=== PATIENT | male | born 1960 | race Caucasian/White ===

== ENCOUNTER → 2016-08-22 | Outpatient (CLI) | payer MEDICARE, MEDICAID ==
[~2016-08-22] MED LIST: ACTO45TA OR; AMAR1TAB PO; AMIT25TA PO; ASPI1TAB PO; ASPI81TA83; ATOR1TAB19 PO; BUPR1TAB17 PO; CENTTAB47 PO; COLC0.6T OR; COUM2.5T11 PO; ENAL20TA OR; ENAL20TA PO; FLEXERIL OR; HYDR25TAB PO; INSULANT SC; K-TA10TA OR; LEVOTAB10 PO; LORATADINE OR; MAGN500T2 OR; METF500T4 OR; MIRA3350 PO; MOBIC PO; NAPR500T2 PO; NEUR600T OR; NEXI40CA PO; NIAS1000 PO; OXYC10TA12 PO; OXYC10TA97 OR; PERC5TAB6 PO; PERC5TAB8 OR; PRIL20CA OR; PRIM50TA6 PO; TYLE325T5 PO; VITA1CAP7 PO; ZYLO300T4 PO
[2016-08-22 14:30] LABS: ALBUMIN 4.2 GM/DL (3.2-5.2); ALBUMIN/GLOBULIN RATIO 1.75 (1.00-1.93); ALKALINE PHOSPHATASE 103 U/L (45-117); ALT/SGPT 34 U/L (12-78); ANION GAP 8 MEQ/L (8-16); AST/SGOT 21 U/L (15-37); BILIRUBIN,TOTAL 0.4 MG/DL (0.2-1.0); BLOOD UREA NITROGEN 14 MG/DL (7-18); CALCIUM LEVEL 9.4 MG/DL (8.5-10.1); CARBON DIOXIDE LEVEL 27 MEQ/L (21-32); CHLORIDE LEVEL 101 MEQ/L (98-107); CHOLESTEROL LEVEL 128 MG/DL (<200); CREATININE FOR GFR 1.28 MG/DL (0.70-1.30); GLOMERULAR FILTRATION RATE > 60.0 (>56); GLUCOSE, FASTING 220 MG/DL (70-105); POTASSIUM SERUM 4.8 MEQ/L (3.5-5.1); SODIUM LEVEL 136 MEQ/L (136-145); TOTAL PROTEIN 6.6 GM/DL (6.4-8.2); TRIGLYCERIDES LEVEL 469 MG/DL (<150); URIC ACID 6.1 MG/DL (3.5-7.2)
== END ==
LOC: M LAB 13:14
PROVIDERS: ATTEND Emergency Medicine
DX: E11.40 Type 2 diabetes mellitus with diabetic neuropathy, unspecified (principal); I10 Essential (primary) hypertension; E78.5 Hyperlipidemia, unspecified; E55.9 Vitamin D deficiency, unspecified; M10.9 Gout, unspecified

== ENCOUNTER 2016-12-14 13:35 | Inpatient (IN) | payer MEDICARE, MEDICAID ==
[~2016-12-14] VITALS: Ht 195.6 cm; Wt 131.7 kg
[~2016-12-14 13:35] MED LIST changes: +ASPI81TA85 PO; -BUPR1TAB17 PO; +BUPR1TAB53 PO; +BYDU1INJ SC; +CELE1CAP9 PO; -COUM2.5T11 PO; +COUM2.5T17 PO; +HYDR12.55 PO; +INVO300T PO; +METF500T4 PO; -NAPR500T2 PO; +NAPR500T3 PO; +OXYC15TA76 PO; +OXYC60TA8 PO; +PERC5TAB12 PO; -PERC5TAB6 PO
[2016-12-14] MEDS ORDERED: OXYC15TA76 PO (13:51)
[2016-12-14] MEDS ORDERED: MORPHINE 4 MG/ML 1ML SYRINGE IV ONE (14:30)
[2016-12-14 15:12] LABS: BASO # 0.1 K/mm3 (0.0-0.2); BASO % 0.4 % (0.0-1.0); EOS # 0.2 K/mm3 (0.0-0.50); EOS % 1.2 % (0.0-3.0); LARGE UNSTAINED CELL # 0.5 K/mm3 (0.0-0.4); LARGE UNSTAINED CELL % 2.8 % (0.0-4.0); LYMPH # 1.3 K/mm3 (1.5-4.5); LYMPH % 7.4 % (24.0-44.0); MEAN CORPUSCULAR HEMOGLOBIN 28.2 pg (27.0-33.0); MEAN CORPUSCULAR HGB CONC 33.3 g/dl (32.0-36.5); MEAN CORPUSCULAR VOLUME 84.6 fl (80.0-96.0); MONO # 0.9 K/mm3 (0.0-0.8); MONO % 5.4 % (0.0-5.0); NEUTROPHILS # 13.9 K/mm3 (1.8-7.7); NEUTROPHILS % 82.8 % (36.0-66.0); PLATELET COUNT, AUTOMATED 531 k/mm3 (150-450); RED CELL DISTRIBUTION WIDTH 16.5 % (11.5-14.5); WHITE BLOOD COUNT 16.8 K/mm3 (4.0-10.0)
[2016-12-14 15:31] LABS: CREATININE FOR GFR 2.31 MG/DL (0.70-1.30); ERYTHROCYTE SEDIMENTATION RATE 56 mm/hr (0-20); GLOMERULAR FILTRATION RATE 31.3 (>56); POTASSIUM SERUM 3.4 MEQ/L (3.5-5.1)
[2016-12-14] MEDS ORDERED: CEFTAROLINE FOSAMIL 600 MG in D5W MINI-BAG PLUS 50 ML IV ONE (16:15)
[2016-12-14] MEDS ORDERED: PIPERACILLIN/TAZOBACTAM SOD 3.375 GM in D5W MINI-BAG PLUS 50 ML IV ONE (16:15)
[2016-12-14 16:45] LABS: FREE T4 1.59 NG/DL (0.76-1.46)
[2016-12-14] MEDS ORDERED: METF10004 PO (16:59)
[2016-12-14] MEDS ORDERED: OXYC10TA12 PO (16:59)
[2016-12-14] MEDS ORDERED: HYDR25TAB PO (16:59)
[2016-12-14] MEDS ORDERED: GLIM4TAB PO (16:59)
[2016-12-14] MEDS ORDERED: DEXTROSE 50% 50 ML SYRINGE IV PRN (18:30)
[2016-12-14] MEDS ORDERED: GLUCOSE 4 GM CHEW TABLET PO PRN (18:30)
[2016-12-14] MEDS ORDERED: ONDANSETRON 4MG/2ML VIAL (J2405) IV PRN (18:30)
[2016-12-14] MEDS ORDERED: GLUCAGON FOR INJ 1 MG VIAL (J1610) SC PRN (18:30)
--- NOTE | 2016-12-14 19:01 | HPEPDOC ---
General Date of Admission 12/14/16 Chief Complaint The patient is a 56-year-old male Presented to the ER with left foot pain after he stepped on a wire hayder. History of Present Illness Patient is a 56 year old male with a PMHx of NIDDM2, HTN, DLP, Depression / Anxiety, Gout and Neuropathy who presented to the ER after he didnt have improvement of his left foot cellulitis. Patient noted that on he was working in the garage and had stepped on a medal hayder. He didnt notice until he heard the sound of metal scrapping on concrete. After that point he removed the metal hayder and soaked his foot in Epson salt. Over the next few days from Thursday to Thursday he had worsening of the pain. He noticed that the foot was red, swollen, tender and draining. He noticed that the pain was progressing up his leg up to his groin area. He noticed pain in his groin as well. Patient has noted that he has been having fever and chills at home, but never measured the temperature. He notes nausea and dry heaves, but no vomiting. He has had poor oral intake and constipation. He has tried taking Ibuprofen for the pain without any relief. He denies chest pain, shortness of breath, palpitations, or abdominal pain. Home Medications Scheduled (Celecoxib) 200 Mg Cap, 200 MG PO DAILY, (Reported) Allopurinol (Zyloprim) 300 Mg Tab, 300 MG PO DAILY, (Reported) Amitriptyline HCl (Amitriptyline HCl) 25 Mg Tab, 25 MG PO QHS, (Reported) Aspirin (Aspir-81) 81 Mg Tab, 81 MG PO DAILY, (Reported) Atorvastatin Calcium (Atorvastatin Calcium) 10 Mg Tab, 10 MG PO QHS, (Reported) Bupropion HCl (Bupropion HCl ER) 150 Mg Tab, 150 MG PO DAILY, (Reported) Canagliflozin (Invokana) 300 Mg Tab, 300 MG PO DAILY, (Reported) Cholecalciferol (Vitamin D3 Maximum Streng) 5,000 Unit Cap, 5,000 UNIT PO DAILY, (Reported) Enalapril Maleate (Enalapril Maleate) 20 Mg Tab, 20 MG PO DAILY, (Reported) Esomeprazole Magnesium Trihydr (Nexium) 40 Mg Cap, 40 MG PO DAILY, (Reported) Glimepiride (Glimepiride) 4 Mg Tab, 4 MG PO DAILY, (Reported) Hydrochlorothiazide (Hydrochlorothiazide) 25 Mg Tab, 25 MG PO DAILY, (Reported) Levocetirizine Hydrochloride (Levocetirizine Dihydrochl) 5 Mg Tab, 5 MG PO DAILY , (Reported) Metformin Hydrochloride (Metformin HCl) 1,000 Mg Tab, 1,000 MG PO BID, (Reported ) Multivitamins (Centrum) 1 Tab Tab, 1 TAB PO DAILY, (Reported) Niacin (Niaspan) 1,000 Mg Tab, 1,000 MG PO QHS, (Reported) Oxycodone HCl (Oxycontin) 60 Mg Tab, 60 MG PO BID, (Reported) Primidone (Primidone) 50 Mg Tab, 200 MG PO BID, (Reported) Scheduled PRN Oxycodone HCl (Oxycodone HCl) 10 Mg Tab, 10 MG PO Q4H PRN for PAIN, (Reported) Allergies Coded Allergies: Povidone Iodine (Verified Allergy, Unknown, 10/06/16) Past Medical History Medical History NIDDM2, HTN, DLP, Depression . Anxiety, Gout and Neuropathy Surgical History Right toe amputation (03/2016) Right knee replacement (2017) Family History - Non-contributory Social History - Denies the use of alcohol or tobacco; Smokes marijuana occasionally - Denies recent travel or sick contacts - Lives alone - Disability Review of Symptoms Other systems Constitutional: Unsure of weight loss, Reports poor appetite, Recent trauma with metal hayder Eyes: No visual changes or eye pain Ears, Nose, Throat: Denies nose bleeds, or difficulty swallowing Cardiovascular: Denies chest pain, sweating, or orthopnea Respiratory: Denies cough, wheezing, or shortness of breath GI: Positive nausea, No vomiting, abdominal pain, diarrhea or constipation : Denies pain with urination or frequency Musculoskeletal: Denies joint pain or swelling Neuro / Psych: Denies muscle weakness or sensory loss Skin: No skin rashes noted All other review of systems negative; otherwise stated in history of present illness Screening: - Colonoscopy never done Vital Signs - Vitals: BP 123/63, HR 102, RR 18, Sat 96%RA, Temp 97.4F - General: Lying in bed, No acute distress, Speaking in full sentences, AAOx3 - HEENT: NC, AT, PERRLA, EOMI - CVS: RRR, +S1S2, - Lungs: Fair air entry bilaterally, No appreciable wheezing / rhonchi / crackles - Abdomen: Soft, Non-distended, Non-tender, + Bowel sounds x 4, Obese - Extremities: No lower extremity edema - Neuro: No focal motor or sensory deficit - Skin: Left foot in dressing, surrounding erythema, warmth, tenderness and drainage Laboratory Data Labs 24H Laboratory Tests 2 12/14/16 14:59: White Blood Count 16.8H, Red Blood Count 5.42, Hemoglobin 15.3, Hematocrit 45.8 , Mean Corpuscular Volume 84.6, Mean Corpuscular Hemoglobin 28.2, Mean Corpuscular Hemoglobin Concent 33.3, Red Cell Distribution Width 16.5H, Platelet Count 531H, Neutrophils (%) (Auto) 82.8H, Lymphocytes (%) (Auto) 7.4L, Monocytes (%) (Auto) 5.4H, Eosinophils (%) (Auto) 1.2, Basophils (%) (Auto) 0.4 , Neutrophils # (Auto) 13.9H, Lymphocytes # (Auto) 1.3L, Monocytes # (Auto) 0.9H , Eosinophils # (Auto) 0.2, Basophils # (Auto) 0.1, Large Unclassified Cells % 2.8, Large Unclassified Cells # 0.5H, Erythrocyte Sedimentation Rate 56H, Anion Gap 9, Glomerular Filtration Rate 31.3L, Osmolality 294, Blood Urea Nitrogen 42H , Creatinine 2.31H, Sodium Level 126L, Potassium Level 3.4L, Chloride Level 89L , Carbon Dioxide Level 28, Calcium Level 10.0, C-Reactive Protein, Quantitative 18.10H, Thyroid Stimulating Hormone (TSH) 0.788, Free Thyroxine 1.59H 12/14/16 16:23: Urine Random Osmolality 483L, Urine Random Creatinine 229.0, Urine Random Sodium 19 CBC/BMP Laboratory Tests 12/14/16 14:59 Red Blood Count 5.42, Mean Corpuscular Volume 84.6, Mean Corpuscular Hemoglobin 28.2, Mean Corpuscular Hemoglobin Concent 33.3, Red Cell Distribution Width 16.5 H, Neutrophils (%) (Auto) 82.8 H, Lymphocytes (%) (Auto) 7.4 L, Monocytes ( %) (Auto) 5.4 H, Eosinophils (%) (Auto) 1.2, Basophils (%) (Auto) 0.4, Neutrophils # (Auto) 13.9 H, Lymphocytes # (Auto) 1.3 L, Monocytes # (Auto) 0.9 H, Eosinophils # (Auto) 0.2, Basophils # (Auto) 0.1, Calcium Level 10.0 Microbiology Microbiology 12/14/16 Blood Culture, Received Pending 12/14/16 Blood Culture, Received Pending 12/14/16 Gram Stain, Received Pending 12/14/16 Wound Culture, Received Pending Plan / VTE VTE Prophylaxis Ordered?: Yes Plan Plan Left foot cellulitis, possible osteomyelitis after recent trauma with puncture with metal hayder - Presented to ER after he failed to improve at home - Punctured on and then began to have fever / chills and progressing cellulitis - Physical with left inguinal lymphadenopathy, cellulitis of left foot - Elevated WBC, Will check lactic acid level - Elevated ESR / CRP - Will get MRI of foot to evaluate for osteomyelitis - Will start Vancomycin and Zosyn - Dr. Izaguirre has evaluated patient in ER; has provided bedside debridement Hyponatremia; mild likely 2/2 hypotonic hypovolemia - UOsm low, U Na of 19; FENa of 0.2% - will hold hydrochlorothiazide - c/w IV fluid hydration - Will check BNP at 10PM Hypokalemia - will supplement Acute kidney injury likely 2/2 pre-renal etiology, less likely intra-renal etiology - FENa of 0.2% - Avoid nephrotoxic medications - Will give IV fluid hydration with NS NIDDM2 - c/w ISS HTN - will hold enalapril (re: JANIE) and hydrochlorthiazide (re: low Na) - will start amlodipine 5mg daily DLP - c/w atorvastatin Depression / Anxiety - c/w Bupropion Gout - c/w allopurinol Neuropathy GERD - c/w Esomeprazole DVT prophylaxis - Will start Heparin BENNETT RAYO MD Dec 14, 2016 19:01
[2016-12-14] MEDS: ACETAMINOPHEN TAB 650MG DOSE (2X325MG) PO PRN (19:07)
[2016-12-14] MEDS ORDERED: POTASSIUM CHLORIDE 10 MEQ SR TABLET PO ONE (20:00)
[2016-12-14] MEDS ORDERED: VANCOMYCIN HCL 1,000 MG, VIAL MATE ADAPTER 1 EACH in D5W 250 ML IV ONE (20:00)
--- NOTE | 2016-12-14 20:55 | REP ---
LEFT FOOT SERIES: Four views of the left foot were performed. There is a puncture wound in the left heel. A tiny amount of air is seen inferior to the calcaneus in the soft tissues. 2 mm density in a subcutaneous location in the soft tissue of the heel may represent a tiny soft tissue foreign body, otherwise chronic changes are seen in the bones. There are old fractures of the 4th and 5th proximal phalanges. Moderate degenerative changes are seen at the first metatarsal phalangeal joint with subchondral sclerosis and large spurs. Intertarsal joint and tarsal sized metatarsal joint degenerative change is seen. There is mild inferior calcaneal spurring. IMPRESSION: A tiny amount of air in the soft-tissues of the heel. Possible tiny 2 mm subcutaneous foreign body in the soft tissues of the heel. Chronic degenerative changes as above with old fractures of the 4th and 5th proximal phalanges. Signed by Sesar Gatica MD 12/15/2016 01:06 P
[2016-12-14] MEDS ORDERED: oxyCODONE 20 MG CR TAB PO SCH (21:00)
--- NOTE | 2016-12-14 22:10 | REPUSA ---
Clinical statement: rule out osteomyelitis. Technique: Multiecho multiplanar MRI images of the left foot were obtained without administration of contrast. Comparison: none. Findings: There are numerous heterogeneous low intensity lesions throughout the calcaneus on T1 weigh zoey imaging, which demonstrate surrounding edema on T2 weighted imaging. Surrounding soft tissue agustin a is noted, without a focal loculated fluid collection. The articular cartilage as well maintained. T here is no evidence of a joint effusion. The surrounding musculature is within normal limits. Impression: Signal abnormality within the calcaneus is highly suspicious for osteomyelitis. Surroundi ng soft tissue inflammation is suspicious for cellulitis. A report will be called by our napping machine operator regarding these findings.
[2016-12-14 22:45] VITALS: BP 108/58
[2016-12-14] MEDS: HumaLOG INSULIN (NovoLOG) PER UNIT SC SCH (22:55)
[2016-12-14] MEDS: HEPARIN SOD (PORCINE) 5000 UNITS/ML VIAL SC SCH (23:18)
[2016-12-14] MEDS: AMITRIPTYLINE 25 MG TAB PO SCH (23:18)
[2016-12-14] MEDS: ATORVASTATIN 10 MG TAB PO SCH (23:18)
[2016-12-14] MEDS: NS 1,000 ML IV SCH (23:19)
[2016-12-14] MEDS: PRIMIDONE 50 MG TAB PO SCH (23:24)
[2016-12-15] MEDS: PIPERACILLIN/TAZOBACTAM SOD 3.375 GM in D5W MINI-BAG PLUS 50 ML IV SCH ×4 (00:06→23:01)
[2016-12-15] MEDS: oxyCODONE 15 MG CR TAB PO SCH ×3 (00:06→20:46)
--- NOTE | 2016-12-15 00:20 | REPUSA ---
CLINICAL HISTORY: Edema. COMMENTS: Real time sonography with duplex doppler of the left lower extremity was performed with attention to the major deep venous structures. Evaluation reveals the left common femoral, superficial femoral and popliteal veins to be completely compressible without intraluminal thrombus. There is normal spontaneous phasic flow and augmentation. The greater saphenous/common femoral vein junction is patent. No reflux was noted. IMPRESSION: No evidence of DVT in left lower extremity.. Thank you for your kind referral of this patient.
--- NOTE | 2016-12-15 00:38 | PHACANCOPD ---
PHARMACY VANCOMYCIN DOSING Pt Demographics Demographics Patient Age:56 , Weight:134.090 , Gender: male Adjusted Body Weight Date: 12/15/16, Adjusted Body Weight: [107] Kg Vancomycin Vancomycin indication: L.FOOT CELLULITIS([facility]SA COVERAGE) Vancomycin Target Ranges: 15-20 mcg/ml Vancomycin Load Y/N: No Load Dose Date Time Vancomycin Load Dose: Date: Time: Vancomycin Dose Date: 12/15/16. Current Vancomycin Dose: [1 GM IV Q12@06] Intermittent Dosing?: No Labs Labs Laboratory Tests 12/14/16 14:59 Red Blood Count 5.42, Mean Corpuscular Volume 84.6, Mean Corpuscular Hemoglobin 28.2, Mean Corpuscular Hemoglobin Concent 33.3, Red Cell Distribution Width 16.5 H, Neutrophils (%) (Auto) 82.8 H, Lymphocytes (%) (Auto) 7.4 L, Monocytes ( %) (Auto) 5.4 H, Eosinophils (%) (Auto) 1.2, Basophils (%) (Auto) 0.4, Neutrophils # (Auto) 13.9 H, Lymphocytes # (Auto) 1.3 L, Monocytes # (Auto) 0.9 H, Eosinophils # (Auto) 0.2, Basophils # (Auto) 0.1, Calcium Level 10.0 Micro Microbiology 12/14/16 Blood Culture, Received Pending 12/14/16 Blood Culture, Received Pending 12/14/16 Gram Stain, Received Pending 12/14/16 Wound Culture, Received Pending Creatinine Clearance Date:12/15/16. Creatinine Clearance: [54].CALCULATED Pending Labs VANCOMYCIN TROUGH DUE 12/15@1700 Assessment and Plan Maintaining Current Dose?: Yes Reason for dose change: No Dose Change Pharmacist Note Pharmacist Note Date: 12/15/16. Pharmacist note:56 YOM :134 KG;77" SCR=2.31(CALCULATED crcl=54) Admitted w/l foot cellulitis/possible osteomyelitis following puncture wound/ cellulitis.treated w/pip/tazo 3.375 IV Q8H and Vancomycin per Pharmacy consult; gave Vanco 1 GM @2230 12/14,then will continue with Vancomycin 1 GM IV Q12H; first trough is ordered for 12/15@1700;will continue to follow levels and labs SIMIN [facility] Dec 15, 2016 00:38
[2016-12-15 05:25] VITALS: BP 91/53
[2016-12-15 05:45] LABS: BASO % 0.3 % (0.0-1.0); EOS # 0.4 K/mm3 (0.0-0.50); EOS % 2.2 % (0.0-3.0); LARGE UNSTAINED CELL # 0.5 K/mm3 (0.0-0.4); LARGE UNSTAINED CELL % 3.3 % (0.0-4.0); LYMPH # 2.4 K/mm3 (1.5-4.5); LYMPH % 11.9 % (24.0-44.0); MEAN CORPUSCULAR HEMOGLOBIN 28.5 pg (27.0-33.0); MEAN CORPUSCULAR HGB CONC 34.1 g/dl (32.0-36.5); MEAN CORPUSCULAR VOLUME 83.4 fl (80.0-96.0); MONO % 6.3 % (0.0-5.0); NEUTROPHILS % 75.9 % (36.0-66.0); PLATELET COUNT, AUTOMATED 475 k/mm3 (150-450); RED CELL DISTRIBUTION WIDTH 16.7 % (11.5-14.5); WHITE BLOOD COUNT 15.8 K/mm3 (4.0-10.0)
[2016-12-15 06:00] VITALS: BP 105/58
[2016-12-15 06:03] LABS: ALBUMIN 2.4 GM/DL (3.2-5.2); ALBUMIN/GLOBULIN RATIO 0.67 (1.00-1.93); BILIRUBIN,TOTAL 1.1 MG/DL (0.2-1.0); CALCIUM LEVEL 9.4 MG/DL (8.5-10.1); CREATININE FOR GFR 3.12 MG/DL (0.70-1.30); GLOMERULAR FILTRATION RATE 22.1 (>56); MAGNESIUM LEVEL 2.5 MG/DL (1.8-2.4); POTASSIUM SERUM 3.5 MEQ/L (3.5-5.1)
[2016-12-15] MEDS: VANCOMYCIN HCL 1,000 MG, VIAL MATE ADAPTER 1 EACH in D5W 250 ML IV SCH ×2 (06:27→18:00)
[2016-12-15] MEDS: HEPARIN SOD (PORCINE) 5000 UNITS/ML VIAL SC SCH ×3 (06:27→21:54)
[2016-12-15] MEDS: ACETAMINOPHEN TAB 650MG DOSE (2X325MG) PO PRN ×2 (06:28→18:13)
[2016-12-15] MEDS ORDERED: ALLOPURINOL 300 MG TAB PO SCH (09:00)
[2016-12-15] MEDS: amLODIPine 5 MG TAB PO SCH (09:00)
[2016-12-15] MEDS: HumaLOG INSULIN (NovoLOG) PER UNIT SC SCH ×4 (09:09→20:39)
[2016-12-15] MEDS: PRIMIDONE 50 MG TAB PO SCH ×2 (09:14→20:47)
[2016-12-15] MEDS: ASPIRIN 81 MG ENTERIC TAB PO SCH (09:15)
[2016-12-15] MEDS: PANTOPRAZOLE 40MG TAB (PROTONIX) PO SCH (09:15)
[2016-12-15] MEDS: VITAMIN D 1,000 INTERNATIONAL UNITS TABLET PO SCH (09:15)
--- NOTE | 2016-12-15 13:37 | CR ---
DATE OF CONSULTATION: 12/14/2016 Patient presents to the emergency room with complaints of infection in wounds to his left foot. He states on he was in the garage working on a vehicle and noticed that he had blood dripping. He states he had stepped on a metal wire, apparently multiple times, did not have much pain at the time due to his neuropathy, but states that over the last few days has noticed increasing pain, fevers, and chills. He presented to the emergency room today for evaluation. PAST MEDICAL HISTORY: Significant for diabetes with peripheral neuropathy. History of gout. Benign prostatic hypertrophy (BPH). Hypertension. Hyperlipidemia. Acid reflux. Osteoarthritis (OA). History of tobacco use. ALLERGIES: 1. BETADINE. PAST SURGICAL HISTORY: Tonsillectomy. Hernia repair. History of great toe amputation on his right side. REVIEW OF SYSTEMS: Patient admits to having fevers and chills outpatient. He has been afebrile since presenting to the emergency room. Current temperature was 97.4, pulse was 102, respiratory rate 18, blood pressure 123/64, pulse oximetry 96% on room air. LABS ON ADMISSION: White blood cells was 16.8, ESR 56, CRP is 18.10. X-rays were taken. There was no significant signs of any bony erosion. No obvious foreign bodies in the deep space. No soft tissue gas noted. Question foreign body at the surface of the skin. LOWER EXTREMITY EXAMINATION: Pulses are palpable. There is erythema extending from the left heel up to approximately the posterior ankle with tenderness with deep squeeze. He does have diminished sensation to his foot. On debridement of the punctate wounds, no purulence is noted. There are some small stones and likely sock debris in the superficial portion of the skin. No malodor, no necrosis, no crepitance is noted. ASSESSMENT: This is a 56-year-old diabetic male with cellulitis of the left heel following puncture wounds. TREATMENT: Patient is presently on Teflaro and Zosyn. Would continue present antibiotics. A culture was taken in the emergency room. Will await speciation part and antibiotic de-escalation. He is planned for admission to the hospitalist service. Will continue to follow. If the patient does not improve, may consider MRI to rule out deep space infection.
[2016-12-15 14:00] VITALS: BP 122/65
--- NOTE | 2016-12-15 14:11 | IPNPDOC ---
Subjective Date Seen The patient was seen on 12/15/16. Subjective Chief Complaint/HPI The patient is a 56-year-old male admitted with a reason for visit of Acute Kidney Injury,Cellulitis Of Left Foot. Events since last encounter no new complaints, does not have any pain in the foot, no fever or chills, no nausea or vomiting or diarrhea, no abdominal pain , no chest pain or SOb Objective Physical Examination General Exam: Positive: Alert, Cooperative, No Acute Distress Eye Exam: Positive: PERRLA, Conjunctiva & lids normal, EOMI, Negative: Sclera icteric ENT Exam: Positive: Atraumatic, Mucous membr. moist/pink, Pharynx Normal Neck Exam: Positive: Supple, Negative: JVD, thyromegaly Chest Exam: Positive: Clear to auscultation, Normal air movement Heart Exam: Positive: Rate Normal, Regular Rhythm, Normal S1, Normal S2, Negative: Murmurs, Rubs Abdomen Exam: Positive: Normal bowel sounds, Soft, Negative: Tenderness, Hepatospenomegaly Extremity Exam: Positive: Normal pulses, Negative: Clubbing, Cyanosis, Edema Skin Exam: Positive: Lesion (left heel puncture wound with erythema extending to the back of leg.) Assessment /Plan Problems (1) Puncture wound of left foot Status: Acute Problem Text: continue antibiotics , await culture from the wound. (2) Cellulitis of left foot Status: Acute Problem Text: continue zosyn and vancomycin (3) Osteomyelitis Status: Acute Problem Text: continue with antibiotics will discuss with Dr Izaguirre may need surgery (4) Acute kidney injury Status: Acute Problem Text: awaiting renal and bladder ultrasound. will continue with ivf. (5) Hyperlipidemia (6) Gout (7) Hyponatremia Status: Acute Problem Text: stable , possibly due to deficit will continue with ivf. (8) SRAAH (obstructive sleep apnea) Status: Chronic Problem Text: has been prescribed CPAP at home does not use it here having nocturnal desaturations will use oxygen supplementation during sleep and naps. (9) Diabetic neuropathy Status: Chronic (10) Diabetes Status: Chronic (11) Hypertension Status: Chronic Plan/VTE VTE Prophylaxis Ordered?: Yes VS, I&O, 24H, Fishbone Vital Signs/I&O Vital Signs Date Time Temp Pulse Resp B/P (MAP) Pulse Ox O2 Delivery O2 Flow Rate FiO2 12/15/16 09:14 18 Room Air 12/15/16 09:00 80 108/58 12/15/16 06:00 91 12/15/16 05:25 97.4 I&O- Last 24 Hours up to 6 AM 12/15/16 06:00 Intake Total 1060 ml Output Total 0 ml Balance 1060 ml Laboratory Data 24H LABS Laboratory Tests 2 12/14/16 14:59: White Blood Count 16.8H, Red Blood Count 5.42, Hemoglobin 15.3, Hematocrit 45.8 , Mean Corpuscular Volume 84.6, Mean Corpuscular Hemoglobin 28.2, Mean Corpuscular Hemoglobin Concent 33.3, Red Cell Distribution Width 16.5H, Platelet Count 531H, Neutrophils (%) (Auto) 82.8H, Lymphocytes (%) (Auto) 7.4L, Monocytes (%) (Auto) 5.4H, Eosinophils (%) (Auto) 1.2, Basophils (%) (Auto) 0.4 , Neutrophils # (Auto) 13.9H, Lymphocytes # (Auto) 1.3L, Monocytes # (Auto) 0.9H , Eosinophils # (Auto) 0.2, Basophils # (Auto) 0.1, Large Unclassified Cells % 2.8, Large Unclassified Cells # 0.5H, Erythrocyte Sedimentation Rate 56H, Anion Gap 9, Glomerular Filtration Rate 31.3L, Osmolality 294, Lactic Acid Level 2.1*H , Blood Urea Nitrogen 42H, Creatinine 2.31H, Sodium Level 126L, Potassium Level 3.4L, Chloride Level 89L, Carbon Dioxide Level 28, Calcium Level 10.0, C- Reactive Protein, Quantitative 18.10H, B-Type Natriuretic Peptide 19.1, Thyroid Stimulating Hormone (TSH) 0.788, Free Thyroxine 1.59H 12/14/16 16:23: Urine Random Osmolality 483L, Urine Random Creatinine 229.0, Urine Random Sodium 19 12/15/16 00:19: Lactic Acid Followup at 4 Hours 1.1 12/15/16 05:27: White Blood Count 15.8H, Red Blood Count 4.57, Hemoglobin 13.0#L, Hematocrit 38.2L, Mean Corpuscular Volume 83.4, Mean Corpuscular Hemoglobin 28.5, Mean Corpuscular Hemoglobin Concent 34.1, Red Cell Distribution Width 16.7H, Platelet Count 475H, Neutrophils (%) (Auto) 75.9H, Lymphocytes (%) (Auto) 11.9L , Monocytes (%) (Auto) 6.3H, Eosinophils (%) (Auto) 2.2, Basophils (%) (Auto) 0.3, Neutrophils # (Auto) 12.0H, Lymphocytes # (Auto) 2.4, Monocytes # (Auto) 1.0H, Eosinophils # (Auto) 0.4, Basophils # (Auto) 0.0, Large Unclassified Cells % 3.3, Large Unclassified Cells # 0.5H, Anion Gap 8, Glomerular Filtration Rate 22.1L, Blood Urea Nitrogen 49H, Creatinine 3.12H, Sodium Level 127L, Potassium Level 3.5, Chloride Level 94L, Carbon Dioxide Level 25, Calcium Level 9.4, C-Reactive Protein, Quantitative 18.30H, Aspartate Amino Transf (AST/ SGOT) 49H, Alanine Aminotransferase (ALT/SGPT) 51, Alkaline Phosphatase 237H, Total Bilirubin 1.1H, Total Protein 6.0L, Albumin 2.4L, Magnesium Level 2.5H, Albumin/Globulin Ratio 0.67L CBC/BMP Laboratory Tests 12/14/16 14:59 Red Blood Count 5.42, Mean Corpuscular Volume 84.6, Mean Corpuscular Hemoglobin 28.2, Mean Corpuscular Hemoglobin Concent 33.3, Red Cell Distribution Width 16.5 H, Neutrophils (%) (Auto) 82.8 H, Lymphocytes (%) (Auto) 7.4 L, Monocytes ( %) (Auto) 5.4 H, Eosinophils (%) (Auto) 1.2, Basophils (%) (Auto) 0.4, Neutrophils # (Auto) 13.9 H, Lymphocytes # (Auto) 1.3 L, Monocytes # (Auto) 0.9 H, Eosinophils # (Auto) 0.2, Basophils # (Auto) 0.1, Calcium Level 10.0 12/15/16 05:27 Red Blood Count 4.57, Mean Corpuscular Volume 83.4, Mean Corpuscular Hemoglobin 28.5, Mean Corpuscular Hemoglobin Concent 34.1, Red Cell Distribution Width 16.7 H, Neutrophils (%) (Auto) 75.9 H, Lymphocytes (%) (Auto) 11.9 L, Monocytes (%) (Auto) 6.3 H, Eosinophils (%) (Auto) 2.2, Basophils (%) (Auto) 0.3, Neutrophils # (Auto) 12.0 H, Lymphocytes # (Auto) 2.4, Monocytes # (Auto) 1.0 H , Eosinophils # (Auto) 0.4, Basophils # (Auto) 0.0, Calcium Level 9.4, Aspartate Amino Transf (AST/SGOT) 49 H, Alanine Aminotransferase (ALT/SGPT) 51, Alkaline Phosphatase 237 H, Total Bilirubin 1.1 H, Total Protein 6.0 L, Albumin 2.4 L Microbiology Microbiology 12/14/16 Blood Culture, Received Pending 12/14/16 Blood Culture, Received Pending 12/14/16 Gram Stain - Final, Resulted 12/14/16 Wound Culture, Resulted Pending GRICELDA OBANDO MD Dec 15, 2016 14:11
[2016-12-15] MEDS: buPROPion **XL** TABLET 150MG (WELLBUTRIN XL) PO SCH (14:49)
--- NOTE | 2016-12-15 15:35 | REP ---
Renal ultrasound. Hour decreased urinary output: Comparison is 08/22/2010. The kidneys are normal size. The right kidney measures 11.4 x 6.4 x 7.0 cm. Left kidney measures 4.2 x 6.6 x 6.3 cm. Renal cortical echogenicity is normal bilaterally. There is a 3.8 cm right renal upper pole cyst. There are no other renal cysts. There are no calculi, masses or hydronephrosis on the right on the left. Impression: No hydronephrosis. 3.8 cm right renal upper pole cyst. No renal calculi or masses. The bladder is nondistended and cannot be evaluated at this time. Signed by Sesar Ashton MD 12/15/2016 03:26 P
--- NOTE | 2016-12-15 17:33 | IPN ---
DATE: 12/15/2016 Patient seen and examined at bedside. He states his foot feels about the same, still having pain. Denies any other complaints. Maximum temperature (T max) was 101.4 at 1856 hours yesterday, presently 97.4. Labs were reviewed. White blood cell count is 15.8. CRP remains elevated at 18.3. Gram stain showed no organisms, await growth. Imaging reviewed. MRI reveals numerous lesions in the calcaneus with surrounding edema, suggestive of osteomyelitis. No signs of abscess or soft tissue gas. Lower extremity examination: Persisting erythema and edema to the left foot. Plantar wounds are inspected. No purulence is noted. No crepitations. ASSESSMENT: A 56-year-old male with cellulitis and probable osteomyelitis following puncture wound. PLAN: Continue present antibiotics. Await culture results. He is presently receiving Zosyn and vancomycin. Will start Hibiclens soaks and gauze dressing to foot daily. Will assess tomorrow. The patient will probably need incision and drainage of this heel at which time will take deep cultures and bone biopsy. This will most likely be performed on Thursday. Following that, likely he will require 6 weeks of outpatient intravenous antibiotics.
[2016-12-15] MEDS: NS 1,000 ML IV SCH ×2 (17:49→21:53)
[2016-12-15 20:43] VITALS: BP 117/80
[2016-12-15] MEDS: SENOKOT S TAB PO SCH (20:46)
[2016-12-15] MEDS: ATORVASTATIN 10 MG TAB PO SCH (20:46)
[2016-12-15] MEDS: AMITRIPTYLINE 25 MG TAB PO SCH (20:47)
[2016-12-16] MEDS: HEPARIN SOD (PORCINE) 5000 UNITS/ML VIAL SC SCH ×3 (05:50→21:07)
[2016-12-16] MEDS: oxyCODONE 5MG TAB PO PRN ×2 (05:51→17:11)
[2016-12-16] MEDS: VANCOMYCIN HCL 1,000 MG, VIAL MATE ADAPTER 1 EACH in D5W 250 ML IV SCH ×2 (05:52→17:40)
[2016-12-16 06:00] VITALS: BP 131/75
[2016-12-16] MEDS: NS 1,000 ML IV SCH ×2 (06:24→13:22)
[2016-12-16 06:45] LABS: BASO # 0.1 K/mm3 (0.0-0.2); BASO % 0.4 % (0.0-1.0); EOS # 0.5 K/mm3 (0.0-0.50); EOS % 3.3 % (0.0-3.0); LARGE UNSTAINED CELL # 0.4 K/mm3 (0.0-0.4); LARGE UNSTAINED CELL % 2.2 % (0.0-4.0); LYMPH # 1.8 K/mm3 (1.5-4.5); LYMPH % 9.1 % (24.0-44.0); MEAN CORPUSCULAR HEMOGLOBIN 28.6 pg (27.0-33.0); MEAN CORPUSCULAR HGB CONC 33.3 g/dl (32.0-36.5); MEAN CORPUSCULAR VOLUME 85.9 fl (80.0-96.0); NEUTROPHILS # 12.7 K/mm3 (1.8-7.7); PLATELET COUNT, AUTOMATED 535 k/mm3 (150-450); RED CELL DISTRIBUTION WIDTH 16.9 % (11.5-14.5); WHITE BLOOD COUNT 16.1 K/mm3 (4.0-10.0)
[2016-12-16 07:15] LABS: ALBUMIN 2.4 GM/DL (3.2-5.2); ALBUMIN/GLOBULIN RATIO 0.65 (1.00-1.93); BILIRUBIN,TOTAL 0.8 MG/DL (0.2-1.0); CALCIUM LEVEL 8.7 MG/DL (8.5-10.1); CREATININE FOR GFR 2.88 MG/DL (0.70-1.30); GLOMERULAR FILTRATION RATE 24.3 (>56); MAGNESIUM LEVEL 2.7 MG/DL (1.8-2.4); POTASSIUM SERUM 3.8 MEQ/L (3.5-5.1); TOTAL PROTEIN 6.1 GM/DL (6.4-8.2)
[2016-12-16] MEDS: HumaLOG INSULIN (NovoLOG) PER UNIT SC SCH ×4 (08:55→21:09)
[2016-12-16] MEDS: VITAMIN D 1,000 INTERNATIONAL UNITS TABLET PO SCH (08:55)
[2016-12-16] MEDS: oxyCODONE 15 MG CR TAB PO SCH ×2 (08:59→21:08)
[2016-12-16] MEDS: ASPIRIN 81 MG ENTERIC TAB PO SCH (08:59)
[2016-12-16] MEDS: PRIMIDONE 50 MG TAB PO SCH ×2 (09:00→21:07)
[2016-12-16] MEDS: PANTOPRAZOLE 40MG TAB (PROTONIX) PO SCH (09:00)
[2016-12-16] MEDS: buPROPion **XL** TABLET 150MG (WELLBUTRIN XL) PO SCH (09:00)
[2016-12-16] MEDS: amLODIPine 5 MG TAB PO SCH (09:00)
[2016-12-16] MEDS: SENOKOT S TAB PO SCH ×2 (09:00→21:09)
[2016-12-16] MEDS: ALLOPURINOL 100 MG TAB PO SCH (09:00)
[2016-12-16] MEDS: PIPERACILLIN/TAZOBACTAM SOD 3.375 GM in D5W MINI-BAG PLUS 50 ML IV SCH ×3 (09:01→23:09)
[2016-12-16] MEDS: GLIMEPIRIDE 2 MG TAB PO SCH (10:33)
--- NOTE | 2016-12-16 11:11 | IPNPDOC ---
Subjective Date Seen The patient was seen on 12/16/16. Subjective Chief Complaint/HPI The patient is a 56-year-old male admitted with a reason for visit of Acute Kidney Injury,Cellulitis Of Left Foot. Events since last encounter no complaints this am except for soreness of the foot, no fever or chills, no chest pain or sob ,no abdominal pain , nausea or vomiting. Objective Physical Examination General Exam: Positive: Alert, Cooperative, No Acute Distress Eye Exam: Positive: PERRLA, Conjunctiva & lids normal, EOMI ENT Exam: Positive: Atraumatic, Mucous membr. moist/pink, Pharynx Normal Neck Exam: Positive: Supple Chest Exam: Positive: Clear to auscultation, Normal air movement Heart Exam: Positive: Rate Normal, Regular Rhythm, Normal S1, Normal S2 Abdomen Exam: Positive: Normal bowel sounds, Soft Extremity Exam: Positive: Normal pulses Skin Exam: Positive: Lesion Assessment /Plan Problems (1) Puncture wound of left foot Status: Acute Problem Text: continue antibiotics , await culture from the wound. (2) Cellulitis of left foot Status: Acute Problem Text: continue zosyn and vancomycin (3) Osteomyelitis Status: Acute Problem Text: continue with antibiotics will have some debridement and bone biopsy tomorrow will probably need 6 weeks of antibiotics. (4) Acute kidney injury Status: Acute Response to Treatment: Improving Problem Text: renal and bladder ultrasound no obstruction or urinary retention. will continue with ivf. (5) Hyperlipidemia Status: Chronic (6) Gout Status: Chronic (7) Hyponatremia Status: Acute Problem Text: stable , possibly due to deficit will continue with ivf. (8) SARAH (obstructive sleep apnea) Status: Chronic Problem Text: has been prescribed CPAP at home does not use it here having nocturnal desaturations will use oxygen supplementation during sleep and naps. (9) Diabetic neuropathy Status: Chronic (10) Diabetes Status: Chronic (11) Hypertension Status: Chronic Plan/VTE VTE Prophylaxis Ordered?: Yes VS, I&O, 24H, Fishbone Vital Signs/I&O Vital Signs Date Time Temp Pulse Resp B/P (MAP) Pulse Ox O2 Delivery O2 Flow Rate FiO2 12/16/16 09:00 72 108/48 12/16/16 08:59 18 Room Air 12/16/16 06:21 2.0 12/16/16 06:00 97.6 95 I&O- Last 24 Hours up to 6 AM 12/16/16 06:00 Intake Total 1750 ml Output Total 1475 ml Balance 275 ml Laboratory Data 24H LABS Laboratory Tests 2 12/15/16 11:27: Bedside Glucose (Misc Panel) 194H 12/15/16 16:25: Bedside Glucose (Misc Panel) 221H 12/15/16 16:56: Vancomycin Level Trough 14.5 12/15/16 20:31: Bedside Glucose (Misc Panel) 232H 12/16/16 06:28: White Blood Count 16.1H, Red Blood Count 4.60, Hemoglobin 13.2L, Hematocrit 39.5L, Mean Corpuscular Volume 85.9, Mean Corpuscular Hemoglobin 28.6, Mean Corpuscular Hemoglobin Concent 33.3, Red Cell Distribution Width 16.9H, Platelet Count 535H, Neutrophils (%) (Auto) 79.0H, Lymphocytes (%) (Auto) 9.1L, Monocytes (%) (Auto) 6.0H, Eosinophils (%) (Auto) 3.3H, Basophils (%) (Auto) 0.4 , Neutrophils # (Auto) 12.7H, Lymphocytes # (Auto) 1.8, Monocytes # (Auto) 1.0H , Eosinophils # (Auto) 0.5, Basophils # (Auto) 0.1, Large Unclassified Cells % 2.2, Large Unclassified Cells # 0.4, Anion Gap 8, Glomerular Filtration Rate 24.3L, Blood Urea Nitrogen 51H, Creatinine 2.88H, Sodium Level 127L, Potassium Level 3.8, Chloride Level 94L, Carbon Dioxide Level 25, Calcium Level 8.7, Aspartate Amino Transf (AST/SGOT) 35, Alanine Aminotransferase (ALT/SGPT) 48, Alkaline Phosphatase 281H, Total Bilirubin 0.8, Total Protein 6.1L, Albumin 2.4L , Magnesium Level 2.7H, C-Reactive Protein, Quantitative 14.20H, Albumin/ Globulin Ratio 0.65L CBC/BMP Laboratory Tests 12/16/16 06:28 Red Blood Count 4.60, Mean Corpuscular Volume 85.9, Mean Corpuscular Hemoglobin 28.6, Mean Corpuscular Hemoglobin Concent 33.3, Red Cell Distribution Width 16.9 H, Neutrophils (%) (Auto) 79.0 H, Lymphocytes (%) (Auto) 9.1 L, Monocytes ( %) (Auto) 6.0 H, Eosinophils (%) (Auto) 3.3 H, Basophils (%) (Auto) 0.4, Neutrophils # (Auto) 12.7 H, Lymphocytes # (Auto) 1.8, Monocytes # (Auto) 1.0 H , Eosinophils # (Auto) 0.5, Basophils # (Auto) 0.1, Calcium Level 8.7, Aspartate Amino Transf (AST/SGOT) 35, Alanine Aminotransferase (ALT/SGPT) 48, Alkaline Phosphatase 281 H, Total Bilirubin 0.8, Total Protein 6.1 L, Albumin 2.4 L Microbiology Microbiology 12/14/16 Blood Culture - Preliminary, Resulted No growth after 24 hours . All specim... 12/14/16 Blood Culture - Preliminary, Resulted No growth after 24 hours . All specim... 12/14/16 Gram Stain - Final, Resulted 12/14/16 Wound Culture, Resulted Pending GRICELDA OBANDO MD Dec 16, 2016 11:11
[2016-12-16 14:00] VITALS: BP 122/59
--- NOTE | 2016-12-16 17:54 | IPN ---
DATE: 12/16/2016 Patient seen and examined at bedside, states his pain is about the same, not significantly improved. Denies other overnight complaints. The patient has been afebrile over the last 24 hours. Labs are reviewed. White blood cell count is 16.1. CRP is 14.2 down from 18.3. Culture results from the emergency room are pending. LOWER EXTREMITY EXAMINATION: There is persisting erythema and edema and local warmth and tenderness to the left heel, not significantly changed from yesterday's examination. ASSESSMENT: A 56-year-old diabetic male with suspected osteomyelitis, status post puncture wound and cellulitis. PLAN: The patient is presently on vancomycin and Zosyn. Continue these. Will schedule for operating room tomorrow for incision and drainage. Will plan bone biopsies and deep space cultures at that time.
[2016-12-16] MEDS: ACETAMINOPHEN TAB 650MG DOSE (2X325MG) PO PRN (18:19)
[2016-12-16 20:00] VITALS: BP 112/67
[2016-12-16] MEDS: ATORVASTATIN 10 MG TAB PO SCH (21:07)
[2016-12-16] MEDS: AMITRIPTYLINE 25 MG TAB PO SCH (21:07)
[2016-12-16 22:00] VITALS: BP 112/67
[2016-12-17] VITALS (8 sets, daily range): BP systolic 117–142; BP diastolic 59–72
[2016-12-17] MEDS: NS 1,000 ML IV SCH ×3 (02:45→20:06)
[2016-12-17] MEDS: VANCOMYCIN HCL 1,000 MG, VIAL MATE ADAPTER 1 EACH in D5W 250 ML IV SCH ×2 (05:48→21:54)
[2016-12-17 06:14] LABS: BASO # 0.1 K/mm3 (0.0-0.2); BASO % 0.6 % (0.0-1.0); EOS # 0.5 K/mm3 (0.0-0.50); EOS % 2.8 % (0.0-3.0); LARGE UNSTAINED CELL # 0.6 K/mm3 (0.0-0.4); LARGE UNSTAINED CELL % 3.5 % (0.0-4.0); LYMPH # 2.4 K/mm3 (1.5-4.5); LYMPH % 11.1 % (24.0-44.0); MEAN CORPUSCULAR HEMOGLOBIN 28.1 pg (27.0-33.0); MEAN CORPUSCULAR HGB CONC 32.4 g/dl (32.0-36.5); MEAN CORPUSCULAR VOLUME 86.7 fl (80.0-96.0); MONO # 1.4 K/mm3 (0.0-0.8); MONO % 8.3 % (0.0-5.0); NEUTROPHILS # 12.2 K/mm3 (1.8-7.7); NEUTROPHILS % 73.7 % (36.0-66.0); PLATELET COUNT, AUTOMATED 594 k/mm3 (150-450); WHITE BLOOD COUNT 16.5 K/mm3 (4.0-10.0)
[2016-12-17 06:39] LABS: ALBUMIN 2.3 GM/DL (3.2-5.2); ALBUMIN/GLOBULIN RATIO 0.62 (1.00-1.93); BILIRUBIN,TOTAL 0.6 MG/DL (0.2-1.0); CALCIUM LEVEL 9.6 MG/DL (8.5-10.1); CREATININE FOR GFR 2.21 MG/DL (0.70-1.30); MAGNESIUM LEVEL 2.6 MG/DL (1.8-2.4); POTASSIUM SERUM 4.1 MEQ/L (3.5-5.1)
[2016-12-17] MEDS: PANTOPRAZOLE 40MG TAB (PROTONIX) PO SCH (08:30)
[2016-12-17] MEDS: GLIMEPIRIDE 2 MG TAB PO SCH (08:31)
[2016-12-17] MEDS: PRIMIDONE 50 MG TAB PO SCH ×2 (08:32→20:08)
[2016-12-17] MEDS: VITAMIN D 1,000 INTERNATIONAL UNITS TABLET PO SCH (08:32)
[2016-12-17] MEDS: ALLOPURINOL 100 MG TAB PO SCH (08:32)
[2016-12-17] MEDS: SENOKOT S TAB PO SCH ×2 (08:32→20:08)
[2016-12-17] MEDS: amLODIPine 5 MG TAB PO SCH (08:33)
[2016-12-17] MEDS: oxyCODONE 15 MG CR TAB PO SCH ×2 (08:35→20:07)
[2016-12-17] MEDS: HumaLOG INSULIN (NovoLOG) PER UNIT SC SCH ×4 (08:36→20:09)
[2016-12-17] MEDS: PIPERACILLIN/TAZOBACTAM SOD 3.375 GM in D5W MINI-BAG PLUS 50 ML IV SCH ×2 (08:37→15:59)
[2016-12-17] MEDS: buPROPion **XL** TABLET 150MG (WELLBUTRIN XL) PO SCH (10:32)
--- NOTE | 2016-12-17 11:00 | IPNPDOC ---
Subjective Date Seen The patient was seen on 12/17/16. Subjective Chief Complaint/HPI The patient is a 56-year-old male admitted with a reason for visit of Acute Kidney Injury,Cellulitis Of Left Foot. Events since last encounter having spikes of fever overnight, left foot still inflamed and sore. no nausea or vomiting or diarrhea, no abdominal pain , going to OR today. Objective Physical Examination General Exam: Positive: Alert, Cooperative, No Acute Distress Eye Exam: Positive: PERRLA, Conjunctiva & lids normal, EOMI ENT Exam: Positive: Atraumatic, Mucous membr. moist/pink, Pharynx Normal Neck Exam: Positive: Supple Chest Exam: Positive: Clear to auscultation, Normal air movement Heart Exam: Positive: Rate Normal, Regular Rhythm, Normal S1, Normal S2 Abdomen Exam: Positive: Normal bowel sounds, Soft Extremity Exam: Positive: Normal pulses Skin Exam: Positive: Lesion Assessment /Plan Problems (1) Puncture wound of left foot Status: Acute Problem Text: continue antibiotics , culture from ER staph epidermidis (2) Cellulitis of left foot Status: Acute Problem Text: continue zosyn and vancomycin (3) Osteomyelitis Status: Acute Problem Text: continue with antibiotics will have some debridement and bone biopsy tomorrow will probably need 6 weeks of antibiotics. (4) Acute kidney injury Status: Acute Response to Treatment: Improving Problem Text: renal and bladder ultrasound no obstruction or urinary retention. will continue with ivf. (5) Hyperlipidemia Status: Chronic (6) Gout Status: Chronic (7) Hyponatremia Status: Acute Problem Text: stable , possibly due to deficit will continue with ivf. (8) SARAH (obstructive sleep apnea) Status: Chronic Problem Text: has been prescribed CPAP at home does not use it here having nocturnal desaturations will use oxygen supplementation during sleep and naps. (9) Diabetic neuropathy Status: Chronic (10) Diabetes Status: Chronic (11) Hypertension Status: Chronic Plan/VTE VTE Prophylaxis Ordered?: Yes VS, I&O, 24H, Fishbone Vital Signs/I&O Vital Signs Date Time Temp Pulse Resp B/P (MAP) Pulse Ox O2 Delivery O2 Flow Rate FiO2 12/17/16 08:35 18 Room Air 12/17/16 08:33 88 139/61 12/17/16 06:00 96.9 97 3.0 I&O- Last 24 Hours up to 6 AM 12/17/16 05:59 Intake Total 3820 ml Output Total 650 ml Balance 3170 ml Laboratory Data 24H LABS Laboratory Tests 2 12/16/16 11:20: Bedside Glucose (Misc Panel) 204H 12/16/16 16:43: Bedside Glucose (Misc Panel) 150H 12/16/16 21:07: Bedside Glucose (Misc Panel) 233H 12/17/16 05:57: White Blood Count 16.5H, Red Blood Count 4.31, Hemoglobin 12.1L, Hematocrit 37.3L, Mean Corpuscular Volume 86.7, Mean Corpuscular Hemoglobin 28.1, Mean Corpuscular Hemoglobin Concent 32.4, Red Cell Distribution Width 17.0H, Platelet Count 594H, Neutrophils (%) (Auto) 73.7H, Lymphocytes (%) (Auto) 11.1L , Monocytes (%) (Auto) 8.3H, Eosinophils (%) (Auto) 2.8, Basophils (%) (Auto) 0.6, Neutrophils # (Auto) 12.2H, Lymphocytes # (Auto) 2.4, Monocytes # (Auto) 1.4H, Eosinophils # (Auto) 0.5, Basophils # (Auto) 0.1, Large Unclassified Cells % 3.5, Large Unclassified Cells # 0.6H, Anion Gap 8, Glomerular Filtration Rate 33.0L, Blood Urea Nitrogen 45H, Creatinine 2.21H, Sodium Level 132L, Potassium Level 4.1, Chloride Level 97L, Carbon Dioxide Level 27, Calcium Level 9.6, Aspartate Amino Transf (AST/SGOT) 27, Alanine Aminotransferase (ALT/ SGPT) 38, Alkaline Phosphatase 281H, Total Bilirubin 0.6, Total Protein 6.0L, Albumin 2.3L, Magnesium Level 2.6H, C-Reactive Protein, Quantitative 14.50H, Albumin/Globulin Ratio 0.62L CBC/BMP Laboratory Tests 12/17/16 05:57 Red Blood Count 4.31, Mean Corpuscular Volume 86.7, Mean Corpuscular Hemoglobin 28.1, Mean Corpuscular Hemoglobin Concent 32.4, Red Cell Distribution Width 17.0 H, Neutrophils (%) (Auto) 73.7 H, Lymphocytes (%) (Auto) 11.1 L, Monocytes (%) (Auto) 8.3 H, Eosinophils (%) (Auto) 2.8, Basophils (%) (Auto) 0.6, Neutrophils # (Auto) 12.2 H, Lymphocytes # (Auto) 2.4, Monocytes # (Auto) 1.4 H , Eosinophils # (Auto) 0.5, Basophils # (Auto) 0.1, Calcium Level 9.6, Aspartate Amino Transf (AST/SGOT) 27, Alanine Aminotransferase (ALT/SGPT) 38, Alkaline Phosphatase 281 H, Total Bilirubin 0.6, Total Protein 6.0 L, Albumin 2.3 L Microbiology Microbiology 12/14/16 Blood Culture - Preliminary, Resulted No Growth after 48 hours. All Specime... 12/14/16 Blood Culture - Preliminary, Resulted No Growth after 48 hours. All Specime... 12/14/16 Gram Stain - Final, Complete 12/14/16 Wound Culture - Final, Complete Staphylococcus Epidermidis GRICELDA OBANDO MD Dec 17, 2016 11:00
[2016-12-17] MEDS ORDERED: BUPIVACAINE HCL 0.5% 30 ML VIAL As Ordered ONE (16:22)
[2016-12-17] MEDS ORDERED: LIDOCAINE 1% SDV INJ 30 ML VIAL As Ordered ONE (16:22)
[2016-12-17] MEDS ORDERED: fentaNYL 100 MCG/2 ML INJECTION (J3010) As Ordered ONE (16:53)
[2016-12-17] MEDS ORDERED: MIDAZOLAM INJ 2 MG/2 ML VIAL (J2250) As Ordered ONE (16:53)
[2016-12-17] MEDS ORDERED: PROPOFOL 200 MG/20 ML VIAL As Ordered ONE ×2 (16:54→17:36)
[2016-12-17] MEDS ORDERED: VANCOMYCIN 1000 MG/20 ML VIAL (J3370) As Ordered ONE (18:44)
[2016-12-17] MEDS ORDERED: LR 1,000 ML IV SCH (19:15)
[2016-12-17] MEDS ORDERED: fentaNYL 100 MCG/2 ML INJECTION (J3010) IV PRN (19:15)
[2016-12-17] MEDS ORDERED: ONDANSETRON 4MG/2ML VIAL (J2405) IV PRN (19:15)
[2016-12-17] MEDS: AMITRIPTYLINE 25 MG TAB PO SCH (20:08)
[2016-12-17] MEDS: ATORVASTATIN 10 MG TAB PO SCH (20:08)
--- NOTE | 2016-12-17 21:10 | PHACANCOPD ---
PHARMACY VANCOMYCIN DOSING Pt Demographics Demographics Patient Age:56 , Weight:133.100 , Gender: male Adjusted Body Weight Events Past 24 Hours Events Past 24 Hours: NO: Dialysis, Diuretic Therapy, Change in CrCl, Fever, Elevation in WBC, Pending Diagnostics, Pending Procedures, Other Vancomycin Vancomycin indication: L.FOOT CELLULITIS([employer] COVERAGE) Vancomycin Target Ranges: 15-20 mcg/ml Vancomycin Load Y/N: No Load Dose Date Time Vancomycin Load Dose: Date: Time: Vancomycin Dose Date: 12/15/16. Current Vancomycin Dose: [1 GM IV Q12@06] Intermittent Dosing?: No Labs Labs Laboratory Tests Test 12/15/16 16:56 12/17/16 19:36 Vancomycin Level Trough 14.5 UG/ML (10.0-20.0) 16.6 UG/ML (10.0-20.0) Laboratory Tests 12/17/16 05:57 Red Blood Count 4.31, Mean Corpuscular Volume 86.7, Mean Corpuscular Hemoglobin 28.1, Mean Corpuscular Hemoglobin Concent 32.4, Red Cell Distribution Width 17.0 , Neutrophils (%) (Auto) 73.7, Lymphocytes (%) (Auto) 11.1, Monocytes (%) (Auto ) 8.3, Eosinophils (%) (Auto) 2.8, Basophils (%) (Auto) 0.6, Neutrophils # (Auto ) 12.2, Lymphocytes # (Auto) 2.4, Monocytes # (Auto) 1.4, Eosinophils # (Auto) 0.5, Basophils # (Auto) 0.1, Calcium Level 9.6, Aspartate Amino Transf (AST/SGOT ) 27, Alanine Aminotransferase (ALT/SGPT) 38, Alkaline Phosphatase 281, Total Bilirubin 0.6, Total Protein 6.0, Albumin 2.3 Micro Microbiology 12/14/16 Wound Culture - Final, Complete Staphylococcus Epidermidis Creatinine Clearance Date:12/15/16. Creatinine Clearance: [54].CALCULATED Assessment and Plan Maintaining Current Dose?: Yes Reason for dose change: No Dose Change Pharmacist Note Pharmacist Note Date: 12/15/16. Pharm.D. note: 56YO MALE, 133 KG, 77" in HEIGHT, SCR=2.31( CALCULATED crcl=54) Admitted w/l foot cellulitis/possible osteomyelitis following puncture wound/cellulitis.treated w/ZOSYN 3.375GM IV Q8H (midnight) and Vancomycin per Pharmacy consult; Vancomycin 1 GM IV Q12H trough is REPORTED 16.6 mcg/ml (GOAL; 15-20 mcg/ml). HIS SCR IS SLOWLY IMPROVING. WE WILL CONTINUE WITH HIS CURRENT THERAPY AT THIS TIME. [facility] Dec 17, 2016 21:10
[2016-12-17] MEDS: HEPARIN SOD (PORCINE) 5000 UNITS/ML VIAL SC SCH (23:00)
[2016-12-18 00:17] VITALS: BP 117/68
[2016-12-18] MEDS: PIPERACILLIN/TAZOBACTAM SOD 3.375 GM in D5W MINI-BAG PLUS 50 ML IV SCH ×3 (00:34→17:07)
[2016-12-18] MEDS: HEPARIN SOD (PORCINE) 5000 UNITS/ML VIAL SC SCH ×3 (05:28→22:06)
[2016-12-18] MEDS: NS 1,000 ML IV SCH (05:28)
[2016-12-18] MEDS: oxyCODONE 5MG TAB PO PRN ×2 (05:29→12:13)
[2016-12-18] MEDS: ALLOPURINOL 100 MG TAB PO SCH (08:10)
[2016-12-18] MEDS: buPROPion **XL** TABLET 150MG (WELLBUTRIN XL) PO SCH (08:10)
[2016-12-18] MEDS: PRIMIDONE 50 MG TAB PO SCH ×2 (08:10→20:45)
[2016-12-18] MEDS: SENOKOT S TAB PO SCH ×2 (08:10→20:47)
[2016-12-18] MEDS: VITAMIN D 1,000 INTERNATIONAL UNITS TABLET PO SCH (08:10)
[2016-12-18] MEDS: GLIMEPIRIDE 2 MG TAB PO SCH (08:11)
[2016-12-18] MEDS: PANTOPRAZOLE 40MG TAB (PROTONIX) PO SCH (08:11)
[2016-12-18] MEDS: amLODIPine 5 MG TAB PO SCH (08:13)
[2016-12-18] MEDS: oxyCODONE 15 MG CR TAB PO SCH ×2 (08:14→20:46)
[2016-12-18] MEDS: HumaLOG INSULIN (NovoLOG) PER UNIT SC SCH ×4 (08:17→21:53)
[2016-12-18 09:05] LABS: BASO # 0.1 K/mm3 (0.0-0.2); BASO % 0.8 % (0.0-1.0); EOS # 0.4 K/mm3 (0.0-0.50); LARGE UNSTAINED CELL # 0.9 K/mm3 (0.0-0.4); LARGE UNSTAINED CELL % 5.2 % (0.0-4.0); LYMPH % 11.8 % (24.0-44.0); MEAN CORPUSCULAR HEMOGLOBIN 28.1 pg (27.0-33.0); MEAN CORPUSCULAR HGB CONC 32.8 g/dl (32.0-36.5); MEAN CORPUSCULAR VOLUME 85.6 fl (80.0-96.0); MONO # 1.4 K/mm3 (0.0-0.8); NEUTROPHILS # 12.3 K/mm3 (1.8-7.7); NEUTROPHILS % 72.2 % (36.0-66.0); PLATELET COUNT, AUTOMATED 747 k/mm3 (150-450); RED CELL DISTRIBUTION WIDTH 16.8 % (11.5-14.5)
[2016-12-18 09:28] LABS: ALBUMIN 2.4 GM/DL (3.2-5.2); ALBUMIN/GLOBULIN RATIO 0.75 (1.00-1.93); BILIRUBIN,TOTAL 0.9 MG/DL (0.2-1.0); CALCIUM LEVEL 9.2 MG/DL (8.5-10.1); CREATININE FOR GFR 1.61 MG/DL (0.70-1.30); GLOMERULAR FILTRATION RATE 47.5 (>56); POTASSIUM SERUM 4.9 MEQ/L (3.5-5.1); TOTAL PROTEIN 5.6 GM/DL (6.4-8.2)
[2016-12-18 10:00] VITALS: BP 146/89
[2016-12-18] MEDS: ASPIRIN 81 MG ENTERIC TAB PO SCH (10:49)
[2016-12-18] MEDS: VANCOMYCIN HCL 1,000 MG, VIAL MATE ADAPTER 1 EACH in D5W 250 ML IV SCH ×2 (10:49→22:07)
--- NOTE | 2016-12-18 11:09 | IPNPDOC ---
Subjective Date Seen The patient was seen on 12/18/16. Subjective Chief Complaint/HPI The patient is a 56-year-old male admitted with a reason for visit of Acute Kidney Injury,Cellulitis Of Left Foot. Events since last encounter Had operative procedure of the left foot done yesterday , no fever or chills, last night Objective Physical Examination General Exam: Positive: Alert, Cooperative, No Acute Distress Eye Exam: Positive: PERRLA, Conjunctiva & lids normal, EOMI ENT Exam: Positive: Atraumatic, Mucous membr. moist/pink, Pharynx Normal Neck Exam: Positive: Supple Chest Exam: Positive: Clear to auscultation, Normal air movement Heart Exam: Positive: Rate Normal, Regular Rhythm, Normal S1, Normal S2 Abdomen Exam: Positive: Normal bowel sounds, Soft Extremity Exam: Positive: Normal pulses Skin Exam: Positive: Lesion Assessment /Plan Problems (1) Puncture wound of left foot Status: Acute Problem Text: continue antibiotics , culture from ER staph epidermidis (2) Cellulitis of left foot Status: Acute Problem Text: continue zosyn and vancomycin (3) Osteomyelitis Status: Acute Problem Text: continue with antibiotics s/p debridement and bone biopsy on 12/17/16 will probably need 6 weeks of antibiotics. picc line (4) Acute kidney injury Status: Acute Response to Treatment: Improving Problem Text: renal and bladder ultrasound no obstruction or urinary retention. will dc ivf (5) Hyperlipidemia Status: Chronic (6) Gout Status: Chronic (7) Hyponatremia Status: Resolved Problem Text: stable , possibly due to deficit (8) SARAH (obstructive sleep apnea) Status: Chronic Problem Text: has been prescribed CPAP at home does not use it here having nocturnal desaturations will use oxygen supplementation during sleep and naps. (9) Diabetic neuropathy Status: Chronic (10) Diabetes Status: Chronic (11) Hypertension Status: Chronic Plan/VTE VTE Prophylaxis Ordered?: Yes VS, I&O, 24H, Fishbone Vital Signs/I&O Vital Signs Date Time Temp Pulse Resp B/P (MAP) Pulse Ox O2 Delivery O2 Flow Rate FiO2 12/18/16 08:20 Room Air 12/18/16 08:14 18 12/18/16 08:13 82 132/60 12/18/16 00:17 98.5 12/17/16 22:17 97 12/17/16 14:00 3.0 I&O- Last 24 Hours up to 6 AM 12/18/16 06:00 Intake Total 4990 ml Output Total 2375 ml Balance 2615 ml Laboratory Data 24H LABS Laboratory Tests 2 12/17/16 11:34: Bedside Glucose (Misc Panel) 157H 12/17/16 16:19: Bedside Glucose (Misc Panel) 89 12/17/16 18:32: Bedside Glucose (Misc Panel) 83 12/17/16 19:36: Vancomycin Level Trough 16.6 12/18/16 08:47: White Blood Count 17.0H, Red Blood Count 4.41, Hemoglobin 12.4L, Hematocrit 37.8L, Mean Corpuscular Volume 85.6, Mean Corpuscular Hemoglobin 28.1, Mean Corpuscular Hemoglobin Concent 32.8, Red Cell Distribution Width 16.8H, Platelet Count 747H, Neutrophils (%) (Auto) 72.2H, Lymphocytes (%) (Auto) 11.8L , Monocytes (%) (Auto) 8.0H, Eosinophils (%) (Auto) 2.0, Basophils (%) (Auto) 0.8, Neutrophils # (Auto) 12.3H, Lymphocytes # (Auto) 2.0, Monocytes # (Auto) 1.4H, Eosinophils # (Auto) 0.4, Basophils # (Auto) 0.1, Large Unclassified Cells % 5.2H, Large Unclassified Cells # 0.9H, Anion Gap 9, Glomerular Filtration Rate 47.5L, Blood Urea Nitrogen 33H, Creatinine 1.61H, Sodium Level 132L, Potassium Level 4.9, Chloride Level 101, Carbon Dioxide Level 22, Calcium Level 9.2, Aspartate Amino Transf (AST/SGOT) 27, Alanine Aminotransferase (ALT/ SGPT) 36, Alkaline Phosphatase 271H, Total Bilirubin 0.9, Total Protein 5.6L, Albumin 2.4L, Magnesium Level 2.0, C-Reactive Protein, Quantitative 13.40H, Albumin/Globulin Ratio 0.75L CBC/BMP Laboratory Tests 12/18/16 08:47 Red Blood Count 4.41, Mean Corpuscular Volume 85.6, Mean Corpuscular Hemoglobin 28.1, Mean Corpuscular Hemoglobin Concent 32.8, Red Cell Distribution Width 16.8 H, Neutrophils (%) (Auto) 72.2 H, Lymphocytes (%) (Auto) 11.8 L, Monocytes (%) (Auto) 8.0 H, Eosinophils (%) (Auto) 2.0, Basophils (%) (Auto) 0.8, Neutrophils # (Auto) 12.3 H, Lymphocytes # (Auto) 2.0, Monocytes # (Auto) 1.4 H , Eosinophils # (Auto) 0.4, Basophils # (Auto) 0.1, Calcium Level 9.2, Aspartate Amino Transf (AST/SGOT) 27, Alanine Aminotransferase (ALT/SGPT) 36, Alkaline Phosphatase 271 H, Total Bilirubin 0.9, Total Protein 5.6 L, Albumin 2.4 L Microbiology Microbiology 12/14/16 Blood Culture - Preliminary, Resulted No Growth after 72 hours. All specime... 12/14/16 Blood Culture - Preliminary, Resulted No Growth after 72 hours. All specime... 12/17/16 Wound Culture, Received Pending 12/17/16 Wound Culture, Received Pending 12/17/16 Anaerobic Culture, Received Pending 12/17/16 Anaerobic Culture, Received Pending 12/14/16 Gram Stain - Final, Complete 12/14/16 Wound Culture - Final, Complete Staphylococcus Epidermidis GRICELDA OBANDO MD Dec 18, 2016 11:09
[2016-12-18 14:00] VITALS: BP 140/78
[2016-12-18 18:00] VITALS: BP 140/90
[2016-12-18] MEDS: ATORVASTATIN 10 MG TAB PO SCH (20:45)
[2016-12-18] MEDS: AMITRIPTYLINE 25 MG TAB PO SCH (20:48)
[2016-12-18 22:00] VITALS: BP 139/65
[2016-12-19] MEDS: PIPERACILLIN/TAZOBACTAM SOD 3.375 GM in D5W MINI-BAG PLUS 50 ML IV SCH ×4 (00:02→23:54)
[2016-12-19] MEDS: oxyCODONE 5MG TAB PO PRN ×2 (01:07→05:08)
[2016-12-19] MEDS: HEPARIN SOD (PORCINE) 5000 UNITS/ML VIAL SC SCH (05:08)
--- NOTE | 2016-12-19 05:52 | RO ---
DATE OF PROCEDURE: 12/17/2016 PREPROCEDURE DIAGNOSIS: Left foot ulceration, cellulitis and osteomyelitis. POSTPROCEDURE DIAGNOSIS: Left foot ulceration, cellulitis and osteomyelitis. PROCEDURE: Left foot incision and drainage and wound debridement. SURGEON: Manish Izaguirre DPM BURIAL VAULT SETTER: None. ANESTHESIA: Monitored anesthesia care with preoperative injection of 20 mL of 1:1 mixture of 1% lidocaine plain and 1/2% Marcaine plain. ESTIMATED BLOOD LOSS: 20 mL. HEMOSTASIS: Pneumatic calf tourniquet. MATERIALS: None. SPECIMEN: Necrotic fat left heel, necrotic tendon left foot and bone calcaneus left foot. Cultures were taken from the plantar incision as well as the medial incision for aerobic and anaerobic. COMPLICATIONS: None. CONDITION: Stable. Jovanny Herrera is a 56-year-old male who was admitted to the hospital with cellulitis following stepping on a metal wire. He was started on IV antibiotics. An MRI was taken which revealed osteomyelitis to the left heel. He did not have significant improvement in erythema symptoms or white blood cell count with the IV antibiotics. Decision was made to bring him to the operating room for incision and drainage, deep cultures and bone biopsy. The patient side and site were identified and marked in the preoperative holding area. Consent was reviewed and obtained. All risks, complications and alternatives to the procedure were explained to the patient's in detail and all questions were answered. DESCRIPTION OF PROCEDURE: The patient was brought to the operating room and placed on the operating room table in supine position. Monitored anesthesia care was delivered by the anesthesia team. Preoperative injection of 20 mL of 1:1 mixture of 1% lidocaine plain and 1/2% Marcaine plain were injected around the left ankle. The foot was prepped and draped with Hibiclens solution. A tourniquet was applied to the left calf and was inflated to 250 mmHg. A plantar incision was made at the heel center in the line of the wound site from the puncture wounds. This was carried through with a #15 blade. Necrotic fat was identified protruding at this site. This was removed with rongeur and sent for pathology. Deep culture wounds were taken at this time. Hemostat was used to identify tracking. Tracking was noted to go dorsal and medial to the medial aspect of the ankle. A separate incision was made along this site. There was purulence noted from this site apparently tracking along the medial aspect of the plantar fascia. Separate culture was taken of the purulent material at this side. A necrotic tendon was identified and this was removed and also sent for pathology. The wounds were both debrided free of necrotic tissue. Expression was made until no further purulence was identified. Following this, 1500 mL of normal saline were irrigated using pulse lavage. Next the bone was inspected. There were some jagged sites from where apparently the wire penetrated the cortex of the bone. Otherwise the bone appeared fairly firm. An osteotome was used to remove a small piece of the plantar bone as well as a rongeur. This was sent for pathology. No further purulence was able to be expressed. An additional 1500 mL of normal saline was irrigated using pulse lavage to both incision sites. Following this, packing was placed to each wound using Kerlix. The incisions were dressed with dry gauze, ABDs and an chuy wrap. Tourniquet was deflated. Patient was brought to postanesthesia care unit with vital signs stable and neurovascular status intact. He will be readmitted to the floor for continued antibiotic. Recommend consultation with infectious disease. Patient will require 6 weeks of IV antibiotic therapy. Will await OR culture for further speciation.
[2016-12-19 06:00] VITALS: BP 154/83
[2016-12-19] MEDS ORDERED: ASPIRIN 325 MG TAB PO ONE (06:00)
[2016-12-19 06:03] LABS: BASO # 0.2 K/mm3 (0.0-0.2); BASO % 1.1 % (0.0-1.0); EOS # 0.7 K/mm3 (0.0-0.50); EOS % 4.6 % (0.0-3.0); LARGE UNSTAINED CELL # 0.5 K/mm3 (0.0-0.4); LARGE UNSTAINED CELL % 3.6 % (0.0-4.0); LYMPH # 2.8 K/mm3 (1.5-4.5); LYMPH % 15.5 % (24.0-44.0); MEAN CORPUSCULAR HEMOGLOBIN 28.5 pg (27.0-33.0); MEAN CORPUSCULAR HGB CONC 32.4 g/dl (32.0-36.5); MEAN CORPUSCULAR VOLUME 87.9 fl (80.0-96.0); MONO # 0.9 K/mm3 (0.0-0.8); MONO % 6.2 % (0.0-5.0); NEUTROPHILS # 10.2 K/mm3 (1.8-7.7); NEUTROPHILS % 68.9 % (36.0-66.0); PLATELET COUNT, AUTOMATED 716 k/mm3 (150-450); RED CELL DISTRIBUTION WIDTH 16.8 % (11.5-14.5); WHITE BLOOD COUNT 14.8 K/mm3 (4.0-10.0)
[2016-12-19 06:29] LABS: ALBUMIN 2.4 GM/DL (3.2-5.2); ALBUMIN/GLOBULIN RATIO 0.51 (1.00-1.93); ALKALINE PHOSPHATASE 289 U/L (45-117); ALT/SGPT 36 U/L (12-78); ANION GAP 6 MEQ/L (8-16); AST/SGOT 26 U/L (15-37); BILIRUBIN,TOTAL 0.5 MG/DL (0.2-1.0); BLOOD UREA NITROGEN 23 MG/DL (7-18); CARBON DIOXIDE LEVEL 28 MEQ/L (21-32); CHLORIDE LEVEL 103 MEQ/L (98-107); CREATININE FOR GFR 1.53 MG/DL (0.70-1.30); GLOMERULAR FILTRATION RATE 50.4 (>56); GLUCOSE, FASTING 208 MG/DL (70-105); MAGNESIUM LEVEL 1.8 MG/DL (1.8-2.4); POTASSIUM SERUM 4.3 MEQ/L (3.5-5.1); SODIUM LEVEL 137 MEQ/L (136-145); TOTAL PROTEIN 7.1 GM/DL (6.4-8.2)
[2016-12-19] MEDS ORDERED: MORPHINE 2 MG/ML 1ML SYRINGE IV ONE (06:30)
--- NOTE | 2016-12-19 07:58 | REP ---
Portable chest, single AP view, the patient sitting, 06:30 a.m.: Comparison is 2014. The lung alonso are clear. The cardiac size is normal. The reyna, mediastinum, and bony thorax are unremarkable. Impression: Negative portable chest. There is no interval change. Signed by Sesar Ashton MD 12/19/2016 07:50 A
[2016-12-19] MEDS: HumaLOG INSULIN (NovoLOG) PER UNIT SC SCH ×4 (08:29→21:00)
[2016-12-19] MEDS: VITAMIN D 1,000 INTERNATIONAL UNITS TABLET PO SCH (08:29)
[2016-12-19] MEDS: oxyCODONE 15 MG CR TAB PO SCH ×2 (08:30→21:24)
[2016-12-19] MEDS: PRIMIDONE 50 MG TAB PO SCH ×2 (08:30→21:24)
[2016-12-19] MEDS: ALLOPURINOL 100 MG TAB PO SCH (08:31)
[2016-12-19] MEDS: ASPIRIN 81 MG ENTERIC TAB PO SCH (08:31)
[2016-12-19] MEDS: PANTOPRAZOLE 40MG TAB (PROTONIX) PO SCH (08:31)
[2016-12-19] MEDS: SENOKOT S TAB PO SCH ×2 (08:31→21:25)
[2016-12-19] MEDS: amLODIPine 5 MG TAB PO SCH (08:31)
[2016-12-19] MEDS: GLIMEPIRIDE 2 MG TAB PO SCH (08:31)
[2016-12-19] MEDS: buPROPion **XL** TABLET 150MG (WELLBUTRIN XL) PO SCH (09:56)
[2016-12-19] MEDS: VANCOMYCIN HCL 1,000 MG, VIAL MATE ADAPTER 1 EACH in D5W 250 ML IV SCH ×2 (09:58→21:23)
--- NOTE | 2016-12-19 10:47 | IPN ---
DATE OF SERVICE: 12/18/2016 Patient seen and examined at bedside. Negative for complaints. Negative for nausea, vomiting, fever, chills. States has some soreness in his left foot but not increased from yesterday Vitals: Patient afebrile overnight. Labs are reviewed. White blood cell count remains elevated at 17 up from 16.5 yesterday. CRP is 13.4 down from 14.5 yesterday. OR cultures in pathology are all pending. Lower extremity examination: There is some improvement in the edema and erythema surrounding the wound. Wound is inspected. No malodor is noted. No purulence was noted on expression. ASSESSMENT: 56-year-old male with left foot infection, cellulitis and osteomyelitis status post incision and drainage. PLAN: Continue current antibiotics. Await operative cultures. The culture in the ER grew staphylococcus epidermidis which is unlikely an inaccurate culture. Consultation for infectious disease has been placed. Suspect patient will require 6 weeks IV antibiotic therapy. 2. Continue saline wet to dry dressings three times daily. Will continue to monitor. May require additional washout possible to be performed Thursday.
--- NOTE | 2016-12-19 11:10 | IPNPDOC ---
Subjective Date Seen The patient was seen on 12/19/16. Subjective Chief Complaint/HPI The patient is a 56-year-old male admitted with a reason for visit of Acute Kidney Injury,Cellulitis Of Left Foot. Events since last encounter patient had an episode of right sided chest pain early this morning which lasted for about 2 hours had ekg and cardiac enzymes no acute changes thought muscular spasm. no light headedness or dizziness, no nausea or vomiting or diaphoresis , no abdominal pain no cough or phlegm Objective Physical Examination General Exam: Positive: Alert, Cooperative, No Acute Distress Eye Exam: Positive: PERRLA, Conjunctiva & lids normal, EOMI ENT Exam: Positive: Atraumatic, Mucous membr. moist/pink, Pharynx Normal Neck Exam: Positive: Supple Chest Exam: Positive: Clear to auscultation, Normal air movement Heart Exam: Positive: Rate Normal, Regular Rhythm, Normal S1, Normal S2 Abdomen Exam: Positive: Normal bowel sounds, Soft Extremity Exam: Positive: Normal pulses Skin Exam: Positive: Lesion Assessment /Plan Problems (1) Puncture wound of left foot Status: Acute Problem Text: continue antibiotics , culture from ER staph epidermidis new cultures sent for OR. Incision and drainage in the OR on 12/17/16 showed Necrotic fat left heel, necrotic tendon left foot May again go back to or for wash out on 12/20/16 bone biopsy was sent to path (2) Cellulitis of left foot Status: Acute Problem Text: continue zosyn and vancomycin consulted ID PICC line will possibly need 6 weeks of antibiotics. (3) Osteomyelitis Status: Acute Problem Text: continue with antibiotics s/p debridement and bone biopsy on 12/17/16 will probably need 6 weeks of antibiotics. picc line (4) Acute kidney injury Status: Acute Response to Treatment: Improving Problem Text: renal and bladder ultrasound no obstruction or urinary retention. will dc ivf (5) Hyperlipidemia Status: Chronic (6) Gout Status: Chronic (7) Hyponatremia Status: Resolved Problem Text: stable , possibly due to deficit (8) SARAH (obstructive sleep apnea) Status: Chronic Problem Text: has been prescribed CPAP at home does not use it here having nocturnal desaturations will use oxygen supplementation during sleep and naps. (9) Diabetic neuropathy Status: Chronic (10) Diabetes Status: Chronic (11) Hypertension Status: Chronic Plan/VTE VTE Prophylaxis Ordered?: Yes VS, I&O, 24H, Fishbone Vital Signs/I&O Vital Signs Date Time Temp Pulse Resp B/P (MAP) Pulse Ox O2 Delivery O2 Flow Rate FiO2 12/19/16 08:31 70 154/83 12/19/16 08:30 20 12/19/16 06:47 Room Air 12/19/16 06:00 97.0 97 12/19/16 05:08 2.0 I&O- Last 24 Hours up to 6 AM 12/19/16 05:59 Intake Total 3700 ml Output Total 2175 ml Balance 1525 ml Laboratory Data 24H LABS Laboratory Tests 2 12/18/16 11:40: Bedside Glucose (Misc Panel) 202H 12/18/16 20:05: Bedside Glucose (Misc Panel) 163H 12/19/16 05:47: White Blood Count 14.8H, Red Blood Count 4.47, Hemoglobin 12.7L, Hematocrit 39.3L, Mean Corpuscular Volume 87.9, Mean Corpuscular Hemoglobin 28.5, Mean Corpuscular Hemoglobin Concent 32.4, Red Cell Distribution Width 16.8H, Platelet Count 716H, Neutrophils (%) (Auto) 68.9H, Lymphocytes (%) (Auto) 15.5L , Monocytes (%) (Auto) 6.2H, Eosinophils (%) (Auto) 4.6H, Basophils (%) (Auto) 1.1H, Neutrophils # (Auto) 10.2H, Lymphocytes # (Auto) 2.8, Monocytes # (Auto) 0.9H, Eosinophils # (Auto) 0.7H, Basophils # (Auto) 0.2, Large Unclassified Cells % 3.6, Large Unclassified Cells # 0.5H, Anion Gap 6L, Glomerular Filtration Rate 50.4L, Estimated Mean Plasma Glucose 194H, Hemoglobin A1c 8.4H, Blood Urea Nitrogen 23H, Creatinine 1.53H, Sodium Level 137, Potassium Level 4.3 , Chloride Level 103, Carbon Dioxide Level 28, Calcium Level 10.0, Aspartate Amino Transf (AST/SGOT) 26, Alanine Aminotransferase (ALT/SGPT) 36, Total Creatine Kinase 20L, Alkaline Phosphatase 289H, Total Bilirubin 0.5, Total Protein 7.1#, Albumin 2.4L, Magnesium Level 1.8, Creatine Kinase MB 1.0, Creatine Kinase MB Relative Index 5.00H, Troponin I < 0.02, C-Reactive Protein, Quantitative 13.80H, Albumin/Globulin Ratio 0.51L CBC/BMP Laboratory Tests 12/19/16 05:47 Red Blood Count 4.47, Mean Corpuscular Volume 87.9, Mean Corpuscular Hemoglobin 28.5, Mean Corpuscular Hemoglobin Concent 32.4, Red Cell Distribution Width 16.8 H, Neutrophils (%) (Auto) 68.9 H, Lymphocytes (%) (Auto) 15.5 L, Monocytes (%) (Auto) 6.2 H, Eosinophils (%) (Auto) 4.6 H, Basophils (%) (Auto) 1.1 H, Neutrophils # (Auto) 10.2 H, Lymphocytes # (Auto) 2.8, Monocytes # (Auto) 0.9 H , Eosinophils # (Auto) 0.7 H, Basophils # (Auto) 0.2, Calcium Level 10.0, Aspartate Amino Transf (AST/SGOT) 26, Alanine Aminotransferase (ALT/SGPT) 36, Total Creatine Kinase 20 L, Alkaline Phosphatase 289 H, Total Bilirubin 0.5, Total Protein 7.1 #, Albumin 2.4 L Microbiology Microbiology 12/14/16 Blood Culture - Preliminary, Resulted No Growth after 72 hours. All specime... 12/14/16 Blood Culture - Preliminary, Resulted No Growth after 72 hours. All specime... 12/17/16 Wound Culture, Received Pending 12/17/16 Wound Culture, Received Pending 12/17/16 Anaerobic Culture, Received Pending 12/17/16 Anaerobic Culture, Received Pending 12/14/16 Gram Stain - Final, Complete 12/14/16 Wound Culture - Final, Complete Staphylococcus Epidermidis GRICELDA OBANDO MD Dec 19, 2016 11:10
[2016-12-19 15:30] VITALS: BP 139/74
--- NOTE | 2016-12-19 16:46 | REP ---
RIGHT SINGLE LUMEN PICC LINE: The procedure was performed by NISH Marinelli under the direct supervision of Dr. Gatica. The procedure along with its risks, benefits, and complications were discussed with the patient prior to the procedure. Informed consent was obtained both verbally and written. The patient was identified and placed in a supine position on the interventional table. A procedural "time out" was performed to ensure that the correct site, patient, and procedure were being performed. Under ultrasound guidance the right basilic vein was punctured. A thin guidewire was introduced. The needle was removed and a peel away sheath was placed. Under fluoroscopic observation and via the peel-away sheath a 48 cm 4.5-Danish single lumen PICC line was placed with its tip at the junction of the distal superior vena cava. The catheter was flushed with heparinized saline and affixed to the patient's skin. The patient tolerated the procedure well and was then discharged back to his floor in good condition. Fluoroscopy time was 1.8 minutes. Reviewed by NISH Kay 12/19/2016 04:50 PEdited and Signed by Sesar Gatica MD 12/19/2016 04:52 P
--- NOTE | 2016-12-19 17:03 | ECGEPIP ---
Stationary ECG Study [facility] Test Date: 2016-12-19 Pat Name: LOGAN CHRISTIANSON Department: Room: [place] [address] Gender: M Cover Creaser: ROSE : 1960 Requested By: NINA [email or web address] Order Number: [id number] Reading MD: Gautam Caba Measurements Intervals Ulysses Rate: 73 P: 43 FL: 166 QRS: 73 QRSD: 105 T: 31 QT: 364 QTc: 401 Interpretive Statements SINUS RHYTHM Electronically Signed On 12-19-2016 17:03:08 EDT by Gautam Caba
[2016-12-19] MEDS: SODIUM CHLORIDE 0.9% INJ 10 ML SYR IV SCH (17:39)
[2016-12-19] MEDS: ATORVASTATIN 10 MG TAB PO SCH (21:25)
[2016-12-19] MEDS: AMITRIPTYLINE 25 MG TAB PO SCH (21:25)
[2016-12-19 22:00] VITALS: BP 159/81
--- NOTE | 2016-12-19 23:50 | CR ---
DATE OF CONSULTATION: 12/18/2016 I was asked to consult by Dr. Izaguirre for evaluation of acute osteomyelitis of the calcaneus involving the left foot. HISTORY OF PRESENT ILLNESS: Mr. Herrera is a 56-year-old gentleman with a history of non-insulin dependent diabetes, hypertension, dyslipidemia who had stepped on an iron hayder in his own garage. The patient stated the hayder went in about 2 inches. He removed the hayder himself, soaked his foot in Epsom salts. Over the next couple days, he developed severe pain, fever, chills, cellulitis with redness and pain. The foot was swollen and tender with drainage. He had pain all the way to his groin area. He had some fevers and chills, nausea and dry heaves. He did not have any vomiting. He had decreased appetite and constipation. He took some ibuprofen with no improvement and therefore came to the emergency room. He denied any chest pain, shortness of breath, abdominal pain. The patient was started on broad-spectrum antibiotics with intravenous (IV) vancomycin and Zosyn and was taken to the operating room (OR) for debridement by Dr. Izaguirre. ALLERGIES: POVIDONE, IODINE. PAST MEDICAL HISTORY: 1. Non-insulin dependent diabetes. 2. Hypertension. 3. Dyslipidemia. 4. Depression. 5. Anxiety. 6. Gout. 7. Diabetic neuropathy. 8. Obesity. PAST SURGICAL HISTORY: 1. Right toe amputation for a previous infection of the right toe and osteomyelitis with methicillin-susceptible Staphylococcus aureus (MSSA) and Enterococcus (E) faecalis in June 2015. 2. Amputation March 2016. 3. Right knee replacement in 2016. FAMILY HISTORY: Nonrevealing. SOCIAL HISTORY: He denies any use of alcohol or tobacco. He smokes marijuana occasionally. He is on disability and lives alone. REVIEW OF SYSTEMS: He denied any headache. He had some nausea, vomiting that have resolved. No abdominal pain. He had fever and chills which have improved. His last temperature was on 12/16 up to 100.3, but initially on admission was 101.4. No upper or lower extremity weakness. He has some numbness in his feet. PHYSICAL EXAMINATION: Vital signs: Temperature is 97.6, pulse 78, respirations 16, blood pressure 139/65, oxygen saturation 99% on room air, maximum temperature (T-max) was 101.4 on 12/16. Patient has been afebrile for 48 hours. Heart: Normal S1, S2. No murmurs. Lungs are clear. No wheezes, rales or rhonchi. Abdomen: Morbidly obese, soft, nontender. Back: No costovertebral angle (CVA) or lumbosacral tenderness. Extremities: Left foot swelling, edema, local tenderness of the left heel with cellulitis of the leg. Right toe amputation on the right well healed, +2 dorsalis pedis pulses on the right side, very long toenails that need debridement. LABORATORY DATA: White count is 17, hemoglobin 12.4, hematocrit 37.8, platelets 747, 72% neutrophils, 11% lymphocytes, 8% monocytes. ESR on admission was 56. Sodium 132, potassium 4.9, chloride 101, bicarbonate 22, BUN 33, creatinine 1.6 down from 3.12, glucose 174, calcium 9.2, magnesium 2, AST 27, ALT 36, alkaline phosphatase 271, CRP is 13.4 down from 18.3, albumin 2.4. Microbiology: Two sets of blood cultures are no growth after 72 hours. Wound culture superficial on 12/14 had Staphylococcus epidermidis, which is just a skin contaminant. Intraoperative culture from 12/17 anaerobic and aerobic cultures are still pending. MRI of the left foot shows findings for acute osteomyelitis of the calcaneus on the left side. No evidence of joint effusion. There is surrounding soft tissue edema. Vascular ultrasound done on 12/14 of the left foot showed no evidence of DVT. Foot x-ray showed a tiny amount of air in the soft tissues of the heel with possibly 2 mm foreign body in the soft tissues, chronic degenerative changes as above with old fractures of fourth and fifth proximal phalanges. IMPRESSION: This is a 56-year-old gentleman who was admitted with acute osteomyelitis of the left calcaneus after stepping on a metal hayder. The patient went to the operating room (OR) yesterday for debridement. Cultures are still pending. He is on appropriate coverage with vancomycin and Zosyn. He has defervesced in the past 48 hours. His white count is still elevated at 17, but C-reactive protein (CRP) has decreased. PLAN: Continue with intravenous (IV) antibiotics vancomycin for methicillin-resistant Staphylococcus aureus (MRSA) coverage, Zosyn for anaerobic and Pseudomonas coverage until results of intraoperative cultures from Dr. Izaguirre's surgery. The patient will need home IV antibiotics for calcaneal osteomyelitis and therefore would suggest a peripherally inserted central catheter (PICC) line, but that will be decided further based on results of cultures. Possibly if it is a Pseudomonas, he might be able to take oral Levaquin for 6 weeks. The patient does not feel safe at home to be on home IV antibiotics and further decision will depend on results of culture.
[2016-12-20] VITALS (9 sets, daily range): BP systolic 133–158; BP diastolic 70–88
[2016-12-20] MEDS: SODIUM CHLORIDE 0.9% INJ 10 ML SYR IV SCH ×2 (05:04→16:54)
[2016-12-20 05:35] LABS: BASO # 0.1 K/mm3 (0.0-0.2); BASO % 0.9 % (0.0-1.0); EOS # 0.8 K/mm3 (0.0-0.50); EOS % 5.1 % (0.0-3.0); LARGE UNSTAINED CELL # 0.5 K/mm3 (0.0-0.4); LYMPH # 2.8 K/mm3 (1.5-4.5); LYMPH % 14.8 % (24.0-44.0); MEAN CORPUSCULAR HEMOGLOBIN 28.2 pg (27.0-33.0); MEAN CORPUSCULAR HGB CONC 32.6 g/dl (32.0-36.5); MEAN CORPUSCULAR VOLUME 86.6 fl (80.0-96.0); MONO # 0.9 K/mm3 (0.0-0.8); NEUTROPHILS % 70.2 % (36.0-66.0); PLATELET COUNT, AUTOMATED 713 k/mm3 (150-450); RED CELL DISTRIBUTION WIDTH 16.8 % (11.5-14.5); WHITE BLOOD COUNT 15.7 K/mm3 (4.0-10.0)
[2016-12-20 05:44] LABS: ALBUMIN 2.3 GM/DL (3.2-5.2); ALKALINE PHOSPHATASE 271 U/L (45-117); ALT/SGPT 33 U/L (12-78); ANION GAP 8 MEQ/L (8-16); AST/SGOT 21 U/L (15-37); BILIRUBIN,TOTAL 0.4 MG/DL (0.2-1.0); BLOOD UREA NITROGEN 24 MG/DL (7-18); CALCIUM LEVEL 9.8 MG/DL (8.5-10.1); CARBON DIOXIDE LEVEL 26 MEQ/L (21-32); CHLORIDE LEVEL 103 MEQ/L (98-107); CREATININE FOR GFR 1.25 MG/DL (0.70-1.30); GLOMERULAR FILTRATION RATE > 60.0 (>56); GLUCOSE, FASTING 217 MG/DL (70-105); MAGNESIUM LEVEL 1.7 MG/DL (1.8-2.4); SODIUM LEVEL 137 MEQ/L (136-145); TOTAL PROTEIN 5.6 GM/DL (6.4-8.2)
[2016-12-20] MEDS: HumaLOG INSULIN (NovoLOG) PER UNIT SC SCH ×4 (07:30→21:00)
[2016-12-20] MEDS: GLIMEPIRIDE 2 MG TAB PO SCH ×2 (07:30→07:48)
[2016-12-20] MEDS: PIPERACILLIN/TAZOBACTAM SOD 3.375 GM in D5W MINI-BAG PLUS 50 ML IV SCH ×3 (07:40→23:53)
[2016-12-20] MEDS: PRIMIDONE 50 MG TAB PO SCH ×2 (07:48→20:47)
[2016-12-20] MEDS: PANTOPRAZOLE 40MG TAB (PROTONIX) PO SCH (07:49)
[2016-12-20] MEDS: ALLOPURINOL 100 MG TAB PO SCH (07:49)
[2016-12-20] MEDS ORDERED: BUPIVACAINE HCL 0.5% 30 ML VIAL As Ordered ONE (07:49)
[2016-12-20] MEDS: VITAMIN D 1,000 INTERNATIONAL UNITS TABLET PO SCH (07:49)
[2016-12-20] MEDS: amLODIPine 5 MG TAB PO SCH (07:49)
[2016-12-20] MEDS: SENOKOT S TAB PO SCH ×2 (07:49→20:48)
[2016-12-20] MEDS ORDERED: LIDOCAINE 1% SDV INJ 30 ML VIAL As Ordered ONE (07:49)
[2016-12-20] MEDS: buPROPion **XL** TABLET 150MG (WELLBUTRIN XL) PO SCH (07:58)
[2016-12-20] MEDS: oxyCODONE 15 MG CR TAB PO SCH ×2 (08:01→20:47)
--- NOTE | 2016-12-20 08:26 | IPNPDOC ---
Subjective Date Seen The patient was seen on 12/20/16. Subjective Chief Complaint/HPI The patient is a 56-year-old male admitted with a reason for visit of Acute Kidney Injury,Cellulitis Of Left Foot. Events since last encounter pateint going to OR today for another wash out , continues to have soreness of the left foot , no fever or chills, no chest pain or sob , no abdominal paain , nausea or vomiting or diarrhea. Objective Physical Examination General Exam: Positive: Alert, Cooperative, No Acute Distress Eye Exam: Positive: PERRLA, Conjunctiva & lids normal, EOMI ENT Exam: Positive: Atraumatic, Mucous membr. moist/pink, Pharynx Normal Neck Exam: Positive: Supple Chest Exam: Positive: Clear to auscultation, Normal air movement Heart Exam: Positive: Rate Normal, Regular Rhythm, Normal S1, Normal S2 Abdomen Exam: Positive: Normal bowel sounds, Soft Extremity Exam: Positive: Normal pulses Skin Exam: Positive: Lesion Assessment /Plan Problems (1) Puncture wound of left foot Status: Acute Problem Text: continue antibiotics , culture from ER staph epidermidis new cultures sent for OR. Incision and drainage in the OR on 12/17/16 showed Necrotic fat left heel, necrotic tendon left foot May again go back to or for wash out on 12/20/16 bone biopsy was sent to path (2) Cellulitis of left foot Status: Acute Problem Text: continue zosyn and vancomycin culture from OR coagulase negative staph . consulted ID PICC line will possibly need 6 weeks of antibiotics. (3) Osteomyelitis Status: Acute Problem Text: continue with antibiotics s/p debridement and bone biopsy on 12/17/16. Bone biopsy consistent with acute osteo. will prob total need 6 weeks of antibiotics. Has picc line (4) Acute kidney injury Status: Resolved Response to Treatment: Improving Problem Text: renal and bladder ultrasound no obstruction or urinary retention. (5) Hyperlipidemia Status: Chronic (6) Gout Status: Chronic (7) Hyponatremia Status: Resolved Problem Text: stable , possibly due to deficit (8) SARAH (obstructive sleep apnea) Status: Chronic Problem Text: has been prescribed CPAP at home does not use it here if having nocturnal desaturations will use oxygen supplementation during sleep and naps. (9) Diabetic neuropathy Status: Chronic (10) Diabetes Status: Chronic (11) Hypertension Status: Chronic Plan/VTE VTE Prophylaxis Ordered?: Yes VS, I&O, 24H, Tali Vital Signs/I&O Vital Signs Date Time Temp Pulse Resp B/P (MAP) Pulse Ox O2 Delivery O2 Flow Rate FiO2 12/20/16 08:01 20 12/20/16 07:49 71 150/71 12/20/16 06:00 98.1 90 Room Air 12/19/16 21:30 2.0 I&O- Last 24 Hours up to 6 AM 12/20/16 06:00 Intake Total 2250 ml Output Total 1000 ml Balance 1250 ml Laboratory Data 24H LABS Laboratory Tests 2 12/20/16 05:01: White Blood Count 15.7H, Red Blood Count 4.24L, Hemoglobin 12.0L, Hematocrit 36.8L, Mean Corpuscular Volume 86.6, Mean Corpuscular Hemoglobin 28.2, Mean Corpuscular Hemoglobin Concent 32.6, Red Cell Distribution Width 16.8H, Platelet Count 713H, Neutrophils (%) (Auto) 70.2H, Lymphocytes (%) (Auto) 14.8L , Monocytes (%) (Auto) 6.0H, Eosinophils (%) (Auto) 5.1H, Basophils (%) (Auto) 0.9, Neutrophils # (Auto) 11.0H, Lymphocytes # (Auto) 2.8, Monocytes # (Auto) 0.9H, Eosinophils # (Auto) 0.8H, Basophils # (Auto) 0.1, Large Unclassified Cells % 3.0, Large Unclassified Cells # 0.5H, Anion Gap 8, Glomerular Filtration Rate > 60.0, Blood Urea Nitrogen 24H, Creatinine 1.25, Sodium Level 137, Potassium Level 5.0, Chloride Level 103, Carbon Dioxide Level 26, Calcium Level 9.8, Aspartate Amino Transf (AST/SGOT) 21, Alanine Aminotransferase (ALT/ SGPT) 33, Alkaline Phosphatase 271H, Total Bilirubin 0.4, Total Protein 5.6#L, Albumin 2.3L, Magnesium Level 1.7L, C-Reactive Protein, Quantitative 7.39H, Albumin/Globulin Ratio 0.70L CBC/BMP Laboratory Tests 12/20/16 05:01 Red Blood Count 4.24 L, Mean Corpuscular Volume 86.6, Mean Corpuscular Hemoglobin 28.2, Mean Corpuscular Hemoglobin Concent 32.6, Red Cell Distribution Width 16.8 H, Neutrophils (%) (Auto) 70.2 H, Lymphocytes (%) (Auto ) 14.8 L, Monocytes (%) (Auto) 6.0 H, Eosinophils (%) (Auto) 5.1 H, Basophils (% ) (Auto) 0.9, Neutrophils # (Auto) 11.0 H, Lymphocytes # (Auto) 2.8, Monocytes # (Auto) 0.9 H, Eosinophils # (Auto) 0.8 H, Basophils # (Auto) 0.1, Calcium Level 9.8, Aspartate Amino Transf (AST/SGOT) 21, Alanine Aminotransferase (ALT/ SGPT) 33, Alkaline Phosphatase 271 H, Total Bilirubin 0.4, Total Protein 5.6 #L , Albumin 2.3 L Microbiology Microbiology 12/14/16 Blood Culture - Final, Complete NO GROWTH AFTER 5 DAYS 12/14/16 Blood Culture - Final, Complete NO GROWTH AFTER 5 DAYS 12/17/16 Wound Culture - Final, Complete Staphylococcus Sp Coag Neg 12/17/16 Wound Culture - Final, Complete Staphylococcus Sp Coag Neg 12/17/16 Anaerobic Culture, Received Pending 12/17/16 Anaerobic Culture, Received Pending 12/14/16 Gram Stain - Final, Complete 12/14/16 Wound Culture - Final, Complete Staphylococcus Epidermidis GRICELDA OBANDO MD Dec 20, 2016 08:26
[2016-12-20] MEDS ORDERED: MIDAZOLAM INJ 2 MG/2 ML VIAL (J2250) As Ordered ONE (08:38)
[2016-12-20] MEDS ORDERED: fentaNYL 100 MCG/2 ML INJECTION (J3010) As Ordered ONE (08:38)
[2016-12-20] MEDS ORDERED: LIDOCAINE 2% INJ 100 MG/5 ML SDV (FOR ANES.) As Ordered ONE (08:38)
[2016-12-20] MEDS ORDERED: PROPOFOL 200 MG/20 ML VIAL As Ordered ONE (08:38)
[2016-12-20] MEDS ORDERED: PERCOCET 5MG/325MG TAB PO PRN (09:45)
[2016-12-20] MEDS ORDERED: LR 1,000 ML IV SCH (09:45)
[2016-12-20] MEDS ORDERED: ONDANSETRON 4MG/2ML VIAL (J2405) IV PRN (09:45)
[2016-12-20] MEDS ORDERED: fentaNYL 100 MCG/2 ML INJECTION (J3010) IV PRN (09:45)
[2016-12-20] MEDS ORDERED: METOCLOPRAMIDE INJ 10MG/2ML VIAL (J2765) IV PRN (09:45)
[2016-12-20] MEDS: VANCOMYCIN HCL 1,000 MG, VIAL MATE ADAPTER 1 EACH in D5W 250 ML IV SCH ×2 (10:12→22:04)
--- NOTE | 2016-12-20 13:32 | IPN ---
DATE: 12/19/2016 The patient is seen and examined at bedside. He denies new overnight complaints. He did have some chest pain as he got out of bed going towards the bathroom. He believes he pulled his chest muscle. Chest x-ray was negative. He states his pain is about the same as yesterday. He denies fever, chills, nausea, or vomiting. Laboratories are reviewed. White blood cell count is 14.8, hemoglobin is 12.7, CRP is 13.8. OR wound cultures are all pending. The pathology confirmed that the sent bone had osteomyelitis as well as the tendon and necrotic fat. Lower extremity examination: There is persisting erythema and edema to the foot. There is some purulence noted in the more proximal incision, apparently coming more from the distal aspect of the wound. ASSESSMENT: A 56-year-old male with osteomyelitis and cellulitis following puncture wound, left foot. PLAN: We will repeat incision and drainage tomorrow morning. Make nothing by mouth at midnight. We will hold anticoagulants. Continue present antibiotics. Infectious disease has been consulted. Await operative cultures for further antibiotic management. The patient ultimately will require peripherally inserted central catheter (PICC) line for persisting treatment of the osteomyelitis. We will follow.
[2016-12-20] MEDS: oxyCODONE 5MG TAB PO PRN (16:53)
--- NOTE | 2016-12-20 17:56 | IPN ---
DATE: 12/19/2016 Mr. Herrera still does not feel very well. He complains of minimal pain to his foot, but he has severe neuropathy. He does not have any sensation to light touch or proprioception. He had an episode of right-sided chest pain this morning, which lasted about 2 hours. Cardiac enzymes were negative. It was felt to be muscular. He has had no fever or chills. The patient is scheduled to go for further debridement with Dr. Izaguirre. His last temperature was on December 16. No nausea, vomiting, or diarrhea. Temperature is 98.1, pulse 60, respirations 18, blood pressure 139/74, oxygen saturation 95% on room air. Heart: Normal S1, S2. No murmurs. Lungs: Clear. Abdomen: Morbidly obese, soft, nontender. Left leg erythema and cellulitis extending from the heel to the foot, all the way to the thigh with left inguinal adenopathy. There is faint rash extending to the thigh medially. The erythema of the foot with two incisions have been made, one through the calcaneus and another one through the medial aspect of the foot. There is just bloody discharge. No purulence noted. Wound cultures from the operating room (OR) on December 17 are pending, aerobic and anaerobic, two sets each. Cultures done on December 14 had only Staphylococcus epidermidis, which I suspect was a skin contaminant. Peripherally inserted central catheter (PICC) line was placed today. Chest x-ray, portable, done for chest pain was negative. IMPRESSION: Acute osteomyelitis of the calcaneus, status post incision and drainage. Patient on IV vancomycin and Zosyn. The patient has previous history of methicillin-resistant Staphylococcus aureus (MRSA) from the right foot. PLAN: Continue same antibiotics until the patient's wound cultures are available, then de-escalate therapy. The patient probably will need home IV antibiotics for a total of 6 weeks for acute osteomyelitis of the calcaneus. I will follow the patient as an outpatient. I will not be available for the next 2 weeks. The patient does not feel comfortable with a PICC line and home IV antibiotic, and that may need to be taken care of at an alternative level of care (ALC) level.
[2016-12-20] MEDS: ATORVASTATIN 10 MG TAB PO SCH (20:47)
[2016-12-20] MEDS: AMITRIPTYLINE 25 MG TAB PO SCH (20:47)
[2016-12-21] VITALS (8 sets, daily range): BP systolic 133–188; BP diastolic 80–90
[2016-12-21] MEDS: SODIUM CHLORIDE 0.9% INJ 10 ML SYR IV SCH ×2 (05:20→17:43)
[2016-12-21 05:34] LABS: BASO # 0.1 K/mm3 (0.0-0.2); BASO % 0.6 % (0.0-1.0); EOS # 0.7 K/mm3 (0.0-0.50); EOS % 4.1 % (0.0-3.0); LARGE UNSTAINED CELL # 0.4 K/mm3 (0.0-0.4); LARGE UNSTAINED CELL % 2.5 % (0.0-4.0); LYMPH # 2.6 K/mm3 (1.5-4.5); MEAN CORPUSCULAR HEMOGLOBIN 27.9 pg (27.0-33.0); MEAN CORPUSCULAR HGB CONC 32.1 g/dl (32.0-36.5); MEAN CORPUSCULAR VOLUME 86.9 fl (80.0-96.0); MONO # 0.7 K/mm3 (0.0-0.8); MONO % 4.2 % (0.0-5.0); NEUTROPHILS # 11.9 K/mm3 (1.8-7.7); NEUTROPHILS % 74.5 % (36.0-66.0); PLATELET COUNT, AUTOMATED 717 k/mm3 (150-450); RED CELL DISTRIBUTION WIDTH 16.8 % (11.5-14.5)
[2016-12-21 05:58] LABS: ALBUMIN 2.3 GM/DL (3.2-5.2); ALBUMIN/GLOBULIN RATIO 0.72 (1.00-1.93); ALKALINE PHOSPHATASE 237 U/L (45-117); ALT/SGPT 31 U/L (12-78); ANION GAP 8 MEQ/L (8-16); AST/SGOT 16 U/L (15-37); BILIRUBIN,TOTAL 0.5 MG/DL (0.2-1.0); BLOOD UREA NITROGEN 18 MG/DL (7-18); CALCIUM LEVEL 9.7 MG/DL (8.5-10.1); CARBON DIOXIDE LEVEL 27 MEQ/L (21-32); CHLORIDE LEVEL 105 MEQ/L (98-107); CREATININE FOR GFR 1.18 MG/DL (0.70-1.30); GLOMERULAR FILTRATION RATE > 60.0 (>56); GLUCOSE, FASTING 202 MG/DL (70-105); MAGNESIUM LEVEL 1.6 MG/DL (1.8-2.4); POTASSIUM SERUM 4.9 MEQ/L (3.5-5.1); SODIUM LEVEL 140 MEQ/L (136-145); TOTAL PROTEIN 5.5 GM/DL (6.4-8.2)
[2016-12-21] MEDS: MAG SULF 1GM/100ML (MAG RUN) 1 GM in APPROPRIATE DILUENT 1 EA IV SCH ×2 (07:26→09:50)
[2016-12-21] MEDS: HumaLOG INSULIN (NovoLOG) PER UNIT SC SCH ×4 (07:26→21:00)
[2016-12-21] MEDS: PIPERACILLIN/TAZOBACTAM SOD 3.375 GM in D5W MINI-BAG PLUS 50 ML IV SCH ×2 (07:26→15:00)
[2016-12-21] MEDS: buPROPion **XL** TABLET 150MG (WELLBUTRIN XL) PO SCH ×2 (09:00→09:57)
[2016-12-21] MEDS: oxyCODONE 15 MG CR TAB PO SCH ×2 (09:47→22:00)
[2016-12-21] MEDS: PRIMIDONE 50 MG TAB PO SCH ×2 (09:49→21:58)
[2016-12-21] MEDS: VITAMIN D 1,000 INTERNATIONAL UNITS TABLET PO SCH (09:49)
[2016-12-21] MEDS: SENOKOT S TAB PO SCH ×2 (09:49→21:58)
[2016-12-21] MEDS: ASPIRIN 81 MG ENTERIC TAB PO SCH (09:49)
[2016-12-21] MEDS: ALLOPURINOL 100 MG TAB PO SCH (09:49)
[2016-12-21] MEDS: amLODIPine 5 MG TAB PO SCH ×2 (09:49→21:58)
[2016-12-21] MEDS: PANTOPRAZOLE 40MG TAB (PROTONIX) PO SCH (09:50)
[2016-12-21] MEDS: VANCOMYCIN HCL 1,000 MG, VIAL MATE ADAPTER 1 EACH in D5W 250 ML IV SCH ×2 (09:50→17:42)
[2016-12-21] MEDS: GLIMEPIRIDE 2 MG TAB PO SCH (09:58)
--- NOTE | 2016-12-21 10:27 | IPNPDOC ---
Subjective Date Seen The patient was seen on 12/21/16. Subjective Chief Complaint/HPI The patient is a 56-year-old male admitted with a reason for visit of Acute Kidney Injury,Cellulitis Of Left Foot. Events since last encounter No complaints today , went to OR on 12/20/16, No fever or chills, no chest pain or sob , continues to have left foot soreness and redness, Objective Physical Examination General Exam: Positive: Alert, Cooperative, No Acute Distress Eye Exam: Positive: PERRLA, Conjunctiva & lids normal, EOMI ENT Exam: Positive: Atraumatic, Mucous membr. moist/pink, Pharynx Normal Neck Exam: Positive: Supple Chest Exam: Positive: Clear to auscultation, Normal air movement Heart Exam: Positive: Rate Normal, Regular Rhythm, Normal S1, Normal S2 Abdomen Exam: Positive: Normal bowel sounds, Soft Extremity Exam: Positive: Normal pulses Skin Exam: Positive: Lesion Assessment /Plan Problems (1) Puncture wound of left foot Status: Acute Problem Text: continue antibiotics , culture from ER staph epidermidis new cultures sent for OR. Incision and drainage in the OR on 12/17/16 showed Necrotic fat left heel, necrotic tendon left foot went back to OR for wash out on 12/20/16 bone biopsy shows acute osteomyelitis of the calcaneum (2) Cellulitis of left foot Status: Acute Problem Text: continue zosyn and vancomycin culture from OR coagulase negative staph . consulted ID PICC line will possibly need 6 weeks of antibiotics. (3) Osteomyelitis Status: Acute Problem Text: continue with antibiotics s/p debridement and bone biopsy on 12/17/16. Bone biopsy consistent with acute osteo of calcaneum will prob total need 6 weeks of antibiotics. Has picc line (4) Acute kidney injury Status: Resolved Problem Text: renal and bladder ultrasound no obstruction or urinary retention. (5) Hyperlipidemia Status: Chronic (6) Gout Status: Chronic (7) Hyponatremia Status: Resolved Problem Text: stable , possibly due to deficit (8) SARAH (obstructive sleep apnea) Status: Chronic Problem Text: has been prescribed CPAP at home does not use it here if having nocturnal desaturations will use oxygen supplementation during sleep and naps. (9) Diabetic neuropathy Status: Chronic (10) Diabetes Status: Chronic (11) Hypertension Status: Chronic Plan/VTE VTE Prophylaxis Ordered?: Yes VS, I&O, 24H, Fishbone Vital Signs/I&O Vital Signs Date Time Temp Pulse Resp B/P (MAP) Pulse Ox O2 Delivery O2 Flow Rate FiO2 12/21/16 09:49 66 159/80 12/21/16 09:47 20 12/21/16 06:00 98.1 97 Nasal Cannula 12/20/16 21:00 2.0 I&O- Last 24 Hours up to 6 AM 12/21/16 06:00 Intake Total 2180 ml Output Total 2210 ml Balance -30 ml Laboratory Data 24H LABS Laboratory Tests 2 12/20/16 20:15: Bedside Glucose (Misc Panel) 248H 12/21/16 05:18: White Blood Count 16.0H, Red Blood Count 4.37, Hemoglobin 12.2L, Hematocrit 38.0L, Mean Corpuscular Volume 86.9, Mean Corpuscular Hemoglobin 27.9, Mean Corpuscular Hemoglobin Concent 32.1, Red Cell Distribution Width 16.8H, Platelet Count 717H, Neutrophils (%) (Auto) 74.5H, Lymphocytes (%) (Auto) 14.0L , Monocytes (%) (Auto) 4.2, Eosinophils (%) (Auto) 4.1H, Basophils (%) (Auto) 0.6, Neutrophils # (Auto) 11.9H, Lymphocytes # (Auto) 2.6, Monocytes # (Auto) 0.7, Eosinophils # (Auto) 0.7H, Basophils # (Auto) 0.1, Large Unclassified Cells % 2.5, Large Unclassified Cells # 0.4, Anion Gap 8, Glomerular Filtration Rate > 60.0, Blood Urea Nitrogen 18, Creatinine 1.18, Sodium Level 140, Potassium Level 4.9, Chloride Level 105, Carbon Dioxide Level 27, Calcium Level 9.7, Aspartate Amino Transf (AST/SGOT) 16, Alanine Aminotransferase (ALT/SGPT) 31, Alkaline Phosphatase 237H, Total Bilirubin 0.5, Total Protein 5.5L, Albumin 2.3L, Magnesium Level 1.6L, Albumin/Globulin Ratio 0.72L CBC/BMP Laboratory Tests 12/21/16 05:18 Red Blood Count 4.37, Mean Corpuscular Volume 86.9, Mean Corpuscular Hemoglobin 27.9, Mean Corpuscular Hemoglobin Concent 32.1, Red Cell Distribution Width 16.8 H, Neutrophils (%) (Auto) 74.5 H, Lymphocytes (%) (Auto) 14.0 L, Monocytes (%) (Auto) 4.2, Eosinophils (%) (Auto) 4.1 H, Basophils (%) (Auto) 0.6, Neutrophils # (Auto) 11.9 H, Lymphocytes # (Auto) 2.6, Monocytes # (Auto) 0.7, Eosinophils # (Auto) 0.7 H, Basophils # (Auto) 0.1, Calcium Level 9.7, Aspartate Amino Transf (AST/SGOT) 16, Alanine Aminotransferase (ALT/SGPT) 31, Alkaline Phosphatase 237 H, Total Bilirubin 0.5, Total Protein 5.5 L, Albumin 2.3 L Microbiology Microbiology 12/14/16 Blood Culture - Final, Complete NO GROWTH AFTER 5 DAYS 12/14/16 Blood Culture - Final, Complete NO GROWTH AFTER 5 DAYS 12/20/16 Gram Stain - Final, Resulted 12/20/16 Wound Culture, Resulted Pending 12/20/16 Anaerobic Culture, Resulted Pending 12/17/16 Wound Culture - Final, Complete Staphylococcus Sp Coag Neg 12/17/16 Wound Culture - Final, Complete Staphylococcus Sp Coag Neg 12/17/16 Anaerobic Culture, Received Pending 12/17/16 Anaerobic Culture, Received Pending 12/14/16 Gram Stain - Final, Complete 12/14/16 Wound Culture - Final, Complete Staphylococcus Epidermidis GRICELDA OBANDO MD Dec 21, 2016 10:27
--- NOTE | 2016-12-21 10:30 | RO ---
DATE OF PROCEDURE: 12/20/2016 PREPROCEDURE DIAGNOSIS: Left foot cellulitis and osteomyelitis. POSTPROCEDURE DIAGNOSIS: Left foot cellulitis and osteomyelitis. PROCEDURE: Left foot incision and drainage and debridement. SURGEON: Manish Izaguirre DPM CYTOTECHNOLOGIST/CYTOLOGY SUPERVISOR: None. ANESTHESIA: Monitored anesthesia care (MAC) and preoperative injection of 20 mL of 1:1 mixture of 1% lidocaine plain and 0.50% Marcaine plain. ESTIMATED BLOOD LOSS: 10 mL. HEMOSTASIS: Pneumatic calf tourniquet. SPECIMENS: Necrotic tissue left foot. Aerobic and anaerobic cultures. COMPLICATIONS: None. CONDITION: Stable. Jovanny Herrera is a 56-year-old male who had been admitted with left foot infection following a puncture wound. He had incision and drainage performed earlier this admission. He has been IV antibiotics. He has had persisting elevated white cell count and CRP as well as persisting redness and some purulence in the wound. A decision was made to bring him for repeat incision and drainage today. Patient side and site were identified and marked in preoperative holding area. Consent was reviewed and obtained. All risks, complications and alternatives to the procedure were explained to the patient in detail. All questions were answered. DESCRIPTION OF PROCEDURE: The patient was brought to the operating room and placed on the operating room table in supine position. Monitored anesthesia care was delivered by the anesthesia team. Preoperative injection of 20 mL of 1:1 mixture of 1% lidocaine plain and 0.50% Marcaine plain were injected to the left ankle. The left foot was prepped and draped in a normal sterile fashion. A tourniquet was applied to the left calf and inflated to 250 mmHg. Wounds were inspected. There was noted purulence from the more proximal incision site. Following cleanse, deep cultures were taken, aerobic and anaerobic. Some necrotic tissue was identified in both the plantar and medial wounds. This was debrided free with rongeur and a #15 blade. Some tissue from the medial wound was sent for pathology. A hemostat was used to widen the tunnel connecting the two incision sites and each site was extended with a #15 blade. Site was irrigated with 1500 mL using pulse irrigation. Following this, no further purulence was identified. Cautery was used to obtain hemostasis to some small bleeding vessels. Some further debridement was performed on some nonviable tissue. Following this, an additional 1500 mL were irrigated through the wound. Following this, packing was applied using a single piece of Kerlix extending from the medial incision through the tunnel and exiting the plantar incision. Gauze dressings, Kerlix, ABDs were applied following this. The patient was sent to postanesthesia care unit (PACU) with vital signs stable and neurovascular status intact. He will be readmitted to the floor for continued antibiotics. Will continue to monitor the wound and assess need for further clean out procedures. DESCRIPTION OF PROCEDURE:
[2016-12-21 11:19] LABS: VANCOMYCIN RANDOM 13.7 UG/ML
--- NOTE | 2016-12-21 11:32 | PHACANCOPD ---
PHARMACY VANCOMYCIN DOSING Pt Demographics Demographics Patient Age:56 , Weight:133.000 , Gender: male Adjusted Body Weight Date: 12/21/16, Adjusted Body Weight: [106] Kg Events Past 24 Hours Events Past 24 Hours: NO: Dialysis, Diuretic Therapy, Change in CrCl, Fever, Elevation in WBC, Pending Diagnostics, Pending Procedures, Other Vancomycin Vancomycin indication: L.FOOT CELLULITIS(MRSA COVERAGE) Vancomycin Target Ranges: 15-20 mcg/ml Vancomycin Load Y/N: No Load Dose Date Time Vancomycin Load Dose: Date: Time: Vancomycin Dose Date: 12/21/16. Current Vancomycin Dose: [1g IV q8h @18] Date: 12/15/16. Current Vancomycin Dose: [1 GM IV Q12@06] Intermittent Dosing?: No Labs Labs Item Value Date Time White Blood Count 15.7 K/mm3 H 12/20/16 0501 White Blood Count 16.0 K/mm3 H 12/21/16 0518 White Blood Count 14.8 K/mm3 H 12/19/16 0547 Random Vancomycin Level 13.7 UG/ML 12/21/16 0518 Vancomycin Level Trough 16.6 UG/ML 12/17/16 1936 Creatinine 1.53 MG/DL H 12/19/16 0547 Creatinine 1.25 MG/DL 12/20/16 0501 Creatinine 1.18 MG/DL 12/21/16 0518 Micro Microbiology 12/14/16 Blood Culture - Final, Complete NO GROWTH AFTER 5 DAYS 12/14/16 Blood Culture - Final, Complete NO GROWTH AFTER 5 DAYS 12/20/16 Gram Stain - Final, Resulted 12/20/16 Wound Culture, Resulted Pending 12/20/16 Anaerobic Culture, Resulted Pending 12/17/16 Wound Culture - Final, Complete Staphylococcus Sp Coag Neg 12/17/16 Wound Culture - Final, Complete Staphylococcus Sp Coag Neg 12/17/16 Anaerobic Culture, Received Pending 12/17/16 Anaerobic Culture, Received Pending 12/14/16 Gram Stain - Final, Complete 12/14/16 Wound Culture - Final, Complete Staphylococcus Epidermidis Creatinine Clearance Date:12/21/16. Creatinine Clearance: [>100 ml/min using adjusted BW]. Date:12/15/16. Creatinine Clearance: [54].CALCULATED Assessment and Plan Maintaining Current Dose?: Yes Reason for dose change: Trough too low Pharmacist Note Pharmacist Note Date: 12/21/16. Pharmacist note: SCr has significantly improved since admission, random vancomycin level drawn ~5 hours before the dose was 13.7. I have changed his dosing to 1g IV q8h. Wound cultures positive for staph coag neg and staph epi (ANTOINE = 1), cultures from surgery yesterday are pending. Pt is currently on day #8 of vancomycin and Zosyn therapy. We will continue to monitor cultures and renal function. Ángel Schmidt Pharm.D. Dec 21, 2016 11:32
[2016-12-21] MEDS: ACETAMINOPHEN TAB 650MG DOSE (2X325MG) PO PRN (12:53)
[2016-12-21] MEDS: HEPARIN SOD (PORCINE) 5000 UNITS/ML VIAL SC SCH ×2 (15:00→21:58)
--- NOTE | 2016-12-21 15:18 | IPN ---
DATE: 12/21/2016 SUBJECTIVE: Patient seen and examined at bedside. Denies new overnight complaints. States foot feels maybe a little bit better than yesterday. Negative for nausea, vomiting, fever or chills. Temperature has been afebrile over 24 hours. Labs are reviewed. White blood cell count remains elevated at 16, hemoglobin is 12.2. MICROBIOLOGY: The repeat wound cultures from the operating room are pending. Presently the only growth available is Staphylococcus epidermidis which was oxacillin resistant and coagulase negative staphylococcus which is oxacillin sensitive. Both of these organisms do most frequently represent skin contaminants. LOWER EXTREMITY EXAMINATION: There has been moderate improvement in the erythema and edema to the foot. Erythema is now most localized just to the periphery of the wound. Upon packing removal, no purulence is noted. Wound base is improved in terms of necrotic tissue. ASSESSMENT: A 56-year-old male with cellulitis, osteomyelitis of calcaneus, status post incision and drainage. PLAN: 1. Continue saline wet-to-dry three times daily presently. Continue current antibiotics. I am hopeful the repeat wound culture yields better speciation. Suspect there may be poor ability to obtain good growth as he has been on antibiotics prior to the culture. He has had methicillin-resistant Staphylococcus aureus (MRSA) in his foot infections in the past, so at the very least would continue coverage for this. He will ultimately need six weeks antibiotic therapy. 2. Would consult clinical social work aide for evaluation for placement in a stepdown care facility. The patient does express concerns about being able to take care of himself, both in terms of wound dressings and antibiotics once he is ultimately ready for discharge. Would agree at least in the short term that additional care is warranted. 3. Did discuss possibility of amputation of his lower extremity due to the severity nature of the infection. The patient greatly wishes to avoid this and wishes to pursue all reasonable treatments in effort to safe his leg. At this time, limb salvage is a possibility but did discuss could not guarantee this due to the nature of bone infection in his heel bone. Should this fail to heal or worsen, discussed that below-knee amputation ultimately may be what is required. Presently we will continue to pursue limb salvage through antibiotics, debridements, and other care as deemed necessary.
[2016-12-21] MEDS: cloNIDine 0.1 MG TAB PO SCH ×2 (15:54→21:59)
[2016-12-21] MEDS ORDERED: HEPARIN SOD (PORCINE) 5000 UNITS/ML VIAL As Ordered ONE (21:44)
[2016-12-21] MEDS: AMITRIPTYLINE 25 MG TAB PO SCH (21:58)
[2016-12-21] MEDS: ATORVASTATIN 10 MG TAB PO SCH (21:58)
[2016-12-22] MEDS: PIPERACILLIN/TAZOBACTAM SOD 3.375 GM in D5W MINI-BAG PLUS 50 ML IV SCH ×2 (00:24→09:10)
[2016-12-22] MEDS: VANCOMYCIN HCL 1,000 MG, VIAL MATE ADAPTER 1 EACH in D5W 250 ML IV SCH ×3 (01:41→18:22)
[2016-12-22 02:00] VITALS: BP 142/71
[2016-12-22 06:00] VITALS: BP 157/91
[2016-12-22] MEDS: cloNIDine 0.1 MG TAB PO SCH ×3 (06:00→20:09)
[2016-12-22] MEDS: HEPARIN SOD (PORCINE) 5000 UNITS/ML VIAL SC SCH ×3 (06:10→21:04)
[2016-12-22] MEDS: SODIUM CHLORIDE 0.9% INJ 10 ML SYR IV SCH ×2 (06:10→18:23)
[2016-12-22] MEDS: GLIMEPIRIDE 2 MG TAB PO SCH ×2 (07:30→09:13)
[2016-12-22] MEDS: HumaLOG INSULIN (NovoLOG) PER UNIT SC SCH ×4 (09:13→21:52)
[2016-12-22] MEDS: oxyCODONE 15 MG CR TAB PO SCH ×2 (09:13→21:05)
[2016-12-22 09:15] VITALS: BP 145/70
--- NOTE | 2016-12-22 09:43 | IPNPDOC ---
Subjective Date Seen The patient was seen on 12/22/16. Subjective Chief Complaint/HPI The patient is a 56-year-old male admitted with a reason for visit of Acute Kidney Injury,Cellulitis Of Left Foot. Events since last encounter no complaints this am , redness and swelling of left foot is less today Objective Physical Examination General Exam: Positive: Alert, Cooperative, No Acute Distress Eye Exam: Positive: PERRLA, Conjunctiva & lids normal, EOMI ENT Exam: Positive: Atraumatic, Mucous membr. moist/pink, Pharynx Normal Neck Exam: Positive: Supple Chest Exam: Positive: Clear to auscultation, Normal air movement Heart Exam: Positive: Rate Normal, Regular Rhythm, Normal S1, Normal S2 Abdomen Exam: Positive: Normal bowel sounds, Soft Extremity Exam: Positive: Normal pulses Skin Exam: Positive: Lesion Assessment /Plan Problems (1) Puncture wound of left foot Status: Acute Problem Text: continue antibiotics , culture from ER staph epidermidis new cultures sent for OR. Incision and drainage in the OR on 12/17/16 showed Necrotic fat left heel, necrotic tendon left foot went back to OR for wash out on 12/20/16 bone biopsy shows acute osteomyelitis of the calcaneum (2) Cellulitis of left foot Status: Acute Problem Text: continue zosyn and vancomycin culture from OR coagulase negative staph . consulted ID PICC line will possibly need 6 weeks of antibiotics. (3) Osteomyelitis Status: Acute Problem Text: continue with antibiotics s/p debridement and bone biopsy on 12/17/16. Bone biopsy consistent with acute osteo of calcaneum will prob total need 6 weeks of antibiotics. Has picc line (4) Acute kidney injury Status: Resolved Problem Text: renal and bladder ultrasound no obstruction or urinary retention. (5) Hyperlipidemia Status: Chronic (6) Gout Status: Chronic (7) Hyponatremia Status: Resolved Problem Text: stable , possibly due to deficit (8) SARAH (obstructive sleep apnea) Status: Chronic Problem Text: has been prescribed CPAP at home does not use it here if having nocturnal desaturations will use oxygen supplementation during sleep and naps. (9) Diabetic neuropathy Status: Chronic (10) Diabetes Status: Chronic (11) Hypertension Status: Chronic Plan/VTE VTE Prophylaxis Ordered?: Yes VS, I&O, 24H, Fishbone Vital Signs/I&O Vital Signs Date Time Temp Pulse Resp B/P (MAP) Pulse Ox O2 Delivery O2 Flow Rate FiO2 12/22/16 09:15 59 18 145/70 (95) 95 Room Air 12/22/16 06:00 98.6 12/21/16 20:50 2.0 I&O- Last 24 Hours up to 6 AM 12/22/16 06:00 Intake Total 2640 ml Output Total 1950 ml Balance 690 ml Laboratory Data 24H LABS Laboratory Tests 2 12/21/16 20:58: Bedside Glucose (Misc Panel) 243H Microbiology Microbiology 12/14/16 Blood Culture - Final, Complete NO GROWTH AFTER 5 DAYS 12/14/16 Blood Culture - Final, Complete NO GROWTH AFTER 5 DAYS 12/20/16 Gram Stain - Final, Complete 12/20/16 Wound Culture - Final, Complete 12/20/16 Anaerobic Culture - Final, Complete 12/17/16 Wound Culture - Final, Complete Staphylococcus Sp Coag Neg 12/17/16 Wound Culture - Final, Complete Staphylococcus Sp Coag Neg 12/17/16 Anaerobic Culture, Received Pending 12/17/16 Anaerobic Culture, Received Pending 12/14/16 Gram Stain - Final, Complete 12/14/16 Wound Culture - Final, Complete Staphylococcus Epidermidis GRICELDA OBANDO MD Dec 22, 2016 09:43
[2016-12-22] MEDS: VITAMIN D 1,000 INTERNATIONAL UNITS TABLET PO SCH (10:50)
[2016-12-22] MEDS: PRIMIDONE 50 MG TAB PO SCH ×2 (10:51→21:04)
[2016-12-22] MEDS: PANTOPRAZOLE 40MG TAB (PROTONIX) PO SCH (10:51)
[2016-12-22] MEDS: SENOKOT S TAB PO SCH ×2 (10:51→21:05)
[2016-12-22] MEDS: ASPIRIN 81 MG ENTERIC TAB PO SCH (10:51)
[2016-12-22] MEDS: ALLOPURINOL 100 MG TAB PO SCH (10:52)
[2016-12-22] MEDS: amLODIPine 5 MG TAB PO SCH ×2 (10:52→21:06)
[2016-12-22] MEDS: buPROPion **XL** TABLET 150MG (WELLBUTRIN XL) PO SCH (11:24)
[2016-12-22 14:00] VITALS: BP 143/86
[2016-12-22] MEDS: ACETAMINOPHEN TAB 650MG DOSE (2X325MG) PO PRN (14:13)
[2016-12-22 14:20] VITALS: BP 138/79
[2016-12-22] MEDS: oxyCODONE 5MG TAB PO PRN (16:02)
--- NOTE | 2016-12-22 18:32 | IPN ---
DATE: 12/22/2016 The patient is seen and examined at bedside. Denies overnight complaints. Negative for nausea, vomiting, fever, or chills. States pain slightly improved. Does note some tingling to his foot. Labs are reviewed. White blood cell count remains elevated at 16. The repeat operating room (OR) cultures did not grow anything. The anaerobic cultures are still pending at this time. LOWER EXTREMITY EXAMINATION: Surrounding erythema from the foot has improved. There is still some purulence from the proximal wound, apparently extending from the level of the ankle. Plantar wound appears to be without further purulence. ASSESSMENT: This is a 56-year-old male with left foot cellulitis and calcaneal osteomyelitis with persisting elevated white cell count. PLAN: Will discontinue Zosyn. The cultures we have grown have been Staphylococcus aureus, albeit generally skin jean. Will continue the vancomycin for empiric methicillin-resistant Staphylococcus aureus (MRSA) coverage as he has had this organism in the past. Will discontinue Zosyn and assess infection and plan for a repeat incision and drainage with implantation of antibiotic beads for tomorrow afternoon. He will be nothing by mouth after morning. Hold morning anticoagulation. Patient will be discharged on peripherally inserted central catheter (PICC) line, likely vancomycin, ideally to a rehabilitation or specialty care facility.
[2016-12-22] MEDS ORDERED: HEPARIN SOD (PORCINE) 5000 UNITS/ML VIAL As Ordered ONE (20:58)
[2016-12-22] MEDS: ATORVASTATIN 10 MG TAB PO SCH (21:05)
[2016-12-22] MEDS: AMITRIPTYLINE 25 MG TAB PO SCH (21:05)
[2016-12-22 22:00] VITALS: BP 139/74
[2016-12-23] MEDS: VANCOMYCIN HCL 1,000 MG, VIAL MATE ADAPTER 1 EACH in D5W 250 ML IV SCH ×3 (01:21→18:27)
[2016-12-23] MEDS: SODIUM CHLORIDE 0.9% INJ 10 ML SYR IV SCH ×2 (05:45→18:27)
[2016-12-23 05:52] LABS: BASO # 0.1 K/mm3 (0.0-0.2); BASO % 0.7 % (0.0-1.0); EOS # 0.6 K/mm3 (0.0-0.50); LARGE UNSTAINED CELL # 0.3 K/mm3 (0.0-0.4); LARGE UNSTAINED CELL % 1.7 % (0.0-4.0); LYMPH # 2.4 K/mm3 (1.5-4.5); LYMPH % 14.2 % (24.0-44.0); MEAN CORPUSCULAR HEMOGLOBIN 27.9 pg (27.0-33.0); MEAN CORPUSCULAR HGB CONC 31.8 g/dl (32.0-36.5); MEAN CORPUSCULAR VOLUME 87.8 fl (80.0-96.0); MONO # 0.6 K/mm3 (0.0-0.8); NEUTROPHILS # 11.4 K/mm3 (1.8-7.7); NEUTROPHILS % 75.4 % (36.0-66.0); PLATELET COUNT, AUTOMATED 685 k/mm3 (150-450); RED CELL DISTRIBUTION WIDTH 16.7 % (11.5-14.5)
[2016-12-23] MEDS: cloNIDine 0.1 MG TAB PO SCH ×3 (05:59→21:12)
[2016-12-23 06:00] VITALS: BP 140/80
[2016-12-23 06:24] LABS: ANION GAP 7 MEQ/L (8-16); BLOOD UREA NITROGEN 16 MG/DL (7-18); CALCIUM LEVEL 10.2 MG/DL (8.5-10.1); CARBON DIOXIDE LEVEL 28 MEQ/L (21-32); CHLORIDE LEVEL 104 MEQ/L (98-107); CREATININE FOR GFR 1.03 MG/DL (0.70-1.30); GLOMERULAR FILTRATION RATE > 60.0 (>56); GLUCOSE, FASTING 151 MG/DL (70-105); POTASSIUM SERUM 4.9 MEQ/L (3.5-5.1); SODIUM LEVEL 139 MEQ/L (136-145)
[2016-12-23] MEDS: HumaLOG INSULIN (NovoLOG) PER UNIT SC SCH ×4 (07:30→21:38)
[2016-12-23] MEDS: GLIMEPIRIDE 2 MG TAB PO SCH (07:30)
[2016-12-23] MEDS: ASPIRIN 81 MG ENTERIC TAB PO SCH (09:00)
[2016-12-23] MEDS: oxyCODONE 15 MG CR TAB PO SCH ×2 (09:29→21:05)
[2016-12-23] MEDS: PRIMIDONE 50 MG TAB PO SCH ×2 (09:30→21:06)
[2016-12-23] MEDS: VITAMIN D 1,000 INTERNATIONAL UNITS TABLET PO SCH (09:30)
[2016-12-23] MEDS: PANTOPRAZOLE 40MG TAB (PROTONIX) PO SCH (09:31)
[2016-12-23] MEDS: buPROPion **XL** TABLET 150MG (WELLBUTRIN XL) PO SCH (09:31)
[2016-12-23] MEDS: amLODIPine 5 MG TAB PO SCH ×2 (09:31→21:11)
[2016-12-23] MEDS: ALLOPURINOL 100 MG TAB PO SCH (09:31)
[2016-12-23] MEDS: SENOKOT S TAB PO SCH ×2 (09:31→21:06)
[2016-12-23] MEDS: oxyCODONE 5MG TAB PO PRN ×2 (12:19→23:38)
[2016-12-23 14:00] VITALS: BP 139/79
[2016-12-23] MEDS: ACETAMINOPHEN TAB 650MG DOSE (2X325MG) PO PRN (14:27)
[2016-12-23] MEDS ORDERED: LIDOCAINE 1% MDV 20ML VIAL As Ordered ONE (16:03)
[2016-12-23] MEDS ORDERED: BUPIVACAINE HCL 0.5% 10 ML VIAL As Ordered ONE (16:03)
[2016-12-23] MEDS ORDERED: VANCOMYCIN HCL 500 MG/10 ML VIAL (J3370) As Ordered ONE (16:55)
[2016-12-23] MEDS ORDERED: PROPOFOL 200 MG/20 ML VIAL As Ordered ONE (16:59)
[2016-12-23] MEDS ORDERED: fentaNYL 100 MCG/2 ML INJECTION (J3010) As Ordered ONE (16:59)
[2016-12-23] MEDS ORDERED: MIDAZOLAM INJ 2 MG/2 ML VIAL (J2250) As Ordered ONE (16:59)
[2016-12-23] MEDS ORDERED: LIDOCAINE 2% INJ 100 MG/5 ML SDV (FOR ANES.) As Ordered ONE (16:59)
[2016-12-23] MEDS ORDERED: ONDANSETRON 4MG/2ML VIAL (J2405) IV PRN (18:15)
[2016-12-23] MEDS ORDERED: NS 1,000 ML IV SCH (18:15)
[2016-12-23] MEDS ORDERED: fentaNYL 100 MCG/2 ML INJECTION (J3010) IV PRN (18:15)
[2016-12-23 18:20] VITALS: BP 157/77
--- NOTE | 2016-12-23 19:17 | IPNPDOC ---
Date Seen The patient was seen on 12/23/16. Progress Note Hospitalist Progress Note Subjective: The patient does not have any complaints. He is currently nothing by mouth and awaiting his return trip to the operating room. Objective: Physical Exam: Vitals: Vital Sign - Last 24 Hours 12/22/16 12/22/16 12/22/16 12/22/16 20:09 21:00 21:05 21:06 Pulse 72 Resp 16 B/P (MAP) 139/74 139/74 O2 Delivery Nasal Cannula O2 Flow Rate 2.0 12/22/16 12/23/16 12/23/16 12/23/16 22:00 05:59 06:00 09:00 Temp 97.7 98.9 Pulse 73 61 Resp 20 18 B/P (MAP) 139/74 (95) 140/80 140/80 (100) Pulse Ox 95 95 O2 Delivery Room Air Room Air Room Air 12/23/16 12/23/16 12/23/16 12/23/16 09:29 09:31 12:19 12:49 Pulse 61 Resp 18 20 20 B/P (MAP) 140/80 O2 Delivery Room Air 12/23/16 12/23/16 12/23/16 12/23/16 14:00 17:53 17:55 18:00 Temp 97.8 97.0 Pulse 73 60 62 58 Resp 18 18 18 18 B/P (MAP) 139/79 (99) 146/83 (104) 146/93 (110) Pulse Ox 95 97 97 97 O2 Delivery Room Air Room Air Room Air Room Air 12/23/16 12/23/16 12/23/16 18:05 18:10 18:20 Temp 97.1 Pulse 57 57 60 Resp 18 18 16 B/P (MAP) 148/85 (106) 148/89 (108) 157/77 (103) Pulse Ox 97 96 98 O2 Delivery Room Air Room Air Room Air General: Awake, alert, no acute distress HEENT: Normocephalic, atraumatic, extraocular movements intact CV: Regular rate and rhythm Lungs: Clear to auscultation bilaterally Abd: Soft, nontender, nondistended Extremities: Pedal pulses intact bilaterally Neuro: Alert and oriented 3, normal speech Psych: Normal Mood and affect Labs and Imaging: Laboratory Tests 12/23/16 05:43 Red Blood Count 4.50, Mean Corpuscular Volume 87.8, Mean Corpuscular Hemoglobin 27.9, Mean Corpuscular Hemoglobin Concent 31.8 L, Red Cell Distribution Width 16.7 H, Neutrophils (%) (Auto) 75.4 H, Lymphocytes (%) (Auto) 14.2 L, Monocytes (%) (Auto) 4.0, Eosinophils (%) (Auto) 4.0 H, Basophils (%) (Auto) 0.7, Neutrophils # (Auto) 11.4 H, Lymphocytes # (Auto) 2.4, Monocytes # (Auto) 0.6, Eosinophils # (Auto) 0.6 H, Basophils # (Auto) 0.1, Calcium Level 10.2 H Assessment and Plan: 56-year-old male with diabetes mellitus type 2, hypertension, hyperlipidemia, depression, anxiety, gout, peripheral neuropathy who presented to the emergency department after he stepped on a metal hayder that got embedded in his foot. He was admitted with cellulitis and has now also been found to have osteomyelitis of the left calcaneus. 1. Osteomyelitis and cellulitis: The patient was febrile upon admission, but fevers have now resolved. CRP is drastically improved, however, his white count has only improved from 16.8-15.1. Blood cultures are negative, but cultures of the foot are growing staph epi, and we'll continue the patient on IV vancomycin. He will need 6 weeks worth of antibiotics. The patient has been seen by Dr. Ivory of infectious disease, but at this time, she is not available for the next 2 weeks. However, her most recent note stated that the patient should have 6 weeks of IV antibiotics tailored to his cultures. Dr. Izaguirre of podiatry is also following the patient, and we greatly appreciate his help. He is going back to the operating room today for implantation of antibiotic beads. Pain control with long-acting OxyContin 60 mg by mouth twice a day, and OXYIR 10 mg for breakthrough 2. Diabetes mellitus type 2: A1c is 8.4. We are currently holding the patient's home metformin and invokana. Continue Clement for a ride, as well as sliding scale insulin while in-house. 3. Acute kidney injury: This is present on admission, but has now resolved. We are currently holding the patient's home RUPAL inhibitor. Continue to monitor closely. 4. Thrombocytosis: Patient's platelets have been elevated in the 600-700 range. I suspect that this is reactive from his infection. We will continue to monitor 5. Hyponatremia: This was present upon admission but has now resolved. We are currently holding his home HCTZ. Continue to monitor. 6. Hypertension: Currently holding home RUPAL inhibitor and HCTZ. Continue the Norvasc and clonidine which was started here. 7. Hyperlipidemia: Continue home statin. 8. Depression and anxiety: Continue home Elavil, Wellbutrin. 9. Gout: Not currently active. Continue home allopurinol. DVT prophylaxis: Heparin Dispo: patient is not comfortable going home with PICC line and IV antibiotics, so we will have to search for some sort of detention facility where he can complete his antibiotics; he will also need outpatient follow-up with Dr. Dianelys SNOWDEN, I&O, 24H, Tali Vital Signs/I&O Vital Signs Date Time Temp Pulse Resp B/P (MAP) Pulse Ox O2 Delivery O2 Flow Rate FiO2 12/23/16 18:20 97.1 60 16 157/77 (103) 98 Room Air 12/22/16 21:00 2.0 I&O- Last 24 Hours up to 6 AM 12/23/16 06:00 Intake Total 2460 ml Output Total 1850 ml Balance 610 ml Laboratory Data 24H LABS Laboratory Tests 2 12/22/16 21:02: Bedside Glucose (Misc Panel) 285H 12/23/16 05:43: White Blood Count 15.0H, Red Blood Count 4.50, Hemoglobin 12.6L, Hematocrit 39.5L, Mean Corpuscular Volume 87.8, Mean Corpuscular Hemoglobin 27.9, Mean Corpuscular Hemoglobin Concent 31.8L, Red Cell Distribution Width 16.7H, Platelet Count 685H, Neutrophils (%) (Auto) 75.4H, Lymphocytes (%) (Auto) 14.2L , Monocytes (%) (Auto) 4.0, Eosinophils (%) (Auto) 4.0H, Basophils (%) (Auto) 0.7, Neutrophils # (Auto) 11.4H, Lymphocytes # (Auto) 2.4, Monocytes # (Auto) 0.6, Eosinophils # (Auto) 0.6H, Basophils # (Auto) 0.1, Large Unclassified Cells % 1.7, Large Unclassified Cells # 0.3, Anion Gap 7L, Glomerular Filtration Rate > 60.0, Blood Urea Nitrogen 16, Creatinine 1.03, Sodium Level 139, Potassium Level 4.9, Chloride Level 104, Carbon Dioxide Level 28, Calcium Level 10.2H, C-Reactive Protein, Quantitative 1.75H 12/23/16 11:45: Bedside Glucose (Misc Panel) 174H 12/23/16 18:08: Bedside Glucose (Misc Panel) 92 CBC/BMP Laboratory Tests 12/23/16 05:43 Red Blood Count 4.50, Mean Corpuscular Volume 87.8, Mean Corpuscular Hemoglobin 27.9, Mean Corpuscular Hemoglobin Concent 31.8 L, Red Cell Distribution Width 16.7 H, Neutrophils (%) (Auto) 75.4 H, Lymphocytes (%) (Auto) 14.2 L, Monocytes (%) (Auto) 4.0, Eosinophils (%) (Auto) 4.0 H, Basophils (%) (Auto) 0.7, Neutrophils # (Auto) 11.4 H, Lymphocytes # (Auto) 2.4, Monocytes # (Auto) 0.6, Eosinophils # (Auto) 0.6 H, Basophils # (Auto) 0.1, Calcium Level 10.2 H Microbiology Microbiology 12/14/16 Blood Culture - Final, Complete NO GROWTH AFTER 5 DAYS 12/14/16 Blood Culture - Final, Complete NO GROWTH AFTER 5 DAYS 12/20/16 Gram Stain - Final, Complete 12/20/16 Wound Culture - Final, Complete 12/20/16 Anaerobic Culture - Final, Complete 12/17/16 Wound Culture - Final, Complete Staphylococcus Sp Coag Neg 12/17/16 Wound Culture - Final, Complete Staphylococcus Sp Coag Neg 12/17/16 Anaerobic Culture - Final, Complete Prevotella Melaninogenica Anaerobic Cocci 12/17/16 Anaerobic Culture - Final, Complete Anaerobic Cocci 12/14/16 Gram Stain - Final, Complete 12/14/16 Wound Culture - Final, Complete Staphylococcus Epidermidis DARLIN BURCIAGA Dec 23, 2016 19:17
[2016-12-23] MEDS: ATORVASTATIN 10 MG TAB PO SCH (21:06)
[2016-12-23] MEDS: AMITRIPTYLINE 25 MG TAB PO SCH (21:07)
[2016-12-23 22:00] VITALS: BP 124/58
[2016-12-24] MEDS: VANCOMYCIN HCL 1,000 MG, VIAL MATE ADAPTER 1 EACH in D5W 250 ML IV SCH ×3 (02:25→18:12)
[2016-12-24] MEDS: cloNIDine 0.1 MG TAB PO SCH ×3 (05:06→21:28)
[2016-12-24] MEDS: HEPARIN SOD (PORCINE) 5000 UNITS/ML VIAL SC SCH ×3 (05:16→21:38)
[2016-12-24] MEDS: SODIUM CHLORIDE 0.9% INJ 10 ML SYR IV SCH ×2 (05:17→18:10)
[2016-12-24] MEDS: oxyCODONE 5MG TAB PO PRN ×2 (05:31→13:38)
[2016-12-24 06:00] VITALS: BP 150/98
[2016-12-24 06:20] LABS: BASO # 0.1 K/mm3 (0.0-0.2); BASO % 0.7 % (0.0-1.0); EOS # 0.5 K/mm3 (0.0-0.50); EOS % 3.3 % (0.0-3.0); LARGE UNSTAINED CELL # 0.3 K/mm3 (0.0-0.4); LARGE UNSTAINED CELL % 1.8 % (0.0-4.0); LYMPH # 2.3 K/mm3 (1.5-4.5); LYMPH % 13.9 % (24.0-44.0); MEAN CORPUSCULAR HEMOGLOBIN 27.9 pg (27.0-33.0); MEAN CORPUSCULAR HGB CONC 31.7 g/dl (32.0-36.5); MEAN CORPUSCULAR VOLUME 87.8 fl (80.0-96.0); MONO # 0.5 K/mm3 (0.0-0.8); MONO % 3.3 % (0.0-5.0); NEUTROPHILS # 11.5 K/mm3 (1.8-7.7); PLATELET COUNT, AUTOMATED 704 k/mm3 (150-450); RED CELL DISTRIBUTION WIDTH 16.8 % (11.5-14.5); WHITE BLOOD COUNT 14.9 K/mm3 (4.0-10.0)
[2016-12-24 06:34] LABS: ANION GAP 8 MEQ/L (8-16); BLOOD UREA NITROGEN 18 MG/DL (7-18); CALCIUM LEVEL 10.6 MG/DL (8.5-10.1); CARBON DIOXIDE LEVEL 28 MEQ/L (21-32); CHLORIDE LEVEL 102 MEQ/L (98-107); CREATININE FOR GFR 1.09 MG/DL (0.70-1.30); GLOMERULAR FILTRATION RATE > 60.0 (>56); GLUCOSE, FASTING 131 MG/DL (70-105); MAGNESIUM LEVEL 1.3 MG/DL (1.8-2.4); SODIUM LEVEL 138 MEQ/L (136-145)
[2016-12-24] MEDS: PRIMIDONE 50 MG TAB PO SCH ×2 (08:17→21:36)
[2016-12-24] MEDS: buPROPion **XL** TABLET 150MG (WELLBUTRIN XL) PO SCH (08:17)
[2016-12-24] MEDS: ALLOPURINOL 100 MG TAB PO SCH (08:19)
[2016-12-24] MEDS: GLIMEPIRIDE 2 MG TAB PO SCH (08:19)
[2016-12-24] MEDS: SENOKOT S TAB PO SCH ×2 (08:19→21:38)
[2016-12-24] MEDS: ASPIRIN 81 MG ENTERIC TAB PO SCH (08:19)
[2016-12-24] MEDS: amLODIPine 5 MG TAB PO SCH ×2 (08:20→21:38)
[2016-12-24] MEDS: PANTOPRAZOLE 40MG TAB (PROTONIX) PO SCH (08:20)
[2016-12-24] MEDS: VITAMIN D 1,000 INTERNATIONAL UNITS TABLET PO SCH (08:20)
[2016-12-24] MEDS: oxyCODONE 15 MG CR TAB PO SCH ×2 (08:22→21:37)
[2016-12-24] MEDS: HumaLOG INSULIN (NovoLOG) PER UNIT SC SCH ×4 (08:24→21:00)
[2016-12-24] MEDS: SODIUM CHLORIDE 0.9% INJ 10 ML SYR IV PRN ×2 (10:32→19:30)
--- NOTE | 2016-12-24 11:55 | IPNPDOC ---
Date Seen The patient was seen on 12/24/16. Progress Note Hospitalist Progress Note Subjective: The patient states his foot is very painful but otherwise no complaints Objective: Physical Exam: Vitals: Vital Sign - Last 24 Hours 12/23/16 12/23/16 12/23/16 12/23/16 12:19 14:00 17:53 17:55 Temp 97.8 97.0 Pulse 73 60 62 Resp 20 18 18 18 B/P (MAP) 139/79 (99) 146/83 (104) Pulse Ox 95 97 97 O2 Delivery Room Air Room Air Room Air 12/23/16 12/23/16 12/23/16 12/23/16 18:00 18:05 18:10 18:20 Temp 97.1 Pulse 58 57 57 60 Resp 18 18 18 16 B/P (MAP) 146/93 (110) 148/85 (106) 148/89 (108) 157/77 (103) Pulse Ox 97 97 96 98 O2 Delivery Room Air Room Air Room Air Room Air 12/23/16 12/23/16 12/23/16 12/23/16 21:05 21:11 21:14 22:00 Temp 97.2 Pulse 76 78 Resp 18 18 B/P (MAP) 124/58 124/58 (80) Pulse Ox 94 O2 Delivery Room Air Room Air 12/23/16 12/24/16 12/24/16 12/24/16 23:38 05:06 05:31 06:00 Temp 98.9 Pulse 74 Resp 20 18 18 B/P (MAP) 150/98 150/98 (115) Pulse Ox 96 O2 Delivery Nasal Cannula O2 Flow Rate 2.0 12/24/16 12/24/16 12/24/16 12/24/16 06:01 08:18 08:20 08:22 Pulse 68 Resp 18 18 B/P (MAP) 152/74 General: Awake, alert, no acute distress HEENT: Normocephalic, atraumatic, extraocular movements intact CV: Regular rate and rhythm Lungs: Clear to auscultation bilaterally Abd: Soft, nontender, nondistended Extremities: Pedal pulses intact on the right with no edema; left foot and ankle is in RUPAL bandage Neuro: Alert and oriented 3, normal speech Psych: Normal Mood and affect Labs and Imaging: Laboratory Tests 12/24/16 05:27 Red Blood Count 4.46, Mean Corpuscular Volume 87.8, Mean Corpuscular Hemoglobin 27.9, Mean Corpuscular Hemoglobin Concent 31.7 L, Red Cell Distribution Width 16.8 H, Neutrophils (%) (Auto) 77.0 H, Lymphocytes (%) (Auto) 13.9 L, Monocytes (%) (Auto) 3.3, Eosinophils (%) (Auto) 3.3 H, Basophils (%) (Auto) 0.7, Neutrophils # (Auto) 11.5 H, Lymphocytes # (Auto) 2.3, Monocytes # (Auto) 0.5, Eosinophils # (Auto) 0.5, Basophils # (Auto) 0.1, Calcium Level 10.6 H Assessment and Plan: 56-year-old male with diabetes mellitus type 2, hypertension, hyperlipidemia, depression, anxiety, gout, peripheral neuropathy who presented to the emergency department after he stepped on a metal hayder that got embedded in his foot. He was admitted with cellulitis and has now also been found to have osteomyelitis of the left calcaneus. 1. Osteomyelitis and cellulitis: The patient was febrile upon admission, but fevers have now resolved. CRP is drastically improved, however, his white count has only improved from 16.8-14.9. Blood cultures are negative, but cultures of the foot are growing staph epi, and we'll continue the patient on IV vancomycin. He will need 6 weeks worth of antibiotics (through Jan 25). The patient has been seen by Dr. Ivory of infectious disease, but at this time, she is not available for the next 2 weeks. However, her most recent note stated that the patient should have 6 weeks of IV antibiotics tailored to his cultures. Dr. Izaguirre of podiatry is also following the patient, and we greatly appreciate his help. He completed implantation of antibiotic beads in the foot on 12/23/16. Pain control with long-acting OxyContin 60 mg by mouth twice a day, and OXYIR 10 mg for breakthrough 2. Diabetes mellitus type 2: A1c is 8.4. We are currently holding the patient's home metformin and invokana. Continue glimeperide, as well as sliding scale insulin while in-house. 3. Acute kidney injury: This was present on admission, but has now resolved. We are currently holding the patient's home RUPAL inhibitor. Continue to monitor closely. 4. Thrombocytosis: Patient's platelets have been elevated in the 600-700 range. I suspect that this is reactive from his infection. We will continue to monitor 5. Hyponatremia: This was present upon admission but has now resolved. We are currently holding his home HCTZ. Continue to monitor. 6. Hypertension: Currently holding home RUPAL inhibitor and HCTZ. Continue the Norvasc and clonidine which was started here. 7. Hyperlipidemia: Continue home statin. 8. Depression and anxiety: Continue home Elavil, Wellbutrin. 9. Gout: Not currently active. Continue home allopurinol. DVT prophylaxis: Heparin Dispo: patient is not comfortable going home with PICC line and IV antibiotics, so we will have to search for some sort of residential facility where he can complete his antibiotics once he is cleared by podiatry; he will also need outpatient follow-up with Dr. Ivory VS, I&O, 24H, Tali Vital Signs/I&O Vital Signs Date Time Temp Pulse Resp B/P (MAP) Pulse Ox O2 Delivery O2 Flow Rate FiO2 12/24/16 08:22 18 12/24/16 08:20 68 12/24/16 08:18 152/74 12/24/16 06:00 98.9 96 Nasal Cannula 2.0 I&O- Last 24 Hours up to 6 AM 12/24/16 06:00 Intake Total 1540 ml Output Total 1735 ml Balance -195 ml Laboratory Data 24H LABS Laboratory Tests 2 12/23/16 18:08: Bedside Glucose (Misc Panel) 92 12/23/16 20:57: Bedside Glucose (Misc Panel) 219H 12/24/16 05:27: White Blood Count 14.9H, Red Blood Count 4.46, Hemoglobin 12.4L, Hematocrit 39.1L, Mean Corpuscular Volume 87.8, Mean Corpuscular Hemoglobin 27.9, Mean Corpuscular Hemoglobin Concent 31.7L, Red Cell Distribution Width 16.8H, Platelet Count 704H, Neutrophils (%) (Auto) 77.0H, Lymphocytes (%) (Auto) 13.9L , Monocytes (%) (Auto) 3.3, Eosinophils (%) (Auto) 3.3H, Basophils (%) (Auto) 0.7, Neutrophils # (Auto) 11.5H, Lymphocytes # (Auto) 2.3, Monocytes # (Auto) 0.5, Eosinophils # (Auto) 0.5, Basophils # (Auto) 0.1, Large Unclassified Cells % 1.8, Large Unclassified Cells # 0.3, Anion Gap 8, Glomerular Filtration Rate > 60.0, Blood Urea Nitrogen 18, Creatinine 1.09, Sodium Level 138, Potassium Level 5.0, Chloride Level 102, Carbon Dioxide Level 28, Calcium Level 10.6H, Magnesium Level 1.3L CBC/BMP Laboratory Tests 12/24/16 05:27 Red Blood Count 4.46, Mean Corpuscular Volume 87.8, Mean Corpuscular Hemoglobin 27.9, Mean Corpuscular Hemoglobin Concent 31.7 L, Red Cell Distribution Width 16.8 H, Neutrophils (%) (Auto) 77.0 H, Lymphocytes (%) (Auto) 13.9 L, Monocytes (%) (Auto) 3.3, Eosinophils (%) (Auto) 3.3 H, Basophils (%) (Auto) 0.7, Neutrophils # (Auto) 11.5 H, Lymphocytes # (Auto) 2.3, Monocytes # (Auto) 0.5, Eosinophils # (Auto) 0.5, Basophils # (Auto) 0.1, Calcium Level 10.6 H Microbiology Microbiology 12/14/16 Blood Culture - Final, Complete NO GROWTH AFTER 5 DAYS 12/14/16 Blood Culture - Final, Complete NO GROWTH AFTER 5 DAYS 12/20/16 Gram Stain - Final, Complete 12/20/16 Wound Culture - Final, Complete 12/20/16 Anaerobic Culture - Final, Complete 12/17/16 Wound Culture - Final, Complete Staphylococcus Sp Coag Neg 12/17/16 Wound Culture - Final, Complete Staphylococcus Sp Coag Neg 12/17/16 Anaerobic Culture - Final, Complete Prevotella Melaninogenica Anaerobic Cocci 12/17/16 Anaerobic Culture - Final, Complete Anaerobic Cocci 12/14/16 Gram Stain - Final, Complete 12/14/16 Wound Culture - Final, Complete Staphylococcus Epidermidis DARLIN BURCIAGA Dec 24, 2016 11:55
[2016-12-24] MEDS: MAG SULF 1GM/100ML (MAG RUN) 1 GM in APPROPRIATE DILUENT 1 EA IV SCH ×2 (13:32→14:54)
[2016-12-24 14:00] VITALS: BP 132/71
--- NOTE | 2016-12-24 15:07 | RO ---
DATE OF PROCEDURE: 12/23/2016 PREPROCEDURE DIAGNOSES: Left foot diabetic ulceration, cellulitis and osteomyelitis of the calcaneus. POSTPROCEDURE DIAGNOSES: Left foot diabetic ulceration, cellulitis and osteomyelitis of the calcaneus. PROCEDURE: Left foot incision and drainage with implantation of antibiotic beads. SURGEON: Manish Izaguirre DPM [employer] KILN: ANESTHESIA: Monitored anesthesia care, preoperative injection of 20 mL of 1:1 mixture of 1% lidocaine plain and 0.5% Marcaine plain. ESTIMATED BLOOD LOSS: Minimal. MATERIALS: Osteoset reabsorbable beads mixed with vancomycin 500 mg. COMPLICATIONS: None. CONDITION: Stable. INDICATION: Jovanny Herrera is a 56-year-old male who has been being treated for a left foot infection. He was noted to have persistent elevation in white blood cell count with persistent purulent drainage from his wound. The decision was made to bring him for an additional incision and drainage with implantation of antibiotic beads. The patient's site and side were identified and marked in the preoperative holding area. Consent was reviewed and obtained. Risks, complications, alternatives to the procedure were explained to the patient in detail and all questions were answered. PROCEDURE: The patient was brought to the operating room and placed supine on the operating table in supine position. Monitored anesthesia care was delivered by the anesthesia team. Preoperative injection of 20 mL of 1:1 mixture of 1% Lidocaine plain and 0.5% Marcaine plain were injected in the left foot. Left foot was prepped and draped in a normal sterile fashion. Tourniquet was applied to the left calf and inflated to 250 mmHg. The wound was inspected. There was noted to be some persisting seropurulent drainage noted from the proximal portion of the wound. This was extended using hemostat and #15 blade. Necrotic tissue was identified in both the medial and plantar wounds, which was debrided free using a #15 blade rongeur. The rongeur was also used to debride some of the bone from the plantar calcaneus. Following this, 1500 mL of normal saline were irrigated using pulse lavage to both wound sites. Further debridement was performed. Bovie was used to maintain hemostasis. Once no further obvious necrotic tissue was identified, the remaining 1500 mL was pulse irrigated through the wounds. Following this, the right Osteoset reabsorbable beads, which has been mixed with 500 mg of vancomycin powder, were inserted to both wounds. Gauze dressings were applied. Tourniquet was deflated. The patient was brought to the postanesthesia care unit stable with neurovascular status intact. He will be readmitted to the floor. Ultimately, he will be discharged on peripherally inserted central catheter (PICC) line. At present, we will plan vancomycin. We will continue to follow.
[2016-12-24] MEDS: ATORVASTATIN 10 MG TAB PO SCH (21:37)
[2016-12-24] MEDS: AMITRIPTYLINE 25 MG TAB PO SCH (21:37)
[2016-12-24 22:00] VITALS: BP 150/88
[2016-12-25] MEDS: VANCOMYCIN HCL 1,000 MG, VIAL MATE ADAPTER 1 EACH in D5W 250 ML IV SCH ×3 (02:08→18:17)
[2016-12-25] MEDS: HEPARIN SOD (PORCINE) 5000 UNITS/ML VIAL SC SCH ×3 (05:53→21:33)
[2016-12-25] MEDS: SODIUM CHLORIDE 0.9% INJ 10 ML SYR IV SCH ×2 (05:54→18:17)
[2016-12-25 06:00] VITALS: BP 139/71
[2016-12-25] MEDS: cloNIDine 0.1 MG TAB PO SCH ×3 (06:00→21:05)
[2016-12-25 06:11] LABS: BASO # 0.1 K/mm3 (0.0-0.2); BASO % 0.7 % (0.0-1.0); EOS # 0.3 K/mm3 (0.0-0.50); EOS % 2.9 % (0.0-3.0); LARGE UNSTAINED CELL # 0.2 K/mm3 (0.0-0.4); LYMPH # 2.2 K/mm3 (1.5-4.5); LYMPH % 18.9 % (24.0-44.0); MEAN CORPUSCULAR HEMOGLOBIN 28.5 pg (27.0-33.0); MEAN CORPUSCULAR HGB CONC 32.9 g/dl (32.0-36.5); MEAN CORPUSCULAR VOLUME 86.7 fl (80.0-96.0); MONO # 0.4 K/mm3 (0.0-0.8); MONO % 3.3 % (0.0-5.0); NEUTROPHILS # 7.8 K/mm3 (1.8-7.7); NEUTROPHILS % 72.2 % (36.0-66.0); PLATELET COUNT, AUTOMATED 592 k/mm3 (150-450); RED CELL DISTRIBUTION WIDTH 16.6 % (11.5-14.5); WHITE BLOOD COUNT 10.8 K/mm3 (4.0-10.0)
[2016-12-25 06:27] LABS: ANION GAP 6 MEQ/L (8-16); BLOOD UREA NITROGEN 18 MG/DL (7-18); CALCIUM LEVEL 10.6 MG/DL (8.5-10.1); CARBON DIOXIDE LEVEL 29 MEQ/L (21-32); CHLORIDE LEVEL 103 MEQ/L (98-107); CREATININE FOR GFR 1.16 MG/DL (0.70-1.30); GLOMERULAR FILTRATION RATE > 60.0 (>56); GLUCOSE, FASTING 188 MG/DL (70-105); MAGNESIUM LEVEL 1.7 MG/DL (1.8-2.4); POTASSIUM SERUM 4.6 MEQ/L (3.5-5.1); SODIUM LEVEL 138 MEQ/L (136-145)
[2016-12-25] MEDS: MAG SULF 1GM/100ML (MAG RUN) 1 GM in APPROPRIATE DILUENT 1 EA IV SCH ×2 (06:56→08:29)
--- NOTE | 2016-12-25 08:07 | IPN ---
DATE: The patient seen and examined at bedside. States had some soreness in his foot last night, but this has resolved. Denies other overnight complaints. Negative for fevers or chills, nausea or vomiting. Labs are reviewed. White blood cell count remains elevated at 14.9. CRP has been trending down, yesterday it was 1.75. Lower Extremity Examination: Dressings remain intact. There was some drainage which had been reinforced by nursing. 56-year-old male with ulceration and calcaneal osteomyelitis status post incision and drainage with implantation of antibiotic beads. Plan: At this point, the patient will be able to be discharged likely as early as tomorrow to step down care unit. He will continue his vancomycin via PICC line. He will continue dressing care. The patient is unable to perform these functions himself. He is concerned about infections in his own home. He will require to continue to followup with me in the outpatient setting. He will be seen within one week of discharge at my office. Further care will depend on the nature and progression of infection and wound. At this time, no further surgery is planned this admission.
[2016-12-25] MEDS: HumaLOG INSULIN (NovoLOG) PER UNIT SC SCH ×4 (08:28→21:32)
[2016-12-25] MEDS: VITAMIN D 1,000 INTERNATIONAL UNITS TABLET PO SCH (08:29)
[2016-12-25] MEDS: GLIMEPIRIDE 2 MG TAB PO SCH (08:29)
[2016-12-25] MEDS: PANTOPRAZOLE 40MG TAB (PROTONIX) PO SCH (08:30)
[2016-12-25] MEDS: ASPIRIN 81 MG ENTERIC TAB PO SCH (08:30)
[2016-12-25] MEDS: amLODIPine 5 MG TAB PO SCH ×2 (08:30→20:49)
[2016-12-25] MEDS: PRIMIDONE 50 MG TAB PO SCH ×2 (08:30→20:45)
[2016-12-25] MEDS: SENOKOT S TAB PO SCH ×2 (08:31→20:46)
[2016-12-25] MEDS: ALLOPURINOL 100 MG TAB PO SCH (08:31)
[2016-12-25] MEDS: oxyCODONE 15 MG CR TAB PO SCH ×2 (08:32→20:52)
[2016-12-25] MEDS: buPROPion **XL** TABLET 150MG (WELLBUTRIN XL) PO SCH (08:35)
[2016-12-25] MEDS: oxyCODONE 5MG TAB PO PRN (12:38)
[2016-12-25 14:00] VITALS: BP 120/57
--- NOTE | 2016-12-25 16:28 | IPNPDOC ---
Date Seen The patient was seen on 12/25/16. Progress Note Hospitalist Progress Note Subjective: The patient is concerned that he has a swollen area on his inner left calf and wonders if it is blood clot Objective: Physical Exam: Vitals: Vital Sign - Last 24 Hours 12/24/16 12/24/16 12/24/16 12/24/16 21:00 21:28 21:37 21:38 Pulse 71 Resp 18 B/P (MAP) 150/76 150/76 Pulse Ox 96 O2 Delivery Room Air Room Air 12/24/16 12/25/16 12/25/16 12/25/16 22:00 06:00 06:00 08:30 Temp 96.3 97.4 Pulse 70 65 65 Resp 20 18 B/P (MAP) 150/88 (108) 139/71 (93) 139/71 139/71 Pulse Ox 99 94 O2 Delivery Nasal Cannula O2 Flow Rate 2.0 12/25/16 12/25/16 12/25/16 12/25/16 08:32 08:45 12:38 13:08 Resp 16 18 18 O2 Delivery Room Air Nasal Cannula O2 Flow Rate 3.0 12/25/16 14:00 Temp 97.9 Pulse 88 Resp 18 B/P (MAP) 120/57 (78) Pulse Ox 95 O2 Delivery Nasal Cannula O2 Flow Rate 2.0 General: Awake, alert, no acute distress HEENT: Normocephalic, atraumatic, extraocular movements intact CV: Regular rate and rhythm Lungs: Clear to auscultation bilaterally Abd: Soft, nontender, nondistended Extremities: Pedal pulses intact on the right with no edema; left foot and ankle is in RUPAL bandage; left calf has what appears to be a varicose vein that is only evident when the patient is upright Neuro: Alert and oriented 3, normal speech Psych: Normal Mood and affect Labs and Imaging: Laboratory Tests 12/25/16 05:50 Red Blood Count 4.42, Mean Corpuscular Volume 86.7, Mean Corpuscular Hemoglobin 28.5, Mean Corpuscular Hemoglobin Concent 32.9, Red Cell Distribution Width 16.6 H, Neutrophils (%) (Auto) 72.2 H, Lymphocytes (%) (Auto) 18.9 L, Monocytes (%) (Auto) 3.3, Eosinophils (%) (Auto) 2.9, Basophils (%) (Auto) 0.7, Neutrophils # (Auto) 7.8 H, Lymphocytes # (Auto) 2.2, Monocytes # (Auto) 0.4, Eosinophils # (Auto) 0.3, Basophils # (Auto) 0.1, Calcium Level 10.6 H Assessment and Plan: 56-year-old male with diabetes mellitus type 2, hypertension, hyperlipidemia, depression, anxiety, gout, peripheral neuropathy who presented to the emergency department after he stepped on a metal hayder that got embedded in his foot. He was admitted with cellulitis and has now also been found to have osteomyelitis of the left calcaneus. 1. Osteomyelitis and cellulitis: The patient was febrile upon admission, but fevers have now resolved. CRP is drastically improved, and white count has improved from 16.8-10.8. Blood cultures are negative, but cultures of the foot are growing staph epi, and we'll continue the patient on IV vancomycin. He will need 6 weeks worth of antibiotics (through Jan 25). The patient has been seen by Dr. Ivory of infectious disease, but at this time, she is not available for the next 2 weeks. However, her most recent note stated that the patient should have 6 weeks of IV antibiotics tailored to his cultures. Dr. Izaguirre of podiatry is also following the patient, and we greatly appreciate his help. He completed implantation of antibiotic beads in the foot on 12/23/16. Pain control with long- acting OxyContin 60 mg by mouth twice a day, and OXYIR 10 mg for breakthrough 2. Diabetes mellitus type 2: A1c is 8.4. We are currently holding the patient's home metformin and invokana. Continue glimeperide, as well as sliding scale insulin while in-house. 3. Acute kidney injury: This was present on admission, but has now resolved. We are currently holding the patient's home RUPAL inhibitor. Continue to monitor closely. 4. Thrombocytosis: Patient's platelets have been elevated in the 600-700 range, but today are improved to the 500s. I suspect that this is reactive from his infection. We will continue to monitor 5. Hyponatremia: This was present upon admission but has now resolved. We are currently holding his home HCTZ. Continue to monitor. 6. Hypertension: Currently holding home RUPAL inhibitor and HCTZ. Continue the Norvasc and clonidine which was started here. 7. Hyperlipidemia: Continue home statin. 8. Depression and anxiety: Continue home Elavil, Wellbutrin. 9. Gout: Not currently active. Continue home allopurinol. 10. Bulge on left calf: Upon my exam, this appears to be a varicose vein. However, the patient is very worried that this may represent a blood clot, so will perform doppler ultrasound to further investigate. DVT prophylaxis: Heparin Dispo: patient is not comfortable going home with PICC line and IV antibiotics, so we will have to search for some sort of assisted facility where he can complete his antibiotics; he will also need outpatient follow-up with Dr. Ivory VS, I&O, 24H, [place] [facility] Vital Signs/I&O Vital Signs Date Time Temp Pulse Resp B/P (MAP) Pulse Ox O2 Delivery O2 Flow Rate FiO2 12/25/16 14:00 97.9 88 18 120/57 (78) 95 Nasal Cannula 2.0 I&O- Last 24 Hours up to 6 AM 12/25/16 06:00 Intake Total 3400 ml Output Total 2375 ml Balance 1025 ml Laboratory Data 24H LABS Laboratory Tests 2 12/24/16 20:24: Bedside Glucose (Misc Panel) 203H 12/25/16 05:50: White Blood Count 10.8H, Red Blood Count 4.42, Hemoglobin 12.6L, Hematocrit 38.3L, Mean Corpuscular Volume 86.7, Mean Corpuscular Hemoglobin 28.5, Mean Corpuscular Hemoglobin Concent 32.9, Red Cell Distribution Width 16.6H, Platelet Count 592H, Neutrophils (%) (Auto) 72.2H, Lymphocytes (%) (Auto) 18.9L , Monocytes (%) (Auto) 3.3, Eosinophils (%) (Auto) 2.9, Basophils (%) (Auto) 0.7 , Neutrophils # (Auto) 7.8H, Lymphocytes # (Auto) 2.2, Monocytes # (Auto) 0.4, Eosinophils # (Auto) 0.3, Basophils # (Auto) 0.1, Large Unclassified Cells % 2.0 , Large Unclassified Cells # 0.2, Anion Gap 6L, Glomerular Filtration Rate > 60.0, Blood Urea Nitrogen 18, Creatinine 1.16, Sodium Level 138, Potassium Level 4.6, Chloride Level 103, Carbon Dioxide Level 29, Calcium Level 10.6H, Magnesium Level 1.7L, C-Reactive Protein, Quantitative 2.91H 12/25/16 11:42: Bedside Glucose (Misc Panel) 144H CBC/BMP Laboratory Tests 12/25/16 05:50 Red Blood Count 4.42, Mean Corpuscular Volume 86.7, Mean Corpuscular Hemoglobin 28.5, Mean Corpuscular Hemoglobin Concent 32.9, Red Cell Distribution Width 16.6 H, Neutrophils (%) (Auto) 72.2 H, Lymphocytes (%) (Auto) 18.9 L, Monocytes (%) (Auto) 3.3, Eosinophils (%) (Auto) 2.9, Basophils (%) (Auto) 0.7, Neutrophils # (Auto) 7.8 H, Lymphocytes # (Auto) 2.2, Monocytes # (Auto) 0.4, Eosinophils # (Auto) 0.3, Basophils # (Auto) 0.1, Calcium Level 10.6 H Microbiology Microbiology 12/20/16 Gram Stain - Final, Complete 12/20/16 Wound Culture - Final, Complete 12/20/16 Anaerobic Culture - Final, Complete 12/17/16 Wound Culture - Final, Complete Staphylococcus Sp Coag Neg 12/17/16 Wound Culture - Final, Complete Staphylococcus Sp Coag Neg 12/17/16 Anaerobic Culture - Final, Complete Prevotella Melaninogenica Anaerobic Cocci 12/17/16 Anaerobic Culture - Final, Complete Anaerobic Cocci DARLIN BURCIAGA Dec 25, 2016 16:28
--- NOTE | 2016-12-25 17:40 | REP ---
HISTORY: Pain and swelling. TECHNIQUE: Multiple ultrasonographic images of the deep venous structures of the left thigh were obtained from the common femoral vein to the popliteal vein along with Doppler interrogation and color flow Doppler images. FINDINGS: There is no abnormal echogenic material seen within any of the visualized deep venous structures that would suggest acute thrombosis. Coaptation is unremarkable throughout. Doppler interrogation shows an expected response to respiratory variability and augmentation. The color flow images show what appears to be a normal vascular pattern throughout. IMPRESSION: There is no ultrasonographic evidence of deep venous thrombosis involving any of the visualized deep venous structures of the left thigh, as described above. Signed by Aramis Sahni DO 12/25/2016 05:46 P
[2016-12-25] MEDS: ATORVASTATIN 10 MG TAB PO SCH (20:45)
[2016-12-25] MEDS: AMITRIPTYLINE 25 MG TAB PO SCH (20:46)
[2016-12-25 22:00] VITALS: BP 138/71
[2016-12-26] MEDS: VANCOMYCIN HCL 1,000 MG, VIAL MATE ADAPTER 1 EACH in D5W 250 ML IV SCH ×3 (02:05→18:21)
[2016-12-26] MEDS: SODIUM CHLORIDE 0.9% INJ 10 ML SYR IV SCH ×2 (03:17→18:20)
[2016-12-26] MEDS: cloNIDine 0.1 MG TAB PO SCH ×3 (05:41→21:11)
[2016-12-26] MEDS: HEPARIN SOD (PORCINE) 5000 UNITS/ML VIAL SC SCH ×3 (05:43→21:06)
[2016-12-26] MEDS: SODIUM CHLORIDE 0.9% INJ 10 ML SYR IV PRN (05:45)
[2016-12-26 06:14] LABS: BASO # 0.1 K/mm3 (0.0-0.2); BASO % 0.9 % (0.0-1.0); EOS # 0.3 K/mm3 (0.0-0.50); EOS % 3.4 % (0.0-3.0); LARGE UNSTAINED CELL # 0.3 K/mm3 (0.0-0.4); LARGE UNSTAINED CELL % 2.6 % (0.0-4.0); LYMPH # 2.4 K/mm3 (1.5-4.5); LYMPH % 22.3 % (24.0-44.0); MEAN CORPUSCULAR HEMOGLOBIN 27.8 pg (27.0-33.0); MEAN CORPUSCULAR HGB CONC 32.1 g/dl (32.0-36.5); MEAN CORPUSCULAR VOLUME 86.6 fl (80.0-96.0); MONO # 0.4 K/mm3 (0.0-0.8); MONO % 3.6 % (0.0-5.0); NEUTROPHILS # 6.4 K/mm3 (1.8-7.7); NEUTROPHILS % 67.1 % (36.0-66.0); PLATELET COUNT, AUTOMATED 620 k/mm3 (150-450); RED CELL DISTRIBUTION WIDTH 16.6 % (11.5-14.5); WHITE BLOOD COUNT 9.5 K/mm3 (4.0-10.0)
[2016-12-26 06:31] LABS: ANION GAP 8 MEQ/L (8-16); BLOOD UREA NITROGEN 16 MG/DL (7-18); CALCIUM LEVEL 10.4 MG/DL (8.5-10.1); CARBON DIOXIDE LEVEL 27 MEQ/L (21-32); CHLORIDE LEVEL 103 MEQ/L (98-107); CREATININE FOR GFR 1.07 MG/DL (0.70-1.30); GLOMERULAR FILTRATION RATE > 60.0 (>56); GLUCOSE, FASTING 150 MG/DL (70-105); MAGNESIUM LEVEL 1.6 MG/DL (1.8-2.4); POTASSIUM SERUM 4.7 MEQ/L (3.5-5.1); SODIUM LEVEL 138 MEQ/L (136-145)
--- NOTE | 2016-12-26 08:12 | IPN ---
DATE: 12/25/2016 SUBJECTIVE: The patient is seen and examined at bedside. Denies overnight complaints. Denies nausea, vomiting, fever or chills. The patient has been afebrile over the last 24 hours. Labs are reviewed. White blood cell count is improved to 10.8, down from 14.9. C-reactive protein (CRP) is somewhat elevated compared to last reading. It is 2.91, up from 1.75 previously. LOWER EXTREMITY EXAMINATION: Erythema and edema are markedly improved to the left foot. There is no purulence identified in wound. Antibiotic beads are present. ASSESSMENT: A 56-year-old diabetic male with cellulitis, osteomyelitis of calcaneus, status post incision and drainage with implantation of antibiotic beads. PLAN: Continue vancomycin via percutaneous endoscopic gastrostomy (PEG). Will require six weeks' duration therapy. Start saline wet-to-dry dressings, change daily. Okay to be discharged to next level of care from podiatry standpoint. Will followup with me some time next week.
[2016-12-26] MEDS: buPROPion **XL** TABLET 150MG (WELLBUTRIN XL) PO SCH (08:40)
[2016-12-26] MEDS: HumaLOG INSULIN (NovoLOG) PER UNIT SC SCH ×4 (08:40→21:00)
[2016-12-26] MEDS: PRIMIDONE 50 MG TAB PO SCH ×2 (08:40→21:06)
[2016-12-26] MEDS: PANTOPRAZOLE 40MG TAB (PROTONIX) PO SCH (08:41)
[2016-12-26] MEDS: SENOKOT S TAB PO SCH ×2 (08:41→21:07)
[2016-12-26] MEDS: ASPIRIN 81 MG ENTERIC TAB PO SCH (08:41)
[2016-12-26] MEDS: ALLOPURINOL 100 MG TAB PO SCH (08:41)
[2016-12-26] MEDS: GLIMEPIRIDE 2 MG TAB PO SCH (08:42)
[2016-12-26] MEDS: oxyCODONE 15 MG CR TAB PO SCH ×2 (08:42→21:08)
[2016-12-26] MEDS: VITAMIN D 1,000 INTERNATIONAL UNITS TABLET PO SCH (08:42)
[2016-12-26] MEDS: MAG SULF 1GM/100ML (MAG RUN) 1 GM in APPROPRIATE DILUENT 1 EA IV SCH ×2 (08:43→09:40)
[2016-12-26] MEDS: amLODIPine 5 MG TAB PO SCH ×2 (08:43→21:07)
[2016-12-26] MEDS: oxyCODONE 5MG TAB PO PRN (12:55)
[2016-12-26 14:00] VITALS: BP 139/69
--- NOTE | 2016-12-26 15:38 | IPNPDOC ---
Date Seen The patient was seen on 12/26/16. Progress Note Hospitalist Progress Note Subjective: The patient expresses that he really hopes he is able to do rehab here Objective: Physical Exam: Vitals: Vital Sign - Last 24 Hours 12/25/16 12/25/16 12/25/16 12/25/16 20:49 20:52 21:05 22:00 Temp 97.5 Pulse 76 76 78 Resp 18 16 B/P (MAP) 134/68 136/68 136/68 138/71 (93) Pulse Ox 100 O2 Delivery Room Air Nasal Cannula O2 Flow Rate 2.0 12/25/16 12/26/16 12/26/16 12/26/16 22:00 05:41 08:42 08:43 Pulse 78 Resp 20 B/P (MAP) 144/77 144/77 O2 Delivery Room Air 12/26/16 12/26/16 12/26/16 12/26/16 11:04 12:50 12:55 13:57 Resp 18 18 B/P (MAP) 126/68 O2 Delivery Room Air 12/26/16 14:00 Temp 97.5 Pulse 83 Resp 16 B/P (MAP) 139/69 (92) Pulse Ox 95 O2 Delivery Nasal Cannula O2 Flow Rate 2.0 General: Awake, alert, no acute distress HEENT: Normocephalic, atraumatic, extraocular movements intact CV: Regular rate and rhythm Lungs: Clear to auscultation bilaterally Abd: Soft, nontender, nondistended Extremities: Pedal pulses intact on the right with no edema; left foot and ankle is in RUPAL bandage Neuro: Alert and oriented 3, normal speech Psych: Normal Mood and affect Labs and Imaging: Laboratory Tests 12/26/16 05:46 Red Blood Count 4.52, Mean Corpuscular Volume 86.6, Mean Corpuscular Hemoglobin 27.8, Mean Corpuscular Hemoglobin Concent 32.1, Red Cell Distribution Width 16.6 H, Neutrophils (%) (Auto) 67.1 H, Lymphocytes (%) (Auto) 22.3 L, Monocytes (%) (Auto) 3.6, Eosinophils (%) (Auto) 3.4 H, Basophils (%) (Auto) 0.9, Neutrophils # (Auto) 6.4, Lymphocytes # (Auto) 2.4, Monocytes # (Auto) 0.4, Eosinophils # (Auto) 0.3, Basophils # (Auto) 0.1, Calcium Level 10.4 H Assessment and Plan: 56-year-old male with diabetes mellitus type 2, hypertension, hyperlipidemia, depression, anxiety, gout, peripheral neuropathy who presented to the emergency department after he stepped on a metal hayder that got embedded in his foot. He was admitted with cellulitis and has now also been found to have osteomyelitis of the left calcaneus. 1. Osteomyelitis and cellulitis: The patient was febrile upon admission, but fevers have now resolved. CRP is drastically improved, and white count has improved from 16.8-WNL. Blood cultures are negative, but cultures of the foot are growing staph epi, and we'll continue the patient on IV vancomycin. He will need 6 weeks worth of antibiotics (through Jan 25). The patient has been seen by Dr. Ivory of infectious disease, but at this time, she is not available for the next 2 weeks. However, her most recent note stated that the patient should have 6 weeks of IV antibiotics tailored to his cultures. Dr. Izaguirre of podiatry is also following the patient, and we greatly appreciate his help. He completed implantation of antibiotic beads in the foot on 12/23/16. Pain control with long- acting OxyContin 60 mg by mouth twice a day, and OXYIR 10 mg for breakthrough 2. Diabetes mellitus type 2: A1c is 8.4. We are currently holding the patient's home metformin and invokana. Continue glimeperide, as well as sliding scale insulin while in-house. 3. Acute kidney injury: This was present on admission, but has now resolved. We are currently holding the patient's home RUPAL inhibitor. Continue to monitor closely. 4. Thrombocytosis: Patient's platelets have been elevated in the 600-700 range, but today are improving. I suspect that this is reactive from his infection. We will continue to monitor 5. Hyponatremia: This was present upon admission but has now resolved. We are currently holding his home HCTZ. Continue to monitor. 6. Hypertension: Currently holding home RUPAL inhibitor and HCTZ. Continue the Norvasc and clonidine which was started here. 7. Hyperlipidemia: Continue home statin. 8. Depression and anxiety: Continue home Elavil, Wellbutrin. 9. Gout: Not currently active. Continue home allopurinol. 10. Bulge on left calf: Upon my exam, this appears to be a varicose vein. However, the patient was very worried that this may represent a blood clot, so performed doppler ultrasound, which was negative for DVT. DVT prophylaxis: Heparin Dispo: patient is not comfortable going home with PICC line and IV antibiotics, so we will have to search for some sort of shelter facility where he can complete his antibiotics; he will also need outpatient follow-up with Dr. Ivory VS, I&O, 24H, [facility] Vital Signs/I&O Vital Signs Date Time Temp Pulse Resp B/P (MAP) Pulse Ox O2 Delivery O2 Flow Rate FiO2 12/26/16 14:00 97.5 83 16 139/69 (92) 95 Nasal Cannula 2.0 I&O- Last 24 Hours up to 6 AM 12/26/16 06:00 Intake Total 1680 ml Output Total 2050 ml Balance -370 ml Laboratory Data 24H LABS Laboratory Tests 2 12/25/16 16:27: Bedside Glucose (Misc Panel) 107H 12/25/16 20:50: Bedside Glucose (Misc Panel) 262H 12/26/16 05:46: White Blood Count 9.5, Red Blood Count 4.52, Hemoglobin 12.6L, Hematocrit 39.2L , Mean Corpuscular Volume 86.6, Mean Corpuscular Hemoglobin 27.8, Mean Corpuscular Hemoglobin Concent 32.1, Red Cell Distribution Width 16.6H, Platelet Count 620H, Neutrophils (%) (Auto) 67.1H, Lymphocytes (%) (Auto) 22.3L , Monocytes (%) (Auto) 3.6, Eosinophils (%) (Auto) 3.4H, Basophils (%) (Auto) 0.9, Neutrophils # (Auto) 6.4, Lymphocytes # (Auto) 2.4, Monocytes # (Auto) 0.4 , Eosinophils # (Auto) 0.3, Basophils # (Auto) 0.1, Large Unclassified Cells % 2.6, Large Unclassified Cells # 0.3, Anion Gap 8, Glomerular Filtration Rate > 60.0, Blood Urea Nitrogen 16, Creatinine 1.07, Sodium Level 138, Potassium Level 4.7, Chloride Level 103, Carbon Dioxide Level 27, Calcium Level 10.4H, Magnesium Level 1.6L, C-Reactive Protein, Quantitative 1.87H CBC/BMP Laboratory Tests 12/26/16 05:46 Red Blood Count 4.52, Mean Corpuscular Volume 86.6, Mean Corpuscular Hemoglobin 27.8, Mean Corpuscular Hemoglobin Concent 32.1, Red Cell Distribution Width 16.6 H, Neutrophils (%) (Auto) 67.1 H, Lymphocytes (%) (Auto) 22.3 L, Monocytes (%) (Auto) 3.6, Eosinophils (%) (Auto) 3.4 H, Basophils (%) (Auto) 0.9, Neutrophils # (Auto) 6.4, Lymphocytes # (Auto) 2.4, Monocytes # (Auto) 0.4, Eosinophils # (Auto) 0.3, Basophils # (Auto) 0.1, Calcium Level 10.4 H Microbiology Microbiology 12/20/16 Gram Stain - Final, Complete 12/20/16 Wound Culture - Final, Complete 12/20/16 Anaerobic Culture - Final, Complete 12/17/16 Wound Culture - Final, Complete Staphylococcus Sp Coag Neg 12/17/16 Wound Culture - Final, Complete Staphylococcus Sp Coag Neg 12/17/16 Anaerobic Culture - Final, Complete Prevotella Melaninogenica Anaerobic Cocci 12/17/16 Anaerobic Culture - Final, Complete Anaerobic Cocci DARLIN BURCIAGA Dec 26, 2016 15:38
[2016-12-26 19:50] VITALS: BP 133/72
[2016-12-26] MEDS: AMITRIPTYLINE 25 MG TAB PO SCH (21:06)
[2016-12-26] MEDS: ATORVASTATIN 10 MG TAB PO SCH (21:07)
[2016-12-27] MEDS: VANCOMYCIN HCL 1,000 MG, VIAL MATE ADAPTER 1 EACH in D5W 250 ML IV SCH ×3 (02:02→17:42)
[2016-12-27] MEDS: oxyCODONE 5MG TAB PO PRN ×2 (02:06→14:59)
[2016-12-27] MEDS: HEPARIN SOD (PORCINE) 5000 UNITS/ML VIAL SC SCH ×3 (05:49→21:38)
[2016-12-27] MEDS: SODIUM CHLORIDE 0.9% INJ 10 ML SYR IV SCH ×2 (05:49→17:43)
[2016-12-27 06:00] VITALS: BP 137/83
[2016-12-27] MEDS: cloNIDine 0.1 MG TAB PO SCH ×3 (06:00→21:40)
[2016-12-27 06:04] LABS: BASO # 0.1 K/mm3 (0.0-0.2); BASO % 1.1 % (0.0-1.0); EOS # 0.3 K/mm3 (0.0-0.50); EOS % 3.5 % (0.0-3.0); LARGE UNSTAINED CELL # 0.3 K/mm3 (0.0-0.4); LARGE UNSTAINED CELL % 2.9 % (0.0-4.0); LYMPH # 2.4 K/mm3 (1.5-4.5); LYMPH % 21.7 % (24.0-44.0); MEAN CORPUSCULAR HGB CONC 32.1 g/dl (32.0-36.5); MEAN CORPUSCULAR VOLUME 87.2 fl (80.0-96.0); MONO # 0.4 K/mm3 (0.0-0.8); MONO % 4.1 % (0.0-5.0); NEUTROPHILS # 6.5 K/mm3 (1.8-7.7); NEUTROPHILS % 66.7 % (36.0-66.0); PLATELET COUNT, AUTOMATED 599 k/mm3 (150-450); RED CELL DISTRIBUTION WIDTH 16.5 % (11.5-14.5); WHITE BLOOD COUNT 9.7 K/mm3 (4.0-10.0)
[2016-12-27 06:34] LABS: ANION GAP 9 MEQ/L (8-16); BLOOD UREA NITROGEN 16 MG/DL (7-18); CALCIUM LEVEL 10.4 MG/DL (8.5-10.1); CARBON DIOXIDE LEVEL 27 MEQ/L (21-32); CHLORIDE LEVEL 103 MEQ/L (98-107); CREATININE FOR GFR 1.07 MG/DL (0.70-1.30); GLOMERULAR FILTRATION RATE > 60.0 (>56); GLUCOSE, FASTING 180 MG/DL (70-105); MAGNESIUM LEVEL 1.6 MG/DL (1.8-2.4); POTASSIUM SERUM 4.5 MEQ/L (3.5-5.1); SODIUM LEVEL 139 MEQ/L (136-145)
[2016-12-27] MEDS: HumaLOG INSULIN (NovoLOG) PER UNIT SC SCH ×4 (09:29→20:14)
[2016-12-27] MEDS: SODIUM CHLORIDE 0.9% INJ 10 ML SYR IV PRN (09:30)
[2016-12-27] MEDS: ASPIRIN 81 MG ENTERIC TAB PO SCH (09:31)
[2016-12-27] MEDS: VITAMIN D 1,000 INTERNATIONAL UNITS TABLET PO SCH (09:31)
[2016-12-27] MEDS: PRIMIDONE 50 MG TAB PO SCH ×2 (09:31→21:38)
[2016-12-27] MEDS: buPROPion **XL** TABLET 150MG (WELLBUTRIN XL) PO SCH (09:31)
[2016-12-27] MEDS: oxyCODONE 15 MG CR TAB PO SCH ×2 (09:31→21:39)
[2016-12-27] MEDS: SENOKOT S TAB PO SCH ×2 (09:32→21:39)
[2016-12-27] MEDS: ALLOPURINOL 100 MG TAB PO SCH (09:32)
[2016-12-27] MEDS: amLODIPine 5 MG TAB PO SCH ×2 (09:32→21:40)
[2016-12-27] MEDS: MAGNESIUM OXIDE 400 MG TAB (MAG-OX) PO SCH ×3 (09:32→21:39)
[2016-12-27] MEDS: GLIMEPIRIDE 2 MG TAB PO SCH (09:32)
[2016-12-27] MEDS: PANTOPRAZOLE 40MG TAB (PROTONIX) PO SCH (09:32)
--- NOTE | 2016-12-27 10:54 | IPNPDOC ---
Date Seen The patient was seen on 12/27/16. Progress Note Hospitalist Progress Note Subjective: The patient is sleeping comfortably but easily awoken; tells me he is doing fine and promptly goes back to sleep Objective: Physical Exam: Vitals: Vital Sign - Last 24 Hours 12/26/16 12/26/16 12/26/16 12/26/16 11:04 12:50 12:55 14:00 Temp 97.5 Pulse 83 Resp 18 16 B/P (MAP) 126/68 139/69 (92) Pulse Ox 95 O2 Delivery Room Air Nasal Cannula O2 Flow Rate 2.0 12/26/16 12/26/16 12/26/16 12/26/16 19:50 21:00 21:07 21:08 Temp 97.4 Pulse 79 79 Resp 16 16 B/P (MAP) 133/72 (92) 133/72 Pulse Ox 98 O2 Delivery Nasal Cannula Room Air O2 Flow Rate 2.0 12/27/16 12/27/16 12/27/16 12/27/16 02:06 02:36 06:00 06:00 Temp 96.9 Pulse 64 Resp 16 14 16 B/P (MAP) 137/83 137/83 (101) Pulse Ox 97 O2 Delivery Nasal Cannula O2 Flow Rate 2.0 12/27/16 12/27/16 09:31 09:32 Pulse 64 Resp 20 B/P (MAP) 137/83 General: sleeping comfortably but easily awoken, no acute distress HEENT: Normocephalic, atraumatic, extraocular movements intact CV: Regular rate and rhythm Lungs: Clear to auscultation bilaterally Abd: Soft, nontender, nondistended Extremities: Pedal pulses intact on the right with no edema; left foot and ankle is in RUPAL bandage Neuro: Alert and oriented 3, normal speech Psych: Normal Mood and affect Labs and Imaging: Laboratory Tests 12/27/16 05:48 Red Blood Count 4.40, Mean Corpuscular Volume 87.2, Mean Corpuscular Hemoglobin 28.0, Mean Corpuscular Hemoglobin Concent 32.1, Red Cell Distribution Width 16.5 H, Neutrophils (%) (Auto) 66.7 H, Lymphocytes (%) (Auto) 21.7 L, Monocytes (%) (Auto) 4.1, Eosinophils (%) (Auto) 3.5 H, Basophils (%) (Auto) 1.1 H, Neutrophils # (Auto) 6.5, Lymphocytes # (Auto) 2.4, Monocytes # (Auto) 0.4, Eosinophils # (Auto) 0.3, Basophils # (Auto) 0.1, Calcium Level 10.4 H Assessment and Plan: 56-year-old male with diabetes mellitus type 2, hypertension, hyperlipidemia, depression, anxiety, gout, peripheral neuropathy who presented to the emergency department after he stepped on a metal hayder that got embedded in his foot. He was admitted with cellulitis and has now also been found to have osteomyelitis of the left calcaneus. 1. Osteomyelitis and cellulitis: The patient was febrile upon admission, but fevers have now resolved. CRP is drastically improved, and white count has improved from 16.8-WNL. Blood cultures are negative, but cultures of the foot are growing staph epi, and we'll continue the patient on IV vancomycin. He will need 6 weeks worth of antibiotics (through Jan 25). The patient has been seen by Dr. Ivory of infectious disease, but at this time, she is not available for another week. However, her most recent note stated that the patient should have 6 weeks of IV antibiotics tailored to his cultures. Dr. Izaguirre of podiatry is also following the patient, and we greatly appreciate his help. He completed implantation of antibiotic beads in the foot on 12/23/16. Pain control with long- acting OxyContin 60 mg by mouth twice a day, and OXYIR 10 mg for breakthrough 2. Diabetes mellitus type 2: A1c is 8.4. We are currently holding the patient's home metformin and invokana. Continue glimeperide, as well as sliding scale insulin while in-house. 3. Acute kidney injury: This was present on admission, but has now resolved. We are currently holding the patient's home RUPAL inhibitor. Continue to monitor closely. 4. Thrombocytosis: Patient's platelets have been elevated in the 600-700 range, but today are improving. I suspect that this is reactive from his infection. We will continue to monitor 5. Hyponatremia: This was present upon admission but has now resolved. We are currently holding his home HCTZ. Continue to monitor. 6. Hypertension: Currently holding home RUPAL inhibitor and HCTZ. Continue the Norvasc and clonidine which was started here. 7. Hyperlipidemia: Continue home statin. 8. Depression and anxiety: Continue home Elavil, Wellbutrin. 9. Gout: Not currently active. Continue home allopurinol. 10. Bulge on left calf: Upon my exam, this appears to be a varicose vein. However, the patient was very worried that this may represent a blood clot, so performed doppler ultrasound, which was negative for DVT. 11. Hypomagnesemia: Has required multiple IV replacement; will start on scheduled PO mag-ox. DVT prophylaxis: Heparin Dispo: patient is not comfortable going home with PICC line and IV antibiotics, so we will have to search for some sort of jail facility where he can complete his antibiotics; he will also need outpatient follow-up with Dr. Dianelys SNOWDEN, I&O, 24H, [facility] Vital Signs/I&O Vital Signs Date Time Temp Pulse Resp B/P (MAP) Pulse Ox O2 Delivery O2 Flow Rate FiO2 12/27/16 09:32 64 137/83 12/27/16 09:31 20 12/27/16 06:00 96.9 97 Nasal Cannula 2.0 I&O- Last 24 Hours up to 6 AM 12/27/16 06:00 Intake Total 3000 ml Output Total 1635 ml Balance 1365 ml Laboratory Data 24H LABS Laboratory Tests 2 12/27/16 05:48: White Blood Count 9.7, Red Blood Count 4.40, Hemoglobin 12.3L, Hematocrit 38.4L , Mean Corpuscular Volume 87.2, Mean Corpuscular Hemoglobin 28.0, Mean Corpuscular Hemoglobin Concent 32.1, Red Cell Distribution Width 16.5H, Platelet Count 599H, Neutrophils (%) (Auto) 66.7H, Lymphocytes (%) (Auto) 21.7L , Monocytes (%) (Auto) 4.1, Eosinophils (%) (Auto) 3.5H, Basophils (%) (Auto) 1.1H, Neutrophils # (Auto) 6.5, Lymphocytes # (Auto) 2.4, Monocytes # (Auto) 0.4 , Eosinophils # (Auto) 0.3, Basophils # (Auto) 0.1, Large Unclassified Cells % 2.9, Large Unclassified Cells # 0.3, Anion Gap 9, Glomerular Filtration Rate > 60.0, Blood Urea Nitrogen 16, Creatinine 1.07, Sodium Level 139, Potassium Level 4.5, Chloride Level 103, Carbon Dioxide Level 27, Calcium Level 10.4H, Magnesium Level 1.6L, C-Reactive Protein, Quantitative 1.15H CBC/BMP Laboratory Tests 12/27/16 05:48 Red Blood Count 4.40, Mean Corpuscular Volume 87.2, Mean Corpuscular Hemoglobin 28.0, Mean Corpuscular Hemoglobin Concent 32.1, Red Cell Distribution Width 16.5 H, Neutrophils (%) (Auto) 66.7 H, Lymphocytes (%) (Auto) 21.7 L, Monocytes (%) (Auto) 4.1, Eosinophils (%) (Auto) 3.5 H, Basophils (%) (Auto) 1.1 H, Neutrophils # (Auto) 6.5, Lymphocytes # (Auto) 2.4, Monocytes # (Auto) 0.4, Eosinophils # (Auto) 0.3, Basophils # (Auto) 0.1, Calcium Level 10.4 H Microbiology Microbiology 12/20/16 Gram Stain - Final, Complete 12/20/16 Wound Culture - Final, Complete 12/20/16 Anaerobic Culture - Final, Complete 12/17/16 Wound Culture - Final, Complete Staphylococcus Sp Coag Neg 12/17/16 Wound Culture - Final, Complete Staphylococcus Sp Coag Neg 12/17/16 Anaerobic Culture - Final, Complete Prevotella Melaninogenica Anaerobic Cocci 12/17/16 Anaerobic Culture - Final, Complete Anaerobic Cocci DARLIN BURCIAGA Dec 27, 2016 10:54
[2016-12-27 14:00] VITALS: BP 128/76
[2016-12-27] MEDS: ACETAMINOPHEN TAB 650MG DOSE (2X325MG) PO PRN (14:28)
[2016-12-27 20:10] VITALS: BP 176/96
[2016-12-27 20:14] VITALS: BP 176/96
[2016-12-27] MEDS ORDERED: HEPARIN SOD (PORCINE) 5000 UNITS/ML VIAL As Ordered ONE (21:33)
[2016-12-27] MEDS: ATORVASTATIN 10 MG TAB PO SCH (21:39)
[2016-12-27] MEDS: AMITRIPTYLINE 25 MG TAB PO SCH (21:39)
[2016-12-28] MEDS: VANCOMYCIN HCL 1,000 MG, VIAL MATE ADAPTER 1 EACH in D5W 250 ML IV SCH ×3 (02:14→18:25)
[2016-12-28] MEDS: SODIUM CHLORIDE 0.9% INJ 10 ML SYR IV SCH ×2 (04:57→18:26)
[2016-12-28] MEDS: HEPARIN SOD (PORCINE) 5000 UNITS/ML VIAL SC SCH ×3 (04:58→21:13)
[2016-12-28 05:18] LABS: BASO # 0.1 K/mm3 (0.0-0.2); BASO % 1.4 % (0.0-1.0); EOS # 0.3 K/mm3 (0.0-0.50); EOS % 3.3 % (0.0-3.0); LARGE UNSTAINED CELL # 0.3 K/mm3 (0.0-0.4); LARGE UNSTAINED CELL % 3.3 % (0.0-4.0); LYMPH # 1.9 K/mm3 (1.5-4.5); LYMPH % 22.3 % (24.0-44.0); MEAN CORPUSCULAR HEMOGLOBIN 27.8 pg (27.0-33.0); MEAN CORPUSCULAR HGB CONC 31.6 g/dl (32.0-36.5); MEAN CORPUSCULAR VOLUME 87.9 fl (80.0-96.0); MONO # 0.3 K/mm3 (0.0-0.8); MONO % 3.7 % (0.0-5.0); NEUTROPHILS # 5.7 K/mm3 (1.8-7.7); PLATELET COUNT, AUTOMATED 586 k/mm3 (150-450); RED CELL DISTRIBUTION WIDTH 16.3 % (11.5-14.5); WHITE BLOOD COUNT 8.7 K/mm3 (4.0-10.0)
[2016-12-28 05:39] LABS: ANION GAP 6 MEQ/L (8-16); BLOOD UREA NITROGEN 13 MG/DL (7-18); CALCIUM LEVEL 10.5 MG/DL (8.5-10.1); CARBON DIOXIDE LEVEL 30 MEQ/L (21-32); CHLORIDE LEVEL 104 MEQ/L (98-107); CREATININE FOR GFR 0.98 MG/DL (0.70-1.30); GLOMERULAR FILTRATION RATE > 60.0 (>56); GLUCOSE, FASTING 160 MG/DL (70-105); MAGNESIUM LEVEL 1.5 MG/DL (1.8-2.4); POTASSIUM SERUM 4.8 MEQ/L (3.5-5.1); SODIUM LEVEL 140 MEQ/L (136-145)
[2016-12-28] MEDS: cloNIDine 0.1 MG TAB PO SCH ×3 (05:43→21:17)
[2016-12-28 05:50] VITALS: BP 129/71
[2016-12-28] MEDS: HumaLOG INSULIN (NovoLOG) PER UNIT SC SCH ×4 (09:40→21:00)
[2016-12-28] MEDS: PRIMIDONE 50 MG TAB PO SCH ×2 (09:47→21:15)
[2016-12-28] MEDS: SENOKOT S TAB PO SCH ×2 (09:47→21:15)
[2016-12-28] MEDS: oxyCODONE 15 MG CR TAB PO SCH ×2 (09:47→21:15)
[2016-12-28] MEDS: VITAMIN D 1,000 INTERNATIONAL UNITS TABLET PO SCH (09:48)
[2016-12-28] MEDS: MAGNESIUM OXIDE 400 MG TAB (MAG-OX) PO SCH ×3 (09:48→21:15)
[2016-12-28] MEDS: ASPIRIN 81 MG ENTERIC TAB PO SCH (09:48)
[2016-12-28] MEDS: amLODIPine 5 MG TAB PO SCH ×2 (09:48→21:16)
[2016-12-28] MEDS: PANTOPRAZOLE 40MG TAB (PROTONIX) PO SCH (09:48)
[2016-12-28] MEDS: buPROPion **XL** TABLET 150MG (WELLBUTRIN XL) PO SCH (09:48)
[2016-12-28] MEDS: GLIMEPIRIDE 2 MG TAB PO SCH (09:49)
[2016-12-28] MEDS: ALLOPURINOL 100 MG TAB PO SCH (09:50)
[2016-12-28] MEDS: MAG SULF 1GM/100ML (MAG RUN) 1 GM in APPROPRIATE DILUENT 1 EA IV SCH ×2 (09:50→11:08)
[2016-12-28] MEDS: SODIUM CHLORIDE 0.9% INJ 10 ML SYR IV PRN (13:50)
[2016-12-28 14:00] VITALS: BP 141/79
[2016-12-28] MEDS: oxyCODONE 5MG TAB PO PRN (14:31)
--- NOTE | 2016-12-28 15:20 | PHACANCOPD ---
PHARMACY VANCOMYCIN DOSING Pt Demographics Demographics Patient Age:56 , Weight:131.500 , Gender: male Adjusted Body Weight Date: 12/21/16, Adjusted Body Weight: [106] Kg Events Past 24 Hours Events Past 24 Hours: NO: Dialysis, Diuretic Therapy, Change in CrCl, Fever, Elevation in WBC, Pending Diagnostics, Pending Procedures, Other Vancomycin Vancomycin indication: L.FOOT CELLULITIS([employer] COVERAGE) Vancomycin Target Ranges: 15-20 mcg/ml Vancomycin Load Y/N: No Load Dose Date Time Vancomycin Load Dose: Date: Time: Vancomycin Dose Date: 12/21/16. Current Vancomycin Dose: [1g IV q8h @18] Date: 12/15/16. Current Vancomycin Dose: [1 GM IV Q12@06] Intermittent Dosing?: No Labs Labs Vital Signs Label Value Date Time Patient Temperature 97.6 degrees F 12/28/16 1400 Temperature Source Temporal 12/28/16 1400 Item Value Date Time White Blood Count 8.7 K/mm3 12/28/16 0456 Creatinine 0.98 MG/DL 12/28/16 0456 Vancomycin Level Trough 22.2 UG/ML H 12/28/16 0946 Micro Microbiology 12/20/16 Gram Stain - Final, Complete 12/20/16 Wound Culture - Final, Complete 12/20/16 Anaerobic Culture - Final, Complete Creatinine Clearance Date:12/21/16. Creatinine Clearance: [>100 ml/min using adjusted BW]. Date:12/15/16. Creatinine Clearance: [54].CALCULATED Assessment and Plan Maintaining Current Dose?: Yes Reason for dose change: No Dose Change Pharmacist Note Pharmacist Note 12/28: Patient's trough came back at 22.2 today. given the duration he has been on this antibiotic, his height, weight, I&O's we will continue him on his current regime for now. We will repeat his trough in 1 in 2 days to make sure he is not continuing to accumulate and make adjustments as necessary. Date: 12/21/16. Pharmacist note: SCr has significantly improved since admission, random vancomycin level drawn ~5 hours before the dose was 13.7. I have changed his dosing to 1g IV q8h. Wound cultures positive for staph coag neg and staph epi (ANTOINE = 1), cultures from surgery yesterday are pending. Pt is currently on day #8 of vancomycin and Zosyn therapy. We will continue to monitor cultures and renal function. MELONIE FERNANDEZ PHARMACY Dec 28, 2016 15:20
--- NOTE | 2016-12-28 19:42 | IPNPDOC ---
Date Seen The patient was seen on 12/28/16. Progress Note Hospitalist Progress Note Subjective: The patient has no complaints; states he is looking forward to the [employer] race today Objective: Physical Exam: Vitals: Vital Sign - Last 24 Hours 12/27/16 12/27/16 12/27/16 12/27/16 20:10 20:14 21:30 21:39 Temp 97.1 Pulse 70 70 Resp 18 16 B/P (MAP) 176/96 (122) 176/96 (122) Pulse Ox 98 O2 Delivery Nasal Cannula Nasal Cannula O2 Flow Rate 2.0 12/27/16 12/28/16 12/28/16 12/28/16 21:40 05:43 05:50 09:00 Temp 98.2 Pulse 58 Resp 16 B/P (MAP) 176/96 129/71 129/71 (90) Pulse Ox 98 O2 Delivery Nasal Cannula Room Air O2 Flow Rate 2.0 12/28/16 12/28/16 12/28/16 12/28/16 09:47 09:48 14:00 14:31 Temp 97.6 Pulse 58 71 Resp 20 16 20 B/P (MAP) 129/71 141/79 (99) Pulse Ox 96 O2 Delivery Nasal Cannula O2 Flow Rate 2.0 12/28/16 15:01 Resp 20 General: awake, alert, no acute distress HEENT: Normocephalic, atraumatic, extraocular movements intact CV: Regular rate and rhythm Lungs: Clear to auscultation bilaterally Abd: Soft, nontender, nondistended Extremities: Pedal pulses intact on the right with no edema; left foot and ankle is in RUPAL bandage Neuro: Alert and oriented 3, normal speech Psych: Normal Mood and affect Labs and Imaging: Laboratory Tests 12/28/16 04:56 Red Blood Count 4.56, Mean Corpuscular Volume 87.9, Mean Corpuscular Hemoglobin 27.8, Mean Corpuscular Hemoglobin Concent 31.6 L, Red Cell Distribution Width 16.3 H, Neutrophils (%) (Auto) 66.0, Lymphocytes (%) (Auto) 22.3 L, Monocytes (% ) (Auto) 3.7, Eosinophils (%) (Auto) 3.3 H, Basophils (%) (Auto) 1.4 H, Neutrophils # (Auto) 5.7, Lymphocytes # (Auto) 1.9, Monocytes # (Auto) 0.3, Eosinophils # (Auto) 0.3, Basophils # (Auto) 0.1, Calcium Level 10.5 H Assessment and Plan: 56-year-old male with diabetes mellitus type 2, hypertension, hyperlipidemia, depression, anxiety, gout, peripheral neuropathy who presented to the emergency department after he stepped on a metal hayder that got embedded in his foot. He was admitted with cellulitis and has now also been found to have osteomyelitis of the left calcaneus. 1. Osteomyelitis and cellulitis: The patient was febrile upon admission, but fevers have now resolved. CRP is drastically improved, and white count has improved from 16.8-WNL. Blood cultures are negative, but cultures of the foot are growing staph epi, and we'll continue the patient on IV vancomycin. He will need 6 weeks worth of antibiotics (through Jan 25). The patient has been seen by Dr. Ivory of infectious disease, but at this time, she is not available for another week. However, her most recent note stated that the patient should have 6 weeks of IV antibiotics tailored to his cultures. Dr. Izaguirre of podiatry is also following the patient, and we greatly appreciate his help. He completed implantation of antibiotic beads in the foot on 12/23/16. Pain control with long- acting OxyContin 60 mg by mouth twice a day, and OXYIR 10 mg for breakthrough 2. Diabetes mellitus type 2: A1c is 8.4. We are currently holding the patient's home metformin and invokana. Continue glimeperide, as well as sliding scale insulin while in-house. 3. Acute kidney injury: This was present on admission, but has now resolved. We are currently holding the patient's home RUPAL inhibitor. Continue to monitor closely. 4. Thrombocytosis: Patient's platelets have been elevated in the 600-700 range, but today are improving. I suspect that this is reactive from his infection. We will continue to monitor 5. Hyponatremia: This was present upon admission but has now resolved. We are currently holding his home HCTZ. Continue to monitor. 6. Hypertension: Currently holding home RUPAL inhibitor and HCTZ. Continue the Norvasc and clonidine which was started here. 7. Hyperlipidemia: Continue home statin. 8. Depression and anxiety: Continue home Elavil, Wellbutrin. 9. Gout: Not currently active. Continue home allopurinol. 10. Bulge on left calf: Upon my exam, this appears to be a varicose vein. However, the patient was very worried that this may represent a blood clot, so performed doppler ultrasound, which was negative for DVT. 11. Hypomagnesemia: Has required multiple IV replacement; continue scheduled PO mag-ox. DVT prophylaxis: Heparin Dispo: patient is not comfortable going home with PICC line and IV antibiotics, so we will have to search for some sort of correction facility where he can complete his antibiotics; he will also need outpatient follow-up with Dr. Ivory VS, I&O, 24H, [facility] Vital Signs/I&O Vital Signs Date Time Temp Pulse Resp B/P (MAP) Pulse Ox O2 Delivery O2 Flow Rate FiO2 12/28/16 15:01 20 12/28/16 14:00 97.6 71 141/79 (99) 96 Nasal Cannula 2.0 I&O- Last 24 Hours up to 6 AM 12/28/16 06:00 Intake Total 2010 ml Output Total 2550 ml Balance -540 ml Laboratory Data 24H LABS Laboratory Tests 2 12/27/16 19:53: Bedside Glucose (Misc Panel) 222H 12/27/16 23:42: Bedside Glucose (Misc Panel) 202H 12/28/16 04:56: White Blood Count 8.7, Red Blood Count 4.56, Hemoglobin 12.7L, Hematocrit 40.1L , Mean Corpuscular Volume 87.9, Mean Corpuscular Hemoglobin 27.8, Mean Corpuscular Hemoglobin Concent 31.6L, Red Cell Distribution Width 16.3H, Platelet Count 586H, Neutrophils (%) (Auto) 66.0, Lymphocytes (%) (Auto) 22.3L, Monocytes (%) (Auto) 3.7, Eosinophils (%) (Auto) 3.3H, Basophils (%) (Auto) 1.4H , Neutrophils # (Auto) 5.7, Lymphocytes # (Auto) 1.9, Monocytes # (Auto) 0.3, Eosinophils # (Auto) 0.3, Basophils # (Auto) 0.1, Large Unclassified Cells % 3.3 , Large Unclassified Cells # 0.3, Anion Gap 6L, Glomerular Filtration Rate > 60.0, Blood Urea Nitrogen 13, Creatinine 0.98, Sodium Level 140, Potassium Level 4.8, Chloride Level 104, Carbon Dioxide Level 30, Calcium Level 10.5H, Magnesium Level 1.5L, C-Reactive Protein, Quantitative 0.79H 12/28/16 09:46: Vancomycin Level Trough 22.2H 12/28/16 13:48: Magnesium Level 1.8 CBC/BMP Laboratory Tests 12/28/16 04:56 Red Blood Count 4.56, Mean Corpuscular Volume 87.9, Mean Corpuscular Hemoglobin 27.8, Mean Corpuscular Hemoglobin Concent 31.6 L, Red Cell Distribution Width 16.3 H, Neutrophils (%) (Auto) 66.0, Lymphocytes (%) (Auto) 22.3 L, Monocytes (% ) (Auto) 3.7, Eosinophils (%) (Auto) 3.3 H, Basophils (%) (Auto) 1.4 H, Neutrophils # (Auto) 5.7, Lymphocytes # (Auto) 1.9, Monocytes # (Auto) 0.3, Eosinophils # (Auto) 0.3, Basophils # (Auto) 0.1, Calcium Level 10.5 H Microbiology Microbiology 12/20/16 Gram Stain - Final, Complete 12/20/16 Wound Culture - Final, Complete 12/20/16 Anaerobic Culture - Final, Complete DARLIN BURCIAGA Dec 28, 2016 19:42
[2016-12-28 20:55] VITALS: BP 143/82
[2016-12-28] MEDS ORDERED: HEPARIN SOD (PORCINE) 5000 UNITS/ML VIAL As Ordered ONE (21:06)
[2016-12-28] MEDS: AMITRIPTYLINE 25 MG TAB PO SCH (21:15)
[2016-12-28] MEDS: ATORVASTATIN 10 MG TAB PO SCH (21:16)
[2016-12-29] MEDS: VANCOMYCIN HCL 1,000 MG, VIAL MATE ADAPTER 1 EACH in D5W 250 ML IV SCH ×3 (01:29→17:22)
[2016-12-29] MEDS: SODIUM CHLORIDE 0.9% INJ 10 ML SYR IV SCH ×2 (02:41→17:23)
[2016-12-29] MEDS: cloNIDine 0.1 MG TAB PO SCH ×3 (05:56→21:20)
[2016-12-29] MEDS: SODIUM CHLORIDE 0.9% INJ 10 ML SYR IV PRN ×2 (06:03→12:39)
[2016-12-29] MEDS: HEPARIN SOD (PORCINE) 5000 UNITS/ML VIAL SC SCH ×3 (06:03→21:23)
[2016-12-29 06:05] VITALS: BP 142/69
[2016-12-29] MEDS: oxyCODONE 5MG TAB PO PRN ×2 (06:14→15:41)
[2016-12-29 06:38] LABS: BASO # 0.1 K/mm3 (0.0-0.2); BASO % 1.5 % (0.0-1.0); EOS # 0.3 K/mm3 (0.0-0.50); EOS % 3.7 % (0.0-3.0); LARGE UNSTAINED CELL # 0.3 K/mm3 (0.0-0.4); LARGE UNSTAINED CELL % 2.8 % (0.0-4.0); LYMPH # 2.4 K/mm3 (1.5-4.5); LYMPH % 24.2 % (24.0-44.0); MEAN CORPUSCULAR HGB CONC 32.2 g/dl (32.0-36.5); MONO # 0.4 K/mm3 (0.0-0.8); NEUTROPHILS # 5.6 K/mm3 (1.8-7.7); NEUTROPHILS % 63.7 % (36.0-66.0); PLATELET COUNT, AUTOMATED 551 k/mm3 (150-450); RED CELL DISTRIBUTION WIDTH 16.5 % (11.5-14.5); WHITE BLOOD COUNT 8.8 K/mm3 (4.0-10.0)
[2016-12-29 06:46] LABS: ANION GAP 4 MEQ/L (8-16); BLOOD UREA NITROGEN 13 MG/DL (7-18); CALCIUM LEVEL 10.4 MG/DL (8.5-10.1); CARBON DIOXIDE LEVEL 32 MEQ/L (21-32); CHLORIDE LEVEL 104 MEQ/L (98-107); CREATININE FOR GFR 1.06 MG/DL (0.70-1.30); GLOMERULAR FILTRATION RATE > 60.0 (>56); GLUCOSE, FASTING 114 MG/DL (70-105); MAGNESIUM LEVEL 1.6 MG/DL (1.8-2.4); POTASSIUM SERUM 4.4 MEQ/L (3.5-5.1); SODIUM LEVEL 140 MEQ/L (136-145)
[2016-12-29] MEDS: MAG SULF 1GM/100ML (MAG RUN) 1 GM in APPROPRIATE DILUENT 1 EA IV SCH ×2 (07:48→09:12)
[2016-12-29] MEDS: GLIMEPIRIDE 2 MG TAB PO SCH (07:48)
[2016-12-29] MEDS: HumaLOG INSULIN (NovoLOG) PER UNIT SC SCH ×4 (07:49→21:00)
[2016-12-29] MEDS: VITAMIN D 1,000 INTERNATIONAL UNITS TABLET PO SCH (09:12)
[2016-12-29] MEDS: PANTOPRAZOLE 40MG TAB (PROTONIX) PO SCH (09:12)
[2016-12-29] MEDS: PRIMIDONE 50 MG TAB PO SCH ×2 (09:13→21:20)
[2016-12-29] MEDS: ALLOPURINOL 100 MG TAB PO SCH (09:13)
[2016-12-29] MEDS: SENOKOT S TAB PO SCH ×2 (09:13→21:19)
[2016-12-29] MEDS: MAGNESIUM OXIDE 400 MG TAB (MAG-OX) PO SCH ×3 (09:13→21:19)
[2016-12-29] MEDS: oxyCODONE 15 MG CR TAB PO SCH ×2 (09:14→21:23)
[2016-12-29] MEDS: ASPIRIN 81 MG ENTERIC TAB PO SCH (09:14)
[2016-12-29] MEDS: amLODIPine 5 MG TAB PO SCH ×2 (09:22→21:19)
[2016-12-29] MEDS: buPROPion **XL** TABLET 150MG (WELLBUTRIN XL) PO SCH (09:29)
[2016-12-29 09:47] LABS: ERYTHROCYTE SEDIMENTATION RATE 28 mm/hr (0-20)
[2016-12-29] MEDS: ACETAMINOPHEN TAB 650MG DOSE (2X325MG) PO PRN (12:38)
--- NOTE | 2016-12-29 13:18 | IPNPDOC ---
Date Seen The patient was seen on 12/29/16. Progress Note Hospitalist Progress Note Subjective: The patient reports feeling like he needs to have a BM but is otherwise doing well Objective: Physical Exam: Vitals: Vital Sign - Last 24 Hours 12/28/16 12/28/16 12/28/16 12/28/16 14:00 14:31 20:55 21:15 Temp 97.6 98.9 Pulse 71 71 Resp 16 20 18 18 B/P (MAP) 141/79 (99) 143/82 (102) Pulse Ox 96 98 O2 Delivery Nasal Cannula Nasal Cannula O2 Flow Rate 2.0 2.0 12/28/16 12/28/16 12/28/16 12/29/16 21:16 21:17 21:45 05:56 Pulse 71 B/P (MAP) 143/82 143/82 142/69 O2 Delivery Room Air 12/29/16 12/29/16 12/29/16 12/29/16 06:05 06:14 06:50 09:00 Temp 98.6 Pulse 60 Resp 16 18 18 B/P (MAP) 142/69 (93) Pulse Ox 100 O2 Delivery Nasal Cannula Room Air O2 Flow Rate 2.0 12/29/16 12/29/16 09:14 09:22 Pulse 69 Resp 18 B/P (MAP) 130/60 General: awake, alert, no acute distress HEENT: Normocephalic, atraumatic, extraocular movements intact CV: Regular rate and rhythm Lungs: Clear to auscultation bilaterally Abd: Soft, nontender, nondistended Extremities: Pedal pulses intact on the right with no edema; left foot and ankle is in RUPAL bandage Neuro: Alert and oriented 3, normal speech Psych: Normal Mood and affect Labs and Imaging: Laboratory Tests 12/29/16 06:09 Red Blood Count 4.52, Mean Corpuscular Volume 87.0, Mean Corpuscular Hemoglobin 28.0, Mean Corpuscular Hemoglobin Concent 32.2, Red Cell Distribution Width 16.5 H, Neutrophils (%) (Auto) 63.7, Lymphocytes (%) (Auto) 24.2, Monocytes (%) (Auto) 4.0, Eosinophils (%) (Auto) 3.7 H, Basophils (%) (Auto) 1.5 H, Neutrophils # (Auto) 5.6, Lymphocytes # (Auto) 2.4, Monocytes # (Auto) 0.4, Eosinophils # (Auto) 0.3, Basophils # (Auto) 0.1, Calcium Level 10.4 H Assessment and Plan: 56-year-old male with diabetes mellitus type 2, hypertension, hyperlipidemia, depression, anxiety, gout, peripheral neuropathy who presented to the emergency department after he stepped on a metal hayder that got embedded in his foot. He was admitted with cellulitis and has now also been found to have osteomyelitis of the left calcaneus. 1. Osteomyelitis and cellulitis: The patient was febrile upon admission, but fevers have now resolved. CRP is drastically improved, and white count has improved from 16.8-WNL. Blood cultures are negative, but cultures of the foot are growing staph epi, and we'll continue the patient on IV vancomycin. He will need 6 weeks worth of antibiotics (through Jan 25). The patient has been seen by Dr. Ivory of infectious disease, but at this time, she is not available for another week. However, her most recent note stated that the patient should have 6 weeks of IV antibiotics tailored to his cultures. Dr. Izaguirre of podiatry is also following the patient, and we greatly appreciate his help. He completed implantation of antibiotic beads in the foot on 12/23/16. Pain control with long- acting OxyContin 60 mg by mouth twice a day, and OXYIR 10 mg for breakthrough 2. Diabetes mellitus type 2: A1c is 8.4. We are currently holding the patient's home metformin and invokana. Continue glimeperide, as well as sliding scale insulin while in-house. 3. Acute kidney injury: This was present on admission, but has now resolved. We are currently holding the patient's home RUPAL inhibitor. Continue to monitor closely. 4. Thrombocytosis: Patient's platelets have been elevated in the 600-700 range, but today are improving. I suspect that this is reactive from his infection. We will continue to monitor 5. Hyponatremia: This was present upon admission but has now resolved. We are currently holding his home HCTZ. Continue to monitor. 6. Hypertension: Currently holding home RUPAL inhibitor and HCTZ. Continue the Norvasc and clonidine which was started here. 7. Hyperlipidemia: Continue home statin. 8. Depression and anxiety: Continue home Elavil, Wellbutrin. 9. Gout: Not currently active. Continue home allopurinol. 10. Bulge on left calf: Upon my exam, this appears to be a varicose vein. However, the patient was very worried that this may represent a blood clot, so performed doppler ultrasound, which was negative for DVT. 11. Hypomagnesemia: Has required multiple IV replacement; continue scheduled PO mag-ox. DVT prophylaxis: Heparin Dispo: patient is not comfortable going home with PICC line and IV antibiotics, so we will have to search for some sort of long-term facility where he can complete his antibiotics; he will also need outpatient follow-up with Dr. Ivory and Dr. Izaguirre; per CM, has a bed at the [facility] tomorrow VS, I&O, [facility] Vital Signs/I&O Vital Signs Date Time Temp Pulse Resp B/P (MAP) Pulse Ox O2 Delivery O2 Flow Rate FiO2 12/29/16 09:22 69 130/60 12/29/16 09:14 18 12/29/16 09:00 Room Air 12/29/16 06:05 98.6 100 2.0 I&O- Last 24 Hours up to 6 AM 12/29/16 06:00 Intake Total 2570 ml Output Total 2725 ml Balance -155 ml Laboratory Data 24H LABS Laboratory Tests 2 12/28/16 13:48: Magnesium Level 1.8 12/29/16 06:09: Magnesium Level 1.6L, White Blood Count 8.8, Red Blood Count 4.52, Hemoglobin 12.7L, Hematocrit 39.3L, Mean Corpuscular Volume 87.0, Mean Corpuscular Hemoglobin 28.0, Mean Corpuscular Hemoglobin Concent 32.2, Red Cell Distribution Width 16.5H, Platelet Count 551H, Neutrophils (%) (Auto) 63.7, Lymphocytes (%) (Auto) 24.2, Monocytes (%) (Auto) 4.0, Eosinophils (%) (Auto) 3.7H, Basophils (%) (Auto) 1.5H, Neutrophils # (Auto) 5.6, Lymphocytes # (Auto) 2.4, Monocytes # (Auto) 0.4, Eosinophils # (Auto) 0.3, Basophils # (Auto) 0.1, Large Unclassified Cells % 2.8, Large Unclassified Cells # 0.3, Erythrocyte Sedimentation Rate 28H, Anion Gap 4L, Glomerular Filtration Rate > 60.0, Blood Urea Nitrogen 13, Creatinine 1.06, Sodium Level 140, Potassium Level 4.4, Chloride Level 104, Carbon Dioxide Level 32, Calcium Level 10.4H, C-Reactive Protein, Quantitative 0.58H CBC/BMP Laboratory Tests 12/29/16 06:09 Red Blood Count 4.52, Mean Corpuscular Volume 87.0, Mean Corpuscular Hemoglobin 28.0, Mean Corpuscular Hemoglobin Concent 32.2, Red Cell Distribution Width 16.5 H, Neutrophils (%) (Auto) 63.7, Lymphocytes (%) (Auto) 24.2, Monocytes (%) (Auto) 4.0, Eosinophils (%) (Auto) 3.7 H, Basophils (%) (Auto) 1.5 H, Neutrophils # (Auto) 5.6, Lymphocytes # (Auto) 2.4, Monocytes # (Auto) 0.4, Eosinophils # (Auto) 0.3, Basophils # (Auto) 0.1, Calcium Level 10.4 H Microbiology Microbiology 12/20/16 Gram Stain - Final, Complete 12/20/16 Wound Culture - Final, Complete 12/20/16 Anaerobic Culture - Final, Complete DARLIN BURCIAGA Dec 29, 2016 13:18
[2016-12-29] MEDS ORDERED: VANC1VLAD INJ (13:28)
[2016-12-29] MEDS ORDERED: AMLO5TAB2 PO (13:28)
[2016-12-29] MEDS ORDERED: CLONI1TA PO (13:28)
[2016-12-29] MEDS ORDERED: MAG400TA PO (13:28)
--- NOTE | 2016-12-29 13:35 | DS.PDOC ---
Discharge Summary General Date of Admission Dec 14, 2016 at 18:24 Date of Discharge 12/30/2016 Discharge Summary DISCHARGE SUMMARY DATE OF ADMISSION: 12/14/2016 DATE OF DISCHARGE: 12/30/2016 PRIMARY CARE PHYSICIAN: Dr. Dago Diop DISCHARGE DIAGNOS(E)S: Osteomyelitis and cellulitis of the left calcaneus Acute kidney injury Acute thrombocytosis Hyponatremia Hypomagnesemia HPI & HOSPITAL COURSE: 56-year-old male with diabetes mellitus type 2, hypertension, hyperlipidemia, depression, anxiety, gout, peripheral neuropathy who presented to the emergency department after he stepped on a metal hayder that got embedded in his foot. He was admitted with cellulitis and has now also been found to have osteomyelitis of the left calcaneus. 1. Osteomyelitis and cellulitis: The patient was febrile upon admission, but fevers have now resolved. CRP is drastically improved, and white count has improved from 16.8-WNL. Blood cultures are negative, but cultures of the foot are growing staph epi, and we'll continue the patient on IV vancomycin. He will need 6 weeks worth of antibiotics (through Jan 25). The patient has been seen by Dr. Ivory of infectious disease, but at this time, she is not available for another week. However, her most recent note stated that the patient should have 6 weeks of IV antibiotics tailored to his cultures. Dr. Izaguirre of podiatry is also following the patient, and we greatly appreciate his help. He completed implantation of antibiotic beads in the foot on 12/23/16. Pain control with long- acting OxyContin 60 mg by mouth twice a day, and OXYIR 10 mg for breakthrough 2. Diabetes mellitus type 2: A1c is 8.4. We are currently holding the patient's home metformin and invokana but will resume at discharge. Continue glimeperide, as well as sliding scale insulin while in-house. 3. Acute kidney injury: This was present on admission, but has now resolved. We have stopped the patient's home RUPAL inhibitor. Continue to monitor closely. 4. Thrombocytosis: Patient's platelets have been elevated in the 600-700 range, but today are improving. I suspect that this is reactive from his infection. We will continue to monitor 5. Hyponatremia: This was present upon admission but has now resolved. We have stopped his home HCTZ. Continue to monitor. 6. Hypertension: Have now stopped home RUPAL inhibitor and HCTZ. Continue the Norvasc and clonidine which was started here. 7. Hyperlipidemia: Continue home statin. 8. Depression and anxiety: Continue home Elavil, Wellbutrin. 9. Gout: Not currently active. Continue home allopurinol. 10. Bulge on left calf: Upon my exam, this appears to be a varicose vein. However, the patient was very worried that this may represent a blood clot, so performed doppler ultrasound, which was negative for DVT. 11. Hypomagnesemia: Has required multiple IV replacement; continue scheduled PO mag-ox. DVT prophylaxis: Heparin Dispo: patient is not comfortable going home with PICC line and IV antibiotics, so CM has arranged transfer to [facility], where he can complete his antibiotics; he will also need outpatient follow-up with Dr. Ivory DISPOSITION: [facility] DISCHARGE INSTRUCTIONS: Follow-up with Dr. Izaguirre within 1 week. Follow-up with Dr. Ivory within 10 days. Patient will need weekly CBC and BMP, as well as routine vanc troughs, while on IV vancomycin. These results should be sent to Dr. Ivory. Continue IV vancomycin through 01/25/2017. If symptoms return, or if you experience worsening of your symptoms, please call your doctor or return to the emergency department. ITEMS THAT NEED OUTPATIENT FOLLOWUP: Follow-up by Dr. Ivory of labs while on IV vancomycin I spent a total time of greater than 30 minutes on this discharge. Microbiology Microbiology 12/20/16 Gram Stain - Final, Complete 12/20/16 Wound Culture - Final, Complete 12/20/16 Anaerobic Culture - Final, Complete Discharge Medications Scheduled (Celecoxib) 200 Mg Cap, 200 MG PO DAILY, (Reported) Allopurinol (Zyloprim) 300 Mg Tab, 300 MG PO DAILY, (Reported) Amitriptyline HCl (Amitriptyline HCl) 25 Mg Tab, 25 MG PO QHS, (Reported) Amlodipine Besylate (Amlodipine Besylate) 5 Mg Tab, 5 MG PO BID Aspirin (Aspir-81) 81 Mg Tab, 81 MG PO DAILY, (Reported) Atorvastatin Calcium (Atorvastatin Calcium) 10 Mg Tab, 10 MG PO QHS, (Reported) Bupropion HCl (Bupropion HCl ER) 150 Mg Tab, 150 MG PO DAILY, (Reported) Canagliflozin (Invokana) 300 Mg Tab, 300 MG PO DAILY, (Reported) Cholecalciferol (Vitamin D3 Maximum Streng) 5,000 Unit Cap, 5,000 UNIT PO DAILY, (Reported) Clonidine Hcl (Catapres) 0.1 Mg Tab, 0.1 MG PO Q8H Enalapril Maleate (Enalapril Maleate) 20 Mg Tab, 20 MG PO DAILY, (Reported) Esomeprazole Magnesium Trihydr (Nexium) 40 Mg Cap, 40 MG PO DAILY, (Reported) Glimepiride (Glimepiride) 4 Mg Tab, 4 MG PO DAILY, (Reported) Hydrochlorothiazide (Hydrochlorothiazide) 25 Mg Tab, 25 MG PO DAILY, (Reported) Levocetirizine Hydrochloride (Levocetirizine Dihydrochl) 5 Mg Tab, 5 MG PO DAILY , (Reported) Magnesium Oxide (Magnesium Oxide) 400 Mg Tab, 400 MG PO TID Metformin Hydrochloride (Metformin HCl) 1,000 Mg Tab, 1,000 MG PO BID, (Reported ) Multivitamins (Centrum) 1 Tab Tab, 1 TAB PO DAILY, (Reported) Niacin (Niaspan) 1,000 Mg Tab, 1,000 MG PO QHS, (Reported) Oxycodone HCl (Oxycontin) 60 Mg Tab, 60 MG PO BID, (Reported) Primidone (Primidone) 50 Mg Tab, 200 MG PO BID, (Reported) Vancomycin HCl (Vancomycin HCl) 1,000 Mg Soln, 1,000 MG INJ Q8H Continue through Jan 25, 2017 Scheduled PRN Oxycodone HCl (Oxycodone HCl) 10 Mg Tab, 10 MG PO Q4H PRN for PAIN, (Reported) Allergies Coded Allergies: Povidone Iodine (Verified Allergy, Unknown, 10/06/16) DARLIN BURCIAGA Dec 29, 2016 13:35
[2016-12-29] MEDS: DOCUSATE SODIUM 100 MG CAP PO SCH ×2 (13:51→21:00)
[2016-12-29] MEDS: MIRALAX *UNIT DOSE* 17GM PACKET PO SCH (13:52)
[2016-12-29 14:00] VITALS: BP 160/84
[2016-12-29] MEDS: ATORVASTATIN 10 MG TAB PO SCH (21:19)
[2016-12-29] MEDS: AMITRIPTYLINE 25 MG TAB PO SCH (21:20)
[2016-12-29 22:00] VITALS: BP 156/85
[2016-12-30] MEDS: VANCOMYCIN HCL 1,000 MG, VIAL MATE ADAPTER 1 EACH in D5W 250 ML IV SCH ×2 (01:30→11:28)
[2016-12-30] MEDS: HEPARIN SOD (PORCINE) 5000 UNITS/ML VIAL SC SCH (05:23)
[2016-12-30] MEDS: SODIUM CHLORIDE 0.9% INJ 10 ML SYR IV SCH (05:24)
[2016-12-30 06:00] VITALS: BP 153/81
[2016-12-30] MEDS: cloNIDine 0.1 MG TAB PO SCH (06:00)
[2016-12-30 06:05] LABS: MAGNESIUM LEVEL 1.5 MG/DL (1.8-2.4)
[2016-12-30] MEDS: MAG SULF 1GM/100ML (MAG RUN) 1 GM in APPROPRIATE DILUENT 1 EA IV SCH ×2 (08:53→10:10)
[2016-12-30] MEDS: SENOKOT S TAB PO SCH (08:53)
[2016-12-30] MEDS: VITAMIN D 1,000 INTERNATIONAL UNITS TABLET PO SCH (08:54)
[2016-12-30] MEDS: oxyCODONE 15 MG CR TAB PO SCH (08:54)
[2016-12-30] MEDS: ALLOPURINOL 100 MG TAB PO SCH (08:55)
[2016-12-30] MEDS: DOCUSATE SODIUM 100 MG CAP PO SCH (08:55)
[2016-12-30] MEDS: PANTOPRAZOLE 40MG TAB (PROTONIX) PO SCH (08:55)
[2016-12-30] MEDS: PRIMIDONE 50 MG TAB PO SCH (08:55)
[2016-12-30] MEDS: ASPIRIN 81 MG ENTERIC TAB PO SCH (08:55)
[2016-12-30] MEDS: GLIMEPIRIDE 2 MG TAB PO SCH (08:56)
[2016-12-30] MEDS: MIRALAX *UNIT DOSE* 17GM PACKET PO SCH (08:56)
[2016-12-30] MEDS: MAGNESIUM OXIDE 400 MG TAB (MAG-OX) PO SCH (08:57)
[2016-12-30] MEDS: HumaLOG INSULIN (NovoLOG) PER UNIT SC SCH ×2 (08:57→12:36)
[2016-12-30 09:01] VITALS: BP 142/77
[2016-12-30] MEDS: amLODIPine 5 MG TAB PO SCH (09:01)
[2016-12-30] MEDS: buPROPion **XL** TABLET 150MG (WELLBUTRIN XL) PO SCH (10:09)
[2016-12-30] MEDS: oxyCODONE 5MG TAB PO PRN (11:27)
[2016-12-30] MEDS: SODIUM CHLORIDE 0.9% INJ 10 ML SYR IV PRN (12:36)
--- NOTE | 2016-12-30 13:53 | IPNPDOC ---
Text Note Date of Service The patient was seen on 12/30/16. NOTE Pt had no acute changes overnight. Remained hemodynamically stable. Will need Calcium and magnesium monitored at [facility] and with PCP. Pt to be sent to [facility] today. Please see Dr. Vargas's discharge note on 12/29/16. VS,Fishbone, I+O VS, Fishbone, I+O Vital Signs Date Time Temp Pulse Resp B/P (MAP) Pulse Ox O2 Delivery O2 Flow Rate FiO2 12/30/16 12:08 18 Room Air 12/30/16 09:01 85 142/77 12/30/16 06:00 97.6 94 12/29/16 14:00 2.0 I&O- Last 24 Hours up to 6 AM 12/30/16 05:59 Intake Total 1200 ml Output Total 1875 ml Balance -675 ml ROWENA DESAI MD Dec 30, 2016 13:53
== END 2016-12-30 13:43 | DRG 464 ==
LOC: M ED 13:35 → M ED INP 18:24 → M MSPAV 22:45
PROVIDERS: ADMIT Internal Medicine; ATTEND Hospitalist
PROC: 0QBM0ZX Excision of Left Tarsal, Open Approach, Diagnostic (ICD-10-PCS; 2016-12-17)
PROC: 0QBM0ZZ Excision of Left Tarsal, Open Approach (ICD-10-PCS; 2016-12-17)
PROC: 0JBR0ZZ Excision of Left Foot Subcutaneous Tissue and Fascia, Open Approach (ICD-10-PCS; principal; 2016-12-17 12:08)
PROC: 02HV33Z Insertion of Infusion Device into Superior Vena Cava, Percutaneous Approach (ICD-10-PCS; 2016-12-19)
PROC: 0MDT0ZZ Extraction of Left Foot Bursa and Ligament, Open Approach (ICD-10-PCS; 2016-12-20)
PROC: 0MDT0ZZ Extraction of Left Foot Bursa and Ligament, Open Approach (ICD-10-PCS; 2016-12-23)
PROC: 3E0V329 Introduction of Other Anti-infective into Bones, Percutaneous Approach (ICD-10-PCS; 2016-12-23)
DX: M86.10 Other acute osteomyelitis, unspecified site (principal); L03.116 Cellulitis of left lower limb; E87.1 Hypo-osmolality and hyponatremia; N17.9 Acute kidney failure, unspecified; S91.332A Puncture wound without foreign body, left foot, initial encounter; E11.42 Type 2 diabetes mellitus with diabetic polyneuropathy; I10 Essential (primary) hypertension; E78.5 Hyperlipidemia, unspecified; F32.9 Major depressive disorder, single episode, unspecified; F41.9 Anxiety disorder, unspecified; M10.9 Gout, unspecified; K59.00 Constipation, unspecified; Z79.82 Long term (current) use of aspirin; Z79.84 Long term (current) use of oral hypoglycemic drugs; Z79.899 Other long term (current) drug therapy; Z79.891 Long term (current) use of opiate analgesic; Z88.8 Allergy status to other drugs, medicaments and biological substances; Z96.651 Presence of right artificial knee joint; Z89.421 Acquired absence of other right toe(s); E87.6 Hypokalemia; K21.9 Gastro-esophageal reflux disease without esophagitis; N40.0 Benign prostatic hyperplasia without lower urinary tract symptoms; Z87.891 Personal history of nicotine dependence; G47.33 Obstructive sleep apnea (adult) (pediatric); D69.6 Thrombocytopenia, unspecified; E83.42 Hypomagnesemia; W45.8XXA Other foreign body or object entering through skin, initial encounter; Y99.8 Other external cause status; Y92.015 Private garage of single-family (private) house as the place of occurrence of the external cause; I83.92 Asymptomatic varicose veins of left lower extremity; B95.8 Unspecified staphylococcus as the cause of diseases classified elsewhere

== ENCOUNTER → 2016-12-31 | Outpatient (REF) ==
[~2016-12-31] MED LIST changes: +ACET1TAB17 PO; +AMLO5TAB2 PO; +AMOX875T2 PO; +ASPI81TAEC PO; +BENZ-52 PO; +BUPR150T3 PO; +CARV12.5 PO; +CLONI1TA PO; +COLA100C5 PO; +COUM1TAB17 PO; +ELIQ5TAB PO; +FAMO20TA PO; +FEBU40TA PO; +FURO20TA2 PO; +GLIM4TAB PO; +HEPA100PFS INJ; +HYDR25TA PO; +LOVE0.8I SC; +MAG400TA PO; +METF10004 PO; +MILKSUS PO; +MIRA33504 PO; +NORM0.9I9 IV; +NOVOINJ3 SC; +OXYC60TA PO; +SANT250O8 TOP; +SENN8.6C PO; +SENN8.6T7 PO; +TUBE5INJ ID; +VANC1VLAD INJ; +VITA100066 PO; +VITMTA PO
[2016-12-31 10:25] LABS: MEAN CORPUSCULAR HEMOGLOBIN 28.6 pg (27.0-33.0); MEAN CORPUSCULAR HGB CONC 32.4 g/dl (32.0-36.5); MEAN CORPUSCULAR VOLUME 88.1 fl (80.0-96.0); RED CELL DISTRIBUTION WIDTH 16.5 % (11.5-14.5)
[2016-12-31 12:29] LABS: ANION GAP 6 MEQ/L (8-16); BLOOD UREA NITROGEN 13 MG/DL (7-18); CALCIUM LEVEL 11.1 MG/DL (8.5-10.1); CARBON DIOXIDE LEVEL 33 MEQ/L (21-32); CHLORIDE LEVEL 101 MEQ/L (98-107); GLOMERULAR FILTRATION RATE > 60.0 (>56); GLUCOSE, FASTING 95 MG/DL (70-105); MAGNESIUM LEVEL 1.6 MG/DL (1.8-2.4); POTASSIUM SERUM 4.8 MEQ/L (3.5-5.1); SODIUM LEVEL 140 MEQ/L (136-145)
== END ==
DX: E83.42 Hypomagnesemia (principal); M86.9 Osteomyelitis, unspecified

== ENCOUNTER → 2017-01-02 | Outpatient (CLI) | payer MEDICARE, MEDICAID ==
--- NOTE | 2017-01-02 14:39 | REP ---
Left upper extremity duplex Doppler venous ultrasound. Real time compression and duplex Doppler evaluation of the left upper extremity deep venous system is performed. The left subclavian, jugular, axillary, brachial, basilic and cephalic veins are fully compressible where accessible with transducer pressure, and demonstrate no intraluminal thrombus and normal venous waveforms. There is no evidence of deep venous thrombosis. Impression: No evidence of deep venous thrombosis of the left upper extremity deep vein system. Signed by Sesar Gatica MD 01/02/2017 02:31 P
--- NOTE | 2017-01-02 14:56 | REP ---
RIGHT UPPER EXTREMITY DUPLEX DOPPLER VENOUS ULTRASOUND: Real-time compression and duplex Doppler interrogation of the right upper extremity deep vein system is performed. There is a right arm PICC line in place. There is partial thrombosis surrounding the PICC line in the right axillary vein. There is no extension into the adjacent right subclavian or jugular veins and no extension is seen into the brachial, basilic, or cephalic veins with those vessels fully compressible with transducer pressure demonstrating normal internal blood flow. IMPRESSION: Partial thrombosis right axillary vein. Signed by Sesar Gatica MD 01/02/2017 05:13 P
--- NOTE | 2017-01-02 17:12 | REP ---
Procedure: PICC line insertion with Pierce-Justyna The procedure was performed under the direct supervision of Dr. Gatica. The risks and benefits of the procedure were explained to the patient and informed consent was obtained. The left basilic vein was localized using ultrasound guidance. The skin was prepped and draped in a sterile fashion. 2% lidocaine was used as a local anesthetic. Using ultrasound guidance the basilic vein was cannulated and a 0.018 guidewire was inserted and advanced to the SVC using fluoroscopic guidance. The needle was removed and a 4.5 [place] dilator and peel-away sheath was inserted over the guide wire. A 4.5 [place] single lumen catheter was cut to length of 46 cm. The dilator was removed and the catheter was inserted over the guide wire with the tip ending in the SVC. The peel-away sheath was removed and the catheter was flushed with heparinized saline as per Hospital protocol. The catheter was affixed to the skin and a sterile dressing was applied. The the patient tolerated the procedure well and there were no immediate complications. 0.1 minutes of fluoro time was utilized for this procedure. Reviewed by NISH Sol 01/02/2017 04:36 PSigned by Sesar Gatica MD 01/02/2017 04:58 P
== END ==
LOC: M RAD 13:31
PROVIDERS: ATTEND Physician Assistant
DX: M79.621 Pain in right upper arm (principal)

== ENCOUNTER → 2017-01-06 | Outpatient (REF) ==
[2017-01-06 12:12] LABS: ANION GAP 5 MEQ/L (8-16); BLOOD UREA NITROGEN 12 MG/DL (7-18); CALCIUM LEVEL 10.7 MG/DL (8.5-10.1); CARBON DIOXIDE LEVEL 34 MEQ/L (21-32); CHLORIDE LEVEL 100 MEQ/L (98-107); CREATININE FOR GFR 1.16 MG/DL (0.70-1.30); GLOMERULAR FILTRATION RATE > 60.0 (>56); GLUCOSE, FASTING 153 MG/DL (70-105); MAGNESIUM LEVEL 1.4 MG/DL (1.8-2.4); POTASSIUM SERUM 4.4 MEQ/L (3.5-5.1); SODIUM LEVEL 139 MEQ/L (136-145)
[2017-01-06 12:40] LABS: MEAN CORPUSCULAR HEMOGLOBIN 28.3 pg (27.0-33.0); MEAN CORPUSCULAR HGB CONC 31.9 g/dl (32.0-36.5); MEAN CORPUSCULAR VOLUME 88.6 fl (80.0-96.0); RED CELL DISTRIBUTION WIDTH 16.8 % (11.5-14.5); WHITE BLOOD COUNT 7.7 K/mm3 (4.0-10.0)
== END ==
DX: M86.9 Osteomyelitis, unspecified (principal)

== ENCOUNTER 2017-01-08 21:30 | Emergency (ER) | payer MEDICARE, MEDICAID ==
[~2017-01-08] VITALS: Ht 195.6 cm; Wt 115.9 kg
[~2017-01-08 21:30] MED LIST changes: -ACET1TAB17 PO; -AMOX875T2 PO; -ASPI81TAEC PO; -BENZ-52 PO; -BUPR150T3 PO; -CARV12.5 PO; -COLA100C5 PO; -COUM1TAB17 PO; -ELIQ5TAB PO; -FAMO20TA PO; -FEBU40TA PO; -FURO20TA2 PO; -HEPA100PFS INJ; -HYDR25TA PO; -LOVE0.8I SC; -MILKSUS PO; -MIRA33504 PO; -NORM0.9I9 IV; -NOVOINJ3 SC; -OXYC60TA PO; -SANT250O8 TOP; -SENN8.6C PO; -SENN8.6T7 PO; -TUBE5INJ ID; -VITA100066 PO; -VITMTA PO
[2017-01-08 21:33] VITALS: BP 191/86
[2017-01-08] MEDS ORDERED: TUBE5INJ ID (22:29)
[2017-01-08] MEDS ORDERED: NOVOINJ3 SC (22:29)
[2017-01-08] MEDS ORDERED: HEPA100PFS INJ (22:29)
[2017-01-08] MEDS ORDERED: COLA100C5 PO (22:29)
[2017-01-08] MEDS ORDERED: ENAL20TA PO (22:29)
[2017-01-08] MEDS ORDERED: ELIQ5TAB PO (22:29)
[2017-01-08] MEDS ORDERED: MILKSUS PO (22:29)
[2017-01-08] MEDS ORDERED: ACET1TAB17 PO (22:29)
[2017-01-08] MEDS ORDERED: SENN8.6C PO (22:29)
[2017-01-08] MEDS ORDERED: NORM0.9I9 IV (22:29)
--- NOTE | 2017-01-08 22:50 | REPUSA ---
CLINICAL HISTORY: Left upper extremity edema COMMENTS: Real time sonography with duplex doppler of the left upper extremity was performed with attention to the major deep venous structures. PICC line is in the basilic vein. The left internal jugular, cephalic, basilic, radial and ulnar veins all reveal complete lumen compre ssibility without intraluminal thrombus. The left subclavian and axillary veins are also clear of thr ombus. There is normal spontaneous phasic flow and augmentation throughout the deep veins. IMPRESSION: No evidence of DVT in the left upper extremity. Thank you for your kind referral of this patient.
[2017-01-09] MEDS ORDERED: SODIUM CHLORIDE 0.9% INJ 10 ML SYR IV SCH (06:00)
== END 2017-01-09 00:51 | disposition home or self-care (01) ==
LOC: M ED 21:30 → EDBD 21:30 → M ED 01-09 00:51
DX: T82.838A Hemorrhage due to vascular prosthetic devices, implants and grafts, initial encounter (principal); Z79.01 Long term (current) use of anticoagulants; E11.9 Type 2 diabetes mellitus without complications; F43.12 Post-traumatic stress disorder, chronic; G47.33 Obstructive sleep apnea (adult) (pediatric); Z86.14 Personal history of Methicillin resistant Staphylococcus aureus infection; Z87.891 Personal history of nicotine dependence; Z91.19 Patient's noncompliance with other medical treatment and regimen

== ENCOUNTER → 2017-01-13 | Outpatient (REF) ==
[~2017-01-13] MED LIST changes: +ACET1TAB17 PO; +AMOX875T2 PO; +ASPI81TAEC PO; +BENZ-52 PO; +BUPR150T3 PO; +CARV12.5 PO; +COLA100C5 PO; +COUM1TAB17 PO; +ELIQ5TAB PO; +FAMO20TA PO; +FEBU40TA PO; +FURO20TA2 PO; +HEPA100PFS INJ; +HYDR25TA PO; +LOVE0.8I SC; +MILKSUS PO; +MIRA33504 PO; +NORM0.9I9 IV; +NOVOINJ3 SC; +OXYC60TA PO; +SANT250O8 TOP; +SENN8.6C PO; +SENN8.6T7 PO; +TUBE5INJ ID; +VITA100066 PO; +VITMTA PO
== END ==
DX: M86.9 Osteomyelitis, unspecified (principal)

== ENCOUNTER → 2017-01-14 | Outpatient (REF) ==
[2017-01-14 10:16] LABS: MEAN CORPUSCULAR HEMOGLOBIN 28.5 pg (27.0-33.0); MEAN CORPUSCULAR HGB CONC 32.4 g/dl (32.0-36.5)
[2017-01-14 10:43] LABS: ANION GAP 9 MEQ/L (8-16); BLOOD UREA NITROGEN 13 MG/DL (7-18); CALCIUM LEVEL 9.6 MG/DL (8.5-10.1); CARBON DIOXIDE LEVEL 29 MEQ/L (21-32); CHLORIDE LEVEL 106 MEQ/L (98-107); CREATININE FOR GFR 1.04 MG/DL (0.70-1.30); GLOMERULAR FILTRATION RATE > 60.0 (>56); GLUCOSE, FASTING 138 MG/DL (70-105); MAGNESIUM LEVEL 1.3 MG/DL (1.8-2.4); POTASSIUM SERUM 4.2 MEQ/L (3.5-5.1); SODIUM LEVEL 144 MEQ/L (136-145)
== END ==
DX: E83.42 Hypomagnesemia (principal); M65.872 Other synovitis and tenosynovitis, left ankle and foot

== ENCOUNTER 2017-01-18 20:32 | Emergency (ER) | payer MEDICARE, MEDICAID ==
[~2017-01-18] VITALS: Ht 195.6 cm; Wt 137.9 kg
[~2017-01-18 20:32] MED LIST changes: -AMOX875T2 PO; -ASPI81TAEC PO; -BENZ-52 PO; -BUPR150T3 PO; -CARV12.5 PO; -COUM1TAB17 PO; -FAMO20TA PO; -FEBU40TA PO; -FURO20TA2 PO; -HYDR25TA PO; -LOVE0.8I SC; -MIRA33504 PO; -OXYC60TA PO; -SANT250O8 TOP; -SENN8.6T7 PO; -VITA100066 PO; -VITMTA PO
[2017-01-18 21:53] LABS: BASO # 0.1 K/mm3 (0.0-0.2); BASO % 1.1 % (0.0-1.0); EOS # 0.7 K/mm3 (0.0-0.50); EOS % 7.5 % (0.0-3.0); LARGE UNSTAINED CELL # 0.2 K/mm3 (0.0-0.4); LARGE UNSTAINED CELL % 2.8 % (0.0-4.0); LYMPH # 1.8 K/mm3 (1.5-4.5); LYMPH % 18.1 % (24.0-44.0); MEAN CORPUSCULAR HEMOGLOBIN 28.7 pg (27.0-33.0); MEAN CORPUSCULAR HGB CONC 32.3 g/dl (32.0-36.5); MONO # 0.4 K/mm3 (0.0-0.8); MONO % 4.8 % (0.0-5.0); NEUTROPHILS # 5.8 K/mm3 (1.8-7.7); NEUTROPHILS % 65.7 % (36.0-66.0); PLATELET COUNT, AUTOMATED 456 k/mm3 (150-450); RED CELL DISTRIBUTION WIDTH 17.6 % (11.5-14.5); WHITE BLOOD COUNT 8.8 K/mm3 (4.0-10.0)
[2017-01-18 21:59] LABS: ALBUMIN 3.4 GM/DL (3.2-5.2); ALBUMIN/GLOBULIN RATIO 1.31 (1.00-1.93); ALKALINE PHOSPHATASE 89 U/L (45-117); ALT/SGPT 18 U/L (12-78); ANION GAP 7 MEQ/L (8-16); AST/SGOT 11 U/L (15-37); BILIRUBIN,TOTAL 0.2 MG/DL (0.2-1.0); BLOOD UREA NITROGEN 12 MG/DL (7-18); CALCIUM LEVEL 9.6 MG/DL (8.5-10.1); CARBON DIOXIDE LEVEL 26 MEQ/L (21-32); CHLORIDE LEVEL 107 MEQ/L (98-107); CREATININE FOR GFR 1.09 MG/DL (0.70-1.30); GLOMERULAR FILTRATION RATE > 60.0 (>56); GLUCOSE, FASTING 205 MG/DL (70-105); MAGNESIUM LEVEL 1.2 MG/DL (1.8-2.4); POTASSIUM SERUM 4.5 MEQ/L (3.5-5.1); SODIUM LEVEL 140 MEQ/L (136-145)
[2017-01-18 22:12] LABS: INR 1.05
--- NOTE | 2017-01-18 22:40 | REPUSA ---
Clinical history: Pain, swelling. Findings: The left common femoral, superficial femoral, popliteal, and other deep venous structures c ompress normally and demonstrate normal color Doppler flow. Normal venous waveforms with augmentation are seen. There is an and large left inguinal lymph node measuring 3.2 x 2.8 x 1.3 cm. Impression: No evidence of deep vein thrombosis in the left femoral popliteal venous system. Left inguinal lympha denopathy.
[2017-01-18] MEDS ORDERED: MAG SULF 1GM/100ML (MAG RUN) 1 GM in APPROPRIATE DILUENT 1 EA IV ONE (23:00)
--- NOTE | 2017-01-18 23:00 | REPUSA ---
Clinical statement: Pain, swelling. Findings: Venous Doppler imaging of the right upper extremity was performed. The internal jugular vei n compresses normally and demonstrates normal color Doppler flow. Normal venous wave forms are seen w ithin the subclavian vein. There is complete occlusion of the right axillary vein, with echogenic mat erial noted. Echogenic material occludes the majority of the right subclavian vein, but minimal venou s blood flow is appreciated. The right basilic, brachial, and cephalic veins are unremarkable. Impression: Occlusive deep vein thrombosis in the right axillary vein. Partially occluded right subcl thee vein as well.
[2017-01-18] MEDS ORDERED: oxyCODONE 5MG TAB PO ONE (23:30)
[2017-01-18] MEDS ORDERED: ENOXAPARIN 150 MG/ML SYR (J1650) SC ONE (23:45)
[2017-01-18] MEDS ORDERED: COUM1TAB17 PO (23:53)
[2017-01-18] MEDS ORDERED: LOVE0.8I SC (23:53)
[2017-01-19] MEDS ORDERED: MAG SULF 1GM/100ML (MAG RUN) 1 GM in APPROPRIATE DILUENT 1 EA IV ONE ×2
[2017-01-19 00:09] VITALS: BP 193/103
[2017-01-20] MEDS ORDERED: AMLO5TAB2 PO (22:50)
[2017-01-20] MEDS ORDERED: LOVE0.8I SC (22:50)
[2017-01-20] MEDS ORDERED: ASPI81TAEC PO (22:50)
[2017-01-20] MEDS ORDERED: OXYC60TA PO (22:50)
[2017-01-20] MEDS ORDERED: VITMTA PO (22:50)
[2017-01-20] MEDS ORDERED: VANC1VLAD INJ (22:50)
[2017-01-20] MEDS ORDERED: NOVOINJ3 SC (22:50)
[2017-01-20] MEDS ORDERED: BUPR150T3 PO (22:50)
[2017-01-20] MEDS ORDERED: SENN8.6T7 PO (22:50)
[2017-01-20] MEDS ORDERED: VITA100066 PO (22:50)
[2017-01-20] MEDS ORDERED: MIRA33504 PO (22:56)
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
== END 2017-01-19 01:00 | disposition home or self-care (01) ==
LOC: M ED 20:32 → EDBD 20:32 → M ED 01-19 01:00
DX: M79.89 Other specified soft tissue disorders (principal)

== ENCOUNTER 2017-01-20 20:30 | Inpatient (IN) | payer MEDICARE, MEDICAID ==
[~2017-01-20] VITALS: Ht 195.6 cm; Wt 140.5 kg
[~2017-01-20 20:30] MED LIST changes: -AMOX875T2 PO; -ASPI81TAEC PO; -BENZ-52 PO; -BUPR150T3 PO; -CARV12.5 PO; -FAMO20TA PO; -FEBU40TA PO; -FURO20TA2 PO; -HYDR25TA PO; -MIRA33504 PO; -OXYC60TA PO; -SANT250O8 TOP; -SENN8.6T7 PO; -VITA100066 PO; -VITMTA PO
[2017-01-20] MEDS: ATORVASTATIN 10 MG TAB PO SCH (21:00)
[2017-01-20] MEDS: PRIMIDONE 50 MG TAB PO SCH (21:00)
[2017-01-20] MEDS: AMITRIPTYLINE 25 MG TAB PO SCH (21:00)
[2017-01-20] MEDS: amLODIPine 5 MG TAB PO SCH (21:00)
[2017-01-20] MEDS: DOCUSATE SODIUM 100 MG CAP PO SCH (21:00)
[2017-01-20] MEDS: SENOKOT S TAB PO SCH (21:00)
[2017-01-20] MEDS: HumaLOG INSULIN (NovoLOG) PER UNIT SC SCH (21:00)
[2017-01-20] MEDS: CARVedilol 3.125 MG TAB PO SCH (21:00)
[2017-01-20] MEDS ORDERED: HEPARIN DRIP 25,000 UNITS in APPROPRIATE DILUENT 1 EA IV SCH (21:02)
[2017-01-20] MEDS ORDERED: HEPARIN SOD (PORCINE) 5000 UNITS/ML VIAL IV ONE (21:15)
[2017-01-20 22:01] LABS: BASO # 0.1 K/mm3 (0.0-0.2); BASO % 0.9 % (0.0-1.0); EOS # 0.6 K/mm3 (0.0-0.50); EOS % 7.7 % (0.0-3.0); LARGE UNSTAINED CELL # 0.3 K/mm3 (0.0-0.4); LARGE UNSTAINED CELL % 3.3 % (0.0-4.0); LYMPH # 1.8 K/mm3 (1.5-4.5); LYMPH % 20.2 % (24.0-44.0); MEAN CORPUSCULAR HEMOGLOBIN 28.9 pg (27.0-33.0); MEAN CORPUSCULAR HGB CONC 32.6 g/dl (32.0-36.5); MEAN CORPUSCULAR VOLUME 88.5 fl (80.0-96.0); MONO # 0.3 K/mm3 (0.0-0.8); MONO % 4.3 % (0.0-5.0); NEUTROPHILS # 4.9 K/mm3 (1.8-7.7); NEUTROPHILS % 63.6 % (36.0-66.0); PLATELET COUNT, AUTOMATED 480 k/mm3 (150-450); RED CELL DISTRIBUTION WIDTH 17.3 % (11.5-14.5); WHITE BLOOD COUNT 7.8 K/mm3 (4.0-10.0)
[2017-01-20 22:07] LABS: INR 1.1
[2017-01-20 22:26] LABS: ANION GAP 9 MEQ/L (8-16); BLOOD UREA NITROGEN 12 MG/DL (7-18); CALCIUM LEVEL 8.9 MG/DL (8.5-10.1); CARBON DIOXIDE LEVEL 27 MEQ/L (21-32); CHLORIDE LEVEL 106 MEQ/L (98-107); CREATININE FOR GFR 1.28 MG/DL (0.70-1.30); GLOMERULAR FILTRATION RATE > 60.0 (>56); GLUCOSE, FASTING 169 MG/DL (70-105); POTASSIUM SERUM 4.2 MEQ/L (3.5-5.1); SODIUM LEVEL 142 MEQ/L (136-145)
[2017-01-20] MEDS: MORPHINE 4 MG/ML 1ML SYRINGE IV PRN ×2 (22:26→23:10)
--- NOTE | 2017-01-20 22:37 | REP ---
Clinical: Chest pain . Comparison: 12/19/2016 . Technique: PA and lateral. Findings: The mediastinum and cardiac silhouette are normal. The lung alonso are without acute consolidation, effusion, or pneumothorax. Mild bronchitis cannot be excluded. The skeletal structures are intact and normal. Impression: 1. Cannot exclude mild bronchitis. No focal consolidation. Signed by Remy Stanton MD 01/20/2017 10:29 P
[2017-01-20] MEDS ORDERED: SENN8.6T7 PO (22:50)
[2017-01-20] MEDS ORDERED: VITMTA PO (22:50)
[2017-01-20] MEDS ORDERED: LOVE0.8I SC (22:50)
[2017-01-20] MEDS ORDERED: OXYC60TA PO (22:50)
[2017-01-20] MEDS ORDERED: NOVOINJ3 SC (22:50)
[2017-01-20] MEDS ORDERED: VANC1VLAD INJ (22:50)
[2017-01-20] MEDS ORDERED: VITA100066 PO (22:50)
[2017-01-20] MEDS ORDERED: ASPI81TAEC PO (22:50)
[2017-01-20] MEDS ORDERED: BUPR150T3 PO (22:50)
[2017-01-20] MEDS ORDERED: AMLO5TAB2 PO (22:50)
[2017-01-20] MEDS ORDERED: MIRA33504 PO (22:56)
[2017-01-21] MEDS ORDERED: MOM 30ML SUSPENSION UDC PO PRN
[2017-01-21] MEDS ORDERED: GLUCOSE 4 GM CHEW TABLET PO PRN
[2017-01-21] MEDS ORDERED: GLUCAGON FOR INJ 1 MG VIAL (J1610) SC PRN
[2017-01-21] MEDS ORDERED: DEXTROSE 50% 50 ML SYRINGE IV PRN
[2017-01-21] MEDS ORDERED: ONDANSETRON 4 MG TAB (S0181) PO PRN
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
[2017-01-21] MEDS ORDERED: ASPIRIN 325 MG TAB PO ONE (00:15)
--- NOTE | 2017-01-21 00:26 | PHACANCOPD ---
PHARMACY VANCOMYCIN DOSING Pt Demographics Demographics Patient Age:56 , Weight:143.100 , Gender: male Adjusted Body Weight Date: 01/21/17, Adjusted Body Weight: [105] Kg Events Past 24 Hours Events Past 24 Hours: NO: Dialysis, Diuretic Therapy, Change in CrCl, Fever, Elevation in WBC, Pending Diagnostics, Pending Procedures, Other Vancomycin Vancomycin Target Ranges: 15-20 mcg/ml Vancomycin Load Y/N: Yes Load Dose Date Time Vancomycin Load Dose: 2000MG Date: 01-21 Time: 0200 Vancomycin Dose Date: 01/21/17. Current Vancomycin Dose: [1000MG Q8H] Intermittent Dosing?: No Labs Labs Item Value Date Time White Blood Count 7.8 K/mm3 01/20/172143 Creatinine 1.28 MG/DL 01/20/172143 Blood Urea Nitrogen 12 MG/DL 01/20/172143 Vital Signs Label Value Date Time Patient Temperature 98.9 degrees F 01/20/172039 Temperature Source Temporal 01/20/172039 Creatinine Clearance Date:01/21/17. Creatinine Clearance: [70]. Pending Labs Trough 08- @1700 Assessment and Plan Maintaining Current Dose?: Yes Reason for dose change: No Dose Change Pharmacist Note Pharmacist Note Date: 01/21/17. Pharmacist note:Dosed at 1000mg q8h with a trough ordered for 08- 30 @1700. Will continue to monitor and make adjustments as needed. [facility] Jan 21, 2017 00:26
[2017-01-21] MEDS ORDERED: VANCOMYCIN HCL 1,000 MG, VIAL MATE ADAPTER 1 EACH in D5W 250 ML IV ONE (00:30)
[2017-01-21] MEDS: oxyCODONE 5MG TAB PO PRN ×3 (01:25→12:49)
[2017-01-21] MEDS: VANCOMYCIN HCL 1,000 MG, VIAL MATE ADAPTER 1 EACH in D5W 250 ML IV SCH ×3 (01:25→17:49)
[2017-01-21 04:01] LABS: BASO # 0.1 K/mm3 (0.0-0.2); BASO % 1.1 % (0.0-1.0); EOS # 0.5 K/mm3 (0.0-0.50); EOS % 7.2 % (0.0-3.0); LARGE UNSTAINED CELL # 0.2 K/mm3 (0.0-0.4); LYMPH # 2.1 K/mm3 (1.5-4.5); LYMPH % 26.1 % (24.0-44.0); MEAN CORPUSCULAR HEMOGLOBIN 28.2 pg (27.0-33.0); MEAN CORPUSCULAR HGB CONC 31.9 g/dl (32.0-36.5); MEAN CORPUSCULAR VOLUME 88.5 fl (80.0-96.0); MONO # 0.3 K/mm3 (0.0-0.8); MONO % 4.4 % (0.0-5.0); NEUTROPHILS # 4.2 K/mm3 (1.8-7.7); NEUTROPHILS % 58.2 % (36.0-66.0); PLATELET COUNT, AUTOMATED 416 k/mm3 (150-450); RED CELL DISTRIBUTION WIDTH 17.3 % (11.5-14.5); WHITE BLOOD COUNT 7.1 K/mm3 (4.0-10.0)
[2017-01-21 04:34] LABS: ALT/SGPT 15 U/L (12-78); ANION GAP 6 MEQ/L (8-16); AST/SGOT 9 U/L (15-37); BLOOD UREA NITROGEN 14 MG/DL (7-18); CALCIUM LEVEL 9.1 MG/DL (8.5-10.1); CARBON DIOXIDE LEVEL 30 MEQ/L (21-32); CHLORIDE LEVEL 109 MEQ/L (98-107); CREATININE FOR GFR 1.18 MG/DL (0.70-1.30); GLOMERULAR FILTRATION RATE > 60.0 (>56); GLUCOSE, FASTING 185 MG/DL (70-105); POTASSIUM SERUM 4.3 MEQ/L (3.5-5.1); SODIUM LEVEL 145 MEQ/L (136-145)
[2017-01-21 04:35] LABS: ALBUMIN 3.1 GM/DL (3.2-5.2); ALBUMIN/GLOBULIN RATIO 1.15 (1.00-1.93); ALKALINE PHOSPHATASE 79 U/L (45-117); BILIRUBIN,TOTAL 0.2 MG/DL (0.2-1.0); MAGNESIUM LEVEL 1.4 MG/DL (1.8-2.4); TOTAL PROTEIN 5.8 GM/DL (6.4-8.2)
[2017-01-21] MEDS ORDERED: HEPARIN SOD (PORCINE) 5000 UNITS/ML VIAL IV ONE (06:00)
[2017-01-21] MEDS: HEPARIN DRIP 25,000 UNITS in APPROPRIATE DILUENT 1 EA IV SCH ×4 (06:00→21:38)
[2017-01-21 08:00] VITALS: BP 184/93
[2017-01-21] MEDS: ALLOPURINOL 300 MG TAB PO SCH (08:28)
[2017-01-21] MEDS: MULTIVITAMINS/MINERALS THERAP 1 TAB PO SCH (08:28)
[2017-01-21] MEDS: CARVedilol 3.125 MG TAB PO SCH ×2 (08:28→21:09)
[2017-01-21] MEDS: PANTOPRAZOLE 40MG TAB (PROTONIX) PO SCH (08:28)
[2017-01-21] MEDS: amLODIPine 5 MG TAB PO SCH ×2 (08:29→21:10)
[2017-01-21] MEDS: MAG SULF 1GM/100ML (MAG RUN) 1 GM in APPROPRIATE DILUENT 1 EA IV SCH ×2 (08:29→09:07)
[2017-01-21] MEDS: SENOKOT S TAB PO SCH ×2 (08:29→21:09)
[2017-01-21] MEDS: DOCUSATE SODIUM 100 MG CAP PO SCH ×2 (08:47→21:09)
[2017-01-21] MEDS: MIRALAX *UNIT DOSE* 17GM PACKET PO SCH (08:47)
[2017-01-21] MEDS: VITAMIN D 1,000 INTERNATIONAL UNITS TABLET PO SCH (08:56)
[2017-01-21] MEDS: MAGNESIUM OXIDE 400 MG TAB (MAG-OX) PO SCH ×2 (08:56→21:10)
[2017-01-21] MEDS: oxyCODONE 20 MG CR TAB PO SCH ×2 (08:57→21:08)
[2017-01-21] MEDS ORDERED: ENALAPRIL MALEATE 10 MG TAB PO SCH (09:00)
[2017-01-21] MEDS ORDERED: ASPIRIN 81 MG ENTERIC TAB PO SCH (09:00)
[2017-01-21] MEDS: buPROPion **XL** TABLET 150MG (WELLBUTRIN XL) PO SCH (09:06)
[2017-01-21] MEDS: HumaLOG INSULIN (NovoLOG) PER UNIT SC SCH ×4 (09:07→21:00)
--- NOTE | 2017-01-21 11:26 | REP ---
Duplex extremity venous ultrasound: Left lower extremity. History: Question DVT in the left leg. Findings: The deep veins are anechoic and fully compressible from the groin to the popliteal fossa in the left lower extremity. Color flow imaging is homogeneous. Spectral Doppler interrogation demonstrates intact respiratory variation in flow and normal manual augmentation of flow. There is no evidence of deep vein thrombosis. Impression: Negative left lower extremity duplex venous ultrasound. No evidence of deep vein thrombosis. Signed by Wolf Chris MD 01/21/2017 11:19 A
[2017-01-21 12:00] VITALS: BP 169/89
[2017-01-21] MEDS: PRIMIDONE 50 MG TAB PO SCH ×2 (12:47→21:08)
[2017-01-21 16:00] VITALS: BP 189/73
[2017-01-21] MEDS ORDERED: HEPARIN SOD (PORCINE) 5000 UNITS/ML VIAL IV PRN (16:30)
--- NOTE | 2017-01-21 17:45 | PHACANCOPD ---
PHARMACY VANCOMYCIN DOSING Pt Demographics Demographics Patient Age:56 , Weight:142.200 , Gender: male Adjusted Body Weight Date: 01/21/17, Adjusted Body Weight: [105] Kg Vancomycin Vancomycin Target Ranges: 15-20 mcg/ml Vancomycin Load Y/N: Yes Load Dose Date Time Vancomycin Load Dose: 2000MG Date: 01-21 Time: 0200 Vancomycin Dose Date: 01/21/17. Current Vancomycin Dose: [1000MG Q8H] Intermittent Dosing?: No Labs Micro Microbiology 01/21/17 MRSA Screen, Received Pending Creatinine Clearance Date:01/21/17. Creatinine Clearance: [70]. Pending Labs Trough 08- @1700 Assessment and Plan Maintaining Current Dose?: Yes Reason for dose change: No Dose Change Pharmacist Note Pharmacist Note 01/21/17: Trough today resulted at 21.1mcg/ml, however, vanco dose prior to trough level was administered 3 hours overdue; thus resulting in an inaccurate trough level. The patient's scr has improved from 1.28 yesterday to 1.18 today. I will reschedule a follow-up trough to be drawn tomorrow, 01/22/17 @0900. We will continue to monitor and adjust dosing if needed. Date: 01/21/17. Pharmacist note:Dosed at 1000mg q8h with a trough ordered for 08 @1700. Will continue to monitor and make adjustments as needed. ELLEN [facility] Jan 21, 2017 17:45
--- NOTE | 2017-01-21 18:13 | IPNPDOC ---
Date Seen The patient was seen on 01/21/17. Progress Note Hospitalist Progress Note Subjective: Patient denies any chest pain, states that it has entirely resolved Objective: Physical Exam: Vitals: Vital Sign - Last 24 Hours 01/20/17 01/20/17 01/20/17 01/20/17 20:40 20:45 21:00 21:15 Temp 98.9 Pulse 74 72 68 70 Resp 18 B/P (MAP) 177/95 (122) Pulse Ox 92 97 99 98 O2 Flow Rate 2.0 01/20/17 01/20/17 01/20/17 01/20/17 21:30 21:45 22:00 22:15 Pulse 76 72 72 78 Pulse Ox 98 99 99 97 01/20/17 01/20/17 01/20/17 01/20/17 22:26 22:30 22:30 22:45 Pulse 72 76 Resp 16 B/P (MAP) Pulse Ox 92 97 98 01/20/17 01/20/17 01/20/17 01/20/17 23:00 23:10 23:15 23:30 Pulse 72 74 76 Resp 16 Pulse Ox 98 96 98 97 01/20/17 01/21/17 01/21/17 01/21/17 23:45 00:00 00:15 01:25 Pulse 74 74 82 Resp 16 Pulse Ox 97 97 97 98 01/21/17 01/21/17 01/21/17 01/21/17 02:00 03:57 04:45 05:14 Temp 98.5 Pulse 67 64 70 Resp 16 16 B/P (MAP) 152/98 (116) 144/88 (106) Pulse Ox 97 97 99 98 O2 Delivery Room Air O2 Flow Rate 2.0 01/21/17 01/21/17 01/21/17 01/21/17 06:00 07:22 07:23 07:26 Temp 98.9 Pulse 81 64 Resp 18 16 18 B/P (MAP) 159/95 (116) 167/88 (114) Pulse Ox 99 95 98 99 O2 Flow Rate 2.0 2.0 01/21/17 01/21/17 01/21/17 01/21/17 07:36 08:00 08:28 08:29 Temp 97.5 97.5 Pulse 66 70 68 68 Resp 18 16 B/P (MAP) 179/97 (124) 184/93 (123) 184/93 Pulse Ox 99 100 O2 Delivery Nasal Cannula Nasal Cannula O2 Flow Rate 2.0 2.0 01/21/17 01/21/17 01/21/17 01/21/17 08:30 08:57 12:00 12:00 Temp 97.8 Pulse 72 Resp 16 16 20 B/P (MAP) 169/89 (115) Pulse Ox 95 95 96 O2 Delivery Nasal Cannula Nasal Cannula Nasal Cannula Nasal Cannula O2 Flow Rate 2.0 2.0 2.0 2.0 01/21/17 01/21/17 01/21/17 01/21/17 12:48 12:49 13:19 16:00 Temp 97.7 Pulse 71 Resp 16 16 20 B/P (MAP) 169/89 189/73 (111) Pulse Ox 97 O2 Delivery Nasal Cannula Nasal Cannula O2 Flow Rate 2.0 2.0 01/21/17 16:00 O2 Delivery Nasal Cannula O2 Flow Rate 2.0 General: Awake, Alert, no acute distress HEENT: Normocephalic, atraumatic, extraocular movements intact CV: Regular rate and rhythm Lungs: Clear to auscultation bilaterally Abd: Soft, nontender, nondistended Extremities: Left foot is wrapped in Omar bandage Neuro: Alert and oriented 3, normal speech Psych: Normal mood and affect Labs and Imaging: Laboratory Tests 01/20/17 21:44 Red Blood Count 4.21 L, Mean Corpuscular Volume 88.5, Mean Corpuscular Hemoglobin 28.9, Mean Corpuscular Hemoglobin Concent 32.6, Red Cell Distribution Width 17.3 H, Neutrophils (%) (Auto) 63.6, Lymphocytes (%) (Auto) 20.2 L, Monocytes (%) (Auto) 4.3, Eosinophils (%) (Auto) 7.7 H, Basophils (%) ( Auto) 0.9, Neutrophils # (Auto) 4.9, Lymphocytes # (Auto) 1.8, Monocytes # (Auto ) 0.3, Eosinophils # (Auto) 0.6 H, Basophils # (Auto) 0.1, Calcium Level 8.9, Total Creatine Kinase 46 01/21/17 03:54 Red Blood Count 4.24 L, Mean Corpuscular Volume 88.5, Mean Corpuscular Hemoglobin 28.2, Mean Corpuscular Hemoglobin Concent 31.9 L, Red Cell Distribution Width 17.3 H, Neutrophils (%) (Auto) 58.2, Lymphocytes (%) (Auto) 26.1, Monocytes (%) (Auto) 4.4, Eosinophils (%) (Auto) 7.2 H, Basophils (%) ( Auto) 1.1 H, Neutrophils # (Auto) 4.2, Lymphocytes # (Auto) 2.1, Monocytes # ( Auto) 0.3, Eosinophils # (Auto) 0.5, Basophils # (Auto) 0.1, Calcium Level 9.1, Aspartate Amino Transf (AST/SGOT) 9 L, Alanine Aminotransferase (ALT/SGPT) 15, Alkaline Phosphatase 79, Total Bilirubin 0.2, Total Protein 5.8 L, Albumin 3.1 L Assessment and Plan: 56-year-old male with diabetes mellitus type 2, hypertension, hyperlipidemia, depression, anxiety, gout, peripheral neuropathy, who is currently residing at [facility] while he finishes 6 weeks of IV antibiotics for osteomyelitis of the left calcaneus who presented to the emergency department with chest pain relieved with nitroglycerin. Since discharge to [facility], the patient experienced a right upper extremity DVT, secondary to his PICC line. Even after the PICC line was moved to the left arm, he was noted to have a second DVT in that arm while on oral anticoagulation, so he was transitioned to Lovenox. 1. Chest pain: The patient's cardiac markers have been negative 3. EKG is not indicative of acute infarct or ischemia. The patient will continue to be monitored on telemetry, and he will need to follow-up with the product development carpenter for stress testing outpatient. Continue daily aspirin. 2. Right upper extremity DVTs: Prior to the ER visit for chest pain, there were already plans for Dr. Go to complete likely thrombo-lysis. We have transitioned the patient from treatment dose Lovenox to heparin drip, and Dr. Go will be evaluating the patient. 3. Recent osteomyelitis of the left calcaneus: Continue IV vancomycin. Continue dressing changes. 4. Diabetes mellitus type 2: Currently holding home glimepiride. Sliding scale insulin while in-house. 5. Hypertension: Continue Norvasc, Coreg, OMAR inhibitor. 6. Hyperlipidemia: Continue home statin. 7. Depression and anxiety: Continue home Elavil, Wellbutrin. 8. Gout: Not currently active. Continue home allopurinol. 9. Hypomagnesemia: Replacing IV. On recent admission, patient required multiple IV replacement. Restart scheduled oral Mag-Ox. DVT prophylaxis: Heparin drip Dispo: pending thrombolysis by Dr. Go. VS, I&O, 24H, Fishbone Vital Signs/I&O Vital Signs Date Time Temp Pulse Resp B/P (MAP) Pulse Ox O2 Delivery O2 Flow Rate FiO2 01/21/17 16:00 Nasal Cannula 2.0 01/21/17 16:00 97.7 71 20 189/73 (111) 97 Laboratory Data 24H LABS Laboratory Tests 2 01/20/17 21:44: White Blood Count 7.8, Red Blood Count 4.21L, Hemoglobin 12.2L, Hematocrit 37.2L , Mean Corpuscular Volume 88.5, Mean Corpuscular Hemoglobin 28.9, Mean Corpuscular Hemoglobin Concent 32.6, Red Cell Distribution Width 17.3H, Platelet Count 480H, Neutrophils (%) (Auto) 63.6, Lymphocytes (%) (Auto) 20.2L, Monocytes (%) (Auto) 4.3, Eosinophils (%) (Auto) 7.7H, Basophils (%) (Auto) 0.9 , Neutrophils # (Auto) 4.9, Lymphocytes # (Auto) 1.8, Monocytes # (Auto) 0.3, Eosinophils # (Auto) 0.6H, Basophils # (Auto) 0.1, Large Unclassified Cells % 3.3, Large Unclassified Cells # 0.3, Prothrombin Time 14.4, Prothromb Time International Ratio 1.10, Activated Partial Thromboplast Time 38.3H, Anion Gap 9 , Glomerular Filtration Rate > 60.0, Blood Urea Nitrogen 12, Creatinine 1.28, Sodium Level 142, Potassium Level 4.2, Chloride Level 106, Carbon Dioxide Level 27, Calcium Level 8.9, Total Creatine Kinase 46, Creatine Kinase MB 1.0, Creatine Kinase MB Relative Index 2.17, Troponin I < 0.02 01/21/17 03:54: White Blood Count 7.1, Red Blood Count 4.24L, Hemoglobin 12.0L, Hematocrit 37.5L , Mean Corpuscular Volume 88.5, Mean Corpuscular Hemoglobin 28.2, Mean Corpuscular Hemoglobin Concent 31.9L, Red Cell Distribution Width 17.3H, Platelet Count 416, Neutrophils (%) (Auto) 58.2, Lymphocytes (%) (Auto) 26.1, Monocytes (%) (Auto) 4.4, Eosinophils (%) (Auto) 7.2H, Basophils (%) (Auto) 1.1H , Neutrophils # (Auto) 4.2, Lymphocytes # (Auto) 2.1, Monocytes # (Auto) 0.3, Eosinophils # (Auto) 0.5, Basophils # (Auto) 0.1, Large Unclassified Cells % 3.0 , Large Unclassified Cells # 0.2, Anion Gap 6L, Glomerular Filtration Rate > 60.0, Blood Urea Nitrogen 14, Creatinine 1.18, Sodium Level 145, Potassium Level 4.3, Chloride Level 109H, Carbon Dioxide Level 30, Calcium Level 9.1, Total Creatine Kinase 40, Creatine Kinase MB 1.0, Creatine Kinase MB Relative Index 2.50, Troponin I < 0.02, Aspartate Amino Transf (AST/SGOT) 9L, Alanine Aminotransferase (ALT/SGPT) 15, Alkaline Phosphatase 79, Total Bilirubin 0.2, Total Protein 5.8L, Albumin 3.1L, Magnesium Level 1.4L, Albumin/Globulin Ratio 1.15 01/21/17 09:45: Total Creatine Kinase 31L, Creatine Kinase MB 1.0, Creatine Kinase MB Relative Index 3.22, Troponin I < 0.02 01/21/17 12:52: Bedside Glucose (Misc Panel) 158H 01/21/17 15:11: Activated Partial Thromboplast Time 37.1 01/21/17 16:44: Vancomycin Level Trough 21.1H 01/21/17 16:45: Bedside Glucose (Misc Panel) 190H CBC/BMP Laboratory Tests 01/20/17 21:44 Red Blood Count 4.21 L, Mean Corpuscular Volume 88.5, Mean Corpuscular Hemoglobin 28.9, Mean Corpuscular Hemoglobin Concent 32.6, Red Cell Distribution Width 17.3 H, Neutrophils (%) (Auto) 63.6, Lymphocytes (%) (Auto) 20.2 L, Monocytes (%) (Auto) 4.3, Eosinophils (%) (Auto) 7.7 H, Basophils (%) ( Auto) 0.9, Neutrophils # (Auto) 4.9, Lymphocytes # (Auto) 1.8, Monocytes # (Auto ) 0.3, Eosinophils # (Auto) 0.6 H, Basophils # (Auto) 0.1, Calcium Level 8.9, Total Creatine Kinase 46 01/21/17 03:54 Red Blood Count 4.24 L, Mean Corpuscular Volume 88.5, Mean Corpuscular Hemoglobin 28.2, Mean Corpuscular Hemoglobin Concent 31.9 L, Red Cell Distribution Width 17.3 H, Neutrophils (%) (Auto) 58.2, Lymphocytes (%) (Auto) 26.1, Monocytes (%) (Auto) 4.4, Eosinophils (%) (Auto) 7.2 H, Basophils (%) ( Auto) 1.1 H, Neutrophils # (Auto) 4.2, Lymphocytes # (Auto) 2.1, Monocytes # ( Auto) 0.3, Eosinophils # (Auto) 0.5, Basophils # (Auto) 0.1, Calcium Level 9.1, Aspartate Amino Transf (AST/SGOT) 9 L, Alanine Aminotransferase (ALT/SGPT) 15, Alkaline Phosphatase 79, Total Bilirubin 0.2, Total Protein 5.8 L, Albumin 3.1 L Microbiology Microbiology 01/21/17 MRSA Screen, Received Pending DARLIN BURCIAGA Jan 21, 2017 18:13
[2017-01-21 20:00] VITALS: BP 188/86
[2017-01-21] MEDS: ATORVASTATIN 10 MG TAB PO SCH (21:08)
[2017-01-21] MEDS: AMITRIPTYLINE 25 MG TAB PO SCH (21:10)
--- NOTE | 2017-01-21 22:28 | ECHO ---
DATE OF PROCEDURE: 01/21/2017 REFERRING PHYSICIAN: Thom Meyer MD INDICATION: Chest pain. HEIGHT: 185 cm WEIGHT: 143 kg 2D MEASUREMENTS: Ventricular septum: 1.19 cm Posterior wall: 1.19 cm Left ventricle diastole: 5.5 cm Left atrium: 4.3 cm Aortic root: 3.4 cm LVOT: 2.9 cm Inferior vena cava: 2.7 cm DOPPLER MEASUREMENTS: Aortic valve velocity: 157 cm/s LVOT velocity: 120 cm/s LVOT VTI: 24.0 cm Mitral E velocity: 85.9 cm/s Mitral A velocity: 51.3 cm/s Mitral deceleration time: 141 ms Pulmonary artery systolic pressure 60 mmHg by pulmonary acceleration time method. MITRAL ANNULAR TISSUE DOPPLER: E prime septal: 8.5 cm/s E prime lateral: 18.8 cm/s DESCRIPTION: Rhythm was sinus. This is a moderately technically difficult echocardiogram. This is a 2D, M-mode, color flow Doppler and pulse wave Doppler examination that included mitral annular tissue Doppler. CONCLUSIONS: 1. Normal left ventricle internal dimensions and wall thickness. Normal regional wall motion and wall thickening. Normal LV systolic function. Left ventricular ejection fraction (LVEF) 65% by visual estimate. Normal LV diastolic function. 2. No pericardial effusion. 3. Mild left atrial dilatation. 4. Moderate aortic valve sclerosis of a three-cuspid aortic valve. No aortic stenosis or aortic regurgitation. 5. Inferior vena cava plethora.
--- NOTE | 2017-01-21 23:19 | ECGEPIP ---
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
[2017-01-21] MEDS: ACETAMINOPHEN TAB 650MG DOSE (2X325MG) PO PRN (23:49)
[2017-01-22] VITALS (18 sets, daily range): BP systolic 139–221; BP diastolic 63–112
[2017-01-22] MEDS: VANCOMYCIN HCL 1,000 MG, VIAL MATE ADAPTER 1 EACH in D5W 250 ML IV SCH (02:29)
[2017-01-22] MEDS: oxyCODONE 5MG TAB PO PRN ×2 (02:43→14:45)
[2017-01-22 03:17] LABS: BASO # 0.1 K/mm3 (0.0-0.2); BASO % 1.2 % (0.0-1.0); EOS # 0.6 K/mm3 (0.0-0.50); EOS % 7.6 % (0.0-3.0); LARGE UNSTAINED CELL # 0.3 K/mm3 (0.0-0.4); LARGE UNSTAINED CELL % 3.4 % (0.0-4.0); LYMPH # 2.3 K/mm3 (1.5-4.5); LYMPH % 24.5 % (24.0-44.0); MEAN CORPUSCULAR HEMOGLOBIN 28.7 pg (27.0-33.0); MEAN CORPUSCULAR HGB CONC 32.4 g/dl (32.0-36.5); MEAN CORPUSCULAR VOLUME 88.6 fl (80.0-96.0); MONO # 0.3 K/mm3 (0.0-0.8); MONO % 3.8 % (0.0-5.0); NEUTROPHILS # 4.8 K/mm3 (1.8-7.7); NEUTROPHILS % 59.5 % (36.0-66.0); PLATELET COUNT, AUTOMATED 442 k/mm3 (150-450); RED CELL DISTRIBUTION WIDTH 17.3 % (11.5-14.5); WHITE BLOOD COUNT 8.1 K/mm3 (4.0-10.0)
[2017-01-22 03:24] LABS: INR 1.13
[2017-01-22 03:30] LABS: ALBUMIN 3.2 GM/DL (3.2-5.2); ALBUMIN/GLOBULIN RATIO 1.07 (1.00-1.93); ALKALINE PHOSPHATASE 81 U/L (45-117); ALT/SGPT 24 U/L (12-78); ANION GAP 7 MEQ/L (8-16); AST/SGOT 15 U/L (15-37); BILIRUBIN,TOTAL 0.3 MG/DL (0.2-1.0); BLOOD UREA NITROGEN 14 MG/DL (7-18); CALCIUM LEVEL 9.3 MG/DL (8.5-10.1); CARBON DIOXIDE LEVEL 29 MEQ/L (21-32); CHLORIDE LEVEL 105 MEQ/L (98-107); CREATININE FOR GFR 1.11 MG/DL (0.70-1.30); GLOMERULAR FILTRATION RATE > 60.0 (>56); GLUCOSE, FASTING 228 MG/DL (70-105); MAGNESIUM LEVEL 1.5 MG/DL (1.8-2.4); POTASSIUM SERUM 4.3 MEQ/L (3.5-5.1); SODIUM LEVEL 141 MEQ/L (136-145); TOTAL PROTEIN 6.2 GM/DL (6.4-8.2)
[2017-01-22] MEDS: MAG SULF 1GM/100ML (MAG RUN) 1 GM in APPROPRIATE DILUENT 1 EA IV SCH ×2 (06:57→08:24)
[2017-01-22] MEDS: HEPARIN DRIP 25,000 UNITS in APPROPRIATE DILUENT 1 EA IV SCH ×3 (08:18→20:44)
[2017-01-22] MEDS: HumaLOG INSULIN (NovoLOG) PER UNIT SC SCH ×4 (08:53→20:42)
[2017-01-22] MEDS: PRIMIDONE 50 MG TAB PO SCH ×2 (08:53→20:40)
[2017-01-22] MEDS: oxyCODONE 20 MG CR TAB PO SCH ×2 (08:54→20:42)
[2017-01-22] MEDS: MAGNESIUM OXIDE 400 MG TAB (MAG-OX) PO SCH ×2 (08:54→20:41)
[2017-01-22] MEDS: SENOKOT S TAB PO SCH ×2 (08:54→20:40)
[2017-01-22] MEDS: ENALAPRIL MALEATE 10 MG TAB PO SCH (08:55)
[2017-01-22] MEDS: amLODIPine 5 MG TAB PO SCH ×2 (08:56→20:41)
[2017-01-22] MEDS: ALLOPURINOL 300 MG TAB PO SCH (08:56)
[2017-01-22] MEDS: VITAMIN D 1,000 INTERNATIONAL UNITS TABLET PO SCH (08:56)
[2017-01-22] MEDS: DOCUSATE SODIUM 100 MG CAP PO SCH ×2 (08:57→20:41)
[2017-01-22] MEDS: buPROPion **XL** TABLET 150MG (WELLBUTRIN XL) PO SCH (08:57)
[2017-01-22] MEDS: PANTOPRAZOLE 40MG TAB (PROTONIX) PO SCH (08:57)
[2017-01-22] MEDS: CARVedilol 3.125 MG TAB PO SCH ×2 (08:57→20:42)
[2017-01-22] MEDS: MULTIVITAMINS/MINERALS THERAP 1 TAB PO SCH (08:57)
[2017-01-22] MEDS ORDERED: ASPIRIN 325 MG TAB PO SCH (09:00)
--- NOTE | 2017-01-22 09:05 | ECGEPIP ---
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
[2017-01-22] MEDS ORDERED: SODIUM CHLORIDE 0.9% INJ 10 ML SYR IV PRN (09:45)
[2017-01-22] MEDS ORDERED: ISOVUE-300 61% 50ML VIAL (Q9967) ONE (10:33)
[2017-01-22] MEDS: VANCOMYCIN HCL 750 MG, VIAL MATE ADAPTER 1 EACH in D5W 250 ML IV SCH ×2 (10:44→19:00)
[2017-01-22] MEDS: ALTEPLASE RECOMBINANT 25 MG in NS 225 ML IV SCH (13:00)
[2017-01-22] MEDS ORDERED: ALTEPLASE 2 MG/2 ML VIAL (J2997 PER 1MG) IV ONE (13:00)
[2017-01-22] MEDS ORDERED: HEPARIN SOD (PORCINE) 5000 UNITS/ML VIAL IV PRN (13:15)
[2017-01-22] MEDS: hydrALAZINE INJ 20 MG/ML VIAL IV SCH ×2 (14:34→20:00)
--- NOTE | 2017-01-22 15:19 | PHACANCOPD ---
PHARMACY VANCOMYCIN DOSING Pt Demographics Demographics Patient Age:56 , Weight:156.900 , Gender: male Adjusted Body Weight Date: 01/21/17, Adjusted Body Weight: [105] Kg Events Past 24 Hours Events Past 24 Hours: NO: Dialysis, Diuretic Therapy, Change in CrCl, Fever, Elevation in WBC, Pending Diagnostics, Pending Procedures, Other Vancomycin Vancomycin indication: SKIN/SOFT TISSUE INFECTION Vancomycin Target Ranges: 15-20 mcg/ml Vancomycin Load Y/N: Yes Load Dose Date Time Vancomycin Load Dose: 2000MG Date: 01-21 Time: 0200 Vancomycin Dose Date: 01/21/17. Current Vancomycin Dose: [1000MG Q8H] Intermittent Dosing?: No Labs Micro Microbiology 01/21/17 MRSA Screen - Final, Complete Creatinine Clearance Date:01/21/17. Creatinine Clearance: [70]. Pending Labs Trough 08- @1700 Assessment and Plan Maintaining Current Dose?: No Reason for dose change: Trough too high Pharmacist Note Pharmacist Note 01/22: Patient's trough came back at 20.6 today. He was switched to Vancomycin 750mg IV q8h for now. We will continue to monitor and make adjustments as necessary. 01/21/17: Trough today resulted at 21.1mcg/ml, however, vanco dose prior to trough level was administered 3 hours overdue; thus resulting in an inaccurate trough level. The patient's scr has improved from 1.28 yesterday to 1.18 today. I will reschedule a follow-up trough to be drawn tomorrow, 01/22/17 @0900. We will continue to monitor and adjust dosing if needed. Date: 01/21/17. Pharmacist note:Dosed at 1000mg q8h with a trough ordered for @1700. Will continue to monitor and make adjustments as needed. MELONIE FERNANDEZ PHARMACY Jan 22, 2017 15:18
[2017-01-22] MEDS: ACETAMINOPHEN TAB 650MG DOSE (2X325MG) PO PRN (15:54)
[2017-01-22] MEDS: SODIUM CHLORIDE 0.9% INJ 10 ML SYR IV SCH (18:00)
--- NOTE | 2017-01-22 20:34 | IPNPDOC ---
Date Seen The patient was seen on 01/22/17. Progress Note Hospitalist Progress Note Subjective: Patient denies any chest pain, states that it has entirely resolved Objective: Physical Exam: Vitals: Vital Sign - Last 24 Hours 01/21/17 01/21/17 01/22/17 01/22/17 21:08 21:09 00:00 00:00 Temp 97.5 Pulse 71 78 Resp 20 20 B/P (MAP) 188/86 150/85 (106) Pulse Ox 97 95 O2 Delivery Nasal Cannula Nasal Cannula Nasal Cannula O2 Flow Rate 2.0 2.0 2.0 01/22/17 01/22/17 01/22/17 01/22/17 02:40 02:43 04:00 04:30 Temp 98.1 98.2 Pulse 75 91 Resp 18 20 18 B/P (MAP) 198/81 (120) 139/85 (103) Pulse Ox 93 93 O2 Delivery Room Air Nasal Cannula Room Air O2 Flow Rate 2.0 01/22/17 01/22/17 01/22/17 01/22/17 07:45 08:30 08:54 08:55 Temp 99.3 Pulse 93 Resp 20 16 B/P (MAP) 177/87 (117) 177/87 Pulse Ox 92 O2 Delivery Room Air Room Air 01/22/17 01/22/17 01/22/17 01/22/17 08:56 08:57 13:45 13:59 Temp 99.1 Pulse 93 93 78 Resp 20 B/P (MAP) 177/87 177/87 221/112 (148) Pulse Ox 96 O2 Delivery Room Air Room Air 01/22/17 01/22/17 01/22/17 01/22/17 14:01 14:12 14:30 14:34 Pulse 77 78 84 Resp 20 20 20 B/P (MAP) 193/106 (135) 195/107 (136) 193/104 (133) 193/104 Pulse Ox 97 96 96 O2 Delivery Room Air Room Air Room Air 01/22/17 01/22/17 01/22/17 01/22/17 14:37 14:45 14:48 15:01 Pulse 89 87 85 Resp 20 20 20 20 B/P (MAP) 196/102 (133) 197/95 (129) 194/86 (122) Pulse Ox 95 95 95 O2 Delivery Room Air Room Air Room Air 01/22/17 01/22/17 01/22/17 15:15 15:31 16:00 Resp 20 B/P (MAP) 160/84 (109) O2 Delivery Room Air General: Awake, Alert, no acute distress HEENT: Normocephalic, atraumatic, extraocular movements intact CV: Regular rate and rhythm Lungs: Clear to auscultation bilaterally Abd: Soft, nontender, nondistended Extremities: Left foot is wrapped in Omar bandage Neuro: Alert and oriented 3, normal speech Psych: Normal mood and affect Labs and Imaging: Laboratory Tests 01/22/17 02:55 Red Blood Count 4.34, Mean Corpuscular Volume 88.6, Mean Corpuscular Hemoglobin 28.7, Mean Corpuscular Hemoglobin Concent 32.4, Red Cell Distribution Width 17.3 H, Neutrophils (%) (Auto) 59.5, Lymphocytes (%) (Auto) 24.5, Monocytes (%) (Auto) 3.8, Eosinophils (%) (Auto) 7.6 H, Basophils (%) (Auto) 1.2 H, Neutrophils # (Auto) 4.8, Lymphocytes # (Auto) 2.3, Monocytes # (Auto) 0.3, Eosinophils # (Auto) 0.6 H, Basophils # (Auto) 0.1, Calcium Level 9.3, Aspartate Amino Transf (AST/SGOT) 15, Alanine Aminotransferase (ALT/SGPT) 24, Alkaline Phosphatase 81, Total Bilirubin 0.3, Total Protein 6.2 L, Albumin 3.2 01/22/17 18:00 Assessment and Plan: 56-year-old male with diabetes mellitus type 2, hypertension, hyperlipidemia, depression, anxiety, gout, peripheral neuropathy, who is currently residing at [facility] while he finishes 6 weeks of IV antibiotics for osteomyelitis of the left calcaneus who presented to the emergency department with chest pain relieved with nitroglycerin. Since discharge to [facility], the patient experienced a right upper extremity DVT, secondary to his PICC line. Even after the PICC line was moved to the left arm, he was noted to have a second DVT in that arm while on oral anticoagulation, so he was transitioned to Lovenox. 1. Chest pain: The patient's cardiac markers have been negative 3. EKG is not indicative of acute infarct or ischemia. The patient will continue to be monitored on telemetry, and he will need to follow-up with the creative director for stress testing outpatient. Continue daily aspirin. Echo revealed normal EF, no wall motion abnormalities, and no diastolic dysfunction. 2. Right upper extremity DVTs: Prior to the ER visit for chest pain, there were already plans for Dr. Go to complete thrombo-lysis. We have transitioned the patient from treatment dose Lovenox to heparin drip, and Dr. Go will be doing the thrombolysis today. 3. Recent osteomyelitis of the left calcaneus: Continue IV vancomycin. Continue dressing changes. 4. Diabetes mellitus type 2: Currently holding home glimepiride. Sliding scale insulin while in-house. 5. Hypertension: Uncontrolled. Continue Norvasc, Coreg, and increase OMAR inhibitor. 6. Hyperlipidemia: Continue home statin. 7. Depression and anxiety: Continue home Elavil, Wellbutrin. 8. Gout: Not currently active. Continue home allopurinol. 9. Hypomagnesemia: Replacing IV. On recent admission, patient required multiple IV replacement. Restart scheduled oral Mag-Ox. DVT prophylaxis: Heparin drip Dispo: pending thrombolysis by Dr. Go. VS, I&O, 24H, Fishbone Vital Signs/I&O Vital Signs Date Time Temp Pulse Resp B/P (MAP) Pulse Ox O2 Delivery O2 Flow Rate FiO2 01/22/17 16:00 Room Air 01/22/17 15:31 160/84 (109) 01/22/17 15:15 20 01/22/17 15:01 85 95 01/22/17 13:59 99.1 01/22/17 04:00 2.0 I&O- Last 24 Hours up to 6 AM 01/22/17 05:59 Intake Total 1814 ml Output Total 2075 ml Balance -261 ml Laboratory Data 24H LABS Laboratory Tests 2 01/21/17 20:59: Bedside Glucose (Misc Panel) 194H 01/21/17 21:00: Activated Partial Thromboplast Time 72.3H 01/22/17 02:55: Activated Partial Thromboplast Time 71.1H, White Blood Count 8.1, Red Blood Count 4.34, Hemoglobin 12.4L, Hematocrit 38.4L, Mean Corpuscular Volume 88.6, Mean Corpuscular Hemoglobin 28.7, Mean Corpuscular Hemoglobin Concent 32.4, Red Cell Distribution Width 17.3H, Platelet Count 442, Neutrophils (%) (Auto) 59.5, Lymphocytes (%) (Auto) 24.5, Monocytes (%) (Auto) 3.8, Eosinophils (%) (Auto) 7.6H, Basophils (%) (Auto) 1.2H, Neutrophils # (Auto) 4.8, Lymphocytes # (Auto) 2.3, Monocytes # (Auto) 0.3, Eosinophils # (Auto) 0.6H, Basophils # (Auto) 0.1, Large Unclassified Cells % 3.4, Large Unclassified Cells # 0.3, Prothrombin Time 14.7H, Prothromb Time International Ratio 1.13, Anion Gap 7L, Glomerular Filtration Rate > 60.0, Blood Urea Nitrogen 14, Creatinine 1.11, Sodium Level 141, Potassium Level 4.3, Chloride Level 105, Carbon Dioxide Level 29, Calcium Level 9.3, Aspartate Amino Transf (AST/SGOT) 15, Alanine Aminotransferase (ALT/ SGPT) 24, Alkaline Phosphatase 81, Total Bilirubin 0.3, Total Protein 6.2L, Albumin 3.2, Magnesium Level 1.5L, Albumin/Globulin Ratio 1.07 01/22/17 09:17: Vancomycin Level Trough 20.6H 01/22/17 13:42: Bedside Glucose (Misc Panel) 132H 01/22/17 18:00: Activated Partial Thromboplast Time 50.2H, Fibrinogen 383 CBC/BMP Laboratory Tests 01/22/17 02:55 Red Blood Count 4.34, Mean Corpuscular Volume 88.6, Mean Corpuscular Hemoglobin 28.7, Mean Corpuscular Hemoglobin Concent 32.4, Red Cell Distribution Width 17.3 H, Neutrophils (%) (Auto) 59.5, Lymphocytes (%) (Auto) 24.5, Monocytes (%) (Auto) 3.8, Eosinophils (%) (Auto) 7.6 H, Basophils (%) (Auto) 1.2 H, Neutrophils # (Auto) 4.8, Lymphocytes # (Auto) 2.3, Monocytes # (Auto) 0.3, Eosinophils # (Auto) 0.6 H, Basophils # (Auto) 0.1, Calcium Level 9.3, Aspartate Amino Transf (AST/SGOT) 15, Alanine Aminotransferase (ALT/SGPT) 24, Alkaline Phosphatase 81, Total Bilirubin 0.3, Total Protein 6.2 L, Albumin 3.2 01/22/17 18:00 Microbiology Microbiology 01/21/17 MRSA Screen - Final, Complete DARLIN BURCIAGA Jan 22, 2017 20:34
[2017-01-22] MEDS: ATORVASTATIN 10 MG TAB PO SCH (20:40)
[2017-01-22] MEDS: AMITRIPTYLINE 25 MG TAB PO SCH (20:41)
--- NOTE | 2017-01-22 22:34 | IPNPDOC ---
Date Seen The patient was seen on 01/22/17. Progress Note SUBJECTIVE: Patient is without complaints except for some back pain. OBJECTIVE PHYSICAL EXAMINATION: VITAL SIGNS: Please see below. GENERAL: Lying in bed comfortably HEENT: Normal CARDIOVASCULAR: Regular rate and rhythm. RESPIRATORY: Clear to auscultation bilaterally. ABDOMINAL: Soft nontender nondistended EXTREMITIES: Right upper extremity is edematous. Infusion catheter in place with dressing covering the sheath in the right basilic vein. NEUROLOGICAL: Awake alert oriented x3 PSYCHOLOGICAL: Normal LABORATORY DATA: Please see below. MICROBIOLOGY: Please see below. DVT prophylaxis ordered?: Patient currently on a heparin drip and TPA for thrombolysis of right upper arm DVT. ASSESSMENT AND PLAN: This is a 56-year-old male with right upper extremity DVT and swelling after a right basilic vein PICC line placement. Patient is currently undergoing right upper extremity venous from lysis. PROBLEMS: 1. upper extremity DVT and swelling: H and is currently undergoing a right upper extremity venous from lysis and is stable. DISPOSITION: Patient will require continued ICU stay during the right upper extremity venous from lysis. VS, I&O, 24H, [facility] Vital Signs/I&O Vital Signs Date Time Temp Pulse Resp B/P (MAP) Pulse Ox O2 Delivery O2 Flow Rate FiO2 01/22/17 21:00 82 144/96 (112) 97 Room Air 01/22/17 20:42 18 01/22/17 20:00 98.7 01/22/17 04:00 2.0 I&O- Last 24 Hours up to 6 AM 01/22/17 06:00 Intake Total 1814 ml Output Total 2675 ml Balance -861 ml Laboratory Data 24H LABS Laboratory Tests 2 01/22/17 02:55: White Blood Count 8.1, Red Blood Count 4.34, Hemoglobin 12.4L, Hematocrit 38.4L , Mean Corpuscular Volume 88.6, Mean Corpuscular Hemoglobin 28.7, Mean Corpuscular Hemoglobin Concent 32.4, Red Cell Distribution Width 17.3H, Platelet Count 442, Neutrophils (%) (Auto) 59.5, Lymphocytes (%) (Auto) 24.5, Monocytes (%) (Auto) 3.8, Eosinophils (%) (Auto) 7.6H, Basophils (%) (Auto) 1.2H , Neutrophils # (Auto) 4.8, Lymphocytes # (Auto) 2.3, Monocytes # (Auto) 0.3, Eosinophils # (Auto) 0.6H, Basophils # (Auto) 0.1, Large Unclassified Cells % 3.4, Large Unclassified Cells # 0.3, Prothrombin Time 14.7H, Prothromb Time International Ratio 1.13, Activated Partial Thromboplast Time 71.1H, Anion Gap 7L, Glomerular Filtration Rate > 60.0, Blood Urea Nitrogen 14, Creatinine 1.11, Sodium Level 141, Potassium Level 4.3, Chloride Level 105, Carbon Dioxide Level 29, Calcium Level 9.3, Aspartate Amino Transf (AST/SGOT) 15, Alanine Aminotransferase (ALT/SGPT) 24, Alkaline Phosphatase 81, Total Bilirubin 0.3, Total Protein 6.2L, Albumin 3.2, Magnesium Level 1.5L, Albumin/Globulin Ratio 1.07 01/22/17 09:17: Vancomycin Level Trough 20.6H 01/22/17 13:42: Bedside Glucose (Misc Panel) 132H 01/22/17 18:00: Activated Partial Thromboplast Time 50.2H, Fibrinogen 383 CBC/BMP Laboratory Tests 01/22/17 02:55 Red Blood Count 4.34, Mean Corpuscular Volume 88.6, Mean Corpuscular Hemoglobin 28.7, Mean Corpuscular Hemoglobin Concent 32.4, Red Cell Distribution Width 17.3 H, Neutrophils (%) (Auto) 59.5, Lymphocytes (%) (Auto) 24.5, Monocytes (%) (Auto) 3.8, Eosinophils (%) (Auto) 7.6 H, Basophils (%) (Auto) 1.2 H, Neutrophils # (Auto) 4.8, Lymphocytes # (Auto) 2.3, Monocytes # (Auto) 0.3, Eosinophils # (Auto) 0.6 H, Basophils # (Auto) 0.1, Calcium Level 9.3, Aspartate Amino Transf (AST/SGOT) 15, Alanine Aminotransferase (ALT/SGPT) 24, Alkaline Phosphatase 81, Total Bilirubin 0.3, Total Protein 6.2 L, Albumin 3.2 01/22/17 18:00 Microbiology Microbiology 01/21/17 MRSA Screen - Final, Complete Osmar Go MD Jan 22, 2017 22:34
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
[2017-01-23] VITALS (11 sets, daily range): BP systolic 116–194; BP diastolic 61–95
[2017-01-23] MEDS: hydrALAZINE INJ 20 MG/ML VIAL IV SCH ×4 (02:00→20:09)
[2017-01-23] MEDS: VANCOMYCIN HCL 750 MG, VIAL MATE ADAPTER 1 EACH in D5W 250 ML IV SCH ×3 (03:07→18:24)
[2017-01-23] MEDS: oxyCODONE 5MG TAB PO PRN ×3 (03:18→20:08)
[2017-01-23] MEDS: SODIUM CHLORIDE 0.9% INJ 10 ML SYR IV SCH ×2 (05:31→18:07)
[2017-01-23 05:54] LABS: MEAN CORPUSCULAR HEMOGLOBIN 29.6 pg (27.0-33.0); MEAN CORPUSCULAR HGB CONC 33.4 g/dl (32.0-36.5); MEAN CORPUSCULAR VOLUME 88.7 fl (80.0-96.0); RED CELL DISTRIBUTION WIDTH 17.3 % (11.5-14.5); WHITE BLOOD COUNT 8.5 K/mm3 (4.0-10.0)
[2017-01-23 06:21] LABS: ANION GAP 6 MEQ/L (8-16); BLOOD UREA NITROGEN 14 MG/DL (7-18); CALCIUM LEVEL 9.7 MG/DL (8.5-10.1); CARBON DIOXIDE LEVEL 31 MEQ/L (21-32); CHLORIDE LEVEL 103 MEQ/L (98-107); GLOMERULAR FILTRATION RATE > 60.0 (>56); GLUCOSE, FASTING 184 MG/DL (70-105); MAGNESIUM LEVEL 1.7 MG/DL (1.8-2.4); POTASSIUM SERUM 4.3 MEQ/L (3.5-5.1); SODIUM LEVEL 140 MEQ/L (136-145)
[2017-01-23] MEDS: MAG SULF 1GM/100ML (MAG RUN) 1 GM in APPROPRIATE DILUENT 1 EA IV SCH ×2 (07:30→08:50)
[2017-01-23] MEDS: HumaLOG INSULIN (NovoLOG) PER UNIT SC SCH ×4 (07:37→21:00)
[2017-01-23] MEDS: SENOKOT S TAB PO SCH ×2 (08:48→21:16)
[2017-01-23] MEDS: CARVedilol 3.125 MG TAB PO SCH ×2 (08:48→21:15)
[2017-01-23] MEDS: MAGNESIUM OXIDE 400 MG TAB (MAG-OX) PO SCH ×2 (08:48→21:16)
[2017-01-23] MEDS: PANTOPRAZOLE 40MG TAB (PROTONIX) PO SCH (08:48)
[2017-01-23] MEDS: ALLOPURINOL 300 MG TAB PO SCH (08:49)
[2017-01-23] MEDS: VITAMIN D 1,000 INTERNATIONAL UNITS TABLET PO SCH (08:49)
[2017-01-23] MEDS: amLODIPine 5 MG TAB PO SCH ×2 (08:49→21:16)
[2017-01-23] MEDS: MULTIVITAMINS/MINERALS THERAP 1 TAB PO SCH (08:49)
[2017-01-23] MEDS: MIRALAX *UNIT DOSE* 17GM PACKET PO SCH ×2 (08:50→09:00)
[2017-01-23] MEDS: DOCUSATE SODIUM 100 MG CAP PO SCH ×2 (08:50→21:13)
[2017-01-23] MEDS: buPROPion **XL** TABLET 150MG (WELLBUTRIN XL) PO SCH (08:50)
[2017-01-23] MEDS: PRIMIDONE 50 MG TAB PO SCH ×2 (08:50→21:13)
[2017-01-23] MEDS: ENALAPRIL MALEATE 10 MG TAB PO SCH (08:51)
[2017-01-23] MEDS: oxyCODONE 20 MG CR TAB PO SCH ×2 (09:28→21:22)
[2017-01-23] MEDS: HEPARIN DRIP 25,000 UNITS in APPROPRIATE DILUENT 1 EA IV SCH ×2 (11:04→23:43)
--- NOTE | 2017-01-23 12:15 | IPNPDOC ---
Date Seen The patient was seen on 01/23/17. Progress Note Subjective: No complaints this morning. Physical Exam: Vitals: As below. General: Awake, Alert, no acute distress HEENT: Normocephalic, atraumatic, extraocular movements intact CV: Regular rate and rhythm Lungs: Clear to auscultation bilaterally Abd: Soft, nontender, nondistended Extremities: Left foot is wrapped in Omar bandage Neuro: Alert and oriented 3, normal speech Psych: Normal mood and affect Labs and Radiology: As below. Assessment and Plan: 56-year-old male with diabetes mellitus type 2, hypertension, hyperlipidemia, depression, anxiety, gout, peripheral neuropathy, who is currently residing at [facility] while he finishes 6 weeks of IV antibiotics for osteomyelitis of the left calcaneus who presented to the emergency department with chest pain relieved with nitroglycerin. Since discharge to [facility], the patient experienced a right upper extremity DVT, secondary to his PICC line. Even after the PICC line was moved to the left arm, he was noted to have a second DVT in that arm while on oral anticoagulation, so he was transitioned to Lovenox. 1. Chest pain: The patient's cardiac markers have been negative 3. EKG is not indicative of acute infarct or ischemia. CT angio negative for PE. However in view of his multiple risk factors for coronary artery disease will need further evaluation of chest pain as outpatient. He will need to follow-up with the photo finisher for stress testing outpatient. Continue daily aspirin. Echo revealed normal EF, no wall motion abnormalities, and no diastolic dysfunction. 2. Right upper extremity DVTs axillary and subclavian : Status post intravascular thrombolysis currently on heparin gtt. Management as per Dr Luna. 3. Recent osteomyelitis of the left calcaneus: Continue IV vancomycin. Continue dressing changes. Vanco 6 week course to be finished on jan 25 . Patient will need wound vac. 4. Diabetes mellitus type 2 with neuropathy : will start glimiperide and continue Sliding scale insulin while in-house. continue amitriptyline. 5. Hypertension: Uncontrolled. Continue Norvasc, Coreg, and OMAR inhibitor and hydralazine prn. 6. Hyperlipidemia: Continue home statin. 7. Depression and anxiety: Continue home Elavil, Wellbutrin. 8. Gout: Not currently active. Continue home allopurinol. 9. Hypomagnesemia: Replacing IV. On recent admission, patient required multiple IV replacement. continue scheduled oral Mag-Ox. 10. Morbid obesity and SARAH. : stable at this point. 11. Pulmonary hypertension: moderate to severe. 12. GERD: continue pantoprazole. DVT prophylaxis: Heparin drip VS, I&O, 24H, Fishbone Vital Signs/I&O Vital Signs Date Time Temp Pulse Resp B/P (MAP) Pulse Ox O2 Delivery O2 Flow Rate FiO2 01/23/17 09:28 98.7 95 20 193/95 93 Room Air 01/22/17 04:00 2.0 I&O- Last 24 Hours up to 6 AM 01/23/17 05:59 Intake Total 1191 ml Output Total 2675 ml Balance -1484 ml Laboratory Data 24H LABS Laboratory Tests 2 01/22/17 13:42: Bedside Glucose (Misc Panel) 132H 01/22/17 18:00: Activated Partial Thromboplast Time 50.2H, Fibrinogen 383 01/22/17 23:36: Activated Partial Thromboplast Time 60.9H, Fibrinogen 358 01/23/17 05:32: Activated Partial Thromboplast Time 61.5H, Fibrinogen 369, Anion Gap 6L, Glomerular Filtration Rate > 60.0, Blood Urea Nitrogen 14, Creatinine 1.10, Sodium Level 140, Potassium Level 4.3, Chloride Level 103, Carbon Dioxide Level 31, Calcium Level 9.7, Magnesium Level 1.7L 01/23/17 10:56: CBC/BMP Laboratory Tests 01/22/17 18:00 01/22/17 23:36 01/23/17 05:32 Red Blood Count 4.24 L, Mean Corpuscular Volume 88.7, Mean Corpuscular Hemoglobin 29.6, Mean Corpuscular Hemoglobin Concent 33.4, Red Cell Distribution Width 17.3 H, Calcium Level 9.7 Microbiology Microbiology 01/21/17 MRSA Screen - Final, Complete GRICELDA OBANDO MD Jan 23, 2017 12:15
[2017-01-23] MEDS: ALTEPLASE RECOMBINANT 25 MG in NS 225 ML IV SCH (13:07)
[2017-01-23] MEDS: GLIMEPIRIDE 2 MG TAB PO SCH (13:31)
[2017-01-23] MEDS: ACETAMINOPHEN TAB 650MG DOSE (2X325MG) PO PRN (17:52)
[2017-01-23] MEDS: AMITRIPTYLINE 25 MG TAB PO SCH (21:16)
[2017-01-23] MEDS: ATORVASTATIN 10 MG TAB PO SCH (21:16)
--- NOTE | 2017-01-23 23:12 | IPNPDOC ---
Date Seen The patient was seen on 01/23/17. Progress Note SUBJECTIVE: Patient is without complaints. right upper extremity is slightly less swollen and painful. OBJECTIVE PHYSICAL EXAMINATION: VITAL SIGNS: Please see below. GENERAL: Lying in bed comfortably HEENT: Normal CARDIOVASCULAR: Regular rate and rhythm. RESPIRATORY: Clear to auscultation bilaterally. ABDOMINAL: Soft nontender nondistended EXTREMITIES: Well-perfused. NEUROLOGICAL: Awake alert oriented x3 with no focal deficits. PSYCHOLOGICAL: Normal LABORATORY DATA: Please see below. MICROBIOLOGY: Please see below. DVT prophylaxis ordered?: Patient is on a heparin drip and TPA drip. ASSESSMENT AND PLAN: This is a 56-year-old male with right upper extremity DVT and was undergoing a right upper extremity venous thrombolysis. PROBLEMS: 1. right upper extremity DVT: Patient undergoing right upper extremity venous, lysis. We'll continue thrombolysis with lysis followup 01/24/2017 DISPOSITION: He should undergo a venous thrombolysis and requires continued ICU monitoring. VS, I&O, 24H, Fishbone Vital Signs/I&O Vital Signs Date Time Temp Pulse Resp B/P (MAP) Pulse Ox O2 Delivery O2 Flow Rate FiO2 01/23/17 21:22 20 Room Air 01/23/17 21:15 100 180/93 01/23/17 20:08 96 01/23/17 17:04 97.9 01/22/17 04:00 2.0 I&O- Last 24 Hours up to 6 AM 01/23/17 06:00 Intake Total 1634 ml Output Total 2075 ml Balance -441 ml Laboratory Data 24H LABS Laboratory Tests 2 01/22/17 23:36: Activated Partial Thromboplast Time 60.9H, Fibrinogen 358 01/23/17 05:32: Activated Partial Thromboplast Time 61.5H, Fibrinogen 369, Anion Gap 6L, Glomerular Filtration Rate > 60.0, Blood Urea Nitrogen 14, Creatinine 1.10, Sodium Level 140, Potassium Level 4.3, Chloride Level 103, Carbon Dioxide Level 31, Calcium Level 9.7, Magnesium Level 1.7L 01/23/17 10:56: Vancomycin Level Trough 14.5 01/23/17 12:01: Activated Partial Thromboplast Time 52.3H, Fibrinogen 339 01/23/17 18:17: Activated Partial Thromboplast Time 60.4H, Fibrinogen 257 CBC/BMP Laboratory Tests 01/22/17 23:36 01/23/17 05:32 Red Blood Count 4.24 L, Mean Corpuscular Volume 88.7, Mean Corpuscular Hemoglobin 29.6, Mean Corpuscular Hemoglobin Concent 33.4, Red Cell Distribution Width 17.3 H, Calcium Level 9.7 01/23/17 12:01 01/23/17 18:17 Microbiology Microbiology 01/21/17 MRSA Screen - Final, Complete Osmar Go MD Jan 23, 2017 23:12
[2017-01-24] VITALS (9 sets, daily range): BP systolic 166–194; BP diastolic 81–93
[2017-01-24] MEDS: hydrALAZINE INJ 20 MG/ML VIAL IV SCH ×4 (02:00→20:00)
[2017-01-24] MEDS: VANCOMYCIN HCL 750 MG, VIAL MATE ADAPTER 1 EACH in D5W 250 ML IV SCH ×3 (03:14→18:24)
[2017-01-24] MEDS: SODIUM CHLORIDE 0.9% INJ 10 ML SYR IV SCH ×2 (05:36→18:24)
[2017-01-24 05:53] LABS: MEAN CORPUSCULAR HEMOGLOBIN 28.9 pg (27.0-33.0); MEAN CORPUSCULAR HGB CONC 32.8 g/dl (32.0-36.5); RED CELL DISTRIBUTION WIDTH 17.3 % (11.5-14.5); WHITE BLOOD COUNT 8.8 K/mm3 (4.0-10.0)
[2017-01-24 07:04] LABS: ANION GAP 9 MEQ/L (8-16); BLOOD UREA NITROGEN 12 MG/DL (7-18); CALCIUM LEVEL 9.6 MG/DL (8.5-10.1); CARBON DIOXIDE LEVEL 27 MEQ/L (21-32); CHLORIDE LEVEL 105 MEQ/L (98-107); CREATININE FOR GFR 1.18 MG/DL (0.70-1.30); GLOMERULAR FILTRATION RATE > 60.0 (>56); GLUCOSE, FASTING 223 MG/DL (70-105); MAGNESIUM LEVEL 1.6 MG/DL (1.8-2.4); POTASSIUM SERUM 4.5 MEQ/L (3.5-5.1); SODIUM LEVEL 141 MEQ/L (136-145)
[2017-01-24] MEDS: HumaLOG INSULIN (NovoLOG) PER UNIT SC SCH ×4 (08:21→21:14)
[2017-01-24] MEDS: oxyCODONE 20 MG CR TAB PO SCH ×2 (08:22→21:11)
[2017-01-24] MEDS: PRIMIDONE 50 MG TAB PO SCH ×2 (08:26→21:12)
[2017-01-24] MEDS: GLIMEPIRIDE 2 MG TAB PO SCH (08:27)
[2017-01-24] MEDS: ENALAPRIL MALEATE 10 MG TAB PO SCH (08:28)
[2017-01-24] MEDS: VITAMIN D 1,000 INTERNATIONAL UNITS TABLET PO SCH (08:28)
[2017-01-24] MEDS: MULTIVITAMINS/MINERALS THERAP 1 TAB PO SCH (08:29)
[2017-01-24] MEDS: amLODIPine 5 MG TAB PO SCH ×2 (08:29→21:13)
[2017-01-24] MEDS: DOCUSATE SODIUM 100 MG CAP PO SCH ×2 (08:29→21:12)
[2017-01-24] MEDS: MAGNESIUM OXIDE 400 MG TAB (MAG-OX) PO SCH ×2 (08:29→21:13)
[2017-01-24] MEDS: buPROPion **XL** TABLET 150MG (WELLBUTRIN XL) PO SCH (08:29)
[2017-01-24] MEDS: SENOKOT S TAB PO SCH ×3 (08:30→21:12)
[2017-01-24] MEDS: ALLOPURINOL 300 MG TAB PO SCH (08:30)
[2017-01-24] MEDS: CARVedilol 12.5 MG TAB PO SCH ×2 (08:30→21:13)
[2017-01-24] MEDS: PANTOPRAZOLE 40MG TAB (PROTONIX) PO SCH (08:30)
--- NOTE | 2017-01-24 11:23 | IPNPDOC ---
Date Seen The patient was seen on 01/24/17. Progress Note Subjective: No complaints this morning. Says nurses have difficulty in measuring BP sometimes in the hand and some times in the calf so bp keeps on varying. no fever or chills, no chest pain or sob , no abdominal pain nausea or vomiting or diarrhea. Physical Exam: Vitals: As below. General: Awake, Alert, no acute distress HEENT: Normocephalic, atraumatic, extraocular movements intact CV: Regular rate and rhythm Lungs: Clear to auscultation bilaterally Abd: Soft, nontender, nondistended Extremities: Left foot is wrapped in Omar bandage Neuro: Alert and oriented 3, normal speech Psych: Normal mood and affect Labs and Radiology: As below. Assessment and Plan: 56-year-old male with diabetes mellitus type 2, hypertension, hyperlipidemia, depression, anxiety, gout, peripheral neuropathy, who is currently residing at [facility] while he finishes 6 weeks of IV antibiotics for osteomyelitis of the left calcaneus who presented to the emergency department with chest pain relieved with nitroglycerin. Since discharge to [facility], the patient experienced a right upper extremity DVT, secondary to his PICC line. Even after the PICC line was moved to the left arm, he was noted to have a second DVT in that arm while on oral anticoagulation, so he was transitioned to Lovenox. 1. Chest pain: The patient's cardiac markers have been negative 3. EKG is not indicative of acute infarct or ischemia. CT angio negative for PE. However in view of his multiple risk factors for coronary artery disease will need further evaluation of chest pain as outpatient. He will need to follow-up with the stock mixer for stress testing outpatient. Continue daily aspirin. Echo revealed normal EF, no wall motion abnormalities, and no diastolic dysfunction. 2. Right upper extremity DVTs axillary and subclavian : Status post intravascular thrombolysis currently on heparin gtt. Management as per Dr Luna. 3. Recent osteomyelitis of the left calcaneus: Continue IV vancomycin. Continue dressing changes. Vanco 6 week course to be finished on jan 25 . Patient will need wound vac. 4. Diabetes mellitus type 2 with neuropathy : on glimiperide and continue Sliding scale insulin while in-house. continue amitriptyline. 5. Hypertension: Uncontrolled. Continue Norvasc, Coreg, and OMAR inhibitor and hydralazine prn. 6. Hyperlipidemia: Continue home statin. 7. Depression and anxiety: Continue home Elavil, Wellbutrin. 8. Gout: Not currently active. Continue home allopurinol. 9. Hypomagnesemia: Replacing IV. continue scheduled oral Mag-Ox. 10. Morbid obesity and SARAH. : stable at this point. 11. Pulmonary hypertension: moderate to severe. 12. GERD: continue pantoprazole. DVT prophylaxis: Heparin drip VS, I&O, 24H, Fishbone Vital Signs/I&O Vital Signs Date Time Temp Pulse Resp B/P (MAP) Pulse Ox O2 Delivery O2 Flow Rate FiO2 01/24/17 08:30 97 01/24/17 08:25 177/83 01/24/17 08:22 18 93 01/24/17 08:00 97.3 Room Air 01/22/17 04:00 2.0 I&O- Last 24 Hours up to 6 AM 01/24/17 05:59 Intake Total 3111 ml Output Total 1200 ml Balance 1911 ml Laboratory Data 24H LABS Laboratory Tests 2 01/23/17 12:01: Activated Partial Thromboplast Time 52.3H, Fibrinogen 339 01/23/17 18:17: Activated Partial Thromboplast Time 60.4H, Fibrinogen 257 01/23/17 23:58: Activated Partial Thromboplast Time 53.2H, Fibrinogen 208L 01/24/17 05:33: Activated Partial Thromboplast Time 55.1H, Fibrinogen 235, Anion Gap 9, Glomerular Filtration Rate > 60.0, Blood Urea Nitrogen 12, Creatinine 1.18, Sodium Level 141, Potassium Level 4.5, Chloride Level 105, Carbon Dioxide Level 27, Calcium Level 9.6, Magnesium Level 1.6L CBC/BMP Laboratory Tests 01/23/17 12:01 01/23/17 18:17 01/23/17 23:57 01/24/17 05:33 Red Blood Count 4.22 L, Mean Corpuscular Volume 88.0, Mean Corpuscular Hemoglobin 28.9, Mean Corpuscular Hemoglobin Concent 32.8, Red Cell Distribution Width 17.3 H, Calcium Level 9.6 Microbiology Microbiology 01/21/17 MRSA Screen - Final, Complete GRICELDA OBANDO MD Jan 24, 2017 11:23
[2017-01-24] MEDS: MAG SULF 1GM/100ML (MAG RUN) 1 GM in APPROPRIATE DILUENT 1 EA IV SCH ×2 (12:28→13:48)
[2017-01-24] MEDS: HEPARIN DRIP 25,000 UNITS in APPROPRIATE DILUENT 1 EA IV SCH (13:01)
[2017-01-24] MEDS: ALTEPLASE RECOMBINANT 25 MG in NS 225 ML IV SCH (13:18)
[2017-01-24] MEDS: oxyCODONE 5MG TAB PO PRN ×2 (15:47→21:12)
[2017-01-24] MEDS: AMITRIPTYLINE 25 MG TAB PO SCH (21:12)
[2017-01-24] MEDS: ATORVASTATIN 10 MG TAB PO SCH (21:13)
--- NOTE | 2017-01-24 21:34 | IPNPDOC ---
Date Seen The patient was seen on 01/24/17. Progress Note SUBJECTIVE: Patient is without complaints. OBJECTIVE PHYSICAL EXAMINATION: VITAL SIGNS: Please see below. GENERAL: Lying in bed comfortably HEENT: Normal CARDIOVASCULAR: Irregular rate and rhythm. RESPIRATORY: Clear to auscultation bilaterally. ABDOMINAL: Soft nontender nondistended EXTREMITIES: Right upper extremity slightly less swelling with good perfusion NEUROLOGICAL: Alert oriented x3 with no focal deficits PSYCHOLOGICAL: Normal LABORATORY DATA: Please see below. MICROBIOLOGY: Please see below. DVT prophylaxis ordered?: Patient currently on a heparin drip and TPA drip. ASSESSMENT AND PLAN: This is a 56-year-old male with a right upper extremity DVT and 6 extreme swelling and pain in the right upper extremity after placement of a PICC line. Patient is currently undergoing some lysis of the right upper extremity. PROBLEMS: 1. right upper extremity DVT currently undergoing venous on the lysis: Fibrinogen has been stable PTT has been stable patient will continue with her lysis and undergo a probable lysis checked on 01/25/2017. DISPOSITION: Patient requires ICU monitoring during thrombolysis of his right upper extremity DVT. VS, I&O, 24H, [facility] Vital Signs/I&O Vital Signs Date Time Temp Pulse Resp B/P (MAP) Pulse Ox O2 Delivery O2 Flow Rate FiO2 01/24/17 21:13 92 194/93 01/24/17 21:12 20 98 Room Air 01/24/17 16:00 97.7 01/22/17 04:00 2.0 I&O- Last 24 Hours up to 6 AM 01/24/17 05:59 Intake Total 3111 ml Output Total 1200 ml Balance 1911 ml Laboratory Data 24H LABS Laboratory Tests 2 01/23/17 23:58: Activated Partial Thromboplast Time 53.2H, Fibrinogen 208L 01/24/17 05:33: Activated Partial Thromboplast Time 55.1H, Fibrinogen 235, Anion Gap 9, Glomerular Filtration Rate > 60.0, Blood Urea Nitrogen 12, Creatinine 1.18, Sodium Level 141, Potassium Level 4.5, Chloride Level 105, Carbon Dioxide Level 27, Calcium Level 9.6, Magnesium Level 1.6L 01/24/17 11:33: Activated Partial Thromboplast Time 54.4H, Fibrinogen 238 01/24/17 17:34: Activated Partial Thromboplast Time 50.1H, Fibrinogen 258 CBC/BMP Laboratory Tests 01/23/17 23:57 01/24/17 05:33 Red Blood Count 4.22 L, Mean Corpuscular Volume 88.0, Mean Corpuscular Hemoglobin 28.9, Mean Corpuscular Hemoglobin Concent 32.8, Red Cell Distribution Width 17.3 H, Calcium Level 9.6 01/24/17 11:33 01/24/17 17:34 Microbiology Microbiology 01/24/17 Stool Occult Blood (ANTOINE) - Final, Complete 01/21/17 MRSA Screen - Final, Complete Osmar Go MD Jan 24, 2017 21:34
[2017-01-24] MEDS: ACETAMINOPHEN TAB 650MG DOSE (2X325MG) PO PRN (22:24)
[2017-01-25] VITALS (14 sets, daily range): BP systolic 148–190; BP diastolic 68–105
[2017-01-25] MEDS: PANTOPRAZOLE 40MG INJ (PROTONIX) (C9113) IV SCH ×3 (01:02→20:56)
[2017-01-25] MEDS: hydrALAZINE INJ 20 MG/ML VIAL IV SCH ×4 (01:54→20:00)
[2017-01-25] MEDS: HEPARIN DRIP 25,000 UNITS in APPROPRIATE DILUENT 1 EA IV SCH ×2 (01:56→14:16)
[2017-01-25] MEDS: VANCOMYCIN HCL 750 MG, VIAL MATE ADAPTER 1 EACH in D5W 250 ML IV SCH ×2 (02:05→11:10)
[2017-01-25] MEDS: oxyCODONE 5MG TAB PO PRN ×2 (02:06→12:26)
[2017-01-25] MEDS: SODIUM CHLORIDE 0.9% INJ 10 ML SYR IV SCH ×2 (05:59→17:54)
[2017-01-25 06:34] LABS: MEAN CORPUSCULAR HEMOGLOBIN 29.2 pg (27.0-33.0); MEAN CORPUSCULAR HGB CONC 32.4 g/dl (32.0-36.5); MEAN CORPUSCULAR VOLUME 90.1 fl (80.0-96.0); RED CELL DISTRIBUTION WIDTH 17.4 % (11.5-14.5); WHITE BLOOD COUNT 8.6 K/mm3 (4.0-10.0)
[2017-01-25 06:35] LABS: ANION GAP 8 MEQ/L (8-16); BLOOD UREA NITROGEN 11 MG/DL (7-18); CALCIUM LEVEL 9.2 MG/DL (8.5-10.1); CARBON DIOXIDE LEVEL 28 MEQ/L (21-32); CHLORIDE LEVEL 104 MEQ/L (98-107); CREATININE FOR GFR 1.23 MG/DL (0.70-1.30); GLOMERULAR FILTRATION RATE > 60.0 (>56); GLUCOSE, FASTING 309 MG/DL (70-105); MAGNESIUM LEVEL 1.6 MG/DL (1.8-2.4); POTASSIUM SERUM 4.1 MEQ/L (3.5-5.1); SODIUM LEVEL 140 MEQ/L (136-145)
[2017-01-25] MEDS: oxyCODONE 20 MG CR TAB PO SCH ×2 (07:45→20:58)
[2017-01-25] MEDS: DOCUSATE SODIUM 100 MG CAP PO SCH ×2 (07:46→20:58)
[2017-01-25] MEDS: PRIMIDONE 50 MG TAB PO SCH ×2 (07:46→20:57)
[2017-01-25] MEDS: amLODIPine 5 MG TAB PO SCH ×2 (07:46→20:59)
[2017-01-25] MEDS: ENALAPRIL MALEATE 10 MG TAB PO SCH (07:46)
[2017-01-25] MEDS: SENOKOT S TAB PO SCH ×2 (07:47→20:59)
[2017-01-25] MEDS: GLIMEPIRIDE 2 MG TAB PO SCH (07:48)
[2017-01-25] MEDS: PANTOPRAZOLE 40MG TAB (PROTONIX) PO SCH (07:48)
[2017-01-25] MEDS: buPROPion **XL** TABLET 150MG (WELLBUTRIN XL) PO SCH (07:48)
[2017-01-25] MEDS: VITAMIN D 1,000 INTERNATIONAL UNITS TABLET PO SCH (07:48)
[2017-01-25] MEDS: MULTIVITAMINS/MINERALS THERAP 1 TAB PO SCH (07:48)
[2017-01-25] MEDS: MAGNESIUM OXIDE 400 MG TAB (MAG-OX) PO SCH ×2 (07:49→20:59)
[2017-01-25] MEDS: ALLOPURINOL 300 MG TAB PO SCH (07:49)
[2017-01-25] MEDS: CARVedilol 12.5 MG TAB PO SCH ×2 (07:49→20:58)
[2017-01-25] MEDS ORDERED: fentaNYL 100 MCG/2 ML INJECTION (J3010) ONE ×2 (07:50→09:11)
[2017-01-25] MEDS ORDERED: MIDAZOLAM INJ 2 MG/2 ML VIAL (J2250) ONE (07:50)
[2017-01-25] MEDS: HumaLOG INSULIN (NovoLOG) PER UNIT SC SCH ×4 (07:50→21:00)
[2017-01-25] MEDS ORDERED: LIDOCAINE 2% INJ 100 MG/5 ML SDV (FOR ANES.) ONE (07:50)
[2017-01-25] MEDS ORDERED: PROPOFOL 200 MG/20 ML VIAL ONE (07:50)
[2017-01-25] MEDS: MIRALAX *UNIT DOSE* 17GM PACKET PO SCH ×3 (07:51→13:23)
[2017-01-25] MEDS ORDERED: HEPARIN SOD (PORCINE) 5000 UNITS/ML VIAL ONE (08:16)
--- NOTE | 2017-01-25 10:38 | IPNPDOC ---
Date Seen The patient was seen on 01/25/17. Progress Note SUBJECTIVE: Patient is with complaints of right upper arm discomfort. The patient doesn't mild swelling in the right upper extremity is significantly reduced and that he has better range of motion in his right arm and hand. OBJECTIVE PHYSICAL EXAMINATION: VITAL SIGNS: Please see below. GENERAL: Lying in bed comfortably HEENT: Normal CARDIOVASCULAR: Regular rate and rhythm. RESPIRATORY: Clear to auscultation bilaterally. ABDOMINAL: Soft nontender nondistended EXTREMITIES: Right upper extremity has less edema and is well perfused NEUROLOGICAL: Awake alert oriented x3 with no focal deficits PSYCHOLOGICAL: Normal LABORATORY DATA: Please see below. MICROBIOLOGY: Please see below. IMAGING: Patient underwent a right upper extremity venogram with angioplasty of his axillary and subclavian veins. DVT prophylaxis ordered?: Patient is currently on a heparin drip and is therapeutic. ASSESSMENT AND PLAN: This is a 56-year-old male with right upper extremity DVT secondary to a right basilic vein PICC line placement. Patient has undergone thrombolysis with good result and today underwent angioplasty of his axillary and subclavian veins with good result. Patient no longer requires thrombolysis but will leave prior long-term anticoagulation. Patient also has a nonhealing left heel ulcer with osteomyelitis and nonpalpable pulses in the left foot. PROBLEMS: 1. right upper extremity DVT: Patient has successfully undergone from a lysis and angioplasty of his axillary and subclavian veins. Patient will require anticoagulation with heparin with conversion to Coumadin with an INR range of 2.5-3.5. 2. nonhealing left foot ulcer with osteomyelitis: Patient has nonpalpable pulses in the left lower extremity and I have ordered an arterial duplex to evaluate the arterial inflow to the left foot. 3. heme positive stool: Patient was converted to an IV Protonix and is no longer on a t-PA drip but will require heparinization with conversion to Coumadin and this will be watched closely. DISPOSITION: Patient is stable for transfer to a medical surgical floor. VS, I&O, 24H, Fishbone Vital Signs/I&O Vital Signs Date Time Temp Pulse Resp B/P (MAP) Pulse Ox O2 Delivery O2 Flow Rate FiO2 01/25/17 07:49 66 01/25/17 07:46 185/93 01/25/17 07:45 16 94 01/25/17 07:19 97.9 Room Air 01/22/17 04:00 2.0 I&O- Last 24 Hours up to 6 AM 01/25/17 06:00 Intake Total 3167 ml Output Total 500 ml Balance 2667 ml Laboratory Data 24H LABS Laboratory Tests 2 01/24/17 11:33: Activated Partial Thromboplast Time 54.4H, Fibrinogen 238 01/24/17 17:34: Activated Partial Thromboplast Time 50.1H, Fibrinogen 258 01/24/17 23:57: Activated Partial Thromboplast Time 50.2H, Fibrinogen 173L 01/25/17 05:58: Activated Partial Thromboplast Time 63.8H, Fibrinogen 188L, Anion Gap 8, Glomerular Filtration Rate > 60.0, Blood Urea Nitrogen 11, Creatinine 1.23, Sodium Level 140, Potassium Level 4.1, Chloride Level 104, Carbon Dioxide Level 28, Calcium Level 9.2, Magnesium Level 1.6L CBC/BMP Laboratory Tests 01/24/17 11:33 01/24/17 17:34 01/24/17 23:57 01/25/17 05:58 Red Blood Count 4.17 L, Mean Corpuscular Volume 90.1, Mean Corpuscular Hemoglobin 29.2, Mean Corpuscular Hemoglobin Concent 32.4, Red Cell Distribution Width 17.4 H, Calcium Level 9.2 Microbiology Microbiology 01/24/17 Stool Occult Blood (ANTOINE) - Final, Complete 01/21/17 MRSA Screen - Final, Complete Osmar Go MD Jan 25, 2017 10:38
[2017-01-25] MEDS: ACETAMINOPHEN TAB 650MG DOSE (2X325MG) PO PRN ×2 (11:17→15:32)
[2017-01-25 11:23] LABS: INR 1.15
--- NOTE | 2017-01-25 11:31 | IPNPDOC ---
Date Seen The patient was seen on 01/25/17. Progress Note Subjective: No complaints this morning. Had thrombolysis and balloon angioplasty of the right arm deep vein this am. Physical Exam: Vitals: As below. General: Awake, Alert, no acute distress HEENT: Normocephalic, atraumatic, extraocular movements intact CV: Regular rate and rhythm Lungs: Clear to auscultation bilaterally Abd: Soft, nontender, nondistended Extremities: Left foot is wrapped in Omar bandage Neuro: Alert and oriented 3, normal speech Psych: Normal mood and affect Labs and Radiology: As below. Assessment and Plan: 56-year-old male with diabetes mellitus type 2, hypertension, hyperlipidemia, depression, anxiety, gout, peripheral neuropathy, who is currently residing at [facility] while he finishes 6 weeks of IV antibiotics for osteomyelitis of the left calcaneus who presented to the emergency department with chest pain relieved with nitroglycerin. Since discharge to [facility], the patient experienced a right upper extremity DVT, secondary to his PICC line. Even after the PICC line was moved to the left arm, he was noted to have a second DVT in that arm while on oral anticoagulation, so he was transitioned to Lovenox. 1. Chest pain: The patient's cardiac markers have been negative 3. EKG is not indicative of acute infarct or ischemia. CT angio negative for PE. However in view of his multiple risk factors for coronary artery disease will need further evaluation of chest pain as outpatient. He will need to follow-up with the lithographic proofer apprentice for stress testing outpatient. Continue daily aspirin. Echo revealed normal EF, no wall motion abnormalities, and no diastolic dysfunction. 2. Right upper extremity DVTs axillary and subclavian : Patient has undergone a lysis and angioplasty of his axillary and subclavian veins. Patient will require anticoagulation with heparin with conversion to Coumadin with an INR range of 2.5-3.5. 3. Recent osteomyelitis of the left calcaneus with non healing ulcer of the left foot : last day of iv vancomycin finished 6 weeks on jan 3. daily dressing change. Patient will need wound vac. pateint has been ordered arterial doppler to look at the blood flow. 4. Diabetes mellitus type 2 with neuropathy : on glimiperide and continue Sliding scale insulin while in-house. continue amitriptyline. 5. Hypertension: Uncontrolled. Continue Norvasc, Coreg, and OMAR inhibitor and hydralazine prn. 6. Hyperlipidemia: Continue home statin. 7. Depression and anxiety: Continue home Elavil, Wellbutrin. 8. Gout: Not currently active. Continue home allopurinol. 9. Hypomagnesemia: Replacing IV. continue scheduled oral Mag-Ox. 10. Morbid obesity and SARAH. : stable at this point. 11. Pulmonary hypertension: moderate to severe. 12. GERD: continue pantoprazole. DVT prophylaxis: Heparin drip VS, I&O, 24H, Fishbone Vital Signs/I&O Vital Signs Date Time Temp Pulse Resp B/P (MAP) Pulse Ox O2 Delivery O2 Flow Rate FiO2 01/25/17 07:49 66 01/25/17 07:46 185/93 01/25/17 07:45 16 94 01/25/17 07:19 97.9 Room Air 01/22/17 04:00 2.0 I&O- Last 24 Hours up to 6 AM 01/25/17 06:00 Intake Total 3167 ml Output Total 500 ml Balance 2667 ml Laboratory Data 24H LABS Laboratory Tests 2 01/24/17 11:33: Activated Partial Thromboplast Time 54.4H, Fibrinogen 238 01/24/17 17:34: Activated Partial Thromboplast Time 50.1H, Fibrinogen 258 01/24/17 23:57: Activated Partial Thromboplast Time 50.2H, Fibrinogen 173L 01/25/17 05:58: Activated Partial Thromboplast Time 63.8H, Fibrinogen 188L, Anion Gap 8, Glomerular Filtration Rate > 60.0, Blood Urea Nitrogen 11, Creatinine 1.23, Sodium Level 140, Potassium Level 4.1, Chloride Level 104, Carbon Dioxide Level 28, Calcium Level 9.2, Magnesium Level 1.6L 01/25/17 10:51: Prothrombin Time 14.9H, Prothromb Time International Ratio 1.15 CBC/BMP Laboratory Tests 01/24/17 11:33 01/24/17 17:34 01/24/17 23:57 01/25/17 05:58 Red Blood Count 4.17 L, Mean Corpuscular Volume 90.1, Mean Corpuscular Hemoglobin 29.2, Mean Corpuscular Hemoglobin Concent 32.4, Red Cell Distribution Width 17.4 H, Calcium Level 9.2 Microbiology Microbiology 01/24/17 Stool Occult Blood (ANTOINE) - Final, Complete 01/21/17 MRSA Screen - Final, Complete GRICELDA OBANDO MD Jan 25, 2017 11:31
[2017-01-25] MEDS: MAG SULF 1GM/100ML (MAG RUN) 1 GM in APPROPRIATE DILUENT 1 EA IV SCH ×3 (12:15→14:26)
[2017-01-25] MEDS ORDERED: diphenhydrAMINE INJ 50MG/ML VIAL (J1200) As Ordered ONE (14:26)
[2017-01-25] MEDS ORDERED: diphenhydrAMINE INJ 50MG/ML VIAL (J1200) IV ONE (14:30)
[2017-01-25] MEDS: WARFARIN SOD 7.5 MG TAB PO SCH (17:54)
[2017-01-25] MEDS: ATORVASTATIN 10 MG TAB PO SCH (20:58)
[2017-01-25] MEDS: AMITRIPTYLINE 25 MG TAB PO SCH (20:58)
[2017-01-26] MEDS: HEPARIN DRIP 25,000 UNITS in APPROPRIATE DILUENT 1 EA IV SCH ×3 (00:40→22:57)
[2017-01-26 02:00] VITALS: BP 160/75
[2017-01-26] MEDS: hydrALAZINE INJ 20 MG/ML VIAL IV SCH ×2 (02:20→08:00)
[2017-01-26] MEDS: SODIUM CHLORIDE 0.9% INJ 10 ML SYR IV SCH ×2 (05:40→17:29)
[2017-01-26 06:00] VITALS: BP 149/77
[2017-01-26 06:10] LABS: MEAN CORPUSCULAR HEMOGLOBIN 29.9 pg (27.0-33.0); MEAN CORPUSCULAR HGB CONC 33.6 g/dl (32.0-36.5); MEAN CORPUSCULAR VOLUME 88.9 fl (80.0-96.0); RED CELL DISTRIBUTION WIDTH 17.3 % (11.5-14.5); WHITE BLOOD COUNT 7.9 K/mm3 (4.0-10.0)
[2017-01-26 06:25] LABS: ANION GAP 8 MEQ/L (8-16); BLOOD UREA NITROGEN 10 MG/DL (7-18); CALCIUM LEVEL 9.4 MG/DL (8.5-10.1); CARBON DIOXIDE LEVEL 28 MEQ/L (21-32); CHLORIDE LEVEL 106 MEQ/L (98-107); GLOMERULAR FILTRATION RATE > 60.0 (>56); GLUCOSE, FASTING 177 MG/DL (70-105); MAGNESIUM LEVEL 1.5 MG/DL (1.8-2.4); POTASSIUM SERUM 4.1 MEQ/L (3.5-5.1); SODIUM LEVEL 142 MEQ/L (136-145)
[2017-01-26] MEDS: oxyCODONE 20 MG CR TAB PO SCH ×2 (09:04→20:41)
[2017-01-26] MEDS: MAG SULF 1GM/100ML (MAG RUN) 1 GM in APPROPRIATE DILUENT 1 EA IV SCH ×3 (09:05→12:42)
[2017-01-26] MEDS: HumaLOG INSULIN (NovoLOG) PER UNIT SC SCH ×4 (09:06→21:00)
[2017-01-26 10:30] VITALS: BP 165/65
[2017-01-26] MEDS: GLIMEPIRIDE 2 MG TAB PO SCH (10:34)
[2017-01-26] MEDS: CARVedilol 12.5 MG TAB PO SCH ×2 (10:43→20:40)
[2017-01-26] MEDS: ALLOPURINOL 300 MG TAB PO SCH (10:44)
[2017-01-26] MEDS: amLODIPine 5 MG TAB PO SCH ×2 (10:44→20:39)
[2017-01-26] MEDS: DOCUSATE SODIUM 100 MG CAP PO SCH ×2 (10:45→20:37)
[2017-01-26] MEDS: PANTOPRAZOLE 40MG TAB (PROTONIX) PO SCH (10:45)
[2017-01-26] MEDS: MULTIVITAMINS/MINERALS THERAP 1 TAB PO SCH (10:45)
[2017-01-26] MEDS: SENOKOT S TAB PO SCH ×2 (10:45→20:42)
[2017-01-26] MEDS: VITAMIN D 1,000 INTERNATIONAL UNITS TABLET PO SCH (10:46)
[2017-01-26] MEDS: buPROPion **XL** TABLET 150MG (WELLBUTRIN XL) PO SCH (10:47)
[2017-01-26] MEDS: ENALAPRIL MALEATE 10 MG TAB PO SCH (10:48)
[2017-01-26] MEDS: PRIMIDONE 50 MG TAB PO SCH ×2 (10:49→20:40)
[2017-01-26] MEDS: MAGNESIUM OXIDE 400 MG TAB (MAG-OX) PO SCH ×3 (10:53→20:41)
[2017-01-26] MEDS ORDERED: MAG SULF 1GM/100ML (MAG RUN) 1 GM in APPROPRIATE DILUENT 1 EA IV SCH (12:00)
[2017-01-26] MEDS: oxyCODONE 5MG TAB PO PRN ×2 (13:38→23:31)
[2017-01-26] MEDS ORDERED: HEPARIN 25,000 UNITS/250 ML D5W BAG (100 UNITS/ML) As Ordered ONE (14:05)
[2017-01-26] MEDS ORDERED: HEPARIN DRIP 25,000 UNITS in APPROPRIATE DILUENT 1 EA IV SCH (14:15)
[2017-01-26] MEDS ORDERED: HEPARIN SOD (PORCINE) 5000 UNITS/ML VIAL IV PRN (14:15)
[2017-01-26] MEDS ORDERED: HEPARIN SOD (PORCINE) 5000 UNITS/ML VIAL IV SCH (14:15)
[2017-01-26] MEDS: WARFARIN SOD 7.5 MG TAB PO SCH (17:28)
--- NOTE | 2017-01-26 18:43 | IPNPDOC ---
Date Seen The patient was seen on 01/26/17. Progress Note SUBJECTIVE: Patient is without complaints. The patient's heparin was inadvertently turned off. OBJECTIVE PHYSICAL EXAMINATION: VITAL SIGNS: Please see below. GENERAL: Lying in bed comfortably HEENT: Normal CARDIOVASCULAR: Regular rate and rhythm. RESPIRATORY: Clear to auscultation bilaterally. ABDOMINAL: Soft nontender nondistended EXTREMITIES: Extremities are well-perfused, mild swelling in the right upper extremity. NEUROLOGICAL: Awake alert oriented x3 with no focal deficits PSYCHOLOGICAL: Normal LABORATORY DATA: Please see below. MICROBIOLOGY: Please see below. DVT prophylaxis ordered?: Action is on heparin drip and taking Coumadin ASSESSMENT AND PLAN: This is a 56 year old male with left low foot ulcers which were requiring IV antibiotics. Patient underwent a right basilic vein PICC line and subsequently developed axillary it's cleaning vein deep venous thrombosis. Patient has undergone right upper extremity venous some lysis with angioplasty of the axillary vein and splinting and vein with good result in decrease swelling and pain in his right upper extremity. Patient was on Heparin drip which was inadvertently discontinued this morning but has been restarted since I've seen him this afternoon. Patient is also undergoing anticoagulation with Coumadin and will remain on heparin drip until his INR is therapeutic between 2.5 and 3.5. Patient also has ulcers and ostium minus in the left foot and decreased pulses noted in the left lower extremity and will undergo a left lower extremity arterial duplex to evaluate for possible arterial insufficiency. PROBLEMS: 1. right upper extremity DVT: She is currently on a heparin drip and undergoing transition to Coumadin therapy. 2. left heel osteomyelitis and ulcers: Patient will undergo an arterial duplex of the left lower extremities to ensure there is no arterial insufficiency. DISPOSITION: Patient will be transferred back to his facility once his INR is between 2.5 and 3.5. VS, I&O, 24H, Fishbone Vital Signs/I&O Vital Signs Date Time Temp Pulse Resp B/P (MAP) Pulse Ox O2 Delivery O2 Flow Rate FiO2 01/26/17 14:08 18 01/26/17 11:18 Room Air 01/26/17 10:43 82 165/75 01/26/17 10:30 98.1 96 01/22/17 04:00 2.0 I&O- Last 24 Hours up to 6 AM 01/26/17 06:00 Intake Total 1860 ml Output Total 1210 ml Balance 650 ml Laboratory Data 24H LABS Laboratory Tests 2 01/26/17 00:25: Activated Partial Thromboplast Time 60.7H 01/26/17 05:31: Activated Partial Thromboplast Time 70.5H, Anion Gap 8, Glomerular Filtration Rate > 60.0, Blood Urea Nitrogen 10, Creatinine 1.30, Sodium Level 142, Potassium Level 4.1, Chloride Level 106, Carbon Dioxide Level 28, Calcium Level 9.4, Magnesium Level 1.5L CBC/BMP Laboratory Tests 01/26/17 05:31 Red Blood Count 3.90 L, Mean Corpuscular Volume 88.9, Mean Corpuscular Hemoglobin 29.9, Mean Corpuscular Hemoglobin Concent 33.6, Red Cell Distribution Width 17.3 H, Calcium Level 9.4 Microbiology Microbiology 01/25/17 Stool Occult Blood (ANTOINE) - Final, Complete 01/24/17 Stool Occult Blood (ANTOINE) - Final, Complete 01/21/17 MRSA Screen - Final, Complete Osmar Go MD Jan 26, 2017 18:43
[2017-01-26] MEDS: AMITRIPTYLINE 25 MG TAB PO SCH (20:39)
[2017-01-26] MEDS: ATORVASTATIN 10 MG TAB PO SCH (20:40)
[2017-01-26 22:00] VITALS: BP 146/78
[2017-01-27 02:00] VITALS: BP 132/67
--- NOTE | 2017-01-27 05:56 | REPKIM ---
DATE OF PROCEDURE: 01/22/2017 PREPROCEDURE DIAGNOSIS: Right axillary and subclavian vein DVT status post PICC line placement, right upper extremity swelling and pain. POSTPROCEDURE DIAGNOSIS: Right axillary and subclavian vein DVT status post PICC line placement, right upper extremity swelling and pain. PROCEDURE: Ultrasound guided right basilic vein cannulation, right upper extremity venogram, placement of a 40 cm infusion catheter with initiation of right upper extremity venous thrombolysis. SURGEON: Dr. Osmar Go. CONTACT CENTER SPECIALIST: Amber Alicea, RT ANESTHESIA: 7 mL of 2% lidocaine. ESTIMATED BLOOD LOSS: FLUORO TIME: CONTRAST: 10 mL. Heparin none. COMPLICATIONS: None. DRAINS: None. SPECIMENS: None. IMPLANTS: None. INDICATION: Patient is a 56-year-old male with osteomyelitis and nonhealing wounds in the left foot who required PICC line placement for IV antibiotic therapy. Patient underwent placement of a basilic vein right upper extremity PICC line with subsequent DVT formation with swelling and pain in the right upper extremity. The PICC line was subsequently removed but the patient has continued to have extensive right upper extremity pain and swelling to the point that he is unable to bend his fingers due to the amount of swelling and pain. Patient will undergo an attempted right upper extremity venous thrombolysis. Risks, benefits and alternative treatment options were discussed with the patient. Benefits included but were not limited to resolution of the thrombosis with decreased venous hypertension and relief of symptoms in the right upper extremity. Alternative treatment options including but were not limited to no intervention. Risks included but were not limited to infection, bleeding, renal failure requiring hemodialysis, possible need for open surgical intervention, failure of the thrombolysis to be successful due to the prolonged period of time since the initiation of the thrombosis, deep venous thrombosis, pulmonary embolus, cerebrovascular accident, myocardial infarction, retroperitoneal hematoma, cerebral hemorrhage, loss of limb, loss of life and poor outcome. Patient's questions were answered. Patient voices understanding of these risks, benefits and alternative treatment options. Patient agrees to proceed with a right upper extremity venous thrombolysis with possible angioplasty and/or stent. PROCEDURE: The patient was taken to the angiography suite and placed supine on the angiography room table and the right upper extremity was prepped and draped in a standard surgical fashion. A time out was completed by myself and the team members within the room confirming the correct patient, procedure and laterality. The ultrasound was then used to evaluate the right upper extremity venous system which showed a significantly dilated cephalic vein. The brachial veins were mildly dilated and the basilic vein was also mildly dilated. Ultrasound was then used to guide cannulation of the basilic vein just above the antecubital fossa with a micropuncture needle after anesthetizing the overlying skin with 2% lidocaine. The cannulation using ultrasound guidance was performed with concurrent ultrasound imaging with visualization of the needle entering into the basilic vein. The micropuncture wire was then advanced through the micropuncture needle which was upsized to a micropuncture sheath. A [place] wire was advanced through the micropuncture sheath which was upsized to a #6-Maltese sheath. A [place] wire was then used to traverse into the axillary vein and at the axillary vein/subclavian vein junction, there was occlusion with inability to pass the wire into the subclavian vein. After multiple attempts without success, the 40 cm infusion catheter was then placed from the puncture site in the basilic vein to the axillary vein/subclavian vein junction and 10 mg of TPA was given through the catheter after which venous thrombolysis was initiated. Catheters were secured and dressings were applied. Patient tolerated the procedure well. All instrument, sponge and needle counts were correct at the end of the case. There were no complications. Dr. Go was present for and directed the entire case. Patient was transferred to the intensive care unit (ICU) for right upper extremity venous thrombolysis. RADIOLOGIC SUPERVISION INTERPRETATION: The initial ultrasound of the right upper extremity showed the cephalic vein to be widely dilated and patent, easily compressible and without thrombus. The basilic vein and brachial veins were patent as well. The ultrasound was used to guide cannulation of the right basilic vein just above the antecubital fossa with ultrasound guidance and concurrent visualization of the needle entering into the basilic vein after which a sheath was placed. Multiple attempts were made to cross the occluded axillary vein/subclavian vein junction but once this was unable to be performed, a 40 cm infusion catheter was placed through the basilic vein into the axillary vein and up to the junction of the subclavian vein and thrombolysis was initiated.
[2017-01-27 06:00] VITALS: BP 166/78
--- NOTE | 2017-01-27 06:21 | REPKIM ---
DATE OF PROCEDURE: 01/25/2017 PREPROCEDURE DIAGNOSIS: Right upper extremity DVT, right upper extremity swelling and pain. POSTPROCEDURE DIAGNOSIS: Right upper extremity DVT, right upper extremity swelling and pain. PROCEDURE: 72 hour right upper extremity venous thrombolysis followup, right upper extremity venogram, selective right subclavian vein catheter placement with venogram, right subclavian vein angioplasty with 8 x 4 and 10 x 4 balloons, right axillary vein angioplasty with 8 x 4 and 10 x 4 balloons. SURGEON: Dr. Osmar Go. UNIVERSAL GRINDER OPERATOR: RT Chelsie ANESTHESIA: Local MAC. ESTIMATED BLOOD LOSS: 25 mL. IV FLUID: 150 mL. HEPARIN: None. COMPLICATIONS: None. DRAINS: None. SPECIMENS: None. IMPLANTS: None. INDICATION: Patient is a 56-year-old male who underwent placement of a right basilic vein PICC line for antibiotic therapy for his osteomyelitis in his left heel. Patient developed DVT and underwent removal of the PICC line and has subsequently had significant pain and swelling in the right upper extremity in spite of anticoagulation with Eliquis. Patient has been undergoing thrombolysis with good result with decreased swelling and decreased pain and increased mobility in the right upper extremity. Patient will now undergo a 72 hour venous thrombolysis followup with possible angioplasty and/or stent. Risks, benefits and alternative treatment options have been discussed with the patient. Benefits included but were not limited to resolution of the thrombosis with resolution of the symptoms in the right upper extremity. Alternative treatment options included but were not limited to no intervention. Risks included but were not limited to infection, bleeding, renal failure requiring hemodialysis, possible need for open surgical intervention, cerebrovascular hemorrhage, retroperitoneal hemorrhage, cerebrovascular accident, myocardial infarction, pulmonary embolus, deep venous thrombosis (DVT), failure of thrombolysis to be successful due to prolonged interval between thrombosis and initiation of thrombolysis, loss of limb, loss of life and poor outcome. Patient's questions were answered. Patient voices understanding of these risks, benefits and alternative treatment options. Patient consents to proceed and accepts these risks. PROCEDURE: The patient was taken to the operating room and placed supine on the operating room table and then prepped and draped in a standard surgical fashion. A time out was then completed by myself and all the team members in the room confirming the correct patient, procedure and laterality. The Benston wire was then advanced through the infusion catheter which was removed and a venogram was performed showing improved collateral flow around the occluded axillary vein/subclavian vein junction. An angle glide wire was then used to recanalize through the axillary vein/subclavian vein junction with entry into the subclavian vein and innominate vein and superior vena cava. A catheter was placed within the superior vena cava and venogram performed confirming intraluminal positioning after crossing the occluded axillary vein/subclavian vein junction. The axillary vein and subclavian vein were than angioplastied with an 8 x 4 balloon with followup venogram showing good result but some residual stenosis. The axillary vein and subclavian vein were further angioplastied with a 10 x 4 balloon with improved flow noted on followup venogram. The catheters and wires were removed. The sheath remained in the basilic vein with infusion of heparin performed through the sheath. The patient will undergo IV heparin drip until he is therapeutic on Coumadin. Dressings were then applied. Patient tolerated the procedure well. All instrument, sponge and needle counts were correct at the end of the case. There were no complications. Dr. Go was present for and directed the entire case. Patient was transferred to the intensive care unit (ICU) in stable condition. RADIOLOGIC SUPERVISION INTERPRETATION: The initial venogram showed continued occlusion of the axillary vein/subclavian vein junction but with a large number of collaterals filling around the occluded axillary vein/subclavian vein junction which were new compared to the previous venogram prior to thrombosis. The occlusion was crossed, the catheter placed in the subclavian vein and a venogram performed confirming intraluminal positioning after which the axillary vein/subclavian vein junction were angioplastied with first an 8 x 4 balloon and then a 10 x 4 balloon due to residual stenosis. A completion venogram showed the axillary vein to be widely patent into the subclavian vein with no residual stenosis or occlusion remaining.
[2017-01-27 07:43] LABS: INR 1.1
[2017-01-27 07:54] LABS: ALBUMIN 3.3 GM/DL (3.2-5.2); ALBUMIN/GLOBULIN RATIO 1.32 (1.00-1.93); ALKALINE PHOSPHATASE 83 U/L (45-117); ALT/SGPT 26 U/L (12-78); ANION GAP 8 MEQ/L (8-16); AST/SGOT 13 U/L (15-37); BILIRUBIN,TOTAL 0.4 MG/DL (0.2-1.0); BLOOD UREA NITROGEN 9 MG/DL (7-18); CALCIUM LEVEL 9.5 MG/DL (8.5-10.1); CARBON DIOXIDE LEVEL 28 MEQ/L (21-32); CHLORIDE LEVEL 103 MEQ/L (98-107); GLOMERULAR FILTRATION RATE > 60.0 (>56); GLUCOSE, FASTING 207 MG/DL (70-105); MAGNESIUM LEVEL 1.6 MG/DL (1.8-2.4); POTASSIUM SERUM 4.1 MEQ/L (3.5-5.1); SODIUM LEVEL 139 MEQ/L (136-145); TOTAL PROTEIN 5.8 GM/DL (6.4-8.2)
[2017-01-27] MEDS: HumaLOG INSULIN (NovoLOG) PER UNIT SC SCH ×4 (08:30→23:12)
[2017-01-27] MEDS: VITAMIN D 1,000 INTERNATIONAL UNITS TABLET PO SCH (08:30)
[2017-01-27] MEDS: oxyCODONE 20 MG CR TAB PO SCH ×2 (08:30→23:27)
[2017-01-27] MEDS ORDERED: HEPARIN SOD (PORCINE) 5000 UNITS/ML VIAL IV ONE (08:30)
[2017-01-27] MEDS: GLIMEPIRIDE 2 MG TAB PO SCH (08:31)
[2017-01-27] MEDS: ENALAPRIL MALEATE 10 MG TAB PO SCH (08:31)
[2017-01-27] MEDS: PRIMIDONE 50 MG TAB PO SCH ×2 (08:31→23:27)
[2017-01-27] MEDS: PANTOPRAZOLE 40MG TAB (PROTONIX) PO SCH (08:32)
[2017-01-27] MEDS: CARVedilol 12.5 MG TAB PO SCH ×2 (08:33→23:29)
[2017-01-27] MEDS: SENOKOT S TAB PO SCH ×2 (08:33→23:12)
[2017-01-27] MEDS: DOCUSATE SODIUM 100 MG CAP PO SCH ×2 (08:33→23:27)
[2017-01-27] MEDS: buPROPion **XL** TABLET 150MG (WELLBUTRIN XL) PO SCH (08:33)
[2017-01-27] MEDS: ALLOPURINOL 300 MG TAB PO SCH (08:33)
[2017-01-27] MEDS: MAGNESIUM OXIDE 400 MG TAB (MAG-OX) PO SCH ×3 (08:33→23:27)
[2017-01-27] MEDS: MULTIVITAMINS/MINERALS THERAP 1 TAB PO SCH (08:33)
[2017-01-27] MEDS: HEPARIN DRIP 25,000 UNITS in APPROPRIATE DILUENT 1 EA IV SCH ×2 (08:44→21:18)
[2017-01-27] MEDS: amLODIPine 5 MG TAB PO SCH ×2 (08:44→23:29)
[2017-01-27] MEDS: MIRALAX *UNIT DOSE* 17GM PACKET PO SCH (08:45)
[2017-01-27] MEDS: oxyCODONE 5MG TAB PO PRN ×2 (12:48→19:45)
[2017-01-27 14:00] VITALS: BP 156/88
[2017-01-27] MEDS ORDERED: MORPHINE 10 MG/ML 1ML VIAL IV ONE (15:30)
[2017-01-27] MEDS: WARFARIN SOD 7.5 MG TAB PO SCH (16:06)
[2017-01-27] MEDS ORDERED: WARFARIN SOD 7.5 MG TAB PO ONE (17:00)
[2017-01-27] MEDS ORDERED: CONRAY-60 60% 50ML VIAL (Q9961) As Ordered ONE (17:35)
[2017-01-27] MEDS: ALTEPLASE RECOMBINANT 25 MG in NS 225 ML XX SCH (18:00)
[2017-01-27] MEDS ORDERED: ALTEPLASE 2 MG/2 ML VIAL (J2997 PER 1MG) XX ONE (18:00)
[2017-01-27] MEDS ORDERED: HEPARIN 25,000 UNITS/250 ML D5W BAG (100 UNITS/ML) As Ordered ONE (20:32)
--- NOTE | 2017-01-27 21:01 | IPNPDOC ---
Date Seen The patient was seen on 01/27/17. Progress Note SUBJECTIVE: Patient is with complaints of swelling and recurrent pain in his right upper extremity. OBJECTIVE PHYSICAL EXAMINATION: VITAL SIGNS: Please see below. GENERAL: Lying in bed with his right arm elevated with mild distress HEENT: Normal CARDIOVASCULAR: Regular rate and rhythm. RESPIRATORY: Clear to auscultation bilaterally. ABDOMINAL: Soft nontender nondistended EXTREMITIES: Right upper extremity with recurrent edema and pain NEUROLOGICAL: Awake alert oriented 3 PSYCHOLOGICAL: Normal LABORATORY DATA: Please see below. MICROBIOLOGY: Please see below. DVT prophylaxis ordered?: Patient currently on a heparin drip ASSESSMENT AND PLAN: This is a 56-year-old male with right upper extremity DVT U underwent frontal lysis with good success and had inadvertent discontinuation of his heparin which has now resulted in recurrent DVT in the right upper extremity. Patient also has wounds in the left foot. PROBLEMS: 1. Right upper extremity DVT: Patient will undergo a repeat venogram with possible repeat thrombo-lysis. 2. Left foot wounds: VAC dressing was placed today. 3. Left lower extremity wounds with possible arterial insufficiency: Patient is scheduled to undergo an arterial duplex to evaluate his arterial inflow to the left lower extremity. VS, I&O, 24H, [facility] Vital Signs/I&O Vital Signs Date Time Temp Pulse Resp B/P (MAP) Pulse Ox O2 Delivery O2 Flow Rate FiO2 01/27/17 19:45 16 01/27/17 14:00 98.0 78 156/88 (110) 95 Room Air 01/22/17 04:00 2.0 I&O- Last 24 Hours up to 6 AM 01/27/17 05:59 Intake Total 1960 ml Output Total 2350 ml Balance -390 ml Laboratory Data 24H LABS Laboratory Tests 2 01/26/17 21:29: Activated Partial Thromboplast Time 51.3H 01/27/17 07:03: Activated Partial Thromboplast Time 52.8H, Prothrombin Time 14.4, Prothromb Time International Ratio 1.10, Anion Gap 8, Glomerular Filtration Rate > 60.0, Blood Urea Nitrogen 9, Creatinine 1.20, Sodium Level 139, Potassium Level 4.1, Chloride Level 103, Carbon Dioxide Level 28, Calcium Level 9.5, Aspartate Amino Transf (AST/SGOT) 13L, Alanine Aminotransferase (ALT/SGPT) 26, Alkaline Phosphatase 83, Total Bilirubin 0.4, Total Protein 5.8L, Albumin 3.3, Magnesium Level 1.6L, Albumin/Globulin Ratio 1.32 01/27/17 14:34: Activated Partial Thromboplast Time 36.7 01/27/17 16:30: Activated Partial Thromboplast Time 43.6H 01/27/17 17:09: Bedside Glucose (Misc Panel) 202H CBC/BMP Laboratory Tests 01/27/17 07:03 Calcium Level 9.5, Aspartate Amino Transf (AST/SGOT) 13 L, Alanine Aminotransferase (ALT/SGPT) 26, Alkaline Phosphatase 83, Total Bilirubin 0.4, Total Protein 5.8 L, Albumin 3.3 Microbiology Microbiology 01/25/17 Stool Occult Blood (ANTOINE) - Final, Complete 01/24/17 Stool Occult Blood (ANTOINE) - Final, Complete 01/21/17 MRSA Screen - Final, Complete Osmar Go MD Jan 27, 2017 21:01
[2017-01-27] MEDS ORDERED: LIDOCAINE 1% SDV INJ 30 ML VIAL As Ordered ONE (21:07)
[2017-01-27] MEDS ORDERED: BUPIVACAINE HCL 0.25% 30 ML VIAL As Ordered ONE (21:07)
[2017-01-27] MEDS ORDERED: HEPARIN SOD (PORCINE) 5000 UNITS/ML VIAL As Ordered ONE (21:07)
[2017-01-27] MEDS ORDERED: MIDAZOLAM INJ 2 MG/2 ML VIAL (J2250) ONE (21:20)
[2017-01-27] MEDS ORDERED: fentaNYL 100 MCG/2 ML INJECTION (J3010) ONE (21:20)
[2017-01-27] MEDS ORDERED: PROPOFOL 200 MG/20 ML VIAL ONE (21:20)
[2017-01-27] MEDS ORDERED: LR 1,000 ML IV SCH (22:00)
[2017-01-27] MEDS ORDERED: fentaNYL 100 MCG/2 ML INJECTION (J3010) IV PRN (22:00)
[2017-01-27 22:23] VITALS: BP 168/86
[2017-01-27] MEDS: ATORVASTATIN 10 MG TAB PO SCH (23:27)
[2017-01-27] MEDS: AMITRIPTYLINE 25 MG TAB PO SCH (23:46)
[2017-01-28] VITALS (7 sets, daily range): BP systolic 133–172; BP diastolic 79–97
[2017-01-28 05:17] LABS: MEAN CORPUSCULAR HEMOGLOBIN 29.6 pg (27.0-33.0); MEAN CORPUSCULAR HGB CONC 33.4 g/dl (32.0-36.5); MEAN CORPUSCULAR VOLUME 88.7 fl (80.0-96.0); RED CELL DISTRIBUTION WIDTH 16.9 % (11.5-14.5); WHITE BLOOD COUNT 9.4 K/mm3 (4.0-10.0)
[2017-01-28 05:28] LABS: INR 1.07
[2017-01-28 05:48] LABS: ANION GAP 7 MEQ/L (8-16); BLOOD UREA NITROGEN 10 MG/DL (7-18); CALCIUM LEVEL 9.1 MG/DL (8.5-10.1); CARBON DIOXIDE LEVEL 29 MEQ/L (21-32); CHLORIDE LEVEL 100 MEQ/L (98-107); CREATININE FOR GFR 1.24 MG/DL (0.70-1.30); GLOMERULAR FILTRATION RATE > 60.0 (>56); GLUCOSE, FASTING 291 MG/DL (70-105); MAGNESIUM LEVEL 1.5 MG/DL (1.8-2.4); POTASSIUM SERUM 4.6 MEQ/L (3.5-5.1); SODIUM LEVEL 136 MEQ/L (136-145)
[2017-01-28] MEDS: HEPARIN DRIP 25,000 UNITS in APPROPRIATE DILUENT 1 EA IV SCH ×2 (06:11→16:16)
[2017-01-28] MEDS: MULTIVITAMINS/MINERALS THERAP 1 TAB PO SCH (09:14)
[2017-01-28] MEDS: DOCUSATE SODIUM 100 MG CAP PO SCH ×2 (09:15→20:25)
[2017-01-28] MEDS: PANTOPRAZOLE 40MG TAB (PROTONIX) PO SCH (09:15)
[2017-01-28] MEDS: ALLOPURINOL 300 MG TAB PO SCH (09:15)
[2017-01-28] MEDS: PRIMIDONE 50 MG TAB PO SCH ×2 (09:15→20:24)
[2017-01-28] MEDS: SENOKOT S TAB PO SCH ×2 (09:15→20:25)
[2017-01-28] MEDS: CARVedilol 12.5 MG TAB PO SCH ×2 (09:16→20:23)
[2017-01-28] MEDS: MAGNESIUM OXIDE 400 MG TAB (MAG-OX) PO SCH ×3 (09:16→20:23)
[2017-01-28] MEDS: amLODIPine 5 MG TAB PO SCH ×2 (09:16→20:26)
[2017-01-28] MEDS: HumaLOG INSULIN (NovoLOG) PER UNIT SC SCH ×4 (09:18→20:19)
[2017-01-28] MEDS: buPROPion **XL** TABLET 150MG (WELLBUTRIN XL) PO SCH (09:26)
[2017-01-28] MEDS: VITAMIN D 1,000 INTERNATIONAL UNITS TABLET PO SCH (09:27)
[2017-01-28] MEDS: oxyCODONE 20 MG CR TAB PO SCH ×2 (09:28→20:22)
[2017-01-28] MEDS: GLIMEPIRIDE 2 MG TAB PO SCH (11:43)
[2017-01-28] MEDS: ENALAPRIL MALEATE 10 MG TAB PO SCH (11:44)
--- NOTE | 2017-01-28 12:56 | IPNPDOC ---
Date Seen The patient was seen on 01/28/17. Progress Note Subjective: Increased right arm redness and swelling since yesterday afternoon found to have reccurent dvt in the right upper extremity. Had repeat thrombolysis and went back to OR yesterday. Physical Exam: Vitals: As below. General: Awake, Alert, no acute distress HEENT: Normocephalic, atraumatic, extraocular movements intact CV: Regular rate and rhythm Lungs: Clear to auscultation bilaterally Abd: Soft, nontender, nondistended Extremities: Left foot with wound vac. Neuro: Alert and oriented 3, normal speech Psych: Normal mood and affect Labs and Radiology: As below. Assessment and Plan: 56-year-old male with diabetes mellitus type 2, hypertension, hyperlipidemia, depression, anxiety, gout, peripheral neuropathy, who is currently residing at [facility] while he finishes 6 weeks of IV antibiotics for osteomyelitis of the left calcaneus who presented to the emergency department with chest pain relieved with nitroglycerin. Since discharge to [facility], the patient experienced a right upper extremity DVT, secondary to his PICC line. Even after the PICC line was moved to the left arm, he was noted to have a second DVT in that arm while on oral anticoagulation, so he was transitioned to Lovenox. 1. Chest pain: Resolved. The patient's cardiac markers have been negative 3. EKG is not indicative of acute infarct or ischemia. CT angio negative for PE. However in view of his multiple risk factors for coronary artery disease will need further evaluation of chest pain as outpatient. He will need to follow-up with the hide or skin buffer for stress testing outpatient. Continue daily aspirin. Echo revealed normal EF, no wall motion abnormalities, and no diastolic dysfunction. 2. 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 Patient is on anticoagulation with heparin with and Coumadin with an INR goal of 2.5-3.5. 3. Recent osteomyelitis of the left calcaneus with non healing ulcer of the left foot : last day of iv vancomycin finished 6 weeks on jan 3. Has wound vac placed. patient will get arterial doppler to look at the blood flow. 4. Diabetes mellitus type 2 with neuropathy : on glimiperide and continue Sliding scale insulin while in-house. continue amitriptyline. 5. Hypertension: Uncontrolled. Continue Norvasc, Coreg, and RUPAL inhibitor and hydralazine prn. 6. Hyperlipidemia: Continue home statin. 7. Depression and anxiety: Continue home Elavil, Wellbutrin. 8. Gout: Not currently active. Continue home allopurinol. 9. Hypomagnesemia: continue scheduled oral Mag-Ox. 10. Morbid obesity and SARAH. : stable at this point. 11. Pulmonary hypertension: moderate to severe. 12. GERD: continue pantoprazole. DVT prophylaxis: Heparin drip and coumadin. VS, I&O, 24H, Fishbone Vital Signs/I&O Vital Signs Date Time Temp Pulse Resp B/P (MAP) Pulse Ox O2 Delivery O2 Flow Rate FiO2 01/28/17 12:00 97.8 86 22 163/79 (107) 95 Room Air 01/22/17 04:00 2.0 I&O- Last 24 Hours up to 6 AM 01/28/17 06:00 Intake Total 1395 ml Output Total 1480 ml Balance -85 ml Laboratory Data 24H LABS Laboratory Tests 2 01/27/17 14:34: Activated Partial Thromboplast Time 36.7 01/27/17 16:30: Activated Partial Thromboplast Time 43.6H 01/27/17 17:09: Bedside Glucose (Misc Panel) 202H 01/27/17 22:57: Bedside Glucose (Misc Panel) 116H 01/27/17 23:04: Erythrocyte Sedimentation Rate 11, Activated Partial Thromboplast Time 48.3H, Fibrinogen 353, C-Reactive Protein, Quantitative 1.51H 01/28/17 04:55: Activated Partial Thromboplast Time 60.6H, Fibrinogen 355, Prothrombin Time 14.0 , Prothromb Time International Ratio 1.07, Anion Gap 7L, Glomerular Filtration Rate > 60.0, Blood Urea Nitrogen 10, Creatinine 1.24, Sodium Level 136, Potassium Level 4.6, Chloride Level 100, Carbon Dioxide Level 29, Calcium Level 9.1, Magnesium Level 1.5L 01/28/17 08:03: Bedside Glucose (Misc Panel) 235H 01/28/17 11:46: Activated Partial Thromboplast Time 66.0H, Fibrinogen 371 CBC/BMP Laboratory Tests 01/27/17 23:04 01/28/17 04:55 Red Blood Count 3.98 L, Mean Corpuscular Volume 88.7, Mean Corpuscular Hemoglobin 29.6, Mean Corpuscular Hemoglobin Concent 33.4, Red Cell Distribution Width 16.9 H, Calcium Level 9.1 Microbiology Microbiology 01/25/17 Stool Occult Blood (ANTOINE) - Final, Complete 01/24/17 Stool Occult Blood (ANTOINE) - Final, Complete 01/21/17 MRSA Screen - Final, Complete GRICELDA OBANDO MD Jan 28, 2017 12:56
--- NOTE | 2017-01-28 13:54 | REPKIM ---
DATE OF PROCEDURE: 01/27/2017 PREPROCEDURE DIAGNOSIS: Right upper extremity swelling, right upper extremity pain, right upper extremity deep venous thrombosis, right upper extremity cellulitis. POSTPROCEDURE DIAGNOSIS: Right upper extremity swelling, right upper extremity pain, right upper extremity deep venous thrombosis, right upper extremity cellulitis. PROCEDURE: Fluoroscopic placement of a right upper extremity infusion catheter with initiation of thrombolysis through pre-existing right basilic vein #6-Ivorian sheath. SURGEON: Dr. Osmar Go. JUNIOR LOAN PROCESSOR: None. ANESTHESIA: Local MAC. ESTIMATED BLOOD LOSS: Minimal. IV FLUID: 300 mL. FLUORO TIME: 0.3 minutes. CONTRAST: None. COMPLICATIONS: None. DRAINS: None. SPECIMENS: None. IMPLANTS: None. TPA: 10 mg bolus. INDICATION: The patient is a 56-year-old male who initially underwent thrombolysis for right upper extremity DVT with subsequent angioplasty of the axillary and subclavian vein junction due to occlusion. Patient had good result and had resolution of the swelling in his right upper extremity. The heparin was inadvertently stopped for a period of approximately 6-8 hours and subsequently the patient has redeveloped swelling and pain in the right upper extremity with cellulitis and recurrent DVT. Patient will undergo a venous thrombolysis with possible angioplasty and/or stent. Risks, benefits and alternative treatment options were discussed with the patient. Benefits included but were not limited to resolution of the deep venous thrombosis and stenosis with relief of symptoms in the right upper extremity. Alternative treatment options included but were not limited to no intervention. Risks included but were not limited to infection, bleeding, renal failure requiring hemodialysis, possible need for open surgical intervention, cerebrovascular accident, retroperitoneal hematoma, myocardial infarction, pulmonary embolus, DVT, loss of limb, loss of life and poor outcome. Patient understands, accepts these risks and consents to proceed. PROCEDURE: The patient was taken to the operating room and placed supine on the operating room table and then the right upper extremity was prepped and draped in a standard surgical fashion. The #6-Ivorian sheath which was already pre-existing in the right brachial vein was then cannulated with an angle glide wire which was advanced up to the axillary vein/subclavian vein junction and there was inability to pass the wire through this region due to recurrent stenosis and/or occlusion and thrombosis. The infusion catheter was then advanced over the angle glide wire up to the junction of the axillary vein and subclavian vein with a 30 cm infusion catheter placed through the #6-Ivorian sheath. A 10 mg bolus of TPA was given through the infusion catheter after which a TPA drip was started at 1 mg an hour. Dressings were applied. Patient tolerated the procedure well. All instrument, sponge and needle counts were correct at the end of the case. There were no complications. Dr. Go was present for and directed the entire case. Patient was transferred to the ICU for right upper extremity venous thrombolysis. RADIOLOGICAL SUPERVISION INTERPRETATION: The fluoroscopy was used to guide placement of the infusion catheter in the axillary vein up to the junction of the subclavian vein but there was inability to pass the catheter through the axillary vein/subclavian vein junction under fluoroscopic guidance. The catheter was positioned in the right upper arm and thrombolysis was initiated. There was no pneumo- or hemothorax noted at the completion of the placement of the infusion catheter.
[2017-01-28] MEDS: oxyCODONE 5MG TAB PO PRN (15:58)
[2017-01-28] MEDS: ACETAMINOPHEN TAB 650MG DOSE (2X325MG) PO PRN (17:56)
[2017-01-28] MEDS: ALTEPLASE RECOMBINANT 25 MG in NS 225 ML XX SCH (20:12)
[2017-01-28] MEDS: AMITRIPTYLINE 25 MG TAB PO SCH (20:25)
[2017-01-28] MEDS: ATORVASTATIN 10 MG TAB PO SCH (20:25)
[2017-01-29] VITALS: BP 164/89
[2017-01-29] MEDS: oxyCODONE 5MG TAB PO PRN ×2 (00:26→11:57)
[2017-01-29] MEDS: HEPARIN DRIP 25,000 UNITS in APPROPRIATE DILUENT 1 EA IV SCH ×3 (02:23→22:40)
[2017-01-29 04:00] VITALS: BP 137/68
[2017-01-29 05:25] LABS: MEAN CORPUSCULAR HEMOGLOBIN 29.3 pg (27.0-33.0); MEAN CORPUSCULAR HGB CONC 32.5 g/dl (32.0-36.5); MEAN CORPUSCULAR VOLUME 90.1 fl (80.0-96.0); WHITE BLOOD COUNT 7.6 K/mm3 (4.0-10.0)
[2017-01-29 05:29] LABS: INR 1.05
[2017-01-29 05:46] LABS: ANION GAP 8 MEQ/L (8-16); BLOOD UREA NITROGEN 10 MG/DL (7-18); CALCIUM LEVEL 9.1 MG/DL (8.5-10.1); CARBON DIOXIDE LEVEL 28 MEQ/L (21-32); CHLORIDE LEVEL 103 MEQ/L (98-107); CREATININE FOR GFR 1.24 MG/DL (0.70-1.30); GLOMERULAR FILTRATION RATE > 60.0 (>56); GLUCOSE, FASTING 290 MG/DL (70-105); MAGNESIUM LEVEL 1.7 MG/DL (1.8-2.4); POTASSIUM SERUM 4.5 MEQ/L (3.5-5.1); SODIUM LEVEL 139 MEQ/L (136-145)
[2017-01-29] MEDS: GLIMEPIRIDE 2 MG TAB PO SCH (07:54)
[2017-01-29] MEDS: HumaLOG INSULIN (NovoLOG) PER UNIT SC SCH ×4 (07:54→21:00)
[2017-01-29 08:00] VITALS: BP 146/83
[2017-01-29] MEDS: MULTIVITAMINS/MINERALS THERAP 1 TAB PO SCH (08:17)
[2017-01-29] MEDS: oxyCODONE 20 MG CR TAB PO SCH ×2 (08:19→22:44)
[2017-01-29] MEDS: buPROPion **XL** TABLET 150MG (WELLBUTRIN XL) PO SCH (08:20)
[2017-01-29] MEDS: PANTOPRAZOLE 40MG TAB (PROTONIX) PO SCH (08:22)
[2017-01-29] MEDS: amLODIPine 5 MG TAB PO SCH ×2 (08:22→22:43)
[2017-01-29] MEDS: ALLOPURINOL 300 MG TAB PO SCH (08:22)
[2017-01-29] MEDS: CARVedilol 12.5 MG TAB PO SCH ×2 (08:22→22:45)
[2017-01-29] MEDS: PRIMIDONE 50 MG TAB PO SCH ×2 (08:22→22:43)
[2017-01-29] MEDS: MAGNESIUM OXIDE 400 MG TAB (MAG-OX) PO SCH ×3 (08:23→22:45)
[2017-01-29] MEDS: ENALAPRIL MALEATE 10 MG TAB PO SCH (08:23)
[2017-01-29] MEDS: VITAMIN D 1,000 INTERNATIONAL UNITS TABLET PO SCH (08:23)
[2017-01-29] MEDS: DOCUSATE SODIUM 100 MG CAP PO SCH ×2 (08:23→22:42)
[2017-01-29] MEDS: SENOKOT S TAB PO SCH ×2 (08:23→22:45)
[2017-01-29] MEDS: MIRALAX *UNIT DOSE* 17GM PACKET PO SCH (08:24)
--- NOTE | 2017-01-29 10:54 | REP ---
Clinical: Left lower extremity nonhealing wound with decreased pedal pulses. Technique: Real time griffith scale and color Doppler evaluation of the left lower extremity arterial vasculature using linear high frequency transducer. Findings: The ankle to brachial index of the left lower extremity is 1.2. Color Doppler interrogation demonstrates normal triphasic wave patterns and velocities from the common femoral vein through the popliteal vein and proximal anterior tibial artery including the profunda femoris artery and visualized descending genicular artery. Monophasic wave patterns with relatively normal velocities are noted through the tibial peroneal trunk, posterior tibial artery and mid to distal anterior tibial artery through the calf to the level of the ankle. Findings are consistent with elements of moderate to significant stenosis through the calf. PSV(cm/sec) LEFT Common femoral artery 111.3 cm/s Profunda femoris artery 82.1 cm/s Proximal superficial femoral artery 123.6 cm/s Mid superficial femoral artery 116.4 cm/s Distal superficial femoral artery 124.8 cm/s Popliteal artery 81.6 cm/s Proximal YAYO 36.3 cm/s Tibioperoneal trunk 75.0 cm/s Proximal AIRPORT MAINTENANCE CHIEF 84.1 cm/s Distal AIRPORT MAINTENANCE CHIEF 95.5 cm/s Distal YAYO 105.9 cm/s Impression: Findings are consistent with moderate to significant stenosis caudally through the calf. Signed by Remy Stanton MD 01/29/2017 10:44 A
[2017-01-29 12:00] VITALS: BP 124/58
[2017-01-29 16:00] VITALS: BP 131/79
[2017-01-29] MEDS: ALTEPLASE RECOMBINANT 25 MG in NS 225 ML XX SCH (18:24)
[2017-01-29 20:00] VITALS: BP 143/65
--- NOTE | 2017-01-29 22:08 | IPNPDOC ---
Date Seen The patient was seen on 01/29/17. Progress Note SUBJECTIVE: Patient is continued pain and swelling in the right upper extremity. The swelling in the right upper extremity has decreased with some mild improvement in the pain. OBJECTIVE PHYSICAL EXAMINATION: VITAL SIGNS: Please see below. GENERAL: Lying in bed asleep and arouses easily and is comfortable HEENT: Normal CARDIOVASCULAR: Regular rate and rhythm. RESPIRATORY: Her to auscultation bilaterally. ABDOMINAL: Soft nontender nondistended EXTREMITIES: Right upper extremity less edematous and swollen. The entry site of the infusion catheter is clean. NEUROLOGICAL: Awake alert oriented x3 with no focal deficits. PSYCHOLOGICAL: Normal LABORATORY DATA: Please see below. MICROBIOLOGY: Please see below. DVT prophylaxis ordered?: Patient is currently on a heparin drip and TPA trip. ASSESSMENT AND PLAN: This is a 56 year old male with a right upper C DVT secondary to a PICC line 1 underwent Carmol lysis with good success but had inadvertent cessation of his heparin drip and had recurrence of his right upper extremity DVT. Patient is currently undergoing repeat thrombolysis with improvement in his right upper extremity pain and swelling. PROBLEMS: 1. right upper extremity DVT: Patient is currently undergoing thrombolysis with improvement flow and decrease swelling and pain in the right upper extremity. Patient will undergo a lysis followup study on 01/30/2017. 2. left foot wounds: Back dressing is in place and the patient is stable. DISPOSITION: Patient currently undergoing right upper extremity venous thrombolysis and requires continued ICU care. VS, I&O, 24H, Tali Vital Signs/I&O Vital Signs Date Time Temp Pulse Resp B/P (MAP) Pulse Ox O2 Delivery O2 Flow Rate FiO2 01/29/17 16:00 99.6 92 17 131/79 (96) 97 Room Air I&O- Last 24 Hours up to 6 AM 01/29/17 06:00 Intake Total 2256 ml Output Total 2750 ml Balance -494 ml Laboratory Data 24H LABS Laboratory Tests 2 01/28/17 22:45: Activated Partial Thromboplast Time 74.2H, Fibrinogen 386 01/29/17 04:42: Activated Partial Thromboplast Time 62.8H, Fibrinogen 389, Prothrombin Time 13.8 , Prothromb Time International Ratio 1.05 01/29/17 04:43: Anion Gap 8, Glomerular Filtration Rate > 60.0, Blood Urea Nitrogen 10, Creatinine 1.24, Sodium Level 139, Potassium Level 4.5, Chloride Level 103, Carbon Dioxide Level 28, Calcium Level 9.1, Magnesium Level 1.7L 01/29/17 11:07: Activated Partial Thromboplast Time 64.8H, Fibrinogen 433 01/29/17 11:51: Bedside Glucose (Misc Panel) 176H 01/29/17 16:55: Bedside Glucose (Misc Panel) 231H 01/29/17 17:16: Activated Partial Thromboplast Time 41.7H, Fibrinogen 429 CBC/BMP Laboratory Tests 01/28/17 22:45 01/29/17 04:43 Red Blood Count 4.07 L, Mean Corpuscular Volume 90.1, Mean Corpuscular Hemoglobin 29.3, Mean Corpuscular Hemoglobin Concent 32.5, Red Cell Distribution Width 17.0 H, Calcium Level 9.1 01/29/17 11:06 01/29/17 17:16 Microbiology Microbiology 01/25/17 Stool Occult Blood (ANTOINE) - Final, Complete 01/24/17 Stool Occult Blood (ANTOINE) - Final, Complete 01/21/17 MRSA Screen - Final, Complete Osmar Go MD Jan 29, 2017 22:08
--- NOTE | 2017-01-29 22:12 | IPNPDOC ---
Date Seen The patient was seen on 01/28/17. Progress Note SUBJECTIVE: Patient is still having right upper extremity swelling and pain in is currently undergoing a right upper extremity venous thrombolysis OBJECTIVE PHYSICAL EXAMINATION: VITAL SIGNS: Please see below. GENERAL: Lying in bed comfortably HEENT: Normal CARDIOVASCULAR: Regular rate and rhythm. RESPIRATORY: Clear to auscultation. ABDOMINAL: Soft nontender nondistended EXTREMITIES: Right upper extremity well perfused with 3+ edema NEUROLOGICAL: Awake alert oriented x3 with no focal deficits PSYCHOLOGICAL: Normal LABORATORY DATA: Please see below. MICROBIOLOGY: Please see below. DVT prophylaxis ordered?: Patient currently on a heparin drip and TPA drip. ASSESSMENT AND PLAN: This is a 56-year-old male with right upper C DVT after undergoing placement of a PICC line for IV antibiotic therapy for his left foot osteomyelitis and wounds. He should underwent thrombolysis of his right upper extremity DVT with angina plasty of his axillary and splenic veins with good result but had inadvertent cessation of his heparin drip resulting in rethrombosis of his right upper extremity. Patient is currently undergoing right upper extremity venous thrombolysis. PROBLEMS: 1. right upper extremity DVT: Patient is currently undergoing thrombolysis with stable hematocrit, fibrinogen and PTT.. 2. left foot wounds: The VAC dressing is in place. DISPOSITION: Patient requires ICU care during venous thrombolysis. VS, [facility]&O, [facility]O Vital Signs Date Time Temp Pulse Resp B/P (MAP) Pulse Ox O2 Delivery O2 Flow Rate FiO2 01/29/17 16:00 99.6 92 17 131/79 (96) 97 Room Air I&O- Last 24 Hours up to 6 AM 01/29/17 06:00 Intake Total 2256 ml Output Total 2750 ml Balance -494 ml Laboratory Data 24H LABS Laboratory Tests 2 01/28/17 22:45: Activated Partial Thromboplast Time 74.2H, Fibrinogen 386 01/29/17 04:42: Activated Partial Thromboplast Time 62.8H, Fibrinogen 389, Prothrombin Time 13.8 , Prothromb Time International Ratio 1.05 01/29/17 04:43: Anion Gap 8, Glomerular Filtration Rate > 60.0, Blood Urea Nitrogen 10, Creatinine 1.24, Sodium Level 139, Potassium Level 4.5, Chloride Level 103, Carbon Dioxide Level 28, Calcium Level 9.1, Magnesium Level 1.7L 01/29/17 11:07: Activated Partial Thromboplast Time 64.8H, Fibrinogen 433 01/29/17 11:51: Bedside Glucose (Misc Panel) 176H 01/29/17 16:55: Bedside Glucose (Misc Panel) 231H 01/29/17 17:16: Activated Partial Thromboplast Time 41.7H, Fibrinogen 429 CBC/BMP Laboratory Tests 01/28/17 22:45 01/29/17 04:43 Red Blood Count 4.07 L, Mean Corpuscular Volume 90.1, Mean Corpuscular Hemoglobin 29.3, Mean Corpuscular Hemoglobin Concent 32.5, Red Cell Distribution Width 17.0 H, Calcium Level 9.1 01/29/17 11:06 01/29/17 17:16 Microbiology Microbiology 01/25/17 Stool Occult Blood (ANTOINE) - Final, Complete 01/24/17 Stool Occult Blood (ANTOINE) - Final, Complete 01/21/17 MRSA Screen - Final, Complete Osmar Go MD Jan 29, 2017 22:12
[2017-01-29] MEDS: ATORVASTATIN 10 MG TAB PO SCH (22:42)
[2017-01-29] MEDS: AMITRIPTYLINE 25 MG TAB PO SCH (22:42)
[2017-01-29 23:29] LABS: MEAN CORPUSCULAR HEMOGLOBIN 29.7 pg (27.0-33.0); MEAN CORPUSCULAR HGB CONC 32.6 g/dl (32.0-36.5); RED CELL DISTRIBUTION WIDTH 16.8 % (11.5-14.5); WHITE BLOOD COUNT 9.4 K/mm3 (4.0-10.0)
[2017-01-30] VITALS: BP 168/94
[2017-01-30] MEDS: oxyCODONE 5MG TAB PO PRN ×3 (02:00→19:28)
[2017-01-30 04:00] VITALS: BP 129/73
[2017-01-30 05:18] LABS: MEAN CORPUSCULAR HEMOGLOBIN 29.7 pg (27.0-33.0); MEAN CORPUSCULAR HGB CONC 32.4 g/dl (32.0-36.5); MEAN CORPUSCULAR VOLUME 91.4 fl (80.0-96.0); RED CELL DISTRIBUTION WIDTH 16.9 % (11.5-14.5); WHITE BLOOD COUNT 8.2 K/mm3 (4.0-10.0)
[2017-01-30 05:23] LABS: INR 1.06
[2017-01-30 05:33] LABS: ANION GAP 8 MEQ/L (8-16); BLOOD UREA NITROGEN 12 MG/DL (7-18); CALCIUM LEVEL 9.8 MG/DL (8.5-10.1); CARBON DIOXIDE LEVEL 28 MEQ/L (21-32); CHLORIDE LEVEL 102 MEQ/L (98-107); CREATININE FOR GFR 1.26 MG/DL (0.70-1.30); GLOMERULAR FILTRATION RATE > 60.0 (>56); GLUCOSE, FASTING 292 MG/DL (70-105); MAGNESIUM LEVEL 1.7 MG/DL (1.8-2.4); POTASSIUM SERUM 4.4 MEQ/L (3.5-5.1); SODIUM LEVEL 138 MEQ/L (136-145)
[2017-01-30] MEDS ORDERED: SODIUM BICARBONATE 8.4% INJ 50 ML SYRINGE IV STA (07:46)
[2017-01-30 08:00] VITALS: BP 144/75
[2017-01-30] MEDS ORDERED: SODIUM BICARBONATE 150 MEQ in D5W 1,000 ML IV SCH (08:00)
[2017-01-30 08:07] LABS: PROTEIN C ANTIGEN 75 % (60-150); PROTEIN S ANTIGEN FREE 84 % (57-157); PROTEIN S ANTIGEN TOTAL 85 % (60-150)
[2017-01-30] MEDS: DOCUSATE SODIUM 100 MG CAP PO SCH ×2 (08:13→20:15)
[2017-01-30] MEDS: PRIMIDONE 50 MG TAB PO SCH ×2 (08:13→20:16)
[2017-01-30] MEDS: ALLOPURINOL 300 MG TAB PO SCH (08:13)
[2017-01-30] MEDS: GLIMEPIRIDE 2 MG TAB PO SCH ×2 (08:13→17:10)
[2017-01-30] MEDS: PANTOPRAZOLE 40MG TAB (PROTONIX) PO SCH (08:13)
[2017-01-30] MEDS: CARVedilol 12.5 MG TAB PO SCH ×2 (08:14→20:15)
[2017-01-30] MEDS: SENOKOT S TAB PO SCH ×2 (08:14→20:14)
[2017-01-30] MEDS: buPROPion **XL** TABLET 150MG (WELLBUTRIN XL) PO SCH (08:15)
[2017-01-30] MEDS: VITAMIN D 1,000 INTERNATIONAL UNITS TABLET PO SCH (08:15)
[2017-01-30] MEDS: oxyCODONE 20 MG CR TAB PO SCH ×2 (08:15→21:29)
[2017-01-30] MEDS: MULTIVITAMINS/MINERALS THERAP 1 TAB PO SCH (08:16)
[2017-01-30] MEDS: amLODIPine 5 MG TAB PO SCH ×2 (08:16→20:16)
[2017-01-30] MEDS: ENALAPRIL MALEATE 10 MG TAB PO SCH (08:16)
[2017-01-30] MEDS: MAGNESIUM OXIDE 400 MG TAB (MAG-OX) PO SCH ×3 (08:16→20:16)
[2017-01-30] MEDS: HumaLOG INSULIN (NovoLOG) PER UNIT SC SCH ×4 (08:17→20:23)
[2017-01-30] MEDS: HEPARIN DRIP 25,000 UNITS in APPROPRIATE DILUENT 1 EA IV SCH ×2 (09:02→21:09)
[2017-01-30 12:00] VITALS: BP 163/70
[2017-01-30] MEDS ORDERED: NYSTATIN 100,000 UNITS/GM TOPICAL PWD 15 GM TOP PRN (13:00)
[2017-01-30 16:00] VITALS: BP 147/84
[2017-01-30] MEDS: ACETAMINOPHEN TAB 650MG DOSE (2X325MG) PO PRN (16:00)
[2017-01-30] MEDS: ALTEPLASE RECOMBINANT 25 MG in NS 225 ML XX SCH (18:22)
[2017-01-30 20:00] VITALS: BP 161/77
[2017-01-30] MEDS: ATORVASTATIN 10 MG TAB PO SCH (20:15)
[2017-01-30] MEDS: AMITRIPTYLINE 25 MG TAB PO SCH (20:16)
--- NOTE | 2017-01-30 23:50 | IPNPDOC ---
Date Seen The patient was seen on 01/30/17. Progress Note SUBJECTIVE: Patient is without complaints, notes the right arm is less swollen and less painful. OBJECTIVE PHYSICAL EXAMINATION: VITAL SIGNS: Please see below. GENERAL: Normal HEENT: Normal CARDIOVASCULAR: Regular rate and rhythm. RESPIRATORY: Clear to auscultation bilaterally. ABDOMINAL: Soft nontender nondistended EXTREMITIES: Right Upper extremity shows good perfusion with decreased swelling and tenderness NEUROLOGICAL: Awake alert oriented x3 PSYCHOLOGICAL: Normal LABORATORY DATA: Please see below. MICROBIOLOGY: Please see below. DVT prophylaxis ordered?: Patient is currently on a heparin drip as well as a TPA drip ASSESSMENT AND PLAN: This is a 56-year-old male with right upper extremity DVT and was undergoing venous thrombus lysis. Fibrinogen and PTT have been stable and PROBLEMS: 1. right upper extremity DVT: Check on currently undergoing a right upper extremity venous lysis with improved symptoms in the right upper extremity and decreased swelling. DISPOSITION: Patient requires continued ICU care drop while undergoing a right upper extremity venous lysis.. [facility], [facility]O, [facility] Vital Signs Date Time Temp Pulse Resp B/P (MAP) Pulse Ox O2 Delivery O2 Flow Rate FiO2 01/30/17 21:29 21 94 Room Air 01/30/17 20:15 83 161/77 01/30/17 20:00 97.8 I&O- Last 24 Hours up to 6 AM 01/30/17 06:00 Intake Total 2762 ml Output Total 1175 ml Balance 1587 ml Laboratory Data 24H LABS Laboratory Tests 2 01/30/17 04:55: Prothrombin Time 13.9, Prothromb Time International Ratio 1.06, Activated Partial Thromboplast Time 65.2H, Fibrinogen 386, Anion Gap 8, Glomerular Filtration Rate > 60.0, Blood Urea Nitrogen 12, Creatinine 1.26, Sodium Level 138, Potassium Level 4.4, Chloride Level 102, Carbon Dioxide Level 28, Calcium Level 9.8, Magnesium Level 1.7L 01/30/17 11:25: Bedside Glucose (Misc Panel) 241H 01/30/17 11:44: Activated Partial Thromboplast Time 59.2H, Fibrinogen 369 01/30/17 16:52: Activated Partial Thromboplast Time 58.4H, Fibrinogen 374 01/30/17 17:04: Bedside Glucose (Misc Panel) 211H 01/30/17 20:12: Bedside Glucose (Misc Panel) 166H 01/30/17 23:09: Activated Partial Thromboplast Time 67.1H, Fibrinogen 334 CBC/BMP Laboratory Tests 01/30/17 04:55 Red Blood Count 3.90 L, Mean Corpuscular Volume 91.4, Mean Corpuscular Hemoglobin 29.7, Mean Corpuscular Hemoglobin Concent 32.4, Red Cell Distribution Width 16.9 H, Calcium Level 9.8 01/30/17 11:44 01/30/17 16:52 01/30/17 23:09 Microbiology Microbiology 01/30/17 Stool Occult Blood (ANTOINE) - Final, Complete 01/29/17 Stool Occult Blood (ANTOINE) - Final, Complete 01/25/17 Stool Occult Blood (ANTOINE) - Final, Complete 01/24/17 Stool Occult Blood (ANTOINE) - Final, Complete 01/21/17 MRSA Screen - Final, Complete Osmar Go MD Jan 30, 2017 23:50
[2017-01-31] VITALS (7 sets, daily range): BP systolic 124–165; BP diastolic 58–85
[2017-01-31 05:53] LABS: MEAN CORPUSCULAR HEMOGLOBIN 29.5 pg (27.0-33.0); MEAN CORPUSCULAR HGB CONC 32.7 g/dl (32.0-36.5); MEAN CORPUSCULAR VOLUME 90.4 fl (80.0-96.0); RED CELL DISTRIBUTION WIDTH 16.4 % (11.5-14.5); WHITE BLOOD COUNT 8.2 K/mm3 (4.0-10.0)
[2017-01-31 05:59] LABS: INR 1.03
[2017-01-31 06:07] LABS: ANION GAP 7 MEQ/L (8-16); BLOOD UREA NITROGEN 10 MG/DL (7-18); CARBON DIOXIDE LEVEL 28 MEQ/L (21-32); CHLORIDE LEVEL 101 MEQ/L (98-107); CREATININE FOR GFR 1.25 MG/DL (0.70-1.30); GLOMERULAR FILTRATION RATE > 60.0 (>56); GLUCOSE, FASTING 241 MG/DL (70-105); MAGNESIUM LEVEL 1.7 MG/DL (1.8-2.4); POTASSIUM SERUM 4.4 MEQ/L (3.5-5.1); SODIUM LEVEL 136 MEQ/L (136-145)
[2017-01-31] MEDS: HEPARIN DRIP 25,000 UNITS in APPROPRIATE DILUENT 1 EA IV SCH ×2 (06:53→17:41)
[2017-01-31] MEDS: HumaLOG INSULIN (NovoLOG) PER UNIT SC SCH ×4 (08:33→21:41)
[2017-01-31] MEDS: PRIMIDONE 50 MG TAB PO SCH ×2 (08:34→20:58)
[2017-01-31] MEDS: VITAMIN D 1,000 INTERNATIONAL UNITS TABLET PO SCH (08:34)
[2017-01-31] MEDS: oxyCODONE 20 MG CR TAB PO SCH ×2 (08:34→21:07)
[2017-01-31] MEDS: MULTIVITAMINS/MINERALS THERAP 1 TAB PO SCH (08:36)
[2017-01-31] MEDS: ALLOPURINOL 300 MG TAB PO SCH (08:36)
[2017-01-31] MEDS: MAGNESIUM OXIDE 400 MG TAB (MAG-OX) PO SCH ×3 (08:36→20:57)
[2017-01-31] MEDS: buPROPion **XL** TABLET 150MG (WELLBUTRIN XL) PO SCH (08:36)
[2017-01-31] MEDS: ENALAPRIL MALEATE 10 MG TAB PO SCH (08:36)
[2017-01-31] MEDS: PANTOPRAZOLE 40MG TAB (PROTONIX) PO SCH (08:37)
[2017-01-31] MEDS: CARVedilol 12.5 MG TAB PO SCH ×2 (08:37→20:57)
[2017-01-31] MEDS: SENOKOT S TAB PO SCH ×2 (08:37→20:57)
[2017-01-31] MEDS: DOCUSATE SODIUM 100 MG CAP PO SCH ×2 (08:37→20:58)
[2017-01-31] MEDS: amLODIPine 5 MG TAB PO SCH ×2 (08:37→20:58)
[2017-01-31] MEDS: GLIMEPIRIDE 2 MG TAB PO SCH ×2 (08:37→17:37)
[2017-01-31] MEDS: MIRALAX *UNIT DOSE* 17GM PACKET PO SCH (08:42)
[2017-01-31] MEDS ORDERED: HEPARIN DRIP 25,000 UNITS in APPROPRIATE DILUENT 1 EA IV SCH (14:03)
[2017-01-31] MEDS: ALTEPLASE RECOMBINANT 25 MG in NS 225 ML XX SCH (18:29)
[2017-01-31] MEDS: ATORVASTATIN 10 MG TAB PO SCH (20:57)
[2017-01-31] MEDS: AMITRIPTYLINE 25 MG TAB PO SCH (21:07)
[2017-02-01] VITALS: BP 153/76
[2017-02-01 02:51] VITALS: BP 157/73
[2017-02-01 04:00] VITALS: BP 126/65
[2017-02-01] MEDS: HEPARIN DRIP 25,000 UNITS in APPROPRIATE DILUENT 1 EA IV SCH ×2 (04:36→15:43)
[2017-02-01] MEDS: oxyCODONE 20 MG CR TAB PO SCH ×2 (07:58→20:58)
[2017-02-01 08:00] VITALS: BP 155/82
[2017-02-01] MEDS: buPROPion **XL** TABLET 150MG (WELLBUTRIN XL) PO SCH (08:20)
[2017-02-01] MEDS: ENALAPRIL MALEATE 10 MG TAB PO SCH (08:20)
[2017-02-01] MEDS: DOCUSATE SODIUM 100 MG CAP PO SCH ×2 (08:20→20:58)
[2017-02-01] MEDS: ALLOPURINOL 300 MG TAB PO SCH (08:21)
[2017-02-01] MEDS: PANTOPRAZOLE 40MG TAB (PROTONIX) PO SCH (08:21)
[2017-02-01] MEDS: MULTIVITAMINS/MINERALS THERAP 1 TAB PO SCH (08:21)
[2017-02-01] MEDS: PRIMIDONE 50 MG TAB PO SCH ×2 (08:21→20:58)
[2017-02-01] MEDS: MAGNESIUM OXIDE 400 MG TAB (MAG-OX) PO SCH ×3 (08:21→20:57)
[2017-02-01] MEDS: amLODIPine 5 MG TAB PO SCH ×2 (08:22→20:59)
[2017-02-01] MEDS: VITAMIN D 1,000 INTERNATIONAL UNITS TABLET PO SCH (08:22)
[2017-02-01] MEDS: GLIMEPIRIDE 2 MG TAB PO SCH ×2 (08:22→18:02)
[2017-02-01] MEDS: CARVedilol 12.5 MG TAB PO SCH ×2 (08:22→21:00)
[2017-02-01] MEDS: SENOKOT S TAB PO SCH ×2 (08:23→20:58)
[2017-02-01] MEDS: HumaLOG INSULIN (NovoLOG) PER UNIT SC SCH ×4 (08:23→21:00)
--- NOTE | 2017-02-01 10:19 | IPNPDOC ---
Date Seen The patient was seen on 02/01/17. Progress Note Subjective: does not offer any new complaints today , right arm swelling and redness slowly improving , left foot appears less red after the wound vac Physical Exam: Vitals: As below. General: Awake, Alert, no acute distress HEENT: Normocephalic, atraumatic, extraocular movements intact CV: Regular rate and rhythm Lungs: Clear to auscultation bilaterally Abd: Soft, nontender, nondistended Extremities: Left foot with wound vac. Neuro: Alert and oriented 3, normal speech Psych: Normal mood and affect Labs and Radiology: As below. Assessment and Plan: 56-year-old male with diabetes mellitus type 2, hypertension, hyperlipidemia, depression, anxiety, gout, peripheral neuropathy, who is currently residing at [facility] while he finishes 6 weeks of IV antibiotics for osteomyelitis of the left calcaneus who presented to the emergency department with chest pain relieved with nitroglycerin. Since discharge to [facility], the patient experienced a right upper extremity DVT, secondary to his PICC line. Even after the PICC line was moved to the left arm, he was noted to have a second DVT in that arm while on oral anticoagulation, so he was transitioned to Lovenox. 1. 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 2.Chest pain: Resolved. The patient's cardiac markers have been negative 3. EKG is not indicative of acute infarct or ischemia. CT angio negative for PE. However in view of his multiple risk factors for coronary artery disease will need further evaluation of chest pain as outpatient. He will need to follow-up with the draw operator for stress testing outpatient. Continue daily aspirin. Echo revealed normal EF, no wall motion abnormalities, and no diastolic dysfunction 3. Recent osteomyelitis of the left calcaneus with non healing ulcer of the left foot : last day of iv vancomycin finished 6 weeks on jan 25. Has wound vac placed. patient will get arterial doppler to look at the blood flow. 4. Diabetes mellitus type 2 with neuropathy : on glimiperide and continue Sliding scale insulin while in-house. continue amitriptyline. glimiredide dosage increased. 5. Hypertension: Uncontrolled. Continue Norvasc, Coreg, and RUPAL inhibitor and hydralazine prn. 6. Hyperlipidemia: Continue home statin. 7. Depression and anxiety: Continue home Elavil, Wellbutrin. 8. Gout: Not currently active. Continue home allopurinol. 9. Hypomagnesemia: continue scheduled oral Mag-Ox. 10. Morbid obesity and SARAH. : stable at this point. 11. Pulmonary hypertension: moderate to severe. 12. GERD: continue pantoprazole. DVT prophylaxis: Heparin drip and coumadin. VS, I&O, 24H, Fishbone Vital Signs/I&O Vital Signs Date Time Temp Pulse Resp B/P (MAP) Pulse Ox O2 Delivery O2 Flow Rate FiO2 02/01/17 08:20 155/82 02/01/17 08:00 98.1 80 18 94 Room Air I&O- Last 24 Hours up to 6 AM 02/01/17 05:59 Intake Total 1618 ml Output Total 1500 ml Balance 118 ml Laboratory Data 24H LABS Laboratory Tests 2 01/31/17 11:10: Bedside Glucose (Misc Panel) 206H 01/31/17 11:20: Activated Partial Thromboplast Time 85.3H, Fibrinogen 295 01/31/17 17:15: Bedside Glucose (Misc Panel) 168H 01/31/17 18:20: Activated Partial Thromboplast Time 69.4H, Fibrinogen 334 01/31/17 21:27: Bedside Glucose (Misc Panel) 274H 01/31/17 23:00: Activated Partial Thromboplast Time 77.4H, Fibrinogen 339 02/01/17 05:02: Activated Partial Thromboplast Time 95.2H, Fibrinogen 263 02/01/17 08:06: Bedside Glucose (Misc Panel) 190H CBC/BMP Laboratory Tests 01/31/17 11:20 01/31/17 18:20 01/31/17 23:00 02/01/17 05:02 Microbiology Microbiology 01/31/17 Stool Occult Blood (ANTOINE) - Final, Complete 01/30/17 Stool Occult Blood (ANTOINE) - Final, Complete 01/29/17 Stool Occult Blood (ANTOINE) - Final, Complete 01/25/17 Stool Occult Blood (ANTOINE) - Final, Complete 01/24/17 Stool Occult Blood (ANTOINE) - Final, Complete GRICELDA OBANDO MD Feb 01, 2017 10:19
[2017-02-01] MEDS: oxyCODONE 5MG TAB PO PRN ×2 (12:42→18:02)
[2017-02-01] MEDS: ALTEPLASE RECOMBINANT 25 MG in NS 225 ML XX SCH (19:41)
[2017-02-01 20:00] VITALS: BP 161/77
[2017-02-01] MEDS: AMITRIPTYLINE 25 MG TAB PO SCH (20:58)
[2017-02-01] MEDS: ATORVASTATIN 10 MG TAB PO SCH (21:00)
--- NOTE | 2017-02-01 23:04 | IPNPDOC ---
Date Seen The patient was seen on 01/31/17. Progress Note SUBJECTIVE: Patient is without complaints, right upper extremity swelling and pain have decreased. OBJECTIVE PHYSICAL EXAMINATION: VITAL SIGNS: Please see below. GENERAL: Lying in bed comfortably HEENT: Normal CARDIOVASCULAR: Regular rate and rhythm. RESPIRATORY: Clear to auscultation bilaterally. ABDOMINAL: Soft nontender nondistended EXTREMITIES: Right upper extremity swelling is less with good perfusion of the right upper extremity. NEUROLOGICAL: Wake alert oriented x3 with no focal deficits PSYCHOLOGICAL: Normal LABORATORY DATA: Please see below. MICROBIOLOGY: Please see below. DVT prophylaxis ordered?: Patient is currently on a heparin drip and TPA drip. ASSESSMENT AND PLAN: This is a 56 old male with right upper family DVT who is currently undergoing a right upper extremity venous from the lysis. PROBLEMS: 1. right upper extremity DVT: Patient currently undergoing from the lysis with improvement in right upper tremor any pain and swelling. PTT and fibrinogen levels have been stable as well as his hematocrit and hemoglobin. 2. left foot wounds: Stable with VAC dressing in place. DISPOSITION: Patient requires continued ICU monitoring while undergoing the right upper extremity venous from the lysis. [facility] V[facility]/I&O Vital Signs Date Time Temp Pulse Resp B/P (MAP) Pulse Ox O2 Delivery O2 Flow Rate FiO2 02/01/17 21:00 88 161/77 02/01/17 20:58 18 02/01/17 20:00 98.6 93 Room Air I&O- Last 24 Hours up to 6 AM 02/01/17 06:00 Intake Total 1988 ml Output Total 2200 ml Balance -212 ml Laboratory Data 24H LABS Laboratory Tests 2 02/01/17 05:02: Activated Partial Thromboplast Time 95.2H, Fibrinogen 263 02/01/17 08:06: Bedside Glucose (Misc Panel) 190H 02/01/17 11:17: Activated Partial Thromboplast Time 59.4H, Fibrinogen 232 02/01/17 11:35: Bedside Glucose (Misc Panel) 272H 02/01/17 16:48: Activated Partial Thromboplast Time 53.0H, Fibrinogen 223 02/01/17 17:00: Bedside Glucose (Misc Panel) 263H 02/01/17 20:35: Bedside Glucose (Misc Panel) 217H CBC/BMP Laboratory Tests 02/01/17 05:02 02/01/17 11:17 02/01/17 16:48 Microbiology Microbiology 01/31/17 Stool Occult Blood (ANTOINE) - Final, Complete 01/30/17 Stool Occult Blood (ANTOINE) - Final, Complete 01/29/17 Stool Occult Blood (ANTOINE) - Final, Complete 01/25/17 Stool Occult Blood (ANTOINE) - Final, Complete 01/24/17 Stool Occult Blood (ANTOINE) - Final, Complete Osmar Go MD Feb 01, 2017 23:04
--- NOTE | 2017-02-01 23:08 | IPNPDOC ---
Date Seen The patient was seen on 02/01/17. Progress Note SUBJECTIVE: Patient is without complaints. OBJECTIVE PHYSICAL EXAMINATION: VITAL SIGNS: Please see below. GENERAL: Lying in bed comfortably HEENT: Normal CARDIOVASCULAR: Regular rate and rhythm. RESPIRATORY: Clear to auscultation bilaterally. ABDOMINAL: Soft nontender nondistended EXTREMITIES: Right upper extremity swelling and pain are significantly decreased there are still some mild cellulitis in the inner right upper arm. NEUROLOGICAL: Awake alert oriented x3 with no focal deficits. PSYCHOLOGICAL: Normal LABORATORY DATA: Please see below. MICROBIOLOGY: Please see below. DVT prophylaxis ordered?: H is currently on a heparin drip as well as TPA drip. ASSESSMENT AND PLAN: This is a 56-year-old male with right upper extremity venous thrombi lysis for right upper extremity DVT who is improving and doing well with the thrombi lysis. PROBLEMS: 1. right upper extremity DVT: Swelling is decreasing pain is decreasing and the patient has had good results with his heparin and TPA drip. 2. left lower extremity wounds: VAC dressing in place. DISPOSITION: Patient requires continued ICU care while undergoing right upper extremity venous lumbar lysis. VS, I&O, 24H, [facility] Vital Signs/I&O Vital Signs Date Time Temp Pulse Resp B/P (MAP) Pulse Ox O2 Delivery O2 Flow Rate FiO2 02/01/17 21:00 88 161/77 02/01/17 20:58 18 02/01/17 20:00 98.6 93 Room Air I&O- Last 24 Hours up to 6 AM 02/01/17 06:00 Intake Total 1988 ml Output Total 2200 ml Balance -212 ml Laboratory Data 24H LABS Laboratory Tests 2 02/01/17 05:02: Activated Partial Thromboplast Time 95.2H, Fibrinogen 263 02/01/17 08:06: Bedside Glucose (Misc Panel) 190H 02/01/17 11:17: Activated Partial Thromboplast Time 59.4H, Fibrinogen 232 02/01/17 11:35: Bedside Glucose (Misc Panel) 272H 02/01/17 16:48: Activated Partial Thromboplast Time 53.0H, Fibrinogen 223 02/01/17 17:00: Bedside Glucose (Misc Panel) 263H 02/01/17 20:35: Bedside Glucose (Misc Panel) 217H CBC/BMP Laboratory Tests 02/01/17 05:02 02/01/17 11:17 02/01/17 16:48 Microbiology Microbiology 01/31/17 Stool Occult Blood (ANTOINE) - Final, Complete 01/30/17 Stool Occult Blood (ANTOINE) - Final, Complete 01/29/17 Stool Occult Blood (ANTOINE) - Final, Complete 01/25/17 Stool Occult Blood (ANTOINE) - Final, Complete 01/24/17 Stool Occult Blood (ANTOINE) - Final, Complete Osmar Go MD Feb 01, 2017 23:08
[2017-02-02] VITALS: BP 157/85
[2017-02-02] MEDS: oxyCODONE 5MG TAB PO PRN ×2 (01:28→05:12)
[2017-02-02 04:00] VITALS: BP 159/80
[2017-02-02] MEDS: HEPARIN DRIP 25,000 UNITS in APPROPRIATE DILUENT 1 EA IV SCH ×3 (05:12→23:08)
[2017-02-02 05:25] LABS: FIBRINOGEN 182 MG/DL (221-452)
[2017-02-02] MEDS: MIRALAX *UNIT DOSE* 17GM PACKET PO SCH (09:00)
[2017-02-02] MEDS: HumaLOG INSULIN (NovoLOG) PER UNIT SC SCH ×4 (09:04→21:00)
[2017-02-02] MEDS: oxyCODONE 20 MG CR TAB PO SCH ×2 (09:05→21:36)
[2017-02-02] MEDS: buPROPion **XL** TABLET 150MG (WELLBUTRIN XL) PO SCH (09:05)
[2017-02-02] MEDS: ALLOPURINOL 300 MG TAB PO SCH (09:05)
[2017-02-02] MEDS: GLIMEPIRIDE 2 MG TAB PO SCH ×2 (09:05→17:30)
[2017-02-02] MEDS: PRIMIDONE 50 MG TAB PO SCH ×2 (09:05→21:34)
[2017-02-02] MEDS: VITAMIN D 1,000 INTERNATIONAL UNITS TABLET PO SCH (09:06)
[2017-02-02] MEDS: DOCUSATE SODIUM 100 MG CAP PO SCH ×2 (09:06→21:34)
[2017-02-02] MEDS: PANTOPRAZOLE 40MG TAB (PROTONIX) PO SCH (09:06)
[2017-02-02] MEDS: MAGNESIUM OXIDE 400 MG TAB (MAG-OX) PO SCH ×3 (09:06→21:32)
[2017-02-02] MEDS: CARVedilol 12.5 MG TAB PO SCH ×2 (09:07→21:34)
[2017-02-02] MEDS: SENOKOT S TAB PO SCH ×2 (09:07→21:34)
[2017-02-02] MEDS: amLODIPine 5 MG TAB PO SCH ×2 (09:07→21:33)
[2017-02-02] MEDS: ENALAPRIL MALEATE 10 MG TAB PO SCH (09:07)
[2017-02-02] MEDS: MULTIVITAMINS/MINERALS THERAP 1 TAB PO SCH (09:07)
[2017-02-02 12:00] VITALS: BP 141/65
[2017-02-02] MEDS ORDERED: ISOVUE-300 61% 50ML VIAL (Q9967) As Ordered ONE (18:52)
[2017-02-02] MEDS ORDERED: PERCOCET 5MG/325MG TAB As Ordered ONE (18:52)
[2017-02-02] MEDS ORDERED: MIDAZOLAM INJ 2 MG/2 ML VIAL (J2250) As Ordered ONE (19:42)
[2017-02-02] MEDS ORDERED: fentaNYL 100 MCG/2 ML INJECTION (J3010) As Ordered ONE (19:42)
[2017-02-02] MEDS ORDERED: HEPARIN 1,000 UNITS/ML 10ML VIAL (FOR RADIOLOGY& DIALYSIS ONLY) As Ordered ONE (19:47)
[2017-02-02 21:00] VITALS: BP 137/77
[2017-02-02] MEDS: AMITRIPTYLINE 25 MG TAB PO SCH (21:32)
[2017-02-02] MEDS: ATORVASTATIN 10 MG TAB PO SCH (21:33)
--- NOTE | 2017-02-02 23:09 | IPNPDOC ---
Date Seen The patient was seen on 02/02/17. Progress Note SUBJECTIVE: Patient is without complaints with improvement in his right upper extremities swelling and pain. OBJECTIVE PHYSICAL EXAMINATION: VITAL SIGNS: Please see below. GENERAL: Lying in bed comfortably HEENT: Normal CARDIOVASCULAR: Regular rate and rhythm. RESPIRATORY: Clear to auscultation bilaterally. ABDOMINAL: Soft nontender nondistended EXTREMITIES: Right upper extremity swelling is improved patient has completed his right upper extremity venous trouble lysis. Patient now has swelling in the left lower extremities will undergo a venous duplex to evaluate for etiology of the swelling in the lower extremity. NEUROLOGICAL: Awake alert oriented x3 with no focal deficits PSYCHOLOGICAL: Normal LABORATORY DATA: Please see below. MICROBIOLOGY: Please see below. DVT prophylaxis ordered?: She is currently on a heparin drip ASSESSMENT AND PLAN: This is a 56 field male with right upper extremities DVT in the completed his right venous trouble lysis with angioplasty of his right axillary and subclavian vein. Patient has new left lower artery swelling all undergone ultrasound. PROBLEMS: 1. right upper extremity DVT: Lysis is completed and the patient is on a heparin drip and will be converted to Coumadin. 2. left lower extremity swelling: Patient will undergo a left floor reaction to evaluate for possible DVT. DISPOSITION: Patient will remain in ICU with possible transfer to the floor in a.m. VS, I&O, 24H, [facility] Vital Signs/I&O Vital Signs Date Time Temp Pulse Resp B/P (MAP) Pulse Ox O2 Delivery O2 Flow Rate FiO2 02/02/17 21:36 20 97 Room Air 02/02/17 21:34 77 137/77 02/02/17 12:00 97.3 I&O- Last 24 Hours up to 6 AM 02/02/17 06:00 Intake Total 1898 ml Output Total 1850 ml Balance 48 ml Laboratory Data 24H LABS Laboratory Tests 2 02/02/17 04:49: Activated Partial Thromboplast Time > 240.0*H, Fibrinogen 182L 02/02/17 07:36: Bedside Glucose (Misc Panel) 155H 02/02/17 11:15: Activated Partial Thromboplast Time 45.6H, Fibrinogen 165L 02/02/17 12:01: Bedside Glucose (Misc Panel) 193H 02/02/17 21:58: Bedside Glucose (Misc Panel) 175H CBC/BMP Laboratory Tests 02/02/17 04:49 02/02/17 11:15 Microbiology Microbiology 01/31/17 Stool Occult Blood (ANTOINE) - Final, Complete 01/30/17 Stool Occult Blood (ANTOINE) - Final, Complete 01/29/17 Stool Occult Blood (ANTOINE) - Final, Complete 01/25/17 Stool Occult Blood (ANTOINE) - Final, Complete 01/24/17 Stool Occult Blood (ANTOINE) - Final, Complete Osmar Go MD Feb 02, 2017 23:09
[2017-02-03] VITALS: BP 149/68
--- NOTE | 2017-02-03 00:30 | REPUSA ---
CLINICAL HISTORY: Edema. COMMENTS: Real time sonography with duplex doppler of the left lower extremity was performed with attention to the major deep venous structures. Evaluation reveals the left common femoral, superficial femoral and popliteal veins to be completely compressible without intraluminal thrombus. There is normal spontaneous phasic flow and augmentation. The greater saphenous/common femoral vein junction is patent. IMPRESSION: No evidence of DVT in left lower extremity.. Thank you for your kind referral of this patient.
[2017-02-03] MEDS: oxyCODONE 5MG TAB PO PRN ×4 (03:06→17:20)
[2017-02-03 04:00] VITALS: BP 137/76
[2017-02-03] MEDS: HEPARIN DRIP 25,000 UNITS in APPROPRIATE DILUENT 1 EA IV SCH ×2 (06:33→16:31)
[2017-02-03] MEDS: GLIMEPIRIDE 2 MG TAB PO SCH ×2 (07:15→17:47)
[2017-02-03] MEDS: HumaLOG INSULIN (NovoLOG) PER UNIT SC SCH ×4 (07:30→20:54)
[2017-02-03 08:00] VITALS: BP 129/77
[2017-02-03] MEDS: oxyCODONE 20 MG CR TAB PO SCH ×2 (08:06→20:47)
[2017-02-03] MEDS: CARVedilol 12.5 MG TAB PO SCH ×2 (08:06→20:46)
[2017-02-03] MEDS: VITAMIN D 1,000 INTERNATIONAL UNITS TABLET PO SCH (08:07)
[2017-02-03] MEDS: PRIMIDONE 50 MG TAB PO SCH ×2 (08:07→20:45)
[2017-02-03] MEDS: ENALAPRIL MALEATE 10 MG TAB PO SCH (08:07)
[2017-02-03] MEDS: DOCUSATE SODIUM 100 MG CAP PO SCH ×2 (08:07→20:44)
[2017-02-03] MEDS: PANTOPRAZOLE 40MG TAB (PROTONIX) PO SCH (08:08)
[2017-02-03] MEDS: SENOKOT S TAB PO SCH ×2 (08:08→20:45)
[2017-02-03] MEDS: ALLOPURINOL 300 MG TAB PO SCH (08:08)
[2017-02-03] MEDS: buPROPion **XL** TABLET 150MG (WELLBUTRIN XL) PO SCH (08:08)
[2017-02-03] MEDS: amLODIPine 5 MG TAB PO SCH ×2 (08:08→20:44)
[2017-02-03] MEDS: MULTIVITAMINS/MINERALS THERAP 1 TAB PO SCH (08:08)
[2017-02-03] MEDS: MAGNESIUM OXIDE 400 MG TAB (MAG-OX) PO SCH ×3 (08:09→20:45)
[2017-02-03 09:44] LABS: INR 1.12
[2017-02-03 12:00] VITALS: BP 123/58
[2017-02-03 14:57] LABS: INR 1.1
[2017-02-03 16:00] VITALS: BP 130/60
[2017-02-03] MEDS: WARFARIN SOD 7.5 MG TAB PO SCH (17:56)
--- NOTE | 2017-02-03 19:18 | IPNPDOC ---
Date Seen The patient was seen on 02/03/17. Progress Note Hospitalist Progress Note Subjective: Patient states that his left leg has begun to swell. Objective: Physical Exam: Vitals: Vital Sign - Last 24 Hours 02/02/17 02/02/17 02/02/17 02/02/17 21:00 21:00 21:33 21:34 Temp 97.4 Pulse 72 79 77 Resp 20 B/P (MAP) 137/77 (97) 137/77 137/77 Pulse Ox 95 O2 Delivery Room Air Room Air 02/02/17 02/03/17 02/03/17 02/03/17 21:36 00:00 03:06 04:00 Temp 98.7 98.0 Pulse 78 65 Resp 20 20 20 18 B/P (MAP) 149/68 (95) 137/76 (96) Pulse Ox 97 96 97 93 O2 Delivery Room Air Room Air Room Air Room Air 02/03/17 02/03/17 02/03/17 02/03/17 07:16 08:00 08:00 08:06 Temp 98.1 Pulse 81 Resp 18 18 18 B/P (MAP) 129/77 (94) Pulse Ox 97 96 96 O2 Delivery Room Air Room Air Room Air 02/03/17 02/03/17 02/03/17 02/03/17 08:06 12:00 12:56 13:26 Temp 97.7 Pulse 81 76 Resp 17 26 B/P (MAP) 123/58 (79) Pulse Ox 94 92 O2 Delivery Room Air Room Air 02/03/17 02/03/17 02/03/17 16:00 17:20 17:50 Temp 98.2 Pulse 75 Resp 23 26 26 B/P (MAP) 130/60 (83) Pulse Ox 96 94 96 O2 Delivery Room Air General: Awake, Alert, no acute distress HEENT: Normocephalic, atraumatic, extraocular movements intact CV: Regular rate and rhythm Lungs: Clear to auscultation bilaterally Abd: Soft, nontender, nondistended Extremities: Left foot with wound vac; left leg tight and swollen Neuro: Alert and oriented 3, normal speech Psych: Normal mood and affect Labs and Imaging: Reviewed in EMR Assessment and Plan: 56-year-old male with diabetes mellitus type 2, hypertension, hyperlipidemia, depression, anxiety, gout, peripheral neuropathy, recent osteomyelitis of the left calcaneus who presented to the emergency department with chest pain relieved with nitroglycerin. Since discharge with PICC and IV antibiotics, the patient experienced a right upper extremity DVT, secondary to his PICC line. Even after the PICC line was moved to the left arm, he was noted to have a second DVT in that arm while on oral anticoagulation, so he was transitioned to Lovenox. He has now undergone thrombolysis and has been transferred to Dr. Go 's service. Unfortunately, over the weekend, his heparin drip was inadvertently stopped, and he developed another DVT. He has now undergone a second episode of thrombolysis for that DVT 1. Chest pain: The patient's cardiac markers have been negative 3. EKG is not indicative of acute infarct or ischemia. Echo shows normal EF, no wall motion abnormalities, and no diastolic dysfunction. The patient will continue to be monitored on telemetry, and he will need to follow-up with the structural technician for stress testing outpatient. Pain is now resolved. 2. Right upper extremity DVTs: Management as per Dr. Go. Currently on heparin drip transitioning to Coumadin. Hypercoagulability workup pending. 3. Recent osteomyelitis of the left calcaneus: Status post 6 weeks of vancomycin. Continue wound VAC. 4. Diabetes mellitus type 2: Continue home glimepiride. Sliding scale insulin while in-house. 5. Hypertension: Continue Norvasc, Coreg, RUPAL inhibitor. 6. Hyperlipidemia: Continue home statin. 7. Depression and anxiety: Continue home Elavil, Wellbutrin. 8. Gout: Not currently active. Continue home allopurinol. 9. Hypomagnesemia: On recent admission, patient required multiple IV replacement. Continue scheduled oral Mag-Ox. 10. Left lower extremity swelling: The patient does not appear to have a cellulitis. Left lower extremity Dopplers negative for DVT. However, an arterial ultrasound does show moderate to significant stenosis. We will defer management of this to Dr. Go. DVT prophylaxis: Heparin drip and Coumadin Dispo: as per the plan of his primary team. VS, I&O, 24H, [facility] Vital Signs/I&O Vital Signs Date Time Temp Pulse Resp B/P (MAP) Pulse Ox O2 Delivery O2 Flow Rate FiO2 02/03/17 17:50 26 96 02/03/17 16:00 98.2 75 130/60 (83) Room Air I&O- Last 24 Hours up to 6 AM 02/03/17 06:00 Intake Total 1706 ml Output Total 1175 ml Balance 531 ml Laboratory Data 24H LABS Laboratory Tests 2 02/02/17 21:58: Bedside Glucose (Misc Panel) 175H 02/03/17 02:47: Activated Partial Thromboplast Time 86.1H 02/03/17 09:11: Activated Partial Thromboplast Time 72.9H, Prothrombin Time 14.6H, Prothromb Time International Ratio 1.12 02/03/17 11:55: Bedside Glucose (Misc Panel) 141H 02/03/17 14:44: Prothrombin Time 14.4, Prothromb Time International Ratio 1.10, Activated Partial Thromboplast Time 80.7H 02/03/17 17:05: Bedside Glucose (Misc Panel) 197H Microbiology Microbiology 02/03/17 Stool Occult Blood (ANTOINE), Received Pending 01/31/17 Stool Occult Blood (ANTOINE) - Final, Complete 01/30/17 Stool Occult Blood (ANTOINE) - Final, Complete 01/29/17 Stool Occult Blood (ANTOINE) - Final, Complete 01/25/17 Stool Occult Blood (ANTOINE) - Final, Complete 01/24/17 Stool Occult Blood (ANTOINE) - Final, Complete DARLIN BURCIAGA Feb 03, 2017 19:18
[2017-02-03 20:00] VITALS: BP 148/79
[2017-02-03] MEDS: ATORVASTATIN 10 MG TAB PO SCH (20:45)
[2017-02-03] MEDS: AMITRIPTYLINE 25 MG TAB PO SCH (20:47)
[2017-02-03 21:35] LABS: INR 1.06
--- NOTE | 2017-02-03 23:37 | IPNPDOC ---
Date Seen The patient was seen on 02/03/17. Progress Note SUBJECTIVE: Patient is without complaints OBJECTIVE PHYSICAL EXAMINATION: VITAL SIGNS: Please see below. GENERAL: Lying in bed comfortably HEENT: Normal CARDIOVASCULAR: Regular rate and rhythm. RESPIRATORY: Clear to auscultation bilaterally. ABDOMINAL: Soft nontender nondistended EXTREMITIES: Warm well perfused. Right upper extremity with mild edema and minimal pain NEUROLOGICAL: Awake alert oriented x3 PSYCHOLOGICAL: Normal LABORATORY DATA: Please see below. MICROBIOLOGY: Please see below. DVT prophylaxis ordered?: Patient currently on a heparin drip ASSESSMENT AND PLAN: This is a 56-year-old male with a right upper extremity DVT after a PICC line placement who has undergone successful thrombolysis. PROBLEMS: 1. right upper extremity DVT: She has undergone thrombolysis and is now on a heparin drip and will be converted to Coumadin therapy. 2. left lower extremity swelling: Left lower extremity venous duplex was negative for DVT swelling most likely related to his left foot wounds. DISPOSITION: Patient stable and will be able to be transferred out of the ICU. VS, I&O, 24H, [facility] Vital Signs/I&O Vital Signs Date Time Temp Pulse Resp B/P (MAP) Pulse Ox O2 Delivery O2 Flow Rate FiO2 02/03/17 20:47 18 97 02/03/17 20:46 78 148/79 02/03/17 20:00 98.7 Room Air I&O- Last 24 Hours up to 6 AM 02/03/17 06:00 Intake Total 1706 ml Output Total 1175 ml Balance 531 ml Laboratory Data 24H LABS Laboratory Tests 2 02/03/17 02:47: Activated Partial Thromboplast Time 86.1H 02/03/17 09:11: Activated Partial Thromboplast Time 72.9H, Prothrombin Time 14.6H, Prothromb Time International Ratio 1.12 02/03/17 11:55: Bedside Glucose (Misc Panel) 141H 02/03/17 14:44: Activated Partial Thromboplast Time 80.7H, Prothrombin Time 14.4, Prothromb Time International Ratio 1.10 02/03/17 17:05: Bedside Glucose (Misc Panel) 197H 02/03/17 20:53: Bedside Glucose (Misc Panel) 234H 02/03/17 21:13: Prothrombin Time 13.9, Prothromb Time International Ratio 1.06, Activated Partial Thromboplast Time 85.3H Microbiology Microbiology 02/03/17 Stool Occult Blood (ANTOINE) - Final, Complete 01/31/17 Stool Occult Blood (ANTOINE) - Final, Complete 01/30/17 Stool Occult Blood (ANTOINE) - Final, Complete 01/29/17 Stool Occult Blood (ANTOINE) - Final, Complete 01/25/17 Stool Occult Blood (ANTOINE) - Final, Complete 01/24/17 Stool Occult Blood (ANTOINE) - Final, Complete Osmar Go MD Feb 03, 2017 23:37
[2017-02-04] VITALS: BP 156/87
[2017-02-04 00:06] LABS: SJOGREN'S ANTI SS-A <0.2 AI (0.0-0.9); SJOGREN'S ANTI SS-B <0.2 AI (0.0-0.9)
[2017-02-04] MEDS: HEPARIN DRIP 25,000 UNITS in APPROPRIATE DILUENT 1 EA IV SCH ×2 (02:57→13:47)
[2017-02-04] MEDS: oxyCODONE 5MG TAB PO PRN ×3 (03:00→17:45)
[2017-02-04 03:14] LABS: BASO # 0.1 K/mm3 (0.0-0.2); EOS # 0.5 K/mm3 (0.0-0.50); EOS % 7.9 % (0.0-3.0); LARGE UNSTAINED CELL # 0.3 K/mm3 (0.0-0.4); LARGE UNSTAINED CELL % 4.2 % (0.0-4.0); LYMPH # 1.8 K/mm3 (1.5-4.5); LYMPH % 26.3 % (24.0-44.0); MEAN CORPUSCULAR HEMOGLOBIN 29.4 pg (27.0-33.0); MEAN CORPUSCULAR HGB CONC 33.3 g/dl (32.0-36.5); MEAN CORPUSCULAR VOLUME 88.2 fl (80.0-96.0); MONO # 0.3 K/mm3 (0.0-0.8); MONO % 4.1 % (0.0-5.0); NEUTROPHILS # 3.8 K/mm3 (1.8-7.7); NEUTROPHILS % 56.5 % (36.0-66.0); PLATELET COUNT, AUTOMATED 361 k/mm3 (150-450); RED CELL DISTRIBUTION WIDTH 16.1 % (11.5-14.5); WHITE BLOOD COUNT 6.8 K/mm3 (4.0-10.0)
[2017-02-04 03:21] LABS: INR 1.07
[2017-02-04 03:27] LABS: ANION GAP 9 MEQ/L (8-16); BLOOD UREA NITROGEN 11 MG/DL (7-18); CALCIUM LEVEL 9.3 MG/DL (8.5-10.1); CARBON DIOXIDE LEVEL 28 MEQ/L (21-32); CHLORIDE LEVEL 104 MEQ/L (98-107); GLOMERULAR FILTRATION RATE > 60.0 (>56); GLUCOSE, FASTING 184 MG/DL (70-105); MAGNESIUM LEVEL 1.7 MG/DL (1.8-2.4); POTASSIUM SERUM 4.2 MEQ/L (3.5-5.1); SODIUM LEVEL 141 MEQ/L (136-145)
[2017-02-04 04:00] VITALS: BP 144/74
[2017-02-04] MEDS: MAG SULF 1GM/100ML (MAG RUN) 1 GM in APPROPRIATE DILUENT 1 EA IV SCH ×2 (07:33→09:06)
[2017-02-04] MEDS: GLIMEPIRIDE 2 MG TAB PO SCH ×2 (07:33→17:14)
[2017-02-04] MEDS: HumaLOG INSULIN (NovoLOG) PER UNIT SC SCH ×4 (07:34→21:00)
[2017-02-04 08:00] VITALS: BP 164/90
[2017-02-04] MEDS: MIRALAX *UNIT DOSE* 17GM PACKET PO SCH (09:00)
[2017-02-04] MEDS: VITAMIN D 1,000 INTERNATIONAL UNITS TABLET PO SCH (09:07)
[2017-02-04] MEDS: oxyCODONE 20 MG CR TAB PO SCH ×2 (09:07→21:11)
[2017-02-04] MEDS: ENALAPRIL MALEATE 10 MG TAB PO SCH (09:09)
[2017-02-04] MEDS: PRIMIDONE 50 MG TAB PO SCH ×2 (09:09→21:12)
[2017-02-04] MEDS: DOCUSATE SODIUM 100 MG CAP PO SCH ×2 (09:09→21:16)
[2017-02-04] MEDS: MULTIVITAMINS/MINERALS THERAP 1 TAB PO SCH (09:10)
[2017-02-04] MEDS: CARVedilol 12.5 MG TAB PO SCH ×2 (09:10→21:14)
[2017-02-04] MEDS: SENOKOT S TAB PO SCH ×2 (09:10→21:15)
[2017-02-04] MEDS: ALLOPURINOL 300 MG TAB PO SCH (09:10)
[2017-02-04] MEDS: PANTOPRAZOLE 40MG TAB (PROTONIX) PO SCH (09:10)
[2017-02-04] MEDS: MAGNESIUM OXIDE 400 MG TAB (MAG-OX) PO SCH ×3 (09:10→21:13)
[2017-02-04] MEDS: amLODIPine 5 MG TAB PO SCH ×2 (09:10→21:15)
[2017-02-04] MEDS: buPROPion **XL** TABLET 150MG (WELLBUTRIN XL) PO SCH (09:10)
[2017-02-04 09:45] LABS: INR 1.07
[2017-02-04 12:00] VITALS: BP 120/64
[2017-02-04] MEDS: ACETAMINOPHEN TAB 650MG DOSE (2X325MG) PO PRN (13:55)
[2017-02-04 15:55] LABS: INR 1.07
[2017-02-04 16:00] VITALS: BP 142/81
[2017-02-04] MEDS: WARFARIN SOD 7.5 MG TAB PO SCH (17:15)
[2017-02-04 20:00] VITALS: BP 138/78
[2017-02-04] MEDS: AMITRIPTYLINE 25 MG TAB PO SCH (21:12)
[2017-02-04] MEDS: ATORVASTATIN 10 MG TAB PO SCH (21:13)
--- NOTE | 2017-02-04 22:17 | IPNPDOC ---
Date Seen The patient was seen on 02/04/17. Progress Note SUBJECTIVE: Patient is without complaints. Pain in the right upper extremity is minimal and there is minimal swelling as well. OBJECTIVE PHYSICAL EXAMINATION: VITAL SIGNS: Please see below. GENERAL: Lying in bed comfortably HEENT: Normal CARDIOVASCULAR: Regular rate and rhythm. RESPIRATORY: Clear to auscultation bilaterally. ABDOMINAL: Soft nontender nondistended EXTREMITIES: Right upper extremity is well-perfused with 1+ edema and minimal pain. NEUROLOGICAL: Awake alert oriented x3 PSYCHOLOGICAL: Normal LABORATORY DATA: Please see below. MICROBIOLOGY: Please see below. DVT prophylaxis ordered?: Patient is currently on a heparin drip with therapeutic PTTs. ASSESSMENT AND PLAN: This is a 56 her old male with right upper extremity DVT who is status post venous thrombolysis of the right upper extremity. 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 PROBLEMS: 1. right upper extremity DVT: Patient is status post right upper extremity venous from lysis and is now currently on a heparin drip with plan to convert to Coumadin. Patient will remain on the heparin drip until his INR is 2.5-3.5. 2. left lower extremity swelling: Ultrasound showed no evidence of DVT in the left lower extremity. The swelling is most likely secondary to his open wounds and osteomyelitis in the left foot. 3. 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 DISPOSITION: Patient is stable and will be transferred to the floor. VS, [facility]O, [facility] Vital Signs/I&O Vital Signs Date Time Temp Pulse Resp B/P (MAP) Pulse Ox O2 Delivery O2 Flow Rate FiO2 02/04/17 21:15 73 165/88 02/04/17 21:11 20 02/04/17 20:00 Room Air 02/04/17 20:00 99.0 94 I&O- Last 24 Hours up to 6 AM 02/04/17 06:00 Intake Total 2446 ml Output Total 1225 ml Balance 1221 ml Laboratory Data 24H LABS Laboratory Tests 2 02/04/17 02:53: White Blood Count 6.8, Red Blood Count 4.14L, Hemoglobin 12.2L, Hematocrit 36.6L , Mean Corpuscular Volume 88.2, Mean Corpuscular Hemoglobin 29.4, Mean Corpuscular Hemoglobin Concent 33.3, Red Cell Distribution Width 16.1H, Platelet Count 361, Neutrophils (%) (Auto) 56.5, Lymphocytes (%) (Auto) 26.3, Monocytes (%) (Auto) 4.1, Eosinophils (%) (Auto) 7.9H, Basophils (%) (Auto) 1.0 , Neutrophils # (Auto) 3.8, Lymphocytes # (Auto) 1.8, Monocytes # (Auto) 0.3, Eosinophils # (Auto) 0.5, Basophils # (Auto) 0.1, Large Unclassified Cells % 4.2H, Large Unclassified Cells # 0.3, Prothrombin Time 14.0, Prothromb Time International Ratio 1.07, Activated Partial Thromboplast Time 87.6H, Anion Gap 9 , Glomerular Filtration Rate > 60.0, Blood Urea Nitrogen 11, Creatinine 1.20, Sodium Level 141, Potassium Level 4.2, Chloride Level 104, Carbon Dioxide Level 28, Calcium Level 9.3, Magnesium Level 1.7L 02/04/17 09:00: Prothrombin Time 14.1, Prothromb Time International Ratio 1.07, Activated Partial Thromboplast Time 70.0H 02/04/17 11:51: Bedside Glucose (Misc Panel) 155H 02/04/17 15:40: Prothrombin Time 14.0, Prothromb Time International Ratio 1.07, Activated Partial Thromboplast Time 90.8H 02/04/17 17:18: Bedside Glucose (Misc Panel) 149H 02/04/17 21:08: Bedside Glucose (Misc Panel) 221H CBC/BMP Laboratory Tests 02/04/17 02:53 Red Blood Count 4.14 L, Mean Corpuscular Volume 88.2, Mean Corpuscular Hemoglobin 29.4, Mean Corpuscular Hemoglobin Concent 33.3, Red Cell Distribution Width 16.1 H, Neutrophils (%) (Auto) 56.5, Lymphocytes (%) (Auto) 26.3, Monocytes (%) (Auto) 4.1, Eosinophils (%) (Auto) 7.9 H, Basophils (%) ( Auto) 1.0, Neutrophils # (Auto) 3.8, Lymphocytes # (Auto) 1.8, Monocytes # (Auto ) 0.3, Eosinophils # (Auto) 0.5, Basophils # (Auto) 0.1, Calcium Level 9.3 Microbiology Microbiology 02/03/17 Stool Occult Blood (ANTOINE) - Final, Complete 01/31/17 Stool Occult Blood (ANTOINE) - Final, Complete 01/30/17 Stool Occult Blood (ANTOINE) - Final, Complete 01/29/17 Stool Occult Blood (ANTOINE) - Final, Complete 01/25/17 Stool Occult Blood (ANTOINE) - Final, Complete Osmar Go MD Feb 04, 2017 22:16
[2017-02-05] VITALS: BP 130/61
[2017-02-05] MEDS: HEPARIN DRIP 25,000 UNITS in APPROPRIATE DILUENT 1 EA IV SCH ×3 (00:08→21:12)
[2017-02-05 04:00] VITALS: BP 136/63
[2017-02-05 05:01] LABS: BASO # 0.1 K/mm3 (0.0-0.2); BASO % 1.1 % (0.0-1.0); EOS # 0.5 K/mm3 (0.0-0.50); EOS % 7.6 % (0.0-3.0); LARGE UNSTAINED CELL # 0.2 K/mm3 (0.0-0.4); LARGE UNSTAINED CELL % 2.4 % (0.0-4.0); LYMPH # 1.7 K/mm3 (1.5-4.5); LYMPH % 24.9 % (24.0-44.0); MEAN CORPUSCULAR HGB CONC 32.1 g/dl (32.0-36.5); MEAN CORPUSCULAR VOLUME 90.1 fl (80.0-96.0); MONO # 0.3 K/mm3 (0.0-0.8); NEUTROPHILS # 3.8 K/mm3 (1.8-7.7); PLATELET COUNT, AUTOMATED 385 k/mm3 (150-450); RED CELL DISTRIBUTION WIDTH 16.3 % (11.5-14.5); WHITE BLOOD COUNT 6.4 K/mm3 (4.0-10.0)
[2017-02-05 05:18] LABS: ANION GAP 9 MEQ/L (8-16); BLOOD UREA NITROGEN 11 MG/DL (7-18); CALCIUM LEVEL 9.2 MG/DL (8.5-10.1); CARBON DIOXIDE LEVEL 28 MEQ/L (21-32); CHLORIDE LEVEL 104 MEQ/L (98-107); CREATININE FOR GFR 1.23 MG/DL (0.70-1.30); GLOMERULAR FILTRATION RATE > 60.0 (>56); GLUCOSE, FASTING 212 MG/DL (70-105); MAGNESIUM LEVEL 1.8 MG/DL (1.8-2.4); POTASSIUM SERUM 4.1 MEQ/L (3.5-5.1); SODIUM LEVEL 141 MEQ/L (136-145)
[2017-02-05] MEDS: GLIMEPIRIDE 2 MG TAB PO SCH ×2 (07:52→17:12)
[2017-02-05] MEDS: HumaLOG INSULIN (NovoLOG) PER UNIT SC SCH ×4 (07:53→21:00)
[2017-02-05 08:00] VITALS: BP 164/82
[2017-02-05] MEDS: oxyCODONE 5MG TAB PO PRN ×2 (08:16→16:04)
[2017-02-05] MEDS: VITAMIN D 1,000 INTERNATIONAL UNITS TABLET PO SCH (08:17)
[2017-02-05] MEDS: ENALAPRIL MALEATE 10 MG TAB PO SCH (08:17)
[2017-02-05] MEDS: PRIMIDONE 50 MG TAB PO SCH ×2 (08:18→20:57)
[2017-02-05] MEDS: MULTIVITAMINS/MINERALS THERAP 1 TAB PO SCH (08:18)
[2017-02-05] MEDS: buPROPion **XL** TABLET 150MG (WELLBUTRIN XL) PO SCH (08:18)
[2017-02-05] MEDS: MAGNESIUM OXIDE 400 MG TAB (MAG-OX) PO SCH ×3 (08:18→20:56)
[2017-02-05] MEDS: ALLOPURINOL 300 MG TAB PO SCH (08:19)
[2017-02-05] MEDS: CARVedilol 12.5 MG TAB PO SCH ×2 (08:19→20:54)
[2017-02-05] MEDS: SENOKOT S TAB PO SCH ×2 (08:19→20:53)
[2017-02-05] MEDS: DOCUSATE SODIUM 100 MG CAP PO SCH ×2 (08:19→20:53)
[2017-02-05] MEDS: amLODIPine 5 MG TAB PO SCH ×2 (08:19→20:57)
[2017-02-05] MEDS: PANTOPRAZOLE 40MG TAB (PROTONIX) PO SCH (08:19)
[2017-02-05 09:06] LABS: INR 1.04
[2017-02-05] MEDS: oxyCODONE 20 MG CR TAB PO SCH ×2 (09:30→21:02)
[2017-02-05 12:00] VITALS: BP 168/99
--- NOTE | 2017-02-05 13:23 | IPNPDOC ---
Date Seen The patient was seen on 02/05/17. Progress Note Hospitalist Progress Note Subjective: Patient states that his foot is less swollen and his wound is smaller Objective: Physical Exam: Vitals: Vital Sign - Last 24 Hours 02/04/17 02/04/17 02/04/17 02/04/17 13:42 16:00 17:45 18:15 Pulse 73 75 78 Resp 18 16 16 B/P (MAP) 142/81 (101) 142/81 Pulse Ox 94 94 O2 Delivery Room Air Room Air Nasal Cannula 02/04/17 02/04/17 02/04/17 02/04/17 20:00 20:00 21:11 21:14 Temp 99.0 Pulse 81 73 Resp 18 20 B/P (MAP) 138/78 (98) 165/88 Pulse Ox 94 O2 Delivery Room Air Room Air 02/04/17 02/05/17 02/05/17 02/05/17 21:15 00:00 00:00 04:00 Temp 99.3 Pulse 73 74 Resp 14 B/P (MAP) 165/88 130/61 (84) Pulse Ox 93 O2 Delivery Room Air Room Air Room Air 02/05/17 02/05/17 02/05/17 02/05/17 04:00 08:00 08:00 08:17 Temp 98.5 98.7 Pulse 76 76 Resp 15 16 B/P (MAP) 136/63 (87) 164/82 (109) 162/84 Pulse Ox 91 94 O2 Delivery Room Air Room Air Room Air 02/05/17 02/05/17 02/05/17 02/05/17 08:19 09:30 12:00 12:00 Temp 98.8 Pulse 74 81 Resp 16 16 B/P (MAP) 168/99 (122) Pulse Ox 94 95 O2 Delivery Room Air Room Air Room Air General: Awake, Alert, no acute distress HEENT: Normocephalic, atraumatic, extraocular movements intact CV: Regular rate and rhythm Lungs: Clear to auscultation bilaterally Abd: Soft, nontender, nondistended Extremities: Left foot with wound vac Neuro: Alert and oriented 3, normal speech Psych: Normal mood and affect Labs and Imaging: Laboratory Tests 02/05/17 04:46 Red Blood Count 4.17 L, Mean Corpuscular Volume 90.1, Mean Corpuscular Hemoglobin 29.0, Mean Corpuscular Hemoglobin Concent 32.1, Red Cell Distribution Width 16.3 H, Neutrophils (%) (Auto) 59.0, Lymphocytes (%) (Auto) 24.9, Monocytes (%) (Auto) 5.0, Eosinophils (%) (Auto) 7.6 H, Basophils (%) ( Auto) 1.1 H, Neutrophils # (Auto) 3.8, Lymphocytes # (Auto) 1.7, Monocytes # ( Auto) 0.3, Eosinophils # (Auto) 0.5, Basophils # (Auto) 0.1, Calcium Level 9.2 Assessment and Plan: 56-year-old male with diabetes mellitus type 2, hypertension, hyperlipidemia, depression, anxiety, gout, peripheral neuropathy, recent osteomyelitis of the left calcaneus who presented to the emergency department with chest pain relieved with nitroglycerin. Since discharge with PICC and IV antibiotics, the patient experienced a right upper extremity DVT, secondary to his PICC line. Even after the PICC line was moved to the left arm, he was noted to have a second DVT in that arm while on oral anticoagulation, so he was transitioned to Lovenox. He has now undergone thrombolysis and has been transferred to Dr. Go 's service. Unfortunately, over the weekend, his heparin drip was inadvertently stopped, and he developed another DVT. He has now undergone a second episode of thrombolysis for that DVT 1. Chest pain: The patient's cardiac markers have been negative 3. EKG is not indicative of acute infarct or ischemia. Echo shows normal EF, no wall motion abnormalities, and no diastolic dysfunction. The patient will continue to be monitored on telemetry, and he will need to follow-up with the parts sales counterperson for stress testing outpatient. Pain is now resolved. 2. Right upper extremity DVTs: Management as per Dr. Go. Currently on heparin drip transitioning to Coumadin. Hypercoagulability workup pending. 3. Recent osteomyelitis of the left calcaneus: Status post 6 weeks of vancomycin. Continue wound vac. 4. Diabetes mellitus type 2: Continue home glimepiride. Sliding scale insulin while in-house. 5. Hypertension: Continue Norvasc, Coreg, RUPAL inhibitor. 6. Hyperlipidemia: Continue home statin. 7. Depression and anxiety: Continue home Elavil, Wellbutrin. 8. Gout: Not currently active. Continue home allopurinol. 9. Hypomagnesemia: On recent admission, patient required multiple IV replacement. Continue scheduled oral Mag-Ox. 10. Left lower extremity swelling: The patient does not appear to have a cellulitis. Left lower extremity Dopplers negative for DVT. However, an arterial ultrasound does show moderate to significant stenosis. We will defer management of this to Dr. Go. DVT prophylaxis: Heparin drip and Coumadin Dispo: as per the plan of his primary team. VS, I&O, 24H, Fishbone Vital Signs/I&O Vital Signs Date Time Temp Pulse Resp B/P (MAP) Pulse Ox O2 Delivery O2 Flow Rate FiO2 02/05/17 12:00 98.8 81 16 168/99 (122) 95 Room Air I&O- Last 24 Hours up to 6 AM 02/05/17 06:00 Intake Total 1948 ml Output Total 3575 ml Balance -1627 ml Laboratory Data 24H LABS Laboratory Tests 2 02/04/17 15:40: Prothrombin Time 14.0, Prothromb Time International Ratio 1.07, Activated Partial Thromboplast Time 90.8H 02/04/17 17:18: Bedside Glucose (Misc Panel) 149H 02/04/17 21:08: Bedside Glucose (Misc Panel) 221H 02/04/17 23:54: Activated Partial Thromboplast Time 88.0H 02/05/17 04:46: White Blood Count 6.4, Red Blood Count 4.17L, Hemoglobin 12.1L, Hematocrit 37.6L , Mean Corpuscular Volume 90.1, Mean Corpuscular Hemoglobin 29.0, Mean Corpuscular Hemoglobin Concent 32.1, Red Cell Distribution Width 16.3H, Platelet Count 385, Neutrophils (%) (Auto) 59.0, Lymphocytes (%) (Auto) 24.9, Monocytes (%) (Auto) 5.0, Eosinophils (%) (Auto) 7.6H, Basophils (%) (Auto) 1.1H , Neutrophils # (Auto) 3.8, Lymphocytes # (Auto) 1.7, Monocytes # (Auto) 0.3, Eosinophils # (Auto) 0.5, Basophils # (Auto) 0.1, Large Unclassified Cells % 2.4 , Large Unclassified Cells # 0.2, Anion Gap 9, Glomerular Filtration Rate > 60.0 , Blood Urea Nitrogen 11, Creatinine 1.23, Sodium Level 141, Potassium Level 4.1 , Chloride Level 104, Carbon Dioxide Level 28, Calcium Level 9.2, Magnesium Level 1.8 02/05/17 07:56: Prothrombin Time 13.7, Prothromb Time International Ratio 1.04, Activated Partial Thromboplast Time 96.5H 02/05/17 12:08: Bedside Glucose (Misc Panel) 133H CBC/BMP Laboratory Tests 02/05/17 04:46 Red Blood Count 4.17 L, Mean Corpuscular Volume 90.1, Mean Corpuscular Hemoglobin 29.0, Mean Corpuscular Hemoglobin Concent 32.1, Red Cell Distribution Width 16.3 H, Neutrophils (%) (Auto) 59.0, Lymphocytes (%) (Auto) 24.9, Monocytes (%) (Auto) 5.0, Eosinophils (%) (Auto) 7.6 H, Basophils (%) ( Auto) 1.1 H, Neutrophils # (Auto) 3.8, Lymphocytes # (Auto) 1.7, Monocytes # ( Auto) 0.3, Eosinophils # (Auto) 0.5, Basophils # (Auto) 0.1, Calcium Level 9.2 Microbiology Microbiology 02/04/17 Stool Occult Blood (ANTOINE) - Final, Complete 02/03/17 Stool Occult Blood (ANTOINE) - Final, Complete 01/31/17 Stool Occult Blood (ANTOINE) - Final, Complete 01/30/17 Stool Occult Blood (ANTOINE) - Final, Complete 01/29/17 Stool Occult Blood (ANTOINE) - Final, Complete DARLIN BURCIAGA Feb 05, 2017 13:23
[2017-02-05] MEDS: WARFARIN SOD 7.5 MG TAB PO SCH (17:12)
[2017-02-05 17:20] VITALS: BP 124/59
[2017-02-05 20:30] VITALS: BP 141/79
[2017-02-05] MEDS: ATORVASTATIN 10 MG TAB PO SCH (20:55)
[2017-02-05] MEDS: AMITRIPTYLINE 25 MG TAB PO SCH (20:55)
[2017-02-06] VITALS: BP 153/74
[2017-02-06] MEDS: oxyCODONE 5MG TAB PO PRN ×3 (00:11→17:00)
[2017-02-06] MEDS: ACETAMINOPHEN TAB 650MG DOSE (2X325MG) PO PRN ×2 (00:11→05:45)
[2017-02-06 04:30] VITALS: BP 144/71
[2017-02-06 08:00] VITALS: BP 144/74
[2017-02-06] MEDS: buPROPion **XL** TABLET 150MG (WELLBUTRIN XL) PO SCH (08:13)
[2017-02-06] MEDS: ENALAPRIL MALEATE 10 MG TAB PO SCH (08:13)
[2017-02-06] MEDS: PANTOPRAZOLE 40MG TAB (PROTONIX) PO SCH (08:14)
[2017-02-06] MEDS: VITAMIN D 1,000 INTERNATIONAL UNITS TABLET PO SCH (08:14)
[2017-02-06] MEDS: MAGNESIUM OXIDE 400 MG TAB (MAG-OX) PO SCH ×3 (08:14→21:38)
[2017-02-06] MEDS: PRIMIDONE 50 MG TAB PO SCH ×2 (08:14→21:38)
[2017-02-06] MEDS: ALLOPURINOL 300 MG TAB PO SCH (08:15)
[2017-02-06] MEDS: amLODIPine 5 MG TAB PO SCH ×2 (08:15→21:39)
[2017-02-06] MEDS: SENOKOT S TAB PO SCH ×2 (08:15→21:39)
[2017-02-06] MEDS: DOCUSATE SODIUM 100 MG CAP PO SCH ×2 (08:16→21:38)
[2017-02-06] MEDS: MIRALAX *UNIT DOSE* 17GM PACKET PO SCH (08:16)
[2017-02-06] MEDS: CARVedilol 12.5 MG TAB PO SCH ×2 (08:16→21:38)
[2017-02-06] MEDS: oxyCODONE 20 MG CR TAB PO SCH ×2 (08:17→21:37)
[2017-02-06] MEDS: HumaLOG INSULIN (NovoLOG) PER UNIT SC SCH ×4 (08:26→20:55)
[2017-02-06 08:32] LABS: BASO # 0.1 K/mm3 (0.0-0.2); BASO % 1.1 % (0.0-1.0); EOS # 0.5 K/mm3 (0.0-0.50); EOS % 8.1 % (0.0-3.0); LARGE UNSTAINED CELL # 0.2 K/mm3 (0.0-0.4); LARGE UNSTAINED CELL % 2.3 % (0.0-4.0); LYMPH # 2.1 K/mm3 (1.5-4.5); LYMPH % 29.2 % (24.0-44.0); MEAN CORPUSCULAR HEMOGLOBIN 28.8 pg (27.0-33.0); MEAN CORPUSCULAR HGB CONC 31.5 g/dl (32.0-36.5); MEAN CORPUSCULAR VOLUME 91.3 fl (80.0-96.0); MONO # 0.4 K/mm3 (0.0-0.8); MONO % 5.9 % (0.0-5.0); NEUTROPHILS # 3.5 K/mm3 (1.8-7.7); NEUTROPHILS % 53.4 % (36.0-66.0); PLATELET COUNT, AUTOMATED 390 k/mm3 (150-450); RED CELL DISTRIBUTION WIDTH 16.2 % (11.5-14.5); WHITE BLOOD COUNT 6.6 K/mm3 (4.0-10.0)
[2017-02-06] MEDS: MULTIVITAMINS/MINERALS THERAP 1 TAB PO SCH (08:36)
[2017-02-06 08:47] LABS: ANION GAP 11 MEQ/L (8-16); BLOOD UREA NITROGEN 10 MG/DL (7-18); CALCIUM LEVEL 9.6 MG/DL (8.5-10.1); CARBON DIOXIDE LEVEL 27 MEQ/L (21-32); CHLORIDE LEVEL 102 MEQ/L (98-107); GLOMERULAR FILTRATION RATE > 60.0 (>56); GLUCOSE, FASTING 238 MG/DL (70-105); MAGNESIUM LEVEL 1.6 MG/DL (1.8-2.4); SODIUM LEVEL 140 MEQ/L (136-145)
[2017-02-06 08:54] LABS: INR 1.06
[2017-02-06] MEDS: GLIMEPIRIDE 2 MG TAB PO SCH ×2 (09:54→16:55)
[2017-02-06] MEDS: MAG SULF 1GM/100ML (MAG RUN) 1 GM in APPROPRIATE DILUENT 1 EA IV SCH ×2 (11:00→11:23)
[2017-02-06 12:00] VITALS: BP 130/64
[2017-02-06 16:00] VITALS: BP 136/73
[2017-02-06 16:35] LABS: INR 1.04
[2017-02-06] MEDS: WARFARIN SOD 7.5 MG TAB PO SCH (16:54)
[2017-02-06 20:00] VITALS: BP 143/68
[2017-02-06] MEDS: AMITRIPTYLINE 25 MG TAB PO SCH (21:39)
[2017-02-06] MEDS: ATORVASTATIN 10 MG TAB PO SCH (21:39)
[2017-02-07] VITALS: BP 147/78
[2017-02-07] MEDS: oxyCODONE 5MG TAB PO PRN ×4 (00:09→19:17)
[2017-02-07] MEDS: HEPARIN DRIP 25,000 UNITS in APPROPRIATE DILUENT 1 EA IV SCH ×3 (03:22→23:26)
[2017-02-07 04:00] VITALS: BP 146/77
[2017-02-07 04:46] LABS: BASO # 0.1 K/mm3 (0.0-0.2); BASO % 0.9 % (0.0-1.0); EOS # 0.5 K/mm3 (0.0-0.50); EOS % 6.9 % (0.0-3.0); LARGE UNSTAINED CELL # 0.2 K/mm3 (0.0-0.4); LYMPH # 1.8 K/mm3 (1.5-4.5); LYMPH % 22.8 % (24.0-44.0); MEAN CORPUSCULAR HEMOGLOBIN 28.8 pg (27.0-33.0); MEAN CORPUSCULAR HGB CONC 31.8 g/dl (32.0-36.5); MEAN CORPUSCULAR VOLUME 90.6 fl (80.0-96.0); MONO # 0.4 K/mm3 (0.0-0.8); MONO % 4.9 % (0.0-5.0); NEUTROPHILS # 4.6 K/mm3 (1.8-7.7); NEUTROPHILS % 62.5 % (36.0-66.0); PLATELET COUNT, AUTOMATED 435 k/mm3 (150-450); RED CELL DISTRIBUTION WIDTH 16.2 % (11.5-14.5); WHITE BLOOD COUNT 7.4 K/mm3 (4.0-10.0)
[2017-02-07 04:51] LABS: INR 1.04
[2017-02-07 05:20] LABS: ANION GAP 7 MEQ/L (8-16); BLOOD UREA NITROGEN 10 MG/DL (7-18); CALCIUM LEVEL 9.6 MG/DL (8.5-10.1); CARBON DIOXIDE LEVEL 30 MEQ/L (21-32); CHLORIDE LEVEL 105 MEQ/L (98-107); CREATININE FOR GFR 1.15 MG/DL (0.70-1.30); GLOMERULAR FILTRATION RATE > 60.0 (>56); GLUCOSE, FASTING 182 MG/DL (70-105); MAGNESIUM LEVEL 1.7 MG/DL (1.8-2.4); POTASSIUM SERUM 4.2 MEQ/L (3.5-5.1); SODIUM LEVEL 142 MEQ/L (136-145)
[2017-02-07] MEDS: MAG SULF 1GM/100ML (MAG RUN) 1 GM in APPROPRIATE DILUENT 1 EA IV SCH ×2 (07:33→08:39)
[2017-02-07 08:00] VITALS: BP 159/85
[2017-02-07] MEDS: PANTOPRAZOLE 40MG TAB (PROTONIX) PO SCH (08:08)
[2017-02-07] MEDS: HumaLOG INSULIN (NovoLOG) PER UNIT SC SCH ×4 (08:08→21:00)
[2017-02-07] MEDS: VITAMIN D 1,000 INTERNATIONAL UNITS TABLET PO SCH (08:09)
[2017-02-07] MEDS: ENALAPRIL MALEATE 10 MG TAB PO SCH (08:09)
[2017-02-07] MEDS: CARVedilol 12.5 MG TAB PO SCH ×2 (08:09→21:05)
[2017-02-07] MEDS: DOCUSATE SODIUM 100 MG CAP PO SCH ×2 (08:10→21:04)
[2017-02-07] MEDS: SENOKOT S TAB PO SCH ×2 (08:10→21:04)
[2017-02-07] MEDS: MULTIVITAMINS/MINERALS THERAP 1 TAB PO SCH (08:10)
[2017-02-07] MEDS: MAGNESIUM OXIDE 400 MG TAB (MAG-OX) PO SCH ×3 (08:10→21:04)
[2017-02-07] MEDS: ALLOPURINOL 300 MG TAB PO SCH (08:10)
[2017-02-07] MEDS: GLIMEPIRIDE 2 MG TAB PO SCH ×2 (08:11→17:04)
[2017-02-07] MEDS: amLODIPine 5 MG TAB PO SCH ×2 (08:11→21:04)
[2017-02-07] MEDS: buPROPion **XL** TABLET 150MG (WELLBUTRIN XL) PO SCH (08:11)
[2017-02-07] MEDS: PRIMIDONE 50 MG TAB PO SCH ×2 (08:12→21:03)
[2017-02-07] MEDS: oxyCODONE 20 MG CR TAB PO SCH ×2 (08:16→21:07)
[2017-02-07 12:00] VITALS: BP 140/75
--- NOTE | 2017-02-07 15:04 | IPNPDOC ---
Date Seen The patient was seen on 02/07/17. Progress Note Hospitalist Progress Note Subjective: Patient has no complaints, just hopes to go home soon Objective: Physical Exam: Vitals: Vital Sign - Last 24 Hours 02/06/17 02/06/17 02/06/17 02/06/17 16:00 17:00 19:58 20:00 Temp 97.8 99.1 Pulse 74 Resp 18 18 B/P (MAP) 136/73 (94) 143/68 Pulse Ox 97 94 O2 Delivery Room Air Room Air Room Air 02/06/17 02/06/17 02/06/17 02/06/17 20:00 21:37 21:38 21:39 Temp 99.1 Pulse 81 76 81 81 Resp 20 23 B/P (MAP) 143/68 (93) 143/65 143/68 143/68 Pulse Ox 94 95 O2 Delivery Room Air Room Air 02/07/17 02/07/17 02/07/17 02/07/17 00:00 00:09 00:39 04:00 Temp 98.8 97.4 Pulse 77 73 68 70 Resp 22 20 14 B/P (MAP) 147/78 (101) 147/78 146/77 (100) Pulse Ox 97 96 96 O2 Delivery Room Air Room Air Room Air 02/07/17 02/07/17 02/07/17 02/07/17 06:22 06:52 08:00 08:00 Temp 98.8 Pulse 68 81 Resp 20 16 18 B/P (MAP) 159/85 (109) Pulse Ox 96 O2 Delivery Room Air Room Air 02/07/17 02/07/17 02/07/17 02/07/17 08:09 08:09 08:11 08:16 Pulse 89 89 Resp 18 B/P (MAP) 159/85 159/85 159/85 02/07/17 02/07/17 12:00 14:48 Temp 98.5 Pulse 85 Resp 18 18 B/P (MAP) 140/75 (96) Pulse Ox 97 O2 Delivery Room Air General: Awake, Alert, no acute distress HEENT: Normocephalic, atraumatic, extraocular movements intact CV: Regular rate and rhythm Lungs: Clear to auscultation bilaterally Abd: Soft, nontender, nondistended Extremities: Left foot with wound vac Neuro: Alert and oriented 3, normal speech Psych: Normal mood and affect Labs and Imaging: Laboratory Tests 02/07/17 04:18 Red Blood Count 4.29 L, Mean Corpuscular Volume 90.6, Mean Corpuscular Hemoglobin 28.8, Mean Corpuscular Hemoglobin Concent 31.8 L, Red Cell Distribution Width 16.2 H, Neutrophils (%) (Auto) 62.5, Lymphocytes (%) (Auto) 22.8 L, Monocytes (%) (Auto) 4.9, Eosinophils (%) (Auto) 6.9 H, Basophils (%) ( Auto) 0.9, Neutrophils # (Auto) 4.6, Lymphocytes # (Auto) 1.8, Monocytes # (Auto ) 0.4, Eosinophils # (Auto) 0.5, Basophils # (Auto) 0.1, Calcium Level 9.6 Assessment and Plan: 56-year-old male with diabetes mellitus type 2, hypertension, hyperlipidemia, depression, anxiety, gout, peripheral neuropathy, recent osteomyelitis of the left calcaneus who presented to the emergency department with chest pain relieved with nitroglycerin. Since discharge with PICC and IV antibiotics, the patient experienced a right upper extremity DVT, secondary to his PICC line. Even after the PICC line was moved to the left arm, he was noted to have a second DVT in that arm while on oral anticoagulation, so he was transitioned to Lovenox. He has now undergone thrombolysis and has been transferred to Dr. Go 's service. Unfortunately, over the weekend, his heparin drip was inadvertently stopped, and he developed another DVT. He has now undergone a second episode of thrombolysis for that DVT 1. Chest pain: The patient's cardiac markers have been negative 3. EKG is not indicative of acute infarct or ischemia. Echo shows normal EF, no wall motion abnormalities, and no diastolic dysfunction. The patient will need to follow-up with the bead cutter for stress testing outpatient. Pain is now resolved. 2. Right upper extremity DVTs: Management as per Dr. Go. Currently on heparin drip transitioning to Coumadin. Hypercoagulability workup pending. INR has made very little upward trend; I would recommend considering increasing his coumadin dose. 3. Recent osteomyelitis of the left calcaneus: Status post 6 weeks of vancomycin. Continue wound vac. 4. Diabetes mellitus type 2: Continue home glimepiride. Sliding scale insulin while in-house. 5. Hypertension: Continue Norvasc, Coreg, RUPAL inhibitor. 6. Hyperlipidemia: Continue home statin. 7. Depression and anxiety: Continue home Elavil, Wellbutrin. 8. Gout: Not currently active. Continue home allopurinol. 9. Hypomagnesemia: On recent admission, patient required multiple IV replacement. Continue scheduled oral Mag-Ox. 10. Left lower extremity swelling: The patient does not appear to have a cellulitis. Left lower extremity Dopplers negative for DVT. However, an arterial ultrasound does show moderate to significant stenosis. We will defer management of this to Dr. Go. DVT prophylaxis: Heparin drip and Coumadin Dispo: as per the plan of his primary team. VS, I&O, 24H, Fishbone Vital Signs/I&O Vital Signs Date Time Temp Pulse Resp B/P (MAP) Pulse Ox O2 Delivery O2 Flow Rate FiO2 02/07/17 14:48 18 02/07/17 12:00 98.5 85 140/75 (96) 97 Room Air I&O- Last 24 Hours up to 6 AM 02/07/17 06:00 Intake Total 2040 ml Output Total 1750 ml Balance 290 ml Laboratory Data 24H LABS Laboratory Tests 2 02/06/17 16:13: Prothrombin Time 13.7, Prothromb Time International Ratio 1.04, Activated Partial Thromboplast Time 76.4H 02/06/17 16:47: Bedside Glucose (Misc Panel) 171H 02/06/17 20:53: Bedside Glucose (Misc Panel) 212H 02/06/17 23:58: Activated Partial Thromboplast Time 75.4H 02/07/17 04:18: White Blood Count 7.4, Red Blood Count 4.29L, Hemoglobin 12.4L, Hematocrit 38.8L , Mean Corpuscular Volume 90.6, Mean Corpuscular Hemoglobin 28.8, Mean Corpuscular Hemoglobin Concent 31.8L, Red Cell Distribution Width 16.2H, Platelet Count 435, Neutrophils (%) (Auto) 62.5, Lymphocytes (%) (Auto) 22.8L, Monocytes (%) (Auto) 4.9, Eosinophils (%) (Auto) 6.9H, Basophils (%) (Auto) 0.9 , Neutrophils # (Auto) 4.6, Lymphocytes # (Auto) 1.8, Monocytes # (Auto) 0.4, Eosinophils # (Auto) 0.5, Basophils # (Auto) 0.1, Large Unclassified Cells % 2.0 , Large Unclassified Cells # 0.2, Prothrombin Time 13.7, Prothromb Time International Ratio 1.04, Anion Gap 7L, Glomerular Filtration Rate > 60.0, Blood Urea Nitrogen 10, Creatinine 1.15, Sodium Level 142, Potassium Level 4.2, Chloride Level 105, Carbon Dioxide Level 30, Calcium Level 9.6, Magnesium Level 1.7L 02/07/17 11:31: Bedside Glucose (Misc Panel) 263H 02/07/17 13:14: Activated Partial Thromboplast Time 66.7H CBC/BMP Laboratory Tests 02/07/17 04:18 Red Blood Count 4.29 L, Mean Corpuscular Volume 90.6, Mean Corpuscular Hemoglobin 28.8, Mean Corpuscular Hemoglobin Concent 31.8 L, Red Cell Distribution Width 16.2 H, Neutrophils (%) (Auto) 62.5, Lymphocytes (%) (Auto) 22.8 L, Monocytes (%) (Auto) 4.9, Eosinophils (%) (Auto) 6.9 H, Basophils (%) ( Auto) 0.9, Neutrophils # (Auto) 4.6, Lymphocytes # (Auto) 1.8, Monocytes # (Auto ) 0.4, Eosinophils # (Auto) 0.5, Basophils # (Auto) 0.1, Calcium Level 9.6 Microbiology Microbiology 02/04/17 Stool Occult Blood (ANTOINE) - Final, Complete 02/03/17 Stool Occult Blood (ANTOINE) - Final, Complete 01/31/17 Stool Occult Blood (ANTOINE) - Final, Complete 01/30/17 Stool Occult Blood (ANTOINE) - Final, Complete 01/29/17 Stool Occult Blood (ANTOINE) - Final, Complete DARLIN BURCIAGA Feb 07, 2017 15:04
[2017-02-07 16:00] VITALS: BP 136/73
[2017-02-07] MEDS: WARFARIN SOD 7.5 MG TAB PO SCH (17:04)
[2017-02-07 20:00] VITALS: BP 146/70
[2017-02-07] MEDS: AMITRIPTYLINE 25 MG TAB PO SCH (21:04)
[2017-02-07] MEDS: ATORVASTATIN 10 MG TAB PO SCH (21:04)
--- NOTE | 2017-02-07 23:38 | IPNPDOC ---
Date Seen The patient was seen on 02/07/17. Progress Note SUBJECTIVE: Patient is without complaints. OBJECTIVE PHYSICAL EXAMINATION: VITAL SIGNS: Please see below. GENERAL: Lying in bed comfortably HEENT: Normal CARDIOVASCULAR: Regular rate and rhythm. RESPIRATORY: Clear to auscultation bilaterally. ABDOMINAL: Soft nontender nondistended EXTREMITIES: Well-perfused right upper extremity with minimal swelling NEUROLOGICAL: Alert oriented x3 PSYCHOLOGICAL: Normal LABORATORY DATA: Please see below. MICROBIOLOGY: Please see below. DVT prophylaxis ordered?: Patient currently on a heparin drip ASSESSMENT AND PLAN: This is a 56 year old male with right upper extremity status post right venous thrombolysis of the upper extremity PROBLEMS: 1. right upper extremity DVT: H is stable and currently on a heparin drip being converted to Coumadin therapy. VS, I&O, 24H, Fishbone Vital Signs/I&O Vital Signs Date Time Temp Pulse Resp B/P (MAP) Pulse Ox O2 Delivery O2 Flow Rate FiO2 02/07/17 21:07 73 20 Room Air 02/07/17 21:05 146/70 02/07/17 20:00 97.9 95 I&O- Last 24 Hours up to 6 AM 02/07/17 06:00 Intake Total 2040 ml Output Total 1750 ml Balance 290 ml Laboratory Data 24H LABS Laboratory Tests 2 02/06/17 23:58: Activated Partial Thromboplast Time 75.4H 02/07/17 04:18: White Blood Count 7.4, Red Blood Count 4.29L, Hemoglobin 12.4L, Hematocrit 38.8L , Mean Corpuscular Volume 90.6, Mean Corpuscular Hemoglobin 28.8, Mean Corpuscular Hemoglobin Concent 31.8L, Red Cell Distribution Width 16.2H, Platelet Count 435, Neutrophils (%) (Auto) 62.5, Lymphocytes (%) (Auto) 22.8L, Monocytes (%) (Auto) 4.9, Eosinophils (%) (Auto) 6.9H, Basophils (%) (Auto) 0.9 , Neutrophils # (Auto) 4.6, Lymphocytes # (Auto) 1.8, Monocytes # (Auto) 0.4, Eosinophils # (Auto) 0.5, Basophils # (Auto) 0.1, Large Unclassified Cells % 2.0 , Large Unclassified Cells # 0.2, Prothrombin Time 13.7, Prothromb Time International Ratio 1.04, Anion Gap 7L, Glomerular Filtration Rate > 60.0, Blood Urea Nitrogen 10, Creatinine 1.15, Sodium Level 142, Potassium Level 4.2, Chloride Level 105, Carbon Dioxide Level 30, Calcium Level 9.6, Magnesium Level 1.7L 02/07/17 11:31: Bedside Glucose (Misc Panel) 263H 02/07/17 13:14: Activated Partial Thromboplast Time 66.7H 02/07/17 16:59: Bedside Glucose (Misc Panel) 219H 02/07/17 20:57: Bedside Glucose (Misc Panel) 230H CBC/BMP Laboratory Tests 02/07/17 04:18 Red Blood Count 4.29 L, Mean Corpuscular Volume 90.6, Mean Corpuscular Hemoglobin 28.8, Mean Corpuscular Hemoglobin Concent 31.8 L, Red Cell Distribution Width 16.2 H, Neutrophils (%) (Auto) 62.5, Lymphocytes (%) (Auto) 22.8 L, Monocytes (%) (Auto) 4.9, Eosinophils (%) (Auto) 6.9 H, Basophils (%) ( Auto) 0.9, Neutrophils # (Auto) 4.6, Lymphocytes # (Auto) 1.8, Monocytes # (Auto ) 0.4, Eosinophils # (Auto) 0.5, Basophils # (Auto) 0.1, Calcium Level 9.6 Microbiology Microbiology 02/04/17 Stool Occult Blood (ANTOINE) - Final, Complete 02/03/17 Stool Occult Blood (ANTOINE) - Final, Complete 01/31/17 Stool Occult Blood (ANTOINE) - Final, Complete 01/30/17 Stool Occult Blood (ANTOINE) - Final, Complete 01/29/17 Stool Occult Blood (ANTOINE) - Final, Complete Osmar Go MD Feb 07, 2017 23:38
--- NOTE | 2017-02-07 23:42 | IPNPDOC ---
Date Seen The patient was seen on 02/05/17. Progress Note SUBJECTIVE: Patient is without complaints OBJECTIVE PHYSICAL EXAMINATION: VITAL SIGNS: Please see below. GENERAL: lying in bed comfortably HEENT: Normal CARDIOVASCULAR: Regular rate and rhythm. RESPIRATORY: Clear to auscultation bilaterally. ABDOMINAL: Soft nontender nondistended EXTREMITIES: Well-perfused right upper extremity with minimal swelling NEUROLOGICAL: Awake alert oriented x3 PSYCHOLOGICAL: Normal LABORATORY DATA: Please see below. MICROBIOLOGY: Please see below. DVT prophylaxis ordered?: Patient currently on average of being converted to Coumadin ASSESSMENT AND PLAN: This is a 50 6R male with right upper extremity DVT status post right upper extremity venous on the lysis. PROBLEMS: 1. right upper extremity venous on the lysis: Right upper extremity swelling is minimal patient is currently on a heparin drip and being converted to Coumadin. VS, I&O, 24H, [facility] Vital Signs/I&O Vital Signs Date Time Temp Pulse Resp B/P (MAP) Pulse Ox O2 Delivery O2 Flow Rate FiO2 02/07/17 21:07 73 20 Room Air 02/07/17 21:05 146/70 02/07/17 20:00 97.9 95 I&O- Last 24 Hours up to 6 AM 02/07/17 06:00 Intake Total 2040 ml Output Total 1750 ml Balance 290 ml Laboratory Data 24H LABS Laboratory Tests 2 02/06/17 23:58: Activated Partial Thromboplast Time 75.4H 02/07/17 04:18: White Blood Count 7.4, Red Blood Count 4.29L, Hemoglobin 12.4L, Hematocrit 38.8L , Mean Corpuscular Volume 90.6, Mean Corpuscular Hemoglobin 28.8, Mean Corpuscular Hemoglobin Concent 31.8L, Red Cell Distribution Width 16.2H, Platelet Count 435, Neutrophils (%) (Auto) 62.5, Lymphocytes (%) (Auto) 22.8L, Monocytes (%) (Auto) 4.9, Eosinophils (%) (Auto) 6.9H, Basophils (%) (Auto) 0.9 , Neutrophils # (Auto) 4.6, Lymphocytes # (Auto) 1.8, Monocytes # (Auto) 0.4, Eosinophils # (Auto) 0.5, Basophils # (Auto) 0.1, Large Unclassified Cells % 2.0 , Large Unclassified Cells # 0.2, Prothrombin Time 13.7, Prothromb Time International Ratio 1.04, Anion Gap 7L, Glomerular Filtration Rate > 60.0, Blood Urea Nitrogen 10, Creatinine 1.15, Sodium Level 142, Potassium Level 4.2, Chloride Level 105, Carbon Dioxide Level 30, Calcium Level 9.6, Magnesium Level 1.7L 02/07/17 11:31: Bedside Glucose (Misc Panel) 263H 02/07/17 13:14: Activated Partial Thromboplast Time 66.7H 02/07/17 16:59: Bedside Glucose (Misc Panel) 219H 02/07/17 20:57: Bedside Glucose (Misc Panel) 230H CBC/BMP Laboratory Tests 02/07/17 04:18 Red Blood Count 4.29 L, Mean Corpuscular Volume 90.6, Mean Corpuscular Hemoglobin 28.8, Mean Corpuscular Hemoglobin Concent 31.8 L, Red Cell Distribution Width 16.2 H, Neutrophils (%) (Auto) 62.5, Lymphocytes (%) (Auto) 22.8 L, Monocytes (%) (Auto) 4.9, Eosinophils (%) (Auto) 6.9 H, Basophils (%) ( Auto) 0.9, Neutrophils # (Auto) 4.6, Lymphocytes # (Auto) 1.8, Monocytes # (Auto ) 0.4, Eosinophils # (Auto) 0.5, Basophils # (Auto) 0.1, Calcium Level 9.6 Microbiology Microbiology 02/04/17 Stool Occult Blood (ANTOINE) - Final, Complete 02/03/17 Stool Occult Blood (ANTOINE) - Final, Complete 01/31/17 Stool Occult Blood (ANTOINE) - Final, Complete 01/30/17 Stool Occult Blood (ANTOINE) - Final, Complete 01/29/17 Stool Occult Blood (ANTOINE) - Final, Complete Osmar Go MD Feb 07, 2017 23:42
--- NOTE | 2017-02-07 23:44 | IPNPDOC ---
Date Seen The patient was seen on 02/06/17. Progress Note SUBJECTIVE: Patient is without complaints. OBJECTIVE PHYSICAL EXAMINATION: VITAL SIGNS: Please see below. GENERAL: Sitting in the chair comfortably HEENT: Normal CARDIOVASCULAR: Regular rate and rhythm. RESPIRATORY: Clear to auscultation bilaterally. ABDOMINAL: Soft nontender nondistended EXTREMITIES: Right upper extremity well perfused with minimal swelling NEUROLOGICAL: Awake alert oriented x3 PSYCHOLOGICAL: Normal LABORATORY DATA: Please see below. MICROBIOLOGY: Please see below. DVT prophylaxis ordered?: Patient currently on heparin drip be converted to Coumadin ASSESSMENT AND PLAN: This is a 56 showed male with right upper extremities venous thrombolysis for a right upper extremity DVT. PROBLEMS: 1. right upper extremity DVT: is status post thrombolysis and being converted from a heparin drip to Coumadin for long-term anticoagulations. [facility] Vital Signs Date Time Temp Pulse Resp B/P (MAP) Pulse Ox O2 Delivery O2 Flow Rate FiO2 02/07/17 21:07 73 20 Room Air 02/07/17 21:05 146/70 02/07/17 20:00 97.9 95 I&O- Last 24 Hours up to 6 AM 02/07/17 06:00 Intake Total 2040 ml Output Total 1750 ml Balance 290 ml Laboratory Data 24H LABS Laboratory Tests 2 02/06/17 23:58: Activated Partial Thromboplast Time 75.4H 02/07/17 04:18: White Blood Count 7.4, Red Blood Count 4.29L, Hemoglobin 12.4L, Hematocrit 38.8L , Mean Corpuscular Volume 90.6, Mean Corpuscular Hemoglobin 28.8, Mean Corpuscular Hemoglobin Concent 31.8L, Red Cell Distribution Width 16.2H, Platelet Count 435, Neutrophils (%) (Auto) 62.5, Lymphocytes (%) (Auto) 22.8L, Monocytes (%) (Auto) 4.9, Eosinophils (%) (Auto) 6.9H, Basophils (%) (Auto) 0.9 , Neutrophils # (Auto) 4.6, Lymphocytes # (Auto) 1.8, Monocytes # (Auto) 0.4, Eosinophils # (Auto) 0.5, Basophils # (Auto) 0.1, Large Unclassified Cells % 2.0 , Large Unclassified Cells # 0.2, Prothrombin Time 13.7, Prothromb Time International Ratio 1.04, Anion Gap 7L, Glomerular Filtration Rate > 60.0, Blood Urea Nitrogen 10, Creatinine 1.15, Sodium Level 142, Potassium Level 4.2, Chloride Level 105, Carbon Dioxide Level 30, Calcium Level 9.6, Magnesium Level 1.7L 02/07/17 11:31: Bedside Glucose (Misc Panel) 263H 02/07/17 13:14: Activated Partial Thromboplast Time 66.7H 02/07/17 16:59: Bedside Glucose (Misc Panel) 219H 02/07/17 20:57: Bedside Glucose (Misc Panel) 230H CBC/BMP Laboratory Tests 02/07/17 04:18 Red Blood Count 4.29 L, Mean Corpuscular Volume 90.6, Mean Corpuscular Hemoglobin 28.8, Mean Corpuscular Hemoglobin Concent 31.8 L, Red Cell Distribution Width 16.2 H, Neutrophils (%) (Auto) 62.5, Lymphocytes (%) (Auto) 22.8 L, Monocytes (%) (Auto) 4.9, Eosinophils (%) (Auto) 6.9 H, Basophils (%) ( Auto) 0.9, Neutrophils # (Auto) 4.6, Lymphocytes # (Auto) 1.8, Monocytes # (Auto ) 0.4, Eosinophils # (Auto) 0.5, Basophils # (Auto) 0.1, Calcium Level 9.6 Microbiology Microbiology 02/04/17 Stool Occult Blood (ANTOINE) - Final, Complete 02/03/17 Stool Occult Blood (ANTOINE) - Final, Complete 01/31/17 Stool Occult Blood (ANTOINE) - Final, Complete 01/30/17 Stool Occult Blood (ANTOINE) - Final, Complete 01/29/17 Stool Occult Blood (ANTOINE) - Final, Complete Osmar Go MD Feb 07, 2017 23:44
[2017-02-08] VITALS: BP 161/75
[2017-02-08] MEDS: oxyCODONE 5MG TAB PO PRN ×2 (00:23→13:34)
[2017-02-08 04:00] VITALS: BP 140/75
[2017-02-08] MEDS: HEPARIN DRIP 25,000 UNITS in APPROPRIATE DILUENT 1 EA IV SCH ×3 (04:08→21:25)
[2017-02-08 05:09] LABS: BASO % 0.9 % (0.0-1.0); EOS # 0.5 K/mm3 (0.0-0.50); EOS % 8.2 % (0.0-3.0); LARGE UNSTAINED CELL # 0.3 K/mm3 (0.0-0.4); LARGE UNSTAINED CELL % 4.4 % (0.0-4.0); LYMPH # 1.7 K/mm3 (1.5-4.5); LYMPH % 28.2 % (24.0-44.0); MEAN CORPUSCULAR HEMOGLOBIN 29.2 pg (27.0-33.0); MEAN CORPUSCULAR HGB CONC 32.6 g/dl (32.0-36.5); MEAN CORPUSCULAR VOLUME 89.3 fl (80.0-96.0); MONO # 0.2 K/mm3 (0.0-0.8); MONO % 3.8 % (0.0-5.0); NEUTROPHILS # 3.3 K/mm3 (1.8-7.7); NEUTROPHILS % 54.6 % (36.0-66.0); PLATELET COUNT, AUTOMATED 421 k/mm3 (150-450); RED CELL DISTRIBUTION WIDTH 15.8 % (11.5-14.5)
[2017-02-08 05:12] LABS: INR 1.06
[2017-02-08 05:19] LABS: ANION GAP 12 MEQ/L (8-16); BLOOD UREA NITROGEN 11 MG/DL (7-18); CALCIUM LEVEL 8.9 MG/DL (8.5-10.1); CARBON DIOXIDE LEVEL 25 MEQ/L (21-32); CHLORIDE LEVEL 104 MEQ/L (98-107); CREATININE FOR GFR 1.15 MG/DL (0.70-1.30); GLOMERULAR FILTRATION RATE > 60.0 (>56); GLUCOSE, FASTING 245 MG/DL (70-105); MAGNESIUM LEVEL 1.6 MG/DL (1.8-2.4); POTASSIUM SERUM 4.3 MEQ/L (3.5-5.1); SODIUM LEVEL 141 MEQ/L (136-145)
[2017-02-08] MEDS: MAG SULF 1GM/100ML (MAG RUN) 1 GM in APPROPRIATE DILUENT 1 EA IV SCH ×2 (07:19→07:54)
[2017-02-08 08:00] VITALS: BP 152/81
[2017-02-08] MEDS: MIRALAX *UNIT DOSE* 17GM PACKET PO SCH (08:08)
[2017-02-08] MEDS: oxyCODONE 20 MG CR TAB PO SCH ×2 (08:12→21:36)
[2017-02-08] MEDS: PRIMIDONE 50 MG TAB PO SCH ×2 (08:13→21:31)
[2017-02-08] MEDS: VITAMIN D 1,000 INTERNATIONAL UNITS TABLET PO SCH (08:13)
[2017-02-08] MEDS: MAGNESIUM OXIDE 400 MG TAB (MAG-OX) PO SCH ×3 (08:13→21:30)
[2017-02-08] MEDS: ENALAPRIL MALEATE 10 MG TAB PO SCH (08:13)
[2017-02-08] MEDS: GLIMEPIRIDE 2 MG TAB PO SCH ×2 (08:14→17:29)
[2017-02-08] MEDS: amLODIPine 5 MG TAB PO SCH ×2 (08:14→21:31)
[2017-02-08] MEDS: ALLOPURINOL 300 MG TAB PO SCH (08:14)
[2017-02-08] MEDS: buPROPion **XL** TABLET 150MG (WELLBUTRIN XL) PO SCH (08:14)
[2017-02-08] MEDS: MULTIVITAMINS/MINERALS THERAP 1 TAB PO SCH (08:14)
[2017-02-08] MEDS: CARVedilol 12.5 MG TAB PO SCH ×2 (08:15→21:27)
[2017-02-08] MEDS: PANTOPRAZOLE 40MG TAB (PROTONIX) PO SCH (08:15)
[2017-02-08] MEDS: DOCUSATE SODIUM 100 MG CAP PO SCH ×2 (08:15→21:26)
[2017-02-08] MEDS: SENOKOT S TAB PO SCH ×2 (08:15→21:31)
[2017-02-08] MEDS: HumaLOG INSULIN (NovoLOG) PER UNIT SC SCH ×4 (08:16→21:37)
[2017-02-08 12:00] VITALS: BP 126/94
[2017-02-08 16:00] VITALS: BP 140/66
[2017-02-08] MEDS: WARFARIN SOD 7.5 MG TAB PO SCH (17:29)
[2017-02-08 20:00] VITALS: BP 177/77
[2017-02-08] MEDS: AMITRIPTYLINE 25 MG TAB PO SCH (21:27)
[2017-02-08] MEDS: ATORVASTATIN 10 MG TAB PO SCH (21:27)
[2017-02-08] MEDS: ACETAMINOPHEN TAB 650MG DOSE (2X325MG) PO PRN (21:32)
--- NOTE | 2017-02-08 23:10 | IPNPDOC ---
Date Seen The patient was seen on 02/08/17. Progress Note SUBJECTIVE: Patient is a without complaints. Patient notes left lower extremity swelling is slightly worse. OBJECTIVE PHYSICAL EXAMINATION: VITAL SIGNS: Please see below. GENERAL: Lying in bed comfortably HEENT: Normal CARDIOVASCULAR: Regular rate and rhythm. RESPIRATORY: Clear to auscultation bilaterally. ABDOMINAL: Soft nontender nondistended EXTREMITIES: Left lower extremity with swelling edema and mild cellulitis, right upper extremity stable. NEUROLOGICAL: Awake alert oriented x3 PSYCHOLOGICAL: Normal LABORATORY DATA: Please see below. MICROBIOLOGY: Please see below. IMAGING: Left lower extremity venous duplex shows no evidence of deep venous thrombosis DVT prophylaxis ordered?: Patient currently on a heparin drip being converted to Coumadin therapy. ASSESSMENT AND PLAN: This is a 56 field male with right upper extremity DVT status post lumbar lysis and left lower extremity swelling with left foot wound and osteomyelitis. PROBLEMS: 1. right upper extremity DVT: Patient is status post lumbar lysis and currently on a heparin drip being converted to Coumadin therapy. 2. left lower extremities swelling: Agent has no evidence of deep venous boluses in the left lower extremity and the swelling is most likely secondary to lymphedema and wounds in the left foot with previous osteomyelitis.. DISPOSITION: Patient will be an discharged once his INR is 2.5-3.5. VS, I&O, 24H, [facility] Vital Signs/I&O Vital Signs Date Time Temp Pulse Resp B/P (MAP) Pulse Ox O2 Delivery O2 Flow Rate FiO2 02/08/17 21:36 16 94 02/08/17 21:31 82 177/77 02/08/17 20:00 98.8 Room Air I&O- Last 24 Hours up to 6 AM 02/08/17 06:00 Intake Total 1968 ml Output Total 1250 ml Balance 718 ml Laboratory Data 24H LABS Laboratory Tests 2 02/08/17 00:48: Activated Partial Thromboplast Time 65.4H 02/08/17 04:33: White Blood Count 6.0, Red Blood Count 4.23L, Hemoglobin 12.3L, Hematocrit 37.7L , Mean Corpuscular Volume 89.3, Mean Corpuscular Hemoglobin 29.2, Mean Corpuscular Hemoglobin Concent 32.6, Red Cell Distribution Width 15.8H, Platelet Count 421, Neutrophils (%) (Auto) 54.6, Lymphocytes (%) (Auto) 28.2, Monocytes (%) (Auto) 3.8, Eosinophils (%) (Auto) 8.2H, Basophils (%) (Auto) 0.9 , Neutrophils # (Auto) 3.3, Lymphocytes # (Auto) 1.7, Monocytes # (Auto) 0.2, Eosinophils # (Auto) 0.5, Basophils # (Auto) 0.0, Large Unclassified Cells % 4.4H, Large Unclassified Cells # 0.3, Prothrombin Time 13.9, Prothromb Time International Ratio 1.06, Anion Gap 12, Glomerular Filtration Rate > 60.0, Blood Urea Nitrogen 11, Creatinine 1.15, Sodium Level 141, Potassium Level 4.3, Chloride Level 104, Carbon Dioxide Level 25, Calcium Level 8.9, Magnesium Level 1.6L 02/08/17 07:56: Bedside Glucose (Misc Panel) 162H 02/08/17 11:47: Bedside Glucose (Misc Panel) 250H 02/08/17 12:53: Activated Partial Thromboplast Time 59.6H 02/08/17 17:25: Bedside Glucose (Misc Panel) 203H 02/08/17 21:22: Bedside Glucose (Misc Panel) 254H CBC/BMP Laboratory Tests 02/08/17 04:33 Red Blood Count 4.23 L, Mean Corpuscular Volume 89.3, Mean Corpuscular Hemoglobin 29.2, Mean Corpuscular Hemoglobin Concent 32.6, Red Cell Distribution Width 15.8 H, Neutrophils (%) (Auto) 54.6, Lymphocytes (%) (Auto) 28.2, Monocytes (%) (Auto) 3.8, Eosinophils (%) (Auto) 8.2 H, Basophils (%) ( Auto) 0.9, Neutrophils # (Auto) 3.3, Lymphocytes # (Auto) 1.7, Monocytes # (Auto ) 0.2, Eosinophils # (Auto) 0.5, Basophils # (Auto) 0.0, Calcium Level 8.9 Microbiology Microbiology 02/04/17 Stool Occult Blood (ANTOINE) - Final, Complete 02/03/17 Stool Occult Blood (ANTOINE) - Final, Complete 01/31/17 Stool Occult Blood (ANTOINE) - Final, Complete 01/30/17 Stool Occult Blood (ANTOINE) - Final, Complete 01/29/17 Stool Occult Blood (ANTOINE) - Final, Complete Osmar Go MD Feb 08, 2017 23:10
[2017-02-09 00:36] VITALS: BP 135/60
[2017-02-09] MEDS: HEPARIN DRIP 25,000 UNITS in APPROPRIATE DILUENT 1 EA IV SCH ×3 (00:58→18:01)
[2017-02-09] MEDS: oxyCODONE 5MG TAB PO PRN ×3 (01:18→13:59)
[2017-02-09 04:29] VITALS: BP 159/84
[2017-02-09 04:32] LABS: BASO # 0.1 K/mm3 (0.0-0.2); BASO % 0.7 % (0.0-1.0); EOS # 0.5 K/mm3 (0.0-0.50); EOS % 6.7 % (0.0-3.0); LARGE UNSTAINED CELL # 0.3 K/mm3 (0.0-0.4); LARGE UNSTAINED CELL % 3.7 % (0.0-4.0); LYMPH # 1.9 K/mm3 (1.5-4.5); LYMPH % 20.9 % (24.0-44.0); MEAN CORPUSCULAR HEMOGLOBIN 28.4 pg (27.0-33.0); MEAN CORPUSCULAR HGB CONC 31.7 g/dl (32.0-36.5); MEAN CORPUSCULAR VOLUME 89.7 fl (80.0-96.0); MONO # 0.4 K/mm3 (0.0-0.8); MONO % 5.3 % (0.0-5.0); NEUTROPHILS # 4.8 K/mm3 (1.8-7.7); NEUTROPHILS % 62.6 % (36.0-66.0); PLATELET COUNT, AUTOMATED 428 k/mm3 (150-450); WHITE BLOOD COUNT 7.6 K/mm3 (4.0-10.0)
[2017-02-09 04:36] LABS: INR 1.07
[2017-02-09 04:47] LABS: ANION GAP 4 MEQ/L (8-16); BLOOD UREA NITROGEN 10 MG/DL (7-18); CALCIUM LEVEL 9.2 MG/DL (8.5-10.1); CARBON DIOXIDE LEVEL 32 MEQ/L (21-32); CHLORIDE LEVEL 105 MEQ/L (98-107); CREATININE FOR GFR 1.23 MG/DL (0.70-1.30); GLOMERULAR FILTRATION RATE > 60.0 (>56); GLUCOSE, FASTING 143 MG/DL (70-105); MAGNESIUM LEVEL 1.5 MG/DL (1.8-2.4); SODIUM LEVEL 141 MEQ/L (136-145)
[2017-02-09] MEDS: ACETAMINOPHEN TAB 650MG DOSE (2X325MG) PO PRN ×2 (05:16→18:07)
[2017-02-09] MEDS: HumaLOG INSULIN (NovoLOG) PER UNIT SC SCH ×4 (07:30→20:47)
[2017-02-09 08:00] VITALS: BP 152/72
[2017-02-09] MEDS: ALLOPURINOL 300 MG TAB PO SCH (08:27)
[2017-02-09] MEDS: MULTIVITAMINS/MINERALS THERAP 1 TAB PO SCH (08:27)
[2017-02-09] MEDS: DOCUSATE SODIUM 100 MG CAP PO SCH ×2 (08:27→20:43)
[2017-02-09] MEDS: VITAMIN D 1,000 INTERNATIONAL UNITS TABLET PO SCH (08:27)
[2017-02-09] MEDS: buPROPion **XL** TABLET 150MG (WELLBUTRIN XL) PO SCH (08:28)
[2017-02-09] MEDS: PANTOPRAZOLE 40MG TAB (PROTONIX) PO SCH (08:28)
[2017-02-09] MEDS: SENOKOT S TAB PO SCH ×2 (08:28→20:46)
[2017-02-09] MEDS: amLODIPine 5 MG TAB PO SCH ×2 (08:28→20:44)
[2017-02-09] MEDS: MAGNESIUM OXIDE 400 MG TAB (MAG-OX) PO SCH ×3 (08:29→20:43)
[2017-02-09] MEDS: PRIMIDONE 50 MG TAB PO SCH ×2 (08:29→20:45)
[2017-02-09] MEDS: ENALAPRIL MALEATE 10 MG TAB PO SCH (08:30)
[2017-02-09] MEDS: CARVedilol 12.5 MG TAB PO SCH ×2 (08:30→20:46)
[2017-02-09] MEDS: oxyCODONE 20 MG CR TAB PO SCH ×2 (08:32→20:47)
[2017-02-09] MEDS: MAG SULF 1GM/100ML (MAG RUN) 1 GM in APPROPRIATE DILUENT 1 EA IV SCH ×4 (09:17→13:46)
[2017-02-09] MEDS: GLIMEPIRIDE 2 MG TAB PO SCH ×2 (09:18→17:58)
--- NOTE | 2017-02-09 10:16 | REPUSA ---
Clinical history: Pain, swelling. Comparison: 01/08/2017. Findings: The left common femoral, superficial femoral, popliteal, and other deep venous structures c ompress normally and demonstrate normal color Doppler flow. Normal venous waveforms with augmentation are seen. There is a slightly enlarged left popliteal lymph node, a 1.7 x 1.1 cm. There is also an e nlarged lymph node in the proximal left thigh, measuring up to 4.3 cm. Impression: 1. No evidence of deep vein thrombosis in the left femoral popliteal venous system. 2. Prominent lymph nodes as described. Follow-up is recommended as clinically indicated.
[2017-02-09 12:00] VITALS: BP 146/78
--- NOTE | 2017-02-09 14:20 | IPNPDOC ---
Date Seen The patient was seen on 02/09/17. Progress Note Hospitalist Progress Note Subjective: Overall doing well other than LLE swelling Objective: Physical Exam: Vitals: Vital Sign - Last 24 Hours 02/08/17 02/08/17 02/08/17 02/08/17 16:00 16:00 20:00 20:00 Temp 98.1 98.8 Pulse 90 82 Resp 20 16 B/P (MAP) 140/66 (90) 177/77 (110) Pulse Ox 96 94 O2 Delivery Room Air Room Air Room Air Room Air 02/08/17 02/08/17 02/08/17 02/08/17 21:27 21:31 21:36 23:53 Pulse 82 82 Resp 16 B/P (MAP) 177/77 177/77 Pulse Ox 94 O2 Delivery Room Air 02/09/17 02/09/17 02/09/17 02/09/17 00:36 01:18 04:29 04:33 Temp 99.0 98.9 Pulse 77 79 Resp 18 20 20 B/P (MAP) 135/60 (85) 159/84 (109) Pulse Ox 96 94 97 O2 Delivery Room Air Room Air 02/09/17 02/09/17 02/09/17 02/09/17 05:16 05:59 08:00 08:00 Temp 99.0 Pulse 91 Resp 20 20 18 B/P (MAP) 152/72 (98) Pulse Ox 97 97 97 O2 Delivery Room Air Room Air 02/09/17 02/09/17 02/09/17 02/09/17 08:28 08:30 08:30 08:32 Pulse 86 84 Resp 16 B/P (MAP) 152/72 152/72 152/72 152/72 Pulse Ox 98 O2 Delivery Room Air 02/09/17 02/09/17 12:00 13:59 Temp 98.3 Pulse 74 Resp 18 20 B/P (MAP) 146/78 (100) 146/78 Pulse Ox 94 O2 Delivery Room Air Room Air General: Awake, Alert, no acute distress HEENT: Normocephalic, atraumatic, extraocular movements intact CV: Regular rate and rhythm Lungs: Clear to auscultation bilaterally Abd: Soft, nontender, nondistended Extremities: Left foot with wound vac Neuro: Alert and oriented 3, normal speech Psych: Normal mood and affect Labs and Imaging: Laboratory Tests 02/09/17 04:22 Red Blood Count 4.22 L, Mean Corpuscular Volume 89.7, Mean Corpuscular Hemoglobin 28.4, Mean Corpuscular Hemoglobin Concent 31.7 L, Red Cell Distribution Width 16.0 H, Neutrophils (%) (Auto) 62.6, Lymphocytes (%) (Auto) 20.9 L, Monocytes (%) (Auto) 5.3 H, Eosinophils (%) (Auto) 6.7 H, Basophils (%) (Auto) 0.7, Neutrophils # (Auto) 4.8, Lymphocytes # (Auto) 1.9, Monocytes # ( Auto) 0.4, Eosinophils # (Auto) 0.5, Basophils # (Auto) 0.1, Calcium Level 9.2 Assessment and Plan: 56-year-old male with diabetes mellitus type 2, hypertension, hyperlipidemia, depression, anxiety, gout, peripheral neuropathy, recent osteomyelitis of the left calcaneus who presented to the emergency department with chest pain relieved with nitroglycerin. Since discharge with PICC and IV antibiotics, the patient experienced a right upper extremity DVT, secondary to his PICC line. Even after the PICC line was moved to the left arm, he was noted to have a second DVT in that arm while on oral anticoagulation, so he was transitioned to Lovenox. He has now undergone thrombolysis and has been transferred to Dr. Go 's service. Unfortunately, over the weekend, his heparin drip was inadvertently stopped, and he developed another DVT. He has now undergone a second episode of thrombolysis for that DVT 1. Chest pain: The patient's cardiac markers have been negative 3. EKG is not indicative of acute infarct or ischemia. Echo shows normal EF, no wall motion abnormalities, and no diastolic dysfunction. The patient will need to follow-up with the blood bank coordinator for stress testing outpatient. Pain is now resolved. 2. Right upper extremity DVTs: Management as per Dr. Go. Currently on heparin drip transitioning to Coumadin. Hypercoagulability workup pending. INR has made very little upward trend; I would recommend considering increasing his coumadin dose. 3. Recent osteomyelitis of the left calcaneus: Status post 6 weeks of vancomycin. Continue wound vac. 4. Diabetes mellitus type 2: Continue home glimepiride, but have increased dose. May need to add metformin too if no improvement in a couple days. Sliding scale insulin while in-house. 5. Hypertension: Continue Norvasc, Coreg, RUPAL inhibitor. 6. Hyperlipidemia: Continue home statin. 7. Depression and anxiety: Continue home Elavil, Wellbutrin. 8. Gout: Not currently active. Continue home allopurinol. 9. Hypomagnesemia: On recent admission, patient required multiple IV replacement. Continue scheduled oral Mag-Ox. 10. Left lower extremity swelling: The patient does not appear to have a cellulitis. Left lower extremity Dopplers negative for DVT. However, an arterial ultrasound does show moderate to significant stenosis. We will defer management of this to Dr. Go. DVT prophylaxis: Heparin drip and Coumadin Dispo: as per the plan of his primary team [facility] Vital Signs Date Time Temp Pulse Resp B/P (MAP) Pulse Ox O2 Delivery O2 Flow Rate FiO2 02/09/17 13:59 20 146/78 Room Air 02/09/17 12:00 98.3 74 94 I&O- Last 24 Hours up to 6 AM 02/09/17 06:00 Intake Total 2916 ml Output Total 2650 ml Balance 266 ml Laboratory Data 24H LABS Laboratory Tests 2 02/08/17 17:25: Bedside Glucose (Misc Panel) 203H 02/08/17 21:22: Bedside Glucose (Misc Panel) 254H 02/09/17 00:55: Activated Partial Thromboplast Time 69.6H 02/09/17 04:22: White Blood Count 7.6, Red Blood Count 4.22L, Hemoglobin 12.0L, Hematocrit 37.9L , Mean Corpuscular Volume 89.7, Mean Corpuscular Hemoglobin 28.4, Mean Corpuscular Hemoglobin Concent 31.7L, Red Cell Distribution Width 16.0H, Platelet Count 428, Neutrophils (%) (Auto) 62.6, Lymphocytes (%) (Auto) 20.9L, Monocytes (%) (Auto) 5.3H, Eosinophils (%) (Auto) 6.7H, Basophils (%) (Auto) 0.7 , Neutrophils # (Auto) 4.8, Lymphocytes # (Auto) 1.9, Monocytes # (Auto) 0.4, Eosinophils # (Auto) 0.5, Basophils # (Auto) 0.1, Large Unclassified Cells % 3.7 , Large Unclassified Cells # 0.3, Prothrombin Time 14.0, Prothromb Time International Ratio 1.07, Anion Gap 4L, Glomerular Filtration Rate > 60.0, Blood Urea Nitrogen 10, Creatinine 1.23, Sodium Level 141, Potassium Level 4.0, Chloride Level 105, Carbon Dioxide Level 32, Calcium Level 9.2, Magnesium Level 1.5L 02/09/17 11:16: Bedside Glucose (Misc Panel) 243H 02/09/17 13:07: Activated Partial Thromboplast Time 56.0H CBC/BMP Laboratory Tests 02/09/17 04:22 Red Blood Count 4.22 L, Mean Corpuscular Volume 89.7, Mean Corpuscular Hemoglobin 28.4, Mean Corpuscular Hemoglobin Concent 31.7 L, Red Cell Distribution Width 16.0 H, Neutrophils (%) (Auto) 62.6, Lymphocytes (%) (Auto) 20.9 L, Monocytes (%) (Auto) 5.3 H, Eosinophils (%) (Auto) 6.7 H, Basophils (%) (Auto) 0.7, Neutrophils # (Auto) 4.8, Lymphocytes # (Auto) 1.9, Monocytes # ( Auto) 0.4, Eosinophils # (Auto) 0.5, Basophils # (Auto) 0.1, Calcium Level 9.2 Microbiology Microbiology 02/04/17 Stool Occult Blood (ANTOINE) - Final, Complete 02/03/17 Stool Occult Blood (ANTOINE) - Final, Complete 01/31/17 Stool Occult Blood (ANTOINE) - Final, Complete 01/30/17 Stool Occult Blood (ANTOINE) - Final, Complete DARLIN BURCIAGA Feb 09, 2017 14:20
[2017-02-09] MEDS ORDERED: HEPARIN SOD (PORCINE) 5000 UNITS/ML VIAL IV ONE (15:00)
[2017-02-09 16:00] VITALS: BP 140/77
[2017-02-09] MEDS: WARFARIN SOD 7.5 MG TAB PO SCH (17:58)
[2017-02-09 20:00] VITALS: BP 172/82
[2017-02-09] MEDS: AMITRIPTYLINE 25 MG TAB PO SCH (20:44)
[2017-02-09] MEDS: ATORVASTATIN 10 MG TAB PO SCH (20:46)
[2017-02-09] MEDS: DAKIN'S 0.25% HALF-STRENGTH SOLN 480 ML TOP SCH (20:48)
[2017-02-10] VITALS (7 sets, daily range): BP systolic 132–155; BP diastolic 67–82
[2017-02-10] MEDS: HEPARIN DRIP 25,000 UNITS in APPROPRIATE DILUENT 1 EA IV SCH ×3 (04:17→23:55)
[2017-02-10] MEDS: oxyCODONE 5MG TAB PO PRN ×3 (04:21→14:28)
[2017-02-10 05:02] LABS: BASO # 0.1 K/mm3 (0.0-0.2); BASO % 0.9 % (0.0-1.0); EOS # 0.5 K/mm3 (0.0-0.50); EOS % 7.7 % (0.0-3.0); LARGE UNSTAINED CELL # 0.3 K/mm3 (0.0-0.4); LARGE UNSTAINED CELL % 4.9 % (0.0-4.0); LYMPH # 1.6 K/mm3 (1.5-4.5); LYMPH % 27.4 % (24.0-44.0); MEAN CORPUSCULAR HEMOGLOBIN 29.6 pg (27.0-33.0); MEAN CORPUSCULAR HGB CONC 33.2 g/dl (32.0-36.5); MONO # 0.3 K/mm3 (0.0-0.8); MONO % 5.6 % (0.0-5.0); NEUTROPHILS # 3.2 K/mm3 (1.8-7.7); NEUTROPHILS % 53.5 % (36.0-66.0); PLATELET COUNT, AUTOMATED 477 k/mm3 (150-450); RED CELL DISTRIBUTION WIDTH 15.7 % (11.5-14.5)
[2017-02-10 05:37] LABS: INR 1.07
[2017-02-10 05:42] LABS: ANION GAP 7 MEQ/L (8-16); BLOOD UREA NITROGEN 11 MG/DL (7-18); CALCIUM LEVEL 9.2 MG/DL (8.5-10.1); CARBON DIOXIDE LEVEL 27 MEQ/L (21-32); CHLORIDE LEVEL 103 MEQ/L (98-107); CREATININE FOR GFR 1.18 MG/DL (0.70-1.30); GLOMERULAR FILTRATION RATE > 60.0 (>56); GLUCOSE, FASTING 239 MG/DL (70-105); MAGNESIUM LEVEL 1.7 MG/DL (1.8-2.4); POTASSIUM SERUM 4.1 MEQ/L (3.5-5.1); SODIUM LEVEL 137 MEQ/L (136-145)
[2017-02-10] MEDS: DAKIN'S 0.25% HALF-STRENGTH SOLN 480 ML TOP SCH ×3 (06:00→22:45)
[2017-02-10] MEDS: HumaLOG INSULIN (NovoLOG) PER UNIT SC SCH ×4 (07:57→20:49)
[2017-02-10] MEDS: GLIMEPIRIDE 2 MG TAB PO SCH ×2 (07:58→17:08)
[2017-02-10] MEDS: SENOKOT S TAB PO SCH ×2 (08:14→20:49)
[2017-02-10] MEDS: PRIMIDONE 50 MG TAB PO SCH ×2 (08:14→20:48)
[2017-02-10] MEDS: buPROPion **XL** TABLET 150MG (WELLBUTRIN XL) PO SCH (08:14)
[2017-02-10] MEDS: ENALAPRIL MALEATE 10 MG TAB PO SCH (08:17)
[2017-02-10] MEDS: DOCUSATE SODIUM 100 MG CAP PO SCH ×2 (08:18→20:49)
[2017-02-10] MEDS: ALLOPURINOL 300 MG TAB PO SCH (08:18)
[2017-02-10] MEDS: VITAMIN D 1,000 INTERNATIONAL UNITS TABLET PO SCH (08:18)
[2017-02-10] MEDS: CARVedilol 12.5 MG TAB PO SCH ×2 (08:19→20:49)
[2017-02-10] MEDS: PANTOPRAZOLE 40MG TAB (PROTONIX) PO SCH (08:19)
[2017-02-10] MEDS: MULTIVITAMINS/MINERALS THERAP 1 TAB PO SCH (08:19)
[2017-02-10] MEDS: amLODIPine 5 MG TAB PO SCH ×2 (08:20→20:49)
[2017-02-10] MEDS: MIRALAX *UNIT DOSE* 17GM PACKET PO SCH (08:20)
[2017-02-10] MEDS: oxyCODONE 20 MG CR TAB PO SCH ×2 (08:26→20:48)
[2017-02-10] MEDS: MAG SULF 1GM/100ML (MAG RUN) 1 GM in APPROPRIATE DILUENT 1 EA IV SCH ×2 (09:27→10:43)
[2017-02-10] MEDS: MAGNESIUM OXIDE 400 MG TAB (MAG-OX) PO SCH ×3 (10:42→20:48)
[2017-02-10] MEDS ORDERED: WARFARIN SOD 5 MG TAB PO ONE (17:00)
[2017-02-10] MEDS: AMITRIPTYLINE 25 MG TAB PO SCH (20:48)
[2017-02-10] MEDS: ATORVASTATIN 10 MG TAB PO SCH (20:48)
[2017-02-11] MEDS: oxyCODONE 5MG TAB PO PRN ×3 (03:10→17:31)
[2017-02-11] MEDS: DAKIN'S 0.25% HALF-STRENGTH SOLN 480 ML TOP SCH ×3 (05:43→21:06)
[2017-02-11 06:00] VITALS: BP 147/70
[2017-02-11 07:10] LABS: INR 1.07
[2017-02-11] MEDS: VITAMIN D 1,000 INTERNATIONAL UNITS TABLET PO SCH (10:13)
[2017-02-11] MEDS: oxyCODONE 20 MG CR TAB PO SCH ×2 (10:13→21:04)
[2017-02-11] MEDS: buPROPion **XL** TABLET 150MG (WELLBUTRIN XL) PO SCH (10:14)
[2017-02-11] MEDS: PRIMIDONE 50 MG TAB PO SCH ×2 (10:14→21:05)
[2017-02-11] MEDS: ENALAPRIL MALEATE 10 MG TAB PO SCH (10:14)
[2017-02-11] MEDS: DOCUSATE SODIUM 100 MG CAP PO SCH ×2 (10:15→21:05)
[2017-02-11] MEDS: MAGNESIUM OXIDE 400 MG TAB (MAG-OX) PO SCH ×3 (10:15→21:05)
[2017-02-11] MEDS: GLIMEPIRIDE 2 MG TAB PO SCH ×2 (10:15→17:31)
[2017-02-11] MEDS: SENOKOT S TAB PO SCH ×2 (10:15→21:00)
[2017-02-11] MEDS: MULTIVITAMINS/MINERALS THERAP 1 TAB PO SCH (10:16)
[2017-02-11] MEDS: CARVedilol 12.5 MG TAB PO SCH ×2 (10:16→21:04)
[2017-02-11] MEDS: amLODIPine 5 MG TAB PO SCH ×2 (10:16→21:05)
[2017-02-11] MEDS: ALLOPURINOL 300 MG TAB PO SCH (10:16)
[2017-02-11] MEDS: PANTOPRAZOLE 40MG TAB (PROTONIX) PO SCH (10:16)
[2017-02-11] MEDS: HumaLOG INSULIN (NovoLOG) PER UNIT SC SCH ×4 (10:20→21:00)
[2017-02-11] MEDS: HEPARIN DRIP 25,000 UNITS in APPROPRIATE DILUENT 1 EA IV SCH ×2 (10:26→21:41)
[2017-02-11 12:55] VITALS: BP 144/70
--- NOTE | 2017-02-11 13:44 | IPNPDOC ---
Date Seen The patient was seen on 02/11/17. Progress Note SUBJECTIVE: Patient is without complaints OBJECTIVE PHYSICAL EXAMINATION: VITAL SIGNS: Please see below. GENERAL: Awake alert lying in bed comfortably HEENT: Normal CARDIOVASCULAR: Regular Rate and rhythm. RESPIRATORY: Clear to auscultation. ABDOMINAL: Soft nontender nondistended EXTREMITIES: Right upper extremity stable with minimal swelling and discomfort. Left foot wounds healing well with good granulation tissue. Left lower extremity swelling unchanged. NEUROLOGICAL: Awake alert oriented 3 with no focal deficits PSYCHOLOGICAL: Normal LABORATORY DATA: Please see below. MICROBIOLOGY: Please see below. DVT prophylaxis ordered?: Patient is currently on heparin drip and being converted to Coumadin ASSESSMENT AND PLAN: This is a 56-year-old male with left foot osteomyelitis and wounds requiring a right upper extremity PICC line for IV antibiotic therapy who subsequently developed right upper extremity DVT. Patient underwent right upper extremity venous lysis and angioplasty of the axillary vein and subclinical vein with good result. Patient is currently on a heparin drip and being converted to Coumadin. PROBLEMS: 1. Right upper extremity DVT: Upper extremity is stable and the patient is currently being converted from heparin to Coumadin. The patient has been on high doses of Coumadin with only minimal changes in his INR. Patient requires an INR of 2.5-3.5 prior to being able to be discharged. 2. Left lower extremity wounds and swelling: In his had multiple ultrasounds of the left lower Huyen showing no evidence of DVT and is currently on a heparin drip and being converted to Coumadin. The wounds in the left lower extremity are clean and healing well. The swelling in the left lower extremity is most likely secondary to his infection and osteomyelitis with some possible lymphedema related to his infection and osteomyelitis. Patient is currently undergoing wet to dry dressings for his left foot ulcers and will subsequently undergo VAC placement in the next 2-3 days. DISPOSITION: Patient will require hospitalization until his INR is 2.5-3.5 and will continue on a heparin drip until that time. VS, I&O, 24H, [facility] Vital Signs/I&O Vital Signs Date Time Temp Pulse Resp B/P (MAP) Pulse Ox O2 Delivery O2 Flow Rate FiO2 02/11/17 13:15 18 02/11/17 12:55 87 144/70 (94) 02/11/17 06:00 97.3 95 Room Air I&O- Last 24 Hours up to 6 AM 02/12/17 05:59 Intake Total 480 ml Output Total 1175 ml Balance -695 ml Laboratory Data 24H LABS Laboratory Tests 2 02/10/17 17:47: Bedside Glucose (Misc Panel) 182H 02/10/17 20:38: Bedside Glucose (Misc Panel) 193H 02/11/17 00:56: Activated Partial Thromboplast Time 61.9H 02/11/17 05:10: Bedside Glucose (Misc Panel) 235H 02/11/17 06:30: Prothrombin Time 14.1, Prothromb Time International Ratio 1.07 02/11/17 12:53: Microbiology Microbiology 02/04/17 Stool Occult Blood (ANTOINE) - Final, Complete 02/03/17 Stool Occult Blood (ANTOINE) - Final, Complete Osmar Go MD Feb 11, 2017 13:44
[2017-02-11 14:00] VITALS: BP 155/74
[2017-02-11] MEDS ORDERED: HEPARIN SOD (PORCINE) 5000 UNITS/ML VIAL IV ONE (14:30)
[2017-02-11] MEDS ORDERED: WARFARIN SOD 5 MG TAB PO ONE (17:00)
[2017-02-11] MEDS: ATORVASTATIN 10 MG TAB PO SCH (21:04)
[2017-02-11] MEDS: AMITRIPTYLINE 25 MG TAB PO SCH (21:05)
[2017-02-11 22:00] VITALS: BP 148/71
[2017-02-12] MEDS: oxyCODONE 5MG TAB PO PRN ×4 (00:59→18:36)
[2017-02-12 02:00] VITALS: BP 150/73
[2017-02-12] MEDS: DAKIN'S 0.25% HALF-STRENGTH SOLN 480 ML TOP SCH ×3 (05:25→23:08)
[2017-02-12 06:00] VITALS: BP 135/75
[2017-02-12 06:15] LABS: INR 1.06
[2017-02-12] MEDS: HumaLOG INSULIN (NovoLOG) PER UNIT SC SCH ×4 (07:32→21:00)
[2017-02-12] MEDS: GLIMEPIRIDE 2 MG TAB PO SCH ×2 (07:33→17:04)
[2017-02-12] MEDS: oxyCODONE 20 MG CR TAB PO SCH ×2 (08:39→23:08)
[2017-02-12] MEDS: PANTOPRAZOLE 40MG TAB (PROTONIX) PO SCH (08:40)
[2017-02-12] MEDS: buPROPion **XL** TABLET 150MG (WELLBUTRIN XL) PO SCH (08:40)
[2017-02-12] MEDS: MAGNESIUM OXIDE 400 MG TAB (MAG-OX) PO SCH ×3 (08:40→21:52)
[2017-02-12] MEDS: SENOKOT S TAB PO SCH ×2 (08:40→21:52)
[2017-02-12] MEDS: DOCUSATE SODIUM 100 MG CAP PO SCH ×2 (08:40→21:51)
[2017-02-12] MEDS: MIRALAX *UNIT DOSE* 17GM PACKET PO SCH (08:40)
[2017-02-12] MEDS: MULTIVITAMINS/MINERALS THERAP 1 TAB PO SCH (08:40)
[2017-02-12] MEDS: ALLOPURINOL 300 MG TAB PO SCH (08:40)
[2017-02-12] MEDS: VITAMIN D 1,000 INTERNATIONAL UNITS TABLET PO SCH (08:41)
[2017-02-12] MEDS: CARVedilol 12.5 MG TAB PO SCH ×2 (08:41→21:52)
[2017-02-12] MEDS: ENALAPRIL MALEATE 10 MG TAB PO SCH (08:41)
[2017-02-12] MEDS: amLODIPine 5 MG TAB PO SCH ×2 (08:41→21:51)
[2017-02-12] MEDS: PRIMIDONE 50 MG TAB PO SCH ×2 (08:44→21:51)
--- NOTE | 2017-02-12 10:10 | IPNPDOC ---
Subjective Date Seen The patient was seen on 02/12/17. Subjective Chief Complaint/HPI Patient seen and examined at the bedside. Denies any acute complaints at this time. Objective Physical Examination General Exam: Positive: Alert, Cooperative, No Acute Distress ENT Exam: Positive: Atraumatic, Mucous membr. moist/pink Neck Exam: Negative: JVD Chest Exam: Positive: Clear to auscultation, Normal air movement Heart Exam: Positive: Rate Normal, Normal S1, Normal S2 Abdomen Exam: Positive: Soft, Negative: Tenderness Extremity Exam: Positive: Other (LLE (foot) noted to be wrapped in surgical dressing. LLE noted to be more edematous then RLE. No tenderness to palpation.) Psych Exam: Positive: Oriented x 3 Assessment /Plan Plan/VTE VTE Prophylaxis Ordered?: Yes Plan Right upper extremity DVT s/p venous lysis and angioplasty of the axillary and subclavian veins Currently on Heparin gtt bridge to Coumadin Agree with continued uptitration of Coumadin dosing to reflect a goal INR between 2.5-3.5 Osteomyelitis of the Left Calcaneus s/p I&D, IV Abx infusion Follows with Dr. Izaguirre of Podiatry Left lower extremity swelling likely 2/2 above Left lower extremity ultrasound negative for DVT We will continue to monitor Diabetes mellitus Cont ISS, Glimepiride Hypertension Cont current regimen Dyslipidemia Cont Statin Depression/anxiety Continue Elavil, Wellbutrin Gout Cont allopurinol DVT prophylaxis Currently on heparin drip bridging to Coumadin VS, I&O, 24H, [facility] Vital Signs/I&O Vital Signs Date Time Temp Pulse Resp B/P (MAP) Pulse Ox O2 Delivery O2 Flow Rate FiO2 02/12/17 08:41 80 135/75 02/12/17 08:39 18 02/12/17 06:00 97.4 95 Room Air I&O- Last 24 Hours up to 6 AM 02/13/17 05:59 Intake Total 745 ml Balance 745 ml Laboratory Data 24H LABS Laboratory Tests 2 02/11/17 11:22: Bedside Glucose (Misc Panel) 180H 02/11/17 12:53: Activated Partial Thromboplast Time 48.4H 02/11/17 16:35: Bedside Glucose (Misc Panel) 211H 02/11/17 20:42: Bedside Glucose (Misc Panel) 170H 02/11/17 22:17: Activated Partial Thromboplast Time 63.3H 02/12/17 05:59: Prothrombin Time 13.9, Prothromb Time International Ratio 1.06 02/12/17 06:22: Bedside Glucose (Misc Panel) 209H Microbiology Microbiology 02/04/17 Stool Occult Blood (ANTOINE) - Final, Complete 02/03/17 Stool Occult Blood (ANTOINE) - Final, Complete NINA DOTSON MD Feb 12, 2017 10:10
[2017-02-12] MEDS: HEPARIN DRIP 25,000 UNITS in APPROPRIATE DILUENT 1 EA IV SCH ×3 (11:43→22:43)
[2017-02-12 14:15] VITALS: BP 151/72
[2017-02-12] MEDS ORDERED: WARFARIN SOD 5 MG TAB PO ONE (17:00)
[2017-02-12] MEDS: ACETAMINOPHEN TAB 650MG DOSE (2X325MG) PO PRN (17:06)
[2017-02-12 18:00] VITALS: BP 138/64
[2017-02-12] MEDS: ATORVASTATIN 10 MG TAB PO SCH (21:52)
[2017-02-12] MEDS: AMITRIPTYLINE 25 MG TAB PO SCH (21:52)
[2017-02-12 22:00] VITALS: BP 158/76
[2017-02-13 02:00] VITALS: BP 152/80
[2017-02-13] MEDS: oxyCODONE 5MG TAB PO PRN ×3 (02:09→18:53)
[2017-02-13] MEDS: HEPARIN DRIP 25,000 UNITS in APPROPRIATE DILUENT 1 EA IV SCH ×2 (03:12→12:51)
[2017-02-13] MEDS: DAKIN'S 0.25% HALF-STRENGTH SOLN 480 ML TOP SCH (05:44)
[2017-02-13 06:00] VITALS: BP 134/70
[2017-02-13] MEDS: GLIMEPIRIDE 2 MG TAB PO SCH ×2 (07:30→17:19)
[2017-02-13] MEDS: MAGNESIUM OXIDE 400 MG TAB (MAG-OX) PO SCH ×3 (08:05→20:13)
[2017-02-13] MEDS: oxyCODONE 20 MG CR TAB PO SCH ×2 (08:05→20:15)
[2017-02-13] MEDS: CARVedilol 12.5 MG TAB PO SCH ×2 (08:05→20:12)
[2017-02-13] MEDS: MULTIVITAMINS/MINERALS THERAP 1 TAB PO SCH (08:05)
[2017-02-13] MEDS: ENALAPRIL MALEATE 10 MG TAB PO SCH (08:05)
[2017-02-13] MEDS: buPROPion **XL** TABLET 150MG (WELLBUTRIN XL) PO SCH (08:05)
[2017-02-13] MEDS: PANTOPRAZOLE 40MG TAB (PROTONIX) PO SCH (08:05)
[2017-02-13] MEDS: SENOKOT S TAB PO SCH ×2 (08:05→20:12)
[2017-02-13] MEDS: ALLOPURINOL 300 MG TAB PO SCH (08:05)
[2017-02-13] MEDS: VITAMIN D 1,000 INTERNATIONAL UNITS TABLET PO SCH (08:05)
[2017-02-13] MEDS: amLODIPine 5 MG TAB PO SCH ×2 (09:00→20:14)
[2017-02-13] MEDS: DOCUSATE SODIUM 100 MG CAP PO SCH ×2 (09:00→20:13)
[2017-02-13] MEDS: PRIMIDONE 50 MG TAB PO SCH ×2 (09:14→20:14)
[2017-02-13] MEDS: HumaLOG INSULIN (NovoLOG) PER UNIT SC SCH ×4 (09:14→21:00)
[2017-02-13 10:00] VITALS: BP 143/87
[2017-02-13 12:22] LABS: INR 1.1
[2017-02-13 14:00] VITALS: BP 150/78
[2017-02-13] MEDS: WARFARIN SOD 5 MG TAB PO SCH (17:20)
[2017-02-13] MEDS: ATORVASTATIN 10 MG TAB PO SCH (20:13)
[2017-02-13] MEDS: AMITRIPTYLINE 25 MG TAB PO SCH (20:13)
[2017-02-13 22:00] VITALS: BP 141/82
[2017-02-13] MEDS ORDERED: HEPARIN SOD (PORCINE) 5000 UNITS/ML VIAL IV PRN (23:45)
[2017-02-14] MEDS: HEPARIN DRIP 25,000 UNITS in APPROPRIATE DILUENT 1 EA IV SCH ×3 (00:23→20:25)
[2017-02-14] MEDS: oxyCODONE 5MG TAB PO PRN ×4 (00:31→18:08)
[2017-02-14 02:00] VITALS: BP 147/70
[2017-02-14 05:22] LABS: INR 1.14
[2017-02-14 06:00] VITALS: BP 155/85
[2017-02-14] MEDS: PRIMIDONE 50 MG TAB PO SCH ×2 (09:06→20:55)
[2017-02-14] MEDS: oxyCODONE 20 MG CR TAB PO SCH ×2 (09:06→20:57)
[2017-02-14] MEDS: MAGNESIUM OXIDE 400 MG TAB (MAG-OX) PO SCH ×3 (09:07→20:55)
[2017-02-14] MEDS: ENALAPRIL MALEATE 10 MG TAB PO SCH (09:09)
[2017-02-14] MEDS: VITAMIN D 1,000 INTERNATIONAL UNITS TABLET PO SCH (09:10)
[2017-02-14] MEDS: buPROPion **XL** TABLET 150MG (WELLBUTRIN XL) PO SCH (09:10)
[2017-02-14] MEDS: SENOKOT S TAB PO SCH ×2 (09:11→20:56)
[2017-02-14] MEDS: GLIMEPIRIDE 2 MG TAB PO SCH ×2 (09:11→18:40)
[2017-02-14] MEDS: PANTOPRAZOLE 40MG TAB (PROTONIX) PO SCH (09:12)
[2017-02-14] MEDS: CARVedilol 12.5 MG TAB PO SCH ×2 (09:13→20:56)
[2017-02-14] MEDS: MULTIVITAMINS/MINERALS THERAP 1 TAB PO SCH (09:13)
[2017-02-14] MEDS: MIRALAX *UNIT DOSE* 17GM PACKET PO SCH (09:14)
[2017-02-14] MEDS: DOCUSATE SODIUM 100 MG CAP PO SCH ×2 (09:14→20:56)
[2017-02-14] MEDS: amLODIPine 5 MG TAB PO SCH ×2 (09:14→20:56)
[2017-02-14] MEDS: HumaLOG INSULIN (NovoLOG) PER UNIT SC SCH ×4 (09:18→20:57)
[2017-02-14] MEDS: ALLOPURINOL 300 MG TAB PO SCH (09:23)
[2017-02-14 14:00] VITALS: BP 162/82
[2017-02-14] MEDS: WARFARIN SOD 5 MG TAB PO SCH (16:50)
[2017-02-14 18:00] VITALS: BP 153/81
[2017-02-14] MEDS: AMITRIPTYLINE 25 MG TAB PO SCH (20:56)
[2017-02-14] MEDS: ATORVASTATIN 10 MG TAB PO SCH (20:56)
[2017-02-14 22:00] VITALS: BP 178/86
[2017-02-15 02:00] VITALS: BP 163/81
[2017-02-15] MEDS: oxyCODONE 5MG TAB PO PRN ×3 (04:39→17:08)
[2017-02-15 06:00] VITALS: BP 154/87
[2017-02-15] MEDS: HEPARIN DRIP 25,000 UNITS in APPROPRIATE DILUENT 1 EA IV SCH ×2 (06:06→16:18)
[2017-02-15 06:33] LABS: INR 1.2
[2017-02-15] MEDS: oxyCODONE 20 MG CR TAB PO SCH ×2 (08:47→21:37)
[2017-02-15] MEDS: SENOKOT S TAB PO SCH ×2 (08:49→21:37)
[2017-02-15] MEDS: CARVedilol 12.5 MG TAB PO SCH ×2 (08:49→21:36)
[2017-02-15] MEDS: GLIMEPIRIDE 2 MG TAB PO SCH ×2 (08:49→17:09)
[2017-02-15] MEDS: PRIMIDONE 50 MG TAB PO SCH ×2 (08:51→21:35)
[2017-02-15] MEDS: ALLOPURINOL 300 MG TAB PO SCH (08:51)
[2017-02-15] MEDS: ENALAPRIL MALEATE 10 MG TAB PO SCH (08:51)
[2017-02-15] MEDS: PANTOPRAZOLE 40MG TAB (PROTONIX) PO SCH (08:52)
[2017-02-15] MEDS: buPROPion **XL** TABLET 150MG (WELLBUTRIN XL) PO SCH (08:52)
[2017-02-15] MEDS: VITAMIN D 1,000 INTERNATIONAL UNITS TABLET PO SCH (08:53)
[2017-02-15] MEDS: MULTIVITAMINS/MINERALS THERAP 1 TAB PO SCH (08:54)
[2017-02-15] MEDS: DOCUSATE SODIUM 100 MG CAP PO SCH ×2 (08:54→21:36)
[2017-02-15] MEDS: amLODIPine 5 MG TAB PO SCH ×2 (08:54→21:36)
[2017-02-15] MEDS: MAGNESIUM OXIDE 400 MG TAB (MAG-OX) PO SCH ×3 (08:55→21:35)
[2017-02-15] MEDS: HumaLOG INSULIN (NovoLOG) PER UNIT SC SCH ×4 (09:02→21:38)
[2017-02-15 10:00] VITALS: BP 138/72
--- NOTE | 2017-02-15 10:42 | IPNPDOC ---
Subjective Date Seen The patient was seen on 02/15/17. Subjective Chief Complaint/HPI Patient seen and examined at the bedside. Denies any acute complaints, does state that he is anxious to hopefully return home soon. Objective Physical Examination General Exam: Positive: Alert, Cooperative, No Acute Distress ENT Exam: Positive: Atraumatic, Mucous membr. moist/pink Neck Exam: Negative: JVD Chest Exam: Positive: Clear to auscultation, Normal air movement Heart Exam: Positive: Rate Normal, Normal S1, Normal S2 Abdomen Exam: Positive: Soft, Negative: Tenderness Extremity Exam: Positive: Other (LLE (foot) noted to be wrapped in surgical dressing. +Wound Vac LLE noted to be more edematous then RLE. No tenderness to palpation.) Psych Exam: Positive: Oriented x 3 Assessment /Plan Plan/VTE VTE Prophylaxis Ordered?: Yes Plan Right upper extremity DVT s/p venous lysis and angioplasty of the axillary and subclavian veins Currently on Heparin gtt bridge to Coumadin Agree with continued up-titration of Coumadin dosing to reflect a goal INR between 2.5-3.5 Osteomyelitis of the Left Calcaneus s/p I&D, IV Abx infusion +Wound Vac Follows with Dr. Izaguirre of Podiatry Left lower extremity swelling likely 2/2 above Left lower extremity ultrasound negative for DVT We will continue to monitor Diabetes mellitus Cont ISS, Glimepiride Hypertension Cont current regimen Dyslipidemia Cont Statin Depression/anxiety Continue Elavil, Wellbutrin Gout Cont allopurinol DVT prophylaxis Currently on heparin drip bridging to Coumadin VS, I&O, 24H, [facility] Vital Signs/I&O Vital Signs Date Time Temp Pulse Resp B/P (MAP) Pulse Ox O2 Delivery O2 Flow Rate FiO2 02/15/17 08:54 88 132/81 02/15/17 08:47 18 02/15/17 06:00 97.6 95 Room Air I&O- Last 24 Hours up to 6 AM 02/16/17 06:00 Output Total 50 ml Balance -50 ml Laboratory Data 24H LABS Laboratory Tests 2 02/14/17 11:28: Bedside Glucose (Misc Panel) 258H 02/14/17 16:54: Bedside Glucose (Misc Panel) 160H 02/14/17 18:38: Activated Partial Thromboplast Time 78.8H 02/14/17 20:54: Bedside Glucose (Misc Panel) 233H 02/15/17 05:57: Prothrombin Time 15.4H, Prothromb Time International Ratio 1.20, Activated Partial Thromboplast Time 77.8H 02/15/17 06:41: Bedside Glucose (Misc Panel) 166H Microbiology Microbiology 02/12/17 Stool Occult Blood (ANTOINE) - Final, Complete NINA DOTSON MD Feb 15, 2017 10:41
[2017-02-15 14:00] VITALS: BP 144/72
[2017-02-15] MEDS: ACETAMINOPHEN TAB 650MG DOSE (2X325MG) PO PRN (14:17)
[2017-02-15] MEDS: WARFARIN SOD 5 MG TAB PO SCH (16:20)
[2017-02-15 18:00] VITALS: BP 142/81
[2017-02-15] MEDS ORDERED: HEPARIN SOD (PORCINE) 5000 UNITS/ML VIAL IV ONE (19:00)
[2017-02-15] MEDS: ATORVASTATIN 10 MG TAB PO SCH (21:35)
[2017-02-15] MEDS: AMITRIPTYLINE 25 MG TAB PO SCH (21:36)
[2017-02-15 22:00] VITALS: BP 146/83
--- NOTE | 2017-02-15 23:06 | IPNPDOC ---
Date Seen The patient was seen on 02/15/17. Progress Note SUBJECTIVE: Patient is without complaints OBJECTIVE PHYSICAL EXAMINATION: VITAL SIGNS: Please see below. GENERAL: Sitting in the chair resting comfortably HEENT: Normal CARDIOVASCULAR: Regular rate and rhythm. RESPIRATORY: Clear to auscultation bilaterally. ABDOMINAL: Soft nontender nondistended with no palpable pulsatile mass EXTREMITIES: Right upper extremity is well-perfused with minimal swelling. Left foot wounds are clean with good granulation tissue in fact dressing in place NEUROLOGICAL: Alert oriented x3 PSYCHOLOGICAL: Normal LABORATORY DATA: Please see below. MICROBIOLOGY: Please see below. DVT prophylaxis ordered?: Patient is currently therapeutic on heparin being converted to Coumadin ASSESSMENT AND PLAN: This is a 56-year-old male with a right upper extremity DVT status post thrombolysis who is doing well. Patient also has left lower extremity foot ulcers which are being treated with VAC dressing. PROBLEMS: 1. right upper extremity DVT: She is currently therapeutic on heparin and being converted to Coumadin. 2. left foot wounds: Wounds are healing well and currently there is a VAC dressing in place. DISPOSITION: Patient will be discharged once she is therapeutic on Coumadin with an INR between 2.5 3.5. VS, I&O, 24H, [facility] Vital Signs/I&O Vital Signs Date Time Temp Pulse Resp B/P (MAP) Pulse Ox O2 Delivery O2 Flow Rate FiO2 02/15/17 22:00 98.3 96 18 146/83 (104) 93 Room Air I&O- Last 24 Hours up to 6 AM 02/16/17 05:59 Intake Total 1656 ml Output Total 50 ml Balance 1606 ml Laboratory Data 24H LABS Laboratory Tests 2 02/15/17 05:57: Prothrombin Time 15.4H, Prothromb Time International Ratio 1.20, Activated Partial Thromboplast Time 77.8H 02/15/17 06:41: Bedside Glucose (Misc Panel) 166H 02/15/17 11:35: Bedside Glucose (Misc Panel) 217H 02/15/17 16:31: Bedside Glucose (Misc Panel) 228H 02/15/17 18:01: Activated Partial Thromboplast Time 44.7H Microbiology Microbiology 02/12/17 Stool Occult Blood (ANTOINE) - Final, Complete Osmar Go MD Feb 15, 2017 23:06
--- NOTE | 2017-02-15 23:14 | IPNPDOC ---
Date Seen The patient was seen on 02/14/17. Progress Note SUBJECTIVE: Patient is without complaints OBJECTIVE PHYSICAL EXAMINATION: VITAL SIGNS: Please see below. GENERAL: Lying in bed comfortably HEENT: Normal CARDIOVASCULAR: Regular rate and rhythm. RESPIRATORY: Clear to auscultation bilaterally. ABDOMINAL: Soft nontender nondistended EXTREMITIES: Right upper extremity with minimal edema. Left foot wound is clean with good granulation tissue. NEUROLOGICAL: Awake alert oriented x3 PSYCHOLOGICAL: Normal LABORATORY DATA: Please see below. MICROBIOLOGY: Please see below. DVT prophylaxis ordered?: Patient currently therapeutic on heparin being converted to Coumadin ASSESSMENT AND PLAN: This is a 56 she'll now with left foot wounds and right upper extremity DVT Status post thrombolysis. PROBLEMS: 1. right upper extremity DVT: Patient is currently therapeutic on heparin status post thrombolysis and being converted to Coumadin. 2. left foot wounds: VAC dressing in place. DISPOSITION: The patient currently therapeutic on heparin and being converted to Coumadin. VS, I&O, 24H, [facility] Vital Signs/I&O Vital Signs Date Time Temp Pulse Resp B/P (MAP) Pulse Ox O2 Delivery O2 Flow Rate FiO2 02/15/17 22:00 98.3 96 18 146/83 (104) 93 Room Air I&O- Last 24 Hours up to 6 AM 02/16/17 05:59 Intake Total 1656 ml Output Total 50 ml Balance 1606 ml Laboratory Data 24H LABS Laboratory Tests 2 02/15/17 05:57: Prothrombin Time 15.4H, Prothromb Time International Ratio 1.20, Activated Partial Thromboplast Time 77.8H 02/15/17 06:41: Bedside Glucose (Misc Panel) 166H 02/15/17 11:35: Bedside Glucose (Misc Panel) 217H 02/15/17 16:31: Bedside Glucose (Misc Panel) 228H 02/15/17 18:01: Activated Partial Thromboplast Time 44.7H Microbiology Microbiology 02/12/17 Stool Occult Blood (ANTOINE) - Final, Complete Osmar Go MD Feb 15, 2017 23:14
[2017-02-16 02:00] VITALS: BP 146/76
[2017-02-16] MEDS: oxyCODONE 5MG TAB PO PRN ×4 (02:04→17:07)
[2017-02-16] MEDS: HEPARIN DRIP 25,000 UNITS in APPROPRIATE DILUENT 1 EA IV SCH ×5 (02:04→22:24)
[2017-02-16 06:00] VITALS: BP 152/70
[2017-02-16 06:35] LABS: INR 1.24
[2017-02-16] MEDS: HumaLOG INSULIN (NovoLOG) PER UNIT SC SCH ×4 (08:39→20:41)
[2017-02-16] MEDS: oxyCODONE 20 MG CR TAB PO SCH ×2 (08:41→20:44)
[2017-02-16] MEDS: GLIMEPIRIDE 2 MG TAB PO SCH ×2 (08:42→17:06)
[2017-02-16] MEDS: VITAMIN D 1,000 INTERNATIONAL UNITS TABLET PO SCH (08:42)
[2017-02-16] MEDS: ENALAPRIL MALEATE 10 MG TAB PO SCH (08:43)
[2017-02-16] MEDS: SENOKOT S TAB PO SCH ×2 (08:44→20:42)
[2017-02-16] MEDS: buPROPion **XL** TABLET 150MG (WELLBUTRIN XL) PO SCH (08:44)
[2017-02-16] MEDS: PANTOPRAZOLE 40MG TAB (PROTONIX) PO SCH (08:44)
[2017-02-16] MEDS: PRIMIDONE 50 MG TAB PO SCH ×2 (08:44→20:42)
[2017-02-16] MEDS: MULTIVITAMINS/MINERALS THERAP 1 TAB PO SCH (08:45)
[2017-02-16] MEDS: DOCUSATE SODIUM 100 MG CAP PO SCH ×2 (08:45→20:42)
[2017-02-16] MEDS: ALLOPURINOL 300 MG TAB PO SCH (08:45)
[2017-02-16] MEDS: CARVedilol 12.5 MG TAB PO SCH ×2 (08:45→20:43)
[2017-02-16] MEDS: amLODIPine 5 MG TAB PO SCH ×2 (08:45→20:43)
[2017-02-16] MEDS: MAGNESIUM OXIDE 400 MG TAB (MAG-OX) PO SCH ×3 (08:46→20:43)
[2017-02-16] MEDS: MIRALAX *UNIT DOSE* 17GM PACKET PO SCH (09:00)
[2017-02-16 10:00] VITALS: BP 148/80
[2017-02-16 14:00] VITALS: BP 152/56
[2017-02-16] MEDS: ACETAMINOPHEN TAB 650MG DOSE (2X325MG) PO PRN (16:49)
[2017-02-16] MEDS: WARFARIN SOD 5 MG TAB PO SCH (17:05)
[2017-02-16 18:00] VITALS: BP 140/76
[2017-02-16] MEDS: AMITRIPTYLINE 25 MG TAB PO SCH (20:41)
[2017-02-16] MEDS: ATORVASTATIN 10 MG TAB PO SCH (20:42)
[2017-02-16 22:00] VITALS: BP 148/74
[2017-02-17] VITALS (7 sets, daily range): BP systolic 127–168; BP diastolic 75–90
[2017-02-17] MEDS: oxyCODONE 5MG TAB PO PRN ×4 (02:17→17:01)
[2017-02-17 06:46] LABS: INR 1.14
[2017-02-17] MEDS: HumaLOG INSULIN (NovoLOG) PER UNIT SC SCH ×4 (07:50→21:00)
[2017-02-17] MEDS: GLIMEPIRIDE 2 MG TAB PO SCH ×2 (07:50→16:56)
[2017-02-17] MEDS: HEPARIN DRIP 25,000 UNITS in APPROPRIATE DILUENT 1 EA IV SCH ×2 (08:42→17:56)
[2017-02-17] MEDS: PANTOPRAZOLE 40MG TAB (PROTONIX) PO SCH (09:31)
[2017-02-17] MEDS: SENOKOT S TAB PO SCH ×2 (09:31→21:04)
[2017-02-17] MEDS: DOCUSATE SODIUM 100 MG CAP PO SCH ×2 (09:31→21:04)
[2017-02-17] MEDS: MULTIVITAMINS/MINERALS THERAP 1 TAB PO SCH (09:31)
[2017-02-17] MEDS: ALLOPURINOL 300 MG TAB PO SCH (09:32)
[2017-02-17] MEDS: ENALAPRIL MALEATE 10 MG TAB PO SCH (09:32)
[2017-02-17] MEDS: buPROPion **XL** TABLET 150MG (WELLBUTRIN XL) PO SCH (09:32)
[2017-02-17] MEDS: MAGNESIUM OXIDE 400 MG TAB (MAG-OX) PO SCH ×3 (09:33→21:04)
[2017-02-17] MEDS: amLODIPine 5 MG TAB PO SCH ×2 (09:33→21:05)
[2017-02-17] MEDS: PRIMIDONE 50 MG TAB PO SCH ×2 (09:33→21:03)
[2017-02-17] MEDS: VITAMIN D 1,000 INTERNATIONAL UNITS TABLET PO SCH (09:33)
[2017-02-17] MEDS: CARVedilol 12.5 MG TAB PO SCH ×2 (09:34→21:04)
[2017-02-17] MEDS: oxyCODONE 20 MG CR TAB PO SCH ×2 (09:42→21:03)
[2017-02-17] MEDS: ACETAMINOPHEN TAB 650MG DOSE (2X325MG) PO PRN (14:48)
--- NOTE | 2017-02-17 16:29 | IPN ---
DATE: 02/17/2017 SUBJECTIVE: Patient is seen and examined in the room today. Patient is lying on the recliner chair without any acute complaints or acute changes. No overnight events are reported. OBJECTIVE: VITAL SIGNS: Temperature is 98.1, pulse is 71, respiratory rate 16, blood pressure 145/79, pulse oximetry 95% in room air. GENERAL: Morbidly obese, no sign of acute distress, alert and oriented times three. HEENT: Normocephalic, atraumatic. Extraocular motors grossly intact. CARDIOVASCULAR: Positive S1, S2, regular rate. LUNGS: Clear to auscultation bilaterally. ABDOMEN: Obese, soft, nontender, nondistended. EXTREMITIES: Wound vacuum assisted closure (VAC) wrapped around the left lower extremity. There is pitting edema bilaterally. LABORATORY DATA: WBC 6, hemoglobin 12.5, hematocrit 37.5, platelet count 477. Sodium 137, potassium 4.1, chloride 103, carbon dioxide 27, BUN 11, creatinine 1.18, GFR is greater than 60, fasting glucose 239, calcium 9.2, magnesium 1.7. ASSESSMENT AND PLAN: 1. Hypertension. For the past few days, patient continues to have fluctuation of the blood pressure. Patient is currently on Norvasc, carvedilol, and Vasotec. Patient has already maxed out the recommended dose for the Vasotec and Norvasc. Will titrate up the Coreg. Holding parameters will be placed. 2. Diabetes. Currently, patient is on Amaryl 4 mg by mouth twice a day. Patient is on sliding scale. Patient's glucose trends were reviewed. Patient is on consistent carbohydrate diet. 3. Right upper extremity deep venous thrombosis (DVT) status post venous lysis and angioplasty of the axillary and subclavian vein. Patient is currently on a heparin drip and patient is in the process of bridging to warfarin. The goal for the INR, per recommendation, was 2.5 to 3.5. 4. Osteomyelitis of the left calcaneus status post incision and drainage (I and D) and IV antibiotic infusion. Patient is currently on wound vacuum assisted closure (VAC). Patient is being followed by Dr. Izaguirre. 5. Dyslipidemia. On statin. 6. Anxiety/depression. On amitriptyline and Wellbutrin. 7. Gout. On allopurinol. 8. Deep venous thrombosis (DVT) prophylaxis. Patient is on a heparin drip bridging with Coumadin. Currently, patient does not have a therapeutic INR.
[2017-02-17] MEDS: WARFARIN SOD 5 MG TAB PO SCH (16:55)
[2017-02-17] MEDS: AMITRIPTYLINE 25 MG TAB PO SCH (21:04)
[2017-02-17] MEDS: ATORVASTATIN 10 MG TAB PO SCH (21:05)
[2017-02-18] VITALS (8 sets, daily range): BP systolic 147–184; BP diastolic 62–83
[2017-02-18] MEDS: oxyCODONE 5MG TAB PO PRN ×4 (01:13→17:17)
[2017-02-18] MEDS: ACETAMINOPHEN TAB 650MG DOSE (2X325MG) PO PRN ×3 (01:49→17:52)
[2017-02-18] MEDS: HEPARIN DRIP 25,000 UNITS in APPROPRIATE DILUENT 1 EA IV SCH ×3 (02:48→19:36)
[2017-02-18 06:09] LABS: INR 1.21
[2017-02-18] MEDS: oxyCODONE 20 MG CR TAB PO SCH ×2 (08:09→21:52)
[2017-02-18] MEDS: GLIMEPIRIDE 2 MG TAB PO SCH ×2 (08:10→17:16)
[2017-02-18] MEDS: HumaLOG INSULIN (NovoLOG) PER UNIT SC SCH ×4 (08:10→21:34)
[2017-02-18] MEDS: DOCUSATE SODIUM 100 MG CAP PO SCH ×2 (09:00→21:50)
[2017-02-18] MEDS: MIRALAX *UNIT DOSE* 17GM PACKET PO SCH (09:00)
[2017-02-18] MEDS: SENOKOT S TAB PO SCH ×2 (09:00→21:50)
[2017-02-18] MEDS: PRIMIDONE 50 MG TAB PO SCH ×2 (09:09→21:50)
[2017-02-18] MEDS: amLODIPine 5 MG TAB PO SCH ×2 (09:09→21:51)
[2017-02-18] MEDS: ENALAPRIL MALEATE 10 MG TAB PO SCH (09:10)
[2017-02-18] MEDS: MULTIVITAMINS/MINERALS THERAP 1 TAB PO SCH (09:10)
[2017-02-18] MEDS: VITAMIN D 1,000 INTERNATIONAL UNITS TABLET PO SCH (09:10)
[2017-02-18] MEDS: buPROPion **XL** TABLET 150MG (WELLBUTRIN XL) PO SCH (09:10)
[2017-02-18] MEDS: PANTOPRAZOLE 40MG TAB (PROTONIX) PO SCH (09:11)
[2017-02-18] MEDS: CARVedilol 12.5 MG TAB PO SCH ×2 (09:11→21:50)
[2017-02-18] MEDS: MAGNESIUM OXIDE 400 MG TAB (MAG-OX) PO SCH ×3 (09:11→21:50)
[2017-02-18] MEDS: ALLOPURINOL 300 MG TAB PO SCH (09:11)
[2017-02-18 09:49] LABS: ALBUMIN 3.2 GM/DL (3.2-5.2); ALBUMIN/GLOBULIN RATIO 1.14 (1.00-1.93); BILIRUBIN,TOTAL 0.3 MG/DL (0.2-1.0); CALCIUM LEVEL 9.4 MG/DL (8.5-10.1); CREATININE FOR GFR 1.34 MG/DL (0.70-1.30); GLOMERULAR FILTRATION RATE 58.7 (>56); MAGNESIUM LEVEL 1.4 MG/DL (1.8-2.4); POTASSIUM SERUM 4.5 MEQ/L (3.5-5.1)
[2017-02-18 09:58] LABS: BASO # 0.1 10^3/uL (0.0-0.2); BASO % 1.2 % (0.0-1.0); EOS # 0.4 10^3/uL (0.0-0.50); IMMATURE GRANULOCYTE % 0.6 % (0-0); LYMPH # 1.6 10^3/uL (1.5-4.5); LYMPH % 19.2 % (24.0-44.0); MEAN CORPUSCULAR HEMOGLOBIN 28.5 pg (27.0-33.0); MEAN CORPUSCULAR HGB CONC 32.6 g/dl (32.0-36.5); MEAN CORPUSCULAR VOLUME 87.6 fl (80.0-96.0); MONO # 0.5 10^3/uL (0.0-0.8); MONO % 6.1 % (0.0-5.0); NEUTROPHILS # 5.6 10^3/uL (1.8-7.7); NEUTROPHILS % 67.9 % (36.0-66.0); PLATELET COUNT, AUTOMATED 505 10^3/uL (150-450); RED CELL DISTRIBUTION WIDTH 15.7 % (11.5-14.5); WHITE BLOOD COUNT 8.3 10^3/uL (4.0-10.0)
[2017-02-18 11:06] LABS: ERYTHROCYTE SEDIMENTATION RATE 29 mm/hr (0-20)
--- NOTE | 2017-02-18 12:33 | IPNPDOC ---
Date Seen The patient was seen on 02/18/17. Progress Note SUBJECTIVE: Patient is a complaints. OBJECTIVE PHYSICAL EXAMINATION: VITAL SIGNS: Please see below. GENERAL: Lying in bed comfortably HEENT: Normal CARDIOVASCULAR: Regular rate and rhythm. RESPIRATORY: Clear to auscultation bilaterally. ABDOMINAL: Soft nontender nondistended EXTREMITIES: Right upper extremity well perfused with minimal swelling. Left foot ulcer stable with VAC in place. NEUROLOGICAL: Awake alert oriented 3 with no focal deficits. PSYCHOLOGICAL: Normal LABORATORY DATA: Please see below. MICROBIOLOGY: Please see below. DVT prophylaxis ordered?: Patient currently therapeutic on heparin drip and being converted to Coumadin. ASSESSMENT AND PLAN: This is a 56-year-old male with osteo-myelitis of the left foot who underwent PICC line placement right upper extremity with subsequent DVT requiring thrombo-lysis due to extensive swelling and pain. Patient is now currently on a heparin drip and being converted to Coumadin and requiring a large dose of Coumadin for achieving a therapeutic INR of 2.5-3.5. PROBLEMS: 1. Right upper extremity DVT: Patient is status post right axillary and spleen vein angioplasty with thrombosis with good result and minimal swelling in the right upper extremity with minimal discomfort. Patient requires conversion to Coumadin and his dose was increased again today due to his requirement of a large dose in order to become therapeutic on Coumadin. Patient will continue on a heparin drip until his INR is 2.5-3.5. 2. Left foot wounds: Are healing well with good granulation tissue and the patient currently has a VAC in place. DISPOSITION: Patient will be discharged once his INR is 2.5-3.5. VS, I&O, 24H, Tali Vital Signs/I&O Vital Signs Date Time Temp Pulse Resp B/P (MAP) Pulse Ox O2 Delivery O2 Flow Rate FiO2 02/18/17 12:05 102.9 02/18/17 10:40 90 18 184/78 (113) 92 Room Air I&O- Last 24 Hours up to 6 AM 02/19/17 06:00 Intake Total 720 ml Output Total 500 ml Balance 220 ml Laboratory Data 24H LABS Laboratory Tests 2 02/17/17 16:27: Bedside Glucose (Misc Panel) 181H 02/17/17 20:19: Bedside Glucose (Misc Panel) 144H 02/18/17 05:50: White Blood Count 8.3, Red Blood Count 4.03L, Hemoglobin 11.5L, Hematocrit 35.3L , Mean Corpuscular Volume 87.6, Mean Corpuscular Hemoglobin 28.5, Mean Corpuscular Hemoglobin Concent 32.6, Red Cell Distribution Width 15.7H, Platelet Count 505H, Neutrophils (%) (Auto) 67.9H, Lymphocytes (%) (Auto) 19.2L , Monocytes (%) (Auto) 6.1H, Eosinophils (%) (Auto) 5.0H, Basophils (%) (Auto) 1.2H, Neutrophils # (Auto) 5.6, Lymphocytes # (Auto) 1.6, Monocytes # (Auto) 0.5 , Eosinophils # (Auto) 0.4, Basophils # (Auto) 0.1, Immature Granulocyte # (Auto ) 0.1H, Nucleated Red Blood Cells % (auto) 0.0, Erythrocyte Sedimentation Rate 29H, Prothrombin Time 15.5H, Prothromb Time International Ratio 1.21, Activated Partial Thromboplast Time 87.8H, Anion Gap 5L, Glomerular Filtration Rate 58.7, Estimated Mean Plasma Glucose 186H, Hemoglobin A1c 8.1H, Blood Urea Nitrogen 12 , Creatinine 1.34H, Sodium Level 137, Potassium Level 4.5, Chloride Level 102, Carbon Dioxide Level 30, Calcium Level 9.4, Aspartate Amino Transf (AST/SGOT) 21 , Alanine Aminotransferase (ALT/SGPT) 25, Alkaline Phosphatase 85, Total Bilirubin 0.3, Total Protein 6.0L, Albumin 3.2, Magnesium Level 1.4L, C- Reactive Protein, Quantitative 1.94H, Albumin/Globulin Ratio 1.14 02/18/17 06:40: Bedside Glucose (Misc Panel) 254H 02/18/17 10:44: Lactic Acid Level 2.7*H 02/18/17 11:28: Bedside Glucose (Misc Panel) 159H CBC/BMP Laboratory Tests 02/18/17 05:50 Red Blood Count 4.03 L, Mean Corpuscular Volume 87.6, Mean Corpuscular Hemoglobin 28.5, Mean Corpuscular Hemoglobin Concent 32.6, Red Cell Distribution Width 15.7 H, Neutrophils (%) (Auto) 67.9 H, Lymphocytes (%) (Auto ) 19.2 L, Monocytes (%) (Auto) 6.1 H, Eosinophils (%) (Auto) 5.0 H, Basophils (% ) (Auto) 1.2 H, Neutrophils # (Auto) 5.6, Lymphocytes # (Auto) 1.6, Monocytes # (Auto) 0.5, Eosinophils # (Auto) 0.4, Basophils # (Auto) 0.1, Calcium Level 9.4 , Aspartate Amino Transf (AST/SGOT) 21, Alanine Aminotransferase (ALT/SGPT) 25, Alkaline Phosphatase 85, Total Bilirubin 0.3, Total Protein 6.0 L, Albumin 3.2 Microbiology Microbiology 02/18/17 Blood Culture, Received Pending 02/18/17 Blood Culture, Received Pending 02/18/17 Stool Occult Blood (ANTOINE) - Final, Complete 02/16/17 Stool Occult Blood (ANTOINE) - Final, Complete 02/12/17 Stool Occult Blood (ANTOINE) - Final, Complete 02/18/17 Respiratory Virus Panel (PCR) (ANTOINE), Received Pending Osmar Go MD Feb 18, 2017 12:33
[2017-02-18] MEDS: NS 1,000 ML IV SCH ×2 (12:45→21:52)
[2017-02-18] MEDS: MAG SULF 1GM/100ML (MAG RUN) 1 GM in APPROPRIATE DILUENT 1 EA IV SCH ×2 (14:00→15:29)
--- NOTE | 2017-02-18 16:08 | IPN ---
DATE: 02/18/2017 SUBJECTIVE: The patient is seen and examined in the room today. Today, acutely, the patient started to have fever and shivering chills. The patient also complained about generalized muscle and joint aches. Denies any cough or wheeze. Denies any diarrhea. Denies any issue with urination. OBJECTIVE: VITAL SIGNS: Temperature 100.1 (latest 102.9), pulse is 90, respirations 18, blood pressure 184/78, pulse oximetry 92% on room air. GENERAL: Mild to moderate amount of distress due to persistent chills and fevers. Oriented times three. HEENT: Normocephalic, atraumatic. Extraocular muscles grossly intact. CARDIOVASCULAR: Positive S1, S2. Regular rate. LUNGS: Clear to auscultation bilaterally. I cannot appreciate any significant wheezes or rhonchi. ABDOMEN: Soft, nontender, nondistended. EXTREMITIES: Wound VAC located on the left lower extremity. Edema bilaterally. LABORATORY DATA: WBC is 8.3, hemoglobin 11.5, hematocrit 35.9, platelet count is 505, ESR is 29. Sodium is 137, potassium 4.5, chloride 102, carbon dioxide is 30, BUN 12, creatinine 1.34, GFR is 58.7, fasting glucose 252, lactic acid 2.7, calcium is 9.4, magnesium 1.4, total bilirubin 0.3, AST 21, ALT 25, alkaline phosphatase 85, C-reactive protein 1.94, total protein 6. ASSESSMENT AND PLAN: 1. Acute fever and chills. The patient has a temperature of 102.9 that started abruptly. Laboratories were done and the patient was found to have lactic acidosis with an elevation of ESR and CRP. The patient is also noted to have increased neutrophil count. The patient's respiratory panel is negative. We will obtain two sets of new blood cultures. We will get a UA. The patient does not have any diarrhea. I have contacted drilling field professional, Dr. Izaguirre, to evaluate the left heel wound where the patient had wound debridement for osteomyelitis. The patient was started on IV support. 2. Hypertension. Currently, the patient has maxed out on the Vasotec and Norvasc. The patient's Coreg was increased due to hypertension. Currently, the patient has an acute illness and we will continue to monitor. Adjust the medication as needed. 3. Diabetes. Amaryl 4 mg by mouth twice a day on sliding scale. Consistent carbohydrate diet. 4. Right upper extremity deep vein thrombosis (DVT), status post venous lysis and angioplasty of the axillary and subclavian veins. Currently, the patient is on heparin drip. The patient is in the process of bridging to warfarin. INR is not therapeutic at this time. The osteomyelitis of the left calcaneus, status post incision and drainage and IV antibiotic infusion. The patient is on wound VAC. I have talked to Dr. Izaguirre for the wound VAC and the wound reevaluation. Try to rule out any recurrence of infection. 5. Dyslipidemia. On statin. 6. Anxiety/depression. Amitriptyline and Wellbutrin. 7. Gout. On allopurinol. 8. Deep vein thrombosis (DVT) prophylaxis. The patient is on heparin drip. The patient is currently being bridged with some warfarin. 9. Lactic acidosis. The patient is on IV support. We will try to rule out source of possible infection.
--- NOTE | 2017-02-18 16:29 | REP ---
HISTORY: Possible osteomyelitis. COMPARISON: 12/14/2016 Once again, there are marked degenerative changes seen throughout the foot, status quo. The puncture wound seen on the prior exam with a small density is no longer present. There is now soft tissue lucency seen in that region. The plantar calcaneal heel spur seen on the prior exam is now seen with irregularity of the cortex of the os calcis without a heel spur. IMPRESSION: Abnormal soft tissue and abnormal os calcis as described above. I have been given no other history then the aforementioned. I cannot rule out osteomyelitis. MRI before and after intravenous gadolinium is recommended. Signed by Aramis Sahni DO 02/18/2017 04:30 P
[2017-02-18] MEDS: WARFARIN SOD 5 MG TAB PO SCH (17:16)
[2017-02-18] MEDS: ATORVASTATIN 10 MG TAB PO SCH (21:49)
[2017-02-18] MEDS: AMITRIPTYLINE 25 MG TAB PO SCH (21:50)
--- NOTE | 2017-02-18 22:00 | REPUSA ---
CLINICAL HISTORY: Pain and swelling in the left foot. COMPARISON: 12/11/2016. TECHNIQUE: MRI of the foot was performed utilizing multiple sequences in axial, coronal and sagittal planes without IV contrast material. COMMENTS: There is evidence of large ulceration involving the plantar aspect of the foot with extensive adjacen t soft tissue swelling compatible with cellulitis. There is diffuse extensive swelling also noted in volving the dorsal aspect of the foot which may represent cellulitis extensions. There is extensive marrow edema noted throughout the calcaneus which is compatible with progression o f osteomyelitis. Severe degenerative changes are present in the tarsal and tarsometatarsal joints wh ich are approximately stable. There is no evidence of neuroma. A sinus tarsus is of normal signal. There is no thickening of the plantar fascia. There is no evidence of encroachment on the medial pl christiana neurovascular bundle. Moderate sized ankle joint effusion present. IMPRESSION: 1. Large ulceration at the plantar aspect of the foot with diffuse surrounding subcutaneous swelling compatible with cellulitis. There is probable cellulitis involving the foot dorsum. 2. Findings are compatible with extensive osteomyelitis involving the calcaneus. 3. Severe degenerative changes. 4. Moderate sized ankle joint effusion present.
--- NOTE | 2017-02-19 01:53 | CR ---
DATE OF CONSULTATION: 02/18/2017 REASON FOR CONSULTATION: Worsening edema with fevers, left lower extremity. Jovanny Herrera is a 56-year-old male well known to me who had been treated for calcaneal osteomyelitis status post puncture wound. He had several incision and drainages and bone biopsy with debridements and he was treated with 6 weeks of antibiotics, vancomycin via peripherally inserted central catheter (PICC) line. Subsequently, he developed a blood clot in his right upper extremity from the PICC line. He was treated by Dr. Go with thrombolysis. Over the last week, it appears there has been progressively worsening edema to the left foot. He had been having a wound vacuum-assisted closure (VAC) dressing. He had been afebrile from this admission until earlier today. Highest fever spike of 102.9. Labs were ordered. He is known to have elevated lactic acid at 2.7. His white blood cell count was normal 8.3, but ESR was elevated at 29. Previous ESR, which ws taken on 01/27 has been 11. His CRP was elevated at 1.94. An x-ray was ordered. There was some signs from erosion at the most inferior aspect of that calcaneus. This is unchanged from the imaging study, which was taken in my office. There is no soft tissue gas noted. Chronic vessel calcifications are noted. PAST MEDICAL HISTORY: Significant for: 1. Diabetes. 2. Peripheral neuropathy. 3. Hypertension. 4. Depression. 5. Anxiety. 6. History of left heel osteomyelitis. 7. Right upper extremity deep venous thrombosis (DVT). FAMILY HISTORY: Noncontributory. SOCIAL HISTORY: Former smoker. Denies alcohol use. ALLERGIES: POVIDONE. REVIEW OF SYSTEMS: Admits fevers, increased tenderness to the left lower extremity. Lower extremity examination: There is significant edema noted to the left lower leg with some erythema. There is some erythema surrounding the wound; however, this would be consistent with skin irritation from prior wound VAC placement. The wound VAC was removed earlier today. Wounds are examined. These are improved. There is granulation tissue within the wound. The wound does still probe to bone on the plantar aspect. There was previous lower extremity ultrasound, which showed no signs of DVT to the left leg. ASSESSMENT: 56-year-old male with osteomyelitis status post 6 weeks treatment with vancomycin, persisting ulceration, worsening edema, and new onset fevers. PLAN: An MRI has been ordered with contrast to evaluate the heel. Will consult infectious disease, Dr. Ivory prior to starting new antibiotics. Deep culture swabs taken of plantar wound. Previous cultures grew oxacillin resistant Staphylococcus. TANNER
[2017-02-19 02:00] VITALS: BP 146/67
[2017-02-19] MEDS: oxyCODONE 5MG TAB PO PRN ×5 (02:13→22:21)
[2017-02-19] MEDS: HEPARIN DRIP 25,000 UNITS in APPROPRIATE DILUENT 1 EA IV SCH ×3 (04:11→22:58)
[2017-02-19 06:00] VITALS: BP 143/75
[2017-02-19] MEDS ORDERED: VANCOMYCIN HCL 1,000 MG, VIAL MATE ADAPTER 1 EACH in D5W 250 ML IV SCH (06:45)
[2017-02-19 07:51] LABS: BASO # 0.1 10^3/uL (0.0-0.2); BASO % 1.2 % (0.0-1.0); EOS # 0.3 10^3/uL (0.0-0.50); EOS % 4.7 % (0.0-3.0); IMMATURE GRANULOCYTE % 1.9 % (0-0); LYMPH # 1.7 10^3/uL (1.5-4.5); LYMPH % 29.2 % (24.0-44.0); MEAN CORPUSCULAR HEMOGLOBIN 27.8 pg (27.0-33.0); MEAN CORPUSCULAR HGB CONC 31.7 g/dl (32.0-36.5); MEAN CORPUSCULAR VOLUME 87.9 fl (80.0-96.0); MONO # 0.5 10^3/uL (0.0-0.8); MONO % 8.8 % (0.0-5.0); NEUTROPHILS # 3.1 10^3/uL (1.8-7.7); NEUTROPHILS % 54.2 % (36.0-66.0); PLATELET COUNT, AUTOMATED 419 10^3/uL (150-450); RED CELL DISTRIBUTION WIDTH 15.8 % (11.5-14.5); WHITE BLOOD COUNT 5.7 10^3/uL (4.0-10.0)
[2017-02-19] MEDS ORDERED: PIPERACILLIN/TAZOBACTAM SOD 3.375 GM in D5W MINI-BAG PLUS 50 ML IV SCH (08:00)
[2017-02-19 08:08] LABS: INR 1.24
[2017-02-19] MEDS: oxyCODONE 20 MG CR TAB PO SCH ×2 (08:15→20:38)
[2017-02-19] MEDS: PRIMIDONE 50 MG TAB PO SCH ×2 (08:15→20:40)
[2017-02-19] MEDS: buPROPion **XL** TABLET 150MG (WELLBUTRIN XL) PO SCH (08:15)
[2017-02-19] MEDS: VITAMIN D 1,000 INTERNATIONAL UNITS TABLET PO SCH (08:15)
[2017-02-19] MEDS: MAGNESIUM OXIDE 400 MG TAB (MAG-OX) PO SCH ×3 (08:16→20:40)
[2017-02-19] MEDS: DOCUSATE SODIUM 100 MG CAP PO SCH ×2 (08:16→20:40)
[2017-02-19] MEDS: ENALAPRIL MALEATE 10 MG TAB PO SCH (08:16)
[2017-02-19] MEDS: MULTIVITAMINS/MINERALS THERAP 1 TAB PO SCH (08:17)
[2017-02-19] MEDS: SENOKOT S TAB PO SCH ×2 (08:17→20:39)
[2017-02-19] MEDS: amLODIPine 5 MG TAB PO SCH ×2 (08:17→20:41)
[2017-02-19] MEDS: CARVedilol 12.5 MG TAB PO SCH ×2 (08:18→20:39)
[2017-02-19] MEDS: ALLOPURINOL 300 MG TAB PO SCH (08:18)
[2017-02-19] MEDS: PANTOPRAZOLE 40MG TAB (PROTONIX) PO SCH (08:18)
[2017-02-19] MEDS: GLIMEPIRIDE 2 MG TAB PO SCH ×2 (08:19→18:02)
[2017-02-19] MEDS: HumaLOG INSULIN (NovoLOG) PER UNIT SC SCH ×4 (08:20→20:41)
[2017-02-19] MEDS: NS 1,000 ML IV SCH (08:21)
[2017-02-19 08:22] LABS: CALCIUM LEVEL 9.4 MG/DL (8.5-10.1); CREATININE FOR GFR 1.33 MG/DL (0.70-1.30); GLOMERULAR FILTRATION RATE 59.2 (>56); MAGNESIUM LEVEL 1.6 MG/DL (1.8-2.4); POTASSIUM SERUM 4.7 MEQ/L (3.5-5.1)
[2017-02-19] MEDS: VANCOMYCIN HCL 750 MG, VIAL MATE ADAPTER 1 EACH in D5W 250 ML IV SCH ×2 (09:32→18:03)
[2017-02-19 10:00] VITALS: BP 160/65
[2017-02-19] MEDS ORDERED: VANCOMYCIN HCL 750 MG, VIAL MATE ADAPTER 1 EACH in D5W 250 ML IV ONE (10:00)
[2017-02-19] MEDS: PIPERACILLIN/TAZOBACTAM SOD 3.375 GM in D5W 50 ML IV SCH ×2 (13:34→20:36)
[2017-02-19 14:00] VITALS: BP 160/70
--- NOTE | 2017-02-19 15:18 | IPN ---
DATE: 02/19/2017 The patient was seen and examined at the bedside. He is resting comfortably. Vital signs are reviewed. He has been afebrile overnight, current temperature is 98.2. Laboratories were reviewed. White blood cell count is 5.7. MRI results are reviewed. There is marrow edema noted to the calcaneus, this appears similar to the previous MRI. Extremity examination, dressings intact. No signs of strike through. ASSESSMENT: This is a 56-year-old male with calcaneal osteomyelitis status post treatment with 6 weeks of IV antibiotics. Likely reinfection of the site. PLAN: He has been started on antibiotics with vancomycin and Zosyn. Infectious disease has been consulted. Await their input. Continue current dressings presently. We will follow.
--- NOTE | 2017-02-19 15:33 | PHACANCOPD ---
PHARMACY VANCOMYCIN DOSING Pt Demographics Demographics Patient Age:56 , Weight:147.100 , Gender: male Adjusted Body Weight Date: 01/21/17, Adjusted Body Weight: [105] Kg Events Past 24 Hours Events Past 24 Hours: NO: Dialysis, Diuretic Therapy, Change in CrCl, Fever, Elevation in WBC, Pending Diagnostics, Pending Procedures, Other Vancomycin Vancomycin indication: SKIN/SOFT TISSUE INFECTION Vancomycin Target Ranges: 15-20 mcg/ml Vancomycin Load Y/N: Yes Load Dose Date Time Vancomycin Load Dose: 1500MG Date: 02/19 Time: 0900 Vancomycin Dose Date: 02/19/17. Current Vancomycin Dose: [750MG Q8H @ 1700] Intermittent Dosing?: No Labs Labs Item Value Date Time White Blood Count 6.0 K/mm3 02/10/17 0447 White Blood Count 8.3 10^3/uL 02/18/17 0550 White Blood Count 5.7 10^3/uL 02/19/17 0718 Creatinine 1.34 MG/DL H 02/18/17 0550 Creatinine 1.33 MG/DL H 02/19/17 0718 Micro Microbiology 02/18/17 Blood Culture - Preliminary, Resulted No growth after 24 hours . All specim... 02/18/17 Blood Culture - Preliminary, Resulted No growth after 24 hours . All specim... 02/18/17 Stool Occult Blood (ANTOINE) - Final, Complete 02/16/17 Stool Occult Blood (ANTOINE) - Final, Complete 02/12/17 Stool Occult Blood (ANTOINE) - Final, Complete 02/18/17 Respiratory Virus Panel (PCR) (ANTOINE) - Final, Complete 02/18/17 Gram Stain - Final, Resulted 02/18/17 Wound Culture, Resulted Pending 02/18/17 Anaerobic Culture, Resulted Pending Creatinine Clearance Date:01/21/17. Creatinine Clearance: [70]. Pending Labs Trough 02-20 @ 0800 Assessment and Plan Maintaining Current Dose?: Yes Reason for dose change: No Dose Change Pharmacist Note Pharmacist Note Date: 02/19/17. Pharmacist note: Patient was given a 1500mg loading dose followed 8 hours later with 750mg iv q8h. Patient has completed a 6 week course of Vanco for osteomyelitis on 01/25/17. Dosing (750mg q8h) was established during previous admission. cnultures are pending and infectious disease has been consulted. Trough is scheduled to be drawn prior to 4th dose. 01/22: Patient's trough came back at 20.6 today. He was switched to Vancomycin 750mg IV q8h for now. We will continue to monitor and make adjustments as necessary. 01/21/17: Trough today resulted at 21.1mcg/ml, however, vanco dose prior to trough level was administered 3 hours overdue; thus resulting in an inaccurate trough level. The patient's scr has improved from 1.28 yesterday to 1.18 today. I will reschedule a follow-up trough to be drawn tomorrow, 01/22/17 @0900. We will continue to monitor and adjust dosing if needed. Date: 01/21/17. Pharmacist note:Dosed at 1000mg q8h with a trough ordered for @1700. Will continue to monitor and make adjustments as needed. CHELLY TRONCOSO PHARMACY Feb 19, 2017 15:33
--- NOTE | 2017-02-19 16:16 | IPN ---
DATE: 02/19/2017 SUBJECTIVE: The patient is seen and examined in the room today. The patient does not have any recurrence of fever or chills. The patient has been started on antibiotic for osteomyelitis. Denies any acute distress during the encounter. OBJECTIVE: VITAL SIGNS: Temperature is 98.2, pulse is 72, respirations 22, blood pressure 143/75, pulse oximetry 93% on room air. GENERAL: Morbidly obese. No sign of acute distress. Alert and oriented times three. HEENT: Normocephalic, atraumatic. Extraocular muscles grossly intact. CARDIOVASCULAR: Positive S1, S2. Regular rate. LUNGS: Clear to auscultation bilaterally. No wheezes or rhonchi. ABDOMEN: Soft, nontender, nondistended. Bowel sounds present. EXTREMITIES: Wound VAC of the left lower extremity. Positive edema bilaterally. LABORATORY DATA: WBC is 5.7, hemoglobin 11.5, hematocrit 36.3, platelet count is 419. Sodium is 136, potassium 4.7, chloride 102, carbon dioxide 25, BUN 12, creatinine 1.33, GFR is 59.2, fasting glucose 161. Calcium 9.4, magnesium 1.6. IMAGING STUDIES: MRI of the foot with and without contrast showed large ulceration at the plantar aspect of the foot with diffuse surrounding subcutaneous swelling compatible with cellulitis. Findings are compatible with extensive osteomyelitis involving the calcaneus. Moderate sized ankle joint effusion. ASSESSMENT AND PLAN: 1. Left lower extremity osteomyelitis. The patient was started on antibiotics. Culture was taken yesterday. Infectious disease specialist, Dr. Ivory, was consulted. Currently, the patient is continued on IV support. No recurrence of fever or chills. 2. Right upper extremity deep vein thrombosis (DVT), status post venous lysis and angioplasty of the axillary and subclavian veins. The patient is on heparin drip bridging with warfarin. Unfortunately, the INR is still not therapeutic. The patient has a history of failed Eliquis. 3. Hypertension. The patient has been on Vasotec, Coreg and Norvasc. The patient has maxed out the Vasotec and Norvasc. Coreg dose was just recently changed. We will continue to monitor. 4. Diabetes. Amaryl 4 mg by mouth twice a day on sliding scale. Consistent carbohydrate diet. 5. Dyslipidemia. On statin. 6. Anxiety/depression. Amitriptyline and Wellbutrin. 7. Gout. On allopurinol. 8. Lactic acidosis, resolved, most likely secondary to the patient's osteomyelitis. 9. Deep vein thrombosis (DVT) prophylaxis. Heparin drip and bridging with warfarin.
[2017-02-19 18:00] VITALS: BP 164/75
[2017-02-19] MEDS: WARFARIN SOD 5 MG TAB PO SCH (18:02)
[2017-02-19] MEDS: ATORVASTATIN 10 MG TAB PO SCH (20:38)
[2017-02-19] MEDS: AMITRIPTYLINE 25 MG TAB PO SCH (20:39)
[2017-02-19] MEDS: ACETAMINOPHEN TAB 650MG DOSE (2X325MG) PO PRN (20:46)
[2017-02-19 22:00] VITALS: BP 163/83
--- NOTE | 2017-02-19 22:24 | IPNPDOC ---
Date Seen The patient was seen on 02/19/17. Progress Note SUBJECTIVE: Patient is without complaints. EVENTS: Patient spiked a fever and underwent an MRI of his left foot which showed extensive osteomyelitis of the left calcaneus. OBJECTIVE PHYSICAL EXAMINATION: VITAL SIGNS: Please see below. GENERAL: Lying in bed comfortably HEENT: Normal CARDIOVASCULAR: Regular rate and rhythm. RESPIRATORY: Clear to auscultation bilaterally. ABDOMINAL: Soft nontender nondistended EXTREMITIES: Left lower extremity wounds are clean with good granulation tissue. Right upper extremity is stable with minimal swelling and good perfusion. NEUROLOGICAL: Awake alert oriented 3 with no focal deficits PSYCHOLOGICAL: Normal LABORATORY DATA: Please see below. MICROBIOLOGY: Please see below. IMAGING: MRI shows left calcaneal osteomyelitis DVT prophylaxis ordered?: Patient currently on a heparin drip which is therapeutic and being converted to Coumadin. ASSESSMENT AND PLAN: This is a 56-year-old male with right upper extremity DVT status post frontal lysis who was on a heparin drip and being converted to Coumadin therapy. The patient had a temperature spike and underwent an MRI of his left lower extremity which showed osteomyelitis of the left heel. The patient had finished a 6 week course of antibiotics and has now been restarted on antibiotic therapy and ID consulted regarding the length of antibiotic therapy. PROBLEMS: 1. Right upper extremity DVT: Right upper extremity swelling is minimal the patient is stable with regards to his right upper extremity DVT and is currently on heparin with conversion to Coumadin in the process. 2. Left heel osteomyelitis: She has been restarted on IV anabolic therapy and ID consult regarding appropriate antibiotics and length of treatment. VS, I&O, 24H, [facility] Vital Signs/I&O Vital Signs Date Time Temp Pulse Resp B/P (MAP) Pulse Ox O2 Delivery O2 Flow Rate FiO2 02/19/17 22:00 99.1 87 19 163/83 (109) 95 Room Air I&O- Last 24 Hours up to 6 AM 02/20/17 06:00 Intake Total 2462 ml Output Total 1300 ml Balance 1162 ml Laboratory Data 24H LABS Laboratory Tests 2 02/19/17 00:20: Urine Appearance CLEAR, Urine Color YELLOW, Urine pH 6.0, Urine Specific [place] 1.014, Urine Protein NEGATIVE, Urine Glucose (UA) NEGATIVE, Urine Ketones NEGATIVE, Urine Urobilinogen 0.2, Urine Bilirubin NEGATIVE, Urine Leukocyte Esterase NEGATIVE, Urine Blood NEGATIVE, Urine Nitrite NEGATIVE, Urine WBC (Auto) 1, Urine RBC (Auto) 2, Urine Hyaline Casts (Auto) 0, Urine Bacteria (Auto) NEGATIVE, Urine Squamous Epithelial Cells 0, Urine Sperm (Auto) 02/19/17 07:18: White Blood Count 5.7, Red Blood Count 4.13L, Hemoglobin 11.5L, Hematocrit 36.3L , Mean Corpuscular Volume 87.9, Mean Corpuscular Hemoglobin 27.8, Mean Corpuscular Hemoglobin Concent 31.7L, Red Cell Distribution Width 15.8H, Platelet Count 419, Neutrophils (%) (Auto) 54.2, Lymphocytes (%) (Auto) 29.2, Monocytes (%) (Auto) 8.8H, Eosinophils (%) (Auto) 4.7H, Basophils (%) (Auto) 1.2H, Neutrophils # (Auto) 3.1, Lymphocytes # (Auto) 1.7, Monocytes # (Auto) 0.5 , Eosinophils # (Auto) 0.3, Basophils # (Auto) 0.1, Immature Granulocyte # (Auto ) 0.1H, Nucleated Red Blood Cells % (auto) 0.0, Prothrombin Time 15.8H, Prothromb Time International Ratio 1.24, Anion Gap 9, Glomerular Filtration Rate 59.2, Blood Urea Nitrogen 12, Creatinine 1.33H, Sodium Level 136, Potassium Level 4.7, Chloride Level 102, Carbon Dioxide Level 25, Calcium Level 9.4, Magnesium Level 1.6L 02/19/17 07:45: Bedside Glucose (Misc Panel) 167H 02/19/17 09:50: Activated Partial Thromboplast Time 102.3H 02/19/17 11:34: Bedside Glucose (Misc Panel) 254H 02/19/17 17:25: Bedside Glucose (Misc Panel) 200H 02/19/17 19:54: Bedside Glucose (Misc Panel) 174H 02/19/17 22:07: CBC/BMP Laboratory Tests 02/19/17 07:18 Red Blood Count 4.13 L, Mean Corpuscular Volume 87.9, Mean Corpuscular Hemoglobin 27.8, Mean Corpuscular Hemoglobin Concent 31.7 L, Red Cell Distribution Width 15.8 H, Neutrophils (%) (Auto) 54.2, Lymphocytes (%) (Auto) 29.2, Monocytes (%) (Auto) 8.8 H, Eosinophils (%) (Auto) 4.7 H, Basophils (%) ( Auto) 1.2 H, Neutrophils # (Auto) 3.1, Lymphocytes # (Auto) 1.7, Monocytes # ( Auto) 0.5, Eosinophils # (Auto) 0.3, Basophils # (Auto) 0.1, Calcium Level 9.4 Microbiology Microbiology 02/18/17 Blood Culture - Preliminary, Resulted No growth after 24 hours . All specim... 02/18/17 Blood Culture - Preliminary, Resulted No growth after 24 hours . All specim... 02/18/17 Stool Occult Blood (ANTOINE) - Final, Complete 02/16/17 Stool Occult Blood (ANTOINE) - Final, Complete 02/12/17 Stool Occult Blood (ANTOINE) - Final, Complete 02/18/17 Respiratory Virus Panel (PCR) (ANTOINE) - Final, Complete 02/18/17 Gram Stain - Final, Resulted 02/18/17 Wound Culture, Resulted Pending 02/18/17 Anaerobic Culture, Resulted Pending Osmar Go MD Feb 19, 2017 22:24
[2017-02-20] MEDS: VANCOMYCIN HCL 750 MG, VIAL MATE ADAPTER 1 EACH in D5W 250 ML IV SCH (01:19)
[2017-02-20 02:00] VITALS: BP 123/63
[2017-02-20] MEDS: PIPERACILLIN/TAZOBACTAM SOD 3.375 GM in D5W 50 ML IV SCH ×4 (02:29→20:49)
[2017-02-20] MEDS: NS 1,000 ML IV SCH (02:33)
[2017-02-20] MEDS: oxyCODONE 5MG TAB PO PRN ×3 (02:56→18:09)
[2017-02-20 06:00] VITALS: BP 143/84
[2017-02-20] MEDS: HEPARIN DRIP 25,000 UNITS in APPROPRIATE DILUENT 1 EA IV SCH ×2 (08:50→19:00)
[2017-02-20] MEDS: MIRALAX *UNIT DOSE* 17GM PACKET PO SCH (09:00)
[2017-02-20] MEDS: oxyCODONE 20 MG CR TAB PO SCH ×2 (09:00→20:47)
[2017-02-20] MEDS: VITAMIN D 1,000 INTERNATIONAL UNITS TABLET PO SCH (09:02)
[2017-02-20] MEDS: MAGNESIUM OXIDE 400 MG TAB (MAG-OX) PO SCH ×3 (09:02→20:48)
[2017-02-20] MEDS: PANTOPRAZOLE 40MG TAB (PROTONIX) PO SCH (09:03)
[2017-02-20] MEDS: GLIMEPIRIDE 2 MG TAB PO SCH ×2 (09:04→16:52)
[2017-02-20] MEDS: amLODIPine 5 MG TAB PO SCH ×2 (09:06→20:47)
[2017-02-20] MEDS: MULTIVITAMINS/MINERALS THERAP 1 TAB PO SCH (09:06)
[2017-02-20] MEDS: buPROPion **XL** TABLET 150MG (WELLBUTRIN XL) PO SCH (09:06)
[2017-02-20] MEDS: SENOKOT S TAB PO SCH ×2 (09:06→20:48)
[2017-02-20] MEDS: ENALAPRIL MALEATE 10 MG TAB PO SCH (09:06)
[2017-02-20] MEDS: DOCUSATE SODIUM 100 MG CAP PO SCH ×2 (09:07→20:48)
[2017-02-20] MEDS: ALLOPURINOL 300 MG TAB PO SCH (09:08)
[2017-02-20] MEDS: PRIMIDONE 50 MG TAB PO SCH ×2 (09:08→20:48)
[2017-02-20] MEDS: HumaLOG INSULIN (NovoLOG) PER UNIT SC SCH ×4 (09:11→20:37)
[2017-02-20] MEDS: CARVedilol 12.5 MG TAB PO SCH ×2 (09:24→20:48)
[2017-02-20 10:00] VITALS: BP 132/70
[2017-02-20 10:02] LABS: BASO # 0.1 10^3/uL (0.0-0.2); BASO % 1.4 % (0.0-1.0); EOS # 0.5 10^3/uL (0.0-0.50); EOS % 8.7 % (0.0-3.0); LYMPH # 1.4 10^3/uL (1.5-4.5); LYMPH % 26.2 % (24.0-44.0); MEAN CORPUSCULAR HEMOGLOBIN 28.5 pg (27.0-33.0); MEAN CORPUSCULAR HGB CONC 32.4 g/dl (32.0-36.5); MEAN CORPUSCULAR VOLUME 87.9 fl (80.0-96.0); MONO # 0.5 10^3/uL (0.0-0.8); MONO % 9.1 % (0.0-5.0); NEUTROPHILS # 2.8 10^3/uL (1.8-7.7); NEUTROPHILS % 53.6 % (36.0-66.0); PLATELET COUNT, AUTOMATED 387 10^3/uL (150-450); RED CELL DISTRIBUTION WIDTH 15.9 % (11.5-14.5); WHITE BLOOD COUNT 5.2 10^3/uL (4.0-10.0)
[2017-02-20 10:17] LABS: INR 1.43
[2017-02-20 10:58] LABS: CALCIUM LEVEL 9.4 MG/DL (8.5-10.1); CREATININE FOR GFR 1.47 MG/DL (0.70-1.30); GLOMERULAR FILTRATION RATE 52.8 (>56); MAGNESIUM LEVEL 1.6 MG/DL (1.8-2.4); POTASSIUM SERUM 4.3 MEQ/L (3.5-5.1)
[2017-02-20] MEDS ORDERED: VANCOMYCIN HCL 1,000 MG, VIAL MATE ADAPTER 1 EACH in D5W 250 ML IV SCH (11:00)
--- NOTE | 2017-02-20 11:36 | PHACANCOPD ---
PHARMACY VANCOMYCIN DOSING Pt Demographics Demographics Patient Age:56 , Weight:147.100 , Gender: male Adjusted Body Weight Date: 01/21/17, Adjusted Body Weight: [105] Kg Events Past 24 Hours Events Past 24 Hours: YES: Change in CrCl, NO: Dialysis, Diuretic Therapy, Fever, Elevation in WBC, Pending Diagnostics , Pending Procedures, Other Vancomycin Vancomycin indication: SKIN/SOFT TISSUE INFECTION Vancomycin Target Ranges: 15-20 mcg/ml Vancomycin Load Y/N: Yes Load Dose Date Time Vancomycin Load Dose: 1500MG Date: 02/19 Time: 0900 Vancomycin Dose 02/20/17: Vancomycin 1G IV Q8H @1100 Date: 02/19/17. Current Vancomycin Dose: [750MG Q8H @ 1700] Intermittent Dosing?: No Labs Labs Vital Signs Label Value Date Time Patient Temperature 96.9 degrees F 02/20/17 0600 Temperature Source Temporal 02/20/17 0600 Patient Temperature 97.4 degrees F 02/20/17 1000 Temperature Source Temporal 02/20/17 1000 Item Value Date Time White Blood Count 8.3 10^3/uL 02/18/17 0550 White Blood Count 5.7 10^3/uL 02/19/17 0718 White Blood Count 5.2 10^3/uL 02/20/17 0950 Creatinine 1.33 MG/DL H 02/19/17 0718 Creatinine 1.34 MG/DL H 02/18/17 0550 Creatinine 1.47 MG/DL H 02/20/17 0950 Vancomycin Level Trough 12.6 UG/ML 02/20/17 0951 Micro Microbiology 02/18/17 Blood Culture - Preliminary, Resulted No Growth after 48 hours. All Specime... 02/18/17 Blood Culture - Preliminary, Resulted No Growth after 48 hours. All Specime... 02/20/17 Stool Occult Blood (ANTOINE) - Final, Complete 02/18/17 Stool Occult Blood (ANTOINE) - Final, Complete 02/16/17 Stool Occult Blood (ANTOINE) - Final, Complete 02/12/17 Stool Occult Blood (ANTOINE) - Final, Complete 02/18/17 Respiratory Virus Panel (PCR) (ANTOINE) - Final, Complete 02/18/17 Gram Stain - Final, Resulted 02/18/17 Wound Culture, Resulted Pending 02/18/17 Anaerobic Culture, Resulted Pending Creatinine Clearance Date:01/21/17. Creatinine Clearance: [70]. Pending Labs Trough 02/21 @1000 Assessment and Plan Maintaining Current Dose?: No Reason for dose change: Trough too low Pharmacist Note Pharmacist Note 02/21/17: Trough drawn at 0951 came back subtherapeutic at 12.6mcg/ml. I also noticed a slight increase in Scr which we will keep an eye on. I have increased pt's dose to 1G q8h starting @1100. I have scheduled a trough before 4th dose tomorrow to see where that gets us. We will continue to monitor and adjust dose as needed. Date: 02/19/17. Pharmacist note: Patient was given a 1500mg loading dose followed 8 hours later with 750mg iv q8h. Patient has completed a 6 week course of Vanco for osteomyelitis on 01/25/17. Dosing (750mg q8h) was established during previous admission. cnultures are pending and infectious disease has been consulted. Trough is scheduled to be drawn prior to 4th dose. 01/22: Patient's trough came back at 20.6 today. He was switched to Vancomycin 750mg IV q8h for now. We will continue to monitor and make adjustments as necessary. 01/21/17: Trough today resulted at 21.1mcg/ml, however, vanco dose prior to trough level was administered 3 hours overdue; thus resulting in an inaccurate trough level. The patient's scr has improved from 1.28 yesterday to 1.18 today. I will reschedule a follow-up trough to be drawn tomorrow, 01/22/17 @0900. We will continue to monitor and adjust dosing if needed. Date: 01/21/17. Pharmacist note:Dosed at 1000mg q8h with a trough ordered for @1700. Will continue to monitor and make adjustments as needed. JESSICA ESPINAL [facility]ARMAC[facility] Feb 20, 2017 11:36
[2017-02-20] MEDS ORDERED: FUROSEMIDE 40 MG/4 ML VIAL (J1940) IV ONE (11:45)
[2017-02-20] MEDS: VANCOMYCIN HCL 1,000 MG, VIAL MATE ADAPTER 1 EACH in D5W 250 ML IV SCH ×2 (12:15→18:13)
--- NOTE | 2017-02-20 13:01 | IPN ---
DATE: 02/20/2017 The patient is seen and examined at bedside. Denies overnight complaints. Negative for nausea, vomiting, fever, or chills. Temperature, maximum temperature (t-max) was 99.2, presently is 97.4. LABORATORIES: Reviewed. White blood cell count is 5.2, creatinine is 1.47, C-reactive protein is 2.53, up from 1.94. Cultures are reviewed. Gram-stain taken was negative for bacteria. Other wound cultures are pending growth. Lower extremity examination: There is moderate edema to the left lower leg. There is some erythema surrounding the wounds, but this does not appear infectious in nature. Wounds have a fibrogranular base. There is no malodor from the wounds today. ASSESSMENT: 56-year-old male with suspected osteomyelitis status post puncture wound. Presently he is on vancomycin allen Zosyn. Infectious disease has been consulted. Await their recommendations for discharge antibiotics. At this time, we will hold on doing any surgical intervention. The patient still has potential for healing the wound and being treated with medical management for the osteomyelitis. We will consider outpatient hyperbaric oxygen as an adjunctive to treating the residual infection of the heel. Did discuss with the patient that should the wound fair or infection persists, it may ultimately require amputation of his left leg. Would consider partial calcanectomy prior to that. Continue current wound care dressings. We will follow.
[2017-02-20 14:00] VITALS: BP 169/85
--- NOTE | 2017-02-20 14:37 | IPN ---
DATE: 02/20/2017 SUBJECTIVE: The patient is seen and examined in the room today. Denies any recurrence of fevers or shivering chills. Denies any difficulty breathing. Denies any chest pain. OBJECTIVE: VITAL SIGNS: Temperature is 96.9, pulse 63, respirations 19, blood pressure 143/84, pulse oximetry 96% on room air. GENERAL: No sign of acute distress. Morbidly obese. Alert and oriented times three. HEENT: Normocephalic, atraumatic. Extraocular motors grossly intact. CARDIOVASCULAR: Positive S1, S2. Regular rate. LUNGS: Mild crackles. No wheezes. ABDOMEN: Soft, nontender, nondistended. Bowel sounds present. EXTREMITIES: Wound VAC at the left lower extremity. Positive edema bilaterally. LABORATORY DATA: WBC is 5.2, hemoglobin 11.1, hematocrit 34.3, platelet count is 387. Sodium is 137, potassium 4.3, chloride is 101, carbon dioxide 26, BUN 11, creatinine 1.47, GFR is 52.8, fasting glucose 310. Calcium 9.4, magnesium 1.6. C-reactive protein is 2.53. ASSESSMENT AND PLAN: 1. Left lower calcaneus osteomyelitis. Infectious disease specialist and detective captain has been consulted. The patient is currently on IV antibiotics. No recurrence of fever or chills. The patient had MRI of the feet on 02/18/2017. There is a finding supportive of current osteomyelitis. We will follow with the wound culture final report. 2. Right upper extremity deep vein thrombosis (DVT), status post venous lysis and angioplasty of the axillary and subclavian veins. The patient is on heparin drip. The patient is currently bridging with warfarin. Unfortunately, the INR is still not therapeutic. INR is 1.43. 3. Hypertension. Vasotec, Coreg and Norvasc. The patient has maxed out the Vasotec and Norvasc. Coreg dose was just recently changed. Currently, blood pressure is in the satisfactory range. We will continue current regimen. 4. Diabetes. Amaryl 4 mg by mouth twice a day, on sliding scale. Consistent carbohydrate diet. 5. Dyslipidemia. On statin. 6. Anxiety/depression. Amitriptyline and Wellbutrin. 7. Gout. On allopurinol. 8. History of lactic acidosis secondary to osteomyelitis. 9. Deep vein thrombosis (DVT) prophylaxis. The patient is on heparin drip and in the process of bridging with warfarin.
[2017-02-20] MEDS: WARFARIN SOD 5 MG TAB PO SCH (16:51)
--- NOTE | 2017-02-20 16:52 | REP ---
Left lower extremity Duplex Doppler venous ultrasound: Real time compression and duplex Doppler interrogation of the left lower extremity deep venous system is performed. The left common femoral, superficial femoral and popliteal veins are fully compressible with transducer pressure and demonstrate normal spontaneous and phasic flow, without evidence of deep venous thrombosis. Impression: No evidence of deep venous thrombosis of the left lower extremity femoral popliteal venous system. Incidental note is made of two enlarged left inguinal lymph nodes, measuring 4.0 x 1.6 x 2.7 cm and 3.8 x 1.2 x 1.7 cm. There is also a mildly enlarged left popliteal lymph node 2.1 x 1.2 x 1.7 cm. Signed by Sesar Gatica MD 02/20/2017 03:54 P
[2017-02-20 18:00] VITALS: BP 153/74
[2017-02-20] MEDS: ATORVASTATIN 10 MG TAB PO SCH (20:47)
[2017-02-20] MEDS: ACETAMINOPHEN TAB 650MG DOSE (2X325MG) PO PRN (20:47)
[2017-02-20] MEDS: AMITRIPTYLINE 25 MG TAB PO SCH (20:48)
[2017-02-20 22:00] VITALS: BP 177/89
[2017-02-21 02:00] VITALS: BP 143/82
[2017-02-21] MEDS: PIPERACILLIN/TAZOBACTAM SOD 3.375 GM in D5W 50 ML IV SCH ×4 (02:04→21:37)
[2017-02-21] MEDS: oxyCODONE 5MG TAB PO PRN ×2 (02:18→14:35)
[2017-02-21] MEDS: VANCOMYCIN HCL 1,000 MG, VIAL MATE ADAPTER 1 EACH in D5W 250 ML IV SCH ×3 (03:19→18:22)
[2017-02-21] MEDS: HEPARIN DRIP 25,000 UNITS in APPROPRIATE DILUENT 1 EA IV SCH ×2 (04:48→14:51)
[2017-02-21 06:00] VITALS: BP 147/84
[2017-02-21 07:10] LABS: INR 1.58
[2017-02-21] MEDS: GLIMEPIRIDE 2 MG TAB PO SCH ×2 (08:45→18:23)
[2017-02-21] MEDS: HumaLOG INSULIN (NovoLOG) PER UNIT SC SCH ×4 (08:46→21:00)
[2017-02-21] MEDS: oxyCODONE 20 MG CR TAB PO SCH ×2 (08:47→21:37)
[2017-02-21] MEDS: VITAMIN D 1,000 INTERNATIONAL UNITS TABLET PO SCH (08:49)
[2017-02-21] MEDS: MULTIVITAMINS/MINERALS THERAP 1 TAB PO SCH (08:49)
[2017-02-21] MEDS: PRIMIDONE 50 MG TAB PO SCH ×2 (08:50→21:38)
[2017-02-21] MEDS: SENOKOT S TAB PO SCH ×2 (08:50→21:39)
[2017-02-21] MEDS: ALLOPURINOL 300 MG TAB PO SCH (08:50)
[2017-02-21] MEDS: DOCUSATE SODIUM 100 MG CAP PO SCH ×2 (08:50→21:39)
[2017-02-21] MEDS: buPROPion **XL** TABLET 150MG (WELLBUTRIN XL) PO SCH (08:50)
[2017-02-21] MEDS: PANTOPRAZOLE 40MG TAB (PROTONIX) PO SCH (08:50)
[2017-02-21] MEDS: MAGNESIUM OXIDE 400 MG TAB (MAG-OX) PO SCH ×3 (08:51→21:38)
[2017-02-21] MEDS: ENALAPRIL MALEATE 10 MG TAB PO SCH (08:54)
[2017-02-21] MEDS: CARVedilol 12.5 MG TAB PO SCH ×2 (08:55→21:39)
[2017-02-21] MEDS: amLODIPine 5 MG TAB PO SCH ×2 (08:55→21:39)
[2017-02-21 14:00] VITALS: BP 166/79
--- NOTE | 2017-02-21 17:01 | IPN ---
DATE: 02/21/2017 SUBJECTIVE: Patient seen and examined in the room today. Patient denies any shortness of breath or chest pain. Denied any acute complaints. OBJECTIVE: VITAL SIGNS: Temperature is 97.6, pulse is 67, respirations 18, blood pressure 147/84, pulse oximetry 96% in room air. GENERAL: Morbidly obese. No sign of acute distress. Alert and oriented times three. HEENT: Normocephalic, atraumatic. Extraocular motor grossly intact. CARDIOVASCULAR: Positive S1, S2, regular rate. LUNGS: Mild crackles. No wheezes. ABDOMEN: Soft, nontender, nondistended. Bowel sounds present. EXTREMITIES: Bilateral lower extremity edema, left greater than right. There is some erythema, most significant on the left lower extremity. Laboratory tests ordered and pending. ASSESSMENT AND PLAN: 1. Left lower extremity osteomyelitis. Patient is currently on intravenous (IV) antibiotics. Infectious disease specialist has been consulted. No recurrence of fevers or chills. Wound culture came back positive for Staphylococcus aureus and Streptococcus viridans. Anaerobic culture is pending. Sensitivities reviewed. 2. Right upper extremity deep vein thrombosis (DVT), status post venous lysis and angioplasty of the axillary and subclavian vein, on heparin drip, currently being bridged with warfarin. INR is not therapeutic but started to increase. Currently INR is 1.58. 3. Hypertension, on Vasotec, Coreg, and Norvasc. Vasotec and Norvasc dose have been maxed out. Coreg dosage was recently adjusted. Blood pressure is in better control. Will continue to monitor. 4. Anxiety/depression. Continue amitriptyline and Wellbutrin. 5. Gout, on allopurinol. 6. Acute kidney injury, suspect due to fluid overload. Patient had one dose of Lasix. Will continue to followup with renal functions. 7. Deep vein thrombosis (DVT) prophylaxis. Patient is on heparin drip.
[2017-02-21 18:00] VITALS: BP 155/76
[2017-02-21] MEDS: WARFARIN SOD 5 MG TAB PO SCH (18:23)
[2017-02-21 18:26] LABS: BASO # 0.1 10^3/uL (0.0-0.2); BASO % 1.1 % (0.0-1.0); EOS # 0.5 10^3/uL (0.0-0.50); EOS % 8.6 % (0.0-3.0); IMMATURE GRANULOCYTE % 0.7 % (0-0); LYMPH # 1.8 10^3/uL (1.5-4.5); LYMPH % 30.8 % (24.0-44.0); MEAN CORPUSCULAR HEMOGLOBIN 28.1 pg (27.0-33.0); MEAN CORPUSCULAR HGB CONC 32.5 g/dl (32.0-36.5); MEAN CORPUSCULAR VOLUME 86.5 fl (80.0-96.0); MONO # 0.4 10^3/uL (0.0-0.8); NEUTROPHILS # 2.9 10^3/uL (1.8-7.7); NEUTROPHILS % 51.8 % (36.0-66.0); PLATELET COUNT, AUTOMATED 467 10^3/uL (150-450); RED CELL DISTRIBUTION WIDTH 15.5 % (11.5-14.5); WHITE BLOOD COUNT 5.7 10^3/uL (4.0-10.0)
[2017-02-21 18:27] LABS: ADD MORPHOLOGY? NO
[2017-02-21 18:56] LABS: CALCIUM LEVEL 9.9 MG/DL (8.5-10.1); CREATININE FOR GFR 1.39 MG/DL (0.70-1.30); GLOMERULAR FILTRATION RATE 56.3 (>56); MAGNESIUM LEVEL 1.6 MG/DL (1.8-2.4); POTASSIUM SERUM 4.1 MEQ/L (3.5-5.1)
[2017-02-21] MEDS: ATORVASTATIN 10 MG TAB PO SCH (21:38)
[2017-02-21] MEDS: AMITRIPTYLINE 25 MG TAB PO SCH (21:38)
[2017-02-21 22:00] VITALS: BP 140/62
[2017-02-22] MEDS: PIPERACILLIN/TAZOBACTAM SOD 3.375 GM in D5W 50 ML IV SCH ×4 (01:08→20:59)
[2017-02-22] MEDS: HEPARIN DRIP 25,000 UNITS in APPROPRIATE DILUENT 1 EA IV SCH ×3 (01:08→21:08)
[2017-02-22 02:00] VITALS: BP 120/54
[2017-02-22] MEDS: oxyCODONE 5MG TAB PO PRN ×3 (02:12→19:12)
[2017-02-22] MEDS: VANCOMYCIN HCL 1,000 MG, VIAL MATE ADAPTER 1 EACH in D5W 250 ML IV SCH ×3 (02:46→18:27)
[2017-02-22 06:00] VITALS: BP 130/67
[2017-02-22 06:51] LABS: MEAN CORPUSCULAR HEMOGLOBIN 28.3 pg (27.0-33.0); MEAN CORPUSCULAR HGB CONC 32.3 g/dl (32.0-36.5); MEAN CORPUSCULAR VOLUME 87.8 fl (80.0-96.0); RED CELL DISTRIBUTION WIDTH 15.3 % (11.5-14.5); WHITE BLOOD COUNT 6.6 10^3/uL (4.0-10.0)
[2017-02-22 07:20] LABS: CALCIUM LEVEL 9.5 MG/DL (8.5-10.1); CREATININE FOR GFR 1.36 MG/DL (0.70-1.30); GLOMERULAR FILTRATION RATE 57.7 (>56); MAGNESIUM LEVEL 1.6 MG/DL (1.8-2.4); POTASSIUM SERUM 4.1 MEQ/L (3.5-5.1)
[2017-02-22 08:34] LABS: INR 1.43
[2017-02-22] MEDS: HumaLOG INSULIN (NovoLOG) PER UNIT SC SCH ×4 (08:46→21:00)
[2017-02-22] MEDS: DOCUSATE SODIUM 100 MG CAP PO SCH ×2 (08:47→20:59)
[2017-02-22] MEDS: amLODIPine 5 MG TAB PO SCH ×2 (08:48→20:58)
[2017-02-22] MEDS: buPROPion **XL** TABLET 150MG (WELLBUTRIN XL) PO SCH (08:48)
[2017-02-22] MEDS: MULTIVITAMINS/MINERALS THERAP 1 TAB PO SCH (08:48)
[2017-02-22] MEDS: oxyCODONE 20 MG CR TAB PO SCH ×2 (08:48→20:57)
[2017-02-22] MEDS: PANTOPRAZOLE 40MG TAB (PROTONIX) PO SCH (08:49)
[2017-02-22] MEDS: SENOKOT S TAB PO SCH ×2 (08:49→20:58)
[2017-02-22] MEDS: GLIMEPIRIDE 2 MG TAB PO SCH ×2 (08:49→17:16)
[2017-02-22] MEDS: CARVedilol 12.5 MG TAB PO SCH ×2 (08:49→20:59)
[2017-02-22] MEDS: ENALAPRIL MALEATE 10 MG TAB PO SCH (08:50)
[2017-02-22] MEDS: ALLOPURINOL 300 MG TAB PO SCH (08:50)
[2017-02-22] MEDS: PRIMIDONE 50 MG TAB PO SCH ×2 (08:50→20:59)
[2017-02-22] MEDS: VITAMIN D 1,000 INTERNATIONAL UNITS TABLET PO SCH (08:50)
[2017-02-22] MEDS: MAGNESIUM OXIDE 400 MG TAB (MAG-OX) PO SCH ×3 (08:51→20:58)
[2017-02-22] MEDS: MIRALAX *UNIT DOSE* 17GM PACKET PO SCH (08:51)
[2017-02-22 10:00] VITALS: BP 153/80
[2017-02-22 14:00] VITALS: BP 130/63
[2017-02-22] MEDS: WARFARIN SOD 5 MG TAB PO SCH (17:17)
[2017-02-22 18:20] VITALS: BP 148/70
--- NOTE | 2017-02-22 20:13 | IPN ---
DATE: 02/22/2017 SUBJECTIVE: Patient seen and examined in the room today. Patient denies any recurrent fever or chills. Denies any pain at the left lower extremity. No overnight events reported. OBJECTIVE: VITAL SIGNS: Temperature is 98.8, pulse is 80, respirations 18, blood pressure 153/80, pulse oximetry 94% in room air. GENERAL: No sign of acute distress. Alert and oriented times three. HEENT: Normocephalic, atraumatic. Extraocular motor grossly intact. CARDIOVASCULAR: Positive S1, S2, regular rate. LUNGS: There are some mild crackles bilaterally. No wheezes. ABDOMEN: Soft, nontender, nondistended. Bowel sounds present. No rebound or guarding. EXTREMITIES: Left lower extremity wrapped with dressing. I do not see a wound VAC. There is some erythema of the left lower extremity, improved compared to yesterday. There is still bilateral lower extremity edema, left greater than right. LABORATORY DATA: WBC 6.6, hemoglobin 11.1, hematocrit 34.4, platelet count is 432. Sodium is 138, potassium 4.1, chloride 103, carbon dioxide 29, BUN 11, creatinine 1.36, GFR is 57.7, fasting glucose 175, calcium is 9.5, magnesium 1.6. C-reactive protein is 1.65. PT is 17.8, INR is 1.43, PTT is 76.3. ASSESSMENT AND PLAN: 1. Left lower extremity osteomyelitis. Patient is vancomycin and Zosyn. Infectious disease specialist has been consulted. The patient continues to have improvement in C-reactive protein. We will continue waiting for anaerobe cultures. 2. Right upper extremity deep vein thrombosis (DVT), status post venous lysis and angioplasty of the axillary and subclavian vein. The patient is currently on heparin drip, in the process of being bridged to warfarin. However, warfarin is still not therapeutic. 3. Hypertension, on Norvasc, Coreg and Vasotec. The patient has maxed out the Vasotec and Norvasc dosage. Currently, Coreg is being adjusted based on the patient's blood pressure. 4. Anxiety/depression. Continue amitriptyline and Wellbutrin. 5. Gout, on allopurinol. 6. Acute kidney injury, suspect due to fluid overload. Patient had one dose of Lasix diuresis. The patient's IV fluid has been discontinued. Renal function is improving. 7. Deep vein thrombosis (DVT) prophylaxis. Patient is on heparin drip.
[2017-02-22] MEDS: AMITRIPTYLINE 25 MG TAB PO SCH (20:58)
[2017-02-22] MEDS: ATORVASTATIN 10 MG TAB PO SCH (20:58)
[2017-02-22 22:00] VITALS: BP 160/74
[2017-02-23 02:00] VITALS: BP 136/62
[2017-02-23] MEDS: PIPERACILLIN/TAZOBACTAM SOD 3.375 GM in D5W 50 ML IV SCH ×3 (02:01→14:14)
[2017-02-23] MEDS: oxyCODONE 5MG TAB PO PRN ×4 (02:27→18:25)
[2017-02-23] MEDS: VANCOMYCIN HCL 1,000 MG, VIAL MATE ADAPTER 1 EACH in D5W 250 ML IV SCH ×2 (03:25→11:26)
[2017-02-23 06:00] VITALS: BP 133/72
[2017-02-23] MEDS: HEPARIN DRIP 25,000 UNITS in APPROPRIATE DILUENT 1 EA IV SCH ×2 (06:41→17:40)
[2017-02-23 07:04] LABS: MEAN CORPUSCULAR HEMOGLOBIN 27.8 pg (27.0-33.0); MEAN CORPUSCULAR HGB CONC 31.6 g/dl (32.0-36.5); MEAN CORPUSCULAR VOLUME 87.9 fl (80.0-96.0); RED CELL DISTRIBUTION WIDTH 15.6 % (11.5-14.5); WHITE BLOOD COUNT 6.7 10^3/uL (4.0-10.0)
[2017-02-23 07:16] LABS: INR 1.42
[2017-02-23 07:28] LABS: CALCIUM LEVEL 9.6 MG/DL (8.5-10.1); CREATININE FOR GFR 1.44 MG/DL (0.70-1.30); MAGNESIUM LEVEL 1.7 MG/DL (1.8-2.4); POTASSIUM SERUM 4.2 MEQ/L (3.5-5.1)
[2017-02-23] MEDS: oxyCODONE 20 MG CR TAB PO SCH ×2 (08:59→21:35)
[2017-02-23] MEDS: PRIMIDONE 50 MG TAB PO SCH ×2 (09:01→21:32)
[2017-02-23] MEDS: PANTOPRAZOLE 40MG TAB (PROTONIX) PO SCH (09:02)
[2017-02-23] MEDS: ENALAPRIL MALEATE 10 MG TAB PO SCH (09:02)
[2017-02-23] MEDS: ALLOPURINOL 300 MG TAB PO SCH (09:02)
[2017-02-23] MEDS: SENOKOT S TAB PO SCH ×2 (09:02→21:32)
[2017-02-23] MEDS: VITAMIN D 1,000 INTERNATIONAL UNITS TABLET PO SCH (09:03)
[2017-02-23] MEDS: buPROPion **XL** TABLET 150MG (WELLBUTRIN XL) PO SCH (09:03)
[2017-02-23] MEDS: GLIMEPIRIDE 2 MG TAB PO SCH ×2 (09:04→17:47)
[2017-02-23] MEDS: CARVedilol 12.5 MG TAB PO SCH ×2 (09:05→21:34)
[2017-02-23] MEDS: MAGNESIUM OXIDE 400 MG TAB (MAG-OX) PO SCH ×3 (09:05→21:33)
[2017-02-23] MEDS: MULTIVITAMINS/MINERALS THERAP 1 TAB PO SCH (09:06)
[2017-02-23] MEDS: amLODIPine 5 MG TAB PO SCH ×2 (09:06→21:34)
[2017-02-23] MEDS: DOCUSATE SODIUM 100 MG CAP PO SCH ×2 (09:06→21:33)
[2017-02-23] MEDS: HumaLOG INSULIN (NovoLOG) PER UNIT SC SCH ×4 (09:07→21:32)
[2017-02-23 10:00] VITALS: BP 136/75
--- NOTE | 2017-02-23 12:27 | IPN ---
DATE: 02/23/2017 Patient seen and examined at bedside. Denies overnight complaints. States not much pain in his foot. No pain near the heel. Vital signs are examined. He has been afebrile for the weekend. Labs are reviewed. White blood cell count 6.7, CRP trending down, presently 1.24. His INR is subtherapeutic at 1.42. Lower extremity examination: Edema and erythema somewhat improved of the foot. No malodor of wounds. No necrotic tissue noted. No purulence is seen. ASSESSMENT: 56-year-old male with osteomyelitis status post puncture wound, upper extremity deep venous thrombosis (DVT) following peripherally inserted central catheter (PICC) line. PLAN: Presently, continue wet-to-dry dressings. Will hold on wound Vac until infection resolves. Suspect he will be able to be discharged on oral antibiotics; however, will defer to Dr. Ivory for antibiotic selection and duration. Will plan for wound care evaluation for hyperbaric oxygen treatment as adjunctive for osteomyelitis.
[2017-02-23 14:00] VITALS: BP 143/79
--- NOTE | 2017-02-23 16:50 | IPN ---
DATE: 02/23/2017 SUBJECTIVE: Patient seen and examined in the room today. The patient still complains about swelling of the left lower extremities, but the redness has been improving. Denies any recurrent fever or chills. Denies any difficulty breathing. No chest pain. OBJECTIVE: VITAL SIGNS: Temperature is 97.6, pulse is 77, respirations 18, blood pressure 136/75, pulse oximetry is 97% on room air. GENERAL: No sign of acute distress. Morbidly obese. Alert and oriented times three. HEENT: Normocephalic, atraumatic. Extraocular motor grossly intact. CARDIOVASCULAR: Positive S1, S2, regular rate. LUNGS: Clear to auscultation bilaterally. No wheezes. ABDOMEN: Soft, nontender, nondistended. Bowel sounds present. No rebound or guarding. EXTREMITIES: Left lower extremity is wrapped with a dressing. No active discharge noted. There is still some residual erythema of the left lower extremity below the mid ruby. There is significant nonpitting edema of the left lower extremity below the knee. LABORATORY DATA: WBC 6.7, hemoglobin 11.5, hematocrit 36.4, platelet count is 445. Sodium is 136, potassium 4.2, chloride 102, carbon dioxide 28, BUN 12, creatinine 1.44, GFR is 54, fasting glucose 222, calcium is 9.6, magnesium 1.6. C-reactive protein is 1.24. ASSESSMENT AND PLAN: 1. Left calcaneal osteomyelitis. Currently, patient is vancomycin and Zosyn. Wound culture preliminary shows positive for Staphylococcus aureus and Streptococcus viridans. Anaerobe cultures still pending. Dr. Izaguirre has been consulted, who recommended to continue antibiotic regimen. We will hold off the wound VAC until infection resolves. 2. Right upper extremity deep vein thrombosis (DVT), status post venous lysis and angioplasty of the axillary and subclavian vein. The patient is currently on heparin drip, in the process of being bridged to warfarin. However, warfarin is still not therapeutic. Target INR range is about 2.5. 3. Hypertension, on Norvasc, Coreg and Vasotec. The patient has maxed out the Vasotec and Norvasc dosage. Coreg was being adjusted. Blood pressure is in the satisfactory range. 4. Acute kidney injury. Continue to monitor the patient. Previously, the patient had an acute kidney injury, improved with diuretic and it with discontinuing IV fluid. Recently, the patient was also started on vancomycin and Zosyn for osteomyelitis, currently we are waiting for the final report for the wound culture so that we can tailor the antibiotics. Assess the patient's fluid status. The patient may need intermittent Lasix if the patient's net fluid status shows significant positive. 5. Anxiety/depression. Continue amitriptyline and Wellbutrin. 6. Gout, on allopurinol. 7. Deep vein thrombosis (DVT) prophylaxis. Patient is on heparin drip. Currently in the process of bridging with warfarin. INR today is 1.42.
[2017-02-23] MEDS: WARFARIN SOD 5 MG TAB PO SCH (17:47)
[2017-02-23 18:00] VITALS: BP 153/79
--- NOTE | 2017-02-23 21:29 | IPN ---
DATE: 02/23/2017 INFECTIOUS DISEASE: Mr. Herrera is doing great. He was taking a nap when we came to his room. He denies any fever or chills. The redness in his leg has markedly improved, the pain as well. He still does not have a wound VAC. On physical examination, temperature is 97.6, pulse 70, respirations 20, blood pressure 153/79, O2 sat 97% on room air. His last temperature was on 02/18. Heart: Normal S1-S2. No murmurs. Lungs: Are clear. Abdomen: Morbidly obese, left leg erythema has markedly decreased, less swollen. He has +1 pitting edema bilaterally. MEDICATIONS: - Zosyn 3.37 grams IV - vancomycin was discontinued today LABORATORY DATA: White count of 6.7, hemoglobin 11.5, hematocrit 36.4, platelets 445. Sodium 136, potassium 4.2, chloride 102, bicarb 28, BUN 12. creatinine 1.44, glucose 222, calcium 8.6, magnesium 1.7, CRP 1.24. Wound culture had methicillin-susceptible Staphylococcus aureus (MSSA) and Streptococcus viridans. Anaerobic cultures are pending. Guaiac stool was positive, one out of three specimens. Blood cultures were negative. IMPRESSION: 1. Acute cellulitis of left lower extremity related to MSSA and Group C strep. Doing much better with IV Zosyn and vancomycin. Vancomycin will be discontinued. Also could switch Zosyn to Augmentin 875 mg by mouth twice a day for treatment of cellulitis. 2. History of left calcaneus osteomyelitis with MRI findings suggestive of worsening findings compared to MRI done on 12/11. Of note MRI done on 12/11 was at the beginning of the admission and probably did not show all the changes that have developed from the infection. The osteomyelitis clinically has improved as well. His CRP is only 1.24 and sed rate 29. PLAN: Discontinue IV Zosyn in the morning, switch to by mouth Augmentin 875 mg by mouth twice a day. To continue for one month. Referral to Dr. Knapp for evaluation for hyperbaric treatment for calcaneus osteomyelitis. Agree with Dr. Izaguirre's note.
[2017-02-23] MEDS: AMITRIPTYLINE 25 MG TAB PO SCH (21:34)
[2017-02-23] MEDS: ATORVASTATIN 10 MG TAB PO SCH (21:34)
[2017-02-23 22:00] VITALS: BP 142/73
--- NOTE | 2017-02-23 22:35 | IPNPDOC ---
Date Seen The patient was seen on 02/23/17. Progress Note SUBJECTIVE: Patient is without complaints. OBJECTIVE PHYSICAL EXAMINATION: VITAL SIGNS: Please see below. GENERAL: Sitting in the chair watching TV comfortably HEENT: Normal CARDIOVASCULAR: Regular rate and rhythm. RESPIRATORY: Clear to auscultation bilaterally. ABDOMINAL: Soft nontender nondistended EXTREMITIES: Right upper extremity with minimal swelling. Left lower extremity well-perfused with 1+ edema NEUROLOGICAL: Awake alert oriented x3 PSYCHOLOGICAL: Normal LABORATORY DATA: Please see below. MICROBIOLOGY: Please see below. DVT prophylaxis ordered?: Patient currently therapeutic on heparin and being converted to Coumadin ASSESSMENT AND PLAN: This is a 56-year-old male with a left lower extremity osteomyelitis of his calcaneous who initially underwent 6 weeks of IV antibiotics and now has recurrence and incomplete resolution of his left heel osteo myelitis. Patient had right upper extremity DVT from a PICC line and underwent from a lysis place with good result. Patient is currently on IV heparin with transition to Coumadin. PROBLEMS: 1. right upper extremity DVT: Patient is status post thrombolysis with angioplasty of the axillary and subclavian vein. Patient is a heparin drip with conversion to Coumadin with a target INR of 2.5. 2. left heel osteomyelitis: Patient will be converted from IV Zosyn and I go to by mouth Augmentin. DISPOSITION: Patient will be discharged on oral Augmentin and Coumadin once INR is 2.5-3.5 range. [facility] Vital Signs Date Time Temp Pulse Resp B/P (MAP) Pulse Ox O2 Delivery O2 Flow Rate FiO2 02/23/17 21:35 97.6 70 18 153/79 97 Room Air 2.0 I&O- Last 24 Hours up to 6 AM 02/24/17 06:00 Intake Total 1860 ml Output Total 2 ml Balance 1858 ml Laboratory Data 24H LABS Laboratory Tests 2 02/23/17 06:44: Prothrombin Time 17.7H, Prothromb Time International Ratio 1.42, Activated Partial Thromboplast Time 97.7H, Anion Gap 6L, Glomerular Filtration Rate 54.0L , Blood Urea Nitrogen 12, Creatinine 1.44H, Sodium Level 136, Potassium Level 4.2, Chloride Level 102, Carbon Dioxide Level 28, Calcium Level 9.6, Magnesium Level 1.7L, C-Reactive Protein, Quantitative 1.24H 02/23/17 11:30: Bedside Glucose (Misc Panel) 283H 02/23/17 11:56: Bedside Glucose (Misc Panel) 274H 02/23/17 17:23: Bedside Glucose (Misc Panel) 207H 02/23/17 19:27: Activated Partial Thromboplast Time 76.6H 02/23/17 20:35: Bedside Glucose (Misc Panel) 265H CBC/BMP Laboratory Tests 02/23/17 06:44 Red Blood Count 4.14 L, Mean Corpuscular Volume 87.9, Mean Corpuscular Hemoglobin 27.8, Mean Corpuscular Hemoglobin Concent 31.6 L, Red Cell Distribution Width 15.6 H, Calcium Level 9.6 Microbiology Microbiology 02/18/17 Blood Culture - Final, Complete NO GROWTH AFTER 5 DAYS 02/18/17 Blood Culture - Final, Complete NO GROWTH AFTER 5 DAYS 02/23/17 Stool Occult Blood (ANTOINE) - Final, Complete 02/22/17 Stool Occult Blood (ANTOINE) - Final, Complete 02/20/17 Stool Occult Blood (ANTOINE) - Final, Complete 02/18/17 Stool Occult Blood (ANTOINE) - Final, Complete 02/16/17 Stool Occult Blood (ANTOINE) - Final, Complete 02/18/17 Respiratory Virus Panel (PCR) (ANTOINE) - Final, Complete 02/18/17 Gram Stain - Final, Resulted 02/18/17 Wound Culture - Final, Resulted Staphylococcus Aureus Streptococcus Viridans Group 02/18/17 Anaerobic Culture, Resulted Pending Osmar Go MD Feb 23, 2017 22:35
--- NOTE | 2017-02-23 22:38 | IPNPDOC ---
Date Seen The patient was seen on 02/22/17. Progress Note SUBJECTIVE: Patient is without complaints. OBJECTIVE PHYSICAL EXAMINATION: VITAL SIGNS: Please see below. GENERAL: Sitting in a chair comfortably HEENT: Normal CARDIOVASCULAR: Regular rate and rhythm. RESPIRATORY: Clear to auscultation bilaterally. ABDOMINAL: Soft nontender nondistended EXTREMITIES: Right upper extremity with minimal swelling and good perfusion. Left lower extremity with 1+ edema and left foot wounds clean with good granulation tissue. NEUROLOGICAL: Awake alert oriented x3 PSYCHOLOGICAL: Normal LABORATORY DATA: Please see below. MICROBIOLOGY: Please see below. DVT prophylaxis ordered?: Patient currently therapeutic on heparin and being converted to Coumadin ASSESSMENT AND PLAN: This is a 56-year-old male with right upper extremity DVT and left foot wound with osteomyelitis of the calcaneus. PROBLEMS: 1. right upper extremity DVT: Patient is status post thrombolysis with plasty of the right axillary and subclavian vein with decreased swelling and pain in the right upper extremity. Patient is on heparin drip and being converted to Coumadin with a target INR of 2.5-3.5. 2. left heel wounds and osteomyelitis: Patient is currently on IV ankle and Zosyn and undergoing wet to dry dressing for his left foot wounds. 3. : . DISPOSITION: . VS, I&O, 24H, [facility] Vital Signs/I&O Vital Signs Date Time Temp Pulse Resp B/P (MAP) Pulse Ox O2 Delivery O2 Flow Rate FiO2 02/23/17 21:35 97.6 70 18 153/79 97 Room Air 2.0 I&O- Last 24 Hours up to 6 AM 02/24/17 06:00 Intake Total 1860 ml Output Total 2 ml Balance 1858 ml Laboratory Data 24H LABS Laboratory Tests 2 02/23/17 06:44: Prothrombin Time 17.7H, Prothromb Time International Ratio 1.42, Activated Partial Thromboplast Time 97.7H, Anion Gap 6L, Glomerular Filtration Rate 54.0L , Blood Urea Nitrogen 12, Creatinine 1.44H, Sodium Level 136, Potassium Level 4.2, Chloride Level 102, Carbon Dioxide Level 28, Calcium Level 9.6, Magnesium Level 1.7L, C-Reactive Protein, Quantitative 1.24H 02/23/17 11:30: Bedside Glucose (Misc Panel) 283H 02/23/17 11:56: Bedside Glucose (Misc Panel) 274H 02/23/17 17:23: Bedside Glucose (Misc Panel) 207H 02/23/17 19:27: Activated Partial Thromboplast Time 76.6H 02/23/17 20:35: Bedside Glucose (Misc Panel) 265H CBC/BMP Laboratory Tests 02/23/17 06:44 Red Blood Count 4.14 L, Mean Corpuscular Volume 87.9, Mean Corpuscular Hemoglobin 27.8, Mean Corpuscular Hemoglobin Concent 31.6 L, Red Cell Distribution Width 15.6 H, Calcium Level 9.6 Microbiology Microbiology 02/18/17 Blood Culture - Final, Complete NO GROWTH AFTER 5 DAYS 02/18/17 Blood Culture - Final, Complete NO GROWTH AFTER 5 DAYS 02/23/17 Stool Occult Blood (ANTOINE) - Final, Complete 02/22/17 Stool Occult Blood (ANTOINE) - Final, Complete 02/20/17 Stool Occult Blood (ANTOINE) - Final, Complete 02/18/17 Stool Occult Blood (ANTOINE) - Final, Complete 02/16/17 Stool Occult Blood (ANTOINE) - Final, Complete 02/18/17 Respiratory Virus Panel (PCR) (ANTOINE) - Final, Complete 02/18/17 Gram Stain - Final, Resulted 02/18/17 Wound Culture - Final, Resulted Staphylococcus Aureus Streptococcus Viridans Group 02/18/17 Anaerobic Culture, Resulted Pending Osmar Go MD Feb 23, 2017 22:38
[2017-02-24] MEDS: oxyCODONE 5MG TAB PO PRN ×3 (01:14→15:11)
[2017-02-24] MEDS ORDERED: HEPARIN SOD (PORCINE) 5000 UNITS/ML VIAL IV PRN ×3 (01:30→02:00)
[2017-02-24 02:00] VITALS: BP 136/67
[2017-02-24] MEDS: HEPARIN DRIP 25,000 UNITS in APPROPRIATE DILUENT 1 EA IV SCH ×3 (02:54→22:26)
[2017-02-24 06:00] VITALS: BP 134/70
[2017-02-24 06:56] LABS: MEAN CORPUSCULAR HGB CONC 31.8 g/dl (32.0-36.5); MEAN CORPUSCULAR VOLUME 88.1 fl (80.0-96.0); RED CELL DISTRIBUTION WIDTH 15.6 % (11.5-14.5); WHITE BLOOD COUNT 6.7 10^3/uL (4.0-10.0)
[2017-02-24 07:05] LABS: INR 1.31
[2017-02-24 07:20] LABS: CALCIUM LEVEL 9.3 MG/DL (8.5-10.1); CREATININE FOR GFR 1.33 MG/DL (0.70-1.30); GLOMERULAR FILTRATION RATE 59.2 (>56); MAGNESIUM LEVEL 1.5 MG/DL (1.8-2.4); POTASSIUM SERUM 4.4 MEQ/L (3.5-5.1)
[2017-02-24] MEDS: GLIMEPIRIDE 2 MG TAB PO SCH (07:30)
[2017-02-24] MEDS: MIRALAX *UNIT DOSE* 17GM PACKET PO SCH (09:00)
[2017-02-24 10:00] VITALS: BP 148/82
[2017-02-24] MEDS: VITAMIN D 1,000 INTERNATIONAL UNITS TABLET PO SCH (10:36)
[2017-02-24] MEDS: ALLOPURINOL 300 MG TAB PO SCH (10:37)
[2017-02-24] MEDS: ENALAPRIL MALEATE 10 MG TAB PO SCH (10:37)
[2017-02-24] MEDS: MULTIVITAMINS/MINERALS THERAP 1 TAB PO SCH (10:38)
[2017-02-24] MEDS: DOCUSATE SODIUM 100 MG CAP PO SCH ×2 (10:38→20:39)
[2017-02-24] MEDS: CARVedilol 12.5 MG TAB PO SCH ×2 (10:38→20:40)
[2017-02-24] MEDS: PANTOPRAZOLE 40MG TAB (PROTONIX) PO SCH (10:39)
[2017-02-24] MEDS: MAGNESIUM OXIDE 400 MG TAB (MAG-OX) PO SCH ×3 (10:39→20:39)
[2017-02-24] MEDS: AUGMENTIN 875 MG TAB PO SCH ×2 (10:39→20:39)
[2017-02-24] MEDS: PRIMIDONE 50 MG TAB PO SCH ×2 (10:40→20:39)
[2017-02-24] MEDS: amLODIPine 5 MG TAB PO SCH ×2 (10:40→20:41)
[2017-02-24] MEDS: buPROPion **XL** TABLET 150MG (WELLBUTRIN XL) PO SCH (10:41)
[2017-02-24] MEDS: SENOKOT S TAB PO SCH ×2 (10:41→20:39)
[2017-02-24] MEDS: oxyCODONE 20 MG CR TAB PO SCH ×2 (10:42→20:38)
[2017-02-24] MEDS: HumaLOG INSULIN (NovoLOG) PER UNIT SC SCH ×4 (10:43→20:28)
[2017-02-24] MEDS ORDERED: MAG SULF 1GM/100ML (MAG RUN) 1 GM in APPROPRIATE DILUENT 1 EA IV ONE (11:00)
[2017-02-24 14:00] VITALS: BP 126/64
[2017-02-24] MEDS: LEVEMIR (INSULIN DETEMIR) 1 UNITS/0.01ML SC SCH ×2 (14:24→20:40)
--- NOTE | 2017-02-24 16:57 | IPNPDOC ---
Date Seen The patient was seen on 02/24/17. Progress Note SUBJECTIVE: Patient is a 56-year-old male who is evaluated at bedside this afternoon. He is sitting in a chair watching television upon evaluation. He is pleasant. He continues to remain sub-therapeutic with Coumadin and is still currently being bridged with Heparin. Patient is also on Primidone for a head and left arm tremor that he sustained from an injury approximately 10 years ago. He admits to taking more Primidone than what is prescribed and will sometimes take his Primidone up to three times a day. It is currently prescribed twice a day. He has not recently seen a neurologist and his primary care provider prescribes his Primidone. OBJECTIVE PHYSICAL EXAMINATION: VITAL SIGNS: Please see below. GENERAL: Well nourished, well developed male, appears stated age, no acute distress HEENT: Atraumatic, normocephalic, PERRL, EOMI, oral mucosa appears pink and moist, nasal septum appears midline, nares are patent CARDIOVASCULAR: Regular rate and rhythm, normal S1 and S2, no murmur, rub, click RESPIRATORY: Clear to auscultation bilaterally, adequate inspiratory and expiratory airway excursion, no wheeze, rhonchi, crackles ABDOMINAL: Obese, round, soft, non-tender, non-distended EXTREMITIES: +1 pitting edema appreciated part-way up the left lower leg, erythema improved and only part-way up the calf, stage IV wound ulcer approximately 2.5 x 1.5 cm noted on the heel of the left foot without drainage of bleeding, somewhat linear stage IV wound ulcer noted on the medial aspect of the left foot proximal to the medial malleolus extending posterior to anterior approximately 10 cm in length without drainage or bleeding, somewhat dry skin noted on the plantar aspect of the left foot, foot is warm and moist NEUROLOGICAL: CN II-XII grossly intact PSYCHOLOGICAL: Alert and conversant, pleasant LABORATORY DATA: Please see below. MICROBIOLOGY: Please see below. DVT prophylaxis ordered?: Heparin drip, Warfarin 20mg daily ASSESSMENT AND PLAN: This is a 56-year-old male with acute left lower extremity cellulitis and history of calcaneal osteomyelitis of the left foot. PROBLEMS: 1. Acute left lower extremity cellulitis: Patient has been switched to oral Augmentin 875mg twice a day. Clinically the erythema appears to be improving. CRP was 0.81. 2. History of left foot calcaneal osteomyelitis: Undressed, cleaned, and dressed wound. No drainage or bleeding appreciated. Clinically appears to be improving. CRP was 0.81. Per podiatry, will hold wound VAC for the time-being. 3. Right upper extremity DVT: Patient is currently on Coumadin 20mg daily and Heparin drip in order to maintain therapeutic INR of 2.5-3.5; however, it has been difficult to obtain therapeutic INR as patient has been on Primidone for head and left arm tremor secondary prior injury. Have verbally discussed case with neurology for recommendations for alternatives to Primidone. Per discussion with neurology there may not be any alternatives, but neurology has agreed to be formally consulted and will await their recommendations. Could consider switching patient to SC Lovenox for anticoagulation as therapeutic INR has not been attained. DISPOSITION: Continue with Augmentin 875mg TWICE daily. Consulted neurology for possible alternatives to Primidone therapy secondary to patient's continued sub-therapeutic INR while on Coumadin. Continue to bridge with Heparin. Could consider switching patient to SC Lovenox for continued anticoagulation. [facility]O Vital Signs Date Time Temp Pulse Resp B/P (MAP) Pulse Ox O2 Delivery O2 Flow Rate FiO2 02/24/17 15:11 18 02/24/17 14:00 97.3 80 126/64 (84) 96 Room Air 02/24/17 06:07 2.0 I&O- Last 24 Hours up to 6 AM 02/25/17 06:00 Intake Total 1020 ml Balance 1020 ml Laboratory Data 24H LABS Laboratory Tests 2 02/23/17 17:23: Bedside Glucose (Misc Panel) 207H 02/23/17 19:27: Activated Partial Thromboplast Time 76.6H 02/23/17 20:35: Bedside Glucose (Misc Panel) 265H 02/24/17 05:36: Bedside Glucose (Misc Panel) 214H 02/24/17 06:38: Prothrombin Time 16.6H, Prothromb Time International Ratio 1.31, Activated Partial Thromboplast Time 81.2H, Anion Gap 5L, Glomerular Filtration Rate 59.2, Blood Urea Nitrogen 12, Creatinine 1.33H, Sodium Level 136, Potassium Level 4.4 , Chloride Level 103, Carbon Dioxide Level 28, Calcium Level 9.3, Magnesium Level 1.5L, C-Reactive Protein, Quantitative 0.81H 02/24/17 11:35: Bedside Glucose (Misc Panel) 310H CBC/BMP Laboratory Tests 02/24/17 06:38 Red Blood Count 4.03 L, Mean Corpuscular Volume 88.1, Mean Corpuscular Hemoglobin 28.0, Mean Corpuscular Hemoglobin Concent 31.8 L, Red Cell Distribution Width 15.6 H, Calcium Level 9.3 Microbiology Microbiology 02/18/17 Blood Culture - Final, Complete NO GROWTH AFTER 5 DAYS 02/18/17 Blood Culture - Final, Complete NO GROWTH AFTER 5 DAYS 02/23/17 Stool Occult Blood (ANTOINE) - Final, Complete 02/22/17 Stool Occult Blood (ANTOINE) - Final, Complete 02/20/17 Stool Occult Blood (ANTOINE) - Final, Complete 02/18/17 Stool Occult Blood (ANTOINE) - Final, Complete 02/16/17 Stool Occult Blood (ANTOINE) - Final, Complete 02/18/17 Respiratory Virus Panel (PCR) (ANTOINE) - Final, Complete 02/18/17 Gram Stain - Final, Complete 02/18/17 Wound Culture - Final, Complete Staphylococcus Aureus Streptococcus Viridans Group 02/18/17 Anaerobic Culture - Final, Complete Prev[employer]ella [employer] APRIL MACHUCA Feb 24, 2017 16:57 Madi Ivory MD Mar 06, 2017 08:24
[2017-02-24] MEDS: WARFARIN SOD 5 MG TAB PO SCH (17:59)
[2017-02-24 18:00] VITALS: BP 136/74
[2017-02-24] MEDS: AMITRIPTYLINE 25 MG TAB PO SCH (20:39)
[2017-02-24] MEDS: ATORVASTATIN 10 MG TAB PO SCH (20:40)
[2017-02-24] MEDS: BENZTROPINE 1 MG TAB PO SCH (20:51)
[2017-02-24 22:00] VITALS: BP 146/69
[2017-02-25 02:00] VITALS: BP 150/72
[2017-02-25] MEDS: oxyCODONE 5MG TAB PO PRN ×3 (02:09→17:02)
[2017-02-25 06:00] VITALS: BP 144/66
[2017-02-25 07:02] LABS: MEAN CORPUSCULAR HEMOGLOBIN 28.1 pg (27.0-33.0); MEAN CORPUSCULAR HGB CONC 31.9 g/dl (32.0-36.5); RED CELL DISTRIBUTION WIDTH 15.4 % (11.5-14.5); WHITE BLOOD COUNT 6.8 10^3/uL (4.0-10.0)
[2017-02-25 07:21] LABS: INR 1.47
[2017-02-25 07:25] LABS: ANION GAP 4 MEQ/L (8-16); BLOOD UREA NITROGEN 12 MG/DL (7-18); CALCIUM LEVEL 9.6 MG/DL (8.5-10.1); CARBON DIOXIDE LEVEL 29 MEQ/L (21-32); CHLORIDE LEVEL 104 MEQ/L (98-107); CREATININE FOR GFR 1.21 MG/DL (0.70-1.30); GLOMERULAR FILTRATION RATE > 60.0 (>56); GLUCOSE, FASTING 181 MG/DL (70-105); POTASSIUM SERUM 4.4 MEQ/L (3.5-5.1); SODIUM LEVEL 137 MEQ/L (136-145)
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
[2017-02-25] MEDS: HEPARIN DRIP 25,000 UNITS in APPROPRIATE DILUENT 1 EA IV SCH ×2 (09:34→19:28)
[2017-02-25] MEDS: MAGNESIUM OXIDE 400 MG TAB (MAG-OX) PO SCH ×3 (09:36→20:17)
[2017-02-25] MEDS: AUGMENTIN 875 MG TAB PO SCH ×2 (09:36→20:17)
[2017-02-25] MEDS: VITAMIN D 1,000 INTERNATIONAL UNITS TABLET PO SCH (09:36)
[2017-02-25] MEDS: ENALAPRIL MALEATE 10 MG TAB PO SCH (09:37)
[2017-02-25] MEDS: buPROPion **XL** TABLET 150MG (WELLBUTRIN XL) PO SCH (09:37)
[2017-02-25] MEDS: DOCUSATE SODIUM 100 MG CAP PO SCH ×2 (09:37→20:17)
[2017-02-25] MEDS: CARVedilol 12.5 MG TAB PO SCH ×2 (09:37→20:19)
[2017-02-25] MEDS: PRIMIDONE 50 MG TAB PO SCH ×2 (09:38→20:18)
[2017-02-25] MEDS: BENZTROPINE 1 MG TAB PO SCH ×2 (09:38→20:17)
[2017-02-25] MEDS: MULTIVITAMINS/MINERALS THERAP 1 TAB PO SCH (09:38)
[2017-02-25] MEDS: ALLOPURINOL 300 MG TAB PO SCH (09:38)
[2017-02-25] MEDS: SENOKOT S TAB PO SCH ×2 (09:38→20:17)
[2017-02-25] MEDS: PANTOPRAZOLE 40MG TAB (PROTONIX) PO SCH (09:38)
[2017-02-25] MEDS: amLODIPine 5 MG TAB PO SCH ×2 (09:38→20:18)
[2017-02-25] MEDS: HumaLOG INSULIN (NovoLOG) PER UNIT SC SCH ×4 (09:39→20:19)
[2017-02-25] MEDS: LEVEMIR (INSULIN DETEMIR) 1 UNITS/0.01ML SC SCH ×2 (09:39→20:20)
[2017-02-25 09:53] VITALS: BP 135/64
[2017-02-25] MEDS: oxyCODONE 20 MG CR TAB PO SCH ×2 (11:10→20:24)
--- NOTE | 2017-02-25 13:07 | IPNPDOC ---
Date Seen The patient was seen on 02/25/17. Progress Note SUBJECTIVE: Patient is without complaints. OBJECTIVE PHYSICAL EXAMINATION: VITAL SIGNS: Please see below. GENERAL: Lying in bed comfortably HEENT: Normal CARDIOVASCULAR: Regular rate and rhythm. RESPIRATORY: Clear to auscultation bilaterally. ABDOMINAL: Soft nontender nondistended EXTREMITIES: Right upper extremity is stable with minimal swelling and good perfusion. Left lower extremities swelling is unchanged and is approximately 1 + edema. Foot wounds are stable with good granulation tissue on the left. NEUROLOGICAL: Awake alert oriented x3 PSYCHOLOGICAL: Normal LABORATORY DATA: Please see below. MICROBIOLOGY: Please see below. DVT prophylaxis ordered?: Patient currently on IV heparin which is therapeutic and being converted to Coumadin. ASSESSMENT AND PLAN: This is a 56 showed male with left calcaneal osteomyelitis and right upper extremity deep venous thrombosis who underwent a trauma laces with angioplasty of the axillary and subclavian veins. Patient has had difficulty with obtaining a therapeutic INR. Neurology was consulted and his primidone will be weaned off and hopefully this will allow his INR to become therapeutic. PROBLEMS: 1. right upper extremity DVT: Patient is status post lumbar laces and currently on heparin drip and being converted to Coumadin. The primidone is being weaned off and hopefully this will allow his INR to become therapeutic. 2. left calcaneal osteomyelitis and wounds: Patient has been switched to oral antibiotics and is on Augmentin 875 mg twice daily. DISPOSITION: Patient will be discharged once his INR is therapeutic with a goal range of 2.5-3.5. VS, I&O, 24H, Fishbone Vital Signs/I&O Vital Signs Date Time Temp Pulse Resp B/P (MAP) Pulse Ox O2 Delivery O2 Flow Rate FiO2 02/25/17 11:10 20 02/25/17 10:05 Room Air 02/25/17 09:53 98.2 84 135/64 (87) 94 02/24/17 06:07 2.0 I&O- Last 24 Hours up to 6 AM 02/26/17 06:00 Intake Total 720 ml Output Total 0 ml Balance 720 ml Laboratory Data 24H LABS Laboratory Tests 2 02/24/17 16:49: Bedside Glucose (Misc Panel) 192H 02/24/17 20:10: Bedside Glucose (Misc Panel) 166H 02/25/17 06:41: Prothrombin Time 18.2H, Prothromb Time International Ratio 1.47, Activated Partial Thromboplast Time 83.1H, Anion Gap 4L, Glomerular Filtration Rate > 60.0 , Blood Urea Nitrogen 12, Creatinine 1.21, Sodium Level 137, Potassium Level 4.4 , Chloride Level 104, Carbon Dioxide Level 29, Calcium Level 9.6, C-Reactive Protein, Quantitative 0.60H 02/25/17 11:50: Bedside Glucose (Misc Panel) 302H CBC/BMP Laboratory Tests 02/25/17 06:41 Red Blood Count 3.99 L, Mean Corpuscular Volume 88.0, Mean Corpuscular Hemoglobin 28.1, Mean Corpuscular Hemoglobin Concent 31.9 L, Red Cell Distribution Width 15.4 H, Calcium Level 9.6 Microbiology Microbiology 02/18/17 Blood Culture - Final, Complete NO GROWTH AFTER 5 DAYS 02/18/17 Blood Culture - Final, Complete NO GROWTH AFTER 5 DAYS 02/24/17 Stool Occult Blood (ANTOINE) - Final, Complete 02/23/17 Stool Occult Blood (ANTOINE) - Final, Complete 02/22/17 Stool Occult Blood (ANTOINE) - Final, Complete 02/20/17 Stool Occult Blood (ANTOINE) - Final, Complete 02/18/17 Stool Occult Blood (ANTOINE) - Final, Complete 02/16/17 Stool Occult Blood (ANTOINE) - Final, Complete 02/18/17 Respiratory Virus Panel (PCR) (ANTOINE) - Final, Complete 02/18/17 Gram Stain - Final, Complete 02/18/17 Wound Culture - Final, Complete Staphylococcus Aureus Streptococcus Viridans Group 02/18/17 Anaerobic Culture - Final, Complete Prevotella Intermedia Osmar Go MD Feb 25, 2017 13:07
[2017-02-25 14:47] VITALS: BP 148/71
[2017-02-25] MEDS: SANTYL OINT 30GM TOP SCH (15:52)
[2017-02-25] MEDS: WARFARIN SOD 5 MG TAB PO SCH (17:01)
[2017-02-25 18:00] VITALS: BP 154/78
[2017-02-25] MEDS: AMITRIPTYLINE 25 MG TAB PO SCH (20:17)
[2017-02-25] MEDS: ATORVASTATIN 10 MG TAB PO SCH (20:17)
[2017-02-25 22:00] VITALS: BP 142/67
[2017-02-26] VITALS (7 sets, daily range): BP systolic 124–163; BP diastolic 67–85
[2017-02-26] MEDS: oxyCODONE 5MG TAB PO PRN ×2 (01:40→14:30)
[2017-02-26] MEDS: HEPARIN DRIP 25,000 UNITS in APPROPRIATE DILUENT 1 EA IV SCH ×2 (05:20→15:04)
[2017-02-26 06:34] LABS: MEAN CORPUSCULAR HEMOGLOBIN 28.2 pg (27.0-33.0); MEAN CORPUSCULAR VOLUME 88.1 fl (80.0-96.0); RED CELL DISTRIBUTION WIDTH 15.5 % (11.5-14.5); WHITE BLOOD COUNT 7.7 10^3/uL (4.0-10.0)
[2017-02-26 06:38] LABS: INR 1.31
[2017-02-26 06:52] LABS: CALCIUM LEVEL 9.6 MG/DL (8.5-10.1); CREATININE FOR GFR 1.33 MG/DL (0.70-1.30); GLOMERULAR FILTRATION RATE 59.2 (>56); POTASSIUM SERUM 4.8 MEQ/L (3.5-5.1)
[2017-02-26] MEDS: HumaLOG INSULIN (NovoLOG) PER UNIT SC SCH ×4 (08:08→20:25)
[2017-02-26] MEDS: MIRALAX *UNIT DOSE* 17GM PACKET PO SCH (09:00)
[2017-02-26] MEDS: DOCUSATE SODIUM 100 MG CAP PO SCH ×2 (09:26→20:36)
[2017-02-26] MEDS: BENZTROPINE 1 MG TAB PO SCH ×2 (09:26→20:35)
[2017-02-26] MEDS: oxyCODONE 20 MG CR TAB PO SCH ×2 (09:26→20:43)
[2017-02-26] MEDS: ENALAPRIL MALEATE 10 MG TAB PO SCH (09:27)
[2017-02-26] MEDS: MULTIVITAMINS/MINERALS THERAP 1 TAB PO SCH (09:28)
[2017-02-26] MEDS: amLODIPine 5 MG TAB PO SCH ×2 (09:28→20:35)
[2017-02-26] MEDS: ALLOPURINOL 300 MG TAB PO SCH (09:28)
[2017-02-26] MEDS: SENOKOT S TAB PO SCH ×2 (09:28→20:36)
[2017-02-26] MEDS: MAGNESIUM OXIDE 400 MG TAB (MAG-OX) PO SCH ×3 (09:28→20:36)
[2017-02-26] MEDS: CARVedilol 12.5 MG TAB PO SCH ×2 (09:28→20:37)
[2017-02-26] MEDS: AUGMENTIN 875 MG TAB PO SCH ×2 (09:29→20:36)
[2017-02-26] MEDS: buPROPion **XL** TABLET 150MG (WELLBUTRIN XL) PO SCH (09:29)
[2017-02-26] MEDS: LEVEMIR (INSULIN DETEMIR) 1 UNITS/0.01ML SC SCH ×2 (09:39→20:37)
[2017-02-26] MEDS: VITAMIN D 1,000 INTERNATIONAL UNITS TABLET PO SCH (09:39)
[2017-02-26] MEDS: PANTOPRAZOLE 40MG TAB (PROTONIX) PO SCH (09:40)
[2017-02-26] MEDS: PRIMIDONE 25MG PER 1/2 TABLET PO SCH ×2 (09:40→20:34)
[2017-02-26] MEDS: SANTYL OINT 30GM TOP SCH (11:11)
--- NOTE | 2017-02-26 14:56 | IPNPDOC ---
Date Seen The patient was seen on 02/26/17. Progress Note SUBJECTIVE: Patient is without complaints. OBJECTIVE PHYSICAL EXAMINATION: VITAL SIGNS: Please see below. GENERAL: Lying in bed comfortably HEENT: Normal CARDIOVASCULAR: Regular rate and rhythm. RESPIRATORY: Clear to auscultation bilaterally. ABDOMINAL: Soft nontender nondistended EXTREMITIES: Well perfused. Right upper extremity has minimal swelling. Left lower extremity shows good perfusion with good granulation tissue of the left foot wounds. NEUROLOGICAL: Awake alert oriented 3 PSYCHOLOGICAL: Normal LABORATORY DATA: Please see below. MICROBIOLOGY: Please see below. DVT prophylaxis ordered?: Patient currently on a heparin drip and being converted to Coumadin. ASSESSMENT AND PLAN: This is a 56-year-old male with left calcaneus osteomyelitis who underwent placement of a PICC line in the right upper extremity and developed DVT and subsequently required thrombo-lysis with angioplasty. Patient is currently on a heparin drip and being transitioned to Coumadin. PROBLEMS: 1. Left foot osteomyelitis and wounds: Is on Augmentin orally and undergoing dry foam dressings to his wounds and will follow-up in the wound care center as an outpatient. 2. Right upper extremity DVT: Patient is significantly improved after undergoing frontal lysis with angioplasty but requires long-term anticoagulation with Coumadin. He patient was on prednisone which has been stopped and he will continue on heparin drip with conversion to Coumadin. DISPOSITION: Patient will be discharged once his INR is therapeutic at 2.5-3.5. VS, I&O, 24H, [facility] Vital Signs/I&O Vital Signs Date Time Temp Pulse Resp B/P (MAP) Pulse Ox O2 Delivery O2 Flow Rate FiO2 02/26/17 14:30 16 Room Air 02/26/17 10:00 97.3 76 124/74 (91) 97 02/24/17 06:07 2.0 I&O- Last 24 Hours up to 6 AM 02/27/17 05:59 Intake Total 780 ml Output Total 1100 ml Balance -320 ml Laboratory Data 24H LABS Laboratory Tests 2 02/25/17 16:18: Bedside Glucose (Misc Panel) 160H 02/25/17 20:09: Bedside Glucose (Misc Panel) 210H 02/26/17 06:10: Prothrombin Time 16.6H, Prothromb Time International Ratio 1.31, Activated Partial Thromboplast Time 99.8H, Anion Gap 9, Glomerular Filtration Rate 59.2, Blood Urea Nitrogen 14, Creatinine 1.33H, Sodium Level 140, Potassium Level 4.8 , Chloride Level 105, Carbon Dioxide Level 26, Calcium Level 9.6, C-Reactive Protein, Quantitative 0.55H 02/26/17 11:35: Bedside Glucose (Misc Panel) 333H CBC/BMP Laboratory Tests 02/26/17 06:10 Red Blood Count 4.11 L, Mean Corpuscular Volume 88.1, Mean Corpuscular Hemoglobin 28.2, Mean Corpuscular Hemoglobin Concent 32.0, Red Cell Distribution Width 15.5 H, Calcium Level 9.6 Microbiology Microbiology 02/18/17 Blood Culture - Final, Complete NO GROWTH AFTER 5 DAYS 02/18/17 Blood Culture - Final, Complete NO GROWTH AFTER 5 DAYS 02/26/17 Stool Occult Blood (ANTOINE), Received Pending 02/25/17 Stool Occult Blood (ANTOINE) - Final, Complete 02/24/17 Stool Occult Blood (ANTOINE) - Final, Complete 02/23/17 Stool Occult Blood (ANTOINE) - Final, Complete 02/22/17 Stool Occult Blood (ANTOINE) - Final, Complete 02/20/17 Stool Occult Blood (ANTOINE) - Final, Complete 02/18/17 Stool Occult Blood (ANTOINE) - Final, Complete 02/16/17 Stool Occult Blood (ANTOINE) - Final, Complete 02/18/17 Respiratory Virus Panel (PCR) (ANTOINE) - Final, Complete 02/18/17 Gram Stain - Final, Complete 02/18/17 Wound Culture - Final, Complete Staphylococcus Aureus Streptococcus Viridans Group 02/18/17 Anaerobic Culture - Final, Complete Prevotella Intermedia Osmar Go MD Feb 26, 2017 14:56
[2017-02-26] MEDS: WARFARIN SOD 5 MG TAB PO SCH (16:02)
[2017-02-26] MEDS: AMITRIPTYLINE 25 MG TAB PO SCH (20:35)
[2017-02-26] MEDS: ATORVASTATIN 10 MG TAB PO SCH (20:35)
[2017-02-27] VITALS (7 sets, daily range): BP systolic 133–183; BP diastolic 67–86
[2017-02-27] MEDS: HEPARIN DRIP 25,000 UNITS in APPROPRIATE DILUENT 1 EA IV SCH ×3 (00:44→20:24)
[2017-02-27] MEDS: oxyCODONE 5MG TAB PO PRN ×3 (00:45→17:42)
[2017-02-27 06:33] LABS: MEAN CORPUSCULAR HEMOGLOBIN 27.8 pg (27.0-33.0); MEAN CORPUSCULAR HGB CONC 31.6 g/dl (32.0-36.5); MEAN CORPUSCULAR VOLUME 88.2 fl (80.0-96.0); RED CELL DISTRIBUTION WIDTH 15.6 % (11.5-14.5); WHITE BLOOD COUNT 6.9 10^3/uL (4.0-10.0)
[2017-02-27 06:46] LABS: INR 1.3
[2017-02-27 07:01] LABS: ANION GAP 7 MEQ/L (8-16); BLOOD UREA NITROGEN 17 MG/DL (7-18); CALCIUM LEVEL 9.5 MG/DL (8.5-10.1); CARBON DIOXIDE LEVEL 25 MEQ/L (21-32); CHLORIDE LEVEL 105 MEQ/L (98-107); CREATININE FOR GFR 1.29 MG/DL (0.70-1.30); GLOMERULAR FILTRATION RATE > 60.0 (>56); GLUCOSE, FASTING 133 MG/DL (70-105); POTASSIUM SERUM 4.7 MEQ/L (3.5-5.1); SODIUM LEVEL 137 MEQ/L (136-145)
--- NOTE | 2017-02-27 07:34 | CR ---
ADVANCED WOUND CARE CONSULTATION VIA TELEMEDICINE CONSULT REVIEWED ON: 02/25/2017 REGARDING: Advanced wound care for a right diabetic foot wound. HISTORY OF PRESENT ILLNESS: 56-year-old neuropathic diabetic male injured his left heel at the end of November 2016 when he stepped on a sharp metal object. This developed into a nonhealing wound which was treated by his central office technician. This entailed local dressing changes and a post operative boot to facilitate dressings. The wound did not improve and the patient was then hospitalized for an unrelated pain involving his right upper extremity. This was diagnosed as a deep venous thrombosis possibly secondary to a PICC line inserted for long-term IV antibiotic therapy. Additionally It was felt that the patient had thoracic outlet syndrome which may also have contributed to the venous thrombosis. Treatment was thrombectomy and anticoagulation therapy. The thrombosis recurred and required a second procedure. The patient is fully anticoagulated at this time and clinically improved. I was asked to be involved in the care of his left diabetic chronic foot wound. A recent MRI on 02/18/2017 was consistent with osteomyelitis of the left calcaneus. There is associated with a wound measuring 3.0 cm x 1.7 cm with the wound depth of 1.5 cm. On exam this wound base shows fibrin slough with underlying superficial necrotic tissue. Drainage is moderate serosanguineous without odor. Wound edges are open. There is no bone, tendon, muscle or fascia exposed noted by telemedicine examination. On the medial aspect of the left foot of the midfoot area there is a wound measuring 7.2 cm x 1.8 cm with a wound depth of 1.0 cm. This wound base shows areas of hypergranulation tissue, areas of fibrin slough and areas of superficial necrotic underlying tissue. Drainage is moderate serosanguineous without odor. No deep structures are seen and the periwound for this wound and the heel shows no evidence of necrosis, erythema or maceration. At present, the patient was treated with IV Zosyn and this has been converted to erythromycin orally. He has been seen by Dr. Ivory of infectious disease and Dr. Go of the vascular department and in the past has been seen by podiatry with Dr. Izaguirre. Wound care treatment at this time has been wet-to-dry dressings changes three times a day. There has been no recent local wound debridement and no offloading footware attempt. The patient has been out of bed and has 3+ bilateral lower extremity edema. This is a Plummer grade 3 diabetic foot ulcer with a deep wound associated with osteomyelitis of the left calcaneus. Treatment for this wound continue with antibiotic therapy per infectious disease. The patient will be scheduled to be evaluated upon discharge at our wound care center. Treatment at that time will be wound debridement with curettage removing any devascularized tissue within the wound base and removing any hypergranulation tissue to allow wound edges to begin to approximate. Wet-to-dry dressing should be discontinued as this has no placed in advance wound care therapy. This has the ill effects of damaging new cell growth within the wound base and removing any potential fibroblast formation which is necessary for initial wound healing. In place of the wet-to-dry dressings the wound will be cleansed with Vashe Wound Cleanser for 10 minutes then Santyl will be applied to the wound. This will be then covered with either a foam dressing or an OptiLock dressing depending on the amount of drainage present and secured with a Kerlix wrap. Coban wrap will then be applied. This will be utilized to control edema and to secure the dressings. Elevation of the foot of the bed should be initiated and the patient should avoid prolonged sitting as this will increase lower extremity edema. Supplemental protein and amino acids should be added. Future consideration for total contact casting for offloading of the wound should be considered once the wound has stabilized. The patient would be a candidate for hyperbaric oxygen therapy. I have discussed this case with Dr. Go the vascular surgeon involved and we discussed further evaluation for possible arterial disease. The patient' s ABIs are within normal limits at 1.2 which would make arterial occlusive disease less likely. An arterial ultrasound may be indicated prior to discharge if this is a concern. Arrangements for followup at our wound clinic are in process. A heel float boot will also be added while the patient is in bed and/or out of bed and to avoid any further trauma to the left foot and heel. Recent cultures have been reviewed and consistent with Staphylococcus aureus, Streptococcus, and Prevontella. [facility]
[2017-02-27] MEDS: HumaLOG INSULIN (NovoLOG) PER UNIT SC SCH ×4 (09:03→21:33)
[2017-02-27] MEDS: LEVEMIR (INSULIN DETEMIR) 1 UNITS/0.01ML SC SCH ×2 (09:04→21:33)
[2017-02-27] MEDS: ENALAPRIL MALEATE 10 MG TAB PO SCH (09:05)
[2017-02-27] MEDS: PRIMIDONE 25MG PER 1/2 TABLET PO SCH (09:06)
[2017-02-27] MEDS: AUGMENTIN 875 MG TAB PO SCH ×2 (09:06→21:31)
[2017-02-27] MEDS: amLODIPine 5 MG TAB PO SCH ×2 (09:06→21:32)
[2017-02-27] MEDS: oxyCODONE 20 MG CR TAB PO SCH ×2 (09:06→21:32)
[2017-02-27] MEDS: CARVedilol 12.5 MG TAB PO SCH ×2 (09:06→21:31)
[2017-02-27] MEDS: PANTOPRAZOLE 40MG TAB (PROTONIX) PO SCH (09:07)
[2017-02-27] MEDS: MULTIVITAMINS/MINERALS THERAP 1 TAB PO SCH (09:07)
[2017-02-27] MEDS: MAGNESIUM OXIDE 400 MG TAB (MAG-OX) PO SCH ×3 (09:07→21:31)
[2017-02-27] MEDS: ALLOPURINOL 300 MG TAB PO SCH (09:07)
[2017-02-27] MEDS: BENZTROPINE 1 MG TAB PO SCH ×2 (09:07→21:30)
[2017-02-27] MEDS: buPROPion **XL** TABLET 150MG (WELLBUTRIN XL) PO SCH (09:07)
[2017-02-27] MEDS: DOCUSATE SODIUM 100 MG CAP PO SCH ×2 (09:07→21:30)
[2017-02-27] MEDS: SENOKOT S TAB PO SCH ×2 (09:08→21:30)
[2017-02-27] MEDS: VITAMIN D 1,000 INTERNATIONAL UNITS TABLET PO SCH (09:08)
[2017-02-27] MEDS: SANTYL OINT 30GM TOP SCH (10:54)
[2017-02-27] MEDS: WARFARIN SOD 5 MG TAB PO SCH (16:06)
[2017-02-27] MEDS: AMITRIPTYLINE 25 MG TAB PO SCH (21:32)
[2017-02-27] MEDS: ATORVASTATIN 10 MG TAB PO SCH (21:32)
[2017-02-27] MEDS: CEPACOL LOZENGE PO PRN (21:33)
[2017-02-28] MEDS: oxyCODONE 5MG TAB PO PRN ×4 (00:25→18:50)
[2017-02-28 02:00] VITALS: BP 158/81
[2017-02-28] MEDS: HEPARIN DRIP 25,000 UNITS in APPROPRIATE DILUENT 1 EA IV SCH ×2 (05:35→16:18)
[2017-02-28 06:00] VITALS: BP 142/65
[2017-02-28 06:06] LABS: MEAN CORPUSCULAR HGB CONC 31.8 g/dl (32.0-36.5); RED CELL DISTRIBUTION WIDTH 15.4 % (11.5-14.5); WHITE BLOOD COUNT 7.7 10^3/uL (4.0-10.0)
[2017-02-28 06:15] LABS: INR 1.32
[2017-02-28 06:36] LABS: ANION GAP 5 MEQ/L (8-16); BLOOD UREA NITROGEN 21 MG/DL (7-18); CALCIUM LEVEL 9.8 MG/DL (8.5-10.1); CARBON DIOXIDE LEVEL 29 MEQ/L (21-32); CHLORIDE LEVEL 104 MEQ/L (98-107); GLOMERULAR FILTRATION RATE > 60.0 (>56); GLUCOSE, FASTING 232 MG/DL (70-105); POTASSIUM SERUM 4.7 MEQ/L (3.5-5.1); SODIUM LEVEL 138 MEQ/L (136-145)
[2017-02-28] MEDS: MIRALAX *UNIT DOSE* 17GM PACKET PO SCH ×2 (09:00→09:09)
[2017-02-28] MEDS: SENOKOT S TAB PO SCH ×2 (09:07→20:18)
[2017-02-28] MEDS: AUGMENTIN 875 MG TAB PO SCH ×2 (09:07→20:18)
[2017-02-28] MEDS: VITAMIN D 1,000 INTERNATIONAL UNITS TABLET PO SCH (09:07)
[2017-02-28] MEDS: buPROPion **XL** TABLET 150MG (WELLBUTRIN XL) PO SCH (09:08)
[2017-02-28] MEDS: BENZTROPINE 1 MG TAB PO SCH ×2 (09:08→20:18)
[2017-02-28] MEDS: MULTIVITAMINS/MINERALS THERAP 1 TAB PO SCH (09:08)
[2017-02-28] MEDS: PANTOPRAZOLE 40MG TAB (PROTONIX) PO SCH (09:08)
[2017-02-28] MEDS: DOCUSATE SODIUM 100 MG CAP PO SCH ×2 (09:09→20:18)
[2017-02-28] MEDS: amLODIPine 5 MG TAB PO SCH ×2 (09:09→20:20)
[2017-02-28] MEDS: ENALAPRIL MALEATE 10 MG TAB PO SCH (09:09)
[2017-02-28] MEDS: ALLOPURINOL 300 MG TAB PO SCH (09:10)
[2017-02-28] MEDS: MAGNESIUM OXIDE 400 MG TAB (MAG-OX) PO SCH ×3 (09:10→20:18)
[2017-02-28] MEDS: CARVedilol 12.5 MG TAB PO SCH ×2 (09:11→20:20)
[2017-02-28] MEDS: HumaLOG INSULIN (NovoLOG) PER UNIT SC SCH ×4 (09:11→20:20)
[2017-02-28] MEDS: LEVEMIR (INSULIN DETEMIR) 1 UNITS/0.01ML SC SCH ×2 (09:12→20:21)
[2017-02-28] MEDS: CEPACOL LOZENGE PO PRN (09:29)
[2017-02-28] MEDS: oxyCODONE 20 MG CR TAB PO SCH ×2 (09:29→20:19)
[2017-02-28 10:00] VITALS: BP 150/80
[2017-02-28] MEDS: SANTYL OINT 30GM TOP SCH (11:38)
[2017-02-28 14:00] VITALS: BP 158/90
[2017-02-28] MEDS: WARFARIN SOD 5 MG TAB PO SCH (16:20)
[2017-02-28 18:00] VITALS: BP 142/82
[2017-02-28] MEDS: ATORVASTATIN 10 MG TAB PO SCH (20:18)
[2017-02-28] MEDS: ACETAMINOPHEN TAB 650MG DOSE (2X325MG) PO PRN (20:18)
[2017-02-28] MEDS: AMITRIPTYLINE 25 MG TAB PO SCH (20:20)
[2017-02-28 22:00] VITALS: BP 146/79
[2017-03-01] MEDS: HEPARIN DRIP 25,000 UNITS in APPROPRIATE DILUENT 1 EA IV SCH ×3 (01:29→21:41)
[2017-03-01 02:00] VITALS: BP 132/68
[2017-03-01 06:00] VITALS: BP 135/69
[2017-03-01 06:25] LABS: INR 1.33
[2017-03-01] MEDS: HumaLOG INSULIN (NovoLOG) PER UNIT SC SCH ×4 (08:07→21:00)
[2017-03-01] MEDS: LEVEMIR (INSULIN DETEMIR) 1 UNITS/0.01ML SC SCH ×2 (08:08→21:00)
[2017-03-01] MEDS: ALLOPURINOL 300 MG TAB PO SCH (08:08)
[2017-03-01] MEDS: DOCUSATE SODIUM 100 MG CAP PO SCH ×2 (08:08→21:36)
[2017-03-01] MEDS: MULTIVITAMINS/MINERALS THERAP 1 TAB PO SCH (08:08)
[2017-03-01] MEDS: SENOKOT S TAB PO SCH ×2 (08:09→21:37)
[2017-03-01] MEDS: amLODIPine 5 MG TAB PO SCH ×2 (08:09→21:36)
[2017-03-01] MEDS: AUGMENTIN 875 MG TAB PO SCH ×2 (08:09→21:35)
[2017-03-01] MEDS: VITAMIN D 1,000 INTERNATIONAL UNITS TABLET PO SCH (08:09)
[2017-03-01] MEDS: MAGNESIUM OXIDE 400 MG TAB (MAG-OX) PO SCH ×3 (08:09→21:38)
[2017-03-01] MEDS: BENZTROPINE 1 MG TAB PO SCH ×2 (08:09→21:35)
[2017-03-01] MEDS: ENALAPRIL MALEATE 10 MG TAB PO SCH (08:10)
[2017-03-01] MEDS: PANTOPRAZOLE 40MG TAB (PROTONIX) PO SCH (08:10)
[2017-03-01] MEDS: CARVedilol 12.5 MG TAB PO SCH ×2 (08:10→21:37)
[2017-03-01] MEDS: buPROPion **XL** TABLET 150MG (WELLBUTRIN XL) PO SCH (08:10)
[2017-03-01] MEDS: oxyCODONE 20 MG CR TAB PO SCH ×2 (08:15→21:35)
[2017-03-01] MEDS: SANTYL OINT 30GM TOP SCH (08:16)
[2017-03-01 10:00] VITALS: BP 138/62
--- NOTE | 2017-03-01 11:42 | IPN ---
DATE OF SERVICE: 03/01/2017 Patient seen and examined at the bedside. Chart has been reviewed. This morning, patient has no complaints of nausea, vomiting, chest pain, pressure or tightness, shortness of breath, palpitations, lightheadedness. No issues per nursing. Patient persistently has international normalized ratio (INR) of 1.33 despite 20 mg of warfarin and heparin drip. Temperature 97.2, pulse 66, respiratory rate 18, blood pressure 135/69, 95% on room air. Generally, awake, alert, oriented times three, answering questions appropriately. No jugular venous distention or thyromegaly. Lungs are clear auscultation. No wheezing, rales or rhonchi. Heart: S1, S2. Sinus rhythm. Abdomen is obese, soft, nontender, nondistended. Positive bowel sounds. Extremities: Chronic 3+ edema. Right foot bandaged. Left foot with wound measuring 7 x 1 cm. ASSESSMENT AND PLAN: This is a 56-year-old male with history of non-insulin type 2 diabetes, hypertension, hyperlipidemia, depression anxiety, gout, neuropathy, left foot osteomyelitis, right upper extremity deep venous thrombosis (DVT), presented to the emergency room (ER), brought in by ambulance due to complaints of chest pain Patient was found to have a blood clot of right upper extremity due to a peripherally inserted central catheter (PICC) line 3 weeks ago. Started on oral anticoagulation at that time. 1 week prior, he was complaining of worsening pain in his arm. Was found to have another DVT. Was changed to Lovenox subcu and was scheduled for intervention by Dr. Go on 01/21/2017 when patient was admitted on the same day. Patient underwent right arm thrombolysis on 01/25/2017 and has been on intravenous (IV) heparin drip and warfarin 20 mg daily with goal of 2.5 to 3.5 INR. Current with INR of 1.33. Patient was found to be having drug interactions with primidone. Dr. Guevara has been consulted to decrease the dose of primidone. Patient is currently on Augmentin for 1 month. Patient follows with Dr. Knapp for hyperbaric as outpatient. Current issues are as follows: 1. Left foot osteomyelitis related to methicillin-susceptible Staphylococcus aureus (MSSA) and Group B streptococcus. Currently with plans for Augmentin 875 twice a day for 1 month. 2. History of left calcaneal osteomyelitis. MRI findings showing worsening findings. Hyperbaric treatment for calcaneal osteomyelitis as outpatient. 3. Right upper extremity DVT. On heparin and Coumadin with no significant improvement to goal INR of 2.5 to 3.5. Per my discussion with Dr. Sienna Powell, forming and assembling supervisor/oncologist, patient is most likely metabolizing the Coumadin quickly. Therefore, she would recommend a direct thrombin inhibitor such as Xarelto, which may be continued immediately after discontinuation of heparin. 4. Type 2 diabetes. Goal A1c of 7. Preprandial glucose of 90-130. Postprandial of 180. Therefore, will increase the patient's Levemir insulin to 22 units twice a day. 5. Hypertension. Stable on Vasotec and Norvasc. 6. Hyperlipidemia. On Lipitor. MTDD
[2017-03-01] MEDS: CEPACOL LOZENGE PO PRN (12:00)
[2017-03-01 14:00] VITALS: BP 150/68
[2017-03-01] MEDS: oxyCODONE 5MG TAB PO PRN (14:20)
[2017-03-01] MEDS: ACETAMINOPHEN TAB 650MG DOSE (2X325MG) PO PRN (15:06)
[2017-03-01] MEDS: WARFARIN SOD 5 MG TAB PO SCH (16:57)
[2017-03-01] MEDS: AMITRIPTYLINE 25 MG TAB PO SCH (21:34)
[2017-03-01] MEDS: ATORVASTATIN 10 MG TAB PO SCH (21:35)
[2017-03-01 22:00] VITALS: BP 150/74
[2017-03-02 02:00] VITALS: BP 142/68
[2017-03-02] MEDS: oxyCODONE 5MG TAB PO PRN ×3 (03:06→17:54)
[2017-03-02 06:00] VITALS: BP 143/72
[2017-03-02 06:41] LABS: INR 1.32
[2017-03-02] MEDS ORDERED: HEPARIN SOD (PORCINE) 5000 UNITS/ML VIAL IV ONE (07:00)
[2017-03-02 07:57] VITALS: BP 146/74
[2017-03-02] MEDS: oxyCODONE 20 MG CR TAB PO SCH ×2 (08:32→22:17)
[2017-03-02] MEDS: ALLOPURINOL 300 MG TAB PO SCH (08:32)
[2017-03-02] MEDS: MAGNESIUM OXIDE 400 MG TAB (MAG-OX) PO SCH ×3 (08:33→22:18)
[2017-03-02] MEDS: VITAMIN D 1,000 INTERNATIONAL UNITS TABLET PO SCH (08:33)
[2017-03-02] MEDS: DOCUSATE SODIUM 100 MG CAP PO SCH ×2 (08:33→22:19)
[2017-03-02] MEDS: ENALAPRIL MALEATE 10 MG TAB PO SCH (08:33)
[2017-03-02] MEDS: BENZTROPINE 1 MG TAB PO SCH ×2 (08:34→22:19)
[2017-03-02] MEDS: PANTOPRAZOLE 40MG TAB (PROTONIX) PO SCH (08:34)
[2017-03-02] MEDS: buPROPion **XL** TABLET 150MG (WELLBUTRIN XL) PO SCH (08:34)
[2017-03-02] MEDS: CARVedilol 12.5 MG TAB PO SCH ×2 (08:34→22:18)
[2017-03-02] MEDS: AUGMENTIN 875 MG TAB PO SCH ×2 (08:34→22:19)
[2017-03-02] MEDS: MULTIVITAMINS/MINERALS THERAP 1 TAB PO SCH (08:34)
[2017-03-02] MEDS: amLODIPine 5 MG TAB PO SCH ×2 (08:34→22:20)
[2017-03-02] MEDS: SANTYL OINT 30GM TOP SCH (08:34)
[2017-03-02] MEDS: SENOKOT S TAB PO SCH ×2 (08:34→22:19)
[2017-03-02] MEDS: MIRALAX *UNIT DOSE* 17GM PACKET PO SCH (08:35)
[2017-03-02] MEDS: HumaLOG INSULIN (NovoLOG) PER UNIT SC SCH ×4 (08:49→21:00)
[2017-03-02] MEDS: LEVEMIR (INSULIN DETEMIR) 1 UNITS/0.01ML SC SCH ×2 (08:49→22:16)
[2017-03-02] MEDS: HEPARIN DRIP 25,000 UNITS in APPROPRIATE DILUENT 1 EA IV SCH ×2 (13:07→22:54)
[2017-03-02 14:00] VITALS: BP 144/75
[2017-03-02] MEDS: WARFARIN SOD 5 MG TAB PO SCH (17:53)
[2017-03-02 18:00] VITALS: BP 133/70
[2017-03-02 22:00] VITALS: BP 140/69
[2017-03-02] MEDS: AMITRIPTYLINE 25 MG TAB PO SCH (22:19)
[2017-03-02] MEDS: ATORVASTATIN 10 MG TAB PO SCH (22:19)
[2017-03-03 02:00] VITALS: BP 133/67
[2017-03-03] MEDS: oxyCODONE 5MG TAB PO PRN ×4 (02:01→18:46)
[2017-03-03 06:00] VITALS: BP 132/60
[2017-03-03 07:19] LABS: INR 1.3
[2017-03-03] MEDS: LEVEMIR (INSULIN DETEMIR) 1 UNITS/0.01ML SC SCH ×2 (08:11→20:49)
[2017-03-03] MEDS: HumaLOG INSULIN (NovoLOG) PER UNIT SC SCH ×4 (08:11→20:48)
[2017-03-03] MEDS: buPROPion **XL** TABLET 150MG (WELLBUTRIN XL) PO SCH (08:12)
[2017-03-03] MEDS: oxyCODONE 20 MG CR TAB PO SCH ×2 (08:12→20:47)
[2017-03-03] MEDS: BENZTROPINE 1 MG TAB PO SCH ×2 (08:12→20:46)
[2017-03-03] MEDS: MULTIVITAMINS/MINERALS THERAP 1 TAB PO SCH (08:12)
[2017-03-03] MEDS: CARVedilol 12.5 MG TAB PO SCH ×2 (08:13→20:48)
[2017-03-03] MEDS: DOCUSATE SODIUM 100 MG CAP PO SCH ×2 (08:13→20:46)
[2017-03-03] MEDS: SENOKOT S TAB PO SCH ×2 (08:13→20:46)
[2017-03-03] MEDS: ALLOPURINOL 300 MG TAB PO SCH (08:14)
[2017-03-03] MEDS: ENALAPRIL MALEATE 10 MG TAB PO SCH (08:14)
[2017-03-03] MEDS: MAGNESIUM OXIDE 400 MG TAB (MAG-OX) PO SCH ×3 (08:14→20:46)
[2017-03-03] MEDS: SANTYL OINT 30GM TOP SCH (08:15)
[2017-03-03] MEDS: amLODIPine 5 MG TAB PO SCH ×2 (08:15→20:47)
[2017-03-03] MEDS: VITAMIN D 1,000 INTERNATIONAL UNITS TABLET PO SCH (08:29)
[2017-03-03] MEDS: PANTOPRAZOLE 40MG TAB (PROTONIX) PO SCH (08:29)
[2017-03-03] MEDS: HEPARIN DRIP 25,000 UNITS in APPROPRIATE DILUENT 1 EA IV SCH ×2 (09:21→19:38)
[2017-03-03 10:00] VITALS: BP 140/70
--- NOTE | 2017-03-03 11:42 | IPN ---
DATE: 03/03/2017 The patient seen and examined at bedside. Denies overnight complaints. Denies nausea, vomiting, fever, or chills. Vitals are reviewed. He has been afebrile. Labs are reviewed. White blood cell count is 7.7. Lower Extremity Examination: Dressing is clean, dry and intact. Coban is applied. Edema appears improved compared to last week. ASSESSMENT: 56-year-old male with osteomyelitis status post muscle debridement and six weeks of IV antibiotics. PLAN: Cam boot is dispensed. He is to ambulate in this and not the surgical shoe. Wound care per Dr. Knapp. Antibiotics have been changed by Dr. Ivory. He presently is on Augmentin. He will follow up with me one week after he is discharged.
[2017-03-03] MEDS: ACETAMINOPHEN TAB 650MG DOSE (2X325MG) PO PRN (12:45)
[2017-03-03 14:00] VITALS: BP 124/86
--- NOTE | 2017-03-03 15:04 | IPN ---
DATE: 03/03/2017 SUBJECTIVE: Patient seen and examined in the room today. The patient denies any acute complaints or acute changes. Denied any shortness of breath or chest pain. No overnight events reported. OBJECTIVE: VITAL SIGNS: Temperature is 96.7, pulse is 69, respirations 18, blood pressure 132/60, pulse oximetry is 92% on room air. GENERAL: No sign of acute distress. Alert and oriented times three. HEENT: Normocephalic, atraumatic. Extraocular motor grossly intact. CARDIOVASCULAR: Positive S1, S2, regular rate. LUNGS: Clear to auscultation bilaterally. ABDOMEN: Morbidly obese, soft, nontender, nondistended. EXTREMITIES: Positive edema bilaterally. Left foot was wrapped with dressing. LABORATORY DATA: WBC 7.7, hemoglobin 11.4, hematocrit 35.8, platelet count is 458. Sodium is 138, potassium 4.7, chloride is 104, carbon dioxide 29, BUN 21, creatinine 1.3, GFR greater than 60, fasting glucose 232. Calcium is 9.8. ASSESSMENT AND PLAN: 1. Right upper extremity deep vein thrombosis (DVT), status post venous lysis and angioplasty of the axillary and subclavian vein. Currently, the patient is on heparin drip. The patient is in the process of bridging to Coumadin; however, it is very difficult to raise the patient's INR. The case was discussed with oncologist, Dr. Sienna Powell, previously and there is a suspicion that the patient is a fast metabolizer and therefore it is very difficult to raise the patient's INR. Per patient, he believes that he may have been on Eliquis previously. It was discontinued prior to the last admission in November. However, I reached out to the patient's primary care provider, Dr. Dago Diop, who reviewed the clinical notes and it is confirmed that the patient has not been on any type of agent for anticoagulation in the past. 2. Left foot osteomyelitis secondary to methicillin sensitive Staphylococcus aureus (MSSA) and Group B streptococcus, currently on Augmentin 875 mg twice a day . Recommend total duration will be 1 month. Infectious disease, Dr. Ivory, has been consulted. We appreciate her assistance. Dr. Izaguirre is also assisting on the case. 3. Type 2 diabetes with A1/c of 7. On Levemir. On sliding scale. On consistent carbohydrate diet. 4. Hypertension. Blood pressure is in the satisfactory range. The patient is on Norvasc 5 mg by mouth twice a day, Coreg 25 mg by mouth twice a day, and Vasotec 40 mg by mouth daily. 5. Hyperlipidemia. On Lipitor. 6. Gout. On allopurinol. 7. Deep vein thrombosis (DVT) prophylaxis. The patient is on heparin drip.
[2017-03-03] MEDS: WARFARIN SOD 5 MG TAB PO SCH (16:51)
[2017-03-03 18:00] VITALS: BP 132/80
[2017-03-03] MEDS: ATORVASTATIN 10 MG TAB PO SCH (20:47)
[2017-03-03] MEDS: AMITRIPTYLINE 25 MG TAB PO SCH (20:47)
[2017-03-03 22:00] VITALS: BP 130/80
[2017-03-03] MEDS: AUGMENTIN 875 MG TAB PO SCH (23:37)
[2017-03-03] MEDS: MAGIC MOUTHWASH SUSPENSION BTL SSP PRN (23:49)
[2017-03-04 02:00] VITALS: BP 134/70
[2017-03-04] MEDS: oxyCODONE 5MG TAB PO PRN ×3 (02:00→13:37)
[2017-03-04 06:00] VITALS: BP 117/60
[2017-03-04] MEDS: HEPARIN DRIP 25,000 UNITS in APPROPRIATE DILUENT 1 EA IV SCH ×2 (06:13→16:00)
[2017-03-04] MEDS: MIRALAX *UNIT DOSE* 17GM PACKET PO SCH (08:17)
[2017-03-04] MEDS: oxyCODONE 20 MG CR TAB PO SCH ×2 (08:18→21:00)
[2017-03-04] MEDS: ENALAPRIL MALEATE 10 MG TAB PO SCH (08:18)
[2017-03-04] MEDS: LEVEMIR (INSULIN DETEMIR) 1 UNITS/0.01ML SC SCH ×2 (08:21→21:00)
[2017-03-04] MEDS: buPROPion **XL** TABLET 150MG (WELLBUTRIN XL) PO SCH (08:21)
[2017-03-04] MEDS: PANTOPRAZOLE 40MG TAB (PROTONIX) PO SCH (08:21)
[2017-03-04] MEDS: VITAMIN D 1,000 INTERNATIONAL UNITS TABLET PO SCH (08:22)
[2017-03-04] MEDS: HumaLOG INSULIN (NovoLOG) PER UNIT SC SCH ×4 (08:22→20:40)
[2017-03-04] MEDS: ALLOPURINOL 300 MG TAB PO SCH (08:23)
[2017-03-04] MEDS: MAGNESIUM OXIDE 400 MG TAB (MAG-OX) PO SCH ×3 (08:23→20:57)
[2017-03-04] MEDS: AUGMENTIN 875 MG TAB PO SCH ×2 (08:23→20:58)
[2017-03-04] MEDS: CARVedilol 12.5 MG TAB PO SCH ×2 (08:23→20:59)
[2017-03-04] MEDS: SENOKOT S TAB PO SCH ×2 (08:23→20:58)
[2017-03-04] MEDS: BENZTROPINE 1 MG TAB PO SCH ×2 (08:24→20:58)
[2017-03-04] MEDS: DOCUSATE SODIUM 100 MG CAP PO SCH ×2 (08:24→20:58)
[2017-03-04] MEDS: amLODIPine 5 MG TAB PO SCH ×2 (08:24→20:59)
[2017-03-04] MEDS: MULTIVITAMINS/MINERALS THERAP 1 TAB PO SCH (08:24)
[2017-03-04] MEDS: SANTYL OINT 30GM TOP SCH (08:25)
[2017-03-04 09:00] LABS: BASO # 0.1 10^3/uL (0.0-0.2); BASO % 1.4 % (0.0-1.0); EOS # 0.5 10^3/uL (0.0-0.50); EOS % 6.3 % (0.0-3.0); IMMATURE GRANULOCYTE % 0.8 % (0-0); LYMPH # 2.4 10^3/uL (1.5-4.5); LYMPH % 31.1 % (24.0-44.0); MEAN CORPUSCULAR HEMOGLOBIN 28.5 pg (27.0-33.0); MEAN CORPUSCULAR HGB CONC 32.4 g/dl (32.0-36.5); MONO # 0.5 10^3/uL (0.0-0.8); MONO % 6.8 % (0.0-5.0); NEUTROPHILS # 4.1 10^3/uL (1.8-7.7); NEUTROPHILS % 53.6 % (36.0-66.0); PLATELET COUNT, AUTOMATED 488 10^3/uL (150-450); RED CELL DISTRIBUTION WIDTH 15.6 % (11.5-14.5); WHITE BLOOD COUNT 7.6 10^3/uL (4.0-10.0)
[2017-03-04 09:12] LABS: INR 1.31
[2017-03-04 09:22] LABS: CALCIUM LEVEL 10.4 MG/DL (8.5-10.1); CREATININE FOR GFR 1.35 MG/DL (0.70-1.30); GLOMERULAR FILTRATION RATE 58.2 (>56); POTASSIUM SERUM 4.6 MEQ/L (3.5-5.1)
[2017-03-04 10:00] VITALS: BP 144/64
--- NOTE | 2017-03-04 13:35 | IPNPDOC ---
Subjective Date Seen The patient was seen on 03/04/17. Subjective Chief Complaint/HPI The patient is a 56-year-old male admitted with a reason for visit of Dvt,Chest Pain.. Events since last encounter Pt is seen and examed in the room today. Pt denies any shortness of breath. Denies acute pain. Pt has been walking on the hallway for exercise. Constitutional: Denies: Chills, Fever Eyes: Denies: Pain Pulmonary: Denies: Dyspnea, Cough Cardiovascular: Denies: Chest Pain, Palpitations Gastrointestinal: Denies: Nausea, Vomiting, Abdominal Pain Objective Physical Examination General Exam: Positive: Alert, Cooperative, No Acute Distress ENT Exam: Positive: Atraumatic, Mucous membr. moist/pink Neck Exam: Negative: JVD Chest Exam: Positive: Clear to auscultation, Normal air movement Heart Exam: Positive: Rate Normal, Normal S1, Normal S2 Abdomen Exam: Positive: Normal bowel sounds, Soft, Negative: Tenderness Extremity Exam: Positive: Edema, Other (LLE (foot) noted to be wrapped in surgical dressing. bilateral lower extremity swelling; right greater than left. ) Psych Exam: Positive: Oriented x 3 Assessment /Plan Problems (1) Deep vein thrombosis (DVT) of upper extremity Status: Acute Response to Treatment: Stable Problem Text: - Right upper extremity deep vein thrombosis (DVT), status post venous lysis and angioplasty of the axillary and subclavian vein. - Patient is in the process of bridging to Coumadin. However, is very difficult to raise the patient's INR. - Discussed with pt's PCP, Dr. Diop. Dr. Diop has not prescript eliquis or other anticoagulation to pt in the past. - Pt's weight is 150kg. There is no study done to test the efficacy of the new agents for people with weight greater than 120kg. - Discussed with Dr. Carrera, Hem/Onc specialist. Pt may be fast metabolizer that cause difficulty increasing the INR. - Will refer the anticoagulation adjustment to Dr. Go. (2) Osteomyelitis Status: Acute Response to Treatment: Stable Problem Text: - Left foot osteomyelitis. - Infectious specialist and Supervising Airplane Pilot have been consulted. - Culture grew MSSA and Group B streptococcus. On Augmentin 875mg BID. Recommended total of 1 months augmentin. (3) Diabetes Status: Chronic Response to Treatment: Stable Problem Text: - A1C of 7. - On levemir. On sliding scale. On consistent carbohydrate diet. (4) Hypertension Status: Chronic Response to Treatment: Stable Problem Text: - On Norvasc, Coreg and Vasotec. (5) Hyperlipidemia Status: Chronic Response to Treatment: Stable Problem Text: - On lipitor. (6) Gout Status: Chronic Response to Treatment: Stable Problem Text: - On allopurinol. Plan/VTE VTE Prophylaxis Ordered?: Yes (Heparin drip) VS, I&O, 24H, Fishbone Vital Signs/I&O Vital Signs Date Time Temp Pulse Resp B/P (MAP) Pulse Ox O2 Delivery O2 Flow Rate FiO2 03/04/17 10:00 98.2 83 18 144/64 (90) 100 Room Air I&O- Last 24 Hours up to 6 AM 03/05/17 06:00 Intake Total 720 ml Balance 720 ml Laboratory Data 24H LABS Laboratory Tests 2 03/03/17 16:55: Bedside Glucose (Misc Panel) 212H 03/03/17 19:53: Bedside Glucose (Misc Panel) 175H 03/04/17 06:00: Bedside Glucose (Misc Panel) 202H 03/04/17 06:39: Activated Partial Thromboplast Time 84.4H 03/04/17 08:42: Immature Granulocyte % (Auto) 0.8H, White Blood Count 7.6, Red Blood Count 4.35 , Hemoglobin 12.4L, Hematocrit 38.3L, Mean Corpuscular Volume 88.0, Mean Corpuscular Hemoglobin 28.5, Mean Corpuscular Hemoglobin Concent 32.4, Red Cell Distribution Width 15.6H, Platelet Count 488H, Neutrophils (%) (Auto) 53.6, Lymphocytes (%) (Auto) 31.1, Monocytes (%) (Auto) 6.8H, Eosinophils (%) (Auto) 6.3H, Basophils (%) (Auto) 1.4H, Neutrophils # (Auto) 4.1, Lymphocytes # (Auto) 2.4, Monocytes # (Auto) 0.5, Eosinophils # (Auto) 0.5, Basophils # (Auto) 0.1, Immature Granulocyte # (Auto) 0.1H, Nucleated Red Blood Cells % (auto) 0.0, Anion Gap 8, Glomerular Filtration Rate 58.2, Blood Urea Nitrogen 24H, Creatinine 1.35H, Sodium Level 138, Potassium Level 4.6, Chloride Level 105, Carbon Dioxide Level 25, Calcium Level 10.4H, C-Reactive Protein, Quantitative 0.84H 03/04/17 08:46: Prothrombin Time 16.6H, Prothromb Time International Ratio 1.31 03/04/17 11:51: Bedside Glucose (Misc Panel) 255H CBC/BMP Laboratory Tests 03/04/17 08:42 Red Blood Count 4.35, Mean Corpuscular Volume 88.0, Mean Corpuscular Hemoglobin 28.5, Mean Corpuscular Hemoglobin Concent 32.4, Red Cell Distribution Width 15.6 H, Neutrophils (%) (Auto) 53.6, Lymphocytes (%) (Auto) 31.1, Monocytes (%) (Auto) 6.8 H, Eosinophils (%) (Auto) 6.3 H, Basophils (%) (Auto) 1.4 H, Neutrophils # (Auto) 4.1, Lymphocytes # (Auto) 2.4, Monocytes # (Auto) 0.5, Eosinophils # (Auto) 0.5, Basophils # (Auto) 0.1, Calcium Level 10.4 H Microbiology Microbiology 03/03/17 Stool Occult Blood (ANTOINE) - Final, Complete 03/01/17 Stool Occult Blood (ANTOINE) - Final, Complete 02/28/17 Stool Occult Blood (ANTOINE) - Final, Complete 02/27/17 Stool Occult Blood (ANTOINE) - Final, Complete 02/26/17 Stool Occult Blood (ANTOINE) - Final, Complete 02/25/17 Stool Occult Blood (ANTOINE) - Final, Complete 02/24/17 Stool Occult Blood (ANTOINE) - Final, Complete 02/23/17 Stool Occult Blood (ANTOINE) - Final, Complete 02/22/17 Stool Occult Blood (ANTOINE) - Final, Complete KATRINA ABREU DO Mar 04, 2017 13:35
[2017-03-04 14:00] VITALS: BP 135/69
[2017-03-04] MEDS: WARFARIN SOD 5 MG TAB PO SCH (16:56)
[2017-03-04] MEDS: AMITRIPTYLINE 25 MG TAB PO SCH (20:56)
[2017-03-04] MEDS: ATORVASTATIN 10 MG TAB PO SCH (20:57)
[2017-03-04 22:00] VITALS: BP 150/78
[2017-03-05] MEDS: oxyCODONE 5MG TAB PO PRN ×4 (01:15→20:48)
[2017-03-05] MEDS: HEPARIN DRIP 25,000 UNITS in APPROPRIATE DILUENT 1 EA IV SCH ×3 (01:18→20:45)
[2017-03-05 02:00] VITALS: BP 150/78
[2017-03-05 06:00] VITALS: BP 134/74
[2017-03-05 06:23] LABS: MEAN CORPUSCULAR HEMOGLOBIN 28.6 pg (27.0-33.0); MEAN CORPUSCULAR HGB CONC 32.1 g/dl (32.0-36.5); RED CELL DISTRIBUTION WIDTH 15.7 % (11.5-14.5); WHITE BLOOD COUNT 6.8 10^3/uL (4.0-10.0)
[2017-03-05 06:31] LABS: INR 1.39
[2017-03-05 06:42] LABS: CALCIUM LEVEL 10.2 MG/DL (8.5-10.1); CREATININE FOR GFR 1.38 MG/DL (0.70-1.30); GLOMERULAR FILTRATION RATE 56.7 (>56); POTASSIUM SERUM 4.4 MEQ/L (3.5-5.1)
[2017-03-05] MEDS ORDERED: FUROSEMIDE 40 MG/4 ML VIAL (J1940) IV ONE (08:45)
[2017-03-05] MEDS: oxyCODONE 20 MG CR TAB PO SCH ×2 (09:40→20:47)
[2017-03-05] MEDS: ENALAPRIL MALEATE 10 MG TAB PO SCH (09:40)
[2017-03-05] MEDS: VITAMIN D 1,000 INTERNATIONAL UNITS TABLET PO SCH (09:41)
[2017-03-05] MEDS: amLODIPine 5 MG TAB PO SCH ×2 (09:41→20:50)
[2017-03-05] MEDS: buPROPion **XL** TABLET 150MG (WELLBUTRIN XL) PO SCH (09:42)
[2017-03-05] MEDS: SENOKOT S TAB PO SCH ×2 (09:43→20:49)
[2017-03-05] MEDS: DOCUSATE SODIUM 100 MG CAP PO SCH ×2 (09:43→20:46)
[2017-03-05] MEDS: HumaLOG INSULIN (NovoLOG) PER UNIT SC SCH ×4 (09:43→20:50)
[2017-03-05] MEDS: AUGMENTIN 875 MG TAB PO SCH ×2 (09:43→20:47)
[2017-03-05] MEDS: BENZTROPINE 1 MG TAB PO SCH ×2 (09:44→20:49)
[2017-03-05] MEDS: SANTYL OINT 30GM TOP SCH (09:44)
[2017-03-05] MEDS: MULTIVITAMINS/MINERALS THERAP 1 TAB PO SCH (09:44)
[2017-03-05] MEDS: CARVedilol 12.5 MG TAB PO SCH ×2 (09:44→20:49)
[2017-03-05] MEDS: ALLOPURINOL 300 MG TAB PO SCH (09:44)
[2017-03-05] MEDS: MAGNESIUM OXIDE 400 MG TAB (MAG-OX) PO SCH ×3 (09:44→20:48)
[2017-03-05] MEDS: PANTOPRAZOLE 40MG TAB (PROTONIX) PO SCH (09:44)
[2017-03-05] MEDS: LEVEMIR (INSULIN DETEMIR) 1 UNITS/0.01ML SC SCH ×2 (09:45→20:46)
[2017-03-05 10:00] VITALS: BP 136/78
[2017-03-05 14:00] VITALS: BP 136/63
--- NOTE | 2017-03-05 15:58 | IPNPDOC ---
Subjective Date Seen The patient was seen on 03/05/17. Subjective Chief Complaint/HPI The patient is a 56-year-old male admitted with a reason for visit of Dvt,Chest Pain.. Events since last encounter Patient has noticed increasing swelling of lower extremities. No shortness of breath. Objective Physical Examination General Exam: Positive: Alert, Cooperative, No Acute Distress ENT Exam: Positive: Atraumatic, Mucous membr. moist/pink Neck Exam: Negative: JVD Chest Exam: Positive: Clear to auscultation, Normal air movement, Rhonchi Heart Exam: Positive: Rate Normal, Normal S1, Normal S2 Abdomen Exam: Positive: Normal bowel sounds, Soft, Negative: Tenderness Extremity Exam: Positive: Edema, Other (LLE (foot) noted to be wrapped in surgical dressing. bilateral lower extremity swelling; right greater than left. ) Psych Exam: Positive: Oriented x 3 Assessment /Plan Problems (1) Deep vein thrombosis (DVT) of upper extremity Status: Acute Response to Treatment: Stable Problem Text: - Right upper extremity deep vein thrombosis (DVT), status post venous lysis and angioplasty of the axillary and subclavian vein. - Patient is in the process of bridging to Coumadin. However, is very difficult to raise the patient's INR. - Discussed with pt's PCP, Dr. Diop. Dr. Diop has not prescript eliquis or other anticoagulation to pt in the past. - Pt's weight is 150kg. There is no study done to test the efficacy of the new agents for people with weight greater than 120kg. - Discussed with Dr. Carrera, Hem/Onc specialist. Pt may be fast metabolizer that cause difficulty increasing the INR. - Will refer the anticoagulation adjustment to Dr. Go. (2) Osteomyelitis Status: Acute Response to Treatment: Stable Problem Text: - Left foot osteomyelitis. - Infectious specialist and Boat Engines Installer have been consulted. - Culture grew MSSA and Group B streptococcus. On Augmentin 875mg BID. Recommended total of 1 months augmentin. (3) Diabetes Status: Chronic Response to Treatment: Stable Problem Text: - A1C of 7. - On levemir. On sliding scale. On consistent carbohydrate diet. (4) Hypertension Status: Chronic Response to Treatment: Stable Problem Text: - On Norvasc, Coreg and Vasotec. (5) Hyperlipidemia Status: Chronic Response to Treatment: Stable Problem Text: - On lipitor. (6) Gout Status: Chronic Response to Treatment: Stable Problem Text: - On allopurinol. (7) Acute kidney injury Status: Acute Response to Treatment: Worse Problem Text: - Start having sign of fluid overload; bilateral lower extremity swelling and lung crackles. Patient has been having positive fluid balance. - No history of CHF. Echo on 01/21/17. - Give one dose of IV lasix on 03/05/17. Monitor input and output and daily weight. Plan/VTE VTE Prophylaxis Ordered?: Yes (Heparin drip) VS, I&O, 24H, Fishbone Vital Signs/I&O Vital Signs Date Time Temp Pulse Resp B/P (MAP) Pulse Ox O2 Delivery O2 Flow Rate FiO2 03/05/17 14:00 96.8 57 20 136/63 (87) 94 Room Air I&O- Last 24 Hours up to 6 AM 03/06/17 06:00 Intake Total 600 ml Output Total 1000 ml Balance -400 ml Laboratory Data 24H LABS Laboratory Tests 2 03/04/17 16:34: Bedside Glucose (Misc Panel) 231H 03/04/17 17:57: Activated Partial Thromboplast Time 100.0H 03/04/17 20:09: Bedside Glucose (Misc Panel) 209H 03/05/17 05:30: Activated Partial Thromboplast Time 114.9H, Nucleated Red Blood Cells % (auto) 0.0, Prothrombin Time 17.4H, Prothromb Time International Ratio 1.39, Anion Gap 8, Glomerular Filtration Rate 56.7, Blood Urea Nitrogen 24H, Creatinine 1.38H, Sodium Level 139, Potassium Level 4.4, Chloride Level 105, Carbon Dioxide Level 26, Calcium Level 10.2H 03/05/17 11:48: Bedside Glucose (Misc Panel) 179H CBC/BMP Laboratory Tests 03/05/17 05:30 Red Blood Count 4.09 L, Mean Corpuscular Volume 89.0, Mean Corpuscular Hemoglobin 28.6, Mean Corpuscular Hemoglobin Concent 32.1, Red Cell Distribution Width 15.7 H, Calcium Level 10.2 H Microbiology Microbiology 03/05/17 Stool Occult Blood (ANTOINE) - Final, Complete 03/04/17 Stool Occult Blood (ANTOINE) - Final, Complete 03/03/17 Stool Occult Blood (ANTOINE) - Final, Complete 03/01/17 Stool Occult Blood (ANTOINE) - Final, Complete 02/28/17 Stool Occult Blood (ANTOINE) - Final, Complete 02/27/17 Stool Occult Blood (ANTOINE) - Final, Complete 02/26/17 Stool Occult Blood (ANTOINE) - Final, Complete 02/25/17 Stool Occult Blood (ANTOINE) - Final, Complete 02/24/17 Stool Occult Blood (ANTOINE) - Final, Complete 02/23/17 Stool Occult Blood (ANTOINE) - Final, Complete KATRINA ABREU DO Mar 05, 2017 15:58
[2017-03-05] MEDS: WARFARIN SOD 5 MG TAB PO SCH (16:14)
[2017-03-05 20:10] VITALS: BP 134/71
[2017-03-05] MEDS: ATORVASTATIN 10 MG TAB PO SCH (20:49)
[2017-03-05] MEDS: AMITRIPTYLINE 25 MG TAB PO SCH (20:49)
[2017-03-06] MEDS: oxyCODONE 5MG TAB PO PRN ×4 (01:13→17:19)
[2017-03-06 01:55] VITALS: BP 131/65
[2017-03-06 05:05] VITALS: BP 137/72
[2017-03-06] MEDS: HEPARIN DRIP 25,000 UNITS in APPROPRIATE DILUENT 1 EA IV SCH ×2 (06:35→16:26)
[2017-03-06 06:48] LABS: MEAN CORPUSCULAR HEMOGLOBIN 28.1 pg (27.0-33.0); MEAN CORPUSCULAR HGB CONC 31.9 g/dl (32.0-36.5); MEAN CORPUSCULAR VOLUME 88.1 fl (80.0-96.0); RED CELL DISTRIBUTION WIDTH 15.6 % (11.5-14.5); WHITE BLOOD COUNT 7.5 10^3/uL (4.0-10.0)
[2017-03-06 07:00] LABS: CALCIUM LEVEL 10.2 MG/DL (8.5-10.1); CREATININE FOR GFR 1.52 MG/DL (0.70-1.30); GLOMERULAR FILTRATION RATE 50.8 (>56); INR 1.51; POTASSIUM SERUM 4.5 MEQ/L (3.5-5.1)
[2017-03-06] MEDS: oxyCODONE 20 MG CR TAB PO SCH ×2 (08:36→20:45)
[2017-03-06] MEDS: HumaLOG INSULIN (NovoLOG) PER UNIT SC SCH ×4 (08:36→20:29)
[2017-03-06] MEDS: VITAMIN D 1,000 INTERNATIONAL UNITS TABLET PO SCH (08:36)
[2017-03-06] MEDS: PANTOPRAZOLE 40MG TAB (PROTONIX) PO SCH (08:37)
[2017-03-06] MEDS: buPROPion **XL** TABLET 150MG (WELLBUTRIN XL) PO SCH (08:37)
[2017-03-06] MEDS: ENALAPRIL MALEATE 10 MG TAB PO SCH (08:37)
[2017-03-06] MEDS: AUGMENTIN 875 MG TAB PO SCH ×2 (08:37→20:40)
[2017-03-06] MEDS: MAGNESIUM OXIDE 400 MG TAB (MAG-OX) PO SCH ×3 (08:37→20:40)
[2017-03-06] MEDS: MULTIVITAMINS/MINERALS THERAP 1 TAB PO SCH (08:38)
[2017-03-06] MEDS: BENZTROPINE 1 MG TAB PO SCH ×2 (08:38→20:40)
[2017-03-06] MEDS: ALLOPURINOL 300 MG TAB PO SCH (08:38)
[2017-03-06] MEDS: DOCUSATE SODIUM 100 MG CAP PO SCH ×2 (08:38→20:40)
[2017-03-06] MEDS: amLODIPine 5 MG TAB PO SCH ×2 (08:38→20:39)
[2017-03-06] MEDS: SENOKOT S TAB PO SCH ×2 (08:38→20:40)
[2017-03-06] MEDS: SANTYL OINT 30GM TOP SCH (08:39)
[2017-03-06] MEDS: CARVedilol 12.5 MG TAB PO SCH ×2 (08:39→20:40)
[2017-03-06] MEDS: LEVEMIR (INSULIN DETEMIR) 1 UNITS/0.01ML SC SCH ×2 (08:39→20:41)
[2017-03-06] MEDS ORDERED: FUROSEMIDE 40 MG/4 ML VIAL (J1940) IV SCH (09:00)
[2017-03-06] MEDS: MIRALAX *UNIT DOSE* 17GM PACKET PO SCH (09:00)
[2017-03-06] MEDS: FUROSEMIDE 40 MG TAB PO SCH ×2 (10:52→17:20)
--- NOTE | 2017-03-06 15:06 | IPNPDOC ---
Subjective Date Seen The patient was seen on 03/06/17. Subjective Chief Complaint/HPI The patient is a 56-year-old male admitted with a reason for visit of Dvt,Chest Pain.. Events since last encounter Pt is complaining about swelling of left lower extremity. No shortness of breath. Objective Physical Examination General Exam: Positive: Alert, Cooperative, No Acute Distress ENT Exam: Positive: Atraumatic, Mucous membr. moist/pink Neck Exam: Negative: JVD Chest Exam: Positive: Clear to auscultation, Normal air movement, Rhonchi Heart Exam: Positive: Rate Normal, Normal S1, Normal S2 Abdomen Exam: Positive: Normal bowel sounds, Soft, Negative: Tenderness Extremity Exam: Positive: Edema, Other (LLE (foot) noted to be wrapped in surgical dressing. bilateral lower extremity swelling; right greater than left. ) Psych Exam: Positive: Oriented x 3 Assessment /Plan Problems (1) Acute kidney injury Status: Acute Response to Treatment: Worse Problem Text: - Start having sign of fluid overload; bilateral lower extremity swelling and lung crackles. Patient has been having positive fluid balance. - No history of CHF. Echo on 01/21/17. - Give one dose of IV lasix on 03/05/17. No negative fluid balance. - Increase lasix frequency on 03/06/17. Pt has difficulty IV access. Will try PO Lasix 40 Q8H with holding parameter. (2) Deep vein thrombosis (DVT) of upper extremity Status: Acute Response to Treatment: Stable Problem Text: - Right upper extremity deep vein thrombosis (DVT), status post venous lysis and angioplasty of the axillary and subclavian vein. - Patient is in the process of bridging to Coumadin. However, is very difficult to raise the patient's INR. - Discussed with pt's PCP, Dr. Diop. Dr. Diop has not prescript eliquis or other anticoagulation to pt in the past. - Pt's weight is 150kg. There is no study done to test the efficacy of the new agents for people with weight greater than 120kg. - Discussed with Dr. Carrera, Hem/Onc specialist. Pt may be fast metabolizer that cause difficulty increasing the INR. - Will refer the anticoagulation adjustment to Dr. Go. (3) Osteomyelitis Status: Acute Response to Treatment: Stable Problem Text: - Left foot osteomyelitis. - Infectious specialist and Education Program Associate have been consulted. - Culture grew MSSA and Group B streptococcus. On Augmentin 875mg BID. Recommended total of 1 months augmentin. (4) Diabetes Status: Chronic Response to Treatment: Stable Problem Text: - A1C of 7. - On levemir. On sliding scale. On consistent carbohydrate diet. (5) Hypertension Status: Chronic Response to Treatment: Stable Problem Text: - On Norvasc, Coreg and Vasotec. (6) Hyperlipidemia Status: Chronic Response to Treatment: Stable Problem Text: - On lipitor. (7) Gout Status: Chronic Response to Treatment: Stable Problem Text: - On allopurinol. Plan/VTE VTE Prophylaxis Ordered?: Yes (Heparin drip) VS, I&O, 24H, Fishbone Vital Signs/I&O Vital Signs Date Time Temp Pulse Resp B/P (MAP) Pulse Ox O2 Delivery O2 Flow Rate FiO2 03/06/17 14:00 20 03/06/17 08:38 80 03/06/17 08:37 161/78 03/06/17 08:35 Room Air 03/06/17 05:05 97.6 92 I&O- Last 24 Hours up to 6 AM 03/07/17 06:00 Intake Total 360 ml Balance 360 ml Laboratory Data 24H LABS Laboratory Tests 2 03/05/17 16:39: Bedside Glucose (Misc Panel) 223H 03/05/17 18:12: Activated Partial Thromboplast Time 104.6H 03/05/17 20:12: Bedside Glucose (Misc Panel) 179H 03/06/17 06:09: Activated Partial Thromboplast Time 116.7H, Nucleated Red Blood Cells % (auto) 0.0, Prothrombin Time 18.6H, Prothromb Time International Ratio 1.51, Anion Gap 6L, Glomerular Filtration Rate 50.8L, Blood Urea Nitrogen 27H, Creatinine 1.52H , Sodium Level 139, Potassium Level 4.5, Chloride Level 105, Carbon Dioxide Level 28, Calcium Level 10.2H CBC/BMP Laboratory Tests 03/06/17 06:09 Red Blood Count 4.45, Mean Corpuscular Volume 88.1, Mean Corpuscular Hemoglobin 28.1, Mean Corpuscular Hemoglobin Concent 31.9 L, Red Cell Distribution Width 15.6 H, Calcium Level 10.2 H Microbiology Microbiology 03/05/17 Stool Occult Blood (ANTOINE) - Final, Complete 03/04/17 Stool Occult Blood (ANTOINE) - Final, Complete 03/03/17 Stool Occult Blood (ANTOINE) - Final, Complete 03/01/17 Stool Occult Blood (ANTOINE) - Final, Complete 02/28/17 Stool Occult Blood (ANTOINE) - Final, Complete 02/27/17 Stool Occult Blood (ANTOINE) - Final, Complete 02/26/17 Stool Occult Blood (ANTOINE) - Final, Complete 02/25/17 Stool Occult Blood (ANTOINE) - Final, Complete 02/24/17 Stool Occult Blood (ANTOINE) - Final, Complete KATRINA ABREU DO Mar 06, 2017 15:06
[2017-03-06] MEDS: WARFARIN SOD 5 MG TAB PO SCH (17:20)
[2017-03-06] MEDS: MAGIC MOUTHWASH SUSPENSION BTL SSP PRN (17:21)
[2017-03-06 18:00] VITALS: BP 146/72
[2017-03-06 19:55] VITALS: BP 130/69
[2017-03-06] MEDS: ATORVASTATIN 10 MG TAB PO SCH (20:39)
[2017-03-06] MEDS: AMITRIPTYLINE 25 MG TAB PO SCH (20:39)
[2017-03-07 00:30] VITALS: BP 137/72
[2017-03-07] MEDS: FUROSEMIDE 40 MG TAB PO SCH ×3 (00:47→16:20)
[2017-03-07] MEDS: oxyCODONE 5MG TAB PO PRN ×4 (00:52→17:54)
[2017-03-07] MEDS: HEPARIN DRIP 25,000 UNITS in APPROPRIATE DILUENT 1 EA IV SCH ×3 (02:48→21:24)
[2017-03-07 05:05] VITALS: BP 139/80
[2017-03-07] MEDS: ACETAMINOPHEN TAB 650MG DOSE (2X325MG) PO PRN ×2 (05:31→13:11)
[2017-03-07 05:56] LABS: MEAN CORPUSCULAR HEMOGLOBIN 28.2 pg (27.0-33.0); RED CELL DISTRIBUTION WIDTH 15.6 % (11.5-14.5)
[2017-03-07 06:03] LABS: INR 1.59
[2017-03-07 06:14] LABS: CALCIUM LEVEL 11.2 MG/DL (8.5-10.1); CREATININE FOR GFR 1.74 MG/DL (0.70-1.30); GLOMERULAR FILTRATION RATE 43.4 (>56); POTASSIUM SERUM 4.3 MEQ/L (3.5-5.1)
[2017-03-07 10:00] VITALS: BP 132/80
[2017-03-07] MEDS: LEVEMIR (INSULIN DETEMIR) 1 UNITS/0.01ML SC SCH ×2 (10:08→20:53)
[2017-03-07] MEDS: HumaLOG INSULIN (NovoLOG) PER UNIT SC SCH ×4 (10:09→20:55)
[2017-03-07] MEDS: oxyCODONE 20 MG CR TAB PO SCH ×2 (10:09→21:00)
[2017-03-07] MEDS: ENALAPRIL MALEATE 10 MG TAB PO SCH (10:10)
[2017-03-07] MEDS: buPROPion **XL** TABLET 150MG (WELLBUTRIN XL) PO SCH (10:11)
[2017-03-07] MEDS: VITAMIN D 1,000 INTERNATIONAL UNITS TABLET PO SCH (10:11)
[2017-03-07] MEDS: ALLOPURINOL 300 MG TAB PO SCH (10:11)
[2017-03-07] MEDS: BENZTROPINE 1 MG TAB PO SCH ×2 (10:11→20:54)
[2017-03-07] MEDS: CARVedilol 12.5 MG TAB PO SCH ×2 (10:12→20:55)
[2017-03-07] MEDS: PANTOPRAZOLE 40MG TAB (PROTONIX) PO SCH (10:12)
[2017-03-07] MEDS: MULTIVITAMINS/MINERALS THERAP 1 TAB PO SCH (10:12)
[2017-03-07] MEDS: SENOKOT S TAB PO SCH ×2 (10:13→20:53)
[2017-03-07] MEDS: DOCUSATE SODIUM 100 MG CAP PO SCH ×2 (10:13→20:55)
[2017-03-07] MEDS: amLODIPine 5 MG TAB PO SCH ×2 (10:13→20:54)
[2017-03-07] MEDS: MAGNESIUM OXIDE 400 MG TAB (MAG-OX) PO SCH ×3 (10:13→20:54)
[2017-03-07] MEDS: AUGMENTIN 875 MG TAB PO SCH ×2 (10:14→20:53)
[2017-03-07] MEDS: SANTYL OINT 30GM TOP SCH (10:14)
[2017-03-07 14:00] VITALS: BP 127/73
[2017-03-07] MEDS: FAMOTIDINE 20 MG TAB PO SCH ×2 (14:26→20:55)
--- NOTE | 2017-03-07 14:32 | IPNPDOC ---
Subjective Date Seen The patient was seen on 03/07/17. Subjective Chief Complaint/HPI The patient is a 56-year-old male admitted with a reason for visit of Dvt,Chest Pain.. Events since last encounter Pt still complains about the swelling of posterior left leg. No difficulty breathing. No acute change. Objective Physical Examination General Exam: Positive: Alert, Cooperative, No Acute Distress ENT Exam: Positive: Atraumatic, Mucous membr. moist/pink Neck Exam: Negative: JVD Chest Exam: Positive: Clear to auscultation, Normal air movement Heart Exam: Positive: Rate Normal, Normal S1, Normal S2 Abdomen Exam: Positive: Normal bowel sounds, Soft, Negative: Tenderness Extremity Exam: Positive: Edema, Other (LLE (foot) noted to be wrapped in surgical dressing. bilateral lower extremity swelling; right greater than left. ) Psych Exam: Positive: Oriented x 3 Assessment /Plan Problems (1) Acute kidney injury Status: Acute Response to Treatment: Worse Problem Text: - Patient has been having positive fluid balance. - No history of CHF. Echo on 01/21/17. - Give one dose of IV lasix on 03/05/17. No negative fluid balance. - Increase lasix frequency on 03/06/17. Pt has difficulty IV access. Will try PO Lasix 40 Q8H with holding parameter. - Renal function continue to decrease. Consulted nephrology. (2) Deep vein thrombosis (DVT) of upper extremity Status: Acute Response to Treatment: Stable Problem Text: - Right upper extremity deep vein thrombosis (DVT), status post venous lysis and angioplasty of the axillary and subclavian vein. - Patient is in the process of bridging to Coumadin. However, is very difficult to raise the patient's INR. - Discussed with pt's PCP, Dr. Diop. Dr. Diop has not prescript eliquis or other anticoagulation to pt in the past. - Pt's weight is 150kg. There is no study done to test the efficacy of the new agents for people with weight greater than 120kg. - Discussed with Dr. Carrera, Hem/Onc specialist. Pt may be fast metabolizer that cause difficulty increasing the INR. - Will refer the anticoagulation adjustment to Dr. Go. (3) Osteomyelitis Status: Acute Response to Treatment: Stable Problem Text: - Left foot osteomyelitis. - Infectious specialist and Nurse Behavioral Health Care have been consulted. - Culture grew MSSA and Group B streptococcus. On Augmentin 875mg BID. Recommended total of 1 months augmentin. (4) Diabetes Status: Chronic Response to Treatment: Stable Problem Text: - A1C of 7. - On levemir. On sliding scale. On consistent carbohydrate diet. (5) Hypertension Status: Chronic Response to Treatment: Stable Problem Text: - On Norvasc, Coreg and Vasotec. (6) Hyperlipidemia Status: Chronic Response to Treatment: Stable Problem Text: - On lipitor. (7) Gout Status: Chronic Response to Treatment: Stable Problem Text: - On allopurinol. Plan/VTE VTE Prophylaxis Ordered?: Yes (Heparin drip) VS, I&O, 24H, Fishbone Vital Signs/I&O Vital Signs Date Time Temp Pulse Resp B/P (MAP) Pulse Ox O2 Delivery O2 Flow Rate FiO2 03/07/17 13:38 16 03/07/17 10:13 71 139/80 03/07/17 10:00 96.5 95 Room Air I&O- Last 24 Hours up to 6 AM 03/08/17 05:59 Intake Total 720 ml Output Total 1280 ml Balance -560 ml Laboratory Data 24H LABS Laboratory Tests 2 03/06/17 18:02: Activated Partial Thromboplast Time 82.0H 03/07/17 05:22: Activated Partial Thromboplast Time 111.1H, Nucleated Red Blood Cells % (auto) 0.0, Prothrombin Time 19.4H, Prothromb Time International Ratio 1.59, Anion Gap 10, Glomerular Filtration Rate 43.4L, Blood Urea Nitrogen 33H, Creatinine 1.74H , Sodium Level 140, Potassium Level 4.3, Chloride Level 102, Carbon Dioxide Level 28, Calcium Level 11.2H 03/07/17 11:35: Bedside Glucose (Misc Panel) 289H CBC/BMP Laboratory Tests 03/07/17 05:22 Red Blood Count 4.65, Mean Corpuscular Volume 88.0, Mean Corpuscular Hemoglobin 28.2, Mean Corpuscular Hemoglobin Concent 32.0, Red Cell Distribution Width 15.6 H, Calcium Level 11.2 H Microbiology Microbiology 03/07/17 Stool Occult Blood (ANTOINE) - Final, Complete 03/05/17 Stool Occult Blood (ANTOINE) - Final, Complete 03/04/17 Stool Occult Blood (ANTOINE) - Final, Complete 03/03/17 Stool Occult Blood (ANTOINE) - Final, Complete 03/01/17 Stool Occult Blood (ANTOINE) - Final, Complete 02/28/17 Stool Occult Blood (ANTONIE) - Final, Complete 02/27/17 Stool Occult Blood (ANTOINE) - Final, Complete 02/26/17 Stool Occult Blood (ANTOINE) - Final, Complete 02/25/17 Stool Occult Blood (ANTOINE) - Final, Complete KATRINA ABREU DO Mar 07, 2017 14:32
[2017-03-07] MEDS: **hydrALAZINE HCL** 25 MG TAB PO SCH ×2 (16:21→20:54)
[2017-03-07] MEDS: WARFARIN SOD 5 MG TAB PO SCH (16:22)
[2017-03-07] MEDS: AMITRIPTYLINE 25 MG TAB PO SCH (20:53)
[2017-03-07] MEDS: ATORVASTATIN 10 MG TAB PO SCH (20:55)
[2017-03-07 22:00] VITALS: BP 124/57
--- NOTE | 2017-03-07 23:21 | CR ---
DATE OF CONSULTATION: 03/07/2017 REQUESTING PHYSICIAN: Nichole Martínez DO. REASON FOR CONSULTATION: Acute renal failure. HISTORY OF PRESENT ILLNESS: Mr. Herrera is a 56-year-old male who was admitted to [facility] on January 20 due to chest pain. He had a complicated hospitalization due to recurrent deep venous thrombosis (DVT) in his right arm. He also has history of diabetic foot ulcer on his left foot. He was initially treated with intravenous vancomycin for six weeks which was stopped in early January sometime; however, he received further vancomycin up until end january. On February 21, his vancomycin level was 18.2. Early February vancomycin was stopped and then he has been on Zosyn which has been switched to oral Augmentin. The patient underwent thrombolysis procedure more than once due to recurrent deep venous thrombosis (DVT). He is anticoagulated now. His left foot wound and osteomyelitis is chronic and being treated. He has been seen by advanced wound care clinic and podiatry. The patient has known history of diabetes, hypertension, dyslipidemia, gout, anxiety, obesity and has developed acute kidney injury with creatinine up to 1.74 today. His calcium level is 11.2. He has been treated with Lasix due to significant peripheral edema. A nephrology consultation was requested today and the patient is seen this morning. PAST MEDICAL AND SURGICAL HISTORY: Significant for 1. History of longstanding diabetes complicated with diabetic foot ulcer on left heel. 2. Hypertension. 3. Gout. 4. Dyslipidemia. 5. Recurrent DVT in right upper extremity. 6. Diabetic neuropathy. 7. Anxiety. 8. Osteomyelitis of left foot. Past surgical history is significant for right toe amputation, right total knee replacement and debridement of left foot wound. He also had thrombolysis of right upper extremity DVT. MEDICATIONS: His medications currently include - furosemide 40 mg every eight hours - Augmentin 875 mg twice a day - Levemir insulin 22 units twice a day - Cepacol lozenges as needed for sore throat - Cogentin 1 mg twice a day - heparin drip - Carvedilol 25 mg twice a day - oxycodone 10 mg every four hours as needed for pain - magnesium oxide 800 mg three times a day - Vasotec 40 mg daily - allopurinol 300 mg daily - Wellbutrin XL 150 mg daily - vitamin D 5000 units daily - pantoprazole 40 mg daily - multivitamin one tablet daily - MiraLax one packet every 48 hours - OxyContin 60 mg twice a day - Humalog insulin per sliding scale - Zofran 4 mg every six hours as needed for nausea - amitriptyline 25 mg at bedtime - amlodipine 5 mg twice a day - atorvastatin 10 mg daily - Senokot one tablet twice a day - Colace 100 mg twice a day ALLERGIES: The patient has allergy to IODINE. PERSONAL AND SOCIAL HISTORY: He quit smoking about three years ago. He has history of occasional marijuana use and social alcohol use. He lives alone with a service dog. 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 FAMILY HISTORY: Negative for end-stage renal disease. REVIEW OF SYSTEMS: The patient denies any fever or chills. Ears, nose and throat are unremarkable. Cardiovascular system negative for chest pain at present, though his chief complaint on admission was chest pain. He denies any dyspnea or palpitation. He does have peripheral edema. Respiratory system is negative for cough or hemoptysis. Gastrointestinal (GI) system is negative for nausea, vomiting or diarrhea. Genitourinary () system is negative for dysuria or hematuria. He has remote history of kidney stones with last stone about 10 years ago. Musculoskeletal system is significant for lower extremity edema and a nonhealing ulcer on left foot. Neurological system is significant for peripheral neuropathy. Endocrine system is significant for type 2 diabetes. No known history of thyroid problems. Hematological system is significant for anticoagulation due to recurrent deep venous thrombosis (DVT) in right upper extremity which was initially related to peripherally inserted central catheter (PICC) line placement. Psychosocial system is significant for depression and anxiety. Skin is significant for a nonhealing ulcer on left foot with chronic stasis. PHYSICAL EXAMINATION: The patient is sitting in the recliner chair at the time of my visit. He is not on any acute distress. VITAL SIGNS: Temperature 97.5 degrees Fahrenheit, heart rate 78 per minute and respiratory rate 18 per minute. Blood pressure 127/72 mmHg and oxygen saturation 93% on room air. Intake and output records show a total intake of 1735 and output 2490 mL during the last 24 hours. Cumulative intake and output since admission is positive significantly according to the records for about 32 liters. He weighed 140.4 kg today while his admission weight was about 143 kg. HEAD/NECK: His head is atraumatic. Neck veins are difficult to be assessed. Ears, nose and throat are unremarkable. CARDIAC: Heart sounds are regular and distant. RESPIRATORY: Lungs with good bilateral air entry and no wheezing or rales. ABDOMEN: Obese, soft and nontender. Bowel sounds are audible. EXTREMITIES: Have no cyanosis or clubbing. He has foot brace on the left lower extremity. There is peripheral edema on both lower extremities. NEUROLOGIC: He is awake, alert and oriented times three. LABORATORY DATA: Today's labs show sodium 140 and potassium 4.3, BUN 33, creatinine 1.74, glucose 245 and calcium 11.2. WBC count is 8.0, hemoglobin 13.1 and hematocrit 40.9. On January 24, his BUN was only 12 and creatinine 1.18. That is about his baseline kidney function. Last vancomycin level was done on February 21 and was 18.2. Urinalysis done on February 19 was negative for protein or blood. Immunology showed ANGELINA screen negative, ANCA negative, SS-A/RO antibody negative, anticardiolipin IgG, IgA and IgM all negative. IMAGING: He had multiple imaging studies including vascular ultrasound for left lower extremity performed on February 20 which was negative for DVT, but he had an enlarged left inguinal lymph nodes. Left foot MRI done on February 18 showed large ulcer at the plantar aspect of foot with diffuse subcutaneous swelling. Extensive osteomyelitis involving the calcaneus was also noticed. Moderate-sized ankle joint effusion was also noticed. PROBLEMS: 1. Acute renal failure. The patient has been on various antibiotics including a prolonged course of intravenous vancomycin. His vancomycin has now been stopped. It is likely that he developed some nephrotoxicity from more than six-week course of intravenous vancomycin, though his vancomycin levels were mostly within therapeutic range. He has also been receiving Lasix with a negative fluid balance recently for peripheral edema. His volume status is very difficult to be assessed clinically. He still has some peripheral edema. He does have history of kidney stones in the remote past. We will get a renal ultrasound to assess the kidney size and to rule out any possibility of hydronephrosis. I will stop his angiotension-converting enzyme (RUPAL) inhibitor at least temporarily due to worsening kidney function. Most likely will have to cut down his Lasix dose to 40 mg once or twice a day and may even need to be stopped if his kidney function continues to worsen. 2. Hypercalcemia. The patient has been on vitamin D 5000 units daily and he is also being diuresed. I am certainly stopping his vitamin D and will also cut down the Lasix dose to 40 mg just once a day. We will monitor his calcium level and kidney function on daily basis. We will check his 25 hydroxy vitamin D level. 3. Gout. At this point the patient is asymptomatic. However, he is being diuresed. He continues with allopurinol 300 mg daily. A uric acid level will be checked tomorrow morning. 4. Hypertension. His blood pressure is well controlled. However, his RUPAL inhibitor is being stopped. He will continue with calcium channel catalina and beta catalina. I will add hydralazine 25 mg three times a day for blood pressure control. We will make further adjustments as needed. Thank you for involving me in the care of Mr. Herrera. I will follow him along with you. TANNER
[2017-03-08] MEDS: oxyCODONE 5MG TAB PO PRN ×4 (01:38→17:03)
[2017-03-08 06:00] VITALS: BP 107/83
[2017-03-08 06:02] LABS: MEAN CORPUSCULAR HGB CONC 31.8 g/dl (32.0-36.5); MEAN CORPUSCULAR VOLUME 88.2 fl (80.0-96.0); RED CELL DISTRIBUTION WIDTH 15.3 % (11.5-14.5)
[2017-03-08 06:13] LABS: INR 1.77
[2017-03-08 06:25] LABS: CALCIUM LEVEL 9.3 MG/DL (8.5-10.1); CREATININE FOR GFR 2.05 MG/DL (0.70-1.30); GLOMERULAR FILTRATION RATE 35.9 (>56); URIC ACID 7.3 MG/DL (3.5-7.2); VANCOMYCIN RANDOM 0.9 UG/ML
[2017-03-08] MEDS: oxyCODONE 20 MG CR TAB PO SCH ×2 (08:13→20:59)
[2017-03-08] MEDS: CARVedilol 12.5 MG TAB PO SCH ×2 (08:14→20:57)
[2017-03-08] MEDS: **hydrALAZINE HCL** 25 MG TAB PO SCH ×4 (08:15→20:36)
[2017-03-08] MEDS: SENOKOT S TAB PO SCH ×2 (08:15→20:57)
[2017-03-08] MEDS: ALLOPURINOL 300 MG TAB PO SCH (08:16)
[2017-03-08] MEDS: buPROPion **XL** TABLET 150MG (WELLBUTRIN XL) PO SCH (08:16)
[2017-03-08] MEDS: AUGMENTIN 875 MG TAB PO SCH ×2 (08:16→20:57)
[2017-03-08] MEDS: MAGNESIUM OXIDE 400 MG TAB (MAG-OX) PO SCH ×3 (08:16→20:54)
[2017-03-08] MEDS: BENZTROPINE 1 MG TAB PO SCH ×2 (08:16→20:54)
[2017-03-08] MEDS: MULTIVITAMINS/MINERALS THERAP 1 TAB PO SCH (08:16)
[2017-03-08] MEDS: FAMOTIDINE 20 MG TAB PO SCH ×2 (08:16→20:55)
[2017-03-08] MEDS: DOCUSATE SODIUM 100 MG CAP PO SCH ×2 (08:16→20:57)
[2017-03-08] MEDS: amLODIPine 5 MG TAB PO SCH ×2 (08:17→20:57)
[2017-03-08] MEDS: HumaLOG INSULIN (NovoLOG) PER UNIT SC SCH ×4 (08:19→20:37)
[2017-03-08] MEDS: LEVEMIR (INSULIN DETEMIR) 1 UNITS/0.01ML SC SCH ×2 (08:19→20:58)
[2017-03-08] MEDS: HEPARIN DRIP 25,000 UNITS in APPROPRIATE DILUENT 1 EA IV SCH ×2 (08:21→19:21)
[2017-03-08] MEDS: MIRALAX *UNIT DOSE* 17GM PACKET PO SCH (09:00)
[2017-03-08] MEDS ORDERED: FUROSEMIDE 40 MG TAB PO SCH (09:00)
[2017-03-08 10:00] VITALS: BP 123/85
--- NOTE | 2017-03-08 11:30 | REP ---
Urinary tract sonography: History: Acute renal failure. Findings: Scanning through the level of the urinary bladder is unremarkable. Renal cortical echogenicity pattern is normal and contours are smooth bilaterally. The right kidney measures 11.8 x 5.3 x 6.2 cm. Left renal dimensions are 12.3 x 5.3 x 6.1 cm. There is a 2.2 x 1.7 x 1.6 cm cyst in the upper pole of the right kidney. Findings are unchanged from a comparison sonogram December 15, 2016. No hydronephrosis is seen. No mass or calculus is observed. Impression: Small cyst upper pole right kidney again seen. No hydronephrosis. Otherwise negative. Signed by Wolf Chris MD 03/08/2017 09:37 A
[2017-03-08] MEDS: SANTYL OINT 30GM TOP SCH (13:28)
[2017-03-08 14:00] VITALS: BP 123/62
--- NOTE | 2017-03-08 15:45 | IPNPDOC ---
Subjective Date Seen The patient was seen on 03/08/17. Subjective Chief Complaint/HPI The patient is a 56-year-old male admitted with a reason for visit of Dvt,Chest Pain.. Events since last encounter Pt is seen and examed in the room today. Pt denies any acute change. Denies shortness of breath. Denies chest pain Objective Physical Examination General Exam: Positive: Alert, Cooperative, No Acute Distress ENT Exam: Positive: Atraumatic, Mucous membr. moist/pink Neck Exam: Negative: JVD Chest Exam: Positive: Clear to auscultation, Normal air movement Heart Exam: Positive: Rate Normal, Normal S1, Normal S2 Abdomen Exam: Positive: Normal bowel sounds, Soft, Negative: Tenderness Extremity Exam: Positive: Edema, Other (LLE (foot) noted to be wrapped in surgical dressing. Swelling noted on posterior left lower extremity) Psych Exam: Positive: Oriented x 3 Assessment /Plan Problems (1) Acute kidney injury Status: Acute Response to Treatment: Worse Problem Text: - Fluid balance have reviewed. - No history of CHF. Echo on 01/21/17. - Renal function continue to decrease. Consulted nephrology. (2) Deep vein thrombosis (DVT) of upper extremity Status: Acute Response to Treatment: Stable Problem Text: - Right upper extremity deep vein thrombosis (DVT), status post venous lysis and angioplasty of the axillary and subclavian vein. - Patient is in the process of bridging to Coumadin. However, is very difficult to raise the patient's INR. - Discussed with pt's PCP, Dr. Diop. Dr. Diop has not prescript eliquis or other anticoagulation to pt in the past. - Pt's weight is 150kg. There is no study done to test the efficacy of the new agents for people with weight greater than 120kg. - Discussed with Dr. Carrera, Hem/Onc specialist. Pt may be fast metabolizer that cause difficulty increasing the INR. - Will refer the anticoagulation adjustment to Dr. Go. (3) Osteomyelitis Status: Acute Response to Treatment: Stable Problem Text: - Left foot osteomyelitis. - Infectious specialist and Pipe Recovery Specialist have been consulted. - Culture grew MSSA and Group B streptococcus. On Augmentin 875mg BID. Recommended total of 1 months augmentin. (4) Diabetes Status: Chronic Response to Treatment: Stable Problem Text: - A1C of 7. - On levemir. On sliding scale. On consistent carbohydrate diet. (5) Hypertension Status: Chronic Response to Treatment: Stable Problem Text: - On Norvasc, Coreg and Vasotec. (6) Hyperlipidemia Status: Chronic Response to Treatment: Stable Problem Text: - On lipitor. (7) Gout Status: Chronic Response to Treatment: Stable Problem Text: - Due to JANIE. allopurinol is discontinued. Started on Uloric Plan/VTE VTE Prophylaxis Ordered?: Yes (Heparin drip) VS, I&O, 24H, Fishbone Vital Signs/I&O Vital Signs Date Time Temp Pulse Resp B/P (MAP) Pulse Ox O2 Delivery O2 Flow Rate FiO2 03/08/17 14:00 98.3 83 18 123/62 (82) 90 Room Air I&O- Last 24 Hours up to 6 AM 03/09/17 06:00 Intake Total 1350 ml Output Total 525 ml Balance 825 ml Laboratory Data 24H LABS Laboratory Tests 2 03/07/17 17:18: Bedside Glucose (Misc Panel) 177H 03/08/17 05:18: Nucleated Red Blood Cells % (auto) 0.0, Prothrombin Time 21.1H, Prothromb Time International Ratio 1.77, Activated Partial Thromboplast Time 135.7*H, Anion Gap 8, Glomerular Filtration Rate 35.9L, Uric Acid 7.3H, Blood Urea Nitrogen 38H , Creatinine 2.05H, Sodium Level 138, Potassium Level 4.0, Chloride Level 101, Carbon Dioxide Level 29, Calcium Level 9.3#, Random Vancomycin Level 0.9 CBC/BMP Laboratory Tests 03/08/17 05:18 Red Blood Count 4.39, Mean Corpuscular Volume 88.2, Mean Corpuscular Hemoglobin 28.0, Mean Corpuscular Hemoglobin Concent 31.8 L, Red Cell Distribution Width 15.3 H, Calcium Level 9.3 # Microbiology Microbiology 03/08/17 Stool Occult Blood (ANTOINE) - Final, Complete 03/07/17 Stool Occult Blood (ANTOINE) - Final, Complete 03/05/17 Stool Occult Blood (ANTOINE) - Final, Complete 03/04/17 Stool Occult Blood (ANTOINE) - Final, Complete 03/03/17 Stool Occult Blood (ANTOINE) - Final, Complete 03/01/17 Stool Occult Blood (ANTOINE) - Final, Complete 02/28/17 Stool Occult Blood (ANTOINE) - Final, Complete 02/27/17 Stool Occult Blood (ANTOINE) - Final, Complete 02/26/17 Stool Occult Blood (ANTOINE) - Final, Complete KATIRNA ABREU DO Mar 08, 2017 15:45
[2017-03-08 17:00] VITALS: BP 108/58
[2017-03-08] MEDS: WARFARIN SOD 5 MG TAB PO SCH (17:04)
[2017-03-08 18:00] VITALS: BP 142/79
--- NOTE | 2017-03-08 18:32 | IPN ---
DATE: 03/08/2017 SUBJECTIVE: Mr. Herrera is seen this afternoon on his bedside. He is lying in the bed and denies any dyspnea, chest pain, nausea, vomiting, fever or chills. He remains on heparin drip. His left foot is still in the dressing and brace. PHYSICAL EXAMINATION: VITAL SIGNS: Temperature 98.3 degrees Fahrenheit, heart rate 82 per minute and respiratory rate 18 per minute. Blood pressure 123/62 mmHg and oxygen saturation 90% on room air. Intake and output records from yesterday show total intake 1625 and output 1930. HEAD/NECK: His head is atraumatic. Neck veins are difficult to be assessed. CARDIORESPIRATORY: Heart sounds are regular and lungs sound clear to auscultation bilaterally. ABDOMEN: Soft, obese and nontender. Bowel sounds are normal. EXTREMITIES: Have 1+ edema on the lower thighs and upper legs. His left leg is wrapped in dressing and brace. NEUROLOGIC: He is awake, alert and oriented times three. LABORATORY DATA: Today's labs show WBC count 6.0, hemoglobin 12.3 and hematocrit 38.7. Platelets 430. Sodium 138 and potassium 4.0. BUN is up to 38 and creatinine 2.05. Glucose 213, uric acid level 7.3 and calcium 9.3. PROBLEMS: 1. Acute kidney injury. Trend of his kidney function is consistent with interstitial nephritis. Most likely this is related to antibiotic use. He was on vancomycin for a long time which may have contributed to some nephrotoxicity; however, I suspect that this is more interstitial nephritis. He is still on Augmentin. At this point, his angiotension-converting enzyme (RUPAL) inhibitor has already been stopped. We will monitor his kidney function on a daily basis. There is no emergent indication for dialysis. 2. Hypercalcemia, most likely related to over diuresis. His calcium level was trending up for last few days. His Lasix has been cut down and in fact stopped today. Calcium level has improved to normal range. 3. History of gout with elevated uric acid level. Most likely related to diuretic use. His uric acid level is still above the desired level despite being on allopurinol 300 mg daily. I will switch his allopurinol to Uloric 80 mg daily. 4. Osteomyelitis, left heel, and cellulitis with diabetic foot ulcer. The patient continues with wound care and antibiotics. 5. History of recurrent deep venous thrombosis (DVT) related to peripherally inserted central catheter (PICC) line placement. The patient is on high-dose Coumadin and heparin drip. 6. Diabetes. His diabetes seems to be reasonably well controlled with occasional high readings. He remains on insulin.
[2017-03-08] MEDS: ATORVASTATIN 10 MG TAB PO SCH (20:57)
[2017-03-08] MEDS: AMITRIPTYLINE 25 MG TAB PO SCH (20:57)
[2017-03-08 22:00] VITALS: BP 127/61
[2017-03-09] MEDS: oxyCODONE 5MG TAB PO PRN ×4 (01:16→19:18)
[2017-03-09 02:00] VITALS: BP 100/52
[2017-03-09 05:39] LABS: BASO # 0.1 10^3/uL (0.0-0.2); BASO % 1.3 % (0.0-1.0); EOS # 0.4 10^3/uL (0.0-0.50); EOS % 6.9 % (0.0-3.0); LYMPH # 2.2 10^3/uL (1.5-4.5); MEAN CORPUSCULAR HEMOGLOBIN 28.2 pg (27.0-33.0); MEAN CORPUSCULAR HGB CONC 32.1 g/dl (32.0-36.5); MONO # 0.4 10^3/uL (0.0-0.8); MONO % 6.9 % (0.0-5.0); NEUTROPHILS % 47.9 % (36.0-66.0); PLATELET COUNT, AUTOMATED 422 10^3/uL (150-450); RED CELL DISTRIBUTION WIDTH 15.3 % (11.5-14.5); WHITE BLOOD COUNT 6.2 10^3/uL (4.0-10.0)
[2017-03-09] MEDS: HEPARIN DRIP 25,000 UNITS in APPROPRIATE DILUENT 1 EA IV SCH (05:45)
[2017-03-09 05:50] LABS: INR 1.86
[2017-03-09 05:58] LABS: CALCIUM LEVEL 10.2 MG/DL (8.5-10.1); POTASSIUM SERUM 4.1 MEQ/L (3.5-5.1)
[2017-03-09 06:00] VITALS: BP 149/92
[2017-03-09] MEDS: MULTIVITAMINS/MINERALS THERAP 1 TAB PO SCH (09:06)
[2017-03-09] MEDS: oxyCODONE 20 MG CR TAB PO SCH ×2 (09:06→21:40)
[2017-03-09] MEDS: CARVedilol 12.5 MG TAB PO SCH ×2 (09:10→21:41)
[2017-03-09] MEDS: amLODIPine 5 MG TAB PO SCH ×2 (09:10→21:41)
[2017-03-09] MEDS: BENZTROPINE 1 MG TAB PO SCH ×2 (09:10→21:41)
[2017-03-09] MEDS: AUGMENTIN 875 MG TAB PO SCH ×2 (09:10→21:39)
[2017-03-09] MEDS: buPROPion **XL** TABLET 150MG (WELLBUTRIN XL) PO SCH (09:11)
[2017-03-09] MEDS: DOCUSATE SODIUM 100 MG CAP PO SCH ×2 (09:11→21:39)
[2017-03-09] MEDS: SENOKOT S TAB PO SCH ×2 (09:11→21:39)
[2017-03-09] MEDS: FAMOTIDINE 20 MG TAB PO SCH ×2 (09:11→21:41)
[2017-03-09] MEDS: MAGNESIUM OXIDE 400 MG TAB (MAG-OX) PO SCH ×3 (09:11→21:39)
[2017-03-09] MEDS: FEBUXOSTAT 40 MG TABLET (ULORIC) PO SCH (09:11)
[2017-03-09] MEDS: **hydrALAZINE HCL** 25 MG TAB PO SCH ×3 (09:12→21:41)
[2017-03-09] MEDS: SANTYL OINT 30GM TOP SCH (09:12)
[2017-03-09] MEDS: HumaLOG INSULIN (NovoLOG) PER UNIT SC SCH ×4 (09:13→21:43)
[2017-03-09] MEDS: LEVEMIR (INSULIN DETEMIR) 1 UNITS/0.01ML SC SCH ×2 (09:14→21:43)
[2017-03-09 10:00] VITALS: BP 144/66
--- NOTE | 2017-03-09 12:53 | IPN ---
DATE OF VISIT: 03/09/2017 Mr. Herrera is seen this morning on his bedside. He is lying in his bed without any acute distress. He denies any dyspnea, chest pain, nausea or vomiting. On physical exam, temperature 99.4 degrees Fahrenheit, heart rate 78 per minute and respiratory rate 20 per minute. Blood pressure 144/66 mmHg and oxygen saturation 95% on room air. His head is atraumatic. Neck is supple and without jugular venous distention (JVD) or thyroid enlargement. Heart sounds regular and lungs clear to auscultation. Abdomen soft, obese and nontender and without a palpable organomegaly. Extremities have no cyanosis or clubbing. Left leg is wrapped in dressing and brace. Right lower extremity has only trace of edema. Neurologically he is awake, alert and oriented times three. Today's labs show WBC count 6.2, hemoglobin 12.2 and hematocrit 38.0. Sodium 138 and potassium 4.1. BUN 35 and creatinine 2.0. Calcium level is 10.2. His vitamin D level has come back today at 36.5. PROBLEMS: 1. Acute renal failure. Most likely patient has interstitial nephritis related to medications. He was on vancomycin, which has been stopped. His vancomycin level was only 0.9 yesterday. He does not seem to have nephrotoxicity from vancomycin. However, more likely he has acute interstitial nephritis. There is no significant change in kidney function over last 24 hours. Patient has no uremic symptoms and electrolytes are within normal range. 2. Hypertension. We have adjusted his medications and angiotensin-converting enzyme (RUPAL) inhibitor has been stopped. At present, we will continue with current antihypertensive medications. Blood pressure seems very well controlled. 3. Hypercalcemia. Calcium level was 11.20 on 03/07/2017, which improved to 9.3 yesterday. Today, his calcium level is borderline at 10.2. He remains off diuretics and is not on any calcium supplement. We have also stopped his vitamin D supplement. 4. Gout. Patient does have history of chronic gout and uric acid level was 7.3. His allopurinol was switched to Uloric yesterday. 5. Left foot osteomyelitis and cellulitis. Patient remains on Augmentin. He is afebrile and reports that his wound is healing.
[2017-03-09 14:00] VITALS: BP 129/84
[2017-03-09] MEDS: WARFARIN SOD 5 MG TAB PO SCH (16:46)
--- NOTE | 2017-03-09 17:24 | IPN ---
DATE: 03/09/2017 SUBJECTIVE: The patient is seen and examined in the room today. The patient was resting comfortably in her bed. His service dog is also present during the encounter. Denied any acute complaint or acute changes. OBJECTIVE: VITAL SIGNS: Temperature 99.4, pulse is 78, respirations 20, blood pressure is 144/66, pulse oximetry is 95% in room air. GENERAL: No sign of acute distress, alert and oriented times three. HEENT: Normocephalic, atraumatic. Extraocular motor grossly intact. CARDIOVASCULAR: Positive S1, S2, regular rate. LUNGS: Clear to auscultation bilaterally. ABDOMEN: Soft, nontender, nondistended. Bowel sounds present. EXTREMITIES: There is still some mild swelling of the left lower extremity above the dressing and it is in the posterior proximal lower extremity. LABORATORY DATA: WBC is 6.2, hemoglobin 12.2, hematocrit 38, platelet count is 422. Sodium is 138, potassium 4.1, chloride 102, carbon dioxide is 31, BUN 35, creatinine is 2, GFR is 37, fasting glucose 223, calcium is 10.2. ASSESSMENT AND PLAN: 1. Right upper extremity deep vein thrombosis (DVT), status post venous lysis and angioplasty of axillary and the subclavian vein. The patient has been on the heparin drip. Currently, the patient is on bridging therapy with Coumadin. The patient's Coumadin started to increase. Today, his international normalized ratio (INR) is 1.86. Per Dr. Go's recommendation, the target range should be between 2.5 to 3.5. We will defer the anticoagulation management to Dr. Go. 2. Acute kidney injury. Dr. Ball has been consulted. It was suspected that the patient has acute interstitial nephropathy from the medications. The patient's renal function has started to improve in the last 24 hours. We will continue to follow Dr. Ivory's recommendations. 3. Left foot osteomyelitis secondary to methicillin-sensitive Staphylococcus aureus (MSSA) and group B Streptococcus. Currently, the patient is on Augmentin 875 mg twice a day. Per infectious disease specialist's recommendation, the total duration will be one month. During this admission, Dr. Izaguirre was also consulted for the wound evaluation. 4. Type 2 diabetes with A1c of 7, on Levemir, sliding scale and consistent-carbohydrate diet. 5. Hypertension. Blood pressure is in the satisfactory range. 6. Dyslipidemia, on Lipitor. 7. Gout, on allopurinol. 8. Deep vein thrombosis prophylaxis, on heparin drip bridging with warfarin.
[2017-03-09 18:00] VITALS: BP 131/76
[2017-03-09] MEDS: ATORVASTATIN 10 MG TAB PO SCH (21:41)
[2017-03-09] MEDS: AMITRIPTYLINE 25 MG TAB PO SCH (21:41)
[2017-03-09] MEDS: ENOXAPARIN 150 MG/ML SYR (J1650) SC SCH (21:42)
[2017-03-09 22:00] VITALS: BP 141/75
[2017-03-10 02:00] VITALS: BP 149/77
[2017-03-10] MEDS: oxyCODONE 5MG TAB PO PRN ×4 (02:29→17:10)
[2017-03-10 06:00] VITALS: BP 143/74
[2017-03-10 06:40] LABS: MEAN CORPUSCULAR HEMOGLOBIN 29.1 pg (27.0-33.0); MEAN CORPUSCULAR HGB CONC 33.1 g/dl (32.0-36.5); MEAN CORPUSCULAR VOLUME 88.1 fl (80.0-96.0); RED CELL DISTRIBUTION WIDTH 14.9 % (11.5-14.5); WHITE BLOOD COUNT 6.3 10^3/uL (4.0-10.0)
[2017-03-10 06:43] LABS: INR 1.77
[2017-03-10 07:17] LABS: CALCIUM LEVEL 9.6 MG/DL (8.5-10.1); CARBON DIOXIDE LEVEL 27 MEQ/L (21-32); CHLORIDE LEVEL 103 MEQ/L (98-107); CREATININE FOR GFR 1.66 MG/DL (0.70-1.30); GLUCOSE, FASTING 345 MG/DL (70-105); POTASSIUM SERUM 4.6 MEQ/L (3.5-5.1)
[2017-03-10 07:31] LABS: BLOOD UREA NITROGEN 24 MG/DL (7-18)
[2017-03-10 08:18] LABS: ANION GAP 6 MEQ/L (8-16); SODIUM LEVEL 136 MEQ/L (136-145)
[2017-03-10] MEDS: HumaLOG INSULIN (NovoLOG) PER UNIT SC SCH ×4 (08:18→21:16)
[2017-03-10] MEDS: oxyCODONE 20 MG CR TAB PO SCH ×2 (08:19→21:16)
[2017-03-10] MEDS: MAGNESIUM OXIDE 400 MG TAB (MAG-OX) PO SCH ×3 (08:20→21:13)
[2017-03-10] MEDS: AUGMENTIN 875 MG TAB PO SCH (08:20)
[2017-03-10] MEDS: FEBUXOSTAT 40 MG TABLET (ULORIC) PO SCH (08:20)
[2017-03-10] MEDS: DOCUSATE SODIUM 100 MG CAP PO SCH ×2 (08:21→21:13)
[2017-03-10] MEDS: BENZTROPINE 1 MG TAB PO SCH ×2 (08:21→21:12)
[2017-03-10] MEDS: LEVEMIR (INSULIN DETEMIR) 1 UNITS/0.01ML SC SCH ×2 (08:21→21:16)
[2017-03-10] MEDS: MULTIVITAMINS/MINERALS THERAP 1 TAB PO SCH (08:25)
[2017-03-10] MEDS: **hydrALAZINE HCL** 25 MG TAB PO SCH ×3 (08:25→21:14)
[2017-03-10] MEDS: FAMOTIDINE 20 MG TAB PO SCH ×2 (08:26→21:12)
[2017-03-10] MEDS: amLODIPine 5 MG TAB PO SCH ×2 (08:26→21:13)
[2017-03-10] MEDS: buPROPion **XL** TABLET 150MG (WELLBUTRIN XL) PO SCH (08:26)
[2017-03-10] MEDS: SENOKOT S TAB PO SCH ×2 (08:26→21:13)
[2017-03-10] MEDS: CARVedilol 12.5 MG TAB PO SCH ×2 (08:27→21:14)
[2017-03-10] MEDS: SANTYL OINT 30GM TOP SCH (08:28)
[2017-03-10] MEDS: MIRALAX *UNIT DOSE* 17GM PACKET PO SCH (08:28)
[2017-03-10] MEDS: ENOXAPARIN 150 MG/ML SYR (J1650) SC SCH ×2 (08:28→21:15)
[2017-03-10 10:00] VITALS: BP 142/80
[2017-03-10 14:00] VITALS: BP 152/82
[2017-03-10] MEDS: WARFARIN SOD 5 MG TAB PO SCH (16:00)
--- NOTE | 2017-03-10 16:08 | IPNPDOC ---
Date Seen The patient was seen on 03/10/17. Progress Note SUBJECTIVE: Patient complains of some point pain in his back after having a fall in the shower over the weekend. He tells me he has previously had a broken bone at that spot and thinks it may be acting up on him otherwise he feels well he tells me that the pain in his foot is controlled he denies any chest pain shortness of breath nausea vomiting diarrhea fevers or chills OBJECTIVE PHYSICAL EXAMINATION: VITAL SIGNS: Please see below. GENERAL: Morbidly obese tall man ambulating around his room independently he does not appear to be in any acute distress he is accompanied by a service dog HEENT: Pupils are equally round reactive to light he has moist mucous membranes CARDIOVASCULAR: S1-S2 regular. RESPIRATORY: Clear to auscultation. ABDOMINAL: All sounds present abdomen soft EXTREMITIES: Left lower extremity is in a Cam boot no clubbing cyanosis or edema LABORATORY DATA: Please see below. MICROBIOLOGY: Please see below. IMAGING: No new imaging Echocardiogram: 01/21/17 "1. Normal left ventricle internal dimensions and wall thickness. Normal regional wall motion and wall thickening. Normal LV systolic function. Left ventricular ejection fraction (LVEF) 65% by visual estimate. Normal LV diastolic function. 2. No pericardial effusion. 3. Mild left atrial dilatation. 4. Moderate aortic valve sclerosis of a three-cuspid aortic valve. No aortic stenosis or aortic regurgitation. 5. Inferior vena cava plethora.". DVT prophylaxis ordered?: Lovenox ASSESSMENT AND PLAN: This is a 56-year-old Man with complicated hospital course. PROBLEMS: 1. Right upper Extremity DVT: Status post lysis and angioplasty of axillary and subclavian vein the patient is currently on Coumadin with high metabolizer particles 2.5-3.5 is currently being bridged with Lovenox suggest the patient undergo Lovenox teaching as he has been quite slow to metabolize. 2. Acute kidney injury: Resolved greatly appreciated felt to be secondary to acute interstitial nephritis does appear to be improving at this time we'll continue to monitor. 3. Left heel loss of myelitis: Secondary to MSSA and group B strep the patient is currently on Augmentin today's as per Dr. Gonzales's last note the patient should have outpatient follow-up with Dr. Nalini Beltrán and Dr. Tapia for possible hyperbaric wound care. Continue with pain management regimen 4. Type 2 diabetes: Continue with Levemir and sliding scale his fingersticks are controlled 5. Gout: Continue with allopurinol and uloric 6. dyslipidemia: Continue with Lipitor 7. Hypertension continue with carvedilol, hydralazine and Norvasc 8. Mood disorder: Continue with Wellbutrin 9. Back pain: Status post a recent fall over the weekend I will check thoracolumbar plain films does have some pinpoint tenderness is concern for compression fracture he has a history of a fracture in the past. 10. Essential tremor: He is been seen by neurology he is on benztropine for this DISPOSITION: Patient currently has difficulty moving left PFS revisit him to help him with his disposition planning. VS, I&O, 24H, Fishbone Vital Signs/I&O Vital Signs Date Time Temp Pulse Resp B/P (MAP) Pulse Ox O2 Delivery O2 Flow Rate FiO2 03/10/17 14:00 98.4 84 18 152/82 (105) 95 Room Air I&O- Last 24 Hours up to 6 AM 03/11/17 06:00 Intake Total 1500 ml Output Total 300 ml Balance 1200 ml Laboratory Data 24H LABS Laboratory Tests 2 03/09/17 16:22: Bedside Glucose (Misc Panel) 189H 03/09/17 18:13: Activated Partial Thromboplast Time 41.9H 03/09/17 21:15: Bedside Glucose (Misc Panel) 342H 03/10/17 05:41: Activated Partial Thromboplast Time 47.6H, Nucleated Red Blood Cells % (auto) 0.0, Prothrombin Time 21.2H, Prothromb Time International Ratio 1.77, Anion Gap 6L, Blood Urea Nitrogen 24H, Creatinine 1.66H, Sodium Level 136, Potassium Level 4.6, Chloride Level 103, Carbon Dioxide Level 27, Calcium Level 9.6 03/10/17 11:20: Bedside Glucose (Misc Panel) 265H CBC/BMP Laboratory Tests 03/10/17 05:41 Red Blood Count 4.36, Mean Corpuscular Volume 88.1, Mean Corpuscular Hemoglobin 29.1, Mean Corpuscular Hemoglobin Concent 33.1, Red Cell Distribution Width 14.9 H, Calcium Level 9.6 Microbiology Microbiology 03/09/17 Stool Occult Blood (ANTOINE) - Final, Complete 03/08/17 Stool Occult Blood (ANTOINE) - Final, Complete 03/07/17 Stool Occult Blood (ANTOINE) - Final, Complete 03/05/17 Stool Occult Blood (ANTOINE) - Final, Complete 03/04/17 Stool Occult Blood (ANTOINE) - Final, Complete 03/03/17 Stool Occult Blood (ANTOINE) - Final, Complete 03/01/17 Stool Occult Blood (ANTOINE) - Final, Complete 02/28/17 Stool Occult Blood (ANTOINE) - Final, Complete SUE JENSEN MD Mar 10, 2017 16:08
--- NOTE | 2017-03-10 17:34 | REP ---
THORACIC SPINE: AP and lateral views of the thoracic spine are performed. There is no acute compression fracture. There is an old compression deformity of T12 which is stable compared to prior thoracic spine series 02/04/2010. Scattered spurring is noted. Spurring is predominantly of the lower thoracic vertebral bodies. There is slight disc space narrowing and subchondral sclerosis at these levels. Posterior elements appear intact. IMPRESSION: Old compression deformity T12. No acute fracture or dislocation. Degenerative changes. Signed by Sesar Gatica MD 03/10/2017 08:03 P
[2017-03-10 18:00] VITALS: BP 146/66
[2017-03-10] MEDS: ACETAMINOPHEN TAB 650MG DOSE (2X325MG) PO PRN (18:11)
--- NOTE | 2017-03-10 19:45 | IPN ---
DATE: 03/10/2017 Mr. Herrera is seen on his bedside this morning. He is ambulating in the room. He is feeling better today and denies any dyspnea, chest pain, nausea or vomiting. He has no fever or chills. On physical exam, temperature 98.4 degrees Fahrenheit, heart rate 84 per minute and respiratory rate 18 per minute. Blood pressure 142/90 mmHg and oxygen saturation 96% on room air. Intake and output records from yesterday show total intake 2083 and output 1025. His head is atraumatic. Neck is supple and without any JVD or thyroid enlargement. Ears, nose and throat are unremarkable. Heart sounds are regular and lungs clear to auscultation. Abdomen is soft, nontender and without a palpable organomegaly. Extremities have trace of edema on the right leg. His left leg and foot are in the brace. Neurologically he is awake, alert and oriented times three. Today's labs show WBC count is 6.3, hemoglobin 12.7, and hematocrit 38.4. Sodium 136 and potassium 4.6. BUN 24 and creatinine 1.66. Glucose 345 and calcium 9.6. PROBLEMS: 1. Acute kidney injury superimposed on chronic kidney disease. I suspect possible interstitial nephritis in the setting of diuretic use and angiotensin-converting enzyme (RUPAL) inhibitor. Currently he is off RUPAL inhibitor and diuretic use. He does have diabetic nephropathy and we will resume RUPAL inhibitor once his kidney function returns to baseline. Renal profile will be checked again tomorrow morning. 2. Gout. The patient remains asymptomatic. His uric acid level was 7.3 and his allopurinol has been switched to Uloric 80 mg daily. 3. Left foot osteomyelitis and cellulitis. The patient remains on Augmentin which he is tolerating reasonably well. 4. Recurrent deep venous thrombosis (DVT) in the right upper extremity. The patient is being anticoagulated with Lovenox and Coumadin.
[2017-03-10] MEDS: AMITRIPTYLINE 25 MG TAB PO SCH (21:12)
[2017-03-10] MEDS: ATORVASTATIN 10 MG TAB PO SCH (21:13)
[2017-03-10 22:00] VITALS: BP 165/78
[2017-03-11 02:00] VITALS: BP 151/73
[2017-03-11] MEDS: oxyCODONE 5MG TAB PO PRN ×3 (03:23→18:32)
[2017-03-11 06:00] VITALS: BP 128/74
[2017-03-11 07:00] LABS: MEAN CORPUSCULAR HEMOGLOBIN 28.7 pg (27.0-33.0); MEAN CORPUSCULAR HGB CONC 32.6 g/dl (32.0-36.5); MEAN CORPUSCULAR VOLUME 88.3 fl (80.0-96.0); RED CELL DISTRIBUTION WIDTH 15.2 % (11.5-14.5); WHITE BLOOD COUNT 5.9 10^3/uL (4.0-10.0)
[2017-03-11 07:10] LABS: INR 2.07
[2017-03-11 07:19] LABS: CALCIUM LEVEL 10.1 MG/DL (8.5-10.1); CREATININE FOR GFR 1.45 MG/DL (0.70-1.30); GLOMERULAR FILTRATION RATE 53.6 (>56); POTASSIUM SERUM 4.4 MEQ/L (3.5-5.1)
[2017-03-11] MEDS: oxyCODONE 20 MG CR TAB PO SCH ×2 (08:35→21:28)
[2017-03-11] MEDS: **hydrALAZINE HCL** 25 MG TAB PO SCH ×3 (08:38→21:29)
[2017-03-11] MEDS: SENOKOT S TAB PO SCH ×2 (08:39→21:29)
[2017-03-11] MEDS: MULTIVITAMINS/MINERALS THERAP 1 TAB PO SCH (08:39)
[2017-03-11] MEDS: SANTYL OINT 30GM TOP SCH (08:39)
[2017-03-11] MEDS: BENZTROPINE 1 MG TAB PO SCH ×2 (08:39→21:29)
[2017-03-11] MEDS: FAMOTIDINE 20 MG TAB PO SCH ×2 (08:39→21:30)
[2017-03-11] MEDS: DOCUSATE SODIUM 100 MG CAP PO SCH ×2 (08:39→21:30)
[2017-03-11] MEDS: CARVedilol 12.5 MG TAB PO SCH ×2 (08:40→21:29)
[2017-03-11] MEDS: amLODIPine 5 MG TAB PO SCH ×2 (08:40→21:30)
[2017-03-11] MEDS: FEBUXOSTAT 40 MG TABLET (ULORIC) PO SCH (08:41)
[2017-03-11] MEDS: MAGNESIUM OXIDE 400 MG TAB (MAG-OX) PO SCH ×3 (08:41→21:28)
[2017-03-11] MEDS: buPROPion **XL** TABLET 150MG (WELLBUTRIN XL) PO SCH (08:41)
[2017-03-11] MEDS: LEVEMIR (INSULIN DETEMIR) 1 UNITS/0.01ML SC SCH ×2 (08:41→21:31)
[2017-03-11] MEDS: LIDOCAINE 5% (LIDODERM) PATCH TD SCH (08:42)
[2017-03-11] MEDS: HumaLOG INSULIN (NovoLOG) PER UNIT SC SCH ×4 (08:42→21:00)
[2017-03-11] MEDS: AUGMENTIN 875 MG TAB PO SCH ×2 (08:49→21:29)
[2017-03-11 10:00] VITALS: BP 143/74
[2017-03-11] MEDS: ACETAMINOPHEN TAB 650MG DOSE (2X325MG) PO PRN ×2 (12:10→19:40)
[2017-03-11] MEDS ORDERED: FUROSEMIDE 40 MG TAB PO ONE (12:15)
--- NOTE | 2017-03-11 12:39 | IPN ---
DATE OF VISIT: 03/11/2017 Mr. Herrera is seen this morning on his bedside. He is sitting in the chair and feels well. He denies any fever, chills, nausea, vomiting, dyspnea, chest pain, dysuria or hematuria. He does have some leg edema now. His left leg remains in the dressing and brace. On physical exam, temperature 96.5 degrees Fahrenheit, heart rate 74 per minute and respiratory rate 18 per minute. Blood pressure 152/70 mmHg and oxygen saturation 92% on room air. Intake and output records from yesterday showed total intake 3180 and output 1450. For last 3 days, he has been positive fluid balance of over 1 liter. His head is atraumatic. Neck is supple and without jugular venous distention (JVD) or thyroid enlargement, sitting upright. Lungs sound clear to auscultation. Heart sounds are regular. Abdomen soft and nontender. Extremities without any cyanosis or clubbing. Right leg has 2+ edema up to mid calf area. Left leg remains in the dressing and cast. Today's labs show WBC count 5.9, hemoglobin 12.5 and hematocrit 38.4. Platelets 438. Sodium 139 and potassium 4.4. BUN 20 and creatinine 1.45. Calcium level is 10.1. PROBLEMS: 1. Acute kidney injury superimposed on chronic kidney disease. Kidney function has improved for last 2 days. Today, there is further improvement. Electrolytes are stable and we will continue to monitor his kidney function. His angiotensin-converting enzyme (RUPAL) inhibitor was stopped few days ago when he developed acute renal failure and I would like to resume it once his kidney function returns back to baseline. He has developed leg edema and has been in positive fluid balance. I am starting him back on Lasix 40 mg just once a day. We will continue to monitor his kidney function on a daily basis. 2. Hypertension. Blood pressure is well-controlled so far. His antihypertensives has been changed since he developed acute renal failure and he is currently off RUPAL inhibitor. He does have diabetic nephropathy and I would like to resume RUPAL inhibitor once his kidney function returns back to baseline. 3. Left foot infection and osteomyelitis. Patient remains on Augmentin 875 mg twice a day. 4. Gout. He is currently asymptomatic on Uloric 80 mg daily. 5. Recurrent deep venous thrombosis (DVT) in right arm. Patient remains on high dose of Coumadin and his international normalized ratio (INR) seems to be close to therapeutic range now.
[2017-03-11 14:00] VITALS: BP 121/84
--- NOTE | 2017-03-11 14:13 | IPNPDOC ---
Date Seen The patient was seen on 03/11/17. Progress Note SUBJECTIVE: Patient complains of some point pain in his back but it is tolerable. he tells me that the pain in his foot is controlled he denies any chest pain shortness of breath nausea vomiting diarrhea fevers or chills OBJECTIVE PHYSICAL EXAMINATION: VITAL SIGNS: Please see below. GENERAL: Morbidly obese tall man sitting in recliner he does not appear to be in any acute distress he is accompanied by a service dog HEENT: Pupils are equally round reactive to light he has moist mucous membranes CARDIOVASCULAR: S1-S2 regular. RESPIRATORY: Clear to auscultation. ABDOMINAL:BS sounds present, abdomen soft EXTREMITIES: Left lower extremity is in a Cam boot no clubbing cyanosis or edema LABORATORY DATA: Please see below. MICROBIOLOGY: Please see below. IMAGING: No new imaging Echocardiogram: 01/21/17 "1. Normal left ventricle internal dimensions and wall thickness. Normal regional wall motion and wall thickening. Normal LV systolic function. Left ventricular ejection fraction (LVEF) 65% by visual estimate. Normal LV diastolic function. 2. No pericardial effusion. 3. Mild left atrial dilatation. 4. Moderate aortic valve sclerosis of a three-cuspid aortic valve. No aortic stenosis or aortic regurgitation. 5. Inferior vena cava plethora.". Thoracic spine x-ray:Old compression deformity T12. No acute fracture or dislocation. Degenerative changes. DVT prophylaxis ordered?: Lovenox ASSESSMENT AND PLAN: This is a 56-year-old Man with complicated hospital course. PROBLEMS: 1. Right upper Extremity DVT: Status post lysis and angioplasty of axillary and subclavian vein the patient is currently on Coumadin, he is a high metabolizer goal inr is 2.5-3.5 is currently being bridged with Lovenox suggest the patient undergo Lovenox teaching as he has been quite slow to become therapeutic. 2. Acute kidney injury: Resolved greatly appreciated felt to be secondary to acute interstitial nephritis does appear to be improving at this time we'll continue to monitor. Nephrology's help is appreciated 3. Left heel osteomyelitis: Secondary to MSSA and group B strep the patient is currently on Augmentin today's as per Dr. Ivory's last note the patient should have outpatient follow-up with Dr. Levy and Dr. Tapia for hyperbaric wound care. Continue with current pain management regimen 4. Type 2 diabetes: Continue with Levemir and sliding scale his fingersticks are controlled. I suspect upon discharge he can resume his previous home metformin dose with follow up through his PCP 5. Gout: Continue with uloric 6. dyslipidemia: Continue with Lipitor 7. Hypertension continue with carvedilol, hydralazine and Norvasc 8. Mood disorder: Continue with Wellbutrin 9. Back pain: Status post a recent fall over the weekend, no acute vertebral fractures. Improving, symptomatic relief. 10. Essential tremor: He is been seen by neurology he is on benztropine for this DISPOSITION: Patient currently has no place to be discharged too, PFS is working on this. As per vascular surgery the patient is approaching discharge. VS, I&O, 24H, Fishbone Vital Signs/I&O Vital Signs Date Time Temp Pulse Resp B/P (MAP) Pulse Ox O2 Delivery O2 Flow Rate FiO2 03/11/17 10:00 98.3 83 18 143/74 (97) 95 Room Air I&O- Last 24 Hours up to 6 AM 03/12/17 05:59 Intake Total 480 ml Output Total 300 ml Balance 180 ml Laboratory Data 24H LABS Laboratory Tests 2 03/10/17 16:51: Bedside Glucose (Misc Panel) 165H 03/10/17 20:26: Bedside Glucose (Misc Panel) 256H 03/11/17 05:45: Nucleated Red Blood Cells % (auto) 0.0, Prothrombin Time 24.0H, Prothromb Time International Ratio 2.07, Activated Partial Thromboplast Time 54.5H, Anion Gap 5L, Glomerular Filtration Rate 53.6L, Blood Urea Nitrogen 20H, Creatinine 1.45H , Sodium Level 139, Potassium Level 4.4, Chloride Level 105, Carbon Dioxide Level 29, Calcium Level 10.1 03/11/17 11:35: Bedside Glucose (Misc Panel) 300H CBC/BMP Laboratory Tests 03/11/17 05:45 Red Blood Count 4.35, Mean Corpuscular Volume 88.3, Mean Corpuscular Hemoglobin 28.7, Mean Corpuscular Hemoglobin Concent 32.6, Red Cell Distribution Width 15.2 H, Calcium Level 10.1 Microbiology Microbiology 03/09/17 Stool Occult Blood (ANTOINE) - Final, Complete 03/08/17 Stool Occult Blood (ANTOINE) - Final, Complete 03/07/17 Stool Occult Blood (ANTOINE) - Final, Complete 03/05/17 Stool Occult Blood (ANTOINE) - Final, Complete 03/04/17 Stool Occult Blood (ANTOINE) - Final, Complete 03/03/17 Stool Occult Blood (ANTOINE) - Final, Complete 03/01/17 Stool Occult Blood (ANTOINE) - Final, Complete SUE JENSEN MD Mar 11, 2017 14:13
[2017-03-11] MEDS ORDERED: POLYVINYL ALCOHOL OPHTH SOLN 15 ML(LIQUITEARS) OU PRN (14:15)
[2017-03-11] MEDS: WARFARIN SOD 5 MG TAB PO SCH (17:08)
[2017-03-11 18:00] VITALS: BP 143/74
[2017-03-11] MEDS: **NOTE PATIENT COMMENT** MISC XX SCH (19:14)
[2017-03-11] MEDS: ATORVASTATIN 10 MG TAB PO SCH (21:28)
[2017-03-11] MEDS: AMITRIPTYLINE 25 MG TAB PO SCH (21:29)
[2017-03-11 22:00] VITALS: BP 147/70
[2017-03-12] MEDS: oxyCODONE 5MG TAB PO PRN ×4 (01:05→17:50)
[2017-03-12 02:00] VITALS: BP 142/89
[2017-03-12 06:00] VITALS: BP 137/77
[2017-03-12 07:14] LABS: MEAN CORPUSCULAR HEMOGLOBIN 27.6 pg (27.0-33.0); MEAN CORPUSCULAR HGB CONC 31.7 g/dl (32.0-36.5); MEAN CORPUSCULAR VOLUME 87.1 fl (80.0-96.0); WHITE BLOOD COUNT 5.9 10^3/uL (4.0-10.0)
[2017-03-12 07:32] LABS: CALCIUM LEVEL 10.3 MG/DL (8.5-10.1); CREATININE FOR GFR 1.53 MG/DL (0.70-1.30); GLOMERULAR FILTRATION RATE 50.4 (>56); POTASSIUM SERUM 4.3 MEQ/L (3.5-5.1)
[2017-03-12] MEDS: HumaLOG INSULIN (NovoLOG) PER UNIT SC SCH ×4 (07:57→21:44)
[2017-03-12] MEDS: LEVEMIR (INSULIN DETEMIR) 1 UNITS/0.01ML SC SCH ×2 (07:59→21:45)
[2017-03-12] MEDS: AUGMENTIN 875 MG TAB PO SCH ×2 (08:00→21:44)
[2017-03-12] MEDS: oxyCODONE 20 MG CR TAB PO SCH ×2 (08:00→21:46)
[2017-03-12] MEDS: amLODIPine 5 MG TAB PO SCH ×2 (08:01→21:43)
[2017-03-12] MEDS: FEBUXOSTAT 40 MG TABLET (ULORIC) PO SCH (08:01)
[2017-03-12] MEDS: CARVedilol 12.5 MG TAB PO SCH ×2 (08:01→21:43)
[2017-03-12] MEDS: **hydrALAZINE HCL** 25 MG TAB PO SCH ×3 (08:01→21:43)
[2017-03-12] MEDS: FUROSEMIDE 40 MG TAB PO SCH (08:02)
[2017-03-12] MEDS: SENOKOT S TAB PO SCH ×2 (08:02→21:44)
[2017-03-12] MEDS: DOCUSATE SODIUM 100 MG CAP PO SCH ×2 (08:02→21:44)
[2017-03-12] MEDS: MULTIVITAMINS/MINERALS THERAP 1 TAB PO SCH (08:02)
[2017-03-12] MEDS: FAMOTIDINE 20 MG TAB PO SCH ×2 (08:02→21:43)
[2017-03-12] MEDS: buPROPion **XL** TABLET 150MG (WELLBUTRIN XL) PO SCH (08:02)
[2017-03-12] MEDS: BENZTROPINE 1 MG TAB PO SCH ×2 (08:02→21:44)
[2017-03-12] MEDS: MAGNESIUM OXIDE 400 MG TAB (MAG-OX) PO SCH ×3 (08:02→21:44)
[2017-03-12] MEDS: LIDOCAINE 5% (LIDODERM) PATCH TD SCH (08:03)
[2017-03-12] MEDS: MIRALAX *UNIT DOSE* 17GM PACKET PO SCH (08:03)
[2017-03-12] MEDS: SANTYL OINT 30GM TOP SCH (08:03)
[2017-03-12 10:00] VITALS: BP 144/71
[2017-03-12] MEDS ORDERED: EUCERIN 120GM CREAM TOP PRN (10:00)
[2017-03-12 12:00] LABS: INR 2.03
[2017-03-12 14:00] VITALS: BP 140/62
[2017-03-12] MEDS: WARFARIN SOD 5 MG TAB PO SCH (16:15)
[2017-03-12] MEDS: ACETAMINOPHEN TAB 650MG DOSE (2X325MG) PO PRN (16:19)
[2017-03-12 18:00] VITALS: BP 142/70
[2017-03-12] MEDS: ATORVASTATIN 10 MG TAB PO SCH (21:43)
[2017-03-12] MEDS: AMITRIPTYLINE 25 MG TAB PO SCH (21:43)
[2017-03-12] MEDS: **NOTE PATIENT COMMENT** MISC XX SCH (21:45)
[2017-03-12 22:00] VITALS: BP 152/74
[2017-03-13] MEDS: oxyCODONE 5MG TAB PO PRN ×2 (01:42→07:02)
[2017-03-13 02:00] VITALS: BP 144/73
[2017-03-13 06:00] VITALS: BP 142/79
[2017-03-13 07:40] LABS: MEAN CORPUSCULAR HEMOGLOBIN 27.7 pg (27.0-33.0); MEAN CORPUSCULAR HGB CONC 31.9 g/dl (32.0-36.5); PLATELET COUNT, AUTOMATED 431 10^3/uL (150-450); WHITE BLOOD COUNT 7.2 10^3/uL (4.0-10.0)
[2017-03-13 07:53] LABS: INR 2.08
[2017-03-13 07:59] LABS: CALCIUM LEVEL 11.2 MG/DL (8.5-10.1); CREATININE FOR GFR 1.69 MG/DL (0.70-1.30); GLOMERULAR FILTRATION RATE 44.9 (>56); POTASSIUM SERUM 4.4 MEQ/L (3.5-5.1)
[2017-03-13 08:06] VITALS: BP 162/82
[2017-03-13] MEDS: **hydrALAZINE HCL** 25 MG TAB PO SCH (08:06)
[2017-03-13] MEDS: buPROPion **XL** TABLET 150MG (WELLBUTRIN XL) PO SCH (08:06)
[2017-03-13] MEDS: FUROSEMIDE 40 MG TAB PO SCH (08:06)
[2017-03-13] MEDS: DOCUSATE SODIUM 100 MG CAP PO SCH (08:06)
[2017-03-13] MEDS: FEBUXOSTAT 40 MG TABLET (ULORIC) PO SCH (08:06)
[2017-03-13] MEDS: AUGMENTIN 875 MG TAB PO SCH (08:06)
[2017-03-13] MEDS: BENZTROPINE 1 MG TAB PO SCH (08:06)
[2017-03-13] MEDS: FAMOTIDINE 20 MG TAB PO SCH (08:06)
[2017-03-13] MEDS: SENOKOT S TAB PO SCH (08:07)
[2017-03-13] MEDS: amLODIPine 5 MG TAB PO SCH (08:07)
[2017-03-13] MEDS: MULTIVITAMINS/MINERALS THERAP 1 TAB PO SCH (08:07)
[2017-03-13] MEDS: CARVedilol 12.5 MG TAB PO SCH (08:07)
[2017-03-13] MEDS: HumaLOG INSULIN (NovoLOG) PER UNIT SC SCH ×2 (08:08→12:23)
[2017-03-13] MEDS: MAGNESIUM OXIDE 400 MG TAB (MAG-OX) PO SCH (08:08)
[2017-03-13] MEDS: oxyCODONE 20 MG CR TAB PO SCH (08:08)
[2017-03-13] MEDS: LEVEMIR (INSULIN DETEMIR) 1 UNITS/0.01ML SC SCH (08:09)
[2017-03-13] MEDS: SANTYL OINT 30GM TOP SCH (08:09)
[2017-03-13] MEDS: LIDOCAINE 5% (LIDODERM) PATCH TD SCH (08:10)
[2017-03-13] MEDS ORDERED: BENZ-52 PO (09:52)
[2017-03-13] MEDS ORDERED: FEBU40TA PO (09:52)
[2017-03-13] MEDS ORDERED: CARV12.5 PO (09:52)
[2017-03-13] MEDS ORDERED: AMOX875T2 PO (09:52)
[2017-03-13] MEDS ORDERED: HYDR25TA PO (09:52)
[2017-03-13] MEDS ORDERED: MAG400TA PO (09:52)
[2017-03-13] MEDS ORDERED: METF10004 PO (09:55)
[2017-03-13] MEDS ORDERED: FAMO20TA PO (10:14)
[2017-03-13] MEDS ORDERED: COUM1TAB17 PO (10:14)
[2017-03-13] MEDS ORDERED: FURO20TA2 PO (11:09)
[2017-03-13] MEDS ORDERED: AMIT25TA PO (11:44)
[2017-03-13] MEDS ORDERED: LEVOTAB10 PO (11:44)
[2017-03-13] MEDS ORDERED: GLIM4TAB PO (11:44)
[2017-03-13] MEDS ORDERED: MILKSUS PO (11:44)
[2017-03-13] MEDS ORDERED: SENN8.6T7 PO (11:44)
[2017-03-13] MEDS ORDERED: ATOR1TAB19 PO (11:44)
[2017-03-13] MEDS ORDERED: COLA100C5 PO (11:44)
[2017-03-13] MEDS ORDERED: NEXI40CA PO (11:44)
[2017-03-13] MEDS ORDERED: VITA100066 PO (11:44)
[2017-03-13] MEDS ORDERED: VITMTA PO (11:44)
[2017-03-13] MEDS ORDERED: MIRA33504 PO (11:44)
[2017-03-13] MEDS ORDERED: BUPR150T3 PO (11:44)
[2017-03-13] MEDS ORDERED: AMLO5TAB2 PO (11:44)
--- NOTE | 2017-03-13 12:23 | IPN ---
DATE OF VISIT: 03/12/2017 Mr. Herrera is seen in the morning of March 12. He is sitting in the chair and feels well today. He denies any nausea, vomiting, dyspnea or chest pain. He feels that his leg edema has improved. PHYSICAL EXAMINATION: Temperature 98 degrees Fahrenheit, heart rate 76 per minute and respiratory rate 18 per minute. Blood pressure 140/62 mmHg and oxygen saturation 99% on room air. Intake and output records show a positive fluid balance of 255 mL. His head is atraumatic. Neck is supple and without JVD or thyroid enlargement. Lungs: Sound clear to auscultation. Heart: Sounds regular with systolic murmur grade 2/6. Abdomen: Soft and nontender. Bowel sounds are normal. Extremities: Have trace of edema on the right leg. His left leg and foot are wrapped in dressing. Labs show WBC count 5.9, hemoglobin 12.6 and hematocrit 39.7. Sodium 141 and potassium 4.3. BUN 20 and creatinine 1.53. Calcium level 10.3. PROBLEMS: 1. Acute on chronic kidney disease. The patient has slight worsening of kidney function. This is probably related to diuretic use. I will cut down his Lasix dose to 20 mg daily. 2. Hypercalcemia. He has developed mild hypercalcemia once again. Most likely this is the result of diuretic use. He did have leg edema and required diuretic. We will cut down the dose to 20 mg Lasix once a day and continue to monitor. 3. Left foot chronic diabetic ulcer. The patient remains on antibiotics. At present he is on Augmentin which he will continue. 4. Hypertension. His blood pressure is reasonable. I have stopped his RUPAL inhibitor and he is currently on hydralazine in addition to beta catalina and low-dose diuretic. Will continue with current medications until he is seen in the office. DISPOSITION From renal standpoint, the patient can be discharged to home and followup in the office as an outpatient. From renal standpoint, the patient can be discharged when considered stable.
[2017-03-13] MEDS ORDERED: INFLUENZA QUADRIVALENT PF VACCINE 0.5ML SYRINGE (90686) IM ONE (13:00)
[2017-03-13] MEDS ORDERED: SANT250O8 TOP (13:31)
--- NOTE | 2017-03-13 13:53 | IPN ---
DATE OF SERVICE: 03/13/2017 DATE OF SERVICE: 03/13/2017 The patient seen and examined at bedside. He is excited to be leaving today- his coumadin is therapeutic. He denies any pain in his feet. States his swelling is coming down. He is ambulating well with a cane. Labs are reviews: White blood cell count 7.2, CRP 0.5, INR 2.08. Lower extremity examination: There is very minimal edema to the left lower extremity. His wounds are inspected. No erythema is noted. No malodor. There is now some soft tissue between the bone on the plantar aspect. Some hyper- granular tissue is noted at the medial wound. ASSESSMENT: 56-year-old diabetic male with history of osteomyelitis, abscess status post multiple incision and drainage. PLAN: Continue antibiotics as scheduled per Dr. Ivory. Okay to ambulate in CAM boot. He will have followup with myself and should have followup with Dr. Knapp for evaluation and possibly for hyperbaric oxygen for treatment of chronic osteomyelitis. He will followup in my office within 1-2 weeks. TANNER
--- NOTE | 2017-03-13 15:06 | IPN ---
DATE: 03/13/2017 Mr. Herrera is doing great. He has no pains. He is going home today to a motel. He has had no fever or chills. He remains on Augmentin. PHYSICAL EXAMINATION: Vital signs: Temperature is 99, pulse 64, respirations 18, blood pressure 142/79, O2 sat 93% on room air. Left foot heel contains a small to open area with some macerated tissue around the open wound which measured about 2 x 1 cm. There is no purulent discharge. The other incision at the medial ankle is practically resolved. Cellulitis of the left leg and swelling have completely resolved. There is no redness or tenderness. IMPRESSION: Acute osteomyelitis of the calcaneus with moderate sized treated joint effusion. The patient is doing much better has been on by mouth Augmentin since 02/24/2017. Culture positive for methicillin sensitive Staphylococcus aureus (MSSA) Streptococcus viridans and Prevotella PLAN: Discharge the patient home to finish course of antibiotic with end of therapy end of February. LABS: White count is 7.2, hemoglobin 13.4, hematocrit 42, platelets 431. Sodium 139, potassium 4.4, chloride 105, bicarb 30, BUN 20, creatinine 1.7, glucose 266, calcium 11.2 and CRP is down to 0.5.
[2017-03-13] MEDS ORDERED: WARFARIN SOD 5 MG TAB PO SCH (17:00)
[2017-03-14] MEDS ORDERED: FUROSEMIDE 20 MG TAB PO SCH (09:00)
--- NOTE | 2017-03-31 21:28 | REP ---
Lumbar spine five views: There are no comparisons. Lumbar vertebral body heights and alignment are normal. There is grade II compression deformity of the T12 vertebral body. This is unchanged from a CT scan of 02/04/2010. There is disc space narrowing and degenerative disc disease at L4-5 and L5 S1. There is degenerative disc disease at T12-L1. There is no spondylolysis or spondylolisthesis. There is minimal facet osteoarthritis. The pedicles and sacroiliac articulations are unremarkable. Impression: Degenerative disc disease as described. Chronic grade II compression deformity of T12. Signed by Sesar Ashton MD 03/31/2017 09:19 P
--- NOTE | 2017-04-06 12:00 | REPIR ---
DATE OF PROCEDURE: 02/02/2017 ATTENDING SURGEON: Dr. Kirstin Go PREOPERATIVE DIAGNOSIS: Right upper extremity DVT. POSTOPERATIVE DIAGNOSIS: Right upper extremity DVT. PROCEDURE: Right upper extremity venous thrombolysis followup right axillary vein and subclavian angioplasty with 10 x 40 mm balloon and 12 x 80 mm balloon. INDICATION: Patient is a 56-year-old male who underwent placement of a PICC line in the right upper extremity and developed extensive DVT and swelling in the upper extremity. Patient underwent thrombolysis with subsequent rethrombosis secondary to heparin being discontinued inadvertently. The patient now is undergoing repeat thrombolysis and now follows up for a right upper extremity thrombolysis followup. PROCEDURE: Patient was taken to the angiography suite, placed supine on the angiography table and then prepped and draped in a standard surgical fashion. The right upper extremity venogram showed continuous stenosis at the axillary vein/subclavian vein junction, this was first angioplastied with a 10 x 40 balloon with subsequent stenosis remaining and this was further angioplastied with a 12 x 80 balloon with followup venogram showing resolution of the stenosis. Catheters and wires were removed. The sheath was removed and manual compression applied at the puncture site for hemostasis. Dressings were then applied. Patient tolerated the procedure well. All instruments, sponge, and needle counts were correct at the end of the case. There were no complications. Dr. Go was present for and directed the entire case. The patient was transferred to the holding area and subsequently to the ICU in stable condition. RADIOLOGIC SUPERVISION INTERPRETATION: The initial venogram showed continued stenosis in the axillary vein/subclavian vein junction, this was angioplastied first with at 10 x 40 balloon followed by a 12 x 80 balloon with good angiographic result and no residual stenosis or thrombosis remaining.
--- NOTE | 2017-04-06 12:00 | DSES ---
DATE OF ADMISSION: 01/20/2017 DATE OF DISCHARGE: 03/13/2017 HOSPITAL COURSE: The patient was initially admitted with right upper extremity swelling, chest pain and ruled out for a myocardial event, after which, he subsequently underwent thrombolysis of his right upper extremity with angioplasty. The patient was started on a heparin drip which was inadvertently stopped and he rethrombosed his right upper extremity. The patient subsequently underwent reattempts at thrombolysis which were successful and subsequent angioplasty of the axillary vein and subclavian vein showed a high grade stenosis. The patient continued on heparin postoperatively with conversion to Coumadin, but due to his resistance to Coumadin, it took a prolonged period of time and large amounts of Coumadin to increase his level to therapeutic. Once he approached therapeutic levels, he was discharged on Coumadin with instructions to followup in the office. During the hospitalization as well he had a left lower extremity wound which was showing good signs of healing, but once his antibiotics were stopped, he developed recurrent infection in the left lower extremity and required repeat initiation of antibiotics and this is being followed by the infectious disease (ID) team as well as his wound being managed by Dr. Knapp at the wound care center.
== END 2017-03-13 13:20 | disposition home or self-care (01) | DRG 253 ==
LOC: M ED 20:30 → M ED INP 23:49 → M ICU 01-21 07:50 → M PCU 01-22 02:34 → M ICU 01-22 13:37 → M MS5PR 01-25 14:51 → M ICU 01-27 21:15 → M MSPAV 02-10 21:39
PROVIDERS: ADMIT Internal Medicine; ATTEND Surgery Vascular Surgery
PROC: 05H533Z Insertion of Infusion Device into Right Subclavian Vein, Percutaneous Approach (ICD-10-PCS; 2017-01-22)
PROC: 05753DZ Dilation of Right Subclavian Vein with Intraluminal Device, Percutaneous Approach (ICD-10-PCS; 2017-01-25)
PROC: 05773DZ Dilation of Right Axillary Vein with Intraluminal Device, Percutaneous Approach (ICD-10-PCS; principal; 2017-01-25 08:00)
PROC: 05773DZ Dilation of Right Axillary Vein with Intraluminal Device, Percutaneous Approach (ICD-10-PCS; 2017-02-02)
PROC: 05753DZ Dilation of Right Subclavian Vein with Intraluminal Device, Percutaneous Approach (ICD-10-PCS; 2017-02-02)
DX: T82.818A Embolism due to vascular prosthetic devices, implants and grafts, initial encounter (principal); I82.B11 Acute embolism and thrombosis of right subclavian vein; I82.A11 Acute embolism and thrombosis of right axillary vein; M86.9 Osteomyelitis, unspecified; L97.526 Non-pressure chronic ulcer of other part of left foot with bone involvement without evidence of necrosis; E87.2 Acidosis; N17.9 Acute kidney failure, unspecified; E11.40 Type 2 diabetes mellitus with diabetic neuropathy, unspecified; I10 Essential (primary) hypertension; K21.9 Gastro-esophageal reflux disease without esophagitis; E78.5 Hyperlipidemia, unspecified; E83.42 Hypomagnesemia; F41.9 Anxiety disorder, unspecified; E66.01 Morbid (severe) obesity due to excess calories; F32.9 Major depressive disorder, single episode, unspecified; M10.9 Gout, unspecified; Z79.82 Long term (current) use of aspirin; Z79.4 Long term (current) use of insulin; Z91.048 Other nonmedicinal substance allergy status; Z89.421 Acquired absence of other right toe(s); Z96.651 Presence of right artificial knee joint; Z87.891 Personal history of nicotine dependence; E11.621 Type 2 diabetes mellitus with foot ulcer; E83.52 Hypercalcemia

== ENCOUNTER → 2017-01-20 | Outpatient (REF) ==
[~2017-01-20] MED LIST changes: +AMOX875T2 PO; +ASPI81TAEC PO; +BENZ-52 PO; +BUPR150T3 PO; +CARV12.5 PO; +COUM1TAB17 PO; +FAMO20TA PO; +FEBU40TA PO; +FURO20TA2 PO; +HYDR25TA PO; +LOVE0.8I SC; +MIRA33504 PO; +OXYC60TA PO; +SANT250O8 TOP; +SENN8.6T7 PO; +VITA100066 PO; +VITMTA PO
[2017-01-20 10:31] LABS: MEAN CORPUSCULAR HEMOGLOBIN 29.5 pg (27.0-33.0); MEAN CORPUSCULAR HGB CONC 32.6 g/dl (32.0-36.5); MEAN CORPUSCULAR VOLUME 90.2 fl (80.0-96.0); RED CELL DISTRIBUTION WIDTH 17.4 % (11.5-14.5); WHITE BLOOD COUNT 6.8 K/mm3 (4.0-10.0)
[2017-01-20 11:03] LABS: ANION GAP 5 MEQ/L (8-16); BLOOD UREA NITROGEN 11 MG/DL (7-18); CALCIUM LEVEL 9.4 MG/DL (8.5-10.1); CARBON DIOXIDE LEVEL 32 MEQ/L (21-32); CHLORIDE LEVEL 104 MEQ/L (98-107); GLOMERULAR FILTRATION RATE > 60.0 (>56); GLUCOSE, FASTING 240 MG/DL (70-105); MAGNESIUM LEVEL 1.5 MG/DL (1.8-2.4); POTASSIUM SERUM 4.4 MEQ/L (3.5-5.1); SODIUM LEVEL 141 MEQ/L (136-145)
== END ==
DX: E83.42 Hypomagnesemia (principal); Z79.01 Long term (current) use of anticoagulants

== ENCOUNTER → 2017-04-06 | Outpatient (REF) | payer MEDICARE, MEDICAID ==
[~2017-04-06] MED LIST changes: +AMOX875T2 PO; +ASPI81TAEC PO; +BENZ-52 PO; +BUPR150T3 PO; +CARV12.5 PO; +FAMO20TA PO; +FEBU40TA PO; +FURO20TA2 PO; +HYDR25TA PO; +MIRA33504 PO; +OXYC60TA PO; +SANT250O8 TOP; +SENN8.6T7 PO; +VITA100066 PO; +VITMTA PO
[2017-04-06 16:05] LABS: INR 1.25
== END ==
LOC: M SHH 15:40
PROVIDERS: ATTEND Surgery Vascular Surgery
DX: Z79.01 Long term (current) use of anticoagulants (principal)

== ENCOUNTER → 2017-04-13 | Outpatient (REF) | payer MEDICARE, MEDICAID ==
[2017-04-13 17:15] LABS: INR 1.25
== END ==
LOC: M SHH 16:14
PROVIDERS: ATTEND Surgery Vascular Surgery
DX: Z51.81 Encounter for therapeutic drug level monitoring (principal); Z79.01 Long term (current) use of anticoagulants

== ENCOUNTER → 2017-04-17 | Outpatient (REF) | payer MEDICARE, MEDICAID ==
[2017-04-17 15:15] LABS: ALBUMIN 3.4 GM/DL (3.2-5.2); ALBUMIN/GLOBULIN RATIO 1.21 (1.00-1.93); BILIRUBIN,TOTAL 0.3 MG/DL (0.2-1.0); CALCIUM LEVEL 8.5 MG/DL (8.5-10.1); CREATININE FOR GFR 1.33 MG/DL (0.70-1.30); GLOMERULAR FILTRATION RATE 59.2 (>56); POTASSIUM SERUM 4.8 MEQ/L (3.5-5.1); TOTAL PROTEIN 6.2 GM/DL (6.4-8.2); URIC ACID 9.2 MG/DL (3.5-7.2)
== END ==
LOC: M LAB REF 14:20 → M SHH 14:20
PROVIDERS: ATTEND Emergency Medicine
DX: E55.9 Vitamin D deficiency, unspecified (principal); E11.40 Type 2 diabetes mellitus with diabetic neuropathy, unspecified; I10 Essential (primary) hypertension; E78.5 Hyperlipidemia, unspecified; M10.9 Gout, unspecified

== ENCOUNTER → 2017-04-20 | Outpatient (REF) | payer MEDICARE, MEDICAID ==
[2017-04-20 15:07] LABS: INR 2.92
== END ==
LOC: M SHH 13:31
DX: Z79.01 Long term (current) use of anticoagulants (principal)

== ENCOUNTER → 2017-04-23 | Outpatient (REF) | payer MEDICARE, MEDICAID ==
[~2017-04-23] MED LIST changes: +ACCUMIS XX; +BD P31MI2 XX; +CARV25TA PO; +CEPH500C PO; +COUM10TA PO; +D-CA1KIT XX; +DOXY100T PO; +ESOM1CAP5 PO; +HYDR-3910 PO; +LANTINJ4 SC; +MAGN1TAB25 PO; +NEXI1CAP4 PO; +OXYC-141 PO; +OXYC60TA8; +SENN8.6T8 PO; +VITA500046 PO; +WARF-22; +[UNRECOGNIZED DRUG - CODE] XX
[2017-04-23 18:20] LABS: MEAN CORPUSCULAR HEMOGLOBIN 26.8 pg (27.0-33.0); MEAN CORPUSCULAR HGB CONC 32.4 g/dl (32.0-36.5); MEAN CORPUSCULAR VOLUME 82.9 fl (80.0-96.0); PLATELET COUNT, AUTOMATED 507 10^3/uL (150-450); RED CELL DISTRIBUTION WIDTH 14.4 % (11.5-14.5); WHITE BLOOD COUNT 8.6 10^3/uL (4.0-10.0)
[2017-04-23 18:43] LABS: ALBUMIN/GLOBULIN RATIO 1.38 (1.00-1.93); ALKALINE PHOSPHATASE 109 U/L (45-117); ALT/SGPT 22 U/L (12-78); ANION GAP 7 MEQ/L (8-16); AST/SGOT 12 U/L (7-37); BILIRUBIN,TOTAL 0.5 MG/DL (0.2-1.0); BLOOD UREA NITROGEN 12 MG/DL (7-18); CALCIUM LEVEL 9.2 MG/DL (8.5-10.1); CARBON DIOXIDE LEVEL 29 MEQ/L (21-32); CHLORIDE LEVEL 101 MEQ/L (98-107); CREATININE FOR GFR 1.19 MG/DL (0.70-1.30); GLOMERULAR FILTRATION RATE > 60.0 (>56); GLUCOSE, FASTING 225 MG/DL (70-105); POTASSIUM SERUM 4.6 MEQ/L (3.5-5.1); SODIUM LEVEL 137 MEQ/L (136-145); TOTAL PROTEIN 6.9 GM/DL (6.4-8.2)
[2017-04-23 20:21] LABS: ERYTHROCYTE SEDIMENTATION RATE 2 mm/hr (0-20)
== END ==
LOC: M LAB REF 16:27
PROVIDERS: ATTEND Surgery
DX: E11.621 Type 2 diabetes mellitus with foot ulcer (principal); M86.172 Other acute osteomyelitis, left ankle and foot; L97.422 Non-pressure chronic ulcer of left heel and midfoot with fat layer exposed

== ENCOUNTER → 2017-04-27 | Outpatient (REF) | payer MEDICARE, MEDICAID ==
[~2017-04-27] MED LIST changes: -ACCUMIS XX; -BD P31MI2 XX; -CEPH500C PO; -D-CA1KIT XX; -DOXY100T PO; -[UNRECOGNIZED DRUG - CODE] XX
[2017-04-27 14:39] LABS: INR 11.23
== END ==
LOC: M SHH 13:25
PROVIDERS: ATTEND Surgery Vascular Surgery
DX: I82.621 Acute embolism and thrombosis of deep veins of right upper extremity (principal)

== ENCOUNTER 2017-05-01 09:48 | Inpatient (IN) | payer MEDICARE, MEDICAID ==
[~2017-05-01] VITALS: Ht 195.6 cm; Wt 132.8 kg
[~2017-05-01 09:48] MED LIST changes: -CARV25TA PO; -COUM10TA PO; -ESOM1CAP5 PO; -HYDR-3910 PO; -LANTINJ4 SC; -MAGN1TAB25 PO; -NEXI1CAP4 PO; -OXYC-141 PO; -OXYC60TA8; -SENN8.6T8 PO; -VITA500046 PO; -WARF-22
[2017-05-01] MEDS ORDERED: ZYLO300T4 PO (10:07)
[2017-05-01] MEDS ORDERED: OXYC15TA76 PO (10:07)
[2017-05-01] MEDS ORDERED: OXYC60TA8 (10:07)
[2017-05-01] MEDS ORDERED: WARF-22 (10:07)
[2017-05-01] MEDS ORDERED: MORPHINE 2 MG/ML 1ML SYRINGE IV ONE (11:00)
[2017-05-01 11:19] LABS: BASO # 0.1 10^3/uL (0.0-0.2); BASO % 0.8 % (0.0-1.0); EOS # 0.6 10^3/uL (0.0-0.50); EOS % 4.4 % (0.0-3.0); IMMATURE GRANULOCYTE % 1.4 % (0-0); LYMPH # 1.3 10^3/uL (1.5-4.5); LYMPH % 9.4 % (24.0-44.0); MEAN CORPUSCULAR HEMOGLOBIN 26.3 pg (27.0-33.0); MEAN CORPUSCULAR HGB CONC 31.9 g/dl (32.0-36.5); MEAN CORPUSCULAR VOLUME 82.6 fl (80.0-96.0); MONO # 0.9 10^3/uL (0.0-0.8); MONO % 6.9 % (0.0-5.0); NEUTROPHILS # 10.2 10^3/uL (1.8-7.7); NEUTROPHILS % 77.1 % (36.0-66.0); PLATELET COUNT, AUTOMATED 476 10^3/uL (150-450); RED CELL DISTRIBUTION WIDTH 14.6 % (11.5-14.5); WHITE BLOOD COUNT 13.2 10^3/uL (4.0-10.0)
[2017-05-01 11:33] LABS: INR 2.36
[2017-05-01 11:41] LABS: ANION GAP 6 MEQ/L (8-16); BLOOD UREA NITROGEN 18 MG/DL (7-18); CALCIUM LEVEL 9.1 MG/DL (8.5-10.1); CARBON DIOXIDE LEVEL 30 MEQ/L (21-32); CHLORIDE LEVEL 102 MEQ/L (98-107); CREATININE FOR GFR 1.29 MG/DL (0.70-1.30); GLOMERULAR FILTRATION RATE > 60.0 (>56); GLUCOSE, FASTING 228 MG/DL (70-105); POTASSIUM SERUM 4.1 MEQ/L (3.5-5.1); SODIUM LEVEL 138 MEQ/L (136-145)
--- NOTE | 2017-05-01 11:42 | REP ---
LEFT LOWER EXTREMITY DOPPLER VENOUS ULTRASOUND: 05/01/2017. Clinical history: Calf and groin pain. Evaluate for DVT. Comparison: 02/20/2017. Technique: The deep venous system of the left lower extremity is evaluated with griffith scale imaging, compression ultrasound, color imaging and duplex Doppler interrogation. Examination from the groin through the popliteal fossa into the proximal calf. Findings: There is full compressibility from the common femoral vein in the inguinal region through the popliteal vein. Color imaging confirms patency throughout the course of the deep venous system. There is respiratory variation and augmented flow at all levels. In the left inguinal region there are multiple enlarged lymph nodes the largest being 4.6 x 2.8 x 1.8 cm. Previous study, the largest was 4 x 2.7 x 1.6 cm, so slightly larger. In the medial aspect of the popliteal fossa is a complex fluid collection 2.7 x 2.6 x 1.7 cm, likely a Torres's cyst. Laterally and just above the level of the Torres's cyst is another lymph node 2.2 x 2.2 x 1.1 cm. On the previous study, this node was 2.1 x 1.7 x 1.2 cm. Impression: 1. No Doppler venous ultrasound evidence of DVT in the left lower extremity. 2. 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 3. Enlarged lymph nodes groin and popliteal fossa, further increase in size from the January study. Signed by Ambrosio Rosa MD 05/01/2017 11:35 A
[2017-05-01] MEDS ORDERED: PIPERACILLIN/TAZOBACTAM SOD 3.375 GM in APPROPRIATE DILUENT 1 EA IV ONE (13:00)
[2017-05-01] MEDS ORDERED: GLUCOSE 4 GM CHEW TABLET PO PRN (13:45)
[2017-05-01] MEDS ORDERED: GLUCAGON FOR INJ 1 MG VIAL (J1610) SC PRN (13:45)
[2017-05-01] MEDS ORDERED: DEXTROSE 50% 50 ML SYRINGE IV PRN (13:45)
[2017-05-01] MEDS ORDERED: ONDANSETRON 4MG/2ML VIAL (J2405) IV PRN (13:45)
[2017-05-01] MEDS ORDERED: PERCOCET 5MG/325MG TAB PO PRN (13:45)
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
--- NOTE | 2017-05-01 14:36 | PHACANCOPD ---
PHARMACY VANCOMYCIN DOSING Pt Demographics Demographics Patient Age:56 , Weight:135.450 , Gender: male Adjusted Body Weight Date: 05/01/17, Adjusted Body Weight: Kg Events Past 24 Hours Events Past 24 Hours: YES: Elevation in WBC, Pending Diagnostics Vancomycin Vancomycin indication: SSTI Vancomycin Target Ranges: 15-20 mcg/ml Vancomycin Load Y/N: Yes Load Dose Date Time Vancomycin Load Dose: 2g Date: 05/01/17 Time: 1500 Vancomycin Dose Date: 05/01/17. Current Vancomycin Dose: [1g IV Q12H] Intermittent Dosing?: No Labs Labs Item Value Date Time White Blood Count 13.2 10^3/uL H 05/01/17 1105 Erythrocyte Sedimentation Rate 22 mm/hr H 05/01/17 0000 Creatinine 1.29 MG/DL 05/01/17 1105 C-Reactive Protein, Quantitative 6.50 MG/DL H 05/01/17 1048 Micro Microbiology 05/01/17 Blood Culture, Received Pending 05/01/17 Blood Culture, Received Pending Creatinine Clearance Date:05/01/17. Estimated Creatinine Clearance: [~80ml/min]. Pending Labs Vancomycin trough scheduled 05/03/17 @1400 Assessment and Plan Maintaining Current Dose?: Yes Reason for dose change: No Dose Change Pharmacist Note Pharmacist Note Date: 05/01/17. Pharmacist note: Day #1 empiric vancomycin tx initiated with a 2g loading dose, followed by a maintenance regimen of 1g IV Q12H for the treatment of a skin and soft tissue infection of the left leg. The patient has a PMH of left foot osteomyelitis and chronic left leg and left foot infections. The patient was recently here on vancomycin in January, and does have a PMH of MRSA. WBC, ESR, and CRP are all elevated. The patient is currently afebrile. A vancomycin trough has been scheduled 05/03/17 @1400, prior to the 5th dose. We will continue to monitor and make dose adjustments if needed. ELLEN [facility]YDER [facility] May 01, 2017 14:36
[2017-05-01] MEDS ORDERED: VITA500046 PO (15:18)
[2017-05-01] MEDS ORDERED: AMLO5TAB2 PO (15:18)
[2017-05-01] MEDS ORDERED: NEXI1CAP4 PO (15:18)
[2017-05-01] MEDS ORDERED: ESOM1CAP5 PO (15:18)
[2017-05-01] MEDS ORDERED: SENN8.6T8 PO (15:18)
[2017-05-01] MEDS ORDERED: ATOR1TAB19 PO (15:18)
[2017-05-01] MEDS ORDERED: CARV25TA PO (15:18)
[2017-05-01] MEDS ORDERED: BENZ-52 PO (15:18)
[2017-05-01] MEDS ORDERED: COUM10TA PO (15:35)
[2017-05-01] MEDS ORDERED: OXYC-141 PO (15:35)
[2017-05-01] MEDS ORDERED: FEBU40TA PO (15:35)
[2017-05-01] MEDS ORDERED: GLIM4TAB PO (15:35)
[2017-05-01] MEDS ORDERED: MAGN1TAB25 PO (15:35)
[2017-05-01] MEDS ORDERED: FURO20TA2 PO (15:35)
[2017-05-01] MEDS ORDERED: METF10004 PO (15:35)
[2017-05-01] MEDS ORDERED: OXYC60TA8 PO (15:35)
[2017-05-01] MEDS ORDERED: VITMTA PO (15:35)
[2017-05-01] MEDS ORDERED: FAMO20TA PO (15:35)
[2017-05-01] MEDS ORDERED: LEVOTAB10 PO (15:35)
[2017-05-01] MEDS ORDERED: HYDR-3910 PO (15:35)
[2017-05-01] MEDS ORDERED: AMIT25TA PO (15:37)
[2017-05-01] MEDS ORDERED: BUPR150T3 PO (15:39)
[2017-05-01 15:44] VITALS: BP 158/80
[2017-05-01] MEDS ORDERED: VANCOMYCIN HCL 1,000 MG, VIAL MATE ADAPTER 1 EACH in D5W 250 ML IV ONE (16:00)
[2017-05-01] MEDS: VANCOMYCIN HCL 1,000 MG, VIAL MATE ADAPTER 1 EACH in D5W 250 ML IV SCH (16:36)
[2017-05-01] MEDS: HumaLOG INSULIN (NovoLOG) PER UNIT SC SCH ×2 (17:44→21:32)
[2017-05-01] MEDS: ACETAMINOPHEN TAB 650MG DOSE (2X325MG) PO PRN (17:58)
[2017-05-01] MEDS: PERCOCET 5MG/325MG TAB PO PRN (21:29)
[2017-05-01] MEDS: DOCUSATE SODIUM 100 MG CAP PO SCH (21:31)
[2017-05-01 22:00] VITALS: BP 165/99
[2017-05-01] MEDS: PIPERACILLIN/TAZOBACTAM SOD 3.375 GM in APPROPRIATE DILUENT 1 EA IV SCH (22:01)
[2017-05-01] MEDS: MORPHINE 2 MG/ML 1ML SYRINGE IV PRN (23:00)
[2017-05-02] MEDS: OMEPRAZOLE 20 MG CAP PO SCH ×2 (00:49→22:27)
[2017-05-02] MEDS: oxyCODONE 20 MG CR TAB PO SCH ×3 (00:50→22:26)
[2017-05-02] MEDS: VANCOMYCIN HCL 1,000 MG, VIAL MATE ADAPTER 1 EACH in D5W 250 ML IV SCH ×2 (03:24→14:31)
[2017-05-02 06:00] VITALS: BP 155/79
[2017-05-02] MEDS: MORPHINE 2 MG/ML 1ML SYRINGE IV PRN ×4 (06:06→22:33)
[2017-05-02] MEDS: PIPERACILLIN/TAZOBACTAM SOD 3.375 GM in APPROPRIATE DILUENT 1 EA IV SCH ×3 (06:06→22:29)
[2017-05-02 06:44] LABS: ALBUMIN 3.1 GM/DL (3.2-5.2); ANION GAP 9 MEQ/L (8-16); BLOOD UREA NITROGEN 15 MG/DL (7-18); CALCIUM LEVEL 9.1 MG/DL (8.5-10.1); CARBON DIOXIDE LEVEL 26 MEQ/L (21-32); CHLORIDE LEVEL 102 MEQ/L (98-107); CREATININE FOR GFR 1.21 MG/DL (0.70-1.30); GLOMERULAR FILTRATION RATE > 60.0 (>56); GLUCOSE, FASTING 288 MG/DL (70-105); MEAN CORPUSCULAR HEMOGLOBIN 25.9 pg (27.0-33.0); MEAN CORPUSCULAR HGB CONC 31.6 g/dl (32.0-36.5); MEAN CORPUSCULAR VOLUME 81.9 fl (80.0-96.0); PHOSPHORUS LEVEL 2.9 MG/DL (2.5-4.9); PLATELET COUNT, AUTOMATED 413 10^3/uL (150-450); RED CELL DISTRIBUTION WIDTH 14.6 % (11.5-14.5); SODIUM LEVEL 137 MEQ/L (136-145); WHITE BLOOD COUNT 8.8 10^3/uL (4.0-10.0)
[2017-05-02 06:48] LABS: INR 2.39
[2017-05-02 07:43] LABS: INR 2.42
[2017-05-02] MEDS: SANTYL OINT 30GM TOP SCH (08:25)
[2017-05-02] MEDS ORDERED: DIAPER RELIEF PASTE (DESITIN) 60GM TOP SCH (09:00)
[2017-05-02] MEDS: DOCUSATE SODIUM 100 MG CAP PO SCH ×2 (09:21→22:26)
[2017-05-02] MEDS: HumaLOG INSULIN (NovoLOG) PER UNIT SC SCH ×4 (09:22→22:19)
[2017-05-02 14:00] VITALS: BP 165/81
[2017-05-02] MEDS ORDERED: WARFARIN SOD 5 MG TAB PO ONE (17:00)
[2017-05-02] MEDS: PERCOCET 5MG/325MG TAB PO PRN (18:01)
--- NOTE | 2017-05-02 18:26 | IPNPDOC ---
Text Note Date of Service The patient was seen on 05/02/17. NOTE no acute events overnight. no new complaints. no f/c/ abd pain, n/v/cp. GENERAL NAD, A&OX3. HEENT: PERRLA, neck supple, throat clear, no JVD. CARDIOVASCULAR: RRR. nl s1s2 LUNGS: CTA Bilaterally. ABDOMEN: soft, NT/ND, normoactive bowel sounds, no rebound. MUSCULOSKELETAL: no girma abnormalities. EXTREMITIES: left leg: swollen, left groin tender with adenopathy but no erythema. left foot: erythema above the ankle and a open wound with gauze in the base of the heel.. 56 yo male that sees Dr. Knapp for he chronic left leg and foot infections , h/o DMII, HTN, DLD, depression anxiety, gout, neuropathy, RUE DVT, left foot osteomyelitis admitted for left leg lymphadenitis likely 2/2 to left foot DM ulcer Left leg lymphadenitis (negative qSOFA, no signs of sepsis) neg for left foor DM ulcer with PAD Vascular surgery consulted wound care as per surgery zosyn vanco f/u cultures consider ID consult CRP ESR, not sig elevation possible angio on Thu Tu Santyl, alginate, Desitin and dressings optiform for now. DMII, poorly controlled A1C hold oral meds basal bolus insulin adjust vis fs HTN c/w bp meds DLD statin Depression anxiety f/u home meds Gout c/w home meds Neuropathy c/w home meds, glycemic control RUE DVT, coumadin f/u INR DVT ppx on coumadin dispo cultures clinical improvement, vascular consult VS,Tali, I+O VS, Tali, I+O Laboratory Tests 05/02/17 05:26 Red Blood Count 4.75, Mean Corpuscular Volume 81.9, Mean Corpuscular Hemoglobin 25.9 L, Mean Corpuscular Hemoglobin Concent 31.6 L, Red Cell Distribution Width 14.6 H, Anion Gap 9 Vital Signs Date Time Temp Pulse Resp B/P (MAP) Pulse Ox O2 Delivery O2 Flow Rate FiO2 05/02/17 18:01 18 Room Air 05/02/17 14:00 98.3 73 165/81 (109) 96 I&O- Last 24 Hours up to 6 AM 05/03/17 06:00 Intake Total 1060 ml Balance 1060 ml HE,TAY MD May 02, 2017 18:26
[2017-05-02] MEDS: BENZTROPINE 1 MG TAB PO SCH (21:00)
[2017-05-02] MEDS ORDERED: LEVEMIR (INSULIN DETEMIR) 1 UNITS/0.01ML SC SCH (21:00)
[2017-05-02 22:00] VITALS: BP 168/83
[2017-05-02] MEDS: FEBUXOSTAT 40 MG TABLET (ULORIC) PO SCH (22:23)
[2017-05-02] MEDS: **hydrALAZINE HCL** 25 MG TAB PO SCH (22:24)
[2017-05-02] MEDS: ASPIRIN 81 MG ENTERIC TAB PO SCH (22:26)
[2017-05-02] MEDS: SENOKOT S TAB PO SCH (22:26)
[2017-05-02] MEDS: ATORVASTATIN 10 MG TAB PO SCH (22:27)
[2017-05-02] MEDS: AMITRIPTYLINE 25 MG TAB PO SCH (22:27)
[2017-05-02] MEDS: CARVedilol 12.5 MG TAB PO SCH (22:28)
[2017-05-02] MEDS: amLODIPine 5 MG TAB PO SCH (22:28)
[2017-05-03] MEDS: VANCOMYCIN HCL 1,000 MG, VIAL MATE ADAPTER 1 EACH in D5W 250 ML IV SCH (02:27)
[2017-05-03] MEDS: PIPERACILLIN/TAZOBACTAM SOD 3.375 GM in APPROPRIATE DILUENT 1 EA IV SCH (04:29)
[2017-05-03 06:00] VITALS: BP 142/82
[2017-05-03 06:06] LABS: MEAN CORPUSCULAR HEMOGLOBIN 26.2 pg (27.0-33.0); MEAN CORPUSCULAR HGB CONC 31.4 g/dl (32.0-36.5); MEAN CORPUSCULAR VOLUME 83.5 fl (80.0-96.0); PLATELET COUNT, AUTOMATED 414 10^3/uL (150-450); RED CELL DISTRIBUTION WIDTH 14.7 % (11.5-14.5); WHITE BLOOD COUNT 5.8 10^3/uL (4.0-10.0)
[2017-05-03 06:18] LABS: INR 1.81
[2017-05-03 06:27] LABS: ALBUMIN 2.8 GM/DL (3.2-5.2); ANION GAP 7 MEQ/L (8-16); BLOOD UREA NITROGEN 15 MG/DL (7-18); CALCIUM LEVEL 9.2 MG/DL (8.5-10.1); CARBON DIOXIDE LEVEL 28 MEQ/L (21-32); CHLORIDE LEVEL 104 MEQ/L (98-107); CREATININE FOR GFR 1.24 MG/DL (0.70-1.30); GLOMERULAR FILTRATION RATE > 60.0 (>56); PHOSPHORUS LEVEL 3.5 MG/DL (2.5-4.9); POTASSIUM SERUM 4.3 MEQ/L (3.5-5.1); SODIUM LEVEL 139 MEQ/L (136-145)
[2017-05-03 06:36] LABS: GLUCOSE, FASTING 401 MG/DL (70-105)
[2017-05-03] MEDS: SANTYL OINT 30GM TOP SCH (08:15)
[2017-05-03] MEDS: MORPHINE 2 MG/ML 1ML SYRINGE IV PRN (08:15)
[2017-05-03] MEDS: **hydrALAZINE HCL** 25 MG TAB PO SCH ×3 (08:16→21:12)
[2017-05-03] MEDS: ASPIRIN 81 MG ENTERIC TAB PO SCH ×2 (08:16→21:13)
[2017-05-03] MEDS: MULTIVITAMINS/MINERALS THERAP 1 TAB PO SCH (08:16)
[2017-05-03] MEDS: DOCUSATE SODIUM 100 MG CAP PO SCH ×2 (08:16→21:13)
[2017-05-03] MEDS: SENOKOT S TAB PO SCH ×2 (08:16→21:13)
[2017-05-03] MEDS: FEBUXOSTAT 40 MG TABLET (ULORIC) PO SCH ×2 (08:16→21:12)
[2017-05-03] MEDS: FUROSEMIDE 20 MG TAB PO SCH (08:16)
[2017-05-03] MEDS: ALLOPURINOL 300 MG TAB PO SCH (08:17)
[2017-05-03] MEDS: CARVedilol 12.5 MG TAB PO SCH ×2 (08:17→21:13)
[2017-05-03] MEDS: buPROPion **XL** TABLET 150MG (WELLBUTRIN XL) PO SCH (08:17)
[2017-05-03] MEDS: amLODIPine 5 MG TAB PO SCH ×2 (08:17→21:12)
[2017-05-03] MEDS: LEVEMIR (INSULIN DETEMIR) 1 UNITS/0.01ML SC SCH ×2 (08:18→21:11)
[2017-05-03] MEDS: HumaLOG INSULIN (NovoLOG) PER UNIT SC SCH ×4 (08:18→21:11)
[2017-05-03] MEDS: oxyCODONE 20 MG CR TAB PO SCH ×2 (08:33→21:09)
[2017-05-03] MEDS: BENZTROPINE 1 MG TAB PO SCH ×2 (10:08→21:12)
[2017-05-03] MEDS: PERCOCET 5MG/325MG TAB PO PRN ×2 (10:09→18:35)
--- NOTE | 2017-05-03 10:36 | IPNPDOC ---
Text Note Date of Service The patient was seen on 05/03/17. NOTE no acute events overnight. no new complaints. no f/c/ abd pain, n/v/cp. GENERAL NAD, A&OX3. HEENT: PERRLA, neck supple, throat clear, no JVD. CARDIOVASCULAR: RRR. nl s1s2 LUNGS: CTA Bilaterally. ABDOMEN: soft, NT/ND, normoactive bowel sounds, no rebound. MUSCULOSKELETAL: no girma abnormalities. EXTREMITIES: left leg: swollen, left groin tender with adenopathy but no erythema. left foot: erythema above the ankle and a open wound with gauze in the base of the heel.. 56 yo male that sees Dr. Knapp for he chronic left leg and foot infections , h/o DMII, HTN, DLD, depression anxiety, gout, neuropathy, RUE DVT, left foot osteomyelitis admitted for left leg lymphadenitis likely 2/2 to left foot DM ulcer Left leg lymphadenitis (negative qSOFA, no signs of sepsis) neg for left foor DM ulcer with PAD Vascular surgery consulted wound care as per surgery negar prince discontinued givne one of the culture showed staph aureus f/u cultures consider ID consult CRP ESR, not sig elevation possible angio on Thu Tu Santyl, alginate, Desitin and dressings optiform for now. DMII, poorly controlled A1C 10 hold oral meds basal bolus insulin adjust as fs likely would need insulin, teaching ordered HTN c/w bp meds DLD statin Depression anxiety f/u home meds Gout c/w home meds Neuropathy c/w home meds, glycemic control RUE DVT, coumadin f/u INR DVT ppx on coumadin dispo cultures clinical improvement, vascular consult VS,Tali, I+O VS, Tali, I+O Laboratory Tests 05/03/17 05:33 Red Blood Count 4.54, Mean Corpuscular Volume 83.5, Mean Corpuscular Hemoglobin 26.2 L, Mean Corpuscular Hemoglobin Concent 31.4 L, Red Cell Distribution Width 14.7 H, Anion Gap 7 L Vital Signs Date Time Temp Pulse Resp B/P (MAP) Pulse Ox O2 Delivery O2 Flow Rate FiO2 05/03/17 10:09 18 Room Air 05/03/17 08:17 77 142/82 05/03/17 06:00 96.4 92 HENATIE MD May 03, 2017 10:36
[2017-05-03 14:00] VITALS: BP 130/73
[2017-05-03] MEDS: VANCOMYCIN HCL 750 MG, VIAL MATE ADAPTER 1 EACH in D5W 250 ML IV SCH ×2 (15:00→22:29)
[2017-05-03] MEDS ORDERED: WARFARIN SOD 7.5 MG TAB PO SCH (17:00)
[2017-05-03] MEDS: AMITRIPTYLINE 25 MG TAB PO SCH (21:11)
[2017-05-03] MEDS: ATORVASTATIN 10 MG TAB PO SCH (21:13)
[2017-05-03] MEDS: OMEPRAZOLE 20 MG CAP PO SCH (21:13)
[2017-05-03 22:00] VITALS: BP 110/70
[2017-05-04] MEDS: PERCOCET 5MG/325MG TAB PO PRN ×2 (05:28→13:01)
[2017-05-04 05:49] LABS: MEAN CORPUSCULAR HEMOGLOBIN 26.1 pg (27.0-33.0); MEAN CORPUSCULAR HGB CONC 31.5 g/dl (32.0-36.5); MEAN CORPUSCULAR VOLUME 82.8 fl (80.0-96.0); PLATELET COUNT, AUTOMATED 446 10^3/uL (150-450); RED CELL DISTRIBUTION WIDTH 14.7 % (11.5-14.5)
[2017-05-04 06:00] VITALS: BP 140/67
[2017-05-04 06:15] LABS: ALBUMIN 2.8 GM/DL (3.2-5.2); ANION GAP 6 MEQ/L (8-16); BLOOD UREA NITROGEN 18 MG/DL (7-18); CALCIUM LEVEL 9.3 MG/DL (8.5-10.1); CARBON DIOXIDE LEVEL 28 MEQ/L (21-32); CHLORIDE LEVEL 104 MEQ/L (98-107); CREATININE FOR GFR 1.25 MG/DL (0.70-1.30); GLOMERULAR FILTRATION RATE > 60.0 (>56); GLUCOSE, FASTING 275 MG/DL (70-105); PHOSPHORUS LEVEL 3.8 MG/DL (2.5-4.9); POTASSIUM SERUM 4.5 MEQ/L (3.5-5.1); SODIUM LEVEL 138 MEQ/L (136-145)
[2017-05-04 06:29] LABS: INR 1.58
[2017-05-04] MEDS: VANCOMYCIN HCL 750 MG, VIAL MATE ADAPTER 1 EACH in D5W 250 ML IV SCH ×2 (06:40→15:53)
[2017-05-04] MEDS: MORPHINE 2 MG/ML 1ML SYRINGE IV PRN ×2 (06:41→15:11)
[2017-05-04] MEDS: HumaLOG INSULIN (NovoLOG) PER UNIT SC SCH ×4 (08:42→21:43)
[2017-05-04] MEDS: LEVEMIR (INSULIN DETEMIR) 1 UNITS/0.01ML SC SCH (08:43)
[2017-05-04] MEDS: FEBUXOSTAT 40 MG TABLET (ULORIC) PO SCH ×2 (08:44→21:41)
[2017-05-04] MEDS: BENZTROPINE 1 MG TAB PO SCH ×2 (08:45→21:42)
[2017-05-04] MEDS: oxyCODONE 20 MG CR TAB PO SCH ×2 (08:45→21:44)
[2017-05-04] MEDS: CARVedilol 12.5 MG TAB PO SCH ×2 (08:46→21:42)
[2017-05-04] MEDS: ASPIRIN 81 MG ENTERIC TAB PO SCH ×2 (08:46→21:41)
[2017-05-04] MEDS: **hydrALAZINE HCL** 25 MG TAB PO SCH ×3 (08:46→21:42)
[2017-05-04] MEDS: amLODIPine 5 MG TAB PO SCH ×2 (08:46→21:43)
[2017-05-04] MEDS: ALLOPURINOL 300 MG TAB PO SCH (08:47)
[2017-05-04] MEDS: FUROSEMIDE 20 MG TAB PO SCH (08:47)
[2017-05-04] MEDS: MULTIVITAMINS/MINERALS THERAP 1 TAB PO SCH (08:47)
[2017-05-04] MEDS: SENOKOT S TAB PO SCH ×2 (08:47→21:41)
[2017-05-04] MEDS: buPROPion **XL** TABLET 150MG (WELLBUTRIN XL) PO SCH (08:47)
[2017-05-04] MEDS: DOCUSATE SODIUM 100 MG CAP PO SCH ×2 (08:47→21:41)
[2017-05-04] MEDS: SANTYL OINT 30GM TOP SCH (08:48)
[2017-05-04] MEDS ORDERED: LANTINJ4 SC (11:44)
--- NOTE | 2017-05-04 14:05 | IPNPDOC ---
Text Note Date of Service The patient was seen on 05/04/17. NOTE Subjective: Patient is feeling well this morning. The area of erythema has significantly reduced. He has had any acute events overnight. He is not complaining of any pain at this time. He denies any fevers, chills, nausea, vomiting, diarrhea, constipation, shortness of breath, chest pain, palpitations, essentially his entire review of systems is negative. Objective: GENERAL: Awake, alert, oriented. He is in no acute distress. He is sitting upright on the hospital bed HEENT: PERRLA, neck supple, throat clear, no JVD. CARDIOVASCULAR: Regular rate and rhythm with no murmurs rubs or gallops LUNGS: Clear to auscultation bilaterally ABDOMEN: Obese, soft, nontender, no guarding. Bowel sounds are present EXTREMITIES: The area of erythema on the left lower extremity is significantly reduced, there is only a pinkish hue to the left lower extremity above the bandage. The bandage was just replaced earlier this morning, therefore I did not remove it. He is missing the hallux of the right foot. 56 yo male that sees Dr. Knapp for he chronic left leg and foot infections , h/o DMII, HTN, DLD, depression anxiety, gout, neuropathy, RUE DVT, left foot osteomyelitis admitted for left leg lymphadenitis likely 2/2 to left foot DM ulcer 1. Left leg lymphadenitis, left foot DM ulcer with PAD Vascular surgery consulted, I have not touch base with him yet today, however sounds like the patient will be going for angiography with possible angioplasty of the left lower extremity either today or tomorrow wound care as per surgery Continues to show improvement with vancomycin. We'll consult infectious disease for their input regarding prolonged therapy. Cultures shows staph aureus, it is resistant to penicillin, however not oxacillin (not MRSA) 2. DMII, poorly controlled A1C 10 hold oral meds basal bolus insulin adjust as fs likely would need insulin, teaching ordered PFS has been consulted to ensure the insulin will be covered when he is discharged 3. HTN c/w bp meds 4. DLD continue statin 4. Depression /anxiety c/w home meds 5. Gout c/w home meds 6. Neuropathy c/w home meds, glycemic control 7. DVT ppx on coumadin VS,Fishbone, I+O VS, Fishbone, I+O Laboratory Tests 05/04/17 05:18 Red Blood Count 4.60, Mean Corpuscular Volume 82.8, Mean Corpuscular Hemoglobin 26.1 L, Mean Corpuscular Hemoglobin Concent 31.5 L, Red Cell Distribution Width 14.7 H, Anion Gap 6 L Vital Signs Date Time Temp Pulse Resp B/P (MAP) Pulse Ox O2 Delivery O2 Flow Rate FiO2 05/04/17 13:01 18 05/04/17 08:46 140/67 05/04/17 08:46 61 05/04/17 06:00 96.6 93 Room Air I&O- Last 24 Hours up to 6 AM 05/05/17 06:00 Intake Total 720 ml Balance 720 ml GME ATTESTATION GME ATTESTATION My faculty preceptor for this patient encounter was physically present during the encounter and was fully available. All aspects of the patient interview, examination, medical decision making process, and medical care plan development were reviewed and approved by the faculty preceptor. The faculty preceptor is aware and concurs with the plan as stated in the body of this note and will attest to such by his/her cosignature. ATTENDING NOTE I have both independently examined this patient as well as reviewed the note. I have discussed in detail with the resident the findings and plan of treatment as documented in the residents note. I will continue to follow the patient and offer further guidance to the patients care as necessary during this hospital stay. JJ Puente MD, DO May 04, 2017 14:05 TAY DICKERSON MD May 08, 2017 09:32
[2017-05-04 14:45] VITALS: BP 132/66
--- NOTE | 2017-05-04 14:47 | PHACANCOPD ---
PHARMACY VANCOMYCIN DOSING Pt Demographics Demographics Patient Age:56 , Weight:135.450 , Gender: male Adjusted Body Weight Date: 05/01/17, Adjusted Body Weight: Kg Vancomycin Vancomycin indication: SSTI Vancomycin Target Ranges: 15-20 mcg/ml Vancomycin Load Y/N: Yes Load Dose Date Time Vancomycin Load Dose: 2g Date: 05/01/17 Time: 1500 Vancomycin Dose Date: 05/01/17. Current Vancomycin Dose: [1g IV Q12H] Intermittent Dosing?: No Labs Micro Microbiology 05/01/17 Blood Culture - Final, Complete Staphylococcus Aureus 05/01/17 Blood Culture - Preliminary, Resulted No Growth after 72 hours. All specime... 05/02/17 Wound Culture - Preliminary, Resulted Staphylococcus Aureus Creatinine Clearance Date:05/01/17. Estimated Creatinine Clearance: [~80ml/min]. Pending Labs Vancomycin trough scheduled 05/03/17 @1400 Assessment and Plan Maintaining Current Dose?: Yes Reason for dose change: No Dose Change Pharmacist Note Pharmacist Note 05/04/17: Day #4 empiric IV vancomycin tx. Trough today resulted at 13.4, prior to the 4th dose on the new regimen. Wound culture thus far shows staph aureus - pending final sensitivity report. We will continue the patient on the current regimen of 750mg IV Q8H, as further accumulation is likely given BMI. We will continue to monitor and draw further troughs/make further dose adjustments if needed. Date: 05/01/17. Pharmacist note: Day #1 empiric vancomycin tx initiated with a 2g loading dose, followed by a maintenance regimen of 1g IV Q12H for the treatment of a skin and soft tissue infection of the left leg. The patient has a PMH of left foot osteomyelitis and chronic left leg and left foot infections. The patient was recently here on vancomycin in January, and does have a PMH of MRSA. WBC, ESR, and CRP are all elevated. The patient is currently afebrile. A vancomycin trough has been scheduled 05/03/17 @1400, prior to the 5th dose. We will continue to monitor and make dose adjustments if needed. E[facility] May 04, 2017 14:47
[2017-05-04] MEDS ORDERED: IBUPROFEN 800 MG TAB PO ONE (15:00)
[2017-05-04] MEDS ORDERED: CEFAZOLIN SOD 2 GM in APPROPRIATE DILUENT 1 EA IV SCH (18:00)
[2017-05-04] MEDS: WARFARIN SOD 5 MG TAB PO SCH (18:43)
[2017-05-04] MEDS: AMITRIPTYLINE 25 MG TAB PO SCH (21:41)
[2017-05-04] MEDS: OMEPRAZOLE 20 MG CAP PO SCH (21:41)
[2017-05-04] MEDS: ATORVASTATIN 10 MG TAB PO SCH (21:41)
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
[2017-05-05] MEDS: PERCOCET 5MG/325MG TAB PO PRN (01:38)
[2017-05-05 05:45] LABS: MEAN CORPUSCULAR HEMOGLOBIN 25.9 pg (27.0-33.0); MEAN CORPUSCULAR HGB CONC 31.4 g/dl (32.0-36.5); MEAN CORPUSCULAR VOLUME 82.4 fl (80.0-96.0); PLATELET COUNT, AUTOMATED 443 10^3/uL (150-450); WHITE BLOOD COUNT 9.1 10^3/uL (4.0-10.0)
[2017-05-05 05:55] LABS: INR 1.48
[2017-05-05 06:00] VITALS: BP 135/63
[2017-05-05 06:09] LABS: CALCIUM LEVEL 8.9 MG/DL (8.5-10.1); CREATININE FOR GFR 1.32 MG/DL (0.70-1.30); GLOMERULAR FILTRATION RATE 59.7 (>56); PHOSPHORUS LEVEL 3.6 MG/DL (2.5-4.9); POTASSIUM SERUM 4.3 MEQ/L (3.5-5.1)
[2017-05-05] MEDS: oxyCODONE 20 MG CR TAB PO SCH ×2 (08:43→21:03)
[2017-05-05] MEDS: HumaLOG INSULIN (NovoLOG) PER UNIT SC SCH ×4 (08:47→21:03)
[2017-05-05] MEDS: ALLOPURINOL 300 MG TAB PO SCH (08:49)
[2017-05-05] MEDS: SENOKOT S TAB PO SCH ×2 (08:49→21:01)
[2017-05-05] MEDS: MULTIVITAMINS/MINERALS THERAP 1 TAB PO SCH (08:49)
[2017-05-05] MEDS: buPROPion **XL** TABLET 150MG (WELLBUTRIN XL) PO SCH (08:49)
[2017-05-05] MEDS: FEBUXOSTAT 40 MG TABLET (ULORIC) PO SCH ×2 (08:49→21:01)
[2017-05-05] MEDS: LEVEMIR (INSULIN DETEMIR) 1 UNITS/0.01ML SC SCH (08:49)
[2017-05-05] MEDS: BENZTROPINE 1 MG TAB PO SCH ×2 (08:50→21:01)
[2017-05-05] MEDS: **hydrALAZINE HCL** 25 MG TAB PO SCH ×3 (08:50→21:02)
[2017-05-05] MEDS: DOCUSATE SODIUM 100 MG CAP PO SCH ×2 (08:51→21:01)
[2017-05-05] MEDS: ASPIRIN 81 MG ENTERIC TAB PO SCH ×2 (08:51→21:00)
[2017-05-05] MEDS: amLODIPine 5 MG TAB PO SCH ×2 (08:51→21:00)
[2017-05-05] MEDS: CARVedilol 12.5 MG TAB PO SCH ×2 (08:51→21:02)
[2017-05-05] MEDS: FUROSEMIDE 20 MG TAB PO SCH (08:51)
[2017-05-05] MEDS: SANTYL OINT 30GM TOP SCH (08:53)
[2017-05-05] MEDS: MORPHINE 2 MG/ML 1ML SYRINGE IV PRN (11:23)
--- NOTE | 2017-05-05 11:27 | IPNPDOC ---
Subjective Date Seen The patient was seen on 05/05/17. Subjective Chief Complaint/HPI The patient is a 56-year-old male admitted with a reason for visit of Acute Lymphangitis Of Left Lower Extremity. Events since last encounter After having the IV in his left antecubital removed yesterday he began to develop some superficial thrombophlebitis of the left arm. He was given 1 dose of ibuprofen, and has been putting a K pad on it. He still is complaining of pain in the left arm, it is not significantly improved today from last night. Otherwise, he denies any other events overnight. He denies any fevers, chills, nausea, vomiting, and the remainder of his review of systems negative. Objective Physical Examination General Exam: Positive: Alert, Cooperative, No Acute Distress Eye Exam: Positive: Conjunctiva & lids normal, EOMI, Negative: Sclera icteric, Ptosis Chest Exam: Positive: Clear to auscultation, Normal air movement, Negative: Rales, Rhonchi, Wheezing Heart Exam: Positive: Rate Normal, Negative: Gallops, Murmurs, Rubs Abdomen Exam: Positive: Normal bowel sounds, Soft, Negative: Tenderness, Hepatospenomegaly Extremity Exam: Positive: Other (Surrounding cellulitis and erythema appears to have completely resolved now. The wound was inspected, he does have a deep wound with callused edges on the posterior aspect of his heel, there is some serosanguineous discharge on his bandage, but no surrounding erythema or edema) Skin Exam: Positive: Nl turgor and temperature, Negative: Rash Neuro Exam: Positive: Normal Speech, Cranial Nerves 3-12 NL Psych Exam: Positive: Mental status NL, Mood NL, Oriented x 3 Assessment /Plan Assessment 56 yo male that sees Dr. Knapp for he chronic left leg and foot infections , h/o DMII, HTN, DLD, depression anxiety, gout, neuropathy,left foot osteomyelitis admitted for left leg lymphadenitis likely 2/2 to left foot DM ulcer Problems (1) Acute lymphangitis of left lower extremity (2) Superficial thrombophlebitis of left upper extremity (3) Cellulitis of left foot Status: Acute (4) Diabetes Status: Chronic (5) Diabetic neuropathy Status: Chronic (6) Hypertension Status: Chronic (7) Osteomyelitis Status: Chronic (8) SARAH (obstructive sleep apnea) Status: Chronic (9) Hyperlipidemia Status: Chronic (10) Gout Status: Chronic (11) Depression with anxiety Status: Chronic Plan/VTE VTE Prophylaxis Ordered?: Yes (Coumadin) Plan The plan is for vascular surgery to perform angiography with angioplasty either today or tomorrow depending on the availability of the IR suite. Given that he has developed a superficial thrombophlebitis of the left arm, the only thing that we are not covering his MRSA, therefore we will switch him over to PO doxycycline both for the treatment of his left leg cellulitis/lymphangitis and will also be covering his left arm as well. Otherwise, his Coumadin dose has just been adjusted and we will continue to follow INRs. It appears that his Lantus will be covered under his current insurance, diabetic education has been ordered, such that he will be able to continue to administer this for himself upon discharge. VS, I&O, 24H, Fishbone Vital Signs/I&O Vital Signs Date Time Temp Pulse Resp B/P (MAP) Pulse Ox O2 Delivery O2 Flow Rate FiO2 05/05/17 08:51 61 135/63 05/05/17 08:43 18 05/05/17 06:00 98.2 94 05/04/17 15:21 Room Air I&O- Last 24 Hours up to 6 AM 05/06/17 06:00 Intake Total 120 ml Output Total 200 ml Balance -80 ml Laboratory Data 24H LABS Laboratory Tests 2 05/04/17 11:46: Bedside Glucose (Misc Panel) 307H 05/04/17 13:53: Vancomycin Level Trough 13.4 05/04/17 17:20: Bedside Glucose (Misc Panel) 195H 05/04/17 20:33: Bedside Glucose (Misc Panel) 332H 05/05/17 05:16: Nucleated Red Blood Cells % (auto) 0.0, Prothrombin Time 18.3H, Prothromb Time International Ratio 1.48, Blood Urea Nitrogen 19H, Creatinine 1.32H, Sodium Level 141, Potassium Level 4.3, Chloride Level 106, Carbon Dioxide Level 28, Anion Gap 7L, Glomerular Filtration Rate 59.7, Calcium Level 8.9, Phosphorus Level 3.6, C-Reactive Protein, Quantitative 2.61H, Albumin 3.0L CBC/BMP Laboratory Tests 05/05/17 05:16 Red Blood Count 4.60, Mean Corpuscular Volume 82.4, Mean Corpuscular Hemoglobin 25.9 L, Mean Corpuscular Hemoglobin Concent 31.4 L, Red Cell Distribution Width 15.0 H, Anion Gap 7 L Microbiology Microbiology 05/01/17 Blood Culture - Final, Complete Staphylococcus Aureus 05/01/17 Blood Culture - Preliminary, Resulted No Growth after 72 hours. All specime... 05/02/17 Wound Culture - Preliminary, Resulted Klebsiella Pneumoniae Staphylococcus Aureus JJ MEDRANO DO May 05, 2017 11:27
[2017-05-05 14:00] VITALS: BP 126/71
[2017-05-05] MEDS: ACETAMINOPHEN TAB 650MG DOSE (2X325MG) PO PRN (14:55)
--- NOTE | 2017-05-05 17:05 | IPN ---
DATE: 05/05/2017 Mr. Herrera is doing well. He complains of pain in his left leg and his upper thigh, but has improved. The patient is scheduled for angiography of left leg by Dr. Go, is still waiting stating he is hungry and would like to eat. He has no nausea, vomiting or diarrhea. Vital signs: Temperature is 95.7, pulse 67, respirations 20, blood pressure 126/71, oxygen saturation 90% on room air. Heart: Normal S1, S2. No murmurs, rubs or gallops. Lungs are clear. Abdomen: Morbidly obese, soft, nontender. Left leg erythema has diminished, minimal tenderness. LABORATORY DATA: White count is 9.1, hemoglobin 11.9, hematocrit 37.9, platelets 443. Sodium 141, potassium 4.3, chloride 106, bicarbonate 28, BUN 19, creatinine 1.32, glucose 254, calcium 8.9, phosphorus 3.6, CRP 2.61. Wound culture from left foot Klebsiella pneumoniae and heavy MSSA both sensitive to cefazolin. IMPRESSION: 1. Left leg cellulitis due to Staphylococcus aureus with secondary bacteremia. Doing well with IV cefazolin. 2. History of DVT of the arm on Coumadin. PLAN: The patient, once ready for discharge, he could be discharged home on oral Keflex or Duracef. I would not use doxycycline for Staphylococcus aureus bacteremia.
[2017-05-05] MEDS: WARFARIN SOD 5 MG TAB PO SCH (17:25)
[2017-05-05] MEDS: ATORVASTATIN 10 MG TAB PO SCH (21:00)
[2017-05-05] MEDS: OMEPRAZOLE 20 MG CAP PO SCH (21:01)
[2017-05-05] MEDS: AMITRIPTYLINE 25 MG TAB PO SCH (21:01)
[2017-05-05] MEDS: DOXYCYCLINE HYCLATE 100 MG TAB PO SCH (21:01)
[2017-05-05 22:00] VITALS: BP 138/77
[2017-05-06] MEDS: PERCOCET 5MG/325MG TAB PO PRN ×2 (00:46→12:37)
[2017-05-06 06:00] VITALS: BP 155/83
[2017-05-06 06:38] LABS: MEAN CORPUSCULAR HEMOGLOBIN 26.1 pg (27.0-33.0); MEAN CORPUSCULAR HGB CONC 30.9 g/dl (32.0-36.5); MEAN CORPUSCULAR VOLUME 84.5 fl (80.0-96.0); PLATELET COUNT, AUTOMATED 440 10^3/uL (150-450); RED CELL DISTRIBUTION WIDTH 15.1 % (11.5-14.5); WHITE BLOOD COUNT 7.9 10^3/uL (4.0-10.0)
[2017-05-06 06:51] LABS: INR 1.53
[2017-05-06 07:12] LABS: ALBUMIN 2.9 GM/DL (3.2-5.2); ANION GAP 7 MEQ/L (8-16); BLOOD UREA NITROGEN 20 MG/DL (7-18); CARBON DIOXIDE LEVEL 27 MEQ/L (21-32); CHLORIDE LEVEL 104 MEQ/L (98-107); CREATININE FOR GFR 1.29 MG/DL (0.70-1.30); GLOMERULAR FILTRATION RATE > 60.0 (>56); GLUCOSE, FASTING 240 MG/DL (70-105); PHOSPHORUS LEVEL 3.5 MG/DL (2.5-4.9); POTASSIUM SERUM 4.3 MEQ/L (3.5-5.1); SODIUM LEVEL 138 MEQ/L (136-145)
[2017-05-06] MEDS: SANTYL OINT 30GM TOP SCH (08:00)
[2017-05-06] MEDS: HumaLOG INSULIN (NovoLOG) PER UNIT SC SCH ×4 (08:13→20:39)
[2017-05-06] MEDS: LEVEMIR (INSULIN DETEMIR) 1 UNITS/0.01ML SC SCH (08:14)
[2017-05-06] MEDS: CARVedilol 12.5 MG TAB PO SCH ×2 (08:14→21:33)
[2017-05-06] MEDS: **hydrALAZINE HCL** 25 MG TAB PO SCH ×4 (08:14→21:33)
[2017-05-06] MEDS: DOCUSATE SODIUM 100 MG CAP PO SCH ×2 (08:15→21:34)
[2017-05-06] MEDS: buPROPion **XL** TABLET 150MG (WELLBUTRIN XL) PO SCH (08:15)
[2017-05-06] MEDS: FUROSEMIDE 20 MG TAB PO SCH (08:15)
[2017-05-06] MEDS: ALLOPURINOL 300 MG TAB PO SCH (08:15)
[2017-05-06] MEDS: amLODIPine 5 MG TAB PO SCH ×2 (08:15→21:34)
[2017-05-06] MEDS: SENOKOT S TAB PO SCH ×2 (08:16→21:32)
[2017-05-06] MEDS: FEBUXOSTAT 40 MG TABLET (ULORIC) PO SCH ×2 (08:16→21:31)
[2017-05-06] MEDS: MULTIVITAMINS/MINERALS THERAP 1 TAB PO SCH (08:16)
[2017-05-06] MEDS: DOXYCYCLINE HYCLATE 100 MG TAB PO SCH ×2 (08:16→21:34)
[2017-05-06] MEDS: oxyCODONE 20 MG CR TAB PO SCH ×2 (08:16→21:31)
[2017-05-06] MEDS: BENZTROPINE 1 MG TAB PO SCH ×2 (08:16→21:32)
[2017-05-06] MEDS: ASPIRIN 81 MG ENTERIC TAB PO SCH ×2 (08:16→21:34)
[2017-05-06] MEDS: CEPHALEXIN 500 MG CAP PO SCH ×3 (08:24→17:16)
[2017-05-06] MEDS ORDERED: BD P31MI2 XX (13:15)
[2017-05-06] MEDS ORDERED: ACCUMIS XX (13:21)
[2017-05-06] MEDS ORDERED: D-CA1KIT XX (13:21)
--- NOTE | 2017-05-06 13:55 | IPNPDOC ---
Subjective Date Seen The patient was seen on 05/06/17. Subjective Chief Complaint/HPI The patient is a 56-year-old male admitted with a reason for visit of Acute Lymphangitis Of Left Lower Extremity. Events since last encounter The patient is feeling well this morning, he is actually asking if he will be able to go home. His angiography has been delayed due to circumstances out of our control. The patient is understanding. Otherwise, he has no additional complaints or acute issues. General: Reports: Normal Appetite, Denies: Fatigue, Malaise Constitutional: Denies: Chills, Fever, Night Sweats ENT: Denies: Head Aches, Sore Throat Skin: Denies: Rash, Lesions, Bruising Pulmonary: Denies: Dyspnea, Cough Cardiovascular: Denies: Chest Pain, Palpitations Gastrointestinal: Denies: Nausea, Vomiting, Abdominal Pain, Diarrhea, Constipation Neurological: Denies: Weakness Objective Physical Examination General Exam: Positive: Alert, No Acute Distress Eye Exam: Positive: Conjunctiva & lids normal, EOMI, Negative: Sclera icteric, Ptosis Chest Exam: Positive: Clear to auscultation, Normal air movement Heart Exam: Positive: Rate Normal, Negative: Gallops, Murmurs, Rubs Abdomen Exam: Positive: Normal bowel sounds, Soft, Negative: Tenderness, Hepatospenomegaly Extremity Exam: Positive: Other (serosanguineous discharge on his bandage, which was just recently changed earlier this morning) Skin Exam: Positive: Nl turgor and temperature, Negative: Rash (cellulitis changes have completely resolved now in the left lower extremity) Neuro Exam: Positive: Normal Speech, Cranial Nerves 3-12 NL Psych Exam: Positive: Mental status NL, Mood NL, Oriented x 3 Assessment /Plan Problems (1) Acute lymphangitis of left lower extremity (2) Superficial thrombophlebitis of left upper extremity (3) Cellulitis of left foot Status: Acute (4) Diabetes Status: Chronic (5) Diabetic neuropathy Status: Chronic (6) Hypertension Status: Chronic (7) Osteomyelitis Status: Chronic (8) SARAH (obstructive sleep apnea) Status: Chronic (9) Hyperlipidemia Status: Chronic (10) Gout Status: Chronic (11) Depression with anxiety Status: Chronic Plan/VTE VTE Prophylaxis Ordered?: Yes (Coumadin) Plan The patient will be nothing by mouth after midnight tonight. It sounds like he will be one of the first cases in the morning, after his angiography with presumed angioplasty, it sounds as though he will need to be monitored for approximately 4 hours, then if there are no issues suspect he will be ready for discharge at that time. We will continue him on both Keflex and doxycycline for the treatment of his staph aureus bacteremia as well as superficial thrombophlebitis, and just covering for MRSA for safety. He will be going home on insulin, and this has already been approved by his insurance, I have also sent in for pen needles, test strips, glucometer, and lancets, as he will be needing all of these equipment at home. His INR still subtherapeutic today, despite recently increasing his warfarin dose. He will likely need to continue to follow this as an outpatient. VS, I&O, 24H, Fishbone Vital Signs/I&O Vital Signs Date Time Temp Pulse Resp B/P (MAP) Pulse Ox O2 Delivery O2 Flow Rate FiO2 05/06/17 13:07 20 05/06/17 12:37 95 Room Air 05/06/17 08:14 64 136/71 05/06/17 06:00 97.1 I&O- Last 24 Hours up to 6 AM 05/07/17 06:00 Intake Total 480 ml Balance 480 ml Laboratory Data 24H LABS Laboratory Tests 2 05/05/17 17:12: Bedside Glucose (Misc Panel) 240H 05/05/17 20:39: Bedside Glucose (Misc Panel) 262H 05/06/17 05:37: Nucleated Red Blood Cells % (auto) 0.0, Prothrombin Time 18.8H, Prothromb Time International Ratio 1.53, Blood Urea Nitrogen 20H, Creatinine 1.29, Sodium Level 138, Potassium Level 4.3, Chloride Level 104, Carbon Dioxide Level 27, Anion Gap 7L, Glomerular Filtration Rate > 60.0, Calcium Level 9.0, Phosphorus Level 3.5, C-Reactive Protein, Quantitative 3.08H, Albumin 2.9L CBC/BMP Laboratory Tests 05/06/17 05:37 Red Blood Count 4.45, Mean Corpuscular Volume 84.5, Mean Corpuscular Hemoglobin 26.1 L, Mean Corpuscular Hemoglobin Concent 30.9 L, Red Cell Distribution Width 15.1 H, Anion Gap 7 L Microbiology Microbiology 05/01/17 Blood Culture - Final, Complete Staphylococcus Aureus 05/01/17 Blood Culture - Preliminary, Resulted No Growth after 72 hours. All specime... 05/02/17 Wound Culture - Final, Complete Klebsiella Pneumoniae Staphylococcus Aureus Enterococcus Faecalis JJ MEDRANO DO May 06, 2017 13:55
[2017-05-06 14:00] VITALS: BP 143/72
[2017-05-06] MEDS: MORPHINE 2 MG/ML 1ML SYRINGE IV PRN (15:28)
[2017-05-06] MEDS: WARFARIN SOD 5 MG TAB PO SCH (17:16)
[2017-05-06] MEDS: OMEPRAZOLE 20 MG CAP PO SCH (21:32)
[2017-05-06] MEDS: AMITRIPTYLINE 25 MG TAB PO SCH (21:32)
[2017-05-06] MEDS: ATORVASTATIN 10 MG TAB PO SCH (21:34)
[2017-05-06 22:00] VITALS: BP 146/93
[2017-05-07] MEDS: MORPHINE 2 MG/ML 1ML SYRINGE IV PRN (01:03)
[2017-05-07] MEDS: PERCOCET 5MG/325MG TAB PO PRN ×3 (01:03→19:31)
[2017-05-07] MEDS: CEPHALEXIN 500 MG CAP PO SCH ×4 (01:04→17:28)
[2017-05-07 05:57] LABS: MEAN CORPUSCULAR HEMOGLOBIN 26.5 pg (27.0-33.0); MEAN CORPUSCULAR HGB CONC 31.7 g/dl (32.0-36.5); MEAN CORPUSCULAR VOLUME 83.6 fl (80.0-96.0); PLATELET COUNT, AUTOMATED 441 10^3/uL (150-450); RED CELL DISTRIBUTION WIDTH 14.8 % (11.5-14.5)
[2017-05-07 06:00] VITALS: BP 145/73
[2017-05-07 06:10] LABS: INR 1.6
[2017-05-07 06:46] LABS: ALBUMIN 2.9 GM/DL (3.2-5.2); ANION GAP 6 MEQ/L (8-16); BLOOD UREA NITROGEN 16 MG/DL (7-18); CARBON DIOXIDE LEVEL 29 MEQ/L (21-32); CHLORIDE LEVEL 104 MEQ/L (98-107); CREATININE FOR GFR 1.17 MG/DL (0.70-1.30); GLOMERULAR FILTRATION RATE > 60.0 (>56); GLUCOSE, FASTING 211 MG/DL (70-105); PHOSPHORUS LEVEL 3.4 MG/DL (2.5-4.9); POTASSIUM SERUM 4.2 MEQ/L (3.5-5.1); SODIUM LEVEL 139 MEQ/L (136-145)
[2017-05-07] MEDS: HumaLOG INSULIN (NovoLOG) PER UNIT SC SCH ×4 (08:05→20:08)
[2017-05-07] MEDS: BENZTROPINE 1 MG TAB PO SCH ×2 (08:05→20:12)
[2017-05-07] MEDS: **hydrALAZINE HCL** 25 MG TAB PO SCH ×3 (08:05→20:11)
[2017-05-07] MEDS: FUROSEMIDE 20 MG TAB PO SCH (08:05)
[2017-05-07] MEDS: DOCUSATE SODIUM 100 MG CAP PO SCH ×2 (08:05→20:10)
[2017-05-07] MEDS: FEBUXOSTAT 40 MG TABLET (ULORIC) PO SCH ×2 (08:06→20:11)
[2017-05-07] MEDS: oxyCODONE 20 MG CR TAB PO SCH ×2 (08:06→20:09)
[2017-05-07] MEDS: MULTIVITAMINS/MINERALS THERAP 1 TAB PO SCH (08:06)
[2017-05-07] MEDS: ALLOPURINOL 300 MG TAB PO SCH (08:06)
[2017-05-07] MEDS: ASPIRIN 81 MG ENTERIC TAB PO SCH ×2 (08:06→20:11)
[2017-05-07] MEDS: SENOKOT S TAB PO SCH ×2 (08:06→20:10)
[2017-05-07] MEDS: amLODIPine 5 MG TAB PO SCH ×2 (08:06→20:10)
[2017-05-07] MEDS: buPROPion **XL** TABLET 150MG (WELLBUTRIN XL) PO SCH (08:06)
[2017-05-07] MEDS: DOXYCYCLINE HYCLATE 100 MG TAB PO SCH ×2 (08:06→20:11)
[2017-05-07] MEDS: SANTYL OINT 30GM TOP SCH (08:07)
[2017-05-07] MEDS: CARVedilol 12.5 MG TAB PO SCH ×2 (08:07→20:11)
[2017-05-07] MEDS: LEVEMIR (INSULIN DETEMIR) 1 UNITS/0.01ML SC SCH (08:07)
[2017-05-07] MEDS ORDERED: [UNRECOGNIZED DRUG - CODE] XX (10:10)
[2017-05-07] MEDS ORDERED: CEPH500C PO (11:50)
[2017-05-07] MEDS ORDERED: DOXY100T PO (11:50)
[2017-05-07] MEDS: ACETAMINOPHEN TAB 650MG DOSE (2X325MG) PO PRN (13:14)
[2017-05-07] MEDS ORDERED: ISOVUE-300 61% 50ML VIAL (Q9967) As Ordered ONE (14:41)
[2017-05-07] MEDS ORDERED: PROTAMINE SULF INJ 50 MG/5 ML VIAL (J2720) As Ordered ONE (14:42)
[2017-05-07] MEDS ORDERED: HEPARIN 1,000 UNITS/ML 10ML VIAL (FOR RADIOLOGY& DIALYSIS ONLY) As Ordered ONE (14:42)
[2017-05-07] MEDS ORDERED: fentaNYL 100 MCG/2 ML INJECTION (J3010) As Ordered ONE (14:44)
[2017-05-07] MEDS ORDERED: MIDAZOLAM INJ 2 MG/2 ML VIAL (J2250) As Ordered ONE (14:44)
[2017-05-07] MEDS ORDERED: COUM1TAB17 PO (16:08)
[2017-05-07 17:00] VITALS: BP 135/73
[2017-05-07] MEDS ORDERED: WARFARIN SOD 5 MG TAB PO SCH (17:00)
[2017-05-07 17:28] VITALS: BP 135/73
[2017-05-07 17:30] VITALS: BP 142/72
[2017-05-07 18:30] VITALS: BP 154/82
--- NOTE | 2017-05-07 19:36 | IPN ---
DATE: 05/07/2017 Mr. Herrera is doing well. He just got back from his angiogram. He denies any fever, chills, nausea, vomiting, or diarrhea. Phlebitis, left arm, has decreased in redness. He remains afebrile. White count is 8, hemoglobin 11.6, hematocrit 36.6, platelet 441. Sodium 139, potassium 4.2, chloride 104, bicarbonate 29, BUN 16, creatinine 1.17, glucose 211, calcium 9, magnesium 3.4. CRP 2.18. Left foot with decreased erythema and swelling of the leg and thigh. Ulcer open, measuring about 2 x 2 cm with minimal drainage. Wound culture was positive for Klebsiella, Staphylococcus aureus, and Enterococcus faecalis. Blood culture was positive for methicillin-sensitive Staphylococcus aureus (MSSA). IMPRESSION: 1. Left lower extremity cellulitis with secondary Staphylococcus aureus bacteremia, on Keflex. 2. Superficial thrombophlebitis of left arm from IV infiltration. Doxycycline was added to cover for methicillin-resistant Staphylococcus aureus (MRSA). PLAN: Continue current antibiotics. The patient will need 2 weeks of total antibiotics from May 01, which would be until May 15.
--- NOTE | 2017-05-07 19:49 | DS.PDOC ---
Discharge Summary General Date of Admission May 01, 2017 at 13:45 Date of Discharge 05/07/2017 Discharge Summary PRIMARY CARE PHYSICIAN: Dr. Diop ATTENDING AT TIME OF DISCHARGE: Dr. Jensen DISCHARGE DIAGNOS(E)S: 1. Left leg lymphangitis and cellulitis secondary to diabetic foot ulcer on left heel 2. Diabetes mellitus type 2 3. Hypertension 4. Dyslipidemia 5. Depression/anxiety 6. Gout 7. Neuropathy 8. History of left foot osteomyelitis 9. Left arm antecubital superficial thrombophlebitis 10. Peripheral vascular disease HPI & HOSPITAL COURSE: Mr. Herrera is a 56-year-old male who presented to the emergency department with a sending lymphangitis of the left leg which originated from a diabetic foot ulcer on his left heel. He had been following with Dr. Knapp for wound care outpatient. He was sent to the ED by his home health nurse who noticed the redness and swelling. He was originally started on vancomycin and Zosyn in the ED, he only received one day's worth of Zosyn. He did have one out of 2 bottles of blood culture that grew positive for Staphylococcus aureus (MSSA ), and then his wound culture was found to have Klebsiella pneumoniae, Staphylococcus aureus, and Enterococcus faecalis. Infectious disease was consulted and they started him on IV cefazolin for 2 days and then he was switched over to oral cephalexin. During his stay he also developed a superficial thrombophlebitis of his left antecubital vein, therefore and doxycycline was added to this regimen just to be safe regarding MRSA, as this was the only thing that was not being covered. Vascular surgery was also consulted during his hospitalization, he was taken to the OR for angiography with angioplasty for a revascularization of the left lower extremity. He has been on insulin in the past, however this had apparently fallen off of his medication list in between prior hospitalizations and rehabilitation in a nursing facility, therefore he was restarted on insulin. He will therefore be continued on insulin at home, although since this is new for him, we will start him on long-acting only, and if he continues to be uncontrolled it may be of benefit to start him on a basal bolus regimen. He will also resume his home medications of metformin and glimepiride upon discharge. Glucometer, test reps, lancets, and long-acting insulin has been prescribed for 30 days. PHYSICAL EXAMINATION ON DISCHARGE: GENERAL: Awake, alert, oriented. He is in acute distress. He is very anxious to get home. CARDIOVASCULAR EXAMINATION: Regular rate and rhythm, with no rubs, gallops, or murmur. RESPIRATORY EXAMINATION: Clear to auscultation bilaterally with no wheezes, rales, or rhonchi. ABDOMINAL EXAMINATION: Soft, nontender, nondistended. Bowel sounds present. EXTREMITIES: Left heel is actually quite macerated this morning and he has soaked through the optic Foman into the kerlix, the wound itself only has serosanguineous discharge, no surrounding erythema. DISPOSITION: Home with prior level of services DISCHARGE INSTRUCTIONS: Follow-up with primary care provider Dr. Diop within 7-10 days, and that his next routine scheduled appointment with Dr. Knapp. Consistent carbohydrate diet. Activity as tolerated, recommend offloading of the left heel. If symptoms return, or if you experience worsening of your symptoms, please call your doctor or return to the emergency department. ITEMS THAT NEED OUTPATIENT FOLLOWUP: Recommend close diabetic follow-up, and management of his insulin My preceptor for this patient encounter was physically present in the building during the encounter and was fully available. As needed, all aspects of the patient interview, examination, medical decision making process, and medical care plan development were reviewed and approved by the preceptor. Preceptor is aware and concurs with the plan as stated in the body of this note and will attest to such by his/her cosignature. Greater than 30 minutes spent organizing discharge Vital Signs/I&Os Vital Signs Date Time Temp Pulse Resp B/P (MAP) Pulse Ox O2 Delivery O2 Flow Rate FiO2 05/07/17 19:31 16 Room Air 05/07/17 18:30 98.4 64 154/82 (106) 93 05/06/17 14:00 I&O- Last 24 Hours up to 6 AM 05/08/17 06:00 Intake Total 480 ml Output Total 0 ml Balance 480 ml Laboratory Data Labs 24H Laboratory Tests 2 05/06/17 20:04: Bedside Glucose (Misc Panel) 208H 05/07/17 05:29: Nucleated Red Blood Cells % (auto) 0.0, Prothrombin Time 19.5H, Prothromb Time International Ratio 1.60, Blood Urea Nitrogen 16, Creatinine 1.17, Sodium Level 139, Potassium Level 4.2, Chloride Level 104, Carbon Dioxide Level 29, Anion Gap 6L, Glomerular Filtration Rate > 60.0, Calcium Level 9.0, Phosphorus Level 3.4, C-Reactive Protein, Quantitative 2.18H, Albumin 2.9L 05/07/17 11:34: Bedside Glucose (Misc Panel) 116H 05/07/17 16:59: Bedside Glucose (Misc Panel) 124H CBC/BMP Laboratory Tests 05/07/17 05:29 Red Blood Count 4.38, Mean Corpuscular Volume 83.6, Mean Corpuscular Hemoglobin 26.5 L, Mean Corpuscular Hemoglobin Concent 31.7 L, Red Cell Distribution Width 14.8 H, Anion Gap 6 L FSBS Laboratory Tests Test 05/06/17 20:04 05/07/17 11:34 05/07/17 16:59 Range/Units Bedside Glucose (Misc Panel) 208 116 124 70-105 MG/DL Microbiology Microbiology 05/01/17 Blood Culture - Final, Complete Staphylococcus Aureus 05/01/17 Blood Culture - Final, Complete NO GROWTH AFTER 5 DAYS 05/02/17 Wound Culture - Final, Complete Klebsiella Pneumoniae Staphylococcus Aureus Enterococcus Faecalis Discharge Medications Scheduled (Esomeprazole Magnesium) 40 Mg Cap, 40 MG PO DAILY, (Reported) Allopurinol (Zyloprim) 300 Mg Tab, 300 MG PO DAILY, (Reported) Amitriptyline HCl (Amitriptyline HCl) 25 Mg Tab, 25 MG PO QHS, (Reported) Amlodipine Besylate (Amlodipine Besylate) 5 Mg Tab, 5 MG PO BID, (Reported) Aspirin (Aspirin EC) 81 Mg Tabec, 81 MG PO BID, (Reported) Atorvastatin Calcium (Atorvastatin Calcium) 10 Mg Tab, 10 MG PO QHS, (Reported) Benztropine Mesylate (Benztropine Mesylate) 1 Mg Tab, 1 MG PO BID, (Reported) Bupropion Hcl (Bupropion HCl Xl) 150 Mg Tab, 150 MG PO DAILY, (Reported) Carvedilol (Carvedilol) 25 Mg Tab, 25 MG PO BID, (Reported) Cephalexin Monohydrate (Cephalexin) 500 Mg Cap, 500 MG PO Q6H Cholecalciferol (Vitamin D) 5,000 Unit Tab, 5,000 UNIT PO BID, (Reported) Docusate Sod/Senna (Docusate Sodium & Senna S 8.6-50 mg) 1 Tab Tab, 1 TAB PO BID , (Reported) Doxycycline Hyclate (Doxycycline Hyclate) 100 Mg Tab, 100 MG PO BID Famotidine (Pepcid) 20 Mg Tab, 20 MG PO BID, (Reported) Febuxostat (Uloric) 40 Mg Tab, 40 MG PO BID, (Reported) Furosemide (Furosemide) 20 Mg Tab, 20 MG PO DAILY, (Reported) Glimepiride (Glimepiride) 4 Mg Tab, 4 MG PO DAILY, (Reported) Hydralazine HCl (Hydralazine HCl) 25 Mg Tab, 25 MG PO TID, (Reported) Insulin Glargine (Lantus Solostar) 100 Unit/Ml Inj, 20 UNITS SC QAM Levocetirizine Hydrochloride (Levocetirizine Dihydrochl) 5 Mg Tab, 5 MG PO DAILY , (Reported) Magnesium Oxide (Magnesium) 400 Mg Tab, 400 MG PO BID, (Reported) Metformin Hydrochloride (Metformin HCl) 1,000 Mg Tab, 1,000 MG PO BID, (Reported ) Multivitamins *[facility] STOCKED* (Thera M Plus *[facility] STOCKED*) 1 Tab Tab, 3 TAB PO DAILY, (Reported) Oxycodone HCl (Oxycontin) 60 Mg Tab, 60 MG PO BID, (Reported) Warfarin Sod (Coumadin) 5 Mg Tab, 15 MG PO DAILY Scheduled PRN Oxycodone HCl (Oxycontin) 10 Mg Tab, 10 MG PO Q4H PRN for PAIN, (Reported) Allergies Coded Allergies: Povidone Iodine (Verified Allergy, Unknown, 10/06/16) JJ MEDRANO DO May 07, 2017 19:49 SUE JENSEN MD May 09, 2017 12:10
[2017-05-07 20:09] VITALS: BP 147/108
[2017-05-07] MEDS: OMEPRAZOLE 20 MG CAP PO SCH (20:10)
[2017-05-07] MEDS: AMITRIPTYLINE 25 MG TAB PO SCH (20:10)
[2017-05-07] MEDS: ATORVASTATIN 10 MG TAB PO SCH (20:11)
[2017-05-08] MEDS ORDERED: LEVEMIR (INSULIN DETEMIR) 1 UNITS/0.01ML SC SCH (09:00)
--- NOTE | 2017-05-14 06:40 | REPIR ---
DATE OF PROCEDURE: PREPROCEDURE DIAGNOSES: Nonhealing left foot ulcer, left foot osteomyelitis, left lower extremity cellulitis. POSTPROCEDURE DIAGNOSES: Nonhealing left foot ulcer, left foot osteomyelitis, left lower extremity cellulitis PROCEDURE: Aortogram, iliofemoral angiogram selective, left common femoral artery catheter placement with left lower extremity angiogram selective, left superficial femoral artery catheter placement with left lower extremity angiogram selective, left popliteal artery catheter placement with left lower extremity angiogram, MYNX closure of the right common femoral arteriotomy. SURGEON: Dr. Kirstin Go. ASSOCIATE PROFESSOR OF MATHEMATICS: Amber Holguin. ANESTHESIA: Local sedation with 2 mg of versed, 100 mcg fentanyl and 10 mL of 2% lidocaine. Sedation time was from 1525 to 1605 for a total of 40 minutes. The sedation and the cardiopulmonary monitoring were performed by the nurse in the room under my direct supervision. I was present for and directed the entire case. FLUORO TIME: 4.9 minutes. CONTRAST: 14 mL. HEPARIN: None. COMPLICATIONS: None. DRAINS: None. SPECIMENS: None. IMPLANTS: Right femoral arteriotomy closure with a MYNX closure device. INDICATION: The patient is a 56-year-old male with left foot ulcer and osteomyelitis who has been undergoing mcc antiobiotic therapy and stopped his antibiotics and developed cellulitis in the left lower extremity. The patient previously had undergone an ultrasound which showed the patient having femoral, popliteal and tibioperoneal artery occlusive disease. The patient will now undergo an angiogram with possible angioplasty and/or stent. Risks, benefits and alternative treatment options were discussed with the patient. DESCRIPTION OF PROCEDURE: The patient was taken to the angiography suite, placed supine on the angiography room table and then prepped and draped in a standard surgical fashion. The right common femoral artery was then cannulated with a micropuncture needle after anesthetizing the overlying skin with 2% lidocaine. The micropuncture wire was advanced through the micropuncture needle which was upsized to a micropuncture sheath. A Bentson wire was advanced through the micropuncture sheath which was upsized to a #5-Congolese sheath. An Omni Flush catheter was placed in the aorta and an aortogram was performed. The catheter was pulled down to the level of the bifurcation of the iliac arteries and then iliofemoral angiogram was performed. The catheter was directed over the bifurcation of the iliac arteries, placed in the left common femoral artery and a left lower extremity angiogram was performed. The catheter was directed over the bifurcation of the iliac arteries, placed in the left common femoral artery and a left lower extremity angiogram was performed. The catheter was advanced into the left superficial femoral artery and a left lower extremity angiogram was performed. The catheter was then advanced into the left popliteal artery and the remainder of the left lower extremity angiogram was performed. The catheter and wire were removed. The MYNX closure device was used to close the arteriotomy and the right common femoral artery with an addition of 10 minutes of adjunctive pressure applied for hemostasis. Dressings were then applied. The patient tolerated the procedure well. All instruments, sponge and needle counts were correct at the end of the case. There were no complications. Dr. Go was present for and directed the entire case. The patient was transferred to the holding area and subsequently to the floor in stable condition. RADIOLOGIC SUPERVISION INTERPRETATION: The aortogram was normal. The iliofemoral angiogram was normal. The left lower extremity angiogram was normal. MYNX closure device was used to close the arteriotomy in the right common femoral artery.
== END 2017-05-07 21:00 | disposition home health service (06) | DRG 300 ==
LOC: M ED 09:48 → M ED INP 13:45 → M MSPAV 15:44
PROVIDERS: ADMIT Hospitalist; ATTEND Internal Medicine
PROC: B41GYZZ Fluoroscopy of Left Lower Extremity Arteries using Other Contrast (ICD-10-PCS; principal; 2017-05-07)
PROC: B410YZZ Fluoroscopy of Abdominal Aorta using Other Contrast (ICD-10-PCS; 2017-05-07)
DX: E11.51 Type 2 diabetes mellitus with diabetic peripheral angiopathy without gangrene (principal); L03.116 Cellulitis of left lower limb; E11.40 Type 2 diabetes mellitus with diabetic neuropathy, unspecified; I10 Essential (primary) hypertension; E78.5 Hyperlipidemia, unspecified; F32.9 Major depressive disorder, single episode, unspecified; F41.9 Anxiety disorder, unspecified; M10.9 Gout, unspecified; E11.621 Type 2 diabetes mellitus with foot ulcer; L97.529 Non-pressure chronic ulcer of other part of left foot with unspecified severity; L04.3 Acute lymphadenitis of lower limb; E11.65 Type 2 diabetes mellitus with hyperglycemia; E66.01 Morbid (severe) obesity due to excess calories; I80.8 Phlebitis and thrombophlebitis of other sites; G47.33 Obstructive sleep apnea (adult) (pediatric); B96.1 Klebsiella pneumoniae [K. pneumoniae] as the cause of diseases classified elsewhere; B95.61 Methicillin susceptible Staphylococcus aureus infection as the cause of diseases classified elsewhere; B95.2 Enterococcus as the cause of diseases classified elsewhere; Z96.651 Presence of right artificial knee joint; Z87.891 Personal history of nicotine dependence; Z89.421 Acquired absence of other right toe(s); Z86.718 Personal history of other venous thrombosis and embolism; Z68.35 Body mass index [BMI] 35.0-35.9, adult

== ENCOUNTER → 2017-05-13 | Outpatient (CLI) | payer MEDICARE, MEDICAID ==
[~2017-05-13] MED LIST changes: +ACCUMIS XX; +BD P31MI2 XX; +CARV25TA PO; +CEPH500C PO; +COUM10TA PO; +D-CA1KIT XX; +DOXY100T PO; +ESOM1CAP5 PO; +HYDR-3910 PO; +LANTINJ4 SC; +MAGN1TAB25 PO; +NEXI1CAP4 PO; +OXYC-141 PO; +OXYC60TA8; +SENN8.6T8 PO; +VITA500046 PO; +WARF-22; +[UNRECOGNIZED DRUG - CODE] XX
--- NOTE | 2017-05-13 21:53 | REP ---
Chest x-ray: Two views. History: Type 2 diabetes with foot ulcer. Comparison chest x-ray January 20, 2017 and December 19, 2016. Findings: There is mild stable left lateral pleural thickening. The lungs are well inflated and clear. Pleural angles are sharp. Heart size is normal. There are mild degenerative changes in the thoracic spine. Pulmonary vasculature is not increased. Impression: No active disease. Signed by Wolf Chris MD 05/14/2017 08:10 A
== END ==
LOC: M RAD 13:46
PROVIDERS: ATTEND Surgery
DX: E11.621 Type 2 diabetes mellitus with foot ulcer (principal)

== ENCOUNTER → 2017-05-29 | Outpatient (REF) | payer MEDICARE, MEDICAID ==
[2017-05-29 18:24] LABS: ESTIMATED AVERAGE GLUCOSE 292 MG/DL (60-110); HEMOGLOBIN A1c 11.8 %
== END ==
LOC: M LAB REF 16:21
DX: E11.621 Type 2 diabetes mellitus with foot ulcer (principal)
CPT/HCPCS: 83036

== ENCOUNTER 2017-07-08 13:10 | Emergency (ER) | payer MEDICARE, MEDICAID ==
[2017-07-08] MEDS: NS 1,000 ML IV ×2 (14:15→15:45)
[2017-07-08 14:37] LABS: BASO # 0.1 10^3/uL (0.0-0.2); BASO % 1.3 % (0.0-1.0); EOS # 0.6 10^3/uL (0.0-0.50); EOS % 7.6 % (0.0-3.0); HEMATOCRIT 39.4 % (42.0-52.0); HEMOGLOBIN 13.2 g/dl (14.0-18.0); IMMATURE GRANULOCYTE % 1.5 % (0-3.0); LYMPH # 1.7 10^3/uL (1.5-4.5); LYMPH % 21.5 % (24.0-44.0); MEAN CORPUSCULAR HEMOGLOBIN 27.8 pg (27.0-33.0); MEAN CORPUSCULAR HGB CONC 33.5 g/dl (32.0-36.5); MEAN CORPUSCULAR VOLUME 82.9 fl (80.0-96.0); MONO # 0.5 10^3/uL (0.0-0.8); MONO % 6.3 % (0.0-5.0); NEUTROPHILS # 4.8 10^3/uL (1.8-7.7); NEUTROPHILS % 61.8 % (36.0-66.0); PLATELET COUNT, AUTOMATED 398 10^3/uL (150-450); RED BLOOD COUNT 4.75 10^6/uL (4.30-6.10); RED CELL DISTRIBUTION WIDTH 17.2 % (11.5-14.5); WHITE BLOOD COUNT 7.8 10^3/uL (4.0-10.0)
[2017-07-08 14:52] LABS: INR 1.09; PROTHROMBIN TIME 14.3 SECONDS (12.4-14.5)
[2017-07-08 14:53] LABS: ESTIMATED AVERAGE GLUCOSE 369 MG/DL (60-110); HEMOGLOBIN A1c 14.5 %
[2017-07-08 14:57] LABS: ALBUMIN 3.5 GM/DL (3.2-5.2); ALBUMIN/GLOBULIN RATIO 1.21 (1.00-1.93); ALKALINE PHOSPHATASE 124 U/L (45-117); ALT/SGPT 21 U/L (12-78); ANION GAP 10 MEQ/L (8-16); AST/SGOT 14 U/L (7-37); BILIRUBIN,DIRECT 0.1 MG/DL (0.0-0.2); BILIRUBIN,TOTAL 0.5 MG/DL (0.2-1.0); BLOOD UREA NITROGEN 23 MG/DL (7-18); CALCIUM LEVEL 9.2 MG/DL (8.5-10.1); CARBON DIOXIDE LEVEL 27 MEQ/L (21-32); CHLORIDE LEVEL 93 MEQ/L (98-107); CREATININE FOR GFR 1.38 MG/DL (0.70-1.30); GLOMERULAR FILTRATION RATE 56.7 (>56); MAGNESIUM LEVEL 1.9 MG/DL (1.8-2.4); POTASSIUM SERUM 4.1 MEQ/L (3.5-5.1); SODIUM LEVEL 130 MEQ/L (136-145); TOTAL PROTEIN 6.4 GM/DL (6.4-8.2)
[2017-07-08 14:58] LABS: GLUCOSE, FASTING 536 MG/DL (70-100)
[2017-07-08] MEDS: HumuLIN R (REGULAR) INSULIN (NovoLIN R) **100U/ML** PER UNIT IV (15:37)
[2017-07-08 17:04] LABS: BEDSIDE GLUCOSE 390 MG/DL (70-105)
[2017-07-10 09:50] LABS: BEDSIDE GLUCOSE 544 MG/DL (70-105)
== END 2017-07-08 17:57 | disposition home or self-care (01) ==
LOC: M ED 13:10
DX: E11.65 Type 2 diabetes mellitus with hyperglycemia (principal); Z91.19 Patient's noncompliance with other medical treatment and regimen; I10 Essential (primary) hypertension; J44.9 Chronic obstructive pulmonary disease, unspecified; E78.5 Hyperlipidemia, unspecified; G62.9 Polyneuropathy, unspecified; F43.10 Post-traumatic stress disorder, unspecified; F33.9 Major depressive disorder, recurrent, unspecified; G47.33 Obstructive sleep apnea (adult) (pediatric); Z86.14 Personal history of Methicillin resistant Staphylococcus aureus infection; Z99.89 Dependence on other enabling machines and devices; Z79.899 Other long term (current) drug therapy; Z79.4 Long term (current) use of insulin; Z79.01 Long term (current) use of anticoagulants; Z88.8 Allergy status to other drugs, medicaments and biological substances
CPT/HCPCS: 83735

== ENCOUNTER 2017-07-09 16:44 | Emergency (ER) | payer MEDICARE, MEDICAID ==
[2017-07-09] MEDS: NS 1,000 ML IV ×2 (18:07)
[2017-07-09 18:13] LABS: BEDSIDE GLUCOSE 534 MG/DL (70-105)
[2017-07-09] MEDS: HumuLIN R (REGULAR) INSULIN (NovoLIN R) **100U/ML** PER UNIT IV ×2 (18:15)
[2017-07-09 18:21] LABS: BASO # 0.1 10^3/uL (0.0-0.2); BASO % 0.9 % (0.0-1.0); EOS # 0.4 10^3/uL (0.0-0.50); EOS % 5.8 % (0.0-3.0); HEMATOCRIT 39.8 % (42.0-52.0); HEMOGLOBIN 13.1 g/dl (14.0-18.0); IMMATURE GRANULOCYTE % 1.7 % (0-3.0); LYMPH # 1.9 10^3/uL (1.5-4.5); LYMPH % 25.2 % (24.0-44.0); MEAN CORPUSCULAR HEMOGLOBIN 27.5 pg (27.0-33.0); MEAN CORPUSCULAR HGB CONC 32.9 g/dl (32.0-36.5); MEAN CORPUSCULAR VOLUME 83.6 fl (80.0-96.0); MONO # 0.5 10^3/uL (0.0-0.8); MONO % 5.9 % (0.0-5.0); NEUTROPHILS # 4.6 10^3/uL (1.8-7.7); NEUTROPHILS % 60.5 % (36.0-66.0); PLATELET COUNT, AUTOMATED 396 10^3/uL (150-450); RED BLOOD COUNT 4.76 10^6/uL (4.30-6.10); RED CELL DISTRIBUTION WIDTH 17.4 % (11.5-14.5); WHITE BLOOD COUNT 7.6 10^3/uL (4.0-10.0)
[2017-07-09 18:24] LABS: APPEARANCE, URINE CLEAR (CLEAR); BACTERIA, URINE AUTO NEGATIVE (NEGATIVE); BILIRUBIN, URINE AUTO NEGATIVE (NEGATIVE); BLOOD, URINE BLOOD NEGATIVE (NEGATIVE); COLOR, URINE STRAW (YELLOW); GLUCOSE, URINE (UA) AUTO 3+ mg/dL (NEGATIVE); KETONE, URINE AUTO NEGATIVE (NEGATIVE); LEUKOCYTE ESTERASE, URINE AUTO NEGATIVE (NEGATIVE); NITRITE, URINE AUTO NEGATIVE (NEGATIVE); PROTEIN, URINE AUTO NEGATIVE (NEGATIVE); RBC, URINE AUTO 0 /HPF (0-3); SPECIFIC GRAVITY URINE AUTO 1.014 (1.002-1.035); SQUAMOUS EPITHELIAL CELL UR AU 0 /HPF (0-6); UROBILINOGEN, URINE AUTO 0.2 mg/dL (0.0-2.0); WBC, URINE AUTO 0 /HPF (0-3)
[2017-07-09 18:28] LABS: VENOUS BASE EXCESS -6.1 (-2.0-2.0); VENOUS HCO3 18.4 MEQ/L (23.0-27.0); VENOUS O2 SATURATION 95.7 % (60.0-80.0); VENOUS PARTIAL PRESSURE CO2 33.7 mmHg (38.0-50.0); VENOUS PARTIAL PRESSURE O2 80.4 mmHg (30.0-50.0); VENOUS PH 7.356 UNITS (7.330-7.430); VENOUS STANDARD HCO3 19.5 MEQ/L; VENOUS TOTAL CO2 19.5 MEQ/L (24.0-28.0)
[2017-07-09 18:31] LABS: INR 1.07; PROTHROMBIN TIME 14.1 SECONDS (12.4-14.5)
[2017-07-09 18:47] LABS: ACETONE/KETONE 1.61 MG/DL (<2.81); ANION GAP 6 MEQ/L (8-16); BLOOD UREA NITROGEN 17 MG/DL (7-18); CALCIUM LEVEL 9.4 MG/DL (8.5-10.1); CARBON DIOXIDE LEVEL 28 MEQ/L (21-32); CHLORIDE LEVEL 97 MEQ/L (98-107); CREATININE FOR GFR 1.35 MG/DL (0.70-1.30); GLOMERULAR FILTRATION RATE 58.2 (>56); POTASSIUM SERUM 4.2 MEQ/L (3.5-5.1); SODIUM LEVEL 131 MEQ/L (136-145)
[2017-07-09 18:50] LABS: GLUCOSE, FASTING 499 MG/DL (70-100)
[2017-07-09 19:13] LABS: BEDSIDE GLUCOSE 298 MG/DL (70-105)
[2017-07-09 20:16] LABS: BEDSIDE GLUCOSE 357 MG/DL (70-105)
[2017-07-09] MEDS: HumaLOG INSULIN (NovoLOG) PER UNIT SC ×2 (20:24)
[2017-07-10 09:50] LABS: BEDSIDE GLUCOSE 500 MG/DL (70-105)
[2017-07-10 09:53] LABS: BEDSIDE GLUCOSE 429 MG/DL (70-105)
[2017-07-10 09:53] LABS: BEDSIDE GLUCOSE 371 MG/DL (70-105)
== END 2017-07-09 21:45 | disposition home or self-care (01) ==
LOC: M ED 16:44
DX: E11.65 Type 2 diabetes mellitus with hyperglycemia (principal); R79.1 Abnormal coagulation profile; Z79.899 Other long term (current) drug therapy; Z79.1 Long term (current) use of non-steroidal anti-inflammatories (NSAID); Z79.01 Long term (current) use of anticoagulants; Z88.8 Allergy status to other drugs, medicaments and biological substances; Z87.891 Personal history of nicotine dependence
CPT/HCPCS: 82803

== ENCOUNTER 2017-07-15 15:46 | Inpatient (IN) | payer MEDICARE, MEDICAID ==
[2017-07-15] MEDS: ACETAMINOPHEN TAB 650MG DOSE (2X325MG) PO (17:35)
[2017-07-15 17:44] LABS: BASO # 0.1 10^3/uL (0.0-0.2); BASO % 0.5 % (0.0-1.0); EOS # 0.2 10^3/uL (0.0-0.50); HEMATOCRIT 40.1 % (42.0-52.0); HEMOGLOBIN 12.9 g/dl (14.0-18.0); IMMATURE GRANULOCYTE % 1.3 % (0-3.0); LYMPH # 1.3 10^3/uL (1.5-4.5); LYMPH % 11.1 % (24.0-44.0); MEAN CORPUSCULAR HEMOGLOBIN 27.4 pg (27.0-33.0); MEAN CORPUSCULAR HGB CONC 32.2 g/dl (32.0-36.5); MEAN CORPUSCULAR VOLUME 85.1 fl (80.0-96.0); MONO # 0.9 10^3/uL (0.0-0.8); NEUTROPHILS # 8.9 10^3/uL (1.8-7.7); NEUTROPHILS % 77.1 % (36.0-66.0); PLATELET COUNT, AUTOMATED 457 10^3/uL (150-450); RED BLOOD COUNT 4.71 10^6/uL (4.30-6.10); RED CELL DISTRIBUTION WIDTH 17.6 % (11.5-14.5); WHITE BLOOD COUNT 11.6 10^3/uL (4.0-10.0)
[2017-07-15 18:05] LABS: ANION GAP 8 MEQ/L (8-16); BLOOD UREA NITROGEN 18 MG/DL (7-18); CALCIUM LEVEL 9.5 MG/DL (8.5-10.1); CARBON DIOXIDE LEVEL 25 MEQ/L (21-32); CHLORIDE LEVEL 105 MEQ/L (98-107); CREATININE FOR GFR 1.27 MG/DL (0.70-1.30); GLOMERULAR FILTRATION RATE > 60.0 (>56); GLUCOSE, FASTING 284 MG/DL (70-100); POTASSIUM SERUM 4.8 MEQ/L (3.5-5.1); SODIUM LEVEL 138 MEQ/L (136-145)
[2017-07-15] MEDS ORDERED: ONDANSETRON 4MG/2ML VIAL (J2405) IV (20:00)
[2017-07-15] MEDS ORDERED: GLUCAGON FOR INJ 1 MG VIAL (J1610) SC (20:00)
[2017-07-15] MEDS ORDERED: HEPARIN SOD (PORCINE) 5000 UNITS/ML VIAL SC (20:00)
[2017-07-15] MEDS ORDERED: GLUCOSE 4 GM CHEW TABLET PO (20:00)
[2017-07-15] MEDS ORDERED: DEXTROSE 50% 50 ML SYRINGE IV (20:00)
[2017-07-15] MEDS: oxyCODONE 5MG TAB PO (20:25)
[2017-07-15 20:38] LABS: BEDSIDE GLUCOSE 320 MG/DL (70-105)
[2017-07-15 21:22] LABS: INR 1.18; PROTHROMBIN TIME 15.2 SECONDS (12.4-14.5)
[2017-07-15] MEDS: HumaLOG INSULIN (NovoLOG) PER UNIT SC (22:00)
[2017-07-15] MEDS: PIPERACILLIN/TAZOBACTAM SOD 3.375 GM in APPROPRIATE DILUENT 1 EA IV (22:00)
[2017-07-15] MEDS: CARVedilol 12.5 MG TAB PO (22:01)
[2017-07-15] MEDS: VITAMIN D 1,000 INTERNATIONAL UNITS TABLET PO (22:01)
[2017-07-15] MEDS: oxyCODONE 20 MG CR TAB PO (22:01)
[2017-07-15] MEDS: FAMOTIDINE 20 MG TAB PO (22:01)
[2017-07-15] MEDS: AMITRIPTYLINE 25 MG TAB PO (22:01)
[2017-07-15] MEDS: amLODIPine 5 MG TAB PO (22:01)
[2017-07-15] MEDS: ATORVASTATIN 10 MG TAB PO (22:01)
[2017-07-15] MEDS: **hydrALAZINE HCL** 25 MG TAB PO (22:01)
[2017-07-15] MEDS: WARFARIN SOD 5 MG TAB PO ×2 (22:37→23:32)
[2017-07-15] MEDS: VANCOMYCIN HCL 1,000 MG, VIAL MATE ADAPTER 1 EACH in D5W 250 ML IV (22:37)
[2017-07-16] MEDS: VANCOMYCIN HCL 1,000 MG, VIAL MATE ADAPTER 1 EACH in D5W 250 ML IV ×3 (00:17→18:32)
[2017-07-16] MEDS: PIPERACILLIN/TAZOBACTAM SOD 3.375 GM in APPROPRIATE DILUENT 1 EA IV ×4 (02:54→21:04)
[2017-07-16] MEDS: oxyCODONE 5MG TAB PO ×4 (02:55→18:32)
[2017-07-16 06:17] LABS: HEMATOCRIT 36.6 % (42.0-52.0); HEMOGLOBIN 11.6 g/dl (14.0-18.0); MEAN CORPUSCULAR HGB CONC 31.7 g/dl (32.0-36.5); MEAN CORPUSCULAR VOLUME 85.3 fl (80.0-96.0); PLATELET COUNT, AUTOMATED 394 10^3/uL (150-450); RED BLOOD COUNT 4.29 10^6/uL (4.30-6.10); RED CELL DISTRIBUTION WIDTH 17.8 % (11.5-14.5); WHITE BLOOD COUNT 8.2 10^3/uL (4.0-10.0)
[2017-07-16 06:25] LABS: INR 1.29; PROTHROMBIN TIME 16.4 SECONDS (12.4-14.5)
[2017-07-16 06:37] LABS: ALBUMIN 2.7 GM/DL (3.2-5.2); ALBUMIN/GLOBULIN RATIO 0.79 (1.00-1.93); ALKALINE PHOSPHATASE 88 U/L (45-117); ALT/SGPT 13 U/L (12-78); ANION GAP 7 MEQ/L (8-16); AST/SGOT 7 U/L (7-37); BILIRUBIN,TOTAL 0.7 MG/DL (0.2-1.0); BLOOD UREA NITROGEN 24 MG/DL (7-18); CARBON DIOXIDE LEVEL 28 MEQ/L (21-32); CHLORIDE LEVEL 102 MEQ/L (98-107); CREATININE FOR GFR 1.32 MG/DL (0.70-1.30); GLOMERULAR FILTRATION RATE 59.7 (>56); GLUCOSE, FASTING 341 MG/DL (70-100); MAGNESIUM LEVEL 1.7 MG/DL (1.8-2.4); POTASSIUM SERUM 3.9 MEQ/L (3.5-5.1); SODIUM LEVEL 137 MEQ/L (136-145); TOTAL PROTEIN 6.1 GM/DL (6.4-8.2)
[2017-07-16] MEDS: VITAMIN D 1,000 INTERNATIONAL UNITS TABLET PO ×2 (08:46→21:02)
[2017-07-16] MEDS: CARVedilol 12.5 MG TAB PO ×2 (08:46→21:03)
[2017-07-16] MEDS: amLODIPine 5 MG TAB PO ×2 (08:47→21:02)
[2017-07-16] MEDS: MULTIVITAMINS/MINERALS THERAP 1 TAB PO (08:47)
[2017-07-16] MEDS: OMEPRAZOLE 20 MG CAP PO (08:47)
[2017-07-16] MEDS: FAMOTIDINE 20 MG TAB PO ×2 (08:47→21:02)
[2017-07-16] MEDS: buPROPion **XL** TABLET 150MG (WELLBUTRIN XL) PO (08:47)
[2017-07-16] MEDS: **hydrALAZINE HCL** 25 MG TAB PO ×3 (08:48→21:03)
[2017-07-16] MEDS: FUROSEMIDE 20 MG TAB PO (08:48)
[2017-07-16] MEDS: MAG SULF 1GM/100ML (MAG RUN) 1 GM in APPROPRIATE DILUENT 1 EA IV ×2 (08:48→08:49)
[2017-07-16] MEDS: HumaLOG INSULIN (NovoLOG) PER UNIT SC ×4 (08:49→21:44)
[2017-07-16] MEDS: LEVEMIR (INSULIN DETEMIR) 1 UNITS/0.01ML SC (08:50)
[2017-07-16] MEDS: oxyCODONE 20 MG CR TAB PO ×2 (08:55→21:04)
[2017-07-16 12:25] LABS: BEDSIDE GLUCOSE 539 MG/DL (70-105)
[2017-07-16 15:34] LABS: BEDSIDE GLUCOSE 436 MG/DL (70-105)
[2017-07-16 15:34] LABS: BEDSIDE GLUCOSE 415 MG/DL (70-105)
[2017-07-16 16:03] LABS: ERYTHROCYTE SEDIMENTATION RATE 49 mm/hr (0-20)
[2017-07-16] MEDS: WARFARIN SOD 5 MG TAB PO (16:29)
[2017-07-16 17:21] LABS: BEDSIDE GLUCOSE 374 MG/DL (70-105)
[2017-07-16 20:14] LABS: BEDSIDE GLUCOSE 522 MG/DL (70-105)
[2017-07-16] MEDS: ATORVASTATIN 10 MG TAB PO (21:03)
[2017-07-16] MEDS: AMITRIPTYLINE 25 MG TAB PO (21:03)
[2017-07-16 21:31] LABS: BEDSIDE GLUCOSE CONFIRMATION 481 MG/DL (LESS THAN 200)
[2017-07-16 22:55] LABS: BEDSIDE GLUCOSE 373 MG/DL (70-105)
[2017-07-17] MEDS: oxyCODONE 5MG TAB PO ×4 (00:09→18:59)
[2017-07-17] MEDS: PIPERACILLIN/TAZOBACTAM SOD 3.375 GM in APPROPRIATE DILUENT 1 EA IV ×4 (02:30→23:00)
[2017-07-17] MEDS: VANCOMYCIN HCL 1,000 MG, VIAL MATE ADAPTER 1 EACH in D5W 250 ML IV ×2 (06:14→19:48)
[2017-07-17 06:31] LABS: HEMATOCRIT 36.8 % (42.0-52.0); HEMOGLOBIN 11.8 g/dl (14.0-18.0); MEAN CORPUSCULAR HEMOGLOBIN 27.5 pg (27.0-33.0); MEAN CORPUSCULAR HGB CONC 32.1 g/dl (32.0-36.5); MEAN CORPUSCULAR VOLUME 85.8 fl (80.0-96.0); PLATELET COUNT, AUTOMATED 399 10^3/uL (150-450); RED BLOOD COUNT 4.29 10^6/uL (4.30-6.10); RED CELL DISTRIBUTION WIDTH 17.2 % (11.5-14.5); WHITE BLOOD COUNT 7.8 10^3/uL (4.0-10.0)
[2017-07-17 06:33] LABS: INR 1.08; PROTHROMBIN TIME 14.2 SECONDS (12.4-14.5)
[2017-07-17 06:44] LABS: ALBUMIN 2.8 GM/DL (3.2-5.2); ALKALINE PHOSPHATASE 90 U/L (45-117); ALT/SGPT 11 U/L (12-78); ANION GAP 8 MEQ/L (8-16); AST/SGOT 9 U/L (7-37); BILIRUBIN,TOTAL 0.5 MG/DL (0.2-1.0); BLOOD UREA NITROGEN 18 MG/DL (7-18); CALCIUM LEVEL 9.3 MG/DL (8.5-10.1); CARBON DIOXIDE LEVEL 28 MEQ/L (21-32); CHLORIDE LEVEL 102 MEQ/L (98-107); CREATININE FOR GFR 1.28 MG/DL (0.70-1.30); GLOMERULAR FILTRATION RATE > 60.0 (>56); GLUCOSE, FASTING 346 MG/DL (70-100); MAGNESIUM LEVEL 1.6 MG/DL (1.8-2.4); POTASSIUM SERUM 4.3 MEQ/L (3.5-5.1); SODIUM LEVEL 138 MEQ/L (136-145); TOTAL PROTEIN 6.3 GM/DL (6.4-8.2)
[2017-07-17] MEDS: oxyCODONE 20 MG CR TAB PO ×2 (08:49→21:01)
[2017-07-17] MEDS: VITAMIN D 1,000 INTERNATIONAL UNITS TABLET PO ×2 (08:50→21:02)
[2017-07-17] MEDS: OMEPRAZOLE 20 MG CAP PO (08:50)
[2017-07-17] MEDS: CARVedilol 12.5 MG TAB PO ×2 (08:50→21:03)
[2017-07-17] MEDS: FAMOTIDINE 20 MG TAB PO ×2 (08:50→21:03)
[2017-07-17] MEDS: amLODIPine 5 MG TAB PO ×2 (08:50→21:03)
[2017-07-17] MEDS: MULTIVITAMINS/MINERALS THERAP 1 TAB PO (08:50)
[2017-07-17] MEDS: **hydrALAZINE HCL** 25 MG TAB PO ×3 (08:51→21:03)
[2017-07-17] MEDS: FUROSEMIDE 20 MG TAB PO (08:51)
[2017-07-17] MEDS: buPROPion **XL** TABLET 150MG (WELLBUTRIN XL) PO (08:51)
[2017-07-17] MEDS: HumaLOG INSULIN (NovoLOG) PER UNIT SC ×4 (08:53→21:00)
[2017-07-17] MEDS: LEVEMIR (INSULIN DETEMIR) 1 UNITS/0.01ML SC (08:53)
[2017-07-17 11:48] LABS: BEDSIDE GLUCOSE 273 MG/DL (70-105)
[2017-07-17] MEDS: MAG SULF 1GM/100ML (MAG RUN) 1 GM in APPROPRIATE DILUENT 1 EA IV ×2 (14:47→15:00)
[2017-07-17] MEDS ORDERED: LIDOCAINE 2% INJ 100 MG/5 ML SDV (FOR ANES.) As Ordered (16:34)
[2017-07-17] MEDS ORDERED: MIDAZOLAM INJ 2 MG/2 ML VIAL (J2250) As Ordered (16:34)
[2017-07-17] MEDS ORDERED: fentaNYL 100 MCG/2 ML INJECTION (J3010) As Ordered ×2 (16:34→18:26)
[2017-07-17] MEDS ORDERED: PROPOFOL 200 MG/20 ML VIAL As Ordered ×2 (16:34→17:31)
[2017-07-17] MEDS: LIDOCAINE 1% MDV 20ML VIAL As Ordered (17:16)
[2017-07-17] MEDS: BUPIVACAINE HCL 0.5% 10 ML VIAL As Ordered (17:16)
[2017-07-17] MEDS ORDERED: KETAMINE HCL 200 MG/20 ML VIAL As Ordered (17:28)
[2017-07-17] MEDS: VANCOMYCIN 1000 MG/20 ML VIAL (J3370) As Ordered ×2 (17:36)
[2017-07-17] MEDS ORDERED: ONDANSETRON 4MG/2ML VIAL (J2405) As Ordered (17:41)
[2017-07-17] MEDS ORDERED: ONDANSETRON 4MG/2ML VIAL (J2405) IV (18:15)
[2017-07-17] MEDS: LR 1,000 ML IV (18:15)
[2017-07-17] MEDS: NORCO, ANEXSIA 5/325MG TABLET (HYDROcodone/ACETAMINOPHEN) PO (18:25)
[2017-07-17] MEDS: fentaNYL 100 MCG/2 ML INJECTION (J3010) IV (18:25)
[2017-07-17] MEDS ORDERED: NORCO, ANEXSIA 5/325MG TABLET (HYDROcodone/ACETAMINOPHEN) As Ordered (18:26)
[2017-07-17] MEDS: WARFARIN SOD 5 MG TAB PO (18:57)
[2017-07-17 18:59] LABS: BEDSIDE GLUCOSE 174 MG/DL (70-105)
[2017-07-17 19:32] LABS: VANCOMYCIN LEVEL TROUGH 13.1 UG/ML (10.0-20.0)
[2017-07-17] MEDS: ATORVASTATIN 10 MG TAB PO (21:02)
[2017-07-17] MEDS: AMITRIPTYLINE 25 MG TAB PO (21:04)
[2017-07-17 21:09] LABS: BEDSIDE GLUCOSE 222 MG/DL (70-105)
[2017-07-18] MEDS: PIPERACILLIN/TAZOBACTAM SOD 3.375 GM in APPROPRIATE DILUENT 1 EA IV ×4 (03:02→21:25)
[2017-07-18] MEDS: oxyCODONE 5MG TAB PO ×4 (03:03→19:31)
[2017-07-18 05:35] LABS: HEMATOCRIT 36.7 % (42.0-52.0); HEMOGLOBIN 11.6 g/dl (14.0-18.0); MEAN CORPUSCULAR HEMOGLOBIN 27.4 pg (27.0-33.0); MEAN CORPUSCULAR HGB CONC 31.6 g/dl (32.0-36.5); MEAN CORPUSCULAR VOLUME 86.8 fl (80.0-96.0); PLATELET COUNT, AUTOMATED 424 10^3/uL (150-450); RED BLOOD COUNT 4.23 10^6/uL (4.30-6.10); RED CELL DISTRIBUTION WIDTH 17.4 % (11.5-14.5); WHITE BLOOD COUNT 6.9 10^3/uL (4.0-10.0)
[2017-07-18 05:44] LABS: INR 1.06; PROTHROMBIN TIME 13.9 SECONDS (12.4-14.5)
[2017-07-18] MEDS: VANCOMYCIN HCL 1,000 MG, VIAL MATE ADAPTER 1 EACH in D5W 250 ML IV ×2 (05:50→17:40)
[2017-07-18 05:54] LABS: ALBUMIN 2.7 GM/DL (3.2-5.2); ALBUMIN/GLOBULIN RATIO 0.79 (1.00-1.93); ALKALINE PHOSPHATASE 89 U/L (45-117); ALT/SGPT 11 U/L (12-78); ANION GAP 6 MEQ/L (8-16); AST/SGOT 4 U/L (7-37); BILIRUBIN,TOTAL 0.2 MG/DL (0.2-1.0); BLOOD UREA NITROGEN 15 MG/DL (7-18); C REACTIVE PROTEIN QUANTITATIV 4.21 MG/DL (0.00-0.30); CALCIUM LEVEL 9.5 MG/DL (8.5-10.1); CARBON DIOXIDE LEVEL 31 MEQ/L (21-32); CHLORIDE LEVEL 102 MEQ/L (98-107); CREATININE FOR GFR 1.23 MG/DL (0.70-1.30); GLOMERULAR FILTRATION RATE > 60.0 (>56); MAGNESIUM LEVEL 1.7 MG/DL (1.8-2.4); POTASSIUM SERUM 4.3 MEQ/L (3.5-5.1); SODIUM LEVEL 139 MEQ/L (136-145); TOTAL PROTEIN 6.1 GM/DL (6.4-8.2)
[2017-07-18 06:06] LABS: GLUCOSE, FASTING 407 MG/DL (70-100)
[2017-07-18] MEDS: HumaLOG INSULIN (NovoLOG) PER UNIT SC ×4 (06:59→21:24)
[2017-07-18] MEDS: LEVEMIR (INSULIN DETEMIR) 1 UNITS/0.01ML SC ×3 (06:59→21:25)
[2017-07-18] MEDS: FAMOTIDINE 20 MG TAB PO ×2 (10:10→21:27)
[2017-07-18] MEDS: **hydrALAZINE HCL** 25 MG TAB PO ×3 (10:11→21:26)
[2017-07-18] MEDS: MULTIVITAMINS/MINERALS THERAP 1 TAB PO (10:11)
[2017-07-18] MEDS: buPROPion **XL** TABLET 150MG (WELLBUTRIN XL) PO (10:11)
[2017-07-18] MEDS: FUROSEMIDE 20 MG TAB PO (10:11)
[2017-07-18] MEDS: OMEPRAZOLE 20 MG CAP PO (10:12)
[2017-07-18] MEDS: amLODIPine 5 MG TAB PO ×2 (10:12→21:27)
[2017-07-18] MEDS: CARVedilol 12.5 MG TAB PO ×2 (10:12→21:28)
[2017-07-18] MEDS: VITAMIN D 1,000 INTERNATIONAL UNITS TABLET PO ×2 (10:18→21:26)
[2017-07-18] MEDS: oxyCODONE 20 MG CR TAB PO ×2 (10:38→21:23)
[2017-07-18 11:57] LABS: BEDSIDE GLUCOSE 210 MG/DL (70-105)
[2017-07-18] MEDS: MAG SULF 1GM/100ML (MAG RUN) 1 GM in APPROPRIATE DILUENT 1 EA IV ×2 (13:22→14:35)
[2017-07-18] MEDS: ENOXAPARIN 150 MG/ML SYR (J1650) SC (15:11)
[2017-07-18 15:26] LABS: BEDSIDE GLUCOSE 357 MG/DL (70-105)
[2017-07-18] MEDS: WARFARIN SOD 5 MG TAB PO (16:16)
[2017-07-18] MEDS: WARFARIN SOD 7.5 MG TAB PO (16:16)
[2017-07-18 17:26] LABS: BEDSIDE GLUCOSE 391 MG/DL (70-105)
[2017-07-18] MEDS: ATORVASTATIN 10 MG TAB PO (21:27)
[2017-07-18] MEDS: AMITRIPTYLINE 25 MG TAB PO (21:27)
[2017-07-19] MEDS: ENOXAPARIN 150 MG/ML SYR (J1650) SC ×2 (00:59→12:09)
[2017-07-19] MEDS: oxyCODONE 5MG TAB PO ×5 (01:09→20:20)
[2017-07-19] MEDS: PIPERACILLIN/TAZOBACTAM SOD 3.375 GM in APPROPRIATE DILUENT 1 EA IV ×4 (02:38→20:12)
[2017-07-19] MEDS: VANCOMYCIN HCL 1,000 MG, VIAL MATE ADAPTER 1 EACH in D5W 250 ML IV ×2 (05:29→17:29)
[2017-07-19 05:41] LABS: BEDSIDE GLUCOSE 369 MG/DL (70-105)
[2017-07-19 06:05] LABS: HEMATOCRIT 37.1 % (42.0-52.0); HEMOGLOBIN 11.8 g/dl (14.0-18.0); MEAN CORPUSCULAR HEMOGLOBIN 27.1 pg (27.0-33.0); MEAN CORPUSCULAR HGB CONC 31.8 g/dl (32.0-36.5); MEAN CORPUSCULAR VOLUME 85.3 fl (80.0-96.0); PLATELET COUNT, AUTOMATED 447 10^3/uL (150-450); RED BLOOD COUNT 4.35 10^6/uL (4.30-6.10); RED CELL DISTRIBUTION WIDTH 17.1 % (11.5-14.5); WHITE BLOOD COUNT 6.6 10^3/uL (4.0-10.0)
[2017-07-19 06:16] LABS: INR 1.26; PROTHROMBIN TIME 16.1 SECONDS (12.4-14.5)
[2017-07-19 06:30] LABS: ALBUMIN 2.7 GM/DL (3.2-5.2); ALBUMIN/GLOBULIN RATIO 0.79 (1.00-1.93); ALKALINE PHOSPHATASE 85 U/L (45-117); ALT/SGPT 12 U/L (12-78); ANION GAP 6 MEQ/L (8-16); AST/SGOT 8 U/L (7-37); BILIRUBIN,TOTAL 0.3 MG/DL (0.2-1.0); BLOOD UREA NITROGEN 13 MG/DL (7-18); CALCIUM LEVEL 9.5 MG/DL (8.5-10.1); CARBON DIOXIDE LEVEL 30 MEQ/L (21-32); CHLORIDE LEVEL 104 MEQ/L (98-107); CREATININE FOR GFR 1.14 MG/DL (0.70-1.30); GLOMERULAR FILTRATION RATE > 60.0 (>56); GLUCOSE, FASTING 241 MG/DL (70-100); MAGNESIUM LEVEL 1.6 MG/DL (1.8-2.4); POTASSIUM SERUM 3.9 MEQ/L (3.5-5.1); SODIUM LEVEL 140 MEQ/L (136-145); TOTAL PROTEIN 6.1 GM/DL (6.4-8.2)
[2017-07-19 07:15] LABS: PHOSPHORUS LEVEL 3.3 MG/DL (2.5-4.9)
[2017-07-19 07:37] LABS: ERYTHROCYTE SEDIMENTATION RATE 41 mm/hr (0-20)
[2017-07-19] MEDS: MAG SULF 1GM/100ML (MAG RUN) 1 GM in APPROPRIATE DILUENT 1 EA IV ×2 (07:45→10:13)
[2017-07-19] MEDS: LEVEMIR (INSULIN DETEMIR) 1 UNITS/0.01ML SC ×2 (07:46→20:13)
[2017-07-19] MEDS: HumaLOG INSULIN (NovoLOG) PER UNIT SC ×4 (07:46→20:13)
[2017-07-19] MEDS: FAMOTIDINE 20 MG TAB PO ×2 (07:47→20:11)
[2017-07-19] MEDS: oxyCODONE 20 MG CR TAB PO ×2 (07:47→20:10)
[2017-07-19] MEDS: VITAMIN D 1,000 INTERNATIONAL UNITS TABLET PO ×2 (07:47→20:09)
[2017-07-19] MEDS: MULTIVITAMINS/MINERALS THERAP 1 TAB PO (07:47)
[2017-07-19] MEDS: buPROPion **XL** TABLET 150MG (WELLBUTRIN XL) PO (07:48)
[2017-07-19] MEDS: OMEPRAZOLE 20 MG CAP PO (07:48)
[2017-07-19] MEDS: FUROSEMIDE 20 MG TAB PO (07:48)
[2017-07-19] MEDS: amLODIPine 5 MG TAB PO ×2 (07:53→20:12)
[2017-07-19] MEDS: **hydrALAZINE HCL** 25 MG TAB PO ×3 (07:54→20:11)
[2017-07-19] MEDS: CARVedilol 12.5 MG TAB PO ×2 (07:54→20:12)
[2017-07-19 11:50] LABS: BEDSIDE GLUCOSE 299 MG/DL (70-105)
[2017-07-19] MEDS: MAGNESIUM OXIDE 400 MG TAB (MAG-OX) PO ×2 (12:09→20:10)
[2017-07-19 16:56] LABS: BEDSIDE GLUCOSE 275 MG/DL (70-105)
[2017-07-19] MEDS: WARFARIN SOD 5 MG TAB PO (17:29)
[2017-07-19] MEDS: WARFARIN SOD 7.5 MG TAB PO (17:29)
[2017-07-19] MEDS: AMITRIPTYLINE 25 MG TAB PO (20:10)
[2017-07-19] MEDS: ATORVASTATIN 10 MG TAB PO (20:11)
[2017-07-19 21:19] LABS: BEDSIDE GLUCOSE 299 MG/DL (70-105)
[2017-07-20] MEDS: oxyCODONE 5MG TAB PO ×2 (00:40→05:34)
[2017-07-20] MEDS: ENOXAPARIN 150 MG/ML SYR (J1650) SC ×2 (00:41→12:13)
[2017-07-20] MEDS: PIPERACILLIN/TAZOBACTAM SOD 3.375 GM in APPROPRIATE DILUENT 1 EA IV ×4 (02:28→21:01)
[2017-07-20] MEDS: VANCOMYCIN HCL 1,000 MG, VIAL MATE ADAPTER 1 EACH in D5W 250 ML IV ×2 (05:33→17:37)
[2017-07-20 06:21] LABS: HEMATOCRIT 36.6 % (42.0-52.0); HEMOGLOBIN 11.7 g/dl (14.0-18.0); MEAN CORPUSCULAR HEMOGLOBIN 27.2 pg (27.0-33.0); MEAN CORPUSCULAR VOLUME 85.1 fl (80.0-96.0); PLATELET COUNT, AUTOMATED 449 10^3/uL (150-450); RED CELL DISTRIBUTION WIDTH 17.2 % (11.5-14.5); WHITE BLOOD COUNT 6.7 10^3/uL (4.0-10.0)
[2017-07-20 06:31] LABS: INR 1.34; PROTHROMBIN TIME 16.9 SECONDS (12.4-14.5)
[2017-07-20 06:40] LABS: ALBUMIN 2.7 GM/DL (3.2-5.2); ALBUMIN/GLOBULIN RATIO 0.82 (1.00-1.93); ALKALINE PHOSPHATASE 78 U/L (45-117); ALT/SGPT 13 U/L (12-78); ANION GAP 4 MEQ/L (8-16); AST/SGOT 7 U/L (7-37); BILIRUBIN,TOTAL 0.2 MG/DL (0.2-1.0); BLOOD UREA NITROGEN 14 MG/DL (7-18); C REACTIVE PROTEIN QUANTITATIV 1.39 MG/DL (0.00-0.30); CALCIUM LEVEL 9.2 MG/DL (8.5-10.1); CARBON DIOXIDE LEVEL 32 MEQ/L (21-32); CHLORIDE LEVEL 100 MEQ/L (98-107); GLOMERULAR FILTRATION RATE > 60.0 (>56); GLUCOSE, FASTING 342 MG/DL (70-100); MAGNESIUM LEVEL 1.7 MG/DL (1.8-2.4); POTASSIUM SERUM 4.1 MEQ/L (3.5-5.1); SODIUM LEVEL 136 MEQ/L (136-145)
[2017-07-20] MEDS: LEVEMIR (INSULIN DETEMIR) 1 UNITS/0.01ML SC ×2 (07:41→21:02)
[2017-07-20] MEDS: HumaLOG INSULIN (NovoLOG) PER UNIT SC ×4 (07:41→21:03)
[2017-07-20] MEDS: MULTIVITAMINS/MINERALS THERAP 1 TAB PO (07:42)
[2017-07-20] MEDS: CARVedilol 12.5 MG TAB PO ×2 (07:42→21:01)
[2017-07-20] MEDS: VITAMIN D 1,000 INTERNATIONAL UNITS TABLET PO ×2 (07:42→21:01)
[2017-07-20] MEDS: FAMOTIDINE 20 MG TAB PO ×2 (07:43→21:02)
[2017-07-20] MEDS: amLODIPine 5 MG TAB PO ×2 (07:43→21:00)
[2017-07-20] MEDS: buPROPion **XL** TABLET 150MG (WELLBUTRIN XL) PO (07:43)
[2017-07-20] MEDS: OMEPRAZOLE 20 MG CAP PO (07:43)
[2017-07-20] MEDS: MAGNESIUM OXIDE 400 MG TAB (MAG-OX) PO ×2 (07:43→21:01)
[2017-07-20] MEDS: **hydrALAZINE HCL** 25 MG TAB PO ×3 (07:43→21:00)
[2017-07-20] MEDS: FUROSEMIDE 20 MG TAB PO (07:44)
[2017-07-20 07:55] LABS: PHOSPHORUS LEVEL 3.2 MG/DL (2.5-4.9)
[2017-07-20] MEDS: oxyCODONE 20 MG CR TAB PO ×2 (08:32→21:44)
[2017-07-20 12:26] LABS: BEDSIDE GLUCOSE 293 MG/DL (70-105)
[2017-07-20] MEDS: WARFARIN SOD 5 MG TAB PO (17:36)
[2017-07-20] MEDS: WARFARIN SOD 7.5 MG TAB PO (17:36)
[2017-07-20 17:37] LABS: VANCOMYCIN LEVEL TROUGH 12.5 UG/ML (10.0-20.0)
[2017-07-20] MEDS: ATORVASTATIN 10 MG TAB PO (21:01)
[2017-07-20] MEDS: AMITRIPTYLINE 25 MG TAB PO (21:01)
[2017-07-20 23:41] LABS: BEDSIDE GLUCOSE 267 MG/DL (70-105)
[2017-07-20 23:42] LABS: BEDSIDE GLUCOSE 394 MG/DL (70-105)
[2017-07-21] MEDS: ENOXAPARIN 150 MG/ML SYR (J1650) SC ×2 (00:52→12:28)
[2017-07-21] MEDS: oxyCODONE 5MG TAB PO ×2 (01:02→22:45)
[2017-07-21] MEDS: PIPERACILLIN/TAZOBACTAM SOD 3.375 GM in APPROPRIATE DILUENT 1 EA IV ×4 (03:04→20:06)
[2017-07-21 05:45] LABS: HEMOGLOBIN 12.2 g/dl (14.0-18.0); MEAN CORPUSCULAR HEMOGLOBIN 27.2 pg (27.0-33.0); MEAN CORPUSCULAR HGB CONC 32.1 g/dl (32.0-36.5); MEAN CORPUSCULAR VOLUME 84.8 fl (80.0-96.0); PLATELET COUNT, AUTOMATED 439 10^3/uL (150-450); RED BLOOD COUNT 4.48 10^6/uL (4.30-6.10); RED CELL DISTRIBUTION WIDTH 16.7 % (11.5-14.5); WHITE BLOOD COUNT 6.6 10^3/uL (4.0-10.0)
[2017-07-21 06:02] LABS: INR 1.41; PROTHROMBIN TIME 17.6 SECONDS (12.4-14.5)
[2017-07-21 06:27] LABS: ALBUMIN/GLOBULIN RATIO 0.94 (1.00-1.93); ALKALINE PHOSPHATASE 79 U/L (45-117); ALT/SGPT 11 U/L (12-78); ANION GAP 4 MEQ/L (8-16); AST/SGOT 9 U/L (7-37); BILIRUBIN,TOTAL 0.2 MG/DL (0.2-1.0); BLOOD UREA NITROGEN 12 MG/DL (7-18); C REACTIVE PROTEIN QUANTITATIV 0.85 MG/DL (0.00-0.30); CALCIUM LEVEL 9.7 MG/DL (8.5-10.1); CARBON DIOXIDE LEVEL 32 MEQ/L (21-32); CHLORIDE LEVEL 103 MEQ/L (98-107); CREATININE FOR GFR 1.21 MG/DL (0.70-1.30); GLOMERULAR FILTRATION RATE > 60.0 (>56); GLUCOSE, FASTING 290 MG/DL (70-100); MAGNESIUM LEVEL 1.7 MG/DL (1.8-2.4); SODIUM LEVEL 139 MEQ/L (136-145); TOTAL PROTEIN 6.2 GM/DL (6.4-8.2)
[2017-07-21] MEDS: HumaLOG INSULIN (NovoLOG) PER UNIT SC ×4 (08:49→20:09)
[2017-07-21] MEDS: LEVEMIR (INSULIN DETEMIR) 1 UNITS/0.01ML SC ×2 (08:50→20:09)
[2017-07-21] MEDS: VITAMIN D 1,000 INTERNATIONAL UNITS TABLET PO ×2 (08:51→20:07)
[2017-07-21] MEDS: oxyCODONE 20 MG CR TAB PO ×2 (08:51→20:08)
[2017-07-21] MEDS: OMEPRAZOLE 20 MG CAP PO (08:52)
[2017-07-21] MEDS: buPROPion **XL** TABLET 150MG (WELLBUTRIN XL) PO (08:52)
[2017-07-21] MEDS: CARVedilol 12.5 MG TAB PO ×2 (08:52→20:07)
[2017-07-21] MEDS: amLODIPine 5 MG TAB PO ×2 (08:52→20:08)
[2017-07-21] MEDS: **hydrALAZINE HCL** 25 MG TAB PO ×3 (08:53→20:07)
[2017-07-21] MEDS: MAGNESIUM OXIDE 400 MG TAB (MAG-OX) PO ×2 (08:53→20:07)
[2017-07-21] MEDS: MULTIVITAMINS/MINERALS THERAP 1 TAB PO (08:53)
[2017-07-21] MEDS: FUROSEMIDE 20 MG TAB PO (08:53)
[2017-07-21] MEDS: FAMOTIDINE 20 MG TAB PO ×2 (08:53→20:08)
[2017-07-21 12:16] LABS: BEDSIDE GLUCOSE 200 MG/DL (70-105)
[2017-07-21 17:22] LABS: BEDSIDE GLUCOSE 180 MG/DL (70-105)
[2017-07-21] MEDS: WARFARIN SOD 5 MG TAB PO (18:01)
[2017-07-21] MEDS: WARFARIN SOD 7.5 MG TAB PO (18:02)
[2017-07-21] MEDS: ATORVASTATIN 10 MG TAB PO (20:07)
[2017-07-21] MEDS: AMITRIPTYLINE 25 MG TAB PO (20:08)
[2017-07-22 00:24] LABS: BEDSIDE GLUCOSE 333 MG/DL (70-105)
[2017-07-22] MEDS: ENOXAPARIN 150 MG/ML SYR (J1650) SC ×2 (00:49→12:31)
[2017-07-22] MEDS: PIPERACILLIN/TAZOBACTAM SOD 3.375 GM in APPROPRIATE DILUENT 1 EA IV ×4 (03:44→21:12)
[2017-07-22] MEDS: oxyCODONE 5MG TAB PO ×4 (03:47→21:21)
[2017-07-22 06:12] LABS: HEMATOCRIT 38.6 % (42.0-52.0); HEMOGLOBIN 12.3 g/dl (14.0-18.0); MEAN CORPUSCULAR HGB CONC 31.9 g/dl (32.0-36.5); MEAN CORPUSCULAR VOLUME 84.8 fl (80.0-96.0); PLATELET COUNT, AUTOMATED 471 10^3/uL (150-450); RED BLOOD COUNT 4.55 10^6/uL (4.30-6.10); RED CELL DISTRIBUTION WIDTH 16.8 % (11.5-14.5); WHITE BLOOD COUNT 6.8 10^3/uL (4.0-10.0)
[2017-07-22 06:29] LABS: INR 1.46; PROTHROMBIN TIME 18.1 SECONDS (12.4-14.5)
[2017-07-22 06:36] LABS: ALBUMIN/GLOBULIN RATIO 0.94 (1.00-1.93); ALKALINE PHOSPHATASE 80 U/L (45-117); ALT/SGPT 19 U/L (12-78); ANION GAP 6 MEQ/L (8-16); AST/SGOT 17 U/L (7-37); BILIRUBIN,TOTAL 0.3 MG/DL (0.2-1.0); BLOOD UREA NITROGEN 12 MG/DL (7-18); C REACTIVE PROTEIN QUANTITATIV 0.59 MG/DL (0.00-0.30); CALCIUM LEVEL 9.4 MG/DL (8.5-10.1); CARBON DIOXIDE LEVEL 31 MEQ/L (21-32); CHLORIDE LEVEL 101 MEQ/L (98-107); CREATININE FOR GFR 1.16 MG/DL (0.70-1.30); GLOMERULAR FILTRATION RATE > 60.0 (>56); GLUCOSE, FASTING 272 MG/DL (70-100); MAGNESIUM LEVEL 1.6 MG/DL (1.8-2.4); POTASSIUM SERUM 3.8 MEQ/L (3.5-5.1); SODIUM LEVEL 138 MEQ/L (136-145); TOTAL PROTEIN 6.2 GM/DL (6.4-8.2)
[2017-07-22] MEDS: HumaLOG INSULIN (NovoLOG) PER UNIT SC ×4 (07:48→21:10)
[2017-07-22] MEDS: VITAMIN D 1,000 INTERNATIONAL UNITS TABLET PO ×2 (09:38→21:12)
[2017-07-22] MEDS: OMEPRAZOLE 20 MG CAP PO (09:38)
[2017-07-22] MEDS: MULTIVITAMINS/MINERALS THERAP 1 TAB PO (09:38)
[2017-07-22] MEDS: MAGNESIUM OXIDE 400 MG TAB (MAG-OX) PO ×2 (09:39→21:07)
[2017-07-22] MEDS: CARVedilol 12.5 MG TAB PO ×2 (09:39→21:08)
[2017-07-22] MEDS: **hydrALAZINE HCL** 25 MG TAB PO ×3 (09:39→21:07)
[2017-07-22] MEDS: amLODIPine 5 MG TAB PO ×2 (09:40→21:07)
[2017-07-22] MEDS: FUROSEMIDE 20 MG TAB PO (09:40)
[2017-07-22] MEDS: buPROPion **XL** TABLET 150MG (WELLBUTRIN XL) PO (09:40)
[2017-07-22] MEDS: FAMOTIDINE 20 MG TAB PO ×2 (09:40→21:07)
[2017-07-22] MEDS: oxyCODONE 20 MG CR TAB PO ×2 (09:42→21:09)
[2017-07-22] MEDS: LEVEMIR (INSULIN DETEMIR) 1 UNITS/0.01ML SC ×2 (09:42→21:09)
[2017-07-22 16:45] LABS: BEDSIDE GLUCOSE 200 MG/DL (70-105)
[2017-07-22] MEDS: WARFARIN SOD 7.5 MG TAB PO (17:42)
[2017-07-22] MEDS: WARFARIN SOD 5 MG TAB PO (17:42)
[2017-07-22 20:37] LABS: BEDSIDE GLUCOSE 256 MG/DL (70-105)
[2017-07-22] MEDS: ATORVASTATIN 10 MG TAB PO (21:07)
[2017-07-22] MEDS: AMITRIPTYLINE 25 MG TAB PO (21:08)
[2017-07-23] MEDS: ENOXAPARIN 150 MG/ML SYR (J1650) SC ×2 (02:00→12:25)
[2017-07-23] MEDS: PIPERACILLIN/TAZOBACTAM SOD 3.375 GM in APPROPRIATE DILUENT 1 EA IV ×4 (02:00→20:50)
[2017-07-23] MEDS: oxyCODONE 5MG TAB PO ×4 (02:05→15:31)
[2017-07-23 06:55] LABS: BEDSIDE GLUCOSE 286 MG/DL (70-105)
[2017-07-23] MEDS: buPROPion **XL** TABLET 150MG (WELLBUTRIN XL) PO (08:48)
[2017-07-23] MEDS: oxyCODONE 20 MG CR TAB PO ×2 (08:49→20:53)
[2017-07-23] MEDS: OMEPRAZOLE 20 MG CAP PO (08:49)
[2017-07-23] MEDS: VITAMIN D 1,000 INTERNATIONAL UNITS TABLET PO ×2 (08:49→20:50)
[2017-07-23] MEDS: MULTIVITAMINS/MINERALS THERAP 1 TAB PO (08:49)
[2017-07-23] MEDS: FUROSEMIDE 20 MG TAB PO (08:50)
[2017-07-23] MEDS: **hydrALAZINE HCL** 25 MG TAB PO ×3 (08:50→20:51)
[2017-07-23] MEDS: FAMOTIDINE 20 MG TAB PO ×2 (08:50→20:51)
[2017-07-23] MEDS: CARVedilol 12.5 MG TAB PO ×2 (08:50→20:51)
[2017-07-23] MEDS: MAGNESIUM OXIDE 400 MG TAB (MAG-OX) PO ×2 (08:50→20:51)
[2017-07-23] MEDS: HumaLOG INSULIN (NovoLOG) PER UNIT SC ×4 (08:51→20:08)
[2017-07-23] MEDS: LEVEMIR (INSULIN DETEMIR) 1 UNITS/0.01ML SC ×2 (08:51→20:50)
[2017-07-23] MEDS: amLODIPine 5 MG TAB PO ×2 (08:51→20:52)
[2017-07-23 11:05] LABS: HEMATOCRIT 40.9 % (42.0-52.0); MEAN CORPUSCULAR HEMOGLOBIN 26.7 pg (27.0-33.0); MEAN CORPUSCULAR HGB CONC 31.8 g/dl (32.0-36.5); MEAN CORPUSCULAR VOLUME 84.2 fl (80.0-96.0); PLATELET COUNT, AUTOMATED 524 10^3/uL (150-450); RED BLOOD COUNT 4.86 10^6/uL (4.30-6.10); RED CELL DISTRIBUTION WIDTH 16.8 % (11.5-14.5); WHITE BLOOD COUNT 8.2 10^3/uL (4.0-10.0)
[2017-07-23 11:10] LABS: INR 1.49; PROTHROMBIN TIME 18.4 SECONDS (12.4-14.5)
[2017-07-23 11:21] LABS: ANION GAP 6 MEQ/L (8-16); BLOOD UREA NITROGEN 12 MG/DL (7-18); CARBON DIOXIDE LEVEL 29 MEQ/L (21-32); CHLORIDE LEVEL 103 MEQ/L (98-107); CREATININE FOR GFR 1.39 MG/DL (0.70-1.30); GLOMERULAR FILTRATION RATE 56.3 (>56); GLUCOSE, FASTING 185 MG/DL (70-100); MAGNESIUM LEVEL 1.5 MG/DL (1.8-2.4); POTASSIUM SERUM 4.6 MEQ/L (3.5-5.1); SODIUM LEVEL 138 MEQ/L (136-145)
[2017-07-23 11:52] LABS: BEDSIDE GLUCOSE 134 MG/DL (70-105)
[2017-07-23 12:28] LABS: BEDSIDE GLUCOSE 97 MG/DL (70-105)
[2017-07-23 17:20] LABS: BEDSIDE GLUCOSE 228 MG/DL (70-105)
[2017-07-23] MEDS: WARFARIN SOD 5 MG TAB PO (18:14)
[2017-07-23] MEDS: BENZOCAINE 10% 9GM TUBE (ANBESOL) TOP (19:35)
[2017-07-23 20:30] LABS: BEDSIDE GLUCOSE 230 MG/DL (70-105)
[2017-07-23] MEDS: ATORVASTATIN 10 MG TAB PO (20:50)
[2017-07-23] MEDS: AMITRIPTYLINE 25 MG TAB PO (20:50)
[2017-07-23] MEDS: LIDOCAINE 5% (LIDODERM) PATCH TD (20:52)
[2017-07-24] MEDS: ENOXAPARIN 150 MG/ML SYR (J1650) SC ×2 (01:20→13:07)
[2017-07-24] MEDS: PIPERACILLIN/TAZOBACTAM SOD 3.375 GM in APPROPRIATE DILUENT 1 EA IV ×4 (02:52→21:53)
[2017-07-24 06:27] LABS: HEMATOCRIT 38.1 % (42.0-52.0); HEMOGLOBIN 12.3 g/dl (14.0-18.0); MEAN CORPUSCULAR HEMOGLOBIN 27.5 pg (27.0-33.0); MEAN CORPUSCULAR HGB CONC 32.3 g/dl (32.0-36.5); PLATELET COUNT, AUTOMATED 456 10^3/uL (150-450); RED BLOOD COUNT 4.48 10^6/uL (4.30-6.10); WHITE BLOOD COUNT 6.6 10^3/uL (4.0-10.0)
[2017-07-24 06:40] LABS: INR 1.57; PROTHROMBIN TIME 19.2 SECONDS (12.4-14.5)
[2017-07-24 06:49] LABS: ANION GAP 6 MEQ/L (8-16); BLOOD UREA NITROGEN 11 MG/DL (7-18); C REACTIVE PROTEIN QUANTITATIV 0.65 MG/DL (0.00-0.30); CALCIUM LEVEL 9.7 MG/DL (8.5-10.1); CARBON DIOXIDE LEVEL 30 MEQ/L (21-32); CHLORIDE LEVEL 101 MEQ/L (98-107); CREATININE FOR GFR 1.22 MG/DL (0.70-1.30); GLOMERULAR FILTRATION RATE > 60.0 (>56); GLUCOSE, FASTING 242 MG/DL (70-100); POTASSIUM SERUM 3.8 MEQ/L (3.5-5.1); SODIUM LEVEL 137 MEQ/L (136-145)
[2017-07-24 07:08] LABS: ERYTHROCYTE SEDIMENTATION RATE 17 mm/hr (0-20)
[2017-07-24] MEDS: MULTIVITAMINS/MINERALS THERAP 1 TAB PO (09:00)
[2017-07-24] MEDS: OMEPRAZOLE 20 MG CAP PO (09:00)
[2017-07-24] MEDS: VITAMIN D 1,000 INTERNATIONAL UNITS TABLET PO ×2 (09:00→21:54)
[2017-07-24] MEDS: oxyCODONE 20 MG CR TAB PO ×2 (09:00→21:52)
[2017-07-24] MEDS: **NOTE PATIENT COMMENT** MISC XX (09:00)
[2017-07-24] MEDS: buPROPion **XL** TABLET 150MG (WELLBUTRIN XL) PO (09:01)
[2017-07-24] MEDS: MAGNESIUM OXIDE 400 MG TAB (MAG-OX) PO ×2 (09:01→21:55)
[2017-07-24] MEDS: FAMOTIDINE 20 MG TAB PO ×2 (09:01→21:54)
[2017-07-24] MEDS: LEVEMIR (INSULIN DETEMIR) 1 UNITS/0.01ML SC ×2 (09:01→21:54)
[2017-07-24] MEDS: HumaLOG INSULIN (NovoLOG) PER UNIT SC ×4 (09:02→21:55)
[2017-07-24] MEDS: **hydrALAZINE HCL** 25 MG TAB PO ×3 (09:06→21:54)
[2017-07-24] MEDS: amLODIPine 5 MG TAB PO ×2 (09:06→21:54)
[2017-07-24] MEDS: FUROSEMIDE 20 MG TAB PO (09:06)
[2017-07-24] MEDS: CARVedilol 12.5 MG TAB PO ×2 (09:07→21:53)
[2017-07-24 11:31] LABS: MAGNESIUM LEVEL 1.8 MG/DL (1.8-2.4)
[2017-07-24] MEDS: oxyCODONE 5MG TAB PO (11:39)
[2017-07-24 12:45] LABS: BEDSIDE GLUCOSE 235 MG/DL (70-105)
[2017-07-24 17:13] LABS: BEDSIDE GLUCOSE 216 MG/DL (70-105)
[2017-07-24] MEDS: WARFARIN SOD 5 MG TAB PO (17:22)
[2017-07-24 21:09] LABS: BEDSIDE GLUCOSE 303 MG/DL (70-105)
[2017-07-24] MEDS: LIDOCAINE 5% (LIDODERM) PATCH TD (21:52)
[2017-07-24] MEDS: AMITRIPTYLINE 25 MG TAB PO (21:55)
[2017-07-24] MEDS: ATORVASTATIN 10 MG TAB PO (21:55)
[2017-07-25] MEDS: ENOXAPARIN 150 MG/ML SYR (J1650) SC ×2 (00:11→12:14)
[2017-07-25] MEDS: PIPERACILLIN/TAZOBACTAM SOD 3.375 GM in APPROPRIATE DILUENT 1 EA IV (02:49)
[2017-07-25 07:01] LABS: HEMATOCRIT 37.3 % (42.0-52.0); HEMOGLOBIN 12.3 g/dl (14.0-18.0); MEAN CORPUSCULAR HEMOGLOBIN 28.1 pg (27.0-33.0); MEAN CORPUSCULAR VOLUME 85.2 fl (80.0-96.0); PLATELET COUNT, AUTOMATED 435 10^3/uL (150-450); RED BLOOD COUNT 4.38 10^6/uL (4.30-6.10); RED CELL DISTRIBUTION WIDTH 16.7 % (11.5-14.5); WHITE BLOOD COUNT 6.6 10^3/uL (4.0-10.0)
[2017-07-25 07:13] LABS: INR 1.89; PROTHROMBIN TIME 22.3 SECONDS (12.4-14.5)
[2017-07-25 07:18] LABS: ANION GAP 6 MEQ/L (8-16); BLOOD UREA NITROGEN 13 MG/DL (7-18); CALCIUM LEVEL 9.6 MG/DL (8.5-10.1); CARBON DIOXIDE LEVEL 29 MEQ/L (21-32); CHLORIDE LEVEL 102 MEQ/L (98-107); CREATININE FOR GFR 1.29 MG/DL (0.70-1.30); GLOMERULAR FILTRATION RATE > 60.0 (>56); GLUCOSE, FASTING 350 MG/DL (70-100); MAGNESIUM LEVEL 1.7 MG/DL (1.8-2.4); POTASSIUM SERUM 4.1 MEQ/L (3.5-5.1); SODIUM LEVEL 137 MEQ/L (136-145)
[2017-07-25] MEDS: LEVEMIR (INSULIN DETEMIR) 1 UNITS/0.01ML SC ×2 (08:55→22:34)
[2017-07-25] MEDS: HumaLOG INSULIN (NovoLOG) PER UNIT SC ×4 (08:56→22:34)
[2017-07-25] MEDS: VITAMIN D 1,000 INTERNATIONAL UNITS TABLET PO ×2 (08:57→22:32)
[2017-07-25] MEDS: MAGNESIUM OXIDE 400 MG TAB (MAG-OX) PO ×2 (08:57→22:32)
[2017-07-25] MEDS: MULTIVITAMINS/MINERALS THERAP 1 TAB PO (08:57)
[2017-07-25] MEDS: FUROSEMIDE 20 MG TAB PO (08:57)
[2017-07-25] MEDS: amLODIPine 5 MG TAB PO ×2 (08:58→22:32)
[2017-07-25] MEDS: OMEPRAZOLE 20 MG CAP PO (08:58)
[2017-07-25] MEDS: **hydrALAZINE HCL** 25 MG TAB PO ×3 (08:58→22:33)
[2017-07-25] MEDS: CARVedilol 12.5 MG TAB PO ×2 (09:00→22:31)
[2017-07-25] MEDS: AUGMENTIN 875 MG TAB PO ×2 (09:00→22:31)
[2017-07-25] MEDS: **NOTE PATIENT COMMENT** MISC XX (09:00)
[2017-07-25] MEDS: oxyCODONE 20 MG CR TAB PO ×2 (09:00→22:33)
[2017-07-25] MEDS: FAMOTIDINE 20 MG TAB PO ×2 (09:00→22:32)
[2017-07-25] MEDS: buPROPion **XL** TABLET 150MG (WELLBUTRIN XL) PO (09:01)
[2017-07-25] MEDS: ACETAMINOPHEN TAB 650MG DOSE (2X325MG) PO (12:12)
[2017-07-25] MEDS: WARFARIN SOD 5 MG TAB PO (16:45)
[2017-07-25 19:56] LABS: BEDSIDE GLUCOSE 316 MG/DL (70-105)
[2017-07-25 19:56] LABS: BEDSIDE GLUCOSE 185 MG/DL (70-105)
[2017-07-25 21:28] LABS: BEDSIDE GLUCOSE 266 MG/DL (70-105)
[2017-07-25] MEDS: AMITRIPTYLINE 25 MG TAB PO (22:31)
[2017-07-25] MEDS: ATORVASTATIN 10 MG TAB PO (22:32)
[2017-07-25] MEDS: LIDOCAINE 5% (LIDODERM) PATCH TD (22:34)
[2017-07-26] MEDS: ENOXAPARIN 150 MG/ML SYR (J1650) SC ×2 (01:06→12:56)
[2017-07-26 05:43] LABS: HEMATOCRIT 39.2 % (42.0-52.0); HEMOGLOBIN 12.4 g/dl (14.0-18.0); MEAN CORPUSCULAR HEMOGLOBIN 26.8 pg (27.0-33.0); MEAN CORPUSCULAR HGB CONC 31.6 g/dl (32.0-36.5); MEAN CORPUSCULAR VOLUME 84.8 fl (80.0-96.0); PLATELET COUNT, AUTOMATED 414 10^3/uL (150-450); RED BLOOD COUNT 4.62 10^6/uL (4.30-6.10); RED CELL DISTRIBUTION WIDTH 16.7 % (11.5-14.5)
[2017-07-26 05:54] LABS: INR 2.14; PROTHROMBIN TIME 24.7 SECONDS (12.4-14.5)
[2017-07-26 06:00] LABS: ANION GAP 4 MEQ/L (8-16); BLOOD UREA NITROGEN 11 MG/DL (7-18); C REACTIVE PROTEIN QUANTITATIV < 0.30 MG/DL (0.00-0.30); CALCIUM LEVEL 9.3 MG/DL (8.5-10.1); CARBON DIOXIDE LEVEL 30 MEQ/L (21-32); CHLORIDE LEVEL 105 MEQ/L (98-107); CREATININE FOR GFR 1.13 MG/DL (0.70-1.30); GLOMERULAR FILTRATION RATE > 60.0 (>56); GLUCOSE, FASTING 231 MG/DL (70-100); MAGNESIUM LEVEL 1.6 MG/DL (1.8-2.4); POTASSIUM SERUM 3.9 MEQ/L (3.5-5.1); SODIUM LEVEL 139 MEQ/L (136-145)
[2017-07-26] MEDS: VITAMIN D 1,000 INTERNATIONAL UNITS TABLET PO ×2 (08:49→21:14)
[2017-07-26] MEDS: OMEPRAZOLE 20 MG CAP PO (08:50)
[2017-07-26] MEDS: CARVedilol 12.5 MG TAB PO ×2 (08:50→21:15)
[2017-07-26] MEDS: amLODIPine 5 MG TAB PO ×2 (08:51→21:15)
[2017-07-26] MEDS: MULTIVITAMINS/MINERALS THERAP 1 TAB PO (08:51)
[2017-07-26] MEDS: AUGMENTIN 875 MG TAB PO ×2 (08:51→21:15)
[2017-07-26] MEDS: **hydrALAZINE HCL** 25 MG TAB PO ×3 (08:51→21:16)
[2017-07-26] MEDS: FUROSEMIDE 20 MG TAB PO (08:52)
[2017-07-26] MEDS: MAGNESIUM OXIDE 400 MG TAB (MAG-OX) PO ×2 (08:52→21:16)
[2017-07-26] MEDS: FAMOTIDINE 20 MG TAB PO ×2 (08:52→21:16)
[2017-07-26] MEDS: buPROPion **XL** TABLET 150MG (WELLBUTRIN XL) PO (08:52)
[2017-07-26] MEDS: oxyCODONE 20 MG CR TAB PO ×2 (08:53→21:13)
[2017-07-26] MEDS: LEVEMIR (INSULIN DETEMIR) 1 UNITS/0.01ML SC ×2 (08:54→21:18)
[2017-07-26] MEDS: **NOTE PATIENT COMMENT** MISC XX (08:55)
[2017-07-26] MEDS: HumaLOG INSULIN (NovoLOG) PER UNIT SC ×4 (08:55→21:18)
[2017-07-26 12:04] LABS: BEDSIDE GLUCOSE 196 MG/DL (70-105)
[2017-07-26] MEDS: WARFARIN SOD 5 MG TAB PO (16:39)
[2017-07-26] MEDS: AMITRIPTYLINE 50 MG TAB PO (21:17)
[2017-07-26] MEDS: ATORVASTATIN 10 MG TAB PO (21:17)
[2017-07-26] MEDS: LIDOCAINE 5% (LIDODERM) PATCH TD (21:33)
[2017-07-27] MEDS: ENOXAPARIN 150 MG/ML SYR (J1650) SC (01:52)
[2017-07-27 07:02] LABS: HEMOGLOBIN 12.9 g/dl (14.0-18.0); MEAN CORPUSCULAR HEMOGLOBIN 27.4 pg (27.0-33.0); MEAN CORPUSCULAR HGB CONC 32.3 g/dl (32.0-36.5); MEAN CORPUSCULAR VOLUME 85.1 fl (80.0-96.0); PLATELET COUNT, AUTOMATED 407 10^3/uL (150-450); RED CELL DISTRIBUTION WIDTH 16.5 % (11.5-14.5); WHITE BLOOD COUNT 6.3 10^3/uL (4.0-10.0)
[2017-07-27 07:10] LABS: INR 2.06
[2017-07-27 07:30] LABS: ANION GAP 6 MEQ/L (8-16); BLOOD UREA NITROGEN 13 MG/DL (7-18); CALCIUM LEVEL 9.9 MG/DL (8.5-10.1); CARBON DIOXIDE LEVEL 28 MEQ/L (21-32); CHLORIDE LEVEL 104 MEQ/L (98-107); GLOMERULAR FILTRATION RATE > 60.0 (>56); GLUCOSE, FASTING 230 MG/DL (70-100); MAGNESIUM LEVEL 1.7 MG/DL (1.8-2.4); POTASSIUM SERUM 4.1 MEQ/L (3.5-5.1); SODIUM LEVEL 138 MEQ/L (136-145)
[2017-07-27] MEDS: **NOTE PATIENT COMMENT** MISC XX (09:00)
[2017-07-27] MEDS: LEVEMIR (INSULIN DETEMIR) 1 UNITS/0.01ML SC ×2 (09:34→21:22)
[2017-07-27] MEDS: VITAMIN D 1,000 INTERNATIONAL UNITS TABLET PO ×2 (09:34→21:22)
[2017-07-27] MEDS: HumaLOG INSULIN (NovoLOG) PER UNIT SC ×4 (09:35→21:24)
[2017-07-27] MEDS: OMEPRAZOLE 20 MG CAP PO (09:35)
[2017-07-27] MEDS: MAGNESIUM OXIDE 400 MG TAB (MAG-OX) PO ×2 (09:37→21:24)
[2017-07-27] MEDS: CARVedilol 12.5 MG TAB PO ×2 (09:37→21:23)
[2017-07-27] MEDS: AUGMENTIN 875 MG TAB PO ×2 (09:37→21:22)
[2017-07-27] MEDS: amLODIPine 5 MG TAB PO ×2 (09:37→21:24)
[2017-07-27] MEDS: buPROPion **XL** TABLET 150MG (WELLBUTRIN XL) PO (09:38)
[2017-07-27] MEDS: FUROSEMIDE 20 MG TAB PO (09:38)
[2017-07-27] MEDS: **hydrALAZINE HCL** 25 MG TAB PO ×3 (09:38→21:23)
[2017-07-27] MEDS: FAMOTIDINE 20 MG TAB PO ×2 (09:39→21:23)
[2017-07-27] MEDS: MULTIVITAMINS/MINERALS THERAP 1 TAB PO (09:54)
[2017-07-27] MEDS: oxyCODONE 20 MG CR TAB PO ×2 (09:54→21:22)
[2017-07-27 12:11] LABS: BEDSIDE GLUCOSE 278 MG/DL (70-105)
[2017-07-27 12:11] LABS: BEDSIDE GLUCOSE 163 MG/DL (70-105)
[2017-07-27] MEDS: WARFARIN SOD 5 MG TAB PO (16:35)
[2017-07-27 16:53] LABS: BEDSIDE GLUCOSE 262 MG/DL (70-105)
[2017-07-27] MEDS: oxyCODONE 5MG TAB PO (17:27)
[2017-07-27 17:34] LABS: BEDSIDE GLUCOSE 217 MG/DL (70-105)
[2017-07-27] MEDS: ATORVASTATIN 10 MG TAB PO (21:23)
[2017-07-27] MEDS: AMITRIPTYLINE 50 MG TAB PO (21:24)
[2017-07-27] MEDS: LIDOCAINE 5% (LIDODERM) PATCH TD (21:25)
[2017-07-27 21:53] LABS: BEDSIDE GLUCOSE 236 MG/DL (70-105)
[2017-07-28] MEDS: oxyCODONE 5MG TAB PO ×4 (00:42→17:15)
[2017-07-28 06:27] LABS: HEMATOCRIT 40.4 % (42.0-52.0); HEMOGLOBIN 12.8 g/dl (14.0-18.0); MEAN CORPUSCULAR HEMOGLOBIN 27.2 pg (27.0-33.0); MEAN CORPUSCULAR HGB CONC 31.7 g/dl (32.0-36.5); PLATELET COUNT, AUTOMATED 415 10^3/uL (150-450); RED CELL DISTRIBUTION WIDTH 16.6 % (11.5-14.5); WHITE BLOOD COUNT 6.1 10^3/uL (4.0-10.0)
[2017-07-28 06:39] LABS: INR 1.91; PROTHROMBIN TIME 22.5 SECONDS (12.4-14.5)
[2017-07-28 06:45] LABS: ANION GAP 4 MEQ/L (8-16); BLOOD UREA NITROGEN 13 MG/DL (7-18); C REACTIVE PROTEIN QUANTITATIV < 0.30 MG/DL (0.00-0.30); CALCIUM LEVEL 9.5 MG/DL (8.5-10.1); CARBON DIOXIDE LEVEL 29 MEQ/L (21-32); CHLORIDE LEVEL 106 MEQ/L (98-107); CREATININE FOR GFR 1.18 MG/DL (0.70-1.30); GLOMERULAR FILTRATION RATE > 60.0 (>56); GLUCOSE, FASTING 309 MG/DL (70-100); MAGNESIUM LEVEL 1.4 MG/DL (1.8-2.4); SODIUM LEVEL 139 MEQ/L (136-145)
[2017-07-28] MEDS: LEVEMIR (INSULIN DETEMIR) 1 UNITS/0.01ML SC ×2 (08:23→20:34)
[2017-07-28] MEDS: HumaLOG INSULIN (NovoLOG) PER UNIT SC ×4 (08:23→20:35)
[2017-07-28] MEDS: MULTIVITAMINS/MINERALS THERAP 1 TAB PO (08:25)
[2017-07-28] MEDS: oxyCODONE 20 MG CR TAB PO ×2 (08:25→20:34)
[2017-07-28] MEDS: VITAMIN D 1,000 INTERNATIONAL UNITS TABLET PO ×2 (08:26→20:35)
[2017-07-28] MEDS: **hydrALAZINE HCL** 25 MG TAB PO ×3 (08:26→20:36)
[2017-07-28] MEDS: FAMOTIDINE 20 MG TAB PO ×2 (08:26→20:36)
[2017-07-28] MEDS: buPROPion **XL** TABLET 150MG (WELLBUTRIN XL) PO (08:26)
[2017-07-28] MEDS: OMEPRAZOLE 20 MG CAP PO (08:26)
[2017-07-28] MEDS: MAGNESIUM OXIDE 400 MG TAB (MAG-OX) PO ×2 (08:27→20:36)
[2017-07-28] MEDS: FUROSEMIDE 20 MG TAB PO (08:27)
[2017-07-28] MEDS: AUGMENTIN 875 MG TAB PO ×2 (08:27→20:35)
[2017-07-28] MEDS: CARVedilol 12.5 MG TAB PO ×2 (08:27→20:35)
[2017-07-28] MEDS: amLODIPine 5 MG TAB PO ×2 (08:28→20:36)
[2017-07-28] MEDS: **NOTE PATIENT COMMENT** MISC XX (08:29)
[2017-07-28] MEDS: DICLOFENAC EPOLAMINE 1.3 % PATCH TOP (13:47)
[2017-07-28] MEDS: WARFARIN SOD 5 MG TAB PO (16:25)
[2017-07-28 16:49] LABS: BEDSIDE GLUCOSE 174 MG/DL (70-105)
[2017-07-28 17:16] LABS: BEDSIDE GLUCOSE 254 MG/DL (70-105)
[2017-07-28] MEDS: ATORVASTATIN 10 MG TAB PO (20:36)
[2017-07-28] MEDS: AMITRIPTYLINE 50 MG TAB PO (20:36)
[2017-07-28] MEDS: LIDOCAINE 5% (LIDODERM) PATCH TD (20:37)
[2017-07-29] MEDS: oxyCODONE 5MG TAB PO ×2 (03:43→14:28)
[2017-07-29 05:54] LABS: HEMATOCRIT 40.4 % (42.0-52.0); HEMOGLOBIN 12.9 g/dl (14.0-18.0); MEAN CORPUSCULAR HEMOGLOBIN 27.2 pg (27.0-33.0); MEAN CORPUSCULAR HGB CONC 31.9 g/dl (32.0-36.5); MEAN CORPUSCULAR VOLUME 85.1 fl (80.0-96.0); PLATELET COUNT, AUTOMATED 440 10^3/uL (150-450); RED BLOOD COUNT 4.75 10^6/uL (4.30-6.10); RED CELL DISTRIBUTION WIDTH 16.7 % (11.5-14.5); WHITE BLOOD COUNT 6.5 10^3/uL (4.0-10.0)
[2017-07-29 06:05] LABS: INR 1.93; PROTHROMBIN TIME 22.7 SECONDS (12.4-14.5)
[2017-07-29 06:12] LABS: ANION GAP 6 MEQ/L (8-16); BLOOD UREA NITROGEN 15 MG/DL (7-18); CALCIUM LEVEL 9.4 MG/DL (8.5-10.1); CARBON DIOXIDE LEVEL 28 MEQ/L (21-32); CHLORIDE LEVEL 107 MEQ/L (98-107); CREATININE FOR GFR 1.29 MG/DL (0.70-1.30); GLOMERULAR FILTRATION RATE > 60.0 (>56); GLUCOSE, FASTING 294 MG/DL (70-100); MAGNESIUM LEVEL 1.4 MG/DL (1.8-2.4); POTASSIUM SERUM 4.2 MEQ/L (3.5-5.1); SODIUM LEVEL 141 MEQ/L (136-145)
[2017-07-29] MEDS ORDERED: MAG SULF 1GM/100ML (MAG RUN) 1 GM in APPROPRIATE DILUENT 1 EA IV (07:00)
[2017-07-29] MEDS: HumaLOG INSULIN (NovoLOG) PER UNIT SC ×4 (07:15→21:00)
[2017-07-29] MEDS: oxyCODONE 20 MG CR TAB PO ×2 (10:40→21:29)
[2017-07-29] MEDS: OMEPRAZOLE 20 MG CAP PO (10:40)
[2017-07-29] MEDS: buPROPion **XL** TABLET 150MG (WELLBUTRIN XL) PO (10:41)
[2017-07-29] MEDS: VITAMIN D 1,000 INTERNATIONAL UNITS TABLET PO ×2 (10:41→21:20)
[2017-07-29] MEDS: FAMOTIDINE 20 MG TAB PO ×2 (10:42→21:18)
[2017-07-29] MEDS: FUROSEMIDE 20 MG TAB PO (10:42)
[2017-07-29] MEDS: amLODIPine 5 MG TAB PO ×2 (10:42→21:20)
[2017-07-29] MEDS: MULTIVITAMINS/MINERALS THERAP 1 TAB PO (10:43)
[2017-07-29] MEDS: MAGNESIUM OXIDE 400 MG TAB (MAG-OX) PO ×3 (10:44→21:19)
[2017-07-29] MEDS: **hydrALAZINE HCL** 25 MG TAB PO ×3 (10:45→21:20)
[2017-07-29] MEDS: CARVedilol 12.5 MG TAB PO ×2 (10:46→21:19)
[2017-07-29] MEDS: AUGMENTIN 875 MG TAB PO ×2 (10:46→21:18)
[2017-07-29] MEDS: LEVEMIR (INSULIN DETEMIR) 1 UNITS/0.01ML SC ×2 (10:46→21:00)
[2017-07-29] MEDS: **NOTE PATIENT COMMENT** MISC XX (11:33)
[2017-07-29] MEDS: DICLOFENAC EPOLAMINE 1.3 % PATCH TOP (14:28)
[2017-07-29] MEDS: WARFARIN SOD 5 MG TAB PO (16:30)
[2017-07-29] MEDS: ACETAMINOPHEN TAB 650MG DOSE (2X325MG) PO (16:31)
[2017-07-29 19:59] LABS: BEDSIDE GLUCOSE 257 MG/DL (70-105)
[2017-07-29 19:59] LABS: BEDSIDE GLUCOSE 299 MG/DL (70-105)
[2017-07-29 19:59] LABS: BEDSIDE GLUCOSE 247 MG/DL (70-105)
[2017-07-29 20:46] LABS: BEDSIDE GLUCOSE 276 MG/DL (70-105)
[2017-07-29] MEDS: ATORVASTATIN 10 MG TAB PO (21:18)
[2017-07-29] MEDS: AMITRIPTYLINE 50 MG TAB PO (21:18)
[2017-07-29] MEDS: LIDOCAINE 5% (LIDODERM) PATCH TD (21:21)
[2017-07-30] MEDS: oxyCODONE 5MG TAB PO ×3 (03:17→17:38)
[2017-07-30 06:21] LABS: INR 2.12; PROTHROMBIN TIME 24.5 SECONDS (12.4-14.5)
[2017-07-30 06:24] LABS: ANION GAP 4 MEQ/L (8-16); BLOOD UREA NITROGEN 17 MG/DL (7-18); CALCIUM LEVEL 9.7 MG/DL (8.5-10.1); CARBON DIOXIDE LEVEL 30 MEQ/L (21-32); CHLORIDE LEVEL 107 MEQ/L (98-107); CREATININE FOR GFR 1.13 MG/DL (0.70-1.30); GLOMERULAR FILTRATION RATE > 60.0 (>56); GLUCOSE, FASTING 188 MG/DL (70-100); POTASSIUM SERUM 3.9 MEQ/L (3.5-5.1); SODIUM LEVEL 141 MEQ/L (136-145)
[2017-07-30 06:43] LABS: MAGNESIUM LEVEL 1.4 MG/DL (1.8-2.4)
[2017-07-30 06:52] LABS: HEMATOCRIT 39.8 % (42.0-52.0); HEMOGLOBIN 12.4 g/dl (14.0-18.0); MEAN CORPUSCULAR HEMOGLOBIN 26.6 pg (27.0-33.0); MEAN CORPUSCULAR HGB CONC 31.2 g/dl (32.0-36.5); MEAN CORPUSCULAR VOLUME 85.4 fl (80.0-96.0); PLATELET COUNT, AUTOMATED 427 10^3/uL (150-450); RED BLOOD COUNT 4.66 10^6/uL (4.30-6.10); RED CELL DISTRIBUTION WIDTH 16.5 % (11.5-14.5); WHITE BLOOD COUNT 6.6 10^3/uL (4.0-10.0)
[2017-07-30] MEDS: LEVEMIR (INSULIN DETEMIR) 1 UNITS/0.01ML SC ×2 (09:47→21:00)
[2017-07-30] MEDS: HumaLOG INSULIN (NovoLOG) PER UNIT SC ×4 (09:48→20:51)
[2017-07-30] MEDS: oxyCODONE 20 MG CR TAB PO ×2 (09:49→21:04)
[2017-07-30] MEDS: VITAMIN D 1,000 INTERNATIONAL UNITS TABLET PO ×2 (09:49→21:04)
[2017-07-30] MEDS: MAGNESIUM OXIDE 400 MG TAB (MAG-OX) PO ×3 (09:50→21:04)
[2017-07-30] MEDS: **hydrALAZINE HCL** 25 MG TAB PO ×3 (09:51→21:06)
[2017-07-30] MEDS: OMEPRAZOLE 20 MG CAP PO (09:51)
[2017-07-30] MEDS: AUGMENTIN 875 MG TAB PO ×2 (09:51→21:03)
[2017-07-30] MEDS: amLODIPine 5 MG TAB PO ×2 (09:51→21:06)
[2017-07-30] MEDS: MULTIVITAMINS/MINERALS THERAP 1 TAB PO (09:52)
[2017-07-30] MEDS: FUROSEMIDE 20 MG TAB PO (09:52)
[2017-07-30] MEDS: FAMOTIDINE 20 MG TAB PO ×2 (09:52→21:05)
[2017-07-30] MEDS: CARVedilol 12.5 MG TAB PO ×2 (09:52→21:05)
[2017-07-30] MEDS: **NOTE PATIENT COMMENT** MISC XX (09:53)
[2017-07-30] MEDS: buPROPion **XL** TABLET 150MG (WELLBUTRIN XL) PO (09:53)
[2017-07-30] MEDS: DICLOFENAC EPOLAMINE 1.3 % PATCH TOP (11:50)
[2017-07-30 12:04] LABS: BEDSIDE GLUCOSE 232 MG/DL (70-105)
[2017-07-30] MEDS: WARFARIN SOD 5 MG TAB PO (17:28)
[2017-07-30 20:16] LABS: BEDSIDE GLUCOSE 246 MG/DL (70-105)
[2017-07-30] MEDS: LIDOCAINE 5% (LIDODERM) PATCH TD (21:00)
[2017-07-30] MEDS: AMITRIPTYLINE 50 MG TAB PO (21:05)
[2017-07-30] MEDS: ATORVASTATIN 10 MG TAB PO (21:05)
[2017-07-31] MEDS: oxyCODONE 5MG TAB PO ×3 (03:34→19:05)
[2017-07-31 06:09] LABS: MAGNESIUM LEVEL 1.8 MG/DL (1.8-2.4)
[2017-07-31 06:57] LABS: BEDSIDE GLUCOSE 165 MG/DL (70-105)
[2017-07-31 07:03] LABS: ERYTHROCYTE SEDIMENTATION RATE 6 mm/hr (0-20)
[2017-07-31] MEDS: VITAMIN D 1,000 INTERNATIONAL UNITS TABLET PO ×2 (10:07→20:26)
[2017-07-31] MEDS: buPROPion **XL** TABLET 150MG (WELLBUTRIN XL) PO (10:07)
[2017-07-31] MEDS: MAGNESIUM OXIDE 400 MG TAB (MAG-OX) PO ×3 (10:08→20:27)
[2017-07-31] MEDS: oxyCODONE 20 MG CR TAB PO ×2 (10:09→20:26)
[2017-07-31] MEDS: amLODIPine 5 MG TAB PO ×2 (10:10→20:28)
[2017-07-31] MEDS: FAMOTIDINE 20 MG TAB PO ×2 (10:10→20:29)
[2017-07-31] MEDS: MULTIVITAMINS/MINERALS THERAP 1 TAB PO (10:10)
[2017-07-31] MEDS: OMEPRAZOLE 20 MG CAP PO (10:11)
[2017-07-31] MEDS: CARVedilol 12.5 MG TAB PO ×2 (10:11→20:29)
[2017-07-31] MEDS: FUROSEMIDE 20 MG TAB PO (10:11)
[2017-07-31] MEDS: **hydrALAZINE HCL** 25 MG TAB PO ×3 (10:12→20:28)
[2017-07-31] MEDS: LEVEMIR (INSULIN DETEMIR) 1 UNITS/0.01ML SC ×2 (10:12→20:29)
[2017-07-31] MEDS: **NOTE PATIENT COMMENT** MISC XX (10:13)
[2017-07-31] MEDS: HumaLOG INSULIN (NovoLOG) PER UNIT SC ×4 (10:13→20:29)
[2017-07-31] MEDS: AUGMENTIN 875 MG TAB PO ×2 (10:32→20:27)
[2017-07-31 12:14] LABS: BEDSIDE GLUCOSE 263 MG/DL (70-105)
[2017-07-31 13:10] LABS: BEDSIDE GLUCOSE 214 MG/DL (70-105)
[2017-07-31] MEDS: DICLOFENAC EPOLAMINE 1.3 % PATCH TOP (13:42)
[2017-07-31 17:09] LABS: BEDSIDE GLUCOSE 249 MG/DL (70-105)
[2017-07-31] MEDS: WARFARIN SOD 5 MG TAB PO (17:30)
[2017-07-31] MEDS: LIDOCAINE 5% (LIDODERM) PATCH TD (20:26)
[2017-07-31] MEDS: ATORVASTATIN 10 MG TAB PO (20:27)
[2017-07-31] MEDS: AMITRIPTYLINE 50 MG TAB PO (20:29)
[2017-07-31 21:01] LABS: BEDSIDE GLUCOSE 280 MG/DL (70-105)
[2017-08-01] MEDS: oxyCODONE 5MG TAB PO ×3 (05:23→19:32)
[2017-08-01 05:42] LABS: HEMOGLOBIN 12.4 g/dl (14.0-18.0); MEAN CORPUSCULAR HEMOGLOBIN 26.4 pg (27.0-33.0); MEAN CORPUSCULAR VOLUME 85.3 fl (80.0-96.0); PLATELET COUNT, AUTOMATED 436 10^3/uL (150-450); RED BLOOD COUNT 4.69 10^6/uL (4.30-6.10); RED CELL DISTRIBUTION WIDTH 16.1 % (11.5-14.5); WHITE BLOOD COUNT 6.6 10^3/uL (4.0-10.0)
[2017-08-01 05:54] LABS: PROTHROMBIN TIME 25.2 SECONDS (12.4-14.5)
[2017-08-01 06:05] LABS: ANION GAP 6 MEQ/L (8-16); BLOOD UREA NITROGEN 19 MG/DL (7-18); CALCIUM LEVEL 9.8 MG/DL (8.5-10.1); CARBON DIOXIDE LEVEL 30 MEQ/L (21-32); CHLORIDE LEVEL 104 MEQ/L (98-107); CREATININE FOR GFR 1.29 MG/DL (0.70-1.30); GLOMERULAR FILTRATION RATE > 60.0 (>56); GLUCOSE, FASTING 274 MG/DL (70-100); POTASSIUM SERUM 3.9 MEQ/L (3.5-5.1); SODIUM LEVEL 140 MEQ/L (136-145)
[2017-08-01] MEDS: **NOTE PATIENT COMMENT** MISC XX (09:00)
[2017-08-01] MEDS: LEVEMIR (INSULIN DETEMIR) 1 UNITS/0.01ML SC ×2 (09:08→20:56)
[2017-08-01] MEDS: HumaLOG INSULIN (NovoLOG) PER UNIT SC ×5 (09:09→20:56)
[2017-08-01] MEDS: AUGMENTIN 875 MG TAB PO ×2 (09:09→20:57)
[2017-08-01] MEDS: amLODIPine 5 MG TAB PO ×2 (09:09→20:58)
[2017-08-01] MEDS: MULTIVITAMINS/MINERALS THERAP 1 TAB PO (09:10)
[2017-08-01] MEDS: MAGNESIUM OXIDE 400 MG TAB (MAG-OX) PO ×3 (09:11→20:57)
[2017-08-01] MEDS: OMEPRAZOLE 20 MG CAP PO (09:11)
[2017-08-01] MEDS: oxyCODONE 20 MG CR TAB PO ×2 (09:11→20:55)
[2017-08-01] MEDS: FAMOTIDINE 20 MG TAB PO ×2 (09:11→20:58)
[2017-08-01] MEDS: buPROPion **XL** TABLET 150MG (WELLBUTRIN XL) PO (09:12)
[2017-08-01] MEDS: VITAMIN D 1,000 INTERNATIONAL UNITS TABLET PO ×2 (09:12→20:57)
[2017-08-01] MEDS: CARVedilol 12.5 MG TAB PO ×2 (09:12→20:57)
[2017-08-01] MEDS: FUROSEMIDE 20 MG TAB PO (09:13)
[2017-08-01] MEDS: **hydrALAZINE HCL** 25 MG TAB PO ×3 (09:13→20:58)
[2017-08-01] MEDS: DICLOFENAC EPOLAMINE 1.3 % PATCH TOP (14:30)
[2017-08-01 15:12] LABS: BEDSIDE GLUCOSE 268 MG/DL (70-105)
[2017-08-01 16:34] LABS: BEDSIDE GLUCOSE 217 MG/DL (70-105)
[2017-08-01] MEDS: WARFARIN SOD 4 MG TAB PO (17:50)
[2017-08-01 20:51] LABS: BEDSIDE GLUCOSE 174 MG/DL (70-105)
[2017-08-01] MEDS: LIDOCAINE 5% (LIDODERM) PATCH TD (20:55)
[2017-08-01] MEDS: AMITRIPTYLINE 50 MG TAB PO (20:58)
[2017-08-01] MEDS: ATORVASTATIN 10 MG TAB PO (20:58)
[2017-08-02] MEDS: oxyCODONE 5MG TAB PO ×2 (06:02→17:09)
[2017-08-02 06:48] LABS: BEDSIDE GLUCOSE 312 MG/DL (70-105)
[2017-08-02] MEDS: HumaLOG INSULIN (NovoLOG) PER UNIT SC ×4 (08:18→21:29)
[2017-08-02] MEDS: MAGNESIUM OXIDE 400 MG TAB (MAG-OX) PO ×3 (08:19→21:27)
[2017-08-02] MEDS: LEVEMIR (INSULIN DETEMIR) 1 UNITS/0.01ML SC ×2 (08:19→21:29)
[2017-08-02] MEDS: MULTIVITAMINS/MINERALS THERAP 1 TAB PO (08:19)
[2017-08-02] MEDS: amLODIPine 5 MG TAB PO ×2 (08:20→21:26)
[2017-08-02] MEDS: **hydrALAZINE HCL** 25 MG TAB PO ×3 (08:20→21:27)
[2017-08-02] MEDS: FAMOTIDINE 20 MG TAB PO ×2 (08:20→21:27)
[2017-08-02] MEDS: VITAMIN D 1,000 INTERNATIONAL UNITS TABLET PO ×2 (08:20→21:26)
[2017-08-02] MEDS: buPROPion **XL** TABLET 150MG (WELLBUTRIN XL) PO (08:20)
[2017-08-02] MEDS: OMEPRAZOLE 20 MG CAP PO (08:21)
[2017-08-02] MEDS: DICLOFENAC EPOLAMINE 1.3 % PATCH TOP ×2 (08:21→21:28)
[2017-08-02] MEDS: FUROSEMIDE 20 MG TAB PO (08:21)
[2017-08-02] MEDS: CARVedilol 12.5 MG TAB PO ×2 (08:21→21:27)
[2017-08-02] MEDS: AUGMENTIN 875 MG TAB PO ×2 (08:21→21:28)
[2017-08-02] MEDS: oxyCODONE 20 MG CR TAB PO ×2 (08:26→21:25)
[2017-08-02] MEDS: **NOTE PATIENT COMMENT** MISC XX (08:26)
[2017-08-02 11:52] LABS: BEDSIDE GLUCOSE 225 MG/DL (70-105)
[2017-08-02] MEDS: WARFARIN SOD 4 MG TAB PO (17:08)
[2017-08-02 17:10] LABS: BEDSIDE GLUCOSE 233 MG/DL (70-105)
[2017-08-02 20:42] LABS: BEDSIDE GLUCOSE 288 MG/DL (70-105)
[2017-08-02] MEDS: AMITRIPTYLINE 50 MG TAB PO (21:26)
[2017-08-02] MEDS: ATORVASTATIN 10 MG TAB PO (21:27)
[2017-08-02] MEDS: LIDOCAINE 5% (LIDODERM) PATCH TD (21:28)
[2017-08-03] MEDS: oxyCODONE 5MG TAB PO (04:00)
[2017-08-03 06:17] LABS: BEDSIDE GLUCOSE 353 MG/DL (70-105)
[2017-08-03 06:32] LABS: INR 1.98; PROTHROMBIN TIME 23.2 SECONDS (12.4-14.5)
[2017-08-03] MEDS: HumaLOG INSULIN (NovoLOG) PER UNIT SC ×4 (08:15→21:00)
[2017-08-03] MEDS: AUGMENTIN 875 MG TAB PO ×2 (08:16→21:22)
[2017-08-03] MEDS: oxyCODONE 20 MG CR TAB PO ×2 (08:16→21:22)
[2017-08-03] MEDS: VITAMIN D 1,000 INTERNATIONAL UNITS TABLET PO ×2 (08:16→21:25)
[2017-08-03] MEDS: MAGNESIUM OXIDE 400 MG TAB (MAG-OX) PO ×3 (08:17→21:22)
[2017-08-03] MEDS: amLODIPine 5 MG TAB PO ×2 (08:18→21:25)
[2017-08-03] MEDS: FAMOTIDINE 20 MG TAB PO ×2 (08:18→21:25)
[2017-08-03] MEDS: CARVedilol 12.5 MG TAB PO ×2 (08:18→21:24)
[2017-08-03] MEDS: FUROSEMIDE 20 MG TAB PO (08:18)
[2017-08-03] MEDS: buPROPion **XL** TABLET 150MG (WELLBUTRIN XL) PO (08:18)
[2017-08-03] MEDS: **hydrALAZINE HCL** 25 MG TAB PO ×3 (08:19→21:24)
[2017-08-03] MEDS: OMEPRAZOLE 20 MG CAP PO (08:19)
[2017-08-03] MEDS: MULTIVITAMINS/MINERALS THERAP 1 TAB PO (08:19)
[2017-08-03] MEDS: **NOTE PATIENT COMMENT** MISC XX (08:20)
[2017-08-03] MEDS: LEVEMIR (INSULIN DETEMIR) 1 UNITS/0.01ML SC ×2 (08:20→21:00)
[2017-08-03] MEDS: DICLOFENAC EPOLAMINE 1.3 % PATCH TOP (09:49)
[2017-08-03 12:07] LABS: BEDSIDE GLUCOSE 229 MG/DL (70-105)
[2017-08-03 16:51] LABS: BEDSIDE GLUCOSE 219 MG/DL (70-105)
[2017-08-03] MEDS: WARFARIN SOD 4 MG TAB PO (18:11)
[2017-08-03 20:59] LABS: BEDSIDE GLUCOSE 239 MG/DL (70-105)
[2017-08-03] MEDS: ATORVASTATIN 10 MG TAB PO (21:25)
[2017-08-03] MEDS: LIDOCAINE 5% (LIDODERM) PATCH TD (21:25)
[2017-08-03] MEDS: AMITRIPTYLINE 50 MG TAB PO (21:25)
[2017-08-04] MEDS: oxyCODONE 5MG TAB PO ×2 (05:18→19:25)
[2017-08-04] MEDS: DICLOFENAC EPOLAMINE 1.3 % PATCH TOP ×2 (05:42→21:28)
[2017-08-04 07:08] LABS: BEDSIDE GLUCOSE 226 MG/DL (70-105)
[2017-08-04] MEDS: **NOTE PATIENT COMMENT** MISC XX (08:17)
[2017-08-04] MEDS: HumaLOG INSULIN (NovoLOG) PER UNIT SC ×4 (08:17→21:31)
[2017-08-04] MEDS: LEVEMIR (INSULIN DETEMIR) 1 UNITS/0.01ML SC ×2 (08:17→21:31)
[2017-08-04] MEDS: VITAMIN D 1,000 INTERNATIONAL UNITS TABLET PO ×2 (08:18→21:29)
[2017-08-04] MEDS: MAGNESIUM OXIDE 400 MG TAB (MAG-OX) PO ×3 (08:18→21:30)
[2017-08-04] MEDS: AUGMENTIN 875 MG TAB PO ×2 (08:18→21:29)
[2017-08-04] MEDS: buPROPion **XL** TABLET 150MG (WELLBUTRIN XL) PO (08:18)
[2017-08-04] MEDS: oxyCODONE 20 MG CR TAB PO ×2 (08:18→21:38)
[2017-08-04] MEDS: CARVedilol 12.5 MG TAB PO ×2 (08:19→21:29)
[2017-08-04] MEDS: amLODIPine 5 MG TAB PO ×2 (08:19→21:30)
[2017-08-04] MEDS: OMEPRAZOLE 20 MG CAP PO (08:19)
[2017-08-04] MEDS: FUROSEMIDE 20 MG TAB PO (08:19)
[2017-08-04] MEDS: MULTIVITAMINS/MINERALS THERAP 1 TAB PO (08:19)
[2017-08-04] MEDS: **hydrALAZINE HCL** 25 MG TAB PO ×3 (08:19→21:30)
[2017-08-04] MEDS: FAMOTIDINE 20 MG TAB PO ×2 (08:20→21:29)
[2017-08-04 11:50] LABS: BEDSIDE GLUCOSE 249 MG/DL (70-105)
[2017-08-04] MEDS: AQUAPHOR **100GM** OINT TOP (14:33)
[2017-08-04] MEDS: WARFARIN SOD 4 MG TAB PO (16:20)
[2017-08-04 16:38] LABS: BEDSIDE GLUCOSE 224 MG/DL (70-105)
[2017-08-04] MEDS: AMITRIPTYLINE 50 MG TAB PO (21:00)
[2017-08-04 21:20] LABS: BEDSIDE GLUCOSE 281 MG/DL (70-105)
[2017-08-04] MEDS: LIDOCAINE 5% (LIDODERM) PATCH TD (21:28)
[2017-08-04] MEDS: ATORVASTATIN 10 MG TAB PO (21:29)
[2017-08-05] MEDS: oxyCODONE 5MG TAB PO ×2 (02:41→11:23)
[2017-08-05] MEDS: ACETAMINOPHEN TAB 650MG DOSE (2X325MG) PO ×2 (02:44→11:22)
[2017-08-05 06:32] LABS: HEMATOCRIT 40.9 % (42.0-52.0); HEMOGLOBIN 12.9 g/dl (14.0-18.0); MEAN CORPUSCULAR HEMOGLOBIN 26.6 pg (27.0-33.0); MEAN CORPUSCULAR HGB CONC 31.5 g/dl (32.0-36.5); MEAN CORPUSCULAR VOLUME 84.3 fl (80.0-96.0); PLATELET COUNT, AUTOMATED 412 10^3/uL (150-450); RED BLOOD COUNT 4.85 10^6/uL (4.30-6.10); RED CELL DISTRIBUTION WIDTH 15.7 % (11.5-14.5); WHITE BLOOD COUNT 6.2 10^3/uL (4.0-10.0)
[2017-08-05 06:41] LABS: BEDSIDE GLUCOSE 260 MG/DL (70-105)
[2017-08-05 06:45] LABS: INR 1.57; PROTHROMBIN TIME 19.2 SECONDS (12.4-14.5)
[2017-08-05 06:56] LABS: C REACTIVE PROTEIN QUANTITATIV < 0.30 MG/DL (0.00-0.30)
[2017-08-05] MEDS: MAGNESIUM OXIDE 400 MG TAB (MAG-OX) PO ×3 (08:16→21:40)
[2017-08-05] MEDS: OMEPRAZOLE 20 MG CAP PO (08:17)
[2017-08-05] MEDS: oxyCODONE 20 MG CR TAB PO ×2 (08:17→21:41)
[2017-08-05] MEDS: VITAMIN D 1,000 INTERNATIONAL UNITS TABLET PO ×2 (08:18→21:40)
[2017-08-05] MEDS: **hydrALAZINE HCL** 25 MG TAB PO ×3 (08:18→21:47)
[2017-08-05] MEDS: MULTIVITAMINS/MINERALS THERAP 1 TAB PO (08:19)
[2017-08-05] MEDS: buPROPion **XL** TABLET 150MG (WELLBUTRIN XL) PO (08:21)
[2017-08-05] MEDS: FUROSEMIDE 20 MG TAB PO (08:21)
[2017-08-05] MEDS: CARVedilol 12.5 MG TAB PO ×2 (08:21→21:46)
[2017-08-05] MEDS: amLODIPine 5 MG TAB PO ×2 (08:21→21:47)
[2017-08-05] MEDS: FAMOTIDINE 20 MG TAB PO ×2 (08:21→21:40)
[2017-08-05] MEDS: HumaLOG INSULIN (NovoLOG) PER UNIT SC ×4 (08:22→21:42)
[2017-08-05] MEDS: AUGMENTIN 875 MG TAB PO ×2 (08:23→21:40)
[2017-08-05] MEDS: **NOTE PATIENT COMMENT** MISC XX (08:23)
[2017-08-05] MEDS: LEVEMIR (INSULIN DETEMIR) 1 UNITS/0.01ML SC ×2 (08:23→21:41)
[2017-08-05 10:12] LABS: BEDSIDE GLUCOSE 200 MG/DL (70-105)
[2017-08-05 11:44] LABS: BEDSIDE GLUCOSE 207 MG/DL (70-105)
[2017-08-05] MEDS: WARFARIN SOD 4 MG TAB PO (16:42)
[2017-08-05 16:54] LABS: BEDSIDE GLUCOSE 203 MG/DL (70-105)
[2017-08-05 20:58] LABS: BEDSIDE GLUCOSE 279 MG/DL (70-105)
[2017-08-05] MEDS: ATORVASTATIN 10 MG TAB PO (21:39)
[2017-08-05] MEDS: AMITRIPTYLINE 50 MG TAB PO (21:40)
[2017-08-05] MEDS: LIDOCAINE 5% (LIDODERM) PATCH TD (21:42)
[2017-08-05] MEDS: DICLOFENAC EPOLAMINE 1.3 % PATCH TOP (22:06)
[2017-08-06] MEDS: oxyCODONE 5MG TAB PO ×3 (02:40→21:11)
[2017-08-06 06:14] LABS: BEDSIDE GLUCOSE 159 MG/DL (70-105)
[2017-08-06] MEDS: oxyCODONE 20 MG CR TAB PO ×2 (08:17→21:10)
[2017-08-06] MEDS: MULTIVITAMINS/MINERALS THERAP 1 TAB PO (08:17)
[2017-08-06] MEDS: amLODIPine 5 MG TAB PO ×2 (08:18→21:11)
[2017-08-06] MEDS: FUROSEMIDE 20 MG TAB PO (08:18)
[2017-08-06] MEDS: **hydrALAZINE HCL** 25 MG TAB PO ×3 (08:18→21:12)
[2017-08-06] MEDS: VITAMIN D 1,000 INTERNATIONAL UNITS TABLET PO ×2 (08:18→21:11)
[2017-08-06] MEDS: AUGMENTIN 875 MG TAB PO ×2 (08:19→21:12)
[2017-08-06] MEDS: MAGNESIUM OXIDE 400 MG TAB (MAG-OX) PO ×3 (08:19→21:13)
[2017-08-06] MEDS: CARVedilol 12.5 MG TAB PO ×2 (08:19→21:12)
[2017-08-06] MEDS: OMEPRAZOLE 20 MG CAP PO (08:19)
[2017-08-06] MEDS: FAMOTIDINE 20 MG TAB PO ×2 (08:19→21:12)
[2017-08-06] MEDS: LEVEMIR (INSULIN DETEMIR) 1 UNITS/0.01ML SC ×2 (08:20→21:11)
[2017-08-06] MEDS: buPROPion **XL** TABLET 150MG (WELLBUTRIN XL) PO (08:20)
[2017-08-06] MEDS: HumaLOG INSULIN (NovoLOG) PER UNIT SC ×4 (08:20→21:00)
[2017-08-06] MEDS: AQUAPHOR **100GM** OINT TOP (08:21)
[2017-08-06] MEDS: **NOTE PATIENT COMMENT** MISC XX (08:21)
[2017-08-06 10:00] LABS: INR 1.47; PROTHROMBIN TIME 18.2 SECONDS (12.4-14.5)
[2017-08-06] MEDS: ENOXAPARIN 150 MG/ML SYR (J1650) SC ×2 (10:10→21:24)
[2017-08-06] MEDS: WARFARIN SOD 4 MG TAB PO (16:11)
[2017-08-06] MEDS: LIDOCAINE 5% (LIDODERM) PATCH TD (21:10)
[2017-08-06] MEDS: ATORVASTATIN 10 MG TAB PO (21:11)
[2017-08-06] MEDS: AMITRIPTYLINE 50 MG TAB PO (21:12)
[2017-08-06 23:26] LABS: BEDSIDE GLUCOSE 248 MG/DL (70-105)
[2017-08-06 23:26] LABS: BEDSIDE GLUCOSE 253 MG/DL (70-105)
[2017-08-06 23:26] LABS: BEDSIDE GLUCOSE 225 MG/DL (70-105)
[2017-08-07] MEDS: oxyCODONE 5MG TAB PO ×3 (02:06→17:49)
[2017-08-07 06:57] LABS: BEDSIDE GLUCOSE 278 MG/DL (70-105)
[2017-08-07 07:01] LABS: HEMATOCRIT 39.9 % (42.0-52.0); HEMOGLOBIN 12.8 g/dl (14.0-18.0); MEAN CORPUSCULAR HEMOGLOBIN 27.2 pg (27.0-33.0); MEAN CORPUSCULAR HGB CONC 32.1 g/dl (32.0-36.5); MEAN CORPUSCULAR VOLUME 84.7 fl (80.0-96.0); PLATELET COUNT, AUTOMATED 381 10^3/uL (150-450); RED BLOOD COUNT 4.71 10^6/uL (4.30-6.10); RED CELL DISTRIBUTION WIDTH 15.6 % (11.5-14.5); WHITE BLOOD COUNT 6.6 10^3/uL (4.0-10.0)
[2017-08-07 07:16] LABS: INR 1.37; PROTHROMBIN TIME 17.2 SECONDS (12.4-14.5)
[2017-08-07 07:21] LABS: ANION GAP 7 MEQ/L (8-16); BLOOD UREA NITROGEN 17 MG/DL (7-18); CALCIUM LEVEL 9.4 MG/DL (8.5-10.1); CARBON DIOXIDE LEVEL 27 MEQ/L (21-32); CHLORIDE LEVEL 107 MEQ/L (98-107); CREATININE FOR GFR 1.26 MG/DL (0.70-1.30); GLOMERULAR FILTRATION RATE > 60.0 (>56); GLUCOSE, FASTING 318 MG/DL (70-100); POTASSIUM SERUM 3.9 MEQ/L (3.5-5.1); SODIUM LEVEL 141 MEQ/L (136-145)
[2017-08-07 07:39] LABS: ERYTHROCYTE SEDIMENTATION RATE 5 mm/hr (0-20)
[2017-08-07] MEDS: FUROSEMIDE 20 MG TAB PO (09:38)
[2017-08-07] MEDS: AUGMENTIN 875 MG TAB PO ×2 (09:38→22:29)
[2017-08-07] MEDS: oxyCODONE 20 MG CR TAB PO ×2 (09:38→22:29)
[2017-08-07] MEDS: MULTIVITAMINS/MINERALS THERAP 1 TAB PO (09:38)
[2017-08-07] MEDS: amLODIPine 5 MG TAB PO ×2 (09:39→22:31)
[2017-08-07] MEDS: VITAMIN D 1,000 INTERNATIONAL UNITS TABLET PO ×2 (09:39→22:30)
[2017-08-07] MEDS: CARVedilol 12.5 MG TAB PO ×2 (09:39→22:30)
[2017-08-07] MEDS: buPROPion **XL** TABLET 150MG (WELLBUTRIN XL) PO (09:39)
[2017-08-07] MEDS: FAMOTIDINE 20 MG TAB PO ×2 (09:39→22:30)
[2017-08-07] MEDS: **hydrALAZINE HCL** 25 MG TAB PO ×3 (09:40→22:32)
[2017-08-07] MEDS: OMEPRAZOLE 20 MG CAP PO (09:40)
[2017-08-07] MEDS: MAGNESIUM OXIDE 400 MG TAB (MAG-OX) PO ×3 (09:40→22:32)
[2017-08-07] MEDS: LEVEMIR (INSULIN DETEMIR) 1 UNITS/0.01ML SC ×2 (09:41→22:33)
[2017-08-07] MEDS: HumaLOG INSULIN (NovoLOG) PER UNIT SC ×4 (09:41→21:00)
[2017-08-07] MEDS: ENOXAPARIN 150 MG/ML SYR (J1650) SC ×2 (09:45→22:33)
[2017-08-07] MEDS: **NOTE PATIENT COMMENT** MISC XX (09:45)
[2017-08-07 11:59] LABS: BEDSIDE GLUCOSE 323 MG/DL (70-105)
[2017-08-07] MEDS: DICLOFENAC EPOLAMINE 1.3 % PATCH TOP (13:26)
[2017-08-07 17:30] LABS: BEDSIDE GLUCOSE 220 MG/DL (70-105)
[2017-08-07] MEDS: WARFARIN SOD 5 MG TAB PO (17:50)
[2017-08-07 22:25] LABS: BEDSIDE GLUCOSE 179 MG/DL (70-105)
[2017-08-07] MEDS: ATORVASTATIN 10 MG TAB PO (22:30)
[2017-08-07] MEDS: AMITRIPTYLINE 50 MG TAB PO (22:31)
[2017-08-07] MEDS: LIDOCAINE 5% (LIDODERM) PATCH TD (22:33)
[2017-08-08 06:32] LABS: HEMATOCRIT 39.3 % (42.0-52.0); HEMOGLOBIN 12.4 g/dl (14.0-18.0); MEAN CORPUSCULAR HEMOGLOBIN 26.7 pg (27.0-33.0); MEAN CORPUSCULAR HGB CONC 31.6 g/dl (32.0-36.5); MEAN CORPUSCULAR VOLUME 84.5 fl (80.0-96.0); PLATELET COUNT, AUTOMATED 368 10^3/uL (150-450); RED BLOOD COUNT 4.65 10^6/uL (4.30-6.10); RED CELL DISTRIBUTION WIDTH 15.7 % (11.5-14.5); WHITE BLOOD COUNT 6.4 10^3/uL (4.0-10.0)
[2017-08-08 06:52] LABS: ANION GAP 9 MEQ/L (8-16); BLOOD UREA NITROGEN 17 MG/DL (7-18); CALCIUM LEVEL 9.8 MG/DL (8.5-10.1); CARBON DIOXIDE LEVEL 28 MEQ/L (21-32); CHLORIDE LEVEL 107 MEQ/L (98-107); CREATININE FOR GFR 1.18 MG/DL (0.70-1.30); GLOMERULAR FILTRATION RATE > 60.0 (>56); GLUCOSE, FASTING 171 MG/DL (70-100); POTASSIUM SERUM 3.6 MEQ/L (3.5-5.1); SODIUM LEVEL 144 MEQ/L (136-145)
[2017-08-08] MEDS: OMEPRAZOLE 20 MG CAP PO (08:38)
[2017-08-08] MEDS: MULTIVITAMINS/MINERALS THERAP 1 TAB PO (08:38)
[2017-08-08] MEDS: CARVedilol 12.5 MG TAB PO ×2 (08:39→22:01)
[2017-08-08] MEDS: oxyCODONE 20 MG CR TAB PO ×2 (08:39→21:59)
[2017-08-08] MEDS: MAGNESIUM OXIDE 400 MG TAB (MAG-OX) PO ×3 (08:40→22:00)
[2017-08-08] MEDS: AUGMENTIN 875 MG TAB PO ×2 (08:40→21:59)
[2017-08-08] MEDS: **hydrALAZINE HCL** 25 MG TAB PO ×3 (08:40→22:01)
[2017-08-08] MEDS: buPROPion **XL** TABLET 150MG (WELLBUTRIN XL) PO (08:40)
[2017-08-08] MEDS: VITAMIN D 1,000 INTERNATIONAL UNITS TABLET PO ×2 (08:40→21:59)
[2017-08-08] MEDS: amLODIPine 5 MG TAB PO ×2 (08:41→22:00)
[2017-08-08] MEDS: FUROSEMIDE 20 MG TAB PO (08:41)
[2017-08-08] MEDS: FAMOTIDINE 20 MG TAB PO ×2 (08:41→22:00)
[2017-08-08] MEDS: LEVEMIR (INSULIN DETEMIR) 1 UNITS/0.01ML SC ×2 (08:41→22:02)
[2017-08-08] MEDS: ENOXAPARIN 150 MG/ML SYR (J1650) SC ×2 (08:42→22:02)
[2017-08-08] MEDS: HumaLOG INSULIN (NovoLOG) PER UNIT SC ×4 (08:42→21:00)
[2017-08-08] MEDS: **NOTE PATIENT COMMENT** MISC XX (08:42)
[2017-08-08] MEDS: DICLOFENAC EPOLAMINE 1.3 % PATCH TOP (10:33)
[2017-08-08 10:46] LABS: INR 1.32; PROTHROMBIN TIME 16.7 SECONDS (12.4-14.5)
[2017-08-08 12:33] LABS: BEDSIDE GLUCOSE 160 MG/DL (70-105)
[2017-08-08] MEDS: oxyCODONE 5MG TAB PO (15:58)
[2017-08-08] MEDS: WARFARIN SOD 5 MG TAB PO (16:01)
[2017-08-08 17:00] LABS: BEDSIDE GLUCOSE 220 MG/DL (70-105)
[2017-08-08 20:10] LABS: BEDSIDE GLUCOSE 184 MG/DL (70-105)
[2017-08-08] MEDS: AMITRIPTYLINE 50 MG TAB PO (21:59)
[2017-08-08] MEDS: ATORVASTATIN 10 MG TAB PO (22:00)
[2017-08-08] MEDS: LIDOCAINE 5% (LIDODERM) PATCH TD (22:02)
[2017-08-09] MEDS: oxyCODONE 5MG TAB PO ×3 (02:17→23:11)
[2017-08-09 05:59] LABS: HEMOGLOBIN 12.6 g/dl (14.0-18.0); MEAN CORPUSCULAR HEMOGLOBIN 26.5 pg (27.0-33.0); MEAN CORPUSCULAR HGB CONC 31.5 g/dl (32.0-36.5); PLATELET COUNT, AUTOMATED 364 10^3/uL (150-450); RED BLOOD COUNT 4.76 10^6/uL (4.30-6.10); RED CELL DISTRIBUTION WIDTH 15.5 % (11.5-14.5); WHITE BLOOD COUNT 6.4 10^3/uL (4.0-10.0)
[2017-08-09 06:24] LABS: INR 1.38; PROTHROMBIN TIME 17.3 SECONDS (12.4-14.5)
[2017-08-09 06:35] LABS: ANION GAP 7 MEQ/L (8-16); BLOOD UREA NITROGEN 18 MG/DL (7-18); CALCIUM LEVEL 9.7 MG/DL (8.5-10.1); CARBON DIOXIDE LEVEL 29 MEQ/L (21-32); CHLORIDE LEVEL 109 MEQ/L (98-107); CREATININE FOR GFR 1.21 MG/DL (0.70-1.30); GLOMERULAR FILTRATION RATE > 60.0 (>56); GLUCOSE, FASTING 217 MG/DL (70-100); POTASSIUM SERUM 3.9 MEQ/L (3.5-5.1); SODIUM LEVEL 145 MEQ/L (136-145)
[2017-08-09] MEDS: **NOTE PATIENT COMMENT** MISC XX (09:00)
[2017-08-09] MEDS: HumaLOG INSULIN (NovoLOG) PER UNIT SC ×4 (09:30→20:12)
[2017-08-09] MEDS: LEVEMIR (INSULIN DETEMIR) 1 UNITS/0.01ML SC ×2 (09:31→20:28)
[2017-08-09] MEDS: oxyCODONE 20 MG CR TAB PO ×2 (09:31→20:25)
[2017-08-09] MEDS: ENOXAPARIN 150 MG/ML SYR (J1650) SC ×2 (09:32→20:25)
[2017-08-09] MEDS: buPROPion **XL** TABLET 150MG (WELLBUTRIN XL) PO (09:32)
[2017-08-09] MEDS: **hydrALAZINE HCL** 25 MG TAB PO ×3 (09:32→20:26)
[2017-08-09] MEDS: MULTIVITAMINS/MINERALS THERAP 1 TAB PO (09:33)
[2017-08-09] MEDS: CARVedilol 12.5 MG TAB PO ×2 (09:33→20:26)
[2017-08-09] MEDS: VITAMIN D 1,000 INTERNATIONAL UNITS TABLET PO ×2 (09:33→20:26)
[2017-08-09] MEDS: FAMOTIDINE 20 MG TAB PO ×2 (09:34→20:27)
[2017-08-09] MEDS: FUROSEMIDE 20 MG TAB PO (09:34)
[2017-08-09] MEDS: amLODIPine 5 MG TAB PO ×2 (09:34→20:26)
[2017-08-09] MEDS: MAGNESIUM OXIDE 400 MG TAB (MAG-OX) PO ×3 (09:34→20:27)
[2017-08-09] MEDS: OMEPRAZOLE 20 MG CAP PO (09:34)
[2017-08-09] MEDS: AUGMENTIN 875 MG TAB PO ×2 (09:34→20:26)
[2017-08-09] MEDS: AQUAPHOR **100GM** OINT TOP (09:35)
[2017-08-09 11:48] LABS: BEDSIDE GLUCOSE 182 MG/DL (70-105)
[2017-08-09] MEDS: DICLOFENAC EPOLAMINE 1.3 % PATCH TOP (12:45)
[2017-08-09] MEDS: ACETAMINOPHEN TAB 650MG DOSE (2X325MG) PO (14:36)
[2017-08-09] MEDS: WARFARIN SOD 5 MG TAB PO (16:25)
[2017-08-09 17:31] LABS: BEDSIDE GLUCOSE 184 MG/DL (70-105)
[2017-08-09 19:58] LABS: BEDSIDE GLUCOSE 223 MG/DL (70-105)
[2017-08-09] MEDS: AMITRIPTYLINE 50 MG TAB PO (20:26)
[2017-08-09] MEDS: ATORVASTATIN 10 MG TAB PO (20:26)
[2017-08-09] MEDS: LIDOCAINE 5% (LIDODERM) PATCH TD (20:27)
[2017-08-10 06:14] LABS: HEMATOCRIT 39.3 % (42.0-52.0); HEMOGLOBIN 12.5 g/dl (14.0-18.0); MEAN CORPUSCULAR HEMOGLOBIN 26.9 pg (27.0-33.0); MEAN CORPUSCULAR HGB CONC 31.8 g/dl (32.0-36.5); MEAN CORPUSCULAR VOLUME 84.7 fl (80.0-96.0); PLATELET COUNT, AUTOMATED 349 10^3/uL (150-450); RED BLOOD COUNT 4.64 10^6/uL (4.30-6.10); RED CELL DISTRIBUTION WIDTH 15.4 % (11.5-14.5); WHITE BLOOD COUNT 6.1 10^3/uL (4.0-10.0)
[2017-08-10 06:25] LABS: INR 1.37; PROTHROMBIN TIME 17.2 SECONDS (12.4-14.5)
[2017-08-10 06:30] LABS: ANION GAP 7 MEQ/L (8-16); BLOOD UREA NITROGEN 17 MG/DL (7-18); CALCIUM LEVEL 9.8 MG/DL (8.5-10.1); CARBON DIOXIDE LEVEL 29 MEQ/L (21-32); CHLORIDE LEVEL 105 MEQ/L (98-107); CREATININE FOR GFR 1.25 MG/DL (0.70-1.30); GLOMERULAR FILTRATION RATE > 60.0 (>56); GLUCOSE, FASTING 306 MG/DL (70-100); POTASSIUM SERUM 4.1 MEQ/L (3.5-5.1); SODIUM LEVEL 141 MEQ/L (136-145)
[2017-08-10] MEDS: HumaLOG INSULIN (NovoLOG) PER UNIT SC ×4 (07:51→20:48)
[2017-08-10] MEDS: oxyCODONE 20 MG CR TAB PO ×2 (07:52→20:56)
[2017-08-10] MEDS: FAMOTIDINE 20 MG TAB PO ×2 (07:52→20:51)
[2017-08-10] MEDS: MULTIVITAMINS/MINERALS THERAP 1 TAB PO (07:52)
[2017-08-10] MEDS: buPROPion **XL** TABLET 150MG (WELLBUTRIN XL) PO (07:53)
[2017-08-10] MEDS: MAGNESIUM OXIDE 400 MG TAB (MAG-OX) PO ×3 (07:53→20:50)
[2017-08-10] MEDS: ENOXAPARIN 150 MG/ML SYR (J1650) SC ×2 (07:53→20:47)
[2017-08-10] MEDS: AUGMENTIN 875 MG TAB PO ×2 (07:53→20:49)
[2017-08-10] MEDS: **hydrALAZINE HCL** 25 MG TAB PO ×3 (07:54→20:50)
[2017-08-10] MEDS: FUROSEMIDE 20 MG TAB PO (07:54)
[2017-08-10] MEDS: OMEPRAZOLE 20 MG CAP PO (07:54)
[2017-08-10] MEDS: VITAMIN D 1,000 INTERNATIONAL UNITS TABLET PO ×2 (07:54→20:49)
[2017-08-10] MEDS: CARVedilol 12.5 MG TAB PO ×2 (07:55→20:51)
[2017-08-10] MEDS: amLODIPine 5 MG TAB PO ×2 (07:55→20:52)
[2017-08-10] MEDS: LEVEMIR (INSULIN DETEMIR) 1 UNITS/0.01ML SC ×2 (07:56→20:48)
[2017-08-10] MEDS: **NOTE PATIENT COMMENT** MISC XX (08:21)
[2017-08-10 11:32] LABS: BEDSIDE GLUCOSE 172 MG/DL (70-105)
[2017-08-10] MEDS: oxyCODONE 5MG TAB PO (12:08)
[2017-08-10] MEDS: WARFARIN SOD 5 MG TAB PO (16:12)
[2017-08-10 17:07] LABS: BEDSIDE GLUCOSE 235 MG/DL (70-105)
[2017-08-10 19:58] LABS: BEDSIDE GLUCOSE 255 MG/DL (70-105)
[2017-08-10] MEDS: LIDOCAINE 5% (LIDODERM) PATCH TD (20:47)
[2017-08-10] MEDS: AMITRIPTYLINE 50 MG TAB PO (20:50)
[2017-08-10] MEDS: ATORVASTATIN 10 MG TAB PO (20:52)
[2017-08-11] MEDS: oxyCODONE 5MG TAB PO ×2 (00:19→14:09)
[2017-08-11] MEDS: DICLOFENAC EPOLAMINE 1.3 % PATCH TOP ×3 (01:35→20:45)
[2017-08-11 06:19] LABS: HEMATOCRIT 38.9 % (42.0-52.0); HEMOGLOBIN 12.5 g/dl (14.0-18.0); MEAN CORPUSCULAR HEMOGLOBIN 27.2 pg (27.0-33.0); MEAN CORPUSCULAR HGB CONC 32.1 g/dl (32.0-36.5); MEAN CORPUSCULAR VOLUME 84.7 fl (80.0-96.0); PLATELET COUNT, AUTOMATED 320 10^3/uL (150-450); RED BLOOD COUNT 4.59 10^6/uL (4.30-6.10); RED CELL DISTRIBUTION WIDTH 15.4 % (11.5-14.5)
[2017-08-11 06:36] LABS: INR 1.46; PROTHROMBIN TIME 18.1 SECONDS (12.4-14.5)
[2017-08-11 06:38] LABS: ANION GAP 6 MEQ/L (8-16); BLOOD UREA NITROGEN 16 MG/DL (7-18); CALCIUM LEVEL 9.6 MG/DL (8.5-10.1); CARBON DIOXIDE LEVEL 29 MEQ/L (21-32); CHLORIDE LEVEL 106 MEQ/L (98-107); CREATININE FOR GFR 1.28 MG/DL (0.70-1.30); GLOMERULAR FILTRATION RATE > 60.0 (>56); GLUCOSE, FASTING 316 MG/DL (70-100); SODIUM LEVEL 141 MEQ/L (136-145)
[2017-08-11] MEDS: HumaLOG INSULIN (NovoLOG) PER UNIT SC ×4 (08:47→20:44)
[2017-08-11] MEDS: AUGMENTIN 875 MG TAB PO ×2 (08:48→20:45)
[2017-08-11] MEDS: CARVedilol 12.5 MG TAB PO ×2 (08:49→20:47)
[2017-08-11] MEDS: FUROSEMIDE 20 MG TAB PO (08:49)
[2017-08-11] MEDS: MULTIVITAMINS/MINERALS THERAP 1 TAB PO (08:50)
[2017-08-11] MEDS: VITAMIN D 1,000 INTERNATIONAL UNITS TABLET PO ×2 (08:50→20:45)
[2017-08-11] MEDS: OMEPRAZOLE 20 MG CAP PO (08:50)
[2017-08-11] MEDS: buPROPion **XL** TABLET 150MG (WELLBUTRIN XL) PO (08:50)
[2017-08-11] MEDS: amLODIPine 5 MG TAB PO ×2 (08:50→20:46)
[2017-08-11] MEDS: FAMOTIDINE 20 MG TAB PO ×2 (08:50→20:46)
[2017-08-11] MEDS: LEVEMIR (INSULIN DETEMIR) 1 UNITS/0.01ML SC ×2 (08:51→20:44)
[2017-08-11] MEDS: oxyCODONE 20 MG CR TAB PO ×2 (08:52→20:50)
[2017-08-11] MEDS: MAGNESIUM OXIDE 400 MG TAB (MAG-OX) PO ×3 (08:53→20:47)
[2017-08-11] MEDS: ENOXAPARIN 150 MG/ML SYR (J1650) SC ×2 (08:54→20:45)
[2017-08-11] MEDS: **hydrALAZINE HCL** 25 MG TAB PO ×3 (08:54→20:46)
[2017-08-11] MEDS: **NOTE PATIENT COMMENT** MISC XX (09:13)
[2017-08-11] MEDS: AQUAPHOR **100GM** OINT TOP (09:14)
[2017-08-11 11:56] LABS: BEDSIDE GLUCOSE 115 MG/DL (70-105)
[2017-08-11 16:59] LABS: BEDSIDE GLUCOSE 197 MG/DL (70-105)
[2017-08-11] MEDS: WARFARIN SOD 5 MG TAB PO (17:12)
[2017-08-11] MEDS: LIDOCAINE 5% (LIDODERM) PATCH TD (20:45)
[2017-08-11] MEDS: AMITRIPTYLINE 50 MG TAB PO (20:46)
[2017-08-11] MEDS: ATORVASTATIN 10 MG TAB PO (20:47)
[2017-08-12] MEDS: oxyCODONE 5MG TAB PO ×2 (00:16→16:40)
[2017-08-12 03:01] LABS: BEDSIDE GLUCOSE 253 MG/DL (70-105)
[2017-08-12 06:06] LABS: HEMATOCRIT 39.7 % (42.0-52.0); HEMOGLOBIN 12.6 g/dl (14.0-18.0); MEAN CORPUSCULAR HEMOGLOBIN 26.9 pg (27.0-33.0); MEAN CORPUSCULAR HGB CONC 31.7 g/dl (32.0-36.5); MEAN CORPUSCULAR VOLUME 84.6 fl (80.0-96.0); PLATELET COUNT, AUTOMATED 345 10^3/uL (150-450); RED BLOOD COUNT 4.69 10^6/uL (4.30-6.10); RED CELL DISTRIBUTION WIDTH 15.3 % (11.5-14.5); WHITE BLOOD COUNT 5.9 10^3/uL (4.0-10.0)
[2017-08-12 06:17] LABS: INR 1.52; PROTHROMBIN TIME 18.7 SECONDS (12.4-14.5)
[2017-08-12 06:29] LABS: ANION GAP 6 MEQ/L (8-16); BLOOD UREA NITROGEN 14 MG/DL (7-18); CALCIUM LEVEL 9.3 MG/DL (8.5-10.1); CARBON DIOXIDE LEVEL 29 MEQ/L (21-32); CHLORIDE LEVEL 106 MEQ/L (98-107); CREATININE FOR GFR 1.25 MG/DL (0.70-1.30); GLOMERULAR FILTRATION RATE > 60.0 (>56); GLUCOSE, FASTING 323 MG/DL (70-100); POTASSIUM SERUM 4.1 MEQ/L (3.5-5.1); SODIUM LEVEL 141 MEQ/L (136-145)
[2017-08-12] MEDS: HumaLOG INSULIN (NovoLOG) PER UNIT SC ×5 (09:08→21:23)
[2017-08-12] MEDS: **hydrALAZINE HCL** 25 MG TAB PO ×3 (09:08→21:22)
[2017-08-12] MEDS: AUGMENTIN 875 MG TAB PO ×2 (09:09→21:21)
[2017-08-12] MEDS: CARVedilol 12.5 MG TAB PO ×2 (09:09→21:22)
[2017-08-12] MEDS: amLODIPine 5 MG TAB PO ×2 (09:10→21:20)
[2017-08-12] MEDS: FUROSEMIDE 20 MG TAB PO (09:10)
[2017-08-12] MEDS: MAGNESIUM OXIDE 400 MG TAB (MAG-OX) PO ×3 (09:10→21:21)
[2017-08-12] MEDS: oxyCODONE 20 MG CR TAB PO ×2 (09:11→21:21)
[2017-08-12] MEDS: FAMOTIDINE 20 MG TAB PO ×2 (09:11→21:21)
[2017-08-12] MEDS: buPROPion **XL** TABLET 150MG (WELLBUTRIN XL) PO (09:12)
[2017-08-12] MEDS: VITAMIN D 1,000 INTERNATIONAL UNITS TABLET PO ×2 (09:12→21:21)
[2017-08-12] MEDS: OMEPRAZOLE 20 MG CAP PO (09:12)
[2017-08-12] MEDS: MULTIVITAMINS/MINERALS THERAP 1 TAB PO (09:12)
[2017-08-12] MEDS: LEVEMIR (INSULIN DETEMIR) 1 UNITS/0.01ML SC ×2 (09:13→21:24)
[2017-08-12] MEDS: ENOXAPARIN 150 MG/ML SYR (J1650) SC ×2 (09:14→21:24)
[2017-08-12] MEDS: DICLOFENAC EPOLAMINE 1.3 % PATCH TOP ×2 (09:14→21:24)
[2017-08-12] MEDS: **NOTE PATIENT COMMENT** MISC XX (09:14)
[2017-08-12 11:57] LABS: BEDSIDE GLUCOSE 199 MG/DL (70-105)
[2017-08-12] MEDS: WARFARIN SOD 5 MG TAB PO (16:39)
[2017-08-12 17:07] LABS: BEDSIDE GLUCOSE 168 MG/DL (70-105)
[2017-08-12 20:55] LABS: BEDSIDE GLUCOSE 262 MG/DL (70-105)
[2017-08-12] MEDS: AMITRIPTYLINE 50 MG TAB PO (21:20)
[2017-08-12] MEDS: ATORVASTATIN 10 MG TAB PO (21:22)
[2017-08-12] MEDS: LIDOCAINE 5% (LIDODERM) PATCH TD (21:24)
[2017-08-13] MEDS: oxyCODONE 5MG TAB PO ×5 (01:29→18:37)
[2017-08-13 06:10] LABS: HEMATOCRIT 40.2 % (42.0-52.0); HEMOGLOBIN 12.8 g/dl (14.0-18.0); MEAN CORPUSCULAR HEMOGLOBIN 26.8 pg (27.0-33.0); MEAN CORPUSCULAR HGB CONC 31.8 g/dl (32.0-36.5); MEAN CORPUSCULAR VOLUME 84.3 fl (80.0-96.0); PLATELET COUNT, AUTOMATED 329 10^3/uL (150-450); RED BLOOD COUNT 4.77 10^6/uL (4.30-6.10); RED CELL DISTRIBUTION WIDTH 15.3 % (11.5-14.5); WHITE BLOOD COUNT 6.5 10^3/uL (4.0-10.0)
[2017-08-13 06:22] LABS: INR 1.72; PROTHROMBIN TIME 20.7 SECONDS (12.4-14.5)
[2017-08-13 06:31] LABS: ANION GAP 5 MEQ/L (8-16); BLOOD UREA NITROGEN 17 MG/DL (7-18); CALCIUM LEVEL 9.4 MG/DL (8.5-10.1); CARBON DIOXIDE LEVEL 29 MEQ/L (21-32); CHLORIDE LEVEL 106 MEQ/L (98-107); CREATININE FOR GFR 1.26 MG/DL (0.70-1.30); GLOMERULAR FILTRATION RATE > 60.0 (>56); GLUCOSE, FASTING 222 MG/DL (70-100); MAGNESIUM LEVEL 1.6 MG/DL (1.8-2.4); POTASSIUM SERUM 4.1 MEQ/L (3.5-5.1); SODIUM LEVEL 140 MEQ/L (136-145)
[2017-08-13] MEDS: MAGNESIUM OXIDE 400 MG TAB (MAG-OX) PO ×6 (06:58→20:54)
[2017-08-13] MEDS: HumaLOG INSULIN (NovoLOG) PER UNIT SC ×4 (07:30→20:43)
[2017-08-13] MEDS: AQUAPHOR **100GM** OINT TOP (09:00)
[2017-08-13] MEDS: VITAMIN D 1,000 INTERNATIONAL UNITS TABLET PO ×2 (09:50→20:53)
[2017-08-13] MEDS: OMEPRAZOLE 20 MG CAP PO (09:50)
[2017-08-13] MEDS: AUGMENTIN 875 MG TAB PO ×2 (09:51→20:53)
[2017-08-13] MEDS: MULTIVITAMINS/MINERALS THERAP 1 TAB PO (09:51)
[2017-08-13] MEDS: FAMOTIDINE 20 MG TAB PO ×2 (09:51→20:56)
[2017-08-13] MEDS: FUROSEMIDE 20 MG TAB PO (09:51)
[2017-08-13] MEDS: ENOXAPARIN 150 MG/ML SYR (J1650) SC ×2 (09:52→20:56)
[2017-08-13] MEDS: buPROPion **XL** TABLET 150MG (WELLBUTRIN XL) PO (09:57)
[2017-08-13] MEDS: oxyCODONE 20 MG CR TAB PO ×2 (09:58→20:53)
[2017-08-13] MEDS: CARVedilol 12.5 MG TAB PO ×2 (10:01→20:55)
[2017-08-13] MEDS: **hydrALAZINE HCL** 25 MG TAB PO ×3 (10:01→20:55)
[2017-08-13] MEDS: amLODIPine 5 MG TAB PO ×2 (10:02→20:56)
[2017-08-13] MEDS: LEVEMIR (INSULIN DETEMIR) 1 UNITS/0.01ML SC ×2 (10:04→20:53)
[2017-08-13] MEDS: DICLOFENAC EPOLAMINE 1.3 % PATCH TOP ×2 (10:07→20:52)
[2017-08-13] MEDS: **NOTE PATIENT COMMENT** MISC XX (10:08)
[2017-08-13 12:29] LABS: BEDSIDE GLUCOSE 162 MG/DL (70-105)
[2017-08-13] MEDS: CETIRIZINE (ZyrTEC) 10 MG TAB PO (15:32)
[2017-08-13] MEDS: WARFARIN SOD 5 MG TAB PO (16:18)
[2017-08-13] MEDS: CEPACOL LOZENGE PO (16:19)
[2017-08-13 17:17] LABS: BEDSIDE GLUCOSE 216 MG/DL (70-105)
[2017-08-13] MEDS: LIDOCAINE 5% (LIDODERM) PATCH TD (20:52)
[2017-08-13] MEDS: AMITRIPTYLINE 50 MG TAB PO (20:55)
[2017-08-13] MEDS: ATORVASTATIN 10 MG TAB PO (20:56)
[2017-08-13 21:22] LABS: BEDSIDE GLUCOSE 201 MG/DL (70-105)
[2017-08-14] MEDS: oxyCODONE 5MG TAB PO ×3 (02:49→17:32)
[2017-08-14] MEDS: CEPACOL LOZENGE PO (02:53)
[2017-08-14 06:43] LABS: BEDSIDE GLUCOSE 235 MG/DL (70-105)
[2017-08-14 06:50] LABS: INR 1.81; PROTHROMBIN TIME 21.5 SECONDS (12.4-14.5)
[2017-08-14 07:01] LABS: ERYTHROCYTE SEDIMENTATION RATE 5 mm/hr (0-20)
[2017-08-14] MEDS: HumaLOG INSULIN (NovoLOG) PER UNIT SC ×4 (08:26→21:00)
[2017-08-14] MEDS: LEVEMIR (INSULIN DETEMIR) 1 UNITS/0.01ML SC ×2 (08:26→21:13)
[2017-08-14] MEDS: DICLOFENAC EPOLAMINE 1.3 % PATCH TOP ×2 (08:27→21:14)
[2017-08-14] MEDS: ENOXAPARIN 150 MG/ML SYR (J1650) SC ×2 (08:27→21:14)
[2017-08-14] MEDS: MAGNESIUM OXIDE 400 MG TAB (MAG-OX) PO ×3 (08:29→21:11)
[2017-08-14] MEDS: **hydrALAZINE HCL** 25 MG TAB PO ×3 (08:29→21:12)
[2017-08-14] MEDS: CETIRIZINE (ZyrTEC) 10 MG TAB PO (08:30)
[2017-08-14] MEDS: AUGMENTIN 875 MG TAB PO ×2 (08:30→21:11)
[2017-08-14] MEDS: buPROPion **XL** TABLET 150MG (WELLBUTRIN XL) PO (08:31)
[2017-08-14] MEDS: MULTIVITAMINS/MINERALS THERAP 1 TAB PO (08:32)
[2017-08-14] MEDS: VITAMIN D 1,000 INTERNATIONAL UNITS TABLET PO ×2 (08:32→21:12)
[2017-08-14] MEDS: FAMOTIDINE 20 MG TAB PO ×2 (08:33→21:11)
[2017-08-14] MEDS: OMEPRAZOLE 20 MG CAP PO (08:33)
[2017-08-14] MEDS: FUROSEMIDE 20 MG TAB PO (08:34)
[2017-08-14] MEDS: oxyCODONE 20 MG CR TAB PO ×2 (08:34→21:13)
[2017-08-14] MEDS: CARVedilol 12.5 MG TAB PO ×2 (08:37→21:00)
[2017-08-14] MEDS: amLODIPine 5 MG TAB PO ×2 (08:37→21:11)
[2017-08-14] MEDS: **NOTE PATIENT COMMENT** MISC XX (08:38)
[2017-08-14] MEDS: ACETAMINOPHEN TAB 650MG DOSE (2X325MG) PO (11:08)
[2017-08-14 12:00] LABS: BEDSIDE GLUCOSE 149 MG/DL (70-105)
[2017-08-14 17:08] LABS: BEDSIDE GLUCOSE 275 MG/DL (70-105)
[2017-08-14] MEDS: WARFARIN SOD 5 MG TAB PO (17:31)
[2017-08-14 21:01] LABS: BEDSIDE GLUCOSE 250 MG/DL (70-105)
[2017-08-14] MEDS: ATORVASTATIN 10 MG TAB PO (21:11)
[2017-08-14] MEDS: AMITRIPTYLINE 50 MG TAB PO (21:11)
[2017-08-14] MEDS: LIDOCAINE 5% (LIDODERM) PATCH TD (21:14)
[2017-08-15] MEDS: oxyCODONE 5MG TAB PO ×4 (00:58→21:04)
[2017-08-15 05:33] LABS: INR 2.08; PROTHROMBIN TIME 24.1 SECONDS (12.4-14.5)
[2017-08-15 08:06] LABS: BEDSIDE GLUCOSE 232 MG/DL (70-105)
[2017-08-15] MEDS: **NOTE PATIENT COMMENT** MISC XX (09:00)
[2017-08-15] MEDS: AQUAPHOR **100GM** OINT TOP (09:00)
[2017-08-15] MEDS: LEVEMIR (INSULIN DETEMIR) 1 UNITS/0.01ML SC ×2 (09:22→21:07)
[2017-08-15] MEDS: MAGNESIUM OXIDE 400 MG TAB (MAG-OX) PO ×3 (09:24→21:06)
[2017-08-15] MEDS: **hydrALAZINE HCL** 25 MG TAB PO ×3 (09:27→21:05)
[2017-08-15] MEDS: CETIRIZINE (ZyrTEC) 10 MG TAB PO (09:29)
[2017-08-15] MEDS: oxyCODONE 20 MG CR TAB PO ×2 (09:31→21:03)
[2017-08-15] MEDS: DICLOFENAC EPOLAMINE 1.3 % PATCH TOP ×2 (09:31→21:07)
[2017-08-15] MEDS: VITAMIN D 1,000 INTERNATIONAL UNITS TABLET PO ×2 (09:36→21:04)
[2017-08-15] MEDS: HumaLOG INSULIN (NovoLOG) PER UNIT SC ×4 (09:36→21:00)
[2017-08-15] MEDS: FAMOTIDINE 20 MG TAB PO ×2 (09:37→21:06)
[2017-08-15] MEDS: OMEPRAZOLE 20 MG CAP PO (09:37)
[2017-08-15] MEDS: MULTIVITAMINS/MINERALS THERAP 1 TAB PO (09:37)
[2017-08-15] MEDS: FUROSEMIDE 20 MG TAB PO (09:38)
[2017-08-15] MEDS: CARVedilol 12.5 MG TAB PO ×2 (09:38→21:05)
[2017-08-15] MEDS: buPROPion **XL** TABLET 150MG (WELLBUTRIN XL) PO (09:38)
[2017-08-15] MEDS: amLODIPine 5 MG TAB PO ×2 (09:39→21:05)
[2017-08-15] MEDS: AUGMENTIN 875 MG TAB PO ×2 (09:52→21:11)
[2017-08-15 10:50] LABS: BEDSIDE GLUCOSE 264 MG/DL (70-105)
[2017-08-15 12:17] LABS: BEDSIDE GLUCOSE 364 MG/DL (70-105)
[2017-08-15] MEDS: WARFARIN SOD 5 MG TAB PO (16:55)
[2017-08-15 17:12] LABS: BEDSIDE GLUCOSE 151 MG/DL (70-105)
[2017-08-15 20:57] LABS: BEDSIDE GLUCOSE 209 MG/DL (70-105)
[2017-08-15] MEDS: ATORVASTATIN 10 MG TAB PO (21:07)
[2017-08-15] MEDS: AMITRIPTYLINE 50 MG TAB PO (21:07)
[2017-08-15] MEDS: LIDOCAINE 5% (LIDODERM) PATCH TD (21:07)
[2017-08-16] MEDS: oxyCODONE 5MG TAB PO ×3 (01:16→18:27)
[2017-08-16 05:58] LABS: INR 2.13; PROTHROMBIN TIME 24.6 SECONDS (12.4-14.5)
[2017-08-16 06:21] LABS: BEDSIDE GLUCOSE 280 MG/DL (70-105)
[2017-08-16] MEDS: HumaLOG INSULIN (NovoLOG) PER UNIT SC ×4 (08:00→21:00)
[2017-08-16] MEDS: LEVEMIR (INSULIN DETEMIR) 1 UNITS/0.01ML SC ×2 (08:01→21:42)
[2017-08-16] MEDS: oxyCODONE 20 MG CR TAB PO ×2 (08:02→21:46)
[2017-08-16] MEDS: DICLOFENAC EPOLAMINE 1.3 % PATCH TOP ×2 (08:03→21:42)
[2017-08-16] MEDS: OMEPRAZOLE 20 MG CAP PO (08:05)
[2017-08-16] MEDS: AUGMENTIN 875 MG TAB PO ×2 (08:05→21:59)
[2017-08-16] MEDS: CARVedilol 12.5 MG TAB PO ×2 (08:05→21:43)
[2017-08-16] MEDS: MULTIVITAMINS/MINERALS THERAP 1 TAB PO (08:06)
[2017-08-16] MEDS: VITAMIN D 1,000 INTERNATIONAL UNITS TABLET PO ×2 (08:06→21:43)
[2017-08-16] MEDS: MAGNESIUM OXIDE 400 MG TAB (MAG-OX) PO ×3 (08:06→21:45)
[2017-08-16] MEDS: FUROSEMIDE 20 MG TAB PO (08:07)
[2017-08-16] MEDS: CETIRIZINE (ZyrTEC) 10 MG TAB PO (08:07)
[2017-08-16] MEDS: FAMOTIDINE 20 MG TAB PO ×2 (08:07→21:44)
[2017-08-16] MEDS: amLODIPine 5 MG TAB PO ×2 (08:07→21:44)
[2017-08-16] MEDS: buPROPion **XL** TABLET 150MG (WELLBUTRIN XL) PO (08:07)
[2017-08-16] MEDS: **NOTE PATIENT COMMENT** MISC XX (08:08)
[2017-08-16] MEDS: **hydrALAZINE** 50 MG TAB PO ×3 (08:08→21:43)
[2017-08-16 12:02] LABS: BEDSIDE GLUCOSE 223 MG/DL (70-105)
[2017-08-16] MEDS: WARFARIN SOD 5 MG TAB PO (16:22)
[2017-08-16 17:24] LABS: BEDSIDE GLUCOSE 215 MG/DL (70-105)
[2017-08-16 20:57] LABS: BEDSIDE GLUCOSE 207 MG/DL (70-105)
[2017-08-16] MEDS: LIDOCAINE 5% (LIDODERM) PATCH TD (21:42)
[2017-08-16] MEDS: AMITRIPTYLINE 50 MG TAB PO (21:43)
[2017-08-16] MEDS: ATORVASTATIN 10 MG TAB PO (21:43)
[2017-08-17] MEDS: oxyCODONE 5MG TAB PO ×2 (02:40→11:58)
[2017-08-17 05:53] LABS: HEMATOCRIT 39.7 % (42.0-52.0); HEMOGLOBIN 12.2 g/dl (14.0-18.0); MEAN CORPUSCULAR HEMOGLOBIN 25.9 pg (27.0-33.0); MEAN CORPUSCULAR HGB CONC 30.7 g/dl (32.0-36.5); MEAN CORPUSCULAR VOLUME 84.3 fl (80.0-96.0); PLATELET COUNT, AUTOMATED 354 10^3/uL (150-450); RED BLOOD COUNT 4.71 10^6/uL (4.30-6.10); WHITE BLOOD COUNT 6.2 10^3/uL (4.0-10.0)
[2017-08-17 06:04] LABS: INR 2.31; PROTHROMBIN TIME 26.3 SECONDS (12.4-14.5)
[2017-08-17 06:16] LABS: ANION GAP 6 MEQ/L (8-16); BLOOD UREA NITROGEN 18 MG/DL (7-18); CALCIUM LEVEL 9.3 MG/DL (8.5-10.1); CARBON DIOXIDE LEVEL 29 MEQ/L (21-32); CHLORIDE LEVEL 107 MEQ/L (98-107); CREATININE FOR GFR 1.34 MG/DL (0.70-1.30); GLOMERULAR FILTRATION RATE 58.7 (>56); GLUCOSE, FASTING 313 MG/DL (70-100); MAGNESIUM LEVEL 1.5 MG/DL (1.8-2.4); POTASSIUM SERUM 4.2 MEQ/L (3.5-5.1); SODIUM LEVEL 142 MEQ/L (136-145)
[2017-08-17] MEDS: HumaLOG INSULIN (NovoLOG) PER UNIT SC ×4 (08:42→21:42)
[2017-08-17] MEDS: LEVEMIR (INSULIN DETEMIR) 1 UNITS/0.01ML SC ×2 (08:43→21:43)
[2017-08-17] MEDS: MAGNESIUM OXIDE 400 MG TAB (MAG-OX) PO ×6 (08:43→23:03)
[2017-08-17] MEDS: AUGMENTIN 875 MG TAB PO ×2 (08:43→21:40)
[2017-08-17] MEDS: MULTIVITAMINS/MINERALS THERAP 1 TAB PO (08:43)
[2017-08-17] MEDS: DICLOFENAC EPOLAMINE 1.3 % PATCH TOP ×2 (08:43→21:40)
[2017-08-17] MEDS: OMEPRAZOLE 20 MG CAP PO (08:43)
[2017-08-17] MEDS: FAMOTIDINE 20 MG TAB PO ×2 (08:44→21:42)
[2017-08-17] MEDS: **hydrALAZINE** 50 MG TAB PO ×3 (08:44→21:41)
[2017-08-17] MEDS: CETIRIZINE (ZyrTEC) 10 MG TAB PO (08:45)
[2017-08-17] MEDS: buPROPion **XL** TABLET 150MG (WELLBUTRIN XL) PO (08:45)
[2017-08-17] MEDS: VITAMIN D 1,000 INTERNATIONAL UNITS TABLET PO ×2 (08:45→21:40)
[2017-08-17] MEDS: amLODIPine 5 MG TAB PO ×2 (08:46→21:42)
[2017-08-17] MEDS: CARVedilol 12.5 MG TAB PO ×2 (08:46→21:40)
[2017-08-17] MEDS: FUROSEMIDE 20 MG TAB PO (08:46)
[2017-08-17] MEDS: **NOTE PATIENT COMMENT** MISC XX (08:47)
[2017-08-17] MEDS: oxyCODONE 20 MG CR TAB PO ×2 (08:47→21:44)
[2017-08-17] MEDS: AQUAPHOR **100GM** OINT TOP (08:48)
[2017-08-17] MEDS: ACETAMINOPHEN TAB 650MG DOSE (2X325MG) PO (14:29)
[2017-08-17 18:07] LABS: BEDSIDE GLUCOSE 232 MG/DL (70-105)
[2017-08-17 18:07] LABS: BEDSIDE GLUCOSE 217 MG/DL (70-105)
[2017-08-17] MEDS: WARFARIN SOD 5 MG TAB PO (18:21)
[2017-08-17] MEDS: AMITRIPTYLINE 50 MG TAB PO (21:42)
[2017-08-17] MEDS: ATORVASTATIN 10 MG TAB PO (21:42)
[2017-08-17] MEDS: LIDOCAINE 5% (LIDODERM) PATCH TD (21:43)
[2017-08-18] MEDS: oxyCODONE 5MG TAB PO ×2 (01:36→12:43)
[2017-08-18 06:06] LABS: INR 2.31; PROTHROMBIN TIME 26.3 SECONDS (12.4-14.5)
[2017-08-18] MEDS: oxyCODONE 20 MG CR TAB PO ×2 (08:25→21:47)
[2017-08-18] MEDS: HumaLOG INSULIN (NovoLOG) PER UNIT SC ×4 (08:25→21:00)
[2017-08-18] MEDS: LEVEMIR (INSULIN DETEMIR) 1 UNITS/0.01ML SC ×2 (08:26→21:45)
[2017-08-18] MEDS: DICLOFENAC EPOLAMINE 1.3 % PATCH TOP ×2 (08:26→22:24)
[2017-08-18] MEDS: CARVedilol 12.5 MG TAB PO ×2 (08:26→21:48)
[2017-08-18] MEDS: OMEPRAZOLE 20 MG CAP PO (08:26)
[2017-08-18] MEDS: buPROPion **XL** TABLET 150MG (WELLBUTRIN XL) PO (08:27)
[2017-08-18] MEDS: CETIRIZINE (ZyrTEC) 10 MG TAB PO (08:27)
[2017-08-18] MEDS: FAMOTIDINE 20 MG TAB PO ×2 (08:27→21:47)
[2017-08-18] MEDS: MULTIVITAMINS/MINERALS THERAP 1 TAB PO (08:27)
[2017-08-18] MEDS: FUROSEMIDE 20 MG TAB PO (08:27)
[2017-08-18] MEDS: amLODIPine 5 MG TAB PO ×2 (08:28→21:49)
[2017-08-18] MEDS: AUGMENTIN 875 MG TAB PO ×2 (08:28→21:47)
[2017-08-18] MEDS: MAGNESIUM OXIDE 400 MG TAB (MAG-OX) PO ×3 (08:28→21:48)
[2017-08-18] MEDS: VITAMIN D 1,000 INTERNATIONAL UNITS TABLET PO ×2 (08:28→21:45)
[2017-08-18] MEDS: **hydrALAZINE** 50 MG TAB PO ×3 (08:29→21:47)
[2017-08-18] MEDS: **NOTE PATIENT COMMENT** MISC XX (08:29)
[2017-08-18 12:09] LABS: BEDSIDE GLUCOSE 155 MG/DL (70-105)
[2017-08-18] MEDS: WARFARIN SOD 5 MG TAB PO (17:44)
[2017-08-18 21:06] LABS: BEDSIDE GLUCOSE 229 MG/DL (70-105)
[2017-08-18 21:06] LABS: BEDSIDE GLUCOSE 283 MG/DL (70-105)
[2017-08-18 21:06] LABS: BEDSIDE GLUCOSE 188 MG/DL (70-105)
[2017-08-18] MEDS: LIDOCAINE 5% (LIDODERM) PATCH TD (21:46)
[2017-08-18] MEDS: ATORVASTATIN 10 MG TAB PO (21:48)
[2017-08-18] MEDS: AMITRIPTYLINE 50 MG TAB PO (21:49)
[2017-08-19] MEDS: oxyCODONE 5MG TAB PO ×3 (03:25→22:57)
[2017-08-19 06:19] LABS: INR 2.48; PROTHROMBIN TIME 27.9 SECONDS (12.4-14.5)
[2017-08-19 06:56] LABS: BEDSIDE GLUCOSE 206 MG/DL (70-105)
[2017-08-19] MEDS: **NOTE PATIENT COMMENT** MISC XX (09:00)
[2017-08-19] MEDS: LEVEMIR (INSULIN DETEMIR) 1 UNITS/0.01ML SC ×2 (09:12→20:56)
[2017-08-19] MEDS: DICLOFENAC EPOLAMINE 1.3 % PATCH TOP ×2 (09:12→20:55)
[2017-08-19] MEDS: HumaLOG INSULIN (NovoLOG) PER UNIT SC ×4 (09:12→20:56)
[2017-08-19] MEDS: VITAMIN D 1,000 INTERNATIONAL UNITS TABLET PO ×2 (09:13→20:50)
[2017-08-19] MEDS: AUGMENTIN 875 MG TAB PO ×2 (09:13→20:55)
[2017-08-19] MEDS: buPROPion **XL** TABLET 150MG (WELLBUTRIN XL) PO (09:14)
[2017-08-19] MEDS: MAGNESIUM OXIDE 400 MG TAB (MAG-OX) PO ×3 (09:14→20:55)
[2017-08-19] MEDS: FUROSEMIDE 20 MG TAB PO (09:14)
[2017-08-19] MEDS: FAMOTIDINE 20 MG TAB PO ×2 (09:15→20:54)
[2017-08-19] MEDS: OMEPRAZOLE 20 MG CAP PO (09:15)
[2017-08-19] MEDS: MULTIVITAMINS/MINERALS THERAP 1 TAB PO (09:15)
[2017-08-19] MEDS: oxyCODONE 20 MG CR TAB PO ×2 (09:17→20:50)
[2017-08-19] MEDS: **hydrALAZINE** 50 MG TAB PO ×3 (09:18→20:54)
[2017-08-19] MEDS: CETIRIZINE (ZyrTEC) 10 MG TAB PO (09:19)
[2017-08-19] MEDS: amLODIPine 5 MG TAB PO ×2 (09:19→20:54)
[2017-08-19] MEDS: CARVedilol 12.5 MG TAB PO ×2 (09:19→20:53)
[2017-08-19] MEDS: AQUAPHOR **100GM** OINT TOP (09:20)
[2017-08-19] MEDS: WARFARIN SOD 5 MG TAB PO (16:00)
[2017-08-19] MEDS: AMITRIPTYLINE 50 MG TAB PO (20:54)
[2017-08-19] MEDS: ATORVASTATIN 10 MG TAB PO (20:54)
[2017-08-19] MEDS: LIDOCAINE 5% (LIDODERM) PATCH TD (20:55)
[2017-08-20 06:05] LABS: HEMATOCRIT 40.2 % (42.0-52.0); HEMOGLOBIN 12.5 g/dl (14.0-18.0); MEAN CORPUSCULAR HEMOGLOBIN 25.9 pg (27.0-33.0); MEAN CORPUSCULAR HGB CONC 31.1 g/dl (32.0-36.5); MEAN CORPUSCULAR VOLUME 83.4 fl (80.0-96.0); PLATELET COUNT, AUTOMATED 392 10^3/uL (150-450); RED BLOOD COUNT 4.82 10^6/uL (4.30-6.10); RED CELL DISTRIBUTION WIDTH 14.8 % (11.5-14.5); WHITE BLOOD COUNT 7.3 10^3/uL (4.0-10.0)
[2017-08-20 06:25] LABS: INR 2.54; PROTHROMBIN TIME 28.4 SECONDS (12.4-14.5)
[2017-08-20 06:28] LABS: ANION GAP 3 MEQ/L (8-16); BLOOD UREA NITROGEN 19 MG/DL (7-18); C REACTIVE PROTEIN QUANTITATIV < 0.30 MG/DL (0.00-0.30); CALCIUM LEVEL 9.6 MG/DL (8.5-10.1); CARBON DIOXIDE LEVEL 28 MEQ/L (21-32); CHLORIDE LEVEL 107 MEQ/L (98-107); CREATININE FOR GFR 1.41 MG/DL (0.70-1.30); GLOMERULAR FILTRATION RATE 55.4 (>56); GLUCOSE, FASTING 296 MG/DL (70-100); MAGNESIUM LEVEL 1.7 MG/DL (1.8-2.4); POTASSIUM SERUM 4.1 MEQ/L (3.5-5.1); SODIUM LEVEL 138 MEQ/L (136-145)
[2017-08-20] MEDS: HumaLOG INSULIN (NovoLOG) PER UNIT SC ×4 (07:53→21:11)
[2017-08-20] MEDS: LEVEMIR (INSULIN DETEMIR) 1 UNITS/0.01ML SC ×2 (07:53→21:10)
[2017-08-20] MEDS: OMEPRAZOLE 20 MG CAP PO (07:54)
[2017-08-20] MEDS: buPROPion **XL** TABLET 150MG (WELLBUTRIN XL) PO (07:54)
[2017-08-20] MEDS: VITAMIN D 1,000 INTERNATIONAL UNITS TABLET PO ×2 (07:54→21:05)
[2017-08-20] MEDS: MULTIVITAMINS/MINERALS THERAP 1 TAB PO (07:54)
[2017-08-20] MEDS: AUGMENTIN 875 MG TAB PO ×2 (07:54→21:08)
[2017-08-20] MEDS: CARVedilol 12.5 MG TAB PO ×2 (07:56→21:08)
[2017-08-20] MEDS: MAGNESIUM OXIDE 400 MG TAB (MAG-OX) PO ×3 (07:57→21:09)
[2017-08-20] MEDS: **hydrALAZINE** 50 MG TAB PO ×3 (07:57→21:09)
[2017-08-20] MEDS: CETIRIZINE (ZyrTEC) 10 MG TAB PO (07:57)
[2017-08-20] MEDS: amLODIPine 5 MG TAB PO ×2 (07:58→21:07)
[2017-08-20] MEDS: DICLOFENAC EPOLAMINE 1.3 % PATCH TOP ×2 (07:58→21:10)
[2017-08-20] MEDS: FUROSEMIDE 20 MG TAB PO (07:58)
[2017-08-20] MEDS: FAMOTIDINE 20 MG TAB PO ×2 (07:58→21:08)
[2017-08-20] MEDS: **NOTE PATIENT COMMENT** MISC XX (07:59)
[2017-08-20] MEDS: oxyCODONE 20 MG CR TAB PO ×2 (08:00→21:05)
[2017-08-20] MEDS: oxyCODONE 5MG TAB PO ×2 (11:19→18:16)
[2017-08-20 12:08] LABS: BEDSIDE GLUCOSE 208 MG/DL (70-105)
[2017-08-20 12:09] LABS: BEDSIDE GLUCOSE 222 MG/DL (70-105)
[2017-08-20 12:09] LABS: BEDSIDE GLUCOSE 197 MG/DL (70-105)
[2017-08-20 12:09] LABS: BEDSIDE GLUCOSE 228 MG/DL (70-105)
[2017-08-20] MEDS: WARFARIN SOD 5 MG TAB PO (17:05)
[2017-08-20 21:03] LABS: BEDSIDE GLUCOSE 265 MG/DL (70-105)
[2017-08-20] MEDS: ATORVASTATIN 10 MG TAB PO (21:05)
[2017-08-20] MEDS: AMITRIPTYLINE 50 MG TAB PO (21:08)
[2017-08-20] MEDS: LIDOCAINE 5% (LIDODERM) PATCH TD (21:10)
[2017-08-21] MEDS: oxyCODONE 5MG TAB PO ×4 (01:30→18:21)
[2017-08-21 06:13] LABS: INR 2.88; PROTHROMBIN TIME 31.4 SECONDS (12.4-14.5)
[2017-08-21] MEDS: AQUAPHOR **100GM** OINT TOP (09:00)
[2017-08-21] MEDS: **NOTE PATIENT COMMENT** MISC XX (09:00)
[2017-08-21] MEDS: OMEPRAZOLE 20 MG CAP PO (09:07)
[2017-08-21] MEDS: FAMOTIDINE 20 MG TAB PO ×2 (09:07→20:51)
[2017-08-21] MEDS: AUGMENTIN 875 MG TAB PO ×2 (09:07→20:52)
[2017-08-21] MEDS: VITAMIN D 1,000 INTERNATIONAL UNITS TABLET PO ×2 (09:07→20:52)
[2017-08-21] MEDS: amLODIPine 5 MG TAB PO ×2 (09:08→20:59)
[2017-08-21] MEDS: MULTIVITAMINS/MINERALS THERAP 1 TAB PO (09:08)
[2017-08-21] MEDS: buPROPion **XL** TABLET 150MG (WELLBUTRIN XL) PO (09:08)
[2017-08-21] MEDS: MAGNESIUM OXIDE 400 MG TAB (MAG-OX) PO ×3 (09:08→20:53)
[2017-08-21] MEDS: **hydrALAZINE** 50 MG TAB PO ×3 (09:09→20:53)
[2017-08-21] MEDS: CETIRIZINE (ZyrTEC) 10 MG TAB PO (09:09)
[2017-08-21] MEDS: FUROSEMIDE 20 MG TAB PO (09:09)
[2017-08-21] MEDS: CARVedilol 12.5 MG TAB PO ×2 (09:10→20:53)
[2017-08-21] MEDS: oxyCODONE 20 MG CR TAB PO ×2 (09:11→20:55)
[2017-08-21] MEDS: HumaLOG INSULIN (NovoLOG) PER UNIT SC ×4 (09:11→20:55)
[2017-08-21] MEDS: DICLOFENAC EPOLAMINE 1.3 % PATCH TOP ×2 (09:12→20:58)
[2017-08-21] MEDS: LEVEMIR (INSULIN DETEMIR) 1 UNITS/0.01ML SC ×2 (09:12→20:51)
[2017-08-21] MEDS: ACETAMINOPHEN TAB 650MG DOSE (2X325MG) PO ×2 (12:47→18:20)
[2017-08-21] MEDS: WARFARIN SOD 5 MG TAB PO (16:16)
[2017-08-21] MEDS: ATORVASTATIN 10 MG TAB PO (20:52)
[2017-08-21] MEDS: AMITRIPTYLINE 50 MG TAB PO (20:52)
[2017-08-21] MEDS: LIDOCAINE 5% (LIDODERM) PATCH TD (20:56)
[2017-08-22] MEDS: ACETAMINOPHEN TAB 650MG DOSE (2X325MG) PO ×2 (02:02→06:05)
[2017-08-22] MEDS: oxyCODONE 5MG TAB PO ×3 (02:03→17:42)
[2017-08-22 06:33] LABS: INR 2.93; PROTHROMBIN TIME 31.9 SECONDS (12.4-14.5)
[2017-08-22] MEDS: HumaLOG INSULIN (NovoLOG) PER UNIT SC ×4 (08:13→20:54)
[2017-08-22 08:45] LABS: BEDSIDE GLUCOSE 200 MG/DL (70-105)
[2017-08-22 08:45] LABS: BEDSIDE GLUCOSE 245 MG/DL (70-105)
[2017-08-22 08:45] LABS: BEDSIDE GLUCOSE 220 MG/DL (70-105)
[2017-08-22 08:45] LABS: BEDSIDE GLUCOSE 253 MG/DL (70-105)
[2017-08-22 08:45] LABS: BEDSIDE GLUCOSE 259 MG/DL (70-105)
[2017-08-22 08:46] LABS: BEDSIDE GLUCOSE 261 MG/DL (70-105)
[2017-08-22] MEDS: **NOTE PATIENT COMMENT** MISC XX (09:00)
[2017-08-22] MEDS: oxyCODONE 20 MG CR TAB PO ×2 (09:57→21:11)
[2017-08-22] MEDS: MULTIVITAMINS/MINERALS THERAP 1 TAB PO (11:48)
[2017-08-22] MEDS: AUGMENTIN 875 MG TAB PO ×2 (11:48→21:09)
[2017-08-22] MEDS: FAMOTIDINE 20 MG TAB PO ×2 (11:48→21:09)
[2017-08-22] MEDS: MAGNESIUM OXIDE 400 MG TAB (MAG-OX) PO ×3 (11:48→21:10)
[2017-08-22] MEDS: **hydrALAZINE** 50 MG TAB PO ×3 (11:49→21:11)
[2017-08-22] MEDS: OMEPRAZOLE 20 MG CAP PO (11:50)
[2017-08-22] MEDS: FUROSEMIDE 20 MG TAB PO (11:50)
[2017-08-22] MEDS: amLODIPine 5 MG TAB PO ×2 (11:51→21:10)
[2017-08-22] MEDS: VITAMIN D 1,000 INTERNATIONAL UNITS TABLET PO ×2 (11:51→21:09)
[2017-08-22] MEDS: CETIRIZINE (ZyrTEC) 10 MG TAB PO (11:51)
[2017-08-22] MEDS: CARVedilol 12.5 MG TAB PO ×2 (11:52→21:11)
[2017-08-22] MEDS: LEVEMIR (INSULIN DETEMIR) 1 UNITS/0.01ML SC ×2 (11:53→21:12)
[2017-08-22] MEDS: buPROPion **XL** TABLET 150MG (WELLBUTRIN XL) PO (12:00)
[2017-08-22] MEDS: DICLOFENAC EPOLAMINE 1.3 % PATCH TOP ×2 (12:07→21:12)
[2017-08-22 12:49] LABS: BEDSIDE GLUCOSE 178 MG/DL (70-105)
[2017-08-22] MEDS: WARFARIN SOD 5 MG TAB PO (17:42)
[2017-08-22] MEDS: AMITRIPTYLINE 50 MG TAB PO (21:09)
[2017-08-22] MEDS: ATORVASTATIN 10 MG TAB PO (21:10)
[2017-08-22] MEDS: LIDOCAINE 5% (LIDODERM) PATCH TD (21:12)
[2017-08-23] MEDS: oxyCODONE 5MG TAB PO ×4 (00:54→17:17)
[2017-08-23] MEDS: ACETAMINOPHEN TAB 650MG DOSE (2X325MG) PO ×2 (00:54→05:04)
[2017-08-23] MEDS: AQUAPHOR **100GM** OINT TOP (09:00)
[2017-08-23] MEDS: **NOTE PATIENT COMMENT** MISC XX (09:00)
[2017-08-23] MEDS: MAGNESIUM OXIDE 400 MG TAB (MAG-OX) PO ×3 (09:23→21:33)
[2017-08-23] MEDS: MULTIVITAMINS/MINERALS THERAP 1 TAB PO (09:23)
[2017-08-23] MEDS: CARVedilol 12.5 MG TAB PO ×2 (09:24→21:33)
[2017-08-23] MEDS: OMEPRAZOLE 20 MG CAP PO (09:24)
[2017-08-23] MEDS: buPROPion **XL** TABLET 150MG (WELLBUTRIN XL) PO (09:24)
[2017-08-23] MEDS: FAMOTIDINE 20 MG TAB PO ×2 (09:24→21:30)
[2017-08-23] MEDS: AUGMENTIN 875 MG TAB PO ×2 (09:24→21:32)
[2017-08-23] MEDS: VITAMIN D 1,000 INTERNATIONAL UNITS TABLET PO ×2 (09:24→21:31)
[2017-08-23] MEDS: amLODIPine 5 MG TAB PO ×2 (09:25→21:32)
[2017-08-23] MEDS: **hydrALAZINE** 50 MG TAB PO ×3 (09:25→21:32)
[2017-08-23] MEDS: FUROSEMIDE 20 MG TAB PO (09:25)
[2017-08-23] MEDS: oxyCODONE 20 MG CR TAB PO ×2 (09:26→21:31)
[2017-08-23] MEDS: CETIRIZINE (ZyrTEC) 10 MG TAB PO (09:26)
[2017-08-23] MEDS: DICLOFENAC EPOLAMINE 1.3 % PATCH TOP ×2 (09:26→21:30)
[2017-08-23] MEDS: LEVEMIR (INSULIN DETEMIR) 1 UNITS/0.01ML SC ×2 (09:27→21:34)
[2017-08-23] MEDS: HumaLOG INSULIN (NovoLOG) PER UNIT SC ×4 (09:27→21:00)
[2017-08-23 11:50] LABS: BEDSIDE GLUCOSE 136 MG/DL (70-105)
[2017-08-23 11:50] LABS: BEDSIDE GLUCOSE 241 MG/DL (70-105)
[2017-08-23 11:50] LABS: BEDSIDE GLUCOSE 160 MG/DL (70-105)
[2017-08-23 11:50] LABS: BEDSIDE GLUCOSE 131 MG/DL (70-105)
[2017-08-23] MEDS: WARFARIN SOD 5 MG TAB PO (17:13)
[2017-08-23 17:25] LABS: BEDSIDE GLUCOSE 194 MG/DL (70-105)
[2017-08-23] MEDS: LIDOCAINE 5% (LIDODERM) PATCH TD (21:30)
[2017-08-23] MEDS: ATORVASTATIN 10 MG TAB PO (21:32)
[2017-08-23] MEDS: AMITRIPTYLINE 50 MG TAB PO (21:33)
[2017-08-24] MEDS: ACETAMINOPHEN TAB 650MG DOSE (2X325MG) PO ×4 (01:46→18:36)
[2017-08-24] MEDS: oxyCODONE 5MG TAB PO ×4 (01:47→18:36)
[2017-08-24 06:03] LABS: HEMATOCRIT 40.6 % (42.0-52.0); HEMOGLOBIN 12.6 g/dl (13.5-17.5); MEAN CORPUSCULAR HEMOGLOBIN 26.2 pg (27.0-33.0); MEAN CORPUSCULAR VOLUME 84.4 fl (80.0-96.0); PLATELET COUNT, AUTOMATED 382 10^3/uL (150-450); RED BLOOD COUNT 4.81 10^6/uL (4.30-6.10); RED CELL DISTRIBUTION WIDTH 14.8 % (11.5-14.5); WHITE BLOOD COUNT 6.9 10^3/uL (4.0-10.0)
[2017-08-24 06:27] LABS: ANION GAP 5 MEQ/L (8-16); BLOOD UREA NITROGEN 17 MG/DL (7-18); CALCIUM LEVEL 9.1 MG/DL (8.5-10.1); CARBON DIOXIDE LEVEL 29 MEQ/L (21-32); CHLORIDE LEVEL 109 MEQ/L (98-107); CREATININE FOR GFR 1.38 MG/DL (0.70-1.30); GLOMERULAR FILTRATION RATE 56.7 (>56); GLUCOSE, FASTING 264 MG/DL (70-100); MAGNESIUM LEVEL 1.7 MG/DL (1.8-2.4); POTASSIUM SERUM 3.9 MEQ/L (3.5-5.1); SODIUM LEVEL 143 MEQ/L (136-145)
[2017-08-24] MEDS: HumaLOG INSULIN (NovoLOG) PER UNIT SC ×4 (08:34→20:54)
[2017-08-24] MEDS: LEVEMIR (INSULIN DETEMIR) 1 UNITS/0.01ML SC ×2 (08:35→21:03)
[2017-08-24] MEDS: DICLOFENAC EPOLAMINE 1.3 % PATCH TOP ×2 (08:35→21:03)
[2017-08-24] MEDS: AUGMENTIN 875 MG TAB PO ×2 (08:36→21:05)
[2017-08-24] MEDS: VITAMIN D 1,000 INTERNATIONAL UNITS TABLET PO ×2 (08:36→21:04)
[2017-08-24] MEDS: CARVedilol 12.5 MG TAB PO ×2 (08:37→21:05)
[2017-08-24] MEDS: FAMOTIDINE 20 MG TAB PO ×2 (08:37→21:04)
[2017-08-24] MEDS: oxyCODONE 20 MG CR TAB PO ×2 (08:37→21:15)
[2017-08-24] MEDS: FUROSEMIDE 20 MG TAB PO (08:38)
[2017-08-24] MEDS: MAGNESIUM OXIDE 400 MG TAB (MAG-OX) PO ×3 (08:38→21:04)
[2017-08-24] MEDS: OMEPRAZOLE 20 MG CAP PO (08:39)
[2017-08-24] MEDS: **hydrALAZINE** 50 MG TAB PO ×3 (08:39→21:05)
[2017-08-24] MEDS: MULTIVITAMINS/MINERALS THERAP 1 TAB PO (08:39)
[2017-08-24] MEDS: amLODIPine 5 MG TAB PO ×2 (08:39→21:05)
[2017-08-24] MEDS: CETIRIZINE (ZyrTEC) 10 MG TAB PO (08:40)
[2017-08-24] MEDS: buPROPion **XL** TABLET 150MG (WELLBUTRIN XL) PO (08:40)
[2017-08-24] MEDS: **NOTE PATIENT COMMENT** MISC XX (08:40)
[2017-08-24 13:11] LABS: BEDSIDE GLUCOSE 136 MG/DL (70-105)
[2017-08-24 13:11] LABS: BEDSIDE GLUCOSE 238 MG/DL (70-105)
[2017-08-24 13:46] LABS: INR 2.84; PROTHROMBIN TIME 31.1 SECONDS (12.4-14.5)
[2017-08-24] MEDS: WARFARIN SOD 5 MG TAB PO (17:34)
[2017-08-24 19:52] LABS: BEDSIDE GLUCOSE 231 MG/DL (70-105)
[2017-08-24] MEDS: ATORVASTATIN 10 MG TAB PO (21:03)
[2017-08-24] MEDS: LIDOCAINE 5% (LIDODERM) PATCH TD (21:03)
[2017-08-24] MEDS: AMITRIPTYLINE 50 MG TAB PO (21:05)
[2017-08-25] MEDS: ACETAMINOPHEN TAB 650MG DOSE (2X325MG) PO ×4 (02:01→17:38)
[2017-08-25] MEDS: oxyCODONE 5MG TAB PO ×4 (02:01→17:39)
[2017-08-25 07:08] LABS: BEDSIDE GLUCOSE 229 MG/DL (70-105)
[2017-08-25] MEDS: HumaLOG INSULIN (NovoLOG) PER UNIT SC ×4 (08:33→20:48)
[2017-08-25] MEDS: DICLOFENAC EPOLAMINE 1.3 % PATCH TOP ×2 (08:34→20:47)
[2017-08-25] MEDS: LEVEMIR (INSULIN DETEMIR) 1 UNITS/0.01ML SC ×2 (08:35→20:48)
[2017-08-25] MEDS: VITAMIN D 1,000 INTERNATIONAL UNITS TABLET PO ×2 (08:36→20:47)
[2017-08-25] MEDS: AUGMENTIN 875 MG TAB PO ×2 (08:36→20:46)
[2017-08-25] MEDS: OMEPRAZOLE 20 MG CAP PO (08:36)
[2017-08-25] MEDS: **hydrALAZINE** 50 MG TAB PO ×3 (08:37→20:45)
[2017-08-25] MEDS: buPROPion **XL** TABLET 150MG (WELLBUTRIN XL) PO (08:37)
[2017-08-25] MEDS: CETIRIZINE (ZyrTEC) 10 MG TAB PO (08:39)
[2017-08-25] MEDS: MULTIVITAMINS/MINERALS THERAP 1 TAB PO (08:39)
[2017-08-25] MEDS: FAMOTIDINE 20 MG TAB PO ×2 (08:40→20:44)
[2017-08-25] MEDS: amLODIPine 5 MG TAB PO ×2 (08:41→20:44)
[2017-08-25] MEDS: MAGNESIUM OXIDE 400 MG TAB (MAG-OX) PO ×3 (08:41→20:45)
[2017-08-25] MEDS: CARVedilol 12.5 MG TAB PO ×2 (08:42→20:45)
[2017-08-25] MEDS: FUROSEMIDE 20 MG TAB PO (08:42)
[2017-08-25 08:47] LABS: BEDSIDE GLUCOSE 296 MG/DL (70-105)
[2017-08-25] MEDS: oxyCODONE 20 MG CR TAB PO ×2 (08:47→20:47)
[2017-08-25] MEDS: **NOTE PATIENT COMMENT** MISC XX (08:47)
[2017-08-25 11:58] LABS: BEDSIDE GLUCOSE 245 MG/DL (70-105)
[2017-08-25 15:46] LABS: BEDSIDE GLUCOSE 169 MG/DL (70-105)
[2017-08-25] MEDS: WARFARIN SOD 5 MG TAB PO (16:46)
[2017-08-25] MEDS: AQUAPHOR **100GM** OINT TOP (16:48)
[2017-08-25 20:42] LABS: BEDSIDE GLUCOSE 192 MG/DL (70-105)
[2017-08-25] MEDS: AMITRIPTYLINE 50 MG TAB PO (20:45)
[2017-08-25] MEDS: ATORVASTATIN 10 MG TAB PO (20:45)
[2017-08-25] MEDS: LIDOCAINE 5% (LIDODERM) PATCH TD (20:47)
[2017-08-25 21:09] LABS: BEDSIDE GLUCOSE 180 MG/DL (70-105)
[2017-08-26] MEDS: oxyCODONE 5MG TAB PO ×4 (01:51→17:03)
[2017-08-26] MEDS: ACETAMINOPHEN TAB 650MG DOSE (2X325MG) PO ×2 (05:58→13:55)
[2017-08-26] MEDS: DICLOFENAC EPOLAMINE 1.3 % PATCH TOP ×2 (08:32→20:29)
[2017-08-26] MEDS: HumaLOG INSULIN (NovoLOG) PER UNIT SC ×4 (08:33→21:00)
[2017-08-26] MEDS: CETIRIZINE (ZyrTEC) 10 MG TAB PO (08:34)
[2017-08-26] MEDS: LEVEMIR (INSULIN DETEMIR) 1 UNITS/0.01ML SC ×2 (08:34→21:00)
[2017-08-26] MEDS: AUGMENTIN 875 MG TAB PO ×2 (08:34→20:26)
[2017-08-26] MEDS: MAGNESIUM OXIDE 400 MG TAB (MAG-OX) PO ×3 (08:34→20:27)
[2017-08-26] MEDS: MULTIVITAMINS/MINERALS THERAP 1 TAB PO (08:35)
[2017-08-26] MEDS: FAMOTIDINE 20 MG TAB PO ×2 (08:35→20:26)
[2017-08-26] MEDS: OMEPRAZOLE 20 MG CAP PO (08:35)
[2017-08-26] MEDS: VITAMIN D 1,000 INTERNATIONAL UNITS TABLET PO ×2 (08:35→20:26)
[2017-08-26] MEDS: buPROPion **XL** TABLET 150MG (WELLBUTRIN XL) PO (08:35)
[2017-08-26] MEDS: FUROSEMIDE 20 MG TAB PO (08:35)
[2017-08-26] MEDS: CARVedilol 12.5 MG TAB PO ×2 (08:36→20:29)
[2017-08-26] MEDS: oxyCODONE 20 MG CR TAB PO ×2 (08:36→20:38)
[2017-08-26] MEDS: amLODIPine 5 MG TAB PO ×2 (08:37→20:28)
[2017-08-26] MEDS: **hydrALAZINE** 50 MG TAB PO ×3 (08:37→20:28)
[2017-08-26] MEDS: **NOTE PATIENT COMMENT** MISC XX (08:38)
[2017-08-26] MEDS: WARFARIN SOD 5 MG TAB PO (17:02)
[2017-08-26] MEDS: AMITRIPTYLINE 50 MG TAB PO (20:27)
[2017-08-26] MEDS: ATORVASTATIN 10 MG TAB PO (20:28)
[2017-08-26] MEDS: LIDOCAINE 5% (LIDODERM) PATCH TD (20:29)
[2017-08-26 21:29] LABS: BEDSIDE GLUCOSE 264 MG/DL (70-105)
[2017-08-26] MEDS ORDERED: LEVEMIR (INSULIN DETEMIR) 1 UNITS/0.01ML As Ordered (22:18)
[2017-08-26] MEDS ORDERED: HumaLOG INSULIN (NovoLOG) PER UNIT As Ordered (22:19)
[2017-08-27] MEDS: oxyCODONE 5MG TAB PO ×3 (02:21→15:43)
[2017-08-27] MEDS: ACETAMINOPHEN TAB 650MG DOSE (2X325MG) PO ×2 (02:23→17:46)
[2017-08-27 05:59] LABS: HEMATOCRIT 41.3 % (42.0-52.0); HEMOGLOBIN 12.7 g/dl (13.5-17.5); MEAN CORPUSCULAR HEMOGLOBIN 25.8 pg (27.0-33.0); MEAN CORPUSCULAR HGB CONC 30.8 g/dl (32.0-36.5); MEAN CORPUSCULAR VOLUME 83.8 fl (80.0-96.0); PLATELET COUNT, AUTOMATED 386 10^3/uL (150-450); RED BLOOD COUNT 4.93 10^6/uL (4.30-6.10); RED CELL DISTRIBUTION WIDTH 14.6 % (11.5-14.5); WHITE BLOOD COUNT 6.1 10^3/uL (4.0-10.0)
[2017-08-27 06:13] LABS: INR 2.67; PROTHROMBIN TIME 29.5 SECONDS (12.4-14.5)
[2017-08-27 06:16] LABS: ANION GAP 5 MEQ/L (8-16); BLOOD UREA NITROGEN 16 MG/DL (7-18); CALCIUM LEVEL 9.2 MG/DL (8.5-10.1); CARBON DIOXIDE LEVEL 28 MEQ/L (21-32); CHLORIDE LEVEL 109 MEQ/L (98-107); CREATININE FOR GFR 1.34 MG/DL (0.70-1.30); GLOMERULAR FILTRATION RATE 58.7 (>56); GLUCOSE, FASTING 294 MG/DL (70-100); MAGNESIUM LEVEL 1.6 MG/DL (1.8-2.4); POTASSIUM SERUM 4.2 MEQ/L (3.5-5.1); SODIUM LEVEL 142 MEQ/L (136-145)
[2017-08-27] MEDS: LEVEMIR (INSULIN DETEMIR) 1 UNITS/0.01ML SC ×2 (09:04→20:38)
[2017-08-27] MEDS: HumaLOG INSULIN (NovoLOG) PER UNIT SC ×4 (09:04→20:39)
[2017-08-27] MEDS: VITAMIN D 1,000 INTERNATIONAL UNITS TABLET PO ×2 (09:05→20:36)
[2017-08-27] MEDS: MULTIVITAMINS/MINERALS THERAP 1 TAB PO (09:05)
[2017-08-27] MEDS: MAGNESIUM OXIDE 400 MG TAB (MAG-OX) PO ×3 (09:05→20:35)
[2017-08-27] MEDS: buPROPion **XL** TABLET 150MG (WELLBUTRIN XL) PO (09:05)
[2017-08-27] MEDS: OMEPRAZOLE 20 MG CAP PO (09:05)
[2017-08-27] MEDS: AUGMENTIN 875 MG TAB PO ×2 (09:05→20:34)
[2017-08-27] MEDS: CETIRIZINE (ZyrTEC) 10 MG TAB PO (09:06)
[2017-08-27] MEDS: CARVedilol 12.5 MG TAB PO ×2 (09:06→20:36)
[2017-08-27] MEDS: oxyCODONE 20 MG CR TAB PO ×2 (09:07→20:38)
[2017-08-27] MEDS: FAMOTIDINE 20 MG TAB PO ×2 (09:07→20:35)
[2017-08-27] MEDS: FUROSEMIDE 20 MG TAB PO (09:07)
[2017-08-27] MEDS: amLODIPine 5 MG TAB PO ×2 (09:07→20:37)
[2017-08-27] MEDS: **hydrALAZINE** 50 MG TAB PO ×3 (09:07→20:36)
[2017-08-27] MEDS: **NOTE PATIENT COMMENT** MISC XX (09:08)
[2017-08-27] MEDS: AQUAPHOR **100GM** OINT TOP (09:09)
[2017-08-27] MEDS: READI-CAT 2 PO ×2 (11:35→13:11)
[2017-08-27 13:16] LABS: BEDSIDE GLUCOSE 219 MG/DL (70-105)
[2017-08-27 13:16] LABS: BEDSIDE GLUCOSE 290 MG/DL (70-105)
[2017-08-27 13:17] LABS: BEDSIDE GLUCOSE 205 MG/DL (70-105)
[2017-08-27 13:17] LABS: BEDSIDE GLUCOSE 188 MG/DL (70-105)
[2017-08-27 17:22] LABS: BEDSIDE GLUCOSE 187 MG/DL (70-105)
[2017-08-27] MEDS: WARFARIN SOD 5 MG TAB PO (17:45)
[2017-08-27 20:23] LABS: BEDSIDE GLUCOSE 252 MG/DL (70-105)
[2017-08-27] MEDS: ATORVASTATIN 10 MG TAB PO (20:36)
[2017-08-27] MEDS: AMITRIPTYLINE 50 MG TAB PO (20:36)
[2017-08-27] MEDS: LIDOCAINE 5% (LIDODERM) PATCH TD (20:40)
[2017-08-28] MEDS: oxyCODONE 5MG TAB PO ×4 (01:49→21:49)
[2017-08-28 06:03] LABS: BEDSIDE GLUCOSE 224 MG/DL (70-105)
[2017-08-28] MEDS: HumaLOG INSULIN (NovoLOG) PER UNIT SC ×4 (09:02→21:00)
[2017-08-28] MEDS: CETIRIZINE (ZyrTEC) 10 MG TAB PO (09:02)
[2017-08-28] MEDS: VITAMIN D 1,000 INTERNATIONAL UNITS TABLET PO ×2 (09:02→21:51)
[2017-08-28] MEDS: LEVEMIR (INSULIN DETEMIR) 1 UNITS/0.01ML SC ×2 (09:02→21:00)
[2017-08-28] MEDS: MAGNESIUM OXIDE 400 MG TAB (MAG-OX) PO ×3 (09:03→21:50)
[2017-08-28] MEDS: OMEPRAZOLE 20 MG CAP PO (09:03)
[2017-08-28] MEDS: buPROPion **XL** TABLET 150MG (WELLBUTRIN XL) PO (09:03)
[2017-08-28] MEDS: **hydrALAZINE** 50 MG TAB PO ×3 (09:04→21:52)
[2017-08-28] MEDS: AUGMENTIN 875 MG TAB PO ×2 (09:04→21:51)
[2017-08-28] MEDS: MULTIVITAMINS/MINERALS THERAP 1 TAB PO (09:04)
[2017-08-28] MEDS: amLODIPine 5 MG TAB PO ×2 (09:04→21:52)
[2017-08-28] MEDS: FAMOTIDINE 20 MG TAB PO ×2 (09:05→21:51)
[2017-08-28] MEDS: CARVedilol 12.5 MG TAB PO ×2 (09:05→21:48)
[2017-08-28] MEDS: FUROSEMIDE 20 MG TAB PO (09:05)
[2017-08-28] MEDS: **NOTE PATIENT COMMENT** MISC XX (09:06)
[2017-08-28] MEDS: oxyCODONE 20 MG CR TAB PO ×2 (09:06→21:49)
[2017-08-28] MEDS: DICLOFENAC EPOLAMINE 1.3 % PATCH TOP ×2 (11:33→21:53)
[2017-08-28 12:08] LABS: BEDSIDE GLUCOSE 171 MG/DL (70-105)
[2017-08-28 16:48] LABS: BEDSIDE GLUCOSE 243 MG/DL (70-105)
[2017-08-28] MEDS: WARFARIN SOD 5 MG TAB PO (17:08)
[2017-08-28 21:06] LABS: BEDSIDE GLUCOSE 200 MG/DL (70-105)
[2017-08-28] MEDS: AMITRIPTYLINE 50 MG TAB PO (21:51)
[2017-08-28] MEDS: ATORVASTATIN 10 MG TAB PO (21:51)
[2017-08-28] MEDS: LIDOCAINE 5% (LIDODERM) PATCH TD (21:53)
[2017-08-29] MEDS: oxyCODONE 5MG TAB PO ×3 (02:31→17:02)
[2017-08-29] MEDS: MULTIVITAMINS/MINERALS THERAP 1 TAB PO (08:10)
[2017-08-29] MEDS: HumaLOG INSULIN (NovoLOG) PER UNIT SC ×4 (08:10→20:50)
[2017-08-29] MEDS: LEVEMIR (INSULIN DETEMIR) 1 UNITS/0.01ML SC ×2 (08:10→20:50)
[2017-08-29] MEDS: AUGMENTIN 875 MG TAB PO ×2 (08:11→20:49)
[2017-08-29] MEDS: oxyCODONE 20 MG CR TAB PO ×2 (08:11→20:52)
[2017-08-29] MEDS: CARVedilol 12.5 MG TAB PO ×2 (08:11→20:52)
[2017-08-29] MEDS: MAGNESIUM OXIDE 400 MG TAB (MAG-OX) PO ×3 (08:12→20:48)
[2017-08-29] MEDS: VITAMIN D 1,000 INTERNATIONAL UNITS TABLET PO ×2 (08:12→20:48)
[2017-08-29] MEDS: OMEPRAZOLE 20 MG CAP PO (08:12)
[2017-08-29] MEDS: CETIRIZINE (ZyrTEC) 10 MG TAB PO (08:13)
[2017-08-29] MEDS: buPROPion **XL** TABLET 150MG (WELLBUTRIN XL) PO (08:13)
[2017-08-29] MEDS: FUROSEMIDE 20 MG TAB PO (08:13)
[2017-08-29] MEDS: **hydrALAZINE** 50 MG TAB PO ×3 (08:13→20:49)
[2017-08-29] MEDS: FAMOTIDINE 20 MG TAB PO ×2 (08:13→20:47)
[2017-08-29] MEDS: DICLOFENAC EPOLAMINE 1.3 % PATCH TOP ×2 (08:14→20:51)
[2017-08-29] MEDS: amLODIPine 5 MG TAB PO ×2 (08:14→20:49)
[2017-08-29] MEDS: AQUAPHOR **100GM** OINT TOP (08:14)
[2017-08-29] MEDS: **NOTE PATIENT COMMENT** MISC XX (08:15)
[2017-08-29 08:40] LABS: BEDSIDE GLUCOSE 196 MG/DL (70-105)
[2017-08-29] MEDS: ACETAMINOPHEN TAB 650MG DOSE (2X325MG) PO ×2 (11:30→17:02)
[2017-08-29 11:42] LABS: BEDSIDE GLUCOSE 214 MG/DL (70-105)
[2017-08-29] MEDS: WARFARIN SOD 5 MG TAB PO (17:01)
[2017-08-29] MEDS: AMITRIPTYLINE 50 MG TAB PO (20:48)
[2017-08-29] MEDS: ATORVASTATIN 10 MG TAB PO (20:49)
[2017-08-29] MEDS: LIDOCAINE 5% (LIDODERM) PATCH TD (20:51)
[2017-08-30] MEDS: oxyCODONE 5MG TAB PO ×3 (01:36→16:10)
[2017-08-30] MEDS: HumaLOG INSULIN (NovoLOG) PER UNIT SC ×4 (08:02→20:47)
[2017-08-30] MEDS: CARVedilol 12.5 MG TAB PO ×2 (08:03→20:46)
[2017-08-30] MEDS: LEVEMIR (INSULIN DETEMIR) 1 UNITS/0.01ML SC ×2 (08:03→20:47)
[2017-08-30] MEDS: DICLOFENAC EPOLAMINE 1.3 % PATCH TOP ×2 (08:03→20:47)
[2017-08-30] MEDS: MULTIVITAMINS/MINERALS THERAP 1 TAB PO (08:03)
[2017-08-30] MEDS: amLODIPine 5 MG TAB PO ×2 (08:04→20:45)
[2017-08-30] MEDS: FAMOTIDINE 20 MG TAB PO ×2 (08:04→20:44)
[2017-08-30] MEDS: OMEPRAZOLE 20 MG CAP PO (08:04)
[2017-08-30] MEDS: buPROPion **XL** TABLET 150MG (WELLBUTRIN XL) PO (08:04)
[2017-08-30] MEDS: AUGMENTIN 875 MG TAB PO (08:04)
[2017-08-30] MEDS: MAGNESIUM OXIDE 400 MG TAB (MAG-OX) PO ×3 (08:04→20:45)
[2017-08-30] MEDS: FUROSEMIDE 20 MG TAB PO (08:05)
[2017-08-30] MEDS: VITAMIN D 1,000 INTERNATIONAL UNITS TABLET PO ×2 (08:05→20:45)
[2017-08-30] MEDS: **hydrALAZINE** 50 MG TAB PO ×3 (08:05→20:46)
[2017-08-30] MEDS: CETIRIZINE (ZyrTEC) 10 MG TAB PO (08:06)
[2017-08-30] MEDS: oxyCODONE 20 MG CR TAB PO ×2 (08:06→20:48)
[2017-08-30] MEDS: **NOTE PATIENT COMMENT** MISC XX (08:06)
[2017-08-30 08:41] LABS: BEDSIDE GLUCOSE 206 MG/DL (70-105)
[2017-08-30] MEDS: ACETAMINOPHEN TAB 650MG DOSE (2X325MG) PO ×2 (11:41→16:09)
[2017-08-30] MEDS: WARFARIN SOD 5 MG TAB PO (16:09)
[2017-08-30] MEDS: ATORVASTATIN 10 MG TAB PO (20:44)
[2017-08-30] MEDS: AMITRIPTYLINE 50 MG TAB PO (20:44)
[2017-08-30] MEDS: LIDOCAINE 5% (LIDODERM) PATCH TD (20:47)
[2017-08-31] MEDS: oxyCODONE 5MG TAB PO ×3 (01:22→13:51)
[2017-08-31 05:56] LABS: HEMATOCRIT 40.2 % (42.0-52.0); HEMOGLOBIN 12.6 g/dl (13.5-17.5); MEAN CORPUSCULAR HGB CONC 31.3 g/dl (32.0-36.5); MEAN CORPUSCULAR VOLUME 83.1 fl (80.0-96.0); PLATELET COUNT, AUTOMATED 375 10^3/uL (150-450); RED BLOOD COUNT 4.84 10^6/uL (4.30-6.10); RED CELL DISTRIBUTION WIDTH 14.6 % (11.5-14.5)
[2017-08-31 06:07] LABS: PROTHROMBIN TIME 33.4 SECONDS (12.4-14.5)
[2017-08-31 06:17] LABS: ANION GAP 4 MEQ/L (8-16); BLOOD UREA NITROGEN 19 MG/DL (7-18); CALCIUM LEVEL 9.3 MG/DL (8.5-10.1); CARBON DIOXIDE LEVEL 30 MEQ/L (21-32); CHLORIDE LEVEL 107 MEQ/L (98-107); CREATININE FOR GFR 1.46 MG/DL (0.70-1.30); GLOMERULAR FILTRATION RATE 53.2 (>56); GLUCOSE, FASTING 386 MG/DL (70-100); MAGNESIUM LEVEL 1.9 MG/DL (1.8-2.4); POTASSIUM SERUM 4.2 MEQ/L (3.5-5.1); SODIUM LEVEL 141 MEQ/L (136-145)
[2017-08-31] MEDS: DICLOFENAC EPOLAMINE 1.3 % PATCH TOP ×2 (09:48→21:31)
[2017-08-31] MEDS: HumaLOG INSULIN (NovoLOG) PER UNIT SC ×4 (09:49→21:00)
[2017-08-31] MEDS: oxyCODONE 20 MG CR TAB PO ×2 (09:50→21:28)
[2017-08-31] MEDS: amLODIPine 5 MG TAB PO ×2 (09:51→21:29)
[2017-08-31] MEDS: FAMOTIDINE 20 MG TAB PO ×2 (09:51→21:28)
[2017-08-31] MEDS: VITAMIN D 1,000 INTERNATIONAL UNITS TABLET PO ×2 (09:51→21:28)
[2017-08-31] MEDS: OMEPRAZOLE 20 MG CAP PO (09:51)
[2017-08-31] MEDS: buPROPion **XL** TABLET 150MG (WELLBUTRIN XL) PO (09:51)
[2017-08-31] MEDS: MULTIVITAMINS/MINERALS THERAP 1 TAB PO (09:51)
[2017-08-31] MEDS: FUROSEMIDE 20 MG TAB PO (09:51)
[2017-08-31] MEDS: CARVedilol 12.5 MG TAB PO ×2 (09:52→21:29)
[2017-08-31] MEDS: **hydrALAZINE** 50 MG TAB PO ×3 (09:52→21:30)
[2017-08-31] MEDS: CETIRIZINE (ZyrTEC) 10 MG TAB PO (09:52)
[2017-08-31] MEDS: MAGNESIUM OXIDE 400 MG TAB (MAG-OX) PO ×3 (09:52→21:29)
[2017-08-31] MEDS: **NOTE PATIENT COMMENT** MISC XX (09:53)
[2017-08-31] MEDS: LEVEMIR (INSULIN DETEMIR) 1 UNITS/0.01ML SC ×2 (09:53→21:30)
[2017-08-31] MEDS: AQUAPHOR **100GM** OINT TOP (09:54)
[2017-08-31 11:51] LABS: BEDSIDE GLUCOSE 376 MG/DL (70-105)
[2017-08-31 11:51] LABS: BEDSIDE GLUCOSE 296 MG/DL (70-105)
[2017-08-31 11:52] LABS: BEDSIDE GLUCOSE 164 MG/DL (70-105)
[2017-08-31 11:52] LABS: BEDSIDE GLUCOSE 219 MG/DL (70-105)
[2017-08-31 11:52] LABS: BEDSIDE GLUCOSE 255 MG/DL (70-105)
[2017-08-31 11:52] LABS: BEDSIDE GLUCOSE 136 MG/DL (70-105)
[2017-08-31] MEDS: WARFARIN SOD 5 MG TAB PO (17:42)
[2017-08-31] MEDS: ATORVASTATIN 10 MG TAB PO (21:28)
[2017-08-31] MEDS: AMITRIPTYLINE 50 MG TAB PO (21:28)
[2017-08-31] MEDS: LIDOCAINE 5% (LIDODERM) PATCH TD (21:30)
[2017-09-01 00:04] LABS: BEDSIDE GLUCOSE 284 MG/DL (70-105)
[2017-09-01 00:05] LABS: BEDSIDE GLUCOSE 194 MG/DL (70-105)
[2017-09-01 00:05] LABS: BEDSIDE GLUCOSE 189 MG/DL (70-105)
[2017-09-01] MEDS: oxyCODONE 5MG TAB PO ×3 (02:55→17:17)
[2017-09-01 09:22] LABS: BEDSIDE GLUCOSE 210 MG/DL (70-105)
[2017-09-01] MEDS: HumaLOG INSULIN (NovoLOG) PER UNIT SC ×4 (09:36→20:25)
[2017-09-01] MEDS: LEVEMIR (INSULIN DETEMIR) 1 UNITS/0.01ML SC ×2 (09:37→20:35)
[2017-09-01] MEDS: VITAMIN D 1,000 INTERNATIONAL UNITS TABLET PO ×2 (09:37→20:33)
[2017-09-01] MEDS: buPROPion **XL** TABLET 150MG (WELLBUTRIN XL) PO (09:38)
[2017-09-01] MEDS: OMEPRAZOLE 20 MG CAP PO (09:38)
[2017-09-01] MEDS: MAGNESIUM OXIDE 400 MG TAB (MAG-OX) PO ×3 (09:38→20:33)
[2017-09-01] MEDS: FAMOTIDINE 20 MG TAB PO ×2 (09:39→20:34)
[2017-09-01] MEDS: FUROSEMIDE 20 MG TAB PO (09:39)
[2017-09-01] MEDS: CETIRIZINE (ZyrTEC) 10 MG TAB PO (09:39)
[2017-09-01] MEDS: MULTIVITAMINS/MINERALS THERAP 1 TAB PO (09:39)
[2017-09-01] MEDS: CARVedilol 12.5 MG TAB PO ×2 (09:41→20:34)
[2017-09-01] MEDS: **hydrALAZINE** 50 MG TAB PO ×3 (09:42→20:33)
[2017-09-01] MEDS: amLODIPine 5 MG TAB PO ×2 (09:42→20:34)
[2017-09-01] MEDS: oxyCODONE 20 MG CR TAB PO ×2 (09:44→20:35)
[2017-09-01] MEDS: **NOTE PATIENT COMMENT** MISC XX (09:45)
[2017-09-01] MEDS: DICLOFENAC EPOLAMINE 1.3 % PATCH TOP ×2 (09:45→20:35)
[2017-09-01] MEDS: ACETAMINOPHEN TAB 650MG DOSE (2X325MG) PO (12:13)
[2017-09-01] MEDS: WARFARIN SOD 5 MG TAB PO (16:02)
[2017-09-01] MEDS: AMITRIPTYLINE 50 MG TAB PO (20:34)
[2017-09-01] MEDS: ATORVASTATIN 10 MG TAB PO (20:34)
[2017-09-01] MEDS: LIDOCAINE 5% (LIDODERM) PATCH TD (20:36)
[2017-09-02] MEDS: oxyCODONE 5MG TAB PO ×2 (01:57→14:38)
[2017-09-02 08:25] LABS: BEDSIDE GLUCOSE 158 MG/DL (70-105)
[2017-09-02] MEDS: HumaLOG INSULIN (NovoLOG) PER UNIT SC ×4 (09:11→21:00)
[2017-09-02] MEDS: LEVEMIR (INSULIN DETEMIR) 1 UNITS/0.01ML SC ×2 (09:11→21:56)
[2017-09-02] MEDS: DICLOFENAC EPOLAMINE 1.3 % PATCH TOP ×2 (09:12→21:58)
[2017-09-02] MEDS: buPROPion **XL** TABLET 150MG (WELLBUTRIN XL) PO (09:12)
[2017-09-02] MEDS: oxyCODONE 20 MG CR TAB PO ×2 (09:13→21:59)
[2017-09-02] MEDS: FAMOTIDINE 20 MG TAB PO ×2 (09:14→21:57)
[2017-09-02] MEDS: CARVedilol 12.5 MG TAB PO ×2 (09:14→21:57)
[2017-09-02] MEDS: VITAMIN D 1,000 INTERNATIONAL UNITS TABLET PO ×2 (09:14→21:57)
[2017-09-02] MEDS: MAGNESIUM OXIDE 400 MG TAB (MAG-OX) PO ×3 (09:15→21:57)
[2017-09-02] MEDS: CETIRIZINE (ZyrTEC) 10 MG TAB PO (09:15)
[2017-09-02] MEDS: amLODIPine 5 MG TAB PO ×2 (09:17→21:57)
[2017-09-02] MEDS: **hydrALAZINE** 50 MG TAB PO ×3 (09:17→21:58)
[2017-09-02] MEDS: OMEPRAZOLE 20 MG CAP PO (09:17)
[2017-09-02] MEDS: MULTIVITAMINS/MINERALS THERAP 1 TAB PO (09:17)
[2017-09-02] MEDS: FUROSEMIDE 20 MG TAB PO (09:18)
[2017-09-02] MEDS: **NOTE PATIENT COMMENT** MISC XX (09:18)
[2017-09-02] MEDS: AQUAPHOR **100GM** OINT TOP (09:19)
[2017-09-02 09:52] LABS: BEDSIDE GLUCOSE 180 MG/DL (70-105)
[2017-09-02] MEDS: ACETAMINOPHEN TAB 650MG DOSE (2X325MG) PO (13:01)
[2017-09-02] MEDS: WARFARIN SOD 5 MG TAB PO (16:58)
[2017-09-02 20:46] LABS: BEDSIDE GLUCOSE 156 MG/DL (70-105)
[2017-09-02 20:46] LABS: BEDSIDE GLUCOSE 174 MG/DL (70-105)
[2017-09-02] MEDS: AMITRIPTYLINE 50 MG TAB PO (21:57)
[2017-09-02] MEDS: ATORVASTATIN 10 MG TAB PO (21:57)
[2017-09-02] MEDS: LIDOCAINE 5% (LIDODERM) PATCH TD (21:58)
[2017-09-02 22:00] LABS: BEDSIDE GLUCOSE 114 MG/DL (70-105)
[2017-09-03] MEDS: oxyCODONE 5MG TAB PO ×4 (00:29→16:57)
[2017-09-03] MEDS: ACETAMINOPHEN TAB 650MG DOSE (2X325MG) PO ×2 (05:15→12:16)
[2017-09-03 06:12] LABS: HEMATOCRIT 42.2 % (42.0-52.0); HEMOGLOBIN 13.3 g/dl (13.5-17.5); MEAN CORPUSCULAR HEMOGLOBIN 25.7 pg (27.0-33.0); MEAN CORPUSCULAR HGB CONC 31.5 g/dl (32.0-36.5); MEAN CORPUSCULAR VOLUME 81.5 fl (80.0-96.0); PLATELET COUNT, AUTOMATED 392 10^3/uL (150-450); RED BLOOD COUNT 5.18 10^6/uL (4.30-6.10); RED CELL DISTRIBUTION WIDTH 14.8 % (11.5-14.5); WHITE BLOOD COUNT 7.5 10^3/uL (4.0-10.0)
[2017-09-03 06:28] LABS: INR 2.26; PROTHROMBIN TIME 25.8 SECONDS (12.4-14.5)
[2017-09-03 06:34] LABS: ANION GAP 4 MEQ/L (8-16); BLOOD UREA NITROGEN 25 MG/DL (7-18); CALCIUM LEVEL 9.5 MG/DL (8.5-10.1); CARBON DIOXIDE LEVEL 30 MEQ/L (21-32); CHLORIDE LEVEL 109 MEQ/L (98-107); CREATININE FOR GFR 1.42 MG/DL (0.70-1.30); GLOMERULAR FILTRATION RATE 54.9 (>56); GLUCOSE, FASTING 207 MG/DL (70-100); MAGNESIUM LEVEL 1.8 MG/DL (1.8-2.4); POTASSIUM SERUM 4.1 MEQ/L (3.5-5.1); SODIUM LEVEL 143 MEQ/L (136-145)
[2017-09-03] MEDS: **hydrALAZINE** 50 MG TAB PO ×3 (08:04→20:52)
[2017-09-03] MEDS: VITAMIN D 1,000 INTERNATIONAL UNITS TABLET PO ×2 (08:05→20:50)
[2017-09-03] MEDS: MAGNESIUM OXIDE 400 MG TAB (MAG-OX) PO ×3 (08:05→20:51)
[2017-09-03] MEDS: MULTIVITAMINS/MINERALS THERAP 1 TAB PO (08:05)
[2017-09-03] MEDS: CETIRIZINE (ZyrTEC) 10 MG TAB PO (08:05)
[2017-09-03] MEDS: CARVedilol 12.5 MG TAB PO ×2 (08:05→20:51)
[2017-09-03] MEDS: FAMOTIDINE 20 MG TAB PO ×2 (08:05→20:50)
[2017-09-03] MEDS: DICLOFENAC EPOLAMINE 1.3 % PATCH TOP ×2 (08:06→20:49)
[2017-09-03] MEDS: amLODIPine 5 MG TAB PO ×2 (08:06→20:51)
[2017-09-03] MEDS: OMEPRAZOLE 20 MG CAP PO (08:06)
[2017-09-03] MEDS: FUROSEMIDE 20 MG TAB PO (08:06)
[2017-09-03] MEDS: LEVEMIR (INSULIN DETEMIR) 1 UNITS/0.01ML SC ×2 (08:07→20:49)
[2017-09-03] MEDS: HumaLOG INSULIN (NovoLOG) PER UNIT SC ×4 (08:07→20:48)
[2017-09-03] MEDS: oxyCODONE 20 MG CR TAB PO ×2 (08:14→20:50)
[2017-09-03] MEDS: **NOTE PATIENT COMMENT** MISC XX (08:15)
[2017-09-03] MEDS: buPROPion **XL** TABLET 150MG (WELLBUTRIN XL) PO (08:15)
[2017-09-03 11:25] LABS: BEDSIDE GLUCOSE 209 MG/DL (70-105)
[2017-09-03 11:25] LABS: BEDSIDE GLUCOSE 185 MG/DL (70-105)
[2017-09-03 11:46] LABS: BEDSIDE GLUCOSE 119 MG/DL (70-105)
[2017-09-03 16:55] LABS: BEDSIDE GLUCOSE 355 MG/DL (70-105)
[2017-09-03] MEDS: WARFARIN SOD 5 MG TAB PO (16:56)
[2017-09-03 20:35] LABS: BEDSIDE GLUCOSE 258 MG/DL (70-105)
[2017-09-03] MEDS: LIDOCAINE 5% (LIDODERM) PATCH TD (20:49)
[2017-09-03] MEDS: ATORVASTATIN 10 MG TAB PO (20:51)
[2017-09-03] MEDS: AMITRIPTYLINE 50 MG TAB PO (20:51)
[2017-09-04] MEDS: oxyCODONE 5MG TAB PO ×4 (02:53→21:24)
[2017-09-04 06:38] LABS: BEDSIDE GLUCOSE 216 MG/DL (70-105)
[2017-09-04] MEDS: HumaLOG INSULIN (NovoLOG) PER UNIT SC ×4 (08:27→21:23)
[2017-09-04] MEDS: MULTIVITAMINS/MINERALS THERAP 1 TAB PO (08:28)
[2017-09-04] MEDS: CARVedilol 12.5 MG TAB PO ×2 (08:28→21:20)
[2017-09-04] MEDS: OMEPRAZOLE 20 MG CAP PO (08:28)
[2017-09-04] MEDS: DICLOFENAC EPOLAMINE 1.3 % PATCH TOP ×2 (08:28→21:22)
[2017-09-04] MEDS: MAGNESIUM OXIDE 400 MG TAB (MAG-OX) PO ×3 (08:28→21:22)
[2017-09-04] MEDS: CETIRIZINE (ZyrTEC) 10 MG TAB PO (08:29)
[2017-09-04] MEDS: FAMOTIDINE 20 MG TAB PO ×2 (08:29→21:23)
[2017-09-04] MEDS: **hydrALAZINE** 50 MG TAB PO ×3 (08:29→21:20)
[2017-09-04] MEDS: VITAMIN D 1,000 INTERNATIONAL UNITS TABLET PO ×2 (08:29→21:21)
[2017-09-04] MEDS: amLODIPine 5 MG TAB PO ×2 (08:29→21:20)
[2017-09-04] MEDS: FUROSEMIDE 20 MG TAB PO (08:29)
[2017-09-04] MEDS: AQUAPHOR **100GM** OINT TOP (08:30)
[2017-09-04] MEDS: **NOTE PATIENT COMMENT** MISC XX (08:30)
[2017-09-04] MEDS: LEVEMIR (INSULIN DETEMIR) 1 UNITS/0.01ML SC ×2 (08:30→21:21)
[2017-09-04] MEDS: buPROPion **XL** TABLET 150MG (WELLBUTRIN XL) PO (08:39)
[2017-09-04] MEDS: oxyCODONE 20 MG CR TAB PO ×2 (08:39→21:31)
[2017-09-04 12:37] LABS: BEDSIDE GLUCOSE 119 MG/DL (70-105)
[2017-09-04] MEDS: ACETAMINOPHEN TAB 650MG DOSE (2X325MG) PO (14:10)
[2017-09-04] MEDS: WARFARIN SOD 5 MG TAB PO (16:26)
[2017-09-04 17:43] LABS: BEDSIDE GLUCOSE 222 MG/DL (70-105)
[2017-09-04 20:57] LABS: BEDSIDE GLUCOSE 227 MG/DL (70-105)
[2017-09-04] MEDS: ATORVASTATIN 10 MG TAB PO (21:20)
[2017-09-04] MEDS: AMITRIPTYLINE 50 MG TAB PO (21:22)
[2017-09-04] MEDS: LIDOCAINE 5% (LIDODERM) PATCH TD (21:23)
[2017-09-05] MEDS: ACETAMINOPHEN TAB 650MG DOSE (2X325MG) PO ×2 (00:30→14:21)
[2017-09-05] MEDS: oxyCODONE 5MG TAB PO ×3 (01:45→16:56)
[2017-09-05 06:47] LABS: BEDSIDE GLUCOSE 221 MG/DL (70-105)
[2017-09-05] MEDS: OMEPRAZOLE 20 MG CAP PO (09:25)
[2017-09-05] MEDS: VITAMIN D 1,000 INTERNATIONAL UNITS TABLET PO ×2 (09:25→21:05)
[2017-09-05] MEDS: buPROPion **XL** TABLET 150MG (WELLBUTRIN XL) PO (09:26)
[2017-09-05] MEDS: MULTIVITAMINS/MINERALS THERAP 1 TAB PO (09:26)
[2017-09-05] MEDS: MAGNESIUM OXIDE 400 MG TAB (MAG-OX) PO ×3 (09:26→21:06)
[2017-09-05] MEDS: CETIRIZINE (ZyrTEC) 10 MG TAB PO (09:26)
[2017-09-05] MEDS: FUROSEMIDE 20 MG TAB PO (09:27)
[2017-09-05] MEDS: FAMOTIDINE 20 MG TAB PO ×2 (09:28→21:05)
[2017-09-05] MEDS: oxyCODONE 20 MG CR TAB PO ×2 (09:28→21:07)
[2017-09-05] MEDS: DICLOFENAC EPOLAMINE 1.3 % PATCH TOP ×2 (09:28→21:04)
[2017-09-05] MEDS: LEVEMIR (INSULIN DETEMIR) 1 UNITS/0.01ML SC ×2 (09:28→21:04)
[2017-09-05] MEDS: HumaLOG INSULIN (NovoLOG) PER UNIT SC ×4 (09:29→21:08)
[2017-09-05] MEDS: amLODIPine 5 MG TAB PO ×2 (09:33→21:05)
[2017-09-05] MEDS: CARVedilol 12.5 MG TAB PO ×2 (09:33→21:05)
[2017-09-05] MEDS: **NOTE PATIENT COMMENT** MISC XX (09:34)
[2017-09-05] MEDS: **hydrALAZINE** 50 MG TAB PO ×3 (09:34→21:08)
[2017-09-05 12:17] LABS: BEDSIDE GLUCOSE 179 MG/DL (70-105)
[2017-09-05] MEDS: WARFARIN SOD 5 MG TAB PO (16:54)
[2017-09-05 16:57] LABS: BEDSIDE GLUCOSE 211 MG/DL (70-105)
[2017-09-05 20:56] LABS: BEDSIDE GLUCOSE 210 MG/DL (70-105)
[2017-09-05] MEDS: LIDOCAINE 5% (LIDODERM) PATCH TD (21:04)
[2017-09-05] MEDS: ATORVASTATIN 10 MG TAB PO (21:05)
[2017-09-05] MEDS: AMITRIPTYLINE 50 MG TAB PO (21:06)
[2017-09-06] MEDS: oxyCODONE 5MG TAB PO ×4 (01:08→16:53)
[2017-09-06] MEDS: MAGNESIUM OXIDE 400 MG TAB (MAG-OX) PO ×3 (09:02→21:50)
[2017-09-06] MEDS: DICLOFENAC EPOLAMINE 1.3 % PATCH TOP ×2 (09:02→21:52)
[2017-09-06] MEDS: MULTIVITAMINS/MINERALS THERAP 1 TAB PO (09:03)
[2017-09-06] MEDS: FUROSEMIDE 20 MG TAB PO (09:03)
[2017-09-06] MEDS: OMEPRAZOLE 20 MG CAP PO (09:04)
[2017-09-06] MEDS: CETIRIZINE (ZyrTEC) 10 MG TAB PO (09:04)
[2017-09-06] MEDS: VITAMIN D 1,000 INTERNATIONAL UNITS TABLET PO ×2 (09:04→21:51)
[2017-09-06] MEDS: buPROPion **XL** TABLET 150MG (WELLBUTRIN XL) PO (09:04)
[2017-09-06] MEDS: oxyCODONE 20 MG CR TAB PO ×2 (09:06→21:52)
[2017-09-06] MEDS: ACETAMINOPHEN TAB 650MG DOSE (2X325MG) PO ×2 (09:07→13:31)
[2017-09-06] MEDS: HumaLOG INSULIN (NovoLOG) PER UNIT SC ×4 (09:07→21:50)
[2017-09-06] MEDS: LEVEMIR (INSULIN DETEMIR) 1 UNITS/0.01ML SC ×2 (09:07→21:50)
[2017-09-06] MEDS: **hydrALAZINE** 50 MG TAB PO ×3 (09:11→21:49)
[2017-09-06] MEDS: FAMOTIDINE 20 MG TAB PO ×2 (09:11→21:48)
[2017-09-06] MEDS: amLODIPine 5 MG TAB PO ×2 (09:11→21:52)
[2017-09-06] MEDS: AQUAPHOR **100GM** OINT TOP (09:12)
[2017-09-06] MEDS: **NOTE PATIENT COMMENT** MISC XX (09:12)
[2017-09-06] MEDS: CARVedilol 12.5 MG TAB PO ×2 (09:12→21:49)
[2017-09-06 12:17] LABS: BEDSIDE GLUCOSE 182 MG/DL (70-105)
[2017-09-06 12:17] LABS: BEDSIDE GLUCOSE 262 MG/DL (70-105)
[2017-09-06] MEDS: WARFARIN SOD 5 MG TAB PO (16:52)
[2017-09-06 17:13] LABS: BEDSIDE GLUCOSE 215 MG/DL (70-105)
[2017-09-06 20:24] LABS: BEDSIDE GLUCOSE 175 MG/DL (70-105)
[2017-09-06] MEDS: AMITRIPTYLINE 50 MG TAB PO (21:51)
[2017-09-06] MEDS: ATORVASTATIN 10 MG TAB PO (21:52)
[2017-09-06] MEDS: LIDOCAINE 5% (LIDODERM) PATCH TD (21:53)
[2017-09-07] MEDS: oxyCODONE 5MG TAB PO ×4 (02:07→17:37)
[2017-09-07] MEDS: ACETAMINOPHEN TAB 650MG DOSE (2X325MG) PO ×2 (02:43→12:12)
[2017-09-07 06:01] LABS: HEMATOCRIT 40.7 % (42.0-52.0); HEMOGLOBIN 12.8 g/dl (13.5-17.5); MEAN CORPUSCULAR HEMOGLOBIN 26.1 pg (27.0-33.0); MEAN CORPUSCULAR HGB CONC 31.4 g/dl (32.0-36.5); MEAN CORPUSCULAR VOLUME 82.9 fl (80.0-96.0); PLATELET COUNT, AUTOMATED 407 10^3/uL (150-450); RED BLOOD COUNT 4.91 10^6/uL (4.30-6.10); RED CELL DISTRIBUTION WIDTH 14.9 % (11.5-14.5); WHITE BLOOD COUNT 7.1 10^3/uL (4.0-10.0)
[2017-09-07 06:12] LABS: PROTHROMBIN TIME 26.2 SECONDS (12.4-14.5)
[2017-09-07 06:28] LABS: ANION GAP 6 MEQ/L (8-16); BLOOD UREA NITROGEN 20 MG/DL (7-18); CALCIUM LEVEL 9.2 MG/DL (8.5-10.1); CARBON DIOXIDE LEVEL 28 MEQ/L (21-32); CHLORIDE LEVEL 108 MEQ/L (98-107); CREATININE FOR GFR 1.36 MG/DL (0.70-1.30); GLOMERULAR FILTRATION RATE 57.7 (>56); GLUCOSE, FASTING 217 MG/DL (70-100); MAGNESIUM LEVEL 1.7 MG/DL (1.8-2.4); POTASSIUM SERUM 4.4 MEQ/L (3.5-5.1); SODIUM LEVEL 142 MEQ/L (136-145)
[2017-09-07] MEDS: MULTIVITAMINS/MINERALS THERAP 1 TAB PO (08:49)
[2017-09-07] MEDS: OMEPRAZOLE 20 MG CAP PO (08:50)
[2017-09-07] MEDS: VITAMIN D 1,000 INTERNATIONAL UNITS TABLET PO ×2 (08:50→21:05)
[2017-09-07] MEDS: buPROPion **XL** TABLET 150MG (WELLBUTRIN XL) PO (08:50)
[2017-09-07] MEDS: CETIRIZINE (ZyrTEC) 10 MG TAB PO (08:51)
[2017-09-07] MEDS: FAMOTIDINE 20 MG TAB PO ×2 (08:51→21:04)
[2017-09-07] MEDS: MAGNESIUM OXIDE 400 MG TAB (MAG-OX) PO ×3 (08:51→21:06)
[2017-09-07] MEDS: **hydrALAZINE** 50 MG TAB PO ×3 (08:54→21:06)
[2017-09-07] MEDS: oxyCODONE 20 MG CR TAB PO ×2 (08:54→21:11)
[2017-09-07] MEDS: CARVedilol 12.5 MG TAB PO ×2 (08:54→21:05)
[2017-09-07] MEDS: amLODIPine 5 MG TAB PO ×2 (08:55→21:06)
[2017-09-07] MEDS: **NOTE PATIENT COMMENT** MISC XX (08:56)
[2017-09-07] MEDS: FUROSEMIDE 20 MG TAB PO (08:56)
[2017-09-07] MEDS: LEVEMIR (INSULIN DETEMIR) 1 UNITS/0.01ML SC ×2 (08:56→21:03)
[2017-09-07] MEDS: DICLOFENAC EPOLAMINE 1.3 % PATCH TOP ×2 (08:56→21:07)
[2017-09-07] MEDS: HumaLOG INSULIN (NovoLOG) PER UNIT SC ×4 (08:56→20:56)
[2017-09-07 13:16] LABS: BEDSIDE GLUCOSE 150 MG/DL (70-105)
[2017-09-07] MEDS: WARFARIN SOD 5 MG TAB PO (16:24)
[2017-09-07] MEDS: AMITRIPTYLINE 50 MG TAB PO (21:05)
[2017-09-07] MEDS: ATORVASTATIN 10 MG TAB PO (21:06)
[2017-09-07] MEDS: LIDOCAINE 5% (LIDODERM) PATCH TD (21:06)
[2017-09-07 21:30] LABS: BEDSIDE GLUCOSE 174 MG/DL (70-105)
[2017-09-07 21:30] LABS: BEDSIDE GLUCOSE 191 MG/DL (70-105)
[2017-09-08] MEDS: oxyCODONE 5MG TAB PO ×3 (02:11→11:35)
[2017-09-08 06:44] LABS: BEDSIDE GLUCOSE 273 MG/DL (70-105)
[2017-09-08] MEDS: HumaLOG INSULIN (NovoLOG) PER UNIT SC ×4 (08:53→21:00)
[2017-09-08] MEDS: VITAMIN D 1,000 INTERNATIONAL UNITS TABLET PO ×2 (08:54→21:12)
[2017-09-08] MEDS: MAGNESIUM OXIDE 400 MG TAB (MAG-OX) PO ×3 (08:54→21:12)
[2017-09-08] MEDS: FUROSEMIDE 20 MG TAB PO (08:55)
[2017-09-08] MEDS: CETIRIZINE (ZyrTEC) 10 MG TAB PO (08:55)
[2017-09-08] MEDS: OMEPRAZOLE 20 MG CAP PO (08:55)
[2017-09-08] MEDS: MULTIVITAMINS/MINERALS THERAP 1 TAB PO (08:55)
[2017-09-08] MEDS: oxyCODONE 20 MG CR TAB PO ×2 (08:56→21:15)
[2017-09-08] MEDS: FAMOTIDINE 20 MG TAB PO ×2 (08:57→21:12)
[2017-09-08] MEDS: LEVEMIR (INSULIN DETEMIR) 1 UNITS/0.01ML SC ×2 (08:57→21:15)
[2017-09-08] MEDS: ACETAMINOPHEN TAB 650MG DOSE (2X325MG) PO ×3 (08:57→14:20)
[2017-09-08] MEDS: DICLOFENAC EPOLAMINE 1.3 % PATCH TOP ×2 (08:57→21:14)
[2017-09-08] MEDS: buPROPion **XL** TABLET 150MG (WELLBUTRIN XL) PO (08:57)
[2017-09-08] MEDS: **hydrALAZINE** 50 MG TAB PO ×3 (09:02→21:12)
[2017-09-08] MEDS: CARVedilol 12.5 MG TAB PO ×2 (09:02→21:13)
[2017-09-08] MEDS: **NOTE PATIENT COMMENT** MISC XX (09:03)
[2017-09-08] MEDS: AQUAPHOR **100GM** OINT TOP (09:03)
[2017-09-08] MEDS: amLODIPine 5 MG TAB PO ×2 (09:03→21:13)
[2017-09-08 11:49] LABS: BEDSIDE GLUCOSE 163 MG/DL (70-105)
[2017-09-08 13:47] LABS: BEDSIDE GLUCOSE 137 MG/DL (70-105)
[2017-09-08 17:52] LABS: BEDSIDE GLUCOSE 170 MG/DL (70-105)
[2017-09-08] MEDS: WARFARIN SOD 5 MG TAB PO (18:13)
[2017-09-08 18:27] LABS: BEDSIDE GLUCOSE 131 MG/DL (70-105)
[2017-09-08 20:33] LABS: NT-PRO BNP 227 PG/ML (<125)
[2017-09-08] MEDS: ATORVASTATIN 10 MG TAB PO (21:12)
[2017-09-08] MEDS: AMITRIPTYLINE 50 MG TAB PO (21:13)
[2017-09-08] MEDS: LIDOCAINE 5% (LIDODERM) PATCH TD (21:14)
[2017-09-08 22:15] LABS: BEDSIDE GLUCOSE 248 MG/DL (70-105)
[2017-09-09] MEDS: oxyCODONE 5MG TAB PO ×4 (01:07→17:35)
[2017-09-09 06:38] LABS: BEDSIDE GLUCOSE 156 MG/DL (70-105)
[2017-09-09] MEDS: ACETAMINOPHEN TAB 650MG DOSE (2X325MG) PO ×3 (06:46→17:36)
[2017-09-09] MEDS: **hydrALAZINE** 50 MG TAB PO ×3 (09:22→21:10)
[2017-09-09] MEDS: HumaLOG INSULIN (NovoLOG) PER UNIT SC ×4 (09:22→20:58)
[2017-09-09] MEDS: CARVedilol 12.5 MG TAB PO ×2 (09:23→21:10)
[2017-09-09] MEDS: FUROSEMIDE 20 MG TAB PO (09:23)
[2017-09-09] MEDS: MAGNESIUM OXIDE 400 MG TAB (MAG-OX) PO ×3 (09:24→21:10)
[2017-09-09] MEDS: amLODIPine 5 MG TAB PO ×2 (09:24→21:09)
[2017-09-09] MEDS: FAMOTIDINE 20 MG TAB PO ×2 (09:25→21:09)
[2017-09-09] MEDS: OMEPRAZOLE 20 MG CAP PO (09:25)
[2017-09-09] MEDS: VITAMIN D 1,000 INTERNATIONAL UNITS TABLET PO ×2 (09:25→21:09)
[2017-09-09] MEDS: buPROPion **XL** TABLET 150MG (WELLBUTRIN XL) PO (09:25)
[2017-09-09] MEDS: oxyCODONE 20 MG CR TAB PO ×2 (09:25→21:09)
[2017-09-09] MEDS: MULTIVITAMINS/MINERALS THERAP 1 TAB PO (09:25)
[2017-09-09] MEDS: CETIRIZINE (ZyrTEC) 10 MG TAB PO (09:26)
[2017-09-09] MEDS: DICLOFENAC EPOLAMINE 1.3 % PATCH TOP ×2 (09:26→21:08)
[2017-09-09] MEDS: LEVEMIR (INSULIN DETEMIR) 1 UNITS/0.01ML SC ×2 (09:26→21:10)
[2017-09-09] MEDS: **NOTE PATIENT COMMENT** MISC XX (09:26)
[2017-09-09 11:50] LABS: BEDSIDE GLUCOSE 141 MG/DL (70-105)
[2017-09-09 16:59] LABS: BEDSIDE GLUCOSE 268 MG/DL (70-105)
[2017-09-09] MEDS: WARFARIN SOD 5 MG TAB PO (17:33)
[2017-09-09] MEDS: LIDOCAINE 5% (LIDODERM) PATCH TD (21:08)
[2017-09-09] MEDS: AMITRIPTYLINE 50 MG TAB PO (21:08)
[2017-09-09] MEDS: ATORVASTATIN 10 MG TAB PO (21:10)
[2017-09-10] MEDS: oxyCODONE 5MG TAB PO ×4 (01:16→19:50)
[2017-09-10 06:45] LABS: HEMATOCRIT 40.5 % (42.0-52.0); HEMOGLOBIN 12.6 g/dl (13.5-17.5); MEAN CORPUSCULAR HEMOGLOBIN 25.7 pg (27.0-33.0); MEAN CORPUSCULAR HGB CONC 31.1 g/dl (32.0-36.5); MEAN CORPUSCULAR VOLUME 82.5 fl (80.0-96.0); PLATELET COUNT, AUTOMATED 385 10^3/uL (150-450); RED BLOOD COUNT 4.91 10^6/uL (4.30-6.10); RED CELL DISTRIBUTION WIDTH 14.9 % (11.5-14.5); WHITE BLOOD COUNT 6.9 10^3/uL (4.0-10.0)
[2017-09-10 06:59] LABS: INR 2.49; PROTHROMBIN TIME 27.9 SECONDS (12.4-14.5)
[2017-09-10 07:04] LABS: ANION GAP 4 MEQ/L (8-16); BLOOD UREA NITROGEN 20 MG/DL (7-18); CALCIUM LEVEL 9.4 MG/DL (8.5-10.1); CARBON DIOXIDE LEVEL 30 MEQ/L (21-32); CHLORIDE LEVEL 111 MEQ/L (98-107); CREATININE FOR GFR 1.41 MG/DL (0.70-1.30); GLOMERULAR FILTRATION RATE 55.4 (>56); GLUCOSE, FASTING 111 MG/DL (70-100); MAGNESIUM LEVEL 1.8 MG/DL (1.8-2.4); POTASSIUM SERUM 3.7 MEQ/L (3.5-5.1); SODIUM LEVEL 145 MEQ/L (136-145)
[2017-09-10] MEDS: **NOTE PATIENT COMMENT** MISC XX (09:00)
[2017-09-10] MEDS: LEVEMIR (INSULIN DETEMIR) 1 UNITS/0.01ML SC ×2 (09:12→20:46)
[2017-09-10] MEDS: DICLOFENAC EPOLAMINE 1.3 % PATCH TOP ×2 (09:13→20:16)
[2017-09-10] MEDS: HumaLOG INSULIN (NovoLOG) PER UNIT SC ×4 (09:13→20:46)
[2017-09-10] MEDS: FAMOTIDINE 20 MG TAB PO ×2 (09:14→20:18)
[2017-09-10] MEDS: OMEPRAZOLE 20 MG CAP PO (09:14)
[2017-09-10] MEDS: VITAMIN D 1,000 INTERNATIONAL UNITS TABLET PO ×2 (09:14→20:17)
[2017-09-10] MEDS: MAGNESIUM OXIDE 400 MG TAB (MAG-OX) PO ×3 (09:14→20:19)
[2017-09-10] MEDS: CETIRIZINE (ZyrTEC) 10 MG TAB PO (09:15)
[2017-09-10] MEDS: MULTIVITAMINS/MINERALS THERAP 1 TAB PO (09:15)
[2017-09-10] MEDS: ACETAMINOPHEN TAB 650MG DOSE (2X325MG) PO (09:16)
[2017-09-10] MEDS: oxyCODONE 20 MG CR TAB PO ×2 (09:16→22:05)
[2017-09-10] MEDS: AQUAPHOR **100GM** OINT TOP (09:17)
[2017-09-10] MEDS: FUROSEMIDE 20 MG TAB PO (09:17)
[2017-09-10] MEDS: buPROPion **XL** TABLET 150MG (WELLBUTRIN XL) PO (09:17)
[2017-09-10] MEDS: amLODIPine 5 MG TAB PO ×2 (09:20→20:18)
[2017-09-10] MEDS: CARVedilol 12.5 MG TAB PO ×2 (09:20→20:18)
[2017-09-10] MEDS: **hydrALAZINE** 50 MG TAB PO ×3 (09:21→20:17)
[2017-09-10] MEDS: ANALGESIC BALM CRM 120 GM TOP ×3 (11:19→20:20)
[2017-09-10 12:23] LABS: BEDSIDE GLUCOSE 242 MG/DL (70-105)
[2017-09-10 12:23] LABS: BEDSIDE GLUCOSE 157 MG/DL (70-105)
[2017-09-10 12:23] LABS: BEDSIDE GLUCOSE 89 MG/DL (70-105)
[2017-09-10 17:40] LABS: BEDSIDE GLUCOSE 251 MG/DL (70-105)
[2017-09-10] MEDS: WARFARIN SOD 5 MG TAB PO (17:56)
[2017-09-10] MEDS: LIDOCAINE 5% (LIDODERM) PATCH TD (20:16)
[2017-09-10] MEDS: ATORVASTATIN 10 MG TAB PO (20:17)
[2017-09-10] MEDS: AMITRIPTYLINE 50 MG TAB PO (20:19)
[2017-09-10 21:53] LABS: BEDSIDE GLUCOSE 285 MG/DL (70-105)
[2017-09-11] MEDS: oxyCODONE 5MG TAB PO ×2 (02:09→15:00)
[2017-09-11] MEDS: amLODIPine 5 MG TAB PO (08:59)
[2017-09-11] MEDS: VITAMIN D 1,000 INTERNATIONAL UNITS TABLET PO (09:00)
[2017-09-11] MEDS: **NOTE PATIENT COMMENT** MISC XX (09:00)
[2017-09-11] MEDS: FUROSEMIDE 20 MG TAB PO (09:00)
[2017-09-11] MEDS: MAGNESIUM OXIDE 400 MG TAB (MAG-OX) PO ×2 (09:00→15:00)
[2017-09-11] MEDS: MULTIVITAMINS/MINERALS THERAP 1 TAB PO (09:00)
[2017-09-11] MEDS: OMEPRAZOLE 20 MG CAP PO (09:01)
[2017-09-11] MEDS: **hydrALAZINE HCL** 25 MG TAB PO ×2 (09:01→15:00)
[2017-09-11] MEDS: buPROPion **XL** TABLET 150MG (WELLBUTRIN XL) PO (09:01)
[2017-09-11] MEDS: CARVedilol 12.5 MG TAB PO (09:01)
[2017-09-11] MEDS: oxyCODONE 20 MG CR TAB PO (09:02)
[2017-09-11] MEDS: CETIRIZINE (ZyrTEC) 10 MG TAB PO (09:02)
[2017-09-11] MEDS: FAMOTIDINE 20 MG TAB PO (09:02)
[2017-09-11] MEDS: HumaLOG INSULIN (NovoLOG) PER UNIT SC ×2 (09:03→12:15)
[2017-09-11] MEDS: LEVEMIR (INSULIN DETEMIR) 1 UNITS/0.01ML SC (09:03)
[2017-09-11] MEDS: ANALGESIC BALM CRM 120 GM TOP (09:04)
[2017-09-11] MEDS: DICLOFENAC EPOLAMINE 1.3 % PATCH TOP (09:04)
[2017-09-11 12:49] LABS: BEDSIDE GLUCOSE 111 MG/DL (70-105)
[2017-09-11 12:49] LABS: BEDSIDE GLUCOSE 77 MG/DL (70-105)
[2017-09-11] MEDS ORDERED: LEVEMIR (INSULIN DETEMIR) 1 UNITS/0.01ML SC (21:00)
== END 2017-09-11 17:03 | disposition home health service (06) | DRG 629 ==
LOC: M MSPAV 08-04 09:57 → M ED 15:46 → M ED INP 19:46 → M MSPAV 22:15
PROC: 0QBM0ZX Excision of Left Tarsal, Open Approach, Diagnostic (ICD-10-PCS; principal; 2017-07-17 16:30)
PROC: 0JDQ0ZZ Extraction of Right Foot Subcutaneous Tissue and Fascia, Open Approach (ICD-10-PCS; 2017-07-17 16:30)
DX: E11.69 Type 2 diabetes mellitus with other specified complication (principal); M86.172 Other acute osteomyelitis, left ankle and foot; L03.116 Cellulitis of left lower limb; I10 Essential (primary) hypertension; E78.5 Hyperlipidemia, unspecified; E11.40 Type 2 diabetes mellitus with diabetic neuropathy, unspecified; E66.01 Morbid (severe) obesity due to excess calories; B96.1 Klebsiella pneumoniae [K. pneumoniae] as the cause of diseases classified elsewhere; F41.9 Anxiety disorder, unspecified; B95.61 Methicillin susceptible Staphylococcus aureus infection as the cause of diseases classified elsewhere; F32.9 Major depressive disorder, single episode, unspecified; E83.42 Hypomagnesemia; B95.2 Enterococcus as the cause of diseases classified elsewhere; G89.29 Other chronic pain; L97.529 Non-pressure chronic ulcer of other part of left foot with unspecified severity; E11.621 Type 2 diabetes mellitus with foot ulcer; Z79.891 Long term (current) use of opiate analgesic; Z79.4 Long term (current) use of insulin; Z79.01 Long term (current) use of anticoagulants; Z79.899 Other long term (current) drug therapy; Z88.8 Allergy status to other drugs, medicaments and biological substances; Z87.891 Personal history of nicotine dependence; Z89.421 Acquired absence of other right toe(s); Z96.651 Presence of right artificial knee joint; Z86.718 Personal history of other venous thrombosis and embolism

== ENCOUNTER → 2017-09-09 | Outpatient (REF) | payer MEDICARE, MEDICAID ==
[2017-09-09 15:15] LABS: ESTIMATED AVERAGE GLUCOSE 235 MG/DL (60-110); HEMOGLOBIN A1c 9.8 %
== END ==
LOC: M LAB REF 11:29
DX: E11.621 Type 2 diabetes mellitus with foot ulcer (principal)
CPT/HCPCS: 83036

== ENCOUNTER → 2017-09-30 | Outpatient (CLI) | payer MEDICARE, MEDICAID ==
[2017-09-30 14:33] LABS: INR 1.05; PROTHROMBIN TIME 13.9 SECONDS (12.4-14.5)
== END ==
LOC: M LAB 13:14
DX: E11.40 Type 2 diabetes mellitus with diabetic neuropathy, unspecified (principal); I82.622 Acute embolism and thrombosis of deep veins of left upper extremity; Z79.01 Long term (current) use of anticoagulants
CPT/HCPCS: 85610

== ENCOUNTER 2017-10-15 14:38 | Emergency (ER) | payer MEDICARE, MEDICAID | END 2017-10-15 15:41 | disposition home or self-care (01) | LOC: M ED 14:38 | DX: E11.649 Type 2 diabetes mellitus with hypoglycemia without coma (principal); I10 Essential (primary) hypertension; Z79.4 Long term (current) use of insulin; Z79.899 Other long term (current) drug therapy; Z79.01 Long term (current) use of anticoagulants; Z91.89 Other specified personal risk factors, not elsewhere classified; E11.40 Type 2 diabetes mellitus with diabetic neuropathy, unspecified; E11.621 Type 2 diabetes mellitus with foot ulcer; L97.422 Non-pressure chronic ulcer of left heel and midfoot with fat layer exposed | CPT/HCPCS: 99282 ==

== ENCOUNTER 2017-12-11 11:35 | Emergency (ER) | payer MEDICARE, MEDICAID | END 2017-12-11 12:34 | disposition home or self-care (01) | LOC: M ED 11:35 | DX: E11.9 Type 2 diabetes mellitus without complications (principal); G89.29 Other chronic pain; I10 Essential (primary) hypertension; K21.9 Gastro-esophageal reflux disease without esophagitis; Z89.412 Acquired absence of left great toe; Z98.890 Other specified postprocedural states; Z87.891 Personal history of nicotine dependence; Z79.4 Long term (current) use of insulin; Z79.899 Other long term (current) drug therapy; Z79.01 Long term (current) use of anticoagulants | CPT/HCPCS: 99282 ==

== ENCOUNTER 2017-12-26 11:50 | Emergency (ER) | payer MEDICARE, MEDICAID | END 2017-12-26 14:14 | disposition home or self-care (01) | LOC: M ED 11:50 | DX: Z76.0 Encounter for issue of repeat prescription (principal); G89.29 Other chronic pain; M54.5 Low back pain; I10 Essential (primary) hypertension; J44.9 Chronic obstructive pulmonary disease, unspecified; E11.40 Type 2 diabetes mellitus with diabetic neuropathy, unspecified; E78.00 Pure hypercholesterolemia, unspecified; R56.9 Unspecified convulsions; F43.10 Post-traumatic stress disorder, unspecified; F41.9 Anxiety disorder, unspecified; F33.9 Major depressive disorder, recurrent, unspecified; K21.9 Gastro-esophageal reflux disease without esophagitis; Z79.899 Other long term (current) drug therapy; Z79.82 Long term (current) use of aspirin; Z79.01 Long term (current) use of anticoagulants; Z79.4 Long term (current) use of insulin; Z88.8 Allergy status to other drugs, medicaments and biological substances; Z87.891 Personal history of nicotine dependence | CPT/HCPCS: 99283 ==

== ENCOUNTER 2018-02-22 12:32 | Emergency (ER) | payer MEDICARE, MEDICAID ==
[2018-02-22 13:32] LABS: BEDSIDE GLUCOSE 371 MG/DL (70-105)
[2018-02-22 14:24] LABS: BASO # 0.1 10^3/uL (0.0-0.2); BASO % 0.9 % (0.0-1.0); EOS # 0.4 10^3/uL (0.0-0.50); EOS % 2.9 % (0.0-3.0); HEMATOCRIT 45.4 % (42.0-52.0); HEMOGLOBIN 14.6 g/dl (13.5-17.5); IMMATURE GRANULOCYTE % 2.1 % (0-3.0); LYMPH # 1.4 10^3/uL (1.5-4.5); LYMPH % 10.3 % (24.0-44.0); MEAN CORPUSCULAR HEMOGLOBIN 26.3 pg (27.0-33.0); MEAN CORPUSCULAR HGB CONC 32.2 g/dl (32.0-36.5); MEAN CORPUSCULAR VOLUME 81.8 fl (80.0-96.0); MONO # 0.8 10^3/uL (0.0-0.8); MONO % 5.5 % (0.0-5.0); NEUTROPHILS # 10.8 10^3/uL (1.8-7.7); NEUTROPHILS % 78.3 % (36.0-66.0); PLATELET COUNT, AUTOMATED 494 10^3/uL (150-450); RED BLOOD COUNT 5.55 10^6/uL (4.30-6.10); RED CELL DISTRIBUTION WIDTH 16.7 % (11.5-14.5); WHITE BLOOD COUNT 13.7 10^3/uL (4.0-10.0)
[2018-02-22 14:43] LABS: APPEARANCE, URINE CLEAR (CLEAR); BACTERIA, URINE AUTO NEGATIVE (NEGATIVE); BILIRUBIN, URINE AUTO NEGATIVE (NEGATIVE); BLOOD, URINE BLOOD NEGATIVE (NEGATIVE); COLOR, URINE YELLOW (YELLOW); GLUCOSE, URINE (UA) AUTO 3+ mg/dL (NEGATIVE); KETONE, URINE AUTO NEGATIVE (NEGATIVE); LEUKOCYTE ESTERASE, URINE AUTO NEGATIVE (NEGATIVE); NITRITE, URINE AUTO NEGATIVE (NEGATIVE); PROTEIN, URINE AUTO 3+ mg/dL (NEGATIVE); RBC, URINE AUTO 3 /HPF (0-3); SPECIFIC GRAVITY URINE AUTO 1.033 (1.002-1.035); SQUAMOUS EPITHELIAL CELL UR AU 0 /HPF (0-6); UROBILINOGEN, URINE AUTO 0.2 mg/dL (0.0-2.0); WBC, URINE AUTO 1 /HPF (0-3)
[2018-02-22 14:59] LABS: ANION GAP 9 MEQ/L (8-16); BLOOD UREA NITROGEN 21 MG/DL (7-18); C REACTIVE PROTEIN QUANTITATIV 2.64 MG/DL (0.00-0.30); CALCIUM LEVEL 9.5 MG/DL (8.5-10.1); CARBON DIOXIDE LEVEL 21 MEQ/L (21-32); CHLORIDE LEVEL 107 MEQ/L (98-107); CREATININE FOR GFR 1.42 MG/DL (0.70-1.30); GLOMERULAR FILTRATION RATE 54.7 (>56); GLUCOSE, FASTING 370 MG/DL (70-100); POTASSIUM SERUM 4.9 MEQ/L (3.5-5.1); SODIUM LEVEL 137 MEQ/L (136-145)
[2018-02-22 15:38] LABS: BEDSIDE GLUCOSE 338 MG/DL (70-105)
[2018-02-22] MEDS: NS 1,000 ML IV (15:44)
[2018-02-22] MEDS: ceFAZolin SOD 1 GM in D5W MINI-BAG PLUS 50 ML IV (15:45)
[2018-02-22] MEDS: HumaLOG INSULIN (NovoLOG) PER UNIT SC (15:45)
[2018-02-22 17:02] LABS: BEDSIDE GLUCOSE 284 MG/DL (70-105)
== END 2018-02-22 17:25 | disposition home or self-care (01) ==
LOC: M ED 12:32
DX: B35.6 Tinea cruris (principal); N49.2 Inflammatory disorders of scrotum; D72.829 Elevated white blood cell count, unspecified; E11.40 Type 2 diabetes mellitus with diabetic neuropathy, unspecified; I10 Essential (primary) hypertension; Z87.891 Personal history of nicotine dependence; Z86.718 Personal history of other venous thrombosis and embolism; Z79.82 Long term (current) use of aspirin; Z79.4 Long term (current) use of insulin; Z79.01 Long term (current) use of anticoagulants; Z79.899 Other long term (current) drug therapy; Z91.89 Other specified personal risk factors, not elsewhere classified
CPT/HCPCS: J0690

== ENCOUNTER 2018-04-21 14:58 | Emergency (ER) | payer MEDICARE, MEDICAID ==
[2018-04-21 15:18] LABS: BEDSIDE GLUCOSE 508 MG/DL (70-105)
[2018-04-21 16:14] LABS: ABG BASE EXCESS 0.1 (-2.0-2.0); ABG O2 SATURATION 94.1 % (95.0-99.0); ABG PARTIAL PRESSURE CO2 36.6 mmHg (35.0-45.0); ABG PARTIAL PRESSURE O2 65.7 mmHg (75.0-100.0); ABG STANDARD HCO3 24.5 MEQ/L (22.0-26.0); ABG TOTAL CO2 25.1 MEQ/L (22.0-29.0); ABG pH (ARTERIAL) 7.434 UNITS (7.350-7.450)
[2018-04-21 16:18] LABS: ANION GAP 6 MEQ/L (8-16); BLOOD UREA NITROGEN 15 MG/DL (7-18); CALCIUM LEVEL 9.3 MG/DL (8.5-10.1); CARBON DIOXIDE LEVEL 29 MEQ/L (21-32); CHLORIDE LEVEL 99 MEQ/L (98-107); GLOMERULAR FILTRATION RATE 55.6 (>56); GLUCOSE, FASTING 483 MG/DL (70-100); POTASSIUM SERUM 4.7 MEQ/L (3.5-5.1); SODIUM LEVEL 134 MEQ/L (136-145)
[2018-04-21] MEDS: HumuLIN R (REGULAR) INSULIN (NovoLIN R) **100U/ML** PER UNIT SC (16:42)
[2018-04-21 16:46] LABS: BEDSIDE GLUCOSE 501 MG/DL (70-105)
== END 2018-04-21 17:18 | disposition home or self-care (01) ==
LOC: M ED 14:58
DX: E11.65 Type 2 diabetes mellitus with hyperglycemia (principal); I10 Essential (primary) hypertension; F32.9 Major depressive disorder, single episode, unspecified; E11.621 Type 2 diabetes mellitus with foot ulcer; Z86.718 Personal history of other venous thrombosis and embolism; Z86.711 Personal history of pulmonary embolism; E11.69 Type 2 diabetes mellitus with other specified complication; L97.529 Non-pressure chronic ulcer of other part of left foot with unspecified severity; F17.200 Nicotine dependence, unspecified, uncomplicated; Z88.8 Allergy status to other drugs, medicaments and biological substances; Z79.899 Other long term (current) drug therapy; Z79.4 Long term (current) use of insulin; Z79.01 Long term (current) use of anticoagulants; Z79.82 Long term (current) use of aspirin
CPT/HCPCS: 82803

== ENCOUNTER 2018-05-19 13:49 | Emergency (ER) | payer MEDICARE, MEDICAID ==
[~2018-05-19] VITALS: Ht 195.6 cm; Wt 128.6 kg
[~2018-05-19 13:49] MED LIST changes: -ACET1TAB17 PO; +ACET1TAB55 PO; +AMIT50TA PO; -AMLO5TAB2 PO; +AMLO5TAB4 PO; +AUGM875T28 PO; +DICL13PA TOP; +ENAL20TA; +INSUDET SC; +INSUH10VL SC; +LIDO5TD TD; +LOTR1CRE12 TOP; +MILK12002 PO; -MILKSUS PO; +NAPR-885 PO; -NAPR500T3 PO; -NIAS1000 PO; -SENN8.6T8 PO; +SENN8.6T9 PO; +WARF-22 PO; -ZYLO300T4 PO; +ZYLO300T6 PO; +[UNRECOGNIZED DRUG - CODE] PO
[2018-05-19] MEDS ORDERED: PERC5TAB12 PO (17:24)
[2018-05-19 17:36] VITALS: BP 159/87
== END 2018-05-19 17:40 | disposition home or self-care (01) ==
LOC: M ED 13:49
DX: Z76.0 Encounter for issue of repeat prescription (principal); G89.29 Other chronic pain; M79.672 Pain in left foot; I10 Essential (primary) hypertension; J44.9 Chronic obstructive pulmonary disease, unspecified; E11.40 Type 2 diabetes mellitus with diabetic neuropathy, unspecified; E78.5 Hyperlipidemia, unspecified; Z89.421 Acquired absence of other right toe(s); Z79.899 Other long term (current) drug therapy; Z79.4 Long term (current) use of insulin; Z79.82 Long term (current) use of aspirin; Z79.01 Long term (current) use of anticoagulants; Z88.8 Allergy status to other drugs, medicaments and biological substances; Z87.891 Personal history of nicotine dependence

== ENCOUNTER 2018-06-16 15:04 | Inpatient (IN) | payer MEDICARE, MEDICAID ==
[~2018-06-16] VITALS: Ht 195.6 cm; Wt 129.2 kg
[~2018-06-16 15:04] MED LIST changes: -AMLO5TAB4 PO; +AMLO5TAB6 PO; -ENAL20TA; +MILK120011 PO; -MILK12002 PO
[2018-06-16 16:00] VITALS: BP 158/85
[2018-06-16] MEDS ORDERED: ACETAMINOPHEN TAB 650MG DOSE (2X325MG) PO PRN (16:15)
[2018-06-16] MEDS ORDERED: GLUCAGON FOR INJ 1 MG VIAL (J1610) SC PRN (16:15)
[2018-06-16] MEDS ORDERED: GLUCOSE 4 GM CHEW TABLET PO PRN (16:15)
[2018-06-16] MEDS ORDERED: DEXTROSE 50% 50 ML SYRINGE IV PRN (16:15)
[2018-06-16] MEDS ORDERED: LOTR1CRE12 TOP (16:34)
[2018-06-16] MEDS ORDERED: AMIT50TA PO (16:34)
[2018-06-16] MEDS ORDERED: WARF-23 PO (16:37)
[2018-06-16] MEDS ORDERED: INSUDET SC ×2 (16:37)
[2018-06-16] MEDS ORDERED: HYDR25TA PO (16:37)
[2018-06-16] MEDS ORDERED: MAGN400T2 PO (16:37)
[2018-06-16] MEDS ORDERED: OXYC1TAB23 PO (16:37)
[2018-06-16] MEDS ORDERED: FURO20TA2 PO (16:37)
[2018-06-16] MEDS ORDERED: PERCOCET 5MG/325MG TAB PO PRN (17:00)
[2018-06-16 17:07] LABS: BASO # 0.1 10^3/uL (0.0-0.2); BASO % 1.2 % (0.0-1.0); EOS # 0.5 10^3/uL (0.0-0.50); EOS % 4.2 % (0.0-3.0); HEMATOCRIT 47.4 % (42.0-52.0); HEMOGLOBIN 15.2 g/dl (13.5-17.5); LYMPH # 1.9 10^3/uL (1.5-4.5); LYMPH % 16.4 % (24.0-44.0); MEAN CORPUSCULAR HEMOGLOBIN 25.5 pg (27.0-33.0); MEAN CORPUSCULAR HGB CONC 32.1 g/dl (32.0-36.5); MEAN CORPUSCULAR VOLUME 79.4 fl (80.0-96.0); MONO # 0.6 10^3/uL (0.0-0.8); NEUTROPHILS # 7.9 10^3/uL (1.8-7.7); NEUTROPHILS % 69.6 % (36.0-66.0); PLATELET COUNT, AUTOMATED 489 10^3/uL (150-450); RED BLOOD COUNT 5.97 10^6/uL (4.30-6.10); WHITE BLOOD COUNT 11.3 10^3/uL (4.0-10.0)
[2018-06-16] MEDS: HumaLOG INSULIN (NovoLOG) PER UNIT SC SCH ×2 (17:29→22:29)
[2018-06-16 17:30] LABS: INR 1.14; PROTHROMBIN TIME 14.8 SECONDS (12.1-14.4)
[2018-06-16 17:42] LABS: ALBUMIN 3.5 GM/DL (3.2-5.2); BILIRUBIN,TOTAL 0.5 MG/DL (0.2-1.0); CALCIUM LEVEL 9.4 MG/DL (8.5-10.1); CREATININE FOR GFR 1.95 MG/DL (0.70-1.30); GLOMERULAR FILTRATION RATE 37.9 (>56); POTASSIUM SERUM 5.7 MEQ/L (3.5-5.1); TOTAL PROTEIN 6.8 GM/DL (6.4-8.2)
[2018-06-16] MEDS: PIPERACILLIN/TAZOBACTAM SOD 3.375 GM in D5W MINI-BAG PLUS 50 ML IV SCH (18:02)
[2018-06-16] MEDS: WARFARIN SOD 5 MG TAB PO SCH (18:03)
[2018-06-16] MEDS: PERCOCET 5MG/325MG TAB PO PRN (18:03)
[2018-06-16] MEDS: metFORMIN (GLUCOPHAGE) 1000 MG TABLET PO SCH (18:15)
[2018-06-16] MEDS ORDERED: VANCOMYCIN HCL 1,000 MG, VIAL MATE ADAPTER 1 EACH in D5W 250 ML IV ONE (20:00)
[2018-06-16] MEDS: VANCOMYCIN HCL 1,000 MG, VIAL MATE ADAPTER 1 EACH in D5W 250 ML IV ONE (21:00)
[2018-06-16] MEDS: CLOTRIMAZOLE 1% TOPICAL CREAM 30GM TOP SCH (21:00)
[2018-06-16] MEDS: ATORVASTATIN 10 MG TAB PO SCH (21:00)
[2018-06-16] MEDS ORDERED: PROHANCE 279.3MG/ML 5ML VIAL (A9576) As Ordered ONE (21:21)
[2018-06-16 22:00] VITALS: BP 131/63
--- NOTE | 2018-06-16 22:06 | PHACANCOPD ---
PHARMACY VANCOMYCIN DOSING Pt Demographics Demographics Patient Age:57 , Weight:129.200 , Gender: male Adjusted Body Weight Events Past 24 Hours Events Past 24 Hours: NO: Dialysis, Diuretic Therapy, Change in CrCl, Fever, Elevation in WBC, Pending Diagnostics, Pending Procedures, Other Vancomycin Vancomycin indication: SSSI/LT FOOT ULCER Vancomycin Target Ranges: 15-20 mcg/ml Vancomycin Load Y/N: Yes Load Dose Date Time Vancomycin Load Dose: 2GM Date: 06/16/18 Time: 21:00 Vancomycin Dose Date: 06/17/18. Current Vancomycin Dose: [1GM IV Q12H (08:00)] Intermittent Dosing?: No Labs Labs Laboratory Tests 06/16/18 16:44 Red Blood Count 5.97, Mean Corpuscular Volume 79.4 L, Mean Corpuscular Hemoglo bin 25.5 L, Mean Corpuscular Hemoglobin Concent 32.1, Red Cell Distribution Width 15.7 H, Neutrophils (%) (Auto) 69.6 H, Lymphocytes (%) (Auto) 16.4 L, Monocytes (%) (Auto) 5.0, Eosinophils (%) (Auto) 4.2 H, Basophils (%) (Auto) 1.2 H, Neutrophils # (Auto) 7.9 H, Lymphocytes # (Auto) 1.9, Monocytes # (Auto) 0.6, Eosinophils # (Auto) 0.5, Basophils # (Auto) 0.1, Calcium Level 9.4, Aspartate Amino Transf (AST/SGOT) 11, Alanine Aminotransferase (ALT/SGPT) 25, Alkaline Phosphatase 120 H, Total Bilirubin 0.5, Total Protein 6.8, Albumin 3.5 Micro Microbiology 06/16/18 Wound Culture, Received Pending Creatinine Clearance Date:06/16/18. Creatinine Clearance: [>50 ml/min]. Assessment and Plan Maintaining Current Dose?: Yes Reason for dose change: No Dose Change Pharmacist Note Pharmacist Note Date: 06/16/18. PharmD note: BASED ON PREVIOUS ADMISSION DATE, VANCO 2GM IV LOAD AT 21:00 TONIGHT FOLLOWED BY VANCO 1GM IV Q12H STARTING AT 8AM 06/17/18. A VANCO TROUGH WILL BE DRAWN WHEN AT STEADY STATE [facility] Jun 16, 2018 22:06
--- NOTE | 2018-06-16 22:15 | HPE ---
DATE OF ADMISSION: 06/16/2018 PRIMARY CARE PROVIDER: Dr. Moore ATTENDING PHYSICIAN: Dr. Malone PRODUCTION REPAIRER: Dr. Izaguirre CHIEF COMPLAINT: Worsening infection of the foot. HISTORY OF PRESENT ILLNESS: The patient is a 57-year-old white male with history of diabetes as well as left foot infection, referred for direct admission from Dr. Izaguirre's office. History is provided by himself. Per the patient, he has infection in his left heel, which was treated with Dr. Izaguirre as well as wound care center. He states he had several debridement surgeries done that lasted 2 years, and it was healed; however, the infection came back recently and is getting worse gradually. He went to see Dr. Izaguirre in the office, and Dr. Izaguirre referred him for direct admission to the hospital today. REVIEW OF SYSTEMS: Denies fever. No chills. No headache. No chest pain. No nausea. No vomiting. No abdominal pain. No diarrhea. All other systems reviewed but negative. PAST MEDICAL HISTORY: 1. Type 2 diabetes. 2. Hypertension. 3. Dyslipidemia. 4. Abdominal hernia. 5. 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 6. Recurrent infection in his left heel. PAST SURGICAL HISTORY: 1. Two hernia repairs. 2. Tonsillectomy. 3. Left foot debridement. SOCIAL HISTORY: Remote smoking; quit 7 years ago. No alcohol abuse. No illicit drug abuse. He is . He lives by himself. He is a full code. FAMILY HISTORY: His father and mother still alive. There is positive diabetes in the family. ALLERGIES: He is allergic to iodine which causes a rash. MEDICATIONS: - amitriptyline 50 mg by mouth daily - amlodipine 5 mg by mouth daily - aspirin 81 mg by mouth daily - atorvastatin 10 mg by mouth daily - Coreg 25 mg by mouth daily - enalapril 20 mg by mouth daily - famotidine 20 mg by mouth daily - hydralazine 25 mg by mouth three times a day - insulin Levemir 60 units at bedtime daily - metformin 1000 mg by mouth twice a day - oxycodone as needed - Coumadin 25 mg by mouth daily PHYSICAL EXAMINATION: VITAL SIGNS: Temperature 98.7, heart rate 80, respirations 20, blood pressure 150/80, oxygen saturation 100% on room air. GENERAL: He is awake, alert, oriented times three. He is not in acute distress. HEENT: Atraumatic, Pupils equal, round, and reactive to light. No jaundice. Extraocular muscles intact. Ears, nose, throat normal. Mouth: Mucosa normal. No jugular venous distention (JVD). LUNGS: Clear. No wheezes. No crackles. HEART: S1, S2, regular. No murmur. ABDOMEN: Soft. Bowel sounds positive, nontender. He does have a ventricular hernia in his abdomen. There is no edema in bilateral lower extremities. SKIN: No rash. NEUROLOGIC: Nonfocal. PSYCHOLOGIC: No acute psychosis. Regarding his left heel, there is a small wound open in the bottom of his left heel with moderate erythema and swelling in the area. There is some purulent drainage from the wound. IMPRESSION: 1. Left foot cellulitis, rule out osteomyelitis. 2. Type 2 diabetes with peripheral neuropathy. 3. Hypertension. 4. Dyslipidemia. PLAN: He will be admitted to medical/surgical floor. We will continue all his home medications. Will schedule MRI of his left foot to see if he has osteomyelitis or not. I will start him on intravenous (IV) Zosyn and vancomycin to broad coverage and will follow wound cultures. Dr. Izaguirre will consult for possible debridement. TANNER
[2018-06-16] MEDS: HEPARIN SOD (PORCINE) 5000 UNITS/ML VIAL SC SCH (22:30)
[2018-06-16] MEDS: LEVEMIR (INSULIN DETEMIR) 1 UNITS/0.01ML SC SCH (22:30)
[2018-06-16] MEDS: ENALAPRIL MALEATE 10 MG TAB PO SCH (22:31)
[2018-06-16] MEDS: MAGNESIUM OXIDE 400 MG TAB (MAG-OX) PO SCH (22:31)
[2018-06-16] MEDS: DOCUSATE SODIUM 100 MG CAP PO SCH (22:32)
[2018-06-16] MEDS: VITAMIN D 1,000 INTERNATIONAL UNITS TABLET PO SCH (22:32)
[2018-06-16] MEDS: CARVedilol 12.5 MG TAB PO SCH (22:33)
[2018-06-16] MEDS: **hydrALAZINE HCL** 25 MG TAB PO SCH (22:34)
[2018-06-16] MEDS: FAMOTIDINE 20 MG TAB PO SCH (22:35)
[2018-06-16] MEDS: AMITRIPTYLINE 50 MG TAB PO SCH (22:36)
[2018-06-16] MEDS: amLODIPine 5 MG TAB PO SCH (22:40)
[2018-06-17] MEDS: PIPERACILLIN/TAZOBACTAM SOD 3.375 GM in D5W MINI-BAG PLUS 50 ML IV SCH ×3 (03:02→18:46)
[2018-06-17 06:00] VITALS: BP 133/85
[2018-06-17] MEDS: HEPARIN SOD (PORCINE) 5000 UNITS/ML VIAL SC SCH ×3 (06:05→22:07)
[2018-06-17 06:59] LABS: INR 1.2; PROTHROMBIN TIME 15.3 SECONDS (12.1-14.4)
[2018-06-17 08:31] LABS: BASO # 0.2 10^3/uL (0.0-0.2); BASO % 1.6 % (0.0-1.0); EOS # 0.5 10^3/uL (0.0-0.50); EOS % 5.7 % (0.0-3.0); HEMATOCRIT 46.3 % (42.0-52.0); HEMOGLOBIN 14.5 g/dl (13.5-17.5); LYMPH # 2.1 10^3/uL (1.5-4.5); LYMPH % 23.4 % (24.0-44.0); MEAN CORPUSCULAR HEMOGLOBIN 25.1 pg (27.0-33.0); MEAN CORPUSCULAR HGB CONC 31.3 g/dl (32.0-36.5); MEAN CORPUSCULAR VOLUME 80.1 fl (80.0-96.0); MONO # 0.5 10^3/uL (0.0-0.8); MONO % 5.1 % (0.0-5.0); NEUTROPHILS # 5.7 10^3/uL (1.8-7.7); NEUTROPHILS % 62.1 % (36.0-66.0); PLATELET COUNT, AUTOMATED 436 10^3/uL (150-450); RED BLOOD COUNT 5.78 10^6/uL (4.30-6.10); WHITE BLOOD COUNT 9.1 10^3/uL (4.0-10.0)
[2018-06-17] MEDS: VITAMIN D 1,000 INTERNATIONAL UNITS TABLET PO SCH ×2 (08:31→20:26)
[2018-06-17] MEDS: VANCOMYCIN HCL 1,000 MG, VIAL MATE ADAPTER 1 EACH in D5W 250 ML IV SCH ×2 (08:31→20:30)
[2018-06-17] MEDS: MAGNESIUM OXIDE 400 MG TAB (MAG-OX) PO SCH ×3 (08:31→20:26)
[2018-06-17] MEDS: MULTIVITAMINS/MINERALS THERAP 1 TAB PO SCH (08:32)
[2018-06-17] MEDS: **hydrALAZINE HCL** 25 MG TAB PO SCH ×3 (08:35→20:29)
[2018-06-17] MEDS: ENALAPRIL MALEATE 10 MG TAB PO SCH ×2 (08:35→20:28)
[2018-06-17 08:36] LABS: C REACTIVE PROTEIN QUANTITATIV 3.46 MG/DL (0.00-0.30); CALCIUM LEVEL 9.2 MG/DL (8.5-10.1); CREATININE FOR GFR 1.75 MG/DL (0.70-1.30); POTASSIUM SERUM 4.4 MEQ/L (3.5-5.1)
[2018-06-17] MEDS: FUROSEMIDE 20 MG TAB PO SCH (08:36)
[2018-06-17] MEDS: buPROPion **XL** TABLET 150MG (WELLBUTRIN XL) PO SCH (08:36)
[2018-06-17] MEDS: metFORMIN (GLUCOPHAGE) 1000 MG TABLET PO SCH (08:36)
[2018-06-17] MEDS: amLODIPine 5 MG TAB PO SCH ×2 (08:36→20:29)
[2018-06-17] MEDS: CARVedilol 12.5 MG TAB PO SCH ×2 (08:36→20:27)
[2018-06-17] MEDS: LEVEMIR (INSULIN DETEMIR) 1 UNITS/0.01ML SC SCH ×2 (08:37→20:25)
[2018-06-17] MEDS: ASPIRIN 81 MG ENTERIC TAB PO SCH (08:37)
[2018-06-17] MEDS: DOCUSATE SODIUM 100 MG CAP PO SCH ×2 (08:37→20:35)
[2018-06-17] MEDS: FAMOTIDINE 20 MG TAB PO SCH ×2 (08:37→20:27)
[2018-06-17] MEDS: HumaLOG INSULIN (NovoLOG) PER UNIT SC SCH ×4 (08:38→20:25)
[2018-06-17] MEDS: CLOTRIMAZOLE 1% TOPICAL CREAM 30GM TOP SCH ×2 (08:39→20:30)
--- NOTE | 2018-06-17 09:46 | REP ---
MRI LEFT FOOT WITHOUT AND WITH IV GADOLINIUM: HISTORY: Left heel infection. Rule out osteomyelitis. NO COMPARISON RADIOGRAPHS. Comparison MRI study July 15, 2017 showed evidence of osteomyelitis of the posterior and plantar surface of the calcaneus. TECHNIQUE: Axial coronal and sagittal imaging planes utilized. T1- and T2-weighted scans were obtained in the usual fashion with and without fat saturation. The gadolinium enhancement dose is 10 mL of intravenous ProHance. MRI FINDINGS: Today's MRI findings are quite similar to the prior study with a fairly large area of eroded calcaneal cortex along the posterior and plantar surface of the calcaneus. There is some reactive low T1, low T2 signal intensity sclerosis associated with this. The sclerosis is more prominent. The erosion is similar in size. The overlying soft tissues appear more inflamed today with evidence of sinus tract and soft tissue induration. There is a small abscess cavity seen on postcontrast images measuring 1.9 x 1.1 x 0.9 cm. Cortical and medullary bone signal intensity are otherwise normal. There is moderate osteoarthritis at the 1st MTP joint. IMPRESSION: Findings consistent with chronic osteomyelitis of the posterior and plantar surface of the calcaneus with bony erosion similar in size to the prior study. There is increased inflammatory change in the overlying soft tissues with a small soft tissue abscess. Electronically Signed by Wolf Chris MD 06/17/2018 11:27 A
[2018-06-17 09:47] LABS: ERYTHROCYTE SEDIMENTATION RATE 9 mm/hr (0-20)
--- NOTE | 2018-06-17 12:52 | CR ---
DATE OF CONSULTATION: 06/17/2018 REASON FOR CONSULTATION: Left foot infection. Patient seen and examined in the hospital. He was seen by myself yesterday in the office and noted to have worsening nature of wound with purulent drainage and cellulitis going up his left leg. He has chronic osteomyelitis to his left heel stemming from a puncture wound with metallic implant injuring his calcaneus. He has had improvement on several occasions with treatment by myself and Dr. Knapp, but has had subsequent breakdown and recurrence of the ulceration. PAST MEDICAL HISTORY: Significant for: Diabetes, uncontrolled. Hypertension. Hyperlipidemia. Abdominal hernia. Cervical spine degeneration. Chronic left heel ulceration and osteomyelitis. PAST SURGICAL HISTORY: Includes: Left foot debridement. Tonsillectomy. Hernia repair. SOCIAL HISTORY: Denies smoking. Denies alcohol use. FAMILY HISTORY: Noncontributory. ALLERGIES: 1. BETADINE. HOME MEDICATIONS: - amitriptyline - amlodipine - aspirin - atorvastatin - Coreg - enalapril - famotidine - hydralazine - insulin - metformin - oxycodone - Coumadin Vitals are reviewed. He has remained afebrile since admission. Labs are reviewed. White blood cell count was 11.3 on admission, today is 9.1. ESR is 9. CRP is 3.46. His hemoglobin A1c was 13. Creatinine is 1.75. Hemoglobin 14.5. His INR is 1.2. MRI images and report reviewed. Osteomyelitis again noted to his left heel, unchanged from previous MRIs. There is soft tissue abscess on the plantar aspect of the heel measuring approximately 2 cm x 1 cm. No further osteomyelitic changes extending into talus or other adjacent bones. Lower extremity examination: Erythema and edema centered around the left heel with purulent drainage. Pedal pulses are palpable. ASSESSMENT: 57-year-old diabetic male with chronic osteomyelitis, abscess left heel. PLAN: Wound cultures were taken, await results. Continue with empiric antibiotics. Will plan for surgery tomorrow, left heel incision and drainage with implantation of antibiotic beads. Patient will likely be on wound VAC therapy once the infection is resolved. He is to be non-weightbearing to his left foot. Will follow.
--- NOTE | 2018-06-17 13:06 | IPNPDOC ---
Date Seen The patient was seen on 06/17/18. Progress Note SUBJECTIVE: 06/16/18: MRI left posterior and plantar chronic osteomyelitis on iv vanco and zosyn. Afebrile no chills overnight. no other issues per RN. PHYSICAL EXAMINATION: VITAL SIGNS: PLS SEE BELOW GENERAL: He is awake, alert, oriented times three. He is not in acute distress. HEENT: Atraumatic, Pupils equal, round, and reactive to light. No jaundice. Extraocular muscles intact. Ears, nose, throat normal. Mouth: Mucosa normal. No jugular venous distention (JVD). LUNGS: Clear. No wheezes. No crackles. HEART: S1, S2, regular. No murmur. ABDOMEN: Soft. Bowel sounds positive, nontender. He does have a ventricular hernia in his abdomen. There is no edema in bilateral lower extremities. SKIN: No rash. NEUROLOGIC: Nonfocal. PSYCHOLOGIC: No acute psychosis. Regarding his left heel, there is a small wound open in the bottom of his left heel with moderate erythema and swelling in the area. There is some purulent drainage from the wound. LABORATORY DATA, IMAGING STUDIES, MICROBIOLOGY: REVIEWED, PLS SEE BELOW ASSESSMENT AND PLAN: The patient is a 57-year-old white male with history of diabetes as well as left foot infection, referred for direct admission from Dr. Izaguirre's office. History is provided by himself. Per the patient, he has infection in his left heel, which was treated with Dr. Izaguirre as well as wound care center. He states he had several debridement surgeries done that lasted 2 years, and it was healed; however, the infection came back recently and is getting worse gradually. He went to see Dr. Izaguirre in the office, and Dr. Izaguirre referred him for direct admission to the hospital today. Chronic Left posterior calcaneal osteomyelitis. admitted to medical/surgical floor. We will continue all his home medications. MRI of his left foot OM: on intravenous (IV) Zosyn and vancomycin to broad coverage and will follow wound cultures. Dr. Izaguirre for debridement and mgt. right upper extremity DVT, on chronic anticoagulation with warfarin Type 2 diabetes with peripheral neuropathy on levemir bid, consistent carbs diet, hypoglycemic protocol, insulin sliding scale with coverage Hypertension. resumed on home meds Dyslipidemia. resumed on home meds Abdominal hernia. 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 chronic obesity complicating care depression/anxiety chronic resumed on home meds Diet: consistent carbs DVT prophylaxis: on warfarin. VS, I&O, 24H, [place] Vital Signs/I&O Vital Signs Date Time Temp Pulse Resp B/P (MAP) Pulse Ox O2 Delivery O2 Flow Rate FiO2 06/17/18 06:00 97.9 60 18 133/85 (101) 92 Room Air I&O- Last 24 Hours up to 6 AM 06/17/18 06:00 Intake Total 1580 ml Output Total 200 ml Balance 1380 ml Laboratory Data 24H LABS Laboratory Tests 2 06/16/18 16:44: Immature Granulocyte % (Auto) 3.6H, White Blood Count 11.3H, Red Blood Count 5.97, Hemoglobin 15.2, Hematocrit 47.4, Mean Corpuscular Volume 79.4L, Mean Corpuscular Hemoglobin 25.5L, Mean Corpuscular Hemoglobin Concent 32.1, Red Cell Distribution Width 15.7H, Platelet Count 489H, Neutrophils (%) (Auto) 69.6H, Lymphocytes (%) (Auto) 16.4L, Monocytes (%) (Auto) 5.0, Eosinophils (%) (Auto) 4.2H, Basophils (%) (Auto) 1.2H, Neutrophils # (Auto) 7.9H, Lymphocytes # (Auto) 1.9, Monocytes # (Auto) 0.6, Eosinophils # (Auto) 0.5, Basophils # (Auto) 0.1, Nucleated Red Blood Cells % (auto) 0.0, Prothrombin Time 14.8H, Prothromb Time International Ratio 1.14, Anion Gap 9, Glomerular Filtration Rate 37.9L, Estimated Mean Plasma Glucose 326H, Hemoglobin A1c 13.0, Blood Urea Nitrogen 34H, Creatinine 1.95H, Sodium Level 129L, Potassium Level 5.7H, Chloride Level 98, Carbon Dioxide Level 22, Calcium Level 9.4, Aspartate Amino Transf (AST/SGOT) 11, Alanine Aminotransferase (ALT/SGPT) 25, Alkaline Phosphatase 120H, Total Bilirubin 0.5, Total Protein 6.8, Albumin 3.5, Albumin/Globulin Ratio 1.06 06/16/18 16:53: Bedside Glucose (Misc Panel) 587*H 06/16/18 18:43: Bedside Glucose (Misc Panel) 410H 06/16/18 19:44: Bedside Glucose (Misc Panel) 445H 06/17/18 05:08: Bedside Glucose (Misc Panel) 313H 06/17/18 05:51: Prothrombin Time 15.3H, Prothromb Time International Ratio 1.20 CBC/BMP Laboratory Tests 06/16/18 16:44 Red Blood Count 5.97, Mean Corpuscular Volume 79.4 L, Mean Corpuscular Hemoglobin 25.5 L, Mean Corpuscular Hemoglobin Concent 32.1, Red Cell Distribution Width 15.7 H, Neutrophils (%) (Auto) 69.6 H, Lymphocytes (%) (Auto) 16.4 L, Monocytes (%) (Auto) 5.0, Eosinophils (%) (Auto) 4.2 H, Basophils (%) (Auto) 1.2 H, Neutrophils # (Auto) 7.9 H, Lymphocytes # (Auto) 1.9, Monocytes # (Auto) 0.6, Eosinophils # (Auto) 0.5, Basophils # (Auto) 0.1, Calcium Level 9.4, Aspartate Amino Transf (AST/SGOT) 11, Alanine Aminotransferase (ALT/SGPT) 25, Alkaline Phosphatase 120 H, Total Bilirubin 0.5, Total Protein 6.8, Albumin 3.5 Microbiology Microbiology 06/16/18 Wound Culture, Received Pending DIPIKA ESPINOSA MD Jun 17, 2018 08:02
[2018-06-17 14:00] VITALS: BP 147/65
[2018-06-17] MEDS: PERCOCET 5MG/325MG TAB PO PRN (19:10)
[2018-06-17] MEDS: ATORVASTATIN 10 MG TAB PO SCH (20:27)
[2018-06-17] MEDS: AMITRIPTYLINE 50 MG TAB PO SCH (20:28)
[2018-06-17 22:00] VITALS: BP 141/92
[2018-06-18] MEDS: PIPERACILLIN/TAZOBACTAM SOD 3.375 GM in D5W MINI-BAG PLUS 50 ML IV SCH ×3 (02:57→19:33)
[2018-06-18 06:00] VITALS: BP 150/72
[2018-06-18 07:17] LABS: HEMOGLOBIN 14.9 g/dl (13.5-17.5); MEAN CORPUSCULAR HEMOGLOBIN 24.9 pg (27.0-33.0); MEAN CORPUSCULAR HGB CONC 31.7 g/dl (32.0-36.5); MEAN CORPUSCULAR VOLUME 78.5 fl (80.0-96.0); PLATELET COUNT, AUTOMATED 487 10^3/uL (150-450); RED BLOOD COUNT 5.99 10^6/uL (4.30-6.10); WHITE BLOOD COUNT 9.3 10^3/uL (4.0-10.0)
[2018-06-18 07:35] LABS: INR 1.1; PROTHROMBIN TIME 14.4 SECONDS (12.1-14.4)
[2018-06-18] MEDS: PERCOCET 5MG/325MG TAB PO PRN ×3 (07:39→23:15)
[2018-06-18 07:42] LABS: CALCIUM LEVEL 9.3 MG/DL (8.5-10.1); CREATININE FOR GFR 1.77 MG/DL (0.70-1.30); GLOMERULAR FILTRATION RATE 42.4 (>56); POTASSIUM SERUM 4.5 MEQ/L (3.5-5.1); VANCOMYCIN LEVEL TROUGH 15.1 UG/ML (10.0-20.0)
--- NOTE | 2018-06-18 07:57 | PHACANCOPD ---
PHARMACY VANCOMYCIN DOSING Pt Demographics Demographics Patient Age:57 , Weight:129.200 , Gender: male Adjusted Body Weight Events Past 24 Hours Events Past 24 Hours: NO: Dialysis, Diuretic Therapy, Change in CrCl, Fever, Elevation in WBC, Pending Diagnostics, Pending Procedures, Other Vancomycin Vancomycin indication: SSSI/LT FOOT ULCER Vancomycin Target Ranges: 15-20 mcg/ml Vancomycin Load Y/N: Yes Load Dose Date Time Vancomycin Load Dose: 2GM Date: 06/16/18 Time: 21:00 Vancomycin Dose Date: 06/17/18. Current Vancomycin Dose: [1GM IV Q12H (08:00)] Intermittent Dosing?: No Labs Labs Item Value Date Time Vancomycin Level Trough 14.5 UG/ML 01/23/17 1056 White Blood Count 9.3 10^3/uL 06/18/18 0649 White Blood Count 9.1 10^3/uL 06/17/18 0547 White Blood Count 11.3 10^3/uL H 06/16/18 1644 Creatinine 1.95 MG/DL H 06/16/18 1644 Creatinine 1.75 MG/DL H 06/17/18 0547 Creatinine 1.77 MG/DL H 06/18/18 0649 Vancomycin Level Trough 15.1 UG/ML 06/18/18 0649 Vital Signs Label Value Date Time Patient Temperature 97.6 degrees F 06/18/18 0600 Temperature Source Temporal 06/18/18 0600 Patient Temperature 96.6 degrees F 06/17/18 2200 Temperature Source Temporal 06/17/18 2200 Patient Temperature 99.5 degrees F 06/17/18 1400 Temperature Source Temporal 06/17/18 1400 Micro Microbiology 06/16/18 Wound Culture, Received Pending Creatinine Clearance Date:06/16/18. Creatinine Clearance: [>50 ml/min]. Assessment and Plan Maintaining Current Dose?: Yes Reason for dose change: No Dose Change Pharmacist Note Pharmacist Note 06/18/18: Trough this AM resulted at 15.1mcg/ml. This is within our goal so the plan is to continue current dosing of Vanco 1G IV Q12H@0800. We will continue to monitor and adjust dose as needed. Date: 06/16/18. PharmD note: BASED ON PREVIOUS ADMISSION DATE, VANCO 2GM IV LOAD AT 21:00 TONIGHT FOLLOWED BY VANCO 1GM IV Q12H STARTING AT 8AM 06/17/18. A VANCO TROUGH WILL BE DRAWN WHEN AT [facility] Jun 18, 2018 07:57
[2018-06-18] MEDS: DOCUSATE SODIUM 100 MG CAP PO SCH ×2 (08:34→20:21)
[2018-06-18] MEDS: ASPIRIN 81 MG ENTERIC TAB PO SCH (08:34)
[2018-06-18] MEDS: **hydrALAZINE HCL** 25 MG TAB PO SCH ×3 (08:35→20:19)
[2018-06-18] MEDS: MULTIVITAMINS/MINERALS THERAP 1 TAB PO SCH (08:36)
[2018-06-18] MEDS: buPROPion **XL** TABLET 150MG (WELLBUTRIN XL) PO SCH (08:36)
[2018-06-18] MEDS: CARVedilol 12.5 MG TAB PO SCH ×2 (08:36→20:20)
[2018-06-18] MEDS: metFORMIN (GLUCOPHAGE) 1000 MG TABLET PO SCH (08:36)
[2018-06-18] MEDS: FAMOTIDINE 20 MG TAB PO SCH ×2 (08:37→20:20)
[2018-06-18] MEDS: FUROSEMIDE 20 MG TAB PO SCH (08:37)
--- NOTE | 2018-06-18 08:37 | IPNPDOC ---
Date Seen The patient was seen on 06/18/18. Progress Note SUBJECTIVE: Pt is NPO for debridement by Dr. Izaguirre. He denies any pain, fevers. 06/16/18: MRI left posterior and plantar chronic osteomyelitis on iv vanco and zosyn. no other issues per RN. warfarin held . PHYSICAL EXAMINATION: VITAL SIGNS: PLS SEE BELOW GENERAL: He is awake, alert, oriented times three. He is not in acute distress. HEENT: Atraumatic, Pupils equal, round, and reactive to light. No jaundice. Extraocular muscles intact. Ears, nose, throat normal. Mouth: Mucosa normal. No jugular venous distention (JVD). LUNGS: Clear. No wheezes. No crackles. HEART: S1, S2, regular. No murmur. ABDOMEN: Soft. Bowel sounds positive, nontender. He does have a ventricular hernia in his abdomen. There is no edema in bilateral lower extremities. SKIN: No rash. NEUROLOGIC: Nonfocal. PSYCHOLOGIC: No acute psychosis. Regarding his left heel, there is a small wound open in the bottom of his left heel with moderate erythema and swelling in the area. There is some purulent drainage from the wound. LABORATORY DATA, IMAGING STUDIES, MICROBIOLOGY: REVIEWED, PLS SEE BELOW ASSESSMENT AND PLAN: The patient is a 57-year-old white male with history of diabetes as well as left foot infection, referred for direct admission from Dr. Izaguirre's office. History is provided by himself. Per the patient, he has infection in his left heel, which was treated with Dr. Izaguirre as well as wound care center. He states he had several debridement surgeries done that lasted 2 years, and it was healed; however, the infection came back recently and is getting worse gradually. He went to see Dr. Izaguirre in the office, and Dr. Izaguirre referred him for direct admission to the hospital today. Chronic Left posterior calcaneal osteomyelitis. admitted to medical/surgical floor. We will continue all his home medications. MRI of his left foot OM: on intravenous (IV) Zosyn and vancomycin to broad coverage and will follow wound cultures. Dr. Izaguirre for debridement and mgt. right upper extremity DVT, warfarin held as pt is scheduled for OR debridement of the left foot. Type 2 diabetes with peripheral neuropathy on levemir bid, consistent carbs diet, hypoglycemic protocol, insulin sliding scale with coverage Hypertension. resumed on home meds Dyslipidemia. resumed on home meds Abdominal hernia. 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 chronic obesity complicating care depression/anxiety chronic resumed on home meds Diet: consistent carbs DVT prophylaxis: on warfarin. VS, I&O, 24H, Fishbone Vital Signs/I&O Vital Signs Date Time Temp Pulse Resp B/P (MAP) Pulse Ox O2 Delivery O2 Flow Rate FiO2 06/18/18 07:39 18 Room Air 06/18/18 06:00 97.6 76 150/72 (98) 94 I&O- Last 24 Hours up to 6 AM 06/18/18 05:59 Intake Total 2080 ml Output Total 2550 ml Balance -470 ml Laboratory Data 24H LABS Laboratory Tests 2 06/17/18 11:28: Bedside Glucose (Misc Panel) 197H 06/17/18 16:30: Bedside Glucose (Misc Panel) 248H 06/17/18 20:14: Bedside Glucose (Misc Panel) 332H 06/18/18 06:49: Nucleated Red Blood Cells % (auto) 0.0, Prothrombin Time 14.4, Prothromb Time International Ratio 1.10, Anion Gap 7L, Glomerular Filtration Rate 42.4L, Blood Urea Nitrogen 27H, Creatinine 1.77H, Sodium Level 140, Potassium Level 4.5, Chloride Level 105, Carbon Dioxide Level 28, Calcium Level 9.3, Vancomycin Level Trough 15.1 CBC/BMP Laboratory Tests 06/18/18 06:49 Red Blood Count 5.99, Mean Corpuscular Volume 78.5 L, Mean Corpuscular Hemoglobin 24.9 L, Mean Corpuscular Hemoglobin Concent 31.7 L, Red Cell Distribution Width 16.2 H, Calcium Level 9.3 Microbiology Microbiology 06/16/18 Wound Culture, Received Pending DIPIKA ESPINOSA MD Jun 18, 2018 08:36
[2018-06-18] MEDS: amLODIPine 5 MG TAB PO SCH ×2 (08:38→20:21)
[2018-06-18] MEDS: ENALAPRIL MALEATE 10 MG TAB PO SCH ×2 (08:38→20:21)
[2018-06-18] MEDS: VITAMIN D 1,000 INTERNATIONAL UNITS TABLET PO SCH ×2 (08:38→20:18)
[2018-06-18] MEDS: MAGNESIUM OXIDE 400 MG TAB (MAG-OX) PO SCH ×3 (08:39→20:19)
[2018-06-18] MEDS: HumaLOG INSULIN (NovoLOG) PER UNIT SC SCH ×4 (08:39→20:22)
[2018-06-18] MEDS: VANCOMYCIN HCL 1,000 MG, VIAL MATE ADAPTER 1 EACH in D5W 250 ML IV SCH ×2 (08:40→20:20)
[2018-06-18] MEDS: CLOTRIMAZOLE 1% TOPICAL CREAM 30GM TOP SCH ×2 (08:42→20:23)
[2018-06-18] MEDS: LEVEMIR (INSULIN DETEMIR) 1 UNITS/0.01ML SC SCH ×2 (08:57→20:22)
[2018-06-18] MEDS ORDERED: VANCOMYCIN 1000 MG/20 ML VIAL (J3370) ONE (09:00)
[2018-06-18 14:00] VITALS: BP 122/70
[2018-06-18] MEDS ORDERED: VANCOMYCIN 1000 MG/20 ML VIAL (J3370) As Ordered ONE (15:12)
[2018-06-18] MEDS ORDERED: PROPOFOL 200 MG/20 ML VIAL As Ordered ONE (15:33)
[2018-06-18] MEDS ORDERED: LIDOCAINE 2% INJ 100 MG/5 ML SDV (FOR ANES.) As Ordered ONE (15:33)
[2018-06-18] MEDS ORDERED: MIDAZOLAM INJ 2 MG/2 ML VIAL (J2250) As Ordered ONE (15:34)
[2018-06-18] MEDS ORDERED: ONDANSETRON 4MG/2ML VIAL (J2405) As Ordered ONE (15:34)
[2018-06-18] MEDS ORDERED: fentaNYL 100 MCG/2 ML INJECTION (J3010) As Ordered ONE (15:35)
[2018-06-18] MEDS ORDERED: BUPIVACAINE HCL 0.5% 30 ML VIAL As Ordered ONE (17:18)
[2018-06-18] MEDS ORDERED: LIDOCAINE 1% SDV INJ 30 ML VIAL As Ordered ONE (17:18)
[2018-06-18] MEDS ORDERED: PERCOCET 5MG/325MG TAB PO PRN (18:15)
[2018-06-18] MEDS ORDERED: ONDANSETRON 4MG/2ML VIAL (J2405) IV PRN (18:15)
[2018-06-18] MEDS ORDERED: LR 1,000 ML IV SCH (18:15)
[2018-06-18] MEDS ORDERED: fentaNYL 100 MCG/2 ML INJECTION (J3010) IV PRN (18:15)
[2018-06-18 18:45] VITALS: BP 131/74
[2018-06-18 19:00] VITALS: BP 138/70
[2018-06-18] MEDS: ATORVASTATIN 10 MG TAB PO SCH (20:20)
[2018-06-18] MEDS: AMITRIPTYLINE 50 MG TAB PO SCH (20:20)
[2018-06-18 22:00] VITALS: BP 121/58
[2018-06-19] MEDS: MORPHINE 4 MG/ML 1ML VIAL/SYRINGE (J2270) IV PRN ×4 (01:11→23:34)
[2018-06-19 02:00] VITALS: BP 127/59
[2018-06-19] MEDS: PIPERACILLIN/TAZOBACTAM SOD 3.375 GM in D5W MINI-BAG PLUS 50 ML IV SCH (03:01)
[2018-06-19] MEDS: PERCOCET 5MG/325MG TAB PO PRN ×2 (04:36→18:20)
[2018-06-19 06:00] VITALS: BP 119/68
[2018-06-19] MEDS: HEPARIN SOD (PORCINE) 5000 UNITS/ML VIAL SC SCH ×3 (06:15→21:44)
[2018-06-19 06:36] LABS: CALCIUM LEVEL 8.9 MG/DL (8.5-10.1); CREATININE FOR GFR 1.79 MG/DL (0.70-1.30); GLOMERULAR FILTRATION RATE 41.9 (>56); POTASSIUM SERUM 3.9 MEQ/L (3.5-5.1)
[2018-06-19 06:37] LABS: HEMATOCRIT 46.5 % (42.0-52.0); HEMOGLOBIN 14.2 g/dl (13.5-17.5); MEAN CORPUSCULAR HGB CONC 30.5 g/dl (32.0-36.5); PLATELET COUNT, AUTOMATED 452 10^3/uL (150-450); RED BLOOD COUNT 5.67 10^6/uL (4.30-6.10); WHITE BLOOD COUNT 8.7 10^3/uL (4.0-10.0)
[2018-06-19 06:40] LABS: INR 1.2; PROTHROMBIN TIME 15.4 SECONDS (12.1-14.4)
[2018-06-19] MEDS: HumaLOG INSULIN (NovoLOG) PER UNIT SC SCH ×4 (07:30→21:45)
--- NOTE | 2018-06-19 08:21 | RO ---
DATE OF PROCEDURE: 06/18/2018 PREPROCEDURE DIAGNOSIS: Left heel ulcer and calcaneal osteomyelitis. POSTPROCEDURE DIAGNOSIS: Left heel ulcer and calcaneal osteomyelitis. PROCEDURE: Left foot irrigation and drainage bone biopsy with implantation of antibiotic beads. SURGEON: Manish Izaguirre DPM IT ADMINISTRATIVE ASSISTANT: None. ANESTHESIA: Monitored anesthesia care with preoperative injection of 20 mL of 1:1 mixture of 1% lidocaine plain and 1/2% Marcaine plain. ESTIMATED BLOOD LOSS: 10 mL. MATERIALS: OsteoSet resorbable beads with 1 gram vancomycin powder, #2-0 nylon. SPECIMEN: Left foot necrotic tissue and left foot calcaneus for pathology and culture. COMPLICATIONS: None. CONDITION: Stable. Jovanny Herrera is a 57-year-old gentleman who has been being treated for a chronic heel ulceration and chronic osteomyelitis. He had a metallic puncture wound approximately 2 years ago which penetrated into his bone. He had been treated on several occasions for osteomyelitis with subsequent improvement in closure of the wound, however, he ultimately broke down over the last few months and has had worsening drainage and pain to his foot. He was seen by Dr. Knapp who has been performing wound care on him who suggested he be evaluated for possible surgery. Patient was seen in my office and found to have significant probing, purulence and worsening condition of the wound. A decision was made to bring him to the operating room based on MRI findings. The patient side and site were identified and marked in the preoperative holding area. Consent was reviewed and obtained. All risks, complications and alternatives to the procedure were explained to the patient's in detail and all questions were answered. DESCRIPTION OF PROCEDURE: The patient was brought to the operating room and placed on the operating room table in supine position. Monitored anesthesia care was delivered by the anesthesia team. Preoperative injection of 20 mL of 1:1 mixture of 1% lidocaine plain and 1/2% Marcaine plain were injected to the left foot. The left foot was prepped and draped in a normal sterile fashion. A tourniquet was applied to the left ankle and was inflated to 250 mmHg. The wound was inspected and there was approximately 5 cm of probing to the plantar aspect of the wound which did probe to bone. An incision was made using a #10 blade extending the wound proximally and excising the surrounding indurated wound tissue. There was a spongy necrotic abscess appearing tissue directly inferior to the wound. This was excised and sent for pathology. There was not significant other necrotic or purulent tissue noted. Irregular bone was encountered at the inferior margin of the calcaneus. Portion of this was resected with the rongeur and sent for pathology as well as culture. Further debridement was performed until no obvious necrotic tissue was identified. The site was then irrigated with 3000 liters of pulse irrigation. Following this, some resorbable Osteoset beads impregnated with vancomycin were inserted adjacent to the bone. Partial closure to the proximal portion of the incision was performed with #2-0 Nylon. The remaining portion of the wound was packed using saline soaked gauze. Sterile dressings were applied. Tourniquet was deflated. Patient was brought to postanesthesia care unit with vital signs stable, neurovascular status intact. He will be re-admitted to the floor. He is to remain non-weightbearing. Will plan dressing changes with ultimate plans for wound Vac therapy once drainage lessens and infection is controlled. Will follow.
[2018-06-19] MEDS: LEVEMIR (INSULIN DETEMIR) 1 UNITS/0.01ML SC SCH ×2 (08:56→21:44)
[2018-06-19] MEDS: FUROSEMIDE 20 MG TAB PO SCH (08:57)
[2018-06-19] MEDS: MAGNESIUM OXIDE 400 MG TAB (MAG-OX) PO SCH ×3 (08:57→20:21)
[2018-06-19] MEDS: DOCUSATE SODIUM 100 MG CAP PO SCH ×2 (08:57→20:23)
[2018-06-19] MEDS: ASPIRIN 81 MG ENTERIC TAB PO SCH (08:58)
[2018-06-19] MEDS: metFORMIN (GLUCOPHAGE) 1000 MG TABLET PO SCH (08:58)
[2018-06-19] MEDS: VITAMIN D 1,000 INTERNATIONAL UNITS TABLET PO SCH ×2 (08:58→20:21)
[2018-06-19] MEDS: buPROPion **XL** TABLET 150MG (WELLBUTRIN XL) PO SCH (08:59)
[2018-06-19] MEDS: FAMOTIDINE 20 MG TAB PO SCH ×2 (08:59→20:23)
[2018-06-19] MEDS: MULTIVITAMINS/MINERALS THERAP 1 TAB PO SCH (08:59)
[2018-06-19] MEDS: CLOTRIMAZOLE 1% TOPICAL CREAM 30GM TOP SCH ×2 (09:00→21:45)
[2018-06-19] MEDS: **hydrALAZINE HCL** 25 MG TAB PO SCH ×3 (09:00→20:22)
[2018-06-19] MEDS: ENALAPRIL MALEATE 10 MG TAB PO SCH ×2 (09:00→20:23)
[2018-06-19] MEDS: CARVedilol 12.5 MG TAB PO SCH ×2 (09:01→20:22)
[2018-06-19] MEDS: amLODIPine 5 MG TAB PO SCH ×2 (09:01→21:43)
[2018-06-19] MEDS: VANCOMYCIN HCL 1,000 MG, VIAL MATE ADAPTER 1 EACH in D5W 250 ML IV SCH ×2 (09:02→20:20)
[2018-06-19 10:00] VITALS: BP 154/87
--- NOTE | 2018-06-19 10:13 | IPNPDOC ---
Date Seen The patient was seen on 06/19/18. Progress Note SUBJECTIVE: c./o pain in left foot nonweightbearing, s/p debridement 06/18/18. no fever or chills. no other issues per RN. OBJECTIVE PHYSICAL EXAMINATION: VITAL SIGNS: Please see below. GENERAL: He is awake, alert, oriented times three. He is not in acute distress. HEENT: Atraumatic, Pupils equal, round, and reactive to light. No jaundice. Extraocular muscles intact. Ears, nose, throat normal. Mouth: Mucosa normal. No jugular venous distention (JVD). LUNGS: Clear. No wheezes. No crackles. HEART: S1, S2, regular. No murmur. ABDOMEN: Soft. Bowel sounds positive, nontender. He does have a ventricular hernia in his abdomen. There is no edema in bilateral lower extremities. EXTREMITIES: LEFT FOOT BANDAGED S/P 06/18/18 debridement LABORATORY DATA, IMAGING STUDIES, MICROBIOLOGY: REVIEWED, PLS SEE BELOW PROCEDURES: DATE OF PROCEDURE: 06/18/2018 Left heel ulcer and calcaneal osteomyelitis. PROCEDURE: Left foot irrigation and drainage bone biopsy with implantation of antibiotic beads.SURGEON: Marely Izaguirre DPM There was a spongy necrotic abscess appearing tissue directly inferior to the wound. This was excised and sent for pathology. There was not significant other necrotic or purulent tissue noted. Irregular bone was encountered at the inferior margin of the calcaneus. Portion of this was resected with the rongeur and sent for pathology as well as culture. Further debridement was performed until no obvious necrotic tissue was identified. The site was then irrigated with 3000 liters of pulse irrigation. Following this, some resorbable Osteoset beads impregnated with vancomycin were inserted adjacent to the bone. Partial closure to the proximal portion of the incision was performed with #2-0 Nylon. The remaining portion of the wound was packed using saline soaked gauze. Sterile dressings were applied. Tourniquet was deflated. Patient was brought to postanesthesia care unit with vital signs stable, neurovascular status intact. He will be re-admitted to the floor. He is to remain non-weightbearing. Will plan dressing changes with ultimate plans for wound Vac therapy once drainage lessens and infection is controlled. Will follow.MARELY IZAGUIRRE DPM 06/18/18 655 ASSESSMENT AND PLAN: The patient is a 57-year-old white male with history of diabetes as well as left foot infection, referred for direct admission from Dr. Izaguirre's office. History is provided by himself. Per the patient, he has infection in his left heel, which was treated with Dr. Izaguirre as well as wound care center. He states he had several debridement surgeries done that lasted 2 years, and it was healed; however, the infection came back recently and is getting worse gradually. He went to see Dr. Izaguirre in the office, and Dr. Izaguirre referred him for direct admission to the hospital today. Chronic Left posterior calcaneal osteomyelitis. admitted to medical/surgical floor. We will continue all his home medications. MRI of his left foot OM: on intravenous s/p (IV) Zosyn on iv vancomycin for MRSA in wound cx. Dr. Izaguirre for debridement and mgt. non-weightbearing. Will plan dressing changes with ultimate plans for wound Vac therapy once drainage lessens and infection is controlled. right upper extremity DVT, on chronic warfarin. held for or debridement 06/18/18 Type 2 diabetes with peripheral neuropathy on levemir bid, consistent carbs diet, hypoglycemic protocol, insulin sliding scale with coverage Hypertension. resumed on home meds Dyslipidemia. resumed on home meds Abdominal hernia. 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 chronic obesity complicating care depression/anxiety chronic resumed on home meds Diet: consistent carbs VS, I&O, 24H, Fishbone Vital Signs/I&O Vital Signs Date Time Temp Pulse Resp B/P (MAP) Pulse Ox O2 Delivery O2 Flow Rate FiO2 06/19/18 10:04 83 18 138/78 06/19/18 06:00 97.3 92 Room Air 06/19/18 05:10 18.0 I&O- Last 24 Hours up to 6 AM 06/19/18 06:00 Intake Total 1760 ml Output Total 1785 ml Balance -25 ml Laboratory Data 24H LABS Laboratory Tests 2 06/18/18 11:24: Bedside Glucose (Misc Panel) 210H 06/18/18 20:03: Bedside Glucose (Misc Panel) 288H 06/19/18 05:53: Nucleated Red Blood Cells % (auto) 0.0, Prothrombin Time 15.4H, Prothromb Time International Ratio 1.20, Anion Gap 7L, Glomerular Filtration Rate 41.9L, Blood Urea Nitrogen 25H, Creatinine 1.79H, Sodium Level 138, Potassium Level 3.9, Chloride Level 103, Carbon Dioxide Level 28, Calcium Level 8.9 CBC/BMP Laboratory Tests 06/19/18 05:53 Red Blood Count 5.67, Mean Corpuscular Volume 82.0, Mean Corpuscular Hemoglobin 25.0 L, Mean Corpuscular Hemoglobin Concent 30.5 L, Red Cell Distribution Width 15.8 H, Calcium Level 8.9 Microbiology Microbiology 06/18/18 Gram Stain, Received Pending 06/18/18 Wound Culture, Received Pending 06/16/18 Wound Culture - Final, Complete Staph.aureus Methicillin Resis DIPIKA ESPINOSA MD Jun 19, 2018 10:10
--- NOTE | 2018-06-19 10:23 | IPN ---
DATE: 06/19/2018 Patient seen and examined postoperatively. He denies any overnight complaints. States his pain has been controlled. Vitals are reviewed. He has remained afebrile. Labs drawn show white blood cell count of 8.7, hemoglobin 14.2. Culture results of heel swab on admission grew methicillin Staphylococcus Aureus. Lower extremity examination wound with some sanguinous drainage on dressings. No obvious necrotic tissue in the wound base. ASSESSMENT: 57-year-old male with chronic osteomyelitis left heel status post incision and drainage with implantation of antibiotic beads. PLAN: Continue vancomycin. Will discontinue the Zosyn. Start wound dressings twice daily with saline packed gauze into the wound. Will plan for wound VAC therapy once drainage lessens.
[2018-06-19 14:00] VITALS: BP 157/80
[2018-06-19] MEDS: ATORVASTATIN 10 MG TAB PO SCH (20:22)
[2018-06-19] MEDS: AMITRIPTYLINE 50 MG TAB PO SCH (20:23)
[2018-06-19 22:00] VITALS: BP 123/74
[2018-06-20] MEDS: PERCOCET 5MG/325MG TAB PO PRN ×3 (00:41→16:30)
[2018-06-20] MEDS: HEPARIN SOD (PORCINE) 5000 UNITS/ML VIAL SC SCH ×3 (05:35→21:51)
[2018-06-20 06:00] VITALS: BP 134/64
[2018-06-20 06:19] LABS: HEMATOCRIT 45.8 % (42.0-52.0); HEMOGLOBIN 14.1 g/dl (13.5-17.5); MEAN CORPUSCULAR HEMOGLOBIN 25.3 pg (27.0-33.0); MEAN CORPUSCULAR HGB CONC 30.8 g/dl (32.0-36.5); MEAN CORPUSCULAR VOLUME 82.1 fl (80.0-96.0); PLATELET COUNT, AUTOMATED 492 10^3/uL (150-450); RED BLOOD COUNT 5.58 10^6/uL (4.30-6.10); WHITE BLOOD COUNT 8.4 10^3/uL (4.0-10.0)
[2018-06-20 06:38] LABS: CALCIUM LEVEL 8.9 MG/DL (8.5-10.1); CREATININE FOR GFR 1.7 MG/DL (0.70-1.30); GLOMERULAR FILTRATION RATE 44.4 (>56); POTASSIUM SERUM 3.9 MEQ/L (3.5-5.1)
[2018-06-20 07:09] LABS: C REACTIVE PROTEIN QUANTITATIV 0.45 MG/DL (0.00-0.30)
[2018-06-20] MEDS: HumaLOG INSULIN (NovoLOG) PER UNIT SC SCH ×4 (07:30→21:50)
[2018-06-20 07:40] LABS: ERYTHROCYTE SEDIMENTATION RATE 4 mm/hr (0-20)
[2018-06-20] MEDS: metFORMIN (GLUCOPHAGE) 1000 MG TABLET PO SCH (08:46)
[2018-06-20] MEDS: MAGNESIUM OXIDE 400 MG TAB (MAG-OX) PO SCH ×3 (08:46→20:26)
[2018-06-20] MEDS: MULTIVITAMINS/MINERALS THERAP 1 TAB PO SCH (08:47)
[2018-06-20] MEDS: VITAMIN D 1,000 INTERNATIONAL UNITS TABLET PO SCH ×2 (08:47→20:29)
[2018-06-20] MEDS: DOCUSATE SODIUM 100 MG CAP PO SCH ×2 (08:47→20:30)
[2018-06-20] MEDS: FUROSEMIDE 20 MG TAB PO SCH (08:48)
[2018-06-20] MEDS: buPROPion **XL** TABLET 150MG (WELLBUTRIN XL) PO SCH (08:48)
[2018-06-20] MEDS: ENALAPRIL MALEATE 10 MG TAB PO SCH ×2 (08:49→20:30)
[2018-06-20] MEDS: ASPIRIN 81 MG ENTERIC TAB PO SCH (08:49)
[2018-06-20] MEDS: amLODIPine 5 MG TAB PO SCH ×2 (08:49→20:31)
[2018-06-20] MEDS: FAMOTIDINE 20 MG TAB PO SCH ×2 (08:49→20:31)
[2018-06-20] MEDS: **hydrALAZINE HCL** 25 MG TAB PO SCH ×3 (08:50→20:30)
[2018-06-20] MEDS: CARVedilol 12.5 MG TAB PO SCH ×2 (08:50→20:31)
[2018-06-20] MEDS: LEVEMIR (INSULIN DETEMIR) 1 UNITS/0.01ML SC SCH ×2 (08:51→21:50)
[2018-06-20] MEDS: VANCOMYCIN HCL 1,000 MG, VIAL MATE ADAPTER 1 EACH in D5W 250 ML IV SCH ×2 (08:52→20:24)
[2018-06-20] MEDS: CLOTRIMAZOLE 1% TOPICAL CREAM 30GM TOP SCH ×2 (12:32→20:31)
[2018-06-20] MEDS: MORPHINE 4 MG/ML 1ML VIAL/SYRINGE (J2270) IV PRN (13:52)
[2018-06-20 14:00] VITALS: BP 127/59
--- NOTE | 2018-06-20 16:43 | IPNPDOC ---
Date Seen The patient was seen on 06/20/18. Progress Note SUBJECTIVE: Pt seen and examined at the bedside. Chart has been reviewed. Pain is tolerable when pt is supine with nonweight bearing left foot s/p debridement 06/18/18. POSITIVE FOR MRSA on contact isolation.no fever or chills. no other issues per RN. Pt is concerned about his 3rd floor apartment without an elevator and his ability to ambulate being nonweight bearing on his left foot. vanco beads implanted after debridement on 06/18/18. wound cx: sensitive to clinda and tetracycline. OBJECTIVE PHYSICAL EXAMINATION: VITAL SIGNS: Please see below. GENERAL: He is awake, alert, oriented times three. He is not in acute distress. HEENT: Atraumatic, Pupils equal, round, and reactive to light. No jaundice. Extraocular muscles intact. Ears, nose, throat normal. Mouth: Mucosa normal. No jugular venous distention (JVD). LUNGS: Clear. No wheezes. No crackles. HEART: S1, S2, regular. No murmur. ABDOMEN: Soft. Bowel sounds positive, nontender. He does have a ventricular hernia in his abdomen. There is no edema in bilateral lower extremities. EXTREMITIES: LEFT FOOT BANDAGED S/P 06/18/18 debridement LABORATORY DATA, IMAGING STUDIES, MICROBIOLOGY: REVIEWED, PLS SEE BELOW PROCEDURES: DATE OF PROCEDURE: 06/18/2018 Left heel ulcer and calcaneal osteomyelitis. PROCEDURE: Left foot irrigation and drainage bone biopsy with implantation of antibiotic beads.SURGEON: Marely Izaguirre DPM There was a spongy necrotic abscess appearing tissue directly inferior to the wound. This was excised and sent for pathology. There was not significant other necrotic or purulent tissue noted. Irregular bone was encountered at the inferior margin of the calcaneus. Portion of this was resected with the rongeur and sent for pathology as well as culture. Further debridement was performed until no obvious necrotic tissue was identified. The site was then irrigated with 3000 liters of pulse irrigation. Following this, some resorbable Osteoset beads impregnated with vancomycin were inserted adjace nt to the bone. Partial closure to the proximal portion of the incision was performed with #2-0 Nylon. The remaining portion of the wound was packed using saline soaked gauze. Sterile dressings were applied. Tourniquet was deflated. Patient was brought to postanesthesia care unit with vital signs stable, neurovascular status intact. He will be re-admitted to the floor. He is to remain non-weightbearing. Will plan dressing changes with ultimate plans for wound Vac therapy once drainage lessens and infection is controlled. Will follow.MARELY IZAGUIRRE DPM 06/18/18 180 ASSESSMENT AND PLAN: The patient is a 57-year-old white male with history of diabetes as well as left foot infection, referred for direct admission from Dr. Izaguirre's office. History is provided by himself. Per the patient, he has infection in his left heel, which was treated with Dr. Izaguirre as well as wound care center. He states he had several debridement surgeries done that lasted 2 years, and it was healed; however, the infection came back recently and is getting worse gradually. He went to see Dr. Izaguirre in the office, and Dr. Izaguirre referred him for direct admission to the hospital today. Chronic Left posterior calcaneal osteomyelitis. admitted to medical/surgical floor. We will continue all his home medications. MRI of his left foot OM: on intravenous s/p (IV) Zosyn on iv vancomycin for MRSA in wound cx. Dr. Izaguirre consulted for debridement and mgt. non-weightbearing. Will plan dressing changes with ultimate plans for wound Vac therapy once drainage lessens and infection is controlled. Pain is tolerable when pt is supine with nonweight bearing left foot s/p debridement 06/18/18. POSITIVE FOR MRSA on contact isolation.no fever or chills. no other issues per RN. Pt is concerned about his 3rd floor apartment without an elevator and his ability to ambulate being nonweight bearing on his left foot. vanco beads implanted after debridement on 06/18/18. wound cx: sensitive to clinda and tetracycline. right upper extremity DVT, on chronic warfarin. held for or debridement 06/18/18 Type 2 diabetes with peripheral neuropathy on levemir bid, consistent carbs diet, hypoglycemic protocol, insulin sliding scale with coverage Hypertension. resumed on home meds Dyslipidemia. resumed on home meds Abdominal hernia. 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 chronic obesity complicating care depression/anxiety chronic resumed on home meds Diet: consistent carbs disposition: PFS consulted VS, I&O, 24H, Tali Vital Signs/I&O Vital Signs Date Time Temp Pulse Resp B/P (MAP) Pulse Ox O2 Delivery O2 Flow Rate FiO2 06/20/18 14:52 18 06/20/18 14:00 98.9 71 127/59 (81) 99 Room Air 06/19/18 05:10 18.0 I&O- Last 24 Hours up to 6 AM 06/20/18 06:00 Intake Total 2310 ml Output Total 750 ml Balance 1560 ml Laboratory Data 24H LABS Laboratory Tests 2 06/19/18 17:21: Bedside Glucose (Misc Panel) 223H 06/19/18 20:11: Bedside Glucose (Misc Panel) 354H 06/20/18 05:44: Nucleated Red Blood Cells % (auto) 0.0, Erythrocyte Sedimentation Rate 4, Anion Gap 6L, Glomerular Filtration Rate 44.4L, Blood Urea Nitrogen 21H, Creatinine 1.70H, Sodium Level 140, Potassium Level 3.9, Chloride Level 106, Carbon Dioxide Level 28, Calcium Level 8.9, C-Reactive Protein, Quantitative 0.45H 06/20/18 11:48: Bedside Glucose (Misc Panel) 181H 06/20/18 15:27: Bedside Glucose (Misc Panel) 93 CBC/BMP Laboratory Tests 06/20/18 05:44 Red Blood Count 5.58, Mean Corpuscular Volume 82.1, Mean Corpuscular Hemoglobin 25.3 L, Mean Corpuscular Hemoglobin Concent 30.8 L, Red Cell Distribution Width 15.9 H, Calcium Level 8.9 Microbiology Microbiology 06/18/18 Gram Stain - Final, Complete 06/18/18 Wound Culture - Final, Complete Corynebacterium Species 06/16/18 Wound Culture - Final, Complete Staph.aureus Methicillin Resis DIPIKA ESPINOSA MD Jun 20, 2018 16:43
[2018-06-20] MEDS: AMITRIPTYLINE 50 MG TAB PO SCH (20:30)
[2018-06-20] MEDS: ATORVASTATIN 10 MG TAB PO SCH (20:31)
[2018-06-20 22:00] VITALS: BP 134/62
[2018-06-21] MEDS: HEPARIN SOD (PORCINE) 5000 UNITS/ML VIAL SC SCH ×3 (05:08→20:23)
[2018-06-21] MEDS: PERCOCET 5MG/325MG TAB PO PRN ×3 (05:08→20:20)
[2018-06-21 06:00] VITALS: BP 150/72
[2018-06-21 07:17] LABS: HEMATOCRIT 45.7 % (42.0-52.0); HEMOGLOBIN 14.2 g/dl (13.5-17.5); MEAN CORPUSCULAR HEMOGLOBIN 25.1 pg (27.0-33.0); MEAN CORPUSCULAR HGB CONC 31.1 g/dl (32.0-36.5); MEAN CORPUSCULAR VOLUME 80.7 fl (80.0-96.0); PLATELET COUNT, AUTOMATED 549 10^3/uL (150-450); RED BLOOD COUNT 5.66 10^6/uL (4.30-6.10); WHITE BLOOD COUNT 9.6 10^3/uL (4.0-10.0)
[2018-06-21] MEDS: HumaLOG INSULIN (NovoLOG) PER UNIT SC SCH ×4 (07:30→20:22)
[2018-06-21 07:35] LABS: ERYTHROCYTE SEDIMENTATION RATE 2 mm/hr (0-20)
[2018-06-21 07:50] LABS: C REACTIVE PROTEIN QUANTITATIV 0.33 MG/DL (0.00-0.30); CALCIUM LEVEL 9.3 MG/DL (8.5-10.1); CREATININE FOR GFR 1.74 MG/DL (0.70-1.30); GLOMERULAR FILTRATION RATE 43.3 (>56); POTASSIUM SERUM 4.8 MEQ/L (3.5-5.1); VANCOMYCIN LEVEL TROUGH 17.5 UG/ML (10.0-20.0)
--- NOTE | 2018-06-21 07:56 | PHACANCOPD ---
PHARMACY VANCOMYCIN DOSING Pt Demographics Demographics Patient Age:57 , Weight:129.200 , Gender: male Adjusted Body Weight Events Past 24 Hours Events Past 24 Hours: NO: Dialysis, Diuretic Therapy, Change in CrCl, Fever, Elevation in WBC, Pending Diagnostics, Pending Procedures, Other Vancomycin Vancomycin indication: SSSI/LT FOOT ULCER Vancomycin Target Ranges: 15-20 mcg/ml Vancomycin Load Y/N: Yes Load Dose Date Time Vancomycin Load Dose: 2GM Date: 06/16/18 Time: 21:00 Vancomycin Dose Date: 06/17/18. Current Vancomycin Dose: [1GM IV Q12H (08:00)] Intermittent Dosing?: No Labs Labs Vital Signs Label Value Date Time Patient Temperature 98.0 degrees F 06/21/18 0600 Temperature Source Temporal 06/21/18 0600 Patient Temperature 97.5 degrees F 06/20/18 2200 Temperature Source Temporal 06/20/18 2200 Item Value Date Time White Blood Count 9.6 10^3/uL 06/21/18 0702 White Blood Count 8.4 10^3/uL 06/20/18 0544 White Blood Count 8.7 10^3/uL 06/19/18 0553 Creatinine 1.74 MG/DL H 06/21/18 0702 Creatinine 1.70 MG/DL H 06/20/18 0544 Creatinine 1.79 MG/DL H 06/19/18 0553 Vancomycin Level Trough 17.5 UG/ML 06/21/18 0702 Vancomycin Level Trough 15.1 UG/ML 06/18/18 0649 Micro Microbiology 06/18/18 Gram Stain - Final, Complete 06/18/18 Wound Culture - Final, Complete Corynebacterium Species 06/16/18 Wound Culture - Final, Complete Staph.aureus Methicillin Resis Creatinine Clearance Date:06/16/18. Creatinine Clearance: [>50 ml/min]. Assessment and Plan Maintaining Current Dose?: Yes Reason for dose change: No Dose Change Pharmacist Note Pharmacist Note 06/21/18: Trough this AM resulted at 17.5mcg/ml. This is within our goal of 15-20mcg/ml. We will continue the current dose of Vanco 1G IV Q12H@0800. We will continue to monitor and adjust dose as needed. 06/18/18: Trough this AM resulted at 15.1mcg/ml. This is within our goal so the plan is to continue current dosing of Vanco 1G IV Q12H@0800. We will continue to monitor and adjust dose as needed. Date: 06/16/18. PharmD note: BASED ON PREVIOUS ADMISSION DATE, VANCO 2GM IV LOAD AT 21:00 TONIGHT FOLLOWED BY VANCO 1GM IV Q12H STARTING AT 8AM 06/17/18. A VANCO TROUGH WILL BE DRAWN WHEN AT [facility] Jun 21, 2018 07:56
[2018-06-21] MEDS: DOCUSATE SODIUM 100 MG CAP PO SCH ×2 (09:00→20:20)
[2018-06-21] MEDS: buPROPion **XL** TABLET 150MG (WELLBUTRIN XL) PO SCH (09:01)
[2018-06-21] MEDS: MAGNESIUM OXIDE 400 MG TAB (MAG-OX) PO SCH ×3 (09:01→20:21)
[2018-06-21] MEDS: amLODIPine 5 MG TAB PO SCH ×2 (09:02→20:19)
[2018-06-21] MEDS: VITAMIN D 1,000 INTERNATIONAL UNITS TABLET PO SCH ×2 (09:02→20:21)
[2018-06-21] MEDS: FAMOTIDINE 20 MG TAB PO SCH ×2 (09:02→20:20)
[2018-06-21] MEDS: MULTIVITAMINS/MINERALS THERAP 1 TAB PO SCH (09:03)
[2018-06-21] MEDS: metFORMIN (GLUCOPHAGE) 1000 MG TABLET PO SCH (09:03)
[2018-06-21] MEDS: CARVedilol 12.5 MG TAB PO SCH ×2 (09:03→20:20)
[2018-06-21] MEDS: FUROSEMIDE 20 MG TAB PO SCH (09:03)
[2018-06-21] MEDS: ASPIRIN 81 MG ENTERIC TAB PO SCH (09:04)
[2018-06-21] MEDS: **hydrALAZINE HCL** 25 MG TAB PO SCH ×3 (09:04→20:18)
[2018-06-21] MEDS: ENALAPRIL MALEATE 10 MG TAB PO SCH ×2 (09:04→20:21)
[2018-06-21] MEDS: VANCOMYCIN HCL 1,000 MG, VIAL MATE ADAPTER 1 EACH in D5W 250 ML IV SCH ×2 (09:05→20:19)
[2018-06-21] MEDS: CLOTRIMAZOLE 1% TOPICAL CREAM 30GM TOP SCH ×2 (09:12→20:23)
[2018-06-21] MEDS: LEVEMIR (INSULIN DETEMIR) 1 UNITS/0.01ML SC SCH ×2 (09:12→20:22)
--- NOTE | 2018-06-21 09:12 | IPNPDOC ---
Date Seen The patient was seen on 06/21/18. Progress Note SUBJECTIVE: Pt seen and examined at the bedside. Chart has been reviewed. ID consulted for abx regimen ?IV vs po meds x 4weeks. Pain is tolerable when pt is supine with nonweight bearing left foot s/p debridement 06/18/18. POSITIVE FOR MRSA on contact isolation.no fever or chills. no other issues per RN. Pt is concerned about his 3rd floor apartment without an elevator and his ability to ambulate being nonweight bearing on his left foot. vanco beads implanted after debridement on 06/18/18. wound cx: sensitive to clinda and tetracycline. OBJECTIVE PHYSICAL EXAMINATION: VITAL SIGNS: Please see below. GENERAL: He is awake, alert, oriented times three. He is not in acute distress. HEENT: Atraumatic, Pupils equal, round, and reactive to light. No jaundice. Extraocular muscles intact. Ears, nose, throat normal. Mouth: Mucosa normal. No jugular venous distention (JVD). LUNGS: Clear. No wheezes. No crackles. HEART: S1, S2, regular. No murmur. ABDOMEN: Soft. Bowel sounds positive, nontender. He does have a ventricular hernia in his abdomen. There is no edema in bilateral lower extremities. EXTREMITIES: LEFT FOOT BANDAGED S/P 06/18/18 debridement LABORATORY DATA, IMAGING STUDIES, MICROBIOLOGY: REVIEWED, PLS SEE BELOW PROCEDURES: DATE OF PROCEDURE: 06/18/2018 Left heel ulcer and calcaneal osteomyelitis. PROCEDURE: Left foot irrigation and drainage bone biopsy with implantation of antibiotic beads.SURGEON: Marely Izaguirre DPM There was a spongy necrotic abscess appearing tissue directly inferior to the wound. This was excised and sent for pathology. There was not significant other necrotic or purulent tissue noted. Irregular bone was encountered at the inferior margin of the calcaneus. Portion of this was resected with the rongeur and sent for pathology as well as culture. Further debridement was performed until no obvious necrotic tissue was identified. The site was then irrigated with 3000 liters of pulse irrigation. Following this, some resorbable Osteoset beads impregnated with vancomycin were inserted adjacent to the bone. Partial closure to the proximal portion of the incision was performed with #2-0 Nylon. The remaining portion of the wound was packed using saline soaked gauze. Sterile dressings were applied. Tourniquet was deflated. Patient was brought to postanesthesia care unit with vital signs stable, neurovascular status intact. He will be re-admitted to the floor. He is to remain non-weightbearing. Will plan dressing changes with ultimate plans for wound Vac therapy once drainage lessens and infection is controlled. Will follow.MARELY IZAGUIRRE DPM 06/18/18 1802 ASSESSMENT AND PLAN: The patient is a 57-year-old white male with history of diabetes as well as left foot infection, referred for direct admission from Dr. Izaguirre's office. History is provided by himself. Per the patient, he has infection in his left heel, which was treated with Dr. Izaguirre as well as wound care center. He states he had several debridement surgeries done that lasted 2 years, and it was healed; however, the infection came back recently and is getting worse gradually. He went to see Dr. Izaguirre in the office, and Dr. Izaguirre referred him for direct admission to the hospital today. Chronic Left posterior calcaneal osteomyelitis. admitted to medical/surgical floor. We will continue all his home medications. MRI of his left foot OM: on intravenous s/p (IV) Zosyn on iv vancomycin for MRSA in wound cx. Dr. Izaguirre consulted for debridement and mgt. non-weightbearing. Will plan dressing changes with ultimate plans for wound Vac therapy once drainage lessens and infection is controlled. Pain is tolerable when pt is supine with nonweight bearing left foot s/p debridement 06/18/18. POSITIVE FOR MRSA on contact isolation.no fever or chills. no other issues per RN. Pt is concerned about his 3rd floor apartment without an elevator and his ab ility to ambulate being nonweight bearing on his left foot. vanco beads implanted after debridement on 06/18/18. wound cx: sensitive to clinda and tetracycline. ID consulted. right upper extremity DVT, on chronic warfarin. held for or debridement 06/18/18 Type 2 diabetes with peripheral neuropathy on levemir bid, consistent carbs diet, hypoglycemic protocol, insulin sliding scale with coverage Hypertension. resumed on home meds Dyslipidemia. resumed on home meds Abdominal hernia. 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 chronic obesity complicating care depression/anxiety chronic resumed on home meds Diet: consistent carbs disposition: PFS consulted VS, I&O, 24H, Fishbone Vital Signs/I&O Vital Signs Date Time Temp Pulse Resp B/P (MAP) Pulse Ox O2 Delivery O2 Flow Rate FiO2 06/21/18 06:00 98.0 77 17 150/72 (98) 91 Room Air 06/19/18 05:10 18.0 I&O- Last 24 Hours up to 6 AM 06/21/18 06:00 Intake Total 3150 ml Output Total 1300 ml Balance 1850 ml Laboratory Data 24H LABS Laboratory Tests 2 06/20/18 11:48: Bedside Glucose (Misc Panel) 181H 06/20/18 15:27: Bedside Glucose (Misc Panel) 93 06/20/18 17:20: Bedside Glucose (Misc Panel) 149H 06/20/18 20:49: Bedside Glucose (Misc Panel) 265H 06/21/18 07:02: Nucleated Red Blood Cells % (auto) 0.0, Erythrocyte Sedimentation Rate 2, Anion Gap 7L, Glomerular Filtration Rate 43.3L, Blood Urea Nitrogen 23H, Creatinine 1 .74H, Sodium Level 139, Potassium Level 4.8#, Chloride Level 105, Carbon Dioxide Level 27, Calcium Level 9.3, C-Reactive Protein, Quantitative 0.33H, Vancomycin Level Trough 17.5 CBC/BMP Laboratory Tests 06/21/18 07:02 Red Blood Count 5.66, Mean Corpuscular Volume 80.7, Mean Corpuscular Hemoglobin 25.1 L, Mean Corpuscular Hemoglobin Concent 31.1 L, Red Cell Distribution Width 16.2 H, Calcium Level 9.3 Microbiology Microbiology 06/18/18 Gram Stain - Final, Complete 06/18/18 Wound Culture - Final, Complete Corynebacterium Species 06/16/18 Wound Culture - Final, Complete Staph.aureus Methicillin Resis DIPIKA ESPINOSA MD Jun 21, 2018 09:12
--- NOTE | 2018-06-21 12:14 | IPN ---
DATE OF SERVICE: 06/21/2018 The patient is seen and examined. Denies overnight complaints. He says his pain is controlled. He has been afebrile. Laboratories are reviewed. White blood cell count is 9.6, ESR is 2, C-reactive protein is 0.33. Calcaneal culture grew corynebacterium and the pathology is pending. Lower extremity examination: Wound base is granular without further necrotic tissue. ASSESSMENT: 57-year-old male with chronic left heel osteomyelitis ulcer. PLAN: We will start wound VAC therapy to be applied on Thursday, Thursday and Thursday with white foam to the tunnel. Infectious disease has been consulted. We discussed with patient that he must be completely non-weight bearing to his left heel. Further improvements must be made to his diabetes, as his last A1/c was 13, which he has very little chance of improving his wound. We will follow.
[2018-06-21 14:00] VITALS: BP 170/77
[2018-06-21] MEDS: MORPHINE 4 MG/ML 1ML VIAL/SYRINGE (J2270) IV PRN (15:54)
[2018-06-21] MEDS: ATORVASTATIN 10 MG TAB PO SCH (20:20)
[2018-06-21] MEDS: AMITRIPTYLINE 50 MG TAB PO SCH (20:20)
[2018-06-21 22:00] VITALS: BP 131/73
[2018-06-22] MEDS: PERCOCET 5MG/325MG TAB PO PRN ×4 (04:17→21:06)
[2018-06-22 06:00] VITALS: BP 139/82
[2018-06-22 06:11] LABS: HEMATOCRIT 44.6 % (42.0-52.0); HEMOGLOBIN 13.7 g/dl (13.5-17.5); MEAN CORPUSCULAR HEMOGLOBIN 24.7 pg (27.0-33.0); MEAN CORPUSCULAR HGB CONC 30.7 g/dl (32.0-36.5); MEAN CORPUSCULAR VOLUME 80.5 fl (80.0-96.0); PLATELET COUNT, AUTOMATED 518 10^3/uL (150-450); RED BLOOD COUNT 5.54 10^6/uL (4.30-6.10)
[2018-06-22 06:37] LABS: CALCIUM LEVEL 9.2 MG/DL (8.5-10.1); CREATININE FOR GFR 1.58 MG/DL (0.70-1.30); GLOMERULAR FILTRATION RATE 48.4 (>56); POTASSIUM SERUM 3.9 MEQ/L (3.5-5.1)
[2018-06-22] MEDS: HEPARIN SOD (PORCINE) 5000 UNITS/ML VIAL SC SCH ×3 (06:41→21:05)
[2018-06-22] MEDS: HumaLOG INSULIN (NovoLOG) PER UNIT SC SCH ×4 (09:09→21:09)
[2018-06-22] MEDS: VANCOMYCIN HCL 1,000 MG, VIAL MATE ADAPTER 1 EACH in D5W 250 ML IV SCH ×2 (09:09→21:05)
[2018-06-22] MEDS: VITAMIN D 1,000 INTERNATIONAL UNITS TABLET PO SCH ×2 (09:09→21:08)
[2018-06-22] MEDS: FAMOTIDINE 20 MG TAB PO SCH ×2 (09:10→21:07)
[2018-06-22] MEDS: buPROPion **XL** TABLET 150MG (WELLBUTRIN XL) PO SCH (09:10)
[2018-06-22] MEDS: metFORMIN (GLUCOPHAGE) 1000 MG TABLET PO SCH (09:10)
[2018-06-22] MEDS: DOCUSATE SODIUM 100 MG CAP PO SCH ×2 (09:10→21:06)
[2018-06-22] MEDS: MAGNESIUM OXIDE 400 MG TAB (MAG-OX) PO SCH ×3 (09:10→21:07)
[2018-06-22] MEDS: CARVedilol 12.5 MG TAB PO SCH ×2 (09:10→21:08)
[2018-06-22] MEDS: **hydrALAZINE HCL** 25 MG TAB PO SCH ×3 (09:10→21:08)
[2018-06-22] MEDS: FUROSEMIDE 20 MG TAB PO SCH (09:11)
[2018-06-22] MEDS: ENALAPRIL MALEATE 10 MG TAB PO SCH ×2 (09:11→21:07)
[2018-06-22] MEDS: MULTIVITAMINS/MINERALS THERAP 1 TAB PO SCH (09:11)
[2018-06-22] MEDS: ASPIRIN 81 MG ENTERIC TAB PO SCH (09:11)
[2018-06-22] MEDS: LEVEMIR (INSULIN DETEMIR) 1 UNITS/0.01ML SC SCH ×2 (09:12→21:09)
[2018-06-22] MEDS: amLODIPine 5 MG TAB PO SCH ×2 (09:12→21:06)
[2018-06-22] MEDS: CLOTRIMAZOLE 1% TOPICAL CREAM 30GM TOP SCH ×2 (09:13→21:00)
--- NOTE | 2018-06-22 09:39 | CR ---
DATE OF CONSULTATION: 06/21/2018 I was asked to consult by the hospitalist for evaluation of chronic osteomyelitis of the left foot and heel. HISTORY OF PRESENT ILLNESS: Mr. Herrera is 57-year-old gentleman who is known to me from previous hospitalization in November 2016 after he had stepped on a nail and developed acute osteomyelitis of the calcaneus. Initial cultures with polymicrobial had Staphylococcus epidermidis, Prevotella melaninogenica and anaerobes. The patient was treated with IV antibiotics for 4-6 weeks with slow improvement. He came back in January 2017 with the same left heel wound and the cultures at that time were positive for methicillin-sensitive Staphylococcus aureus (MSSA) and strep viridans along with Prevotella Intermedia. In April of 2017 again the patient was hospitalized and had MSSA, Enterococcus Faecalis and Klebsiella. During all of those admissions, he was treated with IV antibiotics and at times oral antibiotics at home. Since then, he had been doing well. The wound has closed until when he saw Dr. Knapp for recurrence of the wound that opened up. He was treated conservatively with debridement. On June 16 the patient had purulent drainage, swelling and therefore was sent to the emergency room to be evaluated for further debridement and IV antibiotics. He denied having any fever or chills, no nausea, vomiting or diarrhea. No abdominal pain. He is on IV vancomycin and tolerating well. PAST MEDICAL HISTORY: Uncontrolled diabetes. He does not even have a primary care provider. Hypertension. Hyperlipidemia. Abdominal hernia. Chronic degenerative disc disease of the cervical spine. Left heel osteomyelitis of the calcaneus since November of 2016. Morbid obesity. PAST SURGICAL HISTORY: Left foot multiple debridement. Tonsillectomy. Hernia repair. SOCIAL HISTORY: He is not . He lives alone in a third floor apartment, which has been a problem with his mobility. He does not smoke or drink. FAMILY HISTORY: Nonrevealing. MEDICATIONS: - Percocet two tablets by mouth every 4 hours as needed - morphine as needed - aspirin 81 mg by mouth daily - bupropion 150 mg by mouth daily - furosemide 40 mg by mouth daily - Levemir 68 units daily - multivitamin three tablets by mouth daily - vancomycin 1 gram IV every 12 hours - Colace 100 mg by mouth twice a day - insulin sliding scale - amitriptyline 50 mg by mouth at bedtime - amlodipine 5 mg by mouth twice a day - Lipitor 10 mg by mouth at bedtime - Coreg 25 mg by mouth twice a day - clotrimazole to feet twice a day - Vasotec 20 mg by mouth twice a day - famotidine 20 mg by mouth twice a day - hydralazine 75 mg by mouth three times a day - Levemir 60 units subcu at bedtime - mag oxide 800 mg by mouth three times a day - insulin sliding scale - warfarin based on INR ALLERGIES: 1. POVIDONE IODINE. LABORATORIES: White count 9.6, hemoglobin 14.2, hematocrit 45.7, platelets 549. ESR has been ranging between 4 and 12. Sodium 139, potassium 4.8, chloride 105, bicarb 27, BUN 23, creatinine 1.74, glucose 85, calcium 9.3, CRP 0.33, much improved. IMAGING STUDIES: MRI consistent with chronic osteomyelitis of the posterior and plantar surface of the calcaneus with bony erosion similar in size similar to prior study. There is increased inflammation that was compared to MRI done on July 15, 2017. PHYSICAL EXAMINATION: On physical exam, obese gentleman in no acute distress. Temperature is 98.3, pulse 74, blood pressure 131/73, oxygen saturation 94% on room air. Heart normal S1 and S2. No murmurs, rubs or gallops. Lungs are clear. No wheezes, rales or rhonchi. Abdomen obese, soft, nontender. Extremities no edema. Left heel 3 x 2 cm x 2 cm deep with granulation tissue. No purulent discharge. No surrounding cellulitis. Right upper extremity multiple collateral veins. IMPRESSION: Chronic osteomyelitis of the left calcaneus currently with culture positive for Methicillin-resistant Staphylococcus aureus (MRSA) on IV vancomycin, doing well. The patient has a history of noncompliance. He will not be able to do his own home IV antibiotic. He has a history of PICC line induced deep vein thrombosis (DVT) of the right upper extremity. His CRP and sed rate are normal at this point. Will discuss with Dr. Izaguirre whether we could treat him with some long-term antibiotics such as dalbavancin 1500mg which could be given in 10 day intervals through a peripheral IV instead of committing him to a chcf and PICC line insertion. Case will be discussed with Dr. Izaguirre in the morning. [facility] HOSPITALBriana
--- NOTE | 2018-06-22 12:08 | IPN ---
DATE: 06/22/2018 [facility] I am rounding for the hospitalist. No change in status today. Denies fever or chills. Reviewed recent notes particularly from Dr. Ivory. He is having wound VAC therapy applied Thursday, Thursday and Thursday. Antibiotic selection is being deferred to infectious disease. This is a complicated situation as outlined in yesterday's note. PHYSICAL EXAMINATION: Afebrile. Vital signs stable. Lungs clear. Heart: Regular rhythm. Abdomen soft, nontender. Left foot is dressed. PLAN: Await input from podiatry and infectious disease. Peripherally inserted central catheter (PICC) line is problematic. Might benefit from intermittent dosing with dalbavancin.
[2018-06-22 14:00] VITALS: BP 146/83
[2018-06-22] MEDS: MORPHINE 4 MG/ML 1ML VIAL/SYRINGE (J2270) IV PRN ×2 (16:54→23:06)
[2018-06-22] MEDS: ATORVASTATIN 10 MG TAB PO SCH (21:06)
[2018-06-22] MEDS: AMITRIPTYLINE 50 MG TAB PO SCH (21:06)
[2018-06-22 22:00] VITALS: BP 132/73
[2018-06-23] MEDS: HEPARIN SOD (PORCINE) 5000 UNITS/ML VIAL SC SCH ×3 (05:40→22:00)
[2018-06-23 06:00] VITALS: BP 133/67
[2018-06-23 06:24] LABS: HEMATOCRIT 45.3 % (42.0-52.0); HEMOGLOBIN 13.7 g/dl (13.5-17.5); MEAN CORPUSCULAR HEMOGLOBIN 24.5 pg (27.0-33.0); MEAN CORPUSCULAR HGB CONC 30.2 g/dl (32.0-36.5); PLATELET COUNT, AUTOMATED 502 10^3/uL (150-450); RED BLOOD COUNT 5.59 10^6/uL (4.30-6.10); WHITE BLOOD COUNT 8.1 10^3/uL (4.0-10.0)
[2018-06-23 06:34] LABS: CALCIUM LEVEL 8.9 MG/DL (8.5-10.1); CREATININE FOR GFR 1.52 MG/DL (0.70-1.30); GLOMERULAR FILTRATION RATE 50.6 (>56)
--- NOTE | 2018-06-23 07:32 | IPN ---
DATE: 06/22/2018 Mr. Herrera is seen in his wheelchair outside and visiting another patient. He has no complaints of fever or chills. No nausea, vomiting or diarrhea. LABORATORY DATA: White count is 8, hemoglobin 13.7, hematocrit 44.6, platelets 518. ESR 2. Sodium 140, potassium 3.9, chloride 106, bicarb 28, BUN 22, creatinine 1.58, glucose 229, calcium 9.2, CRP 0.33. Wound culture was positive for Staphylococcus aureus (MRSA) from the left heel. Pathology had small focus of the calcaneus bone that had some acute on chronic inflammatory cells. May represent a focal area of mild acute osteomyelitis. I have discussed the case with Dr. Izaguirre who felt that the abscess was subcutaneous and not within the bone. He debrided subcutaneous abscess which cultured for MRSA. The bone biopsy could have been positive from chronic debridement and incision and drainage done by Dr. Knapp who sees him on a regular basis. MRI findings were unchanged compared to MRI done in June 2017 and that could be from his chronic osteomyelitis from last year. At this point with the fact that his inflammatory markers are not elevated, I am not convinced that this infection was some worsening chronic osteomyelitis but more likely from the acute MRSA abscess subcutaneously as his previous episodes of osteo were polymicrobial jean with methicillin sensitive Staphylococcus aureus (MSSA). IMPRESSION: 1. Cellulitis of the left heel with subcutaneous abscess on IV vancomycin doing well. 2. History of chronic osteomyelitis of the left calcaneus: Stable with normal CRP and sed rate. Doing well with IV vancomycin. PLAN: Continue with IV vancomycin for the time being. I would not recommend a peripherally inserted central catheter (PICC) line on this patient. He has a history of deep venous thromboses (DVTs) in the right arm previously. I would recommend probably IV dominance as an outpatient for two infusions to dose of 1500 mg every 10 days that should cover the cellulitis and the abscess and if there is a persistent focus of acute osteomyelitis, then this could be done as an outpatient. Continue with wound VAC. The patient's case has been discussed with Dr. Izaguirre who agrees with the plan.
[2018-06-23 08:50] VITALS: BP 173/83
[2018-06-23] MEDS: PERCOCET 5MG/325MG TAB PO PRN ×4 (09:13→22:38)
[2018-06-23] MEDS: HumaLOG INSULIN (NovoLOG) PER UNIT SC SCH ×4 (10:10→22:02)
[2018-06-23] MEDS: LEVEMIR (INSULIN DETEMIR) 1 UNITS/0.01ML SC SCH ×2 (10:11→21:00)
[2018-06-23] MEDS: MAGNESIUM OXIDE 400 MG TAB (MAG-OX) PO SCH ×3 (10:12→21:57)
[2018-06-23] MEDS: ENALAPRIL MALEATE 10 MG TAB PO SCH ×2 (10:12→22:01)
[2018-06-23] MEDS: **hydrALAZINE HCL** 25 MG TAB PO SCH ×3 (10:13→21:59)
[2018-06-23] MEDS: VITAMIN D 1,000 INTERNATIONAL UNITS TABLET PO SCH ×2 (10:13→21:57)
[2018-06-23] MEDS: MULTIVITAMINS/MINERALS THERAP 1 TAB PO SCH (10:13)
[2018-06-23] MEDS: metFORMIN (GLUCOPHAGE) 1000 MG TABLET PO SCH (10:14)
[2018-06-23] MEDS: DOCUSATE SODIUM 100 MG CAP PO SCH ×2 (10:14→21:59)
[2018-06-23] MEDS: CARVedilol 12.5 MG TAB PO SCH ×2 (10:14→21:58)
[2018-06-23] MEDS: FUROSEMIDE 20 MG TAB PO SCH (10:14)
[2018-06-23] MEDS: buPROPion **XL** TABLET 150MG (WELLBUTRIN XL) PO SCH (10:14)
[2018-06-23] MEDS: FAMOTIDINE 20 MG TAB PO SCH ×2 (10:15→22:00)
[2018-06-23] MEDS: amLODIPine 5 MG TAB PO SCH ×2 (10:15→21:59)
[2018-06-23] MEDS: ASPIRIN 81 MG ENTERIC TAB PO SCH (10:15)
[2018-06-23] MEDS: CLOTRIMAZOLE 1% TOPICAL CREAM 30GM TOP SCH ×2 (10:15→21:00)
[2018-06-23] MEDS: VANCOMYCIN HCL 1,000 MG, VIAL MATE ADAPTER 1 EACH in D5W 250 ML IV SCH ×2 (10:15→21:57)
--- NOTE | 2018-06-23 12:56 | IPN ---
DATE: 06/23/2018 Jovanny's status is unchanged from yesterday. PHYSICAL EXAMINATION: VITAL SIGNS: Stable, afebrile. GENERAL APPEARANCE: Resting comfortably. No change in his examination. PLAN: Per Dr. Ivory's note. Consideration being given for Dalvance every 10 days as an outpatient. Wound VAC per Dr. Izaguirre.
--- NOTE | 2018-06-23 13:03 | IPN ---
DATE: 06/23/2018 Patient is seen and examined, denies overnight complaints. States his pain is controlled. Labs are reviewed. White cell count is 8.1, hemoglobin 13.7. Lower extremity examination: Dressings are intact. Improvement in erythema is noted. ASSESSMENT: 57-year-old male with chronic calcaneal osteomyelitis status post incision and drainage and bone biopsy. PLAN: Infectious disease has been consulted. Antibiotics per their recommendations. Will initiate wound VAC therapy. There apparently was none available in the last two days, but has now arrived and will be applied today. He is again counseled to be non weightbearing and can resume his Coumadin today.
[2018-06-23 14:00] VITALS: BP 121/58
[2018-06-23] MEDS: WARFARIN SOD 5 MG TAB PO SCH (17:05)
[2018-06-23] MEDS: MORPHINE 4 MG/ML 1ML VIAL/SYRINGE (J2270) IV PRN (17:13)
[2018-06-23] MEDS: AMITRIPTYLINE 50 MG TAB PO SCH (21:59)
[2018-06-23 22:00] VITALS: BP 130/69
[2018-06-23] MEDS: ATORVASTATIN 10 MG TAB PO SCH (22:00)
[2018-06-24 06:00] VITALS: BP 125/70
[2018-06-24 06:41] LABS: HEMATOCRIT 46.1 % (42.0-52.0); HEMOGLOBIN 13.9 g/dl (13.5-17.5); MEAN CORPUSCULAR HEMOGLOBIN 24.9 pg (27.0-33.0); MEAN CORPUSCULAR HGB CONC 30.2 g/dl (32.0-36.5); MEAN CORPUSCULAR VOLUME 82.6 fl (80.0-96.0); PLATELET COUNT, AUTOMATED 558 10^3/uL (150-450); RED BLOOD COUNT 5.58 10^6/uL (4.30-6.10); WHITE BLOOD COUNT 8.7 10^3/uL (4.0-10.0)
[2018-06-24] MEDS: HEPARIN SOD (PORCINE) 5000 UNITS/ML VIAL SC SCH ×3 (06:41→21:19)
[2018-06-24] MEDS: PERCOCET 5MG/325MG TAB PO PRN ×4 (06:42→21:19)
[2018-06-24 07:09] LABS: CALCIUM LEVEL 8.7 MG/DL (8.5-10.1); CREATININE FOR GFR 1.52 MG/DL (0.70-1.30); GLOMERULAR FILTRATION RATE 50.6 (>56); POTASSIUM SERUM 3.8 MEQ/L (3.5-5.1)
[2018-06-24] MEDS: VANCOMYCIN HCL 1,000 MG, VIAL MATE ADAPTER 1 EACH in D5W 250 ML IV SCH ×2 (08:36→19:33)
[2018-06-24] MEDS: FAMOTIDINE 20 MG TAB PO SCH ×2 (08:36→20:22)
[2018-06-24] MEDS: MULTIVITAMINS/MINERALS THERAP 1 TAB PO SCH (08:36)
[2018-06-24] MEDS: DOCUSATE SODIUM 100 MG CAP PO SCH ×2 (08:37→20:20)
[2018-06-24] MEDS: VITAMIN D 1,000 INTERNATIONAL UNITS TABLET PO SCH ×2 (08:37→20:20)
[2018-06-24] MEDS: **hydrALAZINE HCL** 25 MG TAB PO SCH ×3 (08:37→20:20)
[2018-06-24] MEDS: amLODIPine 5 MG TAB PO SCH ×2 (08:38→20:22)
[2018-06-24] MEDS: CARVedilol 12.5 MG TAB PO SCH ×2 (08:38→20:21)
[2018-06-24] MEDS: metFORMIN (GLUCOPHAGE) 1000 MG TABLET PO SCH (08:38)
[2018-06-24] MEDS: MAGNESIUM OXIDE 400 MG TAB (MAG-OX) PO SCH ×3 (08:38→20:22)
[2018-06-24] MEDS: FUROSEMIDE 20 MG TAB PO SCH (08:38)
[2018-06-24] MEDS: LEVEMIR (INSULIN DETEMIR) 1 UNITS/0.01ML SC SCH ×2 (08:39→20:19)
[2018-06-24] MEDS: ENALAPRIL MALEATE 10 MG TAB PO SCH ×2 (08:39→20:21)
[2018-06-24] MEDS: buPROPion **XL** TABLET 150MG (WELLBUTRIN XL) PO SCH (08:39)
[2018-06-24] MEDS: ASPIRIN 81 MG ENTERIC TAB PO SCH (08:39)
[2018-06-24] MEDS: CLOTRIMAZOLE 1% TOPICAL CREAM 30GM TOP SCH ×2 (08:40→20:23)
[2018-06-24] MEDS: HumaLOG INSULIN (NovoLOG) PER UNIT SC SCH ×4 (08:40→21:20)
[2018-06-24] MEDS: MORPHINE 4 MG/ML 1ML VIAL/SYRINGE (J2270) IV PRN (08:49)
--- NOTE | 2018-06-24 11:05 | IPN ---
DATE: 06/24/2018 No change in Jovanny's status. He remains afebrile. He was seen yesterday by Dr. Izaguirre. He had a wound Vac applied yesterday. His warfarin was restarted and daily INRs have been ordered. Infectious disease plans to start him on Dalvance as an outpatient. This will have to be arranged before discharge also. CBC and BMP unremarkable today. INR pending for tomorrow.
[2018-06-24 14:00] VITALS: BP 138/74
[2018-06-24] MEDS: WARFARIN SOD 5 MG TAB PO SCH (16:35)
[2018-06-24] MEDS: AMITRIPTYLINE 50 MG TAB PO SCH (20:21)
[2018-06-24] MEDS: ATORVASTATIN 10 MG TAB PO SCH (21:20)
--- NOTE | 2018-06-24 21:57 | IPN ---
DATE: 06/24/2018 Jovanny is doing well. He denies any complaint. No nausea, vomiting, or diarrhea. No abdominal pain, fever or chills. He has his wound vac that is being changed Thursday, Thursday, Thursday. I have discussed the case with Hilary, charge nurse on the floor. He would not be able to go home with a wound vac as he will not be accepted by any outside agencies including [facility] and [facility] due to previous history of compliance issue and inappropriate behavior. He has no fever or chills. Tolerating IV vancomycin. He is currently on 1 gram every 12 hours. He is day #9. LABORATORY DATA Sodium 141, potassium 3.8, chloride 108, bicarb 27, BUN 23, creatinine 1.52, glucose 171. Last CRP done on 06/21 was 0.33. White count is 8.7, hemoglobin 13.9, hematocrit 46.1, platelets 558. IMPRESSION 1. Left heel MRSA abscess with cellulitis. Doing much better on IV vancomycin. 2. History of chronic osteomyelitis of the calcaneus. Per Dr. Izaguirre findings intraoperatively were minimal in the bone and MRI finding compared to previous study done July 15, 2017 which is 11 months prior, there was no change in the bone findings but only inflammatory changes of soft tissue. I suspect that the chronic osteomyelitis is residual finding from the previous infection and not active at this time. PLAN The patient from my standpoint with a normal CRP and sed rate will not need long-term IV antibiotic, but probably wound vac. I will try to obtain IV Dalvance for him as an outpatient. He will not need a PICC line if the patient could be discharged home without a wound vac or dressing changes from an infectious disease standpoint. He will get one or two doses of Dalvance at most as an outpatient. MTDD
[2018-06-24 22:00] VITALS: BP 148/80
[2018-06-25] MEDS: PERCOCET 5MG/325MG TAB PO PRN ×6 (01:15→23:04)
[2018-06-25] MEDS: HEPARIN SOD (PORCINE) 5000 UNITS/ML VIAL SC SCH ×3 (05:13→21:30)
[2018-06-25 06:00] VITALS: BP 140/67
[2018-06-25 06:47] LABS: HEMATOCRIT 43.2 % (42.0-52.0); HEMOGLOBIN 13.2 g/dl (13.5-17.5); MEAN CORPUSCULAR HEMOGLOBIN 24.9 pg (27.0-33.0); MEAN CORPUSCULAR HGB CONC 30.6 g/dl (32.0-36.5); MEAN CORPUSCULAR VOLUME 81.5 fl (80.0-96.0); PLATELET COUNT, AUTOMATED 526 10^3/uL (150-450); WHITE BLOOD COUNT 8.5 10^3/uL (4.0-10.0)
[2018-06-25 07:03] LABS: INR 1.06; PROTHROMBIN TIME 13.9 SECONDS (12.1-14.4)
[2018-06-25 07:23] LABS: CALCIUM LEVEL 8.8 MG/DL (8.5-10.1); CREATININE FOR GFR 1.48 MG/DL (0.70-1.30); GLOMERULAR FILTRATION RATE 52.2 (>56); POTASSIUM SERUM 3.9 MEQ/L (3.5-5.1)
[2018-06-25] MEDS: **hydrALAZINE HCL** 25 MG TAB PO SCH ×3 (08:10→21:33)
[2018-06-25] MEDS: buPROPion **XL** TABLET 150MG (WELLBUTRIN XL) PO SCH (08:10)
[2018-06-25] MEDS: CARVedilol 12.5 MG TAB PO SCH ×2 (08:10→21:32)
[2018-06-25] MEDS: amLODIPine 5 MG TAB PO SCH ×2 (08:10→21:34)
[2018-06-25] MEDS: metFORMIN (GLUCOPHAGE) 1000 MG TABLET PO SCH (08:10)
[2018-06-25] MEDS: FAMOTIDINE 20 MG TAB PO SCH ×2 (08:10→21:33)
[2018-06-25] MEDS: MAGNESIUM OXIDE 400 MG TAB (MAG-OX) PO SCH ×3 (08:11→21:32)
[2018-06-25] MEDS: ENALAPRIL MALEATE 10 MG TAB PO SCH ×2 (08:11→21:30)
[2018-06-25] MEDS: ASPIRIN 81 MG ENTERIC TAB PO SCH (08:11)
[2018-06-25] MEDS: FUROSEMIDE 20 MG TAB PO SCH (08:11)
[2018-06-25] MEDS: VITAMIN D 1,000 INTERNATIONAL UNITS TABLET PO SCH ×2 (08:11→21:31)
[2018-06-25] MEDS: HumaLOG INSULIN (NovoLOG) PER UNIT SC SCH ×4 (08:12→21:00)
[2018-06-25] MEDS: MULTIVITAMINS/MINERALS THERAP 1 TAB PO SCH (08:12)
[2018-06-25] MEDS: LEVEMIR (INSULIN DETEMIR) 1 UNITS/0.01ML SC SCH ×2 (08:12→21:31)
[2018-06-25] MEDS: CLOTRIMAZOLE 1% TOPICAL CREAM 30GM TOP SCH ×2 (08:13→21:00)
[2018-06-25] MEDS: VANCOMYCIN HCL 1,000 MG, VIAL MATE ADAPTER 1 EACH in D5W 250 ML IV SCH (08:13)
[2018-06-25] MEDS: DOCUSATE SODIUM 100 MG CAP PO SCH ×2 (09:00→21:00)
--- NOTE | 2018-06-25 11:20 | IPN ---
DATE: 06/25/2018 No change in Jovanny's status. Per care rounds today, we are awaiting for input from infectious disease. He is going to need placement. EXAMINATION: Afebrile. Vital signs stable. Lungs clear. Heart regular rhythm. Abdomen soft and nontender. I did not examine his wound. LABS: CBC is unchanged. BMP is unremarkable. Blood sugars are between 80 and 200. PLAN: Reviewing the note from infectious disease yesterday, they feel that he has minimal bone involvement. The methicillin-resistant Staphylococcus aureus (MRSA) that cultured out was probably from overlying small abscess and does not indicate MRSA osteomyelitis. She is working on IV Dalvance.
[2018-06-25 14:00] VITALS: BP 126/72
--- NOTE | 2018-06-25 15:31 | IPN ---
DATE: 06/25/2018 Mr. Herrera has no new complaints. The patient had his wound vacuum-assisted closure (VAC) changed today by myself. He complains of some pain in the foot, some diarrhea. No fever or chills. In the intake and output there is not even been documented bowel movement. LABORATORY DATA: White count is 8.5, hemoglobin 13.2, hematocrit 43.2, platelets 526. ESR 2. Sodium 141, potassium 3.9, chloride 107, bicarb 27, BUN 20, creatinine 1.48, glucose 201, calcium 8.8. Temperature is 97.2, pulse 72, respirations 18, blood pressure 140/67, O2 sat 94% on room air. Heart normal S1-S2 with no murmurs, rubs or gallops. Lungs are clear. No wheezes or rhonchi. Abdomen obese. Extremities - he has an open wound measuring about 3 x 2 cm, 2 cm deep down to the bone with granulation tissue. There is and open incision along the heel to the Achilles tendon with sutures in place. There is bloody drainage over the wound. Minimal tenderness to touch. No purulence. IMPRESSION: 1. Left lower extremity cellulitis with methicillin-resistant Staphylococcus aureus (MRSA) abscess doing much better, currently on IV vancomycin. The patient has been on antibiotics day #10 of IV vancomycin. Since sed rate and CRP are normal he will be switched to oral doxycycline. 2. Chronic osteomyelitis of the left calcaneus per Dr. Izaguirre and according to MRI there has been no change in MRI findings from June of 2017 to May 2018 which makes it very unlikely that this is a chronic osteomyelitis that has remained dormant all this time, I think that MRI picture is lagging behind the clinical improvement. The patient stated that the wound had been closed for at least 10 months before he presented to this admission. The pathogens are different from previous osteomyelitis and therefore at this is a new infection. PLAN: Discontinue IV vancomycin, switch to by mouth doxycycline 100 mg by mouth twice a day. Continue wound vacuum-assisted closure (VAC) until Dr. Izaguirre decides he does not need it. From an infectious disease standpoint he could be discharged home. The patient to followup in my office in 2 weeks.
[2018-06-25] MEDS: WARFARIN SOD 5 MG TAB PO SCH (17:51)
[2018-06-25] MEDS: DOXYCYCLINE HYCLATE 100 MG TAB PO SCH (21:33)
[2018-06-25] MEDS: AMITRIPTYLINE 50 MG TAB PO SCH (21:33)
[2018-06-25] MEDS: ATORVASTATIN 10 MG TAB PO SCH (21:34)
[2018-06-26 06:00] VITALS: BP 162/80
[2018-06-26] MEDS: HEPARIN SOD (PORCINE) 5000 UNITS/ML VIAL SC SCH ×3 (06:08→20:45)
[2018-06-26] MEDS: PERCOCET 5MG/325MG TAB PO PRN ×6 (06:09→23:51)
[2018-06-26 06:23] LABS: HEMATOCRIT 44.2 % (42.0-52.0); HEMOGLOBIN 13.5 g/dl (13.5-17.5); MEAN CORPUSCULAR HEMOGLOBIN 25.2 pg (27.0-33.0); MEAN CORPUSCULAR HGB CONC 30.5 g/dl (32.0-36.5); MEAN CORPUSCULAR VOLUME 82.6 fl (80.0-96.0); PLATELET COUNT, AUTOMATED 521 10^3/uL (150-450); RED BLOOD COUNT 5.35 10^6/uL (4.30-6.10); WHITE BLOOD COUNT 8.1 10^3/uL (4.0-10.0)
[2018-06-26 06:36] LABS: INR 1.06; PROTHROMBIN TIME 13.9 SECONDS (12.1-14.4)
[2018-06-26 06:48] LABS: CALCIUM LEVEL 9.2 MG/DL (8.5-10.1); CREATININE FOR GFR 1.48 MG/DL (0.70-1.30); GLOMERULAR FILTRATION RATE 52.2 (>56); POTASSIUM SERUM 3.9 MEQ/L (3.5-5.1)
[2018-06-26] MEDS: DOCUSATE SODIUM 100 MG CAP PO SCH ×3 (09:00→20:47)
[2018-06-26] MEDS: FAMOTIDINE 20 MG TAB PO SCH ×2 (10:00→20:50)
[2018-06-26] MEDS: metFORMIN (GLUCOPHAGE) 1000 MG TABLET PO SCH (10:00)
[2018-06-26] MEDS: VITAMIN D 1,000 INTERNATIONAL UNITS TABLET PO SCH ×2 (10:00→20:48)
[2018-06-26] MEDS: ASPIRIN 81 MG ENTERIC TAB PO SCH (10:00)
[2018-06-26] MEDS: amLODIPine 5 MG TAB PO SCH ×2 (10:01→20:50)
[2018-06-26] MEDS: FUROSEMIDE 20 MG TAB PO SCH (10:01)
[2018-06-26] MEDS: MAGNESIUM OXIDE 400 MG TAB (MAG-OX) PO SCH ×3 (10:01→20:50)
[2018-06-26] MEDS: buPROPion **XL** TABLET 150MG (WELLBUTRIN XL) PO SCH (10:02)
[2018-06-26] MEDS: MULTIVITAMINS/MINERALS THERAP 1 TAB PO SCH (10:02)
[2018-06-26] MEDS: ENALAPRIL MALEATE 10 MG TAB PO SCH ×2 (10:02→20:49)
[2018-06-26] MEDS: DOXYCYCLINE HYCLATE 100 MG TAB PO SCH ×2 (10:02→20:50)
[2018-06-26] MEDS: CARVedilol 12.5 MG TAB PO SCH ×2 (10:02→20:49)
[2018-06-26] MEDS: **hydrALAZINE HCL** 25 MG TAB PO SCH ×3 (10:03→20:47)
[2018-06-26] MEDS: HumaLOG INSULIN (NovoLOG) PER UNIT SC SCH ×4 (10:04→20:47)
[2018-06-26] MEDS: LEVEMIR (INSULIN DETEMIR) 1 UNITS/0.01ML SC SCH ×2 (10:04→20:45)
[2018-06-26] MEDS: CLOTRIMAZOLE 1% TOPICAL CREAM 30GM TOP SCH ×2 (10:05→20:51)
--- NOTE | 2018-06-26 11:56 | IPN ---
DATE OF SERVICE: 06/26/2018 Jovanny has had no clinical change since yesterday. He was seen by infectious disease yesterday. Recommended switching him to oral doxycycline. Recommends wound vacuum-assisted closure (VAC) until Dr. Izaguirre decides he no longer needs it. At this point, he could be discharged. he is going to be a placement issue. The patient was restarted on his warfarin on 06/23/2018. After three doses, his international normalized ratio (INR) is unchanged. I am, therefore, increasing the dose of his warfarin to 7.5 mg daily. He has daily INRs ordered for now.
[2018-06-26] MEDS: WARFARIN SOD 7.5 MG TAB PO SCH (16:04)
[2018-06-26] MEDS: ATORVASTATIN 10 MG TAB PO SCH (20:50)
[2018-06-26] MEDS: AMITRIPTYLINE 50 MG TAB PO SCH (20:51)
[2018-06-26 22:00] VITALS: BP 166/72
[2018-06-27 06:00] VITALS: BP 167/70
[2018-06-27] MEDS: HEPARIN SOD (PORCINE) 5000 UNITS/ML VIAL SC SCH ×3 (06:06→21:37)
[2018-06-27] MEDS: PERCOCET 5MG/325MG TAB PO PRN ×4 (06:07→21:42)
[2018-06-27 06:24] LABS: INR 1.1; PROTHROMBIN TIME 14.3 SECONDS (12.1-14.4)
[2018-06-27] MEDS: HumaLOG INSULIN (NovoLOG) PER UNIT SC SCH ×4 (08:21→21:00)
[2018-06-27] MEDS: MAGNESIUM OXIDE 400 MG TAB (MAG-OX) PO SCH ×3 (08:21→21:40)
[2018-06-27] MEDS: LEVEMIR (INSULIN DETEMIR) 1 UNITS/0.01ML SC SCH ×2 (08:21→21:44)
[2018-06-27] MEDS: FAMOTIDINE 20 MG TAB PO SCH ×2 (08:22→21:43)
[2018-06-27] MEDS: DOXYCYCLINE HYCLATE 100 MG TAB PO SCH ×2 (08:22→21:44)
[2018-06-27] MEDS: ENALAPRIL MALEATE 10 MG TAB PO SCH ×2 (08:22→21:41)
[2018-06-27] MEDS: MULTIVITAMINS/MINERALS THERAP 1 TAB PO SCH (08:22)
[2018-06-27] MEDS: FUROSEMIDE 20 MG TAB PO SCH (08:22)
[2018-06-27] MEDS: buPROPion **XL** TABLET 150MG (WELLBUTRIN XL) PO SCH (08:22)
[2018-06-27] MEDS: metFORMIN (GLUCOPHAGE) 1000 MG TABLET PO SCH (08:22)
[2018-06-27] MEDS: ASPIRIN 81 MG ENTERIC TAB PO SCH (08:22)
[2018-06-27] MEDS: VITAMIN D 1,000 INTERNATIONAL UNITS TABLET PO SCH ×2 (08:23→21:40)
[2018-06-27] MEDS: amLODIPine 5 MG TAB PO SCH ×2 (08:23→21:43)
[2018-06-27] MEDS: **hydrALAZINE HCL** 25 MG TAB PO SCH ×3 (08:23→21:40)
[2018-06-27] MEDS: DOCUSATE SODIUM 100 MG CAP PO SCH ×2 (08:24→21:00)
[2018-06-27] MEDS: CLOTRIMAZOLE 1% TOPICAL CREAM 30GM TOP SCH ×2 (08:24→21:37)
[2018-06-27] MEDS: CARVedilol 12.5 MG TAB PO SCH ×2 (08:24→21:39)
[2018-06-27] MEDS: WARFARIN SOD 7.5 MG TAB PO SCH (17:24)
[2018-06-27] MEDS: ATORVASTATIN 10 MG TAB PO SCH (21:43)
[2018-06-27] MEDS: AMITRIPTYLINE 50 MG TAB PO SCH (21:43)
[2018-06-28] MEDS: HEPARIN SOD (PORCINE) 5000 UNITS/ML VIAL SC SCH ×3 (05:01→22:09)
[2018-06-28] MEDS: PERCOCET 5MG/325MG TAB PO PRN ×5 (05:02→22:59)
[2018-06-28 06:00] VITALS: BP 135/63
[2018-06-28 07:11] LABS: INR 1.07
[2018-06-28] MEDS: buPROPion **XL** TABLET 150MG (WELLBUTRIN XL) PO SCH (08:35)
[2018-06-28] MEDS: HumaLOG INSULIN (NovoLOG) PER UNIT SC SCH ×4 (08:35→22:16)
[2018-06-28] MEDS: ASPIRIN 81 MG ENTERIC TAB PO SCH (08:35)
[2018-06-28] MEDS: LEVEMIR (INSULIN DETEMIR) 1 UNITS/0.01ML SC SCH ×2 (08:35→22:10)
[2018-06-28] MEDS: MAGNESIUM OXIDE 400 MG TAB (MAG-OX) PO SCH ×3 (08:36→22:14)
[2018-06-28] MEDS: MULTIVITAMINS/MINERALS THERAP 1 TAB PO SCH (08:36)
[2018-06-28] MEDS: CARVedilol 12.5 MG TAB PO SCH ×2 (08:36→22:14)
[2018-06-28] MEDS: VITAMIN D 1,000 INTERNATIONAL UNITS TABLET PO SCH ×2 (08:36→22:16)
[2018-06-28] MEDS: FAMOTIDINE 20 MG TAB PO SCH ×2 (08:37→22:15)
[2018-06-28] MEDS: ENALAPRIL MALEATE 10 MG TAB PO SCH ×2 (08:37→22:14)
[2018-06-28] MEDS: DOCUSATE SODIUM 100 MG CAP PO SCH ×2 (08:37→22:16)
[2018-06-28] MEDS: **hydrALAZINE HCL** 25 MG TAB PO SCH ×3 (08:37→22:15)
[2018-06-28] MEDS: metFORMIN (GLUCOPHAGE) 1000 MG TABLET PO SCH (08:38)
[2018-06-28] MEDS: DOXYCYCLINE HYCLATE 100 MG TAB PO SCH ×2 (08:38→22:15)
[2018-06-28] MEDS: FUROSEMIDE 20 MG TAB PO SCH (08:38)
[2018-06-28] MEDS: amLODIPine 5 MG TAB PO SCH ×2 (08:38→22:15)
[2018-06-28] MEDS: CLOTRIMAZOLE 1% TOPICAL CREAM 30GM TOP SCH ×2 (08:39→22:10)
[2018-06-28] MEDS: MORPHINE 4 MG/ML 1ML VIAL/SYRINGE (J2270) IV PRN ×2 (13:03→22:09)
--- NOTE | 2018-06-28 15:25 | IPN ---
DATE OF SERVICE: 06/28/2018 The patient is seen and examined at bedside. Denies new complaints. States some soreness in his foot. Otherwise, no issues. VITAL SIGNS: Reviewed. He has remained afebrile. LABORATORIES: Reviewed. White blood cell count is 8.1, creatinine 1.48. Lower extremity examination: There is some further granulation tissue within the wound margins. There still is a sinus that is probing deep. Some antibiotic beads are noticed in the wound. ASSESSMENT: 57-year-old male with chronica calcaneal osteomyelitis, status post incision and drainage with implantation of antibiotic beads. PLAN: Continue wound VAC therapy, ensuring that the white foam is placed deep into the sinus. We will continue wound VAC for the time being until the patient is ready for discharge. At this time, his INR is not therapeutic. Historically, the patient has taken some time to reach normal levels of INR. He has remained strictly non-weightbearing of the left foot. The patient apparently will not be able to be discharged with the wound VAC to any facility, so we will plan on utilizing this tool, and then likely discharging him to see Dr. Knapp for further wound care, as he had been previously following up with him prior to this admission.
[2018-06-28] MEDS: WARFARIN SOD 7.5 MG TAB PO SCH (17:33)
[2018-06-28] MEDS: AMITRIPTYLINE 50 MG TAB PO SCH (22:15)
[2018-06-28] MEDS: ATORVASTATIN 10 MG TAB PO SCH (22:15)
[2018-06-29] MEDS: PERCOCET 5MG/325MG TAB PO PRN ×6 (03:03→21:02)
[2018-06-29 06:00] VITALS: BP 135/64
[2018-06-29] MEDS: HEPARIN SOD (PORCINE) 5000 UNITS/ML VIAL SC SCH ×3 (06:01→21:07)
[2018-06-29 06:42] LABS: HEMATOCRIT 45.8 % (42.0-52.0); HEMOGLOBIN 13.8 g/dl (13.5-17.5); MEAN CORPUSCULAR HGB CONC 30.1 g/dl (32.0-36.5); PLATELET COUNT, AUTOMATED 575 10^3/uL (150-450); RED BLOOD COUNT 5.52 10^6/uL (4.30-6.10); WHITE BLOOD COUNT 8.6 10^3/uL (4.0-10.0)
[2018-06-29 06:55] LABS: INR 1.01; PROTHROMBIN TIME 13.4 SECONDS (12.1-14.4)
[2018-06-29 07:03] LABS: CALCIUM LEVEL 9.2 MG/DL (8.5-10.1); CREATININE FOR GFR 1.59 MG/DL (0.70-1.30); POTASSIUM SERUM 4.2 MEQ/L (3.5-5.1)
[2018-06-29] MEDS: HumaLOG INSULIN (NovoLOG) PER UNIT SC SCH ×4 (08:21→21:08)
[2018-06-29] MEDS: LEVEMIR (INSULIN DETEMIR) 1 UNITS/0.01ML SC SCH ×2 (08:22→21:08)
[2018-06-29] MEDS: DOCUSATE SODIUM 100 MG CAP PO SCH ×2 (08:23→21:08)
[2018-06-29] MEDS: VITAMIN D 1,000 INTERNATIONAL UNITS TABLET PO SCH ×2 (08:24→21:03)
[2018-06-29] MEDS: **hydrALAZINE HCL** 25 MG TAB PO SCH ×3 (08:24→21:07)
[2018-06-29] MEDS: MAGNESIUM OXIDE 400 MG TAB (MAG-OX) PO SCH ×3 (08:25→21:02)
[2018-06-29] MEDS: ENALAPRIL MALEATE 10 MG TAB PO SCH ×2 (08:25→21:06)
[2018-06-29] MEDS: DOXYCYCLINE HYCLATE 100 MG TAB PO SCH ×2 (08:26→21:07)
[2018-06-29] MEDS: FUROSEMIDE 20 MG TAB PO SCH (08:26)
[2018-06-29] MEDS: metFORMIN (GLUCOPHAGE) 1000 MG TABLET PO SCH (08:27)
[2018-06-29] MEDS: MULTIVITAMINS/MINERALS THERAP 1 TAB PO SCH (08:27)
[2018-06-29] MEDS: ASPIRIN 81 MG ENTERIC TAB PO SCH (08:27)
[2018-06-29] MEDS: CARVedilol 12.5 MG TAB PO SCH ×2 (08:27→21:06)
[2018-06-29] MEDS: amLODIPine 5 MG TAB PO SCH ×2 (08:28→21:07)
[2018-06-29] MEDS: buPROPion **XL** TABLET 150MG (WELLBUTRIN XL) PO SCH (08:28)
[2018-06-29] MEDS: FAMOTIDINE 20 MG TAB PO SCH ×2 (08:28→21:07)
[2018-06-29] MEDS: CLOTRIMAZOLE 1% TOPICAL CREAM 30GM TOP SCH ×2 (08:29→21:08)
[2018-06-29] MEDS: MORPHINE 4 MG/ML 1ML VIAL/SYRINGE (J2270) IV PRN (08:36)
[2018-06-29 09:00] VITALS: BP 132/68
[2018-06-29] MEDS: WARFARIN SOD 4 MG TAB PO SCH (16:35)
[2018-06-29] MEDS: AMITRIPTYLINE 50 MG TAB PO SCH (21:06)
[2018-06-29] MEDS: ATORVASTATIN 10 MG TAB PO SCH (21:07)
[2018-06-30] MEDS: PERCOCET 5MG/325MG TAB PO PRN ×4 (05:32→20:13)
[2018-06-30] MEDS: HEPARIN SOD (PORCINE) 5000 UNITS/ML VIAL SC SCH ×3 (05:32→20:17)
[2018-06-30 06:00] VITALS: BP 151/60
[2018-06-30 06:38] LABS: INR 1.05; PROTHROMBIN TIME 13.8 SECONDS (12.1-14.4)
[2018-06-30] MEDS: HumaLOG INSULIN (NovoLOG) PER UNIT SC SCH ×4 (08:12→21:00)
[2018-06-30] MEDS: MULTIVITAMINS/MINERALS THERAP 1 TAB PO SCH (08:13)
[2018-06-30] MEDS: FUROSEMIDE 20 MG TAB PO SCH (08:13)
[2018-06-30] MEDS: FAMOTIDINE 20 MG TAB PO SCH ×2 (08:13→20:12)
[2018-06-30] MEDS: **hydrALAZINE HCL** 25 MG TAB PO SCH ×3 (08:13→20:14)
[2018-06-30] MEDS: DOXYCYCLINE HYCLATE 100 MG TAB PO SCH ×2 (08:13→20:12)
[2018-06-30] MEDS: VITAMIN D 1,000 INTERNATIONAL UNITS TABLET PO SCH ×2 (08:14→20:16)
[2018-06-30] MEDS: ASPIRIN 81 MG ENTERIC TAB PO SCH (08:14)
[2018-06-30] MEDS: ENALAPRIL MALEATE 10 MG TAB PO SCH ×2 (08:14→20:15)
[2018-06-30] MEDS: metFORMIN (GLUCOPHAGE) 1000 MG TABLET PO SCH (08:14)
[2018-06-30] MEDS: amLODIPine 5 MG TAB PO SCH ×2 (08:15→20:12)
[2018-06-30] MEDS: MAGNESIUM OXIDE 400 MG TAB (MAG-OX) PO SCH ×3 (08:15→20:16)
[2018-06-30] MEDS: buPROPion **XL** TABLET 150MG (WELLBUTRIN XL) PO SCH (08:15)
[2018-06-30] MEDS: CARVedilol 12.5 MG TAB PO SCH ×2 (08:15→20:14)
[2018-06-30] MEDS: LEVEMIR (INSULIN DETEMIR) 1 UNITS/0.01ML SC SCH ×2 (08:16→20:17)
[2018-06-30] MEDS: CLOTRIMAZOLE 1% TOPICAL CREAM 30GM TOP SCH ×2 (08:20→20:20)
[2018-06-30] MEDS: DOCUSATE SODIUM 100 MG CAP PO SCH ×2 (08:33→20:15)
[2018-06-30] MEDS: WARFARIN SOD 4 MG TAB PO SCH (17:33)
[2018-06-30] MEDS: ATORVASTATIN 10 MG TAB PO SCH (20:13)
[2018-06-30] MEDS: AMITRIPTYLINE 50 MG TAB PO SCH (20:15)
[2018-07-01] MEDS: PERCOCET 5MG/325MG TAB PO PRN ×6 (01:07→22:27)
[2018-07-01] MEDS: HEPARIN SOD (PORCINE) 5000 UNITS/ML VIAL SC SCH ×3 (05:54→20:35)
[2018-07-01 06:00] VITALS: BP 154/90
[2018-07-01 06:56] LABS: INR 1.13; PROTHROMBIN TIME 14.7 SECONDS (12.1-14.4)
[2018-07-01] MEDS: metFORMIN (GLUCOPHAGE) 1000 MG TABLET PO SCH (08:54)
[2018-07-01] MEDS: HumaLOG INSULIN (NovoLOG) PER UNIT SC SCH ×4 (08:55→20:35)
[2018-07-01] MEDS: DOCUSATE SODIUM 100 MG CAP PO SCH ×2 (09:00→20:32)
[2018-07-01 10:00] VITALS: BP 142/82
[2018-07-01] MEDS: MULTIVITAMINS/MINERALS THERAP 1 TAB PO SCH (10:22)
[2018-07-01] MEDS: MAGNESIUM OXIDE 400 MG TAB (MAG-OX) PO SCH ×3 (10:23→20:34)
[2018-07-01] MEDS: **hydrALAZINE HCL** 25 MG TAB PO SCH ×3 (10:24→20:32)
[2018-07-01] MEDS: FUROSEMIDE 20 MG TAB PO SCH (10:25)
[2018-07-01] MEDS: ENALAPRIL MALEATE 10 MG TAB PO SCH ×2 (10:25→20:33)
[2018-07-01] MEDS: VITAMIN D 1,000 INTERNATIONAL UNITS TABLET PO SCH ×2 (10:26→20:38)
[2018-07-01] MEDS: buPROPion **XL** TABLET 150MG (WELLBUTRIN XL) PO SCH (10:27)
[2018-07-01] MEDS: FAMOTIDINE 20 MG TAB PO SCH ×2 (10:27→20:32)
[2018-07-01] MEDS: amLODIPine 5 MG TAB PO SCH ×2 (10:27→20:33)
[2018-07-01] MEDS: ASPIRIN 81 MG ENTERIC TAB PO SCH (10:27)
[2018-07-01] MEDS: CARVedilol 12.5 MG TAB PO SCH ×2 (10:28→20:34)
[2018-07-01] MEDS: DOXYCYCLINE HYCLATE 100 MG TAB PO SCH ×2 (10:28→20:32)
[2018-07-01] MEDS: CLOTRIMAZOLE 1% TOPICAL CREAM 30GM TOP SCH ×2 (10:29→20:35)
[2018-07-01] MEDS: LEVEMIR (INSULIN DETEMIR) 1 UNITS/0.01ML SC SCH ×2 (10:29→20:34)
[2018-07-01 14:00] VITALS: BP 148/84
[2018-07-01] MEDS: WARFARIN SOD 4 MG TAB PO SCH (18:13)
[2018-07-01] MEDS: AMITRIPTYLINE 50 MG TAB PO SCH (20:32)
[2018-07-01] MEDS: ATORVASTATIN 10 MG TAB PO SCH (20:32)
[2018-07-02] MEDS: PERCOCET 5MG/325MG TAB PO PRN ×5 (03:30→22:01)
[2018-07-02 06:00] VITALS: BP 172/81
[2018-07-02] MEDS: HEPARIN SOD (PORCINE) 5000 UNITS/ML VIAL SC SCH ×3 (06:00→21:58)
[2018-07-02 06:12] LABS: INR 1.15; PROTHROMBIN TIME 14.9 SECONDS (12.1-14.4)
[2018-07-02 08:42] VITALS: BP 132/62
[2018-07-02] MEDS: LEVEMIR (INSULIN DETEMIR) 1 UNITS/0.01ML SC SCH ×2 (08:43→21:58)
[2018-07-02] MEDS: HumaLOG INSULIN (NovoLOG) PER UNIT SC SCH ×4 (08:44→21:00)
[2018-07-02] MEDS: FAMOTIDINE 20 MG TAB PO SCH ×2 (08:45→21:55)
[2018-07-02] MEDS: buPROPion **XL** TABLET 150MG (WELLBUTRIN XL) PO SCH (08:45)
[2018-07-02] MEDS: metFORMIN (GLUCOPHAGE) 1000 MG TABLET PO SCH (08:45)
[2018-07-02] MEDS: **hydrALAZINE HCL** 25 MG TAB PO SCH ×3 (08:45→21:57)
[2018-07-02] MEDS: CARVedilol 12.5 MG TAB PO SCH ×2 (08:46→21:56)
[2018-07-02] MEDS: DOXYCYCLINE HYCLATE 100 MG TAB PO SCH ×2 (08:46→21:58)
[2018-07-02] MEDS: MAGNESIUM OXIDE 400 MG TAB (MAG-OX) PO SCH ×3 (08:46→21:57)
[2018-07-02] MEDS: DOCUSATE SODIUM 100 MG CAP PO SCH ×2 (08:46→21:57)
[2018-07-02] MEDS: ENALAPRIL MALEATE 10 MG TAB PO SCH ×2 (08:47→21:56)
[2018-07-02] MEDS: amLODIPine 5 MG TAB PO SCH ×2 (08:47→21:57)
[2018-07-02] MEDS: VITAMIN D 1,000 INTERNATIONAL UNITS TABLET PO SCH ×2 (08:47→21:55)
[2018-07-02] MEDS: FUROSEMIDE 20 MG TAB PO SCH (08:47)
[2018-07-02] MEDS: MULTIVITAMINS/MINERALS THERAP 1 TAB PO SCH (08:48)
[2018-07-02] MEDS: ASPIRIN 81 MG ENTERIC TAB PO SCH (08:48)
[2018-07-02] MEDS: CLOTRIMAZOLE 1% TOPICAL CREAM 30GM TOP SCH ×2 (08:48→21:58)
--- NOTE | 2018-07-02 16:37 | IPN ---
DATE: 07/02/2018 Mr. Herrera seems to be doing well. He was due for his wound vacuum assisted closure (VAC) to be changed today. This was done with the nurse. Case was discussed Dr. Izaguirre. He does not have any intention to do a closure of that wound. Will continue with wound VAC. The patient has some foot pain but otherwise doing well. No nausea, vomiting or diarrhea. No cough or shortness of breath. No complaints. LABORATORY DATA: Sodium 139, potassium 4.2, chloride 106, bicarbonate 27, BUN 18, creatinine 1.59, glucose 263, calcium 9.2, white count 8.6, hemoglobin 13.8, hematocrit 45.8, platelets 575. PHYSICAL EXAMINATION: Heart: Normal S1, S2. No murmurs appreciated. Lungs are clear. No wheezes, rales or rhonchi. Abdomen: Obese, soft, nontender. Extremities: No edema. Left heel has an open wound measuring about 3 x 1 cm width x 2 cm deep with granulation tissue. There is antibiotic beads noted in the wound. Minimal tenderness. No surrounding cellulitis. There is some skin maceration around the edges of the wound. IMPRESSION/Plan 1. Methicillin-resistant Staphylococcus aureus (MRSA) abscess of the left heel with cellulitis has resolved. The patient on by mouth doxycycline currently day #8. 2. History of chronic osteomyelitis of the left heel. Since MRI showed persistent osteomyelitis, I have opted to keep him on doxycycline for 4 weeks. Continue wound VAC per podiatry. [facility]
[2018-07-02] MEDS: WARFARIN SOD 4 MG TAB PO SCH (17:36)
[2018-07-02] MEDS: ATORVASTATIN 10 MG TAB PO SCH (21:57)
[2018-07-02] MEDS: AMITRIPTYLINE 50 MG TAB PO SCH (21:57)
[2018-07-03] MEDS: PERCOCET 5MG/325MG TAB PO PRN ×5 (03:13→21:38)
[2018-07-03] MEDS: HEPARIN SOD (PORCINE) 5000 UNITS/ML VIAL SC SCH ×3 (05:15→21:40)
[2018-07-03 06:00] VITALS: BP 130/70
[2018-07-03 06:24] LABS: BASO # 0.2 10^3/uL (0.0-0.2); BASO % 1.8 % (0.0-1.0); EOS # 0.5 10^3/uL (0.0-0.50); EOS % 5.5 % (0.0-3.0); HEMATOCRIT 44.5 % (42.0-52.0); HEMOGLOBIN 13.5 g/dl (13.5-17.5); LYMPH # 2.3 10^3/uL (1.5-4.5); LYMPH % 25.8 % (24.0-44.0); MEAN CORPUSCULAR HEMOGLOBIN 24.8 pg (27.0-33.0); MEAN CORPUSCULAR HGB CONC 30.3 g/dl (32.0-36.5); MEAN CORPUSCULAR VOLUME 81.7 fl (80.0-96.0); MONO # 0.6 10^3/uL (0.0-0.8); MONO % 6.5 % (0.0-5.0); NEUTROPHILS # 5.3 10^3/uL (1.8-7.7); NEUTROPHILS % 59.1 % (36.0-66.0); PLATELET COUNT, AUTOMATED 506 10^3/uL (150-450); RED BLOOD COUNT 5.45 10^6/uL (4.30-6.10); WHITE BLOOD COUNT 8.9 10^3/uL (4.0-10.0)
[2018-07-03 06:36] LABS: INR 1.14; PROTHROMBIN TIME 14.8 SECONDS (12.1-14.4)
[2018-07-03 07:15] LABS: ERYTHROCYTE SEDIMENTATION RATE 1 mm/hr (0-20)
[2018-07-03] MEDS: LEVEMIR (INSULIN DETEMIR) 1 UNITS/0.01ML SC SCH ×2 (08:27→21:40)
[2018-07-03] MEDS: CARVedilol 12.5 MG TAB PO SCH ×2 (08:28→21:37)
[2018-07-03] MEDS: metFORMIN (GLUCOPHAGE) 1000 MG TABLET PO SCH (08:28)
[2018-07-03] MEDS: **hydrALAZINE HCL** 25 MG TAB PO SCH ×3 (08:29→21:37)
[2018-07-03] MEDS: DOXYCYCLINE HYCLATE 100 MG TAB PO SCH ×2 (08:29→21:36)
[2018-07-03] MEDS: VITAMIN D 1,000 INTERNATIONAL UNITS TABLET PO SCH ×2 (08:30→21:38)
[2018-07-03] MEDS: CLOTRIMAZOLE 1% TOPICAL CREAM 30GM TOP SCH ×2 (08:32→21:41)
[2018-07-03] MEDS: MULTIVITAMINS/MINERALS THERAP 1 TAB PO SCH (08:32)
[2018-07-03] MEDS: FUROSEMIDE 20 MG TAB PO SCH (08:32)
[2018-07-03] MEDS: buPROPion **XL** TABLET 150MG (WELLBUTRIN XL) PO SCH (08:33)
[2018-07-03] MEDS: ENALAPRIL MALEATE 10 MG TAB PO SCH ×2 (08:33→21:39)
[2018-07-03] MEDS: MAGNESIUM OXIDE 400 MG TAB (MAG-OX) PO SCH ×3 (08:33→21:36)
[2018-07-03] MEDS: ASPIRIN 81 MG ENTERIC TAB PO SCH (08:33)
[2018-07-03] MEDS: FAMOTIDINE 20 MG TAB PO SCH ×2 (08:33→21:38)
[2018-07-03] MEDS: amLODIPine 5 MG TAB PO SCH ×2 (08:33→21:39)
[2018-07-03] MEDS: HumaLOG INSULIN (NovoLOG) PER UNIT SC SCH ×5 (08:38→21:40)
[2018-07-03] MEDS: DOCUSATE SODIUM 100 MG CAP PO SCH ×2 (08:39→21:39)
--- NOTE | 2018-07-03 10:23 | IPNPDOC ---
Text Note Date of Service The patient was seen on 07/03/18. NOTE SUBJECTIVE: Patient was examined at bedside. He had no acute complaints. Denies chest pain, denies nausea, denied vomiting. Denies shortness of breath, or difficulty breathing. He asked it he could be allowed to leave the floor the gift shop. He was afebrile OBJECTIVE PHYSICAL EXAMINATION: GENERAL APPEARANCE: Alert no acute distress. SKIN: Warm, well perfused LUNGS: Clear to auscultation bilaterally. HEART: Normal S1, S2. No murmurs, no rubs, no gallops ABDOMEN: Soft. No masses. Bowel sounds are present. EXTREMITIES: Wound VAC attached on left foot PULSES: 2+ upper and lower extremity . ASSESSMENT AND PLAN: # Methicillin-resistant Staphylococcus aureus (MRSA) abscess of the left heel -Cellulitis has resolved -Infectious disease consulted.. Currently managed with doxycycline by mouth. This is 9th day. The plan is for 4 weeks of antibiotic therapy -Would VAC in place -Podiatry consult #History of chronic osteomyelitis of the left heel -Continue psychotherapy #Right upper extremity DVT -Was held for debridement -Management warfarin therapy. Current INR is 1.14 -Increase warfarin from 12 mg to 20 mg #Type 2 diabetes with peripheral neuropathy on levemir bid, consistent carbs diet, hypoglycemic protocol, insulin sliding scale with coverage #Hypertension. Continue home meds #Dyslipidemia. Continue home med Disposition: PFS consulted VS,Tali, I+O VS, Tali, I+O Laboratory Tests 07/03/18 05:42 Red Blood Count 5.45, Mean Corpuscular Volume 81.7, Mean Corpuscular Hemoglobin 24.8 L, Mean Corpuscular Hemoglobin Concent 30.3 L, Red Cell Distribution Width 16.2 H, Neutrophils (%) (Auto) 59.1, Lymphocytes (%) (Auto) 25.8, Monocytes (%) (Auto) 6.5 H, Eosinophils (%) (Auto) 5.5 H, Basophils (%) (Auto) 1.8 H, Neutrophils # (Auto) 5.3, Lymphocytes # (Auto) 2.3, Monocytes # (Auto) 0.6, Eosinophils # (Auto) 0.5, Basophils # (Auto) 0.2 Vital Signs Date Time Temp Pulse Resp B/P (MAP) Pulse Ox O2 Delivery O2 Flow Rate FiO2 07/03/18 09:15 20 07/03/18 08:28 66 130/70 07/03/18 06:00 97.5 94 I&O- Last 24 Hours up to 6 AM 07/03/18 06:00 Intake Total 1200 ml Output Total 1900 ml Balance -700 ml GME ATTESTATION GME ATTESTATION My faculty preceptor for this patient encounter was physically present during the encounter and was fully available. All aspects of the patient interview, examination, medical decision making process, and medical care plan development were reviewed and approved by the faculty preceptor. The faculty preceptor is aware and concurs with the plan as stated in the body of this note and will attest to such by his/her cosignature. RIGO HENRY DO Jul 03, 2018 10:23
[2018-07-03] MEDS: WARFARIN SOD 5 MG TAB PO SCH (17:25)
[2018-07-03] MEDS: AMITRIPTYLINE 50 MG TAB PO SCH (21:37)
[2018-07-03] MEDS: ATORVASTATIN 10 MG TAB PO SCH (21:39)
[2018-07-04] MEDS: PERCOCET 5MG/325MG TAB PO PRN ×5 (02:48→20:50)
[2018-07-04] MEDS: HEPARIN SOD (PORCINE) 5000 UNITS/ML VIAL SC SCH ×3 (05:39→20:48)
[2018-07-04 06:00] VITALS: BP 139/73
[2018-07-04 06:43] LABS: INR 1.33; PROTHROMBIN TIME 16.7 SECONDS (12.1-14.4)
[2018-07-04] MEDS: LEVEMIR (INSULIN DETEMIR) 1 UNITS/0.01ML SC SCH ×2 (08:17→20:48)
[2018-07-04] MEDS: HumaLOG INSULIN (NovoLOG) PER UNIT SC SCH ×4 (08:17→20:52)
[2018-07-04] MEDS: FUROSEMIDE 20 MG TAB PO SCH (08:18)
[2018-07-04] MEDS: amLODIPine 5 MG TAB PO SCH ×2 (08:18→20:51)
[2018-07-04] MEDS: MAGNESIUM OXIDE 400 MG TAB (MAG-OX) PO SCH ×3 (08:19→20:50)
[2018-07-04] MEDS: buPROPion **XL** TABLET 150MG (WELLBUTRIN XL) PO SCH (08:20)
[2018-07-04] MEDS: FAMOTIDINE 20 MG TAB PO SCH ×2 (08:20→18:38)
[2018-07-04] MEDS: MULTIVITAMINS/MINERALS THERAP 1 TAB PO SCH (08:20)
[2018-07-04] MEDS: ENALAPRIL MALEATE 10 MG TAB PO SCH ×2 (08:20→20:51)
[2018-07-04] MEDS: metFORMIN (GLUCOPHAGE) 1000 MG TABLET PO SCH (08:21)
[2018-07-04] MEDS: **hydrALAZINE HCL** 25 MG TAB PO SCH ×3 (08:21→20:50)
[2018-07-04] MEDS: CARVedilol 12.5 MG TAB PO SCH ×2 (08:22→20:49)
[2018-07-04] MEDS: ASPIRIN 81 MG ENTERIC TAB PO SCH (08:23)
[2018-07-04] MEDS: DOXYCYCLINE HYCLATE 100 MG TAB PO SCH ×2 (08:23→20:51)
[2018-07-04] MEDS: VITAMIN D 1,000 INTERNATIONAL UNITS TABLET PO SCH ×2 (08:23→20:51)
[2018-07-04] MEDS: CLOTRIMAZOLE 1% TOPICAL CREAM 30GM TOP SCH ×2 (08:24→20:52)
[2018-07-04] MEDS: DOCUSATE SODIUM 100 MG CAP PO SCH ×2 (08:25→20:53)
[2018-07-04] MEDS: WARFARIN SOD 5 MG TAB PO SCH (16:25)
[2018-07-04] MEDS: OMEPRAZOLE 20 MG CAP PO SCH (19:02)
[2018-07-04] MEDS: AMITRIPTYLINE 50 MG TAB PO SCH (20:50)
[2018-07-04] MEDS: ATORVASTATIN 10 MG TAB PO SCH (20:51)
[2018-07-04 22:00] VITALS: BP 152/78
[2018-07-05] MEDS: PERCOCET 5MG/325MG TAB PO PRN ×5 (02:49→21:06)
[2018-07-05] MEDS: HEPARIN SOD (PORCINE) 5000 UNITS/ML VIAL SC SCH ×3 (05:32→21:06)
[2018-07-05 06:00] VITALS: BP 164/77
[2018-07-05] MEDS: CLOTRIMAZOLE 1% TOPICAL CREAM 30GM TOP SCH ×2 (08:07→20:20)
[2018-07-05] MEDS: buPROPion **XL** TABLET 150MG (WELLBUTRIN XL) PO SCH (08:07)
[2018-07-05] MEDS: VITAMIN D 1,000 INTERNATIONAL UNITS TABLET PO SCH ×2 (08:07→20:20)
[2018-07-05] MEDS: MAGNESIUM OXIDE 400 MG TAB (MAG-OX) PO SCH ×3 (08:07→20:19)
[2018-07-05] MEDS: MULTIVITAMINS/MINERALS THERAP 1 TAB PO SCH (08:07)
[2018-07-05] MEDS: **hydrALAZINE HCL** 25 MG TAB PO SCH ×3 (08:09→20:17)
[2018-07-05] MEDS: FAMOTIDINE 20 MG TAB PO SCH ×2 (08:09→20:17)
[2018-07-05] MEDS: amLODIPine 5 MG TAB PO SCH ×2 (08:10→20:18)
[2018-07-05] MEDS: DOCUSATE SODIUM 100 MG CAP PO SCH ×2 (08:10→20:20)
[2018-07-05] MEDS: CARVedilol 12.5 MG TAB PO SCH ×2 (08:10→20:19)
[2018-07-05] MEDS: ASPIRIN 81 MG ENTERIC TAB PO SCH (08:10)
[2018-07-05] MEDS: OMEPRAZOLE 20 MG CAP PO SCH ×2 (08:10→20:19)
[2018-07-05] MEDS: FUROSEMIDE 20 MG TAB PO SCH (08:11)
[2018-07-05] MEDS: ENALAPRIL MALEATE 10 MG TAB PO SCH ×2 (08:11→20:19)
[2018-07-05] MEDS: DOXYCYCLINE HYCLATE 100 MG TAB PO SCH ×2 (08:12→20:17)
[2018-07-05] MEDS: metFORMIN (GLUCOPHAGE) 1000 MG TABLET PO SCH (08:12)
[2018-07-05] MEDS: HumaLOG INSULIN (NovoLOG) PER UNIT SC SCH ×4 (08:13→21:00)
[2018-07-05] MEDS: LEVEMIR (INSULIN DETEMIR) 1 UNITS/0.01ML SC SCH ×2 (08:13→20:17)
[2018-07-05 09:35] LABS: INR 1.46
[2018-07-05] MEDS: WARFARIN SOD 5 MG TAB PO SCH (16:41)
[2018-07-05] MEDS: ATORVASTATIN 10 MG TAB PO SCH (20:17)
[2018-07-05] MEDS: AMITRIPTYLINE 50 MG TAB PO SCH (20:18)
[2018-07-06] MEDS: PERCOCET 5MG/325MG TAB PO PRN ×6 (01:08→22:34)
[2018-07-06] MEDS: HEPARIN SOD (PORCINE) 5000 UNITS/ML VIAL SC SCH ×3 (05:07→22:36)
[2018-07-06 06:00] VITALS: BP 136/64
[2018-07-06 07:10] LABS: INR 1.61; PROTHROMBIN TIME 19.4 SECONDS (12.1-14.4)
[2018-07-06 07:49] VITALS: BP 142/70
[2018-07-06] MEDS: DOCUSATE SODIUM 100 MG CAP PO SCH ×2 (09:00→20:34)
[2018-07-06] MEDS: **hydrALAZINE HCL** 25 MG TAB PO SCH ×3 (09:25→20:37)
[2018-07-06] MEDS: OMEPRAZOLE 20 MG CAP PO SCH ×2 (09:26→20:35)
[2018-07-06] MEDS: metFORMIN (GLUCOPHAGE) 1000 MG TABLET PO SCH (09:26)
[2018-07-06] MEDS: CARVedilol 12.5 MG TAB PO SCH ×2 (09:26→20:37)
[2018-07-06] MEDS: VITAMIN D 1,000 INTERNATIONAL UNITS TABLET PO SCH ×2 (09:27→20:34)
[2018-07-06] MEDS: FUROSEMIDE 20 MG TAB PO SCH (09:28)
[2018-07-06] MEDS: FAMOTIDINE 20 MG TAB PO SCH ×2 (09:29→20:36)
[2018-07-06] MEDS: MAGNESIUM OXIDE 400 MG TAB (MAG-OX) PO SCH ×3 (09:29→20:36)
[2018-07-06] MEDS: ENALAPRIL MALEATE 10 MG TAB PO SCH ×2 (09:29→20:36)
[2018-07-06] MEDS: ASPIRIN 81 MG ENTERIC TAB PO SCH (09:29)
[2018-07-06] MEDS: DOXYCYCLINE HYCLATE 100 MG TAB PO SCH ×2 (09:30→20:37)
[2018-07-06] MEDS: buPROPion **XL** TABLET 150MG (WELLBUTRIN XL) PO SCH (09:30)
[2018-07-06] MEDS: MULTIVITAMINS/MINERALS THERAP 1 TAB PO SCH (09:30)
[2018-07-06] MEDS: amLODIPine 5 MG TAB PO SCH ×2 (09:32→20:35)
[2018-07-06] MEDS: LEVEMIR (INSULIN DETEMIR) 1 UNITS/0.01ML SC SCH ×2 (09:33→20:33)
[2018-07-06] MEDS: HumaLOG INSULIN (NovoLOG) PER UNIT SC SCH ×4 (09:34→20:32)
[2018-07-06] MEDS: CLOTRIMAZOLE 1% TOPICAL CREAM 30GM TOP SCH ×2 (09:35→20:38)
[2018-07-06 14:00] VITALS: BP 126/71
--- NOTE | 2018-07-06 14:59 | IPN ---
DATE: 07/05/2018 The patient was seen and examined at bedside. Denies any new complaints. He has some soreness in his foot. Laboratories are reviewed. White blood cell count is 8.9, most recent CRP is 0.3, most recent ESR is 1, INR is 1.46 today. Lower extremity examination: Improvement in size of wound. There is some maceration to the wound today. No purulent drainage or necrotic tissue. ASSESSMENT: 57-year-old diabetic male with chronic heel osteomyelitis, status post debridement. PLAN: Hold back therapy times one day, resume tomorrow. Continue wound VAC therapy while the patient is in the hospital. We will plan discharge with followup with Dr. Knapp once his INR is therapeutic and while he is here continue wound VAC therapy.
[2018-07-06] MEDS: WARFARIN SOD 5 MG TAB PO SCH (17:20)
[2018-07-06] MEDS: ATORVASTATIN 10 MG TAB PO SCH (20:33)
[2018-07-06] MEDS: AMITRIPTYLINE 50 MG TAB PO SCH (20:34)
[2018-07-06 22:00] VITALS: BP 139/69
[2018-07-07] MEDS: PERCOCET 5MG/325MG TAB PO PRN ×5 (02:54→20:57)
[2018-07-07 06:00] VITALS: BP 133/63
[2018-07-07] MEDS: HEPARIN SOD (PORCINE) 5000 UNITS/ML VIAL SC SCH ×3 (06:12→20:49)
[2018-07-07 06:54] LABS: INR 1.7; PROTHROMBIN TIME 20.3 SECONDS (12.1-14.4)
[2018-07-07] MEDS: HumaLOG INSULIN (NovoLOG) PER UNIT SC SCH ×4 (08:32→20:55)
[2018-07-07] MEDS: LEVEMIR (INSULIN DETEMIR) 1 UNITS/0.01ML SC SCH ×2 (08:32→21:03)
[2018-07-07] MEDS: MAGNESIUM OXIDE 400 MG TAB (MAG-OX) PO SCH ×3 (08:33→20:54)
[2018-07-07] MEDS: ASPIRIN 81 MG ENTERIC TAB PO SCH (08:36)
[2018-07-07] MEDS: MULTIVITAMINS/MINERALS THERAP 1 TAB PO SCH (08:36)
[2018-07-07] MEDS: **hydrALAZINE HCL** 25 MG TAB PO SCH ×3 (08:36→20:55)
[2018-07-07] MEDS: buPROPion **XL** TABLET 150MG (WELLBUTRIN XL) PO SCH (08:37)
[2018-07-07] MEDS: DOCUSATE SODIUM 100 MG CAP PO SCH ×2 (08:37→20:55)
[2018-07-07] MEDS: VITAMIN D 1,000 INTERNATIONAL UNITS TABLET PO SCH ×2 (08:37→21:04)
[2018-07-07] MEDS: ENALAPRIL MALEATE 10 MG TAB PO SCH ×2 (08:38→20:54)
[2018-07-07] MEDS: DOXYCYCLINE HYCLATE 100 MG TAB PO SCH ×2 (08:39→20:50)
[2018-07-07] MEDS: metFORMIN (GLUCOPHAGE) 1000 MG TABLET PO SCH (08:39)
[2018-07-07] MEDS: CARVedilol 12.5 MG TAB PO SCH ×2 (08:39→20:54)
[2018-07-07] MEDS: FAMOTIDINE 20 MG TAB PO SCH ×2 (08:39→20:50)
[2018-07-07] MEDS: OMEPRAZOLE 20 MG CAP PO SCH ×2 (08:39→20:50)
[2018-07-07] MEDS: amLODIPine 5 MG TAB PO SCH ×2 (08:40→20:53)
[2018-07-07] MEDS: FUROSEMIDE 20 MG TAB PO SCH (08:42)
[2018-07-07] MEDS: CLOTRIMAZOLE 1% TOPICAL CREAM 30GM TOP SCH ×2 (08:43→20:58)
[2018-07-07] MEDS: WARFARIN SOD 5 MG TAB PO SCH (17:07)
[2018-07-07] MEDS: ATORVASTATIN 10 MG TAB PO SCH (20:50)
[2018-07-07] MEDS: AMITRIPTYLINE 50 MG TAB PO SCH (20:50)
[2018-07-08] MEDS: PERCOCET 5MG/325MG TAB PO PRN ×5 (01:16→22:21)
[2018-07-08] MEDS: HEPARIN SOD (PORCINE) 5000 UNITS/ML VIAL SC SCH ×3 (05:56→21:42)
[2018-07-08 06:00] VITALS: BP 140/80
[2018-07-08 06:52] LABS: INR 1.65; PROTHROMBIN TIME 19.8 SECONDS (12.1-14.4)
[2018-07-08] MEDS: VITAMIN D 1,000 INTERNATIONAL UNITS TABLET PO SCH ×2 (08:17→21:41)
[2018-07-08] MEDS: ENALAPRIL MALEATE 10 MG TAB PO SCH ×2 (08:17→21:39)
[2018-07-08] MEDS: CLOTRIMAZOLE 1% TOPICAL CREAM 30GM TOP SCH ×2 (08:17→21:43)
[2018-07-08] MEDS: **hydrALAZINE HCL** 25 MG TAB PO SCH ×3 (08:18→21:42)
[2018-07-08] MEDS: CARVedilol 12.5 MG TAB PO SCH ×2 (08:18→21:40)
[2018-07-08] MEDS: MAGNESIUM OXIDE 400 MG TAB (MAG-OX) PO SCH ×3 (08:18→21:41)
[2018-07-08] MEDS: FAMOTIDINE 20 MG TAB PO SCH ×2 (08:18→21:42)
[2018-07-08] MEDS: ASPIRIN 81 MG ENTERIC TAB PO SCH (08:18)
[2018-07-08] MEDS: OMEPRAZOLE 20 MG CAP PO SCH ×2 (08:19→21:40)
[2018-07-08] MEDS: DOXYCYCLINE HYCLATE 100 MG TAB PO SCH ×2 (08:19→21:39)
[2018-07-08] MEDS: MULTIVITAMINS/MINERALS THERAP 1 TAB PO SCH (08:19)
[2018-07-08] MEDS: FUROSEMIDE 20 MG TAB PO SCH (08:19)
[2018-07-08] MEDS: metFORMIN (GLUCOPHAGE) 1000 MG TABLET PO SCH (08:19)
[2018-07-08] MEDS: buPROPion **XL** TABLET 150MG (WELLBUTRIN XL) PO SCH (08:19)
[2018-07-08] MEDS: amLODIPine 5 MG TAB PO SCH ×2 (08:20→21:41)
[2018-07-08] MEDS: LEVEMIR (INSULIN DETEMIR) 1 UNITS/0.01ML SC SCH ×2 (08:20→21:43)
[2018-07-08] MEDS: HumaLOG INSULIN (NovoLOG) PER UNIT SC SCH ×4 (08:21→21:43)
[2018-07-08] MEDS: DOCUSATE SODIUM 100 MG CAP PO SCH ×2 (08:21→21:00)
[2018-07-08] MEDS: WARFARIN SOD 5 MG TAB PO SCH (16:01)
[2018-07-08] MEDS: AMITRIPTYLINE 50 MG TAB PO SCH (21:40)
[2018-07-08] MEDS: ATORVASTATIN 10 MG TAB PO SCH (21:40)
[2018-07-09] MEDS: PERCOCET 5MG/325MG TAB PO PRN ×5 (02:51→23:10)
[2018-07-09 05:59] LABS: INR 1.8; PROTHROMBIN TIME 21.2 SECONDS (12.1-14.4)
[2018-07-09 06:00] VITALS: BP 141/69
[2018-07-09] MEDS: HEPARIN SOD (PORCINE) 5000 UNITS/ML VIAL SC SCH ×3 (06:23→21:48)
[2018-07-09] MEDS: MULTIVITAMINS/MINERALS THERAP 1 TAB PO SCH (07:39)
[2018-07-09] MEDS: HumaLOG INSULIN (NovoLOG) PER UNIT SC SCH ×4 (07:39→21:00)
[2018-07-09] MEDS: VITAMIN D 1,000 INTERNATIONAL UNITS TABLET PO SCH ×2 (07:40→21:54)
[2018-07-09] MEDS: OMEPRAZOLE 20 MG CAP PO SCH ×2 (07:40→21:48)
[2018-07-09] MEDS: FAMOTIDINE 20 MG TAB PO SCH ×2 (07:40→21:50)
[2018-07-09] MEDS: buPROPion **XL** TABLET 150MG (WELLBUTRIN XL) PO SCH (07:40)
[2018-07-09] MEDS: metFORMIN (GLUCOPHAGE) 1000 MG TABLET PO SCH (07:40)
[2018-07-09] MEDS: DOCUSATE SODIUM 100 MG CAP PO SCH ×2 (07:40→21:00)
[2018-07-09] MEDS: MAGNESIUM OXIDE 400 MG TAB (MAG-OX) PO SCH ×3 (07:41→21:48)
[2018-07-09] MEDS: FUROSEMIDE 20 MG TAB PO SCH (07:41)
[2018-07-09] MEDS: ASPIRIN 81 MG ENTERIC TAB PO SCH (07:41)
[2018-07-09] MEDS: DOXYCYCLINE HYCLATE 100 MG TAB PO SCH ×2 (07:41→21:49)
[2018-07-09] MEDS: ENALAPRIL MALEATE 10 MG TAB PO SCH ×2 (07:42→21:50)
[2018-07-09] MEDS: CARVedilol 12.5 MG TAB PO SCH ×2 (07:42→21:51)
[2018-07-09] MEDS: amLODIPine 5 MG TAB PO SCH ×2 (07:43→21:50)
[2018-07-09] MEDS: **hydrALAZINE HCL** 25 MG TAB PO SCH ×3 (07:43→21:49)
[2018-07-09] MEDS: LEVEMIR (INSULIN DETEMIR) 1 UNITS/0.01ML SC SCH ×2 (07:44→21:51)
[2018-07-09] MEDS: CLOTRIMAZOLE 1% TOPICAL CREAM 30GM TOP SCH ×2 (07:44→21:00)
[2018-07-09] MEDS: WARFARIN SOD 5 MG TAB PO SCH (17:46)
[2018-07-09] MEDS: AMITRIPTYLINE 50 MG TAB PO SCH (21:48)
[2018-07-09] MEDS: ATORVASTATIN 10 MG TAB PO SCH (21:50)
[2018-07-10] MEDS: HEPARIN SOD (PORCINE) 5000 UNITS/ML VIAL SC SCH ×3 (05:23→22:20)
[2018-07-10] MEDS: PERCOCET 5MG/325MG TAB PO PRN ×4 (05:23→22:24)
[2018-07-10 06:00] VITALS: BP 151/74
[2018-07-10 06:45] LABS: BASO # 0.2 10^3/uL (0.0-0.2); BASO % 2.4 % (0.0-1.0); EOS # 0.5 10^3/uL (0.0-0.50); EOS % 7.2 % (0.0-3.0); HEMATOCRIT 45.3 % (42.0-52.0); HEMOGLOBIN 13.8 g/dl (13.5-17.5); LYMPH # 2.1 10^3/uL (1.5-4.5); LYMPH % 28.5 % (24.0-44.0); MEAN CORPUSCULAR HEMOGLOBIN 24.8 pg (27.0-33.0); MEAN CORPUSCULAR HGB CONC 30.5 g/dl (32.0-36.5); MEAN CORPUSCULAR VOLUME 81.3 fl (80.0-96.0); MONO # 0.5 10^3/uL (0.0-0.8); MONO % 6.8 % (0.0-5.0); NEUTROPHILS # 3.9 10^3/uL (1.8-7.7); NEUTROPHILS % 54.3 % (36.0-66.0); PLATELET COUNT, AUTOMATED 450 10^3/uL (150-450); RED BLOOD COUNT 5.57 10^6/uL (4.30-6.10); WHITE BLOOD COUNT 7.2 10^3/uL (4.0-10.0)
[2018-07-10 07:03] LABS: INR 1.87; PROTHROMBIN TIME 21.9 SECONDS (12.1-14.4)
[2018-07-10 07:13] LABS: BLOOD UREA NITROGEN 21 MG/DL (7-18); C REACTIVE PROTEIN QUANTITATIV < 0.30 MG/DL (0.00-0.30); CALCIUM LEVEL 9.4 MG/DL (8.5-10.1); CARBON DIOXIDE LEVEL 28 MEQ/L (21-32); CHLORIDE LEVEL 106 MEQ/L (98-107); CREATININE FOR GFR 1.44 MG/DL (0.70-1.30); GLOMERULAR FILTRATION RATE 53.8 (>56); GLUCOSE, FASTING 194 MG/DL (70-100); SODIUM LEVEL 140 MEQ/L (136-145)
--- NOTE | 2018-07-10 08:19 | IPN ---
DATE: 07/09/2018 Jovanny is doing well. He only complains of some foot pain. He stated that the wound was somewhat macerated on Thursday and the wound VAC was removed and kept off for 48 hours. He has no fever or chills. No nausea, vomiting or diarrhea. LABORATORY DATA: White count is 8.9, hemoglobin 13.5, hematocrit 44.5, platelets 506, 59% neutrophils, 25% lymphocytes, 6% monocytes. Sodium 139, potassium 4.2, chloride 106, bicarb 27, BUN 18, creatinine 1.59, glucose 263, calcium 9.2, CRP less than 0.3. The patient has been on antibiotics since June 16. PHYSICAL EXAMINATION: Temperature is 97, pulse 75, respirations 15, blood pressure 141/69, O2 sat 93% on room air. Heart: Normal S1-S2. No murmurs. Lungs are clear. Abdomen: Benign, soft, nontender. Extremities: Left heel macerated, especially medially. The wound looks great. Wound VAC was removed. Granulation tissue with skin maceration around the wound. Sutures are still in place. There is no drainage. No purulence. No tenderness. No redness. IMPRESSION: 1. MRSA abscess and cellulitis of the left heel on p.o. doxycycline. The patient has been on antibiotics since 06/16. Plan to discontinue after a total of one month. Continue wound VAC. 2. Placement issue. The patient needs an apartment at ground level so he does not take stairs. 3. Wound maceration. Wound VAC will remain off until Thursday. Case has been discussed with nurse in charge, Hilary, who will keep the wound VAC off over the weekend. Infectious disease signing off. Doxycycline will be discontinued on 07/17. Repeat CBC basic CRP, ESR tomorrow.
[2018-07-10] MEDS: HumaLOG INSULIN (NovoLOG) PER UNIT SC SCH ×4 (08:20→21:00)
[2018-07-10] MEDS: LEVEMIR (INSULIN DETEMIR) 1 UNITS/0.01ML SC SCH ×2 (08:21→22:22)
[2018-07-10] MEDS: **hydrALAZINE HCL** 25 MG TAB PO SCH ×3 (08:22→22:22)
[2018-07-10] MEDS: ASPIRIN 81 MG ENTERIC TAB PO SCH (08:22)
[2018-07-10] MEDS: ENALAPRIL MALEATE 10 MG TAB PO SCH ×2 (08:23→22:21)
[2018-07-10] MEDS: metFORMIN (GLUCOPHAGE) 1000 MG TABLET PO SCH (08:23)
[2018-07-10] MEDS: buPROPion **XL** TABLET 150MG (WELLBUTRIN XL) PO SCH (08:25)
[2018-07-10] MEDS: amLODIPine 5 MG TAB PO SCH ×2 (08:25→22:23)
[2018-07-10] MEDS: MAGNESIUM OXIDE 400 MG TAB (MAG-OX) PO SCH ×3 (08:25→22:23)
[2018-07-10] MEDS: VITAMIN D 1,000 INTERNATIONAL UNITS TABLET PO SCH ×2 (08:25→22:21)
[2018-07-10] MEDS: MULTIVITAMINS/MINERALS THERAP 1 TAB PO SCH (08:28)
[2018-07-10] MEDS: CARVedilol 12.5 MG TAB PO SCH ×2 (08:28→22:21)
[2018-07-10] MEDS: FAMOTIDINE 20 MG TAB PO SCH ×2 (08:29→22:23)
[2018-07-10] MEDS: FUROSEMIDE 20 MG TAB PO SCH (08:29)
[2018-07-10] MEDS: DOCUSATE SODIUM 100 MG CAP PO SCH ×2 (08:29→21:00)
[2018-07-10] MEDS: OMEPRAZOLE 20 MG CAP PO SCH ×2 (08:29→22:24)
[2018-07-10] MEDS: CLOTRIMAZOLE 1% TOPICAL CREAM 30GM TOP SCH ×2 (08:30→21:00)
[2018-07-10] MEDS: DOXYCYCLINE HYCLATE 100 MG TAB PO SCH ×2 (08:30→22:24)
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
[2018-07-10] MEDS: WARFARIN SOD 5 MG TAB PO SCH (17:31)
[2018-07-10 22:00] VITALS: BP 133/71
[2018-07-10] MEDS: AMITRIPTYLINE 50 MG TAB PO SCH (22:23)
[2018-07-10] MEDS: ATORVASTATIN 10 MG TAB PO SCH (22:23)
[2018-07-11] MEDS: PERCOCET 5MG/325MG TAB PO PRN ×5 (02:26→20:46)
[2018-07-11 06:00] VITALS: BP 146/70
[2018-07-11 06:28] LABS: INR 1.91; PROTHROMBIN TIME 22.2 SECONDS (12.1-14.4)
[2018-07-11] MEDS: HEPARIN SOD (PORCINE) 5000 UNITS/ML VIAL SC SCH ×3 (06:44→20:50)
[2018-07-11] MEDS: HumaLOG INSULIN (NovoLOG) PER UNIT SC SCH ×4 (09:20→20:50)
[2018-07-11] MEDS: LEVEMIR (INSULIN DETEMIR) 1 UNITS/0.01ML SC SCH ×2 (09:20→20:50)
[2018-07-11] MEDS: metFORMIN (GLUCOPHAGE) 1000 MG TABLET PO SCH (09:21)
[2018-07-11] MEDS: DOCUSATE SODIUM 100 MG CAP PO SCH ×2 (09:22→20:50)
[2018-07-11] MEDS: VITAMIN D 1,000 INTERNATIONAL UNITS TABLET PO SCH ×2 (09:22→20:47)
[2018-07-11] MEDS: OMEPRAZOLE 20 MG CAP PO SCH ×2 (09:23→20:49)
[2018-07-11] MEDS: MULTIVITAMINS/MINERALS THERAP 1 TAB PO SCH (09:23)
[2018-07-11] MEDS: amLODIPine 5 MG TAB PO SCH ×2 (09:24→20:49)
[2018-07-11] MEDS: **hydrALAZINE HCL** 25 MG TAB PO SCH ×3 (09:24→20:47)
[2018-07-11] MEDS: FUROSEMIDE 20 MG TAB PO SCH (09:25)
[2018-07-11] MEDS: ASPIRIN 81 MG ENTERIC TAB PO SCH (09:25)
[2018-07-11] MEDS: buPROPion **XL** TABLET 150MG (WELLBUTRIN XL) PO SCH (09:25)
[2018-07-11] MEDS: MAGNESIUM OXIDE 400 MG TAB (MAG-OX) PO SCH ×3 (09:26→20:48)
[2018-07-11] MEDS: FAMOTIDINE 20 MG TAB PO SCH ×2 (09:26→20:49)
[2018-07-11] MEDS: DOXYCYCLINE HYCLATE 100 MG TAB PO SCH ×2 (09:26→20:49)
[2018-07-11] MEDS: CARVedilol 12.5 MG TAB PO SCH ×2 (09:26→20:48)
[2018-07-11] MEDS: ENALAPRIL MALEATE 10 MG TAB PO SCH ×2 (09:27→20:47)
[2018-07-11] MEDS: CLOTRIMAZOLE 1% TOPICAL CREAM 30GM TOP SCH ×2 (09:28→20:54)
[2018-07-11] MEDS: WARFARIN SOD 5 MG TAB PO SCH (16:23)
[2018-07-11] MEDS: ATORVASTATIN 10 MG TAB PO SCH (20:47)
[2018-07-11] MEDS: AMITRIPTYLINE 50 MG TAB PO SCH (20:49)
[2018-07-11 22:00] VITALS: BP 141/77
[2018-07-12] MEDS: PERCOCET 5MG/325MG TAB PO PRN ×4 (04:22→21:36)
[2018-07-12] MEDS: HEPARIN SOD (PORCINE) 5000 UNITS/ML VIAL SC SCH ×3 (05:11→21:44)
[2018-07-12 06:00] VITALS: BP 136/63
[2018-07-12 06:45] LABS: INR 1.97; PROTHROMBIN TIME 22.8 SECONDS (12.1-14.4)
[2018-07-12] MEDS: LEVEMIR (INSULIN DETEMIR) 1 UNITS/0.01ML SC SCH ×2 (07:45→21:43)
[2018-07-12] MEDS: buPROPion **XL** TABLET 150MG (WELLBUTRIN XL) PO SCH (07:45)
[2018-07-12] MEDS: metFORMIN (GLUCOPHAGE) 1000 MG TABLET PO SCH (07:45)
[2018-07-12] MEDS: HumaLOG INSULIN (NovoLOG) PER UNIT SC SCH ×4 (07:45→21:39)
[2018-07-12] MEDS: amLODIPine 5 MG TAB PO SCH ×2 (07:46→21:46)
[2018-07-12] MEDS: **hydrALAZINE HCL** 25 MG TAB PO SCH ×3 (07:46→21:44)
[2018-07-12] MEDS: DOXYCYCLINE HYCLATE 100 MG TAB PO SCH ×2 (07:46→21:45)
[2018-07-12] MEDS: VITAMIN D 1,000 INTERNATIONAL UNITS TABLET PO SCH ×2 (07:46→21:45)
[2018-07-12] MEDS: DOCUSATE SODIUM 100 MG CAP PO SCH ×2 (07:47→21:46)
[2018-07-12] MEDS: OMEPRAZOLE 20 MG CAP PO SCH ×2 (07:47→21:44)
[2018-07-12] MEDS: FAMOTIDINE 20 MG TAB PO SCH ×2 (07:47→21:45)
[2018-07-12] MEDS: MAGNESIUM OXIDE 400 MG TAB (MAG-OX) PO SCH ×3 (07:47→21:45)
[2018-07-12] MEDS: ASPIRIN 81 MG ENTERIC TAB PO SCH (07:47)
[2018-07-12] MEDS: FUROSEMIDE 20 MG TAB PO SCH (07:47)
[2018-07-12] MEDS: CARVedilol 12.5 MG TAB PO SCH ×2 (07:47→21:45)
[2018-07-12] MEDS: ENALAPRIL MALEATE 10 MG TAB PO SCH ×2 (07:48→21:44)
[2018-07-12] MEDS: MULTIVITAMINS/MINERALS THERAP 1 TAB PO SCH (07:48)
[2018-07-12] MEDS: CLOTRIMAZOLE 1% TOPICAL CREAM 30GM TOP SCH ×2 (07:48→21:46)
[2018-07-12] MEDS: WARFARIN SOD 5 MG TAB PO SCH (17:20)
[2018-07-12] MEDS: ATORVASTATIN 10 MG TAB PO SCH (21:45)
[2018-07-12] MEDS: AMITRIPTYLINE 50 MG TAB PO SCH (21:46)
[2018-07-13] MEDS: PERCOCET 5MG/325MG TAB PO PRN ×6 (01:55→22:29)
[2018-07-13] MEDS: HEPARIN SOD (PORCINE) 5000 UNITS/ML VIAL SC SCH ×3 (05:39→21:23)
[2018-07-13 06:00] VITALS: BP 159/78
[2018-07-13] MEDS: LEVEMIR (INSULIN DETEMIR) 1 UNITS/0.01ML SC SCH ×2 (08:28→21:23)
[2018-07-13] MEDS: FAMOTIDINE 20 MG TAB PO SCH ×2 (08:29→20:06)
[2018-07-13] MEDS: FUROSEMIDE 20 MG TAB PO SCH (08:29)
[2018-07-13] MEDS: HumaLOG INSULIN (NovoLOG) PER UNIT SC SCH ×4 (08:29→20:50)
[2018-07-13] MEDS: VITAMIN D 1,000 INTERNATIONAL UNITS TABLET PO SCH ×2 (08:29→20:05)
[2018-07-13] MEDS: buPROPion **XL** TABLET 150MG (WELLBUTRIN XL) PO SCH (08:30)
[2018-07-13] MEDS: ENALAPRIL MALEATE 10 MG TAB PO SCH ×2 (08:30→20:07)
[2018-07-13] MEDS: MULTIVITAMINS/MINERALS THERAP 1 TAB PO SCH (08:30)
[2018-07-13] MEDS: metFORMIN (GLUCOPHAGE) 1000 MG TABLET PO SCH (08:31)
[2018-07-13] MEDS: **hydrALAZINE HCL** 25 MG TAB PO SCH ×3 (08:31→20:06)
[2018-07-13] MEDS: ASPIRIN 81 MG ENTERIC TAB PO SCH (08:31)
[2018-07-13] MEDS: CARVedilol 12.5 MG TAB PO SCH ×2 (08:31→20:07)
[2018-07-13] MEDS: OMEPRAZOLE 20 MG CAP PO SCH ×2 (08:32→20:06)
[2018-07-13] MEDS: MAGNESIUM OXIDE 400 MG TAB (MAG-OX) PO SCH ×3 (08:32→20:05)
[2018-07-13] MEDS: DOCUSATE SODIUM 100 MG CAP PO SCH ×3 (08:32→20:05)
[2018-07-13] MEDS: DOXYCYCLINE HYCLATE 100 MG TAB PO SCH ×2 (08:32→20:05)
[2018-07-13] MEDS: amLODIPine 5 MG TAB PO SCH ×2 (08:32→20:07)
[2018-07-13] MEDS: CLOTRIMAZOLE 1% TOPICAL CREAM 30GM TOP SCH ×2 (08:33→20:08)
[2018-07-13 11:13] LABS: INR 2.08; PROTHROMBIN TIME 23.7 SECONDS (12.1-14.4)
[2018-07-13] MEDS: WARFARIN SOD 5 MG TAB PO SCH (16:29)
[2018-07-13] MEDS: ATORVASTATIN 10 MG TAB PO SCH (20:07)
[2018-07-13] MEDS: AMITRIPTYLINE 50 MG TAB PO SCH (20:07)
[2018-07-14] MEDS: PERCOCET 5MG/325MG TAB PO PRN ×5 (04:16→22:20)
[2018-07-14] MEDS: HEPARIN SOD (PORCINE) 5000 UNITS/ML VIAL SC SCH ×3 (05:43→21:53)
[2018-07-14 06:00] VITALS: BP 152/72
[2018-07-14 06:40] LABS: INR 2.08; PROTHROMBIN TIME 23.8 SECONDS (12.1-14.4)
[2018-07-14] MEDS: DOCUSATE SODIUM 100 MG CAP PO SCH ×2 (09:00→21:59)
[2018-07-14] MEDS: HumaLOG INSULIN (NovoLOG) PER UNIT SC SCH ×4 (09:05→21:00)
[2018-07-14] MEDS: MULTIVITAMINS/MINERALS THERAP 1 TAB PO SCH (09:06)
[2018-07-14] MEDS: MAGNESIUM OXIDE 400 MG TAB (MAG-OX) PO SCH ×3 (09:06→21:59)
[2018-07-14] MEDS: LEVEMIR (INSULIN DETEMIR) 1 UNITS/0.01ML SC SCH ×2 (09:06→21:53)
[2018-07-14] MEDS: OMEPRAZOLE 20 MG CAP PO SCH ×2 (09:06→21:59)
[2018-07-14] MEDS: metFORMIN (GLUCOPHAGE) 1000 MG TABLET PO SCH (09:07)
[2018-07-14] MEDS: FUROSEMIDE 20 MG TAB PO SCH (09:08)
[2018-07-14] MEDS: ASPIRIN 81 MG ENTERIC TAB PO SCH (09:08)
[2018-07-14] MEDS: DOXYCYCLINE HYCLATE 100 MG TAB PO SCH ×2 (09:08→21:59)
[2018-07-14] MEDS: FAMOTIDINE 20 MG TAB PO SCH ×2 (09:08→21:59)
[2018-07-14] MEDS: VITAMIN D 1,000 INTERNATIONAL UNITS TABLET PO SCH ×2 (09:08→21:58)
[2018-07-14] MEDS: buPROPion **XL** TABLET 150MG (WELLBUTRIN XL) PO SCH (09:08)
[2018-07-14] MEDS: ENALAPRIL MALEATE 10 MG TAB PO SCH ×2 (09:12→21:58)
[2018-07-14] MEDS: CLOTRIMAZOLE 1% TOPICAL CREAM 30GM TOP SCH ×2 (09:13→22:01)
[2018-07-14] MEDS: **hydrALAZINE HCL** 25 MG TAB PO SCH ×3 (09:13→21:57)
[2018-07-14] MEDS: CARVedilol 12.5 MG TAB PO SCH ×2 (09:13→21:57)
[2018-07-14] MEDS: amLODIPine 5 MG TAB PO SCH ×2 (09:13→22:00)
[2018-07-14 16:30] VITALS: BP 144/66
[2018-07-14] MEDS: WARFARIN SOD 5 MG TAB PO SCH (17:21)
[2018-07-14] MEDS: ATORVASTATIN 10 MG TAB PO SCH (21:59)
[2018-07-14] MEDS: AMITRIPTYLINE 50 MG TAB PO SCH (21:59)
[2018-07-15] MEDS: PERCOCET 5MG/325MG TAB PO PRN ×5 (03:12→21:29)
[2018-07-15] MEDS: HEPARIN SOD (PORCINE) 5000 UNITS/ML VIAL SC SCH ×3 (05:50→21:22)
[2018-07-15 06:00] VITALS: BP 136/63
[2018-07-15 07:01] LABS: INR 1.91; PROTHROMBIN TIME 22.2 SECONDS (12.1-14.4)
[2018-07-15] MEDS: **hydrALAZINE HCL** 25 MG TAB PO SCH ×3 (07:58→21:27)
[2018-07-15] MEDS: VITAMIN D 1,000 INTERNATIONAL UNITS TABLET PO SCH ×2 (07:58→21:31)
[2018-07-15] MEDS: MAGNESIUM OXIDE 400 MG TAB (MAG-OX) PO SCH ×3 (07:59→21:31)
[2018-07-15] MEDS: CLOTRIMAZOLE 1% TOPICAL CREAM 30GM TOP SCH ×2 (08:00→21:33)
[2018-07-15] MEDS: metFORMIN (GLUCOPHAGE) 1000 MG TABLET PO SCH (08:00)
[2018-07-15] MEDS: buPROPion **XL** TABLET 150MG (WELLBUTRIN XL) PO SCH (08:00)
[2018-07-15] MEDS: ASPIRIN 81 MG ENTERIC TAB PO SCH (08:00)
[2018-07-15] MEDS: DOXYCYCLINE HYCLATE 100 MG TAB PO SCH ×2 (08:00→21:28)
[2018-07-15] MEDS: LEVEMIR (INSULIN DETEMIR) 1 UNITS/0.01ML SC SCH ×2 (08:00→21:30)
[2018-07-15] MEDS: FAMOTIDINE 20 MG TAB PO SCH ×2 (08:01→21:32)
[2018-07-15] MEDS: CARVedilol 12.5 MG TAB PO SCH ×2 (08:01→21:32)
[2018-07-15] MEDS: FUROSEMIDE 20 MG TAB PO SCH (08:01)
[2018-07-15] MEDS: OMEPRAZOLE 20 MG CAP PO SCH ×2 (08:01→21:28)
[2018-07-15] MEDS: ENALAPRIL MALEATE 10 MG TAB PO SCH ×2 (08:01→21:31)
[2018-07-15] MEDS: amLODIPine 5 MG TAB PO SCH ×2 (08:01→21:30)
[2018-07-15] MEDS: MULTIVITAMINS/MINERALS THERAP 1 TAB PO SCH (08:01)
[2018-07-15] MEDS: HumaLOG INSULIN (NovoLOG) PER UNIT SC SCH ×4 (08:02→21:00)
[2018-07-15] MEDS: DOCUSATE SODIUM 100 MG CAP PO SCH ×2 (08:02→21:30)
--- NOTE | 2018-07-15 14:12 | IPNPDOC ---
Text Note Date of Service The patient was seen on 07/15/18. NOTE Subjective: Patient is seen and examined at bedside. He denies any abdominal pain, constipation, diarrhea, urinary discomfort, chest pain, shortness of breath or palpitations. He states that over the last few days he has felt a little congested. He would like some Mucinex. He is still awaiting placement, he has no acute concerns today. Objective: Vitals (See below) General: Sitting up in bed, no acute distress HEENT: Atraumatic, normocephalic. Mucous membranes are moist HEART: Regular rate and rhythm; and no murmurs, gallops, or rubs Lungs: Good auscultation bilaterally; no wheezes, rhonchi or rales Abdomen: Obese, normal active bowel sounds, no pain to palpation Extremities: No lower extremity edema. His left foot has a wound VAC in place Assessment and plan: MRSA Left heal ulcer / Chronic osteomyelitis - Currently patient notes that he's feeling better, does not experience much pain - Patient's left foot as a wound VAC - Currently, patient is nonweightbearing on his left foot - c/w Doxycycline for 1 month total (Stop date of 07/17) - Dr. Izaguirre, and Infectious disease, Dr. Ivory, on consultation; appreciate their input History of right upper extremity DVT -Most recent INR 1.91, subtherapeutic. His last right upper extremity ultrasound was about a year ago. We will reassess the need for warfarin with another right upper extremity ultrasound to see whether or not he still has a DVT. Will also consult Dr. Go, as the patient has had lysis and angioplasty, to see whether or not the patient needs lifelong anticoagulation HTN - BP well controlled - c/w Amlodipine, Carvedilol, Enalapril, Hydralazine, Furosemide DM2 with Neuropathy - c/w Metformin - c/w ISS and Levemir DLP - c/w Atorvastatin and ASA 81 DJD - c/w Tylenol PRN Depression - Amitriptyline, Bupropion, GERD - c/w Omeprazole and Famotidine DVT prophylaxis - c/w full anticoagulation with Coumadin Disposition: - Continue with physical therapy - Pending right upper extremity ultrasound to see whether or not the patient needs lifelong anticoagulation - Looking into placement options VS,Fishbone, I+O VS, Fishbone, I+O Vital Signs Date Time Temp Pulse Resp B/P (MAP) Pulse Ox O2 Delivery O2 Flow Rate FiO2 07/15/18 13:04 18 07/15/18 07:58 142/82 07/15/18 06:00 96.7 76 93 I&O- Last 24 Hours up to 6 AM 07/15/18 05:59 Intake Total 1280 ml Output Total 4620 ml Balance -3340 ml GME ATTESTATION GME ATTESTATION My faculty preceptor for this patient encounter was physically present during the encounter and was fully available. All aspects of the patient interview, examination, medical decision making process, and medical care plan development were reviewed and approved by the faculty preceptor. The faculty preceptor is aware and concurs with the plan as stated in the body of this note and will attest to such by his/her cosignature. ADA VILLAREAL DO Jul 15, 2018 14:12
[2018-07-15] MEDS: guaiFENesin ER 600 MG TAB PO SCH ×2 (14:31→21:30)
[2018-07-15] MEDS: WARFARIN SOD 5 MG TAB PO SCH (16:39)
--- NOTE | 2018-07-15 17:39 | REP ---
Right upper extremity deep vein duplex ultrasound: There is nonocclusive thrombus in the right axillary vein. No other thrombus is identified in the left upper extremity deep veins. Electronically Signed by Sesar Ashton MD 07/15/2018 05:31 P
[2018-07-15] MEDS: CEPACOL LOZENGE PO PRN (18:56)
[2018-07-15] MEDS: ATORVASTATIN 10 MG TAB PO SCH (21:27)
[2018-07-15] MEDS: AMITRIPTYLINE 50 MG TAB PO SCH (21:32)
[2018-07-16] MEDS: PERCOCET 5MG/325MG TAB PO PRN ×5 (04:19→22:22)
[2018-07-16] MEDS: HEPARIN SOD (PORCINE) 5000 UNITS/ML VIAL SC SCH ×3 (05:59→22:10)
[2018-07-16 06:00] VITALS: BP 135/60
[2018-07-16 06:42] LABS: INR 1.94; PROTHROMBIN TIME 22.5 SECONDS (12.1-14.4)
[2018-07-16] MEDS: ASPIRIN 81 MG ENTERIC TAB PO SCH (08:43)
[2018-07-16] MEDS: FUROSEMIDE 20 MG TAB PO SCH (08:43)
[2018-07-16] MEDS: HumaLOG INSULIN (NovoLOG) PER UNIT SC SCH ×4 (08:43→21:00)
[2018-07-16] MEDS: metFORMIN (GLUCOPHAGE) 1000 MG TABLET PO SCH (08:44)
[2018-07-16] MEDS: MAGNESIUM OXIDE 400 MG TAB (MAG-OX) PO SCH ×3 (08:49→22:09)
[2018-07-16] MEDS: guaiFENesin ER 600 MG TAB PO SCH ×2 (08:49→22:08)
[2018-07-16] MEDS: amLODIPine 5 MG TAB PO SCH ×2 (08:50→22:10)
[2018-07-16] MEDS: buPROPion **XL** TABLET 150MG (WELLBUTRIN XL) PO SCH (08:50)
[2018-07-16] MEDS: FAMOTIDINE 20 MG TAB PO SCH ×2 (08:50→22:10)
[2018-07-16] MEDS: VITAMIN D 1,000 INTERNATIONAL UNITS TABLET PO SCH ×2 (08:50→22:06)
[2018-07-16] MEDS: **hydrALAZINE HCL** 25 MG TAB PO SCH ×3 (08:51→22:08)
[2018-07-16] MEDS: CARVedilol 12.5 MG TAB PO SCH ×2 (08:51→22:09)
[2018-07-16] MEDS: DOCUSATE SODIUM 100 MG CAP PO SCH ×2 (08:51→21:00)
[2018-07-16] MEDS: DOXYCYCLINE HYCLATE 100 MG TAB PO SCH ×2 (08:51→22:10)
[2018-07-16] MEDS: MULTIVITAMINS/MINERALS THERAP 1 TAB PO SCH (08:51)
[2018-07-16] MEDS: ENALAPRIL MALEATE 10 MG TAB PO SCH ×2 (08:51→22:09)
[2018-07-16] MEDS: OMEPRAZOLE 20 MG CAP PO SCH ×2 (08:52→22:11)
[2018-07-16] MEDS: CLOTRIMAZOLE 1% TOPICAL CREAM 30GM TOP SCH ×2 (08:52→22:11)
[2018-07-16] MEDS: LEVEMIR (INSULIN DETEMIR) 1 UNITS/0.01ML SC SCH ×2 (08:53→22:05)
[2018-07-16] MEDS: WARFARIN SOD 5 MG TAB PO SCH (17:38)
[2018-07-16] MEDS: AMITRIPTYLINE 50 MG TAB PO SCH (21:00)
[2018-07-16] MEDS: ATORVASTATIN 10 MG TAB PO SCH (22:10)
[2018-07-17] MEDS: PERCOCET 5MG/325MG TAB PO PRN ×5 (02:32→21:15)
[2018-07-17 06:00] VITALS: BP 137/71
[2018-07-17 06:22] LABS: INR 1.91; PROTHROMBIN TIME 22.2 SECONDS (12.1-14.4)
[2018-07-17] MEDS: HEPARIN SOD (PORCINE) 5000 UNITS/ML VIAL SC SCH ×3 (06:41→21:17)
[2018-07-17] MEDS: DOCUSATE SODIUM 100 MG CAP PO SCH ×2 (09:00→21:00)
[2018-07-17] MEDS: CLOTRIMAZOLE 1% TOPICAL CREAM 30GM TOP SCH ×2 (09:00→21:00)
[2018-07-17] MEDS: HumaLOG INSULIN (NovoLOG) PER UNIT SC SCH ×4 (09:57→21:16)
[2018-07-17] MEDS: LEVEMIR (INSULIN DETEMIR) 1 UNITS/0.01ML SC SCH ×2 (09:58→21:16)
[2018-07-17] MEDS: metFORMIN (GLUCOPHAGE) 1000 MG TABLET PO SCH (09:59)
[2018-07-17] MEDS: **hydrALAZINE HCL** 25 MG TAB PO SCH ×3 (10:05→21:17)
[2018-07-17] MEDS: ASPIRIN 81 MG ENTERIC TAB PO SCH (10:06)
[2018-07-17] MEDS: CARVedilol 12.5 MG TAB PO SCH ×2 (10:06→21:18)
[2018-07-17] MEDS: FUROSEMIDE 20 MG TAB PO SCH (10:07)
[2018-07-17] MEDS: MAGNESIUM OXIDE 400 MG TAB (MAG-OX) PO SCH ×3 (10:09→21:18)
[2018-07-17] MEDS: guaiFENesin ER 600 MG TAB PO SCH ×2 (10:09→21:18)
[2018-07-17] MEDS: amLODIPine 5 MG TAB PO SCH ×2 (10:10→21:19)
[2018-07-17] MEDS: FAMOTIDINE 20 MG TAB PO SCH ×2 (10:10→21:18)
[2018-07-17] MEDS: OMEPRAZOLE 20 MG CAP PO SCH ×2 (10:11→21:18)
[2018-07-17] MEDS: MULTIVITAMINS/MINERALS THERAP 1 TAB PO SCH (10:11)
[2018-07-17] MEDS: DOXYCYCLINE HYCLATE 100 MG TAB PO SCH (10:12)
[2018-07-17] MEDS: ENALAPRIL MALEATE 10 MG TAB PO SCH ×2 (10:12→21:18)
[2018-07-17] MEDS: VITAMIN D 1,000 INTERNATIONAL UNITS TABLET PO SCH ×2 (10:13→21:16)
[2018-07-17] MEDS: buPROPion **XL** TABLET 150MG (WELLBUTRIN XL) PO SCH (10:13)
[2018-07-17] MEDS: DICLOFENAC EPOLAMINE 1.3 % PATCH TOP SCH (17:26)
[2018-07-17] MEDS: WARFARIN SOD 5 MG TAB PO SCH (17:27)
[2018-07-17 20:00] VITALS: BP 151/70
[2018-07-17] MEDS: ATORVASTATIN 10 MG TAB PO SCH (21:19)
[2018-07-17] MEDS: AMITRIPTYLINE 50 MG TAB PO SCH (21:19)
[2018-07-18] MEDS: PERCOCET 5MG/325MG TAB PO PRN ×6 (01:18→22:40)
[2018-07-18] MEDS: HEPARIN SOD (PORCINE) 5000 UNITS/ML VIAL SC SCH ×3 (05:33→22:32)
[2018-07-18] MEDS: DICLOFENAC EPOLAMINE 1.3 % PATCH TOP SCH ×2 (05:34→17:22)
[2018-07-18 06:00] VITALS: BP 144/78
[2018-07-18 06:33] LABS: INR 1.9; PROTHROMBIN TIME 22.1 SECONDS (12.1-14.4)
[2018-07-18] MEDS: HumaLOG INSULIN (NovoLOG) PER UNIT SC SCH ×4 (08:48→22:00)
[2018-07-18] MEDS: CLOTRIMAZOLE 1% TOPICAL CREAM 30GM TOP SCH ×2 (08:48→22:33)
[2018-07-18] MEDS: LEVEMIR (INSULIN DETEMIR) 1 UNITS/0.01ML SC SCH ×2 (08:49→22:33)
[2018-07-18] MEDS: guaiFENesin ER 600 MG TAB PO SCH ×2 (08:49→22:34)
[2018-07-18] MEDS: VITAMIN D 1,000 INTERNATIONAL UNITS TABLET PO SCH ×2 (08:50→22:38)
[2018-07-18] MEDS: DOCUSATE SODIUM 100 MG CAP PO SCH ×2 (09:00→22:40)
[2018-07-18] MEDS: ENALAPRIL MALEATE 10 MG TAB PO SCH ×2 (09:01→22:34)
[2018-07-18] MEDS: **hydrALAZINE HCL** 25 MG TAB PO SCH ×3 (09:01→22:36)
[2018-07-18] MEDS: FUROSEMIDE 20 MG TAB PO SCH (09:02)
[2018-07-18] MEDS: ASPIRIN 81 MG ENTERIC TAB PO SCH (09:02)
[2018-07-18] MEDS: OMEPRAZOLE 20 MG CAP PO SCH ×2 (09:02→22:38)
[2018-07-18] MEDS: MULTIVITAMINS/MINERALS THERAP 1 TAB PO SCH (09:02)
[2018-07-18] MEDS: MAGNESIUM OXIDE 400 MG TAB (MAG-OX) PO SCH ×3 (09:03→22:35)
[2018-07-18] MEDS: FAMOTIDINE 20 MG TAB PO SCH ×2 (09:03→22:36)
[2018-07-18] MEDS: CARVedilol 12.5 MG TAB PO SCH ×2 (09:04→22:37)
[2018-07-18] MEDS: buPROPion **XL** TABLET 150MG (WELLBUTRIN XL) PO SCH (09:05)
[2018-07-18] MEDS: amLODIPine 5 MG TAB PO SCH ×2 (09:05→22:39)
[2018-07-18] MEDS: metFORMIN (GLUCOPHAGE) 1000 MG TABLET PO SCH (09:05)
[2018-07-18 14:00] VITALS: BP_SYST 144; BP_SYST 157; BP_DIAS 72; BP_DIAS 84
[2018-07-18] MEDS: WARFARIN SOD 4 MG TAB PO SCH (17:21)
[2018-07-18] MEDS: WARFARIN SOD 5 MG TAB PO SCH (17:21)
[2018-07-18] MEDS: AMITRIPTYLINE 50 MG TAB PO SCH (22:38)
[2018-07-18] MEDS: ATORVASTATIN 10 MG TAB PO SCH (22:39)
[2018-07-19] MEDS: PERCOCET 5MG/325MG TAB PO PRN ×4 (03:19→20:11)
[2018-07-19] MEDS: DICLOFENAC EPOLAMINE 1.3 % PATCH TOP SCH ×2 (05:20→16:24)
[2018-07-19] MEDS: HEPARIN SOD (PORCINE) 5000 UNITS/ML VIAL SC SCH (05:20)
[2018-07-19 06:00] VITALS: BP 130/72
[2018-07-19 06:08] LABS: HEMATOCRIT 45.8 % (42.0-52.0); HEMOGLOBIN 14.1 g/dl (13.5-17.5); MEAN CORPUSCULAR HEMOGLOBIN 24.3 pg (27.0-33.0); MEAN CORPUSCULAR HGB CONC 30.8 g/dl (32.0-36.5); PLATELET COUNT, AUTOMATED 462 10^3/uL (150-450); WHITE BLOOD COUNT 9.6 10^3/uL (4.0-10.0)
[2018-07-19 06:30] LABS: CALCIUM LEVEL 9.7 MG/DL (8.5-10.1); CREATININE FOR GFR 1.81 MG/DL (0.70-1.30); GLOMERULAR FILTRATION RATE 41.3 (>56); INR 2.03; POTASSIUM SERUM 4.1 MEQ/L (3.5-5.1); PROTHROMBIN TIME 23.3 SECONDS (12.1-14.4)
[2018-07-19] MEDS: VITAMIN D 1,000 INTERNATIONAL UNITS TABLET PO SCH ×2 (07:53→20:09)
[2018-07-19] MEDS: HumaLOG INSULIN (NovoLOG) PER UNIT SC SCH ×4 (07:53→21:00)
[2018-07-19] MEDS: MULTIVITAMINS/MINERALS THERAP 1 TAB PO SCH (07:54)
[2018-07-19] MEDS: ENALAPRIL MALEATE 10 MG TAB PO SCH ×2 (07:54→20:10)
[2018-07-19] MEDS: ASPIRIN 81 MG ENTERIC TAB PO SCH (07:54)
[2018-07-19] MEDS: amLODIPine 5 MG TAB PO SCH ×2 (07:54→20:13)
[2018-07-19] MEDS: CARVedilol 12.5 MG TAB PO SCH ×2 (07:54→20:10)
[2018-07-19] MEDS: OMEPRAZOLE 20 MG CAP PO SCH ×2 (07:55→20:12)
[2018-07-19] MEDS: FUROSEMIDE 20 MG TAB PO SCH (07:55)
[2018-07-19] MEDS: MAGNESIUM OXIDE 400 MG TAB (MAG-OX) PO SCH ×3 (07:55→20:12)
[2018-07-19] MEDS: metFORMIN (GLUCOPHAGE) 1000 MG TABLET PO SCH (07:55)
[2018-07-19] MEDS: **hydrALAZINE HCL** 25 MG TAB PO SCH ×3 (07:55→20:12)
[2018-07-19] MEDS: guaiFENesin ER 600 MG TAB PO SCH ×2 (07:56→20:12)
[2018-07-19] MEDS: DOCUSATE SODIUM 100 MG CAP PO SCH ×2 (07:56→20:09)
[2018-07-19] MEDS: FAMOTIDINE 20 MG TAB PO SCH ×2 (07:56→20:13)
[2018-07-19] MEDS: CLOTRIMAZOLE 1% TOPICAL CREAM 30GM TOP SCH ×2 (07:57→20:11)
[2018-07-19] MEDS: LEVEMIR (INSULIN DETEMIR) 1 UNITS/0.01ML SC SCH ×2 (07:57→21:38)
[2018-07-19] MEDS: buPROPion **XL** TABLET 150MG (WELLBUTRIN XL) PO SCH (07:58)
[2018-07-19 14:00] VITALS: BP 137/85
[2018-07-19] MEDS: WARFARIN SOD 5 MG TAB PO SCH (16:23)
[2018-07-19] MEDS: WARFARIN SOD 4 MG TAB PO SCH (16:23)
[2018-07-19] MEDS: ATORVASTATIN 10 MG TAB PO SCH (20:09)
[2018-07-19] MEDS: AMITRIPTYLINE 50 MG TAB PO SCH (20:12)
[2018-07-20] MEDS: PERCOCET 5MG/325MG TAB PO PRN ×5 (01:18→18:55)
[2018-07-20] MEDS: DICLOFENAC EPOLAMINE 1.3 % PATCH TOP SCH ×2 (05:39→17:46)
[2018-07-20 06:00] VITALS: BP 177/77
[2018-07-20 06:29] LABS: INR 2.45; PROTHROMBIN TIME 27.1 SECONDS (12.1-14.4)
[2018-07-20] MEDS: ASPIRIN 81 MG ENTERIC TAB PO SCH (07:44)
[2018-07-20] MEDS: HumaLOG INSULIN (NovoLOG) PER UNIT SC SCH ×4 (07:44→21:00)
[2018-07-20] MEDS: VITAMIN D 1,000 INTERNATIONAL UNITS TABLET PO SCH ×2 (07:45→21:19)
[2018-07-20] MEDS: FUROSEMIDE 20 MG TAB PO SCH (07:45)
[2018-07-20] MEDS: **hydrALAZINE HCL** 25 MG TAB PO SCH ×3 (07:46→21:22)
[2018-07-20] MEDS: MAGNESIUM OXIDE 400 MG TAB (MAG-OX) PO SCH ×3 (07:46→21:20)
[2018-07-20] MEDS: amLODIPine 5 MG TAB PO SCH ×2 (07:47→21:22)
[2018-07-20] MEDS: metFORMIN (GLUCOPHAGE) 1000 MG TABLET PO SCH (07:47)
[2018-07-20] MEDS: guaiFENesin ER 600 MG TAB PO SCH ×2 (07:47→21:19)
[2018-07-20] MEDS: ENALAPRIL MALEATE 10 MG TAB PO SCH ×2 (07:47→21:23)
[2018-07-20] MEDS: MULTIVITAMINS/MINERALS THERAP 1 TAB PO SCH (07:47)
[2018-07-20] MEDS: FAMOTIDINE 20 MG TAB PO SCH ×2 (07:47→21:18)
[2018-07-20] MEDS: OMEPRAZOLE 20 MG CAP PO SCH ×2 (07:48→21:18)
[2018-07-20] MEDS: CARVedilol 12.5 MG TAB PO SCH ×2 (07:48→21:22)
[2018-07-20] MEDS: DOCUSATE SODIUM 100 MG CAP PO SCH ×2 (07:48→21:00)
[2018-07-20] MEDS: buPROPion **XL** TABLET 150MG (WELLBUTRIN XL) PO SCH (07:49)
[2018-07-20] MEDS: LEVEMIR (INSULIN DETEMIR) 1 UNITS/0.01ML SC SCH ×2 (07:49→21:21)
[2018-07-20] MEDS: CLOTRIMAZOLE 1% TOPICAL CREAM 30GM TOP SCH ×2 (07:49→21:23)
[2018-07-20] MEDS: WARFARIN SOD 4 MG TAB PO SCH (17:45)
[2018-07-20] MEDS: WARFARIN SOD 5 MG TAB PO SCH (17:46)
[2018-07-20] MEDS: AMITRIPTYLINE 50 MG TAB PO SCH (21:19)
[2018-07-20] MEDS: ATORVASTATIN 10 MG TAB PO SCH (21:21)
[2018-07-20 22:00] VITALS: BP_SYST 178
[2018-07-21] MEDS: PERCOCET 5MG/325MG TAB PO PRN ×6 (00:28→22:33)
[2018-07-21] MEDS: DICLOFENAC EPOLAMINE 1.3 % PATCH TOP SCH ×2 (05:48→17:31)
[2018-07-21 06:00] VITALS: BP 158/78
[2018-07-21] MEDS: DOCUSATE SODIUM 100 MG CAP PO SCH ×2 (09:00→21:00)
[2018-07-21] MEDS: HumaLOG INSULIN (NovoLOG) PER UNIT SC SCH ×4 (09:35→21:24)
[2018-07-21] MEDS: CLOTRIMAZOLE 1% TOPICAL CREAM 30GM TOP SCH ×2 (09:36→21:22)
[2018-07-21] MEDS: LEVEMIR (INSULIN DETEMIR) 1 UNITS/0.01ML SC SCH ×2 (09:36→21:23)
[2018-07-21] MEDS: FAMOTIDINE 20 MG TAB PO SCH ×2 (09:37→21:20)
[2018-07-21] MEDS: FUROSEMIDE 20 MG TAB PO SCH (09:37)
[2018-07-21] MEDS: metFORMIN (GLUCOPHAGE) 1000 MG TABLET PO SCH (09:37)
[2018-07-21] MEDS: VITAMIN D 1,000 INTERNATIONAL UNITS TABLET PO SCH ×2 (09:37→21:19)
[2018-07-21] MEDS: **hydrALAZINE HCL** 25 MG TAB PO SCH ×3 (09:40→21:20)
[2018-07-21] MEDS: MULTIVITAMINS/MINERALS THERAP 1 TAB PO SCH (09:40)
[2018-07-21] MEDS: ASPIRIN 81 MG ENTERIC TAB PO SCH (09:41)
[2018-07-21] MEDS: amLODIPine 5 MG TAB PO SCH ×2 (09:41→21:23)
[2018-07-21] MEDS: guaiFENesin ER 600 MG TAB PO SCH ×2 (09:41→21:22)
[2018-07-21] MEDS: OMEPRAZOLE 20 MG CAP PO SCH ×2 (09:41→21:22)
[2018-07-21] MEDS: MAGNESIUM OXIDE 400 MG TAB (MAG-OX) PO SCH ×3 (09:42→21:22)
[2018-07-21] MEDS: CARVedilol 12.5 MG TAB PO SCH ×2 (09:44→21:21)
[2018-07-21] MEDS: buPROPion **XL** TABLET 150MG (WELLBUTRIN XL) PO SCH (09:45)
[2018-07-21] MEDS: ENALAPRIL MALEATE 10 MG TAB PO SCH ×2 (09:45→21:20)
[2018-07-21] MEDS: WARFARIN SOD 4 MG TAB PO SCH (17:32)
[2018-07-21] MEDS: WARFARIN SOD 5 MG TAB PO SCH (17:32)
[2018-07-21] MEDS: AMITRIPTYLINE 50 MG TAB PO SCH (21:21)
[2018-07-21] MEDS: ATORVASTATIN 10 MG TAB PO SCH (21:23)
[2018-07-21 22:00] VITALS: BP 140/79
[2018-07-22] MEDS: PERCOCET 5MG/325MG TAB PO PRN ×5 (05:38→22:57)
[2018-07-22] MEDS: DICLOFENAC EPOLAMINE 1.3 % PATCH TOP SCH ×2 (05:38→17:58)
[2018-07-22 06:00] VITALS: BP 148/75
[2018-07-22] MEDS: DOCUSATE SODIUM 100 MG CAP PO SCH ×2 (09:00→21:00)
[2018-07-22] MEDS: LEVEMIR (INSULIN DETEMIR) 1 UNITS/0.01ML SC SCH ×2 (10:20→21:56)
[2018-07-22] MEDS: HumaLOG INSULIN (NovoLOG) PER UNIT SC SCH ×4 (10:20→21:56)
[2018-07-22] MEDS: MULTIVITAMINS/MINERALS THERAP 1 TAB PO SCH (10:21)
[2018-07-22] MEDS: guaiFENesin ER 600 MG TAB PO SCH ×2 (10:23→21:53)
[2018-07-22] MEDS: OMEPRAZOLE 20 MG CAP PO SCH ×2 (10:23→21:53)
[2018-07-22] MEDS: buPROPion **XL** TABLET 150MG (WELLBUTRIN XL) PO SCH (10:23)
[2018-07-22] MEDS: VITAMIN D 1,000 INTERNATIONAL UNITS TABLET PO SCH ×2 (10:23→21:53)
[2018-07-22] MEDS: ASPIRIN 81 MG ENTERIC TAB PO SCH (10:24)
[2018-07-22] MEDS: metFORMIN (GLUCOPHAGE) 1000 MG TABLET PO SCH (10:24)
[2018-07-22] MEDS: FUROSEMIDE 20 MG TAB PO SCH (10:24)
[2018-07-22] MEDS: MAGNESIUM OXIDE 400 MG TAB (MAG-OX) PO SCH ×3 (10:24→21:54)
[2018-07-22] MEDS: FAMOTIDINE 20 MG TAB PO SCH ×2 (10:25→21:53)
[2018-07-22] MEDS: CLOTRIMAZOLE 1% TOPICAL CREAM 30GM TOP SCH ×2 (10:25→21:58)
[2018-07-22] MEDS: amLODIPine 5 MG TAB PO SCH ×2 (10:28→21:54)
[2018-07-22] MEDS: CARVedilol 12.5 MG TAB PO SCH ×2 (10:28→21:55)
[2018-07-22] MEDS: ENALAPRIL MALEATE 10 MG TAB PO SCH ×2 (10:29→21:57)
[2018-07-22] MEDS: **hydrALAZINE HCL** 25 MG TAB PO SCH ×3 (10:29→21:55)
[2018-07-22] MEDS: WARFARIN SOD 5 MG TAB PO SCH (17:56)
[2018-07-22] MEDS: WARFARIN SOD 4 MG TAB PO SCH (17:57)
[2018-07-22] MEDS: AMITRIPTYLINE 50 MG TAB PO SCH (21:53)
[2018-07-22] MEDS: ATORVASTATIN 10 MG TAB PO SCH (21:54)
[2018-07-23] MEDS: PERCOCET 5MG/325MG TAB PO PRN ×6 (03:30→23:21)
[2018-07-23] MEDS: DICLOFENAC EPOLAMINE 1.3 % PATCH TOP SCH ×2 (05:35→18:00)
[2018-07-23 06:00] VITALS: BP 161/72
[2018-07-23] MEDS: DOCUSATE SODIUM 100 MG CAP PO SCH ×2 (09:00→20:11)
--- NOTE | 2018-07-23 09:32 | IPNPDOC ---
Text Note Date of Service The patient was seen on 07/23/18. NOTE Subjective: Patient is seen and examined in the hallway, as he is pushing his wheelchair. He denies any abdominal pain, constipation, diarrhea, urinary discomfort, chest pain, shortness of breath or palpitations. He is still awaiting placement, he has no acute concerns today. Objective: Vitals (See below) General: Sitting up in his wheelchair, no acute distress HEENT: Atraumatic, normocephalic. Mucous membranes are moist HEART: Regular rate and rhythm; and no murmurs, gallops, or rubs Lungs: Good auscultation bilaterally; no wheezes, rhonchi or rales Abdomen: Obese, normal active bowel sounds, no pain to palpation Extremities: No lower extremity edema. Assessment and plan: MRSA Left heal ulcer / Chronic osteomyelitis - Currently patient notes that he's feeling better, does not experience much pain - Currently, patient is nonweightbearing on his left foot - Patient has finished a course of doxycycline - Dr. Izaguirre, and Infectious disease, Dr. Ivory, on consultation; appreciate their input History of right upper extremity DVT -Most recent INR 2.45, therapeutic. Right upper extremity ultrasound done 07/15/2018 still showed a nonocclusive thrombus in the right axillary vein. Patient will continue to need lifelong anticoagulation. HTN - BP well controlled - c/w Amlodipine, Carvedilol, Enalapril, Hydralazine, Furosemide DM2 with Neuropathy - c/w Metformin - c/w ISS and Levemir DLP - c/w Atorvastatin and ASA 81 DJD - c/w Tylenol PRN Depression - Amitriptyline, Bupropion, GERD - c/w Omeprazole and Famotidine DVT prophylaxis - c/w full anticoagulation with Coumadin Disposition: - Continue with physical therapy - Looking into placement options VS,Fishbone, I+O VS, Fishbone, I+O Vital Signs Date Time Temp Pulse Resp B/P (MAP) Pulse Ox O2 Delivery O2 Flow Rate FiO2 07/23/18 06:00 98.9 72 18 161/72 (101) 92 I&O- Last 24 Hours up to 6 AM 07/23/18 05:59 Intake Total 1920 ml Output Total 2000 ml Balance -80 ml GME ATTESTATION GME ATTESTATION My faculty preceptor for this patient encounter was physically present during the encounter and was fully available. All aspects of the patient interview, examination, medical decision making process, and medical care plan development were reviewed and approved by the faculty preceptor. The faculty preceptor is aware and concurs with the plan as stated in the body of this note and will attest to such by his/her cosignature. ADA VILLAREAL DO Jul 23, 2018 09:32
[2018-07-23] MEDS: metFORMIN (GLUCOPHAGE) 1000 MG TABLET PO SCH (09:59)
[2018-07-23] MEDS: CARVedilol 12.5 MG TAB PO SCH ×2 (10:02→20:11)
[2018-07-23] MEDS: ASPIRIN 81 MG ENTERIC TAB PO SCH (10:02)
[2018-07-23] MEDS: amLODIPine 5 MG TAB PO SCH ×2 (10:03→20:10)
[2018-07-23] MEDS: buPROPion **XL** TABLET 150MG (WELLBUTRIN XL) PO SCH (10:04)
[2018-07-23] MEDS: ENALAPRIL MALEATE 10 MG TAB PO SCH ×2 (10:07→20:09)
[2018-07-23] MEDS: CLOTRIMAZOLE 1% TOPICAL CREAM 30GM TOP SCH ×2 (10:07→20:12)
[2018-07-23] MEDS: VITAMIN D 1,000 INTERNATIONAL UNITS TABLET PO SCH ×2 (10:09→20:07)
[2018-07-23] MEDS: HumaLOG INSULIN (NovoLOG) PER UNIT SC SCH ×4 (10:23→20:12)
[2018-07-23] MEDS: OMEPRAZOLE 20 MG CAP PO SCH ×2 (10:23→20:10)
[2018-07-23] MEDS: LEVEMIR (INSULIN DETEMIR) 1 UNITS/0.01ML SC SCH ×2 (10:23→20:13)
[2018-07-23] MEDS: MAGNESIUM OXIDE 400 MG TAB (MAG-OX) PO SCH ×3 (10:25→20:08)
[2018-07-23] MEDS: **hydrALAZINE HCL** 25 MG TAB PO SCH ×3 (10:25→20:08)
[2018-07-23] MEDS: FAMOTIDINE 20 MG TAB PO SCH ×2 (10:25→20:10)
[2018-07-23] MEDS: FUROSEMIDE 20 MG TAB PO SCH (10:25)
[2018-07-23] MEDS: guaiFENesin ER 600 MG TAB PO SCH ×2 (10:26→20:10)
[2018-07-23] MEDS: MULTIVITAMINS/MINERALS THERAP 1 TAB PO SCH (10:27)
[2018-07-23] MEDS: WARFARIN SOD 4 MG TAB PO SCH (16:36)
[2018-07-23] MEDS: WARFARIN SOD 5 MG TAB PO SCH (16:37)
[2018-07-23] MEDS: AMITRIPTYLINE 50 MG TAB PO SCH (20:10)
[2018-07-23] MEDS: ATORVASTATIN 10 MG TAB PO SCH (20:11)
[2018-07-23 22:00] VITALS: BP 145/80
[2018-07-24] MEDS: PERCOCET 5MG/325MG TAB PO PRN ×6 (03:24→23:47)
[2018-07-24] MEDS: DICLOFENAC EPOLAMINE 1.3 % PATCH TOP SCH ×2 (05:28→17:45)
[2018-07-24 06:00] VITALS: BP 168/61
[2018-07-24] MEDS: HumaLOG INSULIN (NovoLOG) PER UNIT SC SCH ×4 (07:30→21:00)
[2018-07-24] MEDS: LEVEMIR (INSULIN DETEMIR) 1 UNITS/0.01ML SC SCH ×2 (08:16→21:00)
[2018-07-24] MEDS: metFORMIN (GLUCOPHAGE) 1000 MG TABLET PO SCH (08:17)
[2018-07-24] MEDS: **hydrALAZINE HCL** 25 MG TAB PO SCH ×3 (08:21→21:00)
[2018-07-24] MEDS: DOCUSATE SODIUM 100 MG CAP PO SCH ×3 (08:21→22:00)
[2018-07-24] MEDS: ASPIRIN 81 MG ENTERIC TAB PO SCH (08:23)
[2018-07-24] MEDS: CARVedilol 12.5 MG TAB PO SCH ×2 (08:23→21:00)
[2018-07-24] MEDS: FAMOTIDINE 20 MG TAB PO SCH ×2 (08:23→21:00)
[2018-07-24] MEDS: guaiFENesin ER 600 MG TAB PO SCH ×2 (08:24→21:00)
[2018-07-24] MEDS: MAGNESIUM OXIDE 400 MG TAB (MAG-OX) PO SCH ×3 (08:24→21:00)
[2018-07-24] MEDS: amLODIPine 5 MG TAB PO SCH ×2 (08:24→21:00)
[2018-07-24] MEDS: OMEPRAZOLE 20 MG CAP PO SCH ×2 (08:24→21:00)
[2018-07-24] MEDS: FUROSEMIDE 20 MG TAB PO SCH (08:24)
[2018-07-24] MEDS: MULTIVITAMINS/MINERALS THERAP 1 TAB PO SCH (08:24)
[2018-07-24] MEDS: VITAMIN D 1,000 INTERNATIONAL UNITS TABLET PO SCH ×2 (08:25→21:00)
[2018-07-24] MEDS: CLOTRIMAZOLE 1% TOPICAL CREAM 30GM TOP SCH ×2 (08:25→21:00)
[2018-07-24] MEDS: ENALAPRIL MALEATE 10 MG TAB PO SCH ×2 (08:25→21:00)
[2018-07-24] MEDS: buPROPion **XL** TABLET 150MG (WELLBUTRIN XL) PO SCH (08:25)
[2018-07-24] MEDS: WARFARIN SOD 5 MG TAB PO SCH (17:45)
[2018-07-24] MEDS: WARFARIN SOD 4 MG TAB PO SCH (17:45)
[2018-07-24] MEDS: ATORVASTATIN 10 MG TAB PO SCH (21:00)
[2018-07-24] MEDS: AMITRIPTYLINE 50 MG TAB PO SCH (21:00)
[2018-07-25] MEDS: PERCOCET 5MG/325MG TAB PO PRN ×5 (05:09→21:49)
[2018-07-25] MEDS: DICLOFENAC EPOLAMINE 1.3 % PATCH TOP SCH ×2 (05:46→17:40)
[2018-07-25 06:00] VITALS: BP 131/86
[2018-07-25] MEDS: HumaLOG INSULIN (NovoLOG) PER UNIT SC SCH ×4 (07:30→21:00)
[2018-07-25] MEDS: metFORMIN (GLUCOPHAGE) 1000 MG TABLET PO SCH (08:18)
[2018-07-25] MEDS: **hydrALAZINE HCL** 25 MG TAB PO SCH ×3 (08:19→21:46)
[2018-07-25] MEDS: CARVedilol 12.5 MG TAB PO SCH ×2 (08:19→21:48)
[2018-07-25] MEDS: DOCUSATE SODIUM 100 MG CAP PO SCH (08:19)
[2018-07-25] MEDS: ASPIRIN 81 MG ENTERIC TAB PO SCH (08:20)
[2018-07-25] MEDS: MAGNESIUM OXIDE 400 MG TAB (MAG-OX) PO SCH ×3 (08:21→21:45)
[2018-07-25] MEDS: FUROSEMIDE 20 MG TAB PO SCH (08:21)
[2018-07-25] MEDS: amLODIPine 5 MG TAB PO SCH ×2 (08:21→21:47)
[2018-07-25] MEDS: guaiFENesin ER 600 MG TAB PO SCH ×2 (08:21→21:46)
[2018-07-25] MEDS: OMEPRAZOLE 20 MG CAP PO SCH ×2 (08:22→21:46)
[2018-07-25] MEDS: MULTIVITAMINS/MINERALS THERAP 1 TAB PO SCH (08:22)
[2018-07-25] MEDS: LEVEMIR (INSULIN DETEMIR) 1 UNITS/0.01ML SC SCH ×2 (08:22→21:44)
[2018-07-25] MEDS: buPROPion **XL** TABLET 150MG (WELLBUTRIN XL) PO SCH (08:22)
[2018-07-25] MEDS: ENALAPRIL MALEATE 10 MG TAB PO SCH ×2 (08:22→21:45)
[2018-07-25] MEDS: FAMOTIDINE 20 MG TAB PO SCH ×2 (08:22→21:47)
[2018-07-25] MEDS: VITAMIN D 1,000 INTERNATIONAL UNITS TABLET PO SCH ×2 (08:22→21:45)
[2018-07-25] MEDS: CLOTRIMAZOLE 1% TOPICAL CREAM 30GM TOP SCH ×2 (08:23→21:00)
[2018-07-25] MEDS: FLUTICASONE HFA 110 MCG 12 GM INHALER (FLOVENT) INH SCH ×2 (13:31→19:51)
[2018-07-25] MEDS: WARFARIN SOD 5 MG TAB PO SCH (17:25)
[2018-07-25] MEDS: WARFARIN SOD 4 MG TAB PO SCH (17:25)
[2018-07-25] MEDS: ATORVASTATIN 10 MG TAB PO SCH (21:46)
[2018-07-25] MEDS: AMITRIPTYLINE 50 MG TAB PO SCH (21:47)
[2018-07-26] MEDS: PERCOCET 5MG/325MG TAB PO PRN ×3 (02:57→21:05)
[2018-07-26] MEDS: DICLOFENAC EPOLAMINE 1.3 % PATCH TOP SCH ×2 (05:42→18:15)
[2018-07-26 06:00] VITALS: BP 143/73
[2018-07-26] MEDS: FLUTICASONE HFA 110 MCG 12 GM INHALER (FLOVENT) INH SCH ×2 (07:50→21:20)
[2018-07-26] MEDS: FUROSEMIDE 20 MG TAB PO SCH (08:40)
[2018-07-26] MEDS: VITAMIN D 1,000 INTERNATIONAL UNITS TABLET PO SCH ×2 (08:40→21:01)
[2018-07-26] MEDS: guaiFENesin ER 600 MG TAB PO SCH ×2 (08:42→21:08)
[2018-07-26] MEDS: amLODIPine 5 MG TAB PO SCH ×2 (08:42→21:03)
[2018-07-26] MEDS: metFORMIN (GLUCOPHAGE) 1000 MG TABLET PO SCH (08:42)
[2018-07-26] MEDS: CARVedilol 12.5 MG TAB PO SCH ×2 (08:43→21:04)
[2018-07-26] MEDS: FAMOTIDINE 20 MG TAB PO SCH ×2 (08:43→21:04)
[2018-07-26] MEDS: **hydrALAZINE HCL** 25 MG TAB PO SCH ×3 (08:43→21:02)
[2018-07-26] MEDS: buPROPion **XL** TABLET 150MG (WELLBUTRIN XL) PO SCH (08:44)
[2018-07-26] MEDS: MULTIVITAMINS/MINERALS THERAP 1 TAB PO SCH (08:44)
[2018-07-26] MEDS: MAGNESIUM OXIDE 400 MG TAB (MAG-OX) PO SCH ×3 (08:44→21:02)
[2018-07-26] MEDS: ENALAPRIL MALEATE 10 MG TAB PO SCH ×2 (08:45→21:03)
[2018-07-26] MEDS: DOCUSATE SODIUM 100 MG CAP PO SCH ×2 (08:46→21:03)
[2018-07-26] MEDS: ASPIRIN 81 MG ENTERIC TAB PO SCH (08:46)
[2018-07-26] MEDS: HumaLOG INSULIN (NovoLOG) PER UNIT SC SCH ×4 (08:46→21:00)
[2018-07-26] MEDS: LEVEMIR (INSULIN DETEMIR) 1 UNITS/0.01ML SC SCH ×2 (08:47→21:01)
[2018-07-26] MEDS: CLOTRIMAZOLE 1% TOPICAL CREAM 30GM TOP SCH ×2 (08:47→21:06)
[2018-07-26] MEDS: OMEPRAZOLE 20 MG CAP PO SCH ×2 (08:47→21:03)
[2018-07-26] MEDS ORDERED: ONDANSETRON 4MG/2ML VIAL (J2405) IV PRN (13:30)
[2018-07-26 13:52] LABS: INFLUENZA A AMPLIFICATION NEGATIVE (NEGATIVE); INFLUENZA B AMPLIFICATION NEGATIVE (NEGATIVE)
[2018-07-26] MEDS: MORPHINE 4 MG/ML 1ML VIAL/SYRINGE (J2270) IV PRN ×2 (14:52→18:59)
[2018-07-26] MEDS: WARFARIN SOD 4 MG TAB PO SCH (18:13)
[2018-07-26] MEDS: WARFARIN SOD 5 MG TAB PO SCH (18:14)
[2018-07-26] MEDS: AMITRIPTYLINE 50 MG TAB PO SCH (21:02)
[2018-07-26] MEDS: ATORVASTATIN 10 MG TAB PO SCH (21:03)
[2018-07-26 22:00] VITALS: BP 138/77
[2018-07-27] MEDS: PERCOCET 5MG/325MG TAB PO PRN ×6 (03:14→23:38)
[2018-07-27] MEDS: DICLOFENAC EPOLAMINE 1.3 % PATCH TOP SCH ×2 (05:18→18:17)
[2018-07-27 06:00] VITALS: BP 142/91
[2018-07-27] MEDS: FLUTICASONE HFA 110 MCG 12 GM INHALER (FLOVENT) INH SCH ×2 (07:42→20:39)
[2018-07-27] MEDS: DOCUSATE SODIUM 100 MG CAP PO SCH ×2 (09:00→20:52)
[2018-07-27] MEDS: MULTIVITAMINS/MINERALS THERAP 1 TAB PO SCH (09:43)
[2018-07-27] MEDS: ASPIRIN 81 MG ENTERIC TAB PO SCH (09:44)
[2018-07-27] MEDS: LEVEMIR (INSULIN DETEMIR) 1 UNITS/0.01ML SC SCH ×2 (09:44→20:51)
[2018-07-27] MEDS: guaiFENesin ER 600 MG TAB PO SCH ×2 (09:44→20:51)
[2018-07-27] MEDS: OMEPRAZOLE 20 MG CAP PO SCH ×2 (09:44→20:50)
[2018-07-27] MEDS: HumaLOG INSULIN (NovoLOG) PER UNIT SC SCH ×4 (09:44→21:00)
[2018-07-27] MEDS: MAGNESIUM OXIDE 400 MG TAB (MAG-OX) PO SCH ×3 (09:46→20:51)
[2018-07-27] MEDS: metFORMIN (GLUCOPHAGE) 1000 MG TABLET PO SCH (09:46)
[2018-07-27] MEDS: amLODIPine 5 MG TAB PO SCH ×2 (09:48→20:53)
[2018-07-27] MEDS: ENALAPRIL MALEATE 10 MG TAB PO SCH ×2 (09:49→20:52)
[2018-07-27] MEDS: FUROSEMIDE 20 MG TAB PO SCH (09:49)
[2018-07-27] MEDS: VITAMIN D 1,000 INTERNATIONAL UNITS TABLET PO SCH ×2 (09:49→20:50)
[2018-07-27] MEDS: buPROPion **XL** TABLET 150MG (WELLBUTRIN XL) PO SCH (09:50)
[2018-07-27] MEDS: FAMOTIDINE 20 MG TAB PO SCH ×2 (09:50→20:51)
[2018-07-27] MEDS: **hydrALAZINE HCL** 25 MG TAB PO SCH ×3 (09:50→20:50)
[2018-07-27] MEDS: CARVedilol 12.5 MG TAB PO SCH ×2 (09:50→20:52)
[2018-07-27] MEDS: CLOTRIMAZOLE 1% TOPICAL CREAM 30GM TOP SCH ×2 (09:51→21:00)
[2018-07-27 11:59] LABS: BASO # 0.1 10^3/uL (0.0-0.2); BASO % 0.8 % (0.0-1.0); EOS # 0.6 10^3/uL (0.0-0.50); EOS % 6.7 % (0.0-3.0); HEMATOCRIT 44.8 % (42.0-52.0); HEMOGLOBIN 13.8 g/dl (13.5-17.5); LYMPH # 1.7 10^3/uL (1.5-4.5); LYMPH % 20.4 % (24.0-44.0); MEAN CORPUSCULAR HEMOGLOBIN 24.5 pg (27.0-33.0); MEAN CORPUSCULAR HGB CONC 30.8 g/dl (32.0-36.5); MEAN CORPUSCULAR VOLUME 79.6 fl (80.0-96.0); MONO # 0.6 10^3/uL (0.0-0.8); MONO % 7.5 % (0.0-5.0); NEUTROPHILS # 5.3 10^3/uL (1.8-7.7); NEUTROPHILS % 62.6 % (36.0-66.0); PLATELET COUNT, AUTOMATED 382 10^3/uL (150-450); RED BLOOD COUNT 5.63 10^6/uL (4.30-6.10); WHITE BLOOD COUNT 8.5 10^3/uL (4.0-10.0)
[2018-07-27 12:22] LABS: PROTHROMBIN TIME 50.5 SECONDS (12.1-14.4)
[2018-07-27 12:48] LABS: INR 5.37
--- NOTE | 2018-07-27 13:12 | IPNPDOC ---
Date Seen The patient was seen on 07/27/18. Progress Note Subjective: Yesterday, pt c/o nausea vomiting and abd discomfort bmp still at baseline creatinine. cbc unremarkable. this am, c/o b/l lower quadrant pain without vomiting and chills. Objective: Vitals (See below) General: Sitting up in his wheelchair, no acute distress HEENT: Atraumatic, normocephalic. Mucous membranes are moist HEART: Regular rate and rhythm; and no murmurs, gallops, or rubs Lungs: Good auscultation bilaterally; no wheezes, rhonchi or rales Abdomen: Obese, normal active bowel sounds, no pain to palpation Extremities: No lower extremity edema. Laboratory data, Imaging studies, microbioloty: pls see below Assessment and plan: Mr. Herrera is 57-year-old male who in November 2016 after he had stepped on a nail and developed acute osteomyelitis of the calcaneus. Initial cultures with polymicrobial had Staphylococcus epidermidis, Prevotella melaninogenica and anaerobes. The patient was treated with IV antibiotics for 4-6 weeks with slow improvement. He came back in January 2017 with the same left heel wound and the cultures at that time were positive for methicillin-sensitive Staphylococcus aureus (MSSA) and strep viridans along with Prevotella Intermedia. In April of 2017 again the patient was hospitalized and had MSSA, Enterococcus Faecalis and Klebsiella. During all of those admissions, he was treated with IV antibiotics and at times oral antibiotics at home. Since then, he had been doing well. The wound has closed until when he saw Dr. Knapp for recurrence of the wound that opened up. He was treated conservatively with debridement. On June 16 the patient had purulent drainage, swelling and therefore was sent to the emergency room to be evaluated for further debridement and IV antibiotics. He denied having any fever or chills, no nausea, vomiting or diarrhea. No abdominal pain. He is on IV vancomycin and tolerating well. MRSA Left heal ulcer / Chronic osteomyelitis - Currently patient notes that he's feeling better, does not experience much pain - Currently, patient is nonweightbearing on his left foot - Patient has finished a course of doxycycline - Dr. Izaguirre, and Infectious disease, Dr. Ivory, on consultation; appreciate their input - 07/26/18 c/o nausea vomiting chills. cbc wnl. recheck lactic acid crp esr. cbc reviewed. History of right upper extremity DVT -Most recent INR 2.45, therapeutic. Right upper extremity ultrasound done 07/15/2018 still showed a nonocclusive thrombus in the right axillary vein. Patient will continue to need lifelong anticoagulation. HTN - BP well controlled - c/w Amlodipine, Carvedilol, Enalapril, Hydralazine, Furosemide DM2 with Neuropathy - c/w Metformin - c/w ISS and Levemir DLP - c/w Atorvastatin and ASA 81 DJD - c/w Tylenol PRN Depression - Amitriptyline, Bupropion, GERD - c/w Omeprazole and Famotidine DVT prophylaxis - c/w full anticoagulation with Coumadin Disposition: - Continue with physical therapy - Looking into placement options VS, I&O, 24H, Fishbone Vital Signs/I&O Vital Signs Date Time Temp Pulse Resp B/P (MAP) Pulse Ox O2 Delivery O2 Flow Rate FiO2 07/27/18 03:46 20 07/26/18 22:00 88 138/77 (97) 07/26/18 08:58 99.6 07/26/18 06:00 95 I&O- Last 24 Hours up to 6 AM 07/27/18 05:59 Intake Total 890 ml Output Total 2325 ml Balance -1435 ml Laboratory Data 24H LABS Laboratory Tests 2 07/26/18 06:28: Bedside Glucose (Misc Panel) 184H 07/26/18 12:51: Influenza Type A (RT-PCR) NEGATIVE, Influenza Type B (RT-PCR) NEGATIVE 07/26/18 16:28: Bedside Glucose (Misc Panel) 218H DIPIKA ESPINOSA MD Jul 27, 2018 04:28
[2018-07-27 18:50] LABS: ALBUMIN 3.1 GM/DL (3.2-5.2); BILIRUBIN,TOTAL 0.2 MG/DL (0.2-1.0); C REACTIVE PROTEIN QUANTITATIV 2.27 MG/DL (0.00-0.30); CALCIUM LEVEL 8.7 MG/DL (8.5-10.1); CREATININE FOR GFR 1.74 MG/DL (0.70-1.30); GLOMERULAR FILTRATION RATE 43.3 (>56); POTASSIUM SERUM 4.1 MEQ/L (3.5-5.1)
[2018-07-27] MEDS ORDERED: NS 1,000 ML IV ONE (20:00)
[2018-07-27] MEDS: AMITRIPTYLINE 50 MG TAB PO SCH (20:51)
[2018-07-27] MEDS: ATORVASTATIN 10 MG TAB PO SCH (20:53)
[2018-07-27] MEDS: NS 1,000 ML IV SCH (20:53)
[2018-07-27 22:00] VITALS: BP 136/73
[2018-07-28] MEDS: PERCOCET 5MG/325MG TAB PO PRN ×6 (03:40→22:48)
[2018-07-28] MEDS: DICLOFENAC EPOLAMINE 1.3 % PATCH TOP SCH ×2 (05:22→18:20)
[2018-07-28 06:00] VITALS: BP 153/92
[2018-07-28 06:44] LABS: INR 2.96; PROTHROMBIN TIME 31.5 SECONDS (12.1-14.4)
[2018-07-28] MEDS: FLUTICASONE HFA 110 MCG 12 GM INHALER (FLOVENT) INH SCH (07:44)
[2018-07-28] MEDS: NS 1,000 ML IV SCH (07:53)
[2018-07-28 08:23] LABS: BASO # 0.1 10^3/uL (0.0-0.2); BASO % 1.1 % (0.0-1.0); EOS # 0.7 10^3/uL (0.0-0.50); EOS % 7.3 % (0.0-3.0); HEMATOCRIT 44.2 % (42.0-52.0); HEMOGLOBIN 13.4 g/dl (13.5-17.5); LYMPH % 21.8 % (24.0-44.0); MEAN CORPUSCULAR HEMOGLOBIN 24.1 pg (27.0-33.0); MEAN CORPUSCULAR HGB CONC 30.3 g/dl (32.0-36.5); MEAN CORPUSCULAR VOLUME 79.5 fl (80.0-96.0); MONO # 0.7 10^3/uL (0.0-0.8); MONO % 7.3 % (0.0-5.0); NEUTROPHILS # 5.5 10^3/uL (1.8-7.7); NEUTROPHILS % 61.3 % (36.0-66.0); PLATELET COUNT, AUTOMATED 447 10^3/uL (150-450); RED BLOOD COUNT 5.56 10^6/uL (4.30-6.10); WHITE BLOOD COUNT 8.9 10^3/uL (4.0-10.0)
[2018-07-28 08:28] LABS: ALBUMIN 3.3 GM/DL (3.2-5.2); BILIRUBIN,TOTAL 0.3 MG/DL (0.2-1.0); C REACTIVE PROTEIN QUANTITATIV 1.66 MG/DL (0.00-0.30); CALCIUM LEVEL 8.7 MG/DL (8.5-10.1); CREATININE FOR GFR 1.72 MG/DL (0.70-1.30); GLOMERULAR FILTRATION RATE 43.9 (>56); POTASSIUM SERUM 4.9 MEQ/L (3.5-5.1)
[2018-07-28 08:48] LABS: ERYTHROCYTE SEDIMENTATION RATE 1 mm/hr (0-20)
[2018-07-28] MEDS: DOCUSATE SODIUM 100 MG CAP PO SCH ×4 (09:00→22:39)
--- NOTE | 2018-07-28 09:10 | REP ---
ACUTE ABDOMINAL SERIES: Four views. HISTORY: Vomiting. Comparison study May 13, 2017 chest x-ray. FINDINGS: Upright chest radiograph shows no evidence of infiltrate or free subdiaphragmatic air. Heart size is normal. Pulmonary vasculature is not increased. Supine and erect views of the abdomen show a normal bowel gas pattern with air and stool in a nondistended colon. No large or small bowel dilation is seen. Psoas margins and flank stripes are intact. No mass, organomegaly, or pathologic calcification is seen. IMPRESSION: Unremarkable acute abdominal series. No evidence of free air or significant air fluid level. Electronically Signed by Wolf Chris MD 07/28/2018 09:35 A
[2018-07-28] MEDS: LEVEMIR (INSULIN DETEMIR) 1 UNITS/0.01ML SC SCH ×2 (10:25→22:44)
[2018-07-28] MEDS: HumaLOG INSULIN (NovoLOG) PER UNIT SC SCH ×4 (10:26→21:11)
[2018-07-28] MEDS: FUROSEMIDE 20 MG TAB PO SCH (10:27)
[2018-07-28] MEDS: VITAMIN D 1,000 INTERNATIONAL UNITS TABLET PO SCH ×2 (10:28→22:40)
[2018-07-28] MEDS: MULTIVITAMINS/MINERALS THERAP 1 TAB PO SCH (10:28)
[2018-07-28] MEDS: MAGNESIUM OXIDE 400 MG TAB (MAG-OX) PO SCH ×3 (10:29→22:41)
[2018-07-28] MEDS: OMEPRAZOLE 20 MG CAP PO SCH ×2 (10:29→22:39)
[2018-07-28] MEDS: buPROPion **XL** TABLET 150MG (WELLBUTRIN XL) PO SCH (10:29)
[2018-07-28] MEDS: guaiFENesin ER 600 MG TAB PO SCH ×2 (10:30→22:39)
[2018-07-28] MEDS: FAMOTIDINE 20 MG TAB PO SCH ×2 (10:30→22:41)
[2018-07-28] MEDS: ASPIRIN 81 MG ENTERIC TAB PO SCH (10:30)
[2018-07-28] MEDS: metFORMIN (GLUCOPHAGE) 1000 MG TABLET PO SCH (10:31)
[2018-07-28] MEDS: amLODIPine 5 MG TAB PO SCH ×2 (10:35→22:41)
[2018-07-28] MEDS: ENALAPRIL MALEATE 10 MG TAB PO SCH ×2 (10:36→21:24)
[2018-07-28] MEDS: **hydrALAZINE HCL** 25 MG TAB PO SCH ×3 (10:37→21:23)
[2018-07-28] MEDS: CARVedilol 12.5 MG TAB PO SCH ×2 (10:38→22:40)
[2018-07-28] MEDS: CLOTRIMAZOLE 1% TOPICAL CREAM 30GM TOP SCH ×2 (10:49→22:44)
--- NOTE | 2018-07-28 15:58 | IPN ---
DATE: 07/28/2018 The patient is seen and examined at the bedside. Denies new complaints in his foot. LABORATORY REVIEW: White blood cell count is 8.9, ESR is 1, CRP is 1.6. LOWER EXTREMITY EXAMINATION: Wound bed has improved since last examined. Base is near fully granular. There remains one tiny sinus in the central portion of the wound but this is no longer probing to bone. ASSESSMENT: A 57-year-old male with calcaneal osteomyelitis, status post incision and drainage. PLAN: Continue current wound dressings, Hydrofera Blue and OptiLock for drainage. Keep foot elevated. He is to remain nonweightbearing.
[2018-07-28 22:00] VITALS: BP 114/64
[2018-07-28] MEDS: ATORVASTATIN 10 MG TAB PO SCH (22:39)
[2018-07-28] MEDS: AMITRIPTYLINE 50 MG TAB PO SCH (22:41)
[2018-07-29] MEDS: DICLOFENAC EPOLAMINE 1.3 % PATCH TOP SCH ×2 (05:30→18:00)
[2018-07-29 06:00] VITALS: BP 132/69
[2018-07-29] MEDS: PERCOCET 5MG/325MG TAB PO PRN ×3 (10:42→21:46)
[2018-07-29] MEDS: **hydrALAZINE HCL** 25 MG TAB PO SCH ×3 (10:43→21:44)
[2018-07-29] MEDS: MULTIVITAMINS/MINERALS THERAP 1 TAB PO SCH (10:44)
[2018-07-29] MEDS: ASPIRIN 81 MG ENTERIC TAB PO SCH (10:44)
[2018-07-29] MEDS: DOCUSATE SODIUM 100 MG CAP PO SCH ×2 (10:44→21:46)
[2018-07-29] MEDS: VITAMIN D 1,000 INTERNATIONAL UNITS TABLET PO SCH ×2 (10:45→21:43)
[2018-07-29] MEDS: ENALAPRIL MALEATE 10 MG TAB PO SCH ×2 (10:45→21:45)
[2018-07-29] MEDS: buPROPion **XL** TABLET 150MG (WELLBUTRIN XL) PO SCH (10:46)
[2018-07-29] MEDS: guaiFENesin ER 600 MG TAB PO SCH ×2 (10:46→21:45)
[2018-07-29] MEDS: MAGNESIUM OXIDE 400 MG TAB (MAG-OX) PO SCH ×3 (10:46→21:45)
[2018-07-29] MEDS: CARVedilol 12.5 MG TAB PO SCH ×2 (10:47→21:47)
[2018-07-29] MEDS: FUROSEMIDE 20 MG TAB PO SCH (10:47)
[2018-07-29] MEDS: FAMOTIDINE 20 MG TAB PO SCH ×2 (10:48→21:46)
[2018-07-29] MEDS: OMEPRAZOLE 20 MG CAP PO SCH ×2 (10:48→21:46)
[2018-07-29] MEDS: amLODIPine 5 MG TAB PO SCH ×2 (10:48→21:44)
[2018-07-29] MEDS: LEVEMIR (INSULIN DETEMIR) 1 UNITS/0.01ML SC SCH ×2 (10:49→21:47)
[2018-07-29] MEDS: HumaLOG INSULIN (NovoLOG) PER UNIT SC SCH ×4 (10:50→21:47)
[2018-07-29] MEDS: CLOTRIMAZOLE 1% TOPICAL CREAM 30GM TOP SCH ×2 (10:53→21:48)
[2018-07-29] MEDS: metFORMIN (GLUCOPHAGE) 1000 MG TABLET PO SCH (10:53)
[2018-07-29] MEDS: FLUTICASONE HFA 110 MCG 12 GM INHALER (FLOVENT) INH SCH ×3 (12:24→21:21)
[2018-07-29] MEDS: WARFARIN SOD 5 MG TAB PO SCH (15:34)
[2018-07-29] MEDS: WARFARIN SOD 4 MG TAB PO SCH (15:34)
[2018-07-29] MEDS: AMITRIPTYLINE 50 MG TAB PO SCH (21:46)
[2018-07-29] MEDS: ATORVASTATIN 10 MG TAB PO SCH (21:46)
[2018-07-30] MEDS: PERCOCET 5MG/325MG TAB PO PRN ×5 (04:38→22:38)
[2018-07-30] MEDS: DICLOFENAC EPOLAMINE 1.3 % PATCH TOP SCH ×2 (05:39→18:28)
[2018-07-30 06:00] VITALS: BP 156/71
[2018-07-30] MEDS: FLUTICASONE HFA 110 MCG 12 GM INHALER (FLOVENT) INH SCH ×2 (07:34→21:04)
[2018-07-30 08:30] VITALS: BP 158/82
[2018-07-30] MEDS: DOCUSATE SODIUM 100 MG CAP PO SCH ×2 (09:00→21:00)
[2018-07-30] MEDS: LEVEMIR (INSULIN DETEMIR) 1 UNITS/0.01ML SC SCH ×2 (09:23→21:00)
[2018-07-30] MEDS: FUROSEMIDE 20 MG TAB PO SCH (09:24)
[2018-07-30] MEDS: MULTIVITAMINS/MINERALS THERAP 1 TAB PO SCH (09:24)
[2018-07-30] MEDS: HumaLOG INSULIN (NovoLOG) PER UNIT SC SCH ×4 (09:24→21:00)
[2018-07-30] MEDS: ENALAPRIL MALEATE 10 MG TAB PO SCH ×2 (09:25→21:00)
[2018-07-30] MEDS: buPROPion **XL** TABLET 150MG (WELLBUTRIN XL) PO SCH (09:25)
[2018-07-30] MEDS: OMEPRAZOLE 20 MG CAP PO SCH ×2 (09:25→21:00)
[2018-07-30] MEDS: FAMOTIDINE 20 MG TAB PO SCH ×2 (09:25→21:00)
[2018-07-30] MEDS: guaiFENesin ER 600 MG TAB PO SCH ×2 (09:25→21:00)
[2018-07-30] MEDS: metFORMIN (GLUCOPHAGE) 1000 MG TABLET PO SCH (09:25)
[2018-07-30] MEDS: CARVedilol 12.5 MG TAB PO SCH ×2 (09:26→21:00)
[2018-07-30] MEDS: ASPIRIN 81 MG ENTERIC TAB PO SCH (09:26)
[2018-07-30] MEDS: VITAMIN D 1,000 INTERNATIONAL UNITS TABLET PO SCH ×2 (09:28→21:00)
[2018-07-30] MEDS: **hydrALAZINE HCL** 25 MG TAB PO SCH ×3 (09:29→21:00)
[2018-07-30] MEDS: amLODIPine 5 MG TAB PO SCH ×2 (09:30→21:00)
[2018-07-30] MEDS: MAGNESIUM OXIDE 400 MG TAB (MAG-OX) PO SCH ×3 (09:31→21:00)
[2018-07-30] MEDS: CLOTRIMAZOLE 1% TOPICAL CREAM 30GM TOP SCH ×2 (09:31→21:00)
[2018-07-30 14:22] VITALS: BP 178/90
[2018-07-30] MEDS: WARFARIN SOD 4 MG TAB PO SCH (18:23)
[2018-07-30] MEDS: WARFARIN SOD 5 MG TAB PO SCH (18:24)
[2018-07-30] MEDS: ATORVASTATIN 10 MG TAB PO SCH (21:00)
[2018-07-30] MEDS: AMITRIPTYLINE 50 MG TAB PO SCH (21:00)
[2018-07-31] MEDS: PERCOCET 5MG/325MG TAB PO PRN ×4 (05:22→22:00)
[2018-07-31] MEDS: DICLOFENAC EPOLAMINE 1.3 % PATCH TOP SCH ×2 (05:22→17:56)
[2018-07-31 06:00] VITALS: BP 145/88
[2018-07-31 06:06] LABS: INR 1.55; PROTHROMBIN TIME 18.8 SECONDS (12.1-14.4)
[2018-07-31] MEDS: FLUTICASONE HFA 110 MCG 12 GM INHALER (FLOVENT) INH SCH ×2 (07:58→20:23)
[2018-07-31] MEDS: HumaLOG INSULIN (NovoLOG) PER UNIT SC SCH ×4 (08:52→21:00)
[2018-07-31] MEDS: metFORMIN (GLUCOPHAGE) 1000 MG TABLET PO SCH (08:56)
[2018-07-31] MEDS: DOCUSATE SODIUM 100 MG CAP PO SCH ×2 (09:00→21:00)
[2018-07-31 09:36] VITALS: BP 152/80
[2018-07-31] MEDS: VITAMIN D 1,000 INTERNATIONAL UNITS TABLET PO SCH ×2 (10:15→22:00)
[2018-07-31] MEDS: **hydrALAZINE HCL** 25 MG TAB PO SCH ×3 (10:15→22:00)
[2018-07-31] MEDS: OMEPRAZOLE 20 MG CAP PO SCH ×2 (10:15→22:00)
[2018-07-31] MEDS: MAGNESIUM OXIDE 400 MG TAB (MAG-OX) PO SCH ×3 (10:16→22:00)
[2018-07-31] MEDS: MULTIVITAMINS/MINERALS THERAP 1 TAB PO SCH (10:16)
[2018-07-31] MEDS: FUROSEMIDE 20 MG TAB PO SCH (10:16)
[2018-07-31] MEDS: CARVedilol 12.5 MG TAB PO SCH ×2 (10:17→22:00)
[2018-07-31] MEDS: buPROPion **XL** TABLET 150MG (WELLBUTRIN XL) PO SCH (10:17)
[2018-07-31] MEDS: amLODIPine 5 MG TAB PO SCH ×2 (10:17→22:00)
[2018-07-31] MEDS: guaiFENesin ER 600 MG TAB PO SCH ×2 (10:17→22:00)
[2018-07-31] MEDS: ENALAPRIL MALEATE 10 MG TAB PO SCH ×2 (10:18→22:00)
[2018-07-31] MEDS: ASPIRIN 81 MG ENTERIC TAB PO SCH (10:18)
[2018-07-31] MEDS: FAMOTIDINE 20 MG TAB PO SCH ×2 (10:18→22:00)
[2018-07-31] MEDS: CLOTRIMAZOLE 1% TOPICAL CREAM 30GM TOP SCH ×2 (10:19→22:00)
[2018-07-31] MEDS: LEVEMIR (INSULIN DETEMIR) 1 UNITS/0.01ML SC SCH ×2 (10:19→22:00)
[2018-07-31 15:24] VITALS: BP 154/84
--- NOTE | 2018-07-31 16:56 | IPNPDOC ---
Date Seen The patient was seen on 07/31/18. Progress Note inr 1.55 plan: bridge renally dosed lovenox with coumadin until inr 2 VS, I&O, 24H, [facility] Vital Signs/I&O Vital Signs Date Time Temp Pulse Resp B/P (MAP) Pulse Ox O2 Delivery O2 Flow Rate FiO2 07/31/18 15:24 98.7 78 18 154/84 (107) 96 I&O- Last 24 Hours up to 6 AM 07/31/18 06:00 Intake Total 1650 ml Output Total 3275 ml Balance -1625 ml Laboratory Data 24H LABS Laboratory Tests 2 07/30/18 17:27: Bedside Glucose (Misc Panel) 170H 07/30/18 20:04: Bedside Glucose (Misc Panel) 151H 07/31/18 05:43: Prothrombin Time 18.8H, Prothromb Time International Ratio 1.55 07/31/18 05:59: Bedside Glucose (Misc Panel) 283H 07/31/18 11:32: Bedside Glucose (Misc Panel) 181H 07/31/18 16:23: Bedside Glucose (Misc Panel) 154H Microbiology Microbiology 07/27/18 Blood Culture - Preliminary, Resulted No Growth after 72 hours. All specime... 07/27/18 Blood Culture - Preliminary, Resulted No Growth after 72 hours. All specime... DIPIKA ESPINOSA MD Jul 31, 2018 16:56
[2018-07-31] MEDS ORDERED: WARFARIN SOD 5 MG TAB PO ONE (17:00)
[2018-07-31] MEDS ORDERED: WARFARIN SOD 4 MG TAB PO ONE (17:00)
[2018-07-31] MEDS ORDERED: ENOXAPARIN 150 MG/ML SYR (J1650) SC ONE (19:00)
[2018-07-31] MEDS: AMITRIPTYLINE 50 MG TAB PO SCH (22:00)
[2018-07-31] MEDS: ATORVASTATIN 10 MG TAB PO SCH (22:00)
[2018-08-01] MEDS: PERCOCET 5MG/325MG TAB PO PRN ×5 (03:40→22:36)
[2018-08-01] MEDS: DICLOFENAC EPOLAMINE 1.3 % PATCH TOP SCH ×2 (05:19→17:46)
[2018-08-01 06:00] VITALS: BP 140/82
[2018-08-01 06:05] LABS: INR 1.68; PROTHROMBIN TIME 20.1 SECONDS (12.1-14.4)
[2018-08-01] MEDS: FLUTICASONE HFA 110 MCG 12 GM INHALER (FLOVENT) INH SCH ×2 (07:38→20:08)
[2018-08-01] MEDS: MULTIVITAMINS/MINERALS THERAP 1 TAB PO SCH (09:04)
[2018-08-01] MEDS: amLODIPine 5 MG TAB PO SCH ×2 (09:05→22:30)
[2018-08-01] MEDS: CARVedilol 12.5 MG TAB PO SCH ×2 (09:05→22:30)
[2018-08-01] MEDS: FAMOTIDINE 20 MG TAB PO SCH ×2 (09:06→22:30)
[2018-08-01] MEDS: **hydrALAZINE HCL** 25 MG TAB PO SCH ×3 (09:06→22:30)
[2018-08-01] MEDS: MAGNESIUM OXIDE 400 MG TAB (MAG-OX) PO SCH ×3 (09:06→22:30)
[2018-08-01] MEDS: guaiFENesin ER 600 MG TAB PO SCH ×2 (09:06→22:32)
[2018-08-01] MEDS: ENALAPRIL MALEATE 10 MG TAB PO SCH ×2 (09:07→22:30)
[2018-08-01] MEDS: VITAMIN D 1,000 INTERNATIONAL UNITS TABLET PO SCH ×2 (09:07→22:30)
[2018-08-01] MEDS: FUROSEMIDE 20 MG TAB PO SCH (09:08)
[2018-08-01] MEDS: ASPIRIN 81 MG ENTERIC TAB PO SCH (09:08)
[2018-08-01] MEDS: metFORMIN (GLUCOPHAGE) 1000 MG TABLET PO SCH (09:08)
[2018-08-01] MEDS: DOCUSATE SODIUM 100 MG CAP PO SCH ×2 (09:08→21:00)
[2018-08-01] MEDS: OMEPRAZOLE 20 MG CAP PO SCH ×2 (09:08→22:30)
[2018-08-01] MEDS: buPROPion **XL** TABLET 150MG (WELLBUTRIN XL) PO SCH (09:09)
[2018-08-01] MEDS: ENOXAPARIN 150 MG/ML SYR (J1650) SC SCH ×2 (09:11→22:30)
[2018-08-01] MEDS: CLOTRIMAZOLE 1% TOPICAL CREAM 30GM TOP SCH ×2 (09:12→22:30)
[2018-08-01] MEDS: HumaLOG INSULIN (NovoLOG) PER UNIT SC SCH ×4 (09:12→21:00)
[2018-08-01] MEDS: LEVEMIR (INSULIN DETEMIR) 1 UNITS/0.01ML SC SCH ×2 (09:13→22:30)
[2018-08-01] MEDS: WARFARIN SOD 4 MG TAB PO SCH (17:43)
[2018-08-01] MEDS: AMITRIPTYLINE 50 MG TAB PO SCH (22:03)
[2018-08-01] MEDS: ATORVASTATIN 10 MG TAB PO SCH (22:30)
[2018-08-02 06:00] VITALS: BP 138/74
[2018-08-02] MEDS: DICLOFENAC EPOLAMINE 1.3 % PATCH TOP SCH ×2 (06:00→17:26)
[2018-08-02 06:36] LABS: INR 2.13; PROTHROMBIN TIME 24.2 SECONDS (12.1-14.4)
[2018-08-02] MEDS: ASPIRIN 81 MG ENTERIC TAB PO SCH (08:33)
[2018-08-02] MEDS: ENOXAPARIN 150 MG/ML SYR (J1650) SC SCH (08:34)
[2018-08-02] MEDS: CARVedilol 12.5 MG TAB PO SCH ×2 (08:35→20:54)
[2018-08-02] MEDS: **hydrALAZINE HCL** 25 MG TAB PO SCH ×3 (08:35→20:56)
[2018-08-02] MEDS: metFORMIN (GLUCOPHAGE) 1000 MG TABLET PO SCH (08:35)
[2018-08-02] MEDS: ENALAPRIL MALEATE 10 MG TAB PO SCH ×2 (08:36→20:54)
[2018-08-02] MEDS: amLODIPine 5 MG TAB PO SCH ×2 (08:36→20:55)
[2018-08-02] MEDS: guaiFENesin ER 600 MG TAB PO SCH ×2 (08:36→20:54)
[2018-08-02] MEDS: FUROSEMIDE 20 MG TAB PO SCH (08:36)
[2018-08-02] MEDS: MAGNESIUM OXIDE 400 MG TAB (MAG-OX) PO SCH ×3 (08:37→20:55)
[2018-08-02] MEDS: buPROPion **XL** TABLET 150MG (WELLBUTRIN XL) PO SCH (08:37)
[2018-08-02] MEDS: VITAMIN D 1,000 INTERNATIONAL UNITS TABLET PO SCH ×2 (08:37→20:53)
[2018-08-02] MEDS: OMEPRAZOLE 20 MG CAP PO SCH ×2 (08:37→20:54)
[2018-08-02] MEDS: MULTIVITAMINS/MINERALS THERAP 1 TAB PO SCH (08:38)
[2018-08-02] MEDS: FAMOTIDINE 20 MG TAB PO SCH ×2 (08:38→20:55)
[2018-08-02] MEDS: DOCUSATE SODIUM 100 MG CAP PO SCH ×3 (08:38→21:00)
[2018-08-02] MEDS: HumaLOG INSULIN (NovoLOG) PER UNIT SC SCH ×4 (08:39→20:57)
[2018-08-02] MEDS: LEVEMIR (INSULIN DETEMIR) 1 UNITS/0.01ML SC SCH ×2 (08:39→20:56)
[2018-08-02] MEDS: CLOTRIMAZOLE 1% TOPICAL CREAM 30GM TOP SCH ×2 (08:40→20:58)
[2018-08-02] MEDS: FLUTICASONE HFA 110 MCG 12 GM INHALER (FLOVENT) INH SCH ×3 (09:00→20:12)
[2018-08-02] MEDS: PERCOCET 5MG/325MG TAB PO PRN ×3 (12:18→22:15)
[2018-08-02] MEDS: WARFARIN SOD 4 MG TAB PO SCH (17:27)
[2018-08-02] MEDS: AMITRIPTYLINE 50 MG TAB PO SCH (20:55)
[2018-08-02] MEDS: ATORVASTATIN 10 MG TAB PO SCH (20:55)
[2018-08-03] MEDS: PERCOCET 5MG/325MG TAB PO PRN ×5 (04:03→22:31)
[2018-08-03 06:00] VITALS: BP 142/88
[2018-08-03 06:44] LABS: PROTHROMBIN TIME 23.1 SECONDS (12.1-14.4)
[2018-08-03] MEDS: DICLOFENAC EPOLAMINE 1.3 % PATCH TOP SCH ×2 (07:00→17:36)
[2018-08-03] MEDS: HumaLOG INSULIN (NovoLOG) PER UNIT SC SCH ×4 (07:30→20:06)
[2018-08-03 09:00] VITALS: BP 158/85
[2018-08-03] MEDS: FLUTICASONE HFA 110 MCG 12 GM INHALER (FLOVENT) INH SCH ×2 (09:00→21:32)
[2018-08-03] MEDS: DOCUSATE SODIUM 100 MG CAP PO SCH ×3 (09:00→22:28)
[2018-08-03] MEDS: LEVEMIR (INSULIN DETEMIR) 1 UNITS/0.01ML SC SCH ×2 (10:33→22:32)
[2018-08-03] MEDS: OMEPRAZOLE 20 MG CAP PO SCH ×2 (10:33→22:31)
[2018-08-03] MEDS: MULTIVITAMINS/MINERALS THERAP 1 TAB PO SCH (10:34)
[2018-08-03] MEDS: ENALAPRIL MALEATE 10 MG TAB PO SCH ×2 (10:34→22:28)
[2018-08-03] MEDS: CARVedilol 12.5 MG TAB PO SCH ×2 (10:36→22:30)
[2018-08-03] MEDS: guaiFENesin ER 600 MG TAB PO SCH ×2 (10:36→22:28)
[2018-08-03] MEDS: MAGNESIUM OXIDE 400 MG TAB (MAG-OX) PO SCH ×3 (10:37→22:27)
[2018-08-03] MEDS: metFORMIN (GLUCOPHAGE) 1000 MG TABLET PO SCH ×2 (10:37→17:35)
[2018-08-03] MEDS: VITAMIN D 1,000 INTERNATIONAL UNITS TABLET PO SCH ×2 (10:38→22:27)
[2018-08-03] MEDS: FUROSEMIDE 20 MG TAB PO SCH (10:39)
[2018-08-03] MEDS: ASPIRIN 81 MG ENTERIC TAB PO SCH (10:40)
[2018-08-03] MEDS: amLODIPine 5 MG TAB PO SCH ×2 (10:40→22:29)
[2018-08-03] MEDS: **hydrALAZINE HCL** 25 MG TAB PO SCH ×3 (10:40→22:29)
[2018-08-03] MEDS: FAMOTIDINE 20 MG TAB PO SCH ×2 (10:40→22:31)
[2018-08-03] MEDS: GABAPENTIN 100 MG CAP PO SCH ×3 (11:11→22:30)
[2018-08-03] MEDS: buPROPion **XL** TABLET 150MG (WELLBUTRIN XL) PO SCH (11:12)
[2018-08-03 14:00] VITALS: BP 151/71
[2018-08-03] MEDS: CLOTRIMAZOLE 1% TOPICAL CREAM 30GM TOP SCH ×2 (16:07→22:32)
[2018-08-03] MEDS: WARFARIN SOD 4 MG TAB PO SCH (17:36)
[2018-08-03] MEDS: ATORVASTATIN 10 MG TAB PO SCH (22:30)
[2018-08-03] MEDS: AMITRIPTYLINE 50 MG TAB PO SCH (22:30)
[2018-08-04] MEDS: PERCOCET 5MG/325MG TAB PO PRN ×5 (04:13→22:18)
[2018-08-04 06:00] VITALS: BP 156/90
[2018-08-04] MEDS: DICLOFENAC EPOLAMINE 1.3 % PATCH TOP SCH ×2 (06:07→17:26)
[2018-08-04 06:43] LABS: INR 2.58; PROTHROMBIN TIME 28.2 SECONDS (12.1-14.4)
[2018-08-04] MEDS: FLUTICASONE HFA 110 MCG 12 GM INHALER (FLOVENT) INH SCH ×2 (07:27→21:00)
[2018-08-04] MEDS: LEVEMIR (INSULIN DETEMIR) 1 UNITS/0.01ML SC SCH ×2 (08:30→22:24)
[2018-08-04] MEDS: HumaLOG INSULIN (NovoLOG) PER UNIT SC SCH ×4 (08:30→21:00)
[2018-08-04] MEDS: ASPIRIN 81 MG ENTERIC TAB PO SCH (08:31)
[2018-08-04] MEDS: MAGNESIUM OXIDE 400 MG TAB (MAG-OX) PO SCH ×3 (08:32→22:18)
[2018-08-04] MEDS: amLODIPine 5 MG TAB PO SCH ×2 (08:32→22:22)
[2018-08-04] MEDS: OMEPRAZOLE 20 MG CAP PO SCH ×2 (08:32→22:23)
[2018-08-04] MEDS: metFORMIN (GLUCOPHAGE) 1000 MG TABLET PO SCH ×2 (08:32→17:26)
[2018-08-04] MEDS: buPROPion **XL** TABLET 150MG (WELLBUTRIN XL) PO SCH (08:32)
[2018-08-04] MEDS: **hydrALAZINE HCL** 25 MG TAB PO SCH ×3 (08:33→22:21)
[2018-08-04] MEDS: FUROSEMIDE 20 MG TAB PO SCH (08:34)
[2018-08-04] MEDS: guaiFENesin ER 600 MG TAB PO SCH ×2 (08:34→22:22)
[2018-08-04] MEDS: VITAMIN D 1,000 INTERNATIONAL UNITS TABLET PO SCH ×2 (08:34→22:20)
[2018-08-04] MEDS: MULTIVITAMINS/MINERALS THERAP 1 TAB PO SCH (08:35)
[2018-08-04] MEDS: FAMOTIDINE 20 MG TAB PO SCH ×2 (08:35→22:21)
[2018-08-04] MEDS: CARVedilol 12.5 MG TAB PO SCH ×2 (08:35→22:19)
[2018-08-04] MEDS: GABAPENTIN 100 MG CAP PO SCH ×3 (08:35→22:22)
[2018-08-04] MEDS: ENALAPRIL MALEATE 10 MG TAB PO SCH ×2 (08:35→22:21)
[2018-08-04] MEDS: CLOTRIMAZOLE 1% TOPICAL CREAM 30GM TOP SCH ×2 (08:36→22:24)
[2018-08-04] MEDS: DOCUSATE SODIUM 100 MG CAP PO SCH ×2 (08:36→22:22)
[2018-08-04] MEDS: AMOXICILLIN 500 MG CAP PO SCH ×2 (11:11→22:20)
[2018-08-04] MEDS: WARFARIN SOD 4 MG TAB PO SCH (15:55)
[2018-08-04] MEDS: AMITRIPTYLINE 50 MG TAB PO SCH (22:23)
[2018-08-04] MEDS: ATORVASTATIN 10 MG TAB PO SCH (22:23)
[2018-08-05] MEDS: DICLOFENAC EPOLAMINE 1.3 % PATCH TOP SCH ×2 (05:56→16:54)
[2018-08-05] MEDS: PERCOCET 5MG/325MG TAB PO PRN ×3 (05:57→20:50)
[2018-08-05 06:00] VITALS: BP 165/80
[2018-08-05] MEDS: metFORMIN (GLUCOPHAGE) 1000 MG TABLET PO SCH ×2 (07:54→16:55)
[2018-08-05] MEDS: **hydrALAZINE HCL** 25 MG TAB PO SCH ×3 (07:55→20:47)
[2018-08-05] MEDS: buPROPion **XL** TABLET 150MG (WELLBUTRIN XL) PO SCH (07:56)
[2018-08-05] MEDS: VITAMIN D 1,000 INTERNATIONAL UNITS TABLET PO SCH ×2 (07:56→20:48)
[2018-08-05] MEDS: AMOXICILLIN 500 MG CAP PO SCH ×2 (07:56→20:48)
[2018-08-05] MEDS: FUROSEMIDE 20 MG TAB PO SCH (07:57)
[2018-08-05] MEDS: CARVedilol 12.5 MG TAB PO SCH ×2 (07:57→20:49)
[2018-08-05] MEDS: OMEPRAZOLE 20 MG CAP PO SCH ×2 (07:57→20:49)
[2018-08-05] MEDS: guaiFENesin ER 600 MG TAB PO SCH ×2 (07:57→20:48)
[2018-08-05] MEDS: MULTIVITAMINS/MINERALS THERAP 1 TAB PO SCH (07:58)
[2018-08-05] MEDS: MAGNESIUM OXIDE 400 MG TAB (MAG-OX) PO SCH ×3 (07:58→20:50)
[2018-08-05] MEDS: FAMOTIDINE 20 MG TAB PO SCH ×2 (07:58→20:49)
[2018-08-05] MEDS: GABAPENTIN 100 MG CAP PO SCH ×3 (07:58→20:48)
[2018-08-05] MEDS: ENALAPRIL MALEATE 10 MG TAB PO SCH ×2 (07:59→20:49)
[2018-08-05] MEDS: ASPIRIN 81 MG ENTERIC TAB PO SCH (07:59)
[2018-08-05] MEDS: amLODIPine 5 MG TAB PO SCH ×2 (07:59→20:48)
[2018-08-05] MEDS: HumaLOG INSULIN (NovoLOG) PER UNIT SC SCH ×4 (08:00→21:00)
[2018-08-05] MEDS: LEVEMIR (INSULIN DETEMIR) 1 UNITS/0.01ML SC SCH ×2 (08:00→20:51)
[2018-08-05] MEDS: CLOTRIMAZOLE 1% TOPICAL CREAM 30GM TOP SCH ×2 (08:01→20:51)
[2018-08-05] MEDS: DOCUSATE SODIUM 100 MG CAP PO SCH ×2 (08:01→20:48)
[2018-08-05] MEDS: FLUTICASONE HFA 110 MCG 12 GM INHALER (FLOVENT) INH SCH ×2 (08:55→20:45)
[2018-08-05] MEDS ORDERED: DEXTROMETHORPHAN 60MG/10ML SUSP 90ML BTL(DELSYM) PO PRN (09:00)
[2018-08-05 09:34] VITALS: BP 178/98
[2018-08-05 10:37] VITALS: BP 180/96
--- NOTE | 2018-08-05 11:50 | REP ---
Chest two views HISTORY: Upper respiratory infection Comparison: None The lungs are clear. The heart is normal in size. The pulmonary vasculature is normal in appearance. Degenerative changes present in the thoracic spine. There is an old compression fracture of the T12 vertebral body. IMPRESSION: No acute disease. Electronically Signed by Mario Rodriguez MD 08/05/2018 11:41 A
[2018-08-05] MEDS ORDERED: DEXTROMETHORPHAN 5 ML SYRUP (ROBITUSSIN PEDIATRIC COUGH) PO PRN (12:30)
[2018-08-05 13:43] VITALS: BP 182/96
[2018-08-05] MEDS: WARFARIN SOD 4 MG TAB PO SCH (16:55)
[2018-08-05] MEDS: AMITRIPTYLINE 50 MG TAB PO SCH (20:48)
[2018-08-05] MEDS: ATORVASTATIN 10 MG TAB PO SCH (20:48)
[2018-08-05 21:00] VITALS: BP 150/73
[2018-08-06] MEDS: PERCOCET 5MG/325MG TAB PO PRN ×5 (02:14→20:12)
[2018-08-06 06:00] VITALS: BP 152/89
[2018-08-06 06:22] LABS: HEMOGLOBIN 13.5 g/dl (13.5-17.5); MEAN CORPUSCULAR HEMOGLOBIN 24.2 pg (27.0-33.0); MEAN CORPUSCULAR HGB CONC 30.7 g/dl (32.0-36.5); MEAN CORPUSCULAR VOLUME 78.9 fl (80.0-96.0); PLATELET COUNT, AUTOMATED 445 10^3/uL (150-450); RED BLOOD COUNT 5.58 10^6/uL (4.30-6.10); WHITE BLOOD COUNT 8.8 10^3/uL (4.0-10.0)
[2018-08-06] MEDS: DICLOFENAC EPOLAMINE 1.3 % PATCH TOP SCH ×2 (06:29→19:12)
[2018-08-06 06:41] LABS: CALCIUM LEVEL 9.2 MG/DL (8.5-10.1); CREATININE FOR GFR 1.6 MG/DL (0.70-1.30); GLOMERULAR FILTRATION RATE 47.7 (>56); MAGNESIUM LEVEL 1.8 MG/DL (1.8-2.4); POTASSIUM SERUM 4.4 MEQ/L (3.5-5.1)
[2018-08-06] MEDS: FLUTICASONE HFA 110 MCG 12 GM INHALER (FLOVENT) INH SCH ×2 (07:37→20:31)
[2018-08-06] MEDS: VITAMIN D 1,000 INTERNATIONAL UNITS TABLET PO SCH ×2 (08:46→20:10)
[2018-08-06] MEDS: **hydrALAZINE HCL** 25 MG TAB PO SCH ×3 (08:46→20:11)
[2018-08-06] MEDS: MULTIVITAMINS/MINERALS THERAP 1 TAB PO SCH (08:46)
[2018-08-06] MEDS: FAMOTIDINE 20 MG TAB PO SCH ×2 (08:47→20:12)
[2018-08-06] MEDS: OMEPRAZOLE 20 MG CAP PO SCH ×2 (08:47→20:10)
[2018-08-06] MEDS: FUROSEMIDE 20 MG TAB PO SCH (08:47)
[2018-08-06] MEDS: CARVedilol 12.5 MG TAB PO SCH ×2 (08:47→20:11)
[2018-08-06] MEDS: guaiFENesin ER 600 MG TAB PO SCH ×2 (08:48→20:10)
[2018-08-06] MEDS: AMOXICILLIN 500 MG CAP PO SCH ×2 (08:48→20:12)
[2018-08-06] MEDS: buPROPion **XL** TABLET 150MG (WELLBUTRIN XL) PO SCH (08:48)
[2018-08-06] MEDS: MAGNESIUM OXIDE 400 MG TAB (MAG-OX) PO SCH ×3 (08:48→20:10)
[2018-08-06] MEDS: ENALAPRIL MALEATE 10 MG TAB PO SCH ×2 (08:48→20:12)
[2018-08-06] MEDS: GABAPENTIN 100 MG CAP PO SCH ×3 (08:49→20:13)
[2018-08-06] MEDS: LEVEMIR (INSULIN DETEMIR) 1 UNITS/0.01ML SC SCH ×2 (08:49→20:58)
[2018-08-06] MEDS: ASPIRIN 81 MG ENTERIC TAB PO SCH (08:49)
[2018-08-06] MEDS: metFORMIN (GLUCOPHAGE) 1000 MG TABLET PO SCH ×2 (08:49→17:34)
[2018-08-06] MEDS: amLODIPine 5 MG TAB PO SCH ×2 (08:49→20:12)
[2018-08-06] MEDS: HumaLOG INSULIN (NovoLOG) PER UNIT SC SCH ×5 (08:50→21:00)
[2018-08-06] MEDS: CLOTRIMAZOLE 1% TOPICAL CREAM 30GM TOP SCH ×2 (08:51→20:13)
[2018-08-06] MEDS: DOCUSATE SODIUM 100 MG CAP PO SCH ×2 (08:51→19:43)
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
[2018-08-06] MEDS: WARFARIN SOD 4 MG TAB PO SCH (17:34)
[2018-08-06] MEDS: ATORVASTATIN 10 MG TAB PO SCH (20:10)
[2018-08-06] MEDS: AMITRIPTYLINE 50 MG TAB PO SCH (20:13)
[2018-08-07] MEDS: PERCOCET 5MG/325MG TAB PO PRN ×3 (04:48→19:46)
[2018-08-07] MEDS: DICLOFENAC EPOLAMINE 1.3 % PATCH TOP SCH ×2 (05:15→17:47)
[2018-08-07 06:00] VITALS: BP 140/92
[2018-08-07] MEDS: FLUTICASONE HFA 110 MCG 12 GM INHALER (FLOVENT) INH SCH ×2 (07:21→21:00)
[2018-08-07 07:57] LABS: INR 3.31; PROTHROMBIN TIME 34.4 SECONDS (12.1-14.4)
[2018-08-07] MEDS: DOCUSATE SODIUM 100 MG CAP PO SCH ×3 (09:00→22:25)
[2018-08-07] MEDS: HumaLOG INSULIN (NovoLOG) PER UNIT SC SCH ×3 (09:50→17:46)
[2018-08-07] MEDS: LEVEMIR (INSULIN DETEMIR) 1 UNITS/0.01ML SC SCH ×2 (09:51→22:27)
[2018-08-07] MEDS: VITAMIN D 1,000 INTERNATIONAL UNITS TABLET PO SCH ×2 (09:51→22:23)
[2018-08-07] MEDS: AMOXICILLIN 500 MG CAP PO SCH ×2 (09:51→22:21)
[2018-08-07] MEDS: ASPIRIN 81 MG ENTERIC TAB PO SCH (09:52)
[2018-08-07] MEDS: FAMOTIDINE 20 MG TAB PO SCH ×2 (09:52→22:26)
[2018-08-07] MEDS: MULTIVITAMINS/MINERALS THERAP 1 TAB PO SCH (09:52)
[2018-08-07] MEDS: buPROPion **XL** TABLET 150MG (WELLBUTRIN XL) PO SCH (09:52)
[2018-08-07] MEDS: MAGNESIUM OXIDE 400 MG TAB (MAG-OX) PO SCH ×3 (09:52→22:25)
[2018-08-07] MEDS: guaiFENesin ER 600 MG TAB PO SCH ×2 (09:52→22:22)
[2018-08-07] MEDS: FUROSEMIDE 20 MG TAB PO SCH (09:52)
[2018-08-07] MEDS: OMEPRAZOLE 20 MG CAP PO SCH ×2 (09:53→22:22)
[2018-08-07] MEDS: metFORMIN (GLUCOPHAGE) 1000 MG TABLET PO SCH ×2 (09:53→17:46)
[2018-08-07] MEDS: GABAPENTIN 100 MG CAP PO SCH ×3 (09:53→22:24)
[2018-08-07] MEDS: ENALAPRIL MALEATE 10 MG TAB PO SCH ×2 (09:53→22:23)
[2018-08-07] MEDS: **hydrALAZINE HCL** 25 MG TAB PO SCH ×3 (09:53→22:24)
[2018-08-07] MEDS: CARVedilol 12.5 MG TAB PO SCH ×2 (09:54→22:22)
[2018-08-07] MEDS: amLODIPine 5 MG TAB PO SCH ×2 (09:54→22:25)
[2018-08-07] MEDS: CLOTRIMAZOLE 1% TOPICAL CREAM 30GM TOP SCH ×2 (12:50→22:27)
[2018-08-07] MEDS: WARFARIN SOD 4 MG TAB PO SCH (17:00)
[2018-08-07 21:00] VITALS: BP 140/78
[2018-08-07] MEDS: ATORVASTATIN 10 MG TAB PO SCH (22:23)
[2018-08-07] MEDS: AMITRIPTYLINE 50 MG TAB PO SCH (22:24)
[2018-08-08] MEDS: PERCOCET 5MG/325MG TAB PO PRN ×5 (02:11→21:05)
[2018-08-08] MEDS: DICLOFENAC EPOLAMINE 1.3 % PATCH TOP SCH ×2 (05:58→17:06)
[2018-08-08 06:00] VITALS: BP 155/79
[2018-08-08 08:21] LABS: INR 2.27; PROTHROMBIN TIME 25.5 SECONDS (12.1-14.4)
[2018-08-08] MEDS: FLUTICASONE HFA 110 MCG 12 GM INHALER (FLOVENT) INH SCH ×2 (08:51→19:14)
[2018-08-08] MEDS: LEVEMIR (INSULIN DETEMIR) 1 UNITS/0.01ML SC SCH ×2 (09:00→21:10)
[2018-08-08] MEDS: DOCUSATE SODIUM 100 MG CAP PO SCH ×2 (09:00→21:00)
[2018-08-08] MEDS: HumaLOG INSULIN (NovoLOG) PER UNIT SC SCH ×4 (09:01→21:00)
[2018-08-08] MEDS: MAGNESIUM OXIDE 400 MG TAB (MAG-OX) PO SCH ×3 (09:02→21:08)
[2018-08-08] MEDS: **hydrALAZINE HCL** 25 MG TAB PO SCH ×3 (09:02→21:06)
[2018-08-08] MEDS: buPROPion **XL** TABLET 150MG (WELLBUTRIN XL) PO SCH (09:02)
[2018-08-08] MEDS: AMOXICILLIN 500 MG CAP PO SCH ×2 (09:02→21:06)
[2018-08-08] MEDS: ASPIRIN 81 MG ENTERIC TAB PO SCH (09:02)
[2018-08-08] MEDS: GABAPENTIN 100 MG CAP PO SCH ×3 (09:02→21:06)
[2018-08-08] MEDS: FAMOTIDINE 20 MG TAB PO SCH ×2 (09:02→21:09)
[2018-08-08] MEDS: VITAMIN D 1,000 INTERNATIONAL UNITS TABLET PO SCH ×2 (09:02→21:08)
[2018-08-08] MEDS: ENALAPRIL MALEATE 10 MG TAB PO SCH ×2 (09:03→21:07)
[2018-08-08] MEDS: metFORMIN (GLUCOPHAGE) 1000 MG TABLET PO SCH ×2 (09:03→17:07)
[2018-08-08] MEDS: MULTIVITAMINS/MINERALS THERAP 1 TAB PO SCH (09:03)
[2018-08-08] MEDS: amLODIPine 5 MG TAB PO SCH ×2 (09:03→21:09)
[2018-08-08] MEDS: OMEPRAZOLE 20 MG CAP PO SCH ×2 (09:04→21:05)
[2018-08-08] MEDS: FUROSEMIDE 20 MG TAB PO SCH (09:04)
[2018-08-08] MEDS: CARVedilol 12.5 MG TAB PO SCH ×2 (09:04→21:09)
[2018-08-08] MEDS: guaiFENesin ER 600 MG TAB PO SCH ×2 (09:04→21:06)
[2018-08-08] MEDS: CLOTRIMAZOLE 1% TOPICAL CREAM 30GM TOP SCH ×2 (09:05→21:11)
[2018-08-08] MEDS: WARFARIN SOD 4 MG TAB PO SCH (17:06)
[2018-08-08] MEDS: ATORVASTATIN 10 MG TAB PO SCH (21:07)
[2018-08-08] MEDS: AMITRIPTYLINE 50 MG TAB PO SCH (21:09)
[2018-08-09] MEDS: PERCOCET 5MG/325MG TAB PO PRN ×4 (05:01→20:19)
[2018-08-09] MEDS: DICLOFENAC EPOLAMINE 1.3 % PATCH TOP SCH ×2 (05:01→16:53)
[2018-08-09] MEDS: FLUTICASONE HFA 110 MCG 12 GM INHALER (FLOVENT) INH SCH ×2 (07:55→19:59)
[2018-08-09] MEDS: HumaLOG INSULIN (NovoLOG) PER UNIT SC SCH ×4 (08:18→20:19)
[2018-08-09] MEDS: metFORMIN (GLUCOPHAGE) 1000 MG TABLET PO SCH ×2 (08:19→16:53)
[2018-08-09] MEDS: LEVEMIR (INSULIN DETEMIR) 1 UNITS/0.01ML SC SCH ×2 (09:00→20:19)
[2018-08-09] MEDS: CLOTRIMAZOLE 1% TOPICAL CREAM 30GM TOP SCH ×2 (09:00→20:20)
[2018-08-09] MEDS: DOCUSATE SODIUM 100 MG CAP PO SCH ×2 (09:00→20:18)
[2018-08-09 09:50] VITALS: BP 168/82
[2018-08-09] MEDS: AMOXICILLIN 500 MG CAP PO SCH ×2 (10:43→20:16)
[2018-08-09] MEDS: **hydrALAZINE HCL** 25 MG TAB PO SCH ×3 (10:44→20:17)
[2018-08-09] MEDS: CARVedilol 12.5 MG TAB PO SCH ×2 (10:45→20:18)
[2018-08-09] MEDS: guaiFENesin ER 600 MG TAB PO SCH ×2 (10:45→20:18)
[2018-08-09] MEDS: VITAMIN D 1,000 INTERNATIONAL UNITS TABLET PO SCH ×2 (10:45→20:17)
[2018-08-09] MEDS: MAGNESIUM OXIDE 400 MG TAB (MAG-OX) PO SCH ×3 (10:46→20:17)
[2018-08-09] MEDS: MULTIVITAMINS/MINERALS THERAP 1 TAB PO SCH (10:46)
[2018-08-09] MEDS: FAMOTIDINE 20 MG TAB PO SCH ×2 (10:47→20:17)
[2018-08-09] MEDS: amLODIPine 5 MG TAB PO SCH ×2 (10:47→20:18)
[2018-08-09] MEDS: ASPIRIN 81 MG ENTERIC TAB PO SCH (10:47)
[2018-08-09] MEDS: FUROSEMIDE 20 MG TAB PO SCH (10:47)
[2018-08-09] MEDS: OMEPRAZOLE 20 MG CAP PO SCH ×2 (10:47→20:18)
[2018-08-09] MEDS: ENALAPRIL MALEATE 10 MG TAB PO SCH ×2 (10:48→20:16)
[2018-08-09] MEDS: GABAPENTIN 100 MG CAP PO SCH ×3 (10:48→20:18)
[2018-08-09] MEDS: buPROPion **XL** TABLET 150MG (WELLBUTRIN XL) PO SCH (10:48)
--- NOTE | 2018-08-09 12:09 | IPN ---
DATE: 08/09/2018 Patient seen and examined at bedside. Denies new complaints. Notes some soreness on his right 2nd toe. LOWER EXTREMITY EXAMINATION: The left heel wound is granular without necrosis. The tracking has resolved. There is a small excoriation on the dorsal aspect of the right 2nd toe. ASSESSMENT: 57-year-old male with calcaneal osteomyelitis. TREATMENT: Continue current wound dressings, apply antibiotic ointment to dorsal 2nd toe. Will follow.
[2018-08-09] MEDS: NEOSPORIN TOP OINT 15GM TOP SCH (16:52)
[2018-08-09] MEDS: WARFARIN SOD 4 MG TAB PO SCH (16:53)
[2018-08-09] MEDS: ATORVASTATIN 10 MG TAB PO SCH (20:16)
[2018-08-09] MEDS: AMITRIPTYLINE 50 MG TAB PO SCH (20:19)
[2018-08-09 22:00] VITALS: BP 174/75
[2018-08-10] MEDS: PERCOCET 5MG/325MG TAB PO PRN ×4 (02:38→20:38)
[2018-08-10 06:00] VITALS: BP 151/74
[2018-08-10] MEDS: DICLOFENAC EPOLAMINE 1.3 % PATCH TOP SCH ×2 (06:10→17:34)
[2018-08-10 07:06] LABS: INR 1.66; PROTHROMBIN TIME 19.9 SECONDS (12.1-14.4)
[2018-08-10] MEDS: FLUTICASONE HFA 110 MCG 12 GM INHALER (FLOVENT) INH SCH ×2 (07:54→21:23)
[2018-08-10] MEDS: VITAMIN D 1,000 INTERNATIONAL UNITS TABLET PO SCH ×2 (09:00→20:39)
[2018-08-10] MEDS: DOCUSATE SODIUM 100 MG CAP PO SCH ×3 (09:00→20:55)
[2018-08-10] MEDS: NEOSPORIN TOP OINT 15GM TOP SCH (09:00)
[2018-08-10] MEDS: CLOTRIMAZOLE 1% TOPICAL CREAM 30GM TOP SCH ×2 (09:00→20:41)
[2018-08-10] MEDS: MULTIVITAMINS/MINERALS THERAP 1 TAB PO SCH (09:00)
[2018-08-10] MEDS: ASPIRIN 81 MG ENTERIC TAB PO SCH (10:18)
[2018-08-10] MEDS: LEVEMIR (INSULIN DETEMIR) 1 UNITS/0.01ML SC SCH ×2 (10:18→20:41)
[2018-08-10] MEDS: buPROPion **XL** TABLET 150MG (WELLBUTRIN XL) PO SCH (10:19)
[2018-08-10] MEDS: CARVedilol 12.5 MG TAB PO SCH ×2 (10:20→20:38)
[2018-08-10] MEDS: OMEPRAZOLE 20 MG CAP PO SCH ×2 (10:20→20:39)
[2018-08-10] MEDS: amLODIPine 5 MG TAB PO SCH ×2 (10:21→20:40)
[2018-08-10] MEDS: guaiFENesin ER 600 MG TAB PO SCH ×2 (10:21→20:37)
[2018-08-10] MEDS: AMOXICILLIN 500 MG CAP PO SCH ×2 (10:22→20:37)
[2018-08-10] MEDS: **hydrALAZINE HCL** 25 MG TAB PO SCH ×3 (10:22→20:40)
[2018-08-10] MEDS: FUROSEMIDE 20 MG TAB PO SCH (10:23)
[2018-08-10] MEDS: MAGNESIUM OXIDE 400 MG TAB (MAG-OX) PO SCH ×3 (10:24→20:39)
[2018-08-10] MEDS: FAMOTIDINE 20 MG TAB PO SCH ×2 (10:25→20:39)
[2018-08-10] MEDS: GABAPENTIN 100 MG CAP PO SCH ×3 (10:25→20:36)
[2018-08-10] MEDS: ENALAPRIL MALEATE 10 MG TAB PO SCH ×2 (10:26→20:38)
[2018-08-10] MEDS: HumaLOG INSULIN (NovoLOG) PER UNIT SC SCH ×4 (10:26→20:20)
--- NOTE | 2018-08-10 10:27 | IPNPDOC ---
Date Seen The patient was seen on 08/10/18. 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 Dr. Izaguirre managing his wounds. no fever chills or pain. Objective: Vitals (See below) General: Sitting up in his wheelchair, no acute distress HEENT: Atraumatic, normocephalic. Mucous membranes are moist HEART: Regular rate and rhythm; and no murmurs, gallops, or rubs Lungs: Good auscultation bilaterally; no wheezes, rhonchi or rales Abdomen: Obese, normal active bowel sounds, no pain to palpation Extremities: No lower extremity edema. bilateral bandages. Laboratory data, Imaging studies, microbioloty: pls see below Assessment and plan: Mr. Herrera is 57-year-old male who in November 2016 after he had stepped on a nail and developed acute osteomyelitis of the calcaneus. Initial cultures with polymicrobial had Staphylococcus epidermidis, Prevotella melaninogenica and anaerobes. The patient was treated with IV antibiotics for 4-6 weeks with slow improvement. He came back in January 2017 with the same left heel wound and the cultures at that time were positive for methicillin-sensitive Staphylococcus aureus (MSSA) and strep viridans along with Prevotella Intermedia. In April of 2017 again the patient was hospitalized and had MSSA, Enterococcus Faecalis and Klebsiella. During all of those admissions, he was treated with IV antibiotics and at times oral antibiotics at home. Since then, he had been doing well. The wound has closed until when he saw Dr. Knapp for recurrence of the wound that opened up. He was treated conservatively with debridement. On June 16 the patient had purulent drainage, swelling and therefore was sent to the emergency room to be evaluated for further debridement and IV antibiotics. He denied having any fever or chills, no nausea, vomiting or diarrhea. No abdominal pain. He is on IV vancomycin and tolerating well. MRSA Left heal ulcer / Chronic osteomyelitis - Currently patient notes that he's feeling better, does not experience much pain - Currently, patient is nonweightbearing on his left foot - Patient has finished a course of doxycycline - Dr. Izaguirre, and Infectious disease, Dr. Ivory, on consultation; appreciate their input - 07/26/18 c/o nausea vomiting chills. cbc wnl. recheck lactic acid crp esr. cbc reviewed. History of right upper extremity DVT -Most recent INR 2.45, therapeutic. Right upper extremity ultrasound done 07/15/2018 still showed a nonocclusive thrombus in the right axillary vein. Patient will continue to need lifelong anticoagulation. HTN - BP well controlled - c/w Amlodipine, Carvedilol, Enalapril, Hydralazine, Furosemide DM2 with Neuropathy - c/w Metformin - c/w ISS and Levemir DLP - c/w Atorvastatin and ASA 81 DJD - c/w Tylenol PRN Depression - Amitriptyline, Bupropion, GERD - c/w Omeprazole and Famotidine DVT prophylaxis - c/w full anticoagulation with Coumadin Disposition: - Continue with physical therapy - Looking into placement options VS, [facility] Vital Sign[facility]/I&O Vital Signs Date Time Temp Pulse Resp B/P (MAP) Pulse Ox O2 Delivery O2 Flow Rate FiO2 08/10/18 06:00 98.4 78 18 151/74 (99) 96 I&O- Last 24 Hours up to 6 AM 08/10/18 06:00 Intake Total 2010 ml Output Total 2440 ml Balance -430 ml Laboratory Data 24H LABS Laboratory Tests 2 08/09/18 16:26: Bedside Glucose (Misc Panel) 159H 08/10/18 06:15: Prothrombin Time 19.9H, Prothromb Time International Ratio 1.66 Microbiology Microbiology 08/05/18 Group A Streptococcus Screen (ANTOINE) - Final, Complete 08/05/18 Group A Streptococcus Screen (ANTOINE) - Final, Complete DIPIKA ESPINOSA MD Aug 10, 2018 10:27
[2018-08-10] MEDS: metFORMIN (GLUCOPHAGE) 1000 MG TABLET PO SCH ×2 (10:32→17:35)
[2018-08-10 14:00] VITALS: BP 151/76
[2018-08-10] MEDS: WARFARIN SOD 4 MG TAB PO SCH (17:35)
[2018-08-10] MEDS: AMITRIPTYLINE 50 MG TAB PO SCH (20:38)
[2018-08-10] MEDS: ATORVASTATIN 10 MG TAB PO SCH (20:39)
[2018-08-10 22:00] VITALS: BP 182/78
[2018-08-11] MEDS: DICLOFENAC EPOLAMINE 1.3 % PATCH TOP SCH ×2 (05:10→18:46)
[2018-08-11] MEDS: PERCOCET 5MG/325MG TAB PO PRN ×5 (05:11→23:46)
[2018-08-11 06:00] VITALS: BP 177/77
[2018-08-11 08:30] VITALS: BP 160/84
[2018-08-11] MEDS: FLUTICASONE HFA 110 MCG 12 GM INHALER (FLOVENT) INH SCH ×2 (08:43→19:44)
[2018-08-11] MEDS: LEVEMIR (INSULIN DETEMIR) 1 UNITS/0.01ML SC SCH ×2 (10:16→22:00)
[2018-08-11] MEDS: HumaLOG INSULIN (NovoLOG) PER UNIT SC SCH ×4 (10:16→21:00)
[2018-08-11] MEDS: VITAMIN D 1,000 INTERNATIONAL UNITS TABLET PO SCH ×2 (10:17→21:57)
[2018-08-11] MEDS: MAGNESIUM OXIDE 400 MG TAB (MAG-OX) PO SCH ×3 (10:18→21:58)
[2018-08-11] MEDS: MULTIVITAMINS/MINERALS THERAP 1 TAB PO SCH (10:18)
[2018-08-11] MEDS: AMOXICILLIN 500 MG CAP PO SCH ×2 (10:18→21:59)
[2018-08-11] MEDS: buPROPion **XL** TABLET 150MG (WELLBUTRIN XL) PO SCH (10:19)
[2018-08-11] MEDS: ENALAPRIL MALEATE 10 MG TAB PO SCH ×2 (10:20→21:59)
[2018-08-11] MEDS: guaiFENesin ER 600 MG TAB PO SCH ×2 (10:20→21:58)
[2018-08-11] MEDS: FUROSEMIDE 20 MG TAB PO SCH (10:20)
[2018-08-11] MEDS: GABAPENTIN 100 MG CAP PO SCH ×3 (10:21→21:58)
[2018-08-11] MEDS: FAMOTIDINE 20 MG TAB PO SCH ×2 (10:21→21:59)
[2018-08-11] MEDS: OMEPRAZOLE 20 MG CAP PO SCH ×2 (10:21→21:58)
[2018-08-11] MEDS: DOCUSATE SODIUM 100 MG CAP PO SCH ×2 (10:21→19:31)
[2018-08-11] MEDS: **hydrALAZINE HCL** 25 MG TAB PO SCH ×3 (10:22→21:59)
[2018-08-11] MEDS: ASPIRIN 81 MG ENTERIC TAB PO SCH (10:22)
[2018-08-11] MEDS: CARVedilol 12.5 MG TAB PO SCH ×2 (10:22→21:59)
[2018-08-11] MEDS: amLODIPine 5 MG TAB PO SCH ×2 (10:22→21:58)
[2018-08-11] MEDS: CLOTRIMAZOLE 1% TOPICAL CREAM 30GM TOP SCH ×2 (10:24→22:00)
[2018-08-11] MEDS: NEOSPORIN TOP OINT 15GM TOP SCH (10:24)
[2018-08-11] MEDS: metFORMIN (GLUCOPHAGE) 1000 MG TABLET PO SCH ×2 (10:26→18:46)
[2018-08-11 11:00] LABS: INR 1.91; PROTHROMBIN TIME 22.2 SECONDS (12.1-14.4)
[2018-08-11 11:16] LABS: CALCIUM LEVEL 9.7 MG/DL (8.5-10.1); CREATININE FOR GFR 1.73 MG/DL (0.70-1.30); GLOMERULAR FILTRATION RATE 43.6 (>56); POTASSIUM SERUM 4.9 MEQ/L (3.5-5.1)
[2018-08-11] MEDS: WARFARIN SOD 4 MG TAB PO SCH (16:05)
[2018-08-11] MEDS: ATORVASTATIN 10 MG TAB PO SCH (21:59)
[2018-08-11] MEDS: AMITRIPTYLINE 50 MG TAB PO SCH (21:59)
[2018-08-11 22:00] VITALS: BP 176/78
[2018-08-12] MEDS: PERCOCET 5MG/325MG TAB PO PRN ×4 (03:51→21:00)
[2018-08-12] MEDS: DICLOFENAC EPOLAMINE 1.3 % PATCH TOP SCH ×2 (05:00→17:57)
[2018-08-12 06:00] VITALS: BP 163/74
[2018-08-12 06:40] LABS: INR 1.9; PROTHROMBIN TIME 22.1 SECONDS (12.1-14.4)
[2018-08-12] MEDS: FUROSEMIDE 20 MG TAB PO SCH (08:10)
[2018-08-12] MEDS: AMOXICILLIN 500 MG CAP PO SCH ×2 (08:10→21:00)
[2018-08-12] MEDS: metFORMIN (GLUCOPHAGE) 1000 MG TABLET PO SCH ×2 (08:11→17:56)
[2018-08-12] MEDS: **hydrALAZINE HCL** 25 MG TAB PO SCH ×3 (08:11→21:02)
[2018-08-12] MEDS: ENALAPRIL MALEATE 10 MG TAB PO SCH ×2 (08:12→21:01)
[2018-08-12] MEDS: OMEPRAZOLE 20 MG CAP PO SCH ×2 (08:12→21:03)
[2018-08-12] MEDS: guaiFENesin ER 600 MG TAB PO SCH ×2 (08:12→21:03)
[2018-08-12] MEDS: amLODIPine 5 MG TAB PO SCH ×2 (08:13→21:03)
[2018-08-12] MEDS: MULTIVITAMINS/MINERALS THERAP 1 TAB PO SCH (08:13)
[2018-08-12] MEDS: FAMOTIDINE 20 MG TAB PO SCH ×2 (08:13→21:02)
[2018-08-12] MEDS: GABAPENTIN 100 MG CAP PO SCH ×3 (08:13→21:03)
[2018-08-12] MEDS: CARVedilol 12.5 MG TAB PO SCH ×2 (08:13→21:02)
[2018-08-12] MEDS: buPROPion **XL** TABLET 150MG (WELLBUTRIN XL) PO SCH (08:14)
[2018-08-12] MEDS: MAGNESIUM OXIDE 400 MG TAB (MAG-OX) PO SCH ×3 (08:14→21:00)
[2018-08-12] MEDS: VITAMIN D 1,000 INTERNATIONAL UNITS TABLET PO SCH ×2 (08:14→21:01)
[2018-08-12] MEDS: ASPIRIN 81 MG ENTERIC TAB PO SCH (08:15)
[2018-08-12] MEDS: LEVEMIR (INSULIN DETEMIR) 1 UNITS/0.01ML SC SCH ×2 (08:16→21:04)
[2018-08-12] MEDS: DOCUSATE SODIUM 100 MG CAP PO SCH ×2 (08:17→21:03)
[2018-08-12] MEDS: CLOTRIMAZOLE 1% TOPICAL CREAM 30GM TOP SCH ×2 (08:17→21:00)
[2018-08-12] MEDS: HumaLOG INSULIN (NovoLOG) PER UNIT SC SCH ×4 (08:17→21:00)
[2018-08-12] MEDS: NEOSPORIN TOP OINT 15GM TOP SCH (08:18)
[2018-08-12] MEDS ORDERED: ENOXAPARIN 150 MG/ML SYR (J1650) SC ONE (11:00)
[2018-08-12] MEDS: FLUTICASONE HFA 110 MCG 12 GM INHALER (FLOVENT) INH SCH ×2 (11:40→21:00)
[2018-08-12] MEDS: WARFARIN SOD 4 MG TAB PO SCH (17:57)
[2018-08-12] MEDS: AMITRIPTYLINE 50 MG TAB PO SCH (21:02)
[2018-08-12] MEDS: ATORVASTATIN 10 MG TAB PO SCH (21:02)
[2018-08-13] MEDS: PERCOCET 5MG/325MG TAB PO PRN ×4 (04:01→22:02)
[2018-08-13 06:00] VITALS: BP 162/70
[2018-08-13 06:07] LABS: PROTHROMBIN TIME 23.1 SECONDS (12.1-14.4)
[2018-08-13] MEDS: DICLOFENAC EPOLAMINE 1.3 % PATCH TOP SCH ×2 (06:29→17:36)
[2018-08-13] MEDS: FLUTICASONE HFA 110 MCG 12 GM INHALER (FLOVENT) INH SCH ×2 (07:31→21:00)
[2018-08-13] MEDS: HumaLOG INSULIN (NovoLOG) PER UNIT SC SCH ×4 (08:27→21:00)
[2018-08-13] MEDS: LEVEMIR (INSULIN DETEMIR) 1 UNITS/0.01ML SC SCH ×2 (08:28→21:00)
[2018-08-13] MEDS: **hydrALAZINE HCL** 25 MG TAB PO SCH ×3 (08:29→22:08)
[2018-08-13] MEDS: AMOXICILLIN 500 MG CAP PO SCH (08:29)
[2018-08-13] MEDS: FUROSEMIDE 20 MG TAB PO SCH (08:29)
[2018-08-13] MEDS: guaiFENesin ER 600 MG TAB PO SCH ×2 (08:30→22:02)
[2018-08-13] MEDS: ENALAPRIL MALEATE 10 MG TAB PO SCH ×2 (08:30→22:07)
[2018-08-13] MEDS: CARVedilol 12.5 MG TAB PO SCH ×2 (08:30→22:04)
[2018-08-13] MEDS: MAGNESIUM OXIDE 400 MG TAB (MAG-OX) PO SCH ×3 (08:31→22:06)
[2018-08-13] MEDS: MULTIVITAMINS/MINERALS THERAP 1 TAB PO SCH (08:31)
[2018-08-13] MEDS: amLODIPine 5 MG TAB PO SCH ×2 (08:31→22:06)
[2018-08-13] MEDS: FAMOTIDINE 20 MG TAB PO SCH ×2 (08:32→22:05)
[2018-08-13] MEDS: metFORMIN (GLUCOPHAGE) 1000 MG TABLET PO SCH ×2 (08:32→17:37)
[2018-08-13] MEDS: buPROPion **XL** TABLET 150MG (WELLBUTRIN XL) PO SCH (08:32)
[2018-08-13] MEDS: VITAMIN D 1,000 INTERNATIONAL UNITS TABLET PO SCH ×2 (08:32→22:03)
[2018-08-13] MEDS: GABAPENTIN 100 MG CAP PO SCH ×3 (08:32→22:05)
[2018-08-13] MEDS: OMEPRAZOLE 20 MG CAP PO SCH ×2 (08:32→22:05)
[2018-08-13] MEDS: ASPIRIN 81 MG ENTERIC TAB PO SCH (08:32)
[2018-08-13] MEDS: CLOTRIMAZOLE 1% TOPICAL CREAM 30GM TOP SCH ×2 (08:33→21:18)
[2018-08-13] MEDS: DOCUSATE SODIUM 100 MG CAP PO SCH ×2 (08:33→21:00)
[2018-08-13] MEDS: NEOSPORIN TOP OINT 15GM TOP SCH (08:34)
[2018-08-13] MEDS ORDERED: AUGMENTIN 875 MG TAB PO ONE (09:15)
[2018-08-13 09:35] LABS: BASO # 0.2 10^3/uL (0.0-0.2); BASO % 2.3 % (0.0-1.0); EOS # 0.5 10^3/uL (0.0-0.50); HEMATOCRIT 46.7 % (42.0-52.0); LYMPH # 1.6 10^3/uL (1.5-4.5); LYMPH % 20.7 % (24.0-44.0); MEAN CORPUSCULAR HEMOGLOBIN 24.2 pg (27.0-33.0); MEAN CORPUSCULAR VOLUME 80.8 fl (80.0-96.0); MONO # 0.4 10^3/uL (0.0-0.8); MONO % 5.9 % (0.0-5.0); NEUTROPHILS # 4.8 10^3/uL (1.8-7.7); NEUTROPHILS % 63.4 % (36.0-66.0); PLATELET COUNT, AUTOMATED 415 10^3/uL (150-450); RED BLOOD COUNT 5.78 10^6/uL (4.30-6.10); WHITE BLOOD COUNT 7.5 10^3/uL (4.0-10.0)
--- NOTE | 2018-08-13 10:44 | REP ---
MAXILLOFACIAL CT WITHOUT CONTRAST: HISTORY: Abscess. A BB was placed on the left side of the face at the level of the mandibular symphysis. Minimal mucosal thickening is present in the right maxillary sinus. The remaining sinuses are clear. The osteomeatal units are patent. The middle and inferior nasal turbinates are partially paradoxical. The nasal septum is midline. The cribriform plate, medial emery of the orbits, and optic canals are intact. There is aeration of the right anterior clinoid process. The carotid canals form a segment of the posterolateral emery of the sphenoid sinus. Contents of the orbits are normal. The naso, katerina- and hypopharynx are normal in appearance. An enlarged lymph node 1.6 cm in width is present in the right internal jugular chain at the level of the oropharynx. An enlarged lymph node 2.1 cm in width is present in the left internal jugular chain at the level of the oropharynx. IMPRESSION: There are two enlarged lymph nodes in the internal jugular chains as described above. Electronically Signed by Mario Rodriguez MD 08/13/2018 10:46 A
[2018-08-13] MEDS ORDERED: NS 1,000 ML IV ONE (11:00)
[2018-08-13 14:00] VITALS: BP 140/90
[2018-08-13] MEDS: WARFARIN SOD 4 MG TAB PO SCH (17:37)
[2018-08-13] MEDS ORDERED: SODIUM CHLORIDE 0.9% 1000ML IV ONE (18:30)
--- NOTE | 2018-08-13 18:58 | IPNPDOC ---
Date Seen The patient was seen on 08/13/18. Progress Note Left gingival odontogenic infection with Lactic Acidosis: Plan: clinically, pt has left cervical lymphadenopathy with a tender 2cm tender gingival lesion on exam. No fever or facial erythema. CT Neck: LAD. no abscess or fistula noted. ESR and CRP are wnl. However,due to failure to resolve with amoxicillin po,pt will be made into acute status for iv fluids and iv unasyn. If clinical improvement is seen in 3 days, may transition back to po augmentin to complete a 7days course. if no improvement and progresses to a gingival abscess, OMFS consult for drainage. VS, I&O, 24H, Fishbone Vital Signs/I&O Vital Signs Date Time Temp Pulse Resp B/P (MAP) Pulse Ox O2 Delivery O2 Flow Rate FiO2 08/13/18 15:53 148/72 08/13/18 14:27 18 08/13/18 14:00 97.5 91 92 I&O- Last 24 Hours up to 6 AM 08/13/18 05:59 Intake Total 2010 ml Output Total 1800 ml Balance 210 ml Laboratory Data 24H LABS Laboratory Tests 2 08/13/18 05:34: Prothrombin Time 23.1H, Prothromb Time International Ratio 2.00 08/13/18 09:22: Immature Granulocyte % (Auto) 0.7, White Blood Count 7.5, Red Blood Count 5.78, Hemoglobin 14.0, Hematocrit 46.7, Mean Corpuscular Volume 80.8, Mean Corpuscular Hemoglobin 24.2L, Mean Corpuscular Hemoglobin Concent 30.0L, Red Cell Distribution Width 17.6H, Platelet Count 415, Neutrophils (%) (Auto) 63.4, Lymphocytes (%) (Auto) 20.7L, Monocytes (%) (Auto) 5.9H, Eosinophils (%) (Auto) 7.0H, Basophils (%) (Auto) 2.3H, Neutrophils # (Auto) 4.8, Lymphocytes # (Auto) 1.6, Monocytes # (Auto) 0.4, Eosinophils # (Auto) 0.5, Basophils # (Auto) 0.2, Nucleated Red Blood Cells % (auto) 0.3H, Erythrocyte Sedimentation Rate 3, Lactic Acid Level 2.1*H, C-Reactive Protein, Quantitative < 0.30 08/13/18 13:57: Lactic Acid Followup at 4 Hours 2.5*H 08/13/18 17:06: Bedside Glucose (Misc Panel) 132H CBC/BMP Laboratory Tests 08/13/18 09:22 Red Blood Count 5.78, Mean Corpuscular Volume 80.8, Mean Corpuscular Hemoglobin 24.2 L, Mean Corpuscular Hemoglobin Concent 30.0 L, Red Cell Distribution Width 17.6 H, Neutrophils (%) (Auto) 63.4, Lymphocytes (%) (Auto) 20.7 L, Monocytes (%) (Auto) 5.9 H, Eosinophils (%) (Auto) 7.0 H, Basophils (%) (Auto) 2.3 H, Neutrophils # (Auto) 4.8, Lymphocytes # (Auto) 1.6, Monocytes # (Auto) 0.4, Eosinophils # (Auto) 0.5, Basophils # (Auto) 0.2 Microbiology Microbiology 08/05/18 Group A Streptococcus Screen (ANTOINE) - Final, Complete 08/05/18 Group A Streptococcus Screen (ANTOINE) - Final, Complete DIPIKA ESPINOSA MD Aug 13, 2018 18:58
[2018-08-13] MEDS ORDERED: NS 1,000 ML IV SCH (19:30)
[2018-08-13] MEDS ORDERED: AUGMENTIN 875 MG TAB PO SCH (21:00)
[2018-08-13] MEDS: AMPICILLIN SOD/SULBACTAM SOD 3 GM in D5W MINI-BAG PLUS 100 ML IV SCH ×2 (21:14→23:17)
[2018-08-13] MEDS: AMITRIPTYLINE 50 MG TAB PO SCH (22:05)
[2018-08-13] MEDS: LACTOBACILLUS ACIDOPHILUS CAP (BACID) PO SCH (22:06)
[2018-08-13] MEDS: ATORVASTATIN 10 MG TAB PO SCH (22:09)
[2018-08-14] MEDS: PERCOCET 5MG/325MG TAB PO PRN ×5 (04:56→22:43)
[2018-08-14] MEDS: DICLOFENAC EPOLAMINE 1.3 % PATCH TOP SCH ×2 (05:00→18:00)
[2018-08-14] MEDS: AMPICILLIN SOD/SULBACTAM SOD 3 GM in D5W MINI-BAG PLUS 100 ML IV SCH ×4 (05:00→23:06)
[2018-08-14 06:00] VITALS: BP 143/76
[2018-08-14] MEDS: HumaLOG INSULIN (NovoLOG) PER UNIT SC SCH ×4 (07:30→20:04)
[2018-08-14] MEDS: FLUTICASONE HFA 110 MCG 12 GM INHALER (FLOVENT) INH SCH ×2 (07:49→21:04)
[2018-08-14] MEDS: GABAPENTIN 100 MG CAP PO SCH ×3 (08:48→21:10)
[2018-08-14] MEDS: ASPIRIN 81 MG ENTERIC TAB PO SCH (08:48)
[2018-08-14] MEDS: buPROPion **XL** TABLET 150MG (WELLBUTRIN XL) PO SCH (08:48)
[2018-08-14] MEDS: LACTOBACILLUS ACIDOPHILUS CAP (BACID) PO SCH ×4 (08:49→21:10)
[2018-08-14] MEDS: metFORMIN (GLUCOPHAGE) 1000 MG TABLET PO SCH ×2 (08:49→18:00)
[2018-08-14] MEDS: VITAMIN D 1,000 INTERNATIONAL UNITS TABLET PO SCH ×2 (08:49→21:10)
[2018-08-14] MEDS: **hydrALAZINE HCL** 25 MG TAB PO SCH ×3 (08:49→21:12)
[2018-08-14] MEDS: guaiFENesin ER 600 MG TAB PO SCH ×2 (08:50→21:10)
[2018-08-14] MEDS: OMEPRAZOLE 20 MG CAP PO SCH ×2 (08:50→21:10)
[2018-08-14] MEDS: MULTIVITAMINS/MINERALS THERAP 1 TAB PO SCH (08:50)
[2018-08-14] MEDS: FAMOTIDINE 20 MG TAB PO SCH ×2 (08:50→21:10)
[2018-08-14] MEDS: MAGNESIUM OXIDE 400 MG TAB (MAG-OX) PO SCH ×3 (08:51→21:11)
[2018-08-14] MEDS: FUROSEMIDE 20 MG TAB PO SCH (08:51)
[2018-08-14] MEDS: ENALAPRIL MALEATE 10 MG TAB PO SCH ×2 (08:52→21:11)
[2018-08-14] MEDS: amLODIPine 5 MG TAB PO SCH ×2 (08:52→21:10)
[2018-08-14] MEDS: CLOTRIMAZOLE 1% TOPICAL CREAM 30GM TOP SCH ×2 (08:53→21:13)
[2018-08-14] MEDS: LEVEMIR (INSULIN DETEMIR) 1 UNITS/0.01ML SC SCH ×2 (08:53→21:12)
[2018-08-14] MEDS: NEOSPORIN TOP OINT 15GM TOP SCH (08:54)
[2018-08-14] MEDS: DOCUSATE SODIUM 100 MG CAP PO SCH ×2 (08:55→19:26)
[2018-08-14] MEDS: CARVedilol 12.5 MG TAB PO SCH ×2 (08:55→21:11)
[2018-08-14 09:12] LABS: BASO # 0.2 10^3/uL (0.0-0.2); BASO % 2.1 % (0.0-1.0); EOS # 0.6 10^3/uL (0.0-0.50); HEMATOCRIT 44.6 % (42.0-52.0); HEMOGLOBIN 13.5 g/dl (13.5-17.5); LYMPH # 1.9 10^3/uL (1.5-4.5); LYMPH % 20.9 % (24.0-44.0); MEAN CORPUSCULAR HEMOGLOBIN 23.8 pg (27.0-33.0); MEAN CORPUSCULAR HGB CONC 30.3 g/dl (32.0-36.5); MEAN CORPUSCULAR VOLUME 78.5 fl (80.0-96.0); MONO # 0.6 10^3/uL (0.0-0.8); MONO % 6.6 % (0.0-5.0); NEUTROPHILS # 5.5 10^3/uL (1.8-7.7); PLATELET COUNT, AUTOMATED 440 10^3/uL (150-450); RED BLOOD COUNT 5.68 10^6/uL (4.30-6.10); WHITE BLOOD COUNT 8.8 10^3/uL (4.0-10.0)
[2018-08-14 09:21] LABS: BLOOD UREA NITROGEN 22 MG/DL (7-18); C REACTIVE PROTEIN QUANTITATIV < 0.30 MG/DL (0.00-0.30); CALCIUM LEVEL 9.6 MG/DL (8.5-10.1); CARBON DIOXIDE LEVEL 29 MEQ/L (21-32); CHLORIDE LEVEL 109 MEQ/L (98-107); CREATININE FOR GFR 1.48 MG/DL (0.70-1.30); GLOMERULAR FILTRATION RATE 52.2 (>56); GLUCOSE, FASTING 97 MG/DL (70-100); POTASSIUM SERUM 4.3 MEQ/L (3.5-5.1); SODIUM LEVEL 144 MEQ/L (136-145)
[2018-08-14 09:38] LABS: ERYTHROCYTE SEDIMENTATION RATE 2 mm/hr (0-20)
[2018-08-14] MEDS: WARFARIN SOD 4 MG TAB PO SCH (17:59)
--- NOTE | 2018-08-14 18:37 | IPNPDOC ---
Date Seen The patient was seen on 08/14/18. Progress Note Subjective: pt was made acute due to failure to respond to po amoxicillin for gingival infection. no abscess or sinus tract on CT Neck. NO fever or chills overnight. Feels less tenderness since unasyn was started 08/13/18. Objective: Vitals (See below) General: Sitting up in his wheelchair, no acute distress HEENT: Atraumatic, normocephalic. Mucous membranes are moist left cervical LAD, tender left gingival swelling HEART: Regular rate and rhythm; and no murmurs, gallops, or rubs Lungs: Good auscultation bilaterally; no wheezes, rhonchi or rales Abdomen: Obese, normal active bowel sounds, no pain to palpation Extremities: No lower extremity edema. bilateral bandages. Laboratory data, Imaging studies, microbioloty: pls see below Assessment and plan: Mr. Herrera is 57-year-old male who in November 2016 after he had stepped on a nail and developed acute osteomyelitis of the calcaneus. Initial cultures with polymicrobial had Staphylococcus epidermidis, Prevotella melaninogenica and anaerobes. The patient was treated with IV antibiotics for 4-6 weeks with slow improvement. He came back in January 2017 with the same left heel wound and the cultures at that time were positive for methicillin-sensitive Staphylococcus aureus (MSSA) and strep viridans along with Prevotella Intermedia. In April of 2017 again the patient was hospitalized and had MSSA, Enterococcus Faecalis and Klebsiella. During all of those admissions, he was treated with IV antibiotics and at times oral antibiotics at home. Since then, he had been doing well. The wound has closed until when he saw Dr. Knapp for recurrence of the wound that opened up. He was treated conservatively with debridement. On June 16 the patient had purulent drainage, swelling and therefore was sent to the emergency room to be evaluated for further debridement and IV antibiotics. He denied having any fever or chills, no nausea, vomiting or diarrhea. No abdominal pain. He is on IV vancomycin and tolerating well. MRSA Left heal ulcer / Chronic osteomyelitis - Currently patient notes that he's feeling better, does not experience much pain - Currently, patient is nonweightbearing on his left foot - Patient has finished a course of doxycycline - Dr. Izaguirre, and Infectious disease, Dr. Dianelys, on consultation; appreciate their input - 3/4/19 c/o nausea vomiting chills. cbc wnl. recheck lactic acid crp esr. cbc reviewed. left gingival infection with lactic acidosis -failed on amoxicillin despite completing a course. on unasyn iv started 08/13/18 and bacid History of right upper extremity DVT -Most recent INR 2.45, therapeutic. Right upper extremity ultrasound done 07/15/2018 still showed a nonocclusive thrombus in the right axillary vein. Patient will continue to need lifelong anticoagulation. HTN - BP well controlled - c/w Amlodipine, Carvedilol, Enalapril, Hydralazine, Furosemide DM2 with Neuropathy - c/w Metformin - c/w ISS and Levemir DLP - c/w Atorvastatin and ASA 81 DJD - c/w Tylenol PRN Depression - Amitriptyline, Bupropion, GERD - c/w Omeprazole and Famotidine DVT prophylaxis - c/w full anticoagulation with Coumadin Disposition: changed to acute status due to ongoing dental infection despite po amoxicillin. VS, I&O, 24H, [facility] Vital Signs/I&O Vital Signs Date Time Temp Pulse Resp B/P (MAP) Pulse Ox O2 Delivery O2 Flow Rate FiO2 08/14/18 18:01 18 08/14/18 16:08 142/78 08/14/18 08:52 78 08/14/18 06:00 97.0 91 I&O- Last 24 Hours up to 6 AM 08/14/18 06:00 Intake Total 1690 ml Output Total 1700 ml Balance -10 ml Laboratory Data 24H LABS Laboratory Tests 2 08/13/18 20:19: Bedside Glucose (Misc Panel) 161H 08/14/18 05:57: Bedside Glucose (Misc Panel) 185H 08/14/18 08:45: Immature Granulocyte % (Auto) 1.4, White Blood Count 8.8, Red Blood Count 5.68, Hemoglobin 13.5, Hematocrit 44.6, Mean Corpuscular Volume 78.5L, Mean Corpuscular Hemoglobin 23.8L, Mean Corpuscular Hemoglobin Concent 30.3L, Red Cell Distribution Width 17.6H, Platelet Count 440, Neutrophils (%) (Auto) 62.0, Lymphocytes (%) (Auto) 20.9L, Monocytes (%) (Auto) 6.6H, Eosinophils (%) (Auto) 7.0H, Basophils (%) (Auto) 2.1H, Neutrophils # (Auto) 5.5, Lymphocytes # (Auto) 1.9, Monocytes # (Auto) 0.6, Eosinophils # (Auto) 0.6H, Basophils # (Auto) 0.2, Nucleated Red Blood Cells % (auto) 0.0, Erythrocyte Sedimentation Rate 2, Anion Gap 6L, Glomerular Filtration Rate 52.2L, Lactic Acid Level 1.0, Blood Urea Nitrogen 22H, Creatinine 1.48H, Sodium Level 144, Potassium Level 4.3, Chloride Level 109H, Carbon Dioxide Level 29, Calcium Level 9.6, C-Reactive Protein, Quantitative < 0.30 08/14/18 11:33: Bedside Glucose (Misc Panel) 143H 08/14/18 16:42: Bedside Glucose (Misc Panel) 187H CBC/BMP Laboratory Tests 08/14/18 08:45 Red Blood Count 5.68, Mean Corpuscular Volume 78.5 L, Mean Corpuscular Hemoglobin 23.8 L, Mean Corpuscular Hemoglobin Concent 30.3 L, Red Cell Distribution Width 17.6 H, Neutrophils (%) (Auto) 62.0, Lymphocytes (%) (Auto) 20.9 L, Monocytes (%) (Auto) 6.6 H, Eosinophils (%) (Auto) 7.0 H, Basophils (%) (Auto) 2.1 H, Neutrophils # (Auto) 5.5, Lymphocytes # (Auto) 1.9, Monocytes # (Auto) 0.6, Eosinophils # (Auto) 0.6 H, Basophils # (Auto) 0.2, Calcium Level 9.6 Microbiology Microbiology 08/05/18 Group A Streptococcus Screen (ANTOINE) - Final, Complete 08/05/18 Group A Streptococcus Screen (ANTOINE) - Final, Complete DIPIKA ESPINOSA MD Aug 14, 2018 18:37
[2018-08-14] MEDS: ATORVASTATIN 10 MG TAB PO SCH (21:10)
[2018-08-14] MEDS: AMITRIPTYLINE 50 MG TAB PO SCH (21:11)
[2018-08-14 22:00] VITALS: BP 146/88
[2018-08-15] MEDS: PERCOCET 5MG/325MG TAB PO PRN ×5 (05:28→21:39)
[2018-08-15] MEDS: DICLOFENAC EPOLAMINE 1.3 % PATCH TOP SCH ×2 (05:29→17:27)
[2018-08-15] MEDS: AMPICILLIN SOD/SULBACTAM SOD 3 GM in D5W MINI-BAG PLUS 100 ML IV SCH ×3 (05:29→17:28)
[2018-08-15 06:00] VITALS: BP 149/78
[2018-08-15] MEDS: HumaLOG INSULIN (NovoLOG) PER UNIT SC SCH ×4 (07:30→20:20)
[2018-08-15] MEDS: FLUTICASONE HFA 110 MCG 12 GM INHALER (FLOVENT) INH SCH ×2 (07:42→20:53)
[2018-08-15] MEDS: DOCUSATE SODIUM 100 MG CAP PO SCH ×2 (09:00→20:20)
[2018-08-15] MEDS: NEOSPORIN TOP OINT 15GM TOP SCH (09:00)
[2018-08-15] MEDS: MULTIVITAMINS/MINERALS THERAP 1 TAB PO SCH (09:20)
[2018-08-15] MEDS: guaiFENesin ER 600 MG TAB PO SCH ×2 (09:20→21:34)
[2018-08-15] MEDS: VITAMIN D 1,000 INTERNATIONAL UNITS TABLET PO SCH ×2 (09:20→21:35)
[2018-08-15] MEDS: OMEPRAZOLE 20 MG CAP PO SCH ×2 (09:20→21:35)
[2018-08-15] MEDS: LEVEMIR (INSULIN DETEMIR) 1 UNITS/0.01ML SC SCH ×2 (09:20→21:36)
[2018-08-15] MEDS: buPROPion **XL** TABLET 150MG (WELLBUTRIN XL) PO SCH (09:21)
[2018-08-15] MEDS: ENALAPRIL MALEATE 10 MG TAB PO SCH ×2 (09:21→21:35)
[2018-08-15] MEDS: metFORMIN (GLUCOPHAGE) 1000 MG TABLET PO SCH ×2 (09:21→17:27)
[2018-08-15] MEDS: GABAPENTIN 100 MG CAP PO SCH ×3 (09:21→21:34)
[2018-08-15] MEDS: MAGNESIUM OXIDE 400 MG TAB (MAG-OX) PO SCH ×3 (09:22→21:34)
[2018-08-15] MEDS: FUROSEMIDE 20 MG TAB PO SCH (09:22)
[2018-08-15] MEDS: LACTOBACILLUS ACIDOPHILUS CAP (BACID) PO SCH ×4 (09:22→21:35)
[2018-08-15] MEDS: FAMOTIDINE 20 MG TAB PO SCH ×2 (09:23→21:34)
[2018-08-15] MEDS: **hydrALAZINE HCL** 25 MG TAB PO SCH ×3 (09:23→21:36)
[2018-08-15] MEDS: ASPIRIN 81 MG ENTERIC TAB PO SCH (09:23)
[2018-08-15] MEDS: CARVedilol 12.5 MG TAB PO SCH ×2 (09:24→21:36)
[2018-08-15] MEDS: CLOTRIMAZOLE 1% TOPICAL CREAM 30GM TOP SCH ×2 (09:27→21:37)
[2018-08-15] MEDS: amLODIPine 5 MG TAB PO SCH ×2 (09:30→21:35)
--- NOTE | 2018-08-15 09:39 | IPNPDOC ---
Date Seen The patient was seen on 08/15/18. Progress Note Subjective: Left IV infiltrated 08/14/[address] with [address] attempts to place iv site. ecchymotic areas noted on left upper arm. INR therapeutic. pt was made acute due to failure to respond to po amoxicillin for gingival infection. no abscess or sinus tract on CT Neck. NO fever or chills overnight. Feels less tenderness since unasyn was started 08/13/18. Objective: Vitals (See below) General: Sitting up in his wheelchair, no acute distress HEENT: Atraumatic, normocephalic. Mucous membranes are moist left cervical LAD, tender left gingival swelling HEART: Regular rate and rhythm; and no murmurs, gallops, or rubs Lungs: Good auscultation bilaterally; no wheezes, rhonchi or rales Abdomen: Obese, normal active bowel sounds, no pain to palpation Extremities: No lower extremity edema. bilateral bandages. Laboratory data, Imaging studies, microbioloty: pls see below Assessment and plan: Mr. Herrera is 57-year-old male who in November 2016 after he had stepped on a nail and developed acute osteomyelitis of the calcaneus. Initial cultures with polymicrobial had Staphylococcus epidermidis, Prevotella melaninogenica and anaerobes. The patient was treated with IV antibiotics for 4-6 weeks with slow improvement. He came back in January 2017 with the same left heel wound and the cultures at that time were positive for methicillin-sensitive Staphylococcus aureus (MSSA) and strep viridans along with Prevotella Intermedia. In April of 2017 again the patient was hospitalized and had MSSA, Enterococcus Faecalis and Klebsiella. During all of those admissions, he was treated with IV antibiotics and at times oral antibiotics at home. Since then, he had been doing well. The wound has closed until when he saw Dr. Knapp for recurrence of the wound that opened up. He was treated conservatively with debridement. On June 16 the patient had purulent drainage, swelling and therefore was sent to the emergency room to be evaluated for further debridement and IV antibiotics. He denied having any fever or chills, no nausea, vomiting or diarrhea. No abdominal pain. He is on IV vancomycin and tolerating well. MRSA Left heal ulcer / Chronic osteomyelitis - Currently patient notes that he's feeling better, does not experience much pain - Currently, patient is nonweightbearing on his left foot - Patient has finished a course of doxycycline - Dr. Izaguirre, and Infectious disease, Dr. Ivory, on consultation; appreciate their input - 07/26/18 c/o nausea vomiting chills. cbc wnl. recheck lactic acid crp esr. cbc reviewed. left gingival infection with lactic acidosis -failed on amoxicillin despite completing a course. on unasyn iv started 08/13/18 and bacid Left arm IV infiltration warm compresses elevation no cellulitic changes therapeutic on warfarin, unlikely to be DVT History of right upper extremity DVT -Most recent INR 2.45, therapeutic. Right upper extremity ultrasound done 07/15/2018 still showed a nonocclusive thrombus in the right axillary vein. Patient will continue to need lifelong anticoagulation. HTN - BP well controlled - c/w Amlodipine, Carvedilol, Enalapril, Hydralazine, Furosemide DM2 with Neuropathy - c/w Metformin - c/w ISS and Levemir DLP - c/w Atorvastatin and ASA 81 DJD - c/w Tylenol PRN Depression - Amitriptyline, Bupropion, GERD - c/w Omeprazole and Famotidine DVT prophylaxis - c/w full anticoagulation with Coumadin Disposition: changed to acute status due to ongoing dental infection despite po amoxicillin. VS, I&O, 24H, Fishbone Vital Signs/I&O Vital Signs Date Time Temp Pulse Resp B/P (MAP) Pulse Ox O2 Delivery O2 Flow Rate FiO2 08/15/18 09:27 18 08/15/18 09:24 79 149/78 08/15/18 06:00 97.5 94 I&O- Last 24 Hours up to 6 AM 08/15/18 06:00 Intake Total 2070 ml Output Total 3550 ml Balance -1480 ml Laboratory Data 24H LABS Laboratory Tests 2 08/14/18 11:33: Bedside Glucose (Misc Panel) 143H 08/14/18 16:42: Bedside Glucose (Misc Panel) 187H 08/14/18 20:03: Bedside Glucose (Misc Panel) 220H Microbiology Microbiology 08/05/18 Group A Streptococcus Screen (ANTOINE) - Final, Complete 08/05/18 Group A Streptococcus Screen (ANTOINE) - Final, Complete DIPIKA ESPINOSA MD Aug 15, 2018 09:39
[2018-08-15] MEDS: CEPACOL LOZENGE PO PRN ×3 (10:34→21:38)
[2018-08-15 14:00] VITALS: BP 166/86
[2018-08-15] MEDS: WARFARIN SOD 4 MG TAB PO SCH (17:27)
[2018-08-15] MEDS: AMITRIPTYLINE 50 MG TAB PO SCH (21:33)
[2018-08-15] MEDS: ATORVASTATIN 10 MG TAB PO SCH (21:33)
[2018-08-15 22:00] VITALS: BP 170/90
[2018-08-16] MEDS: PERCOCET 5MG/325MG TAB PO PRN ×3 (05:07→20:46)
[2018-08-16] MEDS: DICLOFENAC EPOLAMINE 1.3 % PATCH TOP SCH ×2 (05:08→18:16)
[2018-08-16 06:00] VITALS: BP 172/80
[2018-08-16 06:02] LABS: INR 2.81; PROTHROMBIN TIME 30.2 SECONDS (12.1-14.4)
[2018-08-16] MEDS: FLUTICASONE HFA 110 MCG 12 GM INHALER (FLOVENT) INH SCH ×2 (07:31→21:00)
[2018-08-16] MEDS: LACTOBACILLUS ACIDOPHILUS CAP (BACID) PO SCH ×4 (08:00→20:27)
[2018-08-16] MEDS: NEOSPORIN TOP OINT 15GM TOP SCH (09:00)
[2018-08-16] MEDS: DOCUSATE SODIUM 100 MG CAP PO SCH ×2 (09:00→20:28)
[2018-08-16 09:15] LABS: HEMATOCRIT 44.2 % (42.0-52.0); HEMOGLOBIN 13.3 g/dl (13.5-17.5); MEAN CORPUSCULAR HGB CONC 30.1 g/dl (32.0-36.5); MEAN CORPUSCULAR VOLUME 79.8 fl (80.0-96.0); PLATELET COUNT, AUTOMATED 434 10^3/uL (150-450); RED BLOOD COUNT 5.54 10^6/uL (4.30-6.10); WHITE BLOOD COUNT 8.6 10^3/uL (4.0-10.0)
[2018-08-16 09:20] LABS: CALCIUM LEVEL 8.9 MG/DL (8.5-10.1); CREATININE FOR GFR 1.72 MG/DL (0.70-1.30); GLOMERULAR FILTRATION RATE 43.9 (>56); POTASSIUM SERUM 4.6 MEQ/L (3.5-5.1)
[2018-08-16] MEDS ORDERED: MONTELUKAST 10 MG TAB PO ONE (09:30)
[2018-08-16] MEDS ORDERED: LORATADINE 10 MG TAB PO ONE (09:30)
[2018-08-16] MEDS ORDERED: CEPACOL LOZENGE PO ONE (09:30)
[2018-08-16] MEDS ORDERED: CHLORASEPTIC SPRAY MT PRN (09:30)
--- NOTE | 2018-08-16 09:37 | IPNPDOC ---
Date Seen The patient was seen on 08/16/18. Progress Note Subjective: iv unasyn discontinued 08/15/18 due to lack of iv access and clinical improvement. changed to po augmentin. Left IV infiltrated 08/14/18 with multiple attempts to place iv site. ecchymotic areas noted on left upper arm. INR therapeutic. pt was made acute due to failure to respond to po amoxicillin for gingival infection. no abscess or sinus tract on CT Neck. NO fever or chills overnight. Feels less tenderness since unasyn was started 08/13/18. Objective: Vitals (See below) General: Sitting up in his wheelchair, no acute distress HEENT: Atraumatic, normocephalic. Mucous membranes are moist left cervical LAD, tender left gingival swelling HEART: Regular rate and rhythm; and no murmurs, gallops, or rubs Lungs: Good auscultation bilaterally; no wheezes, rhonchi or rales Abdomen: Obese, normal active bowel sounds, no pain to palpation Extremities: No lower extremity edema. bilateral bandages. Laboratory data, Imaging studies, microbioloty: pls see below Assessment and plan: Mr. Herrera is 57-year-old male who in November 2016 after he had stepped on a nail and developed acute osteomyelitis of the calcaneus. Initial cultures with polymicrobial had Staphylococcus epidermidis, Prevotella melaninogenica and anaerobes. The patient was treated with IV antibiotics for 4-6 weeks with slow improvement. He came back in January 2017 with the same left heel wound and the cultures at that time were positive for methicillin-sensitive Staphylococcus aureus (MSSA) and strep viridans along with Prevotella Intermedia. In April of 2017 again the patient was hospitalized and had MSSA, Enterococcus Faecalis and Klebsiella. During all of those admissions, he was treated with IV antibiotics and at times oral antibiotics at home. Since then, he had been doing well. The wound has closed until when he saw Dr. Knapp for recurrence of the wound that opened up. He was treated conservatively with debridement. On June 16 the patient had purulent drainage, swelling and therefore was sent to the emergency room to be evaluated for further debridement and IV antibiotics. He denied having any fever or chills, no nausea, vomiting or diarrhea. No abdom inal pain. He is on IV vancomycin and tolerating well. MRSA Left heal ulcer / Chronic osteomyelitis - Currently patient notes that he's feeling better, does not experience much pain - Currently, patient is nonweightbearing on his left foot - Patient has finished a course of doxycycline - Dr. Izaguirre, and Infectious disease, Dr. Ivory, on consultation; appreciate their input - 07/26/18 c/o nausea vomiting chills. cbc wnl. recheck lactic acid crp esr. cbc reviewed. left gingival infection with lactic acidosis -failed on amoxicillin despite completing a course. on unasyn iv started 08/13/18-08/15/18 due to loss of iv access. on po augmentin and bacid Left arm IV infiltration warm compresses elevation no cellulitic changes therapeutic on warfarin, unlikely to be DVT History of right upper extremity DVT -Most recent INR 2.45, therapeutic. Right upper extremity ultrasound done 07/15/2018 still showed a nonocclusive thrombus in the right axillary vein. Patient will continue to need lifelong anticoagulation. HTN - BP well controlled - c/w Amlodipine, Carvedilol, Enalapril, Hydralazine, Furosemide DM2 with Neuropathy - c/w Metformin - c/w ISS and Levemir DLP - c/w Atorvastatin and ASA 81 DJD - c/w Tylenol PRN Depression - Amitriptyline, Bupropion, GERD - c/w Omeprazole and Famotidine DVT prophylaxis - c/w full anticoagulation with Coumadin Disposition: change to alc . VS, I&O, 24H, Fishbone Vital Signs/I&O Vital Signs Date Time Temp Pulse Resp B/P (MAP) Pulse Ox O2 Delivery O2 Flow Rate FiO2 08/16/18 06:00 98.1 83 20 172/80 (110) 98 I&O- Last 24 Hours up to 6 AM 08/16/18 06:00 Intake Total 1845 ml Output Total 2100 ml Balance -255 ml Laboratory Data 24H LABS Laboratory Tests 2 08/15/18 20:17: Bedside Glucose (Misc Panel) 108H 08/16/18 05:39: Prothrombin Time 30.2H, Prothromb Time International Ratio 2.81 DIPIKA ESPINOSA MD Aug 16, 2018 08:52
[2018-08-16] MEDS: LEVEMIR (INSULIN DETEMIR) 1 UNITS/0.01ML SC SCH ×2 (10:27→20:28)
[2018-08-16] MEDS: HumaLOG INSULIN (NovoLOG) PER UNIT SC SCH ×4 (10:28→20:28)
[2018-08-16] MEDS: VITAMIN D 1,000 INTERNATIONAL UNITS TABLET PO SCH ×2 (10:28→20:25)
[2018-08-16] MEDS: guaiFENesin ER 600 MG TAB PO SCH ×2 (10:29→20:38)
[2018-08-16] MEDS: MULTIVITAMINS/MINERALS THERAP 1 TAB PO SCH (10:29)
[2018-08-16] MEDS: FUROSEMIDE 20 MG TAB PO SCH (10:30)
[2018-08-16] MEDS: CARVedilol 12.5 MG TAB PO SCH ×2 (10:30→20:25)
[2018-08-16] MEDS: OMEPRAZOLE 20 MG CAP PO SCH ×2 (10:31→20:25)
[2018-08-16] MEDS: MAGNESIUM OXIDE 400 MG TAB (MAG-OX) PO SCH ×3 (10:31→20:24)
[2018-08-16] MEDS: ASPIRIN 81 MG ENTERIC TAB PO SCH (10:32)
[2018-08-16] MEDS: ENALAPRIL MALEATE 10 MG TAB PO SCH ×2 (10:32→20:27)
[2018-08-16] MEDS: GABAPENTIN 100 MG CAP PO SCH ×3 (10:32→20:38)
[2018-08-16] MEDS: FAMOTIDINE 20 MG TAB PO SCH ×2 (10:33→20:27)
[2018-08-16] MEDS: buPROPion **XL** TABLET 150MG (WELLBUTRIN XL) PO SCH (10:33)
[2018-08-16] MEDS: **hydrALAZINE** 50 MG TAB PO SCH ×3 (10:38→20:26)
[2018-08-16] MEDS: AUGMENTIN 875 MG TAB PO SCH ×2 (10:38→18:16)
[2018-08-16] MEDS: metFORMIN (GLUCOPHAGE) 1000 MG TABLET PO SCH ×2 (10:39→18:16)
[2018-08-16] MEDS: CLOTRIMAZOLE 1% TOPICAL CREAM 30GM TOP SCH ×2 (10:40→20:29)
[2018-08-16] MEDS ORDERED: CHLORASEPTIC SPRAY MT ONE (11:00)
--- NOTE | 2018-08-16 13:56 | IPN ---
DATE OF SERVICE: 08/16/2018 The patient is seen and examined. He denies new complaints of foot pain. Currently is having some soreness in his jaw from an infection. Lower extremity examination shows improvement in the granulation tissue plantar ulcer. No signs of infection. ASSESSMENT: 57-year-old male with left plantar heel wound. PLAN: The patient will be stable for discharge from podiatry standpoint as soon as his other medical issues are resolved. He should have followup with Dr. Knapp as soon as he is discharged for further wound care.
[2018-08-16 14:00] VITALS: BP 157/81
[2018-08-16] MEDS: WARFARIN SOD 4 MG TAB PO SCH (18:15)
[2018-08-16] MEDS: amLODIPine 10 MG TAB PO SCH (20:24)
[2018-08-16] MEDS: AMITRIPTYLINE 50 MG TAB PO SCH (20:25)
[2018-08-16] MEDS: ATORVASTATIN 10 MG TAB PO SCH (20:26)
[2018-08-16 22:00] VITALS: BP 148/70
[2018-08-17] MEDS: PERCOCET 5MG/325MG TAB PO PRN ×5 (00:51→21:27)
[2018-08-17] MEDS: DICLOFENAC EPOLAMINE 1.3 % PATCH TOP SCH ×2 (05:53→18:38)
[2018-08-17 06:00] VITALS: BP 157/84
[2018-08-17] MEDS: FLUTICASONE HFA 110 MCG 12 GM INHALER (FLOVENT) INH SCH ×2 (07:30→21:00)
[2018-08-17] MEDS: DOCUSATE SODIUM 100 MG CAP PO SCH ×2 (09:00→21:00)
[2018-08-17] MEDS: HumaLOG INSULIN (NovoLOG) PER UNIT SC SCH ×4 (09:36→21:00)
[2018-08-17] MEDS: LEVEMIR (INSULIN DETEMIR) 1 UNITS/0.01ML SC SCH ×2 (09:37→21:14)
[2018-08-17] MEDS: LORATADINE 10 MG TAB PO SCH (09:37)
[2018-08-17] MEDS: MULTIVITAMINS/MINERALS THERAP 1 TAB PO SCH (09:37)
[2018-08-17] MEDS: VITAMIN D 1,000 INTERNATIONAL UNITS TABLET PO SCH ×2 (09:38→21:18)
[2018-08-17] MEDS: MAGNESIUM OXIDE 400 MG TAB (MAG-OX) PO SCH ×3 (09:38→21:16)
[2018-08-17] MEDS: AUGMENTIN 875 MG TAB PO SCH ×2 (09:39→18:38)
[2018-08-17] MEDS: LACTOBACILLUS ACIDOPHILUS CAP (BACID) PO SCH ×4 (09:39→21:18)
[2018-08-17] MEDS: guaiFENesin ER 600 MG TAB PO SCH ×2 (09:39→21:15)
[2018-08-17] MEDS: buPROPion **XL** TABLET 150MG (WELLBUTRIN XL) PO SCH (09:39)
[2018-08-17] MEDS: ASPIRIN 81 MG ENTERIC TAB PO SCH (09:39)
[2018-08-17] MEDS: GABAPENTIN 100 MG CAP PO SCH ×3 (09:39→21:18)
[2018-08-17] MEDS: FAMOTIDINE 20 MG TAB PO SCH ×2 (09:40→21:17)
[2018-08-17] MEDS: metFORMIN (GLUCOPHAGE) 1000 MG TABLET PO SCH ×2 (09:40→18:38)
[2018-08-17] MEDS: **hydrALAZINE** 50 MG TAB PO SCH ×3 (09:41→21:15)
[2018-08-17] MEDS: FUROSEMIDE 20 MG TAB PO SCH (09:41)
[2018-08-17] MEDS: OMEPRAZOLE 20 MG CAP PO SCH ×2 (09:41→21:18)
[2018-08-17] MEDS: CARVedilol 12.5 MG TAB PO SCH ×2 (09:42→21:17)
[2018-08-17] MEDS: ENALAPRIL MALEATE 10 MG TAB PO SCH ×2 (09:42→21:17)
[2018-08-17] MEDS: CLOTRIMAZOLE 1% TOPICAL CREAM 30GM TOP SCH ×2 (09:48→21:00)
[2018-08-17] MEDS: NEOSPORIN TOP OINT 15GM TOP SCH (09:48)
[2018-08-17] MEDS: MONTELUKAST 10 MG TAB PO SCH (09:54)
[2018-08-17] MEDS: WARFARIN SOD 4 MG TAB PO SCH (16:59)
[2018-08-17] MEDS: ATORVASTATIN 10 MG TAB PO SCH (21:16)
[2018-08-17] MEDS: AMITRIPTYLINE 50 MG TAB PO SCH (21:17)
[2018-08-17] MEDS: amLODIPine 10 MG TAB PO SCH (21:19)
[2018-08-18] MEDS: PERCOCET 5MG/325MG TAB PO PRN ×5 (02:36→22:11)
[2018-08-18 06:00] VITALS: BP 162/78
[2018-08-18] MEDS: DICLOFENAC EPOLAMINE 1.3 % PATCH TOP SCH ×2 (06:28→18:09)
[2018-08-18] MEDS: HumaLOG INSULIN (NovoLOG) PER UNIT SC SCH ×4 (07:58→21:00)
[2018-08-18] MEDS: FLUTICASONE HFA 110 MCG 12 GM INHALER (FLOVENT) INH SCH ×2 (08:17→21:00)
[2018-08-18] MEDS: NEOSPORIN TOP OINT 15GM TOP SCH (09:00)
[2018-08-18] MEDS: LACTOBACILLUS ACIDOPHILUS CAP (BACID) PO SCH ×4 (09:51→21:00)
[2018-08-18] MEDS: AUGMENTIN 875 MG TAB PO SCH ×2 (09:51→18:05)
[2018-08-18] MEDS: metFORMIN (GLUCOPHAGE) 1000 MG TABLET PO SCH ×2 (09:52→18:05)
[2018-08-18] MEDS: DOCUSATE SODIUM 100 MG CAP PO SCH ×2 (09:55→21:00)
[2018-08-18] MEDS: **hydrALAZINE** 50 MG TAB PO SCH ×3 (09:55→21:00)
[2018-08-18] MEDS: LORATADINE 10 MG TAB PO SCH (09:55)
[2018-08-18] MEDS: CARVedilol 12.5 MG TAB PO SCH ×2 (09:56→21:00)
[2018-08-18] MEDS: ASPIRIN 81 MG ENTERIC TAB PO SCH (09:56)
[2018-08-18] MEDS: MAGNESIUM OXIDE 400 MG TAB (MAG-OX) PO SCH ×3 (09:57→21:00)
[2018-08-18] MEDS: FUROSEMIDE 20 MG TAB PO SCH (09:57)
[2018-08-18] MEDS: guaiFENesin ER 600 MG TAB PO SCH ×2 (09:58→21:00)
[2018-08-18] MEDS: FAMOTIDINE 20 MG TAB PO SCH ×2 (09:58→21:00)
[2018-08-18] MEDS: OMEPRAZOLE 20 MG CAP PO SCH ×2 (09:58→21:00)
[2018-08-18] MEDS: GABAPENTIN 100 MG CAP PO SCH ×3 (09:58→21:00)
[2018-08-18] MEDS: MULTIVITAMINS/MINERALS THERAP 1 TAB PO SCH (09:59)
[2018-08-18] MEDS: MONTELUKAST 10 MG TAB PO SCH (09:59)
[2018-08-18] MEDS: VITAMIN D 1,000 INTERNATIONAL UNITS TABLET PO SCH ×2 (10:00→21:00)
[2018-08-18] MEDS: ENALAPRIL MALEATE 10 MG TAB PO SCH ×2 (10:00→21:00)
[2018-08-18] MEDS: buPROPion **XL** TABLET 150MG (WELLBUTRIN XL) PO SCH (10:01)
[2018-08-18] MEDS: LEVEMIR (INSULIN DETEMIR) 1 UNITS/0.01ML SC SCH ×2 (10:01→21:00)
[2018-08-18] MEDS: CLOTRIMAZOLE 1% TOPICAL CREAM 30GM TOP SCH ×2 (14:40→21:00)
[2018-08-18] MEDS: WARFARIN SOD 4 MG TAB PO SCH (18:05)
[2018-08-18] MEDS: ATORVASTATIN 10 MG TAB PO SCH (21:00)
[2018-08-18] MEDS: AMITRIPTYLINE 50 MG TAB PO SCH (21:00)
[2018-08-18] MEDS: amLODIPine 10 MG TAB PO SCH (21:00)
[2018-08-19] MEDS: PERCOCET 5MG/325MG TAB PO PRN ×4 (02:17→21:21)
[2018-08-19 06:00] VITALS: BP 168/76
[2018-08-19] MEDS: DICLOFENAC EPOLAMINE 1.3 % PATCH TOP SCH ×2 (06:00→17:12)
[2018-08-19] MEDS: FLUTICASONE HFA 110 MCG 12 GM INHALER (FLOVENT) INH SCH ×2 (07:45→20:55)
[2018-08-19] MEDS: HumaLOG INSULIN (NovoLOG) PER UNIT SC SCH ×4 (08:06→21:00)
[2018-08-19] MEDS: GABAPENTIN 100 MG CAP PO SCH ×3 (08:07→21:19)
[2018-08-19] MEDS: FAMOTIDINE 20 MG TAB PO SCH ×2 (08:07→21:18)
[2018-08-19] MEDS: LEVEMIR (INSULIN DETEMIR) 1 UNITS/0.01ML SC SCH ×2 (08:07→21:21)
[2018-08-19] MEDS: ASPIRIN 81 MG ENTERIC TAB PO SCH (08:07)
[2018-08-19] MEDS: metFORMIN (GLUCOPHAGE) 1000 MG TABLET PO SCH ×2 (08:07→17:09)
[2018-08-19] MEDS: buPROPion **XL** TABLET 150MG (WELLBUTRIN XL) PO SCH (08:07)
[2018-08-19] MEDS: MONTELUKAST 10 MG TAB PO SCH (08:07)
[2018-08-19] MEDS: LACTOBACILLUS ACIDOPHILUS CAP (BACID) PO SCH ×4 (08:08→21:19)
[2018-08-19] MEDS: DOCUSATE SODIUM 100 MG CAP PO SCH ×2 (08:08→19:43)
[2018-08-19] MEDS: OMEPRAZOLE 20 MG CAP PO SCH ×2 (08:08→21:17)
[2018-08-19] MEDS: AUGMENTIN 875 MG TAB PO SCH ×2 (08:08→17:10)
[2018-08-19] MEDS: MAGNESIUM OXIDE 400 MG TAB (MAG-OX) PO SCH ×3 (08:09→21:18)
[2018-08-19] MEDS: MULTIVITAMINS/MINERALS THERAP 1 TAB PO SCH (08:09)
[2018-08-19] MEDS: guaiFENesin ER 600 MG TAB PO SCH ×2 (08:09→21:18)
[2018-08-19] MEDS: **hydrALAZINE** 50 MG TAB PO SCH ×3 (08:10→21:28)
[2018-08-19] MEDS: VITAMIN D 1,000 INTERNATIONAL UNITS TABLET PO SCH ×2 (08:10→21:20)
[2018-08-19] MEDS: FUROSEMIDE 20 MG TAB PO SCH (08:11)
[2018-08-19] MEDS: ENALAPRIL MALEATE 10 MG TAB PO SCH ×2 (08:11→21:27)
[2018-08-19] MEDS: LORATADINE 10 MG TAB PO SCH (08:12)
[2018-08-19] MEDS: CARVedilol 12.5 MG TAB PO SCH ×2 (08:12→21:28)
[2018-08-19] MEDS: NEOSPORIN TOP OINT 15GM TOP SCH (08:13)
[2018-08-19] MEDS: CLOTRIMAZOLE 1% TOPICAL CREAM 30GM TOP SCH ×2 (08:13→21:22)
[2018-08-19 08:42] LABS: HEMATOCRIT 46.4 % (42.0-52.0); HEMOGLOBIN 14.1 g/dl (13.5-17.5); MEAN CORPUSCULAR HEMOGLOBIN 23.6 pg (27.0-33.0); MEAN CORPUSCULAR HGB CONC 30.4 g/dl (32.0-36.5); MEAN CORPUSCULAR VOLUME 77.7 fl (80.0-96.0); PLATELET COUNT, AUTOMATED 451 10^3/uL (150-450); RED BLOOD COUNT 5.97 10^6/uL (4.30-6.10)
[2018-08-19 08:54] LABS: INR 3.29; PROTHROMBIN TIME 34.2 SECONDS (12.1-14.4)
[2018-08-19 09:30] LABS: CALCIUM LEVEL 9.6 MG/DL (8.5-10.1); CREATININE FOR GFR 1.56 MG/DL (0.70-1.30); GLOMERULAR FILTRATION RATE 49.1 (>56); POTASSIUM SERUM 4.5 MEQ/L (3.5-5.1)
[2018-08-19] MEDS: WARFARIN SOD 4 MG TAB PO SCH (17:08)
[2018-08-19] MEDS: ATORVASTATIN 10 MG TAB PO SCH (21:19)
[2018-08-19] MEDS: amLODIPine 10 MG TAB PO SCH (21:27)
[2018-08-19] MEDS: AMITRIPTYLINE 50 MG TAB PO SCH (21:27)
[2018-08-20] MEDS: PERCOCET 5MG/325MG TAB PO PRN ×4 (05:11→21:19)
[2018-08-20] MEDS: DICLOFENAC EPOLAMINE 1.3 % PATCH TOP SCH ×2 (05:11→17:15)
[2018-08-20 06:00] VITALS: BP 171/66
[2018-08-20] MEDS: FLUTICASONE HFA 110 MCG 12 GM INHALER (FLOVENT) INH SCH ×2 (08:53→19:56)
[2018-08-20] MEDS: DOCUSATE SODIUM 100 MG CAP PO SCH ×2 (09:00→21:00)
[2018-08-20] MEDS: LEVEMIR (INSULIN DETEMIR) 1 UNITS/0.01ML SC SCH ×2 (09:39→21:00)
[2018-08-20] MEDS: HumaLOG INSULIN (NovoLOG) PER UNIT SC SCH ×4 (09:40→20:34)
[2018-08-20] MEDS: VITAMIN D 1,000 INTERNATIONAL UNITS TABLET PO SCH ×2 (09:40→20:58)
[2018-08-20] MEDS: ENALAPRIL MALEATE 10 MG TAB PO SCH ×2 (09:41→21:00)
[2018-08-20] MEDS: FAMOTIDINE 20 MG TAB PO SCH ×2 (09:41→21:01)
[2018-08-20] MEDS: LACTOBACILLUS ACIDOPHILUS CAP (BACID) PO SCH ×4 (09:41→21:00)
[2018-08-20] MEDS: MULTIVITAMINS/MINERALS THERAP 1 TAB PO SCH (09:41)
[2018-08-20] MEDS: MAGNESIUM OXIDE 400 MG TAB (MAG-OX) PO SCH ×3 (09:41→21:01)
[2018-08-20] MEDS: FUROSEMIDE 20 MG TAB PO SCH (09:42)
[2018-08-20] MEDS: metFORMIN (GLUCOPHAGE) 1000 MG TABLET PO SCH ×2 (09:42→17:14)
[2018-08-20] MEDS: MONTELUKAST 10 MG TAB PO SCH (09:42)
[2018-08-20] MEDS: CARVedilol 12.5 MG TAB PO SCH ×2 (09:42→21:00)
[2018-08-20] MEDS: OMEPRAZOLE 20 MG CAP PO SCH ×2 (09:43→21:01)
[2018-08-20] MEDS: ASPIRIN 81 MG ENTERIC TAB PO SCH (09:43)
[2018-08-20] MEDS: GABAPENTIN 100 MG CAP PO SCH ×3 (09:43→21:01)
[2018-08-20] MEDS: AUGMENTIN 875 MG TAB PO SCH ×2 (09:43→17:13)
[2018-08-20] MEDS: LORATADINE 10 MG TAB PO SCH (09:43)
[2018-08-20] MEDS: **hydrALAZINE** 50 MG TAB PO SCH ×3 (09:43→20:59)
[2018-08-20] MEDS: guaiFENesin ER 600 MG TAB PO SCH ×2 (09:43→20:58)
[2018-08-20] MEDS: buPROPion **XL** TABLET 150MG (WELLBUTRIN XL) PO SCH (09:44)
[2018-08-20] MEDS: CLOTRIMAZOLE 1% TOPICAL CREAM 30GM TOP SCH ×2 (09:44→21:00)
[2018-08-20] MEDS: NEOSPORIN TOP OINT 15GM TOP SCH (09:45)
[2018-08-20 10:34] LABS: INR 3.51
[2018-08-20] MEDS: WARFARIN SOD 4 MG TAB PO SCH (10:42)
[2018-08-20 20:59] VITALS: BP 167/72
[2018-08-20] MEDS: amLODIPine 10 MG TAB PO SCH (20:59)
[2018-08-20] MEDS: ATORVASTATIN 10 MG TAB PO SCH (20:59)
[2018-08-20] MEDS: AMITRIPTYLINE 50 MG TAB PO SCH (21:01)
[2018-08-21] MEDS: PERCOCET 5MG/325MG TAB PO PRN ×3 (02:06→12:07)
[2018-08-21 06:00] VITALS: BP 165/90
[2018-08-21] MEDS: DICLOFENAC EPOLAMINE 1.3 % PATCH TOP SCH (06:14)
[2018-08-21] MEDS: FLUTICASONE HFA 110 MCG 12 GM INHALER (FLOVENT) INH SCH (07:20)
[2018-08-21] MEDS: LEVEMIR (INSULIN DETEMIR) 1 UNITS/0.01ML SC SCH (07:58)
[2018-08-21] MEDS: MONTELUKAST 10 MG TAB PO SCH (07:58)
[2018-08-21] MEDS: HumaLOG INSULIN (NovoLOG) PER UNIT SC SCH ×3 (07:58→12:33)
[2018-08-21] MEDS: LORATADINE 10 MG TAB PO SCH (07:58)
[2018-08-21] MEDS: guaiFENesin ER 600 MG TAB PO SCH (07:59)
[2018-08-21] MEDS: VITAMIN D 1,000 INTERNATIONAL UNITS TABLET PO SCH (07:59)
[2018-08-21] MEDS: MULTIVITAMINS/MINERALS THERAP 1 TAB PO SCH (07:59)
[2018-08-21] MEDS: MAGNESIUM OXIDE 400 MG TAB (MAG-OX) PO SCH (07:59)
[2018-08-21] MEDS: **hydrALAZINE** 50 MG TAB PO SCH (08:00)
[2018-08-21] MEDS: ENALAPRIL MALEATE 10 MG TAB PO SCH (08:00)
[2018-08-21] MEDS: metFORMIN (GLUCOPHAGE) 1000 MG TABLET PO SCH (08:01)
[2018-08-21] MEDS: LACTOBACILLUS ACIDOPHILUS CAP (BACID) PO SCH ×2 (08:01→12:32)
[2018-08-21] MEDS: FUROSEMIDE 20 MG TAB PO SCH (08:01)
[2018-08-21] MEDS: buPROPion **XL** TABLET 150MG (WELLBUTRIN XL) PO SCH (08:01)
[2018-08-21] MEDS: DOCUSATE SODIUM 100 MG CAP PO SCH (08:01)
[2018-08-21] MEDS: CARVedilol 12.5 MG TAB PO SCH (08:01)
[2018-08-21] MEDS: FAMOTIDINE 20 MG TAB PO SCH (08:02)
[2018-08-21] MEDS: GABAPENTIN 100 MG CAP PO SCH (08:02)
[2018-08-21] MEDS: ASPIRIN 81 MG ENTERIC TAB PO SCH (08:02)
[2018-08-21] MEDS: OMEPRAZOLE 20 MG CAP PO SCH (08:02)
[2018-08-21] MEDS: CLOTRIMAZOLE 1% TOPICAL CREAM 30GM TOP SCH (09:33)
[2018-08-21] MEDS: NEOSPORIN TOP OINT 15GM TOP SCH (09:34)
[2018-08-21] MEDS ORDERED: COUM10TA PO (11:25)
[2018-08-21] MEDS ORDERED: DICL13PA TOP (11:25)
[2018-08-21] MEDS ORDERED: PERCOCET PO (11:27)
[2018-08-21] MEDS ORDERED: VOLT1GEL15 TOP (14:55)
[2018-08-22] MEDS ORDERED: AMIT50TA PO (14:13)
[2018-08-22] MEDS ORDERED: FURO20TA2 PO (14:13)
[2018-08-22] MEDS ORDERED: ENAL20TA PO (14:13)
[2018-08-22] MEDS ORDERED: INSUDET SC ×2 (14:13)
[2018-08-22] MEDS ORDERED: ATOR1TAB19 PO (14:13)
[2018-08-22] MEDS ORDERED: LEVOTAB10 PO (14:13)
[2018-08-22] MEDS ORDERED: VITMTA PO (14:13)
[2018-08-22] MEDS ORDERED: BUPR150T3 PO (14:13)
[2018-08-22] MEDS ORDERED: HYDR25TA PO (14:13)
[2018-08-22] MEDS ORDERED: MAGN400T2 PO (14:13)
[2018-08-22] MEDS ORDERED: ESOM1CAP5 PO (14:13)
[2018-08-22] MEDS ORDERED: VITA500046 PO (14:13)
[2018-08-22] MEDS ORDERED: METF10004 PO (14:13)
[2018-08-22] MEDS ORDERED: AMLO5TAB6 PO (14:13)
[2018-08-22] MEDS ORDERED: FAMO20TA PO (14:13)
[2018-08-22] MEDS ORDERED: CARV25TA PO (14:13)
[2018-08-22] MEDS ORDERED: ASPI81TA85 PO (14:13)
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
== END 2018-08-21 14:00 | disposition home health service (06) | DRG 629 ==
LOC: EEVIPCON 15:50 → M MSPAV 15:50
PROVIDERS: ADMIT Hospitalist; ATTEND Internal Medicine
PROC: 0HBMXZZ Excision of Right Foot Skin, External Approach (ICD-10-PCS; 2018-06-18)
PROC: 0QBM0ZX Excision of Left Tarsal, Open Approach, Diagnostic (ICD-10-PCS; principal; 2018-06-18 07:30)
DX: E11.621 Type 2 diabetes mellitus with foot ulcer (principal); L03.116 Cellulitis of left lower limb; M86.672 Other chronic osteomyelitis, left ankle and foot; L97.429 Non-pressure chronic ulcer of left heel and midfoot with unspecified severity; E87.2 Acidosis; E11.42 Type 2 diabetes mellitus with diabetic polyneuropathy; I10 Essential (primary) hypertension; E78.5 Hyperlipidemia, unspecified; E11.69 Type 2 diabetes mellitus with other specified complication; E11.65 Type 2 diabetes mellitus with hyperglycemia; B95.62 Methicillin resistant Staphylococcus aureus infection as the cause of diseases classified elsewhere; K46.9 Unspecified abdominal hernia without obstruction or gangrene; K05.01 Acute gingivitis, non-plaque induced; F32.9 Major depressive disorder, single episode, unspecified; F41.9 Anxiety disorder, unspecified; M51.36 Other intervertebral disc degeneration, lumbar region; M50.30 Other cervical disc degeneration, unspecified cervical region; E66.9 Obesity, unspecified; I82.A21 Chronic embolism and thrombosis of right axillary vein; Z79.4 Long term (current) use of insulin; Z79.82 Long term (current) use of aspirin; Z79.899 Other long term (current) drug therapy; Z88.8 Allergy status to other drugs, medicaments and biological substances; Z79.01 Long term (current) use of anticoagulants; Z87.891 Personal history of nicotine dependence; Z68.33 Body mass index [BMI] 33.0-33.9, adult

== ENCOUNTER 2018-10-04 17:43 | Inpatient (IN) | payer MEDICARE, MEDICAID ==
[~2018-10-04] VITALS: Ht 195.6 cm; Wt 135.9 kg
[~2018-10-04 17:43] MED LIST changes: -ASPI1TAB PO; +ASPI81TA26 PO; +D-3-50003 PO; +HYDR-2541 PO; -MAGN1TAB25 PO; +MAGN1TAB26 PO; +MAGN400T2 PO; +OXYC1TAB23 PO; +PERCOCET PO; +SENN1TAB36 PO; +SENN1TAB41 PO; -SENN8.6T7 PO; -SENN8.6T9 PO; -VITA1CAP7 PO; +VOLT1GEL15 TOP; +WARF-23 PO
[2018-10-04 20:42] LABS: BASO # 0.2 10^3/uL (0.0-0.2); BASO % 1.1 % (0.0-1.0); EOS # 0.4 10^3/uL (0.0-0.50); EOS % 3.1 % (0.0-3.0); HEMATOCRIT 54.2 % (42.0-52.0); LYMPH # 1.9 10^3/uL (1.5-4.5); LYMPH % 13.7 % (24.0-44.0); MEAN CORPUSCULAR HEMOGLOBIN 23.5 pg (27.0-33.0); MEAN CORPUSCULAR HGB CONC 31.4 g/dl (32.0-36.5); MEAN CORPUSCULAR VOLUME 74.9 fl (80.0-96.0); MONO # 0.7 10^3/uL (0.0-0.8); MONO % 5.1 % (0.0-5.0); NEUTROPHILS # 10.4 10^3/uL (1.8-7.7); NEUTROPHILS % 74.1 % (36.0-66.0); PLATELET COUNT, AUTOMATED 536 10^3/uL (150-450); RED BLOOD COUNT 7.24 10^6/uL (4.30-6.10)
[2018-10-04] MEDS: LEVEMIR (INSULIN DETEMIR) 1 UNITS/0.01ML SC SCH (21:00)
[2018-10-04 21:07] LABS: C REACTIVE PROTEIN QUANTITATIV 0.3 MG/DL (0.00-0.30); CALCIUM LEVEL 9.2 MG/DL (8.5-10.1); CREATININE FOR GFR 1.77 MG/DL (0.70-1.30); GLOMERULAR FILTRATION RATE 42.3 (>56); POTASSIUM SERUM 4.8 MEQ/L (3.5-5.1)
[2018-10-04 21:18] LABS: ERYTHROCYTE SEDIMENTATION RATE 1 mm/hr (0-20)
--- NOTE | 2018-10-04 21:47 | REPVR ---
EXAM: US Duplex Left Lower Extremity Veins, Limited EXAM DATE/TIME: 10/04/2018 9:08 PM CLINICAL HISTORY: 58 years old, male; Pain; Leg, upper; Left; Additional info: L calf pain eval for dvt TECHNIQUE: Imaging protocol: Real-time Duplex ultrasound of the Left Lower Extremity with 2-D griffith scale, color Doppler flow and spectral waveform analysis. Limited exam focused on the left lower extremity veins. COMPARISON: US Duplex, Ext,LOWER veins,unilat 09/04/2017 8:13 PM FINDINGS: Left deep veins: Unremarkable. The common femoral, femoral and popliteal veins are patent without thrombus. Normal compressibility, augmentation response and Doppler waveforms. Left superficial veins: Unremarkable. Saphenofemoral junction is patent without thrombus. Soft tissues: Unremarkable. Lymph nodes: 2 x 1.6 cm lymph node along the posterior aspect of the upper calf, likely reactive. IMPRESSION: 1. No sonographic evidence of deep venous thrombosis. 2. Additional findings, as above. Electronically signed by: Torsten Leach On 10/04/2018 21:46:26 PM
[2018-10-04] MEDS ORDERED: VANCOMYCIN HCL 1,000 MG, VIAL MATE ADAPTER 1 EACH in D5W 250 ML IV ONE (22:00)
[2018-10-04] MEDS ORDERED: PIPERACILLIN/TAZOBACTAM SOD 3.375 GM in D5W MINI-BAG PLUS 50 ML IV ONE (22:00)
[2018-10-04] MEDS ORDERED: ATOR1TAB19 PO (22:03)
[2018-10-04] MEDS ORDERED: CARV25TA PO (22:03)
[2018-10-04] MEDS ORDERED: AMIT25TA PO (22:03)
[2018-10-04] MEDS ORDERED: DOXY100T PO (22:03)
[2018-10-04] MEDS ORDERED: NEXI40CA PO (22:03)
[2018-10-04] MEDS ORDERED: AMLO5TAB6 PO (22:03)
[2018-10-04] MEDS ORDERED: ENAL20TA PO (22:03)
[2018-10-04] MEDS ORDERED: NORC1TAB7 PO (22:03)
[2018-10-04] MEDS ORDERED: ELIQ5TAB PO (22:03)
[2018-10-04] MEDS ORDERED: ASPI81TA26 PO (22:03)
[2018-10-04] MEDS ORDERED: LEVOTAB10 PO (22:03)
[2018-10-04] MEDS ORDERED: NOVOINJ SC (22:13)
[2018-10-04] MEDS ORDERED: INSUDET SC ×2 (22:13)
[2018-10-04] MEDS ORDERED: VICT18IN SC (22:13)
[2018-10-04] MEDS ORDERED: ACETAMINOPHEN TAB 650MG DOSE (2X325MG) PO PRN (22:15)
[2018-10-04] MEDS ORDERED: MOM 30ML SUSPENSION UDC PO PRN (22:15)
[2018-10-04] MEDS ORDERED: MORPHINE 4 MG/ML 1ML VIAL/SYRINGE (J2270) IV ONE (22:15)
[2018-10-04] MEDS ORDERED: MAALOX 30 ML SUSP *UDC PO PRN (22:15)
[2018-10-04] MEDS ORDERED: VANCOMYCIN HCL 750 MG, VIAL MATE ADAPTER 1 EACH in D5W 250 ML IV SCH (22:45)
[2018-10-04] MEDS ORDERED: DEXTROSE 50% 50 ML SYRINGE IV PRN (23:15)
[2018-10-04] MEDS ORDERED: GLUCOSE 4 GM CHEW TABLET PO PRN (23:15)
[2018-10-04] MEDS ORDERED: GLUCAGON FOR INJ 1 MG VIAL (J1610) SC PRN (23:15)
[2018-10-04] MEDS ORDERED: CLOTRIMAZOLE 1% TOPICAL CREAM 30GM TOP PRN (23:15)
--- NOTE | 2018-10-04 23:18 | REPVR ---
EXAM: US Left Non-Vascular Joint or Other Extremity Structure, Limited Lower Extremity EXAM DATE/TIME: 10/04/2018 11:01 PM CLINICAL HISTORY: 58 years old, male; Signs and symptoms; Other: Ulcer; Prior surgery; Surgery date: 1-6 months; Surgery type: To clean infection out of foot; Additional info: R/O abscess left foot TECHNIQUE: Imaging protocol: Left US Non-Vascular Joint or Other Extremity Structure. Limited exam of the lower extremity. COMPARISON: CR Foot, complete LEFT 10/04/2018 8:46 PM FINDINGS: Soft tissues: Pronounced subcutaneous edema and skin thickening overlying the heel. No convincing organized fluid collection. IMPRESSION: Severe cellulitis without convincing organized fluid collection. Electronically signed by: Torsten Leach On 10/04/2018 23:17:38 PM
--- NOTE | 2018-10-04 23:19 | HPEPDOC ---
General Date of Admission October 04, 2018 at 22:11 Chief Complaint The patient is a 58-year-old male admitted with a reason for visit of Diabectic Foot Ulcer. History of Present Illness Mr. Herrera is a 58 years old diabetic man with hx/o chronic foot ulcer and chronic osteomyelitis. He was sent by his PCP due to concern for infection at the chronic left foot ulcer, which is swollen, red and tender. There is no ooz ing, but there is a yellow dry base in the ulcer. In the ER, pt was afebrile, and hemodynamically stable. WBC 14K. Cr 1.77 around baseline. Blood sugar was over 500 without metabolic acidosis. CRP not elevated. X-ray of the foot showed no acute findings. US of the left was negative for DVT because pt was complaining of pain in the left calf, radiating from the the ulcer site. Pt was admitted in May and treated for similar problem. Wound culture grew MRSA at that time. Home Medications Scheduled Amitriptyline HCl (Amitriptyline HCl) 25 Mg Tablet, 25 MG PO QHS, (Reported) Amlodipine Besylate (Amlodipine Besylate) 5 Mg Tablet, 5 MG PO BID, (Reported) Apixaban (Eliquis) 5 Mg Tablet, 5 MG PO BID, (Reported) Aspirin (Aspirin EC) 81 Mg Tablet.dr, 81 MG PO DAILY, (Reported) Atorvastatin Calcium (Atorvastatin Calcium) 10 Mg Tablet, 10 MG PO QHS, (Reported) Carvedilol (Carvedilol) 25 Mg Tablet, 25 MG PO BID, (Reported) Doxycycline Hyclate (Doxycycline Hyclate) 100 Mg Tablet, 100 MG PO BID, (Reported) Enalapril Maleate (Enalapril Maleate) 20 Mg Tablet, 20 MG PO BID, (Reported) Esomeprazole Magnesium (Nexium) 40 Mg Capsule.dr, 40 MG PO DAILY, (Reported) Insulin Aspart (Novolog) 100 Unit/1 Ml Cartridge, 1 DOSE SC ACHS, (Reported) PER SLIDING SCALE Insulin Detemir (Levemir) 100 Unit/1 Ml Vial, 68 UNITS SC DAILY, (Reported) Insulin Detemir (Levemir) 100 Unit/1 Ml Vial, 60 UNITS SC QHS, (Reported) Levocetirizine Dihydrochloride (Levocetirizine Dihydrochloride) 5 Mg Tablet, 5 MG PO DAILY, (Reported) Scheduled PRN Clotrimazole (Lotrimin AF) 1 % Cre, 1 DOSE TOP BID PRN for ITCHING, (Reported) APPLY TO FEET Hydrocodone/Acetaminophen ([place] 5-325 Tablet) 1 Each Tablet, 1 TAB PO Q4H PRN for PAIN, (Reported) Allergies Coded Allergies: povidone-iodine (Verified Allergy, Unknown, 08/18/18) soap (Verified Allergy, Unknown, 08/18/18) Past Medical History Medical History PAST MEDICAL HISTORY: 1. Type 2 diabetes, insulin dependent, uncontrolled 2. Hypertension. 3. Dyslipidemia. 4. Abdominal hernia. 5. 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 6. Recurrent infection in his left heel, chronic diabetic foot ulcer, Chronic Osteomyelitis PAST SURGICAL HISTORY: 1. Two hernia repairs. 2. Tonsillectomy. 3. Left foot debridement. Family History Significant Family History: Diabetes Social History * Smoker: former Smoker Alcohol: Denies Drugs: denies A-FIB/CHADSVASC A-FIB History Current/History of A-Fib/PAF?: No Review of Systems Constitutional: Denies: Chills, Fever Eyes: Denies: Pain ENT: Denies: Head Aches Skin: Denies: Rash Pulmonary: Denies: Dyspnea, Cough Cardiovascular: Denies: Chest Pain, Edema Gastrointestinal: Denies: Nausea, Vomiting, Abdominal Pain Genitourinary: Denies: Dysuria Musculoskeletal: Denies: Neck Pain, Back Pain Neurological: Denies: Weakness Psych: Reports: Mood Normal; Denies: Anxiety Physical Examination General Exam: Positive: Alert, Cooperative, No Acute Distress Neck Exam: Positive: Supple; Negative: JVD Chest Exam: Positive: Clear to auscultation, Normal air movement Heart Exam: Positive: Rate Normal, Regular Rhythm Abdomen Exam: Positive: Normal bowel sounds, Soft; Negative: Tenderness Extremity Exam: Positive: Other (chronic left heel ulcer on yellow dry base, with sowwounding erythema, edema and tenderness) Neuro Exam: Positive: Normal Speech, Strength at 5/5 X4 ext Psych Exam: Positive: Mental status NL, Mood NL; Negative: Anxiety Vital Signs Vital Signs Date Time Temp Pulse Resp B/P (MAP) Pulse Ox O2 Delivery O2 Flow Rate FiO2 10/04/18 22:42 16 10/04/18 19:48 10/04/18 17:43 96.0 98 98 Room Air Laboratory Data Labs 24H Laboratory Tests 2 10/04/18 20:03: Immature Granulocyte % (Auto) 2.9, White Blood Count 14.0H, Red Blood Count 7.24H, Hemoglobin 17.0, Hematocrit 54.2H, Mean Corpuscular Volume 74.9L, Mean Corpuscular Hemoglobin 23.5L, Mean Corpuscular Hemoglobin Concent 31.4L, Red Cell Distribution Width 18.8H, Platelet Count 536H, Neutrophils (%) (Auto) 74.1H, Lymphocytes (%) (Auto) 13.7L, Monocytes (%) (Auto) 5.1H, Eosinophils (%) (Auto) 3.1H, Basophils (%) (Auto) 1.1H, Neutrophils # (Auto) 10.4H, Lymphocytes # (Auto) 1.9, Monocytes # (Auto) 0.7, Eosinophils # (Auto) 0.4, Basophils # (Auto) 0.2, Nucleated Red Blood Cells % (auto) 0.0, Erythrocyte Sedimentation Rate 1, Anion Gap 4L, Glomerular Filtration Rate 42.3L, Blood Urea Nitrogen 19H, Creatinine 1.77H, Sodium Level 130L, Potassium Level 4.8, Chloride Level 100, Carbon Dioxide Level 26, Calcium Level 9.2, C-Reactive Protein, Quantitative 0.30 CBC/BMP Laboratory Tests 10/04/18 20:03 Red Blood Count 7.24 H, Mean Corpuscular Volume 74.9 L, Mean Corpuscular Hemoglobin 23.5 L, Mean Corpuscular Hemoglobin Concent 31.4 L, Red Cell Distribution Width 18.8 H, Neutrophils (%) (Auto) 74.1 H, Lymphocytes (%) (Auto) 13.7 L, Monocytes (%) (Auto) 5.1 H, Eosinophils (%) (Auto) 3.1 H, Basophils (%) (Auto) 1.1 H, Neutrophils # (Auto) 10.4 H, Lymphocytes # (Auto) 1.9, Monocytes # (Auto) 0.7, Eosinophils # (Auto) 0.4, Basophils # (Auto) 0.2, Calcium Level 9.2 Assessment/Plan Suspected Diabetic Foot Ulcer Infection, with surrounding Cellulitic Changes: previous MRSA infection - Admit to inpatient - No indication for acute osteomyelitis - US to r/o abscess pending - IV Vanco and Zosyn renally dosed - F/U C/s Uncontrolled Insulin-Dependent Diabetes Mellitus with Peripheral Neuropathy and CKD 3 - KEN and SSI diabetic diet - IV Fluid - Monitor renal fx and FS Plan / VTE VTE Prophylaxis Ordered?: No VTE Exclusion Mechanical Proph: N/A:VTE Prophy Ordered VTE Exclusion Pharmacological: Other JESS PEOPLES MD October 04, 2018 23:18
[2018-10-04 23:50] VITALS: BP 188/106
[2018-10-05 00:01] LABS: INR 1.23; PROTHROMBIN TIME 15.7 SECONDS (12.1-14.4)
[2018-10-05 00:02] LABS: PARTIAL THROMBOPLASTIN TIME 37.5 SECONDS (25.4-37.6)
[2018-10-05] MEDS: APIXABAN 5 MG TAB (ELIQUIS) PO SCH ×3 (00:27→20:44)
[2018-10-05] MEDS: amLODIPine 5 MG TAB PO SCH ×3 (00:27→20:45)
[2018-10-05] MEDS: ATORVASTATIN 10 MG TAB PO SCH ×2 (00:27→20:46)
[2018-10-05] MEDS: CARVedilol 12.5 MG TAB PO SCH ×3 (00:28→20:45)
[2018-10-05] MEDS: NS 1,000 ML IV SCH ×3 (00:29→19:51)
[2018-10-05] MEDS: HumaLOG INSULIN (NovoLOG) PER UNIT SC SCH ×5 (00:29→20:46)
[2018-10-05] MEDS: NORCO, ANEXSIA 5/325MG TABLET (HYDROcodone/ACETAMINOPHEN) PO PRN ×3 (01:27→10:02)
[2018-10-05] MEDS ORDERED: PIPERACILLIN/TAZOBACTAM SOD 2.25 GM in D5W MINI-BAG PLUS 50 ML IV SCH (05:00)
--- NOTE | 2018-10-05 05:26 | PHACANCOPD ---
PHARMACY VANCOMYCIN DOSING Pt Demographics Demographics Patient Age:58 , Weight:135.910 , Gender: male Adjusted Body Weight Date: 10/05/18, Adjusted Body Weight: [107.8] Kg Vancomycin Vancomycin indication: DIABETIC FOOT INFECTION Vancomycin Target Ranges: 10-20 mcg/ml Vancomycin Load Y/N: No Load Dose Date Time Vancomycin Load Dose: Date: Time: Vancomycin Dose Date: 10/05/18. Current Vancomycin Dose: [1gm q12h] Intermittent Dosing?: No Labs Labs Laboratory Tests 10/04/18 20:03 Red Blood Count 7.24 H, Mean Corpuscular Volume 74.9 L, Mean Corpuscular Hemoglobin 23.5 L, Mean Corpuscular Hemoglobin Concent 31.4 L, Red Cell Distribu tion Width 18.8 H, Neutrophils (%) (Auto) 74.1 H, Lymphocytes (%) (Auto) 13.7 L, Monocytes (%) (Auto) 5.1 H, Eosinophils (%) (Auto) 3.1 H, Basophils (%) (Auto) 1.1 H, Neutrophils # (Auto) 10.4 H, Lymphocytes # (Auto) 1.9, Monocytes # (Auto) 0.7, Eosinophils # (Auto) 0.4, Basophils # (Auto) 0.2, Calcium Level 9.2 Creatinine Clearance Date:10/05/18. Creatinine Clearance: [69.4].CALCULATED Assessment and Plan Maintaining Current Dose?: Yes Reason for dose change: No Dose Change Pharmacist Note Pharmacist Note Date: 10/05/18. Pharmacist note:58 YOM Admitted w/diabetic foot infection.Sc r=1.77 ,calculated CRCL=69.4(using ABW of 107.8 kg).treating w/ Pip/Tazo 2.25gm Q6H and Vancomycin per Pharmacy consult.Prior history of Vancomycin tx.Vancomycin 1GM 10/05@12mid,then will continue w/Vancomycin 1 gm iv Q12h@06.First trough is scheduled for 10/06@0500. Will continue to follow labs. SIMIN GABRIEL PHARMACY October 05, 2018 05:26
[2018-10-05] MEDS: VANCOMYCIN HCL 1,000 MG, VIAL MATE ADAPTER 1 EACH in D5W 250 ML IV SCH ×2 (05:58→17:28)
[2018-10-05 06:00] VITALS: BP 175/108
[2018-10-05 06:15] LABS: HEMATOCRIT 47.2 % (42.0-52.0); MEAN CORPUSCULAR HEMOGLOBIN 23.6 pg (27.0-33.0); MEAN CORPUSCULAR HGB CONC 31.1 g/dl (32.0-36.5); MEAN CORPUSCULAR VOLUME 75.6 fl (80.0-96.0); PLATELET COUNT, AUTOMATED 436 10^3/uL (150-450); RED BLOOD COUNT 6.24 10^6/uL (4.30-6.10); WHITE BLOOD COUNT 11.4 10^3/uL (4.0-10.0)
[2018-10-05 06:36] LABS: HEMOGLOBIN 14.7 g/dl (13.5-17.5)
[2018-10-05 06:51] LABS: CALCIUM LEVEL 8.5 MG/DL (8.5-10.1); CREATININE FOR GFR 2.22 MG/DL (0.70-1.30); GLOMERULAR FILTRATION RATE 32.5 (>56); POTASSIUM SERUM 3.8 MEQ/L (3.5-5.1)
--- NOTE | 2018-10-05 07:03 | REP ---
The left foot to four views: Comparison is 02/18/2017. The diffuse soft tissue edema identified previously has resolved. There is a large calcaneal plantar spur as an interval change. There is a lucency within the subcutaneous soft tissues adjacent to the calcaneal plantar spur. There is lucency along the posterior margin of the calcaneus. These lucencies are nonspecific and could represent fat density, air or gas, therefore, the possibility soft tissue infection is raised. There are no lytic, blastic or destructive skeletal changes to suggest osteomyelitis on plain films. There is advanced osteoarthritis of the tarsal ossicles and T T articulations as well as the great toe MTP articulation. This is unchanged. Impression: Question soft tissue infection adjacent to the calcaneus as described. No plain film evidence of osteomyelitis. Advanced osteoarthritis, unchanged. Electronically Signed by Sesar Ashton MD 10/05/2018 06:55 A
[2018-10-05] MEDS: LEVEMIR (INSULIN DETEMIR) 1 UNITS/0.01ML SC SCH ×2 (08:13→20:47)
[2018-10-05] MEDS: ENALAPRIL MALEATE 10 MG TAB PO SCH ×2 (08:16→20:45)
[2018-10-05] MEDS: PANTOPRAZOLE 40MG TAB (PROTONIX) PO SCH (08:16)
[2018-10-05] MEDS: ASPIRIN 81 MG ENTERIC TAB PO SCH (08:16)
--- NOTE | 2018-10-05 11:42 | IPNPDOC ---
Subjective Date Seen The patient was seen on 10/05/18. Subjective Chief Complaint/HPI Complaining of severe pain in his left foot General: Denies: ROS Unobtainable, Chills, Night Sweats, Fatigue, Malaise, Norm al Appetite, Other Symptoms Constitutional: Denies: Chills, Fever, Malaise, Night Sweats, Weakness, Fatigue, Weight Loss, Lethargy, Other Eyes: Denies: Pain, Vision change, Conjunctivae inflammation, Eyelid inflammation, Redness, Other ENT: Denies: Head Aches, Ear Pain, Dysphagia, Sinus Congestion, Post Nasal Drip, Sore Throat, Epistaxis, Other Symptoms Skin: Denies: Rash, Lesions, Jaundice, Bruising, Itching, Dry, Breakdown, Nail Changes, Other Pulmonary: Denies: Dyspnea, Cough, Pleuritic Chest Pain, Other Symptoms Cardiovascular: Denies: Chest Pain, Palpitations, Orthopnea, Paroxysmal Noc. Dyspnea, Edema, Lt Headedness, Other Symptoms Gastrointestinal: Denies: Nausea, Vomiting, Abdominal Pain, Diarrhea, Constipation, Melena, Hematochezia, Other Symptoms Genitourinary: Denies: Dysuria, Frequency, Incontinence, Hematuria, Retention, Other Symptoms Hematologic: Denies: Bruising, Bleeding Excessively, Petecchia, Purpura, Enlarged Lymph Nodes, Other Hematologic Endocrine: Denies: Polydipsia, Polyphagia, Polyuria, Heat Intolerance, Cold Intolerance, Other Endocrine Sx Musculoskeletal: Reports: Other Symptoms (. Left foot pain) Neurological: Denies: Weakness, Numbness, Incoordination, Change in speech, Confusion, Seizures, Other Symptoms Psych: Denies: Mood Normal, Anxiety, Depression, Memory Issues, Thoughts of Self Harm, Anger, Thoughts of Harming Other, Other Psych Objective Physical Examination General Exam: Positive: Alert, Cooperative, No Acute Distress Neck Exam: Positive: Supple; Negative: JVD Chest Exam: Positive: Clear to auscultation, Normal air movement Heart Exam: Positive: Rate Normal, Regular Rhythm Abdomen Exam: Positive: Normal bowel sounds, Soft; Negative: Tenderness Extremity Exam: Positive: Other (chronic left heel ulcer on yellow dry base, with sowwounding erythema, edema and tenderness) Neuro Exam: Positive: Normal Speech, Strength at 5/5 X4 ext Psych Exam: Positive: Mental status NL, Mood NL; Negative: Anxiety A-FIB/CHADSVASC A-FIB History Current/History of A-Fib/PAF?: No Assessment /Plan Problems (1) Cellulitis of left leg Status: Acute Problem Text: Suspected Diabetic Foot Ulcer Infection, with surrounding Cellulitic Changes: previous MRSA infection -Admitted to inpatient - No indication for acute osteomyelitis - US to r/o abscess pending -Started on IV vancomycin -Cultures are pending -Pain management with morphine 4 mg IV every 4 hours when necessary for breakthrough pain and OxyContin 15 mg by mouth twice a day for continuous pain relief (2) Chronic pain Status: Acute Problem Text: 10. 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 - KEN and SSI diabetic diet - IV Fluid - Monitor renal functions and fingerstick blood sugar Plan/VTE VTE Prophylaxis Ordered?: No VTE Exclusion Mechanical Proph: N/A:VTE Prophy Ordered VTE Exclusion Pharmacological: Other VS, I&O, 24H, Fishbone Vital Signs/I&O Vital Signs Date Time Temp Pulse Resp B/P (MAP) Pulse Ox O2 Delivery O2 Flow Rate FiO2 10/05/18 10:02 18 10/05/18 08:17 79 148/81 10/05/18 06:00 97.3 94 10/04/18 23:19 Room Air I&O- Last 24 Hours up to 6 AM 10/05/18 06:00 Intake Total 50 ml Output Total 400 ml Balance -350 ml Laboratory Data 24H LABS Laboratory Tests 2 10/04/18 20:03: Immature Granulocyte % (Auto) 2.9, White Blood Count 14.0H, Red Blood Count 7.24H, Hemoglobin 17.0, Hematocrit 54.2H, Mean Corpuscular Volume 74.9L, Mean Corpuscular Hemoglobin 23.5L, Mean Corpuscular Hemoglobin Concent 31.4L, Red Cell Distribution Width 18.8H, Platelet Count 536H, Neutrophils (%) (Auto) 74.1H, Lymphocytes (%) (Auto) 13.7L, Monocytes (%) (Auto) 5.1H, Eosinophils (%) (Auto) 3.1H, Basophils (%) (Auto) 1.1H, Neutrophils # (Auto) 10.4H, Lymphocytes # (Auto) 1.9, Monocytes # (Auto) 0.7, Eosinophils # (Auto) 0.4, Basophils # (Auto) 0.2, Nucleated Red Blood Cells % (auto) 0.0, Erythrocyte Sedimentation Rate 1, Anion Gap 4L, Glomerular Filtration Rate 42.3L, Blood Urea Nitrogen 19H, Creatinine 1.77H, Sodium Level 130L, Potassium Level 4.8, Chloride Level 100, Carbon Dioxide Level 26, Calcium Level 9.2, C-Reactive Protein, Quantitative 0.30 10/04/18 23:24: Prothrombin Time 15.7H, Prothromb Time International Ratio 1.23, Activated Partial Thromboplast Time 37.5 10/04/18 23:51: Bedside Glucose (Misc Panel) 331H 10/05/18 05:16: Nucleated Red Blood Cells % (auto) 0.0, Anion Gap 8, Glomerular Filtration Rate 32.5L, Blood Urea Nitrogen 25H, Creatinine 2.22H, Sodium Level 134L, Potassium Level 3.8#, Chloride Level 102, Carbon Dioxide Level 24, Calcium Level 8.5 CBC/BMP Laboratory Tests 10/04/18 20:03 Red Blood Count 7.24 H, Mean Corpuscular Volume 74.9 L, Mean Corpuscular Hemoglobin 23.5 L, Mean Corpuscular Hemoglobin Concent 31.4 L, Red Cell Distribution Width 18.8 H, Neutrophils (%) (Auto) 74.1 H, Lymphocytes (%) (Auto) 13.7 L, Monocytes (%) (Auto) 5.1 H, Eosinophils (%) (Auto) 3.1 H, Basophils (%) (Auto) 1.1 H, Neutrophils # (Auto) 10.4 H, Lymphocytes # (Auto) 1.9, Monocytes # (Auto) 0.7, Eosinophils # (Auto) 0.4, Basophils # (Auto) 0.2, Calcium Level 9.2 10/05/18 05:16 Red Blood Count 6.24 H, Mean Corpuscular Volume 75.6 L, Mean Corpuscular Hemoglobin 23.6 L, Mean Corpuscular Hemoglobin Concent 31.1 L, Red Cell Distribution Width 18.2 H, Calcium Level 8.5 BASSEM RODRIGES MD October 05, 2018 11:42
[2018-10-05 11:47] LABS: VANCOMYCIN RANDOM 9.8 UG/ML
[2018-10-05] MEDS: oxyCODONE 15 MG CR TAB PO SCH ×2 (12:21→22:45)
[2018-10-05] MEDS: MORPHINE 4 MG/ML 1ML VIAL/SYRINGE (J2270) IV PRN ×2 (12:22→21:40)
[2018-10-05 14:00] VITALS: BP 167/98
--- NOTE | 2018-10-05 14:42 | PHACANCOPD ---
PHARMACY VANCOMYCIN DOSING Pt Demographics Demographics Patient Age:58 , Weight:135.910 , Gender: male Adjusted Body Weight Date: 10/05/18, Adjusted Body Weight: [107.8] Kg Events Past 24 Hours Events Past 24 Hours: YES: Change in CrCl; NO: Dialysis, Diuretic Therapy, Fever, Elevation in WBC, Pending Diagnostics, Pending Procedures, Other Vancomycin Vancomycin indication: DIABETIC FOOT INFECTION Vancomycin Target Ranges: 10-20 mcg/ml Vancomycin Load Y/N: No Load Dose Date Time Vancomycin Load Dose: Date: Time: Vancomycin Dose Date: 10/05/18. Current Vancomycin Dose: [1gm q12h] Intermittent Dosing?: No Labs Labs Item Value Date Time White Blood Count 14.0 10^3/uL H 10/04/182002 White Blood Count 11.4 10^3/uL H 10/05/18 0516 Creatinine 1.77 MG/DL H 10/04/182002 Creatinine 2.22 MG/DL H 10/05/18 0516 C-Reactive Protein, Quantitative 0.30 MG/DL 10/04/182002 Erythrocyte Sedimentation Rate 1 mm/hr 10/04/182002 Vital Signs Label Value Date Time Patient Temperature 97.3 degrees F 10/05/18 0600 Temperature Source Temporal 10/05/18 0600 Creatinine Clearance Date:10/05/18. Creatinine Clearance: [69.4].CALCULATED Assessment and Plan Maintaining Current Dose?: Yes Reason for dose change: No Dose Change Pharmacist Note Pharmacist Note 10/05: A trough was obtained this morning from patient due to increase in Scr from 1.77 to 2.22 today. His trough came back at 9.8 after 1 dose of Vancomycin. He will be continued on his Vancomycin 1gm IV q12h and he has another trough scheduled tomorrow morning for 5am. He is afebrile, his WBC has improved from yesterday, his ESR is only one, and his CRP is 0.3. We will continue to monitor and make adjustments as necessary. Date: 10/05/18. Pharmacist note:58 YOM Admitted w/diabetic foot infection.Scr=1.77 ,calculated CRCL=69.4(using ABW of 107.8 kg).treating w/ Pip/Tazo 2.25gm Q6H and Vancomycin per Pharmacy consult.Prior history of Vancomycin tx.Vancomycin 1GM 5/14@12mid,then will continue w/Vancomycin 1 gm iv Q12h@06.First trough is scheduled for 10/06@0500. Will continue to follow labs. MELONIE FERNANDEZ PHARMACY October 05, 2018 14:41
[2018-10-05] MEDS: AMITRIPTYLINE 25 MG TAB PO SCH (20:46)
[2018-10-05 22:00] VITALS: BP 184/92
[2018-10-06] MEDS: NORCO, ANEXSIA 5/325MG TABLET (HYDROcodone/ACETAMINOPHEN) PO PRN ×2 (01:39→12:20)
[2018-10-06] MEDS: NS 1,000 ML IV SCH ×2 (05:39→14:58)
[2018-10-06 05:50] LABS: HEMATOCRIT 47.9 % (42.0-52.0); HEMOGLOBIN 14.4 g/dl (13.5-17.5); MEAN CORPUSCULAR HEMOGLOBIN 23.4 pg (27.0-33.0); MEAN CORPUSCULAR HGB CONC 30.1 g/dl (32.0-36.5); MEAN CORPUSCULAR VOLUME 77.9 fl (80.0-96.0); PLATELET COUNT, AUTOMATED 364 10^3/uL (150-450); RED BLOOD COUNT 6.15 10^6/uL (4.30-6.10); WHITE BLOOD COUNT 9.8 10^3/uL (4.0-10.0)
[2018-10-06 06:00] VITALS: BP 149/71
[2018-10-06 06:26] LABS: ALBUMIN 2.4 GM/DL (3.2-5.2); BILIRUBIN,TOTAL 0.4 MG/DL (0.2-1.0); CALCIUM LEVEL 8.5 MG/DL (8.5-10.1); CREATININE FOR GFR 2.53 MG/DL (0.70-1.30); MAGNESIUM LEVEL 1.9 MG/DL (1.8-2.4); POTASSIUM SERUM 4.3 MEQ/L (3.5-5.1); TOTAL PROTEIN 5.3 GM/DL (6.4-8.2)
[2018-10-06] MEDS: VANCOMYCIN HCL 1,000 MG, VIAL MATE ADAPTER 1 EACH in D5W 250 ML IV SCH (06:33)
--- NOTE | 2018-10-06 06:38 | PHACANCOPD ---
PHARMACY VANCOMYCIN DOSING Pt Demographics Demographics Patient Age:58 , Weight:135.910 , Gender: male Adjusted Body Weight Date: 10/05/18, Adjusted Body Weight: [107.8] Kg Vancomycin Vancomycin indication: DIABETIC FOOT INFECTION Vancomycin Target Ranges: 10-20 mcg/ml Vancomycin Load Y/N: No Load Dose Date Time Vancomycin Load Dose: Date: Time: Vancomycin Dose Date: 10/05/18. Current Vancomycin Dose: [1gm q12h] Intermittent Dosing?: No Labs Creatinine Clearance Date:10/05/18. Creatinine Clearance: [69.4].CALCULATED Assessment and Plan Maintaining Current Dose?: No Reason for dose change: Significant event Pharmacist Note Pharmacist Note Date: 10/06/18. Pharmacist note:Vancomycin trough drawn this morning @5:22 reported as 13.7(goal=10-20)Patient SCR,however has increased steadily since admission, so will adjust Vancomycin dose to 750mg IV Q12H to begin at 1800 today- will continue to follow labs 10/05: A trough was obtained this morning from patient due to increase in Scr from 1.77 to 2.22 today. His trough came back at 9.8 after 1 dose of Vancomycin. He will be continued on his Vancomycin 1gm IV q12h and he has another trough scheduled tomorrow morning for 5am. He is afebrile, his WBC has improved from yesterday, his ESR is only one, and his CRP is 0.3. We will continue to monitor and make adjustments as necessary. Date: 10/05/18. Pharmacist note:58 YOM Admitted w/diabetic foot infection.Scr=1.77 ,calculated CRCL=69.4(using ABW of 107.8 kg).treating w/ Pip/Tazo 2.25gm Q6H and Vancomycin per Pharmacy consult.Prior history of Vancomycin tx.Vancomycin 1GM 10/05@12mid,then will continue w/Vancomycin 1 gm iv Q12h@06.First trough is scheduled for 10/06@0500. Will continue to follow labs. SIMIN GABRIEL PHARMACY October 06, 2018 06:38
[2018-10-06 06:41] LABS: HEMOGLOBIN A1c 10.6 %
[2018-10-06] MEDS: HumaLOG INSULIN (NovoLOG) PER UNIT SC SCH ×4 (08:09→21:59)
[2018-10-06] MEDS: ENALAPRIL MALEATE 10 MG TAB PO SCH ×2 (08:10→20:53)
[2018-10-06] MEDS: LEVEMIR (INSULIN DETEMIR) 1 UNITS/0.01ML SC SCH ×2 (08:10→21:59)
[2018-10-06] MEDS: ASPIRIN 81 MG ENTERIC TAB PO SCH (08:11)
[2018-10-06] MEDS: PANTOPRAZOLE 40MG TAB (PROTONIX) PO SCH (08:11)
[2018-10-06] MEDS: amLODIPine 5 MG TAB PO SCH ×2 (08:11→20:54)
[2018-10-06] MEDS: oxyCODONE 15 MG CR TAB PO SCH ×2 (08:11→20:54)
[2018-10-06] MEDS: CARVedilol 12.5 MG TAB PO SCH ×2 (08:11→20:53)
[2018-10-06] MEDS: APIXABAN 5 MG TAB (ELIQUIS) PO SCH ×2 (08:11→20:54)
--- NOTE | 2018-10-06 12:57 | IPNPDOC ---
Subjective Date Seen The patient was seen on 10/06/18. Subjective Chief Complaint/HPI Still has pain is his eft foot General: Reports: ROS Unobtainable; Denies: Chills, Night Sweats, Fatigue, Malaise, Normal Appetite, Other Symptoms Constitutional: Denies: Chills, Fever, Malaise, Night Sweats, Weakness, Fatigue, Weight Loss, Lethargy, Other ENT: Denies: Head Aches, Ear Pain, Dysphagia, Sinus Congestion, Post Nasal Drip, Sore Throat, Epistaxis, Other Symptoms Skin: Denies: Rash, Lesions, Jaundice, Bruising, Itching, Dry, Breakdown, Nail Changes, Other Pulmonary: Denies: Dyspnea, Cough, Pleuritic Chest Pain, Other Symptoms Cardiovascular: Denies: Chest Pain, Palpitations, Orthopnea, Paroxysmal Noc. Dyspnea, Edema, Lt Headedness, Other Symptoms Gastrointestinal: Denies: Nausea, Vomiting, Abdominal Pain, Diarrhea, Constipation, Melena, Hematochezia, Other Symptoms Genitourinary: Denies: Dysuria, Frequency, Incontinence, Hematuria, Retention, Other Symptoms Hematologic: Denies: Bruising, Bleeding Excessively, Petecchia, Purpura, Enlarged Lymph Nodes, Other Hematologic Endocrine: Denies: Polydipsia, Polyphagia, Polyuria, Heat Intolerance, Cold Intolerance, Other Endocrine Sx Musculoskeletal: Denies: Neck Pain, Back Pain, Shoulder Pain, Arm Pain, Hand Pain, Leg Pain, Foot Pain, Joint Pain, Muscle Pain, Spasms, Other Symptoms Neurological: Denies: Weakness, Numbness, Incoordination, Change in speech, Confusion, Seizures, Other Symptoms Objective Physical Examination General Exam: Positive: Alert, Cooperative, No Acute Distress Neck Exam: Positive: Supple; Negative: JVD Chest Exam: Positive: Clear to auscultation, Normal air movement Heart Exam: Positive: Rate Normal, Regular Rhythm Abdomen Exam: Positive: Normal bowel sounds, Soft; Negative: Tenderness Extremity Exam: Positive: Other (chronic left heel ulcer on yellow dry base, with sowwounding erythema, edema and tenderness) Neuro Exam: Positive: Normal Speech, Strength at 5/5 X4 ext Psych Exam: Positive: Mental status NL, Mood NL; Negative: Anxiety A-FIB/CHADSVASC A-FIB History Current/History of A-Fib/PAF?: No Assessment /Plan Problems (1) Cellulitis of left leg Status: Acute Problem Text: Suspected Diabetic Foot Ulcer Infection, with surrounding Cellulitic Changes: previous MRSA infection -Admitted to inpatient - No indication for acute osteomyelitis - US to r/o abscess pending -Started on IV vancomycin. Decreasing WBC count -Cultures are pending -Pain management with morphine 4 mg IV every 4 hours when necessary for breakthrough pain and OxyContin 15 mg by mouth twice a day for continuous pain relief (2) Chronic pain Status: Acute Problem Text: 10. 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 - KEN and SSI diabetic diet - IV Fluid - Monitor renal functions and fingerstick blood sugar Plan/VTE VTE Prophylaxis Ordered?: No VTE Exclusion Mechanical Proph: N/A:VTE Prophy Ordered VTE Exclusion Pharmacological: Other VS, I&O, 24H, Fishbone Vital Signs/I&O Vital Signs Date Time Temp Pulse Resp B/P (MAP) Pulse Ox O2 Delivery O2 Flow Rate FiO2 10/06/18 12:20 18 10/06/18 08:11 71 149/71 10/06/18 06:00 97.3 94 10/04/18 23:19 Room Air I&O- Last 24 Hours up to 6 AM 10/06/18 06:00 Intake Total 4990 ml Output Total 2100 ml Balance 2890 ml Laboratory Data 24H LABS Laboratory Tests 2 10/05/18 17:02: Bedside Glucose (Misc Panel) 233H 10/05/18 19:50: Bedside Glucose (Misc Panel) 266H 10/06/18 05:22: Nucleated Red Blood Cells % (auto) 0.0, Anion Gap 8, Glomerular Filtration Rate 28.0L, Estimated Mean Plasma Glucose 258H, Hemoglobin A1c 10.6, Blood Urea Nitrogen 33H, Creatinine 2.53H, Sodium Level 142#, Potassium Level 4.3, Chloride Level 110H, Carbon Dioxide Level 24, Calcium Level 8.5, Aspartate Amino Transf (AST/SGOT) 11, Alanine Aminotransferase (ALT/SGPT) 22, Alkaline Phosphatase 74, Total Bilirubin 0.4, Total Protein 5.3L, Albumin 2.4L, Magnesium Level 1.9, Albumin/Globulin Ratio 0.83L, Vancomycin Level Trough 13.7 10/06/18 12:14: Bedside Glucose (Misc Panel) 195H CBC/BMP Laboratory Tests 10/06/18 05:22 Red Blood Count 6.15 H, Mean Corpuscular Volume 77.9 L, Mean Corpuscular Hemoglobin 23.4 L, Mean Corpuscular Hemoglobin Concent 30.1 L, Red Cell Distribution Width 17.8 H, Calcium Level 8.5, Aspartate Amino Transf (AST/SGOT) 11, Alanine Aminotransferase (ALT/SGPT) 22, Alkaline Phosphatase 74, Total Bilirubin 0.4, Total Protein 5.3 L, Albumin 2.4 L BASSEM RODRIGES MD October 06, 2018 12:56
[2018-10-06 14:00] VITALS: BP 140/75
[2018-10-06] MEDS: MORPHINE 4 MG/ML 1ML VIAL/SYRINGE (J2270) IV PRN (14:57)
[2018-10-06] MEDS: VANCOMYCIN HCL 750 MG, VIAL MATE ADAPTER 1 EACH in D5W 250 ML IV SCH (17:30)
[2018-10-06] MEDS: AMITRIPTYLINE 25 MG TAB PO SCH (20:53)
[2018-10-06] MEDS: ATORVASTATIN 10 MG TAB PO SCH (20:54)
[2018-10-06 22:00] VITALS: BP 165/79
[2018-10-07] MEDS: MORPHINE 4 MG/ML 1ML VIAL/SYRINGE (J2270) IV PRN ×2 (00:30→05:21)
[2018-10-07] MEDS: NS 1,000 ML IV SCH ×3 (00:36→23:38)
[2018-10-07] MEDS: VANCOMYCIN HCL 750 MG, VIAL MATE ADAPTER 1 EACH in D5W 250 ML IV SCH ×2 (05:21→17:42)
[2018-10-07 06:00] VITALS: BP 155/77
[2018-10-07] MEDS: HumaLOG INSULIN (NovoLOG) PER UNIT SC SCH ×4 (07:30→20:51)
[2018-10-07] MEDS: LEVEMIR (INSULIN DETEMIR) 1 UNITS/0.01ML SC SCH ×2 (08:33→20:50)
[2018-10-07] MEDS: amLODIPine 5 MG TAB PO SCH ×2 (08:34→20:50)
[2018-10-07] MEDS: ASPIRIN 81 MG ENTERIC TAB PO SCH (08:34)
[2018-10-07] MEDS: APIXABAN 5 MG TAB (ELIQUIS) PO SCH ×2 (08:34→20:50)
[2018-10-07] MEDS: ENALAPRIL MALEATE 10 MG TAB PO SCH ×2 (08:34→20:49)
[2018-10-07] MEDS: CARVedilol 12.5 MG TAB PO SCH ×2 (08:34→20:49)
[2018-10-07] MEDS: PANTOPRAZOLE 40MG TAB (PROTONIX) PO SCH (08:34)
[2018-10-07] MEDS: oxyCODONE 15 MG CR TAB PO SCH ×2 (08:35→20:51)
--- NOTE | 2018-10-07 10:52 | IPNPDOC ---
Subjective Date Seen The patient was seen on 10/07/18. Subjective Chief Complaint/HPI Still complaining of pain in his foot General: Denies: ROS Unobtainable, Chills, Night Sweats, Fatigue, Malaise, Normal Appetite, Other Symptoms Constitutional: Denies: Chills, Fever, Malaise, Night Sweats, Weakness, Fatigue, Weight Loss, Lethargy, Other Eyes: Denies: Pain, Vision change, Conjunctivae inflammation, Eyelid inflammation, Redness, Other ENT: Denies: Head Aches, Ear Pain, Dysphagia, Sinus Congestion, Post Nasal Drip, Sore Throat, Epistaxis, Other Symptoms Skin: Denies: Rash, Lesions, Jaundice, Bruising, Itching, Dry, Breakdown, Nail Changes, Other Pulmonary: Denies: Dyspnea, Cough, Pleuritic Chest Pain, Other Symptoms Cardiovascular: Denies: Chest Pain, Palpitations, Orthopnea, Paroxysmal Noc. Dyspnea, Edema, Lt Headedness, Other Symptoms Gastrointestinal: Denies: Nausea, Vomiting, Abdominal Pain, Diarrhea, Constipation, Melena, Hematochezia, Other Symptoms Genitourinary: Denies: Dysuria, Frequency, Incontinence, Hematuria, Retention, Other Symptoms Hematologic: Denies: Bruising, Bleeding Excessively, Petecchia, Purpura, Enlarged Lymph Nodes, Other Hematologic Endocrine: Denies: Polydipsia, Polyphagia, Polyuria, Heat Intolerance, Cold Intolerance, Other Endocrine Sx Musculoskeletal: Reports: Other Symptoms (10 in left foot) Neurological: Denies: Weakness, Numbness, Incoordination, Change in speech, Confusion, Seizures, Other Symptoms Psych: Denies: Mood Normal, Anxiety, Depression, Memory Issues, Thoughts of Self Harm, Anger, Thoughts of Harming Other, Other Psych Objective Physical Examination General Exam: Positive: Alert, Cooperative, No Acute Distress Neck Exam: Positive: Supple; Negative: JVD Chest Exam: Positive: Clear to auscultation, Normal air movement Heart Exam: Positive: Rate Normal, Regular Rhythm Abdomen Exam: Positive: Normal bowel sounds, Soft; Negative: Tenderness Extremity Exam: Positive: Other (chronic left heel ulcer on yellow dry base, with sowwounding erythema, edema and tenderness) Neuro Exam: Positive: Normal Speech, Strength at 5/5 X4 ext Psych Exam: Positive: Mental status NL, Mood NL; Negative: Anxiety A-FIB/CHADSVASC A-FIB History Current/History of A-Fib/PAF?: No Assessment /Plan Problems (1) Cellulitis of left leg Status: Acute Problem Text: Suspected Diabetic Foot Ulcer Infection, with surrounding Cellulitic Changes: previous MRSA infection -Admitted to inpatient - No indication for acute osteomyelitis -All the studies are consistent with cellulitis and soft tissue infection without osteomyelitis -Patient has been started on vancomycin. 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 - KEN and SSI diabetic diet - IV Fluid - Monitor renal functions and fingerstick blood sugar Plan/VTE VTE Prophylaxis Ordered?: No VTE Exclusion Mechanical Proph: N/A:VTE Prophy Ordered VTE Exclusion Pharmacological: Other VS, I&O, 24H, Fishbone Vital Signs/I&O Vital Signs Date Time Temp Pulse Resp B/P (MAP) Pulse Ox O2 Delivery O2 Flow Rate FiO2 10/07/18 08:35 18 10/07/18 08:34 73 155/77 10/07/18 06:00 98.4 94 10/04/18 23:19 Room Air I&O- Last 24 Hours up to 6 AM 10/07/18 06:00 Intake Total 3610 ml Output Total 3500 ml Balance 110 ml Laboratory Data 24H LABS Laboratory Tests 2 10/06/18 12:14: Bedside Glucose (Misc Panel) 195H 10/06/18 17:07: Bedside Glucose (Misc Panel) 247H 10/06/18 21:34: Bedside Glucose (Misc Panel) 379H 10/07/18 05:20: Bedside Glucose (Misc Panel) 136H BASSEM RODRIGES MD October 07, 2018 10:52
[2018-10-07 12:33] LABS: CALCIUM LEVEL 8.1 MG/DL (8.5-10.1); CREATININE FOR GFR 2.34 MG/DL (0.70-1.30); GLOMERULAR FILTRATION RATE 30.6 (>56); POTASSIUM SERUM 4.4 MEQ/L (3.5-5.1)
[2018-10-07 14:00] VITALS: BP 171/84
[2018-10-07] MEDS: NORCO, ANEXSIA 5/325MG TABLET (HYDROcodone/ACETAMINOPHEN) PO PRN ×2 (14:54→20:52)
--- NOTE | 2018-10-07 17:41 | PHACANCOPD ---
PHARMACY VANCOMYCIN DOSING Pt Demographics Demographics Patient Age:58 , Weight:135.910 , Gender: male Adjusted Body Weight Date: 10/05/18, Adjusted Body Weight: [107.8] Kg Events Past 24 Hours Events Past 24 Hours: NO: Dialysis, Diuretic Therapy, Change in CrCl, Fever, Elevation in WBC, Pending Diagnostics, Pending Procedures, Other Vancomycin Vancomycin indication: DIABETIC FOOT INFECTION Vancomycin Target Ranges: 10-20 mcg/ml Vancomycin Load Y/N: No Load Dose Date Time Vancomycin Load Dose: Date: Time: Vancomycin Dose Date: 10/05/18. Current Vancomycin Dose: [1gm q12h] Intermittent Dosing?: No Labs Labs Item Value Date Time White Blood Count 14.0 10^3/uL H 10/04/182002 White Blood Count 11.4 10^3/uL H 10/05/18515 White Blood Count 9.8 10^3/uL 10/06/18 0522 Creatinine 2.22 MG/DL H 10/05/18515 Creatinine 2.53 MG/DL H 10/06/18 0522 Creatinine 2.34 MG/DL H 10/07/18 1151 Vancomycin Level Trough 13.7 UG/ML 10/06/18 0522 Vancomycin Level Trough 15.9 UG/ML 10/07/18 1701 Creatinine Clearance Date:10/05/18. Creatinine Clearance: [69.4].CALCULATED Assessment and Plan Maintaining Current Dose?: Yes Reason for dose change: No Dose Change Pharmacist Note Pharmacist Note Date: 10/07/18. Pharmacist note:Vancomycin through came in at 17:01 @ 15.9mcg/ml. We will continue 750mg iv every 12 hours. We will continue to monitor and adjust the dose as needed. Date: 10/06/18. Pharmacist note:Vancomycin trough drawn this morning @5:22 reported as 13.7(goal=10-20)Patient SCR,however has increased steadily since admission, so will adjust Vancomycin dose to 750mg IV Q12H to begin at 1800 today- will continue to follow labs 10/05: A trough was obtained this morning from patient due to increase in Scr from 1.77 to 2.22 today. His trough came back at 9.8 after 1 dose of Vancomycin. He will be continued on his Vancomycin 1gm IV q12h and he has another trough scheduled tomorrow morning for 5am. He is afebrile, his WBC has improved from yesterday, his ESR is only one, and his CRP is 0.3. We will c ontinue to monitor and make adjustments as necessary. Date: 10/05/18. Pharmacist note:58 YOM Admitted w/diabetic foot infection. Scr=1.77 ,calculated CRCL=69.4(using ABW of 107.8 kg).treating w/ Pip/Tazo 2.25gm Q6H and Vancomycin per Pharmacy consult.Prior history of Vancomycin tx.Vancomycin 1GM 10/05@12mid,then will continue w/Vancomycin 1 gm iv Q12h@06.First trough is scheduled for 10/06@0500. Will continue to follow labs. MEE AVILA PHARMACY October 07, 2018 17:41
[2018-10-07] MEDS: AMITRIPTYLINE 25 MG TAB PO SCH (20:49)
[2018-10-07] MEDS: ATORVASTATIN 10 MG TAB PO SCH (20:49)
[2018-10-07 22:00] VITALS: BP 184/100
[2018-10-08] MEDS: NORCO, ANEXSIA 5/325MG TABLET (HYDROcodone/ACETAMINOPHEN) PO PRN ×4 (01:11→20:51)
[2018-10-08] MEDS: MORPHINE 4 MG/ML 1ML VIAL/SYRINGE (J2270) IV PRN (01:39)
[2018-10-08] MEDS: VANCOMYCIN HCL 750 MG, VIAL MATE ADAPTER 1 EACH in D5W 250 ML IV SCH (05:43)
[2018-10-08 06:00] VITALS: BP 178/90
[2018-10-08 06:29] LABS: HEMATOCRIT 44.9 % (42.0-52.0); HEMOGLOBIN 13.5 g/dl (13.5-17.5); MEAN CORPUSCULAR HGB CONC 30.1 g/dl (32.0-36.5); MEAN CORPUSCULAR VOLUME 79.9 fl (80.0-96.0); PLATELET COUNT, AUTOMATED 429 10^3/uL (150-450); RED BLOOD COUNT 5.62 10^6/uL (4.30-6.10); WHITE BLOOD COUNT 8.7 10^3/uL (4.0-10.0)
[2018-10-08 06:51] LABS: ALBUMIN 2.5 GM/DL (3.2-5.2); BILIRUBIN,TOTAL 0.5 MG/DL (0.2-1.0); CREATININE FOR GFR 2.21 MG/DL (0.70-1.30); GLOMERULAR FILTRATION RATE 32.7 (>56); POTASSIUM SERUM 4.1 MEQ/L (3.5-5.1); TOTAL PROTEIN 5.3 GM/DL (6.4-8.2)
[2018-10-08] MEDS: NS 1,000 ML IV SCH (07:15)
[2018-10-08] MEDS: HumaLOG INSULIN (NovoLOG) PER UNIT SC SCH ×4 (07:27→20:50)
[2018-10-08] MEDS: oxyCODONE 15 MG CR TAB PO SCH ×2 (08:04→20:51)
[2018-10-08] MEDS: LEVEMIR (INSULIN DETEMIR) 1 UNITS/0.01ML SC SCH ×2 (08:04→20:50)
[2018-10-08] MEDS: APIXABAN 5 MG TAB (ELIQUIS) PO SCH ×2 (08:05→20:49)
[2018-10-08] MEDS: ASPIRIN 81 MG ENTERIC TAB PO SCH (08:05)
[2018-10-08] MEDS: amLODIPine 5 MG TAB PO SCH ×2 (08:05→20:53)
[2018-10-08] MEDS: PANTOPRAZOLE 40MG TAB (PROTONIX) PO SCH (08:05)
[2018-10-08] MEDS: CARVedilol 12.5 MG TAB PO SCH ×2 (08:05→20:53)
[2018-10-08] MEDS: ENALAPRIL MALEATE 10 MG TAB PO SCH ×2 (08:05→20:53)
--- NOTE | 2018-10-08 12:27 | CR ---
DATE OF CONSULTATION: 10/08/2018 I was asked to consult by Dr. Vargas for evaluation of infected foot ulcer in a patient with a history of chronic osteomyelitis of the left foot and heel. HISTORY OF PRESENT ILLNESS: Jovanny is a 58-year-old gentleman with a history of uncontrolled insulin-dependent diabetes who had stepped on a nail in November 2016 and developed acute osteomyelitis of the calcaneus. This was a polymicrobial infection and the patient was treated with 6 weeks of antibiotics with slow improvement. The patient was readmitted to the hospital in January 2017 with persistent infection of the left heel. At that point, his culture was positive for methicillin sensitive Staphylococcus aureus (MSSA), Streptococcus viridans and Pervatella. Again in April 2017 he was readmitted with polymicrobial infection. Most recently, June 16, he was hospitalized until August 21 for a persistent wound infection, but this time his culture was positive for methicillin resistant Staphylococcus aureus (MRSA). He underwent an incision and drainage by Dr. Izaguirre and it was felt that the MRI findings of osteomyelitis were residual from previous infection and that was a superficial subcutaneous abscess. He was treated with IV vancomycin and Zosyn until June 25 and then switched to doxycycline from June 25 to . The patient was treated with antibiotics for a total of 1 month and his CRP and sed rate were normal when antibiotics were discontinued. He was discharged home on 08/21/2018 without antibiotics to follow up with the wound clinic every week and he was compliant with his visits to Dr. Knapp, who had been doing wound debridement and dressing changes. He was readmitted this time with increased swelling, redness, pain of the left foot along with worsening discharge. He had been seen by his primary care provider who recommended his hospitalization. He was started on IV vancomycin and Zosyn with improvement of his symptoms. White count was 14,000 and today it is 8.7, C-reactive protein and sed rate were normal. Ultrasound did not show any deep vein thrombosis (DVT), chronic kidney disease, diabetic nephropathy. PAST MEDICAL HISTORY: Uncontrolled diabetes, his glucose was 500 during this hospitalization, hypertension, hyperlipidemia, abdominal hernia, morbid obesity, chronic degenerative disk disease of the cervical spine, left heel osteomyelitis of calcaneus after a nail puncture with nonhealing calcaneus wound since November 2016, history of deep vein thrombosis (DVT) to his right arm after peripherally inserted central catheter (PICC) line placement. PAST SURGICAL HISTORY: Multiple foot debridements, tonsillectomy, hernia repair. SOCIAL HISTORY: He is not . He lives alone in a third floor apartment, which is a problem for him. He does not smoke or drink. He has a dog. FAMILY HISTORY: Nonrevealing. ALLERGIES: POVIDONE-IODINE MEDICATIONS: - Vancomycin 750 mg every12 hours - Zosyn for 48 hours from 10/04 to 10/06 was discontinued - Coreg 25 mg by mouth twice a day - aspirin 81 mg daily - amitriptyline 25 mg by mouth at night - apixaban 5 mg by mouth twice a day - insulin sliding scale - atorvastatin 10 mg by mouth at night - Levemir 60 units subcutaneous twice a day - clotrimazole to feet twice a day as needed for itching - hydrocodone as needed for pain - amlodipine 5 mg by mouth twice a day - oxycodone 15 mg by mouth twice a day - pantoprazole 40 mg daily - Tylenol as needed - enalapril 20 mg by mouth twice a day LABORATORY DATA: White count on admission was 14, hemoglobin 17, hematocrit 54.2, MCV 74.9. Today white count is 8.7, hemoglobin 13.5, hematocrit 44.9, platelets 429. ESR 1. Sodium 144, potassium 4.1, chloride 116, bicarbonate 23, BUN 26, creatinine 2.21, glucose 115, calcium 9, AST 12, ALT 17, alkaline phosphatase 66, albumin 2.5 and CRP 0.3. No cultures were done this admission. PHYSICAL EXAMINATION: Healthy-looking, obese gentleman in no acute distress. He has been afebrile throughout this admission, temperature is 97.7, pulse 72, respirations 20, blood pressure 178/90, oxygen sat 94% on room air. Heart: Normal S1, S2. No murmurs, rubs or gallops. Lungs are clear. No wheeze, rales or rhonchi. Abdomen: Morbidly obese, soft and nontender. Extremities: No clubbing, cyanosis or edema. Left heel has an open ulcer measuring about 2 cm x 1.2 cm x 1 cm depth with some serosanguineous discharge. There is minimal surrounding erythema. Minimal tenderness. No fluctuance. IMPRESSION: 58-year-old gentleman with noncompliance with poorly controlled diabetes with HbA1c of 10.6 who was admitted with superficial skin and soft tissue infection of the left leg. His white count was slightly elevated in 14,000 but now is normal after broad-spectrum antibiotics. No cultures were ordered. Foot x-ray did not show any evidence of osteomyelitis and vascular ultrasound showed no DVT. He is currently on IV vancomycin. Zosyn was discontinued. PLAN: Agree with discontinuation of IV vancomycin, switched to oral doxycycline with his previous history of MRSA in that wound at the dose of 100 mg by mouth twice a day for 7 days. Case has been discussed with Dr. Knapp and the patient was requesting whether he could have a wound Vac to promote wound healing, Dr. Knapp has agreed. I am not sure if his insurance will pay for it or if he has visiting nurses who are agreeable with wound Vac changes. Thank you for the consultation.
[2018-10-08] MEDS: DOXYCYCLINE HYCLATE 100 MG TAB PO SCH ×2 (13:23→20:49)
--- NOTE | 2018-10-08 13:30 | IPNPDOC ---
Date Seen The patient was seen on 10/08/18. Progress Note SUBJECTIVE: Patient complains of pain in his left foot which is improving otherwise patient denies chest pain shortness breath nausea vomiting fevers chills OBJECTIVE PHYSICAL EXAMINATION: VITAL SIGNS: Please see below. GENERAL: Pleasant obese man laying up in bed awake alert oriented aida faye in complete sentences no acute distress HEENT: Moist mucous membranes no elevation and CVP CARDIOVASCULAR: S1 S2 regular no additional heart sounds appreciated. RESPIRATORY: Clear to auscultation bilaterally. ABDOMINAL: Bowel sounds present abdomen soft and nontender, grossly obese EXTREMITIES: No clubbing cyanosis or edema, 1 cm ulcer appears well healing with granulation tissue tender no erythema or swelling or malodor NEUROLOGICAL: Spontaneously moves all 4 extremities cranial 2 through 12 grossly intact no gross focal deficits appreciated PSYCHOLOGICAL: Appropriate LABORATORY DATA, IMAGING STUDIES, MICROBIOLOGY: Please see below. DVT prophylaxis ordered?: Jean ASSESSMENT AND PLAN: This is a 58-year-old man with left heel cellulitis. PROBLEMS: 1. Left heel cellulitis: Patient with history of MRSA in this foot previously has had difficulties with clearing the infection and previously was on a long course of doxycycline as per infectious disease. Previously had an abscess associated with it at this time that appears be no evidence of abscess no evidence of osteomyelitis in inflammatory markers are essentially flat. Previously he is had difficulty with placement and has been unable to bear weight on the foot and lives on an apartment where he needs to climb stairs. I will check with infectious disease to see if he requires anything other than by mouth doxycycline I suspect that he complete a seven-day course for this and be enough. I'll also check with Dr. Tapia. Telemedicine consult to see if he is able to bear weight if so suspect to be dispositioned to his previous living environment without difficulty and have outpatient follow-up with wound care. I see no reason to be on IV fluids he's tolerating a diet well 2. Upper extremity DVT. Continue with Eliqujessica, was previously on Coumadin but a nonresponder. Concerns about his ability to be properly anticoagulated given his obesity with the newer agent however he appears to be tolerating quite well and has been switched at some point in the recent past I was unable to find the documentation 3. Dyslipidemia: Continue Lipitor 4. Chronic pain: Continue pain regimen and discontinue IV narcotics, continue with amitriptyline 5. Hypertension: Continue with enalapril, Norvasc, Coreg. He does have resistant hypertension possible secondary obstructive sleep apnea he is compliant with CPAP he may require further up titration of these medications blood pressure is not optimal at this point 6. Diabetes continue with Levemir and sliding scale fingersticks are adequate 7. Gastroesophageal reflux disease DISPOSITION: Pending ID and wound eval. A-FIB/CHADSVASC A-FIB History Current/History of A-Fib/PAF?: No Current Oral Anticoagulant The: Yes VS, I&O, 24H, Fishbone Vital Signs/I&O Vital Signs Date Time Temp Pulse Resp B/P (MAP) Pulse Ox O2 Delivery O2 Flow Rate FiO2 10/08/18 08:05 72 178/90 10/08/18 08:04 16 10/08/18 06:00 97.7 94 10/04/18 23:19 Room Air I&O- Last 24 Hours up to 6 AM 10/08/18 06:00 Intake Total 1080 ml Output Total 4800 ml Balance -3720 ml Laboratory Data 24H LABS Laboratory Tests 2 10/07/18 17:01: Vancomycin Level Trough 15.9 10/07/18 17:29: Bedside Glucose (Misc Panel) 218H 10/07/18 20:15: Bedside Glucose (Misc Panel) 287H 10/08/18 05:25: Nucleated Red Blood Cells % (auto) 0.0, Anion Gap 5L, Glomerular Filtration Rate 32.7L, Blood Urea Nitrogen 26H, Creatinine 2.21H, Sodium Level 144, Potassium Level 4.1, Chloride Level 116H, Carbon Dioxide Level 23, Calcium Level 9.0, Aspartate Amino Transf (AST/SGOT) 12, Alanine Aminotransferase (ALT/SGPT) 17, Alkaline Phosphatase 66, Total Bilirubin 0.5, Total Protein 5.3L, Albumin 2.5L, Albumin/Globulin Ratio 0.89L 10/08/18 11:54: Bedside Glucose (Misc Panel) 241H CBC/BMP Laboratory Tests 10/08/18 05:25 Red Blood Count 5.62, Mean Corpuscular Volume 79.9 L, Mean Corpuscular Hemoglobin 24.0 L, Mean Corpuscular Hemoglobin Concent 30.1 L, Red Cell Distribution Width 18.4 H, Calcium Level 9.0, Aspartate Amino Transf (AST/SGOT) 12, Alanine Aminotransferase (ALT/SGPT) 17, Alkaline Phosphatase 66, Total Bilirubin 0.5, Total Protein 5.3 L, Albumin 2.5 L SUE JENSEN MD October 08, 2018 13:30
[2018-10-08 14:00] VITALS: BP 160/80
[2018-10-08] MEDS: ATORVASTATIN 10 MG TAB PO SCH (20:49)
[2018-10-08] MEDS: AMITRIPTYLINE 25 MG TAB PO SCH (20:53)
[2018-10-08 22:00] VITALS: BP 158/83
[2018-10-09] MEDS: NORCO, ANEXSIA 5/325MG TABLET (HYDROcodone/ACETAMINOPHEN) PO PRN ×3 (02:33→19:55)
[2018-10-09 06:00] VITALS: BP 160/81
[2018-10-09] MEDS: HumaLOG INSULIN (NovoLOG) PER UNIT SC SCH ×4 (08:00→21:00)
[2018-10-09] MEDS: DOXYCYCLINE HYCLATE 100 MG TAB PO SCH ×2 (09:50→21:11)
[2018-10-09] MEDS: APIXABAN 5 MG TAB (ELIQUIS) PO SCH ×2 (09:50→21:11)
[2018-10-09] MEDS: CARVedilol 12.5 MG TAB PO SCH ×2 (09:51→21:10)
[2018-10-09] MEDS: ENALAPRIL MALEATE 10 MG TAB PO SCH ×2 (09:51→21:11)
[2018-10-09] MEDS: ASPIRIN 81 MG ENTERIC TAB PO SCH (09:51)
[2018-10-09] MEDS: PANTOPRAZOLE 40MG TAB (PROTONIX) PO SCH (09:51)
[2018-10-09] MEDS: LEVEMIR (INSULIN DETEMIR) 1 UNITS/0.01ML SC SCH ×2 (09:52→21:12)
[2018-10-09] MEDS: amLODIPine 5 MG TAB PO SCH ×2 (09:52→21:11)
[2018-10-09] MEDS: oxyCODONE 15 MG CR TAB PO SCH ×2 (10:14→21:08)
--- NOTE | 2018-10-09 11:39 | IPNPDOC ---
Text Note Date of Service The patient was seen on 10/09/18. NOTE Subjective: Patient is a 58-year-old male with a PMHx of HTN, DLP, IDDM2, Hx of DVT at [facility] 2/2 PICC, Chronic DDD of Cervical spine, Morbid obesity, who stepped on a nail 11/2017 and developed osteomyelitis of his Left calcaneus; he received 6 weeks of antibiotic therapy. Patient has been to the hospital several times for recurrence of infection. Patient was admitted on 10/04 for cellulitis of his left foot. The patient was placed on vancomycin. Infectious disease was called in consultation on 10/08. He has been transitioned to doxycycline PO. Infectious disease has consulted Dr. Knapp for further evaluation. Patient was seen and examined at the bedside. Currently, patient reports that his foot is feeling better. He denies any significant drainage. Reports some tenderness. I've advised him that we will discuss with Dr. Knapp for wound care recommendations. Currently, he denies chest pain, shortness of breath or palpitations. Denies any urinary discomfort. Objective: Vitals (See below) General: Lying in bed, no acute distress, comfortable, AAOx3 HEENT: NC, AT CVS: RRR, +S1S2 Lungs: Fair air entry b/l, -w/r/r Abdomen: Soft, ND, NT Extremities: - Edema, - Calf tenderness, L foot in dressing Assessment and plan: left heel cellulitis - Patient has an extensive history of left calcaneus osteomyelitis / cellulitis - Presented to the emergency room with complaints of worsening redness, warmth and mild swelling; associated with tenderness - XR Foot 10/04: Question soft tissue infection adjacent to the calcaneus as described. No plain film evidence of osteomyelitis. Advanced osteoarthritis, unchanged. - Left foot US 10/04: Severe cellulitis without convincing organized fluid collection. - Vascular US of LLE 10/04: 1. No sonographic evidence of deep venous thrombosis. 2. Additional findings, as above. - c/w Doxycline for 7 days; s/p Vancomycin (Day # 2 of 7) - Infectious disease on consult - Awaiting wound care recommendations and weight bearing status from Dr. Knapp and DVT at [facility] 2/2 PICC line placement - Failed to respond to Coumadin and was switched to Eliquis; initially was on Coumadin because of possible insufficiency with novel anticoagulation given his weight - c/w Eliquis; has been transitioned to this as an outpatient SARAH - allow home CPAP use HTN - c/w Enalapril, Carvedilol, Amlodipine DLP - c/w Atorvastatin and ASA IDDM2 - c/w ISS and Levemir Chronic DDD of Cervical spine - c/w pain control Morbid obesity - Complicated medical care Mood disorder - c/w Amitriptyline GERD - c/w Protonix DVT prophylaxis - c/w full anticoagulation with Eliquis Disposition: - Awaiting evaluation by wound care VS,Tali, I+O VS, Tali, I+O Vital Signs Date Time Temp Pulse Resp B/P (MAP) Pulse Ox O2 Delivery O2 Flow Rate FiO2 10/09/18 10:14 18 10/09/18 09:51 160/80 10/09/18 09:51 84 10/09/18 06:00 98.5 93 10/04/18 23:19 Room Air I&O- Last 24 Hours up to 6 AM 10/09/18 06:00 Intake Total 2160 ml Output Total 2700 ml Balance -540 ml BENNETT RAYO MD October 09, 2018 11:39
[2018-10-09 14:20] VITALS: BP 156/80
[2018-10-09] MEDS: ATORVASTATIN 10 MG TAB PO SCH (21:11)
[2018-10-09] MEDS: AMITRIPTYLINE 25 MG TAB PO SCH (21:11)
[2018-10-09 22:00] VITALS: BP 162/83
[2018-10-10 06:00] VITALS: BP 151/74
[2018-10-10] MEDS: oxyCODONE 15 MG CR TAB PO SCH ×2 (08:02→20:31)
[2018-10-10] MEDS: ASPIRIN 81 MG ENTERIC TAB PO SCH (08:03)
[2018-10-10] MEDS: ENALAPRIL MALEATE 10 MG TAB PO SCH ×2 (08:03→20:30)
[2018-10-10] MEDS: amLODIPine 5 MG TAB PO SCH ×2 (08:03→20:30)
[2018-10-10] MEDS: CARVedilol 12.5 MG TAB PO SCH ×2 (08:03→20:29)
[2018-10-10] MEDS: PANTOPRAZOLE 40MG TAB (PROTONIX) PO SCH (08:03)
[2018-10-10] MEDS: APIXABAN 5 MG TAB (ELIQUIS) PO SCH ×2 (08:04→20:30)
[2018-10-10] MEDS: HumaLOG INSULIN (NovoLOG) PER UNIT SC SCH ×4 (08:04→20:29)
[2018-10-10] MEDS: LEVEMIR (INSULIN DETEMIR) 1 UNITS/0.01ML SC SCH ×2 (08:04→20:29)
[2018-10-10] MEDS: DOXYCYCLINE HYCLATE 100 MG TAB PO SCH ×2 (08:04→20:30)
--- NOTE | 2018-10-10 10:35 | IPNPDOC ---
Text Note Date of Service The patient was seen on 10/10/18. NOTE Subjective: Patient is a 58-year-old male with a PMHx of HTN, DLP, IDDM2, Hx of DVT at [facility] 2/2 PICC, Chronic DDD of Cervical spine, Morbid obesity, who stepped on a nail 11/2017 and developed osteomyelitis of his Left calcaneus; he received 6 weeks of antibiotic therapy. Patient has been to the hospital several times for recurrence of infection. Patient was admitted on 10/04 for cellulitis of his left foot. The patient was placed on vancomycin. Infectious disease was called in consultation on 10/08. He has been transitioned to doxycycline PO. Infectious disease has consulted Dr. Knapp for further evaluation. Patient was seen and examined at the bedside. Patient has not experienced any events overnight. Patient reports that his left foot is not tender at baseline, however. Upon palpation there is some tenderness that is elicited. He denies any fevers or chills overnight. Reports dressing changes completed. Denies nausea, vomiting, abdominal pain, constipation, diarrhea, or urinary discomfort. Objective: Vitals (See below) General: Lying in bed, no acute distress, comfortable, AAOx3 HEENT: NC, AT CVS: RRR, +S1S2 Lungs: Air entry is fair bilaterally without evidence of wheezing, rhonchi or rales Abdomen: Soft, without distention or tenderness Extremities: No evidence of edema, - Calf tenderness, L foot with dressing in place and intact Assessment and plan: Left heel cellulitis - Patient has an extensive history of left calcaneus osteomyelitis / cellulitis - Presented to the emergency room with complaints of worsening redness, warmth and mild swelling; associated with tenderness - Currently, patient reports improvement in pain - XR Foot 10/04: Question soft tissue infection adjacent to the calcaneus as described. No plain film evidence of osteomyelitis. Advanced osteoarthritis, unchanged. - Left foot US 10/04: Severe cellulitis without convincing organized fluid collection. - Vascular US of LLE 10/04: 1. No sonographic evidence of deep venous thrombosis. 2. Additional findings, as above. - c/w Doxycycline for 7 days; s/p Vancomycin (Day # 3 of 7) - Infectious disease on consult - Awaiting wound care recommendations and weight bearing status from Dr. Knapp; anticipate Thursday DVT at [facility] 2/2 PICC line placement - Failed to respond to Coumadin and was switched to Eliquis; initially was on Coumadin because of possible insufficiency with novel anticoagulation given his weight - c/w Eliquis; has been transitioned to this as an outpatient SARAH - Allow home CPAP use HTN - c/w Enalapril, Carvedilol, Amlodipine DLP - c/w Atorvastatin and ASA IDDM2 - c/w ISS and Levemir Chronic DDD of Cervical spine - c/w pain control Morbid obesity - Complicated medical care Mood disorder - c/w Amitriptyline GERD - c/w Protonix DVT prophylaxis - c/w full anticoagulation with Eliquis Disposition: - Wound care consultation has been placed on 10/08/18 at 10 AM; awaiting evaluation by wound care VS,Tali, I+O VSTali, I+O Vital Signs Date Time Temp Pulse Resp B/P (MAP) Pulse Ox O2 Delivery O2 Flow Rate FiO2 10/10/18 08:03 151/74 10/10/18 08:03 65 10/10/18 08:02 16 10/10/18 06:00 97.3 93 10/04/18 23:19 Room Air I&O- Last 24 Hours up to 6 AM 10/10/18 06:00 Intake Total 3000 ml Output Total 4100 ml Balance -1100 ml BENNETT RAYO MD October 10, 2018 10:35
[2018-10-10] MEDS: NORCO, ANEXSIA 5/325MG TABLET (HYDROcodone/ACETAMINOPHEN) PO PRN ×3 (12:13→23:01)
[2018-10-10 14:00] VITALS: BP 148/82
[2018-10-10] MEDS: AMITRIPTYLINE 25 MG TAB PO SCH (20:30)
[2018-10-10] MEDS: ATORVASTATIN 10 MG TAB PO SCH (20:30)
[2018-10-10 22:00] VITALS: BP 160/84
[2018-10-11] MEDS: NORCO, ANEXSIA 5/325MG TABLET (HYDROcodone/ACETAMINOPHEN) PO PRN ×2 (03:33→15:19)
[2018-10-11 06:00] VITALS: BP 165/81
[2018-10-11] MEDS: CARVedilol 12.5 MG TAB PO SCH ×2 (08:27→21:10)
[2018-10-11] MEDS: HumaLOG INSULIN (NovoLOG) PER UNIT SC SCH ×4 (08:27→21:00)
[2018-10-11] MEDS: APIXABAN 5 MG TAB (ELIQUIS) PO SCH ×2 (08:27→21:11)
[2018-10-11] MEDS: LEVEMIR (INSULIN DETEMIR) 1 UNITS/0.01ML SC SCH ×2 (08:27→21:09)
[2018-10-11] MEDS: PANTOPRAZOLE 40MG TAB (PROTONIX) PO SCH (08:28)
[2018-10-11] MEDS: ASPIRIN 81 MG ENTERIC TAB PO SCH (08:28)
[2018-10-11] MEDS: ENALAPRIL MALEATE 10 MG TAB PO SCH ×2 (08:28→21:10)
[2018-10-11] MEDS: DOXYCYCLINE HYCLATE 100 MG TAB PO SCH ×2 (08:28→21:11)
[2018-10-11] MEDS: oxyCODONE 15 MG CR TAB PO SCH ×2 (08:28→21:09)
[2018-10-11] MEDS: amLODIPine 5 MG TAB PO SCH ×2 (08:29→21:10)
--- NOTE | 2018-10-11 12:08 | IPNPDOC ---
Text Note Date of Service The patient was seen on 10/11/18. NOTE Subjective: Patient is a 58-year-old male with a PMHx of HTN, DLP, IDDM2, Hx of DVT at [facility] 2/2 PICC, Chronic DDD of Cervical spine, Morbid obesity, who stepped on a nail 11/2017 and developed osteomyelitis of his Left calcaneus; he received 6 weeks of antibiotic therapy. Patient has been to the hospital several times for recurrence of infection. Patient was admitted on 10/04 for cellulitis of his left foot. The patient was placed on vancomycin. Infectious disease was called in consultation on 10/08. He has been transitioned to doxycycline PO. Infectious disease has consulted Dr. Knapp for further evaluation. Patient was seen and examined at the bedside. Currently he has no new complaints form overnight. He denies any CP, SOB or palpitations. Reports that his left foot does not experience significant pain. Is that we are still awaiting input from wound care for further recommendations. Objective: Vitals (See below) General: Lying in bed, no acute distress, comfortable, AAOx3 HEENT: NC, AT CVS: RRR, +S1S2 Lungs: There is fair air entry bilaterally without evidence of rhonchi, rales or wheezing Abdomen: Soft, ND, no tenderness on palpation Extremities: Trace edema noted, - Calf tenderness, L foot with dressing in place and intact Assessment and plan: Left heel cellulitis - Patient has an extensive history of left calcaneus osteomyelitis / cellulitis - Presented to the emergency room with complaints of worsening redness, warmth and mild swelling; associated with tenderness - Currently, patient reports improvement in pain - XR Foot 10/04: Question soft tissue infection adjacent to the calcaneus as described. No plain film evidence of osteomyelitis. Advanced osteoarthritis, unchanged. - Left foot US 10/04: Severe cellulitis without convincing organized fluid collection. - Vascular US of LLE 10/04: 1. No sonographic evidence of deep venous thrombosis. 2. Additional findings, as above. - c/w Doxycycline for 7 days; s/p Vancomycin (Day # 4 of 7) - Infectious disease on consult - Awaiting wound care recommendations and weight bearing status from Dr. Knapp today DVT at [facility] 2/2 PICC line placement - Failed to respond to Coumadin and was switched to Eliquis; initially was on Coumadin because of possible insufficiency with novel anticoagulation given his weight - c/w Eliquis; has been transitioned to this as an outpatient SARAH - Allow home CPAP use HTN - c/w Enalapril, Carvedilol, Amlodipine DLP - c/w Atorvastatin and ASA IDDM2 - c/w ISS and Levemir Chronic DDD of Cervical spine - c/w pain control Morbid obesity - Complicated medical care Mood disorder - c/w Amitriptyline GERD - c/w Protonix DVT prophylaxis - c/w full anticoagulation with Eliquis Disposition: - Wound care consultation has been placed on 10/08/18 at 10 AM; - Anticipate wound care evaluation today VS,Fishbone, I+O VS, Fishbone, I+O Vital Signs Date Time Temp Pulse Resp B/P (MAP) Pulse Ox O2 Delivery O2 Flow Rate FiO2 10/11/18 08:29 66 165/81 10/11/18 08:28 18 10/11/18 06:00 97.9 93 I&O- Last 24 Hours up to 6 AM 10/11/18 05:59 Intake Total 2700 ml Output Total 4825 ml Balance -2125 ml BENNETT RAYO MD October 11, 2018 12:08
[2018-10-11] MEDS: ATORVASTATIN 10 MG TAB PO SCH (21:10)
[2018-10-11] MEDS: AMITRIPTYLINE 25 MG TAB PO SCH (21:11)
[2018-10-11 22:00] VITALS: BP 170/90
[2018-10-12 06:00] VITALS: BP 148/68
[2018-10-12] MEDS: LEVEMIR (INSULIN DETEMIR) 1 UNITS/0.01ML SC SCH ×2 (09:13→21:57)
[2018-10-12] MEDS: HumaLOG INSULIN (NovoLOG) PER UNIT SC SCH ×4 (09:13→21:57)
[2018-10-12] MEDS: DOXYCYCLINE HYCLATE 100 MG TAB PO SCH ×2 (09:14→21:55)
[2018-10-12] MEDS: ASPIRIN 81 MG ENTERIC TAB PO SCH (09:14)
[2018-10-12] MEDS: oxyCODONE 15 MG CR TAB PO SCH ×2 (09:14→21:56)
[2018-10-12] MEDS: APIXABAN 5 MG TAB (ELIQUIS) PO SCH ×2 (09:14→21:55)
[2018-10-12] MEDS: CARVedilol 12.5 MG TAB PO SCH ×2 (09:20→21:54)
[2018-10-12] MEDS: ENALAPRIL MALEATE 10 MG TAB PO SCH ×2 (09:20→21:54)
[2018-10-12] MEDS: PANTOPRAZOLE 40MG TAB (PROTONIX) PO SCH (09:20)
[2018-10-12] MEDS: amLODIPine 5 MG TAB PO SCH ×2 (09:21→21:56)
--- NOTE | 2018-10-12 10:49 | IPNPDOC ---
Text Note Date of Service The patient was seen on 10/12/18. NOTE Subjective: Patient is a 58-year-old male with a PMHx of HTN, DLP, IDDM2, Hx of DVT at [facility] 2/2 PICC, Chronic DDD of Cervical spine, Morbid obesity, who stepped on a nail 11/2017 and developed osteomyelitis of his Left calcaneus; he received 6 weeks of antibiotic therapy. Patient has been to the hospital several times for recurrence of infection. Patient was admitted on 10/04 for cellulitis of his left foot. The patient was placed on vancomycin. Infectious disease was called in consultation on 10/08. He has been transitioned to doxycycline PO. Infectious disease has consulted Dr. Knapp for further evaluation. Patient was seen and examined at the bedside. Currently he has no new events overnight. Reports that his foot pain is doing better. Still awaiting evaluation by Dr. Knapp of wound care. Denies chest pain, shortness of breath or palpitations. Denies nausea, vomiting, abdominal pain or discomfort with urination. Objective: Vitals (See below) General: Lying in bed, no acute distress, comfortable, AAOx3 HEENT: NC, AT CVS: RRR, +S1S2 Lungs: Air entry is fair bilaterally, without auscultated evidence of wheezing, rhonchi or rales Abdomen: Remains soft without distention or tenderness Extremities: There is still trace edema, status post, - Calf tenderness, L foot with dressing in place and intact Assessment and plan: Left heel cellulitis - Patient has an extensive history of left calcaneus osteomyelitis / cellulitis - Presented to the emergency room with complaints of worsening redness, warmth and mild swelling; associated with tenderness - Currently, patient reports improvement in pain - XR Foot 10/04: Question soft tissue infection adjacent to the calcaneus as described. No plain film evidence of osteomyelitis. Advanced osteoarthritis, unchanged. - Left foot US 10/04: Severe cellulitis without convincing organized fluid collection. - Vascular US of E 10/04: 1. No sonographic evidence of deep venous thrombosis. 2. Additional findings, as above. - c/w Doxycycline for 7 days; s/p Vancomycin (Day # 5 of 7) - Infectious disease on consult - Awaiting wound care recommendations and weight bearing status from Dr. Knapp - solar energy sales specialist has been consulted for wound vac placement - awaiting Dr. Knapp recommendations DVT at [facility] 06/26 PICC line placement - Failed to respond to Coumadin and was switched to Eliquis; initially was on Coumadin because of possible insufficiency with novel anticoagulation given his weight - c/w Eliquis; has been transitioned to this as an outpatient SARAH - Allow home CPAP use HTN - c/w Enalapril, Carvedilol, Amlodipine DLP - c/w Atorvastatin and ASA IDDM2 - c/w ISS and Levemir Chronic DDD of Cervical spine - c/w Pain control Morbid obesity - Complicated medical care Mood disorder - c/w Amitriptyline GERD - c/w Protonix DVT prophylaxis - c/w full anticoagulation with Eliquis Disposition: - Wound care consultation has been placed on 10/08/18 at 10 AM; awaiting input - Consulted wound care by PT for wound vac placement VS,Fishbone, I+O VS, Fishbone, I+O Vital Signs Date Time Temp Pulse Resp B/P (MAP) Pulse Ox O2 Delivery O2 Flow Rate FiO2 10/12/18 09:21 82 168/78 10/12/18 09:14 18 10/12/18 06:00 98.3 94 I&O- Last 24 Hours up to 6 AM 10/12/18 05:59 Intake Total 2400 ml Output Total 4175 ml Balance -1775 ml BENNETT RAYO MD October 12, 2018 10:49
[2018-10-12] MEDS: NORCO, ANEXSIA 5/325MG TABLET (HYDROcodone/ACETAMINOPHEN) PO PRN ×2 (12:50→17:41)
[2018-10-12 14:00] VITALS: BP 159/90
[2018-10-12] MEDS ORDERED: DOXY100T PO (14:06)
[2018-10-12 15:39] LABS: HEMATOCRIT 45.4 % (42.0-52.0); MEAN CORPUSCULAR HEMOGLOBIN 24.6 pg (27.0-33.0); MEAN CORPUSCULAR HGB CONC 30.8 g/dl (32.0-36.5); MEAN CORPUSCULAR VOLUME 79.9 fl (80.0-96.0); PLATELET COUNT, AUTOMATED 495 10^3/uL (150-450); RED BLOOD COUNT 5.68 10^6/uL (4.30-6.10); WHITE BLOOD COUNT 8.8 10^3/uL (4.0-10.0)
[2018-10-12 16:03] LABS: C REACTIVE PROTEIN QUANTITATIV 0.56 MG/DL (0.00-0.30); CALCIUM LEVEL 9.5 MG/DL (8.5-10.1); CREATININE FOR GFR 2.02 MG/DL (0.70-1.30); GLOMERULAR FILTRATION RATE 36.3 (>56); POTASSIUM SERUM 4.9 MEQ/L (3.5-5.1)
--- NOTE | 2018-10-12 17:55 | IPN ---
DATE: 10/12/2018 Jovanny seems to be doing great. He had his wound VAC placed today by CORDELIA Rocha. She stated the wound looked great. He has mild foot pain with the wound VAC. No fever or chills. LABORATORY: White count is 8.8, hemoglobin 14, hematocrit 45.4, platelets 495. ESR is pending. Sodium 142, potassium 4.9, chloride 110, bicarbonate 24, BUN 23, creatinine 2.02, glucose 261, calcium 9.5, CRP 0.56. X-ray did not show any evidence of osteomyelitis and extremity ultrasound - no deep vein thrombosis (DVT). IMPRESSION: 1. Cellulitis of the left foot, doing much better. Currently on doxycycline. The patient has been on antibiotics since admission, currently day number day #9, with mildly elevated CRP at 0.5. 2. History of calcaneus osteomyelitis. At this point, seems to have healed but has residual ulcer. PLAN: Discharge the patient tomorrow with a wound VAC to be changed three times a week. Dr. Knapp to follow the patient once weekly and public health will change the other 2 days of the week. Discontinue oral doxycycline tomorrow. The patient would have finished 10 days of antibiotics.
[2018-10-12 18:28] LABS: ERYTHROCYTE SEDIMENTATION RATE 10 mm/hr (0-20)
[2018-10-12] MEDS: AMITRIPTYLINE 25 MG TAB PO SCH (21:55)
[2018-10-12] MEDS: ATORVASTATIN 10 MG TAB PO SCH (21:55)
[2018-10-12 22:00] VITALS: BP 154/92
[2018-10-13] MEDS: NORCO, ANEXSIA 5/325MG TABLET (HYDROcodone/ACETAMINOPHEN) PO PRN (03:38)
[2018-10-13 06:00] VITALS: BP 160/98
[2018-10-13] MEDS: HumaLOG INSULIN (NovoLOG) PER UNIT SC SCH (08:24)
[2018-10-13] MEDS: LEVEMIR (INSULIN DETEMIR) 1 UNITS/0.01ML SC SCH (08:24)
[2018-10-13] MEDS: PANTOPRAZOLE 40MG TAB (PROTONIX) PO SCH (08:27)
[2018-10-13] MEDS: amLODIPine 5 MG TAB PO SCH (08:27)
[2018-10-13 08:28] VITALS: BP 164/94
[2018-10-13] MEDS: APIXABAN 5 MG TAB (ELIQUIS) PO SCH (08:28)
[2018-10-13] MEDS: ENALAPRIL MALEATE 10 MG TAB PO SCH (08:28)
[2018-10-13] MEDS: ASPIRIN 81 MG ENTERIC TAB PO SCH (08:28)
[2018-10-13] MEDS: CARVedilol 12.5 MG TAB PO SCH (08:28)
[2018-10-13] MEDS: DOXYCYCLINE HYCLATE 100 MG TAB PO SCH (08:28)
[2018-10-13] MEDS: oxyCODONE 15 MG CR TAB PO SCH (08:29)
[2018-10-13] MEDS ORDERED: OXYC15TA66 PO (11:02)
[2018-10-13] MEDS ORDERED: PERC5TAB12 PO (11:02)
--- NOTE | 2018-10-13 11:13 | DS.PDOC ---
Discharge Summary General Date of Admission October 04, 2018 at 22:11 Date of Discharge 10/13/2018 Discharge Summary PROCEDURES PERFORMED DURING STAY: [None]. ADMITTING DIAGNOSES / DISCHARGE DIAGNOSES: Left heel cellulitis DVT at RUE 2/2 PICC line placement SARAH HTN DLP IDDM2 Chronic DDD of Cervical spine Morbid obesity Mood disorder GERD DVT prophylaxis COMPLICATIONS/CHIEF COMPLAINT: Left foot pain / drainage HISTORY OF PRESENT ILLNESS: Patient is a 58-year-old male with a PMHx of HTN, DLP, IDDM2, Hx of DVT at E 2/2 PICC, Chronic DDD of Cervical spine, Morbid obesity, who stepped on a nail 11/2017 and developed osteomyelitis of his Left calcaneus; he received 6 weeks of antibiotic therapy. Patient has been to the hospital several times for recurrence of infection. Patient was admitted on 10/04 for cellulitis of his left foot. The patient was placed on vancomycin. Infectious disease was called in consultation on 10/08. He has been transitioned to doxycycline PO. Infectious disease has consulted Dr. Knapp for further evaluation. HOSPITAL COURSE: Left heel cellulitis - Patient has an extensive history of left calcaneus osteomyelitis / cellulitis - Presented to the emergency room with complaints of worsening redness, warmth and mild swelling; associated with tenderness - Currently, patient reports improvement in pain - XR Foot 10/04: Question soft tissue infection adjacent to the calcaneus as described. No plain film evidence of osteomyelitis. Advanced osteoarthritis, unchanged. - Left foot US 10/04: Severe cellulitis without convincing organized fluid collection. - Vascular US of LLE 10/04: 1. No sonographic evidence of deep venous thrombosis. 2. Additional findings, as above. - c/w Doxycycline for 7 days; s/p Vancomycin (Day # 6 of 7) - will complete antibiotic course as outpatient - Infectious disease on consult - education specialist was consulted; wound VAC in place; will follow Dr. Knapp for continued wound care DVT at RUST 2/2 PICC line placement - Failed to respond to Coumadin and was switched to Eliquis; initially was on Coumadin because of possible insufficiency with novel anticoagulation given his weight - c/w Eliquis; has been transitioned to this as an outpatient SARAH - Allow home CPAP use HTN - c/w Enalapril, Carvedilol, Amlodipine DLP - c/w Atorvastatin and ASA IDDM2 - c/w ISS and Levemir Chronic DDD of Cervical spine - c/w Pain control Morbid obesity - Complicated medical care Mood disorder - c/w Amitriptyline GERD - c/w Protonix DVT prophylaxis - c/w full anticoagulation with Eliquis DISCHARGE MEDICATIONS: Please see below. ALLERGIES: Please see below. PHYSICAL EXAMINATION ON DISCHARGE: Vitals (See below) General: Lying in bed, no acute distress, comfortable, AAOx3 HEENT: NC, AT CVS: RRR, +S1S2 Lungs: Air entry is fair bilaterally, no evidence of rhonchi, rales or wheezing Abdomen: Abdomen is soft without tenderness / distention Extremities: There is still trace edema, status post, - Calf tenderness, L foot has new dressing in place with wound VAC present LABORATORY DATA: Please see below. ACTIVITY: [As tolerated]. DISCHARGE PLAN: Patient will follow up with Dr. Miki Tim, Dr. Ivory, Dr. Izaguirre and Dr. Knapp within 7 days Remain complaint with treatment plan and medications Return to the ER if you experience any problems DISPOSITION: Home with services DISCHARGE CONDITION: [Stable]. TIME SPENT ON DISCHARGE: 40 minutes Vital Signs/I&Os Vital Signs Date Time Temp Pulse Resp B/P (MAP) Pulse Ox O2 Delivery O2 Flow Rate FiO2 10/13/18 08:29 18 10/13/18 08:28 164/94 10/13/18 08:28 72 10/13/18 06:00 98.4 93 I&O- Last 24 Hours up to 6 AM 10/13/18 06:00 Intake Total 1275 ml Output Total 3925 ml Balance -2650 ml Laboratory Data Labs 24H Laboratory Tests 2 10/12/18 11:50: Bedside Glucose (Misc Panel) 268H 10/12/18 15:26: Nucleated Red Blood Cells % (auto) 0.0, Erythrocyte Sedimentation Rate 10, Anion Gap 8, Glomerular Filtration Rate 36.3L, Blood Urea Nitrogen 23H, Creatinine 2.02H, Sodium Level 142, Potassium Level 4.9, Chloride Level 110H, Carbon Dioxide Level 24, Calcium Level 9.5, C-Reactive Protein, Quantitative 0.56H 10/12/18 16:31: Bedside Glucose (Misc Panel) 207H 10/12/18 20:05: Bedside Glucose (Misc Panel) 269H 10/13/18 05:19: Bedside Glucose (Misc Panel) 198H CBC/BMP Laboratory Tests 10/12/18 15:26 Red Blood Count 5.68, Mean Corpuscular Volume 79.9 L, Mean Corpuscular Hemogl obin 24.6 L, Mean Corpuscular Hemoglobin Concent 30.8 L, Red Cell Distribution Width 19.0 H, Calcium Level 9.5 FSBS Laboratory Tests Test 10/12/18 11:50 10/12/18 16:31 10/12/18 20:05 10/13/18 05:19 Range/Units Bedside Glucose (Misc Panel) 268 207 269 198 70-105 MG/DL Discharge Medications Scheduled Amitriptyline HCl (Amitriptyline HCl) 25 Mg Tablet, 25 MG PO QHS, (Reported) Amlodipine Besylate (Amlodipine Besylate) 5 Mg Tablet, 5 MG PO BID, (Reported) Apixaban (Eliquis) 5 Mg Tablet, 5 MG PO BID, (Reported) Aspirin (Aspirin EC) 81 Mg Tablet.dr, 81 MG PO DAILY, (Reported) Atorvastatin Calcium (Atorvastatin Calcium) 10 Mg Tablet, 10 MG PO QHS, (Reported) Carvedilol (Carvedilol) 25 Mg Tablet, 25 MG PO BID, (Reported) Doxycycline Hyclate (Doxycycline Hyclate) 100 Mg Tablet, 100 MG PO BID Enalapril Maleate (Enalapril Maleate) 20 Mg Tablet, 20 MG PO BID, (Reported) Esomeprazole Magnesium (Nexium) 40 Mg Capsule.dr, 40 MG PO DAILY, (Reported) Insulin Aspart (Novolog) 100 Unit/1 Ml Cartridge, 1 DOSE SC ACHS, (Reported) PER SLIDING SCALE Insulin Detemir (Levemir) 100 Unit/1 Ml Vial, 68 UNITS SC DAILY, (Reported) Insulin Detemir (Levemir) 100 Unit/1 Ml Vial, 60 UNITS SC QHS, (Reported) Levocetirizine Dihydrochloride (Levocetirizine Dihydrochloride) 5 Mg Tablet, 5 MG PO DAILY, (Reported) Oxycodone HCl (Oxycontin) 15 Mg Tab.er.12h, 15 MG PO BID Scheduled PRN Clotrimazole (Lotrimin AF) 1 % Cre, 1 DOSE TOP BID PRN for ITCHING, (Reported) APPLY TO FEET Hydrocodone/Acetaminophen ([place] 5-325 Tablet) 1 Each Tablet, 1 TAB PO Q4H PRN for PAIN, (Reported) Oxycodone HCl/Acetaminophen (Percocet 5-325 mg Tablet) 1 Each Tablet, 1 TAB PO Q8HP PRN for MODERATE BREAKTHROUGH PAIN Allergies Coded Allergies: povidone-iodine (Verified Allergy, Unknown, 08/18/18) soap (Verified Allergy, Unknown, 08/18/18) BENNETT RAYO MD October 13, 2018 11:13
== END 2018-10-13 11:25 | disposition home health service (06) | DRG 638 ==
LOC: M ED 17:43 → M ED INP 22:11 → M MS5PR 23:45
PROVIDERS: ADMIT Internal Medicine; ATTEND Internal Medicine
DX: E11.621 Type 2 diabetes mellitus with foot ulcer (principal); L03.116 Cellulitis of left lower limb; G47.33 Obstructive sleep apnea (adult) (pediatric); I10 Essential (primary) hypertension; K21.9 Gastro-esophageal reflux disease without esophagitis; F39 Unspecified mood [affective] disorder; Z86.718 Personal history of other venous thrombosis and embolism; E66.01 Morbid (severe) obesity due to excess calories; Z79.899 Other long term (current) drug therapy; Z79.82 Long term (current) use of aspirin; Z79.4 Long term (current) use of insulin; Z88.8 Allergy status to other drugs, medicaments and biological substances; M51.36 Other intervertebral disc degeneration, lumbar region; M50.30 Other cervical disc degeneration, unspecified cervical region; E11.21 Type 2 diabetes mellitus with diabetic nephropathy; E78.5 Hyperlipidemia, unspecified

== ENCOUNTER 2018-10-29 15:34 | Inpatient (IN) | payer MEDICARE, MEDICAID ==
[~2018-10-29] VITALS: Ht 195.6 cm; Wt 147.5 kg
[~2018-10-29 15:34] MED LIST changes: +NORC1TAB7 PO; +NOVOINJ SC; +OXYC15TA66 PO; +VICT18IN SC
[2018-10-29] MEDS ORDERED: ONDANSETRON 4MG/2ML VIAL (J2405) IV ONE (16:45)
[2018-10-29] MEDS ORDERED: VANCOMYCIN HCL 1,000 MG, VIAL MATE ADAPTER 1 EACH in D5W 250 ML IV ONE (16:45)
[2018-10-29] MEDS: MORPHINE 4 MG/ML 1ML VIAL/SYRINGE (J2270) IV PRN ×3 (17:04→23:29)
[2018-10-29] MEDS ORDERED: BUPR-365 PO (17:06)
[2018-10-29] MEDS ORDERED: BASA100I SC (17:06)
[2018-10-29] MEDS: NS 1,000 ML IV SCH (17:24)
[2018-10-29 17:33] LABS: BASO # 0.1 10^3/uL (0.0-0.2); BASO % 0.9 % (0.0-1.0); EOS # 0.4 10^3/uL (0.0-0.50); EOS % 2.6 % (0.0-3.0); HEMATOCRIT 48.3 % (42.0-52.0); HEMOGLOBIN 14.9 g/dl (13.5-17.5); LYMPH # 1.2 10^3/uL (1.5-4.5); LYMPH % 9.1 % (24.0-44.0); MEAN CORPUSCULAR HEMOGLOBIN 23.8 pg (27.0-33.0); MEAN CORPUSCULAR HGB CONC 30.8 g/dl (32.0-36.5); MEAN CORPUSCULAR VOLUME 77.3 fl (80.0-96.0); MONO # 1.2 10^3/uL (0.0-0.8); NEUTROPHILS # 10.4 10^3/uL (1.8-7.7); NEUTROPHILS % 76.4 % (36.0-66.0); PLATELET COUNT, AUTOMATED 468 10^3/uL (150-450); RED BLOOD COUNT 6.25 10^6/uL (4.30-6.10); WHITE BLOOD COUNT 13.6 10^3/uL (4.0-10.0)
[2018-10-29 17:42] LABS: INR 1.33; PROTHROMBIN TIME 16.7 SECONDS (12.1-14.4)
[2018-10-29 17:51] LABS: ALBUMIN 2.7 GM/DL (3.2-5.2); BILIRUBIN,DIRECT 0.2 MG/DL (0.0-0.2); BILIRUBIN,TOTAL 0.6 MG/DL (0.2-1.0); C REACTIVE PROTEIN QUANTITATIV 7.53 MG/DL (0.00-0.30); CALCIUM LEVEL 8.2 MG/DL (8.5-10.1); CREATININE FOR GFR 2.25 MG/DL (0.70-1.30); POTASSIUM SERUM 4.4 MEQ/L (3.5-5.1); TOTAL PROTEIN 6.2 GM/DL (6.4-8.2)
[2018-10-29 18:36] LABS: ERYTHROCYTE SEDIMENTATION RATE 4 mm/hr (0-20)
[2018-10-29] MEDS ORDERED: GLUCAGON FOR INJ 1 MG VIAL (J1610) SC PRN (20:45)
[2018-10-29] MEDS ORDERED: GLUCOSE 4 GM CHEW TABLET PO PRN (20:45)
[2018-10-29] MEDS ORDERED: CLOTRIMAZOLE 1% TOPICAL CREAM 30GM TOP PRN (20:45)
[2018-10-29] MEDS ORDERED: DEXTROSE 50% 50 ML SYRINGE IV PRN (20:45)
[2018-10-29] MEDS ORDERED: APIXABAN 5 MG TAB (ELIQUIS) PO SCH (21:00)
--- NOTE | 2018-10-29 21:01 | PHACANCOPD ---
PHARMACY VANCOMYCIN DOSING Pt Demographics Demographics Patient Age:58 , Weight:110.910 , Gender: male Adjusted Body Weight Date: 10/29/18, Adjusted Body Weight: Kg Events Past 24 Hours Events Past 24 Hours: NO: Dialysis, Diuretic Therapy, Change in CrCl, Fever, Elevation in WBC, Pending Diagnostics, Pending Procedures, Other Vancomycin Vancomycin Target Ranges: 15-20 mcg/ml Vancomycin Load Y/N: Yes Load Dose Date Time Vancomycin Load Dose: 1000mg Date: 10-29 Time: 1800 Vancomycin Dose Date: 10/29/18. Current Vancomycin Dose: [750mg q12h] Intermittent Dosing?: No Labs Labs Item Value Date Time White Blood Count 13.6 10^3/uL H 10/29/18 1702 Glomerular Filtration Rate 32.0 L 10/29/18 1633 Creatinine 2.25 MG/DL H 10/29/18 1633 Blood Urea Nitrogen 18 MG/DL 10/29/18 1633 Vital Signs Label Value Date Time Patient Temperature 97.0 degrees F 10/29/18 1534 Temperature Source Temporal 10/29/18 1534 Micro Microbiology 10/29/18 Blood Culture, Received Pending 10/29/18 Blood Culture, Received Pending Creatinine Clearance Date:10/29/18. Creatinine Clearance: [~45]. Pending Labs Trough 06-09 @0500 Assessment and Plan Maintaining Current Dose?: Yes Reason for dose change: No Dose Change Pharmacist Note Pharmacist Note Date: 10/29/18. Pharmacist note:Dosing based on previous consult. Will monitor and make adjustments as needed. MOSES GRIGSBY PHARMACY Oct 29, 2018 21:01
[2018-10-29] MEDS: NORCO, ANEXSIA 5/325MG TABLET (HYDROcodone/ACETAMINOPHEN) PO PRN (21:09)
[2018-10-29] MEDS ORDERED: PROHANCE 279.3MG/ML 15ML VIAL (A9576) As Ordered ONE (22:01)
--- NOTE | 2018-10-29 22:02 | HPEPDOC ---
General Date of Admission 10/29/2018 Date of Service: Oct 29, 2018 Primary Care Physician: MEGHA CAMPUZANO MD Attending Physician: EVY THOMAS MD Chief Complaint The patient is a 58-year-old male admitted with a reason for visit of L Foot Infection. Source: Patient, Old records Exam Limitations: No limitations Timing/Duration: Week(s) Associated Symptoms: Nausea, Weakness History of Present Illness Mr. Herrera is a 58-year-old male who presents to [facility] Emergency Department with left leg pain. Patient states that he has worsening left leg pain. He had been to his appointment at the wound care center on 10/22/2018 after being hospitalized for 2 months with a chronic left heel wound ulcer that had a wound VAC in place. However, the wound VAC was not securing correctly and adjustments were made. His wound at that time was debrided, hemostasis was obtained, and the wound was dressed with hydrofera blue heavy drainage and the NPWT was applied. He returned to the wound care center on 10/29/2018 and it was noted that he left leg looked significantly worse with possible signs of lymphangitis and swelling. He was instructed to present to the Emergency Department for further evaluation. The patient states that after his debridement on Thursday his wound continued to bleed. By Thursday he developed cold chills with fever or night sweats. He stayed in bed all day. He describes a burning/stabbing pain in his foot extending up to his thigh since the extensive debridement with associated swelling. He also describes a pain around his hernia incision with associated urinary burning. He denies blood in his urine. He has chronic low back pain which has not changed in intensity or character. He has been nauseated, but has not vomited although he is dry heaving. He feels diffusely weak and lightheaded, but has not fallen. He has a non-productive cough with an intermittent sore throat. Emergency Department evaluation reveals mild tachycardia at 107 otherwise his vital signs are stable. He has a neutrophilic leukocytosis. No lactic acid. Mild elevation from baseline in his creatinine to 2.25. Foot x-ray obtained although no report is available. MRI has been ordered. Blood cultures are pending. Hospitalist service was consulted and patient was admitted for further medical management. Home Medications Scheduled Amitriptyline HCl (Amitriptyline HCl) 25 Mg Tablet, 25 MG PO QHS, (Reported) Amlodipine Besylate (Amlodipine Besylate) 5 Mg Tablet, 5 MG PO BID, (Reported) Apixaban (Eliquis) 5 Mg Tablet, 5 MG PO BID, (Reported) Aspirin (Aspirin EC) 81 Mg Tablet.dr, 81 MG PO DAILY, (Reported) Atorvastatin Calcium (Atorvastatin Calcium) 10 Mg Tablet, 10 MG PO QHS, (Reported) Bupropion HCl (Bupropion Xl) 150 Mg Tab.er.24h, 150 MG PO DAILY, (Reported) Carvedilol (Carvedilol) 25 Mg Tablet, 25 MG PO BID, (Reported) Enalapril Maleate (Enalapril Maleate) 20 Mg Tablet, 20 MG PO BID, (Reported) Esomeprazole Magnesium (Nexium) 40 Mg Capsule.dr, 40 MG PO DAILY, (Reported) Insulin Aspart (Novolog) 100 Unit/1 Ml Cartridge, 1 DOSE SC ACHS, (Reported) PER SLIDING SCALE Insulin Detemir (Levemir) 100 Unit/1 Ml Vial, 68 UNITS SC DAILY, (Reported) Insulin Glargine,Hum.rec.anlog (Basaglar Kwikpen U-100) 100 Unit/1 Ml Insuln.pen, 48 UNIT SC QHS, (Reported) Levocetirizine Dihydrochloride (Levocetirizine Dihydrochloride) 5 Mg Tablet, 5 MG PO QHS, (Reported) Scheduled PRN Clotrimazole (Lotrimin AF) 1 % Cre, 1 DOSE TOP BID PRN for ITCHING, (Reported) APPLY TO FEET Hydrocodone/Acetaminophen ([place] 5-325 Tablet) 1 Each Tablet, 1 TAB PO Q4H PRN for PAIN, (Reported) Allergies Coded Allergies: povidone-iodine (Verified Allergy, Unknown, 08/18/18) soap (Verified Allergy, Unknown, 08/18/18) Past Medical History Medical History 1. HTN 2. DM 3. GERD 4. DVT 5. DLP 6. SARAH 7. Osteomyelitis 8. Chronic wound ulcer, left heel 9. Depression 10. Allergies Surgical History 1. Tonsillectomy 2. Hernia repair x2 3. Left foot I&D x5 4. Right hallux amputation 5. Right total knee replacement Family History Father: , 65, renal Mother: Alive, 79, "half a heart", renal function at 5% Siblings - Brothers: x3, 51, 53, 59, DM Social History * Smoker: former Smoker (51 pack year history, quit 8 years ago) Alcohol: Denies Drugs: marijuana Pets in the home: Dog(s) (miniature pinscher rat terrier named DJ) Lives independently. . for 30 years. Three adult children that all live in [place]. 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 Uses a cane for mobility. Former smoker - started at age 16, quit 8 years ago, smoked 1.5 packs per day. Denies EtOH use. Smokes marijuana occasionally. A-FIB/CHADSVASC A-FIB History Current/History of A-Fib/PAF?: No Review of Systems Constitutional: Reports: Chills, Weakness; Denies: Fever, Night Sweats Eyes: Denies: Vision change, Conjunctivae inflammation, Eyelid inflammation, Redness ENT: Reports: Sore Throat; Denies: Head Aches, Dysphagia, Sinus Congestion, Post Nasal Drip, Epistaxis Skin: Denies: Rash, Lesions Pulmonary: Reports: Cough (non-productive); Denies: Dyspnea, Pleuritic Chest Pain Cardiovascular: Reports: Edema (left lower leg), Lt Headedness; Denies: Chest Pain, Palpitations, Orthopnea, Paroxysmal Noc. Dyspnea Gastrointestinal: Reports: Nausea, Abdominal Pain (lower abdomen, around hernia incision), Diarrhea (non-bloody); Denies: Vomiting, Constipation, Melena, Hematochezia Genitourinary: Reports: Dysuria; Denies: Frequency, Incontinence, Hematuria, Retention Hematologic: Denies: Bruising Musculoskeletal: Reports: Back Pain (chronic); Denies: Neck Pain, Joint Pain, Muscle Pain Neurological: Reports: Weakness; Denies: Numbness Physical Examination General Exam: Positive: Alert, Cooperative, Mild Distress Eye Exam: Positive: PERRLA, Conjunctiva & lids normal, EOMI; Negative: Sclera icteric, Ptosis ENT Exam: Positive: Atraumatic, Mucous membr. moist/pink, Pharynx Normal, Tongue Midline, Nares Patent; Negative: Pharyngeal Edema Neck Exam: Positive: Supple, +2 carotid pulse wo bruit; Negative: JVD, thyromegaly, Lymphadenopathy Chest Exam: Positive: Clear to auscultation, Normal air movement; Negative: Rales, Rhonchi, Wheezing, Diminished Heart Exam: Positive: Rate Normal, Regular Rhythm, Normal S1, Normal S2; Negative: Gallops, Murmurs, Rubs Abdomen Exam: Positive: BS Hypoactive, Soft, Tenderness (to palpation in the lower abdomen around the healed, clean, dry, intact hernia incision, no appreciable hernia); Negative: Hepatospenomegaly, Mass, Hernia Extremity Exam: Positive: Edema (non-pitting, left lower leg), Normal pulses, Swelling, Other (spreading erythema noted around left heel, circular unstageable wound ulcer on left heel that is 5m in greatest diameter with eschar noted in th e base, macerated periwound); Negative: Clubbing, Cyanosis, Tenderness Skin Exam: Positive: Breakdown (as noted above), Lesion (as noted above); Negative: Rash Neuro Exam: Positive: Normal Speech, Cranial Nerves 3-12 NL Psych Exam: Positive: Oriented x 3 Other physical findings 1. Left foot x-ray - No official report available. Vital Signs Vital Signs Date Time Temp Pulse Resp B/P (MAP) Pulse Ox O2 Delivery O2 Flow Rate FiO2 10/29/18 18:30 18 10/29/18 17:25 10/29/18 15:34 97.0 107 96 Room Air Height (in): 77 Weight (kg): 110.9 BMI (kg): 29 Laboratory Data Labs 24H Laboratory Tests 2 10/29/18 16:33: Anion Gap 10, Glomerular Filtration Rate 32.0L, Lactic Acid Level 0.8, Calcium Level 8.2L, Aspartate Amino Transf (AST/SGOT) 11, Alanine Aminotransferase (ALT/SGPT) 15, Alkaline Phosphatase 88, Total Bilirubin 0.6, Direct Bilirubin 0.2, C-Reactive Protein, Quantitative 7.53H, Total Protein 6.2L, Albumin 2.7L, A lbumin/Globulin Ratio 0.77L 10/29/18 17:02: Immature Granulocyte % (Auto) 2.0, White Blood Count 13.6H, Red Blood Count 6.25H, Hemoglobin 14.9, Hematocrit 48.3, Mean Corpuscular Volume 77.3L, Mean Corpuscular Hemoglobin 23.8L, Mean Corpuscular Hemoglobin Concent 30.8L, Red Cell Distribution Width 18.5H, Platelet Count 468H, Neutrophils (%) (Auto) 76.4H, Lymphocytes (%) (Auto) 9.1L, Monocytes (%) (Auto) 9.0H, Eosinophils (%) (Auto) 2.6, Basophils (%) (Auto) 0.9, Neutrophils # (Auto) 10.4H, Lymphocytes # (Auto) 1.2L, Monocytes # (Auto) 1.2H, Eosinophils # (Auto) 0.4, Basophils # (Auto) 0.1, Nucleated Red Blood Cells % (auto) 0.0, Erythrocyte Sedimentation Rate 4, Prothrombin Time 16.7H, Prothromb Time International Ratio 1.33 CBC/BMP Laboratory Tests 10/29/18 16:33 10/29/18 17:02 Red Blood Count 6.25 H, Mean Corpuscular Volume 77.3 L, Mean Corpuscular Hemoglobin 23.8 L, Mean Corpuscular Hemoglobin Concent 30.8 L, Red Cell Distribution Width 18.5 H, Neutrophils (%) (Auto) 76.4 H, Lymphocytes (%) (Auto) 9.1 L, Monocytes (%) (Auto) 9.0 H, Eosinophils (%) (Auto) 2.6, Basophils (%) (Auto) 0.9, Neutrophils # (Auto) 10.4 H, Lymphocytes # (Auto) 1.2 L, Monocytes # (Auto) 1.2 H, Eosinophils # (Auto) 0.4, Basophils # (Auto) 0.1 Microbiology Microbiology 10/29/18 Blood Culture, Received Pending 10/29/18 Blood Culture, Received Pending Plan / VTE VTE Prophylaxis Ordered?: Yes (Heparin drip) Plan Plan 1. Left heel/leg pain 2/2 cellulitis and possible underlying osteomyelitis 2/2 chronic wound ulcer MRI left foot ordered Left foot x-ray obtained Start Zosyn/Vancomycin, wound culture and gram stain ordered, ID and vascular surgery consulted Procalcitonin ordered Continue [place], started Morphine for pain control Holding Eliquis and ASA for possible evaluation for surgical intervention; on Heparin drip Wound care: place OptiLock over wound ulcer on left heel, wrap with Kerlex, monitor for drainage PT ordered 2. Abdominal pain 2/2 ? urinary tract infection or ? adhesions Urinalysis to evaluate for urinary tract infection Abdominal exam benign Could consider imaging if abdominal does not improve or worsens Continue with pain control as noted in #1 3. Renal insufficiency Holding ACEi --> monitor blood pressure NS @ 125 mLs/hr Monitor daily labs 4. DM with diabetic neuropathy Levemir 60 units SQ BID (patient is on Levemir 68 units SQ daily and insulin Glargine 48 units SQ QHS) SSI AC/HS, FSBS AC/HS, hypoglycemic protocol 2g sodium + consistent carbohydrate diet Disposition Admit: Med/Surg Anticipated hospitalization: 2 nights IVF: Initiate (NS @ 125 mLs/hr) Diet: Continue Current (2g sodium) Activity: Continue Current (activity as tolerated) Therapy: PT Medications: Increase Pain Meds (Morphine 2mg IV Q2HP), Start Antibiotics (Vancomycin 1gm IV, Zosyn 4.5g IV Q8H) Diagnostics: Check Labs, Repeat Labs in AM, Obtain Cultures (blood, urine), MRI (left foot) Anticipated Discharge: Home With Services GME ATTESTATION GME ATTESTATION My faculty preceptor for this patient encounter was physically present during the encounter and was fully available. All aspects of the patient interview, examination, medical decision making process, and medical care plan development were reviewed and approved by the faculty preceptor. The faculty preceptor is aware and concurs with the plan as stated in the body of this note and will attest to such by his/her cosignature. ATTENDING NOTE ATTENDING ATTESTATION: I performed a history and physical examination of the patient and discuss the management with the resident/SADDLE LINING STITCHER. I reviewed the resident's note and agree with the documented findings and plan of care. APRIL MACHUCA DO Oct 29, 2018 22:02 EVY THOMAS MD Oct 30, 2018 00:29
[2018-10-29] MEDS: HumaLOG INSULIN (NovoLOG) PER UNIT SC SCH (23:02)
[2018-10-29] MEDS: HEPARIN DRIP 25,000 UNITS in APPROPRIATE DILUENT 1 EA IV SCH (23:13)
[2018-10-29] MEDS: ATORVASTATIN 10 MG TAB PO SCH (23:21)
[2018-10-29] MEDS: AMITRIPTYLINE 25 MG TAB PO SCH (23:21)
[2018-10-29] MEDS: CARVedilol 12.5 MG TAB PO SCH (23:21)
[2018-10-29] MEDS: amLODIPine 5 MG TAB PO SCH (23:22)
[2018-10-29] MEDS: CETIRIZINE (ZyrTEC) 10 MG TAB PO SCH (23:22)
[2018-10-29] MEDS ORDERED: PILL CUTTER 1 EACH XX ONE (23:24)
[2018-10-29] MEDS: LEVEMIR (INSULIN DETEMIR) 1 UNITS/0.01ML SC SCH (23:25)
--- NOTE | 2018-10-29 23:33 | REPVR ---
EXAM: MR Left Lower Extremity Without and With Contrast, Foot EXAM DATE/TIME: 10/29/2018 10:42 PM CLINICAL HISTORY: 58 years old, male; Pain and signs and symptoms; Difficulty in walking and swelling, leg or foot and other: Fever open wound; Left; Additional info: R/O osteomyelitis, left foot TECHNIQUE: Imaging protocol: MR of the Left foot without and with intravenous contrast. Contrast material: PROHANCE; Contrast volume: 11 ml; Contrast route: HAND INJECTION COMPARISON: MRI-Foot W/O FOL WITH LEFT 06/16/2018 8:56 PM FINDINGS: Significantly degraded exam secondary to patient motion on multiple sequences Plantar hind foot soft tissue ulceration with inflammatory changes extending down to the plantar aspect of the calcaneus. There may be packing material present within this wound. Cortical irregularity and erosion of the plantar calcaneus posteriorly is seen, involving the plantar aponeurosis insertion. There is replacement of normal T1 marrow signal and marrow edema within the plantar calcaneus consistent with infiltrative marrow replacement No other osseous marrow replacement. Degenerative changes are seen in the mid foot articulations Soft tissue swelling is present in the subcutaneous tissues of the dorsal midfoot and forefoot with effacement of subcutaneous soft tissue planes. There is also an apparent skin defect or ulceration of the medial hindfoot at the level of the subtalar joint, plantar aspect. IMPRESSION: Plantar hind foot soft tissue ulceration and inflammation, with osteomyelitis changes involving the plantar posterior calcaneus, similar to the prior MRI. No new area of involvement and no drainable abscess Electronically signed by: Raoul Mendoza On 10/29/2018 23:33:18 PM
[2018-10-30 01:20] VITALS: BP 126/60
[2018-10-30] MEDS: PIPERACILLIN/TAZOBACTAM SOD 4.5 GM in D5W MINI-BAG PLUS 50 ML IV SCH ×4 (02:09→23:45)
[2018-10-30] MEDS: MORPHINE 4 MG/ML 1ML VIAL/SYRINGE (J2270) IV PRN ×3 (02:17→19:34)
[2018-10-30 02:35] LABS: APPEARANCE, URINE CLOUDY (CLEAR); BACTERIA, URINE AUTO NEGATIVE (NEGATIVE); BILIRUBIN, URINE AUTO NEGATIVE (NEGATIVE); BLOOD, URINE BLOOD NEGATIVE (NEGATIVE); COLOR, URINE AMBER (YELLOW); GLUCOSE, URINE (UA) AUTO 1+ mg/dL (NEGATIVE); KETONE, URINE AUTO NEGATIVE (NEGATIVE); LEUKOCYTE ESTERASE, URINE AUTO NEGATIVE (NEGATIVE); MUCUS, URINE SMALL (NEGATIVE); NITRITE, URINE AUTO NEGATIVE (NEGATIVE); PROTEIN, URINE AUTO 3+ mg/dL (NEGATIVE); RBC, URINE AUTO 3 /HPF (0-3); SPECIFIC GRAVITY URINE AUTO 1.028 (1.002-1.035); SQUAMOUS EPITHELIAL CELL UR AU 0 /HPF (0-6); TRANSITIONAL EPITHELIAL AUTO 1 /HPF; UROBILINOGEN, URINE AUTO 0.2 mg/dL (0.0-2.0); WBC, URINE AUTO 0 /HPF (0-3)
[2018-10-30] MEDS: NORCO, ANEXSIA 5/325MG TABLET (HYDROcodone/ACETAMINOPHEN) PO PRN ×4 (04:40→23:47)
[2018-10-30] MEDS: NS 1,000 ML IV SCH ×2 (04:41→08:26)
[2018-10-30] MEDS: VANCOMYCIN HCL 750 MG, VIAL MATE ADAPTER 1 EACH in D5W 250 ML IV SCH ×2 (05:31→19:34)
[2018-10-30 06:21] VITALS: BP 118/81
[2018-10-30 06:37] LABS: HEMOGLOBIN 13.1 g/dl (13.5-17.5); MEAN CORPUSCULAR HEMOGLOBIN 24.1 pg (27.0-33.0); MEAN CORPUSCULAR HGB CONC 30.5 g/dl (32.0-36.5); PLATELET COUNT, AUTOMATED 393 10^3/uL (150-450); RED BLOOD COUNT 5.44 10^6/uL (4.30-6.10); WHITE BLOOD COUNT 10.2 10^3/uL (4.0-10.0)
[2018-10-30 06:42] LABS: INR 1.32; PROTHROMBIN TIME 16.6 SECONDS (12.1-14.4)
[2018-10-30 06:43] LABS: PARTIAL THROMBOPLASTIN TIME 44.8 SECONDS (25.4-37.6)
[2018-10-30 06:52] LABS: CALCIUM LEVEL 7.9 MG/DL (8.5-10.1); CREATININE FOR GFR 2.35 MG/DL (0.70-1.30); GLOMERULAR FILTRATION RATE 30.5 (>56); POTASSIUM SERUM 3.6 MEQ/L (3.5-5.1)
[2018-10-30] MEDS: HEPARIN SOD (PORCINE) 5000 UNITS/ML VIAL IV PRN (07:17)
--- NOTE | 2018-10-30 08:07 | REP ---
LEFT FOOT, FOUR VIEWS: HISTORY: Nonhealing wound. COMPARISON: 02/18/2017. There is no acute fracture or dislocation. There is severe narrowing of the first metatarsophalangeal joint space with associated osteophyte formation. Marked atherosclerotic disease involves the tarsal and tarsometatarsal joint spaces. The bony structure is osteopenic. IMPRESSION: Degenerative change as described above. Electronically Signed by Mario Rodriguez MD 10/30/2018 08:08 A
[2018-10-30] MEDS: buPROPion **XL** TABLET 150MG (WELLBUTRIN XL) PO SCH (08:18)
[2018-10-30] MEDS: LEVEMIR (INSULIN DETEMIR) 1 UNITS/0.01ML SC SCH ×2 (08:18→20:47)
[2018-10-30] MEDS: HumaLOG INSULIN (NovoLOG) PER UNIT SC SCH ×4 (08:18→20:47)
[2018-10-30] MEDS: CARVedilol 12.5 MG TAB PO SCH ×2 (08:19→20:48)
[2018-10-30] MEDS: amLODIPine 5 MG TAB PO SCH ×2 (08:20→20:48)
[2018-10-30] MEDS: PANTOPRAZOLE 40MG TAB (PROTONIX) PO SCH (08:20)
[2018-10-30] MEDS ORDERED: ASPIRIN 81 MG ENTERIC TAB PO SCH (09:00)
--- NOTE | 2018-10-30 11:40 | IPNPDOC ---
Subjective Date Seen The patient was seen on 10/30/18. Subjective Chief Complaint/HPI Continues to have generalized malaise, aching of his foot . No fever or chills Objective Physical Examination General Exam: Positive: Alert, Cooperative, Mild Distress Eye Exam: Positive: PERRLA, Conjunctiva & lids normal, EOMI; Negative: Sclera icteric, Ptosis ENT Exam: Positive: Atraumatic, Mucous membr. moist/pink, Pharynx Normal, Tongue Midline, Nares Patent; Negative: Pharyngeal Edema Neck Exam: Positive: Supple, +2 carotid pulse wo bruit; Negative: JVD, thyromegaly, Lymphadenopathy Chest Exam: Positive: Clear to auscultation, Normal air movement; Negative: Rales, Rhonchi, Wheezing, Diminished Heart Exam: Positive: Rate Normal, Regular Rhythm, Normal S1, Normal S2; Negative: Gallops, Murmurs, Rubs Abdomen Exam: Positive: BS Hypoactive, Soft, Tenderness (to palpation in the lower abdomen around the healed, clean, dry, intact hernia incision, no appreciable hernia); Negative: Hepatospenomegaly, Mass, Hernia Extremity Exam: Positive: Edema (non-pitting, left lower leg), Normal pulses, Swelling, Other (spreading erythema noted around left heel, circular unstageable wound ulcer on left heel that is 5m in greatest diameter with eschar noted in the base, macerated periwound); Negative: Clubbing, Cyanosis, Tenderness Skin Exam: Positive: Breakdown (as noted above), Lesion (as noted above); Negative: Rash Neuro Exam: Positive: Normal Speech, Cranial Nerves 3-12 NL Psych Exam: Positive: Oriented x 3 Assessment /Plan Assessment Mr. Herrera is a 58-year-old male who presents to [facility]'s Emergency Department with left leg pain. 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 He is being followed at the wound clinic and dr Ivory for his recurring heel and foot wounds for several years. he was admitted here from 06/16/18 to 08/21/18 then from 10/04/18 to 10/13/18 for this ulcer. He had been to his appointment at the wound care center on 10/22/2018 that had a wound VAC in place. However, the wound VAC was not securing correctly and adjustments were made. His wound at that time was debrided, hemostasis was obtained, and the wound was dressed with hydrofera blue heavy drainage and the NPWT was applied. He returned to the wound care center on 10/29/2018 and it was noted that he left leg looked significantly worse with possible signs of lymphangitis and swelling. He was instructed to present to the Emergency Department for further evaluation. The patient states that after his debridement on Thursday his wound continued to bleed. By Thursday he developed cold chills with fever or night sweats. He stayed in bed all day. He describes a burning/stabbing pain in his foot extending up to his thigh since the extensive debridement with associated swelling. He was admitted left foot cellulitis, lymphangitis with chronic left heel ulcer and Janie on CKD. Left heel/leg cellulitis and possible underlying osteomyelitis 2/2 chronic wound ulcer Zosyn/Vancomycin, wound culture and gram stain ordered, ID and vascular surgery consulted Procalcitonin ordered Continue [place], started Morphine for pain control Wound care: place OptiLock over wound ulcer on left heel, wrap with Kerlex, monitor for drainage PT ordered JANIE on CKD Baseline creatinine 1.8 continue to monitor. ACEI on hold. Abdominal pain resolved. Urinalysis is negative. Abdominal exam benign DVT right upper extremity Holding Eliquis and ASA for possible evaluation for surgical intervention; on Heparin drip DM with diabetic neuropathy Levemir 60 units SQ BID (patient is on Levemir 68 units SQ daily and insulin Glargine 48 units SQ QHS) SSI AC/HS, FSBS AC/HS, hypoglycemic protocol 2g sodium + consistent carbohydrate diet Obesity and SARAH continue CPAP Hypertension BP controlled now. ACEI on hold Plan/VTE VTE Prophylaxis Ordered?: Yes (Heparin drip) Plan IVF: Initiate (NS @ 125 mLs/hr) Diet: Continue Current (2g sodium) Activity: Continue Current (activity as tolerated) Therapy: PT Medications: Increase Pain Meds (Morphine 2mg IV Q2HP), Start Antibiotics (Vancomycin 1gm IV, Zosyn 4.5g IV Q8H) Diagnostics: Check Labs, Repeat Labs in AM, Obtain Cultures (blood, urine), MRI (left foot) Anticipated Discharge: Home With Services VS, I&O, 24H, [facility] Vital Signs/I&O Vital Signs Date Time Temp Pulse Resp B/P (MAP) Pulse Ox O2 Delivery O2 Flow Rate FiO2 10/30/18 08:19 71 118/81 10/30/18 07:30 16 10/30/18 06:21 97.9 96 10/29/18 23:10 Room Air I&O- Last 24 Hours up to 6 AM 10/30/18 06:00 Intake Total 770 ml Output Total 350 ml Balance 420 ml Laboratory Data 24H LABS Laboratory Tests 2 10/29/18 16:33: Anion Gap 10, Glomerular Filtration Rate 32.0L, Lactic Acid Level 0.8, Calcium Level 8.2L, Aspartate Amino Transf (AST/SGOT) 11, Alanine Aminotransferase (ALT/SGPT) 15, Alkaline Phosphatase 88, Total Bilirubin 0.6, Direct Bilirubin 0.2, C-Reactive Protein, Quantitative 7.53H, Total Protein 6.2L, Albumin 2.7L, Albumin/Globulin Ratio 0.77L 10/29/18 17:02: Immature Granulocyte % (Auto) 2.0, White Blood Count 13.6H, Red Blood Count 6.25H, Hemoglobin 14.9, Hematocrit 48.3, Mean Corpuscular Volume 77.3L, Mean Corpuscular Hemoglobin 23.8L, Mean Corpuscular Hemoglobin Concent 30.8L, Red Cell Distribution Width 18.5H, Platelet Count 468H, Neutrophils (%) (Auto) 76.4H, Lymphocytes (%) (Auto) 9.1L, Monocytes (%) (Auto) 9.0H, Eosinophils (%) (Auto) 2.6, Basophils (%) (Auto) 0.9, Neutrophils # (Auto) 10.4H, Lymphocytes # (Auto) 1.2L, Monocytes # (Auto) 1.2H, Eosinophils # (Auto) 0.4, Basophils # (Auto) 0.1, Nucleated Red Blood Cells % (auto) 0.0, Erythrocyte Sedimentation Rate 4, Prothrombin Time 16.7H, Prothromb Time International Ratio 1.33 10/29/18 23:01: Bedside Glucose (Misc Panel) 224H 10/30/18 02:16: Urine Appearance CLOUDYH, Urine Color ZHEN, Urine pH 5.0, Urine Specific [place] 1.028, Urine Protein 3+H, Urine Glucose (UA) 1+H, Urine Ketones NEGATIVE, Urine Urobilinogen 0.2, Urine Bilirubin NEGATIVE, Urine Leukocyte Esterase NEGATIVE, Urine Blood NEGATIVE, Urine Nitrite NEGATIVE, Urine WBC (Auto) 0, Urine RBC (Auto) 3, Urine Hyaline Casts (Auto) 0, Urine Bacteria (Auto) NEGATIVE, Urine Squamous Epithelial Cells 0, Urine Transitional Epithelial Cells 1, Urine Mucus (Auto) SMALL, Urine Sperm (Auto) 10/30/18 06:11: Nucleated Red Blood Cells % (auto) 0.0, Prothrombin Time 16.6H, Prothromb Time International Ratio 1.32, Activated Partial Thromboplast Time 44.8H, Anion Gap 12, Glomerular Filtration Rate 30.5L, Blood Urea Nitrogen 21H, Creatinine 2.35H, Sodium Level 140, Potassium Level 3.6, Chloride Level 107, Carbon Dioxide Level 21, Calcium Level 7.9L CBC/BMP Laboratory Tests 10/29/18 16:33 10/29/18 17:02 Red Blood Count 6.25 H, Mean Corpuscular Volume 77.3 L, Mean Corpuscular Hemoglobin 23.8 L, Mean Corpuscular Hemoglobin Concent 30.8 L, Red Cell Distribution Width 18.5 H, Neutrophils (%) (Auto) 76.4 H, Lymphocytes (%) (Auto) 9.1 L, Monocytes (%) (Auto) 9.0 H, Eosinophils (%) (Auto) 2.6, Basophils (%) (Auto) 0.9, Neutrophils # (Auto) 10.4 H, Lymphocytes # (Auto) 1.2 L, Monocytes # (Auto) 1.2 H, Eosinophils # (Auto) 0.4, Basophils # (Auto) 0.1 10/30/18 06:11 Red Blood Count 5.44, Mean Corpuscular Volume 79.0 L, Mean Corpuscular Hemoglobin 24.1 L, Mean Corpuscular Hemoglobin Concent 30.5 L, Red Cell Distribution Width 18.0 H, Calcium Level 7.9 L Microbiology Microbiology 10/29/18 Blood Culture, Received Pending 10/29/18 Blood Culture, Received Pending 10/29/18 Gram Stain, Received Pending 10/29/18 Wound Culture, Received Pending GRICELDA OBANDO MD Oct 30, 2018 11:40
[2018-10-30] MEDS: HEPARIN DRIP 25,000 UNITS in APPROPRIATE DILUENT 1 EA IV SCH ×2 (14:44→23:46)
[2018-10-30 20:09] VITALS: BP 137/69
[2018-10-30 20:29] LABS: INR 1.22; PROTHROMBIN TIME 15.6 SECONDS (12.1-14.4)
[2018-10-30 20:31] LABS: PARTIAL THROMBOPLASTIN TIME 73.7 SECONDS (25.4-37.6)
[2018-10-30] MEDS: CETIRIZINE (ZyrTEC) 10 MG TAB PO SCH (20:47)
[2018-10-30] MEDS: ATORVASTATIN 10 MG TAB PO SCH (20:47)
[2018-10-30] MEDS: AMITRIPTYLINE 25 MG TAB PO SCH (20:48)
[2018-10-31 06:06] VITALS: BP 164/63
[2018-10-31 06:22] LABS: CALCIUM LEVEL 8.5 MG/DL (8.5-10.1); CREATININE FOR GFR 1.9 MG/DL (0.70-1.30); POTASSIUM SERUM 3.6 MEQ/L (3.5-5.1); VANCOMYCIN LEVEL TROUGH 9.7 UG/ML (10.0-20.0)
--- NOTE | 2018-10-31 06:34 | PHACANCOPD ---
PHARMACY VANCOMYCIN DOSING Pt Demographics Demographics Patient Age:58 , Weight:146.700 , Gender: male Adjusted Body Weight Date: 10/29/18, Adjusted Body Weight: Kg Vancomycin Vancomycin Target Ranges: 15-20 mcg/ml Vancomycin Load Y/N: Yes Load Dose Date Time Vancomycin Load Dose: 1000mg Date: 10-29 Time: 1800 Vancomycin Dose Date: 10/31/18. Current Vancomycin Dose: [750mg q8h] Intermittent Dosing?: No Labs Labs Item Value Date Time White Blood Count 10.2 10^3/uL H 10/30/18 0611 Creatinine 1.90 MG/DL H 10/31/18 0544 Blood Urea Nitrogen 18 MG/DL 10/31/18 0544 Glomerular Filtration Rate 39.0 L 10/31/18 05 Vancomycin Level Trough 9.7 UG/ML L 10/31/18 05 Vital Signs Label Value Date Time Patient Temperature 97.5 degrees F 10/31/18 06 Temperature Source Oral 10/31/18 0606 Micro Microbiology 10/29/18 Blood Culture - Preliminary, Resulted No growth after 24 hours . All specim... 10/29/18 Blood Culture - Preliminary, Resulted No growth after 24 hours . All specim... 10/29/18 Gram Stain - Final, Resulted 10/29/18 Wound Culture, Resulted Pending Creatinine Clearance Date:10/29/18. Creatinine Clearance: [~45]. Pending Labs Trough 06-09 @2100 Assessment and Plan Maintaining Current Dose?: No Reason for dose change: Trough too low Pharmacist Note Pharmacist Note Date: 10/29/18. Pharmacist note:Trough of 9.7 is below target range. Dose increased to 750mg q8h. Will continue to monitor and make adjustments as needed. MOSES GRIGSBY PHARMACY Oct 31, 2018 06:33
[2018-10-31] MEDS: VANCOMYCIN HCL 750 MG, VIAL MATE ADAPTER 1 EACH in D5W 250 ML IV SCH ×3 (06:49→22:06)
[2018-10-31] MEDS: NORCO, ANEXSIA 5/325MG TABLET (HYDROcodone/ACETAMINOPHEN) PO PRN ×3 (06:50→17:45)
[2018-10-31] MEDS: HEPARIN DRIP 25,000 UNITS in APPROPRIATE DILUENT 1 EA IV SCH ×2 (07:03→15:48)
[2018-10-31] MEDS: HumaLOG INSULIN (NovoLOG) PER UNIT SC SCH ×4 (07:30→20:37)
[2018-10-31 07:49] LABS: MEAN CORPUSCULAR HEMOGLOBIN 23.9 pg (27.0-33.0); MEAN CORPUSCULAR HGB CONC 29.8 g/dl (32.0-36.5); MEAN CORPUSCULAR VOLUME 80.1 fl (80.0-96.0); PLATELET COUNT, AUTOMATED 420 10^3/uL (150-450); RED BLOOD COUNT 5.87 10^6/uL (4.30-6.10); WHITE BLOOD COUNT 8.4 10^3/uL (4.0-10.0)
[2018-10-31] MEDS: PIPERACILLIN/TAZOBACTAM SOD 4.5 GM in D5W MINI-BAG PLUS 50 ML IV SCH ×2 (09:13→15:41)
[2018-10-31] MEDS: PANTOPRAZOLE 40MG TAB (PROTONIX) PO SCH (09:14)
[2018-10-31] MEDS: LEVEMIR (INSULIN DETEMIR) 1 UNITS/0.01ML SC SCH (09:14)
[2018-10-31] MEDS: amLODIPine 5 MG TAB PO SCH ×2 (09:14→20:48)
[2018-10-31] MEDS: CARVedilol 12.5 MG TAB PO SCH ×2 (09:14→20:48)
[2018-10-31] MEDS: buPROPion **XL** TABLET 150MG (WELLBUTRIN XL) PO SCH (09:15)
--- NOTE | 2018-10-31 11:10 | IPNPDOC ---
Subjective Date Seen The patient was seen on 10/31/18. Subjective Chief Complaint/HPI Still complaining of throbbing pain in his left heel otherwise the rest of his leg feels fine. No fever or chills, no chest pain or sob , no abdominal pain , had bowel movement today. Objective Physical Examination General Exam: Positive: Alert, Cooperative, Mild Distress Eye Exam: Positive: PERRLA, Conjunctiva & lids normal, EOMI; Negative: Sclera icteric, Ptosis ENT Exam: Positive: Atraumatic, Mucous membr. moist/pink, Pharynx Normal, Tongue Midline, Nares Patent; Negative: Pharyngeal Edema Neck Exam: Positive: Supple, +2 carotid pulse wo bruit; Negative: JVD, thyromegaly, Lymphadenopathy Chest Exam: Positive: Clear to auscultation, Normal air movement; Negative: Rales, Rhonchi, Wheezing, Diminished Heart Exam: Positive: Rate Normal, Regular Rhythm, Normal S1, Normal S2; Negative: Gallops, Murmurs, Rubs Abdomen Exam: Positive: BS Hypoactive, Soft, Tenderness (to palpation in the lower abdomen around the healed, clean, dry, intact hernia incision, no appreciable hernia); Negative: Hepatospenomegaly, Mass, Hernia Extremity Exam: Positive: Edema (non-pitting, left lower leg), Normal pulses, Swelling, Other (spreading erythema noted around left heel, circular unstageable wound ulcer on left heel that is 5m in greatest diameter with eschar noted in the base, macerated periwound); Negative: Clubbing, Cyanosis, Tenderness Skin Exam: Positive: Breakdown (as noted above), Lesion (as noted above); Negative: Rash Neuro Exam: Positive: Normal Speech, Cranial Nerves 3-12 NL Psych Exam: Positive: Oriented x 3 Assessment /Plan Assessment Mr. Herrera is a 58-year-old male who presents to [facility]'s Emergency Department with left leg pain. 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 He is being followed at the wound clinic and dr Ivory for his recurring heel and foot wounds for several years. he was admitted here from 06/16/18 to 08/21/18 then from 10/04/18 to 10/13/18 for this ulcer. He had been to his appointment at the wound care center on 10/22/2018 that had a wound VAC in place. However, the wound VAC was not securing correctly and adjustments were made. His wound at that time was debrided, hemostasis was obtained, and the wound was dressed with hydrofera blue heavy drainage and the NPWT was applied. He returned to the wound care center on 10/29/2018 and it was noted that he left leg looked significantly worse with possible signs of lymphangitis and swelling. He was instructed to present to the Emergency Department for further evaluation. The patient states that after his debridement on Thursday his wound continued to bleed. By Thursday he developed cold chills with fever or night sweats. He stayed in bed all day. He describes a burning/stabbing pain in his foot extending up to his thigh since extensive debridement with associated swelling. He was admitted left foot cellulitis, lymphangitis with chronic left heel ulcer and Janie on CKD. Left heel/leg cellulitis and possible underlying osteomyelitis 2/2 chronic wound ulcer Zosyn/Vancomycin, wound culture and gram stain ordered, ID and vascular surgery consulted Procalcitonin ordered Continue [place], started Morphine for pain control Wound care: place OptiLock over wound ulcer on left heel, wrap with Kerlex, monitor for drainage PT ordered JANIE on CKD Baseline creatinine 1.8 continue to monitor. ACEI on hold. Abdominal pain resolved. Urinalysis is negative. Abdominal exam benign probably from old hernia repair with mesh hich he thinks sometimes bothers him still. Surgery in 2005 DVT right upper extremity Holding Eliquis and ASA for possible evaluation for surgical intervention; on Heparin drip DM with diabetic neuropathy Levemir 60 units SQ BID (patient is on Levemir 68 units SQ daily and insulin Glargine 48 units SQ QHS) SSI AC/HS, FSBS AC/HS, hypoglycemic protocol 2g sodium + consistent carbohydrate diet Obesity and SARAH Hypertension BP controlled now. ACEI on hold Plan/VTE VTE Prophylaxis Ordered?: Yes (Heparin drip) Plan IVF: Initiate (NS @ 125 mLs/hr) Diet: Continue Current (2g sodium) Activity: Continue Current (activity as tolerated) Therapy: PT Medications: Increase Pain Meds (Morphine 2mg IV Q2HP), Start Antibiotics (Vancomycin 1gm IV, Zosyn 4.5g IV Q8H) Diagnostics: Check Labs, Repeat Labs in AM, Obtain Cultures (blood, urine), MRI (left foot) Anticipated Discharge: Home With Services VS, I&O, 24H, [facility] Vital Signs/I&O Vital Signs Date Time Temp Pulse Resp B/P (MAP) Pulse Ox O2 Delivery O2 Flow Rate FiO2 10/31/18 09:14 62 164/63 10/31/18 07:20 16 10/31/18 06:06 97.5 96 10/29/18 23:10 Room Air I&O- Last 24 Hours up to 6 AM 10/31/18 06:00 Intake Total 4389 ml Output Total 2275 ml Balance 2114 ml Laboratory Data 24H LABS Laboratory Tests 2 10/30/18 12:00: Bedside Glucose (Misc Panel) 108H 10/30/18 13:50: Activated Partial Thromboplast Time 44.3H 10/30/18 16:44: Bedside Glucose (Misc Panel) 148H 10/30/18 20:06: Activated Partial Thromboplast Time 73.7H, Prothrombin Time 15.6H, Prothromb Time International Ratio 1.22 10/30/18 20:13: Bedside Glucose (Misc Panel) 169H 10/31/18 00:53: Bedside Glucose (Misc Panel) 112H 10/31/18 01:41: Activated Partial Thromboplast Time 95.9H 10/31/18 05:44: Anion Gap 6L, Glomerular Filtration Rate 39.0L, Blood Urea Nitrogen 18, Creatinine 1.90H, Sodium Level 141, Potassium Level 3.6, Chloride Level 109H, Carbon Dioxide Level 26, Calcium Level 8.5, Vancomycin Level Trough 9.7L 10/31/18 07:15: Nucleated Red Blood Cells % (auto) 0.0 10/31/18 08:03: Bedside Glucose (Misc Panel) 181H CBC/BMP Laboratory Tests 10/31/18 05:44 Calcium Level 8.5 10/31/18 07:15 Red Blood Count 5.87, Mean Corpuscular Volume 80.1, Mean Corpuscular Hemoglobin 23.9 L, Mean Corpuscular Hemoglobin Concent 29.8 L, Red Cell Distribution Width 18.3 H Microbiology Microbiology 10/29/18 Blood Culture - Preliminary, Resulted No growth after 24 hours . All specim... 10/29/18 Blood Culture - Preliminary, Resulted No growth after 24 hours . All specim... 10/31/18 Stool Occult Blood (ANTOINE), Received Pending 10/29/18 Gram Stain - Final, Resulted 10/29/18 Wound Culture, Resulted Pending GRICELDA OBANDO MD Oct 31, 2018 11:10
[2018-10-31 14:57] VITALS: BP 138/76
[2018-10-31] MEDS: MORPHINE 4 MG/ML 1ML VIAL/SYRINGE (J2270) IV PRN ×2 (20:35→20:49)
[2018-10-31] MEDS: CETIRIZINE (ZyrTEC) 10 MG TAB PO SCH (20:48)
[2018-10-31] MEDS: ATORVASTATIN 10 MG TAB PO SCH (20:48)
[2018-10-31] MEDS: AMITRIPTYLINE 25 MG TAB PO SCH (20:48)
[2018-10-31] MEDS ORDERED: LEVEMIR (INSULIN DETEMIR) 1 UNITS/0.01ML SC ONE (21:00)
--- NOTE | 2018-10-31 21:39 | PHACANCOPD ---
PHARMACY VANCOMYCIN DOSING Pt Demographics Demographics Patient Age:58 , Weight:140.800 , Gender: male Adjusted Body Weight Date: 10/29/18, Adjusted Body Weight: Kg Events Past 24 Hours Events Past 24 Hours: NO: Dialysis, Diuretic Therapy, Change in CrCl, Fever, Elevation in WBC, Pending Diagnostics, Pending Procedures, Other Vancomycin Vancomycin Target Ranges: 15-20 mcg/ml Vancomycin Load Y/N: Yes Load Dose Date Time Vancomycin Load Dose: 1000mg Date: 10-29 Time: 1800 Vancomycin Dose Date: 10/31/18. Current Vancomycin Dose: [750mg q8h] Intermittent Dosing?: No Labs Labs Item Value Date Time Vancomycin Level Trough 14.9 UG/ML 10/31/18 2101 White Blood Count 8.4 10^3/uL 10/31/18 0715 Glomerular Filtration Rate 39.0 L 10/31/18 0544 Creatinine 1.90 MG/DL H 10/31/18 0544 Blood Urea Nitrogen 18 MG/DL 10/31/18 0544 Vital Signs Label Value Date Time Patient Temperature 98.2 degrees F 10/31/18 1457 Temperature Source Oral 10/31/18 1457 Micro Microbiology 10/29/18 Blood Culture - Preliminary, Resulted No Growth after 48 hours. All Specime... 10/29/18 Blood Culture - Preliminary, Resulted No Growth after 48 hours. All Specime... 10/31/18 Stool Occult Blood (ANTOINE) - Final, Complete 10/29/18 Gram Stain - Final, Resulted 10/29/18 Wound Culture, Resulted Pending Creatinine Clearance Date:10/31/18. Creatinine Clearance: [~53]. Pending Labs Trough 06-09 @2100 Assessment and Plan Maintaining Current Dose?: Yes Reason for dose change: No Dose Change Pharmacist Note Pharmacist Note Date: 10/31/18. Pharmacist note:Trough of 14.9 is acceptable. will continue current dosing. Will continue to monitor and make adjustments as needed. MOSES GRIGSBY PHARMACY Oct 31, 2018 21:39
[2018-10-31 22:00] VITALS: BP 158/86
[2018-11-01] MEDS: PIPERACILLIN/TAZOBACTAM SOD 4.5 GM in D5W MINI-BAG PLUS 50 ML IV SCH ×3 (00:19→17:04)
[2018-11-01] MEDS: HEPARIN DRIP 25,000 UNITS in APPROPRIATE DILUENT 1 EA IV SCH ×3 (01:23→19:39)
[2018-11-01] MEDS: NORCO, ANEXSIA 5/325MG TABLET (HYDROcodone/ACETAMINOPHEN) PO PRN (01:24)
[2018-11-01] MEDS: VANCOMYCIN HCL 750 MG, VIAL MATE ADAPTER 1 EACH in D5W 250 ML IV SCH ×2 (05:25→13:10)
[2018-11-01 06:00] VITALS: BP 172/90
[2018-11-01 06:10] LABS: HEMATOCRIT 43.3 % (42.0-52.0); HEMOGLOBIN 13.1 g/dl (13.5-17.5); MEAN CORPUSCULAR HEMOGLOBIN 23.4 pg (27.0-33.0); MEAN CORPUSCULAR HGB CONC 30.3 g/dl (32.0-36.5); MEAN CORPUSCULAR VOLUME 77.3 fl (80.0-96.0); PLATELET COUNT, AUTOMATED 488 10^3/uL (150-450); WHITE BLOOD COUNT 8.4 10^3/uL (4.0-10.0)
[2018-11-01] MEDS ORDERED: PILL CUTTER 1 EACH XX PRN (06:30)
[2018-11-01 06:34] LABS: CALCIUM LEVEL 8.9 MG/DL (8.5-10.1); CREATININE FOR GFR 1.62 MG/DL (0.70-1.30); GLOMERULAR FILTRATION RATE 46.8 (>56); POTASSIUM SERUM 4.2 MEQ/L (3.5-5.1)
[2018-11-01] MEDS: HEPARIN SOD (PORCINE) 5000 UNITS/ML VIAL IV PRN (06:48)
[2018-11-01] MEDS: HumaLOG INSULIN (NovoLOG) PER UNIT SC SCH ×4 (08:37→21:00)
[2018-11-01] MEDS: buPROPion **XL** TABLET 150MG (WELLBUTRIN XL) PO SCH (08:37)
[2018-11-01] MEDS: CARVedilol 12.5 MG TAB PO SCH ×2 (08:40→22:07)
[2018-11-01] MEDS: PANTOPRAZOLE 40MG TAB (PROTONIX) PO SCH (08:41)
[2018-11-01] MEDS: amLODIPine 5 MG TAB PO SCH ×2 (08:41→22:07)
[2018-11-01] MEDS: PERCOCET 5MG/325MG TAB PO PRN ×3 (08:42→22:06)
[2018-11-01] MEDS: LEVEMIR (INSULIN DETEMIR) 1 UNITS/0.01ML SC SCH ×2 (08:49→22:05)
--- NOTE | 2018-11-01 09:36 | IPNPDOC ---
Date Seen The patient was seen on 11/01/18. Progress Note SUBJECTIVE: Patient is a 58-year-old male with chronic recurrent left heel ulcer and osteomyelitis. Patient is evaluated at bedside this morning. He states that he did not sleep well due to pain that has not been adequately controlled. He denies chest pain, shortness of breath, fever, night sweats, chills. He missed ordering breakfast this morning, but would still like something to eat. OBJECTIVE PHYSICAL EXAMINATION: VITAL SIGNS: Please see below. GENERAL: Well nourished, well developed male, obese, alert and conversant, no acute distress. HEENT: Atraumatic, normocephalic, PERRL, EOMI, oral mucosa appears pink and moist, nasal septum appears midline, nares are patent. CARDIOVASCULAR: Regular rate and rhythm, normal S1 and S2, no murmur, rub, click. RESPIRATORY: Clear to auscultation on the right, diminished breath sounds on the left without focal consolidations, wheeze, rhonchi, or crackles. ABDOMINAL: Obese, soft, non-tender, non-distended. EXTREMITIES: Improving erythema of left lower extremity, left foot is wrapped in Kerlex, non-pitting left lower extremity edema. NEUROLOGICAL: CN II-XII grossly intact. PSYCHOLOGICAL: Mood and affect appropriate. LABORATORY DATA, IMAGING STUDIES, MICROBIOLOGY: Please see below. DVT prophylaxis ordered?: Heparin drip. ASSESSMENT AND PLAN: This is a 58-year-old male with chronic recurrent wound ulcer with osteomyelitis. PROBLEMS: 1. Chronic recurrent left heel wound ulcer with osteomyelitis C/W Vancomycin and Zosyn; ID consulted Wound culture on 10/29/2018: Enterobacter Cloacae Complex and Strep Agalactiae Group B\ Blood culture on 10/29/2018: negative VS stable, resolved leukocytosis Vascular surgery consulted: plan for angiogram 11/02/2018 C/W Percocet for pain control PICC line ordered: possibility for long-term antibiotics PT has been ordered 2. Acute kidney injury on chronic kidney disease Baseline creatinine 1.8 Current creatinine 1.62 Restarting Enalapril 20mg PO BID as BP remains elevated and renal function as improved beyond baseline 3. Deep venous thrombosis, right upper extremity Eliquis and ASA on hold for possible surgical intervention C/W Heparin drip and protocol 4. Diabetes mellitus, type II C/W Levemir 60 units SQ BID (home dosage 68 units SQ daily and 48 units SQ QHS) FSBS AC/HS, SSI AC/HS, hypoglycemic protocol C/W 2g sodium + consistent carbohydrate diet 5. Hypertension C/W Carvedilol Restarting Enalapril 20mg PO BID as BP remains elevated DISPOSITION: Angiogram 10/29/2018. Attending Note I have examined the patient and discussed the plan of care with the resident. I agree with the resident's documentation. VS, I&O, 24H, [facility] Vital Signs/I&O Vital Signs Date Time Temp Pulse Resp B/P (MAP) Pulse Ox O2 Delivery O2 Flow Rate FiO2 11/01/18 08:42 18 11/01/18 08:41 80 170/92 11/01/18 06:00 98.3 92 10/29/18 23:10 Room Air I&O- Last 24 Hours up to 6 AM 11/01/18 06:00 Intake Total 2686 ml Output Total 5125 ml Balance -2439 ml Laboratory Data 24H LABS Laboratory Tests 2 10/31/18 12:11: Bedside Glucose (Misc Panel) 195H 10/31/18 16:49: Bedside Glucose (Misc Panel) 123H 10/31/18 20:31: Bedside Glucose (Misc Panel) 187H 10/31/18 21:01: Vancomycin Level Trough 14.9 11/01/18 05:36: Nucleated Red Blood Cells % (auto) 0.0, Activated Partial Thromboplast Time 60.9H, Anion Gap 5L, Glomerular Filtration Rate 46.8L, Blood Urea Nitrogen 16, Creatinine 1.62H, Sodium Level 141, Potassium Level 4.2, Chloride Level 108H, Carbon Dioxide Level 28, Calcium Level 8.9 CBC/BMP Laboratory Tests 11/01/18 05:36 Red Blood Count 5.60, Mean Corpuscular Volume 77.3 L, Mean Corpuscular Hemoglobin 23.4 L, Mean Corpuscular Hemoglobin Concent 30.3 L, Red Cell Distribution Width 17.8 H, Calcium Level 8.9 Microbiology Microbiology 10/29/18 Blood Culture - Preliminary, Resulted No Growth after 48 hours. All Specime... 10/29/18 Blood Culture - Preliminary, Resulted No Growth after 48 hours. All Specime... 10/31/18 Stool Occult Blood (ANTOINE) - Final, Complete 10/29/18 Gram Stain - Final, Resulted 10/29/18 Wound Culture - Preliminary, Resulted Enterobacter Cloacae Complex Strep Agalactiae Group B APRIL MACHUCA DO Nov 01, 2018 09:36 GRICELDA OBANDO MD Nov 01, 2018 23:40
[2018-11-01] MEDS: ENALAPRIL MALEATE 10 MG TAB PO SCH ×2 (09:56→22:06)
--- NOTE | 2018-11-01 15:32 | IPNPDOC ---
Date Seen The patient was seen on 11/01/18. Progress Note Vascular Surgery Dr Go. REASON FOR CONSULTATION: non healing wound LLE HPI: 58year oldM with a past medical history significant for non healing wound LLE, chronic recurrent left heel ulcer and osteomyelitis. Vascular surgery consulted re non healing wound. Follows with Dr Knapp as outpt for wound mgmt. Denies any fevers, chills, weakness, fatigue, Headache, Chest Pain, Shortness of breath, cough, palpitations, abdominal pain, N/V/D or changes in bowel or bladder habits. Medical History 1. HTN 2. DM 3. GERD 4. DVT 5. DLP 6. SARAH 7. Osteomyelitis 8. Chronic wound ulcer, left heel 9. Depression 10. Allergies Surgical History 1. Tonsillectomy 2. Hernia repair x2 3. Left foot I&D x5 4. Right hallux amputation 5. Right total knee replacement Family History Father: , 65, kidney disease Mother: Alive, 79, heart disease, kidney disease Siblings - Brothers: x3, 51, 53, 59, DM Social History Smoker: former Smoker (51 pack year history, quit 8 years ago) Alcohol: Denies Drugs: marijuana ROS: As noted in HPI, otherwise 11pt ROS of systems reviewed and unremarkable. PE: GEN: 58yoM, appears stated age. No acute distress. HEENT: Normocephalic, atraumatic. Sclera are nonicteric. Conjunctiva without injection. Moist mucous membranes. CHEST: Regular rate and rhythm, +S1, +S2 LUNGS: Clear to auscultation bilaterally. No wheezes, rales, or rhonchi. ABD: Round, soft, non-tender, non-distended. +Bowel sounds throughout. No rebound or guarding. EXT: Left foot with circular ulceration on heel, eschar, surrounding erythema and macerated appearing tissue, brownish drainage. NEURO: Alert and oriented x 3. No focal deficits appreciated. A&P: 58year oldM with a past medical history significant for non healing wound LLE, chronic recurrent left heel ulcer and osteomyelitis. Vascular surgery consulted re non healing wound. 1. Chronic recurrent left heel wound ulcer with osteomyelitis Vancomycin and Zosyn per primary team. ID consulted Wound culture on 10/29/2018: Enterobacter Cloacae Complex and Strep Agalactiae Group B The pt is reviewed and discussed with Dr Go, tentative plan for angiogram 11/02/[address] Go. 2. chronic kidney disease Baseline creatinine 1.8 SCr 1.62 3. H/o DVT, right upper extremity Eliquis and ASA on hold for possible surgical intervention Pt on Heparin drip per protocol VS, I&O, 24H, Fishbone Vital Signs/I&O Vital Signs Date Time Temp Pulse Resp B/P (MAP) Pulse Ox O2 Delivery O2 Flow Rate FiO2 11/01/18 14:00 98.2 62 20 96 11/01/18 09:56 170/92 10/29/18 23:10 Room Air I&O- Last 24 Hours up to 6 AM 11/01/18 06:00 Intake Total 2686 ml Output Total 5125 ml Balance -2439 ml Laboratory Data 24H LABS Laboratory Tests 2 10/31/18 16:49: Bedside Glucose (Misc Panel) 123H 10/31/18 20:31: Bedside Glucose (Misc Panel) 187H 10/31/18 21:01: Vancomycin Level Trough 14.9 11/01/18 05:36: Nucleated Red Blood Cells % (auto) 0.0, Activated Partial Thromboplast Time 60.9H, Anion Gap 5L, Glomerular Filtration Rate 46.8L, Blood Urea Nitrogen 16, Creatinine 1.62H, Sodium Level 141, Potassium Level 4.2, Chloride Level 108H, Carbon Dioxide Level 28, Calcium Level 8.9 11/01/18 11:38: Bedside Glucose (Misc Panel) 162H 11/01/18 12:59: Activated Partial Thromboplast Time 84.9H CBC/BMP Laboratory Tests 11/01/18 05:36 Red Blood Count 5.60, Mean Corpuscular Volume 77.3 L, Mean Corpuscular Hemoglobin 23.4 L, Mean Corpuscular Hemoglobin Concent 30.3 L, Red Cell Distribution Width 17.8 H, Calcium Level 8.9 Microbiology Microbiology 10/29/18 Blood Culture - Preliminary, Resulted No Growth after 48 hours. All Specime... 10/29/18 Blood Culture - Preliminary, Resulted No Growth after 48 hours. All Specime... 10/31/18 Stool Occult Blood (ANTOINE) - Final, Complete 10/29/18 Gram Stain - Final, Complete 10/29/18 Wound Culture - Final, Complete Enterobacter Cloacae Complex Strep Agalactiae Group B Samara Nagel Nov 01, 2018 15:32
[2018-11-01 22:00] VITALS: BP 140/90
[2018-11-01] MEDS: AMITRIPTYLINE 25 MG TAB PO SCH (22:05)
[2018-11-01] MEDS: ATORVASTATIN 10 MG TAB PO SCH (22:05)
[2018-11-01] MEDS: CETIRIZINE (ZyrTEC) 10 MG TAB PO SCH (22:07)
[2018-11-02] MEDS: PIPERACILLIN/TAZOBACTAM SOD 4.5 GM in D5W MINI-BAG PLUS 50 ML IV SCH ×4 (00:10→23:52)
--- NOTE | 2018-11-02 02:22 | CR ---
DATE OF CONSULTATION: 10/29/2018 Asked to consult by hospitalist for evaluation of left lower extremity ulcer with calcaneus osteomyelitis. HISTORY OF PRESENT ILLNESS: Mr. Herrera is a 58-year-old gentleman with a chronic nonhealing wound on the left heel that initially occurred after he stepped on a piece of steel in November of 2016 and developed acute osteomyelitis of the calcaneus. At that point it was a polymicrobial infection treated with 6 weeks of intravenous (IV) antibiotic with slow healing. The patient was re-admitted since then multiple times with a persistent infection but at different occasions. He has had different pathogens including methicillin-sensitive Staphylococcus aureus (MSSA), Streptococcus viridans and Prevotella. The patient was admitted again on October 08 for a week and at that point we did not feel he had osteomyelitis. He had a very clean wound. The belief with that he had superficial cellulitis. His C-reactive protein (CRP) and sedimentation rate were normal. He was homeless and a couple weeks he came back with chills, redness and swelling of the heel, worsening drainage. He had been followed up with Dr. Knapp. He had been off antibiotics. His white count was elevated at 13,000. He was started on broad-spectrum IV antibiotics including vancomycin and Zosyn. Vascular ultrasound done on 10/04/2018 showed he had a node that measured 2 x 1.0 cm to by along the calf likely reactive. Foot x-ray showed soft tissue infection along the calcaneus, no plane evidence of osteomyelitis as has osteoarthritis. Next MRI done on 10/04/2018 showed severe cellulitis without organized fluid collection. STUDY DONE DURING THIS ADMISSION: Foot MRI done on 10/29/2018 showed MRI of the left foot with and without IV contrast soft tissue swelling dorsal mid foot, forefoot, skin defect and ulcer along the hind foot, plantar soft tissue inflammation, ulceration with osteomyelitis along the plantar posterior calcaneus similar to a previous MRI. There is no new drainable abscess collection. PAST MEDICAL HISTORY: Past medical history is significant for morbid obesity, insulin-dependent diabetes, chronic diabetic foot ulcer of the left heel following stepping on a piece of steel with chronic osteomyelitis and recurrent episodes of cellulitis, history of deep vein thrombosis (DVT) of upper extremity where he had a peripherally inserted central catheter (PICC) line, hypertension, hyperlipidemia, abdominal hernia, chronic degenerative disk disease of the cervical spine. PAST SURGICAL HISTORY: Multiple foot debridements, tonsillectomy, hernia repair. SOCIAL HISTORY: He is not . He lives alone in a third floor apartment which has been a problem for him to keep off loading from his heel that he states he walks on his toes. He does not smoke or drink. He has a dog. FAMILY HISTORY: Nonrevealing. ALLERGIES: POVIDONE-IODINE MEDICATIONS: - enalapril 20 mg by mouth twice a day - Percocet 2 tablets by mouth every 4 hours as needed - pantoprazole 40 mg by mouth daily - bupropion 150 mg daily - insulin sliding scale - Zosyn 4.5 grams IV every 8 hours - amitriptyline 25 mg by mouth at bedtime - amlodipine 5 mg by mouth twice a day - atorvastatin 10 mg by mouth at bedtime - Coreg 25 mg by mouth twice a day - cetirizine 5 mg by mouth at bedtime - insulin sliding scale Levemir 60 units subcutaneous twice a day - clotrimazole to feet twice a day - morphine as needed for pain LABORATORY DATA White count on admission was 13.6 down to 10.2 and today was 8.4, hemoglobin 13.1, hematocrit 43.3, platelets 488. Sodium 141, potassium 4.2, chloride 198, bicarbonate 28, BUN 16, creatinine 1.62 down from 2.35, glucose 167, calcium 8.9. Procalcitonin 0.41 and C-reactive protein (CRP) 7.53 which is up from 0.5 last admission. PHYSICAL EXAMINATION: On physical exam he is a healthy looking gentleman in no acute distress laying in bed comfortably. HEART: Normal S1, S2. No murmurs, rubs or gallops. LUNGS: Lungs are clear. No wheezes, rales or rhonchi. ABDOMEN: Morbidly obese with healed infraumbilical scar that is tender to touch. BACK: No cerebrovascular accident (CVA) tenderness or lumbosacral tenderness. EXTREMITIES: Right leg has an amputation of the first toe well healed. No open lesions. No tinea pedis posterior dorsalis pedis left foot has an open ulcer along the calcaneus with erythema of the whole heel, tenderness to touch and cellulitis. There is no upper extremity cellulitis but he has a large lymph node in the inguinal area measuring 2 x 2 cm. Temperature is 98.2, pulse 62, respirations 20, blood pressure 170/92, O2 saturation 96% on room air. The patient has been afebrile throughout this admission. IMPRESSION: This is a 58-year-old gentleman with a history of chronic osteomyelitis of the left foot with superimposed superficial cellulitis. He has been dealing with this chronic problem for the past two years since he stepped on a piece of steel. He does not want to continue that way. There has been discussion for below-knee amputation. Dr. Go has been consulted regarding his vascular anatomy but he has very good pulses. I do not suspect there is significant pathology. The reason for his nonhealing wound is his noncompliance, poorly controlled diabetes and probably stepping on his foot and poor hygiene when he gets home. Every time he has been in the hospital this foot responds very well to treatment. Currently this recent admission looks like group B Streptococcus (GBS) cellulitis was the precipitating factor as he had a very large lymph node and he has significant cellulitis which is new compared to last month. PLAN: Discontinue IV vancomycin. Continue with IV Zosyn. That should cover for Enterobacter and group B Streptococcus (GBS). Will discuss case with Dr. Go. Will review MRI findings with radiology. Will also discussed with Dr. Izaguirre and Dr. Knapp the plan of care.
[2018-11-02] MEDS: HEPARIN DRIP 25,000 UNITS in APPROPRIATE DILUENT 1 EA IV SCH (03:34)
[2018-11-02 06:00] VITALS: BP 124/80
[2018-11-02 06:21] LABS: HEMATOCRIT 43.4 % (42.0-52.0); HEMOGLOBIN 12.9 g/dl (13.5-17.5); MEAN CORPUSCULAR HEMOGLOBIN 23.2 pg (27.0-33.0); MEAN CORPUSCULAR HGB CONC 29.7 g/dl (32.0-36.5); MEAN CORPUSCULAR VOLUME 78.1 fl (80.0-96.0); PLATELET COUNT, AUTOMATED 522 10^3/uL (150-450); RED BLOOD COUNT 5.56 10^6/uL (4.30-6.10); WHITE BLOOD COUNT 7.9 10^3/uL (4.0-10.0)
[2018-11-02 06:49] LABS: C REACTIVE PROTEIN QUANTITATIV 1.28 MG/DL (0.00-0.30); CALCIUM LEVEL 9.7 MG/DL (8.5-10.1); CREATININE FOR GFR 1.61 MG/DL (0.70-1.30); GLOMERULAR FILTRATION RATE 47.2 (>56); POTASSIUM SERUM 5.1 MEQ/L (3.5-5.1)
--- NOTE | 2018-11-02 07:20 | IPNPDOC ---
Date Seen The patient was seen on 11/02/18. Progress Note Subjective Pt c/o pain 8/10 in the left leg with some relief with pain meds with decreased pain to 5/10 described as throbbing and achy. still on iv zosyn. afebrile. on iv heparin gtt for h/o dvt in UE. plans for angioplasty. Objective Physical Examination vitals: pls see below General Exam: Positive: Alert, Cooperative, Mild Distress Eye Exam: Positive: PERRLA, Conjunctiva & lids normal, EOMI; Negative: Sclera icteric, Ptosis ENT Exam: Positive: Atraumatic, Mucous membr. moist/pink, Pharynx Normal, Tongue Midline, Nares Patent; Negative: Pharyngeal Edema Neck Exam: Positive: Supple, +2 carotid pulse wo bruit; Negative: JVD, thyromegaly, Lymphadenopathy Chest Exam: Positive: Clear to auscultation, Normal air movement; Negative: Rales, Rhonchi, Wheezing, Diminished Heart Exam: Positive: Rate Normal, Regular Rhythm, Normal S1, Normal S2; Negative: Gallops, Murmurs, Rubs Abdomen Exam: Positive: BS Hypoactive, Soft, Tenderness (to palpation in the lower abdomen around the healed, clean, dry, intact hernia incision, no appreciable hernia); Negative: Hepatospenomegaly, Mass, Hernia Extremity Exam: Positive: Edema (non-pitting, left lower leg), Normal pulses, Swelling, Other (spreading erythema noted around left heel, circular unstageable wound ulcer on left heel that is 5m in greatest diameter with eschar noted in the base, macerated periwound); Negative: Clubbing, Cyanosis, Tenderness Skin Exam: Positive: Breakdown (as noted above), Lesion (as noted above); Negative: Rash Neuro Exam: Positive: Normal Speech, Cranial Nerves 3-12 NL Psych Exam: Positive: Oriented x 3 laboratory data, imaging studies, microbiology: pls see below. reviewed. Assessment /Plan Mr. Herrera is a 58-year-old male who presents to [facility] Emergency Department with left leg pain. 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 He is being followed at the wound clinic and dr Ivory for his recurring heel and foot wounds for several years. he was admitted here from 06/16/18 to 08/21/18 then from 10/04/18 to 10/13/18 for this ulcer. He had been to his appointment at the wound care center on 10/22/2018 that had a wound VAC in place. However, the wound VAC was not securing correctly and adjustments were made. His wound at that time was debrided, hemostasis was obtained, and the wound was dressed with hydrofera blue heavy drainage and the NPWT was applied. He returned to the wound care center on 10/29/2018 and it was noted that he left leg looked significantly worse with possible signs of lymphangitis and swelling. He was instructed to present to the Emergency Department for further evaluation. The patient states that after his debridement on Thursday his wound continued to bleed. By Thursday he developed cold chills with fever or night sweats. He stayed in bed all day. He describes a burning/stabbing pain in his foot extending up to his thigh since the extensive debridement with associated swelling. He was admitted left foot cellulitis, lymphangitis with chronic left heel ulcer and Janie on CKD. Left heel/leg cellulitis and possible underlying osteomyelitis 2/2 chronic wound ulcer still on iv Zosyn per ID/ s/p Vancomycin, wound culture and gram stain reviewed ID and vascular surgery consulted Procalcitonin reviewed.plans for angioplasty with vascular surgery to improve circulation. Continue Irwin, started Morphine for pain control Wound care: place OptiLock over wound ulcer on left heel, wrap with Kerlex, monitor for drainage PT ordered JANIE on CKD Baseline creatinine 1.8 continue to monitor. ACEI on hold. Abdominal pain resolved. Urinalysis is negative. Abdominal exam benign probably from old hernia repair with mesh hich he thinks sometimes bothers him still. Surgery in 2005 DVT right upper extremity Holding Eliquis and ASA for possible evaluation for surgical intervention; on Heparin drip DM with diabetic neuropathy Levemir 60 units SQ BID (patient is on Levemir 68 units SQ daily and insulin Glargine 48 units SQ QHS) SSI AC/HS, FSBS AC/HS, hypoglycemic protocol 2g sodium + consistent carbohydrate diet Obesity and SARAH Hypertension BP controlled now. ACEI on hold Plan/VTE VTE Prophylaxis Ordered?: Yes (Heparin drip) Plan IVF: Initiate (NS @ 125 mLs/hr) Diet: Continue Current (2g sodium) Activity: Continue Current (activity as tolerated) Therapy: PT Medications: Increase Pain Meds (Morphine 2mg IV Q2HP), Start Antibiotics (s/p Vancomycin 1gm IV, still on Zosyn IV Q8Hn renally dosed by pharmacy) Diagnostics: Check Labs, Repeat Labs in AM, Obtain Cultures (blood, urine), MRI (left foot) Anticipated Discharge: Home With Services VS, I&O, 24H, [facility] Vital Signs/I&O Vital Signs Date Time Temp Pulse Resp B/P (MAP) Pulse Ox O2 Delivery O2 Flow Rate FiO2 11/01/18 22:36 19 11/01/18 22:07 77 140/90 11/01/18 22:00 98.2 94 10/29/18 23:10 Room Air I&O- Last 24 Hours up to 6 AM 11/02/18 06:00 Intake Total 1695 ml Output Total 2950 ml Balance -1255 ml Laboratory Data 24H LABS Laboratory Tests 2 11/01/18 11:38: Bedside Glucose (Misc Panel) 162H 11/01/18 12:59: Activated Partial Thromboplast Time 84.9H 11/01/18 16:37: Bedside Glucose (Misc Panel) 152H 11/01/18 19:02: Activated Partial Thromboplast Time 69.3H 11/01/18 20:03: Bedside Glucose (Misc Panel) 190H 11/02/18 06:06: Nucleated Red Blood Cells % (auto) 0.0 11/02/18 06:07: Activated Partial Thromboplast Time 67.2H, Anion Gap 5L, Glomerular Filtration Rate 47.2L, Blood Urea Nitrogen 17, Creatinine 1.61H, Sodium Level 140, Potassium Level 5.1#, Chloride Level 108H, Carbon Dioxide Level 27, Calcium Level 9.7, C-Reactive Protein, Quantitative 1.28H CBC/BMP Laboratory Tests 11/02/18 06:06 Red Blood Count 5.56, Mean Corpuscular Volume 78.1 L, Mean Corpuscular Hemoglobin 23.2 L, Mean Corpuscular Hemoglobin Concent 29.7 L, Red Cell Distribution Width 18.1 H 11/02/18 06:07 Calcium Level 9.7 Microbiology Microbiology 10/29/18 Blood Culture - Preliminary, Resulted No Growth after 72 hours. All specime... 10/29/18 Blood Culture - Preliminary, Resulted No Growth after 72 hours. All specime... 10/31/18 Stool Occult Blood (ANTOINE) - Final, Complete 10/29/18 Gram Stain - Final, Complete 10/29/18 Wound Culture - Final, Complete Enterobacter Cloacae Complex Strep Agalactiae Group B DIPIKA ESPINOSA MD Nov 02, 2018 07:19
[2018-11-02] MEDS: HumaLOG INSULIN (NovoLOG) PER UNIT SC SCH ×4 (07:29→21:00)
[2018-11-02] MEDS ORDERED: BUPIVACAINE HCL 0.5% 10 ML VIAL As Ordered ONE (09:06)
[2018-11-02] MEDS ORDERED: MIDAZOLAM INJ 2 MG/2 ML VIAL (J2250) As Ordered ONE (09:06)
[2018-11-02] MEDS ORDERED: diphenhydrAMINE INJ 50MG/ML VIAL (J1200) As Ordered ONE ×2 (09:06→13:10)
[2018-11-02] MEDS ORDERED: fentaNYL 100 MCG/2 ML INJECTION (J3010) As Ordered ONE (09:06)
[2018-11-02] MEDS ORDERED: LIDOCAINE 1% MDV 20ML VIAL As Ordered ONE (09:07)
[2018-11-02] MEDS ORDERED: LIDOCAINE 2% MDV 20 ML VIAL As Ordered ONE ×2 (09:07→10:54)
[2018-11-02] MEDS ORDERED: ISOVUE-300 61% 50ML VIAL (Q9967) As Ordered ONE (09:07)
[2018-11-02] MEDS: LEVEMIR (INSULIN DETEMIR) 1 UNITS/0.01ML SC SCH ×2 (09:10→22:08)
[2018-11-02] MEDS: buPROPion **XL** TABLET 150MG (WELLBUTRIN XL) PO SCH (09:10)
[2018-11-02] MEDS: PANTOPRAZOLE 40MG TAB (PROTONIX) PO SCH (09:10)
[2018-11-02] MEDS: ENALAPRIL MALEATE 10 MG TAB PO SCH ×2 (09:11→22:07)
[2018-11-02] MEDS: amLODIPine 5 MG TAB PO SCH ×2 (09:11→22:06)
[2018-11-02] MEDS: CARVedilol 12.5 MG TAB PO SCH ×2 (09:11→22:07)
[2018-11-02] MEDS: PERCOCET 5MG/325MG TAB PO PRN ×4 (09:12→22:19)
[2018-11-02] MEDS ORDERED: HEPARIN 25,000 UNITS/250 ML D5W BAG (100 UNITS/ML) As Ordered ONE (12:42)
[2018-11-02 14:22] VITALS: BP 140/82
[2018-11-02] MEDS ORDERED: SODIUM CHLORIDE 0.9% INJ 10 ML SYR IV PRN (14:45)
--- NOTE | 2018-11-02 17:01 | CR ---
DATE OF CONSULTATION: 11/02/2018 REASON FOR CONSULTATION: Left heel ulceration. Jovanny Herrera is a pleasant 58-year-old male, well known to me who was admitted due to infectious cellulitis of his left lower extremity. He had been following up with Dr. Knapp. He had a wound VAC placement. However, over the last week, felt like it became erythematous and infected, and he was sent to the emergency room for admission. This has been an ongoing issue over the last several years, stemming from an initial injury where he stepped on a nail that went into the bone of his left calcaneus. He has undergone numerous debridements, antibiotics, wound care, all without significant improvement. This is partly due to the fact that the patient is unable to maintain non-weightbearing status to this location. He had an angiogram today with Dr. Go. PAST MEDICAL HISTORY: Significant for diabetes, hypertension, gastroesophageal reflux disease (GERD), deep vein thrombosis (DVT), sleep apnea, chronic heel ulceration. ALLERGIES: Include BETADINE and SOAP. SOCIAL HISTORY: Former smoker. REVIEW OF SYSTEMS: He has been afebrile since admission. LABORATORY: Labs are reviewed. White blood cell count was 13.6, today it is 7.9. ESR was 4, CRP is 1.28. Foot imaging studies are reviewed. No further erosive changes to the calcaneus or spread other than the calcaneus. No other bones appear involved. On the x-ray, there is new planer prominence noted from compared to 2 years ago. LOWER EXTREMITY EXAMINATION: Edematous left foot, wound base generally granular; however, it does probe to bone. ASSESSMENT: A 58-year-old male with chronic osteomyelitis and heel ulceration. PLAN: Discussed options with the patient including further wound debridement, heel calcaneus resection, as well as below-knee amputation. Did discuss that due to recurrent nature, there is no guarantee that further debridements or removal of bone can guarantee that he will heal or his wound will resolve. Unfortunately, due to location, major resection of the calcaneus would not lead to a functional foot, which would ultimately lead to further breakdown and inability to ambulate. Case discussed with Dr. Go and in the past with Dr. Knapp who both have suggested that he has poor chances of healing the heel wound and may be best served with below-knee amputation. Patient at this time wishes to proceed with below-knee amputation. Dr. Go is aware and will further discuss with patient.
[2018-11-02] MEDS: SODIUM CHLORIDE 0.9% INJ 10 ML SYR IV SCH (18:22)
[2018-11-02 22:00] VITALS: BP 138/76
[2018-11-02] MEDS: AMITRIPTYLINE 25 MG TAB PO SCH (22:07)
[2018-11-02] MEDS: CETIRIZINE (ZyrTEC) 10 MG TAB PO SCH (22:07)
[2018-11-02] MEDS: ATORVASTATIN 10 MG TAB PO SCH (22:08)
--- NOTE | 2018-11-02 22:56 | IPN ---
DATE: 11/02/2018 INFECTIOUS DISEASE PROGRESS NOTE Mr. Herrera feels better today. He states the erythema and pain in his foot have improved, but he has discussed with Dr. Izaguirre and Dr. Go pursuing below-knee amputation. The patient has had a chronic left foot heel wound for the past 2 years and due to noncompliance and obesity, poorly controlled diabetes, the heel did not heal. The patient was admitted with left lower extremity cellulitis with group B strep. He has improved on intravenous (IV) Zosyn, but he still wants to pursue with below-knee amputation. On physical exam, temperature is 97.8, pulse 65, respirations 18, blood pressure 140/82, oxygen saturation (O2 sat) 94% on room air. Heart: Normal S1, S2. No murmurs. Lungs are clear. No wheezes, rales or rhonchi. Abdomen: Morbidly obese, soft, nontender. Extremities: Right lower extremity no edema, no erythema. Left foot with the heel erythema all the way to the ankle with mild tenderness, +1 pitting edema and ulcer measuring 2 x 2 cm with mild serosanguineous drainage. LABORATORY DATA: White count 7.8, hemoglobin 12.9, hematocrit 43.4, platelet 522. Sodium 140, potassium 5.1, chloride 108, bicarbonate 27, BUN 17, creatinine 1.61, glucose 145, calcium 9.7, CRP 1.28 down from 7.53. Wound culture was positive for group B strep and Enterobacter cloacae. IMPRESSION: 1. Chronic osteomyelitis of the left foot with superimposed cellulitis from group B strep. The patient was offered further debridement of the calcaneus, partial calcaneus removal or below-knee amputation. Due to the chronicity of his illness, he opted towards below-knee amputation. The case has been discussed with Dr. Izaguirre and Dr. Go. 2. Insulin-dependent diabetes, poorly controlled with HbA1c of 10. PLAN: Continue IV Zosyn. The patient is to be added to the schedule with Dr. Go for below-knee amputation in the next couple of days. Continue with postop antibiotics for 5 days.
[2018-11-03] MEDS: HEPARIN DRIP 25,000 UNITS in APPROPRIATE DILUENT 1 EA IV SCH ×4 (00:09→23:36)
[2018-11-03] MEDS: PERCOCET 5MG/325MG TAB PO PRN ×5 (02:52→22:20)
[2018-11-03] MEDS: SODIUM CHLORIDE 0.9% INJ 10 ML SYR IV SCH ×2 (05:53→18:06)
[2018-11-03 05:58] LABS: HEMATOCRIT 43.3 % (42.0-52.0); HEMOGLOBIN 13.1 g/dl (13.5-17.5); MEAN CORPUSCULAR HEMOGLOBIN 23.5 pg (27.0-33.0); MEAN CORPUSCULAR HGB CONC 30.3 g/dl (32.0-36.5); MEAN CORPUSCULAR VOLUME 77.7 fl (80.0-96.0); PLATELET COUNT, AUTOMATED 479 10^3/uL (150-450); RED BLOOD COUNT 5.57 10^6/uL (4.30-6.10); WHITE BLOOD COUNT 8.3 10^3/uL (4.0-10.0)
[2018-11-03 06:00] VITALS: BP 132/80
[2018-11-03 06:23] LABS: CREATININE FOR GFR 1.72 MG/DL (0.70-1.30); GLOMERULAR FILTRATION RATE 43.7 (>56); POTASSIUM SERUM 4.3 MEQ/L (3.5-5.1)
[2018-11-03] MEDS: HumaLOG INSULIN (NovoLOG) PER UNIT SC SCH ×4 (08:59→21:00)
[2018-11-03] MEDS: PANTOPRAZOLE 40MG TAB (PROTONIX) PO SCH (08:59)
[2018-11-03] MEDS: PIPERACILLIN/TAZOBACTAM SOD 4.5 GM in D5W MINI-BAG PLUS 50 ML IV SCH ×3 (08:59→23:38)
[2018-11-03] MEDS: buPROPion **XL** TABLET 150MG (WELLBUTRIN XL) PO SCH (08:59)
[2018-11-03] MEDS: amLODIPine 5 MG TAB PO SCH ×2 (09:00→21:19)
[2018-11-03] MEDS: CARVedilol 12.5 MG TAB PO SCH ×2 (09:00→21:19)
[2018-11-03] MEDS: ENALAPRIL MALEATE 10 MG TAB PO SCH ×2 (09:00→21:18)
[2018-11-03] MEDS: LEVEMIR (INSULIN DETEMIR) 1 UNITS/0.01ML SC SCH ×2 (09:01→21:19)
--- NOTE | 2018-11-03 10:41 | IPNPDOC ---
Date Seen The patient was seen on 11/03/18. Progress Note Vascular Surgery Dr Go. HPI: 58year oldM with a past medical history significant for non healing wound LLE, chronic recurrent left heel ulcer and osteomyelitis. Vascular surgery consulted re non healing wound. Denies any fevers, chills, weakness, fatigue, Headache, Chest Pain, Shortness of breath, cough, palpitations, abdominal pain, N/V/D or changes in bowel or bladder habits. Medical History 1. HTN 2. DM 3. GERD 4. DVT 5. DLP 6. SARAH 7. Osteomyelitis 8. Chronic wound ulcer, left heel 9. Depression 10. Allergies Surgical History 1. Tonsillectomy 2. Hernia repair x2 3. Left foot I&D x5 4. Right hallux amputation 5. Right total knee replacement PE: GEN: 58yoM, appears stated age. No acute distress. HEENT: Normocephalic, atraumatic. Sclera are nonicteric. Conjunctiva without injection. Moist mucous membranes. CHEST: Regular rate and rhythm, +S1, +S2 LUNGS: Clear to auscultation bilaterally. No wheezes, rales, or rhonchi. ABD: Round, soft, non-tender, non-distended. +Bowel sounds throughout. No rebound or guarding. EXT: Left foot with bandage intact. NEURO: Alert and oriented x 3. No focal deficits appreciated. A&P: 58year oldM with a past medical history significant for non healing wound LLE, chronic recurrent left heel ulcer and osteomyelitis. Vascular surgery consulted re non healing wound. 1. Chronic recurrent left heel wound ulcer with osteomyelitis Vancomycin and Zosyn per primary team. ID following Wound culture on 10/29/2018: Enterobacter Cloacae Complex and Strep Agalactiae Group B Angiogram 11/02/[address] Go with no intervention. small vessel disease noted of the foot. Dr Go has discussed with Dr Izaguirre, Dr Knapp, Dr Ivory with tentative plan for Lt BKA. 2. chronic kidney disease Baseline creatinine 1.8 SCr 1.72 3. H/o DVT, right upper extremity Eliquis and ASA on hold for possible surgical intervention Pt on Heparin drip per protocol VS, I&O, 24H, Fishbone Vital Signs/I&O Vital Signs Date Time Temp Pulse Resp B/P (MAP) Pulse Ox O2 Delivery O2 Flow Rate FiO2 11/03/18 09:07 18 11/03/18 09:00 132/80 11/03/18 09:00 63 11/03/18 06:00 97.4 91 10/29/18 23:10 Room Air I&O- Last 24 Hours up to 6 AM 11/03/18 06:00 Intake Total 2590 ml Output Total 2775 ml Balance -185 ml Laboratory Data 24H LABS Laboratory Tests 2 11/02/18 13:47: Bedside Glucose (Misc Panel) 112H 11/02/18 16:42: Bedside Glucose (Misc Panel) 160H 11/02/18 20:07: Bedside Glucose (Misc Panel) 135H 11/03/18 05:37: Nucleated Red Blood Cells % (auto) 0.0, Activated Partial Thromboplast Time 89.7H, Anion Gap 7L, Glomerular Filtration Rate 43.7L, Blood Urea Nitrogen 22H, Creatinine 1.72H, Sodium Level 141, Potassium Level 4.3, Chloride Level 106, Carbon Dioxide Level 28, Calcium Level 10.0 11/03/18 09:34: CBC/BMP Laboratory Tests 11/03/18 05:37 Red Blood Count 5.57, Mean Corpuscular Volume 77.7 L, Mean Corpuscular Hemoglobin 23.5 L, Mean Corpuscular Hemoglobin Concent 30.3 L, Red Cell Distribution Width 18.2 H, Calcium Level 10.0 Microbiology Microbiology 10/29/18 Blood Culture - Preliminary, Resulted No Growth after 72 hours. All specime... 10/29/18 Blood Culture - Preliminary, Resulted No Growth after 72 hours. All specime... 11/02/18 Stool Occult Blood (ANTOINE), Received Pending 10/31/18 Stool Occult Blood (ANTOINE) - Final, Complete 10/29/18 Gram Stain - Final, Complete 10/29/18 Wound Culture - Final, Complete Enterobacter Cloacae Complex Strep Agalactiae Group B Samara Nagel Nov 03, 2018 10:41
--- NOTE | 2018-11-03 12:08 | IPNPDOC ---
Date Seen The patient was seen on 11/03/18. Progress Note Subjective Pt STILL c/o pain 8/10 in the left leg with some relief with pain meds with decreased pain to 5/10 described as throbbing and achy. still on iv zosyn. afebrile. on iv heparin gtt for h/o dvt in UE. plans for BKA with Dr. Go and to continue 5 days abx postop Objective Physical Examination vitals: pls see below General Exam: Positive: Alert, Cooperative, Mild Distress Eye Exam: Positive: PERRLA, Conjunctiva & lids normal, EOMI; Negative: Sclera icteric, Ptosis ENT Exam: Positive: Atraumatic, Mucous membr. moist/pink, Pharynx Normal, Tongue Midline, Nares Patent; Negative: Pharyngeal Edema Neck Exam: Positive: Supple, +2 carotid pulse wo bruit; Negative: JVD, thyromegaly, Lymphadenopathy Chest Exam: Positive: Clear to auscultation, Normal air movement; Negative: Rales, Rhonchi, Wheezing, Diminished Heart Exam: Positive: Rate Normal, Regular Rhythm, Normal S1, Normal S2; Negative: Gallops, Murmurs, Rubs Abdomen Exam: Positive: BS Hypoactive, Soft, Tenderness (to palpation in the lower abdomen around the healed, clean, dry, intact hernia incision, no ap preciable hernia); Negative: Hepatospenomegaly, Mass, Hernia Extremity Exam: Positive: Edema (non-pitting, left lower leg), Normal pulses, Swelling, Other (spreading erythema noted around left heel, circular unstageable wound ulcer on left heel that is 5m in greatest diameter with eschar noted in the base, macerated periwound); Negative: Clubbing, Cyanosis, Tenderness Skin Exam: Positive: Breakdown (as noted above), Lesion (as noted above); Negative: Rash Neuro Exam: Positive: Normal Speech, Cranial Nerves 3-12 NL Psych Exam: Positive: Oriented x 3 laboratory data, imaging studies, microbiology: pls see below. reviewed. Assessment /Plan Mr. Herrera is a 58-year-old male who presents to [facility]'s Emergency Department with left leg pain. 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 He is being followed at the wound clinic and dr Ivory for his recurring heel and foot wounds for several years. he was admitted here from 06/16/18 to 08/21/18 then from 10/04/18 to 10/13/18 for this ulcer. He had been to his appointment at the wound care center on 10/22/2018 that had a wound VAC in place. However, the wound VAC was not securing correctly and adjustments were made. His wound at that time was debrided, hemostasis was obtained, and the wound was dressed with hydrofera blue heavy drainage and the NPWT was applied. He returned to the wound care center on 10/29/2018 and it was noted that he left leg looked significantly worse with possible signs of lymphangitis and swelling. He was instructed to present to the Emergency Department for further evaluation. The patient states that after his debridement on Thursday his wound continued to bleed. By Thursday he developed cold chills with fever or night sweats. He stayed in bed all day. He describes a burning/stabbing pain in his foot extending up to his thigh since the extensive debridement with associated swelling. He was admitted left foot cellulitis, lymphangitis with chronic left heel ulcer and Janie on CKD. Left heel/leg cellulitis and possible underlying osteomyelitis 2/2 chronic wound ulcer still on iv Zosyn per ID/ s/p Vancomycin, wound culture and gram stain reviewed ID and vascular surgery consulted Procalcitonin reviewed.plans for angioplasty with vascular surgery to improve circulation. Continue Purcell, started Morphine for pain control Wound care: place OptiLock over wound ulcer on left heel, wrap with Kerlex, monitor for drainage PT ordered JANIE on CKD Baseline creatinine 1.8 continue to monitor. ACEI on hold. Abdominal pain resolved. Urinalysis is negative. Abdominal exam benign probably from old hernia repair with mesh hich he thinks sometimes bothers him still. Surgery in 2005 DVT right upper extremity Holding Eliquis and ASA for possible evaluation for surgical intervention; on Heparin drip DM with diabetic neuropathy Levemir 60 units SQ BID (patient is on Levemir 68 units SQ daily and insulin Glargine 48 units SQ QHS) SSI AC/HS, FSBS AC/HS, hypoglycemic protocol 2g sodium + consistent carbohydrate diet Obesity and SARAH Hypertension BP controlled now. ACEI on hold Plan/VTE VTE Prophylaxis Ordered?: Yes (Heparin drip) Plan IVF: Initiate (NS @ 125 mLs/hr) Diet: Continue Current (2g sodium) Activity: Continue Current (activity as tolerated) Therapy: PT Medications: Increase Pain Meds (Morphine 2mg IV Q2HP), Start Antibiotics (s/p Vancomycin 1gm IV, still on Zosyn IV Q8Hn renally dosed by pharmacy) Diagnostics: Check Labs, Repeat Labs in AM, Obtain Cultures (blood, urine), MRI (left foot) Anticipated Discharge: Home With Services VS, I&O, 24H, [facility] Vital Signs/I&O Vital Signs Date Time Temp Pulse Resp B/P (MAP) Pulse Ox O2 Delivery O2 Flow Rate FiO2 11/03/18 03:30 18 11/02/18 22:07 140/82 11/02/18 22:07 65 11/02/18 22:00 97.9 96 10/29/18 23:10 Room Air I&O- Last 24 Hours up to 6 AM 11/03/18 06:00 Intake Total 2590 ml Output Total 2450 ml Balance 140 ml Laboratory Data 24H LABS Laboratory Tests 2 11/02/18 13:47: Bedside Glucose (Misc Panel) 112H 11/02/18 16:42: Bedside Glucose (Misc Panel) 160H 11/02/18 20:07: Bedside Glucose (Misc Panel) 135H 11/03/18 05:37: Nucleated Red Blood Cells % (auto) 0.0, Activated Partial Thromboplast Time 89.7H, Anion Gap 7L, Glomerular Filtration Rate 43.7L, Blood Urea Nitrogen 22H, Creatinine 1.72H, Sodium Level 141, Potassium Level 4.3, Chloride Level 106, Carbon Dioxide Level 28, Calcium Level 10.0 CBC/BMP Laboratory Tests 11/03/18 05:37 Red Blood Count 5.57, Mean Corpuscular Volume 77.7 L, Mean Corpuscular Hemoglobin 23.5 L, Mean Corpuscular Hemoglobin Concent 30.3 L, Red Cell Distribution Width 18.2 H, Calcium Level 10.0 Microbiology Microbiology 10/29/18 Blood Culture - Preliminary, Resulted No Growth after 72 hours. All specime... 10/29/18 Blood Culture - Preliminary, Resulted No Growth after 72 hours. All specime... 10/31/18 Stool Occult Blood (ANTOINE) - Final, Complete 10/29/18 Gram Stain - Final, Complete 10/29/18 Wound Culture - Final, Complete Enterobacter Cloacae Complex Strep Agalactiae Group B DIPIKA ESPINOSA MD Nov 03, 2018 07:05
[2018-11-03 14:00] VITALS: BP 130/90
[2018-11-03] MEDS: AMITRIPTYLINE 25 MG TAB PO SCH (21:19)
[2018-11-03] MEDS: ATORVASTATIN 10 MG TAB PO SCH (21:19)
[2018-11-03] MEDS: CETIRIZINE (ZyrTEC) 10 MG TAB PO SCH (21:19)
[2018-11-03 22:00] VITALS: BP 138/76
[2018-11-04] VITALS (10 sets, daily range): BP systolic 130–216; BP diastolic 70–116
[2018-11-04] MEDS: PERCOCET 5MG/325MG TAB PO PRN ×5 (02:26→21:03)
[2018-11-04] MEDS: SODIUM CHLORIDE 0.9% INJ 10 ML SYR IV SCH ×2 (05:42→16:52)
[2018-11-04 06:18] LABS: HEMATOCRIT 43.4 % (42.0-52.0); HEMOGLOBIN 12.9 g/dl (13.5-17.5); MEAN CORPUSCULAR HGB CONC 29.7 g/dl (32.0-36.5); MEAN CORPUSCULAR VOLUME 77.5 fl (80.0-96.0); PLATELET COUNT, AUTOMATED 479 10^3/uL (150-450); WHITE BLOOD COUNT 6.9 10^3/uL (4.0-10.0)
[2018-11-04 06:48] LABS: CALCIUM LEVEL 9.4 MG/DL (8.5-10.1); CREATININE FOR GFR 1.75 MG/DL (0.70-1.30); GLOMERULAR FILTRATION RATE 42.8 (>56); POTASSIUM SERUM 4.4 MEQ/L (3.5-5.1)
[2018-11-04] MEDS: HEPARIN DRIP 25,000 UNITS in APPROPRIATE DILUENT 1 EA IV SCH ×3 (08:09→16:48)
[2018-11-04] MEDS: ENALAPRIL MALEATE 10 MG TAB PO SCH ×2 (08:23→21:01)
[2018-11-04] MEDS: PANTOPRAZOLE 40MG TAB (PROTONIX) PO SCH (08:23)
[2018-11-04] MEDS: CARVedilol 12.5 MG TAB PO SCH ×2 (08:23→16:51)
[2018-11-04] MEDS: HumaLOG INSULIN (NovoLOG) PER UNIT SC SCH ×4 (08:24→21:00)
[2018-11-04] MEDS: buPROPion **XL** TABLET 150MG (WELLBUTRIN XL) PO SCH (08:24)
[2018-11-04] MEDS: PIPERACILLIN/TAZOBACTAM SOD 4.5 GM in D5W MINI-BAG PLUS 50 ML IV SCH ×2 (08:24→16:49)
[2018-11-04] MEDS: amLODIPine 5 MG TAB PO SCH ×2 (08:24→16:51)
[2018-11-04] MEDS: LEVEMIR (INSULIN DETEMIR) 1 UNITS/0.01ML SC SCH ×2 (08:25→21:02)
[2018-11-04 08:32] LABS: HEMOGLOBIN A1c 10.2 %
--- NOTE | 2018-11-04 09:41 | IPNPDOC ---
Date Seen The patient was seen on 11/04/18. Progress Note Vascular Surgery Dr Go. HPI: 58year oldM with a past medical history significant for non healing wound LLE, chronic recurrent left heel ulcer and osteomyelitis. Vascular surgery consulted re non healing wound. Denies any fevers, chills, weakness, fatigue, Headache, Chest Pain, Shortness of breath, cough, palpitations, abdominal pain, N/V/D or changes in bowel or bladder habits. Medical History 1. HTN 2. DM 3. GERD 4. DVT 5. DLP 6. SARAH 7. Osteomyelitis 8. Chronic wound ulcer, left heel 9. Depression 10. Allergies Surgical History 1. Tonsillectomy 2. Hernia repair x2 3. Left foot I&D x5 4. Right hallux amputation 5. Right total knee replacement PE: GEN: 58yoM, appears stated age. No acute distress. HEENT: Normocephalic, atraumatic. Sclera are nonicteric. Conjunctiva without injection. Moist mucous membranes. CHEST: Regular rate and rhythm, +S1, +S2 LUNGS: Clear to auscultation bilaterally. No wheezes, rales, or rhonchi. ABD: Round, soft, non-tender, non-distended. EXT: Left foot with bandage intact. NEURO: Alert and oriented x 3. No focal deficits appreciated. A&P: 58year oldM with a past medical history significant for non healing wound LLE, chronic recurrent left heel ulcer and osteomyelitis. Vascular surgery consulted re non healing wound. 1. Chronic recurrent left heel wound ulcer with osteomyelitis Vancomycin and Zosyn per primary team. ID following Wound culture on 10/29/2018: Enterobacter Cloacae Complex and Strep Agalactiae Group B Angiogram 11/02/[address] Go with no intervention. small vessel disease noted of the foot. Dr Go has discussed with Dr Izaguirre, Dr Knapp, Dr Ivory with tentative plan for Lt BKA 11/05/18. 2. chronic kidney disease Baseline creatinine 1.8 SCr 1.75 3. H/o DVT, right upper extremity Eliquis and ASA on hold for possible surgical intervention Pt on Heparin drip per protocol VS, I&O, 24H, Fishbone Vital Signs/I&O Vital Signs Date Time Temp Pulse Resp B/P (MAP) Pulse Ox O2 Delivery O2 Flow Rate FiO2 11/04/18 08:36 16 11/04/18 08:23 72 141/82 11/04/18 06:05 97.9 95 10/29/18 23:10 Room Air I&O- Last 24 Hours up to 6 AM 11/04/18 06:00 Intake Total 2830 ml Output Total 4750 ml Balance -1920 ml Laboratory Data 24H LABS Laboratory Tests 2 11/03/18 12:11: Bedside Glucose (Misc Panel) 93 11/03/18 15:23: Bedside Glucose (Misc Panel) 118H 11/03/18 16:27: Bedside Glucose (Misc Panel) 160H 11/03/18 20:52: Bedside Glucose (Misc Panel) 227H 11/04/18 06:01: Estimated Mean Plasma Glucose 246H, Hemoglobin A1c 10.2 11/04/18 06:04: Nucleated Red Blood Cells % (auto) 0.0, Activated Partial Thromboplast Time 110.2H, Anion Gap 5L, Glomerular Filtration Rate 42.8L, Blood Urea Nitrogen 22H, Creatinine 1.75H, Sodium Level 139, Potassium Level 4.4, Chloride Level 106, Carbon Dioxide Level 28, Calcium Level 9.4 CBC/BMP Laboratory Tests 11/04/18 06:04 Red Blood Count 5.60, Mean Corpuscular Volume 77.5 L, Mean Corpuscular Hemoglobin 23.0 L, Mean Corpuscular Hemoglobin Concent 29.7 L, Red Cell Distribution Width 18.0 H, Calcium Level 9.4 Microbiology Microbiology 10/29/18 Blood Culture - Final, Complete NO GROWTH AFTER 5 DAYS 10/29/18 Blood Culture - Final, Complete NO GROWTH AFTER 5 DAYS 11/02/18 Stool Occult Blood (ANTOINE) - Final, Complete 10/31/18 Stool Occult Blood (ANTOINE) - Final, Complete 10/29/18 Gram Stain - Final, Complete 10/29/18 Wound Culture - Final, Complete Enterobacter Cloacae Complex Strep Agalactiae Group B Samara Nagel Nov 04, 2018 09:41
--- NOTE | 2018-11-04 10:31 | IPNPDOC ---
Date Seen The patient was seen on 11/04/18. Progress Note Subjective: Pt requests increasing carbohydrates in his diet. "It's just not enough for me. I need more bread. I'm a big yu, you know." Pt STILL c/o pain 8/10 in the left leg with some relief with pain meds with decreased pain to 5/10 described as throbbing and achy. still on iv zosyn. afebrile. on iv heparin gtt for h/o dvt in UE. plans for BKA with Dr. Go and to continue 5 days abx postop. "I'm not going home until this leg is all healed up from the amputation. I'm okay with that so long as I have a prosthesis, and maybe an electric wheelchair. I need handicap housing. My place won't work once I get surgery. " Objective Physical Examination vitals: pls see below General Exam: Positive: Alert, Cooperative, Mild Distress Eye Exam: Positive: PERRLA, Conjunctiva & lids normal, EOMI; Negative: Sclera icteric, Ptosis ENT Exam: Positive: Atraumatic, Mucous membr. moist/pink, Pharynx Normal, Tongue Midline, Nares Patent; Negative: Pharyngeal Edema Neck Exam: Positive: Supple, +2 carotid pulse wo bruit; Negative: JVD, thyromegaly, Lymphadenopathy Chest Exam: Positive: Clear to auscultation, Normal air movement; Negative: Rales, Rhonchi, Wheezing, Diminished Heart Exam: Positive: Rate Normal, Regular Rhythm, Normal S1, Normal S2; Negative: Gallops, Murmurs, Rubs Abdomen Exam: Positive: BS Hypoactive, Soft, Tenderness (to palpation in the lower abdomen around the healed, clean, dry, intact hernia incision, no appreciable hernia); Negative: Hepatospenomegaly, Mass, Hernia Extremity Exam: Positive: Edema (non-pitting, left lower leg), Normal pulses, Swelling, Other (spreading erythema noted around left heel, circular unstageable wound ulcer on left heel that is 5m in greatest diameter with eschar noted in the base, macerated periwound); Negative: Clubbing, Cyanosis, Tenderness Skin Exam: Positive: Breakdown (as noted above), Lesion (as noted above); Negative: Rash Neuro Exam: Positive: Normal Speech, Cranial Nerves 3-12 NL Psych Exam: Positive: Oriented x 3 laboratory data, imaging studies, microbiology: pls see below. reviewed. Assessment /Plan Mr. Herrera is a 58-year-old male who presents to [facility]'s Emergency Department with left leg pain. 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 He is being followed at the wound clinic and dr Ivory for his recurring heel and foot wounds for several years. he was admitted here from 06/16/18 to 08/21/18 then from 10/04/18 to 10/13/18 for this ulcer. He had been to his appointment at the wound care center on 10/22/2018 that had a wound VAC in place. However, the wound VAC was not securing correctly and adjustments were made. His wound at that time was debrided, hemostasis was obtained, and the wound was dressed with hydrofera blue heavy drainage and the NPWT was applied. He returned to the [facility] on 10/29/2018 and it was noted that he left leg looked significantly worse with possible signs of lymphangitis and swelling. He was instructed to present to the Emergency Department for further evaluation. The patient states that after his debridement on Thursday his wound continued to bleed. By Thursday he developed cold chills with fever or night sweats. He stayed in bed all day. He describes a burning/stabbing pain in his foot extending up to his thigh since the extensive debridement with associated swelling. He was admitted left foot cellulitis, lymphangitis with chronic left heel ulcer and Janie on CKD. Left heel/leg cellulitis and possible underlying osteomyelitis 2/2 chronic wound ulcer still on iv Zosyn per ID/ s/p Vancomycin, wound culture and gram stain reviewed ID and vascular surgery consulted Procalcitonin reviewed.plans for angioplasty with vascular surgery to improve circulation. Continue Parmele, started Morphine for pain control Wound care: place OptiLock over wound ulcer on left heel, wrap with Kerlex, monitor for drainage PT ordered plans for BKA with Dr. Go and to continue 5 days abx postop. "I'm not going home until this leg is all healed up from the amputation. I'm okay with that so long as I have a prosthesis, and maybe an electric wheelchair. I need handicap housing. My place won't work once I get surgery. " JANIE on CKD Baseline creatinine 1.8 continue to monitor. ACEI on hold. Abdominal pain resolved. Urinalysis is negative. Abdominal exam benign probably from old hernia repair with mesh hich he thinks sometimes bothers him still. Surgery in 2005 DVT right upper extremity Holding Eliquis and ASA for possible evaluation for surgical intervention; on Heparin drip DM with diabetic neuropathy Levemir 60 units SQ BID (patient is on Levemir 68 units SQ daily and insulin Glargine 48 units SQ QHS) SSI AC/HS, FSBS AC/HS, hypoglycemic protocol 2g sodium + consistent carbohydrate diet Pt requests increasing carbohydrates in his diet. "It's just not enough for me. I need more bread. I'm a big yu, you know." asp net developer consulted for calorie count and diet recommendations BMI 38.1 Obesity Pt requests increasing carbohydrates in his diet. "It's just not enough for me. I need more bread. I'm a big yu, you know." asp net developer consulted for calorie count and diet recommendations SARAH home cpap Hypertension BP controlled now. ACEI on hold Plan/VTE VTE Prophylaxis Ordered?: Yes (Heparin drip) disposition: will need handicap housing. pfs consutled. VS, I&O, 24H, [place] Vital Signs/I&O Vital Signs Date Time Temp Pulse Resp B/P (MAP) Pulse Ox O2 Delivery O2 Flow Rate FiO2 11/04/18 08:36 16 11/04/18 08:23 72 141/82 11/04/18 06:05 97.9 95 10/29/18 23:10 Room Air I&O- Last 24 Hours up to 6 AM 11/04/18 06:00 Intake Total 2830 ml Output Total 4750 ml Balance -1920 ml Laboratory Data 24H LABS Laboratory Tests 2 11/03/18 12:11: Bedside Glucose (Misc Panel) 93 11/03/18 15:23: Bedside Glucose (Misc Panel) 118H 6/12/19 16:27: Bedside Glucose (Misc Panel) 160H 11/03/18 20:52: Bedside Glucose (Misc Panel) 227H 11/04/18 06:01: Estimated Mean Plasma Glucose 246H, Hemoglobin A1c 10.2 11/04/18 06:04: Nucleated Red Blood Cells % (auto) 0.0, Activated Partial Thromboplast Time 110.2H, Anion Gap 5L, Glomerular Filtration Rate 42.8L, Blood Urea Nitrogen 22H, Creatinine 1.75H, Sodium Level 139, Potassium Level 4.4, Chloride Level 106, Carbon Dioxide Level 28, Calcium Level 9.4 CBC/BMP Laboratory Tests 11/04/18 06:04 Red Blood Count 5.60, Mean Corpuscular Volume 77.5 L, Mean Corpuscular Hemoglo bin 23.0 L, Mean Corpuscular Hemoglobin Concent 29.7 L, Red Cell Distribution Width 18.0 H, Calcium Level 9.4 Microbiology Microbiology 10/29/18 Blood Culture - Final, Complete NO GROWTH AFTER 5 DAYS 10/29/18 Blood Culture - Final, Complete NO GROWTH AFTER 5 DAYS 11/02/18 Stool Occult Blood (ANTOINE) - Final, Complete 10/31/18 Stool Occult Blood (ANTOINE) - Final, Complete 10/29/18 Gram Stain - Final, Complete 10/29/18 Wound Culture - Final, Complete Enterobacter Cloacae Complex Strep Agalactiae Group B DIPIKA ESPINOSA MD Nov 04, 2018 10:29
[2018-11-04 14:24] LABS: INR 1.12; PROTHROMBIN TIME 14.6 SECONDS (12.1-14.4)
[2018-11-04 14:26] LABS: PARTIAL THROMBOPLASTIN TIME 108.9 SECONDS (25.4-37.6)
[2018-11-04] MEDS ORDERED: cloNIDine 0.1 MG TAB PO ONE (19:00)
[2018-11-04 20:43] LABS: INR 1.09; PROTHROMBIN TIME 14.2 SECONDS (12.1-14.4)
[2018-11-04] MEDS: AMITRIPTYLINE 25 MG TAB PO SCH (21:00)
[2018-11-04] MEDS: ATORVASTATIN 10 MG TAB PO SCH (21:01)
[2018-11-04] MEDS: CETIRIZINE (ZyrTEC) 10 MG TAB PO SCH (21:01)
[2018-11-04 23:24] LABS: PARTIAL THROMBOPLASTIN TIME 68.6 SECONDS (25.4-37.6)
[2018-11-05] MEDS: PIPERACILLIN/TAZOBACTAM SOD 4.5 GM in D5W MINI-BAG PLUS 50 ML IV SCH ×4 (00:24→23:42)
[2018-11-05] MEDS: HEPARIN DRIP 25,000 UNITS in APPROPRIATE DILUENT 1 EA IV SCH ×3 (02:38→23:42)
[2018-11-05] MEDS: PERCOCET 5MG/325MG TAB PO PRN ×5 (03:24→22:05)
[2018-11-05 05:54] VITALS: BP 157/92
[2018-11-05 06:37] LABS: BASO # 0.1 10^3/uL (0.0-0.2); BASO % 1.7 % (0.0-1.0); EOS # 0.5 10^3/uL (0.0-0.50); EOS % 6.2 % (0.0-3.0); LYMPH % 26.7 % (24.0-44.0); MEAN CORPUSCULAR HEMOGLOBIN 24.1 pg (27.0-33.0); MEAN CORPUSCULAR HGB CONC 30.4 g/dl (32.0-36.5); MEAN CORPUSCULAR VOLUME 79.2 fl (80.0-96.0); MONO # 0.4 10^3/uL (0.0-0.8); MONO % 5.8 % (0.0-5.0); NEUTROPHILS # 4.4 10^3/uL (1.8-7.7); NEUTROPHILS % 57.9 % (36.0-66.0); PLATELET COUNT, AUTOMATED 493 10^3/uL (150-450); RED BLOOD COUNT 5.81 10^6/uL (4.30-6.10); WHITE BLOOD COUNT 7.6 10^3/uL (4.0-10.0)
[2018-11-05] MEDS: SODIUM CHLORIDE 0.9% INJ 10 ML SYR IV SCH ×2 (06:47→17:22)
[2018-11-05 07:02] LABS: CALCIUM LEVEL 9.6 MG/DL (8.5-10.1); CREATININE FOR GFR 1.87 MG/DL (0.70-1.30); GLOMERULAR FILTRATION RATE 39.7 (>56); POTASSIUM SERUM 4.6 MEQ/L (3.5-5.1)
[2018-11-05] MEDS: amLODIPine 5 MG TAB PO SCH ×2 (09:51→20:31)
[2018-11-05] MEDS: ENALAPRIL MALEATE 10 MG TAB PO SCH ×2 (09:51→20:29)
[2018-11-05] MEDS: buPROPion **XL** TABLET 150MG (WELLBUTRIN XL) PO SCH (09:51)
[2018-11-05] MEDS: PANTOPRAZOLE 40MG TAB (PROTONIX) PO SCH (09:51)
[2018-11-05] MEDS: CARVedilol 12.5 MG TAB PO SCH ×2 (09:51→20:31)
[2018-11-05] MEDS: LEVEMIR (INSULIN DETEMIR) 1 UNITS/0.01ML SC SCH ×2 (09:52→21:00)
[2018-11-05] MEDS: HumaLOG INSULIN (NovoLOG) PER UNIT SC SCH ×5 (09:53→21:50)
--- NOTE | 2018-11-05 11:04 | IPNPDOC ---
Date Seen The patient was seen on 11/05/18. Progress Note Subjective: Pt is upset about "losing my foot," but understands that it would not heal if left as is. "It's a part of you, you know. But, I know it needs to be done. so long as I get a prosthesis, and an electric wheelchair. 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 [employer] has been consulted for assistance as well. Pt still requesting increasing carbohydrates in his diet. "It's just not enough for me. I need more bread. I'm a big yu, you know." Pt STILL c/o pain 8/10 in the left leg with some relief with pain meds with decreased pain to 5/10 described as throbbing and achy. still on iv zosyn. afebrile. plans for BKA with Dr. Go and to continue 5 days abx postop. "I'm not going home until this leg is all healed up from the amputation. I'm okay with that so long as I have a prosthesis, and maybe an electric wheelchair. I need handicap housing. My place won't work once I get surgery. " Objective Physical Examination vitals: pls see below General Exam: Positive: Alert, Cooperative, Mild Distress Eye Exam: Positive: PERRLA, Conjunctiva & lids normal, EOMI; Negative: Sclera icteric, Ptosis ENT Exam: Positive: Atraumatic, Mucous membr. moist/pink, Pharynx Normal, Tongue Midline, Nares Patent; Negative: Pharyngeal Edema Neck Exam: Positive: Supple, +2 carotid pulse wo bruit; Negative: JVD, thyromegaly, Lymphadenopathy Chest Exam: Positive: Clear to auscultation, Normal air movement; Negative: Rales, Rhonchi, Wheezing, Diminished Heart Exam: Positive: Rate Normal, Regular Rhythm, Normal S1, Normal S2; Negative: Gallops, Murmurs, Rubs Abdomen Exam: Positive: BS Hypoactive, Soft, Tenderness (to palpation in the lower abdomen around the healed, clean, dry, intact hernia incision, no appreciable hernia); Negative: Hepatospenomegaly, Mass, Hernia Extremity Exam: Positive: Edema (non-pitting, left lower leg), Normal pulses, Swelling, Other (spreading erythema noted around left heel, circular unstageable wound ulcer on left heel that is 5m in greatest diameter with eschar noted in the base, macerated periwound); Negative: Clubbing, Cyanosis, Tenderness Skin Exam: Positive: Breakdown (as noted above), Lesion (as noted above); Negative: Rash Neuro Exam: Positive: Normal Speech, Cranial Nerves 3-12 NL Psych Exam: Positive: Oriented x 3 laboratory data, imaging studies, microbiology: pls see below. reviewed. Assessment /Plan Mr. Herrera is a 58-year-old male who presents to [facility]'s Emergency Department with left leg pain. 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 He is being followed at the wound clinic and dr Ivory for his recurring heel and foot wounds for several years. he was admitted here from 06/16/18 to 08/21/18 then from 10/04/18 to 10/13/18 for this ulcer. He had been to his appointment at the wound care center on 10/22/2018 that had a wound VAC in place. However, the wound VAC was not securing correctly and adjustments were made. His wound at that time was debrided, hemostasis was obtained, and the wound was dressed with hydrofera blue heavy drainage and the NPWT was applied. He returned to the wound care center on 10/29/2018 and it was noted that he left leg looked significantly worse with possible signs of lymphangitis and swelling. He was instructed to present to the Emergency Department for further evaluation. The patient states that after his debridement on Thursday his wound continued to bleed. By Thursday he developed cold chills with fever or night sweats. He stayed in bed all day. He describes a burning/stabbing pain in his foot extending up to his thigh since the extensive debridement with associated swelling. He was admitted left foot cellulitis, lymphangitis with chronic left heel ulcer and Janie on CKD. Left heel/leg cellulitis and possible underlying osteomyelitis 2/2 chronic wound ulcer still on iv Zosyn per ID/ s/p Vancomycin, wound culture and gram stain reviewed ID and vascular surgery consulted Procalcitonin reviewed.plans for angioplasty with vascular surgery to improve circulation. Continue [place], started Morphine for pain control Wound care: place OptiLock over wound ulcer on left heel, wrap with Kerlex, monitor for drainage PT ordered plans for BKA with Dr. Go and to continue 5 days abx postop. "I'm not going home until this leg is all healed up from the amputation. I'm okay with that so long as I have a prosthesis, and maybe an electric wheelchair. I need handicap housing. My place won't work once I get surgery. " JANIE on CKD Baseline creatinine 1.8 continue to monitor. ACEI on hold. Abdominal pain resolved. Urinalysis is negative. Abdominal exam benign probably from old hernia repair with mesh hich he thinks sometimes bothers him still. Surgery in 2005 DVT right upper extremity Holding Eliquis and ASA for possible evaluation for surgical intervention; on Heparin drip DM with diabetic neuropathy Levemir 60 units SQ BID (patient is on Levemir 68 units SQ daily and insulin Glargine 48 units SQ QHS) SSI AC/HS, FSBS AC/HS, hypoglycemic protocol 2g sodium + consistent carbohydrate diet Pt requests increasing carbohydrates in his diet. "It's just not enough for me. I need more bread. I'm a big yu, you know." oil well services supervisor consulted for calorie count and diet recommendations BMI 38.1 Obesity Pt requests increasing carbohydrates in his diet. "It's just not enough for me. I need more bread. I'm a big yu, you know." oil well services supervisor consulted for calorie count and diet recommendations SARAH home cpap Hypertension BP controlled now. ACEI on hold Plan/VTE VTE Prophylaxis Ordered?: Yes (Heparin drip) disposition: will need handicap housing. pfs consutled. VS, I&O, 24H, Fishbone Vital Signs/I&O Vital Signs Date Time Temp Pulse Resp B/P (MAP) Pulse Ox O2 Delivery O2 Flow Rate FiO2 11/05/18 10:22 18 11/05/18 09:51 157/92 11/05/18 09:51 69 11/05/18 05:54 98.3 93 I&O- Last 24 Hours up to 6 AM 11/05/18 06:00 Intake Total 1200 ml Output Total 3000 ml Balance -1800 ml Laboratory Data 24H LABS Laboratory Tests 2 11/04/18 11:23: Bedside Glucose (Misc Panel) 125H 11/04/18 14:02: Prothrombin Time 14.6H, Prothromb Time International Ratio 1.12, Activated Partial Thromboplast Time 108.9H 11/04/18 17:22: Bedside Glucose (Misc Panel) 142H 11/04/18 19:56: Prothrombin Time 14.2, Prothromb Time International Ratio 1.09, Activated Partial Thromboplast Time 68.6H 11/04/18 20:06: Bedside Glucose (Misc Panel) 144H 11/05/18 06:22: Immature Granulocyte % (Auto) 1.7, White Blood Count 7.6, Red Blood Count 5.81, Hemoglobin 14.0, Hematocrit 46.0, Mean Corpuscular Volume 79.2L, Mean Corpuscular Hemoglobin 24.1L, Mean Corpuscular Hemoglobin Concent 30.4L, Red Cell Distribution Width 17.9H, Platelet Count 493H, Neutrophils (%) (Auto) 57.9, Lymphocytes (%) (Auto) 26.7, Monocytes (%) (Auto) 5.8H, Eosinophils (%) (Auto) 6.2H, Basophils (%) (Auto) 1.7H, Neutrophils # (Auto) 4.4, Lymphocytes # (Auto) 2.0, Monocytes # (Auto) 0.4, Eosinophils # (Auto) 0.5, Basophils # (Auto) 0.1, Nucleated Red Blood Cells % (auto) 0.0, Anion Gap 7L, Glomerular Filtration Rate 39.7L, Blood Urea Nitrogen 24H, Creatinine 1.87H, Sodium Level 140, Potassium Level 4.6, Chloride Level 106, Carbon Dioxide Level 27, Calcium Level 9.6 11/05/18 09:50: Bedside Glucose (Misc Panel) 157H CBC/BMP Laboratory Tests 11/05/18 06:22 Red Blood Count 5.81, Mean Corpuscular Volume 79.2 L, Mean Corpuscular Hemoglobin 24.1 L, Mean Corpuscular Hemoglobin Concent 30.4 L, Red Cell Distribution Width 17.9 H, Neutrophils (%) (Auto) 57.9, Lymphocytes (%) (Auto) 26.7, Monocytes (%) (Auto) 5.8 H, Eosinophils (%) (Auto) 6.2 H, Basophils (%) (Auto) 1.7 H, Neutrophils # (Auto) 4.4, Lymphocytes # (Auto) 2.0, Monocytes # (Auto) 0.4, Eosinophils # (Auto) 0.5, Basophils # (Auto) 0.1, Calcium Level 9.6 Microbiology Microbiology 10/29/18 Blood Culture - Final, Complete NO GROWTH AFTER 5 DAYS 10/29/18 Blood Culture - Final, Complete NO GROWTH AFTER 5 DAYS 11/04/18 Stool Occult Blood (ANTOINE) - Final, Complete 11/02/18 Stool Occult Blood (ANTOINE) - Final, Complete 10/31/18 Stool Occult Blood (ANTOINE) - Final, Complete 10/29/18 Gram Stain - Final, Complete 10/29/18 Wound Culture - Final, Complete Enterobacter Cloacae Complex Strep Agalactiae Group B DIPIKA ESPINOSA MD Nov 05, 2018 11:04
[2018-11-05 14:00] VITALS: BP 120/91
--- NOTE | 2018-11-05 15:30 | IPN ---
INFECTIOUS DISEASE PROGRESS NOTE DATE: 11/05/2018 SUBJECTIVE: Patient examined at bedside. No fever, chills, or reported events overnight. States he feels well and is awaiting surgery for amputation today. He continues on day 5 of IV Zosyn which he is tolerating well. PHYSICAL EXAMINATION: Vitals: Temperature 98.3, pulse 68, respirations 18, blood pressure 157/92, mean arterial pressure (MAP) of 113. Pulse oximetry 93% on room air. General: Resting comfortably in bed, no acute distress. Alert and oriented times three. Fully conversant. HEENT: Normocephalic, atraumatic. Extraocular muscles intact. Cardiac: Regular rate and rhythm. Normal S1, S2. Lungs: Clear to auscultation bilaterally. Equal chest rise without any adventitious sounds. Abdomen: Obese. Soft, nontender, nondistended. Extremities: No lower extremity edema or erythema. 2+ pulses in all limbs. Left foot heel lesion examined. 2 x 2 cm with mild serosanguineous drainage and some heel erythema around it. Skin: No other visible lesions or rashes. LABS: WBC 7.6, hemoglobin and hematocrit 14 and 46, platelets 493. Sodium and potassium 140 and 4.6, BUN and creatinine 24 and 1.87. No new microbiology or imaging. Previous heel culture 10/29/2018 positive for enterobacter cloacae complex and Streptococcus agalactiae group B. ASSESSMENT AND PLAN: 1. Chronic osteomyelitis of the left foot with superimposed cellulitis. Wound cultures positive for enterobacter cloacae complex and group B Streptococcus. Patient wants to continue with a below the knee amputation for which he is scheduled today due to his recurrent hospitalizations and infections of his left foot. Dr. Izaguirre and Dr. Go are on board as well. Continue IV Zosyn. He has already received 7 days of this. Continue antibiotics for 5 additional days postoperatively. 2. Insulin dependent diabetes mellitus, type 2. Patient poorly controlled diabetes. Recent A1c of 10. Patient has been counseled on lifestyle changes and requiring stricter rate control. My faculty preceptor for this patient encounter was physically present during the encounter and was fully available. All aspects of the patient interview, examination, medical decision making process, and medical care plan development were reviewed and approved by the faculty preceptor. The faculty preceptor is aware and concurs with the plan as stated in the body of this note and will attest to such by his/her co-signature. TANNER
--- NOTE | 2018-11-05 16:17 | IPNPDOC ---
Date Seen The patient was seen on 11/05/18. Progress Note Pt seen and examined. He was scheduled as an add-on case for Dr Go this afternoon, but the add-on list is very long and he may not be able to start until late . I spoke with the patient and explained that it may be best to change the case to tomorrow morning or Thursday, and he says he is too anxious to wait until Thursday, but is ok waiting until tomorrow bc he is very hungry. I discussed again the risks, benefits and alternatives to L BKA, and he is agreeable to have me do this tomorrow instead of Dr Go late . Informed consent obtained. His LLE is warm, wound left heal is clean, minimal swelling noted at foot and ankle, no cellulitis or erythema or induration noted. He appears to be a suitable candidate for BKA. Discussed with the OR and they agree to an 8am start tomorrow morning. Pt is agreeable. Will proceed in the a.m. Ok to eat tonight, NPO p MN, PT/OT and will work towards rehab admit postop if possible. VS, I&O, 24H, Fishbone Vital Signs/I&O Vital Signs Date Time Temp Pulse Resp B/P (MAP) Pulse Ox O2 Delivery O2 Flow Rate FiO2 11/05/18 14:07 18 11/05/18 14:00 98.5 88 120/91 (101) 95 I&O- Last 24 Hours up to 6 AM 11/05/18 06:00 Intake Total 1200 ml Output Total 3000 ml Balance -1800 ml Laboratory Data 24H LABS Laboratory Tests 2 11/04/18 17:22: Bedside Glucose (Misc Panel) 142H 11/04/18 19:56: Prothrombin Time 14.2, Prothromb Time International Ratio 1.09, Activated Partial Thromboplast Time 68.6H 11/04/18 20:06: Bedside Glucose (Misc Panel) 144H 11/05/18 06:22: Immature Granulocyte % (Auto) 1.7, White Blood Count 7.6, Red Blood Count 5.81, Hemoglobin 14.0, Hematocrit 46.0, Mean Corpuscular Volume 79.2L, Mean [place]ona uscular Hemoglobin 24.1L, Mean Corpuscular Hemoglobin Concent 30.4L, Red Cell Distribution Width 17.9H, Platelet Count 493H, Neutrophils (%) (Auto) 57.9, Lymphocytes (%) (Auto) 26.7, Monocytes (%) (Auto) 5.8H, Eosinophils (%) (Auto) 6.2H, Basophils (%) (Auto) 1.7H, Neutrophils # (Auto) 4.4, Lymphocytes # (Auto) 2.0, Monocytes # (Auto) 0.4, Eosinophils # (Auto) 0.5, Basophils # (Auto) 0.1, Nucleated Red Blood Cells % (auto) 0.0, Anion Gap 7L, Glomerular Filtration Rate 39.7L, Blood Urea Nitrogen 24H, Creatinine 1.87H, Sodium Level 140, Potassium Level 4.6, Chloride Level 106, Carbon Dioxide Level 27, Calcium Level 9.6 11/05/18 09:50: Bedside Glucose (Misc Panel) 157H 11/05/18 11:35: Bedside Glucose (Misc Panel) 130H 11/05/18 14:45: Bedside Glucose (Misc Panel) 68L 11/05/18 15:48: Bedside Glucose (Misc Panel) 124H CBC/BMP Laboratory Tests 11/05/18 06:22 Red Blood Count 5.81, Mean Corpuscular Volume 79.2 L, Mean Corpuscular Hemoglobin 24.1 L, Mean Corpuscular Hemoglobin Concent 30.4 L, Red Cell Distribution Width 17.9 H, Neutrophils (%) (Auto) 57.9, Lymphocytes (%) (Auto) 26.7, Monocytes (%) (Auto) 5.8 H, Eosinophils (%) (Auto) 6.2 H, Basophils (%) (Auto) 1.7 H, Neutrophils # (Auto) 4.4, Lymphocytes # (Auto) 2.0, Monocytes # (Auto) 0.4, Eosinophils # (Auto) 0.5, Basophils # (Auto) 0.1, Calcium Level 9.6 Microbiology Microbiology 10/29/18 Blood Culture - Final, Complete NO GROWTH AFTER 5 DAYS 10/29/18 Blood Culture - Final, Complete NO GROWTH AFTER 5 DAYS 11/04/18 Stool Occult Blood (ANTOINE) - Final, Complete 11/02/18 Stool Occult Blood (ANTOINE) - Final, Complete 10/31/18 Stool Occult Blood (ANTOINE) - Final, Complete 10/29/18 Gram Stain - Final, Complete 10/29/18 Wound Culture - Final, Complete Enterobacter Cloacae Complex Strep Agalactiae Group B NESTOR CLARK MD Nov 05, 2018 16:17
[2018-11-05] MEDS: AMITRIPTYLINE 25 MG TAB PO SCH (20:29)
[2018-11-05] MEDS: ATORVASTATIN 10 MG TAB PO SCH (20:29)
[2018-11-05] MEDS: CETIRIZINE (ZyrTEC) 10 MG TAB PO SCH (20:31)
[2018-11-05 22:00] VITALS: BP 126/74
[2018-11-06] VITALS (11 sets, daily range): BP systolic 98–171; BP diastolic 68–99
[2018-11-06] MEDS: PERCOCET 5MG/325MG TAB PO PRN ×3 (02:11→15:33)
[2018-11-06] MEDS: buPROPion **XL** TABLET 150MG (WELLBUTRIN XL) PO SCH (06:02)
[2018-11-06] MEDS: CARVedilol 12.5 MG TAB PO SCH ×2 (06:02→21:06)
[2018-11-06] MEDS: SODIUM CHLORIDE 0.9% INJ 10 ML SYR IV SCH ×2 (06:03→18:12)
[2018-11-06] MEDS: ENALAPRIL MALEATE 10 MG TAB PO SCH ×2 (06:09→21:06)
[2018-11-06] MEDS: PANTOPRAZOLE 40MG TAB (PROTONIX) PO SCH (06:09)
[2018-11-06] MEDS: amLODIPine 5 MG TAB PO SCH ×2 (06:09→21:05)
[2018-11-06] MEDS ORDERED: D5W/0.45% SODIUM CHLORIDE 1,000 ML IV SCH (06:45)
[2018-11-06] MEDS ORDERED: LORazepam 2 MG/ML VIAL (J2060) IV STA (07:01)
--- NOTE | 2018-11-06 07:01 | IPNPDOC ---
Date Seen The patient was seen on 11/06/18. Progress Note Subjective: npo this morning for Left BKA by vascular surgery. pt is very anxious, and requesting something to help him be less restless. pt became hypoglycemic yesterday while npo but due to scheduling issues, pt's surgery has been postponed. Objective Physical Examination vitals: pls see below General Exam: Positive: Alert, Cooperative, Mild Distress Eye Exam: Positive: PERRLA, Conjunctiva & lids normal, EOMI; Negative: Sclera icteric, Ptosis ENT Exam: Positive: Atraumatic, Mucous membr. moist/pink, Pharynx Normal, Tongu e Midline, Nares Patent; Negative: Pharyngeal Edema Neck Exam: Positive: Supple, +2 carotid pulse wo bruit; Negative: JVD, thyromegaly, Lymphadenopathy Chest Exam: Positive: Clear to auscultation, Normal air movement; Negative: Rales, Rhonchi, Wheezing, Diminished Heart Exam: Positive: Rate Normal, Regular Rhythm, Normal S1, Normal S2; Negative: Gallops, Murmurs, Rubs Abdomen Exam: Positive: BS Hypoactive, Soft, Tenderness (to palpation in the lower abdomen around the healed, clean, dry, intact hernia incision, no appreciable hernia); Negative: Hepatospenomegaly, Mass, Hernia Extremity Exam: left BKA 11/05/18 bandaged.no edema or cyanosis Skin Exam: Positive: Breakdown (as noted above), Lesion (as noted above); Negative: Rash Neuro Exam: Positive: Normal Speech, Cranial Nerves 3-12 NL Psych Exam: Positive: Oriented x 3 laboratory data, imaging studies, microbiology: pls see below. reviewed. Assessment /Plan Mr. Herrera is a 58-year-old male who presents to [facility]'s Emergency Department with left leg pain. 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 He is being followed at the wound clinic and dr Ivory for his recurring heel and foot wounds for several years. he was admitted here from 06/16/18 to 08/21/18 then from 10/04/18 to 10/13/18 for this ulcer. He had been to his appointment at the wound care center on 10/22/2018 that had a wound VAC in place. However, the wound VAC was not securing correctly and adjustments were made. His wound at that time was debrided, hemostasis was obtained, and the wound was dressed with hydrofera blue heavy drainage and the NPWT was applied. He returned to the wound care center on 10/29/2018 and it was noted that he left leg looked significantly worse with possible signs of lymphangitis and swelling. He was instructed to present to the Emergency Department for further evaluation. The patient states that after his debridement on Thursday his wound continued to bleed. By Thursday he developed cold chills with fever or night sweats. He stayed in bed all day. He describes a burning/stabbing pain in his foot extending up to his thigh since the extensive debridement with associated swelling. He was admitted left foot cellulitis, lymphangitis with chronic left heel ulcer and Janie on CKD. Left heel/leg cellulitis and possible underlying osteomyelitis 2/2 chronic wound ulcer plans for left BKA 11/06/18 still on iv Zosyn per ID/ s/p Vancomycin, wound culture and gram stain reviewed ID and vascular surgery consulted Procalcitonin reviewed. Continue [place], started Morphine for pain control to continue 5 days abx postop. "I'm not going home until this leg is all healed up from the amputation. I'm okay with that so long as I have a prosthesis, and maybe an electric wheelchair. I need handicap housing. My place won't work once I get surgery. " plans for left BKA mgt per vascular surgery 11/06/18 PT/OT consulted JANIE on CKD Baseline creatinine 1.8 continue to monitor. ACEI on hold. anxiety prn xanax s/p ativan Abdominal pain resolved. Urinalysis is negative. Abdominal exam benign probably from old hernia repair with mesh hich he thinks sometimes bothers him still. Surgery in 2005 DVT right upper extremity defer to vascular surgery in light of plans for left bka 11/06/18 DM with diabetic neuropathy Levemir 60 units SQ BID (patient is on Levemir 68 units SQ daily and insulin Glargine 48 units SQ QHS) SSI AC/HS, FSBS AC/HS, hypoglycemic protocol 2g sodium + consistent carbohydrate diet Pt requests increasing carbohydrates in his diet. "It's just not enough for me. I need more bread. I'm a big yu, you know." infectious diseases physician consulted for calorie count and diet recommendations BMI 38.1 Obesity Pt requests increasing carbohydrates in his diet. "It's just not enough for me. I need more bread. I'm a big yu, you know." infectious diseases physician consulted for calorie count and diet recommendations SARAH home cpap Hypertension BP controlled now. ACEI on hold Plan/VTE VTE Prophylaxis Ordered?: Yes (Heparin drip) disposition: will need handicap housing. pfs consutled. VS, I&O, 24H, Fishbone Vital Signs/I&O Vital Signs Date Time Temp Pulse Resp B/P (MAP) Pulse Ox O2 Delivery O2 Flow Rate FiO2 11/06/18 06:11 18 11/06/18 06:02 67 167/89 11/05/18 22:00 98.0 95 I&O- Last 24 Hours up to 6 AM 11/06/18 06:00 Intake Total 960 ml Output Total 2650 ml Balance -1690 ml Laboratory Data 24H LABS Laboratory Tests 2 11/05/18 09:50: Bedside Glucose (Misc Panel) 157H 11/05/18 11:35: Bedside Glucose (Misc Panel) 130H 11/05/18 14:45: Bedside Glucose (Misc Panel) 68L 11/05/18 15:48: Bedside Glucose (Misc Panel) 124H 11/05/18 20:03: Activated Partial Thromboplast Time 74.6H 11/05/18 20:57: Bedside Glucose (Misc Panel) 312H 11/06/18 02:18: Bedside Glucose (Misc Panel) 285H Microbiology Microbiology 10/29/18 Blood Culture - Final, Complete NO GROWTH AFTER 5 DAYS 10/29/18 Blood Culture - Final, Complete NO GROWTH AFTER 5 DAYS 11/04/18 Stool Occult Blood (ANTOINE) - Final, Complete 11/02/18 Stool Occult Blood (ANTOINE) - Final, Complete 10/31/18 Stool Occult Blood (ANTOINE) - Final, Complete 10/29/18 Gram Stain - Final, Complete 10/29/18 Wound Culture - Final, Complete Enterobacter Cloacae Complex Strep Agalactiae Group B DIPIKA ESPINOSA MD Nov 06, 2018 06:28
[2018-11-06 07:04] LABS: BASO # 0.2 10^3/uL (0.0-0.2); BASO % 2.3 % (0.0-1.0); EOS # 0.5 10^3/uL (0.0-0.50); EOS % 6.3 % (0.0-3.0); HEMATOCRIT 47.7 % (42.0-52.0); HEMOGLOBIN 14.3 g/dl (13.5-17.5); LYMPH # 2.2 10^3/uL (1.5-4.5); LYMPH % 28.3 % (24.0-44.0); MEAN CORPUSCULAR VOLUME 79.9 fl (80.0-96.0); MONO # 0.4 10^3/uL (0.0-0.8); MONO % 4.6 % (0.0-5.0); NEUTROPHILS # 4.5 10^3/uL (1.8-7.7); NEUTROPHILS % 56.7 % (36.0-66.0); PLATELET COUNT, AUTOMATED 541 10^3/uL (150-450); RED BLOOD COUNT 5.97 10^6/uL (4.30-6.10); WHITE BLOOD COUNT 7.9 10^3/uL (4.0-10.0)
[2018-11-06 07:13] LABS: CALCIUM LEVEL 9.4 MG/DL (8.5-10.1); CREATININE FOR GFR 1.83 MG/DL (0.70-1.30); GLOMERULAR FILTRATION RATE 40.7 (>56); POTASSIUM SERUM 4.6 MEQ/L (3.5-5.1)
[2018-11-06] MEDS: HumaLOG INSULIN (NovoLOG) PER UNIT SC SCH ×4 (07:30→21:07)
[2018-11-06] MEDS ORDERED: BUPIVACAINE HCL 0.25% 30 ML VIAL As Ordered ONE (07:43)
[2018-11-06] MEDS ORDERED: BUPIVACAINE HCL 0.25% 10 ML VIAL As Ordered ONE (07:43)
[2018-11-06] MEDS ORDERED: fentaNYL 100 MCG/2 ML INJECTION (J3010) As Ordered ONE ×4 (08:00→10:56)
[2018-11-06] MEDS ORDERED: HumaLOG INSULIN (NovoLOG) PER UNIT As Ordered ONE ×3 (08:00→11:05)
[2018-11-06] MEDS ORDERED: MIDAZOLAM INJ 2 MG/2 ML VIAL (J2250) As Ordered ONE ×3 (08:00→11:30)
[2018-11-06] MEDS ORDERED: HumaLOG INSULIN (NovoLOG) PER UNIT SC ONE ×3 (08:14→11:00)
[2018-11-06] MEDS: PIPERACILLIN/TAZOBACTAM SOD 4.5 GM in D5W MINI-BAG PLUS 50 ML IV SCH ×2 (08:26→16:38)
[2018-11-06] MEDS ORDERED: PROPOFOL 200 MG/20 ML VIAL As Ordered ONE (08:40)
[2018-11-06] MEDS ORDERED: SUGAMMADEX SODIUM 500 MG/5 ML VIAL (BRIDION) As Ordered ONE (08:40)
[2018-11-06] MEDS ORDERED: LIDOCAINE 2% INJ 100 MG/5 ML SDV (FOR ANES.) As Ordered ONE (08:40)
[2018-11-06] MEDS ORDERED: ROCURONIUM BROMIDE 50 MG/5 ML VIAL As Ordered ONE (08:40)
[2018-11-06] MEDS ORDERED: ONDANSETRON 4MG/2ML VIAL (J2405) As Ordered ONE (08:41)
[2018-11-06] MEDS ORDERED: fentaNYL 100 MCG/2 ML INJECTION (J3010) IV ONE (08:45)
[2018-11-06] MEDS ORDERED: MIDAZOLAM INJ 2 MG/2 ML VIAL (J2250) IV ONE ×2 (08:45→11:45)
[2018-11-06] MEDS ORDERED: BUPIVACAINE/EPIN 0.5% 30 ML VIAL As Ordered ONE (08:47)
[2018-11-06] MEDS ORDERED: dexameTHASONE 10 MG/1 ML VIAL PRES.FREE (J1100) ONE (09:24)
[2018-11-06] MEDS ORDERED: LIDOCAINE 1% MDV 20ML VIAL ONE (09:24)
[2018-11-06] MEDS ORDERED: ePHEDrine SULFATE 25 MG/5 ML(5MG/ML) SYRINGE As Ordered ONE (09:27)
[2018-11-06] MEDS ORDERED: GLYCOPYRROLATE INJ 0.2 MG/ML 2 ML VIAL As Ordered ONE (09:34)
[2018-11-06] MEDS: fentaNYL 100 MCG/2 ML INJECTION (J3010) IV PRN ×4 (10:59→11:30)
[2018-11-06] MEDS ORDERED: HumuLIN R (REGULAR) INSULIN (NovoLIN R) **100U/ML** PER UNIT As Ordered ONE (11:04)
--- NOTE | 2018-11-06 11:09 | ROOPDOC ---
[facility] Report Of Operation Report of Operation DATE OF PROCEDURE: 11/06/18 PREPROCEDURE DIAGNOSES: Osteomyelitis and nonhealing ulcer left heel POSTPROCEDURE DIAGNOSES: Same PROCEDURE: Left below-knee amputation with posterior flap closure SURGEON: Nestor Escobar MD ANESTHESIA: Left lower extremity nerve block, general anesthesia, local anesth esia. INDICATION FOR PROCEDURE: Mr. Herrera is a very pleasant 58-year-old gentleman with a long-standing history of a nonhealing wound on his left heel. He is undergone extensive wound care, but due to relative issues with noncompliance, the wound has failed to heal. The patient has osteomyelitis in the heel, and at this point the patient, his cloth washer back tender, and the wound care team until it is unlikely the wound will heal. Dr. Go was scheduled to take the patient for left below-knee amputation last night, but due to several cases scheduled out of the patient and emergent cases, we discussed the option that I could do the procedure this morning instead and the patient was agreeable. We again went over the risks benefits and alternatives to a left below-knee amputation and he was agreeable to proceed. We did discuss that since he had osteomyelitis and ongoing infection in the left foot that there is a possibility he would in fact the below-knee amputation site, but we would do our best to prevent this. Informed consent was obtained. PROCEDURE: The patient was brought to the OR in stable condition after a left lower extremity nerve block was placed by our anesthesia colleagues. General anesthesia and antibiotics were administered without complication. Left lower extremity was prepped and draped in a sterile fashion after tourniquet was placed above the knee. A timeout was performed. An Esmarch was used to exsanguinate the leg, and the tourniquet was inflated to 300 mmHg. Total tourniquet time was approximately 30 minutes. An incision was made 12 cm below the tibial plateau on the anterior aspect of leg transversely and carried down medially and laterally for long posterior flap. Bovie cautery was used for hemostasis. The saphenous vein was suture ligated and divided. The lesser saphenous vein was suture ligated and divided. We then used Bovie cautery to go down through the subcutaneous tissue and the muscle neurovascular but pulse were suture ligated and divided. The muscle was a little bit iniguez, but was able to contract with Bovie and was viable. There is a considerable amount of edema in the tissue. The tissue around the tibia and fibula was removed circumferentially proximally to allow for higher ligation of the bone. The tibia and the fibula were transected and an amputation knife was used to complete the posterior flap. The lower leg and foot was sent for pathology. Vascular stru ctures were suture ligated. The tourniquet was released. Additional suture ligation and Bovie cautery were used for hemostasis, along with Surgicel and local anesthesia with epinephrine. Following this, we copiously irrigated with large amounts of warm saline. Nervous structures were high ligated. Soft tissue was placed over the nurse to protect from neuroma formation near the bone. A rasp was used to smooth and bevel the anterior aspect of the tibia. A rasp was used to smooth the edges of the fibula as well. The posterior flap muscle fascia was attached over the end of the tibia to provide padding over the bone. The fascia was then closed with [id number] Vicryl sutures, and care was taken to make sure there was the closure. The skin edges were sharply cut for a tension-free closure. Skin edges were first approximated with interrupted nylon mattress sutures and then the rest of the skin was closed with skin chace. The wound was thoroughly cleaned and dried. Good hemostasis was noted. Xeroform, fluffs, kerlix, and in Omar wrap were placed as final dressings. The leg was elevated on a pillow and the patient was transferred to PACU in stable condition. SPECIMEN: Left leg sent for pathology DRAIN: None. ESTIMATED BLOOD LOSS: Approximately 100 mL. COMPLICATIONS: None. PLAN: Disposition planning should begin as soon as possible. Physical therapy and occupational therapy have been ordered. Would consider rehabilitation consult for evaluation if the patient is eligible. Analgesia prn. Valium for muscle spasms. High-protein diet to help with wound healing. Recommend continuing antibiotics. Activity as tolerated with assist. NESTOR ESCOBAR MD Nov 06, 2018 11:09
[2018-11-06] MEDS ORDERED: oxyCODONE 5MG TAB As Ordered ONE (11:17)
[2018-11-06] MEDS ORDERED: oxyCODONE 5MG TAB PO PRN (11:30)
[2018-11-06] MEDS ORDERED: METOCLOPRAMIDE INJ 10MG/2ML VIAL (J2765) IV PRN (11:30)
[2018-11-06] MEDS ORDERED: LR 1,000 ML IV SCH (11:30)
[2018-11-06] MEDS ORDERED: PROMETHAZINE INJ 25 MG/ML VIAL (J2550) IV PRN (11:30)
[2018-11-06] MEDS ORDERED: PERCOCET 5MG/325MG TAB As Ordered ONE (11:30)
[2018-11-06] MEDS ORDERED: PERCOCET 5MG/325MG TAB PO ONE (11:45)
[2018-11-06] MEDS: diazePAM 5 MG TAB PO PRN ×2 (12:30→21:07)
[2018-11-06] MEDS ORDERED: NS 1,000 ML IV SCH (17:58)
[2018-11-06] MEDS ORDERED: ONDANSETRON 4MG/2ML VIAL (J2405) IV PRN (18:00)
[2018-11-06] MEDS ORDERED: diphenhydrAMINE INJ 50MG/ML VIAL (J1200) IV PRN (18:00)
[2018-11-06] MEDS ORDERED: NALOXONE INJ 0.4 MG/1 ML VIAL (J2310) IV PRN (18:00)
[2018-11-06] MEDS ORDERED: EPIDURAL/PCA KEYS XX PRN (18:00)
[2018-11-06] MEDS ORDERED: NALBUPHINE HCL 10 MG/ML AMP (J2300) IV PRN (18:00)
[2018-11-06] MEDS ORDERED: MORPHINE 1MG/ML IN 0.9% NACL 100ML IV BAG IV PRN (18:00)
[2018-11-06] MEDS: CETIRIZINE (ZyrTEC) 10 MG TAB PO SCH (21:05)
[2018-11-06] MEDS: AMITRIPTYLINE 25 MG TAB PO SCH (21:05)
[2018-11-06] MEDS: ATORVASTATIN 10 MG TAB PO SCH (21:05)
[2018-11-07 00:30] VITALS: BP 135/82
[2018-11-07] MEDS: PIPERACILLIN/TAZOBACTAM SOD 4.5 GM in D5W MINI-BAG PLUS 50 ML IV SCH ×4 (00:36→23:42)
[2018-11-07] MEDS: diazePAM 5 MG TAB PO PRN ×2 (01:18→04:56)
[2018-11-07 02:00] VITALS: BP 144/80
[2018-11-07] MEDS: SODIUM CHLORIDE 0.9% INJ 10 ML SYR IV SCH ×2 (04:56→17:45)
[2018-11-07 06:00] VITALS: BP 178/86
[2018-11-07 06:21] LABS: BASO # 0.1 10^3/uL (0.0-0.2); BASO % 0.6 % (0.0-1.0); EOS # 0.1 10^3/uL (0.0-0.50); EOS % 0.6 % (0.0-3.0); HEMATOCRIT 43.4 % (42.0-52.0); LYMPH # 1.3 10^3/uL (1.5-4.5); MEAN CORPUSCULAR HEMOGLOBIN 23.1 pg (27.0-33.0); MEAN CORPUSCULAR VOLUME 77.2 fl (80.0-96.0); MONO # 1.1 10^3/uL (0.0-0.8); MONO % 6.7 % (0.0-5.0); NEUTROPHILS % 80.6 % (36.0-66.0); PLATELET COUNT, AUTOMATED 511 10^3/uL (150-450); RED BLOOD COUNT 5.62 10^6/uL (4.30-6.10); WHITE BLOOD COUNT 16.1 10^3/uL (4.0-10.0)
[2018-11-07 06:45] LABS: CALCIUM LEVEL 9.5 MG/DL (8.5-10.1); CREATININE FOR GFR 2.43 MG/DL (0.70-1.30); GLOMERULAR FILTRATION RATE 29.3 (>56); POTASSIUM SERUM 5.6 MEQ/L (3.5-5.1)
[2018-11-07] MEDS: HumaLOG INSULIN (NovoLOG) PER UNIT SC SCH ×4 (08:06→21:36)
[2018-11-07] MEDS: ENALAPRIL MALEATE 10 MG TAB PO SCH (08:06)
[2018-11-07] MEDS: PANTOPRAZOLE 40MG TAB (PROTONIX) PO SCH (08:07)
[2018-11-07] MEDS: buPROPion **XL** TABLET 150MG (WELLBUTRIN XL) PO SCH (08:07)
[2018-11-07] MEDS: CARVedilol 12.5 MG TAB PO SCH ×2 (08:07→21:27)
[2018-11-07] MEDS: amLODIPine 5 MG TAB PO SCH ×2 (08:07→21:28)
[2018-11-07] MEDS ORDERED: NS 1,000 ML IV ONE (10:00)
--- NOTE | 2018-11-07 10:06 | IPNPDOC ---
Date Seen The patient was seen on 11/07/18. Progress Note Subjective:Overnight, pt developed JANIE with hyperkalemia s/p patiromer, and calcium gluconate. Iv fluid trial and repeat mp. if worsens, will need telemetry and possible bicarb iv gtt at which point pt will need telemetry and icu transfer. 11/06/18 s/p Left BKA by vascular surgery with inadequate postop pain control. Pt complained of severe pain at the amputation site 03/03 without relief with prn morphine, prn norco. morphine hydrologic engineer was started with better control. blood pressure improved with improved pain control. Objective Physical Examination vitals: pls see below General Exam: Positive: Alert, Cooperative, Mild Distress Eye Exam: Positive: PERRLA, Conjunctiva & lids normal, EOMI; Negative: Sclera icteric, Ptosis ENT Exam: Positive: Atraumatic, Mucous membr. moist/pink, Pharynx Normal, Tongue Midline, Nares Patent; Negative: Pharyngeal Edema Neck Exam: Positive: Supple, +2 carotid pulse wo bruit; Negative: JVD, thyromegaly, Lymphadenopathy Chest Exam: Positive: Clear to auscultation, Normal air movement; Negative: Rales, Rhonchi, Wheezing, Diminished Heart Exam: Positive: Rate Normal, Regular Rhythm, Normal S1, Normal S2; Negative: Gallops, Murmurs, Rubs Abdomen Exam: Positive: BS Hypoactive, Soft, Tenderness (to palpation in the lower abdomen around the healed, clean, dry, intact hernia incision, no appreciable hernia); Negative: Hepatospenomegaly, Mass, Hernia Extremity Exam: left BKA bandaged.no edema or cyanosis Skin Exam: Positive: Breakdown (as noted above), Lesion (as noted above); Negative: Rash Neuro Exam: Positive: Normal Speech, Cranial Nerves 3-12 NL Psych Exam: Positive: Oriented x 3 laboratory data, imaging studies, microbiology: pls see below. reviewed. Assessment /Plan Mr. Herrera is a 58-year-old male who presents to [facility]'s Emergency Department with left leg pain. 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 He is being followed at the wound clinic and dr Ivory for his recurring heel and foot wounds for several years. he was admitted here from 06/16/18 to 08/21/18 then from 10/04/18 to 10/13/18 for this ulcer. He had been to his appointment at the wound care center on 10/22/2018 that had a wound VAC in place. However, the wound VAC was not securing correctly and adjustments were made. His wound at that time was debrided, hemostasis was obtained, and the wound was dressed with hydrofera blue heavy drainage and the NPWT was applied. He returned to the wound care center on 10/29/2018 and it was noted that he left leg looked significantly worse with possible signs of lymphangitis and swelling. He was instructed to present to the Emergency Department for further evaluation. The patient states that after his debridement on Thursday his wound continued to bleed. By Thursday he developed cold chills with fever or night sweats. He stayed in bed all day. He describes a burning/stabbing pain in his foot extending up to his thigh since the extensive debridement with associated swelling. He was admitted left foot cellulitis, lymphangitis with chronic left heel ulcer and Janie on CKD. 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 postop hydrologic engineer Morphine for better pain control to continue 5 days abx postop. "I'm not going home until this leg is all healed up from the amputation. I'm okay with that so long as I have a prosthesis, and maybe an electric wheelchair. I need handicap housing. My place won't work once I get surgery. " PFS consulted for outpt housing and electric wheelchair assistance. PT/OT consulted JANIE on CKD Baseline creatinine 1.8 continue to monitor. held rupal inhibitor trial of ivfluids, serial mp. Hyperkalemia 12lead ekg patiromer may need repeat doses of patiromer calcium gluconate if no improvement, may need transfer to icu for bicarbonate iv gtt. anxiety prn xanax s/p ativan preoperatively 11/06/18 Abdominal pain resolved. Urinalysis is negative. Abdominal exam benign probably from old hernia repair with mesh hich he thinks sometimes bothers him still. Surgery in 2005 DVT right upper extremity held preop for left bka 11/06/18 restarted on iv heparin gtt DM with diabetic neuropathy became hypoglycemic 11/05/18 while npo Levemir 60 units SQ BID (patient is on Levemir 68 units SQ daily and insulin Glargine 48 units SQ QHS) SSI AC/HS, FSBS AC/HS, hypoglycemic protocol 2g sodium + consistent carbohydrate diet Pt requests increasing carbohydrates in his diet. "It's just not enough for me. I need more bread. I'm a big yu, you know." ep specialist consulted for calorie count and diet recommendations BMI 38.1 Obesity Pt requests increasing carbohydrates in his diet. "It's just not enough for me. I need more bread. I'm a big yu, you know." ep specialist consulted for calorie count and diet recommendations SARAH home cpap to resume high risk for hypercapnia in light of morphine hydrologic engineer. Hypertension BP controlled now that pain is controlled. may need to hold RUPAL inhibitor if creatinine worsens. Plan/VTE VTE Prophylaxis Ordered?: Yes (Heparin drip) disposition: will need handicap housing. pfs consutled. VS, I&O, 24H, Fishbone Vital Signs/I&O Vital Signs Date Time Temp Pulse Resp B/P (MAP) Pulse Ox O2 Delivery O2 Flow Rate FiO2 11/07/18 02:00 98.6 93 18 144/80 (101) 94 11/06/18 21:09 2.0 I&O- Last 24 Hours up to 6 AM 11/07/18 06:00 Intake Total 2055 ml Output Total 1200 ml Balance 855 ml Laboratory Data 24H LABS Laboratory Tests 2 11/06/18 06:38: Immature Granulocyte % (Auto) 1.8, White Blood Count 7.9, Red Blood Count 5.97, Hemoglobin 14.3, Hematocrit 47.7, Mean Corpuscular Volume 79.9L, Mean Corpuscular Hemoglobin 24.0L, Mean Corpuscular Hemoglobin Concent 30.0L, Red Cell Distribution Width 18.6H, Platelet Count 541H, Neutrophils (%) (Auto) 56.7, Lymphocytes (%) (Auto) 28.3, Monocytes (%) (Auto) 4.6, Eosinophils (%) (Auto) 6.3H, Basophils (%) (Auto) 2.3H, Neutrophils # (Auto) 4.5, Lymphocytes # (Auto) 2.2, Monocytes # (Auto) 0.4, Eosinophils # (Auto) 0.5, Basophils # (Auto) 0.2, Nucleated Red Blood Cells % (auto) 0.0, Anion Gap 7L, Glomerular Filtration Rate 40.7L, Blood Urea Nitrogen 22H, Creatinine 1.83H, Sodium Level 139, Potassium Level 4.6, Chloride Level 107, Carbon Dioxide Level 25, Calcium Level 9.4 11/06/18 08:17: Bedside Glucose (Misc Panel) 218H 11/06/18 11:01: Bedside Glucose (Misc Panel) 261H 11/06/18 11:28: Bedside Glucose (Misc Panel) 247H 11/06/18 16:23: Bedside Glucose (Misc Panel) 250H 11/06/18 19:55: Bedside Glucose (Misc Panel) 268H CBC/BMP Laboratory Tests 11/06/18 06:38 Red Blood Count 5.97, Mean Corpuscular Volume 79.9 L, Mean Corpuscular Hemoglobin 24.0 L, Mean Corpuscular Hemoglobin Concent 30.0 L, Red Cell Distribution Width 18.6 H, Neutrophils (%) (Auto) 56.7, Lymphocytes (%) (Auto) 28.3, Monocytes (%) (Auto) 4.6, Eosinophils (%) (Auto) 6.3 H, Basophils (%) (Auto) 2.3 H, Neutrophils # (Auto) 4.5, Lymphocytes # (Auto) 2.2, Monocytes # (Auto) 0.4, Eosinophils # (Auto) 0.5, Basophils # (Auto) 0.2, Calcium Level 9.4 Microbiology Microbiology 10/29/18 Blood Culture - Final, Complete NO GROWTH AFTER 5 DAYS 10/29/18 Blood Culture - Final, Complete NO GROWTH AFTER 5 DAYS 11/04/18 Stool Occult Blood (ANTOINE) - Final, Complete 11/02/18 Stool Occult Blood (ANTOINE) - Final, Complete 10/31/18 Stool Occult Blood (ANTOINE) - Final, Complete 10/29/18 Gram Stain - Final, Complete 10/29/18 Wound Culture - Final, Complete Enterobacter Cloacae Complex Strep Agalactiae Group B DIPIKA ESPINOSA MD Nov 07, 2018 06:09
[2018-11-07] MEDS ORDERED: EPIDURAL/PCA KEYS XX PRN (10:15)
[2018-11-07] MEDS ORDERED: NALBUPHINE HCL 10 MG/ML AMP (J2300) IV PRN (10:15)
[2018-11-07] MEDS ORDERED: diphenhydrAMINE INJ 50MG/ML VIAL (J1200) IV PRN (10:15)
[2018-11-07] MEDS ORDERED: NALOXONE INJ 0.4 MG/1 ML VIAL (J2310) IV PRN (10:15)
[2018-11-07] MEDS ORDERED: CALCIUM GLUCONATE 1,000 MG in D5W MINI-BAG PLUS 100 ML IV ONE (10:15)
[2018-11-07] MEDS ORDERED: ONDANSETRON 4MG/2ML VIAL (J2405) IV PRN (10:15)
[2018-11-07 10:45] VITALS: BP 147/85
[2018-11-07] MEDS ORDERED: PATIROMER SORBITEX CALCIUM 8.4 GM POWDER PACKET (VELTASSA) PO ONE (12:00)
[2018-11-07] MEDS: NS 1,000 ML IV SCH (13:10)
--- NOTE | 2018-11-07 13:49 | ECGEPIP ---
[facility] Test Date: 2018-11-07 Pat Name: LOGAN CHRISTIANSON Department: Room: [place] [address] Gender: Male Ore Tester: SEFERINO : [id number] Requested By: DIPIKA Mckeon Order Number: [id number] Reading MD: Gautam Caba Measurements Intervals [place] Rate: 83 P: 18 FL: 170 QRS: 61 QRSD: 114 T: 30 QT: 353 QTc: 416 Interpretive Statements SINUS RHYTHM MODERATE INTRAVENTRICULAR CONDUCTION DELAY Similar to tracing done 01-21-17 Electronically Signed on 11-07-2018 13:49:25 EDT by Gautam Caba
--- NOTE | 2018-11-07 14:18 | IPNPDOC ---
Date Seen The patient was seen on 11/07/18. Progress Note Patient seen and examined POD #1 s/p . Laying in bed comfortably. No signs of distress. Patient and I had a long discussion about his narcotic needs. He was on a very high regimen of narcotics pre-op, and per hospitalist note today he was in 10/10 pain despite this regimen until very high dose SHELL MACHINE OPERATOR was started postop. I d/w patient that neuropathic pain is not optimally treated with narcotics, but since he was on such high doses pre-op, he now has a high tolerance and this diminishes his narcotic benefit for his post-op pain. He is very resistent to even considering any analgesia other than more narcotics. I suggested that we add valium again for muscle relaxation and neuropathic pain relief, and he should try to start weaning down his SHELL MACHINE OPERATOR use. I'd like him to be off the SHELL MACHINE OPERATOR soon so he will be ready for rehab if accepted. We then spoke about his refusal to work with PT/OT today. He appears very comfortable and relaxed, and barely complained with the dressing change, so I am confident he has adequate analgesia for activity with PT/OT. I encouraged him to agree to participation with PT/OT tomorrow, and we discussed that it is imperative that he gives a good effort so they will consider him as a candidate for rehab. He is agreeable to this plan. On exam, the LLE incision is c/d/i with scant serosanguinous drainage on the dressing, no active bleeding noted, no bruising, no erythema or induration over stump, minimal swelling noted. Cleaned incision thoroughly, covered with xer oform, fluffs, kerlex, chuy wrap. Patient tolerated well. Plan: Dressing changes daily Wean SHELL MACHINE OPERATOR as tolerated PT/OT, OOB, and rehab consult High protein diet to help with postop healing VS, I&O, 24H, Fishbone Vital Signs/I&O Vital Signs Date Time Temp Pulse Resp B/P (MAP) Pulse Ox O2 Delivery O2 Flow Rate FiO2 11/07/18 08:07 89 178/86 11/07/18 06:00 98.7 20 92 11/06/18 21:09 2.0 I&O- Last 24 Hours up to 6 AM 11/07/18 06:00 Intake Total 2655 ml Output Total 2200 ml Balance 455 ml Laboratory Data 24H LABS Laboratory Tests 2 11/06/18 16:23: Bedside Glucose (Misc Panel) 250H 11/06/18 19:55: Bedside Glucose (Misc Panel) 268H 11/07/18 06:02: Immature Granulocyte % (Auto) 3.5H, White Blood Count 16.1H, Red Blood Count 5.62, Hemoglobin 13.0L, Hematocrit 43.4, Mean Corpuscular Volume 77.2L, Mean Corpuscular Hemoglobin 23.1L, Mean Corpuscular Hemoglobin Concent 30.0L, Red Cell Distribution Width 17.8H, Platelet Count 511H, Neutrophils (%) (Auto) 80.6H, Lymphocytes (%) (Auto) 8.0L, Monocytes (%) (Auto) 6.7H, Eosinophils (%) (Auto) 0.6, Basophils (%) (Auto) 0.6, Neutrophils # (Auto) 13.0H, Lymphocytes # (Auto) 1.3L, Monocytes # (Auto) 1.1H, Eosinophils # (Auto) 0.1, Basophils # (Auto) 0.1, Nucleated Red Blood Cells % (auto) 0.0, Anion Gap 5L, Glomerular Filtration Rate 29.3L, Blood Urea Nitrogen 28H, Creatinine 2.43H, Sodium Level 136, Potassium Level 5.6H, Chloride Level 105, Carbon Dioxide Level 26, Calcium Level 9.5 11/07/18 11:55: Bedside Glucose (Misc Panel) 313H CBC/BMP Laboratory Tests 11/07/18 06:02 Red Blood Count 5.62, Mean Corpuscular Volume 77.2 L, Mean Corpuscular Hemoglobin 23.1 L, Mean Corpuscular Hemoglobin Concent 30.0 L, Red Cell Distribution Width 17.8 H, Neutrophils (%) (Auto) 80.6 H, Lymphocytes (%) (Auto) 8.0 L, Monocytes (%) (Auto) 6.7 H, Eosinophils (%) (Auto) 0.6, Basophils (%) (Auto) 0.6, Neutrophils # (Auto) 13.0 H, Lymphocytes # (Auto) 1.3 L, Monocytes # (Auto) 1.1 H, Eosinophils # (Auto) 0.1, Basophils # (Auto) 0.1, Calcium Level 9.5 Microbiology Microbiology 10/29/18 Blood Culture - Final, Complete NO GROWTH AFTER 5 DAYS 10/29/18 Blood Culture - Final, Complete NO GROWTH AFTER 5 DAYS 11/04/18 Stool Occult Blood (ANTOINE) - Final, Complete 11/02/18 Stool Occult Blood (ANTOINE) - Final, Complete 10/31/18 Stool Occult Blood (ANTOINE) - Final, Complete 10/29/18 Gram Stain - Final, Complete 10/29/18 Wound Culture - Final, Complete Enterobacter Cloacae Complex Strep Agalactiae Group B NESTOR CLARK MD Nov 07, 2018 14:18
[2018-11-07] MEDS ORDERED: diazePAM 5 MG TAB PO PRN (14:30)
[2018-11-07 19:39] LABS: CALCIUM LEVEL 9.5 MG/DL (8.5-10.1); CREATININE FOR GFR 2.31 MG/DL (0.70-1.30); GLOMERULAR FILTRATION RATE 31.1 (>56); POTASSIUM SERUM 4.5 MEQ/L (3.5-5.1)
[2018-11-07] MEDS: ATORVASTATIN 10 MG TAB PO SCH (21:27)
[2018-11-07] MEDS: CETIRIZINE (ZyrTEC) 10 MG TAB PO SCH (21:27)
[2018-11-07] MEDS: AMITRIPTYLINE 25 MG TAB PO SCH (21:27)
[2018-11-07 22:00] VITALS: BP 178/85
[2018-11-08 00:17] LABS: CALCIUM LEVEL 9.8 MG/DL (8.5-10.1); CREATININE FOR GFR 2.19 MG/DL (0.70-1.30); GLOMERULAR FILTRATION RATE 33.1 (>56); POTASSIUM SERUM 5.3 MEQ/L (3.5-5.1)
[2018-11-08 02:00] VITALS: BP 145/80
[2018-11-08] MEDS: SODIUM CHLORIDE 0.9% INJ 10 ML SYR IV SCH ×2 (05:08→17:24)
[2018-11-08 05:27] VITALS: O2SAT 88
[2018-11-08] MEDS: MORPHINE 1MG/ML IN 0.9% NACL 100ML IV BAG IV PRN ×2 (05:52→18:57)
[2018-11-08 06:00] VITALS: BP 165/81
[2018-11-08 06:00] LABS: BASO # 0.2 10^3/uL (0.0-0.2); BASO % 1.3 % (0.0-1.0); EOS # 0.5 10^3/uL (0.0-0.50); EOS % 3.7 % (0.0-3.0); HEMATOCRIT 41.8 % (42.0-52.0); HEMOGLOBIN 12.3 g/dl (13.5-17.5); LYMPH # 1.8 10^3/uL (1.5-4.5); LYMPH % 14.3 % (24.0-44.0); MEAN CORPUSCULAR HEMOGLOBIN 23.1 pg (27.0-33.0); MEAN CORPUSCULAR HGB CONC 29.4 g/dl (32.0-36.5); MEAN CORPUSCULAR VOLUME 78.4 fl (80.0-96.0); MONO # 1.1 10^3/uL (0.0-0.8); MONO % 8.8 % (0.0-5.0); NEUTROPHILS # 8.6 10^3/uL (1.8-7.7); NEUTROPHILS % 69.7 % (36.0-66.0); PLATELET COUNT, AUTOMATED 415 10^3/uL (150-450); RED BLOOD COUNT 5.33 10^6/uL (4.30-6.10); WHITE BLOOD COUNT 12.4 10^3/uL (4.0-10.0)
[2018-11-08 06:28] LABS: CALCIUM LEVEL 9.9 MG/DL (8.5-10.1); CREATININE FOR GFR 2.26 MG/DL (0.70-1.30); GLOMERULAR FILTRATION RATE 31.9 (>56); POTASSIUM SERUM 4.7 MEQ/L (3.5-5.1)
[2018-11-08] MEDS: NS 1,000 ML IV SCH ×4 (08:30→19:25)
[2018-11-08] MEDS: PIPERACILLIN/TAZOBACTAM SOD 4.5 GM in D5W MINI-BAG PLUS 50 ML IV SCH ×2 (09:17→15:28)
[2018-11-08] MEDS: amLODIPine 5 MG TAB PO SCH ×2 (09:18→21:47)
[2018-11-08] MEDS: CARVedilol 12.5 MG TAB PO SCH ×2 (09:18→21:46)
[2018-11-08] MEDS: HumaLOG INSULIN (NovoLOG) PER UNIT SC SCH ×4 (09:18→21:00)
[2018-11-08] MEDS: PANTOPRAZOLE 40MG TAB (PROTONIX) PO SCH (09:19)
[2018-11-08] MEDS: buPROPion **XL** TABLET 150MG (WELLBUTRIN XL) PO SCH (09:19)
--- NOTE | 2018-11-08 11:59 | IPNPDOC ---
Date Seen The patient was seen on 11/08/18. Progress Note Patient seen and examined POD #2 s/p L BKA. Laying in bed comfortably. No signs of distress. Patient and I had a long discussion about his narcotic needs yesterday and again today. He was on a very high regimen of narcotics pre-op, and per hospitalist he is still in 10/10 pain despite very high dose LABELING SPECIALIST started postop. I again d/w patient that neuropathic pain is not optimally treated with narcotics, but since he was on such high doses pre-op, he now has a high tolerance and this diminishes his narcotic benefit for his post-op pain. He is very resistent to even considering any analgesia other than more narcotics, even though he doesn't actually seem to be in much pain. I started low dose valium yesterday for muscle relaxation and neuropathic pain relief, and he said it helped with the nerve pain quite a bit. He hasn't taken it today, and forgets to ask for it. We will try a higher dose, scheduled, and see if we can try to start weaning down his LABELING SPECIALIST use despite his loud resistance to this. I'd like him to be off the LABELING SPECIALIST soon so he will be ready for rehab if accepted. We then spoke about his refusal to work with PT/OT again today. He appears very comfortable and relaxed, and barely complained about pain with the dressing change, so I am confident he has adequate analgesia for activity with PT/OT. RN reports that last night the patient got himself into his wheelchair while alone in his room, completely unassisted, and rolled himself and his LABELING SPECIALIST IV pole down to the nursing station. However today, he is crying and yelling at me about how he cannot possibly work with PT/OT, saying that OT came "at the crack of anastasiia" and stood him at the bedside and he could not stand and fell back on the bed. When asked how he got into the wheelchair by himself, he just again started crying and saying how we "weren't listening" and he could not possibly get up today due to pain. Then, a few minutes later he says he was very comfortable prior to PT coming in to ask if he wanted to get OOB. So there are a lot of inconsistencies in his perceptions of pain and progress. I again strongly encouraged him to agree to participation with PT/OT tomorrow, and we discussed that it is imperati ve that he gives a good effort so they will consider him as a candidate for rehab. Otherwise, may need referral for SNF. He is begrudgingly agreeable to this plan. On exam, the LLE incision is c/d/i with scant serosanguinous drainage on the dressing, no active bleeding noted, no bruising, no erythema or induration over stump, minimal swelling noted. Cleaned incision thoroughly, covered with xerof orm, fluffs, kerlex, chuy wrap. Patient tolerated well. Leg elevated. Plan: Dressing changes daily. Wean LABELING SPECIALIST as tolerated. Changed valium to 10mg Q6H scheduled. PT/OT, OOB, and rehab consult, although pt is thus far not agreeable to participate in therapy despite long discussions about the need and benefits. May need referral for SNF if not a candidate for rehab. High protein diet to help with postop healing. VS, I&O, 24H, Fishbone Vital Signs/I&O Vital Signs Date Time Temp Pulse Resp B/P (MAP) Pulse Ox O2 Delivery O2 Flow Rate FiO2 11/08/18 09:18 80 165/81 11/08/18 06:00 98.4 16 90 2.0 11/08/18 05:27 Nasal Cannula I&O- Last 24 Hours up to 6 AM 11/08/18 06:00 Intake Total 1765 ml Output Total 3325 ml Balance -1560 ml Laboratory Data 24H LABS Laboratory Tests 2 11/07/18 11:55: Bedside Glucose (Misc Panel) 313H 11/07/18 16:13: Bedside Glucose (Misc Panel) 253H 11/07/18 19:05: Anion Gap 6L, Glomerular Filtration Rate 31.1L, Blood Urea Nitrogen 25H, Creatinine 2.31H, Sodium Level 138, Potassium Level 4.5, Chloride Level 105, Carbon Dioxide Level 27, Calcium Level 9.5 11/07/18 21:22: Bedside Glucose (Misc Panel) 299H 11/07/18 23:39: Anion Gap 4L, Glomerular Filtration Rate 33.1L, Blood Urea Nitrogen 24H, Creatinine 2.19H, Sodium Level 140, Potassium Level 5.3H, Chloride Level 106, Carbon Dioxide Level 30, Calcium Level 9.8 11/08/18 05:37: Anion Gap 3L, Glomerular Filtration Rate 31.9L, Blood Urea Nitrogen 23H, Creatinine 2.26H, Sodium Level 140, Potassium Level 4.7, Chloride Level 107, Carbon Dioxide Level 30, Calcium Level 9.9, Immature Granulocyte % (Auto) 2.2, White Blood Count 12.4H, Red Blood Count 5.33, Hemoglobin 12.3L, Hematocrit 41.8L, Mean Corpuscular Volume 78.4L, Mean Corpuscular Hemoglobin 23.1L, Mean Corpuscular Hemoglobin Concent 29.4L, Red Cell Distribution Width 17.7H, Platelet Count 415, Neutrophils (%) (Auto) 69.7H, Lymphocytes (%) (Auto) 14.3L, Monocytes (%) (Auto) 8.8H, Eosinophils (%) (Auto) 3.7H, Basophils (%) (Auto) 1.3H, Neutrophils # (Auto) 8.6H, Lymphocytes # (Auto) 1.8, Monocytes # (Auto) 1.1H, Eosinophils # (Auto) 0.5, Basophils # (Auto) 0.2, Nucleated Red Blood Cells % (auto) 0.0 CBC/BMP Laboratory Tests 11/07/18 19:05 Calcium Level 9.5 11/07/18 23:39 Calcium Level 9.8 11/08/18 05:37 Calcium Level 9.9, Red Blood Count 5.33, Mean Corpuscular Volume 78.4 L, Mean Corpuscular Hemoglobin 23.1 L, Mean Corpuscular Hemoglobin Concent 29.4 L, Red Cell Distribution Width 17.7 H, Neutrophils (%) (Auto) 69.7 H, Lymphocytes (%) (Auto) 14.3 L, Monocytes (%) (Auto) 8.8 H, Eosinophils (%) (Auto) 3.7 H, Basophils (%) (Auto) 1.3 H, Neutrophils # (Auto) 8.6 H, Lymphocytes # (Auto) 1.8, Monocytes # (Auto) 1.1 H, Eosinophils # (Auto) 0.5, Basophils # (Auto) 0.2 Microbiology Microbiology 10/29/18 Blood Culture - Final, Complete NO GROWTH AFTER 5 DAYS 10/29/18 Blood Culture - Final, Complete NO GROWTH AFTER 5 DAYS 11/04/18 Stool Occult Blood (ANTOINE) - Final, Complete 11/02/18 Stool Occult Blood (ANTOINE) - Final, Complete 10/31/18 Stool Occult Blood (ANTOINE) - Final, Complete 10/29/18 Gram Stain - Final, Complete 10/29/18 Wound Culture - Final, Complete Enterobacter Cloacae Complex Strep Agalactiae Group B NESTOR CLARK MD Nov 08, 2018 11:59
--- NOTE | 2018-11-08 12:51 | IPNPDOC ---
Date Seen The patient was seen on 11/08/18. Progress Note Subjective: despite increasing doses of morphine gum worker pump, pt still c/o 8/10 pain on pain scale . slept well. working with physical therapy. still requesting motorized wheelchair at hospital discharge. pfs consulted for handicap housing and help with getting an electric wheelchair. Objective Physical Examination vitals: pls see below General Exam: Positive: Alert, Cooperative, Mild Distress Eye Exam: Positive: PERRLA, Conjunctiva & lids normal, EOMI; Negative: Sclera icteric, Ptosis ENT Exam: Positive: Atraumatic, Mucous membr. moist/pink, Pharynx Normal, Tongue Midline, Nares Patent; Negative: Pharyngeal Edema Neck Exam: Positive: Supple, +2 carotid pulse wo bruit; Negative: JVD, thyromegaly, Lymphadenopathy Chest Exam: Positive: Clear to auscultation, Normal air movement; Negative: Rales, Rhonchi, Wheezing, Diminished Heart Exam: Positive: Rate Normal, Regular Rhythm, Normal S1, Normal S2; Negative: Gallops, Murmurs, Rubs Abdomen Exam: Positive: BS Hypoactive, Soft, Tenderness (to palpation in the lower abdomen around the healed, clean, dry, intact hernia incision, no appreciable hernia); Negative: Hepatospenomegaly, Mass, Hernia Extremity Exam: [place] BKA [id number] bandaged.no edema or cyanosis Skin Exam: Positive: Breakdown (as noted above), Lesion (as noted above); Negative: Rash Neuro Exam: Positive: Normal Speech, Cranial Nerves 3-12 NL Psych Exam: Positive: Oriented x 3 laboratory data, imaging studies, microbiology: pls see below. reviewed. Assessment /Plan Mr. Herrera is a 58-year-old male who presents to [facility]'s Emergency Department with left leg pain. 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 He is being followed at the wound clinic and dr Ivory for his recurring heel and foot wounds for several years. he was admitted here from 06/16/18 to 08/21/18 then from 10/04/18 to 10/13/18 for this ulcer. He had been to his appointment at the wound care center on 10/22/2018 that had a wound VAC in place. However, the wound VAC was not securing correctly and adjustments were made. His wound at that time was debrided, hemostasis was obtained, and the wound was dressed with hydrofera blue heavy drainage and the NPWT was applied. He returned to the wound care center on 10/29/2018 and it was noted that he left leg looked significantly worse with possible signs of lymphangitis and swelling. He was instructed to present to the Emergency Department for further evaluation. The patient states that after his debridement on Thursday his wound continued to bleed. By Thursday he developed cold chills with fever or night sweats. He stayed in bed all day. He describes a burning/stabbing pain in his foot extending up to his thigh since the extensive debridement with associated swelling. He was admitted left foot cellulitis, lymphangitis with chronic left heel ulcer and Janie on CKD. 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 postop gum worker Morphine for better pain control to continue 5 days abx postop. "I'm not going home until this leg is all healed up from the amputation. I'm okay with that so long as I have a prosthesis, and maybe an electric wheelchair. I need handicap housing. My place won't work once I get surgery. " PFS consulted for outpt housing and electric wheelchair assistance. PT/OT consulted JANIE on CKD Baseline creatinine 1.8 continue to monitor. held rupal inhibitor trial of ivfluids, serial mp. Hyperkalemia 12lead ekg patiromer may need repeat doses of patiromer calcium gluconate if no improvement, may need transfer to icu for bicarbonate iv gtt. anxiety prn xanax s/p ativan preoperatively 11/06/18 Abdominal pain resolved. Urinalysis is negative. Abdominal exam benign probably from old hernia repair with mesh hich he thinks sometimes bothers him still. Surgery in 2005 DVT right upper extremity held preop for left bka 11/06/18 restarted on iv heparin gtt DM with diabetic neuropathy became hypoglycemic 11/05/18 while npo Levemir 60 units SQ BID (patient is on Levemir 68 units SQ daily and insulin Glargine 48 units SQ QHS) SSI AC/HS, FSBS AC/HS, hypoglycemic protocol 2g sodium + consistent carbohydrate diet Pt requests increasing carbohydrates in his diet. "It's just not enough for me. I need more bread. I'm a big yu, you know." bake room worker consulted for calorie count and diet recommendations BMI 38.1 Obesity Pt requests increasing carbohydrates in his diet. "It's just not enough for me. I need more bread. I'm a big yu, you know." bake room worker consulted for calorie count and diet recommendations SARAH home cpap to resume high risk for hypercapnia in light of morphine gum worker. Hypertension BP controlled now that pain is controlled. may need to hold RUPAL inhibitor if creatinine worsens. Plan/VTE VTE Prophylaxis Ordered?: Yes (Heparin drip) disposition: will need handicap housing. pfs consutled. VS, I&O, 24H, Fishbone Vital Signs/I&O Vital Signs Date Time Temp Pulse Resp B/P (MAP) Pulse Ox O2 Delivery O2 Flow Rate FiO2 11/08/18 09:18 80 165/81 11/08/18 06:00 98.4 16 90 2.0 11/08/18 05:27 Nasal Cannula I&O- Last 24 Hours up to 6 AM 11/08/18 06:00 Intake Total 1765 ml Output Total 3325 ml Balance -1560 ml Laboratory Data 24H LABS Laboratory Tests 2 11/07/18 16:13: Bedside Glucose (Misc Panel) 253H 11/07/18 19:05: Anion Gap 6L, Glomerular Filtration Rate 31.1L, Blood Urea Nitrogen 25H, Creatinine 2.31H, Sodium Level 138, Potassium Level 4.5, Chloride Level 105, Carbon Dioxide Level 27, Calcium Level 9.5 11/07/18 21:22: Bedside Glucose (Misc Panel) 299H 11/07/18 23:39: Anion Gap 4L, Glomerular Filtration Rate 33.1L, Blood Urea Nitrogen 24H, Creatinine 2.19H, Sodium Level 140, Potassium Level 5.3H, Chloride Level 106, Carbon Dioxide Level 30, Calcium Level 9.8 11/08/18 05:37: Immature Granulocyte % (Auto) 2.2, White Blood Count 12.4H, Red Blood Count 5 .33, Hemoglobin 12.3L, Hematocrit 41.8L, Mean Corpuscular Volume 78.4L, Mean Corpuscular Hemoglobin 23.1L, Mean Corpuscular Hemoglobin Concent 29.4L, Red Cell Distribution Width 17.7H, Platelet Count 415, Neutrophils (%) (Auto) 69.7H, Lymphocytes (%) (Auto) 14.3L, Monocytes (%) (Auto) 8.8H, Eosinophils (%) (Auto) 3.7H, Basophils (%) (Auto) 1.3H, Neutrophils # (Auto) 8.6H, Lymphocytes # (Auto) 1.8, Monocytes # (Auto) 1.1H, Eosinophils # (Auto) 0.5, Basophils # (Auto) 0.2, Nucleated Red Blood Cells % (auto) 0.0, Anion Gap 3L, Glomerular Filtration Rate 31.9L, Blood Urea Nitrogen 23H, Creatinine 2.26H, Sodium Level 140, Potassium Level 4.7, Chloride Level 107, Carbon Dioxide Level 30, Calcium Level 9.9 CBC/BMP Laboratory Tests 11/07/18 19:05 Calcium Level 9.5 11/07/18 23:39 Calcium Level 9.8 11/08/18 05:37 Calcium Level 9.9, Red Blood Count 5.33, Mean Corpuscular Volume 78.4 L, Mean Corpuscular Hemoglobin 23.1 L, Mean Corpuscular Hemoglobin Concent 29.4 L, Red Cell Distribution Width 17.7 H, Neutrophils (%) (Auto) 69.7 H, Lymphocytes (%) (Auto) 14.3 L, Monocytes (%) (Auto) 8.8 H, Eosinophils (%) (Auto) 3.7 H, Basophils (%) (Auto) 1.3 H, Neutrophils # (Auto) 8.6 H, Lymphocytes # (Auto) 1.8, Monocytes # (Auto) 1.1 H, Eosinophils # (Auto) 0.5, Basophils # (Auto) 0.2 Microbiology Microbiology 10/29/18 Blood Culture - Final, Complete NO GROWTH AFTER 5 DAYS 10/29/18 Blood Culture - Final, Complete NO GROWTH AFTER 5 DAYS 11/04/18 Stool Occult Blood (ANTOINE) - Final, Complete 11/02/18 Stool Occult Blood (ANTOINE) - Final, Complete 10/31/18 Stool Occult Blood (ANTOINE) - Final, Complete 10/29/18 Gram Stain - Final, Complete 10/29/18 Wound Culture - Final, Complete Enterobacter Cloacae Complex Strep Agalactiae Group B DIPIKA ESPINOSA MD Nov 08, 2018 12:18
[2018-11-08] MEDS: diazePAM 5 MG TAB PO SCH ×2 (13:17→17:23)
[2018-11-08 16:53] VITALS: BP 181/87
[2018-11-08] MEDS: CETIRIZINE (ZyrTEC) 10 MG TAB PO SCH (21:47)
[2018-11-08] MEDS: ATORVASTATIN 10 MG TAB PO SCH (21:47)
[2018-11-08] MEDS: AMITRIPTYLINE 25 MG TAB PO SCH (21:47)
[2018-11-08 22:00] VITALS: BP 174/76
[2018-11-09] MEDS: PIPERACILLIN/TAZOBACTAM SOD 4.5 GM in D5W MINI-BAG PLUS 50 ML IV SCH ×4 (00:08→23:39)
[2018-11-09] MEDS: diazePAM 5 MG TAB PO SCH ×3 (00:08→12:43)
[2018-11-09 06:00] VITALS: BP 179/75
[2018-11-09] MEDS: SODIUM CHLORIDE 0.9% INJ 10 ML SYR IV SCH ×2 (06:03→17:42)
[2018-11-09] MEDS: NS 1,000 ML IV SCH (06:27)
[2018-11-09 07:56] LABS: BASO # 0.1 10^3/uL (0.0-0.2); BASO % 1.3 % (0.0-1.0); EOS # 0.5 10^3/uL (0.0-0.50); EOS % 5.2 % (0.0-3.0); HEMATOCRIT 42.2 % (42.0-52.0); HEMOGLOBIN 12.4 g/dl (13.5-17.5); LYMPH # 1.6 10^3/uL (1.5-4.5); LYMPH % 15.3 % (24.0-44.0); MEAN CORPUSCULAR HEMOGLOBIN 23.8 pg (27.0-33.0); MEAN CORPUSCULAR HGB CONC 29.4 g/dl (32.0-36.5); MEAN CORPUSCULAR VOLUME 81.2 fl (80.0-96.0); MONO # 0.8 10^3/uL (0.0-0.8); MONO % 7.6 % (0.0-5.0); NEUTROPHILS # 7.1 10^3/uL (1.8-7.7); NEUTROPHILS % 69.2 % (36.0-66.0); PLATELET COUNT, AUTOMATED 367 10^3/uL (150-450); WHITE BLOOD COUNT 10.3 10^3/uL (4.0-10.0)
[2018-11-09 08:17] LABS: CALCIUM LEVEL 10.1 MG/DL (8.5-10.1); CREATININE FOR GFR 2.11 MG/DL (0.70-1.30); GLOMERULAR FILTRATION RATE 34.5 (>56); POTASSIUM SERUM 4.9 MEQ/L (3.5-5.1)
--- NOTE | 2018-11-09 08:52 | IPNPDOC ---
Date Seen The patient was seen on 11/09/18. Progress Note Patient seen and examined postop day #3 status post left below-knee amputation. He is resting comfortably in the bed and barely woke up for his dressing change this morning. Despite being groggy and not even opening his eyes, he claims to be in 10 out of 10 pain. I told him that at this point he appears very comfortable and difficult to arouse, and we will decrease the SPRIGGER today and start weaning this off. He does stop in the middle of the conversation. When I tried to wake him up again after the dressing was done to discuss working with physical therapy, he says that he is unable to do that he is just in too much pain and then dosed off again. The nurse was at the bedside and said that the patient was able to get up and pivot to a wheelchair and pivot to the toilet without difficulty, so when I discussed this with the patient and the fact that he got himself into his wheelchair on the night after surgery, and that he should be able to do some mild work with physical therapy today, he said it was out of the question and went back to sleep. We will continue to encourage him to get up out of bed and do activity as tolerated. Unfortunately, he will not be candidate for rehabilitation if he does not work with physical and occupational therapy. On exam, the left low knee amputation stump is clean dry and intact. There is very scant serosanguineous drainage from the lateral aspect of the incision, but the rest of the incision is clean with no drainage today. The incision was c arefully cleaned and dried and Xeroform gauze and Omar wrap were replaced. I did note some very mild erythema on the anterior aspect of the leg, but the posterior flap looked excellent. Erythema was mild, and not accompanied by induration. However, due to the chronic nature of his infection and the somewhat grayish discoloration of the muscle at amputation, I think a few more days of antibiotics would be helpful while the patient is in the hospital. The other factors involved in wound healing are tight glucose control, high-protein healthy diet, elevation, and careful wound care. The patient is struggling with a healthy diet aspect, and has a wheelchair full of bags of potato chips. He says this is the only thing that taste good to him right now. We had a discussion about protein and the need for high-protein diet to give the body building blocks for healing, but the patient dosed off in the middle of that conversation as well. Plan: Continue to encourage out of bed, PT, OT. Continue to encourage high- protein diet. We will wean SPRIGGER today. Continue with local wound care. VS, I&O, 24H, Fishbone Vital Signs/I&O Vital Signs Date Time Temp Pulse Resp B/P (MAP) Pulse Ox O2 Delivery O2 Flow Rate FiO2 11/09/18 06:00 98.6 73 16 179/75 (109) 90 2.0 11/09/18 01:44 Full Face Mask I&O- Last 24 Hours up to 6 AM 11/09/18 06:00 Intake Total 2030 ml Output Total 1000 ml Balance 1030 ml Laboratory Data 24H LABS Laboratory Tests 2 11/08/18 12:16: Bedside Glucose (Misc Panel) 252H 11/08/18 17:14: Bedside Glucose (Misc Panel) 241H 11/08/18 20:09: Bedside Glucose (Misc Panel) 194H 11/09/18 04:52: Bedside Glucose (Misc Panel) 187H 11/09/18 07:42: Immature Granulocyte % (Auto) 1.4, White Blood Count 10.3H, Red Blood Count 5.20, Hemoglobin 12.4L, Hematocrit 42.2, Mean Corpuscular Volume 81.2, Mean Corpuscular Hemoglobin 23.8L, Mean Corpuscular Hemoglobin Concent 29.4L, Red Cell Distribution Width 17.7H, Platelet Count 367, Neutrophils (%) (Auto) 69.2H, Lymphocytes (%) (Auto) 15.3L, Monocytes (%) (Auto) 7.6H, Eosinophils (%) (Auto) 5.2H, Basophils (%) (Auto) 1.3H, Neutrophils # (Auto) 7.1, Lymphocytes # (Auto) 1.6, Monocytes # (Auto) 0.8, Eosinophils # (Auto) 0.5, Basophils # (Auto) 0.1, Nucleated Red Blood Cells % (auto) 0.0, Anion Gap 1L, Glomerular Filtration Rate 34.5L, Blood Urea Nitrogen 23H, Creatinine 2.11H, Sodium Level 136, Potassium Level 4.9, Chloride Level 107, Carbon Dioxide Level 28, Calcium Level 10.1 CBC/BMP Laboratory Tests 11/09/18 07:42 Red Blood Count 5.20, Mean Corpuscular Volume 81.2, Mean Corpuscular Hemoglobin 23.8 L, Mean Corpuscular Hemoglobin Concent 29.4 L, Red Cell Distribution Width 17.7 H, Neutrophils (%) (Auto) 69.2 H, Lymphocytes (%) (Auto) 15.3 L, Monocytes (%) (Auto) 7.6 H, Eosinophils (%) (Auto) 5.2 H, Basophils (%) (Auto) 1.3 H, Neutrophils # (Auto) 7.1, Lymphocytes # (Auto) 1.6, Monocytes # (Auto) 0.8, Eosinophils # (Auto) 0.5, Basophils # (Auto) 0.1, Calcium Level 10.1 Microbiology Microbiology 11/04/18 Stool Occult Blood (ANTOINE) - Final, Complete 11/02/18 Stool Occult Blood (ANTOINE) - Final, Complete 10/31/18 Stool Occult Blood (ANTOINE) - Final, Complete NESTOR CLARK MD Nov 09, 2018 08:52
[2018-11-09 09:00] VITALS: O2SAT 93
[2018-11-09] MEDS: CARVedilol 12.5 MG TAB PO SCH ×2 (10:06→22:02)
[2018-11-09] MEDS: amLODIPine 5 MG TAB PO SCH (10:07)
[2018-11-09] MEDS: PANTOPRAZOLE 40MG TAB (PROTONIX) PO SCH (10:07)
[2018-11-09] MEDS: HumaLOG INSULIN (NovoLOG) PER UNIT SC SCH ×4 (10:08→22:04)
[2018-11-09] MEDS: buPROPion **XL** TABLET 150MG (WELLBUTRIN XL) PO SCH (10:09)
[2018-11-09] MEDS ORDERED: MORPHINE 1MG/ML IN 0.9% NACL 100ML IV BAG IV PRN (12:00)
--- NOTE | 2018-11-09 12:40 | IPN ---
DATE: 11/08/2018 Mr. Herrera had his below knee amputation done on Thursday. He complains of pain at the stump site. He has no fever or chills. No nausea, vomiting or diarrhea. He feels the pain is out of control still. He has been afebrile. Temperature is 98.4, pulse 80, respirations 18, blood pressure 174/76, O2 sat 93% on 2 liters nasal cannula. He denies any cough or shortness of breath. He does not know why he is using oxygen. LABS: White count is 12.4, hemoglobin 12.3, hematocrit 41.8, platelets 415, 69% neutrophils, 15% lymphocytes, 8% monocytes. Sodium 140, potassium 4.7, chloride 107, bicarb 30, BUN 23, creatinine 2.26, glucose 250, calcium 9.9. PHYSICAL EXAMINATION Heart normal S1-S2. No murmurs. Lungs are clear. No wheezes or rhonchi. Abdomen obese, soft, nontender. Left leg below knee amputation, the dressing was not changes as it had been recently done today. IMPRESSION: 1. Left lower extremity cellulitis with chronic osteomyelitis of the calcaneus status post below-knee amputation due to chronic infection for the past 2 years. The patient is doing well, currently on IV Zosyn. 2. Severe pain status post BKA pain management. Currently pain is managed by primary team. 3. Chronic kidney disease. Creatinine has increased slightly compared to last week from 1.72 to 2.2. Probably related to surgery. PLAN: Continue IV Zosyn for 5 days postoperatively then discontinue on 11/11.
[2018-11-09 14:00] VITALS: BP 160/74
[2018-11-09] MEDS ORDERED: diazePAM 5 MG TAB PO PRN (17:45)
--- NOTE | 2018-11-09 19:36 | IPNPDOC ---
Subjective Date Seen The patient was seen on 11/09/18. Subjective Chief Complaint/HPI The patient is sleeping quietly. He does not have complaints except for pain in the leg. No other complaints. Denies a fever, chills, nausea, vomiting, or diarrhea. General: Denies: ROS Unobtainable, Chills, Night Sweats, Fatigue, Malaise, Normal Appetite, Other Symptoms Constitutional: Denies: Chills, Fever, Malaise, Night Sweats, Weakness, Fatigue, Weight Loss, Lethargy, Other Eyes: Denies: Pain, Vision change, Conjunctivae inflammation, Eyelid inflammation, Redness, Other ENT: Denies: Head Aches, Ear Pain, Dysphagia, Sinus Congestion, Post Nasal Dr ip, Sore Throat, Epistaxis, Other Symptoms Skin: Denies: Rash, Lesions, Jaundice, Bruising, Itching, Dry, Breakdown, Nail Changes, Other Pulmonary: Denies: Dyspnea, Cough, Pleuritic Chest Pain, Other Symptoms Cardiovascular: Denies: Chest Pain, Palpitations, Orthopnea, Paroxysmal Noc. Dyspnea, Edema, Lt Headedness, Other Symptoms Gastrointestinal: Denies: Nausea, Vomiting, Abdominal Pain, Diarrhea, Constipation, Melena, Hematochezia, Other Symptoms Genitourinary: Denies: Dysuria, Frequency, Incontinence, Hematuria, Retention, Other Symptoms Hematologic: Denies: Bruising, Bleeding Excessively, Petecchia, Purpura, Enlarged Lymph Nodes, Other Hematologic Endocrine: Denies: Polydipsia, Polyphagia, Polyuria, Heat Intolerance, Cold Intolerance, Other Endocrine Sx Musculoskeletal: Reports: Leg Pain Neurological: Denies: Weakness, Numbness, Incoordination, Change in speech, Confusion, Seizures, Other Symptoms Psych: Denies: Mood Normal, Anxiety, Depression, Memory Issues, Thoughts of Self Harm, Anger, Thoughts of Harming Other, Other Psych Objective Physical Examination General Exam: Positive: Alert, Cooperative, Mild Distress Eye Exam: Positive: PERRLA, Conjunctiva & lids normal, EOMI; Negative: Sclera icteric, Ptosis ENT Exam: Positive: Atraumatic, Mucous membr. moist/pink, Pharynx Normal, Tongue Midline, Nares Patent; Negative: Pharyngeal Edema Neck Exam: Positive: Supple, +2 carotid pulse wo bruit; Negative: JVD, thyromegaly, Lymphadenopathy Chest Exam: Positive: Clear to auscultation, Normal air movement; Negative: Rales, Rhonchi, Wheezing, Diminished Heart Exam: Positive: Rate Normal, Regular Rhythm, Normal S1, Normal S2; Negative: Gallops, Murmurs, Rubs Abdomen Exam: Positive: BS Hypoactive, Soft, Tenderness (to palpation in the lower abdomen around the healed, clean, dry, intact hernia incision, no appreciable hernia); Negative: Hepatospenomegaly, Mass, Hernia Extremity Exam: Positive: Edema (non-pitting, left lower leg), Normal pulses, Swelling, Other (spreading erythema noted around left heel, circular unstageable wound ulcer on left heel that is 5m in greatest diameter with eschar noted in the base, macerated periwound); Negative: Clubbing, Cyanosis, Tenderness Skin Exam: Positive: Breakdown (as noted above), Lesion (as noted above); Negative: Rash Neuro Exam: Positive: Normal Speech, Cranial Nerves 3-12 NL Psych Exam: Positive: Oriented x 3 Assessment /Plan Assessment # Left heel/leg cellulitis and possible underlying osteomyelitis 2/2 chronic wound ulcer - s/p left BKA 11/06/18 - Continue zosyn until 11/11/18 - PT/OT consulted # JANIE on CKD - Continue to monitor. # DVT right upper extremity - Continue iv heparin gtt, will be converted to PO tomorrow. # DM with diabetic neuropathy - Cont. levemir 60 units SQ BID (patient is on Levemir 68 units SQ daily and insulin Glargine 48 units SQ QHS) - SSI AC/HS, FSBS AC/HS, hypoglycemic protocol # Morbid obesity BMI 38.1 - Pt requests increasing carbohydrates in his diet. "It's just not enough for me. I need more bread. I'm a big uy, you know." direct marketing representative consulted for calorie count and diet recommendations - SARAH - home cpap to resume - high risk for hypercapnia in light of morphine transfer station attendant. - Hypertension - d/c amlodipine. Will start nifedipine 60 from tonight. Follow BP. cont. home meds. Plan/VTE VTE Prophylaxis Ordered?: Yes (Heparin drip) Plan IVF: Initiate (NS @ 125 mLs/hr) Diet: Continue Current (2g sodium) Activity: Continue Current (activity as tolerated) Therapy: PT Medications: Increase Pain Meds (Morphine 2mg IV Q2HP), Start Antibiotics (Vancomycin 1gm IV, Zosyn 4.5g IV Q8H) Diagnostics: Check Labs, Repeat Labs in AM, Obtain Cultures (blood, urine), MRI (left foot) Anticipated Discharge: Home With Services VS, I&O, 24H, Tali Vital Signs/I&O Vital Signs Date Time Temp Pulse Resp B/P (MAP) Pulse Ox O2 Delivery O2 Flow Rate FiO2 11/09/18 14:00 96.2 84 16 160/74 (102) 90 11/09/18 09:00 Nasal Cannula 3.0 I&O- Last 24 Hours up to 6 AM 11/09/18 06:00 Intake Total 2030 ml Output Total 1000 ml Balance 1030 ml Laboratory Data 24H LABS Laboratory Tests 2 11/08/18 20:09: Bedside Glucose (Misc Panel) 194H 11/09/18 04:52: Bedside Glucose (Misc Panel) 187H 11/09/18 07:42: Immature Granulocyte % (Auto) 1.4, White Blood Count 10.3H, Red Blood Count 5.20, Hemoglobin 12.4L, Hematocrit 42.2, Mean Corpuscular Volume 81.2, Mean Corpuscular Hemoglobin 23.8L, Mean Corpuscular Hemoglobin Concent 29.4L, Red Cell Distribution Width 17.7H, Platelet Count 367, Neutrophils (%) (Auto) 69.2H, Lymphocytes (%) (Auto) 15.3L, Monocytes (%) (Auto) 7.6H, Eosinophils (%) (Auto) 5.2H, Basophils (%) (Auto) 1.3H, Neutrophils # (Auto) 7.1, Lymphocytes # (Auto) 1.6, Monocytes # (Auto) 0.8, Eosinophils # (Auto) 0.5, Basophils # (Auto) 0.1, Nucleated Red Blood Cells % (auto) 0.0, Anion Gap 1L, Glomerular Filtration Rate 34.5L, Blood Urea Nitrogen 23H, Creatinine 2.11H, Sodium Level 136, Potassium Level 4.9, Chloride Level 107, Carbon Dioxide Level 28, Calcium Level 10.1 11/09/18 11:38: Bedside Glucose (Misc Panel) 242H 11/09/18 17:15: Bedside Glucose (Misc Panel) 306H CBC/BMP Laboratory Tests 11/09/18 07:42 Red Blood Count 5.20, Mean Corpuscular Volume 81.2, Mean Corpuscular Hemoglobin 23.8 L, Mean Corpuscular Hemoglobin Concent 29.4 L, Red Cell Distribution Width 17.7 H, Neutrophils (%) (Auto) 69.2 H, Lymphocytes (%) (Auto) 15.3 L, Monocytes (%) (Auto) 7.6 H, Eosinophils (%) (Auto) 5.2 H, Basophils (%) (Auto) 1.3 H, Neutrophils # (Auto) 7.1, Lymphocytes # (Auto) 1.6, Monocytes # (Auto) 0.8, Eosinophils # (Auto) 0.5, Basophils # (Auto) 0.1, Calcium Level 10.1 Microbiology Microbiology 11/04/18 Stool Occult Blood (ANTOINE) - Final, Complete 11/02/18 Stool Occult Blood (ANTOINE) - Final, Complete 10/31/18 Stool Occult Blood (ANTOINE) - Final, Complete MILLI MANDEL MD Nov 09, 2018 19:36
[2018-11-09 20:00] VITALS: BP 164/72
[2018-11-09] MEDS ORDERED: NIFEdipine 30 MG XL TAB PO ONE (21:00)
[2018-11-09 22:00] VITALS: O2SAT 91
[2018-11-09] MEDS: AMITRIPTYLINE 25 MG TAB PO SCH (22:02)
[2018-11-09] MEDS: ATORVASTATIN 10 MG TAB PO SCH (22:02)
[2018-11-09] MEDS: CETIRIZINE (ZyrTEC) 10 MG TAB PO SCH (22:03)
[2018-11-10] MEDS ORDERED: CALCIUM CARBONATE 500 MG CHEW U/D PO PRN
[2018-11-10] MEDS: SODIUM CHLORIDE 0.9% INJ 10 ML SYR IV SCH ×2 (05:03→17:38)
[2018-11-10 06:00] VITALS: BP 168/72
[2018-11-10 06:04] LABS: HEMATOCRIT 43.1 % (42.0-52.0); HEMOGLOBIN 12.9 g/dl (13.5-17.5); MEAN CORPUSCULAR HEMOGLOBIN 23.4 pg (27.0-33.0); MEAN CORPUSCULAR HGB CONC 29.9 g/dl (32.0-36.5); MEAN CORPUSCULAR VOLUME 78.2 fl (80.0-96.0); PLATELET COUNT, AUTOMATED 396 10^3/uL (150-450); RED BLOOD COUNT 5.51 10^6/uL (4.30-6.10); WHITE BLOOD COUNT 10.8 10^3/uL (4.0-10.0)
[2018-11-10 06:31] LABS: CALCIUM LEVEL 9.7 MG/DL (8.5-10.1); CREATININE FOR GFR 2.12 MG/DL (0.70-1.30); GLOMERULAR FILTRATION RATE 34.3 (>56); POTASSIUM SERUM 4.8 MEQ/L (3.5-5.1)
[2018-11-10 06:36] LABS: ALBUMIN 2.5 GM/DL (3.2-5.2); BILIRUBIN,TOTAL 0.5 MG/DL (0.2-1.0); CALCIUM LEVEL 10.3 MG/DL (8.5-10.1); CREATININE FOR GFR 2.03 MG/DL (0.70-1.30); GLOMERULAR FILTRATION RATE 36.1 (>56); POTASSIUM SERUM 4.8 MEQ/L (3.5-5.1); TOTAL PROTEIN 6.6 GM/DL (6.4-8.2)
[2018-11-10] MEDS: PIPERACILLIN/TAZOBACTAM SOD 4.5 GM in D5W MINI-BAG PLUS 50 ML IV SCH ×3 (08:01→23:44)
[2018-11-10] MEDS: buPROPion **XL** TABLET 150MG (WELLBUTRIN XL) PO SCH (08:02)
[2018-11-10] MEDS: CARVedilol 12.5 MG TAB PO SCH ×2 (08:02→20:29)
[2018-11-10] MEDS: PANTOPRAZOLE 40MG TAB (PROTONIX) PO SCH (08:02)
[2018-11-10] MEDS: HumaLOG INSULIN (NovoLOG) PER UNIT SC SCH ×4 (08:03→20:22)
[2018-11-10] MEDS: NIFEdipine 30 MG XL TAB PO SCH (09:00)
[2018-11-10 09:40] VITALS: O2SAT 92
[2018-11-10 14:00] VITALS: BP 135/96
--- NOTE | 2018-11-10 16:26 | IPNPDOC ---
Date Seen The patient was seen on 11/10/18. Progress Note Mr. Herrera is a 58-year-old gentleman postoperative day 4 status post left below-knee amputation. He says he is doing a little better today and seems to be very comfortable and alert. 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 He seems to be tolerating this well. I like to restart some of his oral pain medication and hopefully wean off the CONCRETE BUILDINGS ASSEMBLER tomorrow. I again discussed with the patient the need to work with physical therapy and occupational therapy and he continues to say he is not ready but he is getting up with the nurses and I told him its no different if he gets up with physical therapy and he says he will try. Hopefully we can work on getting him to rehabilitation soon. On exam, the left BKA incision is clean dry and intact. There is a bit of bruising over the tibia plateau, and when I asked the patient about it he says that he hit it on his IV pole pretty hard. There is no skin breakdown, no hematoma, and I'm hopeful that this will not prolong his healing, but we will need to watch closely. I cleaned this thoroughly and redressed with Xeroform gauze and Kerlix and an Omar wrap. He tolerated this well with minimal discomfort during the dressing change. We continue to recommend PT OT with a goal of rehabilitation, weaning analgesia as tolerated, IV antibiotics, and we will follow closely. VS, I&O, 24H, Fishbone Vital Signs/I&O Vital Signs Date Time Temp Pulse Resp B/P (MAP) Pulse Ox O2 Delivery O2 Flow Rate FiO2 11/10/18 09:42 2.0 11/10/18 09:40 92 Nasal Cannula 11/10/18 08:02 80 152/78 11/10/18 06:00 98.1 18 I&O- Last 24 Hours up to 6 AM 11/10/18 06:00 Intake Total 2220 ml Output Total 2900 ml Balance -680 ml Laboratory Data 24H LABS Laboratory Tests 2 11/09/18 17:15: Bedside Glucose (Misc Panel) 306H 11/09/18 19:52: Bedside Glucose (Misc Panel) 272H 11/10/18 04:59: Bedside Glucose (Misc Panel) 262H 11/10/18 05:50: Nucleated Red Blood Cells % (auto) 0.0, Anion Gap 4L, Glomerular Filtration Rate 36.1L, Blood Urea Nitrogen 25H, Creatinine 2.03H, Sodium Level 138, Potassium Level 4.8, Chloride Level 107, Carbon Dioxide Level 27, Calcium Level 10.3H, Aspartate Amino Transf (AST/SGOT) 13, Alanine Aminotransferase (ALT/SGPT) 18, Alkaline Phosphatase 93, Total Bilirubin 0.5, Total Protein 6.6, Albumin 2.5L, Albumin/Globulin Ratio 0.61L 11/10/18 11:39: Bedside Glucose (Misc Panel) 314H CBC/BMP Laboratory Tests 11/10/18 05:50 Red Blood Count 5.51, Mean Corpuscular Volume 78.2 L, Mean Corpuscular Hemoglobin 23.4 L, Mean Corpuscular Hemoglobin Concent 29.9 L, Red Cell Distribution Width 17.8 H, Calcium Level 10.3 H, Aspartate Amino Transf (AST/SGOT) 13, Alanine Aminotransferase (ALT/SGPT) 18, Alkaline Phosphatase 93, Total Bilirubin 0.5, Total Protein 6.6, Albumin 2.5 L Microbiology Microbiology 11/04/18 Stool Occult Blood (ANTOINE) - Final, Complete 11/02/18 Stool Occult Blood (ANTOINE) - Final, Complete 10/31/18 Stool Occult Blood (ANTOINE) - Final, Complete NESTOR CLARK MD Nov 10, 2018 16:26
--- NOTE | 2018-11-10 16:40 | IPNPDOC ---
Subjective Date Seen The patient was seen on 11/10/18. Subjective Chief Complaint/HPI He updates that he was taking coumadin at home. Per patient, he was taking eliquis, but his doctor switched it to coumadin. He denies a fever, chills, nausea, vomiting, or diarrhea. General: Denies: ROS Unobtainable, Chills, Night Sweats, Fatigue, Malaise, Normal Appetite, Other Symptoms Constitutional: Denies: Chills, Fever, Malaise, Night Sweats, Weakness, Fatigue, Weight Loss, Lethargy, Other Eyes: Denies: Pain, Vision change, Conjunctivae inflammation, Eyelid inflammation, Redness, Other ENT: Denies: Head Aches, Ear Pain, Dysphagia, Sinus Congestion, Post Nasal Drip, Sore Throat, Epistaxis, Other Symptoms Skin: Denies: Rash, Lesions, Jaundice, Bruising, Itching, Dry, Breakdown, Nail Changes, Other Pulmonary: Denies: Dyspnea, Cough, Pleuritic Chest Pain, Other Symptoms Cardiovascular: Denies: Chest Pain, Palpitations, Orthopnea, Paroxysmal Noc. Dyspnea, Edema, Lt Headedness, Other Symptoms Gastrointestinal: Denies: Nausea, Vomiting, Abdominal Pain, Diarrhea, Constipation, Melena, Hematochezia, Other Symptoms Genitourinary: Denies: Dysuria, Frequency, Incontinence, Hematuria, Retention, Other Symptoms Hematologic: Denies: Bruising, Bleeding Excessively, Petecchia, Purpura, Enlarged Lymph Nodes, Other Hematologic Endocrine: Denies: Polydipsia, Polyphagia, Polyuria, Heat Intolerance, Cold Intolerance, Other Endocrine Sx Musculoskeletal: Denies: Neck Pain, Back Pain, Shoulder Pain, Arm Pain, Hand Pain, Leg Pain, Foot Pain, Joint Pain, Muscle Pain, Spasms, Other Symptoms Neurological: Denies: Weakness, Numbness, Incoordination, Change in speech, Confusion, Seizures, Other Symptoms Psych: Denies: Mood Normal, Anxiety, Depression, Memory Issues, Thoughts of Self Harm, Anger, Thoughts of Harming Other, Other Psych Objective Physical Examination General Exam: Positive: Alert, Cooperative, Mild Distress Eye Exam: Positive: PERRLA, Conjunctiva & lids normal, EOMI; Negative: Sclera icteric, Ptosis ENT Exam: Positive: Atraumatic, Mucous membr. moist/pink, Pharynx Normal, Tongue Midline, Nares Patent; Negative: Pharyngeal Edema Neck Exam: Positive: Supple, +2 carotid pulse wo bruit; Negative: JVD, thyromegaly, Lymphadenopathy Chest Exam: Positive: Clear to auscultation, Normal air movement; Negative: Rales, Rhonchi, Wheezing, Diminished Heart Exam: Positive: Rate Normal, Regular Rhythm, Normal S1, Normal S2; Negative: Gallops, Murmurs, Rubs Abdomen Exam: Positive: BS Hypoactive, Soft, Tenderness (to palpation in the lower abdomen around the healed, clean, dry, intact hernia incision, no appreciable hernia); Negative: Hepatospenomegaly, Mass, Hernia Extremity Exam: Positive: Edema (non-pitting, left lower leg), Normal pulses, Swelling, Other (spreading erythema noted around left heel, circular unstageable wound ulcer on left heel that is 5m in greatest diameter with eschar noted in the base, macerated periwound); Negative: Clubbing, Cyanosis, Tenderness Skin Exam: Positive: Breakdown (as noted above), Lesion (as noted above); Negative: Rash Neuro Exam: Positive: Normal Speech, Cranial Nerves 3-12 NL Psych Exam: Positive: Oriented x 3 Assessment /Plan Assessment # Left heel/leg cellulitis and possible underlying osteomyelitis 2/2 chronic wound ulcer - s/p left BKA 11/06/18 - Continue zosyn until 11/11/18 - Continue to work with PT/OT # JANIE on CKD - Continue to monitor. # DVT right upper extremity - Per patient, he had a "line placement" 3 years ago, which was complicated by clot, and he is for some reason still taking anticoagulation. - Continue iv heparin gtt, and will start coumadin 5 mg tonight. Daily INR. # DM with diabetic neuropathy - Cont. levemir 60 units SQ BID (patient is on Levemir 68 units SQ daily and insulin Glargine 48 units SQ QHS) - SSI AC/HS, FSBS AC/HS, hypoglycemic protocol # Morbid obesity BMI 38.1 - Pt requests increasing carbohydrates in his diet. "It's just not enough for me. I need more bread. 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 - Hypertension - d/c amlodipine. Received nifedipine 60 once last night. Will start nifedipine ER 90 daily from this morning. Plan/VTE VTE Prophylaxis Ordered?: Yes (Heparin drip) Plan IVF: Initiate (NS @ 125 mLs/hr) Diet: Continue Current (2g sodium) Activity: Continue Current (activity as tolerated) Therapy: PT Medications: Increase Pain Meds (Morphine 2mg IV Q2HP), Start Antibiotics (Vancomycin 1gm IV, Zosyn 4.5g IV Q8H) Diagnostics: Check Labs, Repeat Labs in AM, Obtain Cultures (blood, urine), MRI (left foot) Anticipated Discharge: Home With Services VS, I&O, 24H, [facility] Vital Signs/I&O Vital Signs Date Time Temp Pulse Resp B/P (MAP) Pulse Ox O2 Delivery O2 Flow Rate FiO2 11/10/18 09:42 2.0 11/10/18 09:40 92 Nasal Cannula 11/10/18 08:02 80 152/78 11/10/18 06:00 98.1 18 I&O- Last 24 Hours up to 6 AM 11/10/18 06:00 Intake Total 2220 ml Output Total 2900 ml Balance -680 ml Laboratory Data 24H LABS Laboratory Tests 2 11/09/18 17:15: Bedside Glucose (Misc Panel) 306H 11/09/18 19:52: Bedside Glucose (Misc Panel) 272H 11/10/18 04:59: Bedside Glucose (Misc Panel) 262H 11/10/18 05:50: Nucleated Red Blood Cells % (auto) 0.0, Anion Gap 4L, Glomerular Filtration Rate 36.1L, Blood Urea Nitrogen 25H, Creatinine 2.03H, Sodium Level 138, Potassium Level 4.8, Chloride Level 107, Carbon Dioxide Level 27, Calcium Level 10.3H, Aspartate Amino Transf (AST/SGOT) 13, Alanine Aminotransferase (ALT/SGPT) 18, Alkaline Phosphatase 93, Total Bilirubin 0.5, Total Protein 6.6, Albumin 2.5L, Albumin/Globulin Ratio 0.61L 11/10/18 11:39: Bedside Glucose (Misc Panel) 314H CBC/BMP Laboratory Tests 11/10/18 05:50 Red Blood Count 5.51, Mean Corpuscular Volume 78.2 L, Mean Corpuscular Hemoglobin 23.4 L, Mean Corpuscular Hemoglobin Concent 29.9 L, Red Cell Distribution Width 17.8 H, Calcium Level 10.3 H, Aspartate Amino Transf (AST/SGOT) 13, Alanine Aminotransferase (ALT/SGPT) 18, Alkaline Phosphatase 93, Total Bilirubin 0.5, Total Protein 6.6, Albumin 2.5 L Microbiology Microbiology 11/04/18 Stool Occult Blood (ANTOINE) - Final, Complete 11/02/18 Stool Occult Blood (ANTOINE) - Final, Complete 10/31/18 Stool Occult Blood (ANTOINE) - Final, Complete MILLI MANDEL MD Nov 10, 2018 16:40
[2018-11-10] MEDS ORDERED: MORPHINE 1MG/ML IN 0.9% NACL 100ML IV BAG IV PRN (17:30)
[2018-11-10] MEDS ORDERED: diazePAM 5 MG TAB PO PRN (17:30)
[2018-11-10] MEDS: WARFARIN SOD 5 MG TAB PO SCH (17:38)
[2018-11-10] MEDS: NS 1,000 ML IV SCH (17:39)
[2018-11-10] MEDS: CETIRIZINE (ZyrTEC) 10 MG TAB PO SCH (20:28)
[2018-11-10] MEDS: ATORVASTATIN 10 MG TAB PO SCH (20:28)
[2018-11-10] MEDS: AMITRIPTYLINE 25 MG TAB PO SCH (20:29)
[2018-11-10 22:00] VITALS: BP 136/66
[2018-11-10 22:43] VITALS: O2SAT 93
[2018-11-11] MEDS: SODIUM CHLORIDE 0.9% INJ 10 ML SYR IV SCH ×2 (05:26→17:32)
[2018-11-11 06:00] VITALS: BP 140/72
[2018-11-11 06:37] LABS: HEMATOCRIT 45.8 % (42.0-52.0); HEMOGLOBIN 13.6 g/dl (13.5-17.5); MEAN CORPUSCULAR HEMOGLOBIN 23.6 pg (27.0-33.0); MEAN CORPUSCULAR HGB CONC 29.7 g/dl (32.0-36.5); MEAN CORPUSCULAR VOLUME 79.4 fl (80.0-96.0); PLATELET COUNT, AUTOMATED 413 10^3/uL (150-450); RED BLOOD COUNT 5.77 10^6/uL (4.30-6.10); WHITE BLOOD COUNT 9.5 10^3/uL (4.0-10.0)
[2018-11-11 06:42] LABS: INR 1.3; PROTHROMBIN TIME 15.9 SECONDS (11.8-14.0)
[2018-11-11 07:02] LABS: ALBUMIN 2.6 GM/DL (3.2-5.2); BILIRUBIN,TOTAL 0.5 MG/DL (0.2-1.0); CALCIUM LEVEL 10.6 MG/DL (8.5-10.1); CREATININE FOR GFR 2.04 MG/DL (0.70-1.30); GLOMERULAR FILTRATION RATE 35.9 (>56); POTASSIUM SERUM 5.1 MEQ/L (3.5-5.1); TOTAL PROTEIN 6.6 GM/DL (6.4-8.2)
[2018-11-11] MEDS: buPROPion **XL** TABLET 150MG (WELLBUTRIN XL) PO SCH (07:36)
[2018-11-11] MEDS: HumaLOG INSULIN (NovoLOG) PER UNIT SC SCH ×4 (07:37→21:56)
[2018-11-11] MEDS: NIFEdipine 30 MG XL TAB PO SCH (07:37)
[2018-11-11] MEDS: ANEXSIA, NORCO 7.5MG/325MG TABLET(HYDROCODONE/APAP) PO PRN (07:37)
[2018-11-11] MEDS: PIPERACILLIN/TAZOBACTAM SOD 4.5 GM in D5W MINI-BAG PLUS 50 ML IV SCH ×2 (07:37→17:33)
[2018-11-11] MEDS: OMEPRAZOLE 20 MG CAP PO SCH (07:37)
[2018-11-11] MEDS: CARVedilol 12.5 MG TAB PO SCH ×2 (09:01→22:01)
--- NOTE | 2018-11-11 09:04 | IPNPDOC ---
Date Seen The patient was seen on 11/11/18. Progress Note Patient seen and examined, postoperative day #5 status post left below-knee amputation. His pain seems much improved again today despite weaning his Valium and HEALTH SYSTEMS ANALYST further. We did restart some [place] when necessary and are hopeful to wean the HEALTH SYSTEMS ANALYST off tomorrow. I mention this to him and he did not give me much pushback, so I definitely think he is starting to feel better. He is doing a good job of straightening his knee and preventing a contracture. I am hesitant to place a knee immobilizer at this point due to his injury to the pretibial aspect of his stump postop. I'd like to keep any compression or straps off of this until it is healed. I did warn him that if he develops a contracture at the knee and is usually irreversible and would prevent him from walking with the prosthetic and he understands this is important and he did demonstrate for me that he can do the straightening and is doing it consistently. I discussed with him that it is still very important to work with physical therapy and occupational therapy. He says he is doing better with this and is trying to be more agreeable when they come to work with him. On exam, there is still some medial calf and thigh erythema in the distribution of the greater saphenous vein, likely superficial thrombophlebitis from thrombosis of the greater saphenous vein after ligating it with the amputation. This can be treated with elevation, warm compresses. Although anticoagulation is not necessary for superficial thrombophlebitis, he is on anticoagulation which is also helpful. There is no induration over the area or other worrisome factors. The stump itself has some venous congestion, but the patient is tolerating his Omar wrap and is elevating his leg when in bed appropriately. This will take some time to resolve. So far, the incision is clean dry and intact with scant serosanguineous drainage. The area of bruising over the pretibial aspect of the stump is improved somewhat today status post his postop injury where he hit his stump on an IV pole. I'm hopeful that this will heal, and so far looks like it is doing okay. The stump does not have any fluctuance, induration, or obvious signs of infection, but I do think it is worthwhile to continue the antibiotics at least another day. Stump is still a little bit tenuous, and I want to give it every chance possible to heal well. We will follow and continue to monitor at the stump closely. VS, I&O, 24H, Fishbone Vital Signs/I&O Vital Signs Date Time Temp Pulse Resp B/P (MAP) Pulse Ox O2 Delivery O2 Flow Rate FiO2 11/11/18 07:37 18 11/11/18 07:35 2.0 11/11/18 06:00 98.0 89 140/72 (94) 94 11/10/18 22:43 Nasal Cannula I&O- Last 24 Hours up to 6 AM 11/11/18 06:00 Intake Total 1149 ml Output Total 3600 ml Balance -2451 ml Laboratory Data 24H LABS Laboratory Tests 2 11/10/18 11:39: Bedside Glucose (Misc Panel) 314H 11/10/18 17:06: Bedside Glucose (Misc Panel) 220H 11/10/18 20:05: Bedside Glucose (Misc Panel) 227H 11/11/18 05:55: Nucleated Red Blood Cells % (auto) 0.0, Prothrombin Time 15.9H, Prothromb Time International Ratio 1.30, Anion Gap 3L, Glomerular Filtration Rate 35.9L, Blood Urea Nitrogen 26H, Creatinine 2.04H, Sodium Level 138, Potassium Level 5.1, Chloride Level 106, Carbon Dioxide Level 29, Calcium Level 10.6H, Aspartate Amino Transf (AST/SGOT) 17, Alanine Aminotransferase (ALT/SGPT) 23, Alkaline P hosphatase 215H, Total Bilirubin 0.5, Total Protein 6.6, Albumin 2.6L, Albumin/Globulin Ratio 0.65L CBC/BMP Laboratory Tests 11/11/18 05:55 Red Blood Count 5.77, Mean Corpuscular Volume 79.4 L, Mean Corpuscular Hemoglobin 23.6 L, Mean Corpuscular Hemoglobin Concent 29.7 L, Red Cell Distribution Width 17.6 H, Calcium Level 10.6 H, Aspartate Amino Transf (AST/SGOT) 17, Alanine Aminotransferase (ALT/SGPT) 23, Alkaline Phosphatase 215 H, Total Bilirubin 0.5, Total Protein 6.6, Albumin 2.6 L Microbiology Microbiology 11/04/18 Stool Occult Blood (ANTOINE) - Final, Complete 11/02/18 Stool Occult Blood (ANTOINE) - Final, Complete NESTOR CLARK MD Nov 11, 2018 09:04
[2018-11-11 09:59] VITALS: O2SAT 93
--- NOTE | 2018-11-11 12:21 | IPNPDOC ---
Subjective Date Seen The patient was seen on 11/11/18. Subjective Chief Complaint/HPI The patient denies any pain. He was seen by the vascular surgeon, and the patient is happy about it. Denies a fever, chills, nausea, vomiting, or diarrhea. General: Denies: ROS Unobtainable, Chills, Night Sweats, Fatigue, Malaise, Normal Appetite, Other Symptoms Constitutional: Denies: Chills, Fever, Malaise, Night Sweats, Weakness, Fatigue, Weight Loss, Lethargy, Other Eyes: Denies: Pain, Vision change, Conjunctivae inflammation, Eyelid inflammation, Redness, Other ENT: Denies: Head Aches, Ear Pain, Dysphagia, Sinus Congestion, Post Nasal Drip, Sore Throat, Epistaxis, Other Symptoms Skin: Denies: Rash, Lesions, Jaundice, Bruising, Itching, Dry, Breakdown, Nail Changes, Other Pulmonary: Denies: Dyspnea, Cough, Pleuritic Chest Pain, Other Symptoms Cardiovascular: Denies: Chest Pain, Palpitations, Orthopnea, Paroxysmal Noc. Dyspnea, Edema, Lt Headedness, Other Symptoms Gastrointestinal: Denies: Nausea, Vomiting, Abdominal Pain, Diarrhea, Constipation, Melena, Hematochezia, Other Symptoms Genitourinary: Denies: Dysuria, Frequency, Incontinence, Hematuria, Retention, Other Symptoms Hematologic: Denies: Bruising, Bleeding Excessively, Petecchia, Purpura, Enlarged Lymph Nodes, Other Hematologic Endocrine: Denies: Polydipsia, Polyphagia, Polyuria, Heat Intolerance, Cold Intolerance, Other Endocrine Sx Musculoskeletal: Denies: Neck Pain, Back Pain, Shoulder Pain, Arm Pain, Hand Pain, Leg Pain, Foot Pain, Joint Pain, Muscle Pain, Spasms, Other Symptoms Neurological: Denies: Weakness, Numbness, Incoordination, Change in speech, Confusion, Seizures, Other Symptoms Psych: Denies: Mood Normal, Anxiety, Depression, Memory Issues, Thoughts of Self Harm, Anger, Thoughts of Harming Other, Other Psych Objective Physical Examination General Exam: Positive: Alert, Cooperative, Mild Distress Eye Exam: Positive: PERRLA, Conjunctiva & lids normal, EOMI; Negative: Sclera icteric, Ptosis ENT Exam: Positive: Atraumatic, Mucous membr. moist/pink, Pharynx Normal, Tongue Midline, Nares Patent; Negative: Pharyngeal Edema Neck Exam: Positive: Supple, +2 carotid pulse wo bruit; Negative: JVD, thyromegaly, Lymphadenopathy Chest Exam: Positive: Clear to auscultation, Normal air movement; Negative: Rales, Rhonchi, Wheezing, Diminished Heart Exam: Positive: Rate Normal, Regular Rhythm, Normal S1, Normal S2; Negative: Gallops, Murmurs, Rubs Abdomen Exam: Positive: BS Hypoactive, Soft, Tenderness (to palpation in the lower abdomen around the healed, clean, dry, intact hernia incision, no appreciable hernia); Negative: Hepatospenomegaly, Mass, Hernia Extremity Exam: Positive: Edema (non-pitting, left lower leg), Normal pulses, Swelling, Other (spreading erythema noted around left heel, circular unstageable wound ulcer on left heel that is 5m in greatest diameter with eschar noted in the base, macerated periwound); Negative: Clubbing, Cyanosis, Tenderness Skin Exam: Positive: Breakdown (as noted above), Lesion (as noted above); Negative: Rash Neuro Exam: Positive: Normal Speech, Cranial Nerves 3-12 NL Psych Exam: Positive: Oriented x 3 Assessment /Plan Assessment # Left heel/leg cellulitis and possible underlying osteomyelitis 2/2 chronic wound ulcer - s/p left BKA 11/06/18 - Continue zosyn until tomorrow following Dr. Escobar's recommendation. - Continue to work with PT/OT # JANIE on CKD - Continue to monitor. Stable. # DVT right upper extremity - Per patient, he had a "line placement" 3 years ago, which was complicated by clot, and he is for some reason still taking anticoagulation. - Continue iv heparin gtt, and coumadin 5 mg was started yesterday. Daily INR. # DM with diabetic neuropathy - Cont. levemir 60 units SQ BID (patient is on Levemir 68 units SQ daily and insulin Glargine 48 units SQ QHS) - SSI AC/HS, FSBS AC/HS, hypoglycemic protocol # Morbid obesity BMI 38.1 - Pt requests increasing carbohydrates in his diet. "It's just not enough for me. I need more bread. 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 - Hypertension - d/c amlodipine. Received nifedipine 60 once last night. Will start nifedipine ER 90 daily from this morning. Plan/VTE VTE Prophylaxis Ordered?: Yes (Heparin drip) Plan IVF: Initiate (NS @ 125 mLs/hr) Diet: Continue Current (2g sodium) Activity: Continue Current (activity as tolerated) Therapy: PT Medications: Increase Pain Meds (Morphine 2mg IV Q2HP), Start Antibiotics (Vancomycin 1gm IV, Zosyn 4.5g IV Q8H) Diagnostics: Check Labs, Repeat Labs in AM, Obtain Cultures (blood, urine), MRI (left foot) Anticipated Discharge: Home With Services VS, I&O, 24H, [facility] Vital Signs/I&O Vital Signs Date Time Temp Pulse Resp B/P (MAP) Pulse Ox O2 Delivery O2 Flow Rate FiO2 11/11/18 09:59 93 Nasal Cannula 2.0 11/11/18 09:01 92 144/80 11/11/18 08:07 18 11/11/18 06:00 98.0 I&O- Last 24 Hours up to 6 AM 11/11/18 06:00 Intake Total 1149 ml Output Total 3600 ml Balance -2451 ml Laboratory Data 24H LABS Laboratory Tests 2 11/10/18 17:06: Bedside Glucose (Misc Panel) 220H 11/10/18 20:05: Bedside Glucose (Misc Panel) 227H 11/11/18 05:55: Nucleated Red Blood Cells % (auto) 0.0, Prothrombin Time 15.9H, Prothromb Time International Ratio 1.30, Anion Gap 3L, Glomerular Filtration Rate 35.9L, Blood Urea Nitrogen 26H, Creatinine 2.04H, Sodium Level 138, Potassium Level 5.1, Chloride Level 106, Carbon Dioxide Level 29, Calcium Level 10.6H, Aspartate Amino Transf (AST/SGOT) 17, Alanine Aminotransferase (ALT/SGPT) 23, Alkaline Phosphatase 215H, Total Bilirubin 0.5, Total Protein 6.6, Albumin 2.6L, Albumin/Globulin Ratio 0.65L 11/11/18 11:45: Bedside Glucose (Misc Panel) 335H CBC/BMP Laboratory Tests 11/11/18 05:55 Red Blood Count 5.77, Mean Corpuscular Volume 79.4 L, Mean Corpuscular Hemoglobin 23.6 L, Mean Corpuscular Hemoglobin Concent 29.7 L, Red Cell Distribution Width 17.6 H, Calcium Level 10.6 H, Aspartate Amino Transf (AST/SGOT) 17, Alanine Aminotransferase (ALT/SGPT) 23, Alkaline Phosphatase 215 H, Total Bilirubin 0.5, Total Protein 6.6, Albumin 2.6 L Microbiology Microbiology 11/04/18 Stool Occult Blood (ANTOINE) - Final, Complete 11/02/18 Stool Occult Blood (ANTOINE) - Final, Complete MILLI MANDEL MD Nov 11, 2018 12:21
[2018-11-11 14:00] VITALS: BP 143/71
[2018-11-11] MEDS: WARFARIN SOD 5 MG TAB PO SCH (17:32)
[2018-11-11] MEDS: NS 1,000 ML IV SCH (17:33)
[2018-11-11] MEDS: CETIRIZINE (ZyrTEC) 10 MG TAB PO SCH (21:57)
[2018-11-11 22:00] VITALS: BP 148/70
[2018-11-11] MEDS: AMITRIPTYLINE 25 MG TAB PO SCH (22:00)
[2018-11-11] MEDS: ATORVASTATIN 10 MG TAB PO SCH (22:00)
[2018-11-12] MEDS: PIPERACILLIN/TAZOBACTAM SOD 4.5 GM in D5W MINI-BAG PLUS 50 ML IV SCH ×2 (00:48→08:26)
[2018-11-12] MEDS: ANEXSIA, NORCO 7.5MG/325MG TABLET(HYDROCODONE/APAP) PO PRN (05:56)
[2018-11-12] MEDS: SODIUM CHLORIDE 0.9% INJ 10 ML SYR IV SCH (05:56)
[2018-11-12 06:00] VITALS: BP 150/72
[2018-11-12 07:06] LABS: HEMATOCRIT 47.6 % (42.0-52.0); HEMOGLOBIN 14.1 g/dl (13.5-17.5); MEAN CORPUSCULAR HEMOGLOBIN 23.8 pg (27.0-33.0); MEAN CORPUSCULAR HGB CONC 29.6 g/dl (32.0-36.5); MEAN CORPUSCULAR VOLUME 80.3 fl (80.0-96.0); PLATELET COUNT, AUTOMATED 426 10^3/uL (150-450); RED BLOOD COUNT 5.93 10^6/uL (4.30-6.10); WHITE BLOOD COUNT 10.2 10^3/uL (4.0-10.0)
[2018-11-12 07:26] LABS: INR 1.24; PROTHROMBIN TIME 15.3 SECONDS (11.8-14.0)
[2018-11-12 07:27] LABS: ALBUMIN 2.8 GM/DL (3.2-5.2); BILIRUBIN,TOTAL 0.5 MG/DL (0.2-1.0); CALCIUM LEVEL 10.5 MG/DL (8.5-10.1); CREATININE FOR GFR 2.05 MG/DL (0.70-1.30); GLOMERULAR FILTRATION RATE 35.7 (>56); POTASSIUM SERUM 5.1 MEQ/L (3.5-5.1)
[2018-11-12] MEDS: buPROPion **XL** TABLET 150MG (WELLBUTRIN XL) PO SCH (08:26)
[2018-11-12] MEDS: OMEPRAZOLE 20 MG CAP PO SCH (08:27)
[2018-11-12] MEDS: NIFEdipine 30 MG XL TAB PO SCH (08:27)
[2018-11-12] MEDS: CARVedilol 12.5 MG TAB PO SCH ×2 (08:27→21:02)
[2018-11-12] MEDS: HumaLOG INSULIN (NovoLOG) PER UNIT SC SCH ×4 (08:28→21:00)
[2018-11-12] MEDS: NS 1,000 ML IV SCH ×2 (08:50→13:14)
[2018-11-12] MEDS: ENOXAPARIN 150 MG/ML SYR (J1650) SC SCH ×2 (10:14→21:00)
--- NOTE | 2018-11-12 12:43 | IPNPDOC ---
Subjective Date Seen The patient was seen on 11/12/18. Subjective Chief Complaint/HPI The patient has minimal pain. He does not have any other complaints. Denies a fever, chills, nausea, vomiting, or diarrhea. General: Denies: ROS Unobtainable, Chills, Night Sweats, Fatigue, Malaise, Normal Appetite, Other Symptoms Constitutional: Denies: Chills, Fever, Malaise, Night Sweats, Weakness, Fatigue, Weight Loss, Lethargy, Other Eyes: Denies: Pain, Vision change, Conjunctivae inflammation, Eyelid inflammation, Redness, Other ENT: Denies: Head Aches, Ear Pain, Dysphagia, Sinus Congestion, Post Nasal Drip, Sore Throat, Epistaxis, Other Symptoms Skin: Denies: Rash, Lesions, Jaundice, Bruising, Itching, Dry, Breakdown, Nail Changes, Other Pulmonary: Denies: Dyspnea, Cough, Pleuritic Chest Pain, Other Symptoms Cardiovascular: Denies: Chest Pain, Palpitations, Orthopnea, Paroxysmal Noc. Dyspnea, Edema, Lt Headedness, Other Symptoms Gastrointestinal: Denies: Nausea, Vomiting, Abdominal Pain, Diarrhea, Constipation, Melena, Hematochezia, Other Symptoms Genitourinary: Denies: Dysuria, Frequency, Incontinence, Hematuria, Retention, Other Symptoms Hematologic: Denies: Bruising, Bleeding Excessively, Petecchia, Purpura, Enlarged Lymph Nodes, Other Hematologic Endocrine: Denies: Polydipsia, Polyphagia, Polyuria, Heat Intolerance, Cold Intolerance, Other Endocrine Sx Musculoskeletal: Reports: Leg Pain Neurological: Denies: Weakness, Numbness, Incoordination, Change in speech, Confusion, Seizures, Other Symptoms Psych: Denies: Mood Normal, Anxiety, Depression, Memory Issues, Thoughts of Self Harm, Anger, Thoughts of Harming Other, Other Psych Objective Physical Examination General Exam: Positive: Alert, Cooperative, Mild Distress Eye Exam: Positive: PERRLA, Conjunctiva & lids normal, EOMI; Negative: Sclera icteric, Ptosis ENT Exam: Positive: Atraumatic, Mucous membr. moist/pink, Pharynx Normal, Tongue Midline, Nares Patent; Negative: Pharyngeal Edema Neck Exam: Positive: Supple, +2 carotid pulse wo bruit; Negative: JVD, thyromegaly, Lymphadenopathy Chest Exam: Positive: Clear to auscultation, Normal air movement; Negative: Rales, Rhonchi, Wheezing, Diminished Heart Exam: Positive: Rate Normal, Regular Rhythm, Normal S1, Normal S2; Negative: Gallops, Murmurs, Rubs Abdomen Exam: Positive: BS Hypoactive, Soft, Tenderness (to palpation in the lower abdomen around the healed, clean, dry, intact hernia incision, no calvin reciable hernia); Negative: Hepatospenomegaly, Mass, Hernia Extremity Exam: Positive: Edema (non-pitting, left lower leg), Normal pulses, Swelling, Other (spreading erythema noted around left heel, circular unstageable wound ulcer on left heel that is 5m in greatest diameter with eschar noted in the base, macerated periwound); Negative: Clubbing, Cyanosis, Tenderness Skin Exam: Positive: Breakdown (as noted above), Lesion (as noted above); Negative: Rash Neuro Exam: Positive: Normal Speech, Cranial Nerves 3-12 NL Psych Exam: Positive: Oriented x 3 Assessment /Plan Assessment # Left heel/leg cellulitis and possible underlying osteomyelitis 2/2 chronic wound ulcer - s/p 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 Escobar's recommendation. - Continue to work with PT/OT # JANIE on CKD - Continue to monitor. Stable. # DVT right upper extremity - Heparin gtt converted to lovenox BID, and continue coumadin 5 mg until INR gets therapeutic. Follow daily INR. # DM with diabetic neuropathy - Cont. levemir 60 units SQ BID (patient is on Levemir 68 units SQ daily and insulin Glargine 48 units SQ QHS) - SSI AC/HS, FSBS AC/HS, hypoglycemic protocol # Morbid obesity BMI 38.1 - Pt requests increasing carbohydrates in his diet. "It's just not enough for me. I need more bread. 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 # Hypertension - Continue nifedipine ER 90 daily. # Mild protein calorie malnutrition - Encourage PO intake. Plan/VTE VTE Prophylaxis Ordered?: Yes (lovenox) Plan IVF: Initiate (NS @ 125 mLs/hr) Diet: Continue Current (2g sodium) Activity: Continue Current (activity as tolerated) Therapy: PT Medications: Increase Pain Meds (Morphine 2mg IV Q2HP), Start Antibiotics (Vancomycin 1gm IV, Zosyn 4.5g IV Q8H) Diagnostics: Check Labs, Repeat Labs in AM, Obtain Cultures (blood, urine), MRI (left foot) Anticipated Discharge: Home With Services VS, I&O, 24H, [facility] Vital Signs/I&O Vital Signs Date Time Temp Pulse Resp B/P (MAP) Pulse Ox O2 Delivery O2 Flow Rate FiO2 11/12/18 10:00 97.9 87 20 98 11/12/18 08:27 150/72 11/11/18 09:59 Nasal Cannula 2.0 I&O- Last 24 Hours up to 6 AM 11/12/18 06:00 Intake Total 1420 ml Output Total 4680 ml Balance -3260 ml Laboratory Data 24H LABS Laboratory Tests 2 11/11/18 16:50: Bedside Glucose (Misc Panel) 297H 11/11/18 19:50: Bedside Glucose (Misc Panel) 371H 11/12/18 06:55: Nucleated Red Blood Cells % (auto) 0.0, Prothrombin Time 15.3H, Prothromb Time International Ratio 1.24, Anion Gap 7L, Glomerular Filtration Rate 35.7L, Blood Urea Nitrogen 24H, Creatinine 2.05H, Sodium Level 138, Potassium Level 5.1, Chloride Level 107, Carbon Dioxide Level 24, Calcium Level 10.5H, Aspartate Amino Transf (AST/SGOT) 17, Alanine Aminotransferase (ALT/SGPT) 20, Alkaline Phosphatase 158H, Total Bilirubin 0.5, Total Protein 7.0, Albumin 2.8L, Albumin/Globulin Ratio 0.67L 11/12/18 11:34: Bedside Glucose (Misc Panel) 214H CBC/BMP Laboratory Tests 11/12/18 06:55 Red Blood Count 5.93, Mean Corpuscular Volume 80.3, Mean Corpuscular Hemoglobin 23.8 L, Mean Corpuscular Hemoglobin Concent 29.6 L, Red Cell Distribution Width 18.4 H, Calcium Level 10.5 H, Aspartate Amino Transf (AST/SGOT) 17, Alanine Aminotransferase (ALT/SGPT) 20, Alkaline Phosphatase 158 H, Total Bilirubin 0.5, Total Protein 7.0, Albumin 2.8 L Microbiology Microbiology 11/04/18 Stool Occult Blood (ANTOINE) - Final, Complete 11/02/18 Stool Occult Blood (ANTOINE) - Final, Complete MILLI MANDEL MD Nov 12, 2018 12:43
[2018-11-12 14:00] VITALS: BP 137/62
[2018-11-12] MEDS ORDERED: MORPHINE 1MG/ML IN 0.9% NACL 100ML IV BAG IV PRN (16:30)
--- NOTE | 2018-11-12 16:30 | IPNPDOC ---
Date Seen The patient was seen on 11/12/18. Progress Note Patient seen and examined postoperative day #6 status post left below-knee amputation. 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 We have kept the SLOT FLOOR ATTENDANT on, with a lower dose of morphine and longer lockout times, in the hopes to wean him without significant withdrawal. He seems very comfortable today, and had minimal discomfort when I changed his dressing, but verbally he is quite belligerent and loud about wanting more narcotics. At one point, he acted as if he was given a rip out his IV since he wasn't going to get what he wanted from the SLOT FLOOR ATTENDANT. I suggested to him that this may not be in his best interest and eventually he did calm down about it, but I've seen a lot of irrational behavior from him surrounding his narcotic dependence. We had a long talk about continuing to wean the SLOT FLOOR ATTENDANT to off so that he is a candidate for rehabilitation or snaps, and the importance of avoiding high dose narcotics when they're not needed. Un fortunately, this left the patient very hostile to me at first, and then he simply gave me the silent treatment. I do not see any signs of uncontrolled pain. His vitals are stable, he is calm and resting comfortably in the bed, any shows almost no discomfort with dressing changes. I'm hopeful we'll be able to wean the SLOT FLOOR ATTENDANT off by tomorrow. On exam, the left BKA stump incision is clean dry and intact. No significant drainage is noted. The erythema over the pretibial area from where he accidental ly injured his stump is almost completely resolved today. The erythema on the medial thigh from suspected thrombophlebitis from greater saphenous vein is improved as well. His swelling is improved. I'm actually very pleased with how it looks and gave him a lot of praise for how he is able to keep his left knee straight to prevent contracture and how he is compliant with elevation of his leg. Xeroform, gauze, Omar wrap were reapplied. Patient tolerated this well. We will continue to follow. Eventually, the plan will be for staple removal in 2-3 weeks, and suture removal in 3-4 weeks, depending on progress and healing. We continue to encourage high-protein diet to help with wound healing. I do feel that it is okay to stop the antibiotics today, and if his condition deteriorates we can always restart them. His stump looks good enough today that I feel it is okay for us to try proceeding without further antibiotic treatment. Goal for disposition should still be rehabilitation if possible, versus shelter facility. PT OT should continue when patient is willing and compliant. VS, I&O, 24H, Fishbone Vital Signs/I&O Vital Signs Date Time Temp Pulse Resp B/P (MAP) Pulse Ox O2 Delivery O2 Flow Rate FiO2 11/12/18 14:00 96.9 85 18 137/62 (87) 93 11/11/18 09:59 Nasal Cannula 2.0 I&O- Last 24 Hours up to 6 AM 11/12/18 06:00 Intake Total 1420 ml Output Total 4680 ml Balance -3260 ml Laboratory Data 24H LABS Laboratory Tests 2 11/11/18 16:50: Bedside Glucose (Misc Panel) 297H 11/11/18 19:50: Bedside Glucose (Misc Panel) 371H 11/12/18 06:55: Nucleated Red Blood Cells % (auto) 0.0, Prothrombin Time 15.3H, Prothromb Time International Ratio 1.24, Anion Gap 7L, Glomerular Filtration Rate 35.7L, Blood Urea Nitrogen 24H, Creatinine 2.05H, Sodium Level 138, Potassium Level 5.1, Chloride Level 107, Carbon Dioxide Level 24, Calcium Level 10.5H, Aspartate Amino Transf (AST/SGOT) 17, Alanine Aminotransferase (ALT/SGPT) 20, Alkaline Phosphatase 158H, Total Bilirubin 0.5, Total Protein 7.0, Albumin 2.8L, Albumin/Globulin Ratio 0.67L 11/12/18 11:34: Bedside Glucose (Misc Panel) 214H CBC/BMP Laboratory Tests 11/12/18 06:55 Red Blood Count 5.93, Mean Corpuscular Volume 80.3, Mean Corpuscular Hemoglobin 23.8 L, Mean Corpuscular Hemoglobin Concent 29.6 L, Red Cell Distribution Width 18.4 H, Calcium Level 10.5 H, Aspartate Amino Transf (AST/SGOT) 17, Alanine Aminotransferase (ALT/SGPT) 20, Alkaline Phosphatase 158 H, Total Bilirubin 0.5, Total Protein 7.0, Albumin 2.8 L Microbiology Microbiology 11/04/18 Stool Occult Blood (ANTOINE) - Final, Complete 11/02/18 Stool Occult Blood (ANTOINE) - Final, Complete NESTOR CLARK MD Nov 12, 2018 16:30
[2018-11-12] MEDS: WARFARIN SOD 5 MG TAB PO SCH (16:54)
[2018-11-12] MEDS: diazePAM 5 MG TAB PO SCH ×2 (16:55→23:25)
[2018-11-12] MEDS: oxyCODONE 5MG TAB PO PRN ×2 (16:55→21:03)
[2018-11-12] MEDS: AMITRIPTYLINE 25 MG TAB PO SCH (21:01)
[2018-11-12] MEDS: CETIRIZINE (ZyrTEC) 10 MG TAB PO SCH (21:01)
[2018-11-12] MEDS: ATORVASTATIN 10 MG TAB PO SCH (21:02)
[2018-11-12 22:00] VITALS: BP 153/91
[2018-11-13] MEDS: oxyCODONE 5MG TAB PO PRN ×5 (01:50→20:43)
[2018-11-13 06:00] VITALS: BP 159/87
[2018-11-13] MEDS: SODIUM CHLORIDE 0.9% INJ 10 ML SYR IV SCH ×2 (06:03→17:34)
[2018-11-13 06:23] LABS: HEMATOCRIT 47.3 % (42.0-52.0); HEMOGLOBIN 14.5 g/dl (13.5-17.5); MEAN CORPUSCULAR HEMOGLOBIN 24.2 pg (27.0-33.0); MEAN CORPUSCULAR HGB CONC 30.7 g/dl (32.0-36.5); MEAN CORPUSCULAR VOLUME 78.8 fl (80.0-96.0); PLATELET COUNT, AUTOMATED 524 10^3/uL (150-450); WHITE BLOOD COUNT 11.6 10^3/uL (4.0-10.0)
[2018-11-13 06:32] LABS: INR 1.2; PROTHROMBIN TIME 14.9 SECONDS (11.8-14.0)
[2018-11-13 07:15] LABS: BILIRUBIN,TOTAL 0.4 MG/DL (0.2-1.0); CALCIUM LEVEL 10.3 MG/DL (8.5-10.1); CREATININE FOR GFR 2.1 MG/DL (0.70-1.30); GLOMERULAR FILTRATION RATE 34.7 (>56); POTASSIUM SERUM 4.6 MEQ/L (3.5-5.1); TOTAL PROTEIN 7.3 GM/DL (6.4-8.2)
[2018-11-13] MEDS: HumaLOG INSULIN (NovoLOG) PER UNIT SC SCH ×4 (08:49→20:44)
[2018-11-13] MEDS: buPROPion **XL** TABLET 150MG (WELLBUTRIN XL) PO SCH (08:50)
[2018-11-13] MEDS: CARVedilol 12.5 MG TAB PO SCH ×2 (08:51→20:41)
[2018-11-13] MEDS: NIFEdipine 30 MG XL TAB PO SCH (08:52)
[2018-11-13] MEDS: OMEPRAZOLE 20 MG CAP PO SCH (08:52)
[2018-11-13] MEDS ORDERED: hydroCHLOROthiazide 12.5 MG CAPSULE PO SCH (09:00)
[2018-11-13] MEDS: ENOXAPARIN 150 MG/ML SYR (J1650) SC SCH ×2 (10:31→20:45)
[2018-11-13] MEDS: PIPERACILLIN/TAZOBACTAM SOD 2.25 GM in D5W MINI-BAG PLUS 50 ML IV SCH ×2 (12:13→17:34)
--- NOTE | 2018-11-13 12:29 | IPNPDOC ---
Subjective Date Seen The patient was seen on 11/13/18. Subjective Chief Complaint/HPI The patient has no complaints this morning. I heard that he was asking pain medications on top of [employer], and oxycodone was ordered. After this, he has not had complaints about pain medications. General: Denies: ROS Unobtainable, Chills, Night Sweats, Fatigue, Malaise, Normal Appetite, Other Symptoms Constitutional: Denies: Chills, Fever, Malaise, Night Sweats, Weakness, Fatigue, Weight Loss, Lethargy, Other Eyes: Denies: Pain, Vision change, Conjunctivae inflammation, Eyelid i nflammation, Redness, Other ENT: Denies: Head Aches, Ear Pain, Dysphagia, Sinus Congestion, Post Nasal Drip, Sore Throat, Epistaxis, Other Symptoms Skin: Denies: Rash, Lesions, Jaundice, Bruising, Itching, Dry, Breakdown, Nail Changes, Other Pulmonary: Denies: Dyspnea, Cough, Pleuritic Chest Pain, Other Symptoms Cardiovascular: Denies: Chest Pain, Palpitations, Orthopnea, Paroxysmal Noc. Dyspnea, Edema, Lt Headedness, Other Symptoms Gastrointestinal: Denies: Nausea, Vomiting, Abdominal Pain, Diarrhea, Constipation, Melena, Hematochezia, Other Symptoms Genitourinary: Denies: Dysuria, Frequency, Incontinence, Hematuria, Retention, Other Symptoms Hematologic: Denies: Bruising, Bleeding Excessively, Petecchia, Purpura, Enlarged Lymph Nodes, Other Hematologic Endocrine: Denies: Polydipsia, Polyphagia, Polyuria, Heat Intolerance, Cold Intolerance, Other Endocrine Sx Musculoskeletal: Denies: Neck Pain, Back Pain, Shoulder Pain, Arm Pain, Hand Pain, Leg Pain, Foot Pain, Joint Pain, Muscle Pain, Spasms, Other Symptoms Neurological: Denies: Weakness, Numbness, Incoordination, Change in speech, Confusion, Seizures, Other Symptoms Psych: Denies: Mood Normal, Anxiety, Depression, Memory Issues, Thoughts of Self Harm, Anger, Thoughts of Harming Other, Other Psych Objective Physical Examination General Exam: Positive: Alert, Cooperative, Mild Distress Eye Exam: Positive: PERRLA, Conjunctiva & lids normal, EOMI; Negative: Sclera icteric, Ptosis ENT Exam: Positive: Atraumatic, Mucous membr. moist/pink, Pharynx Normal, Tongue Midline, Nares Patent; Negative: Pharyngeal Edema Neck Exam: Positive: Supple, +2 carotid pulse wo bruit; Negative: JVD, thyromegaly, Lymphadenopathy Chest Exam: Positive: Clear to auscultation, Normal air movement; Negative: Rales, Rhonchi, Wheezing, Diminished Heart Exam: Positive: Rate Normal, Regular Rhythm, Normal S1, Normal S2; Negative: Gallops, Murmurs, Rubs Abdomen Exam: Positive: BS Hypoactive, Soft, Tenderness (to palpation in the lower abdomen around the healed, clean, dry, intact hernia incision, no appreciable hernia); Negative: Hepatospenomegaly, Mass, Hernia Extremity Exam: Positive: Edema (non-pitting, left lower leg), Normal pulses, Swelling, Other (spreading erythema noted around left heel, circular unstageable wound ulcer on left heel that is 5m in greatest diameter with eschar noted in the base, macerated periwound); Negative: Clubbing, Cyanosis, Tenderness Skin Exam: Positive: Breakdown (as noted above), Lesion (as noted above); Negative: Rash Neuro Exam: Positive: Normal Speech, Cranial Nerves 3-12 NL Psych Exam: Positive: Oriented x 3 Assessment /Plan Assessment # Left heel/leg cellulitis, thrombophlebitis, and possible underlying osteomyelitis 2/2 chronic wound ulcer - s/p left BKA 11/06/18 - Zosyn was discontinued yesterday, but Dr. Escobar's assessment this morning, the leg is more swollen and erythematous. Will go back to zosyn from again. - Pain control with [employer] and oxycodone. Continue valium PRN. Dr. Escobar recommends warm compression and valium, which can decrease post-amputation pain. - Continue to work with PT/OT # JANIE on CKD - Continue to monitor. Stable. # DVT right upper extremity - Heparin gtt converted to lovenox BID. Given INR's not going up, will increase coumadin to 7.5 from 5 mg daily. Follow daily INR. # DM with diabetic neuropathy - Cont. levemir 60 units SQ BID (patient is on Levemir 68 units SQ daily and insulin Glargine 48 units SQ QHS) - SSI AC/HS, FSBS AC/HS, hypoglycemic protocol # Morbid obesity BMI 38.1 - Pt requests increasing carbohydrates in his diet. "It's just not enough for me. I need more bread. 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 # Hypertension - Continue nifedipine ER 90 daily. # Mild protein calorie malnutrition - Encourage PO intake. Plan/VTE VTE Prophylaxis Ordered?: Yes (lovenox) Plan IVF: Initiate (NS @ 125 mLs/hr) Diet: Continue Current (2g sodium) Activity: Continue Current (activity as tolerated) Therapy: PT Medications: Increase Pain Meds (Morphine 2mg IV Q2HP), Start Antibiotics (Vancomycin 1gm IV, Zosyn 4.5g IV Q8H) Diagnostics: Check Labs, Repeat Labs in AM, Obtain Cultures (blood, urine), MRI (left foot) Anticipated Discharge: Home With Services VS, I&O, 24H, [facility] Vital Signs/I&O Vital Signs Date Time Temp Pulse Resp B/P (MAP) Pulse Ox O2 Delivery O2 Flow Rate FiO2 11/13/18 11:02 18 11/13/18 08:52 154/82 11/13/18 08:51 98 11/13/18 06:00 96.8 96 11/11/18 09:59 Nasal Cannula 2.0 I&O- Last 24 Hours up to 6 AM 11/13/18 06:00 Intake Total 1310 ml Output Total 1350 ml Balance -40 ml Laboratory Data 24H LABS Laboratory Tests 2 11/12/18 16:25: Bedside Glucose (Misc Panel) 156H 11/12/18 20:02: Bedside Glucose (Misc Panel) 169H 11/13/18 05:56: Nucleated Red Blood Cells % (auto) 0.0, Prothrombin Time 14.9H, Prothromb Time International Ratio 1.20, Anion Gap 8, Glomerular Filtration Rate 34.7L, Blood Urea Nitrogen 28H, Creatinine 2.10H, Sodium Level 137, Potassium Level 4.6, Chloride Level 103, Carbon Dioxide Level 26, Calcium Level 10.3H, Aspartate Amino Transf (AST/SGOT) 13, Alanine Aminotransferase (ALT/SGPT) 17, Alkaline Phosphatase 145H, Total Bilirubin 0.4, Total Protein 7.3, Albumin 3.0L, Albumin/Globulin Ratio 0.70L 11/13/18 11:21: Bedside Glucose (Misc Panel) 274H CBC/BMP Laboratory Tests 11/13/18 05:56 Red Blood Count 6.00, Mean Corpuscular Volume 78.8 L, Mean Corpuscular Hemoglobin 24.2 L, Mean Corpuscular Hemoglobin Concent 30.7 L, Red Cell Distribution Width 18.2 H, Calcium Level 10.3 H, Aspartate Amino Transf (AST/S GOT) 13, Alanine Aminotransferase (ALT/SGPT) 17, Alkaline Phosphatase 145 H, Total Bilirubin 0.4, Total Protein 7.3, Albumin 3.0 L Microbiology Microbiology 11/04/18 Stool Occult Blood (ANTOINE) - Final, Complete MILLI MANDEL MD Nov 13, 2018 12:29
[2018-11-13] MEDS: NS 1,000 ML IV SCH (12:35)
[2018-11-13 14:00] VITALS: BP 151/83
--- NOTE | 2018-11-13 14:22 | IPNPDOC ---
Date Seen The patient was seen on 11/13/18. Progress Note Patient seen and examined, postoperative day #7 status post left below-knee amputation. His pain seems much improved again today despite d/c [employer]. He is very pleasant and cooperative today. He seems to be doing well. He is doing a good job of straightening his knee and preventing a contracture. I am hesitant to place a knee immobilizer at this point due to his erythema medial thigh, posterior thigh, and LLE swelling. I did warn him that if he develops a contracture at the knee and is usually irreversible and would prevent him from walking with the prosthetic and he understands this is important and he did demonstrate for me that he can do the straightening and is doing it consistently. I discussed with him that it is still very important to work with physical therapy and occupational therapy. On exam, there is more medial calf in the distribution of the greater saphenous vein likely superficial thrombophlebitis from thrombosis of the greater saphenous vein after ligating it with the amputation. This can be treated with elevation, warm compresses but the patient is always hot and cannot tolerate warm compresses. Although anticoagulation is not necessary for superficial thrombophlebitis, he is on anticoagulation which is also helpful. There is no induration over the area or other worrisome factors, but today there is now posterior thigh erythema. The stump itself still has some venous congestion, but the patient is tolerating his Omar wrap and is elevating his leg when in bed appropriately. This will take some time to resolve. So far, the incision is clean dry and intact with scant serosanguineous drainage. The area of bruising over the pretibial aspect of the stump is stable today status post his postop injury where he hit his stump on an IV pole. I'm hopeful that this will all continue to improve, but due to the increased thigh erythema, I feel it may be best to restart Abx and I d/w Dr Licea and he is going to restart zosyn. The stump does not have any fluctuance, induration, or obvious signs of infection, but I do think it is worthwhile to continue the antibiotics until the erythema improves. The incision is clean, dry and intact and healing well. No drainage. Dressings reapplied. Stump is still a little bit tenuous, and I want to give it every chance possible to heal well. We will follow and continue to monitor the stump closely. VS, I&O, 24H, Fishbone Vital Signs/I&O Vital Signs Date Time Temp Pulse Resp B/P (MAP) Pulse Ox O2 Delivery O2 Flow Rate FiO2 11/13/18 12:34 91 Room Air 11/13/18 11:02 18 11/13/18 08:52 154/82 11/13/18 08:51 98 11/13/18 06:00 96.8 11/11/18 09:59 2.0 I&O- Last 24 Hours up to 6 AM 11/13/18 09:00 Intake Total 950 ml Output Total 1350 ml Balance -400 ml Laboratory Data 24H LABS Laboratory Tests 2 11/12/18 16:25: Bedside Glucose (Misc Panel) 156H 11/12/18 20:02: Bedside Glucose (Misc Panel) 169H 11/13/18 05:56: Nucleated Red Blood Cells % (auto) 0.0, Prothrombin Time 14.9H, Prothromb Time International Ratio 1.20, Anion Gap 8, Glomerular Filtration Rate 34.7L, Blood Urea Nitrogen 28H, Creatinine 2.10H, Sodium Level 137, Potassium Level 4.6, Chloride Level 103, Carbon Dioxide Level 26, Calcium Level 10.3H, Aspartate Amino Transf (AST/SGOT) 13, Alanine Aminotransferase (ALT/SGPT) 17, Alkaline Phosphatase 145H, Total Bilirubin 0.4, Total Protein 7.3, Albumin 3.0L, Albumin/ Globulin Ratio 0.70L 11/13/18 11:21: Bedside Glucose (Misc Panel) 274H CBC/BMP Laboratory Tests 11/13/18 05:56 Red Blood Count 6.00, Mean Corpuscular Volume 78.8 L, Mean Corpuscular Hemoglobin 24.2 L, Mean Corpuscular Hemoglobin Concent 30.7 L, Red Cell Dist ribution Width 18.2 H, Calcium Level 10.3 H, Aspartate Amino Transf (AST/SGOT) 13, Alanine Aminotransferase (ALT/SGPT) 17, Alkaline Phosphatase 145 H, Total Bilirubin 0.4, Total Protein 7.3, Albumin 3.0 L Microbiology Microbiology 11/04/18 Stool Occult Blood (ANTOINE) - Final, Complete NESTOR CLARK MD Nov 13, 2018 14:22
[2018-11-13] MEDS: diazePAM 5 MG TAB PO PRN (15:43)
[2018-11-13] MEDS: WARFARIN SOD 7.5 MG TAB PO SCH (17:33)
[2018-11-13] MEDS: AMITRIPTYLINE 25 MG TAB PO SCH (20:43)
[2018-11-13] MEDS: ATORVASTATIN 10 MG TAB PO SCH (20:43)
[2018-11-13] MEDS: CETIRIZINE (ZyrTEC) 10 MG TAB PO SCH (20:43)
[2018-11-13 22:00] VITALS: BP 179/89
[2018-11-14] MEDS: PIPERACILLIN/TAZOBACTAM SOD 2.25 GM in D5W MINI-BAG PLUS 50 ML IV SCH ×5 (00:48→23:34)
[2018-11-14] MEDS: oxyCODONE 5MG TAB PO PRN ×5 (01:02→20:56)
[2018-11-14] MEDS: SODIUM CHLORIDE 0.9% INJ 10 ML SYR IV SCH ×2 (05:25→17:55)
[2018-11-14 06:00] VITALS: BP 140/80
[2018-11-14 06:49] LABS: HEMATOCRIT 46.1 % (42.0-52.0); MEAN CORPUSCULAR HEMOGLOBIN 23.9 pg (27.0-33.0); MEAN CORPUSCULAR HGB CONC 30.4 g/dl (32.0-36.5); MEAN CORPUSCULAR VOLUME 78.5 fl (80.0-96.0); PLATELET COUNT, AUTOMATED 491 10^3/uL (150-450); RED BLOOD COUNT 5.87 10^6/uL (4.30-6.10); WHITE BLOOD COUNT 10.6 10^3/uL (4.0-10.0)
[2018-11-14 06:57] LABS: INR 1.23; PROTHROMBIN TIME 15.2 SECONDS (11.8-14.0)
[2018-11-14 07:12] LABS: ALBUMIN 3.1 GM/DL (3.2-5.2); BILIRUBIN,TOTAL 0.5 MG/DL (0.2-1.0); CALCIUM LEVEL 10.2 MG/DL (8.5-10.1); CREATININE FOR GFR 2.18 MG/DL (0.70-1.30); GLOMERULAR FILTRATION RATE 33.2 (>56); POTASSIUM SERUM 4.8 MEQ/L (3.5-5.1); TOTAL PROTEIN 7.2 GM/DL (6.4-8.2)
[2018-11-14] MEDS: CARVedilol 12.5 MG TAB PO SCH ×2 (08:09→20:54)
[2018-11-14] MEDS: diazePAM 5 MG TAB PO PRN (08:09)
[2018-11-14] MEDS: NIFEdipine 30 MG XL TAB PO SCH (08:10)
[2018-11-14] MEDS: ENOXAPARIN 150 MG/ML SYR (J1650) SC SCH ×2 (08:11→20:54)
[2018-11-14] MEDS: buPROPion **XL** TABLET 150MG (WELLBUTRIN XL) PO SCH (08:11)
[2018-11-14] MEDS: HumaLOG INSULIN (NovoLOG) PER UNIT SC SCH ×4 (08:11→20:55)
[2018-11-14] MEDS: OMEPRAZOLE 20 MG CAP PO SCH (08:11)
--- NOTE | 2018-11-14 10:53 | IPNPDOC ---
Subjective Date Seen The patient was seen on 11/14/18. Subjective Chief Complaint/HPI Still complaining of pain at the site, but no fever, no nausea, vomiting General: Denies: ROS Unobtainable, Chills, Night Sweats, Fatigue, Malaise, Normal Appetite, Other Symptoms Constitutional: Denies: Chills, Fever, Malaise, Night Sweats, Weakness, Fatigue, Weight Loss, Lethargy, Other Eyes: Denies: Pain, Vision change, Conjunctivae inflammation, Eyelid inflammation, Redness, Other ENT: Denies: Head Aches, Ear Pain, Dysphagia, Sinus Congestion, Post Nasal Drip, Sore Throat, Epistaxis, Other Symptoms Skin: Denies: Rash, Lesions, Jaundice, Bruising, Itching, Dry, Breakdown, Nail Changes, Other Pulmonary: Denies: Dyspnea, Cough, Pleuritic Chest Pain, Other Symptoms Cardiovascular: Denies: Chest Pain, Palpitations, Orthopnea, Paroxysmal Noc. Dyspnea, Edema, Lt Headedness, Other Symptoms Gastrointestinal: Denies: Nausea, Vomiting, Abdominal Pain, Diarrhea, Co nstipation, Melena, Hematochezia, Other Symptoms Hematologic: Denies: Bruising, Bleeding Excessively, Petecchia, Purpura, Enlarged Lymph Nodes, Other Hematologic Endocrine: Denies: Polydipsia, Polyphagia, Polyuria, Heat Intolerance, Cold Intolerance, Other Endocrine Sx Musculoskeletal: Denies: Neck Pain, Back Pain, Shoulder Pain, Arm Pain, Hand Pain, Leg Pain, Foot Pain, Joint Pain, Muscle Pain, Spasms, Other Symptoms Neurological: Denies: Weakness, Numbness, Incoordination, Change in speech, Confusion, Seizures, Other Symptoms Objective Physical Examination General Exam: Positive: Alert, Cooperative, Mild Distress Eye Exam: Positive: PERRLA, Conjunctiva & lids normal, EOMI; Negative: Sclera icteric, Ptosis ENT Exam: Positive: Atraumatic, Mucous membr. moist/pink, Pharynx Normal, Tongue Midline, Nares Patent; Negative: Pharyngeal Edema Neck Exam: Positive: Supple, +2 carotid pulse wo bruit; Negative: JVD, thyromegaly, Lymphadenopathy Chest Exam: Positive: Clear to auscultation, Normal air movement; Negative: Rales, Rhonchi, Wheezing, Diminished Heart Exam: Positive: Rate Normal, Regular Rhythm, Normal S1, Normal S2; Negative: Gallops, Murmurs, Rubs Abdomen Exam: Positive: BS Hypoactive, Soft, Tenderness (to palpation in the lower abdomen around the healed, clean, dry, intact hernia incision, no apprecia ble hernia); Negative: Hepatospenomegaly, Mass, Hernia Extremity Exam: Positive: Edema (non-pitting, left lower leg), Normal pulses, Swelling, Other (spreading erythema noted around left heel, circular unstageable wound ulcer on left heel that is 5m in greatest diameter with eschar noted in the base, macerated periwound); Negative: Clubbing, Cyanosis, Tenderness Skin Exam: Positive: Breakdown (as noted above), Lesion (as noted above); Negative: Rash Neuro Exam: Positive: Normal Speech, Cranial Nerves 3-12 NL Psych Exam: Positive: Oriented x 3 Assessment /Plan Problems (1) History of left below knee amputation Status: Acute (2) Diabetic neuropathy Status: Chronic (3) Diabetes Status: Chronic (4) Hypertension Status: Chronic (5) Osteomyelitis Status: Chronic Plan/VTE VTE Prophylaxis Ordered?: Yes (lovenox) Plan IVF: Initiate (NS @ 125 mLs/hr) Diet: Continue Current (2g sodium) Activity: Continue Current (activity as tolerated) Therapy: PT Medications: Increase Pain Meds (Morphine 2mg IV Q2HP), Start Antibiotics (Vancomycin 1gm IV, Zosyn 4.5g IV Q8H) Diagnostics: Check Labs, Repeat Labs in AM, Obtain Cultures (blood, urine), MRI (left foot) Anticipated Discharge: Home With Services # Left heel/leg cellulitis, thrombophlebitis, and possible underlying osteomyelitis 2/2 chronic wound ulcer - s/p left BKA 11/06/18 -Ray started on Zosyn as per surgery's recommendation secondary to redness of posterior thigh A.m. level work has been ordered - Pain control with LOOM OPERATOR APPRENTICE and oxycodone. Continue valium PRN. Dr. Escobar recommends warm compression and valium, which can decrease post-amputation pain. - Continue to work with PT/OT -Patient is brother is the bedside and asked some questions, which she understands very well and answered back # JANIE on CKD - Continue to monitor. Stable. # DVT right upper extremity - Heparin gtt converted to lovenox BID. Given INR's not going up, will increase coumadin to 7.5 from 5 mg daily. Follow daily INR. # DM with diabetic neuropathy - Cont. levemir 60 units SQ BID (patient is on Levemir 68 units SQ daily and insulin Glargine 48 units SQ QHS) - SSI AC/HS, FSBS AC/HS, hypoglycemic protocol # Morbid obesity BMI 38.1 - Pt requests increasing carbohydrates in his diet. "It's just not enough for me. I need more bread. I'm a big yu, you know." necktie stitcher consulted for calorie count and diet recommendations # SARAH - home cpap to resume - high risk for hypercapnia in light of morphine gas regulator repairer. # Hypertension - Continue nifedipine ER 90 daily. # Mild protein calorie malnutrition - Encourage PO intake VS, I&O, 24H, Fishbone Vital Signs/I&O Vital Signs Date Time Temp Pulse Resp B/P (MAP) Pulse Ox O2 Delivery O2 Flow Rate FiO2 11/14/18 09:00 92 Room Air 11/14/18 08:41 18 11/14/18 08:10 152/88 11/14/18 08:09 82 11/14/18 06:00 96.7 11/11/18 09:59 2.0 I&O- Last 24 Hours up to 6 AM 11/14/18 05:59 Intake Total 1020 ml Output Total 2375 ml Balance -1355 ml Laboratory Data 24H LABS Laboratory Tests 2 11/13/18 11:21: Bedside Glucose (Misc Panel) 274H 11/13/18 17:15: Bedside Glucose (Misc Panel) 286H 11/13/18 20:02: Bedside Glucose (Misc Panel) 352H 11/14/18 06:08: Nucleated Red Blood Cells % (auto) 0.0, Prothrombin Time 15.2H, Prothromb Time International Ratio 1.23, Anion Gap 6L, Glomerular Filtration Rate 33.2L, Blood Urea Nitrogen 31H, Creatinine 2.18H, Sodium Level 135L, Potassium Level 4.8, Chloride Level 103, Carbon Dioxide Level 26, Calcium Level 10.2H, Aspartate Amino Transf (AST/SGOT) 9, Alanine Aminotransferase (ALT/SGPT) 17, Alkaline Phosphatase 125H, Total Bilirubin 0.5, Total Protein 7.2, Albumin 3.1L, Albumin/Globulin Ratio 0.76L CBC/BMP Laboratory Tests 11/14/18 06:08 Red Blood Count 5.87, Mean Corpuscular Volume 78.5 L, Mean Corpuscular Hemoglobin 23.9 L, Mean Corpuscular Hemoglobin Concent 30.4 L, Red Cell Dis tribution Width 18.0 H, Calcium Level 10.2 H, Aspartate Amino Transf (AST/SGOT) 9, Alanine Aminotransferase (ALT/SGPT) 17, Alkaline Phosphatase 125 H, Total Bilirubin 0.5, Total Protein 7.2, Albumin 3.1 L Microbiology Microbiology 11/04/18 Stool Occult Blood (ANTOINE) - Final, Complete BASSEM RODRIGES MD Nov 14, 2018 10:53
[2018-11-14] MEDS: SODIUM CHLORIDE 0.9% INJ 10 ML SYR IV PRN (11:53)
[2018-11-14 14:00] VITALS: BP 142/86
[2018-11-14] MEDS: WARFARIN SOD 7.5 MG TAB PO SCH (16:50)
[2018-11-14] MEDS: ATORVASTATIN 10 MG TAB PO SCH (20:54)
[2018-11-14] MEDS: CETIRIZINE (ZyrTEC) 10 MG TAB PO SCH (20:55)
[2018-11-14] MEDS: AMITRIPTYLINE 25 MG TAB PO SCH (20:55)
[2018-11-14 22:00] VITALS: BP 141/87
--- NOTE | 2018-11-14 22:41 | IPNPDOC ---
Date Seen The patient was seen on 11/14/18. Progress Note Patient seen and examined, postoperative day #8 status post left below-knee amputation. His pain seems much improved again today. He is very pleasant and cooperative today and seems to be doing well. He is doing a good job of straightening his knee and preventing a contracture. I am hesitant to place a knee immobilizer at this point due to his erythema medial thigh, posterior thigh, and LLE swelling. I did warn him that if he develops a contracture at the knee and is usually irreversible and would prevent him from walking with the prosthetic and he understands this is important and he did demonstrate for me that he can do the straightening and is doing it consistently. I discussed with him that it is still very important to work with physical therapy and occupational therapy. On exam, there is medial thigh/calf erythema in the distribution of the greater saphenous vein which I initially thought might be superficial thrombophlebitis, and then possibly cellulitis when the posterior thigh was also erythematous, but he has the same erythema over his back and axillas- thus I think it is just a heat rash from being in bed. There is no induration over the area or other worrisome factors. The stump itself still has some venous congestion, but the patient is tolerating his Omar wrap and is elevating his leg when in bed appropriately. This will take some time to resolve. So far, the incision is clean dry and intact with scant serosanguinous drainage. The area of bruising over the pretibial aspect of the stump is improving daily status post his postop injury where he hit his stump on an IV pole. I'm hopeful that this will all continue to improve. The stump does not have any fluctuance, induration, or obvious signs of infection and incision is clean, dry and intact and healing well. No drainage. Dressings reapplied. Stump is still a little bit tenuous, and I want to give it every chance possible to heal well. We will follow and continue to monitor the stump closely. VS, I&O, 24H, Fishbone Vital Signs/I&O Vital Signs Date Time Temp Pulse Resp B/P (MAP) Pulse Ox O2 Delivery O2 Flow Rate FiO2 11/14/18 21:44 18 11/14/18 20:54 95 141/87 11/14/18 14:00 97.3 96 11/14/18 09:00 Room Air 11/11/18 09:59 2.0 I&O- Last 24 Hours up to 6 AM 11/14/18 09:00 Intake Total 1020 ml Output Total 2225 ml Balance -1205 ml Laboratory Data 24H LABS Laboratory Tests 2 11/14/18 06:08: Nucleated Red Blood Cells % (auto) 0.0, Prothrombin Time 15.2H, Prothromb Time International Ratio 1.23, Anion Gap 6L, Glomerular Filtration Rate 33.2L, Blood Urea Nitrogen 31H, Creatinine 2.18H, Sodium Level 135L, Potassium Level 4.8, Chloride Level 103, Carbon Dioxide Level 26, Calcium Level 10.2H, Aspartate Amino Transf (AST/SGOT) 9, Alanine Aminotransferase (ALT/SGPT) 17, Alkaline Phosphatase 125H, Total Bilirubin 0.5, Total Protein 7.2, Albumin 3.1L, Albumin/Globulin Ratio 0.76L 11/14/18 11:36: Bedside Glucose (Misc Panel) 273H 11/14/18 16:38: Bedside Glucose (Misc Panel) 280H 11/14/18 20:13: Bedside Glucose (Misc Panel) 299H CBC/BMP Laboratory Tests 11/14/18 06:08 Red Blood Count 5.87, Mean Corpuscular Volume 78.5 L, Mean Corpuscular Hemoglobin 23.9 L, Mean Corpuscular Hemoglobin Concent 30.4 L, Red Cell Distribu tion Width 18.0 H, Calcium Level 10.2 H, Aspartate Amino Transf (AST/SGOT) 9, Alanine Aminotransferase (ALT/SGPT) 17, Alkaline Phosphatase 125 H, Total Bilirubin 0.5, Total Protein 7.2, Albumin 3.1 L Microbiology Microbiology 11/04/18 Stool Occult Blood (ANTOINE) - Final, Complete NESTOR CLARK MD Nov 14, 2018 22:41
[2018-11-15] MEDS: SODIUM CHLORIDE 0.9% INJ 10 ML SYR IV PRN (00:29)
[2018-11-15] MEDS: oxyCODONE 5MG TAB PO PRN ×5 (03:23→22:00)
[2018-11-15] MEDS: SODIUM CHLORIDE 0.9% INJ 10 ML SYR IV SCH ×2 (05:37→17:57)
[2018-11-15] MEDS: PIPERACILLIN/TAZOBACTAM SOD 2.25 GM in D5W MINI-BAG PLUS 50 ML IV SCH ×4 (05:37→23:48)
[2018-11-15 06:00] VITALS: BP 154/84
[2018-11-15 06:19] LABS: HEMATOCRIT 47.3 % (42.0-52.0); HEMOGLOBIN 14.3 g/dl (13.5-17.5); MEAN CORPUSCULAR HEMOGLOBIN 24.3 pg (27.0-33.0); MEAN CORPUSCULAR HGB CONC 30.2 g/dl (32.0-36.5); MEAN CORPUSCULAR VOLUME 80.3 fl (80.0-96.0); PLATELET COUNT, AUTOMATED 408 10^3/uL (150-450); RED BLOOD COUNT 5.89 10^6/uL (4.30-6.10); WHITE BLOOD COUNT 8.7 10^3/uL (4.0-10.0)
[2018-11-15 06:27] LABS: INR 1.27; PROTHROMBIN TIME 15.6 SECONDS (11.8-14.0)
[2018-11-15 06:44] LABS: BILIRUBIN,TOTAL 0.3 MG/DL (0.2-1.0); CALCIUM LEVEL 9.9 MG/DL (8.5-10.1); CREATININE FOR GFR 2.17 MG/DL (0.70-1.30); GLOMERULAR FILTRATION RATE 33.4 (>56); POTASSIUM SERUM 5.1 MEQ/L (3.5-5.1)
[2018-11-15] MEDS: HumaLOG INSULIN (NovoLOG) PER UNIT SC SCH ×4 (07:58→21:59)
[2018-11-15] MEDS: ENOXAPARIN 150 MG/ML SYR (J1650) SC SCH ×2 (07:58→21:59)
[2018-11-15] MEDS: NIFEdipine 30 MG XL TAB PO SCH (08:00)
[2018-11-15] MEDS: OMEPRAZOLE 20 MG CAP PO SCH (08:00)
[2018-11-15] MEDS: CARVedilol 12.5 MG TAB PO SCH ×2 (08:00→22:02)
[2018-11-15] MEDS: buPROPion **XL** TABLET 150MG (WELLBUTRIN XL) PO SCH (08:00)
--- NOTE | 2018-11-15 11:45 | IPNPDOC ---
Subjective Date Seen The patient was seen on 11/15/18. Subjective Chief Complaint/HPI Patient comfortable, in no apparent distress. Offers no new complaints General: Denies: ROS Unobtainable, Chills, Night Sweats, Fatigue, Malaise, Normal Appetite, Other Symptoms Constitutional: Denies: Chills, Fever, Malaise, Night Sweats, Weakness, Fatigue, Weight Loss, Lethargy, Other Eyes: Denies: Pain, Vision change, Conjunctivae inflammation, Eyelid inflammation, Redness, Other ENT: Denies: Head Aches, Ear Pain, Dysphagia, Sinus Congestion, Post Nasal Drip, Sore Throat, Epistaxis, Other Symptoms Skin: Denies: Rash, Lesions, Jaundice, Bruising, Itching, Dry, Breakdown, Nail Changes, Other Pulmonary: Denies: Dyspnea, Cough, Pleuritic Chest Pain, Other Symptoms Cardiovascular: Denies: Chest Pain, Palpitations, Orthopnea, Paroxysmal Noc. Dyspnea, Edema, Lt Headedness, Other Symptoms Gastrointestinal: Denies: Nausea, Vomiting, Abdominal Pain, Diarrhea, Cons tipation, Melena, Hematochezia, Other Symptoms Musculoskeletal: Denies: Neck Pain, Back Pain, Shoulder Pain, Arm Pain, Hand Pain, Leg Pain, Foot Pain, Joint Pain, Muscle Pain, Spasms, Other Symptoms Neurological: Denies: Weakness, Numbness, Incoordination, Change in speech, Confusion, Seizures, Other Symptoms Psych: Denies: Mood Normal, Anxiety, Depression, Memory Issues, Thoughts of Self Harm, Anger, Thoughts of Harming Other, Other Psych Objective Physical Examination General Exam: Positive: Alert, Cooperative, Mild Distress Eye Exam: Positive: PERRLA, Conjunctiva & lids normal, EOMI; Negative: Sclera icteric, Ptosis ENT Exam: Positive: Atraumatic, Mucous membr. moist/pink, Pharynx Normal, Tongue Midline, Nares Patent; Negative: Pharyngeal Edema Neck Exam: Positive: Supple, +2 carotid pulse wo bruit; Negative: JVD, thyromegaly, Lymphadenopathy Chest Exam: Positive: Clear to auscultation, Normal air movement; Negative: Rales, Rhonchi, Wheezing, Diminished Heart Exam: Positive: Rate Normal, Regular Rhythm, Normal S1, Normal S2; Negative: Gallops, Murmurs, Rubs Abdomen Exam: Positive: BS Hypoactive, Soft, Tenderness (to palpation in the lower abdomen around the healed, clean, dry, intact hernia incision, no appreciable hernia); Negative: Hepatospenomegaly, Mass, Hernia Extremity Exam: Positive: Edema (non-pitting, left lower leg), Normal pulses, Swelling, Other (spreading erythema noted around left heel, circular unstageable wound ulcer on left heel that is 5m in greatest diameter with eschar noted in the base, macerated periwound); Negative: Clubbing, Cyanosis, Tenderness Skin Exam: Positive: Breakdown (as noted above), Lesion (as noted above); Negative: Rash Neuro Exam: Positive: Normal Speech, Cranial Nerves 3-12 NL Psych Exam: Positive: Oriented x 3 Assessment /Plan Problems (1) History of left below knee amputation Status: Acute (2) Diabetic neuropathy Status: Chronic (3) Diabetes Status: Chronic (4) Hypertension Status: Chronic (5) Osteomyelitis Status: Chronic Plan/VTE VTE Prophylaxis Ordered?: Yes (lovenox) Plan IVF: Initiate (NS @ 125 mLs/hr) Diet: Continue Current (2g sodium) Activity: Continue Current (activity as tolerated) Therapy: PT Medications: Increase Pain Meds (Morphine 2mg IV Q2HP), Start Antibiotics (Vancomycin 1gm IV, Zosyn 4.5g IV Q8H) Diagnostics: Check Labs, Repeat Labs in AM, Obtain Cultures (blood, urine), MRI (left foot) Anticipated Discharge: Home With Services # Left heel/leg cellulitis, thrombophlebitis, and possible underlying osteomyelitis 2/2 chronic wound ulcer - s/p left BKA 11/06/18 -Ray started on Zosyn as per surgery's recommendation secondary to redness of posterior thigh A.m. level work has been ordered - Pain control with CRANKSHAFT STRAIGHTENER and oxycodone. Continue valium PRN. Dr. Escobar recommends warm compression and valium, which can decrease post-amputation pain. - Continue to work with PT/OT -Patient is brother is the bedside and asked some questions, which she understands very well and answered back # JANIE on CKD - Continue to monitor. Stable. # DVT right upper extremity - Heparin gtt converted to lovenox BID. Given INR's not going up, will increase coumadin to 7.5 from 5 mg daily. Follow daily INR. # DM with diabetic neuropathy - Cont. levemir 60 units SQ BID (patient is on Levemir 68 units SQ daily and insulin Glargine 48 units SQ QHS) - SSI AC/HS, FSBS AC/HS, hypoglycemic protocol # Morbid obesity BMI 38.1 - Pt requests increasing carbohydrates in his diet. "It's just not enough for me. I need more bread. I'm a big yu, you know." screen roller consulted for calorie count and diet recommendations # SARAH - home cpap to resume - high risk for hypercapnia in light of morphine steel barrel reamer. # Hypertension - Continue nifedipine ER 90 daily. # Mild protein calorie malnutrition - Encourage PO intake VS, I&O, 24H, Fishbone Vital Signs/I&O Vital Signs Date Time Temp Pulse Resp B/P (MAP) Pulse Ox O2 Delivery O2 Flow Rate FiO2 11/15/18 10:30 93 Room Air 11/15/18 08:29 18 11/15/18 08:00 154/84 11/15/18 08:00 91 11/15/18 06:00 96.8 11/11/18 09:59 2.0 I&O- Last 24 Hours up to 6 AM 11/15/18 06:00 Intake Total 1050 ml Output Total 3075 ml Balance -2025 ml Laboratory Data 24H LABS Laboratory Tests 2 11/14/18 16:38: Bedside Glucose (Misc Panel) 280H 11/14/18 20:13: Bedside Glucose (Misc Panel) 299H 11/15/18 06:02: Nucleated Red Blood Cells % (auto) 0.0, Prothrombin Time 15.6H, Prothromb Time International Ratio 1.27, Anion Gap 5L, Glomerular Filtration Rate 33.4L, Blood Urea Nitrogen 32H, Creatinine 2.17H, Sodium Level 136, Potassium Level 5.1, Chloride Level 105, Carbon Dioxide Level 26, Calcium Level 9.9, Aspartate Amino Transf (AST/SGOT) 9, Alanine Aminotransferase (ALT/SGPT) 17, Alkaline Phosphatase 111, Total Bilirubin 0.3, Total Protein 7.0, Albumin 3.0L, Albumin/Globulin Ratio 0.75L CBC/BMP Laboratory Tests 11/15/18 06:02 Red Blood Count 5.89, Mean Corpuscular Volume 80.3, Mean Corpuscular Hemoglobin 24.3 L, Mean Corpuscular Hemoglobin Concent 30.2 L, Red Cell Distribution Width 18.0 H, Calcium Level 9.9, Aspartate Amino Transf (AST/SGOT) 9, Alanine Aminotransferase (ALT/SGPT) 17, Alkaline Phosphatase 111, Total Bilirubin 0.3, Total Protein 7.0, Albumin 3.0 L BASSEM RODRIGES MD Nov 15, 2018 11:45
[2018-11-15 14:00] VITALS: BP 160/92
[2018-11-15] MEDS: WARFARIN SOD 7.5 MG TAB PO SCH (17:57)
[2018-11-15] MEDS: CETIRIZINE (ZyrTEC) 10 MG TAB PO SCH (21:58)
[2018-11-15] MEDS: AMITRIPTYLINE 25 MG TAB PO SCH (21:58)
[2018-11-15] MEDS: ATORVASTATIN 10 MG TAB PO SCH (21:58)
[2018-11-15 22:00] VITALS: BP 152/80
[2018-11-16] MEDS: SODIUM CHLORIDE 0.9% INJ 10 ML SYR IV PRN (00:53)
[2018-11-16] MEDS: oxyCODONE 5MG TAB PO PRN ×3 (02:02→12:21)
[2018-11-16 06:00] VITALS: BP 153/84
[2018-11-16] MEDS: SODIUM CHLORIDE 0.9% INJ 10 ML SYR IV SCH (06:04)
[2018-11-16] MEDS: PIPERACILLIN/TAZOBACTAM SOD 2.25 GM in D5W MINI-BAG PLUS 50 ML IV SCH (06:04)
[2018-11-16 06:30] LABS: HEMOGLOBIN 13.2 g/dl (13.5-17.5); MEAN CORPUSCULAR HEMOGLOBIN 23.6 pg (27.0-33.0); MEAN CORPUSCULAR VOLUME 78.6 fl (80.0-96.0); PLATELET COUNT, AUTOMATED 471 10^3/uL (150-450); WHITE BLOOD COUNT 8.2 10^3/uL (4.0-10.0)
[2018-11-16 06:42] LABS: INR 1.3; PROTHROMBIN TIME 15.9 SECONDS (11.8-14.0)
[2018-11-16 06:58] LABS: ALBUMIN 2.9 GM/DL (3.2-5.2); BILIRUBIN,TOTAL 0.3 MG/DL (0.2-1.0); CALCIUM LEVEL 10.1 MG/DL (8.5-10.1); CREATININE FOR GFR 2.12 MG/DL (0.70-1.30); GLOMERULAR FILTRATION RATE 34.3 (>56); POTASSIUM SERUM 5.1 MEQ/L (3.5-5.1); TOTAL PROTEIN 6.8 GM/DL (6.4-8.2)
[2018-11-16] MEDS: HumaLOG INSULIN (NovoLOG) PER UNIT SC SCH ×2 (08:31→12:21)
[2018-11-16 08:32] VITALS: BP 153/84
[2018-11-16] MEDS: CARVedilol 12.5 MG TAB PO SCH (08:32)
[2018-11-16] MEDS: OMEPRAZOLE 20 MG CAP PO SCH (08:32)
[2018-11-16] MEDS: NIFEdipine 30 MG XL TAB PO SCH (08:32)
[2018-11-16] MEDS: buPROPion **XL** TABLET 150MG (WELLBUTRIN XL) PO SCH (08:32)
[2018-11-16] MEDS: ENOXAPARIN 150 MG/ML SYR (J1650) SC SCH (08:34)
--- NOTE | 2018-11-16 11:10 | IPNPDOC ---
Subjective Date Seen The patient was seen on 11/16/18. Subjective Chief Complaint/HPI Patient is Lovenox on the unit with wheelchair Redness of the thighs the same, not worse not better. No local erythema, increased local temperature or worsening of rash, he is awaiting placement in a rehabilitation facility General: Denies: ROS Unobtainable, Chills, Night Sweats, Fatigue, Malaise, Normal Appetite, Other Symptoms Constitutional: Denies: Chills, Fever, Malaise, Night Sweats, Weakness, Fatigue, Weight Loss, Lethargy, Other Eyes: Denies: Pain, Vision change, Conjunctivae inflammation, Eyelid inflammation, Redness, Other ENT: Denies: Head Aches, Ear Pain, Dysphagia, Sinus Congestion, Post Nasal Drip, Sore Throat, Epistaxis, Other Symptoms Skin: Denies: Rash, Lesions, Jaundice, Bruising, Itching, Dry, Breakdown, Nail Changes, Other Pulmonary: Denies: Dyspnea, Cough, Pleuritic Chest Pain, Other Symptoms Cardiovascular: Denies: Chest Pain, Palpitations, Orthopnea, Paroxysmal Noc. Dyspnea, Edema, Lt Headedness, Other Symptoms Gastrointestinal: Denies: Nausea, Vomiting, Abdominal Pain, Diarrhea, Constipation, Melena, Hematochezia, Other Symptoms Neurological: Denies: Weakness, Numbness, Incoordination, Change in speech, Co nfusion, Seizures, Other Symptoms Psych: Denies: Mood Normal, Anxiety, Depression, Memory Issues, Thoughts of Self Harm, Anger, Thoughts of Harming Other, Other Psych Objective Physical Examination General Exam: Positive: Alert, Cooperative, Mild Distress Eye Exam: Positive: PERRLA, Conjunctiva & lids normal, EOMI; Negative: Sclera icteric, Ptosis ENT Exam: Positive: Atraumatic, Mucous membr. moist/pink, Pharynx Normal, Tongue Midline, Nares Patent; Negative: Pharyngeal Edema Neck Exam: Positive: Supple, +2 carotid pulse wo bruit; Negative: JVD, thyromegaly, Lymphadenopathy Chest Exam: Positive: Clear to auscultation, Normal air movement; Negative: Rales, Rhonchi, Wheezing, Diminished Heart Exam: Positive: Rate Normal, Regular Rhythm, Normal S1, Normal S2; Negative: Gallops, Murmurs, Rubs Abdomen Exam: Positive: BS Hypoactive, Soft, Tenderness (to palpation in the lower abdomen around the healed, clean, dry, intact hernia incision, no appreciable hernia); Negative: Hepatospenomegaly, Mass, Hernia Extremity Exam: Positive: Edema (non-pitting, left lower leg), Normal pulses, Swelling, Other (spreading erythema noted around left heel, circular unstageable wound ulcer on left heel that is 5m in greatest diameter with eschar noted in the base, macerated periwound); Negative: Clubbing, Cyanosis, Tenderness Skin Exam: Positive: Breakdown (as noted above), Lesion (as noted above); Negative: Rash Neuro Exam: Positive: Normal Speech, Cranial Nerves 3-12 NL Psych Exam: Positive: Oriented x 3 Assessment /Plan Problems (1) History of left below knee amputation Status: Acute (2) Diabetic neuropathy Status: Chronic (3) Diabetes Status: Chronic (4) Hypertension Status: Chronic (5) Osteomyelitis Status: Chronic Plan/VTE VTE Prophylaxis Ordered?: Yes (lovenox) Plan IVF: Initiate (NS @ 125 mLs/hr) Diet: Continue Current (2g sodium) Activity: Continue Current (activity as tolerated) Therapy: PT Medications: Increase Pain Meds (Morphine 2mg IV Q2HP), Start Antibiotics (Vancomycin 1gm IV, Zosyn 4.5g IV Q8H) Diagnostics: Check Labs, Repeat Labs in AM, Obtain Cultures (blood, urine), MRI (left foot) Anticipated Discharge: Home With Services # Left heel/leg cellulitis, thrombophlebitis, and possible underlying osteomyelitis 2/2 chronic wound ulcer - s/p left BKA 11/06/18 -DC Zosyn as doubt there is evidence of any cellulitis from clinical exam or laboratory work - Pain control with SAILING MASTER and oxycodone. Continue valium PRN. Dr. Escobar recommends warm compression and valium, which can decrease post-amputation pain. - Continue to work with PT/OT - Awaiting placement and rehabilitation facility secondary to limited options secondary to patient's previous history # JANIE on CKD - Continue to monitor. Stable. # DVT right upper extremity - Heparin gtt converted to lovenox BID. Given INR's not going up, will increase coumadin to 7.5 from 5 mg daily. Follow daily INR. # DM with diabetic neuropathy - Cont. levemir 60 units SQ BID (patient is on Levemir 68 units SQ daily and insulin Glargine 48 units SQ QHS) - SSI AC/HS, FSBS AC/HS, hypoglycemic protocol # Morbid obesity BMI 38.1 - Pt requests increasing carbohydrates in his diet. "It's just not enough for me. I need more bread. I'm a big yu, you know." cellophane tester consulted for calorie count and diet recommendations # SARAH - home cpap to resume - high risk for hypercapnia in light of morphine apprentice stylist. # Hypertension - Continue nifedipine ER 90 daily. # Mild protein calorie malnutrition - Encourage PO intake VS, I&O, 24H, Fishbone Vital Signs/I&O Vital Signs Date Time Temp Pulse Resp B/P (MAP) Pulse Ox O2 Delivery O2 Flow Rate FiO2 11/16/18 10:43 93 Room Air 11/16/18 08:32 153/84 11/16/18 08:32 80 11/16/18 06:48 18 11/16/18 06:00 97.1 11/11/18 09:59 2.0 I&O- Last 24 Hours up to 6 AM 11/16/18 06:00 Intake Total 1760 ml Output Total 2300 ml Balance -540 ml Laboratory Data 24H LABS Laboratory Tests 2 11/15/18 11:54: Bedside Glucose (Misc Panel) 235H 11/15/18 17:09: Bedside Glucose (Misc Panel) 276H 11/15/18 20:19: Bedside Glucose (Misc Panel) 341H 11/16/18 05:56: Nucleated Red Blood Cells % (auto) 0.0, Prothrombin Time 15.9H, Prothromb Time International Ratio 1.30, Anion Gap 6L, Glomerular Filtration Rate 34.3L, Blood Urea Nitrogen 34H, Creatinine 2.12H, Sodium Level 136, Potassium Level 5.1, Chloride Level 104, Carbon Dioxide Level 26, Calcium Level 10.1, Aspartate Amino Transf (AST/SGOT) 10, Alanine Aminotransferase (ALT/SGPT) 14, Alkaline Phosphatase 99, Total Bilirubin 0.3, Total Protein 6.8, Albumin 2.9L, Albumin/Globulin Ratio 0.74L CBC/BMP Laboratory Tests 11/16/18 05:56 Red Blood Count 5.60, Mean Corpuscular Volume 78.6 L, Mean Corpuscular Hemoglobin 23.6 L, Mean Corpuscular Hemoglobin Concent 30.0 L, Red Cell Distribution Width 17.2 H, Calcium Level 10.1, Aspartate Amino Transf (AST/SGOT) 10, Alanine Aminotransferase (ALT/SGPT) 14, Alkaline Phosphatase 99, Total Bilirubin 0.3, Total Protein 6.8, Albumin 2.9 L BASSEM RODRIGES MD Nov 16, 2018 11:10
[2018-11-16] MEDS ORDERED: LOVE0.8I3 SC ×2 (12:25→15:47)
[2018-11-16] MEDS ORDERED: OXYCO5TA PO (12:25)
[2018-11-16] MEDS ORDERED: DIAZ5TAB PO ×2 (12:25→15:47)
[2018-11-16] MEDS ORDERED: COUM1TAB17 PO (12:25)
[2018-11-16] MEDS ORDERED: CALC200T15 PO ×2 (12:25→15:47)
[2018-11-16] MEDS ORDERED: NIFE30TA7 PO (12:25)
[2018-11-16] MEDS ORDERED: MORP1INJ IV (12:25)
[2018-11-16 14:00] VITALS: BP 150/80
--- NOTE | 2018-11-16 14:06 | DS.PDOC ---
Discharge Summary General Date of Admission Oct 29, 2018 at 21:06 Date of Discharge 11/16/2018 Attending Physician: BASSEM RODRIGES MD Discharge Summary PROCEDURES PERFORMED DURING STAY: None. ADMITTING DIAGNOSES: 1. Left heel, leg cellulitis, thrombophlebitis, osteomyelitis. DISCHARGE DIAGNOSES: 1. Left heel Elvia cellulitis, thrombophlebitis, osteomyelitis, left BKA, diabetes mellitus, AKA a and C daily, DVT. COMPLICATIONS/CHIEF COMPLAINT: Cellulitis In Diabetic Foot. HISTORY OF PRESENT ILLNESS: Mr. Herrera is a 58-year-old male who presents to [facility]'s Emergency Department with left leg pain. Patient states that he has worsening left leg pain. He had been to his appointment at the wound care center on 10/22/2018 after being hospitalized for 2 months with a chronic left heel wound ulcer that had a wound VAC in place. However, the wound VAC was not securing correctly and adjustments were made. His wound at that time was debrided, hemostasis was obtained, and the wound was dressed with hydrofera blue heavy drainage and the NPWT was applied. He returned to the wound care center on 10/29/2018 and it was noted that he left leg looked significantly worse with possible signs of lymphangitis and swelling. He was instructed to present to the Emergency Department for further evaluation. The patient states that after his debridement on Thursday his wound continued to bleed. By Thursday he developed cold chills with fever or night sweats. He stayed in bed all day. He describes a burning/stabbing pain in his foot extending up to his thigh since the extensive debridement with associated swelling. He also describes a pain around his hernia incision with associated urinary burning. He denies blood in his urine. He has chronic low back pain which has not changed in intensity or character. He has been nauseated, but has not vomited although he is dry heaving. He feels diffusely weak and lightheaded, but has not fallen. He has a non-productive cough with an intermittent sore throat. Emergency Department evaluation reveals mild tachycardia at 107 otherwise his vital signs are stable. He has a neutrophilic leukocytosis. No lactic acid. Mild elevation from baseline in his creatinine to 2.25. Foot x-ray obtained although no report is available. MRI has been ordered. Blood cultures are pending. Hospitalist service was consulted and patient was admitted for further medical management. HOSPITAL COURSE: Left heel/leg cellulitis, thrombophlebitis, and possible underlying osteomyelitis 2/2 chronic wound ulcer - s/p left BKA 11/06/18 - Zosyn was discontinued as doubt there is evidence of any cellulitis from clinical exam or laboratory work - Pain control with OVEN HEATER and oxycodone but will DC on discharge to ARU. Continue valium PRN. Dr. Escobar recommends warm compression and valium, which can decrease post-amputation pain. - Continue to work with PT/OT -Transfer to acute rehabilitation unit for further care on all current medications. # JANIE on CKD - Continue to monitor. Stable. # DVT right upper extremity - Heparin gtt converted to lovenox BID. Given INR's not going up, will increase coumadin to 10 from 7.5 mg daily. Follow daily INR. # DM with diabetic neuropathy - Cont. levemir 60 units SQ BID - SSI AC/HS, FSBS AC/HS, hypoglycemic protocol # Morbid obesity BMI 38.1 - Pt requests increasing carbohydrates in his diet. "It's just not enough for me. I need more bread. 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 # Hypertension - Continue nifedipine ER 90 daily. # Mild protein calorie malnutrition - Encourage PO intake. DISCHARGE MEDICATIONS: Please see below. ALLERGIES: Please see below. PHYSICAL EXAMINATION ON DISCHARGE: VITAL SIGNS: Please see below. GENERAL: Within normal limits HEENT: PERRLA Regular NECK: Supple CARDIOVASCULAR EXAMINATION: S1, S2, regular RESPIRATORY EXAMINATION: Lead to A&P ABDOMINAL EXAMINATION: , Soft, nontender wasn't present EXTREMITIES: No clubbing, cyanosis, edema SKIN: Within normal limits NEUROLOGICAL EXAMINATION: normal PSYCHIATRIC EXAMINATION: Normal LABORATORY DATA: Please see below. PROGNOSIS: Failure ACTIVITY: As tolerated. DIET: Carbohydrate consistent diet DISCHARGE PLAN: Discharged to acute rehabilitation unit DISPOSITION: . Acute rehabilitation unit DISCHARGE INSTRUCTIONS: 1. None. ITEMS TO FOLLOWUP ON ON OUTPATIENT: 1. INR. DISCHARGE CONDITION: Stable. TIME SPENT ON DISCHARGE: 40 minutes. Vital Signs/I&Os Vital Signs Date Time Temp Pulse Resp B/P (MAP) Pulse Ox O2 Delivery O2 Flow Rate FiO2 11/16/18 12:51 18 11/16/18 10:43 93 Room Air 11/16/18 08:32 153/84 11/16/18 08:32 80 11/16/18 06:00 97.1 11/11/18 09:59 2.0 I&O- Last 24 Hours up to 6 AM0 11/16/18 06:00 Intake Total 1760 ml Output Total 2300 ml Balance -540 ml Laboratory Data Labs 24H Laboratory Tests 2 11/15/18 17:09: Bedside Glucose (Misc Panel) 276H 11/15/18 20:19: Bedside Glucose (Misc Panel) 341H 11/16/18 05:56: Nucleated Red Blood Cells % (auto) 0.0, Prothrombin Time 15.9H, Prothromb Time International Ratio 1.30, Anion Gap 6L, Glomerular Filtration Rate 34.3L, Blood Urea Nitrogen 34H, Creatinine 2.12H, Sodium Level 136, Potassium Level 5.1, Chloride Level 104, Carbon Dioxide Level 26, Calcium Level 10.1, Aspartate Amino Transf (AST/SGOT) 10, Alanine Aminotransferase (ALT/SGPT) 14, Alkaline Phosphatase 99, Total Bilirubin 0.3, Total Protein 6.8, Albumin 2.9L, Albumin/Globulin Ratio 0.74L 11/16/18 11:33: Bedside Glucose (Misc Panel) 260H CBC/BMP Laboratory Tests 11/16/18 05:56 Red Blood Count 5.60, Mean Corpuscular Volume 78.6 L, Mean Corpuscular Hemoglobin 23.6 L, Mean Corpuscular Hemoglobin Concent 30.0 L, Red Cell Distribution Width 17.2 H, Calcium Level 10.1, Aspartate Amino Transf (AST/SGOT) 10, Alanine Aminotransferase (ALT/SGPT) 14, Alkaline Phosphatase 99, Total Bilirubin 0.3, Total Protein 6.8, Albumin 2.9 L FSBS Laboratory Tests Test 11/15/18 17:09 11/15/18 20:19 11/16/18 11:33 Range/Units Bedside Glucose (Misc Panel) 276 341 260 70-105 MG/DL Discharge Medications Scheduled Amitriptyline HCl (Amitriptyline HCl) 25 Mg Tablet, 25 MG PO QHS, (Reported) Amlodipine Besylate (Amlodipine Besylate) 5 Mg Tablet, 5 MG PO BID, (Reported) Aspirin (Aspirin EC) 81 Mg Tablet.dr, 81 MG PO DAILY, (Reported) Atorvastatin Calcium (Atorvastatin Calcium) 10 Mg Tablet, 10 MG PO QHS, (Reported) Bupropion HCl (Bupropion Xl) 150 Mg Tab.er.24h, 150 MG PO DAILY, (Reported) Carvedilol (Carvedilol) 25 Mg Tablet, 25 MG PO BID, (Reported) Enalapril Maleate (Enalapril Maleate) 20 Mg Tablet, 20 MG PO BID, (Reported) Enoxaparin Sodium (Lovenox) 150 Mg/1 Ml Syringe, 150 MG SC Q12H Esomeprazole Magnesium (Nexium) 40 Mg Capsule.dr, 40 MG PO DAILY, (Reported) Insulin Aspart (Novolog) 100 Unit/1 Ml Cartridge, 1 DOSE SC ACHS, (Reported) PER SLIDING SCALE Insulin Detemir (Levemir) 100 Unit/1 Ml Vial, 68 UNITS SC DAILY, (Reported) Levocetirizine Dihydrochloride (Levocetirizine Dihydrochloride) 5 Mg Tablet, 5 MG PO QHS, (Reported) Nifedipine (Nifedipine ER) 30 Mg Tab.er.24, 90 MG PO DAILY Warfarin Sodium (Coumadin) 5 Mg Tablet, 10 MG PO DAILY@17 Scheduled PRN Calcium Carbonate (Calcium Carbonate) 200 Mg Tab.chew, 1,000 MG PO Q8HP PRN for HEARTBURN Clotrimazole (Lotrimin AF) 1 % Cre, 1 DOSE TOP BID PRN for ITCHING, (Reported) APPLY TO FEET Diazepam (Diazepam) 5 Mg Tablet, 5 MG PO Q6HP PRN for ANXIETY/AGITATION Oxycodone HCl (Oxycodone HCl) 5 Mg Tablet, 10 MG PO Q4HP PRN for SEVERE PAIN (PS 8-10) Allergies Coded Allergies: povidone-iodine (Verified Allergy, Unknown, 08/18/18) soap (Verified Allergy, Unknown, 08/18/18) BASSEM RODRIGES MD Nov 16, 2018 14:06
[2018-11-16] MEDS ORDERED: OXYC-517 PO (15:47)
[2018-11-16] MEDS ORDERED: NIFE90TA20 PO (15:47)
[2018-11-16] MEDS ORDERED: OMEP20CA4 PO (15:47)
[2018-11-16] MEDS ORDERED: WARF-22 PO (15:47)
[2018-11-16] MEDS ORDERED: WARFARIN SOD 5 MG TAB PO SCH (17:00)
--- NOTE | 2018-12-01 14:03 | REPIR ---
DATE OF PROCEDURE: 11/02/2018 ATTENDING SURGEON: Dr. Kirstin Go FITNESS CONSULTANT: Amber Dacosta and Marian Hunt PREOPERATIVE DIAGNOSIS: Poor IV access. POSTOPERATIVE DIAGNOSIS: Poor IV access. PROCEDURE: Ultrasound-guided left and fluoroscopic guided left basilic vein 55 cm PICC line placement. INDICATION: The patient is a 58-year-old male with left lower extremity infection who requires access for antibiotics and fluids. ANESTHESIA: Local with 10 mL of 2% lidocaine mixed with 0.5% Marcaine. COMPLICATIONS: None. DRAINS: None. SPECIMENS: None. IMPLANTS: None. PROCEDURE: The patient was taken to the angiography suite, placed supine on the angiography room table, left upper extremity is prepped and draped in a standard surgical fashion. Ultrasound was used to guide cannulation of the left basilic vein. The catheter was cut to 55 cm and placed with the tip in the superior vena cava right atrial junction. Both ports were aspirated and noted to aspirate easily and then flushed with heparinized saline. Dressings were applied. The patient tolerated the procedure well. All instrument, sponge, needle counts were correct at the end the case. There were no complications. Dr. Go was present for and directed the entire case. The patient was transferred to the holding and subsequently to the floor in stable condition.
--- NOTE | 2018-12-01 14:25 | REPIR ---
DATE OF PROCEDURE: 11/02/2018 ATTENDING SURGEON: Dr. Kirstin Go INVESTMENT OFFICER: Amber Dacosta and Marian Hunt PREOPERATIVE DIAGNOSES: Left foot infection with cellulitis and osteomyelitis, diabetes mellitus, acute kidney injury, chronic renal insufficiency. POSTOPERATIVE DIAGNOSES: Left foot infection with cellulitis and osteomyelitis, diabetes mellitus, acute kidney injury, chronic renal insufficiency. PROCEDURE: Right common femoral arterial cannulation, selective left common femoral artery catheter placement with left lower extremity angiogram, Mynx closure of the right common femoral arteriotomy. INDICATION: The patient is a 58-year-old male with a nonhealing wound in his left foot, which has been present for more than 2 years. The patient now has cellulitis and possible osteomyelitis. The patient undergo an angiogram with possible angioplasty, stent and/or atherectomy. ANESTHESIA: Local with 10 mL of 2% lidocaine mixed with 0.5% Marcaine FLUORO TIME: 1.9 minutes. CONTRAST: 5 mL COMPLICATIONS: None. DRAINS: None. SPECIMENS: None. IMPLANTS: None. PROCEDURE: The patient was taken to the angiography suite, placed supine on the angiography room table and then prepped and draped in a standard surgical fashion. The right common femoral artery was cannulated. The catheter was placed in the left lower extremity and an angiogram was performed. This showed no intervention was required. Catheters and wires were removed. The arteriotomy in the right common femoral artery was closed using a Mynx closure device with an additional 10 minutes of adjunctive pressure applied for hemostasis. Dressings were then applied. The patient tolerated procedure well. All instrument, sponge and needle counts were correct at the end of the case. There were no complications. Dr. Go was present for and directed the entire case. The patient was transferred to the holding and subsequently to the floor in stable condition.
[2018-12-15] MEDS ORDERED: OXYCO5TA PO (09:55)
== END 2018-11-16 15:18 | DRG 41 ==
LOC: M ED 15:34 → M ED INP 21:06 → M MS5PR 10-30 00:08 → M MSPAV 11-08 16:35
PROVIDERS: ADMIT Student in an Organized Health Care Education/Training Program; ATTEND Internal Medicine
PROC: B41G1ZZ Fluoroscopy of Left Lower Extremity Arteries using Low Osmolar Contrast (ICD-10-PCS; 2018-11-02)
PROC: B51NZZA Fluoroscopy of Left Upper Extremity Veins, Guidance (ICD-10-PCS; 2018-11-02)
PROC: 02HV33Z Insertion of Infusion Device into Superior Vena Cava, Percutaneous Approach (ICD-10-PCS; 2018-11-02)
PROC: B548ZZA Ultrasonography of Superior Vena Cava, Guidance (ICD-10-PCS; 2018-11-02)
PROC: 0Y6D0Z3 Detachment at Left Upper Leg, Low, Open Approach (ICD-10-PCS; principal; 2018-11-06 08:00)
DX: E11.40 Type 2 diabetes mellitus with diabetic neuropathy, unspecified (principal); L97.422 Non-pressure chronic ulcer of left heel and midfoot with fat layer exposed; M86.672 Other chronic osteomyelitis, left ankle and foot; L03.116 Cellulitis of left lower limb; I12.0 Hypertensive chronic kidney disease with stage 5 chronic kidney disease or end stage renal disease; E44.1 Mild protein-calorie malnutrition; T81.72XA Complication of vein following a procedure, not elsewhere classified, initial encounter; N17.9 Acute kidney failure, unspecified; E11.69 Type 2 diabetes mellitus with other specified complication; E66.01 Morbid (severe) obesity due to excess calories; Z68.38 Body mass index [BMI] 38.0-38.9, adult; G47.33 Obstructive sleep apnea (adult) (pediatric); Z79.899 Other long term (current) drug therapy; Z79.4 Long term (current) use of insulin; K21.9 Gastro-esophageal reflux disease without esophagitis; F32.9 Major depressive disorder, single episode, unspecified; Z96.651 Presence of right artificial knee joint; Z87.891 Personal history of nicotine dependence; F41.9 Anxiety disorder, unspecified; E87.5 Hyperkalemia; I80.02 Phlebitis and thrombophlebitis of superficial vessels of left lower extremity; M90.8 Osteopathy in diseases classified elsewhere

== ENCOUNTER 2018-11-16 13:25 | Inpatient (IN) | payer MEDICARE, MEDICAID ==
[~2018-11-16] VITALS: Ht 195.6 cm; Wt 143.8 kg
[~2018-11-16 13:25] MED LIST changes: +BASA100I SC; +BUPR-365 PO; +CALC200T15 PO; +DIAZ5TAB PO; +LOVE0.8I3 SC; +MORP1INJ IV; +NIFE30TA7 PO; +OXYCO5TA PO
[2018-11-16] MEDS ORDERED: OMEP20CA4 PO (15:47)
[2018-11-16] MEDS ORDERED: CALC200T15 PO (15:47)
[2018-11-16] MEDS ORDERED: LOVE0.8I3 SC (15:47)
[2018-11-16] MEDS ORDERED: NIFE90TA20 PO (15:47)
[2018-11-16] MEDS ORDERED: DIAZ5TAB PO (15:47)
[2018-11-16] MEDS ORDERED: WARF-22 PO (15:47)
[2018-11-16] MEDS ORDERED: OXYC-517 PO (15:47)
[2018-11-16] MEDS ORDERED: PERCOCET 5MG/325MG TAB PO ONE (17:15)
[2018-11-16] MEDS: WARFARIN SOD 5 MG TAB PO SCH (18:18)
[2018-11-16] MEDS ORDERED: DEXTROSE 50% 50 ML SYRINGE IV PRN (18:45)
[2018-11-16] MEDS ORDERED: BISACODYL 10 MG SUPP PR PRN (18:45)
[2018-11-16] MEDS ORDERED: MOM 30ML SUSPENSION UDC PO PRN (18:45)
[2018-11-16] MEDS ORDERED: GLUCOSE 4 GM CHEW TABLET PO PRN (18:45)
[2018-11-16] MEDS ORDERED: CALCIUM CARBONATE 500 MG CHEW U/D PO PRN (18:45)
[2018-11-16] MEDS ORDERED: ONDANSETRON 4 MG TAB (S0181) PO PRN (18:45)
[2018-11-16] MEDS ORDERED: GLUCAGON FOR INJ 1 MG VIAL (J1610) SC PRN (18:45)
[2018-11-16] MEDS ORDERED: PILL CUTTER 1 EACH XX PRN (19:00)
[2018-11-16 20:03] VITALS: BP 137/66
[2018-11-16] MEDS: DOCUSATE SODIUM 100 MG CAP PO SCH ×3 (20:32→21:00)
[2018-11-16] MEDS: CETIRIZINE (ZyrTEC) 10 MG TAB PO SCH (20:33)
[2018-11-16] MEDS: SENNA 8.6 MG TAB (SENOKOT) PO SCH (20:34)
[2018-11-16] MEDS: ATORVASTATIN 10 MG TAB PO SCH (20:34)
[2018-11-16] MEDS: amLODIPine 5 MG TAB PO SCH (20:35)
[2018-11-16] MEDS: ENALAPRIL MALEATE 10 MG TAB PO SCH (20:35)
[2018-11-16] MEDS: ENOXAPARIN 150 MG/ML SYR (J1650) SC SCH (20:35)
[2018-11-16] MEDS: CARVedilol 12.5 MG TAB PO SCH (20:36)
[2018-11-16] MEDS: HumaLOG INSULIN (NovoLOG) PER UNIT SC SCH (20:38)
[2018-11-16] MEDS: LEVEMIR (INSULIN DETEMIR) 1 UNITS/0.01ML SC SCH (20:38)
[2018-11-16] MEDS: oxyCODONE 5MG TAB PO PRN (20:54)
[2018-11-16] MEDS: ACETAMINOPHEN 500 MG TAB PO SCH (20:55)
[2018-11-16] MEDS ORDERED: AMITRIPTYLINE 25 MG TAB PO SCH (21:00)
[2018-11-17] MEDS: oxyCODONE 5MG TAB PO PRN ×5 (01:13→21:08)
[2018-11-17 05:53] VITALS: BP 130/67
[2018-11-17 07:10] LABS: BASO # 0.1 10^3/uL (0.0-0.2); BASO % 0.9 % (0.0-1.0); EOS # 0.7 10^3/uL (0.0-0.50); HEMOGLOBIN 13.7 g/dl (13.5-17.5); LYMPH # 1.8 10^3/uL (1.5-4.5); MEAN CORPUSCULAR HEMOGLOBIN 23.4 pg (27.0-33.0); MEAN CORPUSCULAR HGB CONC 30.4 g/dl (32.0-36.5); MEAN CORPUSCULAR VOLUME 76.9 fl (80.0-96.0); MONO # 0.5 10^3/uL (0.0-0.8); MONO % 5.2 % (0.0-5.0); NEUTROPHILS # 6.4 10^3/uL (1.8-7.7); NEUTROPHILS % 66.7 % (36.0-66.0); PLATELET COUNT, AUTOMATED 522 10^3/uL (150-450); RED BLOOD COUNT 5.85 10^6/uL (4.30-6.10); WHITE BLOOD COUNT 9.6 10^3/uL (4.0-10.0)
[2018-11-17 07:31] LABS: BILIRUBIN,TOTAL 0.3 MG/DL (0.2-1.0); CALCIUM LEVEL 9.7 MG/DL (8.5-10.1); CREATININE FOR GFR 2.05 MG/DL (0.70-1.30); GLOMERULAR FILTRATION RATE 35.7 (>56); POTASSIUM SERUM 4.6 MEQ/L (3.5-5.1)
[2018-11-17] MEDS: HumaLOG INSULIN (NovoLOG) PER UNIT SC SCH ×4 (08:13→21:09)
[2018-11-17] MEDS: ENOXAPARIN 150 MG/ML SYR (J1650) SC SCH ×3 (08:15→21:10)
[2018-11-17] MEDS: ACETAMINOPHEN 500 MG TAB PO SCH ×3 (08:16→21:07)
[2018-11-17] MEDS: amLODIPine 5 MG TAB PO SCH (08:16)
[2018-11-17] MEDS: CARVedilol 12.5 MG TAB PO SCH ×2 (08:17→21:08)
[2018-11-17] MEDS: NIFEdipine 30 MG XL TAB PO SCH (08:18)
[2018-11-17] MEDS: OMEPRAZOLE 20 MG CAP PO SCH (08:18)
[2018-11-17] MEDS: ENALAPRIL MALEATE 10 MG TAB PO SCH ×2 (08:18→21:07)
[2018-11-17] MEDS: buPROPion **XL** TABLET 150MG (WELLBUTRIN XL) PO SCH (08:19)
[2018-11-17] MEDS: DOCUSATE SODIUM 100 MG CAP PO SCH ×2 (08:19→21:00)
[2018-11-17] MEDS: ASPIRIN 81 MG CHEW TABLET PO SCH (08:19)
[2018-11-17 10:17] LABS: INR 1.29; PROTHROMBIN TIME 15.8 SECONDS (11.8-14.0)
--- NOTE | 2018-11-17 10:23 | IPNPDOC ---
Subjective Date Seen The patient was seen on 11/17/18. Subjective Chief Complaint/HPI Javier [id number] male recently discharged from [facility] after treatment of chronic left heel wound ulcer. Patient has had this injury for years stemming from an initial injury when he had stepped on a nail which went into the bone of his left calcaneus. Due to nonhealing ulcer, with bone infection- osteomyelitis, the decision was therefore made to proceed with [id number] amputation. That was completed, 11/06/2018. Post stabilization. He has been discharged to the inpatient rehabilitation unit for mobilization Events since last encounter On assessment, patient has no complaints, he denies chills, chest pain, he de nies shortness of breath, he does have pain to his left stump Objective Physical Examination Other physical findings GENERAL: NAD SKIN : Warm, dry intact HEENT: Atraumatic, normocephalic, PERRL, moist mucous membrane CARDIOVASCULAR: Regular rate and rhythm, S1S2, no JVD RESP: CTAB, no accessory muscle use noted ABDOMEN: BS+ non distended non tender MS: left BKA with pressure dressing NEURO: Alert and oriented x 3, CN2-12 grossly intact PSYCH: no anxiety or agitation, appropriate mood and affect. Assessment /Plan Assessment Left heel cellulitis, nonhealing ulcer -S/P left BKA - Rehabilitation per primary team Diabetes mellitus. - Caloric controlled diet -Insulin for coverage - Fingerstick checks prior to meals and at bedtime Obstructive sleep apnea - CPAP at bedtime Hypertension - Blood pressure monitoring per unit protocol -Target systolic blood pressure less than 1 40 mmHg Chronic kidney disease 3 -Avoid hypotension or hypertension -Avoid nephrotoxic medications DVT right upper extremity. - Continued on Coumadin with INR monitoring - Lovenox subcutaneous therapeutic dosing Plan/VTE VTE Prophylaxis Ordered?: Yes VS, I&O, 24H, Fishbone Vital Signs/I&O Vital Signs Date Time Temp Pulse Resp B/P (MAP) Pulse Ox O2 Delivery O2 Flow Rate FiO2 11/17/18 08:45 18 11/17/18 08:18 130/67 11/17/18 08:17 70 11/17/18 05:53 97.5 95 I&O- Last 24 Hours up to 6 AM 11/17/18 06:00 Intake Total 480 ml Output Total 1525 ml Balance -1045 ml Laboratory Data 24H LABS Laboratory Tests 2 11/16/18 17:00: Bedside Glucose (Misc Panel) 199H 11/16/18 20:00: Bedside Glucose (Misc Panel) 292H 11/17/18 06:21: Bedside Glucose (Misc Panel) 288H 11/17/18 06:50: Immature Granulocyte % (Auto) 1.2, White Blood Count 9.6, Red Blood Count 5.85, Hemoglobin 13.7, Hematocrit 45.0, Mean Corpuscular Volume 76.9L, Mean Corpuscular Hemoglobin 23.4L, Mean Corpuscular Hemoglobin Concent 30.4L, Red Cell Distribution Width 17.9H, Platelet Count 522H, Neutrophils (%) (Auto) 66.7H, Lymphocytes (%) (Auto) 19.0L, Monocytes (%) (Auto) 5.2H, Eosinophils (%) (Auto) 7.0H, Basophils (%) (Auto) 0.9, Neutrophils # (Auto) 6.4, Lymphocytes # (Auto) 1.8, Monocytes # (Auto) 0.5, Eosinophils # (Auto) 0.7H, Basophils # (Auto) 0.1, Nucleated Red Blood Cells % (auto) 0.0, Anion Gap 6L, Glomerular Filtration Rate 35.7L, Blood Urea Nitrogen 35H, Creatinine 2.05H, Sodium Level 136, Potassium Level 4.6, Chloride Level 106, Carbon Dioxide Level 24, Calcium Level 9.7, Aspartate Amino Transf (AST/SGOT) 11, Alanine Aminotransferase (ALT/SGPT) 16, Alkaline Phosphatase 99, Total Bilirubin 0.3, Total Protein 7.0, Albumin 3.0L, Albumin/Globulin Ratio 0.75L CBC/BMP Laboratory Tests 11/17/18 06:50 Red Blood Count 5.85, Mean Corpuscular Volume 76.9 L, Mean Corpuscular Hemoglobin 23.4 L, Mean Corpuscular Hemoglobin Concent 30.4 L, Red Cell Dis tribution Width 17.9 H, Neutrophils (%) (Auto) 66.7 H, Lymphocytes (%) (Auto) 19.0 L, Monocytes (%) (Auto) 5.2 H, Eosinophils (%) (Auto) 7.0 H, Basophils (%) (Auto) 0.9, Neutrophils # (Auto) 6.4, Lymphocytes # (Auto) 1.8, Monocytes # (Auto) 0.5, Eosinophils # (Auto) 0.7 H, Basophils # (Auto) 0.1, Calcium Level 9.7, Aspartate Amino Transf (AST/SGOT) 11, Alanine Aminotransferase (ALT/SGPT) 16, Alkaline Phosphatase 99, Total Bilirubin 0.3, Total Protein 7.0, Albumin 3.0 [facility] SIMMONS [facility] Nov 17, 2018 10:23
--- NOTE | 2018-11-17 13:45 | HPEPDOC ---
[employer] Grinder Note DATE OF ADMISSION: Nov 16, 2018 at 15:25 SOURCE OF ADMISSION INFORMATION: patient and [facility] records CHIEF COMPLAINT: left BKA HISTORY OF PRESENT ILLNESS: 58M pmh HTN, DM, GERD, right upper extremity DVT, SARAH, Depression, chronic left foot ulcer with recent wound vac placement presented to [facility] ED on 10/29/18 with poor wound healing despite being treated at the wound care clinic and reported persistent bleeding of his heel with fevers, chills, and night sweats. Left foot Xray showed, There is no acute fracture or dislocation. There is severe narro wing of thefirst metatarsophalangeal joint space with associated osteophyte formation. Marked atherosclerotic disease involves the tarsal and tarsometatarsal joint spaces. MR of his foot however revealed, Plantar hind foot soft tissue ulceration and inflammation, with osteomyelitis changes involvi ng the plantar posterior calcaneus. He was admitted and evaluated by ID who recommended IV Zosyn. He was give the option of heal calcaneus resection versus BKA and opted for amputation . He underwent a left below-knee amputation on 11/06/18 for osteomyelitis and non-healing ulcer performed by Dr. Hope. He had significant post-operative pain and he was maintained on a heparin drip with eventual initiation of warfarin bridge for pmh of DVT. He finished up his course of Zosyn, gradually began to participate in therapy where he was found to have significant mobility and ADL impairments and deemed medically appropriate for discharge to ARU on 11/16/18 having been placed on Lovenox with a Coumadin bridge. REVIEW OF SYSTEMS: The following is a completed review of systems and has been reviewed. Review of systems otherwise unremarkable. PAIN: Patient self reports left residual limb pain EYES: no recent vision changes EARS, NOSE, & THROAT: denies dysphagia, no rhinorrhea CARDIOVASCULAR: denies chest pain/palpitations PULMONARY: Negative. Denies shortness of breath GASTROINTESTINAL: no diarrhea/constipation GENITOURINARY: no dysuria MUSCULOSKELETAL: left BKA, chronic low back pain HEMATOLOGICAL: Negative SKIN: left residual limb incision PSYCHIATRIC: Unremarkable All other review of systems found to be negative. PAST MEDICAL HISTORY: as per HPI PAST SURGICAL HISTORY: tonsillectomy, hernia repair x 2, left foot I&D, right hallux amputation, right TKR ALLERGIES: Please see below. MEDICATIONS: Please see below. FAMILY HISTORY: mother with eart disease, siblings with DM SOCIAL HISTORY: homeless but applying for housing through [facility], no ETOH, +marijuana, quit smoking DIET: consistent carb PHYSICAL EXAMINATION: VITAL SIGNS: Please see below. GENERAL: Pleasant and cooperative. No acute distress. HEENT: PERRL. Extraocular movements intact. Clear conjunctiva CARDIOVASCULAR: Regular rate and rhythm. No murmurs, rubs, or gallops LUNGS: Clear to auscultation bilaterally. No wheezes. No rhonchi ABDOMEN: Soft, nontender, nondistended. Positive bowel sounds. Normal active bowel sounds NEUROLOGICAL: Alert and oriented times three. Cranial nerves II through XII g rossly intact. Sensation grossly intact except diminished in LLE and distal RLE EXTREMITIES: 5\5 strength bilateral upper extremities. 5-\5 strength right lower extremity. 5-/5 strength in left hip flexors and knee flexors SKIN: left residual limb incision c/d/i without induration, mild erythema IMAGING: Imaging documentation personally reviewed by record FUNCTIONAL STATUS: Premorbid: Independent with all activities of daily life as well as mobility with a cane On Admission: contact guard-min assist for functional transfers, able to ambulate 2 feet contact guard with RW and standby assist for toileting GOALS: Mod-I with RW household distances, balance training, Mod-I for dressing, bathing, grooming, toileting, medical optimization, pain management, residual limb care education, assess for DMEs. ASSESSMENT:58-year-old M with past medical history of HTN, DM, chronic wound who presents status post left BKA. PLAN: 1. Rehab: PT, OT, assess for DME needs -goal is to stretch and strengthen his residual limb, prevent knee/hip flexion contractures, utilize desensitization techniques, strengthen core and upper body strength for safe and effective wheelchair propulsion 2. Neuro: peripheral neuropathy- c/u tight glycemic control 3. Cardio: pmh HTN and HLD, c/u amlodipine, Carvedilol, Enalapril, and nifedipine- ASA and statin, medicine consulted to assist in management 4. Resp: encourage incentive spirometry, may use home CPAP for SARAH 5. Endo: pmh DM, c/u Levemir and ISS 6. Vasc: pmh RUE DVT, c/u Lovenox BID and bridge to Coumadin, monitor daily INRs 7. : monitor PVRs 8. GIppx: omeprazole 9. Pain: oxycodone, Elavil, and Tylenol 10. DVT ppx: Lovenox-->warfarin bridge 11. Skin: BID dressing changes 12. Dispo: TBD POST ADMISSION PHYSICIAN EVALUATION: Medical and functional status: Description of medical status, medical assessment: As above. Rehabilitation diagnosis and current and prior cold morbid medical conditions as above. Risk of complications and plans to mitigate them as above. Description of functional status current status is as above. Prior status as above. Status compared to preadmission: There are no clinically significant differences between the patient's current status and the information described on the preadmission screening document. Treatment plan anticipated: Treatment plan is as described above. Required disciplines including physical therapy, occupational therapy, others as noted above. Intensity of services: 3 hours a day, 6 days a week. Special considerations: There are no specific special or safety considerations that would likely preclude immediate implementation of an intensive rehabilitation program or subsequently influence the plan of care. ATTESTATION: Considering all the information above, it is my best judgment that this patient requires intensive rehabilitation therapy as described above and an inpatient hospital environment due to the complexity of nursing, medical, and rehabilitation needs required by the patient. Furthermore, this patient can reasonably be expected to participate in an benefit from an inpatient rehabilitation stay with an interdisciplinary team approach to the delivery of rehabilitation care under the direction and supervision of rehabilitation physician. PROGNOSIS: Good ESTIMATED LENGTH OF STAY:8-10 days. PROJECTED DISCHARGE DESTINATION: Home to [facility] approved and provided apartment with family support and any durable medical equipment required to increase functional safety and mobility TIME SPENT COUNSELING AND COORDINATING INITIAL CARE: Greater than 70 minutes. Vital Signs Vital Sign - Last 24 Hours 11/16/18 11/16/18 11/16/18 11/16/18 17:20 18:15 20:03 20:35 Temp 97.9 Pulse 88 88 Resp 18 18 18 B/P (MAP) 137/66 (89) 137/66 Pulse Ox 94 11/16/18 11/16/18 11/16/18 11/17/18 20:35 20:36 20:54 01:13 Pulse 88 Resp 18 18 B/P (MAP) 137/66 137/66 11/17/18 11/17/18 11/17/18 11/17/18 05:53 08:14 08:16 08:17 Temp 97.5 Pulse 70 70 70 Resp 18 18 B/P (MAP) 130/67 (88) 130/67 130/67 Pulse Ox 95 11/17/18 11/17/18 11/17/18 11/17/18 08:18 08:18 08:45 12:16 Resp 18 18 B/P (MAP) 130/67 130/67 Laboratory Data CBC/BMP Laboratory Tests 11/17/18 06:50 Red Blood Count 5.85, Mean Corpuscular Volume 76.9 L, Mean Corpuscular Hemoglobin 23.4 L, Mean Corpuscular Hemoglobin Concent 30.4 L, Red Cell Distribution Width 17.9 H, Neutrophils (%) (Auto) 66.7 H, Lymphocytes (%) (Auto) 19.0 L, Monocytes (%) (Auto) 5.2 H, Eosinophils (%) (Auto) 7.0 H, Basophils (%) (Auto) 0.9, Neutrophils # (Auto) 6.4, Lymphocytes # (Auto) 1.8, Monocytes # (Auto) 0.5, Eosinophils # (Auto) 0.7 H, Basophils # (Auto) 0.1, Calcium Level 9.7, Aspartate Amino Transf (AST/SGOT) 11, Alanine Aminotransferase (ALT/SGPT) 16, Alkaline Phosphatase 99, Total Bilirubin 0.3, Total Protein 7.0, Albumin 3.0 L Labs 24H Laboratory Tests 2 11/16/18 17:00: Bedside Glucose (Misc Panel) 199H 11/16/18 20:00: Bedside Glucose (Misc Panel) 292H 11/17/18 06:21: Bedside Glucose (Misc Panel) 288H 11/17/18 06:50: Immature Granulocyte % (Auto) 1.2, White Blood Count 9.6, Red Blood Count 5.85, Hemoglobin 13.7, Hematocrit 45.0, Mean Corpuscular Volume 76.9L, Mean Corpuscular Hemoglobin 23.4L, Mean Corpuscular Hemoglobin Concent 30.4L, Red Cell Distribution Width 17.9H, Platelet Count 522H, Neutrophils (%) (Auto) 66.7H, Lymphocytes (%) (Auto) 19.0L, Monocytes (%) (Auto) 5.2H, Eosinophils (%) (Auto) 7.0H, Basophils (%) (Auto) 0.9, Neutrophils # (Auto) 6.4, Lymphocytes # (Auto) 1.8, Monocytes # (Auto) 0.5, Eosinophils # (Auto) 0.7H, Basophils # (Auto) 0.1, Nucleated Red Blood Cells % (auto) 0.0, Prothrombin Time 15.8H, Prothromb Time International Ratio 1.29, Anion Gap 6L, Glomerular Filtration Rate 35.7L, Blood Urea Nitrogen 35H, Creatinine 2.05H, Sodium Level 136, Potassium Level 4.6, Chloride Level 106, Carbon Dioxide Level 24, Calcium Level 9.7, Aspartate Amino Transf (AST/SGOT) 11, Alanine Aminotransferase (ALT/SGPT) 16, Alkaline Phosphatase 99, Total Bilirubin 0.3, Total Protein 7.0, Albumin 3.0L, Albumin/Globulin Ratio 0.75L 11/17/18 11:37: Bedside Glucose (Misc Panel) 182H FSBS Laboratory Tests Test 11/16/18 17:00 11/16/18 20:00 11/17/18 06:21 11/17/18 11:37 Range/Units Bedside Glucose (Misc Panel) 199 292 288 182 70-105 MG/DL Home Medications Scheduled Amitriptyline HCl (Amitriptyline HCl) 25 Mg Tablet, 25 MG PO QHS, (Reported) Amlodipine Besylate (Amlodipine Besylate) 5 Mg Tablet, 5 MG PO BID, (Reported) Aspirin (Aspirin EC) 81 Mg Tablet.dr, 81 MG PO DAILY, (Reported) Atorvastatin Calcium (Atorvastatin Calcium) 10 Mg Tablet, 10 MG PO QHS, (Reported) Bupropion HCl (Bupropion Xl) 150 Mg Tab.er.24h, 150 MG PO DAILY, (Reported) Carvedilol (Carvedilol) 25 Mg Tablet, 25 MG PO BID, (Reported) Enalapril Maleate (Enalapril Maleate) 20 Mg Tablet, 20 MG PO BID, (Reported) Enoxaparin Sodium (Lovenox) 150 Mg/1 Ml Syringe, 150 MG SC Q12H, (Reported) STARTED AT [facility] Esomeprazole Magnesium (Nexium) 40 Mg Capsule.dr, 40 MG PO DAILY, (Reported) Insulin Aspart (Novolog) 100 Unit/1 Ml Cartridge, 1 DOSE SC ACHS, (Reported) PER SLIDING SCALE Insulin Detemir (Levemir) 100 Unit/1 Ml Vial, 68 UNITS SC DAILY, (Reported) Levocetirizine Dihydrochloride (Levocetirizine Dihydrochloride) 5 Mg Tablet, 5 MG PO QHS, (Reported) Nifedipine (Nifedipine ER) 90 Mg Tablet.er, 90 MG PO DAILY, (Reported) STARTED AT [facility] Warfarin Sodium (Warfarin Sodium) 10 Mg Tablet, 10 MG PO QPM, (Reported) STARTED AT [facility] - DUE TO BEGIN 11/16/18 Scheduled PRN Calcium Carbonate (Calcium Carbonate) 200 Mg Tab.chew, 1,000 MG PO Q8H PRN for HEARTBURN, (Reported) Clotrimazole (Lotrimin AF) 1 % Cre, 1 DOSE TOP BID PRN for ITCHING, (Reported) APPLY TO FEET Diazepam (Diazepam) 5 Mg Tablet, 5 MG PO Q6H PRN for ANXIETY, (Reported) Oxycodone HCl (Oxycodone HCl) 5 Mg Tablet, 10 MG PO Q4H PRN for PAIN, (Reported) STARTED AT [facility] Allergies Coded Allergies: povidone-iodine (Verified Allergy, Unknown, 08/18/18) soap (Verified Allergy, Unknown, 08/18/18) A-FIB/CHADSVASC A-FIB History Current/History of A-Fib/PAF?: No KEVIN GODOY MD Nov 17, 2018 13:28
[2018-11-17 14:00] VITALS: BP 153/98
[2018-11-17] MEDS: WARFARIN SOD 5 MG TAB PO SCH (16:19)
[2018-11-17 20:51] VITALS: BP 154/69
[2018-11-17] MEDS: ATORVASTATIN 10 MG TAB PO SCH (21:08)
[2018-11-17] MEDS: AMITRIPTYLINE 25 MG TAB PO SCH (21:09)
[2018-11-17] MEDS: LEVEMIR (INSULIN DETEMIR) 1 UNITS/0.01ML SC SCH (21:09)
[2018-11-17] MEDS: CETIRIZINE (ZyrTEC) 10 MG TAB PO SCH (21:09)
[2018-11-17] MEDS: SENNA 8.6 MG TAB (SENOKOT) PO SCH (21:10)
[2018-11-18] MEDS: oxyCODONE 5MG TAB PO PRN ×5 (02:03→21:38)
[2018-11-18 06:24] VITALS: BP 145/57
[2018-11-18 07:09] LABS: INR 1.34; PROTHROMBIN TIME 16.3 SECONDS (11.8-14.0)
[2018-11-18] MEDS: ASPIRIN 81 MG CHEW TABLET PO SCH (08:31)
[2018-11-18] MEDS: OMEPRAZOLE 20 MG CAP PO SCH (08:32)
[2018-11-18] MEDS: ENALAPRIL MALEATE 10 MG TAB PO SCH ×2 (08:32→21:37)
[2018-11-18] MEDS: NIFEdipine 30 MG XL TAB PO SCH (08:32)
[2018-11-18] MEDS: buPROPion **XL** TABLET 150MG (WELLBUTRIN XL) PO SCH (08:33)
[2018-11-18] MEDS: ENOXAPARIN 150 MG/ML SYR (J1650) SC SCH ×2 (08:33→21:39)
[2018-11-18] MEDS: CARVedilol 12.5 MG TAB PO SCH ×2 (08:33→21:40)
[2018-11-18] MEDS: DOCUSATE SODIUM 100 MG CAP PO SCH ×3 (08:34→21:39)
[2018-11-18] MEDS: HumaLOG INSULIN (NovoLOG) PER UNIT SC SCH ×4 (08:35→21:00)
[2018-11-18] MEDS: ACETAMINOPHEN 500 MG TAB PO SCH ×3 (09:42→21:38)
--- NOTE | 2018-11-18 09:54 | IPNPDOC ---
PM&R Progress Note DATE OF SERVICE: Nov 17, 2018 Fall Intern Progress Note Subjective: Patient reporting residual limb burning pain worse at night. REVIEW OF SYSTEMS: The following is a completed review of systems and has been reviewed. Review of systems otherwise unremarkable. PAIN: Patient self reports left residual limb pain EYES: no recent vision changes EARS, NOSE, & THROAT: denies dysphagia, no rhinorrhea CARDIOVASCULAR: denies chest pain/palpitations PULMONARY: Negative. Denies shortness of breath GASTROINTESTINAL: no diarrhea/constipation GENITOURINARY: no dysuria MUSCULOSKELETAL: left BKA, chronic low back pain HEMATOLOGICAL: Negative SKIN: left residual limb incision PSYCHIATRIC: Unremarkable All other review of systems found to be negative. PHYSICAL EXAMINATION: VITAL SIGNS: Please see below. GENERAL: Pleasant and cooperative. No acute distress. HEENT: PERRL. Extraocular movements intact. Clear conjunctiva CARDIOVASCULAR: Regular rate and rhythm. No murmurs, rubs, or gallops LUNGS: Clear to auscultation bilaterally. No wheezes. No rhonchi ABDOMEN: Soft, nontender, nondistended. Positive bowel sounds. Normal active bowel sounds NEUROLOGICAL: Alert and oriented times three. Cranial nerves II through XII grossly intact. Sensation grossly intact except diminished in LLE and distal RLE EXTREMITIES: 5\5 strength bilateral upper extremities. 5-\5 strength right lower extremity. 5-/5 strength in left hip flexors and knee flexors SKIN: left residual limb incision c/d/i without induration, mild erythema ASSESSMENT:58-year-old M with past medical history of HTN, DM, chronic wound who presents status post left BKA. PLAN: 1. Rehab: PT, OT, assess for DME needs -goal is to stretch and strengthen his residual limb, prevent knee/hip flexion contractures, utilize desensitization techniques, strengthen core and upper body strength for safe and effective wheelchair propulsion 2. Neuro: peripheral neuropathy- c/u tight glycemic control 3. Cardio: pmh HTN and HLD, c/u amlodipine, Carvedilol, Enalapril, and nifedipine- ASA and statin, medicine consulted to assist in management 4. Resp: encourage incentive spirometry, may use home CPAP for SARAH 5. Endo: pmh DM, c/u Levemir and ISS 6. Vasc: pmh RUE DVT, c/u Lovenox BID and bridge to Coumadin, monitor daily INRs 7. : monitor PVRs 8. GIppx: omeprazole 9. Pain: oxycodone, will increase Elavil to 50mg qHS, and Tylenol 10. DVT ppx: Lovenox-->warfarin bridge 11. Skin: BID dressing changes 12. Dispo: TBD Allergies Coded Allergies: povidone-iodine (Verified Allergy, Unknown, 08/18/18) soap (Verified Allergy, Unknown, 08/18/18) Vital Signs Vital Signs Date Time Temp Pulse Resp B/P (MAP) Pulse Ox O2 Delivery O2 Flow Rate FiO2 11/18/18 08:33 78 145/57 11/18/18 06:50 18 11/18/18 06:24 98.2 18 Laboratory Data Labs 24H Laboratory Tests 2 11/17/18 11:37: Bedside Glucose (Misc Panel) 182H 11/17/18 16:46: Bedside Glucose (Misc Panel) 251H 11/17/18 19:45: Urine Color YELLOW, Urine Appearance HAZY, Urine pH 5.0, Urine Specific [place] 1.016, Urine Protein 3+H, Urine Glucose (UA) 1+H, Urine Ketones NEGATIVE, Urine Blood NEGATIVE, Urine Nitrite NEGATIVE, Urine Bilirubin NEGATIVE, Urine Urobilinogen 0.2, Urine Leukocyte Esterase NEGATIVE, Urine WBC (Auto) 3, Urine RBC (Auto) 4H, Urine Hyaline Casts (Auto) 0, Urine Bacteria (Auto) NEGATIVE, Urine Squamous Epithelial Cells 1, Urine Mucus (Auto) SMALL, Urine Sperm (Auto) 11/17/18 20:45: Bedside Glucose (Misc Panel) 270H 11/18/18 06:07: Bedside Glucose (Misc Panel) 283H 11/18/18 06:42: Prothrombin Time 16.3H, Prothromb Time International Ratio 1.34 Current Medications Current Medications Current Medications Acetaminophen (Tylenol Tab) 1,000 mg TID PO Last administered on 11/18/18at 09:42; Start 11/16/18 at 21:00 Amitriptyline HCl (Elavil) 25 mg QHS PO Last administered on 11/16/18at 20:34; Start 11/16/18 at 21:00; Stop 11/17/18 at 14:27; Status DC Amitriptyline HCl (Elavil) 50 mg QHS PO Last administered on 11/17/18 21:09; Start 11/17/18 at 21:00 Amlodipine Besylate (Norvasc) 5 mg BID PO Last administered on 11/17/18 08:16; Start 11/16/18 at 21:00; Stop 11/17/18 at 14:27; Status DC Aspirin (Aspirin Chewable) 81 mg DAILY PO Last administered on 11/18/18 08:31; Start 11/17/18 at 09:00 Atorvastatin Calcium (Lipitor) 10 mg QHS PO Last administered on 11/17/18at 21:08; Start 11/16/18 at 21:00 Bisacodyl (Dulcolax Suppository) 10 mg DAILYPRN PRN [place] CONSTIPATION; Start 11/16/18 at 18:45 Bupropion HCl (Wellbutrin Xl) 150 mg DAILY PO Last administered on 11/18/18 08:33; Start 11/17/18 at 09:00 Calcium Carbonate (Tums) 1,000 mg Q4HP PRN PO HEARTBURN; Start 11/16/18 at 18:45 Carvedilol (COReg) 25 mg BID PO Last administered on 11/18/18 08:33; Start 11/16/18 at 21:00 Cetirizine HCl (ZyrTEC) 5 mg QHS PO Last administered on 11/17/18 21:09; Start 11/16/18 at 21:00 Dextrose (Dextrose 50%) 25 ml ASDIRECTED PRN IV SEE LABEL COMMENTS; Start 11/16/18 at 18:45 Docusate Sodium (Colace) 100 mg BID PO ; Start 11/16/18 at 21:00 Enalapril Maleate (Vasotec) 20 mg BID PO Last administered on 11/18/18 08:32; Start 11/16/18 at 21:00 Enoxaparin Sodium (Lovenox) 150 mg Q12H SC Last administered on 11/18/18 08:33; Start 11/16/18 at 21:00 Glucagon (Glucagon) 1 mg ASDIRECTED PRN SC SEE LABEL COMMENTS; Start 11/16/18 at 18:45 Glucose (Glucose) 16 GM ASDIRECTED PRN PO SEE LABEL COMMENTS; Start 11/16/18 at 18:45 Home Med (Med Rec Complete!) ASDIRECTED XX ; Start 11/16/18 at 16:00; Stop 11/16/18 at 16:00; Status DC Insulin Detemir (Levemir Insulin) 10 units QHS SC Last administered on 11/17/18 21:09; Start 11/16/18 at 21:00 Insulin Human Lispro (HumaLOG INSULIN) SEE PROTOCOL TABLE AC SC Last administered on 11/18/18at 08:35; Start 11/17/18 at 07:30 Insulin Human Lispro (HumaLOG INSULIN) SEE PROTOCOL TABLE QHS SC Last administered on 11/17/18at 21:09; Start 11/16/18 at 21:00 Magnesium Hydroxide (Milk Of Magnesia) 30 ml DAILYPRN PRN PO CONSTIPATION; Start 11/16/18 at 18:45 Nifedipine (Procardia Xl) 90 mg DAILY PO Last administered on 11/18/18 08:32; Start 11/17/18 at 09:00 Omeprazole (PriLOSEC) 40 mg DAILY PO Last administered on 11/18/18at 08:32; Start 11/17/18 at 09:00 Ondansetron HCl (Zofran) 4 mg Q6HP PRN PO NAUSEA; Start 11/16/18 at 18:45 Oxycodone HCl (Roxicodone, Oxyir) 10 mg Q4HP PRN PO SEVERE PAIN (PS 8-10) Last administered on 11/18/18at 06:05; Start 11/16/18 at 17:45 Senna (Senokot) 1 tab QHS PO Last administered on 11/17/18 21:10; Start 11/16/18 at 21:00 Warfarin Sodium (Coumadin) 10 mg DAILY@1700 PO Last administered on 11/17/18 16:19; Start 11/16/18 at 17:00 KEVIN GODOY MD Nov 18, 2018 09:54
--- NOTE | 2018-11-18 10:41 | IPNPDOC ---
Text Note Date of Service The patient was seen on 11/18/18. NOTE Javier is 58-year-old male recently discharged from [facility] after treatment of chronic left heel wound ulcer. Patient has had this injury for years stemming from an initial injury when he had stepped on a nail which went into the bone of his left calcaneus. Due to nonhealing ulcer, with bone infection- osteomyelitis, the decision was therefore made to proceed with [id number] amputation-11/06/2018. Post stabilization. He has been discharged to the inpatient rehabilitation unit for mobilization Subjective: Has no complaints this morning. denies chest pain, denies SOB Objective GENERAL: NAD SKIN : Warm, dry intact HEENT: Atraumatic, normocephalic, PERRL, moist mucous membrane CARDIOVASCULAR: Regular rate and rhythm, S1S2, no JVD RESP: CTAB, no accessory muscle use noted ABDOMEN: BS+ non distended non tender MS: left BKA with pressure dressing NEURO: Alert and oriented x 3, CN2-12 grossly intact PSYCH: no anxiety or agitation, appropriate mood and affect. Assessment /Plan Left heel cellulitis, nonhealing ulcer -S/P left BKA - Rehabilitation per primary team Diabetes mellitus. - Continue caloric controlled diet - Insulin for coverage - Fingerstick checks prior to meals and at bedtime Obstructive sleep apnea - CPAP at bedtime Hypertension - continue nifedipine and enalapril -Blood pressure monitoring per unit protocol -Target systolic blood pressure less than 140 mmHg Chronic kidney disease 3 -Avoid hypotension or hypertension -Avoid nephrotoxic medications DVT right upper extremity. - INR is 1.3 today. -patient was given 10mg of coumadin yesterday -sub-therapeutic on high dose coumadin -Continued on Coumadin with INR monitoring - also continued on lovenox subcutaneous therapeutic dosing VS,Fishbone, I+O VS, Fishbone, I+O Vital Signs Date Time Temp Pulse Resp B/P (MAP) Pulse Ox O2 Delivery O2 Flow Rate FiO2 11/18/18 10:22 18 18 11/18/18 08:33 78 145/57 11/18/18 06:24 98.2 I&O- Last 24 Hours up to 6 AM 11/18/18 06:00 Intake Total 1680 ml Output Total 1850 ml Balance -170 ml TEDDY CHILEL OFFICE COORDINATOR RECEPTIONIST Nov 18, 2018 10:41
[2018-11-18 14:00] VITALS: BP_SYST 125; BP_SYST 148; BP_DIAS 60; BP_DIAS 84
[2018-11-18] MEDS: WARFARIN SOD 5 MG TAB PO SCH (16:44)
[2018-11-18] MEDS ORDERED: GABAPENTIN 300 MG CAP PO ONE (18:45)
[2018-11-18] MEDS: GABAPENTIN 300 MG CAP PO SCH (21:00)
[2018-11-18 21:30] VITALS: BP 134/66
[2018-11-18] MEDS: CETIRIZINE (ZyrTEC) 10 MG TAB PO SCH (21:37)
[2018-11-18] MEDS: SENNA 8.6 MG TAB (SENOKOT) PO SCH (21:37)
[2018-11-18] MEDS: AMITRIPTYLINE 25 MG TAB PO SCH (21:38)
[2018-11-18] MEDS: LEVEMIR (INSULIN DETEMIR) 1 UNITS/0.01ML SC SCH (21:39)
[2018-11-18] MEDS: ATORVASTATIN 10 MG TAB PO SCH (21:40)
[2018-11-19] MEDS: oxyCODONE 5MG TAB PO PRN ×5 (01:20→21:37)
[2018-11-19 06:00] VITALS: BP 149/58
[2018-11-19 07:00] LABS: HEMATOCRIT 43.2 % (42.0-52.0); MEAN CORPUSCULAR HEMOGLOBIN 23.8 pg (27.0-33.0); MEAN CORPUSCULAR HGB CONC 30.1 g/dl (32.0-36.5); PLATELET COUNT, AUTOMATED 491 10^3/uL (150-450); RED BLOOD COUNT 5.47 10^6/uL (4.30-6.10); WHITE BLOOD COUNT 8.7 10^3/uL (4.0-10.0)
[2018-11-19 07:14] LABS: INR 1.51; PROTHROMBIN TIME 17.9 SECONDS (11.8-14.0)
[2018-11-19 07:30] LABS: ALBUMIN 3.1 GM/DL (3.2-5.2); BILIRUBIN,TOTAL 0.2 MG/DL (0.2-1.0); CALCIUM LEVEL 8.6 MG/DL (8.5-10.1); CREATININE FOR GFR 2.02 MG/DL (0.70-1.30); GLOMERULAR FILTRATION RATE 36.3 (>56); MAGNESIUM LEVEL 1.6 MG/DL (1.8-2.4); POTASSIUM SERUM 4.7 MEQ/L (3.5-5.1); TOTAL PROTEIN 6.8 GM/DL (6.4-8.2)
[2018-11-19] MEDS: ASPIRIN 81 MG CHEW TABLET PO SCH (08:33)
[2018-11-19] MEDS: CARVedilol 12.5 MG TAB PO SCH ×2 (08:34→21:37)
[2018-11-19] MEDS: GABAPENTIN 300 MG CAP PO SCH ×3 (08:35→21:37)
[2018-11-19] MEDS: ENALAPRIL MALEATE 10 MG TAB PO SCH ×2 (08:35→21:36)
[2018-11-19] MEDS: ENOXAPARIN 150 MG/ML SYR (J1650) SC SCH ×2 (08:36→21:41)
[2018-11-19] MEDS: buPROPion **XL** TABLET 150MG (WELLBUTRIN XL) PO SCH (08:36)
[2018-11-19] MEDS: ACETAMINOPHEN 500 MG TAB PO SCH ×3 (08:37→21:41)
[2018-11-19] MEDS: HumaLOG INSULIN (NovoLOG) PER UNIT SC SCH ×4 (08:39→21:40)
[2018-11-19] MEDS: DOCUSATE SODIUM 100 MG CAP PO SCH ×2 (09:00→21:00)
[2018-11-19] MEDS: NIFEdipine 30 MG XL TAB PO SCH (10:06)
[2018-11-19] MEDS: OMEPRAZOLE 20 MG CAP PO SCH (10:06)
--- NOTE | 2018-11-19 10:51 | IPNPDOC ---
Text Note Date of Service The patient was seen on 11/19/18. NOTE Javier is a 58-year-old male recently discharged from [facility] s/p left BKA 11/06/2018. He was admitted to inpatient rehabilitation for mobilization. Subjective: Has no complaints today, pain is well controlled, denies chills, fever, denies chest pain, shortness of breath. Patient states he was on Eliquis for months for left upper extremity DVT. Was just changed to Coumadin during this hospitalization. Physical Examination Other physical findings GENERAL: NAD SKIN : Warm, dry intact HEENT: Atraumatic, normocephalic, PERRL, moist mucous membrane CARDIOVASCULAR: Regular rate and rhythm, S1S2, no JVD RESP: CTAB, no accessory muscle use noted ABDOMEN: BS+ non distended non tender MS: left BKA with pressure dressing NEURO: Alert and oriented x 3, CN2-12 grossly intact PSYCH: no anxiety or agitation, appropriate mood and affect. Assessment /Plan Assessment Left heel cellulitis, nonhealing ulcer -S/P left BKA - Rehabilitation per primary team DVT right upper extremity. -INR is 1.5 today -Discussed with pharmacist, who is familiar with patient's case -Patient apparently developed a blood clot while on Eliquis, which is why he was switched over to Coumadin -Continue Coumadin with full dose Lovenox for bridging Diabetes mellitus. - continue caloric controlled diet -Insulin for coverage - Fingerstick checks prior to meals and at bedtime Obstructive sleep apnea - CPAP at bedtime Hypertension - Blood pressure monitoring per unit protocol -Target systolic blood pressure less than 1 40 mmHg Chronic kidney disease 3 -Avoid hypotension or hypertension -Avoid nephrotoxic medications VS,Fishbone, I+O VS, Fishbone, I+O Laboratory Tests 11/19/18 06:40 Red Blood Count 5.47, Mean Corpuscular Volume 79.0 L, Mean Corpuscular Hemoglobin 23.8 L, Mean Corpuscular Hemoglobin Concent 30.1 L, Red Cell Distribution Width 17.9 H, Calcium Level 8.6, Aspartate Amino Transf (AST/SGOT) 9, Alanine Aminotransferase (ALT/SGPT) 16, Alkaline Phosphatase 96, Total Bilirubin 0.2, Total Protein 6.8, Albumin 3.1 L Vital Signs Date Time Temp Pulse Resp B/P (MAP) Pulse Ox O2 Delivery O2 Flow Rate FiO2 6/28/19 10:07 18 11/19/18 10:06 149/58 11/19/18 08:34 76 11/19/18 06:00 97.1 98 I&O- Last 24 Hours up to 6 AM 11/19/18 06:00 Intake Total 2400 ml Output Total 2450 ml Balance -50 ml TEDDY CHILEL [facility] Nov 19, 2018 10:51
[2018-11-19] MEDS: ISOSORBIDE MON. (IMDUR) 30 MG XR TAB PO SCH (12:36)
[2018-11-19 14:00] VITALS: BP 142/60
[2018-11-19] MEDS: WARFARIN SOD 5 MG TAB PO SCH (18:23)
[2018-11-19 20:00] VITALS: BP 134/71
[2018-11-19] MEDS ORDERED: APIXABAN 5 MG TAB (ELIQUIS) PO SCH (21:00)
[2018-11-19] MEDS: AMITRIPTYLINE 50 MG TAB PO SCH (21:35)
[2018-11-19] MEDS: SENNA 8.6 MG TAB (SENOKOT) PO SCH (21:36)
[2018-11-19] MEDS: ATORVASTATIN 10 MG TAB PO SCH (21:36)
[2018-11-19] MEDS: CETIRIZINE (ZyrTEC) 10 MG TAB PO SCH (21:38)
[2018-11-19] MEDS: LEVEMIR (INSULIN DETEMIR) 1 UNITS/0.01ML SC SCH (21:40)
[2018-11-20] MEDS: oxyCODONE 5MG TAB PO PRN ×5 (02:35→21:42)
[2018-11-20 06:00] VITALS: BP 127/62
[2018-11-20 07:10] LABS: INR 1.65; PROTHROMBIN TIME 19.3 SECONDS (11.8-14.0)
[2018-11-20] MEDS: GABAPENTIN 300 MG CAP PO SCH ×3 (08:34→21:42)
[2018-11-20] MEDS: ACETAMINOPHEN 500 MG TAB PO SCH ×3 (08:36→21:45)
[2018-11-20] MEDS: NIFEdipine 30 MG XL TAB PO SCH (08:37)
[2018-11-20] MEDS: ASPIRIN 81 MG CHEW TABLET PO SCH (08:37)
[2018-11-20] MEDS: HumaLOG INSULIN (NovoLOG) PER UNIT SC SCH ×4 (08:37→21:00)
[2018-11-20] MEDS: buPROPion **XL** TABLET 150MG (WELLBUTRIN XL) PO SCH (08:37)
[2018-11-20] MEDS: OMEPRAZOLE 20 MG CAP PO SCH (08:37)
[2018-11-20] MEDS: ENALAPRIL MALEATE 10 MG TAB PO SCH ×2 (08:38→21:45)
[2018-11-20] MEDS: ENOXAPARIN 150 MG/ML SYR (J1650) SC SCH ×2 (08:38→21:39)
[2018-11-20] MEDS: CARVedilol 12.5 MG TAB PO SCH ×2 (08:38→21:44)
[2018-11-20] MEDS: ISOSORBIDE MON. (IMDUR) 30 MG XR TAB PO SCH (08:39)
[2018-11-20] MEDS: DOCUSATE SODIUM 100 MG CAP PO SCH ×2 (08:39→21:00)
[2018-11-20 14:00] VITALS: BP 118/77
--- NOTE | 2018-11-20 16:56 | IPNPDOC ---
Subjective Date Seen The patient was seen on 11/20/18. Subjective Chief Complaint/HPI Patient seen and examined at bedside. No acute overnight events noted. Objective Physical Examination General Exam: Positive: Alert, Cooperative, No Acute Distress ENT Exam: Positive: Atraumatic, Mucous membr. moist/pink Neck Exam: Negative: JVD Chest Exam: Positive: Clear to auscultation, Normal air movement Heart Exam: Positive: Rate Normal, Normal S1, Normal S2 Abdomen Exam: Positive: Soft; Negative: Tenderness Extremity Exam: Positive: Other (s/p Left Foot BKA. Extremity wrapped in surgical dressing. ); Negative: Tenderness Psych Exam: Positive: Oriented x 3 Assessment /Plan Plan/VTE VTE Prophylaxis Ordered?: Yes Plan Left heel cellulitis, nonhealing ulcer in a patient with Hx of DM S/P left BKA on 11/[address] Go of Vascular Surgery Rehabilitation per primary team DVT right upper extremity Failure of Eliquis INR is 1.65 this AM Continue Coumadin with full dose Lovenox for bridging Hypertension Cont Enalapril, Coreg, Imdur, Nifedipine Diabetes mellitus. Cont Insulin coverage as ordered Chronic kidney disease Stage III Serum Cr at baseline Obstructive sleep apnea CPAP at bedtime Anxiety/Depression Cont current regimen GERD Cont PPI DVT Prophylaxis Already on Lovenox/Coumadin Bridge VS, I&O, 24H, Fishbone Vital Signs/I&O Vital Signs Date Time Temp Pulse Resp B/P (MAP) Pulse Ox O2 Delivery O2 Flow Rate FiO2 11/20/18 14:00 97.6 65 16 118/77 (91) 94 I&O- Last 24 Hours up to 6 AM 11/20/18 06:00 Intake Total 2340 ml Output Total 2450 ml Balance -110 ml Laboratory Data 24H LABS Laboratory Tests 2 11/19/18 20:21: Bedside Glucose (Misc Panel) 290H 11/20/18 05:35: Bedside Glucose (Misc Panel) 222H 11/20/18 06:18: Prothrombin Time 19.3H, Prothromb Time International Ratio 1.65 11/20/18 11:42: Bedside Glucose (Misc Panel) 204H NINA DOTSON MD Nov 20, 2018 16:56
[2018-11-20] MEDS: WARFARIN SOD 5 MG TAB PO SCH (17:23)
[2018-11-20 20:00] VITALS: BP 137/78
[2018-11-20] MEDS: LEVEMIR (INSULIN DETEMIR) 1 UNITS/0.01ML SC SCH (21:39)
[2018-11-20] MEDS: ATORVASTATIN 10 MG TAB PO SCH (21:41)
[2018-11-20] MEDS: AMITRIPTYLINE 50 MG TAB PO SCH (21:42)
[2018-11-20] MEDS: CETIRIZINE (ZyrTEC) 10 MG TAB PO SCH (21:43)
[2018-11-20] MEDS: SENNA 8.6 MG TAB (SENOKOT) PO SCH (21:43)
[2018-11-21] MEDS: oxyCODONE 5MG TAB PO PRN ×5 (03:59→20:52)
[2018-11-21 06:00] VITALS: BP 148/68
[2018-11-21 07:08] LABS: INR 1.96; PROTHROMBIN TIME 22.1 SECONDS (11.8-14.0)
[2018-11-21] MEDS: HumaLOG INSULIN (NovoLOG) PER UNIT SC SCH ×4 (08:19→19:56)
[2018-11-21] MEDS: GABAPENTIN 300 MG CAP PO SCH ×3 (08:20→20:52)
[2018-11-21] MEDS: ENOXAPARIN 150 MG/ML SYR (J1650) SC SCH ×2 (08:20→20:53)
[2018-11-21] MEDS: OMEPRAZOLE 20 MG CAP PO SCH (08:22)
[2018-11-21] MEDS: NIFEdipine 30 MG XL TAB PO SCH (08:22)
[2018-11-21] MEDS: buPROPion **XL** TABLET 150MG (WELLBUTRIN XL) PO SCH (08:23)
[2018-11-21] MEDS: ISOSORBIDE MON. (IMDUR) 30 MG XR TAB PO SCH (08:23)
[2018-11-21] MEDS: ENALAPRIL MALEATE 10 MG TAB PO SCH ×2 (08:23→20:53)
[2018-11-21] MEDS: CARVedilol 12.5 MG TAB PO SCH ×2 (08:23→20:52)
[2018-11-21] MEDS: ASPIRIN 81 MG CHEW TABLET PO SCH (08:23)
[2018-11-21] MEDS: DOCUSATE SODIUM 100 MG CAP PO SCH ×2 (08:24→20:51)
[2018-11-21] MEDS: ACETAMINOPHEN 500 MG TAB PO SCH ×3 (08:24→20:53)
--- NOTE | 2018-11-21 10:32 | IPNPDOC ---
Subjective Date Seen The patient was seen on 11/21/18. Subjective Chief Complaint/HPI Patient seen and examined at bedside. No acute overnight events noted. Objective Physical Examination General Exam: Positive: Alert, Cooperative, No Acute Distress ENT Exam: Positive: Atraumatic, Mucous membr. moist/pink Neck Exam: Negative: JVD Chest Exam: Positive: Clear to auscultation, Normal air movement Heart Exam: Positive: Rate Normal, Normal S1, Normal S2 Abdomen Exam: Positive: Soft; Negative: Tenderness Extremity Exam: Positive: Other (s/p Left Foot BKA. Extremity wrapped in surgical dressing. ); Negative: Tenderness Psych Exam: Positive: Oriented x 3 Assessment /Plan Plan/VTE VTE Prophylaxis Ordered?: Yes Plan Left heel cellulitis, nonhealing ulcer in a patient with Hx of DM S/P left BKA on 11/[address] Go of Vascular Surgery Rehabilitation per primary team DVT right upper extremity Failure of Eliquis INR is 1.96 this AM Continue Coumadin with full dose Lovenox for bridging Hypertension Cont Enalapril, Coreg, Imdur, Nifedipine Diabetes mellitus. Cont Insulin coverage as ordered Chronic kidney disease Stage III Serum Cr at baseline Obstructive sleep apnea CPAP at bedtime Anxiety/Depression Cont current regimen GERD Cont PPI DVT Prophylaxis Already on Lovenox/Coumadin Bridge VS, I&O, 24H, Fishbone Vital Signs/I&O Vital Signs Date Time Temp Pulse Resp B/P (MAP) Pulse Ox O2 Delivery O2 Flow Rate FiO2 11/21/18 08:22 148/68 11/21/18 08:20 18 11/21/18 06:00 98.5 80 91 I&O- Last 24 Hours up to 6 AM 11/21/18 06:00 Intake Total 1320 ml Output Total 1600 ml Balance -280 ml Laboratory Data 24H LABS Laboratory Tests 2 11/20/18 11:42: Bedside Glucose (Misc Panel) 204H 11/20/18 17:02: Bedside Glucose (Misc Panel) 209H 11/20/18 20:04: Bedside Glucose (Misc Panel) 223H 11/21/18 06:03: Prothrombin Time 22.1H, Prothromb Time International Ratio 1.96 11/21/18 06:09: Bedside Glucose (Misc Panel) 251H NINA DOTSON MD Nov 21, 2018 10:32
[2018-11-21 14:00] VITALS: BP 137/73
[2018-11-21] MEDS: WARFARIN SOD 5 MG TAB PO SCH (16:46)
[2018-11-21 20:00] VITALS: BP 144/65
[2018-11-21] MEDS: AMITRIPTYLINE 50 MG TAB PO SCH (20:52)
[2018-11-21] MEDS: ATORVASTATIN 10 MG TAB PO SCH (20:52)
[2018-11-21] MEDS: SENNA 8.6 MG TAB (SENOKOT) PO SCH (20:52)
[2018-11-21] MEDS: CETIRIZINE (ZyrTEC) 10 MG TAB PO SCH (20:53)
[2018-11-21] MEDS: LEVEMIR (INSULIN DETEMIR) 1 UNITS/0.01ML SC SCH (20:54)
[2018-11-22] MEDS: oxyCODONE 5MG TAB PO PRN ×4 (01:12→21:23)
[2018-11-22 05:26] VITALS: BP 129/58
[2018-11-22 06:30] LABS: HEMATOCRIT 42.7 % (42.0-52.0); HEMOGLOBIN 12.9 g/dl (13.5-17.5); MEAN CORPUSCULAR HEMOGLOBIN 23.3 pg (27.0-33.0); MEAN CORPUSCULAR HGB CONC 30.2 g/dl (32.0-36.5); MEAN CORPUSCULAR VOLUME 77.2 fl (80.0-96.0); PLATELET COUNT, AUTOMATED 588 10^3/uL (150-450); RED BLOOD COUNT 5.53 10^6/uL (4.30-6.10); WHITE BLOOD COUNT 8.2 10^3/uL (4.0-10.0)
[2018-11-22 06:38] LABS: INR 1.85; PROTHROMBIN TIME 21.1 SECONDS (11.8-14.0)
[2018-11-22 08:16] LABS: CALCIUM LEVEL 8.5 MG/DL (8.5-10.1); CREATININE FOR GFR 1.94 MG/DL (0.70-1.30); POTASSIUM SERUM 5.8 MEQ/L (3.5-5.1)
[2018-11-22] MEDS: ENOXAPARIN 150 MG/ML SYR (J1650) SC SCH ×2 (08:54→21:22)
[2018-11-22] MEDS: ASPIRIN 81 MG CHEW TABLET PO SCH (08:55)
[2018-11-22] MEDS: NIFEdipine 30 MG XL TAB PO SCH (08:55)
[2018-11-22] MEDS: OMEPRAZOLE 20 MG CAP PO SCH (08:55)
[2018-11-22] MEDS: ENALAPRIL MALEATE 10 MG TAB PO SCH (08:55)
[2018-11-22] MEDS: ISOSORBIDE MON. (IMDUR) 30 MG XR TAB PO SCH (08:55)
[2018-11-22] MEDS: buPROPion **XL** TABLET 150MG (WELLBUTRIN XL) PO SCH (08:56)
[2018-11-22] MEDS: ACETAMINOPHEN 500 MG TAB PO SCH ×3 (08:56→21:00)
[2018-11-22] MEDS: GABAPENTIN 300 MG CAP PO SCH ×3 (08:56→21:24)
[2018-11-22] MEDS: CARVedilol 12.5 MG TAB PO SCH ×2 (08:57→21:23)
[2018-11-22] MEDS: DOCUSATE SODIUM 100 MG CAP PO SCH ×2 (08:57→21:00)
[2018-11-22] MEDS: HumaLOG INSULIN (NovoLOG) PER UNIT SC SCH ×4 (08:59→21:00)
--- NOTE | 2018-11-22 10:05 | IPNPDOC ---
PM&R Progress Note DATE OF SERVICE: Nov 18, 2018 Gate Agent Progress Note Subjective: Patient reporting residual limb better at night, however still having burning during the day. REVIEW OF SYSTEMS: The following is a completed review of systems and has been reviewed. Review of systems otherwise unremarkable. PAIN: Patient self reports left residual limb pain EYES: no recent vision changes EARS, NOSE, & THROAT: denies dysphagia, no rhinorrhea CARDIOVASCULAR: denies chest pain/palpitations PULMONARY: Negative. Denies shortness of breath GASTROINTESTINAL: no diarrhea/constipation GENITOURINARY: no dysuria MUSCULOSKELETAL: left BKA, chronic low back pain HEMATOLOGICAL: Negative SKIN: left residual limb incision PSYCHIATRIC: Unremarkable All other review of systems found to be negative. PHYSICAL EXAMINATION: VITAL SIGNS: Please see below. GENERAL: Pleasant and cooperative. No acute distress. HEENT: PERRL. Extraocular movements intact. Clear conjunctiva CARDIOVASCULAR: Regular rate and rhythm. No murmurs, rubs, or gallops LUNGS: Clear to auscultation bilaterally. No wheezes. No rhonchi ABDOMEN: Soft, nontender, nondistended. Positive bowel sounds. Normal active bowel sounds NEUROLOGICAL: Alert and oriented times three. Cranial nerves II through XII grossly intact. Sensation grossly intact except diminished in LLE and distal RLE EXTREMITIES: 5\5 strength bilateral upper extremities. 5-\5 strength right lower extremity. 5-/5 strength in left hip flexors and knee flexors SKIN: left residual limb incision c/d/i without induration, mild erythema ASSESSMENT:58-year-old M with past medical history of HTN, DM, chronic wound who presents status post left BKA. PLAN: 1. Rehab: PT, OT, assess for DME needs -goal is to stretch and strengthen his residual limb, prevent knee/hip flexion contractures, utilize desensitization techniques, strengthen core and upper body strength for safe and effective wheelchair propulsion 2. Neuro: peripheral neuropathy- c/u tight glycemic control 3. Cardio: pmh HTN and HLD, c/u amlodipine, Carvedilol, Enalapril, and nifedipine- ASA and statin, medicine consulted to assist in management 4. Resp: encourage incentive spirometry, may use home CPAP for SARAH 5. Endo: pmh DM, c/u Levemir and ISS 6. Vasc: pmh RUE DVT, c/u Lovenox BID and bridge to Coumadin, monitor daily INRs 7. : monitor PVRs 8. GI ppx: omeprazole 9. Pain: oxycodone, c/u Elavil at 50mg qHS, and Tylenol -add Gabapentin 300mg TID 10. DVT ppx: Lovenox-->warfarin bridge 11. Skin: BID dressing changes 12. Dispo: TBD Allergies Coded Allergies: povidone-iodine (Verified Allergy, Unknown, 08/18/18) soap (Verified Allergy, Unknown, 08/18/18) Vital Signs Vital Signs Date Time Temp Pulse Resp B/P (MAP) Pulse Ox O2 Delivery O2 Flow Rate FiO2 11/22/18 08:57 85 129/58 11/22/18 06:04 18 11/22/18 05:26 97.5 93 Laboratory Data CBC/BMP Laboratory Tests 11/22/18 05:59 Red Blood Count 5.53, Mean Corpuscular Volume 77.2 L, Mean Corpuscular Hemoglobin 23.3 L, Mean Corpuscular Hemoglobin Concent 30.2 L, Red Cell Distribution Width 17.9 H, Calcium Level 8.5 Labs 24H Laboratory Tests 2 11/21/18 11:35: Bedside Glucose (Misc Panel) 186H 11/21/18 16:31: Bedside Glucose (Misc Panel) 206H 11/21/18 19:53: Bedside Glucose (Misc Panel) 193H 11/22/18 05:46: Bedside Glucose (Misc Panel) 282H 11/22/18 05:59: Nucleated Red Blood Cells % (auto) 0.0, Prothrombin Time 21.1H, Prothromb Time International Ratio 1.85, Anion Gap 7L, Glomerular Filtration Rate 38.0L, Blood Urea Nitrogen 37H, Creatinine 1.94H, Sodium Level 138, Potassium Level 5.8H, Chloride Level 109H, Carbon Dioxide Level 22, Calcium Level 8.5 Current Medications Current Medications Current Medications Acetaminophen (Tylenol Tab) 1,000 mg TID PO Last administered on 11/22/18at 08:56; Start 11/16/18 at 21:00 Amitriptyline HCl (Elavil) 25 mg QHS PO Last administered on 11/16/18at 20:34; Start 11/16/18 at 21:00; Stop 11/17/18 at 14:27; Status DC Amitriptyline HCl (Elavil) 50 mg QHS PO Last administered on 11/18/18at 21:38; Start 11/17/18 at 21:00; Stop 11/19/18 at 09:55; Status DC Amitriptyline HCl (Elavil) 50 mg QHS PO Last administered on 11/21/18 20:52; Start 11/19/18 at 21:00 Amlodipine Besylate (Norvasc) 5 mg BID PO Last administered on 11/17/18at 08:16; Start 11/16/18 at 21:00; Stop 11/17/18 at 14:27; Status DC Apixaban (Eliquis) 5 mg BID PO ; Start 11/19/18 at 21:00; Stop 11/19/18 at 21:00; Status DC Aspirin (Aspirin Chewable) 81 mg DAILY PO Last administered on 11/22/18at 08:55; Start 11/17/18 at 09:00 Atorvastatin Calcium (Lipitor) 10 mg QHS PO Last administered on 11/21/18 20:52; Start 11/16/18 at 21:00 Bisacodyl (Dulcolax Suppository) 10 mg DAILYPRN PRN [place] CONSTIPATION; Start 11/16/18 at 18:45 Bupropion HCl (Wellbutrin Xl) 150 mg DAILY PO Last administered on 11/22/18at 08:56; Start 11/17/18 at 09:00 Calcium Carbonate (Tums) 1,000 mg Q4HP PRN PO HEARTBURN; Start 11/16/18 at 18:45 Carvedilol (COReg) 25 mg BID PO Last administered on 11/22/18at 08:57; Start 11/16/18 at 21:00 Cetirizine HCl (ZyrTEC) 5 mg QHS PO Last administered on 11/21/18 20:53; Start 11/16/18 at 21:00 Dextrose (Dextrose 50%) 25 ml ASDIRECTED PRN IV SEE LABEL COMMENTS; Start 11/16/18 at 18:45 Docusate Sodium (Colace) 100 mg BID PO Last administered on 11/21/18at 20:51; Start 11/16/18 at 21:00 Enalapril Maleate (Vasotec) 20 mg BID PO Last administered on 11/22/18 08:55; Start 11/16/18 at 21:00 Enoxaparin Sodium (Lovenox) 150 mg Q12H SC Last administered on 11/22/18 08:54; Start 11/16/18 at 21:00 Gabapentin (Neurontin) 300 mg TID PO Last administered on 11/22/18 08:56; Start 11/18/18 at 21:00 Glucagon (Glucagon) 1 mg ASDIRECTED PRN SC SEE LABEL COMMENTS; Start 11/16/18 at 18:45 Glucose (Glucose) 16 GM ASDIRECTED PRN PO SEE LABEL COMMENTS; Start 11/16/18 at 18:45 Home Med (Med Rec Complete!) ASDIRECTED XX ; Start 11/16/18 at 16:00; Stop 11/16/18 at 16:00; Status DC Insulin Detemir (Levemir Insulin) 10 units QHS SC Last administered on 11/17/18at 21:09; Start 11/16/18 at 21:00; Stop 11/18/18 at 09:52; Status DC Insulin Detemir (Levemir Insulin) 15 units QHS SC Last administered on 11/21/18at 20:54; Start 11/18/18 at 21:00 Insulin Human Lispro (HumaLOG INSULIN) SEE PROTOCOL TABLE AC SC Last administered on 11/22/18at 08:59; Start 11/17/18 at 07:30 Insulin Human Lispro (HumaLOG INSULIN) SEE PROTOCOL TABLE QHS SC Last administered on 11/19/18at 21:40; Start 11/16/18 at 21:00 Isosorbide Mononitrate (Imdur) 30 mg DAILY PO Last administered on 11/22/18at 08:55; Start 11/19/18 at 11:00 Magnesium Hydroxide (Milk Of Magnesia) 30 ml DAILYPRN PRN PO CONSTIPATION; Start 11/16/18 at 18:45 Nifedipine (Procardia Xl) 90 mg DAILY PO Last administered on 11/22/18 08:55; Start 11/17/18 at 09:00 Omeprazole (PriLOSEC) 40 mg DAILY PO Last administered on 11/22/18at 08:55; Start 11/17/18 at 09:00 Ondansetron HCl (Zofran) 4 mg Q6HP PRN PO NAUSEA; Start 11/16/18 at 18:45 Oxycodone HCl (Roxicodone, Oxyir) 10 mg Q4HP PRN PO SEVERE PAIN (PS 8-10) Last administered on 11/22/18 05:34; Start 11/16/18 at 17:45 Senna (Senokot) 1 tab QHS PO Last administered on 11/21/18 20:52; Start 11/16/18 at 21:00 Warfarin Sodium (Coumadin) 10 mg DAILY@1700 PO Last administered on 11/17/18at 16:19; Start 11/16/18 at 17:00; Stop 11/18/18 at 09:52; Status DC Warfarin Sodium (Coumadin) 15 mg DAILY@1700 PO Last administered on 11/21/18 16:46; Start 11/18/18 at 17:00; Stop 11/22/18 at 07:26; Status DC Warfarin Sodium (Coumadin) 17.5 mg DAILY@1700 PO ; Start 11/22/18 at 17:00 KEVIN GODOY MD Nov 22, 2018 10:05
--- NOTE | 2018-11-22 10:08 | IPNPDOC ---
PM&R Progress Note DATE OF SERVICE: Nov 19, 2018 Foreman/Project Manager Progress Note Subjective: Patient reporting his pain is significantly better after the addition of gabapentin. REVIEW OF SYSTEMS: The following is a completed review of systems and has been reviewed. Review of systems otherwise unremarkable. PAIN: Patient self reports left residual limb pain EYES: no recent vision changes EARS, NOSE, & THROAT: denies dysphagia, no rhinorrhea CARDIOVASCULAR: denies chest pain/palpitations PULMONARY: Negative. Denies shortness of breath GASTROINTESTINAL: no diarrhea/constipation GENITOURINARY: no dysuria MUSCULOSKELETAL: left BKA, chronic low back pain HEMATOLOGICAL: Negative SKIN: left residual limb incision PSYCHIATRIC: Unremarkable All other review of systems found to be negative. PHYSICAL EXAMINATION: VITAL SIGNS: Please see below. GENERAL: Pleasant and cooperative. No acute distress. HEENT: PERRL. Extraocular movements intact. Clear conjunctiva CARDIOVASCULAR: Regular rate and rhythm. No murmurs, rubs, or gallops LUNGS: Clear to auscultation bilaterally. No wheezes. No rhonchi ABDOMEN: Soft, nontender, nondistended. Positive bowel sounds. Normal active bowel sounds NEUROLOGICAL: Alert and oriented times three. Cranial nerves II through XII grossly intact. Sensation grossly intact except diminished in LLE and distal RLE EXTREMITIES: 5\5 strength bilateral upper extremities. 5-\5 strength right lower extremity. 5-/5 strength in left hip flexors and knee flexors SKIN: left residual limb incision c/d/i without induration, mild erythema ASSESSMENT:58-year-old M with past medical history of HTN, DM, chronic wound who presents status post left BKA. PLAN: 1. Rehab: PT, OT, assess for DME needs, able to propel wheelchair Mod-I -goal is to stretch and strengthen his residual limb, prevent knee/hip flexion contractures, utilize desensitization techniques, strengthen core and upper body strength for safe and effective wheelchair propulsion 2. Neuro: peripheral neuropathy- c/u tight glycemic control 3. Cardio: pmh HTN and HLD, c/u amlodipine, Carvedilol, Enalapril, and nifedipine- ASA and statin, medicine consulted to assist in management 4. Resp: encourage incentive spirometry, may use home CPAP for SARAH 5. Endo: pmh DM, c/u Levemir and ISS 6. Vasc: pmh RUE DVT, c/u Lovenox BID and bridge to Coumadin, monitor daily INRs 7. : monitor PVRs 8. GI ppx: omeprazole 9. Pain: oxycodone, c/u Elavil at 50mg qHS, and Tylenol -c/u Gabapentin 300mg TID 10. DVT ppx: Lovenox-->warfarin bridge 11. Skin: BID dressing changes 12. Dispo: TBD Allergies Coded Allergies: povidone-iodine (Verified Allergy, Unknown, 08/18/18) soap (Verified Allergy, Unknown, 08/18/18) Vital Signs Vital Signs Date Time Temp Pulse Resp B/P (MAP) Pulse Ox O2 Delivery O2 Flow Rate FiO2 11/22/18 08:57 85 129/58 11/22/18 06:04 18 11/22/18 05:26 97.5 93 Laboratory Data CBC/BMP Laboratory Tests 11/22/18 05:59 Red Blood Count 5.53, Mean Corpuscular Volume 77.2 L, Mean Corpuscular Hemoglobin 23.3 L, Mean Corpuscular Hemoglobin Concent 30.2 L, Red Cell Distribution Width 17.9 H, Calcium Level 8.5 Labs 24H Laboratory Tests 2 11/21/18 11:35: Bedside Glucose (Misc Panel) 186H 11/21/18 16:31: Bedside Glucose (Misc Panel) 206H 11/21/18 19:53: Bedside Glucose (Misc Panel) 193H 11/22/18 05:46: Bedside Glucose (Misc Panel) 282H 11/22/18 05:59: Nucleated Red Blood Cells % (auto) 0.0, Prothrombin Time 21.1H, Prothromb Time International Ratio 1.85, Anion Gap 7L, Glomerular Filtration Rate 38.0L, Blood Urea Nitrogen 37H, Creatinine 1.94H, Sodium Level 138, Potassium Level 5.8H, Chloride Level 109H, Carbon Dioxide Level 22, Calcium Level 8.5 Current Medications Current Medications Current Medications Acetaminophen (Tylenol Tab) 1,000 mg TID PO Last administered on 11/22/18at 08:56; Start 11/16/18 at 21:00 Amitriptyline HCl (Elavil) 25 mg QHS PO Last administered on 11/16/18at 20:34; Start 11/16/18 at 21:00; Stop 11/17/18 at 14:27; Status DC Amitriptyline HCl (Elavil) 50 mg QHS PO Last administered on 11/18/18at 21:38; Start 11/17/18 at 21:00; Stop 11/19/18 at 09:55; Status DC Amitriptyline HCl (Elavil) 50 mg QHS PO Last administered on 11/21/18 20:52; Start 11/19/18 at 21:00 Amlodipine Besylate (Norvasc) 5 mg BID PO Last administered on 11/17/18 08:16; Start 11/16/18 at 21:00; Stop 11/17/18 at 14:27; Status DC Apixaban (Eliquis) 5 mg BID PO ; Start 11/19/18 at 21:00; Stop 11/19/18 at 21:00; Status DC Aspirin (Aspirin Chewable) 81 mg DAILY PO Last administered on 11/22/18 08:55; Start 11/17/18 at 09:00 Atorvastatin Calcium (Lipitor) 10 mg QHS PO Last administered on 11/21/18 20:52; Start 11/16/18 at 21:00 Bisacodyl (Dulcolax Suppository) 10 mg DAILYPRN PRN [place] CONSTIPATION; Start 11/16/18 at 18:45 Bupropion HCl (Wellbutrin Xl) 150 mg DAILY PO Last administered on 11/22/18 08:56; Start 11/17/18 at 09:00 Calcium Carbonate (Tums) 1,000 mg Q4HP PRN PO HEARTBURN; Start 11/16/18 at 18:45 Carvedilol (COReg) 25 mg BID PO Last administered on 11/22/18 08:57; Start 11/16/18 at 21:00 Cetirizine HCl (ZyrTEC) 5 mg QHS PO Last administered on 11/21/18 20:53; Start 11/16/18 at 21:00 Dextrose (Dextrose 50%) 25 ml ASDIRECTED PRN IV SEE LABEL COMMENTS; Start 11/16/18 at 18:45 Docusate Sodium (Colace) 100 mg BID PO Last administered on 11/21/18 20:51; Start 11/16/18 at 21:00 Enalapril Maleate (Vasotec) 20 mg BID PO Last administered on 11/22/18 08:55; Start 11/16/18 at 21:00 Enoxaparin Sodium (Lovenox) 150 mg Q12H SC Last administered on 11/22/18 08:54; Start 11/16/18 at 21:00 Gabapentin (Neurontin) 300 mg TID PO Last administered on 11/22/18at 08:56; Start 11/18/18 at 21:00 Glucagon (Glucagon) 1 mg ASDIRECTED PRN SC SEE LABEL COMMENTS; Start 11/16/18 at 18:45 Glucose (Glucose) 16 GM ASDIRECTED PRN PO SEE LABEL COMMENTS; Start 11/16/18 at 18:45 Home Med (Med Rec Complete!) ASDIRECTED XX ; Start 11/16/18 at 16:00; Stop 11/16/18 at 16:00; Status DC Insulin Detemir (Levemir Insulin) 10 units QHS SC Last administered on 11/17/18at 21:09; Start 11/16/18 at 21:00; Stop 11/18/18 at 09:52; Status DC Insulin Detemir (Levemir Insulin) 15 units QHS SC Last administered on 11/21at 20:54; Start 11/18/18 at 21:00 Insulin Human Lispro (HumaLOG INSULIN) SEE PROTOCOL TABLE AC SC Last administered on 11/22/18at 08:59; Start 11/17/18 at 07:30 Insulin Human Lispro (HumaLOG INSULIN) SEE PROTOCOL TABLE QHS SC Last administered on 11/19/18at 21:40; Start 11/16/18 at 21:00 Isosorbide Mononitrate (Imdur) 30 mg DAILY PO Last administered on 11/22/18at 08:55; Start 11/19/18 at 11:00 Magnesium Hydroxide (Milk Of Magnesia) 30 ml DAILYPRN PRN PO CONSTIPATION; Start 11/16/18 at 18:45 Nifedipine (Procardia Xl) 90 mg DAILY PO Last administered on 11/22/18at 08:55; Start 11/17/18 at 09:00 Omeprazole (PriLOSEC) 40 mg DAILY PO Last administered on 11/22/18at 08:55; Start 11/17/18 at 09:00 Ondansetron HCl (Zofran) 4 mg Q6HP PRN PO NAUSEA; Start 11/16/18 at 18:45 Oxycodone HCl (Roxicodone, Oxyir) 10 mg Q4HP PRN PO SEVERE PAIN (PS 8-10) Last administered on 11/22/18at 05:34; Start 11/16/18 at 17:45 Senna (Senokot) 1 tab QHS PO Last administered on 11/21/18at 20:52; Start 11/16/18 at 21:00 Warfarin Sodium (Coumadin) 10 mg DAILY@1700 PO Last administered on 11/17/18at 16:19; Start 11/16/18 at 17:00; Stop 11/18/18 at 09:52; Status DC Warfarin Sodium (Coumadin) 15 mg DAILY@1700 PO Last administered on 11/21/18at 16:46; Start 11/18/18 at 17:00; Stop 11/22/18 at 07:26; Status DC Warfarin Sodium (Coumadin) 17.5 mg DAILY@1700 PO ; Start 11/22/18 at 17:00 KEVIN GODOY MD Nov 22, 2018 10:08
[2018-11-22] MEDS ORDERED: SOD POLYSTYRENE SULFONATE SUSP 15 GM/60 ML UD PO ONE (11:00)
--- NOTE | 2018-11-22 12:17 | IPNPDOC ---
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 REVIEW OF SYSTEMS: The following is a completed review of systems and has been reviewed. Review of systems otherwise unremarkable. PAIN: Patient self reports left residual limb pain EYES: no recent vision changes EARS, NOSE, & THROAT: denies dysphagia, no rhinorrhea CARDIOVASCULAR: denies chest pain/palpitations PULMONARY: Negative. Denies shortness of breath GASTROINTESTINAL: no diarrhea/constipation GENITOURINARY: no dysuria MUSCULOSKELETAL: left BKA, chronic low back pain HEMATOLOGICAL: Negative SKIN: left residual limb incision PSYCHIATRIC: Unremarkable All other review of systems found to be negative. PHYSICAL EXAMINATION: VITAL SIGNS: Please see below. GENERAL: Pleasant and cooperative. No acute distress. HEENT: PERRL. Extraocular movements intact. Clear conjunctiva CARDIOVASCULAR: Regular rate and rhythm. No murmurs, rubs, or gallops LUNGS: Clear to auscultation bilaterally. No wheezes. No rhonchi ABDOMEN: Soft, nontender, nondistended. Positive bowel sounds. Normal active bowel sounds NEUROLOGICAL: Alert and oriented times three. Cranial nerves II through XII grossly intact. Sensation grossly intact except diminished in LLE and distal RLE EXTREMITIES: 5\5 strength bilateral upper extremities. 5-\5 strength right lower extremity. 5-/5 strength in left hip flexors and knee flexors left shoulder exam- + Neers, +painful arc SKIN: left residual limb incision c/d/i without induration, mild erythema ASSESSMENT:58-year-old M with past medical history of HTN, DM, chronic wound who presents status post left BKA. PLAN: 1. Rehab: PT, OT, assess for DME needs -goal is to stretch and strengthen his residual limb, prevent knee/hip flexion contractures, utilize desensitization techniques, strengthen core and upper body strength for safe and effective wheelchair propulsion -mod-I for wheelchair propulsions 2. Neuro: peripheral neuropathy- c/u tight glycemic control 3. Cardio: pmh HTN and HLD, c/u amlodipine, Carvedilol, Enalapril, and nifedipine- ASA and statin, medicine consulted to assist in management 4. Resp: encourage incentive spirometry, may use home CPAP for SARAH 5. Endo: pmh DM, c/u Levemir and ISS 6. Vasc: pmh RUE DVT, c/u Lovenox BID and bridge to Coumadin, monitor daily INRs 7. : monitor PVRs 8. GI ppx: omeprazole 9. Pain: oxycodone, c/u Elavil at 50mg qHS, and Tylenol -c/u Gabapentin 300mg TID -lidoderm patch to left shoulder and kinesiotape 10. DVT ppx: Lovenox-->warfarin bridge 11. Skin: BID dressing changes 12. Hyperkalemia- will give Kayexalate x1 now 12. Dispo: TBD Allergies Coded Allergies: povidone-iodine (Verified Allergy, Unknown, 08/18/18) soap (Verified Allergy, Unknown, 08/18/18) Vital Signs Vital Signs Date Time Temp Pulse Resp B/P (MAP) Pulse Ox O2 Delivery O2 Flow Rate FiO2 11/22/18 08:57 85 129/58 11/22/18 06:04 18 11/22/18 05:26 97.5 93 Laboratory Data CBC/BMP Laboratory Tests 11/22/18 05:59 Red Blood Count 5.53, Mean Corpuscular Volume 77.2 L, Mean Corpuscular Hemoglobin 23.3 L, Mean Corpuscular Hemoglobin Concent 30.2 L, Red Cell Distribution Width 17.9 H, Calcium Level 8.5 Labs 24H Laboratory Tests 2 11/21/18 16:31: Bedside Glucose (Misc Panel) 206H 11/21/18 19:53: Bedside Glucose (Misc Panel) 193H 11/22/18 05:46: Bedside Glucose (Misc Panel) 282H 11/22/18 05:59: Nucleated Red Blood Cells % (auto) 0.0, Prothrombin Time 21.1H, Prothromb Time International Ratio 1.85, Anion Gap 7L, Glomerular Filtration Rate 38.0L, Blood Urea Nitrogen 37H, Creatinine 1.94H, Sodium Level 138, Potassium Level 5.8H, Chloride Level 109H, Carbon Dioxide Level 22, Calcium Level 8.5 11/22/18 11:59: Bedside Glucose (Misc Panel) 225H Current Medications Current Medications Current Medications Acetaminophen (Tylenol Tab) 1,000 mg TID PO Last administered on 11/22/18at 08:56; Start 11/16/18 at 21:00 Amitriptyline HCl (Elavil) 25 mg QHS PO Last administered on 11/16/18 20:34; Start 11/16/18 at 21:00; Stop 11/17/18 at 14:27; Status DC Amitriptyline HCl (Elavil) 50 mg QHS PO Last administered on 11/18/18 21:38; Start 11/17/18 at 21:00; Stop 11/19/18 at 09:55; Status DC Amitriptyline HCl (Elavil) 50 mg QHS PO Last administered on 11/21/18 20:52; Start 11/19/18 at 21:00 Amlodipine Besylate (Norvasc) 5 mg BID PO Last administered on 11/17/18 08:16; Start 11/16/18 at 21:00; Stop 11/17/18 at 14:27; Status DC Apixaban (Eliquis) 5 mg BID PO ; Start 11/19/18 at 21:00; Stop 11/19/18 at 21:00; Status DC Aspirin (Aspirin Chewable) 81 mg DAILY PO Last administered on 11/22/18 08:55; Start 11/17/18 at 09:00 Atorvastatin Calcium (Lipitor) 10 mg QHS PO Last administered on 11/21/18 20:52; Start 11/16/18 at 21:00 Bisacodyl (Dulcolax Suppository) 10 mg DAILYPRN PRN [place] CONSTIPATION; Start 11/16/18 at 18:45 Bupropion HCl (Wellbutrin Xl) 150 mg DAILY PO Last administered on 11/22/18 08:56; Start 11/17/18 at 09:00 Calcium Carbonate (Tums) 1,000 mg Q4HP PRN PO HEARTBURN; Start 11/16/18 at 18:45 Carvedilol (COReg) 25 mg BID PO Last administered on 11/22/18 08:57; Start 11/16/18 at 21:00 Cetirizine HCl (ZyrTEC) 5 mg QHS PO Last administered on 11/21/18 20:53; Start 11/16/18 at 21:00 Dextrose (Dextrose 50%) 25 ml ASDIRECTED PRN IV SEE LABEL COMMENTS; Start 11/16/18 at 18:45 Docusate Sodium (Colace) 100 mg BID PO Last administered on 11/21/18at 20:51; Start 11/16/18 at 21:00 Enalapril Maleate (Vasotec) 10 mg BID PO ; Start 11/22/18 at 21:00 Enalapril Maleate (Vasotec) 20 mg BID PO Last administered on 11/22/18at 08:55; Start 11/16/18 at 21:00; Stop 11/22/18 at 10:07; Status DC Enoxaparin Sodium (Lovenox) 150 mg Q12H SC Last administered on 11/22/18at 08:54; Start 11/16/18 at 21:00 Gabapentin (Neurontin) 300 mg TID PO Last administered on 11/22/18at 08:56; St art 11/18/18 at 21:00 Glucagon (Glucagon) 1 mg ASDIRECTED PRN SC SEE LABEL COMMENTS; Start 11/16/18 at 18:45 Glucose (Glucose) 16 GM ASDIRECTED PRN PO SEE LABEL COMMENTS; Start 11/16/18 at 18:45 Home Med (Med Rec Complete!) ASDIRECTED XX ; Start 11/16/18 at 16:00; Stop 11/16/18 at 16:00; Status DC Insulin Detemir (Levemir Insulin) 10 units QHS SC Last administered on 11/17/18at 21:09; Start 11/16/18 at 21:00; Stop 11/18/18 at 09:52; Status DC Insulin Detemir (Levemir Insulin) 15 units QHS SC Last administered on 11/21/18at 20:54; Start 11/18/18 at 21:00 Insulin Human Lispro (HumaLOG INSULIN) SEE PROTOCOL TABLE AC SC Last administered on 11/22/18at 08:59; Start 11/17/18 at 07:30 Insulin Human Lispro (HumaLOG INSULIN) SEE PROTOCOL TABLE QHS SC Last administered on 11/19/18at 21:40; Start 11/16/18 at 21:00 Isosorbide Mononitrate (Imdur) 30 mg DAILY PO Last administered on 11/22/18at 08:55; Start 11/19/18 at 11:00 Lidocaine (Lidoderm Patch) 1 patch DAILY TD ; Start 11/23/18 at 09:00 Magnesium Hydroxide (Milk Of Magnesia) 30 ml DAILYPRN PRN PO CONSTIPATION; Start 11/16/18 at 18:45 Nifedipine (Procardia Xl) 90 mg DAILY PO Last administered on 11/22/18at 08:55; Start 11/17/18 at 09:00 Non-Formulary Medication ( See Comment Field Below ) DAILY@21 XX ; Start 11/22/18 at 21:00 Omeprazole (PriLOSEC) 40 mg DAILY PO Last administered on 11/22/18at 08:55; Start 11/17/18 at 09:00 Ondansetron HCl (Zofran) 4 mg Q6HP PRN PO NAUSEA; Start 11/16/18 at 18:45 Oxycodone HCl (Roxicodone, Oxyir) 10 mg Q4HP PRN PO SEVERE PAIN (PS 8-10) Last administered on 11/22/18at 05:34; Start 11/16/18 at 17:45 Senna (Senokot) 1 tab QHS PO Last administered on 11/21/18at 20:52; Start 11/16/18 at 21:00 Warfarin Sodium (Coumadin) 10 mg DAILY@1700 PO Last administered on 11/17/18at 16:19; Start 11/16/18 at 17:00; Stop 11/18/18 at 09:52; Status DC Warfarin Sodium (Coumadin) 15 mg DAILY@1700 PO Last administered on 11/21/18at 16:46; Start 11/18/18 at 17:00; Stop 11/22/18 at 07:26; Status DC Warfarin Sodium (Coumadin) 17.5 mg DAILY@1700 PO ; Start 11/22/18 at 17:00 KEVIN GODOY MD Nov 22, 2018 12:17
[2018-11-22 14:00] VITALS: BP 130/75
[2018-11-22] MEDS ORDERED: LIDOCAINE 5% (LIDODERM) PATCH TD ONE (16:15)
[2018-11-22] MEDS: WARFARIN SOD 5 MG TAB PO SCH (17:28)
[2018-11-22 20:00] VITALS: BP 133/75
[2018-11-22] MEDS ORDERED: ENALAPRIL MALEATE 10 MG TAB PO SCH (21:00)
[2018-11-22] MEDS: ATORVASTATIN 10 MG TAB PO SCH (21:23)
[2018-11-22] MEDS: SENNA 8.6 MG TAB (SENOKOT) PO SCH (21:23)
[2018-11-22] MEDS: LEVEMIR (INSULIN DETEMIR) 1 UNITS/0.01ML SC SCH (21:24)
[2018-11-22] MEDS: CETIRIZINE (ZyrTEC) 10 MG TAB PO SCH (21:24)
[2018-11-22] MEDS: **NOTE PATIENT COMMENT** MISC XX SCH (21:24)
[2018-11-22] MEDS: AMITRIPTYLINE 50 MG TAB PO SCH (21:24)
[2018-11-23] MEDS ORDERED: **NOTE PATIENT COMMENT** MISC XX SCH (04:15)
[2018-11-23] MEDS: oxyCODONE 5MG TAB PO PRN ×4 (04:22→18:31)
[2018-11-23 06:00] VITALS: BP 148/80
[2018-11-23 06:28] LABS: INR 1.92; PROTHROMBIN TIME 21.7 SECONDS (11.8-14.0)
[2018-11-23 06:48] LABS: CALCIUM LEVEL 8.6 MG/DL (8.5-10.1); CREATININE FOR GFR 1.69 MG/DL (0.70-1.30); GLOMERULAR FILTRATION RATE 44.6 (>56); POTASSIUM SERUM 4.6 MEQ/L (3.5-5.1)
[2018-11-23] MEDS: HumaLOG INSULIN (NovoLOG) PER UNIT SC SCH ×4 (08:40→21:00)
[2018-11-23] MEDS: ASPIRIN 81 MG CHEW TABLET PO SCH (08:48)
[2018-11-23] MEDS: NIFEdipine 30 MG XL TAB PO SCH (08:49)
[2018-11-23] MEDS: buPROPion **XL** TABLET 150MG (WELLBUTRIN XL) PO SCH (08:56)
[2018-11-23] MEDS: GABAPENTIN 300 MG CAP PO SCH ×3 (08:56→21:51)
[2018-11-23] MEDS: CARVedilol 12.5 MG TAB PO SCH ×2 (08:57→21:52)
[2018-11-23] MEDS: ISOSORBIDE MON. (IMDUR) 30 MG XR TAB PO SCH (08:58)
[2018-11-23] MEDS: ACETAMINOPHEN 500 MG TAB PO SCH ×3 (08:58→21:52)
[2018-11-23] MEDS: OMEPRAZOLE 20 MG CAP PO SCH (08:59)
[2018-11-23] MEDS: ENOXAPARIN 150 MG/ML SYR (J1650) SC SCH ×2 (08:59→21:54)
[2018-11-23] MEDS: LIDOCAINE 5% (LIDODERM) PATCH TD SCH (08:59)
[2018-11-23] MEDS: DOCUSATE SODIUM 100 MG CAP PO SCH ×2 (09:00→21:00)
--- NOTE | 2018-11-23 11:00 | IPNPDOC ---
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 He reports right knee clicking with occasional pain in therapy. REVIEW OF SYSTEMS: The following is a completed review of systems and has been reviewed. Review of systems otherwise unremarkable. PAIN: Patient self reports left residual limb pain EYES: no recent vision changes EARS, NOSE, & THROAT: denies dysphagia, no rhinorrhea CARDIOVASCULAR: denies chest pain/palpitations PULMONARY: Negative. Denies shortness of breath GASTROINTESTINAL: no diarrhea/constipation GENITOURINARY: no dysuria MUSCULOSKELETAL: left BKA, chronic low back pain HEMATOLOGICAL: Negative SKIN: left residual limb incision PSYCHIATRIC: Unremarkable All other review of systems found to be negative. PHYSICAL EXAMINATION: VITAL SIGNS: Please see below. GENERAL: Pleasant and cooperative. No acute distress. HEENT: PERRL. Extraocular movements intact. Clear conjunctiva CARDIOVASCULAR: Regular rate and rhythm. No murmurs, rubs, or gallops LUNGS: Clear to auscultation bilaterally. No wheezes. No rhonchi ABDOMEN: Soft, nontender, nondistended. Positive bowel sounds. Normal active bowel sounds NEUROLOGICAL: Alert and oriented times three. Cranial nerves II through XII grossly intact. Sensation grossly intact except diminished in LLE and distal RLE EXTREMITIES: 5\5 strength bilateral upper extremities. 5-\5 strength right lower extremity. 5-/5 strength in left hip flexors and knee flexors left shoulder exam- + Neers, +painful arc right knee- incision healed, no warmth/swelling, ROM functional, palpable click with extension SKIN: left residual limb incision c/d/i without induration, mild erythema ASSESSMENT:58-year-old M with past medical history of HTN, DM, chronic wound who presents status post left BKA. PLAN: 1. Rehab: PT, OT, assess for DME needs -goal is to stretch and strengthen his residual limb, prevent knee/hip flexion contractures, utilize desensitization techniques, strengthen core and upper body strength for safe and effective wheelchair propulsion -mod-I for wheelchair propulsions 2. Neuro: peripheral neuropathy- c/u tight glycemic control 3. Cardio: pmh HTN and HLD, c/u amlodipine, Carvedilol, Enalapril, and nifedipin e- ASA and statin, medicine consulted to assist in management 4. Resp: encourage incentive spirometry, may use home CPAP for SARAH 5. Endo: pmh DM, c/u Levemir and ISS 6. Vasc: pmh RUE DVT, c/u Lovenox BID and bridge to Coumadin, monitor daily INRs 7. : monitor PVRs 8. GI ppx: omeprazole 9. Pain: oxycodone, c/u Elavil at 50mg qHS, and Tylenol -c/u Gabapentin 300mg TID -lidoderm patch to left shoulder and kinesiotape -menthol salicylate to right knee for suspected osteoarthritis 10. DVT ppx: Lovenox-->warfarin bridge 11. Skin: BID dressing changes 12. Hyperkalemia- s/p Kayexalate, K today 4.6, will c/u monitor 12. Dispo: TBD Allergies Coded Allergies: povidone-iodine (Verified Allergy, Unknown, 08/18/18) soap (Verified Allergy, Unknown, 08/18/18) Vital Signs Vital Signs Date Time Temp Pulse Resp B/P (MAP) Pulse Ox O2 Delivery O2 Flow Rate FiO2 11/23/18 08:58 148/80 11/23/18 08:57 83 11/23/18 08:47 18 11/23/18 06:00 97.2 94 Laboratory Data CBC/BMP Laboratory Tests 11/23/18 05:56 Calcium Level 8.6 Labs 24H Laboratory Tests 2 11/22/18 11:59: Bedside Glucose (Misc Panel) 225H 11/22/18 16:28: Bedside Glucose (Misc Panel) 142H 11/22/18 20:53: Bedside Glucose (Misc Panel) 166H 11/23/18 05:56: Erythrocyte Sedimentation Rate 21H, Prothrombin Time 21.7H, Prothromb Time International Ratio 1.92, Anion Gap 8, Glomerular Filtration Rate 44.6L, Blood Urea Nitrogen 31H, Creatinine 1.69H, Sodium Level 141, Potassium Level 4.6#, Chloride Level 109H, Carbon Dioxide Level 24, Calcium Level 8.6, C-Reactive Protein, Quantitative 2.00H Current Medications Current Medications Current Medications Acetaminophen (Tylenol Tab) 1,000 mg TID PO Last administered on 11/23/18at 08:58; Start 11/16/18 at 21:00 Amitriptyline HCl (Elavil) 25 mg QHS PO Last administered on 11/16/18 20:34; Start 11/16/18 at 21:00; Stop 11/17/18 at 14:27; Status DC Amitriptyline HCl (Elavil) 50 mg QHS PO Last administered on 11/18/18at 21:38; Start 11/17/18 at 21:00; Stop 11/19/18 at 09:55; Status DC Amitriptyline HCl (Elavil) 50 mg QHS PO Last administered on 11/22/18 21:24; Start 11/19/18 at 21:00 Amlodipine Besylate (Norvasc) 5 mg BID PO Last administered on 11/17/18 08:16; Start 11/16/18 at 21:00; Stop 11/17/18 at 14:27; Status DC Apixaban (Eliquis) 5 mg BID PO ; Start 11/19/18 at 21:00; Stop 11/19/18 at 21:00; Status DC Aspirin (Aspirin Chewable) 81 mg DAILY PO Last administered on 11/23/18 08:48; Start 11/17/18 at 09:00 Atorvastatin Calcium (Lipitor) 10 mg QHS PO Last administered on 11/22/18 21:23; Start 11/16/18 at 21:00 Bisacodyl (Dulcolax Suppository) 10 mg DAILYPRN PRN [place] CONSTIPATION; Start 11/16/18 at 18:45 Bupropion HCl (Wellbutrin Xl) 150 mg DAILY PO Last administered on 11/23/18 08:56; Start 11/17/18 at 09:00 Calcium Carbonate (Tums) 1,000 mg Q4HP PRN PO HEARTBURN; Start 11/16/18 at 18:45 Carvedilol (COReg) 25 mg BID PO Last administered on 11/23/18 08:57; Start 11/16/18 at 21:00 Cetirizine HCl (ZyrTEC) 5 mg QHS PO Last administered on 11/22/18 21:24; Start 11/16/18 at 21:00 Dextrose (Dextrose 50%) 25 ml ASDIRECTED PRN IV SEE LABEL COMMENTS; Start 11/16/18 at 18:45 Docusate Sodium (Colace) 100 mg BID PO Last administered on 11/21/18at 20:51; Start 11/16/18 at 21:00 Enalapril Maleate (Vasotec) 10 mg BID PO ; Start 11/22/18 at 21:00; Stop 11/22/18 at 21:00; Status DC Enalapril Maleate (Vasotec) 20 mg BID PO Last administered on 11/22/18at 08:55; Start 11/16/18 at 21:00; Stop 11/22/18 at 10:07; Status DC Enoxaparin Sodium (Lovenox) 150 mg Q12H SC Last administered on 11/23/18 08:59; Start 11/16/18 at 21:00 Gabapentin (Neurontin) 300 mg TID PO Last administered on 11/23/18at 08:56; Start 11/18/18 at 21:00 Glucagon (Glucagon) 1 mg ASDIRECTED PRN SC SEE LABEL COMMENTS; Start 11/16/18 at 18:45 Glucose (Glucose) 16 GM ASDIRECTED PRN PO SEE LABEL COMMENTS; Start 11/16/18 at 18:45 Home Med (Med Rec Complete!) ASDIRECTED XX ; Start 11/16/18 at 16:00; Stop 11/16/18 at 16:00; Status DC Insulin Detemir (Levemir Insulin) 10 units QHS SC Last administered on 11/17/18at 21:09; Start 11/16/18 at 21:00; Stop 11/18/18 at 09:52; Status DC Insulin Detemir (Levemir Insulin) 15 units QHS SC Last administered on 11/22/18at 21:24; Start 11/18/18 at 21:00 Insulin Human Lispro (HumaLOG INSULIN) SEE PROTOCOL TABLE AC SC Last administered on 11/23/18at 08:40; Start 11/17/18 at 07:30 Insulin Human Lispro (HumaLOG INSULIN) SEE PROTOCOL TABLE QHS SC Last admini stered on 11/19/18at 21:40; Start 11/16/18 at 21:00 Isosorbide Mononitrate (Imdur) 30 mg DAILY PO Last administered on 11/23/18at 08:58; Start 11/19/18 at 11:00 Lidocaine (Lidoderm Patch) 1 patch DAILY TD Last administered on 11/23/18 08:59; Start 11/23/18 at 09:00 Magnesium Hydroxide (Milk Of Magnesia) 30 ml DAILYPRN PRN PO CONSTIPATION; Start 11/16/18 at 18:45 Nifedipine (Procardia Xl) 90 mg DAILY PO Last administered on 11/23/18 08:49; Start 11/17/18 at 09:00 Non-Formulary Medication ( See Comment Field Below ) DAILY@21 XX Last administered on 11/22/18at 21:24; Start 11/22/18 at 21:00 Non-Formulary Medication ( See Comment Field Below ) REMOVE LIDODERM PATCH DAILY@0415 XX ; Start 11/23/18 at 04:15; Stop 11/23/18 at 04:15; Status DC Omeprazole (PriLOSEC) 40 mg DAILY PO Last administered on 11/23/18 08:59; Start 11/17/18 at 09:00 Ondansetron HCl (Zofran) 4 mg Q6HP PRN PO NAUSEA; Start 11/16/18 at 18:45 Oxycodone HCl (Roxicodone, Oxyir) 10 mg Q4HP PRN PO SEVERE PAIN (PS 8-10) Last administered on 11/23/18 08:47; Start 11/16/18 at 17:45 Senna (Senokot) 1 tab QHS PO Last administered on 11/22/18 21:23; Start 11/16/18 at 21:00 Warfarin Sodium (Coumadin) 10 mg DAILY@1700 PO Last administered on 11/17/18 16:19; Start 11/16/18 at 17:00; Stop 11/18/18 at 09:52; Status DC Warfarin Sodium (Coumadin) 15 mg DAILY@1700 PO Last administered on 11/21/18 16:46; Start 11/18/18 at 17:00; Stop 11/22/18 at 07:26; Status DC Warfarin Sodium (Coumadin) 17.5 mg DAILY@1700 PO Last administered on 11/22/18 17:28; Start 11/22/18 at 17:00 KEVIN GODOY MD Nov 23, 2018 11:00
[2018-11-23 14:00] VITALS: BP 134/78
[2018-11-23] MEDS: WARFARIN SOD 5 MG TAB PO SCH (16:50)
--- NOTE | 2018-11-23 18:24 | IPNPDOC ---
Text Note Date of Service The patient was seen on 11/23/18. NOTE Subjective: Patient was seen and examined at the bedside. Patient reports that he denies chest pain, shortness of breath or palpitations. Has been working with physical therapy and has been slowly progressing. He denies any nausea, vomiting, abdominal pain, constipation, diarrhea, or urinary discomfort. Objective: Vitals (See below) General: Lying in bed, no acute distress, comfortable, AAOx3 HEENT: NC, AT CVS: RRR, +S1S2 Lungs: Fair air entry b/l, -w/r/r Abdomen: Soft, ND, NT Extremities: - Edema, - Calf tenderness, L BKA Assessment and plan: Left heel cellulitis, nonhealing ulcer in a patient with Hx of DM - s/p left BKA on 11/[address] Go of Vascular Surgery - Rehabilitation per primary team; has been slowly progressing DVT right upper extremity - Failure of Eliquis - INR approaching therapeutic - Continue Coumadin with full dose Lovenox for bridging Hypertension - BP appears well controlled - Cont Enalapril, Coreg, Imdur, Nifedipine NIDDM2 - c/w ISS Chronic kidney disease Stage III - Serum Cr at baseline Obstructive sleep apnea - CPAP at bedtime; allow home CPAP use Anxiety/Depression - Cont current regimen GERD - Cont PPI DVT Prophylaxis - Already on Lovenox/Coumadin Bridge VS,Fishbone, I+O VS, Fishbone, I+O Laboratory Tests 11/23/18 05:56 Calcium Level 8.6 Vital Signs Date Time Temp Pulse Resp B/P (MAP) Pulse Ox O2 Delivery O2 Flow Rate FiO2 11/23/18 14:00 99.1 103 18 134/78 (96) 94 I&O- Last 24 Hours up to 6 AM 11/23/18 06:00 Intake Total 1800 ml Output Total 950 ml Balance 850 ml BENNETT RAYO MD Nov 23, 2018 18:24
[2018-11-23 20:00] VITALS: BP 138/76
[2018-11-23] MEDS: AMITRIPTYLINE 50 MG TAB PO SCH (21:51)
[2018-11-23] MEDS: ANALGESIC BALM CRM 120 GM TOP SCH (21:51)
[2018-11-23] MEDS: CETIRIZINE (ZyrTEC) 10 MG TAB PO SCH (21:51)
[2018-11-23] MEDS: ATORVASTATIN 10 MG TAB PO SCH (21:51)
[2018-11-23] MEDS: SENNA 8.6 MG TAB (SENOKOT) PO SCH (21:53)
[2018-11-23] MEDS: LEVEMIR (INSULIN DETEMIR) 1 UNITS/0.01ML SC SCH (21:53)
[2018-11-23] MEDS: **NOTE PATIENT COMMENT** MISC XX SCH (21:54)
[2018-11-24] MEDS: oxyCODONE 5MG TAB PO PRN ×5 (01:48→21:02)
[2018-11-24 06:00] VITALS: BP 148/89
[2018-11-24 06:52] LABS: INR 2.16; PROTHROMBIN TIME 23.9 SECONDS (11.8-14.0)
[2018-11-24] MEDS: ASPIRIN 81 MG CHEW TABLET PO SCH (08:20)
[2018-11-24] MEDS: HumaLOG INSULIN (NovoLOG) PER UNIT SC SCH ×4 (08:20→21:00)
[2018-11-24] MEDS: ACETAMINOPHEN 500 MG TAB PO SCH ×3 (08:21→21:03)
[2018-11-24] MEDS: OMEPRAZOLE 20 MG CAP PO SCH (08:21)
[2018-11-24] MEDS: GABAPENTIN 300 MG CAP PO SCH ×3 (08:21→21:04)
[2018-11-24] MEDS: buPROPion **XL** TABLET 150MG (WELLBUTRIN XL) PO SCH (08:21)
[2018-11-24] MEDS: ISOSORBIDE MON. (IMDUR) 30 MG XR TAB PO SCH (08:22)
[2018-11-24] MEDS: NIFEdipine 30 MG XL TAB PO SCH (08:22)
[2018-11-24] MEDS: ENOXAPARIN 150 MG/ML SYR (J1650) SC SCH (08:22)
[2018-11-24] MEDS: CARVedilol 12.5 MG TAB PO SCH ×2 (08:23→21:04)
[2018-11-24] MEDS: LIDOCAINE 5% (LIDODERM) PATCH TD SCH (08:23)
[2018-11-24] MEDS: ANALGESIC BALM CRM 120 GM TOP SCH ×2 (08:24→21:05)
[2018-11-24] MEDS: DOCUSATE SODIUM 100 MG CAP PO SCH ×3 (08:24→21:03)
--- NOTE | 2018-11-24 10:31 | IPNPDOC ---
PM&R Progress Note DATE OF SERVICE: Nov 24, 2018 [employer] Progress Note Subjective: Patient reporting his residual limb pain is getting better, but he is concerned about having to change his dressing son his own. REVIEW OF SYSTEMS: The following is a completed review of systems and has been reviewed. Review of systems otherwise unremarkable. PAIN: Patient self reports left residual limb pain EYES: no recent vision changes EARS, NOSE, & THROAT: denies dysphagia, no rhinorrhea CARDIOVASCULAR: denies chest pain/palpitations PULMONARY: Negative. Denies shortness of breath GASTROINTESTINAL: no diarrhea/constipation GENITOURINARY: no dysuria MUSCULOSKELETAL: left BKA, chronic low back pain HEMATOLOGICAL: Negative SKIN: left residual limb incision PSYCHIATRIC: Unremarkable All other review of systems found to be negative. PHYSICAL EXAMINATION: VITAL SIGNS: Please see below. GENERAL: Pleasant and cooperative. No acute distress. HEENT: PERRL. Extraocular movements intact. Clear conjunctiva CARDIOVASCULAR: Regular rate and rhythm. No murmurs, rubs, or gallops LUNGS: Clear to auscultation bilaterally. No wheezes. No rhonchi ABDOMEN: Soft, nontender, nondistended. Positive bowel sounds. Normal active bowel sounds NEUROLOGICAL: Alert and oriented times three. Cranial nerves II through XII grossly intact. Sensation grossly intact except diminished in LLE and distal RLE EXTREMITIES: 5\5 strength bilateral upper extremities. 5-\5 strength right lower extremity. 5-/5 strength in left hip flexors and knee flexors left shoulder exam- + Neers, +painful arc right knee- incision healed, no warmth/swelling, ROM functional, palpable click with extension SKIN: left residual limb incision c/d/i without induration, mild erythema ASSESSMENT:58-year-old M with past medical history of HTN, DM, chronic wound who presents status post left BKA. PLAN: 1. Rehab: PT, OT, assess for DME needs -goal is to stretch and strengthen his residual limb, prevent knee/hip flexion contractures, utilize desensitization techniques, strengthen core and upper body strength for safe and effective wheelchair propulsion -mod-I for wheelchair propulsions 2. Neuro: peripheral neuropathy- c/u tight glycemic control 3. Cardio: pmh HTN and HLD, c/u amlodipine, Carvedilol, Enalapril, and nifedipine- ASA and statin, medicine consulted to assist in management 4. Resp: encourage incentive spirometry, may use home CPAP for SARAH 5. Endo: pmh DM, c/u Levemir and ISS 6. Vasc: pmh RUE DVT, s/p Lovenox bridge c/u Coumadin, monitor daily INRs 7. : monitor PVRs 8. GI ppx: omeprazole 9. Pain: oxycodone, c/u Elavil at 50mg qHS, and Tylenol -c/u Gabapentin 300mg TID -lidoderm patch to left shoulder and kinesiotape -menthol salicylate to right knee for suspected osteoarthritis 10. DVT ppx: s/p Lovenox bridge, c/u warfarin f 11. Skin: BID dressing changes 12. Hyperkalemia- s/p Kayexalate, improving 12. Dispo: TBD Allergies Coded Allergies: povidone-iodine (Verified Allergy, Unknown, 08/18/18) soap (Verified Allergy, Unknown, 08/18/18) Vital Signs Vital Signs Date Time Temp Pulse Resp B/P (MAP) Pulse Ox O2 Delivery O2 Flow Rate FiO2 11/24/18 08:23 87 11/24/18 08:23 18 11/24/18 08:22 156/83 11/24/18 06:00 100.3 92 Laboratory Data Labs 24H Laboratory Tests 2 11/23/18 12:04: Bedside Glucose (Misc Panel) 179H 11/23/18 16:57: Bedside Glucose (Misc Panel) 200H 11/23/18 19:57: Bedside Glucose (Misc Panel) 175H 11/24/18 05:47: Bedside Glucose (Misc Panel) 273H 11/24/18 06:23: Prothrombin Time 23.9H, Prothromb Time International Ratio 2.16 Current Medications Current Medications Current Medications Acetaminophen (Tylenol Tab) 1,000 mg TID PO Last administered on 11/24/18at 08:21; Start 11/16/18 at 21:00 Amitriptyline HCl (Elavil) 25 mg QHS PO Last administered on 11/16/18at 20:34; Start 11/16/18 at 21:00; Stop 11/17/18 at 14:27; Status DC Amitriptyline HCl (Elavil) 50 mg QHS PO Last administered on 11/18/18at 21:38; Start 11/17/18 at 21:00; Stop 11/19/18 at 09:55; Status DC Amitriptyline HCl (Elavil) 50 mg QHS PO Last administered on 11/23/18 21:51; Start 11/19/18 at 21:00 Amlodipine Besylate (Norvasc) 5 mg BID PO Last administered on 11/17/18 08:16; Start 11/16/18 at 21:00; Stop 11/17/18 at 14:27; Status DC Apixaban (Eliquis) 5 mg BID PO ; Start 11/19/18 at 21:00; Stop 11/19/18 at 21:00; Status DC Aspirin (Aspirin Chewable) 81 mg DAILY PO Last administered on 11/24/18 08:20; Start 11/17/18 at 09:00 Atorvastatin Calcium (Lipitor) 10 mg QHS PO Last administered on 11/23/18 21:51; Start 11/16/18 at 21:00 Bisacodyl (Dulcolax Suppository) 10 mg DAILYPRN PRN [place] CONSTIPATION; Start 11/16/18 at 18:45 Bupropion HCl (Wellbutrin Xl) 150 mg DAILY PO Last administered on 11/24/18 08:21; Start 11/17/18 at 09:00 Calcium Carbonate (Tums) 1,000 mg Q4HP PRN PO HEARTBURN; Start 11/16/18 at 18:45 Carvedilol (COReg) 25 mg BID PO Last administered on 11/24/18 08:23; Start 11/16/18 at 21:00 Cetirizine HCl (ZyrTEC) 5 mg QHS PO Last administered on 11/23/18 21:51; Start 11/16/18 at 21:00 Dextrose (Dextrose 50%) 25 ml ASDIRECTED PRN IV SEE LABEL COMMENTS; Start 11/16/18 at 18:45 Docusate Sodium (Colace) 100 mg BID PO Last administered on 11/21/18at 20:51; Start 11/16/18 at 21:00 Enalapril Maleate (Vasotec) 10 mg BID PO ; Start 11/22/18 at 21:00; Stop 11/22/18 at 21:00; Status DC Enalapril Maleate (Vasotec) 20 mg BID PO Last administered on 11/22/18 08:55; Start 11/16/18 at 21:00; Stop 11/22/18 at 10:07; Status DC Enoxaparin Sodium (Lovenox) 150 mg Q12H SC Last administered on 11/24/18 08:22; Start 11/16/18 at 21:00; Stop 11/24/18 at 10:26; Status DC Gabapentin (Neurontin) 300 mg TID PO Last administered on 11/24/18 08:21; Start 11/18/18 at 21:00 Glucagon (Glucagon) 1 mg ASDIRECTED PRN SC SEE LABEL COMMENTS; Start 11/16/18 at 18:45 Glucose (Glucose) 16 GM ASDIRECTED PRN PO SEE LABEL COMMENTS; Start 11/16/18 at 18:45 Home Med (Med Rec Complete!) ASDIRECTED XX ; Start 11/16/18 at 16:00; Stop 11/16/18 at 16:00; Status DC Insulin Detemir (Levemir Insulin) 10 units QHS SC Last administered on at 21:09; Start 11/16/18 at 21:00; Stop 11/18/18 at 09:52; Status DC Insulin Detemir (Levemir Insulin) 15 units QHS SC Last administered on 11/23/18at 21:53; Start 11/18/18 at 21:00; Stop 11/24/18 at 10:26; Status DC Insulin Detemir (Levemir Insulin) 20 units QHS SC ; Start 11/24/18 at 21:00; Status UNV Insulin Human Lispro (HumaLOG INSULIN) SEE PROTOCOL TABLE AC SC Last admi nistered on 11/24/18at 08:20; Start 11/17/18 at 07:30 Insulin Human Lispro (HumaLOG INSULIN) SEE PROTOCOL TABLE QHS SC Last admin istered on 11/19/18at 21:40; Start 11/16/18 at 21:00 Isosorbide Mononitrate (Imdur) 30 mg DAILY PO Last administered on 11/24/18 08:22; Start 11/19/18 at 11:00 Lidocaine (Lidoderm Patch) 1 patch DAILY TD Last administered on 11/24/18at 08:23; Start 11/23/18 at 09:00 Magnesium Hydroxide (Milk Of Magnesia) 30 ml DAILYPRN PRN PO CONSTIPATION; Start 11/16/18 at 18:45 Menthol/Methyl Salicylate (Bengay Cream) right knee BID TOP Last administered on 11/24/18 08:24; Start 11/23/18 at 21:00 Nifedipine (Procardia Xl) 90 mg DAILY PO Last administered on 11/24/18 08:22; Start 11/17/18 at 09:00 Non-Formulary Medication ( See Comment Field Below ) DAILY@21 XX Last administered on 11/23/18 21:54; Start 11/22/18 at 21:00 Non-Formulary Medication ( See Comment Field Below ) REMOVE LIDODERM PATCH DAILY@0415 XX ; Start 11/23/18 at 04:15; Stop 11/23/18 at 04:15; Status DC Omeprazole (PriLOSEC) 40 mg DAILY PO Last administered on 11/24/18 08:21; Start 11/17/18 at 09:00 Ondansetron HCl (Zofran) 4 mg Q6HP PRN PO NAUSEA; Start 11/16/18 at 18:45 Oxycodone HCl (Roxicodone, Oxyir) 10 mg Q4HP PRN PO SEVERE PAIN (PS 8-10) Last administered on 11/24/18 08:23; Start 11/16/18 at 17:45 Senna (Senokot) 1 tab QHS PO Last administered on 11/23/18 21:53; Start 11/16/18 at 21:00 Warfarin Sodium (Coumadin) 10 mg DAILY@1700 PO Last administered on 11/17/18 16:19; Start 11/16/18 at 17:00; Stop 11/18/18 at 09:52; Status DC Warfarin Sodium (Coumadin) 15 mg DAILY@1700 PO Last administered on 11/21/18 16:46; Start 11/18/18 at 17:00; Stop 11/22/18 at 07:26; Status DC Warfarin Sodium (Coumadin) 17.5 mg DAILY@1700 PO Last administered on 11/23/18 16:50; Start 11/22/18 at 17:00 KEVIN GODOY MD Nov 24, 2018 10:30
[2018-11-24 14:00] VITALS: BP 135/68
[2018-11-24] MEDS: WARFARIN SOD 5 MG TAB PO SCH (18:09)
[2018-11-24 20:00] VITALS: BP 137/77
[2018-11-24] MEDS: SENNA 8.6 MG TAB (SENOKOT) PO SCH (21:03)
[2018-11-24] MEDS: AMITRIPTYLINE 50 MG TAB PO SCH (21:03)
[2018-11-24] MEDS: CETIRIZINE (ZyrTEC) 10 MG TAB PO SCH (21:03)
[2018-11-24] MEDS: ATORVASTATIN 10 MG TAB PO SCH (21:04)
[2018-11-24] MEDS: LEVEMIR (INSULIN DETEMIR) 1 UNITS/0.01ML SC SCH (21:05)
[2018-11-24] MEDS: **NOTE PATIENT COMMENT** MISC XX SCH (21:05)
[2018-11-25] MEDS: oxyCODONE 5MG TAB PO PRN ×5 (04:20→23:06)
[2018-11-25 06:00] VITALS: BP 131/84
[2018-11-25 07:48] LABS: HEMATOCRIT 38.8 % (42.0-52.0); HEMOGLOBIN 11.8 g/dl (13.5-17.5); MEAN CORPUSCULAR HEMOGLOBIN 23.4 pg (27.0-33.0); MEAN CORPUSCULAR HGB CONC 30.4 g/dl (32.0-36.5); PLATELET COUNT, AUTOMATED 507 10^3/uL (150-450); RED BLOOD COUNT 5.04 10^6/uL (4.30-6.10); WHITE BLOOD COUNT 7.4 10^3/uL (4.0-10.0)
[2018-11-25 08:08] LABS: INR 2.28; PROTHROMBIN TIME 24.9 SECONDS (11.8-14.0)
[2018-11-25 08:15] LABS: CALCIUM LEVEL 9.4 MG/DL (8.5-10.1); CREATININE FOR GFR 1.71 MG/DL (0.70-1.30); POTASSIUM SERUM 4.8 MEQ/L (3.5-5.1)
[2018-11-25] MEDS: HumaLOG INSULIN (NovoLOG) PER UNIT SC SCH ×4 (08:38→20:32)
[2018-11-25] MEDS: GABAPENTIN 300 MG CAP PO SCH ×3 (08:38→20:30)
[2018-11-25] MEDS: DOCUSATE SODIUM 100 MG CAP PO SCH ×3 (08:38→20:31)
[2018-11-25] MEDS: ASPIRIN 81 MG CHEW TABLET PO SCH (08:38)
[2018-11-25] MEDS: OMEPRAZOLE 20 MG CAP PO SCH (08:39)
[2018-11-25] MEDS: buPROPion **XL** TABLET 150MG (WELLBUTRIN XL) PO SCH (08:39)
[2018-11-25] MEDS: CARVedilol 12.5 MG TAB PO SCH ×2 (08:39→20:31)
[2018-11-25] MEDS: ACETAMINOPHEN 500 MG TAB PO SCH ×3 (08:40→20:30)
[2018-11-25] MEDS: ANALGESIC BALM CRM 120 GM TOP SCH ×2 (08:41→20:32)
[2018-11-25] MEDS: NIFEdipine 30 MG XL TAB PO SCH (08:41)
[2018-11-25] MEDS: LIDOCAINE 5% (LIDODERM) PATCH TD SCH (08:41)
[2018-11-25] MEDS: ISOSORBIDE MON. (IMDUR) 30 MG XR TAB PO SCH (08:41)
--- NOTE | 2018-11-25 11:36 | IPNPDOC ---
Text Note Date of Service The patient was seen on 11/25/18. NOTE Subjective: Patient was seen and examined at the bedside. Patient was seen in his wheelchair. Currently denies chest pain, shortness of breath or palpitations. Denies nausea, vomiting, abdominal pain, constipation, diarrhea or discomfort with urination. Patient continues to work with physical therapy and has reported that he has been progressing. Objective: Vitals (See below) General: Lying in bed, no acute distress, comfortable, AAOx3 HEENT: NC, AT CVS: RRR, +S1S2 Lungs: Fair air entry b/l, no appreciable wheezing, rhonchi or rales Abdomen: Soft, nondistended, without tenderness Extremities: No appreciable edema, - Calf tenderness, L BKA Assessment and plan: Left heel cellulitis, nonhealing ulcer in a patient with Hx of DM - s/p left BKA on 11/[address] Go of Vascular Surgery - Rehabilitation per primary team - Continues to work with physical therapy and has been progressing DVT right upper extremity - Failure of Eliquis - INR is therapeutic - c/w Coumadin; will DC Lovenox Hypertension - BP appears well controlled - Cont Enalapril, Coreg, Imdur, Nifedipine NIDDM2 - c/w ISS Chronic kidney disease Stage III - Serum Cr at baseline Obstructive sleep apnea - CPAP at bedtime; allow home CPAP use Anxiety/Depression - Cont current regimen GERD - Cont PPI DVT Prophylaxis - c/w Coumadin (now therapeutic) VS,Fishbone, I+O VS, Fishbone, I+O Laboratory Tests 11/25/18 07:24 Red Blood Count 5.04, Mean Corpuscular Volume 77.0 L, Mean Corpuscular Hemoglobin 23.4 L, Mean Corpuscular Hemoglobin Concent 30.4 L, Red Cell Distribution Width 17.4 H, Calcium Level 9.4 Vital Signs Date Time Temp Pulse Resp B/P (MAP) Pulse Ox O2 Delivery O2 Flow Rate FiO2 11/25/18 09:15 20 11/25/18 08:39 74 131/84 11/25/18 06:00 99.1 93 I&O- Last 24 Hours up to 6 AM 11/25/18 06:00 Intake Total 1020 ml Output Total 1950 ml Balance -930 ml BENNETT RAYO MD Nov 25, 2018 11:36
[2018-11-25 14:00] VITALS: BP 148/70
[2018-11-25] MEDS: WARFARIN SOD 5 MG TAB PO SCH (17:40)
[2018-11-25 20:00] VITALS: BP 155/78
[2018-11-25] MEDS: CETIRIZINE (ZyrTEC) 10 MG TAB PO SCH (20:29)
[2018-11-25] MEDS: ATORVASTATIN 10 MG TAB PO SCH (20:30)
[2018-11-25] MEDS: SENNA 8.6 MG TAB (SENOKOT) PO SCH (20:30)
[2018-11-25] MEDS: LEVEMIR (INSULIN DETEMIR) 1 UNITS/0.01ML SC SCH (20:32)
[2018-11-25] MEDS: **NOTE PATIENT COMMENT** MISC XX SCH (20:33)
[2018-11-25] MEDS: AMITRIPTYLINE 50 MG TAB PO SCH (20:37)
[2018-11-26] MEDS: oxyCODONE 5MG TAB PO PRN ×3 (03:05→12:45)
[2018-11-26 06:00] VITALS: BP 138/79
[2018-11-26 07:09] LABS: INR 2.47; PROTHROMBIN TIME 26.6 SECONDS (11.8-14.0)
[2018-11-26] MEDS: HumaLOG INSULIN (NovoLOG) PER UNIT SC SCH ×4 (07:55→21:47)
[2018-11-26] MEDS: GABAPENTIN 300 MG CAP PO SCH ×3 (07:55→21:46)
[2018-11-26] MEDS: ACETAMINOPHEN 500 MG TAB PO SCH ×3 (07:56→21:47)
[2018-11-26] MEDS: ANALGESIC BALM CRM 120 GM TOP SCH ×2 (09:00→21:00)
[2018-11-26] MEDS: DOCUSATE SODIUM 100 MG CAP PO SCH ×2 (09:00→21:00)
[2018-11-26] MEDS: ASPIRIN 81 MG CHEW TABLET PO SCH (11:02)
[2018-11-26] MEDS: ISOSORBIDE MON. (IMDUR) 30 MG XR TAB PO SCH (11:02)
[2018-11-26] MEDS: buPROPion **XL** TABLET 150MG (WELLBUTRIN XL) PO SCH (11:03)
[2018-11-26] MEDS: NIFEdipine 30 MG XL TAB PO SCH (11:03)
[2018-11-26] MEDS: OMEPRAZOLE 20 MG CAP PO SCH (11:03)
[2018-11-26] MEDS: CARVedilol 12.5 MG TAB PO SCH ×2 (11:04→21:46)
[2018-11-26] MEDS: LIDOCAINE 5% (LIDODERM) PATCH TD SCH (11:05)
[2018-11-26 14:00] VITALS: BP 146/82
[2018-11-26] MEDS: WARFARIN SOD 5 MG TAB PO SCH (17:49)
[2018-11-26 20:00] VITALS: BP 138/70
[2018-11-26] MEDS: ATORVASTATIN 10 MG TAB PO SCH (21:45)
[2018-11-26] MEDS: AMITRIPTYLINE 50 MG TAB PO SCH (21:46)
[2018-11-26] MEDS: SENNA 8.6 MG TAB (SENOKOT) PO SCH (21:46)
[2018-11-26] MEDS: LEVEMIR (INSULIN DETEMIR) 1 UNITS/0.01ML SC SCH (21:47)
[2018-11-26] MEDS: CETIRIZINE (ZyrTEC) 10 MG TAB PO SCH (21:47)
[2018-11-26] MEDS: **NOTE PATIENT COMMENT** MISC XX SCH (21:48)
[2018-11-27 06:00] VITALS: BP 139/62
[2018-11-27 07:12] LABS: INR 2.56; PROTHROMBIN TIME 27.4 SECONDS (11.8-14.0)
[2018-11-27] MEDS: ASPIRIN 81 MG CHEW TABLET PO SCH (08:55)
[2018-11-27] MEDS: CARVedilol 12.5 MG TAB PO SCH ×2 (08:55→21:45)
[2018-11-27] MEDS: OMEPRAZOLE 20 MG CAP PO SCH (08:55)
[2018-11-27] MEDS: NIFEdipine 30 MG XL TAB PO SCH (08:56)
[2018-11-27] MEDS: buPROPion **XL** TABLET 150MG (WELLBUTRIN XL) PO SCH (08:56)
[2018-11-27] MEDS: GABAPENTIN 300 MG CAP PO SCH ×3 (08:56→21:44)
[2018-11-27] MEDS: ISOSORBIDE MON. (IMDUR) 30 MG XR TAB PO SCH (08:56)
[2018-11-27] MEDS: ACETAMINOPHEN 500 MG TAB PO SCH ×3 (08:58→21:45)
[2018-11-27] MEDS: HumaLOG INSULIN (NovoLOG) PER UNIT SC SCH ×4 (08:59→21:00)
[2018-11-27] MEDS: DOCUSATE SODIUM 100 MG CAP PO SCH ×2 (08:59→21:00)
[2018-11-27] MEDS: LIDOCAINE 5% (LIDODERM) PATCH TD SCH (09:00)
[2018-11-27] MEDS: ANALGESIC BALM CRM 120 GM TOP SCH ×2 (09:00→21:00)
--- NOTE | 2018-11-27 11:19 | IPNPDOC ---
Text Note Date of Service The patient was seen on 11/27/18. NOTE Subjective: Patient was seen and examined at the bedside. . Currently, patient was lying in bed. He denies any problems overnight. Reports that he has been working with physical therapy. He denies chest pain, palpitations, abdominal pain, diarrhea, or urinary discomfort. Objective: Vitals (See below) General: Lying in bed, no acute distress, comfortable, AAOx3 HEENT: NC, AT CVS: RRR, +S1S2 Lungs: Air entry is fair bilaterally, without any evidence of rhonchi, rales or wheezing Abdomen: Remains soft without distention or tenderness Extremities: No edema noted, - Calf tenderness, L BKA Assessment and plan: Left heel cellulitis, nonhealing ulcer in a patient with Hx of DM - s/p left BKA on 11/[address] Go of Vascular Surgery - Rehabilitation per primary team - Continues to work with physical therapy; patient continues to make progression DVT right upper extremity - Failure of Eliquis - INR is within therapeutic range - c/w Coumadin; s/p Lovenox Hypertension - BP appears well controlled - Cont Enalapril, Coreg, Imdur, Nifedipine NIDDM2 - c/w ISS Chronic kidney disease Stage III - Serum Cr at baseline Obstructive sleep apnea - CPAP at bedtime; allow home CPAP use Anxiety/Depression - c/w Bupropion GERD - c/w Omeprazole DVT Prophylaxis - c/w full anticoagulation with Coumadin VS,Fishbone, I+O VS, Fishbone, I+O Vital Signs Date Time Temp Pulse Resp B/P (MAP) Pulse Ox O2 Delivery O2 Flow Rate FiO2 11/27/18 08:55 74 139/62 11/27/18 06:00 97.6 18 95 I&O- Last 24 Hours up to 6 AM 11/27/18 06:00 Intake Total 1080 ml Output Total 1500 ml Balance -420 ml BENNETT RAYO MD Nov 27, 2018 11:19
[2018-11-27] MEDS ORDERED: oxyCODONE 5MG TAB PO PRN (12:00)
[2018-11-27 14:00] VITALS: BP 160/68
[2018-11-27] MEDS: WARFARIN SOD 5 MG TAB PO SCH (17:28)
[2018-11-27 20:07] VITALS: BP 132/74
[2018-11-27] MEDS: AMITRIPTYLINE 50 MG TAB PO SCH (21:44)
[2018-11-27] MEDS: CETIRIZINE (ZyrTEC) 10 MG TAB PO SCH (21:44)
[2018-11-27] MEDS: SENNA 8.6 MG TAB (SENOKOT) PO SCH (21:45)
[2018-11-27] MEDS: ATORVASTATIN 10 MG TAB PO SCH (21:45)
[2018-11-27] MEDS: LEVEMIR (INSULIN DETEMIR) 1 UNITS/0.01ML SC SCH (21:45)
[2018-11-27] MEDS: **NOTE PATIENT COMMENT** MISC XX SCH (21:52)
[2018-11-28 06:41] VITALS: BP 142/67
[2018-11-28 08:06] LABS: HEMATOCRIT 43.5 % (42.0-52.0); HEMOGLOBIN 13.2 g/dl (13.5-17.5); MEAN CORPUSCULAR HEMOGLOBIN 23.2 pg (27.0-33.0); MEAN CORPUSCULAR HGB CONC 30.3 g/dl (32.0-36.5); MEAN CORPUSCULAR VOLUME 76.6 fl (80.0-96.0); PLATELET COUNT, AUTOMATED 621 10^3/uL (150-450); RED BLOOD COUNT 5.68 10^6/uL (4.30-6.10); WHITE BLOOD COUNT 9.4 10^3/uL (4.0-10.0)
[2018-11-28 08:15] LABS: INR 2.37; PROTHROMBIN TIME 25.7 SECONDS (11.8-14.0)
[2018-11-28] MEDS: HumaLOG INSULIN (NovoLOG) PER UNIT SC SCH ×4 (08:22→21:54)
[2018-11-28] MEDS: LIDOCAINE 5% (LIDODERM) PATCH TD SCH (08:22)
[2018-11-28] MEDS: ASPIRIN 81 MG CHEW TABLET PO SCH (08:23)
[2018-11-28] MEDS: buPROPion **XL** TABLET 150MG (WELLBUTRIN XL) PO SCH (08:23)
[2018-11-28] MEDS: OMEPRAZOLE 20 MG CAP PO SCH (08:23)
[2018-11-28] MEDS: ACETAMINOPHEN 500 MG TAB PO SCH ×3 (08:23→21:55)
[2018-11-28] MEDS: GABAPENTIN 300 MG CAP PO SCH ×3 (08:24→21:56)
[2018-11-28] MEDS: NIFEdipine 30 MG XL TAB PO SCH (08:24)
[2018-11-28] MEDS: CARVedilol 12.5 MG TAB PO SCH ×2 (08:25→21:56)
[2018-11-28] MEDS: ISOSORBIDE MON. (IMDUR) 30 MG XR TAB PO SCH (08:25)
[2018-11-28] MEDS: ANALGESIC BALM CRM 120 GM TOP SCH ×2 (08:25→21:57)
[2018-11-28] MEDS: DOCUSATE SODIUM 100 MG CAP PO SCH ×2 (08:25→21:00)
[2018-11-28 14:00] VITALS: BP 145/79
--- NOTE | 2018-11-28 14:31 | IPNPDOC ---
Text Note Date of Service The patient was seen on 11/28/18. NOTE Subjective: Patient was seen and examined at the bedside. Objective: Vitals (See below) General: Lying in bed, no acute distress, comfortable, AAOx3 HEENT: NC, AT CVS: RRR, +S1S2 Lungs: Air entry is fair bilaterally, -r/r/w Abdomen: Soft, ND, NT Extremities: No edema at RLE, - Calf tenderness, L BKA Assessment and plan: Left heel cellulitis, nonhealing ulcer in a patient with Hx of DM - s/p left BKA on 11/[address] Go of Vascular Surgery - Rehabilitation per primary team - Continues to work with PT; patient has made significant progress DVT right upper extremity - Failure of Eliquis - INR within therapeutic range - c/w Coumadin; s/p Lovenox Hypertension - BP appears well controlled - c/w Enalapril, Coreg, Imdur, Nifedipine NIDDM2 - c/w ISS Chronic kidney disease Stage III - Serum Cr at baseline Obstructive sleep apnea - CPAP at bedtime; allow home CPAP use Anxiety/Depression - c/w Bupropion GERD - c/w Omeprazole DVT Prophylaxis - c/w full anticoagulation with Coumadin VS,Fishbone, I+O VS, Fishbone, I+O Laboratory Tests 11/28/18 07:54 Red Blood Count 5.68, Mean Corpuscular Volume 76.6 L, Mean Corpuscular Hemoglobin 23.2 L, Mean Corpuscular Hemoglobin Concent 30.3 L, Red Cell Distribution Width 18.4 H Vital Signs Date Time Temp Pulse Resp B/P (MAP) Pulse Ox O2 Delivery O2 Flow Rate FiO2 11/28/18 08:24 142/67 11/28/18 06:41 98.4 86 18 92 I&O- Last 24 Hours up to 6 AM 11/28/18 06:00 Intake Total 1800 ml Output Total 2275 ml Balance -475 ml BENNETT RAYO MD Nov 28, 2018 14:31
[2018-11-28] MEDS: WARFARIN SOD 5 MG TAB PO SCH (16:55)
[2018-11-28] MEDS: SENNA 8.6 MG TAB (SENOKOT) PO SCH (21:55)
[2018-11-28] MEDS: AMITRIPTYLINE 50 MG TAB PO SCH (21:55)
[2018-11-28] MEDS: LEVEMIR (INSULIN DETEMIR) 1 UNITS/0.01ML SC SCH (21:55)
[2018-11-28] MEDS: CETIRIZINE (ZyrTEC) 10 MG TAB PO SCH (21:56)
[2018-11-28] MEDS: **NOTE PATIENT COMMENT** MISC XX SCH (21:56)
[2018-11-28] MEDS: ATORVASTATIN 10 MG TAB PO SCH (21:56)
[2018-11-29 06:00] VITALS: BP 160/81
[2018-11-29 06:41] LABS: INR 2.26; PROTHROMBIN TIME 24.8 SECONDS (11.8-14.0)
[2018-11-29] MEDS: ANALGESIC BALM CRM 120 GM TOP SCH ×2 (07:53→21:15)
[2018-11-29] MEDS: DOCUSATE SODIUM 100 MG CAP PO SCH ×2 (07:53→20:56)
[2018-11-29] MEDS: HumaLOG INSULIN (NovoLOG) PER UNIT SC SCH ×4 (07:59→21:11)
[2018-11-29] MEDS: NIFEdipine 30 MG XL TAB PO SCH (08:00)
[2018-11-29] MEDS: GABAPENTIN 300 MG CAP PO SCH ×3 (08:00→21:14)
[2018-11-29] MEDS: ASPIRIN 81 MG CHEW TABLET PO SCH (08:00)
[2018-11-29] MEDS: buPROPion **XL** TABLET 150MG (WELLBUTRIN XL) PO SCH (08:01)
[2018-11-29] MEDS: OMEPRAZOLE 20 MG CAP PO SCH (08:01)
[2018-11-29] MEDS: ISOSORBIDE MON. (IMDUR) 30 MG XR TAB PO SCH (08:01)
[2018-11-29] MEDS: CARVedilol 12.5 MG TAB PO SCH ×2 (08:01→21:12)
[2018-11-29] MEDS: LIDOCAINE 5% (LIDODERM) PATCH TD SCH (08:02)
[2018-11-29] MEDS: ACETAMINOPHEN 500 MG TAB PO SCH ×3 (08:02→21:13)
--- NOTE | 2018-11-29 09:27 | IPNPDOC ---
Subjective Date Seen The patient was seen on 11/29/18. Subjective Chief Complaint/HPI Javier is a 58-year-old male recently discharged from [facility] s/p left BKA 11/06/2018. He was admitted to inpatient rehabilitation for mobilization. Events since last encounter Has no complaints, feels hes doing great with therapy, has not complains with chest pain, chills, nausea, constipation, diarrhea Objective Physical Examination General Exam: Positive: Alert, Cooperative, No Acute Distress ENT Exam: Positive: Atraumatic, Mucous membr. moist/pink Neck Exam: Negative: JVD Chest Exam: Positive: Clear to auscultation, Normal air movement Heart Exam: Positive: Rate Normal, Normal S1, Normal S2 Abdomen Exam: Positive: Soft; Negative: Tenderness Extremity Exam: Positive: Other (s/p Left Foot BKA. Extremity wrapped in surgical dressing. ); Negative: Tenderness Psych Exam: Positive: Oriented x 3 Assessment /Plan Assessment Left heel cellulitis -which progressed to nonhealing ulcer, in a patient with poorly controlled diabetes -s/p left BKA on 11/[address] Go of Vascular Surgery -Rehabilitation per primary team -possible discharge this week DVT right upper extremity - DVT while on Eliquis -continued on coumadin - INR within therapeutic range today between 2-3 Hypertension - currently on Coreg, Imdur, Nifedipine -adjust doses and target SBP<140mmHg Diabetes mellitus type 2 -Continue diabetic diet -Finger stick checks prior to meals and at bedtime -Coverage with insulin per sliding scale protocol Chronic kidney disease Stage III - Serum Cr at baseline Obstructive sleep apnea - CPAP at bedtime DVT Prophylaxis -fully anticoagulated with Coumadin Plan/VTE VTE Prophylaxis Ordered?: Yes VS, I&O, 24H, [facility] Vital Signs/I&O Vital Signs Date Time Temp Pulse Resp B/P (MAP) Pulse Ox O2 Delivery O2 Flow Rate FiO2 11/29/18 08:00 160/81 11/29/18 06:00 97.3 74 18 94 I&O- Last 24 Hours up to 6 AM 11/29/18 06:00 Intake Total 1440 ml Output Total 2925 ml Balance -1485 ml Laboratory Data 24H LABS Laboratory Tests 2 11/28/18 11:29: Bedside Glucose (Misc Panel) 234H 11/28/18 16:41: Bedside Glucose (Misc Panel) 317H 11/28/18 20:35: Bedside Glucose (Misc Panel) 316H 11/29/18 06:10: Bedside Glucose (Misc Panel) 348H 11/29/18 06:18: Prothrombin Time 24.8H, Prothromb Time International Ratio 2.26 TEDDY CHILEL [facility] Nov 29, 2018 09:27
[2018-11-29 14:00] VITALS: BP 155/76
--- NOTE | 2018-11-29 14:25 | IPNPDOC ---
PM&R Progress Note DATE OF SERVICE: Nov 29, 2018 Progressive Care Nurse Progress Note Subjective: Patient reporting he has chronic back pain and believes he will always need opioids. He was agreeable to trying back strengthening exercises in therapy. REVIEW OF SYSTEMS: The following is a completed review of systems and has been reviewed. Review of systems otherwise unremarkable. PAIN: Patient self reports left residual limb pain EYES: no recent vision changes EARS, NOSE, & THROAT: denies dysphagia, no rhinorrhea CARDIOVASCULAR: denies chest pain/palpitations PULMONARY: Negative. Denies shortness of breath GASTROINTESTINAL: no diarrhea/constipation GENITOURINARY: no dysuria MUSCULOSKELETAL: left BKA, chronic low back pain HEMATOLOGICAL: Negative SKIN: left residual limb incision PSYCHIATRIC: Unremarkable All other review of systems found to be negative. PHYSICAL EXAMINATION: VITAL SIGNS: Please see below. GENERAL: Pleasant and cooperative. No acute distress. HEENT: PERRL. Extraocular movements intact. Clear conjunctiva CARDIOVASCULAR: Regular rate and rhythm. No murmurs, rubs, or gallops LUNGS: Clear to auscultation bilaterally. No wheezes. No rhonchi ABDOMEN: Soft, nontender, nondistended. Positive bowel sounds. Normal active bowel sounds NEUROLOGICAL: Alert and oriented times three. Cranial nerves II through XII grossly intact. Sensation grossly intact except diminished in LLE and distal RLE EXTREMITIES: 5\5 strength bilateral upper extremities. 5-\5 strength right lower extremity. 5-/5 strength in left hip flexors and knee flexors left shoulder exam- + Neers, +painful arc right knee- incision healed, no warmth/swelling, ROM functional, palpable click with extension SKIN: left residual limb incision c/d/i without induration, mild erythema ASSESSMENT:58-year-old M with past medical history of HTN, DM, chronic wound who presents status post left BKA. PLAN: 1. Rehab: PT, OT, assess for DME needs -goal is to stretch and strengthen his residual limb, prevent knee/hip flexion contractures, utilize desensitization techniques, strengthen core and upper body strength for safe and effective wheelchair propulsion -mod-I for wheelchair propulsions 2. Neuro: peripheral neuropathy- c/u tight glycemic control 3. Cardio: pmh HTN and HLD, c/u amlodipine, Carvedilol, Enalapril, and nifedipine- ASA and statin, medicine consulted to assist in management 4. Resp: encourage incentive spirometry, may use home CPAP for SARAH 5. Endo: pmh DM, c/u Levemir and ISS 6. Vasc: pmh RUE DVT, s/p Lovenox bridge c/u Coumadin, monitor daily INRs 7. : monitor PVRs 8. GI ppx: omeprazole 9. Pain: oxycodone, c/u Elavil at 50mg qHS, and Tylenol -c/u Gabapentin 300mg TID -lidoderm patch to left shoulder and kinesiotape -menthol salicylate to right knee for suspected osteoarthritis - therapy to incorporate a back program into his minutes 10. DVT ppx: s/p Lovenox bridge, c/u warfarin 11. Skin: BID dressing changes 12. Hyperkalemia- s/p Kayexalate, improving 12. Dispo: Patient currently does not have safe dispo, awaiting housing from [facility], one obtained we are required to do a home eval Allergies Coded Allergies: povidone-iodine (Verified Allergy, Unknown, 08/18/18) soap (Verified Allergy, Unknown, 08/18/18) Vital Signs Vital Signs Date Time Temp Pulse Resp B/P (MAP) Pulse Ox O2 Delivery O2 Flow Rate FiO2 11/29/18 14:00 97.5 80 16 155/76 (102) 98 Laboratory Data Labs 24H Laboratory Tests 2 11/28/18 16:41: Bedside Glucose (Misc Panel) 317H 11/28/18 20:35: Bedside Glucose (Misc Panel) 316H 11/29/18 06:10: Bedside Glucose (Misc Panel) 348H 11/29/18 06:18: Prothrombin Time 24.8H, Prothromb Time International Ratio 2.26 11/29/18 11:43: Bedside Glucose (Misc Panel) 243H Current Medications Current Medications Current Medications Acetaminophen (Tylenol Tab) 1,000 mg TID PO Last administered on 11/29/18at 08:02; Start 11/16/18 at 21:00 Amitriptyline HCl (Elavil) 25 mg QHS PO Last administered on 11/16/18at 20:34; Start 11/16/18 at 21:00; Stop 11/17/18 at 14:27; Status DC Amitriptyline HCl (Elavil) 50 mg QHS PO Last administered on 11/18/18 21:38; Start 11/17/18 at 21:00; Stop 11/19/18 at 09:55; Status DC Amitriptyline HCl (Elavil) 50 mg QHS PO Last administered on 11/28/18 21:55; Start 11/19/18 at 21:00 Amlodipine Besylate (Norvasc) 5 mg BID PO Last administered on 11/17/18 08:16; Start 11/16/18 at 21:00; Stop 11/17/18 at 14:27; Status DC Apixaban (Eliquis) 5 mg BID PO ; Start 11/19/18 at 21:00; Stop 11/19/18 at 21:00; Status DC Aspirin (Aspirin Chewable) 81 mg DAILY PO Last administered on 11/29/18 08:00; Start 11/17/18 at 09:00 Atorvastatin Calcium (Lipitor) 10 mg QHS PO Last administered on 11/28/18 21:56; Start 11/16/18 at 21:00 Bisacodyl (Dulcolax Suppository) 10 mg DAILYPRN PRN AR CONSTIPATION; Start 11/16/18 at 18:45 Bupropion HCl (Wellbutrin Xl) 150 mg DAILY PO Last administered on 11/29/18 08:01; Start 11/17/18 at 09:00 Calcium Carbonate (Tums) 1,000 mg Q4HP PRN PO HEARTBURN; Start 11/16/18 at 18:45 Carvedilol (COReg) 25 mg BID PO Last administered on 11/29/18 08:01; Start 11/16/18 at 21:00 Cetirizine HCl (ZyrTEC) 5 mg QHS PO Last administered on 11/28/18 21:56; Start 11/16/18 at 21:00 Dextrose (Dextrose 50%) 25 ml ASDIRECTED PRN IV SEE LABEL COMMENTS; Start 11/16/18 at 18:45 Docusate Sodium (Colace) 100 mg BID PO Last administered on 11/21/18 20:51; Start 11/16/18 at 21:00 Enalapril Maleate (Vasotec) 10 mg BID PO ; Start 11/22/18 at 21:00; Stop 11/22/18 at 21:00; Status DC Enalapril Maleate (Vasotec) 20 mg BID PO Last administered on 11/22/18at 08:55; Start 11/16/18 at 21:00; Stop 11/22/18 at 10:07; Status DC Enoxaparin Sodium (Lovenox) 150 mg Q12H SC Last administered on 11/24/18at 08:22; Start 11/16/18 at 21:00; Stop 11/24/18 at 10:26; Status DC Gabapentin (Neurontin) 300 mg TID PO Last administered on 11/29/18at 08:00; Start 11/18/18 at 21:00 Glucagon (Glucagon) 1 mg ASDIRECTED PRN SC SEE LABEL COMMENTS; Start 11/16/18 at 18:45 Glucose (Glucose) 16 GM ASDIRECTED PRN PO SEE LABEL COMMENTS; Start 11/16/18 at 18:45 Home Med (Med Rec Complete!) ASDIRECTED XX ; Start 11/16/18 at 16:00; Stop 11/16/18 at 16:00; Status DC Insulin Detemir (Levemir Insulin) 10 units QHS SC Last administered on at 21:09; Start 11/16/18 at 21:00; Stop 11/18/18 at 09:52; Status DC Insulin Detemir (Levemir Insulin) 15 units QHS SC Last administered on 11/23/18at 21:53; Start 11/18/18 at 21:00; Stop 11/24/18 at 10:26; Status DC Insulin Detemir (Levemir Insulin) 20 units QHS SC Last administered on 11/28/18at 21:55; Start 11/24/18 at 21:00 Insulin Human Lispro (HumaLOG INSULIN) SEE PROTOCOL TABLE AC SC Last administered on 11/29/18at 12:46; Start 11/17/18 at 07:30 Insulin Human Lispro (HumaLOG INSULIN) SEE PROTOCOL TABLE QHS SC Last administered on 11/28/18at 21:54; Start 11/16/18 at 21:00 Isosorbide Mononitrate (Imdur) 30 mg DAILY PO Last administered on 11/29/18at 08:01; Start 11/19/18 at 11:00 Lidocaine (Lidoderm Patch) 1 patch DAILY TD Last administered on 11/29/18 08:02; Start 11/23/18 at 09:00 Magnesium Hydroxide (Milk Of Magnesia) 30 ml DAILYPRN PRN PO CONSTIPATION; Start 11/16/18 at 18:45 Menthol/Methyl Salicylate (Bengay Cream) right knee BID TOP Last administered on 11/28/18 21:57; Start 11/23/18 at 21:00 Nifedipine (Procardia Xl) 90 mg DAILY PO Last administered on 11/29/18 08:00; Start 11/17/18 at 09:00 Non-Formulary Medication ( See Comment Field Below ) DAILY@21 XX Last administered on 11/28/18 21:56; Start 11/22/18 at 21:00 Non-Formulary Medication ( See Comment Field Below ) REMOVE LIDODERM PATCH DAILY@0415 XX ; Start 11/23/18 at 04:15; Stop 11/23/18 at 04:15; Status DC Omeprazole (PriLOSEC) 40 mg DAILY PO Last administered on 11/29/18 08:01; Start 11/17/18 at 09:00 Ondansetron HCl (Zofran) 4 mg Q6HP PRN PO NAUSEA; Start 11/16/18 at 18:45 Oxycodone HCl (Roxicodone, Oxyir) 5 mg Q4HP PRN PO PAIN Last administered on 11/27/18 12:45; Start 11/27/18 at 12:00; Stop 11/29/18 at 08:50; Status DC Oxycodone HCl (Roxicodone, Oxyir) 5 mg Q6HP PRN PO PAIN; Start 11/29/18 at 12:45 Oxycodone HCl (Roxicodone, Oxyir) 10 mg Q4HP PRN PO SEVERE PAIN (PS 8-10) Last administered on 11/26/18 12:45; Start 11/16/18 at 17:45; Stop 11/27/18 at 11:57; Status DC Senna (Senokot) 1 tab QHS PO Last administered on 11/28/18 21:55; Start 11/16/18 at 21:00 Warfarin Sodium (Coumadin) 10 mg DAILY@1700 PO Last administered on 11/17/18at 16:19; Start 11/16/18 at 17:00; Stop 11/18/18 at 09:52; Status DC Warfarin Sodium (Coumadin) 15 mg DAILY@1700 PO Last administered on 11/21/18at 16:46; Start 11/18/18 at 17:00; Stop 11/22/18 at 07:26; Status DC Warfarin Sodium (Coumadin) 17.5 mg DAILY@1700 PO Last administered on 11/28/18at 16:55; Start 11/22/18 at 17:00 KEVIN GODOY MD Nov 29, 2018 14:25
[2018-11-29] MEDS: WARFARIN SOD 5 MG TAB PO SCH (17:15)
[2018-11-29 20:00] VITALS: BP 160/82
[2018-11-29] MEDS: SENNA 8.6 MG TAB (SENOKOT) PO SCH (21:00)
[2018-11-29] MEDS: ATORVASTATIN 10 MG TAB PO SCH (21:11)
[2018-11-29] MEDS: LEVEMIR (INSULIN DETEMIR) 1 UNITS/0.01ML SC SCH (21:11)
[2018-11-29] MEDS: CETIRIZINE (ZyrTEC) 10 MG TAB PO SCH (21:12)
[2018-11-29] MEDS: AMITRIPTYLINE 50 MG TAB PO SCH (21:14)
[2018-11-29] MEDS: oxyCODONE 5MG TAB PO PRN (21:15)
[2018-11-29] MEDS: **NOTE PATIENT COMMENT** MISC XX SCH (21:15)
[2018-11-30 05:44] VITALS: BP 140/75
[2018-11-30 06:00] LABS: INR 2.25; PROTHROMBIN TIME 24.7 SECONDS (11.8-14.0)
[2018-11-30] MEDS: GABAPENTIN 300 MG CAP PO SCH ×3 (08:47→21:54)
[2018-11-30] MEDS: ACETAMINOPHEN 500 MG TAB PO SCH ×3 (08:47→21:54)
[2018-11-30] MEDS: buPROPion **XL** TABLET 150MG (WELLBUTRIN XL) PO SCH (08:47)
[2018-11-30] MEDS: LIDOCAINE 5% (LIDODERM) PATCH TD SCH (08:47)
[2018-11-30] MEDS: HumaLOG INSULIN (NovoLOG) PER UNIT SC SCH ×4 (08:47→21:55)
[2018-11-30] MEDS: DOCUSATE SODIUM 100 MG CAP PO SCH ×3 (08:47→21:00)
[2018-11-30] MEDS: OMEPRAZOLE 20 MG CAP PO SCH (08:47)
[2018-11-30] MEDS: ASPIRIN 81 MG CHEW TABLET PO SCH (08:47)
[2018-11-30] MEDS: ISOSORBIDE MON. (IMDUR) 30 MG XR TAB PO SCH (08:48)
[2018-11-30] MEDS: CARVedilol 12.5 MG TAB PO SCH ×2 (08:48→21:54)
[2018-11-30] MEDS: ANALGESIC BALM CRM 120 GM TOP SCH ×2 (08:49→21:55)
[2018-11-30] MEDS: NIFEdipine 30 MG XL TAB PO SCH (08:49)
[2018-11-30 14:00] VITALS: BP 156/73
--- NOTE | 2018-11-30 15:53 | IPNPDOC ---
PM&R Progress Note DATE OF SERVICE: Nov 30, 2018 [employer]ist Progress Note Subjective: Patient stating he understands that he will soon be transitioned out of 3 hours of therapy because he has nearly met all of his short-term rehab goals. REVIEW OF SYSTEMS: The following is a completed review of systems and has been reviewed. Review of systems otherwise unremarkable. PAIN: Patient self reports left residual limb pain EYES: no recent vision changes EARS, NOSE, & THROAT: denies dysphagia, no rhinorrhea CARDIOVASCULAR: denies chest pain/palpitations PULMONARY: Negative. Denies shortness of breath GASTROINTESTINAL: no diarrhea/constipation GENITOURINARY: no dysuria MUSCULOSKELETAL: left BKA, chronic low back pain HEMATOLOGICAL: Negative SKIN: left residual limb incision PSYCHIATRIC: Unremarkable All other review of systems found to be negative. PHYSICAL EXAMINATION: VITAL SIGNS: Please see below. GENERAL: Pleasant and cooperative. No acute distress. HEENT: PERRL. Extraocular movements intact. Clear conjunctiva CARDIOVASCULAR: Regular rate and rhythm. No murmurs, rubs, or gallops LUNGS: Clear to auscultation bilaterally. No wheezes. No rhonchi ABDOMEN: Soft, nontender, nondistended. Positive bowel sounds. Normal active bowel sounds NEUROLOGICAL: Alert and oriented times three. Cranial nerves II through XII grossly intact. Sensation grossly intact except diminished in LLE and distal RLE EXTREMITIES: 5\5 strength bilateral upper extremities. 5-\5 strength right lower extremity. 5-/5 strength in left hip flexors and knee flexors left shoulder exam- + Neers, +painful arc right knee- incision healed, no warmth/swelling, ROM functional, palpable click with extension SKIN: left residual limb incision c/d/i without induration, mild erythema ASSESSMENT:58-year-old M with past medical history of HTN, DM, chronic wound who presents status post left BKA. PLAN: 1. Rehab: PT, OT, assess for DME needs-room privileges from wheelchair level -goal is to stretch and strengthen his residual limb, prevent knee/hip flexion contractures, utilize desensitization techniques, strengthen core and upper body strength for safe and effective wheelchair propulsion -mod-I for wheelchair propulsions and ADLs, will need to work on fall recovery, car transfers, and kitchen tasks 2. Neuro: peripheral neuropathy- c/u tight glycemic control 3. Cardio: pmh HTN and HLD, c/u amlodipine, Carvedilol, Enalapril, and nifedipine- ASA and statin, medicine consulted to assist in management 4. Resp: encourage incentive spirometry, may use home CPAP for SARAH 5. Endo: pmh DM, c/u Levemir and ISS 6. Vasc: pmh RUE DVT, s/p Lovenox bridge c/u Coumadin, monitor daily INRs 7. : monitor PVRs 8. GI ppx: omeprazole 9. Pain: oxycodone, c/u Elavil at 50mg qHS, and Tylenol -c/u Gabapentin 300mg TID -lidoderm patch to left shoulder and kinesiotape -menthol salicylate to right knee for suspected osteoarthritis - therapy to incorporate a back program into his minutes 10. DVT ppx: s/p Lovenox bridge, c/u warfarin 11. Skin: BID dressing changes 12. Hyperkalemia- s/p Kayexalate, improving 12. Dispo: Patient currently does not have safe dispo, awaiting housing from [facility], one obtained we are required to do a home eval- patient has nearly met all of his short-term goals for mobility and at this time is declining ambulation on his right leg due to pain Allergies Coded Allergies: povidone-iodine (Verified Allergy, Unknown, 08/18/18) soap (Verified Allergy, Unknown, 08/18/18) Vital Signs Vital Signs Date Time Temp Pulse Resp B/P (MAP) Pulse Ox O2 Delivery O2 Flow Rate FiO2 11/30/18 14:00 98.5 80 18 156/73 (100) 96 Laboratory Data Labs 24H Laboratory Tests 2 11/29/18 16:57: Bedside Glucose (Misc Panel) 350H 11/29/18 19:33: Bedside Glucose (Misc Panel) 292H 11/30/18 05:33: Prothrombin Time 24.7H, Prothromb Time International Ratio 2.25 11/30/18 06:15: Bedside Glucose (Misc Panel) 337H 11/30/18 11:27: Bedside Glucose (Misc Panel) 358H Current Medications Current Medications Current Medications Acetaminophen (Tylenol Tab) 1,000 mg TID PO Last administered on 11/30/18at 08:47; Start 11/16/18 at 21:00 Amitriptyline HCl (Elavil) 25 mg QHS PO Last administered on 11/16/18 20:34; Start 11/16/18 at 21:00; Stop 11/17/18 at 14:27; Status DC Amitriptyline HCl (Elavil) 50 mg QHS PO Last administered on 11/18/18 21:38; Start 11/17/18 at 21:00; Stop 11/19/18 at 09:55; Status DC Amitriptyline HCl (Elavil) 50 mg QHS PO Last administered on 11/29/18 21:14; Start 11/19/18 at 21:00 Amlodipine Besylate (Norvasc) 5 mg BID PO Last administered on 11/17/18 08:16; Start 11/16/18 at 21:00; Stop 11/17/18 at 14:27; Status DC Apixaban (Eliquis) 5 mg BID PO ; Start 11/19/18 at 21:00; Stop 11/19/18 at 21:00; Status DC Aspirin (Aspirin Chewable) 81 mg DAILY PO Last administered on 11/30/18 08:47; Start 11/17/18 at 09:00 Atorvastatin Calcium (Lipitor) 10 mg QHS PO Last administered on 11/29/18 21 :11; Start 11/16/18 at 21:00 Bisacodyl (Dulcolax Suppository) 10 mg DAILYPRN PRN DC CONSTIPATION; Start 11/16/18 at 18:45 Bupropion HCl (Wellbutrin Xl) 150 mg DAILY PO Last administered on 11/30/18 08:47; Start 11/17/18 at 09:00 Calcium Carbonate (Tums) 1,000 mg Q4HP PRN PO HEARTBURN; Start 11/16/18 at 18:45 Carvedilol (COReg) 25 mg BID PO Last administered on 11/30/18 08:48; Start 11/16/18 at 21:00 Cetirizine HCl (ZyrTEC) 5 mg QHS PO Last administered on 11/29/18 21:12; Start 11/16/18 at 21:00 Dextrose (Dextrose 50%) 25 ml ASDIRECTED PRN IV SEE LABEL COMMENTS; Start 11/16/18 at 18:45 Docusate Sodium (Colace) 100 mg BID PO Last administered on 11/21/18at 20:51; Start 11/16/18 at 21:00 Enalapril Maleate (Vasotec) 10 mg BID PO ; Start 11/22/18 at 21:00; Stop 11/22/18 at 21:00; Status DC Enalapril Maleate (Vasotec) 20 mg BID PO Last administered on 11/22/18at 08:55; Start 11/16/18 at 21:00; Stop 11/22/18 at 10:07; Status DC Enoxaparin Sodium (Lovenox) 150 mg Q12H SC Last administered on 11/24/18at 08:22; Start 11/16/18 at 21:00; Stop 11/24/18 at 10:26; Status DC Gabapentin (Neurontin) 300 mg TID PO Last administered on 11/30/18at 08:47; Start 11/18/18 at 21:00 Glucagon (Glucagon) 1 mg ASDIRECTED PRN SC SEE LABEL COMMENTS; Start 11/16/18 at 18:45 Glucose (Glucose) 16 GM ASDIRECTED PRN PO SEE LABEL COMMENTS; Start 11/16/18 at 18:45 Home Med (Med Rec Complete!) ASDIRECTED XX ; Start 11/16/18 at 16:00; Stop 11/16/18 at 16:00; Status DC Insulin Detemir (Levemir Insulin) 10 units QHS SC Last administered on at 21:09; Start 11/16/18 at 21:00; Stop 11/18/18 at 09:52; Status DC Insulin Detemir (Levemir Insulin) 15 units QHS SC Last administered on 11/23/18at 21:53; Start 11/18/18 at 21:00; Stop 11/24/18 at 10:26; Status DC Insulin Detemir (Levemir Insulin) 20 units QHS SC Last administered on 11/29/18at 21:11; Start 11/24/18 at 21:00; Stop 11/30/18 at 11:00; Status DC Insulin Detemir (Levemir Insulin) 30 units QHS SC ; Start 11/30/18 at 21:00 Insulin Human Lispro (HumaLOG INSULIN) SEE PROTOCOL TABLE AC SC Last ad ministered on 11/30/18 12:40; Start 11/17/18 at 07:30 Insulin Human Lispro (HumaLOG INSULIN) SEE PROTOCOL TABLE QHS SC Last adm inistered on 11/29/18 21:11; Start 11/16/18 at 21:00 Isosorbide Mononitrate (Imdur) 30 mg DAILY PO Last administered on 11/30/18 08:48; Start 11/19/18 at 11:00 Lidocaine (Lidoderm Patch) 1 patch DAILY TD Last administered on 11/30/18 08:47; Start 11/23/18 at 09:00 Magnesium Hydroxide (Milk Of Magnesia) 30 ml DAILYPRN PRN PO CONSTIPATION; Start 11/16/18 at 18:45 Menthol/Methyl Salicylate (Bengay Cream) right knee BID TOP Last administered on 11/29/18 21:15; Start 11/23/18 at 21:00 Nifedipine (Procardia Xl) 90 mg DAILY PO Last administered on 11/30/18 08:49; Start 11/17/18 at 09:00 Non-Formulary Medication ( See Comment Field Below ) DAILY@21 XX Last administered on 11/29/18 21:15; Start 11/22/18 at 21:00 Non-Formulary Medication ( See Comment Field Below ) REMOVE LIDODERM PATCH DAILY@0415 XX ; Start 11/23/18 at 04:15; Stop 11/23/18 at 04:15; Status DC Omeprazole (PriLOSEC) 40 mg DAILY PO Last administered on 11/30/18 08:47; Start 11/17/18 at 09:00 Ondansetron HCl (Zofran) 4 mg Q6HP PRN PO NAUSEA; Start 11/16/18 at 18:45 Oxycodone HCl (Roxicodone, Oxyir) 5 mg Q4HP PRN PO PAIN Last administered on 11/27/18 12:45; Start 11/27/18 at 12:00; Stop 11/29/18 at 08:50; Status DC Oxycodone HCl (Roxicodone, Oxyir) 5 mg Q6HP PRN PO PAIN Last administered on 21:15; Start 11/29/18 at 12:45 Oxycodone HCl (Roxicodone, Oxyir) 10 mg Q4HP PRN PO SEVERE PAIN (PS 8-10) Last administered on 11/26/18 12:45; Start 11/16/18 at 17:45; Stop 11/27/18 at 11:57; Status DC Senna (Senokot) 1 tab QHS PO Last administered on 11/28/18at 21:55; Start 11/16/18 at 21:00 Warfarin Sodium (Coumadin) 10 mg DAILY@1700 PO Last administered on 11/17/18at 16:19; Start 11/16/18 at 17:00; Stop 11/18/18 at 09:52; Status DC Warfarin Sodium (Coumadin) 15 mg DAILY@1700 PO Last administered on 11/21/18at 16:46; Start 11/18/18 at 17:00; Stop 11/22/18 at 07:26; Status DC Warfarin Sodium (Coumadin) 17.5 mg DAILY@1700 PO Last administered on 11/29/18 17:15; Start 11/22/18 at 17:00 KEVIN GODOY MD Nov 30, 2018 15:53
[2018-11-30] MEDS: WARFARIN SOD 5 MG TAB PO SCH (17:48)
[2018-11-30 19:47] VITALS: BP 144/78
[2018-11-30] MEDS ORDERED: LEVEMIR (INSULIN DETEMIR) 1 UNITS/0.01ML SC SCH (21:00)
[2018-11-30] MEDS: **NOTE PATIENT COMMENT** MISC XX SCH (21:00)
[2018-11-30] MEDS: SENNA 8.6 MG TAB (SENOKOT) PO SCH (21:00)
[2018-11-30] MEDS: ATORVASTATIN 10 MG TAB PO SCH (21:53)
[2018-11-30] MEDS: CETIRIZINE (ZyrTEC) 10 MG TAB PO SCH (21:53)
[2018-11-30] MEDS: AMITRIPTYLINE 50 MG TAB PO SCH (21:54)
[2018-11-30] MEDS: oxyCODONE 5MG TAB PO PRN (22:13)
[2018-12-01 05:46] VITALS: BP 160/80
[2018-12-01 06:59] LABS: INR 2.31; PROTHROMBIN TIME 25.2 SECONDS (11.8-14.0)
[2018-12-01] MEDS: HumaLOG INSULIN (NovoLOG) PER UNIT SC SCH ×5 (08:21→21:49)
[2018-12-01] MEDS: ACETAMINOPHEN 500 MG TAB PO SCH ×3 (08:22→21:51)
[2018-12-01] MEDS: oxyCODONE 5MG TAB PO PRN ×2 (08:22→14:42)
[2018-12-01] MEDS: OMEPRAZOLE 20 MG CAP PO SCH (08:24)
[2018-12-01] MEDS: buPROPion **XL** TABLET 150MG (WELLBUTRIN XL) PO SCH (08:24)
[2018-12-01] MEDS: GABAPENTIN 300 MG CAP PO SCH ×3 (08:24→21:49)
[2018-12-01] MEDS: ISOSORBIDE MON. (IMDUR) 30 MG XR TAB PO SCH (08:24)
[2018-12-01] MEDS: ASPIRIN 81 MG CHEW TABLET PO SCH (08:24)
[2018-12-01] MEDS: CARVedilol 12.5 MG TAB PO SCH ×2 (08:24→21:50)
[2018-12-01] MEDS: NIFEdipine 30 MG XL TAB PO SCH (08:24)
[2018-12-01] MEDS: ANALGESIC BALM CRM 120 GM TOP SCH ×2 (08:25→21:51)
[2018-12-01] MEDS: LIDOCAINE 5% (LIDODERM) PATCH TD SCH (08:25)
[2018-12-01] MEDS: DOCUSATE SODIUM 100 MG CAP PO SCH ×2 (09:00→21:00)
[2018-12-01] MEDS ORDERED: LEVEMIR (INSULIN DETEMIR) 1 UNITS/0.01ML SC SCH ×2 (09:00→21:00)
[2018-12-01 09:57] LABS: BASO # 0.1 10^3/uL (0.0-0.2); BASO % 1.5 % (0.0-1.0); EOS # 0.7 10^3/uL (0.0-0.50); EOS % 7.1 % (0.0-3.0); HEMATOCRIT 42.4 % (42.0-52.0); HEMOGLOBIN 12.9 g/dl (13.5-17.5); LYMPH # 1.3 10^3/uL (1.5-4.5); MEAN CORPUSCULAR HEMOGLOBIN 24.1 pg (27.0-33.0); MEAN CORPUSCULAR HGB CONC 30.4 g/dl (32.0-36.5); MEAN CORPUSCULAR VOLUME 79.1 fl (80.0-96.0); MONO # 0.4 10^3/uL (0.0-0.8); MONO % 4.5 % (0.0-5.0); NEUTROPHILS # 6.6 10^3/uL (1.8-7.7); NEUTROPHILS % 71.3 % (36.0-66.0); PLATELET COUNT, AUTOMATED 536 10^3/uL (150-450); RED BLOOD COUNT 5.36 10^6/uL (4.30-6.10); WHITE BLOOD COUNT 9.3 10^3/uL (4.0-10.0)
[2018-12-01 10:12] LABS: C REACTIVE PROTEIN QUANTITATIV 0.3 MG/DL (0.00-0.30); CALCIUM LEVEL 9.6 MG/DL (8.5-10.1); CREATININE FOR GFR 1.69 MG/DL (0.70-1.30); GLOMERULAR FILTRATION RATE 44.6 (>56); POTASSIUM SERUM 4.6 MEQ/L (3.5-5.1)
[2018-12-01 10:58] LABS: ERYTHROCYTE SEDIMENTATION RATE 6 mm/hr (0-20)
[2018-12-01 11:33] LABS: HEMOGLOBIN A1c 9.9 %
--- NOTE | 2018-12-01 12:42 | IPNPDOC ---
Text Note Date of Service The patient was seen on 12/01/18. NOTE Subjective: Patient continues to improve with therapy. Has no new complaints today. Objective: GENERAL: NAD SKIN : Warm, dry intact HEENT: Atraumatic, normocephalic, PERRL, moist mucous membrane CARDIOVASCULAR: Regular rate and rhythm, S1S2, no JVD, right distal pulses not palpable RESP: CTAB, no accessory muscle use noted ABDOMEN: BS+ non distended non tender MS: Left BKA NEURO: Alert and oriented x 3, CN2-12 grossly intact PSYCH: no anxiety or agitation, appropriate mood and affect. Assessment and plan Left heel cellulitis -which progressed to nonhealing ulcer, in a patient with poorly controlled diabetes -s/p left BKA on 11/[address] Go of Vascular Surgery -Rehabilitation per primary team Diabetes mellitus -Hemoglobin A1c 9.9, blood glucose range between 200 to 300s -adjust Levemir dose to 40 units QHS with bolus therapy with meals -continue calorie controlled diet -titrate insulin based on response with target fasting glucose <200 DVT right upper extremity -continue Coumadin, INR monitoring Hypertension - -uncontrolled on Coreg, Imdur, Nifedipine -continue to adjust doses and target SBP<140mmHg Obstructive sleep apnea - CPAP at bedtime DVT Prophylaxis -fully anticoagulated with Coumadin VS,Fishbone, I+O VS, Fishbone, I+O Laboratory Tests 12/01/18 09:38 Red Blood Count 5.36, Mean Corpuscular Volume 79.1 L, Mean Corpuscular Hemoglobin 24.1 L, Mean Corpuscular Hemoglobin Concent 30.4 L, Red Cell Distribu tion Width 17.2 H, Neutrophils (%) (Auto) 71.3 H, Lymphocytes (%) (Auto) 14.0 L, Monocytes (%) (Auto) 4.5, Eosinophils (%) (Auto) 7.1 H, Basophils (%) (Auto) 1.5 H, Neutrophils # (Auto) 6.6, Lymphocytes # (Auto) 1.3 L, Monocytes # (Auto) 0.4, Eosinophils # (Auto) 0.7 H, Basophils # (Auto) 0.1, Calcium Level 9.6 Vital Signs Date Time Temp Pulse Resp B/P (MAP) Pulse Ox O2 Delivery O2 Flow Rate FiO2 12/01/18 08:52 18 12/01/18 08:24 160/80 12/01/18 08:24 71 12/01/18 05:46 97.4 96 I&O- Last 24 Hours up to 6 AM 12/01/18 06:00 Intake Total 1260 ml Output Total 1400 ml Balance -140 ml TEDDY CHILEL [facility] Dec 01, 2018 12:42
--- NOTE | 2018-12-01 13:40 | IPNPDOC ---
PM&R Progress Note DATE OF SERVICE: Dec 01, 2018 Sand Worker Progress Note Subjective: Patient isidro he woke up feeling stiff in his back and it lasted 45 minutes. He was encouraged to stretch and do gentle exercises in bed to loosen up. REVIEW OF SYSTEMS: The following is a completed review of systems and has been reviewed. Review of systems otherwise unremarkable. PAIN: Patient self reports left residual limb pain EYES: no recent vision changes EARS, NOSE, & THROAT: denies dysphagia, no rhinorrhea CARDIOVASCULAR: denies chest pain/palpitations PULMONARY: Negative. Denies shortness of breath GASTROINTESTINAL: no diarrhea/constipation GENITOURINARY: no dysuria MUSCULOSKELETAL: left BKA, chronic low back pain HEMATOLOGICAL: Negative SKIN: left residual limb incision PSYCHIATRIC: Unremarkable All other review of systems found to be negative. PHYSICAL EXAMINATION: VITAL SIGNS: Please see below. GENERAL: Pleasant and cooperative. No acute distress. HEENT: PERRL. Extraocular movements intact. Clear conjunctiva CARDIOVASCULAR: Regular rate and rhythm. No murmurs, rubs, or gallops LUNGS: Clear to auscultation bilaterally. No wheezes. No rhonchi ABDOMEN: Soft, nontender, nondistended. Positive bowel sounds. Normal active bowel sounds NEUROLOGICAL: Alert and oriented times three. Cranial nerves II through XII grossly intact. Sensation grossly intact except diminished in LLE and distal RLE EXTREMITIES: 5\5 strength bilateral upper extremities. 5-\5 strength right lower extremity. 5-/5 strength in left hip flexors and knee flexors left shoulder exam- + Neers, +painful arc right knee- incision healed, no warmth/swelling, ROM functional, palpable click with extension SKIN: left residual limb incision c/d/i without induration, mild erythema ASSESSMENT:58-year-old M with past medical history of HTN, DM, chronic wound who presents status post left BKA. PLAN: 1. Rehab: PT, OT, assess for DME needs-room privileges from wheelchair level -goal is to stretch and strengthen his residual limb, prevent knee/hip flexion contractures, utilize desensitization techniques, strengthen core and upper body strength for safe and effective wheelchair propulsion -mod-I for wheelchair propulsions and ADLs, will need to work on fall recovery, car transfers, and kitchen tasks 2. Neuro: peripheral neuropathy- c/u tight glycemic control 3. Cardio: pmh HTN and HLD, c/u amlodipine, Carvedilol, Enalapril, and nifedipine- ASA and statin, medicine consulted to assist in management 4. Resp: encourage incentive spirometry, may use home CPAP for SARAH 5. Endo: pmh DM, c/u Levemir and ISS, pre-meal standing coverage added today and evening Levemir increased 6. Vasc: pmh RUE DVT, s/p Lovenox bridge c/u Coumadin, monitor daily INRs -left BKA, wound healing well, CRP trending down 7. : monitor PVRs 8. GI ppx: omeprazole 9. Pain: oxycodone, c/u Elavil at 50mg qHS, and Tylenol -c/u Gabapentin 300mg TID -lidoderm patch to left shoulder and kinesiotape -menthol salicylate to right knee for suspected osteoarthritis - therapy to incorporate a back program into his minutes 10. DVT ppx: s/p Lovenox bridge, c/u warfarin 11. Skin: BID dressing changes 12. Hyperkalemia- s/p Kayexalate, improving 12. Dispo: Patient currently does not have safe dispo, awaiting housing from [facility], one obtained we are required to do a home eval- patient has nearly met all of his short-term goals for mobility and at this time is declining ambulation on his right leg due to pain Allergies Coded Allergies: povidone-iodine (Verified Allergy, Unknown, 08/18/18) soap (Verified Allergy, Unknown, 08/18/18) Vital Signs Vital Signs Date Time Temp Pulse Resp B/P (MAP) Pulse Ox O2 Delivery O2 Flow Rate FiO2 12/01/18 08:52 18 12/01/18 08:24 160/80 12/01/18 08:24 71 12/01/18 05:46 97.4 96 Laboratory Data CBC/BMP Laboratory Tests 12/01/18 09:38 Red Blood Count 5.36, Mean Corpuscular Volume 79.1 L, Mean Corpuscular Hemoglobin 24.1 L, Mean Corpuscular Hemoglobin Concent 30.4 L, Red Cell Distribution Width 17.2 H, Neutrophils (%) (Auto) 71.3 H, Lymphocytes (%) (Auto) 14.0 L, Monocytes (%) (Auto) 4.5, Eosinophils (%) (Auto) 7.1 H, Basophils (%) (Auto) 1.5 H, Neutrophils # (Auto) 6.6, Lymphocytes # (Auto) 1.3 L, Monocytes # (Auto) 0.4, Eosinophils # (Auto) 0.7 H, Basophils # (Auto) 0.1, Calcium Level 9.6 Labs 24H Laboratory Tests 2 11/30/18 16:30: Bedside Glucose (Misc Panel) 382H 11/30/18 19:39: Bedside Glucose (Misc Panel) 279H 12/01/18 06:02: Bedside Glucose (Misc Panel) 336H 12/01/18 06:25: Prothrombin Time 25.2H, Prothromb Time International Ratio 2.31 12/01/18 06:32: Estimated Mean Plasma Glucose 237H, Hemoglobin A1c 9.9 12/01/18 09:38: Immature Granulocyte % (Auto) 1.6, White Blood Count 9.3, Red Blood Count 5.36, Hemoglobin 12.9L, Hematocrit 42.4, Mean Corpuscular Volume 79.1L, Mean Corpuscular Hemoglobin 24.1L, Mean Corpuscular Hemoglobin Concent 30.4L, Red Cell Distribution Width 17.2H, Platelet Count 536H, Neutrophils (%) (Auto) 71.3H, Lymphocytes (%) (Auto) 14.0L, Monocytes (%) (Auto) 4.5, Eosinophils (%) (Auto) 7.1H, Basophils (%) (Auto) 1.5H, Neutrophils # (Auto) 6.6, Lymphocytes # (Auto) 1.3L, Monocytes # (Auto) 0.4, Eosinophils # (Auto) 0.7H, Basophils # (Auto) 0.1, Nucleated Red Blood Cells % (auto) 0.0, Erythrocyte Sedimentation Rate 6, Anion Gap 5L, Glomerular Filtration Rate 44.6L, Blood Urea Nitrogen 28H, Creatinine 1.69H, Sodium Level 137, Potassium Level 4.6, Chloride Level 107, Carbon Dioxide Level 25, Calcium Level 9.6, C-Reactive Protein, Quantitative 0.30 12/01/18 11:48: Bedside Glucose (Misc Panel) 314H Current Medications Current Medications Current Medications Acetaminophen (Tylenol Tab) 1,000 mg TID PO Last administered on 12/01/18at 08:22; Start 6/25/19 at 21:00 Amitriptyline HCl (Elavil) 25 mg QHS PO Last administered on 11/16/18 20:34; Start 11/16/18 at 21:00; Stop 11/17/18 at 14:27; Status DC Amitriptyline HCl (Elavil) 50 mg QHS PO Last administered on 11/18/18 21:38; Start 11/17/18 at 21:00; Stop 11/19/18 at 09:55; Status DC Amitriptyline HCl (Elavil) 50 mg QHS PO Last administered on 11/30/18 21:54; Start 11/19/18 at 21:00 Amlodipine Besylate (Norvasc) 5 mg BID PO Last administered on 11/17/18 08:16; Start 11/16/18 at 21:00; Stop 11/17/18 at 14:27; Status DC Apixaban (Eliquis) 5 mg BID PO ; Start 11/19/18 at 21:00; Stop 11/19/18 at 21:00; Status DC Aspirin (Aspirin Chewable) 81 mg DAILY PO Last administered on 12/01/18 08:24; Start 11/17/18 at 09:00 Atorvastatin Calcium (Lipitor) 10 mg QHS PO Last administered on 11/30/18 21:53; Start 11/16/18 at 21:00 Bisacodyl (Dulcolax Suppository) 10 mg DAILYPRN PRN SC CONSTIPATION; Start 11/16/18 at 18:45 Bupropion HCl (Wellbutrin Xl) 150 mg DAILY PO Last administered on 12/01/18 08:24; Start 11/17/18 at 09:00 Calcium Carbonate (Tums) 1,000 mg Q4HP PRN PO HEARTBURN; Start 11/16/18 at 18:45 Carvedilol (COReg) 25 mg BID PO Last administered on 12/01/18 08:24; Start 11/16/18 at 21:00 Cetirizine HCl (ZyrTEC) 5 mg QHS PO Last administered on 11/30/18 21:53; Start 11/16/18 at 21:00 Dextrose (Dextrose 50%) 25 ml ASDIRECTED PRN IV SEE LABEL COMMENTS; Start 11/16/18 at 18:45 Docusate Sodium (Colace) 100 mg BID PO Last administered on 11/21/18at 20:51; Start 11/16/18 at 21:00 Enalapril Maleate (Vasotec) 10 mg BID PO ; Start 11/22/18 at 21:00; Stop 11/22/18 at 21:00; Status DC Enalapril Maleate (Vasotec) 20 mg BID PO Last administered on 11/22/18at 08:55; Start 11/16/18 at 21:00; Stop 11/22/18 at 10:07; Status DC Enoxaparin Sodium (Lovenox) 150 mg Q12H SC Last administered on 11/24/18at 08:22; Start 11/16/18 at 21:00; Stop 11/24/18 at 10:26; Status DC Gabapentin (Neurontin) 300 mg TID PO Last administered on 12/01/18at 08:24; Start 11/18/18 at 21:00 Glucagon (Glucagon) 1 mg ASDIRECTED PRN SC SEE LABEL COMMENTS; Start 11/16/18 at 18:45 Glucose (Glucose) 16 GM ASDIRECTED PRN PO SEE LABEL COMMENTS; Start 11/16/18 at 18:45 Home Med (Med Rec Complete!) ASDIRECTED XX ; Start 11/16/18 at 16:00; Stop 11/16/18 at 16:00; Status DC Insulin Detemir (Levemir Insulin) 10 units DAILY SC Last administered on 12/01/18at 11:01; Start 12/01/18 at 09:00; Stop 12/01/18 at 12:31; Status DC Insulin Detemir (Levemir Insulin) 10 units QHS SC Last administered on 11/17/18at 21:09; Start 11/16/18 at 21:00; Stop 11/18/18 at 09:52; Status DC Insulin Detemir (Levemir Insulin) 15 units QHS SC Last administered on 11/23/18at 21:53; Start 11/18/18 at 21:00; Stop 11/24/18 at 10:26; Status DC Insulin Detemir (Levemir Insulin) 20 units QHS SC Last administered on 11/29/18at 21:11; Start 11/24/18 at 21:00; Stop 11/30/18 at 11:00; Status DC Insulin Detemir (Levemir Insulin) 30 units QHS SC Last administered on 11/30/18 21:55; Start 11/30/18 at 21:00; Stop 12/01/18 at 12:31; Status DC Insulin Detemir (Levemir Insulin) 40 units QHS SC ; Start 12/01/18 at 21:00 Insulin Human Lispro (HumaLOG INSULIN) 7 units AC SC ; Start 12/01/18 at 17:30 Insulin Human Lispro (HumaLOG INSULIN) SEE PROTOCOL TABLE AC SC Last administered on 12/01/18at 13:02; Start 11/17/18 at 07:30 Insulin Human Lispro (HumaLOG INSULIN) SEE PROTOCOL TABLE QHS SC Last administered on 11/30/18at 21:55; Start 11/16/18 at 21:00 Isosorbide Mononitrate (Imdur) 30 mg DAILY PO Last administered on 12/01/18at 08:24; Start 11/19/18 at 11:00 Lidocaine (Lidoderm Patch) 1 patch DAILY TD Last administered on 12/01/18 08:25; Start 11/23/18 at 09:00 Magnesium Hydroxide (Milk Of Magnesia) 30 ml DAILYPRN PRN PO CONSTIPATION; Start 11/16/18 at 18:45 Menthol/Methyl Salicylate (Bengay Cream) right knee BID TOP Last administered on 12/01/18 08:25; Start 11/23/18 at 21:00 Nifedipine (Procardia Xl) 90 mg DAILY PO Last administered on 12/01/18at 08:24; Start 11/17/18 at 09:00 Non-Formulary Medication ( See Comment Field Below ) DAILY@21 XX Last administered on 11/29/18at 21:15; Start 11/22/18 at 21:00 Non-Formulary Medication ( See Comment Field Below ) REMOVE LIDODERM PATCH DAILY@0415 XX ; Start 11/23/18 at 04:15; Stop 11/23/18 at 04:15; Status DC Omeprazole (PriLOSEC) 40 mg DAILY PO Last administered on 12/01/18at 08:24; Start 11/17/18 at 09:00 Ondansetron HCl (Zofran) 4 mg Q6HP PRN PO NAUSEA; Start 11/16/18 at 18:45 Oxycodone HCl (Roxicodone, Oxyir) 5 mg Q4HP PRN PO PAIN Last administered on 11/27/18 12:45; Start 11/27/18 at 12:00; Stop 11/29/18 at 08:50; Status DC Oxycodone HCl (Roxicodone, Oxyir) 5 mg Q6HP PRN PO PAIN Last administered on 12/01/18 08:22; Start 11/29/18 at 12:45 Oxycodone HCl (Roxicodone, Oxyir) 10 mg Q4HP PRN PO SEVERE PAIN (PS 8-10) Last administered on 11/26/18 12:45; Start 11/16/18 at 17:45; Stop 11/27/18 at 11:57; Status DC Senna (Senokot) 1 tab QHS PO Last administered on 11/28/18 21:55; Start 11/16/18 at 21:00 Warfarin Sodium (Coumadin) 10 mg DAILY@1700 PO Last administered on 11/17/18 16:19; Start 11/16/18 at 17:00; Stop 11/18/18 at 09:52; Status DC Warfarin Sodium (Coumadin) 15 mg DAILY@1700 PO Last administered on 11/21/18 16:46; Start 11/18/18 at 17:00; Stop 11/22/18 at 07:26; Status DC Warfarin Sodium (Coumadin) 17.5 mg DAILY@1700 PO Last administered on 11/30/18 17:48; Start 11/22/18 at 17:00 KEVIN GODOY MD Dec 01, 2018 13:40
[2018-12-01 14:00] VITALS: BP 150/79
[2018-12-01] MEDS: WARFARIN SOD 5 MG TAB PO SCH (16:29)
[2018-12-01 21:00] VITALS: BP 161/65
[2018-12-01] MEDS: SENNA 8.6 MG TAB (SENOKOT) PO SCH (21:00)
[2018-12-01] MEDS: ATORVASTATIN 10 MG TAB PO SCH (21:50)
[2018-12-01] MEDS: AMITRIPTYLINE 50 MG TAB PO SCH (21:50)
[2018-12-01] MEDS: CETIRIZINE (ZyrTEC) 10 MG TAB PO SCH (21:50)
[2018-12-01] MEDS: **NOTE PATIENT COMMENT** MISC XX SCH (21:51)
[2018-12-02 06:00] VITALS: BP 172/82
[2018-12-02 06:38] LABS: INR 2.24; PROTHROMBIN TIME 24.6 SECONDS (11.8-14.0)
--- NOTE | 2018-12-02 07:51 | IPNPDOC ---
Text Note Date of Service The patient was seen on 12/02/18. NOTE Subjective: Seen during physical therapy session. Sates his usual insulin dose at home is 8 units lantus at bedtime. denies chest pain, SOB. Objective: GENERAL: NAD SKIN : Warm, dry intact HEENT: Atraumatic, normocephalic, PERRL, moist mucous membrane CARDIOVASCULAR: Regular rate and rhythm, S1S2, no JVD, right distal pulses not palpable RESP: CTAB, no accessory muscle use noted ABDOMEN: BS+ non distended non tender MS: Left BKA NEURO: Alert and oriented x 3, CN2-12 grossly intact PSYCH: no anxiety or agitation, appropriate mood and affect. Assessment and plan Left heel cellulitis -which progressed to nonhealing ulcer, in a patient with poorly controlled diabetes -s/p left BKA on 11/[address] Go of Vascular Surgery -Rehabilitation per primary team Diabetes mellitus -Hemoglobin A1c 9.9, blood glucose range between 200 to 300s -increase basal insulin to 68 units qHS -continue bolus therapy -continue calorie controlled diet -titrate insulin based on response with target fasting glucose <200 DVT right upper extremity -continue Coumadin, INR monitoring Hypertension - -uncontrolled still possibly due to uncontrolled blood glucose -continue Coreg, Imdur, Nifedipine -continue to adjust doses and target SBP<140mmHg Obstructive sleep apnea - CPAP at bedtime DVT Prophylaxis -fully anticoagulated with Coumadin VS,Fishbone, I+O VS, Fishbone, I+O Laboratory Tests 12/01/18 09:38 Red Blood Count 5.36, Mean Corpuscular Volume 79.1 L, Mean Corpuscular Hemoglobin 24.1 L, Mean Corpuscular Hemoglobin Concent 30.4 L, Red Cell Distribution Width 17.2 H, Neutrophils (%) (Auto) 71.3 H, Lymphocytes (%) (Auto) 14.0 L, Monocytes (%) (Auto) 4.5, Eosinophils (%) (Auto) 7.1 H, Basophils (%) (Auto) 1.5 H, Neutrophils # (Auto) 6.6, Lymphocytes # (Auto) 1.3 L, Monocytes # (Auto) 0.4, Eosinophils # (Auto) 0.7 H, Basophils # (Auto) 0.1, Calcium Level 9.6 Vital Signs Date Time Temp Pulse Resp B/P (MAP) Pulse Ox O2 Delivery O2 Flow Rate FiO2 12/02/18 06:00 99.0 79 18 172/82 112 95 I&O- Last 24 Hours up to 6 AM 12/02/18 06:00 Intake Total 1500 ml Output Total 300 ml Balance 1200 ml TEDDY CHILEL TRIAGE NURSE Dec 02, 2018 07:51
[2018-12-02] MEDS: buPROPion **XL** TABLET 150MG (WELLBUTRIN XL) PO SCH (08:33)
[2018-12-02] MEDS: OMEPRAZOLE 20 MG CAP PO SCH (08:33)
[2018-12-02] MEDS: CARVedilol 12.5 MG TAB PO SCH ×2 (08:33→21:27)
[2018-12-02] MEDS: oxyCODONE 5MG TAB PO PRN ×2 (08:34→21:25)
[2018-12-02] MEDS: GABAPENTIN 300 MG CAP PO SCH ×3 (08:34→21:28)
[2018-12-02] MEDS: ACETAMINOPHEN 500 MG TAB PO SCH ×3 (08:35→21:27)
[2018-12-02] MEDS: ASPIRIN 81 MG CHEW TABLET PO SCH (08:35)
[2018-12-02] MEDS: NIFEdipine 30 MG XL TAB PO SCH (08:35)
[2018-12-02] MEDS: ISOSORBIDE MON. (IMDUR) 30 MG XR TAB PO SCH (08:36)
[2018-12-02] MEDS: HumaLOG INSULIN (NovoLOG) PER UNIT SC SCH ×7 (08:36→21:00)
[2018-12-02] MEDS: ANALGESIC BALM CRM 120 GM TOP SCH ×2 (08:37→21:29)
[2018-12-02] MEDS: DOCUSATE SODIUM 100 MG CAP PO SCH ×2 (08:37→21:00)
[2018-12-02] MEDS: LIDOCAINE 5% (LIDODERM) PATCH TD SCH (08:37)
[2018-12-02 14:00] VITALS: BP 146/71
--- NOTE | 2018-12-02 14:43 | IPNPDOC ---
PM&R Progress Note DATE OF SERVICE: Dec 02, 2018 Mitigation Supervisor Progress Note Subjective: Patient seen doing his laundry from a wheelchair reporting he feels well overall. His left shoulder pain is controlled with the lidoderm patch. REVIEW OF SYSTEMS: The following is a completed review of systems and has been reviewed. Review of systems otherwise unremarkable. PAIN: Patient self reports left residual limb pain EYES: no recent vision changes EARS, NOSE, & THROAT: denies dysphagia, no rhinorrhea CARDIOVASCULAR: denies chest pain/palpitations PULMONARY: Negative. Denies shortness of breath GASTROINTESTINAL: no diarrhea/constipation GENITOURINARY: no dysuria MUSCULOSKELETAL: left BKA, chronic low back pain HEMATOLOGICAL: Negative SKIN: left residual limb incision PSYCHIATRIC: Unremarkable All other review of systems found to be negative. PHYSICAL EXAMINATION: VITAL SIGNS: Please see below. GENERAL: Pleasant and cooperative. No acute distress. HEENT: PERRL. Extraocular movements intact. Clear conjunctiva CARDIOVASCULAR: Regular rate and rhythm. No murmurs, rubs, or gallops LUNGS: Clear to auscultation bilaterally. No wheezes. No rhonchi ABDOMEN: Soft, nontender, nondistended. Positive bowel sounds. Normal active bowel sounds NEUROLOGICAL: Alert and oriented times three. Cranial nerves II through XII grossly intact. Sensation grossly intact except diminished in LLE and distal RLE EXTREMITIES: 5\5 strength bilateral upper extremities. 5-\5 strength right lower extremity. 5-/5 strength in left hip flexors and knee flexors left shoulder exam- + Neers, +painful arc right knee- incision healed, no warmth/swelling, ROM functional, palpable click with extension SKIN: left residual limb incision c/d/i without induration, mild erythema ASSESSMENT:58-year-old M with past medical history of HTN, DM, chronic wound who presents status post left BKA. PLAN: 1. Rehab: PT, OT, assess for DME needs-room privileges from wheelchair level -goal is to stretch and strengthen his residual limb, prevent knee/hip flexion contractures, utilize desensitization techniques, strengthen core and upper body strength for safe and effective wheelchair propulsion -mod-I for wheelchair propulsions and ADLs, will need to work on fall recovery, car transfers, and kitchen tasks 2. Neuro: peripheral neuropathy- c/u tight glycemic control 3. Cardio: pmh HTN and HLD, c/u amlodipine, Carvedilol, Enalapril, and nifedipine- ASA and statin, medicine consulted to assist in management 4. Resp: encourage incentive spirometry, may use home CPAP for SARAH 5. Endo: pmh DM, c/u Levemir and ISS, pre-meal standing coverage added today and evening Levemir increased 6. Vasc: pmh RUE DVT, s/p Lovenox bridge c/u Coumadin, monitor daily INRs -left BKA, wound healing well, CRP trending down 7. : monitor PVRs 8. GI ppx: omeprazole 9. Pain: oxycodone, c/u Elavil at 50mg qHS, and Tylenol -c/u Gabapentin 300mg TID -lidoderm patch to left shoulder and kinesiotape -menthol salicylate to right knee for suspected osteoarthritis - therapy to incorporate a back program into his minutes 10. DVT ppx: s/p Lovenox bridge, c/u warfarin 11. Skin: BID dressing changes 12. Hyperkalemia- s/p Kayexalate, improving 12. Dispo: Patient currently does not have safe dispo, awaiting housing from [facility], one obtained we are required to do a home eval- patient has met all of his short-term goals for mobility and at this time is declining ambulation on his right leg due to pain- last day of IRF level of skilled therapy today Allergies Coded Allergies: povidone-iodine (Verified Allergy, Unknown, 08/18/18) soap (Verified Allergy, Unknown, 08/18/18) Vital Signs Vital Signs Date Time Temp Pulse Resp B/P (MAP) Pulse Ox O2 Delivery O2 Flow Rate FiO2 12/02/18 14:00 97.8 89 18 146/71 (96) 96 Laboratory Data Labs 24H Laboratory Tests 2 12/01/18 16:23: Bedside Glucose (Misc Panel) 276H 12/01/18 20:16: Bedside Glucose (Misc Panel) 317H 12/02/18 05:58: Prothrombin Time 24.6H, Prothromb Time International Ratio 2.24 12/02/18 06:12: Bedside Glucose (Misc Panel) 310H 12/02/18 11:41: Bedside Glucose (Misc Panel) 203H Current Medications Current Medications Current Medications Acetaminophen (Tylenol Tab) 1,000 mg TID PO Last administered on 12/02/18 08:35; Start 11/16/18 at 21:00 Amitriptyline HCl (Elavil) 25 mg QHS PO Last administered on 11/16/18 20:34; Start 11/16/18 at 21:00; Stop 11/17/18 at 14:27; Status DC Amitriptyline HCl (Elavil) 50 mg QHS PO Last administered on 11/18/18 21:38; Start 11/17/18 at 21:00; Stop 11/19/18 at 09:55; Status DC Amitriptyline HCl (Elavil) 50 mg QHS PO Last administered on 12/01/18 21:50; Start 11/19/18 at 21:00 Amlodipine Besylate (Norvasc) 5 mg BID PO Last administered on 11/17/18 08:16; Start 11/16/18 at 21:00; Stop 11/17/18 at 14:27; Status DC Apixaban (Eliquis) 5 mg BID PO ; Start 11/19/18 at 21:00; Stop 11/19/18 at 21:00; Status DC Aspirin (Aspirin Chewable) 81 mg DAILY PO Last administered on 12/02/18 08:35; Start 11/17/18 at 09:00 Atorvastatin Calcium (Lipitor) 10 mg QHS PO Last administered on 12/01/18 21:50; Start 11/16/18 at 21:00 Bisacodyl (Dulcolax Suppository) 10 mg DAILYPRN PRN [place] CONSTIPATION; Start 11/16/18 at 18:45 Bupropion HCl (Wellbutrin Xl) 150 mg DAILY PO Last administered on 12/02/18 08:33; Start 11/17/18 at 09:00 Calcium Carbonate (Tums) 1,000 mg Q4HP PRN PO HEARTBURN; Start 11/16/18 at 18:45 Carvedilol (COReg) 25 mg BID PO Last administered on 12/02/18 08:33; Start 11/16/18 at 21:00 Cetirizine HCl (ZyrTEC) 5 mg QHS PO Last administered on 12/01/18 21:50; Start 11/16/18 at 21:00 Dextrose (Dextrose 50%) 25 ml ASDIRECTED PRN IV SEE LABEL COMMENTS; Start 11/16/18 at 18:45 Docusate Sodium (Colace) 100 mg BID PO Last administered on 11/21/18at 20:51; Start 11/16/18 at 21:00 Enalapril Maleate (Vasotec) 10 mg BID PO ; Start 11/22/18 at 21:00; Stop 11/22/18 at 21:00; Status DC Enalapril Maleate (Vasotec) 20 mg BID PO Last administered on 11/22/18at 08:55; Start 11/16/18 at 21:00; Stop 11/22/18 at 10:07; Status DC Enoxaparin Sodium (Lovenox) 150 mg Q12H SC Last administered on 11/24/18at 08:22; Start 11/16/18 at 21:00; Stop 11/24/18 at 10:26; Status DC Gabapentin (Neurontin) 300 mg TID PO Last administered on 12/02/18at 08:34; Start 11/18/18 at 21:00 Glucagon (Glucagon) 1 mg ASDIRECTED PRN SC SEE LABEL COMMENTS; Start 11/16/18 at 18:45 Glucose (Glucose) 16 GM ASDIRECTED PRN PO SEE LABEL COMMENTS; Start 11/16/18 at 18:45 Home Med (Med Rec Complete!) ASDIRECTED XX ; Start 11/16/18 at 16:00; Stop 11/16/18 at 16:00; Status DC Insulin Detemir (Levemir Insulin) 10 units DAILY SC Last administered on 12/01/18at 11:01; Start 12/01/18 at 09:00; Stop 12/01/18 at 12:31; Status DC Insulin Detemir (Levemir Insulin) 10 units QHS SC Last administered on 11/17/18at 21:09; Start 11/16/18 at 21:00; Stop 11/18/18 at 09:52; Status DC Insulin Detemir (Levemir Insulin) 15 units QHS SC Last administered on 11/23/18at 21:53; Start 11/18/18 at 21:00; Stop 11/24/18 at 10:26; Status DC Insulin Detemir (Levemir Insulin) 20 units QHS SC Last administered on 11/29/18 21:11; Start 11/24/18 at 21:00; Stop 11/30/18 at 11:00; Status DC Insulin Detemir (Levemir Insulin) 30 units QHS SC Last administered on 11/30/18 21:55; Start 11/30/18 at 21:00; Stop 12/01/18 at 12:31; Status DC Insulin Detemir (Levemir Insulin) 40 units QHS SC Last administered on 12/01/18 21:49; Start 12/01/18 at 21:00; Stop 12/02/18 at 10:06; Status DC Insulin Detemir (Levemir Insulin) 68 units QHS SC ; Start 12/02/18 at 21:00 Insulin Human Lispro (HumaLOG INSULIN) 7 units AC SC Last administered on 12/02/18 12:27; Start 12/01/18 at 17:30 Insulin Human Lispro (HumaLOG INSULIN) SEE PROTOCOL TABLE AC SC Last administered on 12/02/18 12:27; Start 11/17/18 at 07:30 Insulin Human Lispro (HumaLOG INSULIN) SEE PROTOCOL TABLE QHS SC Last administered on 12/01/18 21:49; Start 11/16/18 at 21:00 Isosorbide Mononitrate (Imdur) 30 mg DAILY PO Last administered on 12/02/18 08:36; Start 11/19/18 at 11:00 Lidocaine (Lidoderm Patch) 1 patch DAILY TD Last administered on 12/02/18 08:37; Start 11/23/18 at 09:00 Magnesium Hydroxide (Milk Of Magnesia) 30 ml DAILYPRN PRN PO CONSTIPATION; Start 11/16/18 at 18:45 Menthol/Methyl Salicylate (Bengay Cream) right knee BID TOP Last administered on 12/02/18 08:37; Start 11/23/18 at 21:00 Nifedipine (Procardia Xl) 90 mg DAILY PO Last administered on 12/02/18 08:35; Start 11/17/18 at 09:00 Non-Formulary Medication ( See Comment Field Below ) DAILY@21 XX Last administered on 12/01/18 21:51; Start 11/22/18 at 21:00 Non-Formulary Medication ( See Comment Field Below ) REMOVE LIDODERM PATCH DAILY@0415 XX ; Start 11/23/18 at 04:15; Stop 11/23/18 at 04:15; Status DC Omeprazole (PriLOSEC) 40 mg DAILY PO Last administered on 12/02/18at 08:33; Start 11/17/18 at 09:00 Ondansetron HCl (Zofran) 4 mg Q6HP PRN PO NAUSEA; Start 11/16/18 at 18:45 Oxycodone HCl (Roxicodone, Oxyir) 5 mg Q4HP PRN PO PAIN Last administered on 11/27/18 12:45; Start 11/27/18 at 12:00; Stop 11/29/18 at 08:50; Status DC Oxycodone HCl (Roxicodone, Oxyir) 5 mg Q6HP PRN PO PAIN Last administered on 12/02/18at 08:34; Start 11/29/18 at 12:45 Oxycodone HCl (Roxicodone, Oxyir) 10 mg Q4HP PRN PO SEVERE PAIN (PS 8-10) Last administered on 11/26/18at 12:45; Start 11/16/18 at 17:45; Stop 11/27/18 at 11:57; Status DC Senna (Senokot) 1 tab QHS PO Last administered on 11/28/18at 21:55; Start 11/16 at 21:00 Warfarin Sodium (Coumadin) 10 mg DAILY@1700 PO Last administered on 11/17/18at 16:19; Start 11/16/18 at 17:00; Stop 11/18/18 at 09:52; Status DC Warfarin Sodium (Coumadin) 15 mg DAILY@1700 PO Last administered on 11/21/18 16:46; Start 11/18/18 at 17:00; Stop 11/22/18 at 07:26; Status DC Warfarin Sodium (Coumadin) 17.5 mg DAILY@1700 PO Last administered on 12/01/18at 16:29; Start 11/22/18 at 17:00 KEVIN GODOY MD Dec 02, 2018 14:43
[2018-12-02] MEDS: WARFARIN SOD 5 MG TAB PO SCH (16:39)
[2018-12-02] MEDS: SENNA 8.6 MG TAB (SENOKOT) PO SCH (21:00)
[2018-12-02] MEDS: LEVEMIR (INSULIN DETEMIR) 1 UNITS/0.01ML SC SCH (21:26)
[2018-12-02] MEDS: ATORVASTATIN 10 MG TAB PO SCH (21:26)
[2018-12-02] MEDS: CETIRIZINE (ZyrTEC) 10 MG TAB PO SCH (21:26)
[2018-12-02] MEDS: AMITRIPTYLINE 50 MG TAB PO SCH (21:28)
[2018-12-02] MEDS: **NOTE PATIENT COMMENT** MISC XX SCH (21:29)
[2018-12-02 22:00] VITALS: BP 141/80
[2018-12-03 06:00] VITALS: BP 156/87
[2018-12-03 07:08] LABS: HEMATOCRIT 42.4 % (42.0-52.0); HEMOGLOBIN 12.9 g/dl (13.5-17.5); MEAN CORPUSCULAR HEMOGLOBIN 23.2 pg (27.0-33.0); MEAN CORPUSCULAR HGB CONC 30.4 g/dl (32.0-36.5); MEAN CORPUSCULAR VOLUME 76.1 fl (80.0-96.0); PLATELET COUNT, AUTOMATED 485 10^3/uL (150-450); RED BLOOD COUNT 5.57 10^6/uL (4.30-6.10); WHITE BLOOD COUNT 8.1 10^3/uL (4.0-10.0)
[2018-12-03 07:26] LABS: INR 2.3; PROTHROMBIN TIME 25.1 SECONDS (11.8-14.0)
[2018-12-03 07:31] LABS: ALBUMIN 3.3 GM/DL (3.2-5.2); BILIRUBIN,TOTAL 0.3 MG/DL (0.2-1.0); CALCIUM LEVEL 9.5 MG/DL (8.5-10.1); CREATININE FOR GFR 1.72 MG/DL (0.70-1.30); GLOMERULAR FILTRATION RATE 43.7 (>56); POTASSIUM SERUM 4.5 MEQ/L (3.5-5.1); TOTAL PROTEIN 6.6 GM/DL (6.4-8.2)
[2018-12-03] MEDS: HumaLOG INSULIN (NovoLOG) PER UNIT SC SCH ×7 (08:35→21:13)
[2018-12-03] MEDS: oxyCODONE 5MG TAB PO PRN ×2 (08:36→21:12)
[2018-12-03] MEDS: GABAPENTIN 300 MG CAP PO SCH ×3 (08:36→21:10)
[2018-12-03] MEDS: CARVedilol 12.5 MG TAB PO SCH ×2 (08:36→21:10)
[2018-12-03] MEDS: ASPIRIN 81 MG CHEW TABLET PO SCH (08:36)
[2018-12-03] MEDS: OMEPRAZOLE 20 MG CAP PO SCH (08:36)
[2018-12-03] MEDS: ACETAMINOPHEN 500 MG TAB PO SCH ×3 (08:37→21:14)
[2018-12-03] MEDS: buPROPion **XL** TABLET 150MG (WELLBUTRIN XL) PO SCH (08:37)
[2018-12-03] MEDS: NIFEdipine 30 MG XL TAB PO SCH (08:37)
[2018-12-03] MEDS: ISOSORBIDE MON. (IMDUR) 30 MG XR TAB PO SCH (08:38)
[2018-12-03] MEDS: ANALGESIC BALM CRM 120 GM TOP SCH ×2 (08:38→21:00)
[2018-12-03] MEDS: DOCUSATE SODIUM 100 MG CAP PO SCH ×2 (08:38→21:00)
[2018-12-03] MEDS: LIDOCAINE 5% (LIDODERM) PATCH TD SCH (08:38)
--- NOTE | 2018-12-03 09:20 | IPNPDOC ---
Text Note Date of Service The patient was seen on 12/03/18. NOTE Subjective: Complains of swollen lymph nodes and tenderness to bilateral inguinal area. denies chest pain, SOB. Objective: GENERAL: NAD SKIN : Warm, dry intact HEENT: Atraumatic, normocephalic, PERRL, moist mucous membrane CARDIOVASCULAR: Regular rate and rhythm, S1S2, no JVD, right distal pulses not palpable RESP: CTAB, no accessory muscle use noted ABDOMEN: BS+ non distended non tender MS: Left BKA NEURO: Alert and oriented x 3, CN2-12 grossly intact PSYCH: no anxiety or agitation, appropriate mood and affect. Assessment and plan Left heel cellulitis -which progressed to nonhealing ulcer, in a patient with poorly controlled diabetes -s/p left BKA on 11/06 by Vascular Surgery -Rehabilitation per primary team Swollen Lymph nodes -CT pelvis without contrast to evaluate further -lymph nodes not palpable due to habitus -follow CT findings Diabetes mellitus -insulin dose was increased to 68U at HS with improvement of blood glucose this am -continue with basal bolus therapy -fingerstick checks with meals and coverage with sliding scale insulin DVT right upper extremity -continue Coumadin - INR 2.3 this am Hypertension -improving -continue Coreg, Imdur, Nifedipine -continue to adjust doses and target SBP<140mmHg Obstructive sleep apnea - CPAP at bedtime DVT Prophylaxis -fully anticoagulated with Coumadin VS,Fishbone, I+O VS, Fishbone, I+O Laboratory Tests 12/03/18 06:46 Red Blood Count 5.57, Mean Corpuscular Volume 76.1 L, Mean Corpuscular Hemoglobin 23.2 L, Mean Corpuscular Hemoglobin Concent 30.4 L, Red Cell Distribution Width 17.7 H, Calcium Level 9.5, Aspartate Amino Transf (AST/SGOT) 12, Alanine Aminotransferase (ALT/SGPT) 15, Alkaline Phosphatase 95, Total Bilirubin 0.3, Total Protein 6.6, Albumin 3.3 Vital Signs Date Time Temp Pulse Resp B/P (MAP) Pulse Ox O2 Delivery O2 Flow Rate FiO2 12/03/18 08:36 18 12/03/18 08:36 76 156/87 12/03/18 06:00 98.4 96 I&O- Last 24 Hours up to 6 AM 12/03/18 06:00 Intake Total 2860 ml Output Total 3900 ml Balance -1040 ml TEDDY CHILEL [facility] Dec 03, 2018 09:20
--- NOTE | 2018-12-03 11:10 | IPNPDOC ---
PM&R Progress Note DATE OF SERVICE: Dec 03, 2018 Sales Ledger Clerk Progress Note Subjective: Patient seen wheeling himself around the dwyer stating he has noticed swelling in his groin. He denies fevers or chills. REVIEW OF SYSTEMS: The following is a completed review of systems and has been reviewed. Review of systems otherwise unremarkable. PAIN: Patient self reports left residual limb pain EYES: no recent vision changes EARS, NOSE, & THROAT: denies dysphagia, no rhinorrhea CARDIOVASCULAR: denies chest pain/palpitations PULMONARY: Negative. Denies shortness of breath GASTROINTESTINAL: no diarrhea/constipation GENITOURINARY: no dysuria MUSCULOSKELETAL: left BKA, chronic low back pain HEMATOLOGICAL: Negative SKIN: left residual limb incision PSYCHIATRIC: Unremarkable All other review of systems found to be negative. PHYSICAL EXAMINATION: VITAL SIGNS: Please see below. GENERAL: Pleasant and cooperative. No acute distress. HEENT: PERRL. Extraocular movements intact. Clear conjunctiva CARDIOVASCULAR: Regular rate and rhythm. No murmurs, rubs, or gallops LUNGS: Clear to auscultation bilaterally. No wheezes. No rhonchi ABDOMEN: Soft, nontender, nondistended. Positive bowel sounds. Normal active bowel sounds NEUROLOGICAL: Alert and oriented times three. Cranial nerves II through XII grossly intact. Sensation grossly intact except diminished in LLE and distal RLE EXTREMITIES: 5\5 strength bilateral upper extremities. 5-\5 strength right lower extremity. 5-/5 strength in left hip flexors and knee flexors left shoulder exam- + Neers, +painful arc right knee- incision healed, no warmth/swelling, ROM functional, palpable click with extension SKIN: left residual limb incision c/d/i without induration, mild erythema ASSESSMENT:58-year-old M with past medical history of HTN, DM, chronic wound who presents status post left BKA. PLAN: 1. Rehab: PT, OT, assess for DME needs-room privileges from wheelchair level -goal is to stretch and strengthen his residual limb, prevent knee/hip flexion contractures, utilize desensitization techniques, strengthen core and upper body strength for safe and effective wheelchair propulsion -mod-I for wheelchair propulsions and ADLs, will need to work on fall recovery, car transfers, and kitchen tasks 2. Neuro: peripheral neuropathy- c/u tight glycemic control 3. Cardio: pmh HTN and HLD, c/u amlodipine, Carvedilol, Enalapril, and nifedipine- ASA and statin, medicine consulted to assist in management 4. Resp: encourage incentive spirometry, may use home CPAP for SARAH 5. Endo: pmh DM, c/u Levemir and ISS, c/u pre-meal standing coverage and increased evening Levemir increased 6. Vasc: pmh RUE DVT, s/p Lovenox bridge c/u Coumadin, monitor daily INRs -left BKA, wound healing well, CRP trending down 7. : monitor PVRs 8. GI ppx: omeprazole 9. Pain: oxycodone, c/u Elavil at 50mg qHS, and Tylenol -c/u Gabapentin 300mg TID -lidoderm patch to left shoulder and kinesiotape -menthol salicylate to right knee for suspected osteoarthritis - therapy to incorporate a back program into his minutes 10. DVT ppx: s/p Lovenox bridge, c/u warfarin 11. Skin: BID dressing changes 12. Hyperkalemia- s/p Kayexalate, improving 12. Dispo: Patient currently does not have safe dispo, awaiting housing from [facility], one obtained we are required to do a home eval- patient has met all of his short-term goals for mobility and at this time is declining ambulation on his right leg due to pain- no longer receiving IRF level of skilled therapy while waiting for [facility] to find appropriate housing for patient- patient currently refusing to go to hotel that [facility] provides Allergies Coded Allergies: povidone-iodine (Verified Allergy, Unknown, 08/18/18) soap (Verified Allergy, Unknown, 08/18/18) Vital Signs Vital Signs Date Time Temp Pulse Resp B/P (MAP) Pulse Ox O2 Delivery O2 Flow Rate FiO2 12/03/18 09:15 18 12/03/18 08:36 76 156/87 12/03/18 06:00 98.4 96 Laboratory Data CBC/BMP Laboratory Tests 12/03/18 06:46 Red Blood Count 5.57, Mean Corpuscular Volume 76.1 L, Mean Corpuscular Hemoglobin 23.2 L, Mean Corpuscular Hemoglobin Concent 30.4 L, Red Cell Distribution Width 17.7 H, Calcium Level 9.5, Aspartate Amino Transf (AST/SGOT) 12, Alanine Aminotransferase (ALT/SGPT) 15, Alkaline Phosphatase 95, Total Bilirubin 0.3, Total Protein 6.6, Albumin 3.3 Labs 24H Laboratory Tests 2 12/02/18 11:41: Bedside Glucose (Misc Panel) 203H 12/02/18 16:30: Bedside Glucose (Misc Panel) 292H 12/02/18 19:42: Bedside Glucose (Misc Panel) 194H 12/03/18 05:24: Bedside Glucose (Misc Panel) 309H 12/03/18 06:46: Nucleated Red Blood Cells % (auto) 0.0, Prothrombin Time 25.1H, Prothromb Time International Ratio 2.30, Anion Gap 4L, Glomerular Filtration Rate 43.7L, Blood Urea Nitrogen 35H, Creatinine 1.72H, Sodium Level 138, Potassium Level 4.5, Chloride Level 109H, Carbon Dioxide Level 25, Calcium Level 9.5, Aspartate Amino Transf (AST/SGOT) 12, Alanine Aminotransferase (ALT/SGPT) 15, Alkaline Phosphatase 95, Total Bilirubin 0.3, Total Protein 6.6, Albumin 3.3, Albumin/Globulin Ratio 1.00 Current Medications Current Medications Current Medications Acetaminophen (Tylenol Tab) 1,000 mg TID PO Last administered on 12/03/18at 08:37; Start 11/16/18 at 21:00 Amitriptyline HCl (Elavil) 25 mg QHS PO Last administered on 11/16/18at 20:34; Start 11/16/18 at 21:00; Stop 11/17/18 at 14:27; Status DC Amitriptyline HCl (Elavil) 50 mg QHS PO Last administered on 11/18/18at 21:38; Start 11/17/18 at 21:00; Stop 11/19/18 at 09:55; Status DC Amitriptyline HCl (Elavil) 50 mg QHS PO Last administered on 12/02/18at 21:28; Start 11/19/18 at 21:00 Amlodipine Besylate (Norvasc) 5 mg BID PO Last administered on 11/17/18at 08:16; Start 11/16/18 at 21:00; Stop 11/17/18 at 14:27; Status DC Apixaban (Eliquis) 5 mg BID PO ; Start 11/19/18 at 21:00; Stop 11/19/18 at 21:00; Status DC Aspirin (Aspirin Chewable) 81 mg DAILY PO Last administered on 12/03/18 08:36; Start 11/17/18 at 09:00 Atorvastatin Calcium (Lipitor) 10 mg QHS PO Last administered on 12/02/18 21:26; Start 11/16/18 at 21:00 Bisacodyl (Dulcolax Suppository) 10 mg DAILYPRN PRN [place] CONSTIPATION; Start 11/16/18 at 18:45 Bupropion HCl (Wellbutrin Xl) 150 mg DAILY PO Last administered on 12/03/18 08:37; Start 11/17/18 at 09:00 Calcium Carbonate (Tums) 1,000 mg Q4HP PRN PO HEARTBURN; Start 11/16/18 at 18:45 Carvedilol (COReg) 25 mg BID PO Last administered on 12/03/18 08:36; Start 11/16/18 at 21:00 Cetirizine HCl (ZyrTEC) 5 mg QHS PO Last administered on 12/02/18 21:26; Start 11/16/18 at 21:00 Dextrose (Dextrose 50%) 25 ml ASDIRECTED PRN IV SEE LABEL COMMENTS; Start 11/16/18 at 18:45 Docusate Sodium (Colace) 100 mg BID PO Last administered on 11/21/18at 20:51; Start 11/16/18 at 21:00 Enalapril Maleate (Vasotec) 10 mg BID PO ; Start 11/22/18 at 21:00; Stop 11/22/18 at 21:00; Status DC Enalapril Maleate (Vasotec) 20 mg BID PO Last administered on 11/22/18 08:55; Start 11/16/18 at 21:00; Stop 11/22/18 at 10:07; Status DC Enoxaparin Sodium (Lovenox) 150 mg Q12H SC Last administered on 11/24/18 08:22; Start 11/16/18 at 21:00; Stop 11/24/18 at 10:26; Status DC Gabapentin (Neurontin) 300 mg TID PO Last administered on 12/03/18 08:36; Start 11/18/18 at 21:00 Glucagon (Glucagon) 1 mg ASDIRECTED PRN SC SEE LABEL COMMENTS; Start 11/16/18 at 18:45 Glucose (Glucose) 16 GM ASDIRECTED PRN PO SEE LABEL COMMENTS; Start 11/16/18 at 18:45 Home Med (Med Rec Complete!) ASDIRECTED XX ; Start 11/16/18 at 16:00; Stop 11/16/18 at 16:00; Status DC Insulin Detemir (Levemir Insulin) 10 units DAILY SC Last administered on 12/01/18at 11:01; Start 12/01/18 at 09:00; Stop 12/01/18 at 12:31; Status DC Insulin Detemir (Levemir Insulin) 10 units QHS SC Last administered on 11/17/18at 21:09; Start 11/16/18 at 21:00; Stop 11/18/18 at 09:52; Status DC Insulin Detemir (Levemir Insulin) 15 units QHS SC Last administered on 11/23/18at 21:53; Start 11/18/18 at 21:00; Stop 11/24/18 at 10:26; Status DC Insulin Detemir (Levemir Insulin) 20 units QHS SC Last administered on 11/29/18at 21:11; Start 11/24/18 at 21:00; Stop 11/30/18 at 11:00; Status DC Insulin Detemir (Levemir Insulin) 30 units QHS SC Last administered on 11/30/18at 21:55; Start 11/30/18 at 21:00; Stop 12/01/18 at 12:31; Status DC Insulin Detemir (Levemir Insulin) 40 units QHS SC Last administered on 12/01/18at 21:49; Start 12/01/18 at 21:00; Stop 12/02/18 at 10:06; Status DC Insulin Detemir (Levemir Insulin) 68 units QHS SC Last administered on 12/02/18at 21:26; Start 12/02/18 at 21:00 Insulin Human Lispro (HumaLOG INSULIN) 7 units AC SC Last administered on 12/03/18at 08:35; Start 12/01/18 at 17:30 Insulin Human Lispro (HumaLOG INSULIN) SEE PROTOCOL TABLE AC SC Last administered on 12/03/18at 08:35; Start 11/17/18 at 07:30 Insulin Human Lispro (HumaLOG INSULIN) SEE PROTOCOL TABLE QHS SC Last administered on 12/01/18 21:49; Start 11/16/18 at 21:00 Isosorbide Mononitrate (Imdur) 30 mg DAILY PO Last administered on 12/03/18 08:38; Start 11/19/18 at 11:00 Lidocaine (Lidoderm Patch) 1 patch DAILY TD Last administered on 12/03/18 08:38; Start 11/23/18 at 09:00 Magnesium Hydroxide (Milk Of Magnesia) 30 ml DAILYPRN PRN PO CONSTIPATION; Start 11/16/18 at 18:45 Menthol/Methyl Salicylate (Bengay Cream) right knee BID TOP Last administered on 12/02/18 21:29; Start 11/23/18 at 21:00 Nifedipine (Procardia Xl) 90 mg DAILY PO Last administered on 12/03/18 08:37; Start 11/17/18 at 09:00 Non-Formulary Medication ( See Comment Field Below ) DAILY@21 XX Last administered on 12/02/18 21:29; Start 11/22/18 at 21:00 Non-Formulary Medication ( See Comment Field Below ) REMOVE LIDODERM PATCH DAILY@0415 XX ; Start 11/23/18 at 04:15; Stop 11/23/18 at 04:15; Status DC Omeprazole (PriLOSEC) 40 mg DAILY PO Last administered on 12/03/18 08:36; Start 11/17/18 at 09:00 Ondansetron HCl (Zofran) 4 mg Q6HP PRN PO NAUSEA; Start 11/16/18 at 18:45 Oxycodone HCl (Roxicodone, Oxyir) 5 mg Q4HP PRN PO PAIN Last administered on 11/27/18 12:45; Start 11/27/18 at 12:00; Stop 11/29/18 at 08:50; Status DC Oxycodone HCl (Roxicodone, Oxyir) 5 mg Q6HP PRN PO PAIN Last administered on 12/03/18at 08:36; Start 11/29/18 at 12:45 Oxycodone HCl (Roxicodone, Oxyir) 10 mg Q4HP PRN PO SEVERE PAIN (PS 8-10) Last administered on 11/26/18 12:45; Start 11/16/18 at 17:45; Stop 11/27/18 at 11:57; Status DC Senna (Senokot) 1 tab QHS PO Last administered on 11/28/18at 21:55; Start 11/16/18 at 21:00 Warfarin Sodium (Coumadin) 10 mg DAILY@1700 PO Last administered on 11/17/18at 16:19; Start 11/16/18 at 17:00; Stop 11/18/18 at 09:52; Status DC Warfarin Sodium (Coumadin) 15 mg DAILY@1700 PO Last administered on 11/21/18at 16:46; Start 11/18/18 at 17:00; Stop 11/22/18 at 07:26; Status DC Warfarin Sodium (Coumadin) 17.5 mg DAILY@1700 PO Last administered on 12/02/18at 16:39; Start 11/22/18 at 17:00 KEVIN GODOY MD Dec 03, 2018 11:10
--- NOTE | 2018-12-03 11:40 | REP ---
CT ABDOMEN AND PELVIS WITHOUT IV OR ORAL CONTRAST: HISTORY: Lymphadenopathy. Comparison CT study is from August 27, 2017. There is also a CT study from December 16, 2009. CT FINDINGS: There is no evidence of pleural effusion or upper abdominal ascites. The liver is normal in size homogeneous in texture. The spleen is moderately enlarged measuring up to 20.9 cm in greatest anteroposterior dimension. No focal splenic lesion is seen. There is stable mild nodular thickening of the left adrenal gland. The right adrenal gland is normal. No pancreatic lesion is seen. Gallbladder is unremarkable. Small and large bowel loops are normal in the abdomen and pelvis. There are scattered normal-sized periaortic lymph nodes in the upper abdomen retroperitoneally. There is hypertrophy of lymph nodes in the left external and internal iliac lymph node chain. There are two left external iliac lymph nodes which are enlarged. These measure 2.8 x 1.7 x 2.1 cm and 2.6 x 2.2 x 1.8 cm. There are multiple hypertrophied enlarged lymph nodes in the left inguinal soft tissues. The largest left inguinal lymph node measures 2.7 x 2.2 x 4.9 cm. Urinary bladder, seminal vesicles and prostate are unremarkable. Kidneys show no evidence of hydronephrosis. There appears to be a small cyst in the right kidney upper pole. No mass lesion is appreciated. No abdominal wall defect is seen. There is old mild wedge compression deformity at T12. Degenerative spondylosis changes are seen in the spine. IMPRESSION: There is mild pelvic and left inguinal lymphadenopathy as above. Consider histologic analysis left inguinal lymph node which is the largest lymph node seen. Electronically Signed by Wolf Chris MD 12/03/2018 12:39 P
[2018-12-03] MEDS: WARFARIN SOD 5 MG TAB PO SCH (17:20)
[2018-12-03] MEDS: AMITRIPTYLINE 50 MG TAB PO SCH (21:10)
[2018-12-03] MEDS: ATORVASTATIN 10 MG TAB PO SCH (21:10)
[2018-12-03] MEDS: SENNA 8.6 MG TAB (SENOKOT) PO SCH (21:10)
[2018-12-03] MEDS: CETIRIZINE (ZyrTEC) 10 MG TAB PO SCH (21:11)
[2018-12-03] MEDS: LEVEMIR (INSULIN DETEMIR) 1 UNITS/0.01ML SC SCH (21:12)
[2018-12-03] MEDS: **NOTE PATIENT COMMENT** MISC XX SCH (21:14)
[2018-12-04] MEDS: oxyCODONE 5MG TAB PO PRN ×3 (05:21→18:35)
[2018-12-04 06:00] VITALS: BP 164/83
[2018-12-04 07:04] LABS: INR 2.4
[2018-12-04] MEDS: DOCUSATE SODIUM 100 MG CAP PO SCH ×3 (09:00→20:43)
[2018-12-04] MEDS: ANALGESIC BALM CRM 120 GM TOP SCH ×2 (09:00→20:46)
[2018-12-04] MEDS: HumaLOG INSULIN (NovoLOG) PER UNIT SC SCH ×7 (09:00→20:46)
[2018-12-04] MEDS: GABAPENTIN 300 MG CAP PO SCH ×3 (09:01→20:40)
[2018-12-04] MEDS: OMEPRAZOLE 20 MG CAP PO SCH (09:02)
[2018-12-04] MEDS: LIDOCAINE 5% (LIDODERM) PATCH TD SCH (09:03)
[2018-12-04] MEDS: ACETAMINOPHEN 500 MG TAB PO SCH ×3 (09:03→20:44)
[2018-12-04] MEDS: ASPIRIN 81 MG CHEW TABLET PO SCH (09:03)
[2018-12-04] MEDS: buPROPion **XL** TABLET 150MG (WELLBUTRIN XL) PO SCH (09:03)
[2018-12-04] MEDS: CARVedilol 12.5 MG TAB PO SCH ×2 (09:04→20:43)
[2018-12-04] MEDS: NIFEdipine 30 MG XL TAB PO SCH (09:04)
[2018-12-04] MEDS: ISOSORBIDE MON. (IMDUR) 30 MG XR TAB PO SCH (09:04)
[2018-12-04 14:00] VITALS: BP 168/90
--- NOTE | 2018-12-04 14:05 | IPNPDOC ---
Date Seen The patient was seen on 12/04/18. Progress Note SUBJECTIVE: Patient complains of a canker sore in his mouth today otherwise patient denies chest pain, shortness breath, nausea, vomiting, fevers, chills. His pain is left inguinal region is unchanged OBJECTIVE PHYSICAL EXAMINATION: VITAL SIGNS: Please see below. GENERAL: Pleasant obese elderly appearing man sitting in his wheelchair awake alert oriented speaking in complete sentences no acute distress, he is malodorous HEENT: Moist mucous membranes no elevation in CVP CARDIOVASCULAR: S1 S2 regular no additional heart sounds appreciated. RESPIRATORY: Clear to auscultation bilaterally. ABDOMINAL: Bowel sounds present abdomen soft and nontender grossly obese EXTREMITIES: No clubbing cyanosis or edema status post BKA on the left, some tender left inguinal nodes are palpable NEUROLOGICAL: Spontaneously moves all 4 extremities cranial 2 through 12 grossly intact no gross focal deficits appreciated PSYCHOLOGICAL: Appropriate LABORATORY DATA, MICROBIOLOGY: Please see below. IMAGING STUDIES: CT scan abdomen and pelvis:There is mild pelvic and left inguinal lymphadenopathy as above. Consider histologic analysis left inguinal lymph node which is the largest lymph node seen. ASSESSMENT AND PLAN: This is a 58-year-old man with tender left inguinal nodes. PROBLEMS: 1. Tender left inguinal nodes: Given his recent surgery. Propensity for infection I suspect these may be reactive lymphadenopathy is as they are his left inguinal region. For the time being I would recommend observation or possib ly further discussion with vascular surgery prior to any biopsy requisitions being sent. 2. Canker sore: We'll provide patient with benzocaine gel. 3. Uncontrolled diabetes: His a.m. fasting glucose has been persistently elevate d I will increase his daily at bedtime dosing it may require further titration and monitoring. 4. Right Extremity DVT: Continue with Coumadin therapeutic. 5. Hypertension: Continue with Coreg Imdur nifedipine 6. Obstructive sleep apnea: Continue with CPAP while sleeping DVT prophylaxis: Coumadin DISPOSITION: As per physiatry . VS, I&O, 24H, Fishbone Vital Signs/I&O Vital Signs Date Time Temp Pulse Resp B/P (MAP) Pulse Ox O2 Delivery O2 Flow Rate FiO2 12/04/18 13:00 18 12/04/18 09:04 174/83 12/04/18 09:04 81 12/04/18 06:00 98.5 95 I&O- Last 24 Hours up to 6 AM 12/04/18 06:00 Intake Total 660 ml Output Total 1500 ml Balance -840 ml Laboratory Data 24H LABS Laboratory Tests 2 12/03/18 16:41: Bedside Glucose (Misc Panel) 293H 12/03/18 20:36: Bedside Glucose (Misc Panel) 296H 12/04/18 06:14: Bedside Glucose (Misc Panel) 344H 12/04/18 06:32: Prothrombin Time 26.0H, Prothromb Time International Ratio 2.40 12/04/18 11:28: Bedside Glucose (Misc Panel) 219H SUE JENSEN MD Dec 04, 2018 14:05
[2018-12-04] MEDS: BENZOCAINE 10% 9GM TUBE (ANBESOL) MT SCH ×2 (16:50→20:40)
[2018-12-04] MEDS: WARFARIN SOD 5 MG TAB PO SCH (16:50)
[2018-12-04 19:49] VITALS: BP_SYST 168; BP_SYST 173; BP_DIAS 82; BP_DIAS 88; BP_DIAS 90
[2018-12-04] MEDS: CETIRIZINE (ZyrTEC) 10 MG TAB PO SCH (20:41)
[2018-12-04] MEDS: ATORVASTATIN 10 MG TAB PO SCH (20:42)
[2018-12-04] MEDS: SENNA 8.6 MG TAB (SENOKOT) PO SCH (20:42)
[2018-12-04] MEDS: AMITRIPTYLINE 50 MG TAB PO SCH (20:42)
[2018-12-04] MEDS: LEVEMIR (INSULIN DETEMIR) 1 UNITS/0.01ML SC SCH (20:46)
[2018-12-04] MEDS: **NOTE PATIENT COMMENT** MISC XX SCH (20:47)
[2018-12-05] MEDS: oxyCODONE 5MG TAB PO PRN ×3 (04:46→18:21)
[2018-12-05 04:54] VITALS: BP 157/88
[2018-12-05 08:05] LABS: INR 2.58; PROTHROMBIN TIME 27.5 SECONDS (11.8-14.0)
[2018-12-05] MEDS: HumaLOG INSULIN (NovoLOG) PER UNIT SC SCH ×7 (08:31→21:36)
[2018-12-05] MEDS: GABAPENTIN 300 MG CAP PO SCH ×3 (08:31→21:37)
[2018-12-05] MEDS: LIDOCAINE 5% (LIDODERM) PATCH TD SCH (08:31)
[2018-12-05] MEDS: ASPIRIN 81 MG CHEW TABLET PO SCH (08:32)
[2018-12-05] MEDS: NIFEdipine 30 MG XL TAB PO SCH (08:32)
[2018-12-05] MEDS: buPROPion **XL** TABLET 150MG (WELLBUTRIN XL) PO SCH (08:33)
[2018-12-05] MEDS: OMEPRAZOLE 20 MG CAP PO SCH (08:33)
[2018-12-05] MEDS: ISOSORBIDE MON. (IMDUR) 30 MG XR TAB PO SCH (08:33)
[2018-12-05] MEDS: ACETAMINOPHEN 500 MG TAB PO SCH ×3 (08:33→21:37)
[2018-12-05] MEDS: CARVedilol 12.5 MG TAB PO SCH ×2 (08:33→21:37)
[2018-12-05] MEDS: BENZOCAINE 10% 9GM TUBE (ANBESOL) MT SCH ×3 (08:34→21:40)
[2018-12-05] MEDS: ANALGESIC BALM CRM 120 GM TOP SCH ×2 (09:00→21:37)
[2018-12-05] MEDS: DOCUSATE SODIUM 100 MG CAP PO SCH ×2 (09:00→21:37)
[2018-12-05 14:00] VITALS: BP 148/76
[2018-12-05] MEDS: WARFARIN SOD 5 MG TAB PO SCH (17:44)
[2018-12-05 20:00] VITALS: BP 160/80
[2018-12-05] MEDS: SENNA 8.6 MG TAB (SENOKOT) PO SCH (21:00)
[2018-12-05] MEDS: LEVEMIR (INSULIN DETEMIR) 1 UNITS/0.01ML SC SCH (21:36)
[2018-12-05] MEDS: CETIRIZINE (ZyrTEC) 10 MG TAB PO SCH (21:37)
[2018-12-05] MEDS: AMITRIPTYLINE 50 MG TAB PO SCH (21:37)
[2018-12-05] MEDS: ATORVASTATIN 10 MG TAB PO SCH (21:37)
[2018-12-05] MEDS: **NOTE PATIENT COMMENT** MISC XX SCH (21:38)
[2018-12-06] MEDS: oxyCODONE 5MG TAB PO PRN ×4 (00:22→23:04)
[2018-12-06 05:45] VITALS: BP 159/77
[2018-12-06 07:29] LABS: INR 2.42; PROTHROMBIN TIME 26.2 SECONDS (11.8-14.0)
[2018-12-06] MEDS: ANALGESIC BALM CRM 120 GM TOP SCH ×2 (09:00→21:00)
[2018-12-06] MEDS ORDERED: LEVEMIR (INSULIN DETEMIR) 1 UNITS/0.01ML SC SCH ×2 (09:00→21:00)
[2018-12-06] MEDS: DOCUSATE SODIUM 100 MG CAP PO SCH ×2 (09:00→21:00)
[2018-12-06] MEDS: HumaLOG INSULIN (NovoLOG) PER UNIT SC SCH ×7 (09:30→21:00)
[2018-12-06] MEDS: buPROPion **XL** TABLET 150MG (WELLBUTRIN XL) PO SCH (09:31)
[2018-12-06] MEDS: NIFEdipine 30 MG XL TAB PO SCH (09:31)
[2018-12-06] MEDS: OMEPRAZOLE 20 MG CAP PO SCH (09:31)
[2018-12-06] MEDS: ISOSORBIDE MON. (IMDUR) 30 MG XR TAB PO SCH (09:31)
[2018-12-06] MEDS: GABAPENTIN 300 MG CAP PO SCH ×3 (09:31→21:05)
[2018-12-06] MEDS: BENZOCAINE 10% 9GM TUBE (ANBESOL) MT SCH ×3 (09:32→21:07)
[2018-12-06] MEDS: CARVedilol 12.5 MG TAB PO SCH ×2 (09:32→21:06)
[2018-12-06] MEDS: ASPIRIN 81 MG CHEW TABLET PO SCH (09:32)
[2018-12-06] MEDS: LIDOCAINE 5% (LIDODERM) PATCH TD SCH (09:33)
[2018-12-06] MEDS: ACETAMINOPHEN 500 MG TAB PO SCH ×3 (09:34→21:06)
--- NOTE | 2018-12-06 10:05 | IPNPDOC ---
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 He has no complaints today. REVIEW OF SYSTEMS: The following is a completed review of systems and has been reviewed. Review of systems otherwise unremarkable. PAIN: Patient self reports left residual limb pain EYES: no recent vision changes EARS, NOSE, & THROAT: denies dysphagia, no rhinorrhea CARDIOVASCULAR: denies chest pain/palpitations PULMONARY: Negative. Denies shortness of breath GASTROINTESTINAL: no diarrhea/constipation GENITOURINARY: no dysuria MUSCULOSKELETAL: left BKA, chronic low back pain HEMATOLOGICAL: Negative SKIN: left residual limb incision PSYCHIATRIC: Unremarkable All other review of systems found to be negative. PHYSICAL EXAMINATION: VITAL SIGNS: Please see below. GENERAL: Pleasant and cooperative. No acute distress. HEENT: PERRL. Extraocular movements intact. Clear conjunctiva CARDIOVASCULAR: Regular rate and rhythm. No murmurs, rubs, or gallops LUNGS: Clear to auscultation bilaterally. No wheezes. No rhonchi ABDOMEN: Soft, nontender, nondistended. Positive bowel sounds. Normal active bowel sounds NEUROLOGICAL: Alert and oriented times three. Cranial nerves II through XII grossly intact. Sensation grossly intact except diminished in LLE and distal RLE EXTREMITIES: 5\5 strength bilateral upper extremities. 5-\5 strength right lower extremity. 5-/5 strength in left hip flexors and knee flexors left shoulder exam- + Neers, +painful arc right knee- incision healed, no warmth/swelling, ROM functional, palpable click with extension SKIN: left residual limb incision c/d/i without induration ASSESSMENT:58-year-old M with past medical history of HTN, DM, chronic wound who presents status post left BKA. PLAN: 1. Rehab: PT, OT, assess for DME needs-room privileges from wheelchair level -goal is to stretch and strengthen his residual limb, prevent knee/hip flexion contractures, utilize desensitization techniques, strengthen core and upper body strength for safe and effective wheelchair propulsion -mod-I for wheelchair propulsions and ADLs, will need to work on fall recovery, car transfers, and kitchen tasks- currently transitioned to outpatient 30- minutes a day program as IRF skilled therapy has been exhausted while awaiting safe housing 2. Neuro: peripheral neuropathy- c/u tight glycemic control 3. Cardio: pmh HTN and HLD, c/u amlodipine, Carvedilol, Enalapril, and nifedipin e- ASA and statin, medicine consulted to assist in management 4. Resp: encourage incentive spirometry, may use home CPAP for SARAH 5. Endo: pmh DM, c/u Levemir and ISS, c/u pre-meal standing coverage and increased evening Levemir increased 6. Vasc: pmh RUE DVT, s/p Lovenox bridge c/u Coumadin, monitor daily INRs -left BKA, wound healing well, CRP trending down 7. : monitor PVRs 8. GI ppx: omeprazole 9. Pain: oxycodone, c/u Elavil at 50mg qHS, and Tylenol -c/u Gabapentin 300mg TID -lidoderm patch to left shoulder and kinesiotape -menthol salicylate to right knee for suspected osteoarthritis - therapy to incorporate a back program into his minutes 10. DVT ppx: s/p Lovenox bridge, c/u warfarin 11. Skin: BID dressing changes- chace removed today per vascular surgeyr, sutures to be removed in 1 week (12/13/18) 12. Hyperkalemia- s/p Kayexalate, improving 12. Dispo: Patient currently does not have safe dispo, still awaiting housing from [facility], once obtained we are required to do a home eval- patient has met all of his short-term goals for mobility and at this time is declining ambulation on his right leg due to pain- no longer receiving IRF level of skilled therapy while waiting for [facility] to find appropriate housing for patient- patient currently refusing to go to hotel that [facility] provides, meeting with shoe parts caser and DSS set for later this week Allergies Coded Allergies: povidone-iodine (Verified Allergy, Unknown, 08/18/18) soap (Verified Allergy, Unknown, 08/18/18) Vital Signs Vital Signs Date Time Temp Pulse Resp B/P (MAP) Pulse Ox O2 Delivery O2 Flow Rate FiO2 12/06/18 09:31 159/77 12/06/18 06:57 18 12/06/18 05:45 97.5 75 97 Laboratory Data Labs 24H Laboratory Tests 2 12/05/18 11:25: Bedside Glucose (Misc Panel) 201H 12/05/18 16:34: Bedside Glucose (Misc Panel) 198H 12/05/18 19:53: Bedside Glucose (Misc Panel) 279H 12/06/18 06:19: Bedside Glucose (Misc Panel) 263H 12/06/18 06:42: Prothrombin Time 26.2H, Prothromb Time International Ratio 2.42 Current Medications Current Medications Current Medications Acetaminophen (Tylenol Tab) 1,000 mg TID PO Last administered on 12/06/18 09:34; Start 11/16/18 at 21:00 Amitriptyline HCl (Elavil) 25 mg QHS PO Last administered on 11/16/18 20:34; Start 11/16/18 at 21:00; Stop 11/17/18 at 14:27; Status DC Amitriptyline HCl (Elavil) 50 mg QHS PO Last administered on 11/18/18 21:38; Start 11/17/18 at 21:00; Stop 11/19/18 at 09:55; Status DC Amitriptyline HCl (Elavil) 50 mg QHS PO Last administered on 12/05/18 21:37; Start 11/19/18 at 21:00 Amlodipine Besylate (Norvasc) 5 mg BID PO Last administered on 11/17/18 08:16; Start 11/16/18 at 21:00; Stop 11/17/18 at 14:27; Status DC Apixaban (Eliquis) 5 mg BID PO ; Start 11/19/18 at 21:00; Stop 11/19/18 at 21:00; Status DC Aspirin (Aspirin Chewable) 81 mg DAILY PO Last administered on 12/06/18 09:32; Start 11/17/18 at 09:00 Atorvastatin Calcium (Lipitor) 10 mg QHS PO Last administered on 12/05/18 21:37; Start 11/16/18 at 21:00 Benzocaine (Anbesol Gel) 1 dose TID MT Last administered on 12/06/18 09:32; Start 12/04/18 at 16:00 Bisacodyl (Dulcolax Suppository) 10 mg DAILYPRN PRN [place] CONSTIPATION; Start 11/16/18 at 18:45 Bupropion HCl (Wellbutrin Xl) 150 mg DAILY PO Last administered on 12/06/18 09:31; Start 11/17/18 at 09:00 Calcium Carbonate (Tums) 1,000 mg Q4HP PRN PO HEARTBURN; Start 11/16/18 at 18:45 Carvedilol (COReg) 25 mg BID PO Last administered on 12/06/18at 09:32; Start 11/16/18 at 21:00 Cetirizine HCl (ZyrTEC) 5 mg QHS PO Last administered on 12/05/18at 21:37; Start 11/16/18 at 21:00 Dextrose (Dextrose 50%) 25 ml ASDIRECTED PRN IV SEE LABEL COMMENTS; Start 11/16/18 at 18:45 Docusate Sodium (Colace) 100 mg BID PO Last administered on 12/05/18at 21:37; Start 11/16/18 at 21:00 Enalapril Maleate (Vasotec) 10 mg BID PO ; Start 11/22/18 at 21:00; Stop 11/22/18 at 21:00; Status DC Enalapril Maleate (Vasotec) 20 mg BID PO Last administered on 11/22/18at 08:55; Start 11/16/18 at 21:00; Stop 11/22/18 at 10:07; Status DC Enoxaparin Sodium (Lovenox) 150 mg Q12H SC Last administered on 11/24/18at 08:22; Start 11/16/18 at 21:00; Stop 11/24/18 at 10:26; Status DC Gabapentin (Neurontin) 300 mg TID PO Last administered on 12/06/18at 09:31; Start 11/18/18 at 21:00 Glucagon (Glucagon) 1 mg ASDIRECTED PRN SC SEE LABEL COMMENTS; Start 11/16/18 at 18:45 Glucose (Glucose) 16 GM ASDIRECTED PRN PO SEE LABEL COMMENTS; Start 11/16/18 at 18:45 Home Med (Med Rec Complete!) ASDIRECTED XX ; Start 11/16/18 at 16:00; Stop 11/16/18 at 16:00; Status DC Insulin Detemir (Levemir Insulin) 10 units DAILY SC Last administered on 12/01/18at 11:01; Start 12/01/18 at 09:00; Stop 12/01/18 at 12:31; Status DC Insulin Detemir (Levemir Insulin) 10 units QHS SC Last administered on 11/17/18 21:09; Start 11/16/18 at 21:00; Stop 11/18/18 at 09:52; Status DC Insulin Detemir (Levemir Insulin) 15 units QHS SC Last administered on 11/23/18at 21:53; Start 11/18/18 at 21:00; Stop 11/24/18 at 10:26; Status DC Insulin Detemir (Levemir Insulin) 20 units DAILY SC Last administered on 12/06/18 09:31; Start 12/06/18 at 09:00 Insulin Detemir (Levemir Insulin) 20 units QHS SC Last administered on 11/29/18 21:11; Start 11/24/18 at 21:00; Stop 11/30/18 at 11:00; Status DC Insulin Detemir (Levemir Insulin) 30 units QHS SC Last administered on 11/30/18at 21:55; Start 11/30/18 at 21:00; Stop 12/01/18 at 12:31; Status DC Insulin Detemir (Levemir Insulin) 40 units QHS SC Last administered on 12/01/18at 21:49; Start 12/01/18 at 21:00; Stop 12/02/18 at 10:06; Status DC Insulin Detemir (Levemir Insulin) 68 units QHS SC Last administered on 12/03/18at 21:12; Start 12/02/18 at 21:00; Stop 12/04/18 at 13:34; Status DC Insulin Detemir (Levemir Insulin) 75 units QHS SC Last administered on 12/05/18at 21:36; Start 12/04/18 at 21:00; Stop 12/06/18 at 00:57; Status DC Insulin Detemir (Levemir Insulin) 80 units QHS SC ; Start 12/06/18 at 21:00 Insulin Human Lispro (HumaLOG INSULIN) 7 units AC SC Last administered on 12/06/18at 09:30; Start 12/01/18 at 17:30 Insulin Human Lispro (HumaLOG INSULIN) SEE PROTOCOL TABLE AC SC Last administered on 7/15/19at 09:30; Start 11/17/18 at 07:30 Insulin Human Lispro (HumaLOG INSULIN) SEE PROTOCOL TABLE QHS SC Last administered on 12/05/18 21:36; Start 11/16/18 at 21:00 Isosorbide Mononitrate (Imdur) 30 mg DAILY PO Last administered on 12/06/18 09:31; Start 11/19/18 at 11:00 Lidocaine (Lidoderm Patch) 1 patch DAILY TD Last administered on 12/06/18 09:33; Start 11/23/18 at 09:00 Magnesium Hydroxide (Milk Of Magnesia) 30 ml DAILYPRN PRN PO CONSTIPATION; Start 11/16/18 at 18:45 Menthol/Methyl Salicylate (Bengay Cream) right knee BID TOP Last administered on 12/05/18 21:37; Start 11/23/18 at 21:00 Miscellaneous (Unresolved Clarification Entry) SEE LABEL COMMENTS DAILY XX Last administered on 12/05/18at 15:00; Start 12/05/18 at 09:00; Stop 12/05/18 at 15:00; Status DC Nifedipine (Procardia Xl) 90 mg DAILY PO Last administered on 12/06/18 09:31; Start 11/17/18 at 09:00 Non-Formulary Medication ( See Comment Field Below ) DAILY@21 XX Last administered on 12/05/18at 21:38; Start 11/22/18 at 21:00 Non-Formulary Medication ( See Comment Field Below ) REMOVE LIDODERM PATCH DAILY@0415 XX ; Start 11/23/18 at 04:15; Stop 11/23/18 at 04:15; Status DC Omeprazole (PriLOSEC) 40 mg DAILY PO Last administered on 12/06/18 09:31; Start 11/17/18 at 09:00 Ondansetron HCl (Zofran) 4 mg Q6HP PRN PO NAUSEA; Start 11/16/18 at 18:45 Oxycodone HCl (Roxicodone, Oxyir) 5 mg Q4HP PRN PO PAIN Last administered on 11/27/18at 12:45; Start 11/27/18 at 12:00; Stop 11/29/18 at 08:50; Status DC Oxycodone HCl (Roxicodone, Oxyir) 5 mg Q6HP PRN PO PAIN Last administered on 12/06/18 06:27; Start 11/29/18 at 12:45 Oxycodone HCl (Roxicodone, Oxyir) 10 mg Q4HP PRN PO SEVERE PAIN (PS 8-10) Last administered on 11/26/18 12:45; Start 11/16/18 at 17:45; Stop 11/27/18 at 11:57; Status DC Senna (Senokot) 1 tab QHS PO Last administered on 12/04/18at 20:42; Start 11/16/18 at 21:00 Warfarin Sodium (Coumadin) 10 mg DAILY@1700 PO Last administered on 11/17/18 16:19; Start 11/16/18 at 17:00; Stop 11/18/18 at 09:52; Status DC Warfarin Sodium (Coumadin) 15 mg DAILY@1700 PO Last administered on 11/21/18at 16:46; Start 11/18/18 at 17:00; Stop 11/22/18 at 07:26; Status DC Warfarin Sodium (Coumadin) 17.5 mg DAILY@1700 PO Last administered on 12/05/18at 17:44; Start 11/22/18 at 17:00 KEVIN GODOY MD Dec 06, 2018 10:05
[2018-12-06 14:00] VITALS: BP 141/74
[2018-12-06] MEDS: WARFARIN SOD 5 MG TAB PO SCH (16:54)
[2018-12-06 20:00] VITALS: BP 185/98
[2018-12-06] MEDS: SENNA 8.6 MG TAB (SENOKOT) PO SCH (21:00)
[2018-12-06] MEDS: AMITRIPTYLINE 50 MG TAB PO SCH (21:05)
[2018-12-06] MEDS: ATORVASTATIN 10 MG TAB PO SCH (21:05)
[2018-12-06] MEDS: CETIRIZINE (ZyrTEC) 10 MG TAB PO SCH (21:05)
[2018-12-06] MEDS: **NOTE PATIENT COMMENT** MISC XX SCH (21:08)
[2018-12-07 06:00] VITALS: BP 160/82
[2018-12-07] MEDS: oxyCODONE 5MG TAB PO PRN ×3 (06:22→22:32)
[2018-12-07 06:47] LABS: INR 2.46; PROTHROMBIN TIME 26.5 SECONDS (11.8-14.0)
[2018-12-07] MEDS: HumaLOG INSULIN (NovoLOG) PER UNIT SC SCH ×7 (08:54→21:56)
[2018-12-07] MEDS: LIDOCAINE 5% (LIDODERM) PATCH TD SCH (08:56)
[2018-12-07] MEDS: GABAPENTIN 300 MG CAP PO SCH ×3 (08:56→21:54)
[2018-12-07] MEDS: ACETAMINOPHEN 500 MG TAB PO SCH ×3 (08:57→21:55)
[2018-12-07] MEDS: ISOSORBIDE MON. (IMDUR) 30 MG XR TAB PO SCH (08:57)
[2018-12-07] MEDS: buPROPion **XL** TABLET 150MG (WELLBUTRIN XL) PO SCH (08:57)
[2018-12-07] MEDS: ASPIRIN 81 MG CHEW TABLET PO SCH (08:58)
[2018-12-07] MEDS: OMEPRAZOLE 20 MG CAP PO SCH (08:58)
[2018-12-07] MEDS: NIFEdipine 30 MG XL TAB PO SCH (08:58)
[2018-12-07] MEDS: **hydrALAZINE HCL** 25 MG TAB PO SCH ×2 (08:58→21:54)
[2018-12-07] MEDS: CARVedilol 12.5 MG TAB PO SCH ×2 (08:59→21:54)
[2018-12-07] MEDS: BENZOCAINE 10% 9GM TUBE (ANBESOL) MT SCH ×3 (08:59→21:00)
[2018-12-07] MEDS: DOCUSATE SODIUM 100 MG CAP PO SCH ×2 (08:59→21:00)
[2018-12-07] MEDS ORDERED: LEVEMIR (INSULIN DETEMIR) 1 UNITS/0.01ML SC SCH ×2 (09:00→21:00)
[2018-12-07] MEDS: ANALGESIC BALM CRM 120 GM TOP SCH ×2 (09:00→21:00)
--- NOTE | 2018-12-07 10:14 | IPNPDOC ---
PM&R Progress Note DATE OF SERVICE: Dec 07, 2018 [employer] Removal Worker Progress Note Subjective: Patient reporting he feels well and was on his way to do laundry. He is participating in his own independent therapy program. REVIEW OF SYSTEMS: The following is a completed review of systems and has been reviewed. Review of systems otherwise unremarkable. PAIN: Patient self reports left residual limb pain EYES: no recent vision changes EARS, NOSE, & THROAT: denies dysphagia, no rhinorrhea CARDIOVASCULAR: denies chest pain/palpitations PULMONARY: Negative. Denies shortness of breath GASTROINTESTINAL: no diarrhea/constipation GENITOURINARY: no dysuria MUSCULOSKELETAL: left BKA, chronic low back pain HEMATOLOGICAL: Negative SKIN: left residual limb incision PSYCHIATRIC: Unremarkable All other review of systems found to be negative. PHYSICAL EXAMINATION: VITAL SIGNS: Please see below. GENERAL: Pleasant and cooperative. No acute distress. HEENT: PERRL. Extraocular movements intact. Clear conjunctiva CARDIOVASCULAR: Regular rate and rhythm. No murmurs, rubs, or gallops LUNGS: Clear to auscultation bilaterally. No wheezes. No rhonchi ABDOMEN: Soft, nontender, nondistended. Positive bowel sounds. Normal active bowel sounds NEUROLOGICAL: Alert and oriented times three. Cranial nerves II through XII grossly intact. Sensation grossly intact except diminished in LLE and distal RLE EXTREMITIES: 5\5 strength bilateral upper extremities. 5-\5 strength right lower extremity. 5-/5 strength in left hip flexors and knee flexors left shoulder exam- + Neers, +painful arc (improving) right knee- incision healed, no warmth/swelling, ROM functional, palpable click with extension SKIN: left residual limb incision c/d/i without induration ASSESSMENT:58-year-old M with past medical history of HTN, DM, chronic wound who presents status post left BKA. PLAN: 1. Rehab: PT, OT, assess for DME needs-room privileges from wheelchair level -goal is to stretch and strengthen his residual limb, prevent knee/hip flexion contractures, utilize desensitization techniques, strengthen core and upper body strength for safe and effective wheelchair propulsion -mod-I for wheelchair propulsions and ADLs, will need to work on fall recovery, car transfers, and kitchen tasks- currently transitioned to outpatient 30- minutes a day program as IRF skilled therapy has been exhausted while awaiting safe housing 2. Neuro: peripheral neuropathy- c/u tight glycemic control 3. Cardio: pmh HTN and HLD, c/u amlodipine, Carvedilol, Enalapril, and nifedipine- ASA and statin, medicine consulted to assist in management 4. Resp: encourage incentive spirometry, may use home CPAP for SARAH 5. Endo: pmh DM, c/u Levemir and ISS, c/u pre-meal standing coverage and increased evening Levemir increased 6. Vasc: pmh RUE DVT, s/p Lovenox bridge c/u Coumadin, monitor daily INRs -left BKA, wound healing well, CRP trending down 7. : monitor PVRs 8. GI ppx: omeprazole 9. Pain: oxycodone, c/u Elavil at 50mg qHS, and Tylenol -c/u Gabapentin 300mg TID -lidoderm patch to left shoulder and kinesiotape -menthol salicylate to right knee for suspected osteoarthritis - therapy to incorporate a back program into his minutes 10. DVT ppx: s/p Lovenox bridge, c/u warfarin 11. Skin: BID dressing changes- chace removed today per vascular surgeyr, sutures to be removed in 1 week (12/13/18) 12. Hyperkalemia- s/p Kayexalate, improving 12. Dispo: Patient currently does not have safe dispo, still awaiting housing from [facility], once obtained we are required to do a home eval- patient has met all of his short-term goals for mobility and at this time is declining ambulation on his right leg due to pain- no longer receiving IRF level of skilled therapy while waiting for [facility] to find appropriate housing for patient-another apartment has been suggested, home evaluation to take place tomorrow Allergies Coded Allergies: povidone-iodine (Verified Allergy, Unknown, 08/18/18) soap (Verified Allergy, Unknown, 08/18/18) Vital Signs Vital Signs Date Time Temp Pulse Resp B/P (MAP) Pulse Ox O2 Delivery O2 Flow Rate FiO2 12/07/18 08:59 76 160/82 12/07/18 06:52 18 12/07/18 06:00 97.8 96 Laboratory Data Labs 24H Laboratory Tests 2 12/06/18 11:37: Bedside Glucose (Misc Panel) 203H 12/06/18 16:46: Bedside Glucose (Misc Panel) 188H 12/06/18 19:48: Bedside Glucose (Misc Panel) 211H 12/07/18 05:39: Bedside Glucose (Misc Panel) 303H 12/07/18 06:01: Prothrombin Time 26.5H, Prothromb Time International Ratio 2.46 Current Medications Current Medications Current Medications Acetaminophen (Tylenol Tab) 1,000 mg TID PO Last administered on 12/07/18at 08:57; Start 11/16/18 at 21:00 Amitriptyline HCl (Elavil) 25 mg QHS PO Last administered on 11/16/18 20:34; Start 11/16/18 at 21:00; Stop 11/17/18 at 14:27; Status DC Amitriptyline HCl (Elavil) 50 mg QHS PO Last administered on 11/18/18at 21:38; Start 11/17/18 at 21:00; Stop 11/19/18 at 09:55; Status DC Amitriptyline HCl (Elavil) 50 mg QHS PO Last administered on 12/06/18at 21:05; Start 11/19/18 at 21:00 Amlodipine Besylate (Norvasc) 5 mg BID PO Last administered on 11/17/18at 08:16; Start 11/16/18 at 21:00; Stop 11/17/18 at 14:27; Status DC Apixaban (Eliquis) 5 mg BID PO ; Start 11/19/18 at 21:00; Stop 11/19/18 at 21:00; Status DC Aspirin (Aspirin Chewable) 81 mg DAILY PO Last administered on 12/07/18at 08:58; Start 11/17/18 at 09:00 Atorvastatin Calcium (Lipitor) 10 mg QHS PO Last administered on 12/06/18at 21:05; Start 11/16/18 at 21:00 Benzocaine (Anbesol Gel) 1 dose TID MT Last administered on 12/06/18at 21:07; Start 12/04/18 at 16:00 Bisacodyl (Dulcolax Suppository) 10 mg DAILYPRN PRN SC CONSTIPATION; Start 11/16/18 at 18:45 Bupropion HCl (Wellbutrin Xl) 150 mg DAILY PO Last administered on 12/07/18at 08:57; Start 11/17/18 at 09:00 Calcium Carbonate (Tums) 1,000 mg Q4HP PRN PO HEARTBURN; Start 11/16/18 at 18:45 Carvedilol (COReg) 25 mg BID PO Last administered on 12/07/18at 08:59; Start 11/16/18 at 21:00 Cetirizine HCl (ZyrTEC) 5 mg QHS PO Last administered on 12/06/18at 21:05; Start 11/16/18 at 21:00 Dextrose (Dextrose 50%) 25 ml ASDIRECTED PRN IV SEE LABEL COMMENTS; Start 11/16/18 at 18:45 Docusate Sodium (Colace) 100 mg BID PO Last administered on 12/05/18at 21:37; Start 11/16/18 at 21:00 Enalapril Maleate (Vasotec) 10 mg BID PO ; Start 11/22/18 at 21:00; Stop 11/22/18 at 21:00; Status DC Enalapril Maleate (Vasotec) 20 mg BID PO Last administered on 11/22/18at 08:55; Start 11/16/18 at 21:00; Stop 11/22/18 at 10:07; Status DC Enoxaparin Sodium (Lovenox) 150 mg Q12H SC Last administered on 11/24/18at 08:22; Start 11/16/18 at 21:00; Stop 11/24/18 at 10:26; Status DC Gabapentin (Neurontin) 300 mg TID PO Last administered on 12/07/18at 08:56; Start 11/18/18 at 21:00 Glucagon (Glucagon) 1 mg ASDIRECTED PRN SC SEE LABEL COMMENTS; Start 11/16/18 at 18:45 Glucose (Glucose) 16 GM ASDIRECTED PRN PO SEE LABEL COMMENTS; Start 11/16/18 at 18:45 Home Med (Med Rec Complete!) ASDIRECTED XX ; Start 11/16/18 at 16:00; Stop 11/16/18 at 16:00; Status DC Hydralazine HCl (Apresoline) 25 mg Q12H PO Last administered on 12/07/18at 08:58; Start 12/07/18 at 09:00 Insulin Detemir (Levemir Insulin) 10 units DAILY SC Last administered on 9at 11:01; Start 12/01/18 at 09:00; Stop 12/01/18 at 12:31; Status DC Insulin Detemir (Levemir Insulin) 10 units QHS SC Last administered on 11/17/18at 21:09; Start 11/16/18 at 21:00; Stop 11/18/18 at 09:52; Status DC Insulin Detemir (Levemir Insulin) 15 units QHS SC Last administered on 11/23/18at 21:53; Start 11/18/18 at 21:00; Stop 11/24/18 at 10:26; Status DC Insulin Detemir (Levemir Insulin) 20 units DAILY SC Last administered on 12/06/18at 09:31; Start 12/06/18 at 09:00; Stop 12/07/18 at 07:36; Status DC Insulin Detemir (Levemir Insulin) 20 units QHS SC Last administered on 11/29/18at 21:11; Start 11/24/18 at 21:00; Stop 11/30/18 at 11:00; Status DC Insulin Detemir (Levemir Insulin) 30 units QHS SC Last administered on 11/30/18at 21:55; Start 11/30/18 at 21:00; Stop 12/01/18 at 12:31; Status DC Insulin Detemir (Levemir Insulin) 35 units DAILY SC Last administered on 12/07/18at 08:55; Start 12/07/18 at 09:00 Insulin Detemir (Levemir Insulin) 40 units QHS SC Last administered on 12/01/18at 21:49; Start 12/01/18 at 21:00; Stop 12/02/18 at 10:06; Status DC Insulin Detemir (Levemir Insulin) 65 units QHS SC ; Start 12/07/18 at 21:00 Insulin Detemir (Levemir Insulin) 68 units QHS SC Last administered on 12/03/18at 21:12; Start 12/02/18 at 21:00; Stop 12/04/18 at 13:34; Status DC Insulin Detemir (Levemir Insulin) 75 units QHS SC Last administered on 12/05/18at 21:36; Start 12/04/18 at 21:00; Stop 12/06/18 at 00:57; Status DC Insulin Detemir (Levemir Insulin) 80 units QHS SC Last administered on 12/06/18at 21:07; Start 12/06/18 at 21:00; Stop 12/07/18 at 07:36; Status DC Insulin Human Lispro (HumaLOG INSULIN) 7 units AC SC Last administered on 12/07/18 08:55; Start 12/01/18 at 17:30 Insulin Human Lispro (HumaLOG INSULIN) SEE PROTOCOL TABLE AC SC Last administ ered on 12/07/18 08:54; Start 11/17/18 at 07:30 Insulin Human Lispro (HumaLOG INSULIN) SEE PROTOCOL TABLE QHS SC Last administ ered on 12/05/18 21:36; Start 11/16/18 at 21:00 Isosorbide Mononitrate (Imdur) 30 mg DAILY PO Last administered on 12/07/18at 0 8:57; Start 11/19/18 at 11:00 Lidocaine (Lidoderm Patch) 1 patch DAILY TD Last administered on 12/07/18at 08:56; Start 11/23/18 at 09:00 Magnesium Hydroxide (Milk Of Magnesia) 30 ml DAILYPRN PRN PO CONSTIPATION; Start 11/16/18 at 18:45 Menthol/Methyl Salicylate (Bengay Cream) right knee BID TOP Last administered on 12/05/18at 21:37; Start 11/23/18 at 21:00 Miscellaneous (Unresolved Clarification Entry) SEE LABEL COMMENTS DAILY XX Last administered on 12/05/18at 15:00; Start 12/05/18 at 09:00; Stop 12/05/18 at 15:00; Status DC Nifedipine (Procardia Xl) 90 mg DAILY PO Last administered on 12/07/18at 08:58; Start 11/17/18 at 09:00 Non-Formulary Medication ( See Comment Field Below ) DAILY@21 XX Last administered on 12/06/18at 21:08; Start 11/22/18 at 21:00 Non-Formulary Medication ( See Comment Field Below ) REMOVE LIDODERM PATCH DAILY@0415 XX ; Start 11/23/18 at 04:15; Stop 11/23/18 at 04:15; Status DC Omeprazole (PriLOSEC) 40 mg DAILY PO Last administered on 12/07/18 08:58; Start 11/17/18 at 09:00 Ondansetron HCl (Zofran) 4 mg Q6HP PRN PO NAUSEA; Start 11/16/18 at 18:45 Oxycodone HCl (Roxicodone, Oxyir) 5 mg Q4HP PRN PO PAIN Last administered on 11/27/18 12:45; Start 11/27/18 at 12:00; Stop 11/29/18 at 08:50; Status DC Oxycodone HCl (Roxicodone, Oxyir) 5 mg Q6HP PRN PO PAIN Last administered on 12/07/18 06:22; Start 11/29/18 at 12:45 Oxycodone HCl (Roxicodone, Oxyir) 10 mg Q4HP PRN PO SEVERE PAIN (PS 8-10) Last administered on 11/26/18 12:45; Start 11/16/18 at 17:45; Stop 11/27/18 at 11:57; Status DC Senna (Senokot) 1 tab QHS PO Last administered on 12/04/18at 20:42; Start 11/16/18 at 21:00 Warfarin Sodium (Coumadin) 10 mg DAILY@1700 PO Last administered on 11/17/18 16:19; Start 11/16/18 at 17:00; Stop 11/18/18 at 09:52; Status DC Warfarin Sodium (Coumadin) 15 mg DAILY@1700 PO Last administered on 11/21/18 16:46; Start 11/18/18 at 17:00; Stop 11/22/18 at 07:26; Status DC Warfarin Sodium (Coumadin) 17.5 mg DAILY@1700 PO Last administered on 12/06/18 16:54; Start 11/22/18 at 17:00 KEVIN GODOY MD Dec 07, 2018 10:14
--- NOTE | 2018-12-07 13:20 | IPNPDOC ---
Subjective Date Seen The patient was seen on 12/07/18. Subjective Chief Complaint/HPI Patient does not offer any complaints today except for some discomfort in the surgical site described as dull ache. No fever or chills, no chest pain or sob or cough, No abdominal pain ,no nausea or vomiting or diarrhea, Has not had bowel movements for several days. Objective Physical Examination General Exam: Positive: Alert, Cooperative, No Acute Distress ENT Exam: Positive: Atraumatic, Mucous membr. moist/pink Neck Exam: Positive: Supple; Negative: JVD Chest Exam: Positive: Clear to auscultation, Normal air movement Heart Exam: Positive: Rate Normal, Normal S1, Normal S2 Abdomen Exam: Positive: Normal bowel sounds, Soft; Negative: Tenderness Extremity Exam: Positive: Other (s/p Left Foot BKA. Extremity wrapped in surgical dressing. ); Negative: Tenderness Psych Exam: Positive: Oriented x 3 Assessment /Plan Assessment Left heel cellulitis with non healing ulcer s/p left BKA. -which progressed to nonhealing ulcer, in a patient with poorly controlled diabetes -s/p left BKA on 11/06 by Vascular Surgery -Rehabilitation per primary team Swollen Lymph nodes -CT pelvis without contrast to evaluate further -lymph nodes not palpable due to habitus -follow CT findings Diabetes mellitus with neuropathy, nephropathy -poorly controlled. -total insulin dose increased to 100 units of levemir daily -fingerstick checks with meals and coverage with sliding scale insulin -continue gabapentin and amitryptiline CKD -stage 3 -creatinine stable. DVT right upper extremity -continue Coumadin - INR at goal Hypertension -remains uncontrolled -continue Coreg, Imdur, Nifedipine -will start hydralazine -continue to adjust doses and target SBP<140mmHg Obesity with Obstructive sleep apnea - CPAP at bedtime Anxiety and depression -continue bupropion, amitryptiline. DVT Prophylaxis -fully anticoagulated with Coumadin Plan/VTE VTE Prophylaxis Ordered?: Yes VS, I&O, 24H, Tali Vital Signs/I&O Vital Signs Date Time Temp Pulse Resp B/P (MAP) Pulse Ox O2 Delivery O2 Flow Rate FiO2 12/07/18 06:52 18 12/07/18 06:00 97.8 76 160/82 (108) 96 I&O- Last 24 Hours up to 6 AM 12/07/18 05:59 Intake Total 1960 ml Output Total 2600 ml Balance -640 ml Laboratory Data 24H LABS Laboratory Tests 2 12/06/18 11:37: Bedside Glucose (Misc Panel) 203H 12/06/18 16:46: Bedside Glucose (Misc Panel) 188H 12/06/18 19:48: Bedside Glucose (Misc Panel) 211H 12/07/18 05:39: Bedside Glucose (Misc Panel) 303H 12/07/18 06:01: Prothrombin Time 26.5H, Prothromb Time International Ratio 2.46 GRICELDA OBANDO MD Dec 07, 2018 07:48
[2018-12-07 14:00] VITALS: BP 115/55
[2018-12-07] MEDS: WARFARIN SOD 5 MG TAB PO SCH (17:28)
[2018-12-07 20:00] VITALS: BP 146/67
[2018-12-07] MEDS: SENNA 8.6 MG TAB (SENOKOT) PO SCH (21:00)
[2018-12-07] MEDS: CETIRIZINE (ZyrTEC) 10 MG TAB PO SCH (21:53)
[2018-12-07] MEDS: ATORVASTATIN 10 MG TAB PO SCH (21:54)
[2018-12-07] MEDS: AMITRIPTYLINE 50 MG TAB PO SCH (21:54)
[2018-12-07] MEDS: **NOTE PATIENT COMMENT** MISC XX SCH (21:55)
[2018-12-08] MEDS: oxyCODONE 5MG TAB PO PRN ×3 (05:11→18:00)
[2018-12-08 06:00] VITALS: BP 150/70
[2018-12-08] MEDS: BENZOCAINE 10% 9GM TUBE (ANBESOL) MT SCH ×3 (07:59→21:34)
[2018-12-08] MEDS: ANALGESIC BALM CRM 120 GM TOP SCH ×2 (07:59→21:00)
[2018-12-08] MEDS: DOCUSATE SODIUM 100 MG CAP PO SCH ×2 (08:00→21:00)
[2018-12-08] MEDS: ACETAMINOPHEN 500 MG TAB PO SCH ×3 (08:45→21:33)
[2018-12-08] MEDS: HumaLOG INSULIN (NovoLOG) PER UNIT SC SCH ×7 (08:45→21:00)
[2018-12-08] MEDS: LIDOCAINE 5% (LIDODERM) PATCH TD SCH (08:45)
[2018-12-08] MEDS: NIFEdipine 30 MG XL TAB PO SCH (08:46)
[2018-12-08] MEDS: ISOSORBIDE MON. (IMDUR) 30 MG XR TAB PO SCH (08:46)
[2018-12-08] MEDS: OMEPRAZOLE 20 MG CAP PO SCH (08:46)
[2018-12-08] MEDS: **hydrALAZINE HCL** 25 MG TAB PO SCH (08:46)
[2018-12-08] MEDS: GABAPENTIN 300 MG CAP PO SCH ×3 (08:46→21:32)
[2018-12-08] MEDS: buPROPion **XL** TABLET 150MG (WELLBUTRIN XL) PO SCH (08:46)
[2018-12-08] MEDS: CARVedilol 12.5 MG TAB PO SCH ×2 (08:47→21:31)
[2018-12-08] MEDS: LEVEMIR (INSULIN DETEMIR) 1 UNITS/0.01ML SC SCH ×2 (08:47→21:35)
[2018-12-08] MEDS: ASPIRIN 81 MG CHEW TABLET PO SCH (08:47)
--- NOTE | 2018-12-08 10:17 | IPNPDOC ---
PM&R Progress Note DATE OF SERVICE: Dec 08, 2018 [employer] Progress Note Subjective: Patient reporting he is working on his own exercise program. REVIEW OF SYSTEMS: The following is a completed review of systems and has been reviewed. Review of systems otherwise unremarkable. PAIN: Patient self reports left residual limb pain EYES: no recent vision changes EARS, NOSE, & THROAT: denies dysphagia, no rhinorrhea CARDIOVASCULAR: denies chest pain/palpitations PULMONARY: Negative. Denies shortness of breath GASTROINTESTINAL: no diarrhea/constipation GENITOURINARY: no dysuria MUSCULOSKELETAL: left BKA, chronic low back pain HEMATOLOGICAL: Negative SKIN: left residual limb incision PSYCHIATRIC: Unremarkable All other review of systems found to be negative. PHYSICAL EXAMINATION: VITAL SIGNS: Please see below. GENERAL: Pleasant and cooperative. No acute distress. HEENT: PERRL. Extraocular movements intact. Clear conjunctiva CARDIOVASCULAR: Regular rate and rhythm. No murmurs, rubs, or gallops LUNGS: Clear to auscultation bilaterally. No wheezes. No rhonchi ABDOMEN: Soft, nontender, nondistended. Positive bowel sounds. Normal active bowel sounds NEUROLOGICAL: Alert and oriented times three. Cranial nerves II through XII grossly intact. Sensation grossly intact except diminished in LLE and distal RLE EXTREMITIES: 5\5 strength bilateral upper extremities. 5-\5 strength right lower extremity. 5-/5 strength in left hip flexors and knee flexors left shoulder exam- + Neers, +painful arc (improving) right knee- incision healed, no warmth/swelling, ROM functional, palpable click with extension SKIN: left residual limb incision c/d/i without induration ASSESSMENT:58-year-old M with past medical history of HTN, DM, chronic wound who presents status post left BKA. PLAN: 1. Rehab: room privileges from wheelchair level, doing own exercise program while awaiting housing -goal is to stretch and strengthen his residual limb, prevent knee/hip flexion contractures, utilize desensitization techniques, strengthen core and upper body strength for safe and effective wheelchair propulsion -mod-I for wheelchair propulsions and ADLs, will need to work on fall recovery, car transfers, and kitchen tasks- currently transitioned to outpatient 30- minutes a day program as IRF skilled therapy has been exhausted while awaiting safe housing 2. Neuro: peripheral neuropathy- c/u tight glycemic control 3. Cardio: pmh HTN and HLD, c/u meds, will increase hydralazine to 50mg BID with holding parameters for elevated sBPs- ASA and statin, medicine consulted to assist in management 4. Resp: encourage incentive spirometry, may use home CPAP for SARAH 5. Endo: pmh DM, c/u Levemir and ISS, c/u pre-meal standing coverage and increased evening Levemir increased 6. Vasc: pmh RUE DVT, s/p Lovenox bridge c/u Coumadin, monitor daily INRs -left BKA, wound healing well, CRP trending down 7. : monitor PVRs 8. GI ppx: omeprazole 9. Pain: oxycodone, c/u Elavil at 50mg qHS, and Tylenol -c/u Gabapentin 300mg TID -lidoderm patch to left shoulder and kinesiotape -menthol salicylate to right knee for suspected osteoarthritis 10. DVT ppx: s/p Lovenox bridge, c/u warfarin 11. Skin: BID dressing changes- chace removed per vascular surgeyr, sutures to be removed in 1 week (12/13/18) 12. Hyperkalemia- s/p Kayexalate, improving 12. Dispo: Patient currently does not have safe dispo, still awaiting housing from [facility], once obtained we are required to do a home eval- patient has met all of his short-term goals for mobility and at this time is declining ambulation on his right leg due to pain- no longer receiving IRF level of skilled therapy wh ile waiting for [facility] to find appropriate housing for patient-another apartment has been suggested, home evaluation not safe or accessible, [facility] aware and working on finding new housing Allergies Coded Allergies: povidone-iodine (Verified Allergy, Unknown, 08/18/18) soap (Verified Allergy, Unknown, 08/18/18) Vital Signs Vital Signs Date Time Temp Pulse Resp B/P (MAP) Pulse Ox O2 Delivery O2 Flow Rate FiO2 12/08/18 08:47 78 150/70 12/08/18 06:00 98.5 18 95 Laboratory Data Labs 24H Laboratory Tests 2 12/07/18 11:48: Bedside Glucose (Misc Panel) 172H 12/07/18 13:34: Bedside Glucose (Misc Panel) 105 12/07/18 16:59: Bedside Glucose (Misc Panel) 278H 12/07/18 20:46: Bedside Glucose (Misc Panel) 262H 12/08/18 05:48: Bedside Glucose (Misc Panel) 233H 12/08/18 09:48: Current Medications Current Medications Current Medications Acetaminophen (Tylenol Tab) 1,000 mg TID PO Last administered on 12/08/18 08:45; Start 11/16/18 at 21:00 Amitriptyline HCl (Elavil) 25 mg QHS PO Last administered on 11/16/18 20:34; Start 11/16/18 at 21:00; Stop 11/17/18 at 14:27; Status DC Amitriptyline HCl (Elavil) 50 mg QHS PO Last administered on 11/18/18 21:38; Start 11/17/18 at 21:00; Stop 11/19/18 at 09:55; Status DC Amitriptyline HCl (Elavil) 50 mg QHS PO Last administered on 12/07/18 21:54; Start 11/19/18 at 21:00 Amlodipine Besylate (Norvasc) 5 mg BID PO Last administered on 11/17/18 08:16; Start 11/16/18 at 21:00; Stop 11/17/18 at 14:27; Status DC Apixaban (Eliquis) 5 mg BID PO ; Start 11/19/18 at 21:00; Stop 11/19/18 at 21:00; Status DC Aspirin (Aspirin Chewable) 81 mg DAILY PO Last administered on 12/08/18 08:47; Start 11/17/18 at 09:00 Atorvastatin Calcium (Lipitor) 10 mg QHS PO Last administered on 12/07/18 21:54; Start 11/16/18 at 21:00 Benzocaine (Anbesol Gel) 1 dose TID MT Last administered on 12/06/18 21:07; Start 12/04/18 at 16:00 Bisacodyl (Dulcolax Suppository) 10 mg DAILYPRN PRN [place] CONSTIPATION; Start 11/16/18 at 18:45 Bupropion HCl (Wellbutrin Xl) 150 mg DAILY PO Last administered on 12/08/18 08:46; Start 11/17/18 at 09:00 Calcium Carbonate (Tums) 1,000 mg Q4HP PRN PO HEARTBURN; Start 11/16/18 at 18:45 Carvedilol (COReg) 25 mg BID PO Last administered on 12/08/18at 08:47; Start 11/16/18 at 21:00 Cetirizine HCl (ZyrTEC) 5 mg QHS PO Last administered on 12/07/18at 21:53; Start 11/16/18 at 21:00 Dextrose (Dextrose 50%) 25 ml ASDIRECTED PRN IV SEE LABEL COMMENTS; Start 11/16/18 at 18:45 Docusate Sodium (Colace) 100 mg BID PO Last administered on 12/05/18at 21:37; Start 11/16/18 at 21:00 Enalapril Maleate (Vasotec) 10 mg BID PO ; Start 11/22/18 at 21:00; Stop 11/22/18 at 21:00; Status DC Enalapril Maleate (Vasotec) 20 mg BID PO Last administered on 11/22/18at 08:55; Start 11/16/18 at 21:00; Stop 11/22/18 at 10:07; Status DC Enoxaparin Sodium (Lovenox) 150 mg Q12H SC Last administered on 11/24/18at 08:22; Start 11/16/18 at 21:00; Stop 11/24/18 at 10:26; Status DC Gabapentin (Neurontin) 300 mg TID PO Last administered on 12/08/18at 08:46; Start 11/18/18 at 21:00 Glucagon (Glucagon) 1 mg ASDIRECTED PRN SC SEE LABEL COMMENTS; Start 11/16/18 at 18:45 Glucose (Glucose) 16 GM ASDIRECTED PRN PO SEE LABEL COMMENTS; Start 11/16/18 at 18:45 Home Med (Med Rec Complete!) ASDIRECTED XX ; Start 11/16/18 at 16:00; Stop 11/16/18 at 16:00; Status DC Hydralazine HCl (Apresoline) 25 mg Q12H PO Last administered on 12/08/18at 08:46; Start 12/07/18 at 09:00 Insulin Detemir (Levemir Insulin) 10 units DAILY SC Last administered on 12/01/18at 11:01; Start 12/01/18 at 09:00; Stop 12/01/18 at 12:31; Status DC Insulin Detemir (Levemir Insulin) 10 units QHS SC Last administered on 11/17/18at 21:09; Start 11/16/18 at 21:00; Stop 11/18/18 at 09:52; Status DC Insulin Detemir (Levemir Insulin) 15 units QHS SC Last administered on 11/23/18at 21:53; Start 11/18/18 at 21:00; Stop 11/24/18 at 10:26; Status DC Insulin Detemir (Levemir Insulin) 20 units DAILY SC Last administered on 12/06/18at 09:31; Start 12/06/18 at 09:00; Stop 12/07/18 at 07:36; Status DC Insulin Detemir (Levemir Insulin) 20 units QHS SC Last administered on 11/29/18at 21:11; Start 11/24/18 at 21:00; Stop 11/30/18 at 11:00; Status DC Insulin Detemir (Levemir Insulin) 30 units QHS SC Last administered on 11/30/18at 21:55; Start 11/30/18 at 21:00; Stop 12/01/18 at 12:31; Status DC Insulin Detemir (Levemir Insulin) 35 units DAILY SC Last administered on 12/07/18at 08:55; Start 12/07/18 at 09:00; Stop 12/08/18 at 07:36; Status DC Insulin Detemir (Levemir Insulin) 40 units QHS SC Last administered on 12/01/18at 21:49; Start 12/01/18 at 21:00; Stop 12/02/18 at 10:06; Status DC Insulin Detemir (Levemir Insulin) 45 units DAILY SC Last administered on 12/08/18at 08:47; Start 12/08/18 at 09:00 Insulin Detemir (Levemir Insulin) 55 units QHS SC ; Start 12/08/18 at 21:00 Insulin Detemir (Levemir Insulin) 65 units QHS SC Last administered on 12/07/18at 21:56; Start 12/07/18 at 21:00; Stop 12/08/18 at 07:36; Status DC Insulin Detemir (Levemir Insulin) 68 units QHS SC Last administered on 12/03/18 21:12; Start 12/02/18 at 21:00; Stop 12/04/18 at 13:34; Status DC Insulin Detemir (Levemir Insulin) 75 units QHS SC Last administered on 12/05/18 21:36; Start 12/04/18 at 21:00; Stop 12/06/18 at 00:57; Status DC Insulin Detemir (Levemir Insulin) 80 units QHS SC Last administered on 12/06/18at 21:07; Start 12/06/18 at 21:00; Stop 12/07/18 at 07:36; Status DC Insulin Human Lispro (HumaLOG INSULIN) 7 units AC SC Last administered on 12/08/18at 08:45; Start 12/01/18 at 17:30 Insulin Human Lispro (HumaLOG INSULIN) SEE PROTOCOL TABLE AC SC Last administered on 12/08/18at 08:45; Start 11/17/18 at 07:30 Insulin Human Lispro (HumaLOG INSULIN) SEE PROTOCOL TABLE QHS SC Last administered on 12/07/18at 21:56; Start 11/16/18 at 21:00 Isosorbide Mononitrate (Imdur) 30 mg DAILY PO Last administered on 12/08/18 08:46; Start 11/19/18 at 11:00 Lidocaine (Lidoderm Patch) 1 patch DAILY TD Last administered on 12/08/18at 08:45; Start 11/23/18 at 09:00 Magnesium Hydroxide (Milk Of Magnesia) 30 ml DAILYPRN PRN PO CONSTIPATION; Start 11/16/18 at 18:45 Menthol/Methyl Salicylate (Bengay Cream) right knee BID TOP Last administered on 12/05/18at 21:37; Start 11/23/18 at 21:00 Miscellaneous (Unresolved Clarification Entry) SEE LABEL COMMENTS DAILY XX Last administered on 12/05/18at 15:00; Start 12/05/18 at 09:00; Stop 12/05/18 at 15:0 0; Status DC Nifedipine (Procardia Xl) 90 mg DAILY PO Last administered on 12/08/18 08:46; Start 11/17/18 at 09:00 Non-Formulary Medication ( See Comment Field Below ) DAILY@21 XX Last administered on 12/07/18at 21:55; Start 11/22/18 at 21:00 Non-Formulary Medication ( See Comment Field Below ) REMOVE LIDODERM PATCH DAILY@0415 XX ; Start 11/23/18 at 04:15; Stop 11/23/18 at 04:15; Status DC Omeprazole (PriLOSEC) 40 mg DAILY PO Last administered on 12/08/18at 08:46; Start 11/17/18 at 09:00 Ondansetron HCl (Zofran) 4 mg Q6HP PRN PO NAUSEA; Start 11/16/18 at 18:45 Oxycodone HCl (Roxicodone, Oxyir) 5 mg Q4HP PRN PO PAIN Last administered on 11/27/18at 12:45; Start 11/27/18 at 12:00; Stop 11/29/18 at 08:50; Status DC Oxycodone HCl (Roxicodone, Oxyir) 5 mg Q6HP PRN PO PAIN Last administered on 12/08/18at 05:11; Start 11/29/18 at 12:45 Oxycodone HCl (Roxicodone, Oxyir) 10 mg Q4HP PRN PO SEVERE PAIN (PS 8-10) Last administered on 11/26/18at 12:45; Start 11/16/18 at 17:45; Stop 11/27/18 at 11:57; Status DC Senna (Senokot) 1 tab QHS PO Last administered on 12/04/18at 20:42; Start 11/16/18 at 21:00 Warfarin Sodium (Coumadin) 10 mg DAILY@1700 PO Last administered on 11/17/18at 16:19; Start 11/16/18 at 17:00; Stop 11/18/18 at 09:52; Status DC Warfarin Sodium (Coumadin) 15 mg DAILY@1700 PO Last administered on 11/21/18at 16:46; Start 11/18/18 at 17:00; Stop 11/22/18 at 07:26; Status DC Warfarin Sodium (Coumadin) 17.5 mg DAILY@1700 PO Last administered on 12/07/18at 17:28; Start 11/22/18 at 17:00 KEVIN GODOY MD Dec 08, 2018 10:17
[2018-12-08 10:34] LABS: INR 2.4
[2018-12-08 14:00] VITALS: BP 166/80
[2018-12-08] MEDS: WARFARIN SOD 5 MG TAB PO SCH (16:40)
[2018-12-08 20:00] VITALS: BP 162/84
[2018-12-08] MEDS: CETIRIZINE (ZyrTEC) 10 MG TAB PO SCH (21:30)
[2018-12-08] MEDS: AMITRIPTYLINE 50 MG TAB PO SCH (21:30)
[2018-12-08] MEDS: **hydrALAZINE** 50 MG TAB PO SCH (21:32)
[2018-12-08] MEDS: ATORVASTATIN 10 MG TAB PO SCH (21:32)
[2018-12-08] MEDS: SENNA 8.6 MG TAB (SENOKOT) PO SCH (21:32)
[2018-12-08] MEDS: **NOTE PATIENT COMMENT** MISC XX SCH (21:38)
[2018-12-09] MEDS: oxyCODONE 5MG TAB PO PRN ×3 (03:11→17:07)
[2018-12-09 06:21] VITALS: BP 172/87
[2018-12-09 07:31] LABS: INR 2.4
[2018-12-09] MEDS: ASPIRIN 81 MG CHEW TABLET PO SCH (07:42)
[2018-12-09] MEDS: HumaLOG INSULIN (NovoLOG) PER UNIT SC SCH ×7 (07:43→20:48)
[2018-12-09] MEDS: ACETAMINOPHEN 500 MG TAB PO SCH ×3 (07:44→20:47)
[2018-12-09] MEDS: OMEPRAZOLE 20 MG CAP PO SCH (07:44)
[2018-12-09] MEDS: LEVEMIR (INSULIN DETEMIR) 1 UNITS/0.01ML SC SCH ×2 (07:44→20:45)
[2018-12-09] MEDS: GABAPENTIN 300 MG CAP PO SCH ×3 (07:44→20:45)
[2018-12-09] MEDS: ISOSORBIDE MON. (IMDUR) 30 MG XR TAB PO SCH (07:45)
[2018-12-09] MEDS: CARVedilol 12.5 MG TAB PO SCH ×2 (07:45→20:46)
[2018-12-09] MEDS: **hydrALAZINE** 50 MG TAB PO SCH ×2 (07:46→20:46)
[2018-12-09] MEDS: NIFEdipine 30 MG XL TAB PO SCH (07:46)
[2018-12-09] MEDS: buPROPion **XL** TABLET 150MG (WELLBUTRIN XL) PO SCH (07:46)
[2018-12-09] MEDS: LIDOCAINE 5% (LIDODERM) PATCH TD SCH (07:46)
[2018-12-09] MEDS: DOCUSATE SODIUM 100 MG CAP PO SCH ×2 (07:47→20:46)
[2018-12-09] MEDS: BENZOCAINE 10% 9GM TUBE (ANBESOL) MT SCH ×3 (07:47→20:48)
[2018-12-09] MEDS: ANALGESIC BALM CRM 120 GM TOP SCH ×2 (07:47→20:49)
[2018-12-09] MEDS: WARFARIN SOD 5 MG TAB PO SCH (17:07)
[2018-12-09 20:00] VITALS: BP 160/80
[2018-12-09] MEDS: CETIRIZINE (ZyrTEC) 10 MG TAB PO SCH (20:43)
[2018-12-09] MEDS: AMITRIPTYLINE 50 MG TAB PO SCH (20:45)
[2018-12-09] MEDS: SENNA 8.6 MG TAB (SENOKOT) PO SCH (20:45)
[2018-12-09] MEDS: ATORVASTATIN 10 MG TAB PO SCH (20:45)
[2018-12-09] MEDS: **NOTE PATIENT COMMENT** MISC XX SCH (20:49)
[2018-12-10] MEDS: oxyCODONE 5MG TAB PO PRN ×3 (02:46→15:41)
[2018-12-10 05:52] VITALS: BP 156/87
[2018-12-10 07:40] LABS: INR 2.2; PROTHROMBIN TIME 24.2 SECONDS (11.8-14.0)
[2018-12-10] MEDS: HumaLOG INSULIN (NovoLOG) PER UNIT SC SCH ×7 (08:08→22:12)
[2018-12-10] MEDS: **hydrALAZINE HCL** 25 MG TAB PO SCH ×2 (08:14→21:57)
[2018-12-10] MEDS: GABAPENTIN 300 MG CAP PO SCH ×3 (08:15→21:56)
[2018-12-10] MEDS: NIFEdipine 30 MG XL TAB PO SCH (08:15)
[2018-12-10] MEDS: CARVedilol 12.5 MG TAB PO SCH ×2 (08:15→21:57)
[2018-12-10] MEDS: buPROPion **XL** TABLET 150MG (WELLBUTRIN XL) PO SCH (08:16)
[2018-12-10] MEDS: OMEPRAZOLE 20 MG CAP PO SCH (08:16)
[2018-12-10] MEDS: ISOSORBIDE MON. (IMDUR) 30 MG XR TAB PO SCH (08:16)
[2018-12-10] MEDS: ASPIRIN 81 MG CHEW TABLET PO SCH (08:16)
[2018-12-10] MEDS: LIDOCAINE 5% (LIDODERM) PATCH TD SCH (08:17)
[2018-12-10] MEDS: LEVEMIR (INSULIN DETEMIR) 1 UNITS/0.01ML SC SCH ×2 (08:17→21:58)
[2018-12-10] MEDS: ACETAMINOPHEN 500 MG TAB PO SCH ×3 (08:18→21:57)
[2018-12-10] MEDS: BENZOCAINE 10% 9GM TUBE (ANBESOL) MT SCH ×3 (08:18→21:00)
[2018-12-10] MEDS: DOCUSATE SODIUM 100 MG CAP PO SCH ×2 (08:18→21:00)
[2018-12-10] MEDS: ANALGESIC BALM CRM 120 GM TOP SCH ×2 (08:18→21:00)
[2018-12-10] MEDS ORDERED: **hydrALAZINE** 50 MG TAB PO SCH (09:00)
[2018-12-10 14:00] VITALS: BP 170/89
[2018-12-10] MEDS: WARFARIN SOD 5 MG TAB PO SCH (17:58)
[2018-12-10 20:00] VITALS: BP 162/90
[2018-12-10] MEDS: AMITRIPTYLINE 50 MG TAB PO SCH (21:56)
[2018-12-10] MEDS: ATORVASTATIN 10 MG TAB PO SCH (21:56)
[2018-12-10] MEDS: CETIRIZINE (ZyrTEC) 10 MG TAB PO SCH (21:57)
[2018-12-10] MEDS: SENNA 8.6 MG TAB (SENOKOT) PO SCH (21:57)
[2018-12-10] MEDS: **NOTE PATIENT COMMENT** MISC XX SCH (21:58)
[2018-12-11] MEDS: oxyCODONE 5MG TAB PO PRN ×3 (04:41→18:07)
[2018-12-11 06:44] VITALS: BP 170/69
[2018-12-11 07:38] LABS: INR 2.29
[2018-12-11] MEDS: LIDOCAINE 5% (LIDODERM) PATCH TD SCH (08:42)
[2018-12-11] MEDS: HumaLOG INSULIN (NovoLOG) PER UNIT SC SCH ×7 (08:43→20:27)
[2018-12-11] MEDS: LEVEMIR (INSULIN DETEMIR) 1 UNITS/0.01ML SC SCH ×2 (08:43→21:00)
[2018-12-11] MEDS: ASPIRIN 81 MG CHEW TABLET PO SCH (08:44)
[2018-12-11] MEDS: GABAPENTIN 300 MG CAP PO SCH ×3 (08:44→20:57)
[2018-12-11] MEDS: **hydrALAZINE HCL** 25 MG TAB PO SCH ×2 (08:45→20:58)
[2018-12-11] MEDS: OMEPRAZOLE 20 MG CAP PO SCH (08:45)
[2018-12-11] MEDS: buPROPion **XL** TABLET 150MG (WELLBUTRIN XL) PO SCH (08:45)
[2018-12-11] MEDS: NIFEdipine 30 MG XL TAB PO SCH (08:45)
[2018-12-11] MEDS: ISOSORBIDE MON. (IMDUR) 30 MG XR TAB PO SCH (08:46)
[2018-12-11] MEDS: ACETAMINOPHEN 500 MG TAB PO SCH ×3 (08:46→21:00)
[2018-12-11] MEDS: DOCUSATE SODIUM 100 MG CAP PO SCH ×2 (08:47→20:57)
[2018-12-11] MEDS: CARVedilol 12.5 MG TAB PO SCH ×2 (08:47→20:58)
[2018-12-11] MEDS: BENZOCAINE 10% 9GM TUBE (ANBESOL) MT SCH ×3 (08:50→21:02)
--- NOTE | 2018-12-11 09:56 | IPNPDOC ---
Subjective Date Seen The patient was seen on 12/11/18. Subjective Chief Complaint/HPI Patient seen and examined at the bedside. No acute overnight events noted. Objective Physical Examination General Exam: Positive: Alert, Cooperative, No Acute Distress, Other (obese) ENT Exam: Positive: Atraumatic, Mucous membr. moist/pink Neck Exam: Negative: JVD Chest Exam: Positive: Clear to auscultation, Normal air movement Heart Exam: Positive: Rate Normal, Normal S1, Normal S2 Abdomen Exam: Positive: Normal bowel sounds, Soft; Negative: Tenderness Extremity Exam: Positive: Other (s/p Left leg BKA. Extremity wrapped in surgical dressing. ); Negative: Tenderness Psych Exam: Positive: Oriented x 3 Assessment /Plan Plan/VTE VTE Prophylaxis Ordered?: Yes Plan Left heel cellulitis with non healing ulcer s/p left BKA. -which progressed to nonhealing ulcer, in a patient with poorly controlled diabetes -s/p left BKA on 11/06 by Vascular Surgery -Rehabilitation per primary team Swollen Lymph nodes CT abd/pel noted--discussed with the patient the need to follow up as an outp atient for further histologic evaluation. The patient verbalized understanding of the same. All questions were answered to his satisfaction. Diabetes mellitus with neuropathy, nephropathy Continue insulin regimen as ordered CKD -stage 3 -creatinine stable. DVT right upper extremity -continue Coumadin - INR at goal Hypertension Continue antihypertensives as ordered Obesity with Obstructive sleep apnea - CPAP at bedtime Anxiety and depression -continue bupropion, amitryptiline. DVT Prophylaxis -fully anticoagulated with Coumadin VS, I&O, 24H, Fishbone Vital Signs/I&O Vital Signs Date Time Temp Pulse Resp B/P (MAP) Pulse Ox O2 Delivery O2 Flow Rate FiO2 12/11/18 08:47 90 170/69 12/11/18 06:44 97.4 18 93 I&O- Last 24 Hours up to 6 AM 12/11/18 05:59 Intake Total 1200 ml Output Total 1000 ml Balance 200 ml Laboratory Data 24H LABS Laboratory Tests 2 12/10/18 11:46: Bedside Glucose (Misc Panel) 113H 12/10/18 17:03: Bedside Glucose (Misc Panel) 170H 12/10/18 22:01: Bedside Glucose (Misc Panel) 268H 12/11/18 05:51: Bedside Glucose (Misc Panel) 276H 12/11/18 07:02: Prothrombin Time 25.0H, Prothromb Time International Ratio 2.29 NINA DOTSON MD Dec 11, 2018 09:56
[2018-12-11] MEDS: ANALGESIC BALM CRM 120 GM TOP SCH ×2 (10:40→21:01)
[2018-12-11 14:00] VITALS: BP 180/100
[2018-12-11 17:50] VITALS: BP 196/118
[2018-12-11] MEDS: WARFARIN SOD 5 MG TAB PO SCH (18:10)
[2018-12-11] MEDS ORDERED: LIDOCAINE 5% (LIDODERM) PATCH TD ONE (18:15)
[2018-12-11] MEDS ORDERED: CARVedilol 6.25 MG TAB PO ONE (18:15)
[2018-12-11 19:00] VITALS: BP 190/110
[2018-12-11] MEDS ORDERED: KETOROLAC TROMETHAMINE 10 MG TAB PO ONE (19:00)
[2018-12-11 20:00] VITALS: BP 144/75
[2018-12-11] MEDS: SENNA 8.6 MG TAB (SENOKOT) PO SCH (20:57)
[2018-12-11] MEDS: ATORVASTATIN 10 MG TAB PO SCH (20:57)
[2018-12-11] MEDS: AMITRIPTYLINE 50 MG TAB PO SCH (20:57)
[2018-12-11] MEDS: CETIRIZINE (ZyrTEC) 10 MG TAB PO SCH (20:57)
[2018-12-11] MEDS: **NOTE PATIENT COMMENT** MISC XX SCH (21:01)
[2018-12-12 06:00] VITALS: BP 137/93
[2018-12-12] MEDS ORDERED: **NOTE PATIENT COMMENT** MISC XX ONE (06:00)
[2018-12-12] MEDS: oxyCODONE 5MG TAB PO PRN ×4 (06:06→18:49)
[2018-12-12 07:12] LABS: INR 2.26; PROTHROMBIN TIME 24.8 SECONDS (11.8-14.0)
[2018-12-12] MEDS: ASPIRIN 81 MG CHEW TABLET PO SCH (08:45)
[2018-12-12] MEDS: buPROPion **XL** TABLET 150MG (WELLBUTRIN XL) PO SCH (08:46)
[2018-12-12] MEDS: **hydrALAZINE HCL** 25 MG TAB PO SCH ×2 (08:46→21:41)
[2018-12-12] MEDS: GABAPENTIN 300 MG CAP PO SCH ×3 (08:47→21:41)
[2018-12-12] MEDS: ACETAMINOPHEN 500 MG TAB PO SCH ×3 (08:47→21:41)
[2018-12-12] MEDS: CARVedilol 12.5 MG TAB PO SCH ×2 (08:47→21:40)
[2018-12-12] MEDS: OMEPRAZOLE 20 MG CAP PO SCH (08:48)
[2018-12-12] MEDS: ISOSORBIDE MON. (IMDUR) 30 MG XR TAB PO SCH (08:48)
[2018-12-12] MEDS: LEVEMIR (INSULIN DETEMIR) 1 UNITS/0.01ML SC SCH ×2 (08:52→21:42)
[2018-12-12] MEDS: DOCUSATE SODIUM 100 MG CAP PO SCH ×2 (08:52→21:00)
[2018-12-12] MEDS: NIFEdipine 30 MG XL TAB PO SCH (08:53)
[2018-12-12] MEDS: LIDOCAINE 5% (LIDODERM) PATCH TD SCH ×2 (08:53→21:42)
[2018-12-12] MEDS: HumaLOG INSULIN (NovoLOG) PER UNIT SC SCH ×7 (08:54→20:35)
[2018-12-12] MEDS: ANALGESIC BALM CRM 120 GM TOP SCH ×2 (09:00→21:00)
[2018-12-12] MEDS: BENZOCAINE 10% 9GM TUBE (ANBESOL) MT SCH ×3 (09:00→21:00)
--- NOTE | 2018-12-12 13:38 | IPNPDOC ---
Subjective Date Seen The patient was seen on 12/12/18. Subjective Chief Complaint/HPI Patient had a bad night yesterday . He was having severe low back pain radiating down to his left leg. he was given lidoderm patch which helped a little. Pain is better at present. Objective Physical Examination General Exam: Positive: Alert, Cooperative, No Acute Distress, Other (obese) ENT Exam: Positive: Atraumatic, Mucous membr. moist/pink Neck Exam: Negative: JVD Chest Exam: Positive: Clear to auscultation, Normal air movement Heart Exam: Positive: Rate Normal, Normal S1, Normal S2 Abdomen Exam: Positive: Normal bowel sounds, Soft; Negative: Tenderness Extremity Exam: Positive: Other (s/p Left leg BKA. Extremity wrapped in surgical dressing. ); Negative: Tenderness Psych Exam: Positive: Oriented x 3 Assessment /Plan Assessment Left heel cellulitis with non healing ulcer s/p left BKA. -which progressed to nonhealing ulcer, in a patient with poorly controlled diabetes -s/p left BKA on 11/06 by Vascular Surgery -Rehabilitation per primary team Low back pain will increase lidoderm patches to 2 for the low back Swollen Lymph nodes -CT pelvis without contrast to evaluate further -lymph nodes not palpable due to habitus -follow CT findings Diabetes mellitus with neuropathy, nephropathy -poorly controlled. -total insulin dose increased to 100 units of levemir daily -fingerstick checks with meals and coverage with sliding scale insulin -continue gabapentin and amitryptiline CKD -stage 3 -creatinine stable. -No NSAIDS please, no\\\. DVT right upper extremity -continue Coumadin - INR at goal Hypertension -remains uncontrolled -continue Coreg, Imdur, Nifedipine -will start hydralazine -continue to adjust doses and target SBP<140mmHg Obesity with Obstructive sleep apnea - CPAP at bedtime Anxiety and depression -continue bupropion, amitryptiline. DVT Prophylaxis -fully anticoagulated with Coumadin Plan/VTE VTE Prophylaxis Ordered?: Yes VS, I&O, 24H, Fishbone Vital Signs/I&O Vital Signs Date Time Temp Pulse Resp B/P (MAP) Pulse Ox O2 Delivery O2 Flow Rate FiO2 12/12/18 12:40 18 12/12/18 08:53 137/93 12/12/18 06:00 97.4 85 94 I&O- Last 24 Hours up to 6 AM 12/12/18 05:59 Intake Total 2160 ml Output Total 2400 ml Balance -240 ml Laboratory Data 24H LABS Laboratory Tests 2 12/11/18 16:54: Bedside Glucose (Misc Panel) 179H 12/11/18 20:12: Bedside Glucose (Misc Panel) 168H 12/12/18 06:43: Prothrombin Time 24.8H, Prothromb Time International Ratio 2.26 12/12/18 06:44: Bedside Glucose (Misc Panel) 312H 12/12/18 11:48: Bedside Glucose (Misc Panel) 150H GRICELDA OBANDO MD Dec 12, 2018 13:38
[2018-12-12 14:00] VITALS: BP 167/84
[2018-12-12] MEDS: WARFARIN SOD 5 MG TAB PO SCH (17:23)
[2018-12-12 20:00] VITALS: BP 144/72
[2018-12-12] MEDS: SENNA 8.6 MG TAB (SENOKOT) PO SCH (21:00)
[2018-12-12] MEDS: **NOTE PATIENT COMMENT** MISC XX SCH (21:37)
[2018-12-12] MEDS: AMITRIPTYLINE 50 MG TAB PO SCH (21:39)
[2018-12-12] MEDS: ATORVASTATIN 10 MG TAB PO SCH (21:40)
[2018-12-12] MEDS: CETIRIZINE (ZyrTEC) 10 MG TAB PO SCH (21:40)
[2018-12-13] VITALS (8 sets, daily range): BP systolic 163–210; BP diastolic 85–102
[2018-12-13 07:01] LABS: INR 2.34; PROTHROMBIN TIME 25.5 SECONDS (11.8-14.0)
[2018-12-13] MEDS ORDERED: cloNIDine HCL 0.2 MG/24 HR PATCH TOP SCH (09:00)
[2018-12-13] MEDS: HumaLOG INSULIN (NovoLOG) PER UNIT SC SCH ×7 (09:04→20:35)
[2018-12-13] MEDS: buPROPion **XL** TABLET 150MG (WELLBUTRIN XL) PO SCH (09:05)
[2018-12-13] MEDS: ASPIRIN 81 MG CHEW TABLET PO SCH (09:05)
[2018-12-13] MEDS: CARVedilol 12.5 MG TAB PO SCH ×2 (09:05→20:33)
[2018-12-13] MEDS: ISOSORBIDE MON. (IMDUR) 30 MG XR TAB PO SCH (09:06)
[2018-12-13] MEDS: **hydrALAZINE HCL** 25 MG TAB PO SCH ×3 (09:06→20:34)
[2018-12-13] MEDS: GABAPENTIN 300 MG CAP PO SCH ×3 (09:07→20:32)
[2018-12-13] MEDS: ACETAMINOPHEN 500 MG TAB PO SCH ×3 (09:07→20:32)
[2018-12-13] MEDS: NIFEdipine 30 MG XL TAB PO SCH (09:07)
[2018-12-13] MEDS: OMEPRAZOLE 20 MG CAP PO SCH (09:07)
[2018-12-13] MEDS: DOCUSATE SODIUM 100 MG CAP PO SCH ×2 (09:07→20:32)
[2018-12-13] MEDS: BENZOCAINE 10% 9GM TUBE (ANBESOL) MT SCH ×3 (09:08→20:36)
[2018-12-13] MEDS: ANALGESIC BALM CRM 120 GM TOP SCH ×2 (09:08→20:35)
[2018-12-13] MEDS: LEVEMIR (INSULIN DETEMIR) 1 UNITS/0.01ML SC SCH ×2 (09:09→20:36)
[2018-12-13] MEDS: **NOTE PATIENT COMMENT** MISC XX SCH ×2 (09:10→20:36)
[2018-12-13] MEDS: LIDOCAINE 5% (LIDODERM) PATCH TD SCH ×2 (09:10→20:34)
[2018-12-13] MEDS: oxyCODONE 5MG TAB PO PRN ×3 (09:28→21:56)
[2018-12-13] MEDS ORDERED: cloNIDine 0.1 MG TAB PO ONE (14:30)
[2018-12-13] MEDS: WARFARIN SOD 5 MG TAB PO SCH (16:30)
--- NOTE | 2018-12-13 16:56 | REPVR ---
EXAM: CT Lumbar Spine Without Contrast EXAM DATE/TIME: 12/13/2018 4:13 PM CLINICAL HISTORY: 58 years old, male; Low back pain; Additional info: Pain low back radiating down left leg TECHNIQUE: Imaging protocol: Computed tomography images of the lumbar spine without contrast. Coronal and sagittal reformatted images were created and reviewed. Radiation optimization: All CT scans at this facility use at least one of these dose optimization techniques: automated exposure control; mA and/or kV adjustment per patient size (includes targeted exams where dose is matched to clinical indication); or iterative reconstruction. COMPARISON: MRI-Spine, L.S. without con 01/22/2018 4:55 PM FINDINGS: Vertebrae: Chronic wedge compression deformity T12 again demonstrated. There is a transitional caudal segment of the lumbar spine which has been referred to as L5 on prior studies and will be considered the same on today's examination. Further evaluation with complete spine x-rays suggested in order to count vertebral bodies, in particular if surgery is anticipated. L1-L2: No disc herniation. No spinal stenosis. No neural foraminal narrowing. L2-L3: There is a moderate central spinal stenosis at L2-3 secondary to congenitally shortened pedicles, diffuse annular bulging, thickened ligamentum flavum and facet joint arthropathy. Mild bilateral lateral recess narrowing. No significant foraminal stenosis. L3-L4: There is a moderate central spinal stenosis at L3-4 secondary to congenitally shortened pedicles, diffuse annular bulging, thickened ligamentum flavum and facet joint arthropathy. No lateral recess or foraminal stenosis. L4-L5: There is a mild central spinal stenosis at L4-5 secondary to congenitally shortened pedicles, diffuse annular bulging, thickened ligamentum flavum and facet joint arthropathy. No lateral recess stenosis. Mild bilateral foraminal stenosis secondary to osteophytic encroachment. L5-S1: No disc herniation. No spinal stenosis. No neural foraminal narrowing. Soft tissues: Atherosclerotic changes in abdominal aorta. Otherwise unremarkable. IMPRESSION: 1. 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 Correlation with complete spineX ray films is suggested, particularly if surgery is anticipated. 2. Multilevel spinal stenosis as described above, moderate at L2-3, L3-4, and mild at L4-5 secondary to bulging annuli, degenerative changes in the posterior elements and congenitally shortened pedicles. 3. Mild bilateral foraminal narrowing at L5-S1 without significant central canal narrowing. Electronically signed by: Dayne Miles On 12/13/2018 16:56:16 PM
[2018-12-13] MEDS ORDERED: cloNIDine 0.2 MG TAB PO ONE (18:00)
[2018-12-13] MEDS: ATORVASTATIN 10 MG TAB PO SCH (20:31)
[2018-12-13] MEDS: SENNA 8.6 MG TAB (SENOKOT) PO SCH (20:31)
[2018-12-13] MEDS: AMITRIPTYLINE 50 MG TAB PO SCH (20:31)
[2018-12-13] MEDS: CETIRIZINE (ZyrTEC) 10 MG TAB PO SCH (20:32)
[2018-12-13] MEDS ORDERED: cloNIDine 0.1 MG TAB PO SCH (21:00)
[2018-12-14] VITALS (9 sets, daily range): BP systolic 130–210; BP diastolic 76–98
[2018-12-14] MEDS: oxyCODONE 5MG TAB PO PRN ×3 (04:14→19:10)
[2018-12-14 06:24] LABS: BASO # 0.1 10^3/uL (0.0-0.2); BASO % 1.3 % (0.0-1.0); EOS # 0.5 10^3/uL (0.0-0.50); EOS % 6.2 % (0.0-3.0); HEMATOCRIT 43.1 % (42.0-52.0); HEMOGLOBIN 12.9 g/dl (13.5-17.5); LYMPH # 1.6 10^3/uL (1.5-4.5); LYMPH % 19.2 % (24.0-44.0); MEAN CORPUSCULAR HEMOGLOBIN 23.8 pg (27.0-33.0); MEAN CORPUSCULAR HGB CONC 29.9 g/dl (32.0-36.5); MEAN CORPUSCULAR VOLUME 79.4 fl (80.0-96.0); MONO # 0.4 10^3/uL (0.0-0.8); MONO % 5.2 % (0.0-5.0); NEUTROPHILS # 5.6 10^3/uL (1.8-7.7); PLATELET COUNT, AUTOMATED 439 10^3/uL (150-450); RED BLOOD COUNT 5.43 10^6/uL (4.30-6.10); WHITE BLOOD COUNT 8.3 10^3/uL (4.0-10.0)
[2018-12-14 06:43] LABS: BILIRUBIN,TOTAL 0.2 MG/DL (0.2-1.0); CALCIUM LEVEL 9.3 MG/DL (8.5-10.1); CREATININE FOR GFR 1.73 MG/DL (0.70-1.30); GLOMERULAR FILTRATION RATE 43.4 (>56); POTASSIUM SERUM 4.7 MEQ/L (3.5-5.1); TOTAL PROTEIN 6.2 GM/DL (6.4-8.2)
[2018-12-14 06:53] LABS: INR 2.36; PROTHROMBIN TIME 25.6 SECONDS (11.8-14.0)
[2018-12-14] MEDS: HumaLOG INSULIN (NovoLOG) PER UNIT SC SCH ×7 (07:30→19:49)
[2018-12-14] MEDS: buPROPion **XL** TABLET 150MG (WELLBUTRIN XL) PO SCH (08:24)
[2018-12-14] MEDS: ISOSORBIDE MON. (IMDUR) 30 MG XR TAB PO SCH (08:25)
[2018-12-14] MEDS: **hydrALAZINE HCL** 25 MG TAB PO SCH ×3 (08:26→20:29)
[2018-12-14] MEDS: ASPIRIN 81 MG CHEW TABLET PO SCH (08:27)
[2018-12-14] MEDS: NIFEdipine 30 MG XL TAB PO SCH (08:27)
[2018-12-14] MEDS: CARVedilol 12.5 MG TAB PO SCH ×2 (08:27→20:31)
[2018-12-14] MEDS: GABAPENTIN 300 MG CAP PO SCH ×3 (08:28→20:29)
[2018-12-14] MEDS: DOCUSATE SODIUM 100 MG CAP PO SCH ×2 (08:28→20:15)
[2018-12-14] MEDS: OMEPRAZOLE 20 MG CAP PO SCH (08:28)
[2018-12-14] MEDS: ACETAMINOPHEN 500 MG TAB PO SCH ×3 (08:28→20:30)
[2018-12-14] MEDS: BENZOCAINE 10% 9GM TUBE (ANBESOL) MT SCH (08:29)
[2018-12-14] MEDS: LEVEMIR (INSULIN DETEMIR) 1 UNITS/0.01ML SC SCH ×2 (08:29→20:31)
[2018-12-14] MEDS: **NOTE PATIENT COMMENT** MISC XX SCH (08:30)
[2018-12-14] MEDS: LIDOCAINE 5% (LIDODERM) PATCH TD SCH (08:30)
[2018-12-14] MEDS: ANALGESIC BALM CRM 120 GM TOP SCH ×2 (08:30→20:15)
[2018-12-14] MEDS ORDERED: cloNIDine 0.1 MG TAB PO ONE (11:30)
--- NOTE | 2018-12-14 16:56 | IPNPDOC ---
PM&R Progress Note DATE OF SERVICE: Dec 10, 2018 [facility] Progress Note Subjective: Patient without complaints. REVIEW OF SYSTEMS: The following is a completed review of systems and has been reviewed. Review of systems otherwise unremarkable. PAIN: Patient self reports left residual limb pain EYES: no recent vision changes EARS, NOSE, & THROAT: denies dysphagia, no rhinorrhea CARDIOVASCULAR: denies chest pain/palpitations PULMONARY: Negative. Denies shortness of breath GASTROINTESTINAL: no diarrhea/constipation GENITOURINARY: no dysuria MUSCULOSKELETAL: left BKA, chronic low back pain HEMATOLOGICAL: Negative SKIN: left residual limb incision PSYCHIATRIC: Unremarkable All other review of systems found to be negative. PHYSICAL EXAMINATION: VITAL SIGNS: Please see below. GENERAL: Pleasant and cooperative. No acute distress. HEENT: PERRL. Extraocular movements intact. Clear conjunctiva CARDIOVASCULAR: Regular rate and rhythm. No murmurs, rubs, or gallops LUNGS: Clear to auscultation bilaterally. No wheezes. No rhonchi ABDOMEN: Soft, nontender, nondistended. Positive bowel sounds. Normal active bowel sounds NEUROLOGICAL: Alert and oriented times three. Cranial nerves II through XII grossly intact. Sensation grossly intact except diminished in LLE and distal RLE EXTREMITIES: 5\5 strength bilateral upper extremities. 5-\5 strength right lower extremity. 5-/5 strength in left hip flexors and knee flexors left shoulder exam- + Neers, +painful arc (improving) right knee- incision healed, no warmth/swelling, ROM functional, palpable click with extension SKIN: left residual limb incision c/d/i without induration ASSESSMENT:58-year-old M with past medical history of HTN, DM, chronic wound who presents status post left BKA. PLAN: 1. Rehab: room privileges from wheelchair level, doing own exercise program whi le awaiting housing -goal is to stretch and strengthen his residual limb, prevent knee/hip flexion c ontractures, utilize desensitization techniques, strengthen core and upper body strength for safe and effective wheelchair propulsion -mod-I for wheelchair propulsions and ADLs, will need to work on fall recovery, car transfers, and kitchen tasks- currently transitioned to outpatient 30- minutes a day program as IRF skilled therapy has been exhausted while awaiting safe housing 2. Neuro: peripheral neuropathy- c/u tight glycemic control 3. Cardio: pmh HTN and HLD, c/u meds, dosing of hydralazine increased per medicine, c/u beta catalina, Imdur, and clonidine for elevated sBPs- ASA and statin, medicine consulted to assist in management, recs aprpeciated 4. Resp: encourage incentive spirometry, may use home CPAP for SARAH 5. Endo: pmh DM, c/u Levemir and ISS, c/u pre-meal standing coverage and increased evening Levemir increased 6. Vasc: pmh RUE DVT, s/p Lovenox bridge c/u Coumadin, monitor daily INRs -left BKA, wound healing well, CRP trending down 7. : monitor PVRs 8. GI ppx: omeprazole 9. Pain: oxycodone, c/u Elavil at 50mg qHS, and Tylenol -c/u Gabapentin 300mg TID -lidoderm patch to left shoulder and kinesiotape -menthol salicylate to right knee for suspected osteoarthritis 10. DVT ppx: s/p Lovenox bridge, c/u warfarin 11. Skin: BID dressing changes- chace removed per vascular surgeyr, sutures to be removed in 1 week (12/13/18) 12. Hyperkalemia- s/p Kayexalate, improving 12. Dispo: Patient currently does not have safe dispo, still awaiting housing from [facility], once obtained we are required to do a home eval- patient has met all of his short-term goals for mobility and at this time is declining ambulation on his right leg due to pain- no longer receiving IRF level of skilled therapy while waiting for [facility] to find appropriate housing for patient-another apartment has been suggested, home evaluation not safe or accessible, [facility] aware and working on finding new housing Allergies Coded Allergies: povidone-iodine (Verified Allergy, Unknown, 08/18/18) soap (Verified Allergy, Unknown, 08/18/18) Vital Signs Vital Signs Date Time Temp Pulse Resp B/P (MAP) Pulse Ox O2 Delivery O2 Flow Rate FiO2 12/14/18 14:00 96.7 75 12 130/85 (100) 95 Laboratory Data CBC/BMP Laboratory Tests 12/14/18 06:02 Red Blood Count 5.43, Mean Corpuscular Volume 79.4 L, Mean Corpuscular Hemoglobin 23.8 L, Mean Corpuscular Hemoglobin Concent 29.9 L, Red Cell Distribution Width 17.7 H, Neutrophils (%) (Auto) 67.0 H, Lymphocytes (%) (Auto) 19.2 L, Monocytes (%) (Auto) 5.2 H, Eosinophils (%) (Auto) 6.2 H, Basophils (%) (Auto) 1.3 H, Neutrophils # (Auto) 5.6, Lymphocytes # (Auto) 1.6, Monocytes # (Auto) 0.4, Eosinophils # (Auto) 0.5, Basophils # (Auto) 0.1, Calcium Level 9.3, Aspartate Amino Transf (AST/SGOT) 13, Alanine Aminotransferase (ALT/SGPT) 17, Al kaline Phosphatase 83, Total Bilirubin 0.2, Total Protein 6.2 L, Albumin 3.0 L Labs 24H Laboratory Tests 2 12/13/18 17:02: Bedside Glucose (Misc Panel) 200H 12/13/18 20:08: Bedside Glucose (Misc Panel) 254H 12/14/18 06:02: Immature Granulocyte % (Auto) 1.1, White Blood Count 8.3, Red Blood Count 5.43, Hemoglobin 12.9L, Hematocrit 43.1, Mean Corpuscular Volume 79.4L, Mean Corpuscular Hemoglobin 23.8L, Mean Corpuscular Hemoglobin Concent 29.9L, Red Cell Distribution Width 17.7H, Platelet Count 439, Neutrophils (%) (Auto) 67.0H, Lymphocytes (%) (Auto) 19.2L, Monocytes (%) (Auto) 5.2H, Eosinophils (%) (Auto) 6.2H, Basophils (%) (Auto) 1.3H, Neutrophils # (Auto) 5.6, Lymphocytes # (Auto) 1.6, Monocytes # (Auto) 0.4, Eosinophils # (Auto) 0.5, Basophils # (Auto) 0.1, Nucleated Red Blood Cells % (auto) 0.0, Prothrombin Time 25.6H, Prothromb Time International Ratio 2.36, Anion Gap 4L, Glomerular Filtration Rate 43.4L, Blood Urea Nitrogen 30H, Creatinine 1.73H, Sodium Level 141, Potassium Level 4.7, Chloride Level 113H, Carbon Dioxide Level 24, Calcium Level 9.3, Aspartate Amino Transf (AST/SGOT) 13, Alanine Aminotransferase (ALT/SGPT) 17, Alkaline Phosphatase 83, Total Bilirubin 0.2, Total Protein 6.2L, Albumin 3.0L, Albumin/Globulin Ratio 0.94L 12/14/18 06:06: Bedside Glucose (Misc Panel) 281H 12/14/18 11:34: Bedside Glucose (Misc Panel) 194H 12/14/18 16:29: Bedside Glucose (Misc Panel) 167H Current Medications Current Medications Current Medications Acetaminophen (Tylenol Tab) 500 mg TID PO Last administered on 12/14/18 08:28; Start 12/10/18 at 16:00 Acetaminophen (Tylenol Tab) 1,000 mg TID PO Last administered on 12/10/18 08:18; Start 11/16/18 at 21:00; Stop 12/10/18 at 11:11; Status DC Amitriptyline HCl (Elavil) 25 mg QHS PO Last administered on 11/16/18at 20:34; Start 11/16/18 at 21:00; Stop 11/17/18 at 14:27; Status DC Amitriptyline HCl (Elavil) 50 mg QHS PO Last administered on 11/18/18at 21:38; Start 11/17/18 at 21:00; Stop 11/19/18 at 09:55; Status DC Amitriptyline HCl (Elavil) 50 mg QHS PO Last administered on 12/13/18 20:31; Start 11/19/18 at 21:00 Amlodipine Besylate (Norvasc) 5 mg BID PO Last administered on 11/17/18at 08:16; Start 11/16/18 at 21:00; Stop 11/17/18 at 14:27; Status DC Apixaban (Eliquis) 5 mg BID PO ; Start 11/19/18 at 21:00; Stop 11/19/18 at 21:00; Status DC Aspirin (Aspirin Chewable) 81 mg DAILY PO Last administered on 12/14/18 08:27; Start 11/17/18 at 09:00 Atorvastatin Calcium (Lipitor) 10 mg QHS PO Last administered on 12/13/18at 20:31; Start 11/16/18 at 21:00 Benzocaine (Anbesol Gel) 1 dose TID MT Last administered on 12/13/18at 20:36; Start 12/04/18 at 16:00 Bisacodyl (Dulcolax Suppository) 10 mg DAILYPRN PRN [place] CONSTIPATION; Start 11/16/18 at 18:45 Bupropion HCl (Wellbutrin Xl) 150 mg DAILY PO Last administered on 12/14/18at 08:24; Start 11/17/18 at 09:00 Calcium Carbonate (Tums) 1,000 mg Q4HP PRN PO HEARTBURN; Start 11/16/18 at 18:45 Carvedilol (COReg) 25 mg BID PO Last administered on 12/14/18at 08:27; Start 11/16/18 at 21:00 Cetirizine HCl (ZyrTEC) 5 mg QHS PO Last administered on 12/13/18at 20:32; St art 11/16/18 at 21:00 Clonidine HCl (Catapres) 0.1 mg BID PO ; Start 12/13/18 at 21:00; Stop 12/13/18 at 21:00; Status DC Clonidine HCl (Catapres) 0.1 mg TID PO ; Start 12/14/18 at 16:00 Clonidine HCl (Bibmemkc-Qtc-7) 1 ea Mo@09 TOP Last administered on 12/13/18at 21:57; Start 12/13/18 at 09:00; Stop 12/14/18 at 09:12; Status DC Dextrose (Dextrose 50%) 25 ml ASDIRECTED PRN IV SEE LABEL COMMENTS; Start 11/16/18 at 18:45 Docusate Sodium (Colace) 100 mg BID PO Last administered on 12/13/18at 20:32; Start 11/16/18 at 21:00 Enalapril Maleate (Vasotec) 10 mg BID PO ; Start 11/22/18 at 21:00; Stop 11/22/18 at 21:00; Status DC Enalapril Maleate (Vasotec) 20 mg BID PO Last administered on 11/22/18at 08:55; Start 11/16/18 at 21:00; Stop 11/22/18 at 10:07; Status DC Enoxaparin Sodium (Lovenox) 150 mg Q12H SC Last administered on 11/24/18at 08:22; Start 11/16/18 at 21:00; Stop 11/24/18 at 10:26; Status DC Gabapentin (Neurontin) 300 mg TID PO Last administered on 12/14/18at 08:28; Start 11/18/18 at 21:00 Glucagon (Glucagon) 1 mg ASDIRECTED PRN SC SEE LABEL COMMENTS; Start 11/16/18 at 18:45 Glucose (Glucose) 16 GM ASDIRECTED PRN PO SEE LABEL COMMENTS; Start 11/16/18 at 18:45 Home Med (Med Rec Complete!) ASDIRECTED XX ; Start 11/16/18 at 16:00; Stop 11/16/18 at 16:00; Status DC Hydralazine HCl (Apresoline) 25 mg Q12H PO Last administered on 12/08/18at 08:46; Start 12/07/18 at 09:00; Stop 12/08/18 at 10:15; Status DC Hydralazine HCl (Apresoline) 50 mg Q12H PO Last administered on 12/09/18at 20:46; Start 12/08/18 at 21:00; Stop 12/09/18 at 21:59; Status DC Hydralazine HCl (Apresoline) 75 mg BID PO ; Start 12/10/18 at 09:00; Stop 12/10/18 at 09:00; Status DC Hydralazine HCl (Apresoline) 75 mg BID PO Last administered on 12/13/18at 09:06; Start 12/10/18 at 09:00; Stop 12/13/18 at 15:55; Status DC Hydralazine HCl (Apresoline) 75 mg TID PO Last administered on 12/14/18at 08:26; Start 12/13/18 at 16:00 Insulin Detemir (Levemir Insulin) 10 units DAILY SC Last administered on at 11:01; Start 12/01/18 at 09:00; Stop 12/01/18 at 12:31; Status DC Insulin Detemir (Levemir Insulin) 10 units QHS SC Last administered on 11/17/18at 21:09; Start 11/16/18 at 21:00; Stop 11/18/18 at 09:52; Status DC Insulin Detemir (Levemir Insulin) 15 units QHS SC Last administered on 11/23/18 21:53; Start 11/18/18 at 21:00; Stop 11/24/18 at 10:26; Status DC Insulin Detemir (Levemir Insulin) 20 units DAILY SC Last administered on 12/06/18 09:31; Start 12/06/18 at 09:00; Stop 12/07/18 at 07:36; Status DC Insulin Detemir (Levemir Insulin) 20 units QHS SC Last administered on 11/29/18at 21:11; Start 11/24/18 at 21:00; Stop 11/30/18 at 11:00; Status DC Insulin Detemir (Levemir Insulin) 30 units QHS SC Last administered on 11/30/18 21:55; Start 11/30/18 at 21:00; Stop 12/01/18 at 12:31; Status DC Insulin Detemir (Levemir Insulin) 35 units DAILY SC Last administered on 12/07/18at 08:55; Start 12/07/18 at 09:00; Stop 12/08/18 at 07:36; Status DC Insulin Detemir (Levemir Insulin) 40 units QHS SC Last administered on 12/01/18 21:49; Start 12/01/18 at 21:00; Stop 12/02/18 at 10:06; Status DC Insulin Detemir (Levemir Insulin) 45 units DAILY SC Last administered on 12/09/18 07:44; Start 12/08/18 at 09:00; Stop 12/09/18 at 21:59; Status DC Insulin Detemir (Levemir Insulin) 50 units DAILY SC Last administered on 12/14/18 08:29; Start 12/10/18 at 09:00 Insulin Detemir (Levemir Insulin) 50 units QHS SC Last administered on 12/13/18at 20:36; Start 12/10/18 at 21:00 Insulin Detemir (Levemir Insulin) 55 units QHS SC Last administered on 12/09/18at 20:45; Start 12/08/18 at 21:00; Stop 12/09/18 at 21:59; Status DC Insulin Detemir (Levemir Insulin) 65 units QHS SC Last administered on 12/07/18at 21:56; Start 12/07/18 at 21:00; Stop 12/08/18 at 07:36; Status DC Insulin Detemir (Levemir Insulin) 68 units QHS SC Last administered on 12/03/18at 21:12; Start 12/02/18 at 21:00; Stop 12/04/18 at 13:34; Status DC Insulin Detemir (Levemir Insulin) 75 units QHS SC Last administered on 12/05/18at 21:36; Start 12/04/18 at 21:00; Stop 12/06/18 at 00:57; Status DC Insulin Detemir (Levemir Insulin) 80 units QHS SC Last administered on 12/06/18at 21:07; Start 12/06/18 at 21:00; Stop 12/07/18 at 07:36; Status DC Insulin Human Lispro (HumaLOG INSULIN) 7 units AC SC Last administered on 12/14/18at 12:04; Start 12/01/18 at 17:30 Insulin Human Lispro (HumaLOG INSULIN) SEE PROTOCOL TABLE AC SC Last administered on 12/14/18at 12:04; Start 11/17/18 at 07:30 Insulin Human Lispro (HumaLOG INSULIN) SEE PROTOCOL TABLE QHS SC Last administered on 12/13/18at 20:35; Start 11/16/18 at 21:00 Isosorbide Mononitrate (Imdur) 30 mg DAILY PO Last administered on 12/14/18at 08:25; Start 11/19/18 at 11:00 Lidocaine (Lidoderm Patch) 1 patch DAILY TD Last administered on 12/13/18at 09:10; Start 11/23/18 at 09:00; Stop 12/14/18 at 09:04; Status DC Lidocaine (Lidoderm Patch) 2 patch QHS TD Last administered on 12/13/18at 20:34; Start 12/12/18 at 21:00; Stop 12/14/18 at 09:04; Status DC Magnesium Hydroxide (Milk Of Magnesia) 30 ml DAILYPRN PRN PO CONSTIPATION; Start 11/16/18 at 18:45 Menthol/Methyl Salicylate (Bengay Cream) right knee BID TOP Last administered on 12/13/18at 20:35; Start 11/23/18 at 21:00 Miscellaneous (Unresolved Clarification Entry) SEE LABEL COMMENTS DAILY XX Last administered on 12/05/18at 15:00; Start 12/05/18 at 09:00; Stop 12/05/18 at 15:00; Status DC Nifedipine (Procardia Xl) 90 mg DAILY PO Last administered on 12/14/18at 08:27; Start 11/17/18 at 09:00 Non-Formulary Medication ( See Comment Field Below ) DAILY@21 XX Last administered on 12/13/18at 20:36; Start 11/22/18 at 21:00; Stop 12/14/18 at 09:04; Status DC Non-Formulary Medication ( See Comment Field Below ) REMOVE LIDODERM PATC... DAILY XX Last administered on 12/14/18at 08:30; Start 12/13/18 at 09:00; Stop 12/14/18 at 09:06; Status DC Non-Formulary Medication ( See Comment Field Below ) REMOVE LIDODERM PATCH DAILY@0415 XX ; Start 11/23/18 at 04:15; Stop 11/23/18 at 04:15; Status DC Omeprazole (PriLOSEC) 40 mg DAILY PO Last administered on 12/14/18at 08:28; Start 11/17/18 at 09:00 Ondansetron HCl (Zofran) 4 mg Q6HP PRN PO NAUSEA; Start 11/16/18 at 18:45 Oxycodone HCl (Roxicodone, Oxyir) 5 mg Q4HP PRN PO PAIN Last administered on 11/27/18at 12:45; Start 11/27/18 at 12:00; Stop 11/29/18 at 08:50; Status DC Oxycodone HCl (Roxicodone, Oxyir) 5 mg Q6HP PRN PO PAIN Last administered on 12/14/18at 12:20; Start 11/29/18 at 12:45 Oxycodone HCl (Roxicodone, Oxyir) 10 mg Q4HP PRN PO SEVERE PAIN (PS 8-10) Last administered on 11/26/18at 12:45; Start 11/16/18 at 17:45; Stop 11/27/18 at 11:57; Status DC Senna (Senokot) 1 tab QHS PO Last administered on 12/13/18at 20:31; Start 11/16/18 at 21:00 Warfarin Sodium (Coumadin) 10 mg DAILY@1700 PO Last administered on 11/17/18at 16:19; Start 11/16/18 at 17:00; Stop 11/18/18 at 09:52; Status DC Warfarin Sodium (Coumadin) 15 mg DAILY@1700 PO Last administered on 11/21/18at 16:46; Start 11/18/18 at 17:00; Stop 11/22/18 at 07:26; Status DC Warfarin Sodium (Coumadin) 17.5 mg DAILY@1700 PO Last administered on 12/13/18at 16:30; Start 11/22/18 at 17:00 KEVIN GODOY MD Dec 14, 2018 16:56
--- NOTE | 2018-12-14 17:08 | IPNPDOC ---
PM&R Progress Note DATE OF SERVICE: Dec 14, 2018 [employer] Progress Note Subjective: Patient reports he still has low back pain that now shoots down his left limb. REVIEW OF SYSTEMS: The following is a completed review of systems and has been reviewed. Review of systems otherwise unremarkable. PAIN: Patient self reports left residual limb pain EYES: no recent vision changes EARS, NOSE, & THROAT: denies dysphagia, no rhinorrhea CARDIOVASCULAR: denies chest pain/palpitations PULMONARY: Negative. Denies shortness of breath GASTROINTESTINAL: no diarrhea/constipation GENITOURINARY: no dysuria MUSCULOSKELETAL: left BKA, chronic low back pain HEMATOLOGICAL: Negative SKIN: left residual limb incision PSYCHIATRIC: Unremarkable All other review of systems found to be negative. PHYSICAL EXAMINATION: VITAL SIGNS: Please see below. GENERAL: Pleasant and cooperative. No acute distress. HEENT: PERRL. Extraocular movements intact. Clear conjunctiva CARDIOVASCULAR: Regular rate and rhythm. No murmurs, rubs, or gallops LUNGS: Clear to auscultation bilaterally. No wheezes. No rhonchi ABDOMEN: Soft, nontender, nondistended. Positive bowel sounds. Normal active bowel sounds NEUROLOGICAL: Alert and oriented times three. Cranial nerves II through XII grossly intact. Sensation grossly intact except diminished in LLE and distal RLE EXTREMITIES: 5\5 strength bilateral upper extremities. 5-\5 strength right lower extremity. 5-/5 strength in left hip flexors and knee flexors left shoulder exam- + Neers, +painful arc (improving) right knee- incision healed, no warmth/swelling, ROM functional, palpable click with extension SKIN: left residual limb incision c/d/i without induration ASSESSMENT:58-year-old M with past medical history of HTN, DM, chronic wound who presents status post left BKA. PLAN: 1. Rehab: room privileges from wheelchair level, doing own exercise program while awaiting housing -goal is to stretch and strengthen his residual limb, prevent knee/hip flexion contractures, utilize desensitization techniques, strengthen core and upper body strength for safe and effective wheelchair propulsion -mod-I for wheelchair propulsions and ADLs, will need to work on fall recovery, car transfers, and kitchen tasks- currently transitioned to outpatient 30- minutes a day program as IRF skilled therapy has been exhausted while awaiting safe housing 2. Neuro: peripheral neuropathy- c/u tight glycemic control 3. Cardio: pmh HTN and HLD, c/u meds, dosing of hydralazine increased per medicine, c/u beta catalina, Imdur, and clonidine for elevated sBPs, suspect administration of multiple Lidoderm patches may have exacerbated rise in BP (d/c'd today) -c/u ASA and statin, medicine consulted to assist in management, recs aprpeciated 4. Resp: encourage incentive spirometry, may use home CPAP for SARAH 5. Endo: pmh DM, c/u Levemir and ISS, c/u pre-meal standing coverage and increased evening Levemir increased 6. Vasc: pmh RUE DVT, s/p Lovenox bridge c/u Coumadin, monitor daily INRs -left BKA, wound healing well, CRP trending down 7. : monitor PVRs 8. GI ppx: omeprazole 9. Pain: c/u oxycodone, c/u Elavil at 50mg qHS, and Tylenol -c/u Gabapentin 300mg TID -stop all lidoderm patches to shoulder and low back as may have contributed to rising BPs -CT spine showing spinal stenosis, suspect lumbar radiculitis, will consider medrol dosing once BPs better controlled -menthol salicylate to right knee for suspected osteoarthritis 10. DVT ppx: s/p Lovenox bridge, c/u warfarin 11. Skin: BID dressing changes- chace removed per vascular surgeyr, sutures to be removed in 1 week (12/13/18) 12. Hyperkalemia- s/p Kayexalate, improving 12. Dispo: Patient currently does not have safe dispo, still awaiting housing from [facility], once obtained we are required to do a home eval- patient has met all of his short-term goals for mobility and at this time is declining ambulation on his right leg due to pain- no longer receiving IRF level of skilled therapy while waiting for [facility] to find appropriate housing for patient-another apartment has been suggested, home evaluation not safe or accessible, [facility] aware and working on finding new housing Allergies Coded Allergies: povidone-iodine (Verified Allergy, Unknown, 08/18/18) soap (Verified Allergy, Unknown, 08/18/18) Vital Signs Vital Signs Date Time Temp Pulse Resp B/P (MAP) Pulse Ox O2 Delivery O2 Flow Rate FiO2 12/14/18 14:00 96.7 75 12 130/85 (100) 95 Laboratory Data CBC/BMP Laboratory Tests 12/14/18 06:02 Red Blood Count 5.43, Mean Corpuscular Volume 79.4 L, Mean Corpuscular Hemoglobin 23.8 L, Mean Corpuscular Hemoglobin Concent 29.9 L, Red Cell Distribution Width 17.7 H, Neutrophils (%) (Auto) 67.0 H, Lymphocytes (%) (Auto) 19.2 L, Monocytes (%) (Auto) 5.2 H, Eosinophils (%) (Auto) 6.2 H, Basophils (%) (Auto) 1.3 H, Neutrophils # (Auto) 5.6, Lymphocytes # (Auto) 1.6, Monocytes # (Auto) 0.4, Eosinophils # (Auto) 0.5, Basophils # (Auto) 0.1, Calcium Level 9.3, Aspartate Amino Transf (AST/SGOT) 13, Alanine Aminotransferase (ALT/SGPT) 17, Alkaline Phosphatase 83, Total Bilirubin 0.2, Total Protein 6.2 L, Albumin 3.0 L Labs 24H Laboratory Tests 2 12/13/18 17:02: Bedside Glucose (Misc Panel) 200H 12/13/18 20:08: Bedside Glucose (Misc Panel) 254H 12/14/18 06:02: Immature Granulocyte % (Auto) 1.1, White Blood Count 8.3, Red Blood Count 5.43, Hemoglobin 12.9L, Hematocrit 43.1, Mean Corpuscular Volume 79.4L, Mean Corpuscular Hemoglobin 23.8L, Mean Corpuscular Hemoglobin Concent 29.9L, Red Cell Distribution Width 17.7H, Platelet Count 439, Neutrophils (%) (Auto) 67.0H, Lymphocytes (%) (Auto) 19.2L, Monocytes (%) (Auto) 5.2H, Eosinophils (%) (Auto) 6.2H, Basophils (%) (Auto) 1.3H, Neutrophils # (Auto) 5.6, Lymphocytes # (Auto) 1.6, Monocytes # (Auto) 0.4, Eosinophils # (Auto) 0.5, Basophils # (Auto) 0.1, Nucleated Red Blood Cells % (auto) 0.0, Prothrombin Time 25.6H, Prothromb Time International Ratio 2.36, Anion Gap 4L, Glomerular Filtration Rate 43.4L, Blood Urea Nitrogen 30H, Creatinine 1.73H, Sodium Level 141, Potassium Level 4.7, Chloride Level 113H, Carbon Dioxide Level 24, Calcium Level 9.3, Aspartate Amino Transf (AST/SGOT) 13, Alanine Aminotransferase (ALT/SGPT) 17, Alkaline Phosphatase 83, Total Bilirubin 0.2, Total Protein 6.2L, Albumin 3.0L, Albumin/Globulin Ratio 0.94L 12/14/18 06:06: Bedside Glucose (Misc Panel) 281H 12/14/18 11:34: Bedside Glucose (Misc Panel) 194H 12/14/18 16:29: Bedside Glucose (Misc Panel) 167H Current Medications Current Medications Current Medications Acetaminophen (Tylenol Tab) 500 mg TID PO Last administered on 12/14/18 08:28; Start 12/10/18 at 16:00 Acetaminophen (Tylenol Tab) 1,000 mg TID PO Last administered on 12/10/18 08:18; Start 11/16/18 at 21:00; Stop 12/10/18 at 11:11; Status DC Amitriptyline HCl (Elavil) 25 mg QHS PO Last administered on 11/16/18at 20:34; Start 11/16/18 at 21:00; Stop 11/17/18 at 14:27; Status DC Amitriptyline HCl (Elavil) 50 mg QHS PO Last administered on 11/18/18at 21:38; Start 11/17/18 at 21:00; Stop 11/19/18 at 09:55; Status DC Amitriptyline HCl (Elavil) 50 mg QHS PO Last administered on 12/13/18at 20:31; Start 11/19/18 at 21:00 Amlodipine Besylate (Norvasc) 5 mg BID PO Last administered on 11/17/18at 08:16; Start 11/16/18 at 21:00; Stop 11/17/18 at 14:27; Status DC Apixaban (Eliquis) 5 mg BID PO ; Start 11/19/18 at 21:00; Stop 11/19/18 at 21:00; Status DC Aspirin (Aspirin Chewable) 81 mg DAILY PO Last administered on 7/23/19at 08:27; Start 11/17/18 at 09:00 Atorvastatin Calcium (Lipitor) 10 mg QHS PO Last administered on 12/13/18 20:31; Start 11/16/18 at 21:00 Benzocaine (Anbesol Gel) 1 dose TID MT Last administered on 12/13/18 20:36; Start 12/04/18 at 16:00 Bisacodyl (Dulcolax Suppository) 10 mg DAILYPRN PRN DE CONSTIPATION; Start 11/16/18 at 18:45 Bupropion HCl (Wellbutrin Xl) 150 mg DAILY PO Last administered on 12/14/18 08:24; Start 11/17/18 at 09:00 Calcium Carbonate (Tums) 1,000 mg Q4HP PRN PO HEARTBURN; Start 11/16/18 at 18:45 Carvedilol (COReg) 25 mg BID PO Last administered on 12/14/18 08:27; Start 11/16/18 at 21:00 Cetirizine HCl (ZyrTEC) 5 mg QHS PO Last administered on 12/13/18 20:32; Start 11/16/18 at 21:00 Clonidine HCl (Catapres) 0.1 mg BID PO ; Start 12/13/18 at 21:00; Stop 12/13/18 at 21:00; Status DC Clonidine HCl (Catapres) 0.1 mg TID PO ; Start 12/14/18 at 16:00 Clonidine HCl (Iilvedyo-Ndi-0) 1 ea Mo@09 TOP Last administered on 12/13/18at 21:57; Start 12/13/18 at 09:00; Stop 12/14/18 at 09:12; Status DC Dextrose (Dextrose 50%) 25 ml ASDIRECTED PRN IV SEE LABEL COMMENTS; Start 11/16/18 at 18:45 Docusate Sodium (Colace) 100 mg BID PO Last administered on 12/13/18 20:32; Start 11/16/18 at 21:00 Enalapril Maleate (Vasotec) 10 mg BID PO ; Start 11/22/18 at 21:00; Stop 11/22/18 at 21:00; Status DC Enalapril Maleate (Vasotec) 20 mg BID PO Last administered on 11/22/18at 08:55; Start 11/16/18 at 21:00; Stop 11/22/18 at 10:07; Status DC Enoxaparin Sodium (Lovenox) 150 mg Q12H SC Last administered on 11/24/18at 08:22; Start 11/16/18 at 21:00; Stop 11/24/18 at 10:26; Status DC Gabapentin (Neurontin) 300 mg TID PO Last administered on 12/14/18at 08:28; Start 11/18/18 at 21:00 Glucagon (Glucagon) 1 mg ASDIRECTED PRN SC SEE LABEL COMMENTS; Start 11/16/18 at 18:45 Glucose (Glucose) 16 GM ASDIRECTED PRN PO SEE LABEL COMMENTS; Start 11/16/18 at 18:45 Home Med (Med Rec Complete!) ASDIRECTED XX ; Start 11/16/18 at 16:00; Stop 11/16/18 at 16:00; Status DC Hydralazine HCl (Apresoline) 25 mg Q12H PO Last administered on 12/08/18at 08:46; Start 12/07/18 at 09:00; Stop 12/08/18 at 10:15; Status DC Hydralazine HCl (Apresoline) 50 mg Q12H PO Last administered on 12/09/18at 20:46; Start 12/08/18 at 21:00; Stop 12/09/18 at 21:59; Status DC Hydralazine HCl (Apresoline) 75 mg BID PO ; Start 12/10/18 at 09:00; Stop 12/10/18 at 09:00; Status DC Hydralazine HCl (Apresoline) 75 mg BID PO Last administered on 12/13/18at 09:06; Start 12/10/18 at 09:00; Stop 12/13/18 at 15:55; Status DC Hydralazine HCl (Apresoline) 75 mg TID PO Last administered on 12/14/18at 08:26; Start 12/13/18 at 16:00 Insulin Detemir (Levemir Insulin) 10 units DAILY SC Last administered on 12/01/18at 11:01; Start 12/01/18 at 09:00; Stop 12/01/18 at 12:31; Status DC Insulin Detemir (Levemir Insulin) 10 units QHS SC Last administered on 11/17/18 21:09; Start 11/16/18 at 21:00; Stop 11/18/18 at 09:52; Status DC Insulin Detemir (Levemir Insulin) 15 units QHS SC Last administered on 11/23/18 21:53; Start 11/18/18 at 21:00; Stop 11/24/18 at 10:26; Status DC Insulin Detemir (Levemir Insulin) 20 units DAILY SC Last administered on 12/06/18at 09:31; Start 12/06/18 at 09:00; Stop 12/07/18 at 07:36; Status DC Insulin Detemir (Levemir Insulin) 20 units QHS SC Last administered on 11/29/18 21:11; Start 11/24/18 at 21:00; Stop 11/30/18 at 11:00; Status DC Insulin Detemir (Levemir Insulin) 30 units QHS SC Last administered on 11/30/18at 21:55; Start 11/30/18 at 21:00; Stop 12/01/18 at 12:31; Status DC Insulin Detemir (Levemir Insulin) 35 units DAILY SC Last administered on 12/07/18at 08:55; Start 12/07/18 at 09:00; Stop 12/08/18 at 07:36; Status DC Insulin Detemir (Levemir Insulin) 40 units QHS SC Last administered on 12/01/18 21:49; Start 12/01/18 at 21:00; Stop 12/02/18 at 10:06; Status DC Insulin Detemir (Levemir Insulin) 45 units DAILY SC Last administered on 12/09/18at 07:44; Start 12/08/18 at 09:00; Stop 12/09/18 at 21:59; Status DC Insulin Detemir (Levemir Insulin) 50 units DAILY SC Last administered on 12/14/18 08:29; Start 12/10/18 at 09:00 Insulin Detemir (Levemir Insulin) 50 units QHS SC Last administered on 12/13/18at 20:36; Start 12/10/18 at 21:00 Insulin Detemir (Levemir Insulin) 55 units QHS SC Last administered on 12/09/18at 20:45; Start 12/08/18 at 21:00; Stop 12/09/18 at 21:59; Status DC Insulin Detemir (Levemir Insulin) 65 units QHS SC Last administered on 12/07/18at 21:56; Start 12/07/18 at 21:00; Stop 12/08/18 at 07:36; Status DC Insulin Detemir (Levemir Insulin) 68 units QHS SC Last administered on 12/03/18at 21:12; Start 12/02/18 at 21:00; Stop 12/04/18 at 13:34; Status DC Insulin Detemir (Levemir Insulin) 75 units QHS SC Last administered on 12/05/18at 21:36; Start 12/04/18 at 21:00; Stop 12/06/18 at 00:57; Status DC Insulin Detemir (Levemir Insulin) 80 units QHS SC Last administered on 12/06/18at 21:07; Start 12/06/18 at 21:00; Stop 12/07/18 at 07:36; Status DC Insulin Human Lispro (HumaLOG INSULIN) 7 units AC SC Last administered on 12/14/18at 12:04; Start 12/01/18 at 17:30 Insulin Human Lispro (HumaLOG INSULIN) SEE PROTOCOL TABLE AC SC Last administered on 12/14/18at 12:04; Start 11/17/18 at 07:30 Insulin Human Lispro (HumaLOG INSULIN) SEE PROTOCOL TABLE QHS SC Last administered on 12/13/18at 20:35; Start 11/16/18 at 21:00 Isosorbide Mononitrate (Imdur) 30 mg DAILY PO Last administered on 12/14/18at 08:25; Start 11/19/18 at 11:00 Lidocaine (Lidoderm Patch) 1 patch DAILY TD Last administered on 12/13/18at 09:10; Start 11/23/18 at 09:00; Stop 12/14/18 at 09:04; Status DC Lidocaine (Lidoderm Patch) 2 patch QHS TD Last administered on 12/13/18at 20:34; Start 12/12/18 at 21:00; Stop 12/14/18 at 09:04; Status DC Magnesium Hydroxide (Milk Of Magnesia) 30 ml DAILYPRN PRN PO CONSTIPATION; Start 11/16/18 at 18:45 Menthol/Methyl Salicylate (Bengay Cream) right knee BID TOP Last administered on 12/13/18at 20:35; Start 11/23/18 at 21:00 Miscellaneous (Unresolved Clarification Entry) SEE LABEL COMMENTS DAILY XX Last administered on 12/05/18at 15:00; Start 12/05/18 at 09:00; Stop 12/05/18 at 15:0 0; Status DC Nifedipine (Procardia Xl) 90 mg DAILY PO Last administered on 12/14/18at 08:27; Start 11/17/18 at 09:00 Non-Formulary Medication ( See Comment Field Below ) DAILY@21 XX Last administered on 12/13/18at 20:36; Start 11/22/18 at 21:00; Stop 12/14/18 at 09:04; Status DC Non-Formulary Medication ( See Comment Field Below ) REMOVE LIDODERM PATC... DAILY XX Last administered on 12/14/18at 08:30; Start 12/13/18 at 09:00; Stop 12/14/18 at 09:06; Status DC Non-Formulary Medication ( See Comment Field Below ) REMOVE LIDODERM PATCH DAILY@0415 XX ; Start 11/23/18 at 04:15; Stop 11/23/18 at 04:15; Status DC Omeprazole (PriLOSEC) 40 mg DAILY PO Last administered on 12/14/18at 08:28; Start 11/17/18 at 09:00 Ondansetron HCl (Zofran) 4 mg Q6HP PRN PO NAUSEA; Start 11/16/18 at 18:45 Oxycodone HCl (Roxicodone, Oxyir) 5 mg Q4HP PRN PO PAIN Last administered on 11/27/18at 12:45; Start 11/27/18 at 12:00; Stop 11/29/18 at 08:50; Status DC Oxycodone HCl (Roxicodone, Oxyir) 5 mg Q6HP PRN PO PAIN Last administered on 12/14/18at 12:20; Start 11/29/18 at 12:45 Oxycodone HCl (Roxicodone, Oxyir) 10 mg Q4HP PRN PO SEVERE PAIN (PS 8-10) Last administered on 11/26/18at 12:45; Start 11/16/18 at 17:45; Stop 11/27/18 at 11:57; Status DC Senna (Senokot) 1 tab QHS PO Last administered on 12/13/18at 20:31; Start 11/16/18 at 21:00 Warfarin Sodium (Coumadin) 10 mg DAILY@1700 PO Last administered on 11/17/18at 16:19; Start 11/16/18 at 17:00; Stop 11/18/18 at 09:52; Status DC Warfarin Sodium (Coumadin) 15 mg DAILY@1700 PO Last administered on 11/21/18at 16:46; Start 11/18/18 at 17:00; Stop 11/22/18 at 07:26; Status DC Warfarin Sodium (Coumadin) 17.5 mg DAILY@1700 PO Last administered on 12/13/18at 16:30; Start 11/22/18 at 17:00 KEVIN GODOY MD Dec 14, 2018 17:08
[2018-12-14] MEDS: WARFARIN SOD 5 MG TAB PO SCH (17:25)
[2018-12-14] MEDS: cloNIDine 0.1 MG TAB PO SCH ×2 (17:25→20:30)
[2018-12-14] MEDS: tiZANidine 4 MG TAB PO SCH (19:09)
[2018-12-14] MEDS: SENNA 8.6 MG TAB (SENOKOT) PO SCH (20:15)
[2018-12-14] MEDS: ATORVASTATIN 10 MG TAB PO SCH (20:29)
[2018-12-14] MEDS: AMITRIPTYLINE 50 MG TAB PO SCH (20:29)
[2018-12-14] MEDS: CETIRIZINE (ZyrTEC) 10 MG TAB PO SCH (20:30)
[2018-12-15] MEDS: oxyCODONE 5MG TAB PO PRN ×5 (00:45→20:44)
[2018-12-15 00:46] VITALS: BP 152/92
[2018-12-15 05:47] VITALS: BP 150/70
[2018-12-15 06:46] LABS: BASO # 0.1 10^3/uL (0.0-0.2); BASO % 1.7 % (0.0-1.0); EOS # 0.5 10^3/uL (0.0-0.50); EOS % 5.7 % (0.0-3.0); HEMATOCRIT 39.9 % (42.0-52.0); LYMPH # 1.7 10^3/uL (1.5-4.5); LYMPH % 20.8 % (24.0-44.0); MEAN CORPUSCULAR HEMOGLOBIN 23.1 pg (27.0-33.0); MEAN CORPUSCULAR HGB CONC 30.1 g/dl (32.0-36.5); MEAN CORPUSCULAR VOLUME 76.9 fl (80.0-96.0); MONO # 0.5 10^3/uL (0.0-0.8); MONO % 5.4 % (0.0-5.0); NEUTROPHILS # 5.5 10^3/uL (1.8-7.7); NEUTROPHILS % 65.4 % (36.0-66.0); PLATELET COUNT, AUTOMATED 440 10^3/uL (150-450); RED BLOOD COUNT 5.19 10^6/uL (4.30-6.10); WHITE BLOOD COUNT 8.4 10^3/uL (4.0-10.0)
[2018-12-15 06:53] LABS: INR 2.61; PROTHROMBIN TIME 27.8 SECONDS (11.8-14.0)
[2018-12-15 07:09] LABS: ALBUMIN 2.9 GM/DL (3.2-5.2); BILIRUBIN,TOTAL 0.3 MG/DL (0.2-1.0); CALCIUM LEVEL 9.2 MG/DL (8.5-10.1); CREATININE FOR GFR 1.66 MG/DL (0.70-1.30); GLOMERULAR FILTRATION RATE 45.5 (>56); POTASSIUM SERUM 4.6 MEQ/L (3.5-5.1)
[2018-12-15 08:00] VITALS: BP 158/82
[2018-12-15] MEDS: HumaLOG INSULIN (NovoLOG) PER UNIT SC SCH ×7 (08:07→20:34)
[2018-12-15] MEDS: LEVEMIR (INSULIN DETEMIR) 1 UNITS/0.01ML SC SCH ×2 (08:10→20:35)
[2018-12-15] MEDS: OMEPRAZOLE 20 MG CAP PO SCH (08:12)
[2018-12-15] MEDS: ASPIRIN 81 MG CHEW TABLET PO SCH (08:12)
[2018-12-15] MEDS: NIFEdipine 30 MG XL TAB PO SCH (08:12)
[2018-12-15] MEDS: CARVedilol 12.5 MG TAB PO SCH ×2 (08:13→20:36)
[2018-12-15] MEDS: buPROPion **XL** TABLET 150MG (WELLBUTRIN XL) PO SCH (08:14)
[2018-12-15] MEDS: tiZANidine 4 MG TAB PO SCH ×3 (08:14→20:33)
[2018-12-15] MEDS: cloNIDine 0.1 MG TAB PO SCH ×3 (08:14→20:36)
[2018-12-15] MEDS: ISOSORBIDE MON. (IMDUR) 60 MG XR TAB PO SCH (08:14)
[2018-12-15] MEDS: **hydrALAZINE HCL** 25 MG TAB PO SCH ×3 (08:15→20:36)
[2018-12-15] MEDS: ACETAMINOPHEN 500 MG TAB PO SCH ×3 (08:15→20:36)
[2018-12-15] MEDS: ANALGESIC BALM CRM 120 GM TOP SCH ×2 (08:16→20:35)
[2018-12-15] MEDS: GABAPENTIN 300 MG CAP PO SCH ×3 (08:16→20:33)
--- NOTE | 2018-12-15 08:32 | IPN ---
DATE: 12/13/2018 Patient is on the acute care unit. He is continuing to have severe low back pain radiating down his left leg. He was started on two lidocaine patches, which he states helped very minimally. He states the pain is worse today, it is going down his left leg. He says that he is very, very uncomfortable with it. No loss of bowel or bladder control. He has a history of swollen lymph nodes. Will need to follow CT findings. History of diabetes poorly controlled. Have increased Levemir, continue with fingerstick, sliding scale and coverage. He has diabetic neuropathy and continues with gabapentin and amitriptyline. He had a DVT of the right upper extremity, continues on Coumadin. INR remains therapeutic at 2.34 today. He has morbid obesity with obstructive sleep apnea (SARAH), uses CPAP. The main problem today was increased blood pressure. His blood pressure this morning was 163/85, by 2 o'clock it was 202/91. He was given a dose of clonidine 0.1 mg and his hydralazine was increased to 75 mg three times a day. In addition, he was given his scheduled Imdur 30 mg daily, Coreg 25 mg which he receives twice a day. His blood pressure did not improve. He was medicated for pain. His pressure remained elevated and was 200/102. I discussed with Dr. Elizabeth Colon and she recommended clonidine 0.2 mg by mouth, which the patient received. By 1906 hours the blood pressure was improving at 178/92. The pressure in his head he stated was slightly lessened. CT of the lumbar spine showed transitional caudal segment of the lumbar spine, which has been termed L5 on prior studies, multilevel spinal stenosis, moderate L2-3, 3-4, mild at L4-5 secondary to bulging. Mild bilateral foraminal narrowing at L5-S1. The patient's blood sugar was 254 this evening. He was covered with sliding scale. Clonidine patch was started at 2157 hours. Will monitor blood pressure closely. The patient had no blurred or double vision. No tingling or numbness. No weakness in his extremities. OBJECTIVE: Blood pressure 178/92. Patient is alert and oriented times three. Pupils equal and reactive to light, extraocular movements intact. Pharynx, tongue and gums are pink and moist. Tongue is midline. Neck is supple without lymphadenopathy. Chest is clear to auscultation. Heart is regular. Abdomen benign. Bowel sounds positive. Extremities status post left below knee amputation, dressing dry and intact. IMPRESSION/PLAN: Status post left below knee amputation on 11/06/2018 by vascular surgery. Doing well. Rehabilitation per rehab team. Low back pain. CT scan done, see report. Continue with Lidoderm patches. Pain medication per Dr. Mclaughlin. Swollen lymph nodes. Mild inguinal lymphadenopathy. See CT report. Diabetes in poor control. Continue diabetic education. Continue Levemir and sliding scale. Ensure patient is able to do this upon discharge. Continue gabapentin and amitriptyline for neuropathy. Chronic kidney disease (CKD) stage III. No NSAIDs. The patient has been advised and verbalized agreement and understanding. Deep vein thrombosis (DVT) right upper extremity. Continue Coumadin, INR is therapeutic. Hypertension. Remains uncontrolled. Hydralazine has been increased. Continue Coreg, Imdur and nifedipine. Clonidine patch has been added. Obesity with obstructive sleep apnea (SARAH). Continue CPAP. Anxiety/depression. Continue ibuprofen and amitriptyline. Deep vein thrombosis (DVT) prophylaxis. Patient is fully anticoagulated with Coumadin.
[2018-12-15] MEDS: DOCUSATE SODIUM 100 MG CAP PO SCH (09:00)
[2018-12-15] MEDS ORDERED: TIZA4TAB4 PO (09:55)
[2018-12-15] MEDS ORDERED: OMEP-218 PO (09:55)
[2018-12-15] MEDS ORDERED: AMIT50TA PO (09:55)
[2018-12-15] MEDS ORDERED: OXYCO5TA PO (09:55)
[2018-12-15] MEDS ORDERED: COUM1TAB17 PO (09:55)
[2018-12-15] MEDS ORDERED: CARV12.5 PO (09:55)
[2018-12-15] MEDS ORDERED: CETI10TA PO (09:55)
[2018-12-15] MEDS ORDERED: HYDR25TA PO (09:55)
[2018-12-15] MEDS ORDERED: NIFE30TA7 PO (09:55)
[2018-12-15] MEDS ORDERED: INSUDET SC ×2 (09:55)
[2018-12-15] MEDS ORDERED: ASPI81CH8 PO (09:55)
[2018-12-15] MEDS ORDERED: GABA-843 PO (09:55)
[2018-12-15] MEDS ORDERED: CLONI1TA PO (09:55)
[2018-12-15] MEDS ORDERED: BUPR150T3 PO (09:55)
[2018-12-15] MEDS ORDERED: ISOS60TA2 PO (09:55)
[2018-12-15] MEDS ORDERED: ATOR1TAB19 PO (09:55)
[2018-12-15] MEDS ORDERED: INSUHUMDS SC (09:55)
[2018-12-15 14:00] VITALS: BP 132/76
--- NOTE | 2018-12-15 14:38 | IPNPDOC ---
Date Seen The patient was seen on 12/15/18. Progress Note SUBJECTIVE: Patient complains of back pain. He tells me that he has a slipped disc in that he is on good pain medication at this time. That he will see a surgeon regarding this on the outpatient setting. He otherwise denies complaints looking forward to going home denies chest pain shortness of breath nausea vomiting fevers or chills. He denies any further pain in his inguinal region OBJECTIVE PHYSICAL EXAMINATION: VITAL SIGNS: Please see below. GENERAL: Pleasant obese elderly appearing man sitting in bed awake alert oriented speaking in complete sentences no acute distress HEENT: Moist mucous membranes no elevation in CVP CARDIOVASCULAR: S1 S2 regular no additional heart sounds appreciated. RESPIRATORY: Clear to auscultation bilaterally. ABDOMINAL: Bowel sounds present abdomen soft and nontender grossly obese EXTREMITIES: No clubbing cyanosis or edema status post BKA on the left stitches removed today incision is clean dry and intact NEUROLOGICAL: Spontaneously moves all 4 extremities cranial 2 through 12 grossly intact no gross focal deficits appreciated PSYCHOLOGICAL: Appropriate LABORATORY DATA, MICROBIOLOGY: Please see below. IMAGING STUDIES: CT scan abdomen and pelvis:There is mild pelvic and left inguinal lymphadenopathy as above. Consider histologic analysis left inguinal lymph node which is the largest lymph node seen. Lumbar spine CT:1. 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 Correlation with complete spineX ray films is suggested, particularly if surgery is anticipated. 2. Multilevel spinal stenosis as described above, moderate at L2-3, L3-4, and mild at L4-5 secondary to bulging annuli, degenerative changes in the posterior elements and congenitally shortened pedicles. 3. Mild bilateral foraminal narrowing at L5-S1 without significant central canal narrowing. ASSESSMENT AND PLAN: This is a 58-year-old man status post BKA currently admitted to a PROBLEMS: 1. Tender left inguinal nodes: Appears to have resolved no further complaints at this time continue to monitor on the outpatient setting 2. Back pain: Chronic but acutely worse at this time he is on increased pain regimen his symptoms are well-controlled agree with outpatient follow-up 3. Uncontrolled diabetes: His a.m. fasting glucose has been persistently el evated he may require further up titration as dose he tells me that the plan is for him to be discharged home tomorrow I advised him on how to complete further up titration while at home. 4. Right upper Extremity DVT: Continue with Coumadin therapeutic. 5. Hypertension: Continue with Coreg Imdur nifedipine will need outpatient follow-up to ensure optimization 6. Obstructive sleep apnea: Continue with CPAP while sleeping 7. Chronic kidney disease: Stable 8. Morbid obesity:, Dictating care 9. Mood disorder: Continue with amitriptyline DVT prophylaxis: Coumadin DISPOSITION: As per physiatry . VS, I&O, 24H, Fishbone Vital Signs/I&O Vital Signs Date Time Temp Pulse Resp B/P (MAP) Pulse Ox O2 Delivery O2 Flow Rate FiO2 12/15/18 11:56 12 12/15/18 08:12 158/82 12/15/18 05:47 97.9 71 95 I&O- Last 24 Hours up to 6 AM 12/15/18 06:00 Intake Total 900 ml Output Total 1450 ml Balance -550 ml Laboratory Data 24H LABS Laboratory Tests 2 12/14/18 16:29: Bedside Glucose (Misc Panel) 167H 12/14/18 19:47: Bedside Glucose (Misc Panel) 231H 12/15/18 06:13: Bedside Glucose (Misc Panel) 270H 12/15/18 06:18: Immature Granulocyte % (Auto) 1.0, White Blood Count 8.4, Red Blood Count 5.19, Hemoglobin 12.0L, Hematocrit 39.9L, Mean Corpuscular Volume 76.9L, Mean Corpuscular Hemoglobin 23.1L, Mean Corpuscular Hemoglobin Concent 30.1L, Red Cell Distribution Width 17.4H, Platelet Count 440, Neutrophils (%) (Auto) 65.4, Lymphocytes (%) (Auto) 20.8L, Monocytes (%) (Auto) 5.4H, Eosinophils (%) (Auto) 5.7H, Basophils (%) (Auto) 1.7H, Neutrophils # (Auto) 5.5, Lymphocytes # (Auto) 1.7, Monocytes # (Auto) 0.5, Eosinophils # (Auto) 0.5, Basophils # (Auto) 0.1, Nucleated Red Blood Cells % (auto) 0.0, Prothrombin Time 27.8H, Prothromb Time International Ratio 2.61, Anion Gap 5L, Glomerular Filtration Rate 45.5L, Blood Urea Nitrogen 29H, Creatinine 1.66H, Sodium Level 142, Potassium Level 4.6, Chloride Level 113H, Carbon Dioxide Level 24, Calcium Level 9.2, Aspartate Amino Transf (AST/SGOT) 10, Alanine Aminotransferase (ALT/SGPT) 16, Alkaline Phosphatase 74, Total Bilirubin 0.3, Total Protein 6.0L, Albumin 2.9L, Albumin /Globulin Ratio 0.94L 12/15/18 11:43: Bedside Glucose (Misc Panel) 111H CBC/BMP Laboratory Tests 12/15/18 06:18 Red Blood Count 5.19, Mean Corpuscular Volume 76.9 L, Mean Corpuscular Hemoglobin 23.1 L, Mean Corpuscular Hemoglobin Concent 30.1 L, Red Cell Dis tribution Width 17.4 H, Neutrophils (%) (Auto) 65.4, Lymphocytes (%) (Auto) 20.8 L, Monocytes (%) (Auto) 5.4 H, Eosinophils (%) (Auto) 5.7 H, Basophils (%) (Auto) 1.7 H, Neutrophils # (Auto) 5.5, Lymphocytes # (Auto) 1.7, Monocytes # (Auto) 0.5, Eosinophils # (Auto) 0.5, Basophils # (Auto) 0.1, Calcium Level 9.2, Aspartate Amino Transf (AST/SGOT) 10, Alanine Aminotransferase (ALT/SGPT) 16, Alkaline Phosphatase 74, Total Bilirubin 0.3, Total Protein 6.0 L, Albumin 2.9 L SUE JENSEN MD Dec 15, 2018 14:38
--- NOTE | 2018-12-15 14:53 | IPNPDOC ---
Text Note Date of Service The patient was seen on 12/15/18. NOTE Vascular Surgery Dr Escobar. The patient is status post left lower extremity BKA as per Dr. Escobar 11/06/18. Patient continues to recover well and is anticipated to discharge 12/16/18. Stump has been healing well. Parag were removed last week. I'm requested to reevaluate the patient today to remove his sutures. The patient voices no concerns. The stump was noted to be well-healed. Sutures were subsequently removed. The patient tolerated well. Dry dressing was reapplied with Omar wrap. Plan is for outpatient follow-up in vascular surgery clinic in 7-10 days. VS,Fishbone, I+O VS, Fishbone, I+O Laboratory Tests 12/15/18 06:18 Red Blood Count 5.19, Mean Corpuscular Volume 76.9 L, Mean Corpuscular Hemoglobin 23.1 L, Mean Corpuscular Hemoglobin Concent 30.1 L, Red Cell Distribution Width 17.4 H, Neutrophils (%) (Auto) 65.4, Lymphocytes (%) (Auto) 20.8 L, Monocytes (%) (Auto) 5.4 H, Eosinophils (%) (Auto) 5.7 H, Basophils (%) (Auto) 1.7 H, Neutrophils # (Auto) 5.5, Lymphocytes # (Auto) 1.7, Monocytes # (Auto) 0.5, Eosinophils # (Auto) 0.5, Basophils # (Auto) 0.1, Calcium Level 9.2, Aspartate Amino Transf (AST/SGOT) 10, Alanine Aminotransferase (ALT/SGPT) 16, Alkaline Phosphatase 74, Total Bilirubin 0.3, Total Protein 6.0 L, Albumin 2.9 L Vital Signs Date Time Temp Pulse Resp B/P (MAP) Pulse Ox O2 Delivery O2 Flow Rate FiO2 12/15/18 14:00 97.4 86 18 132/76 (94) 95 I&O- Last 24 Hours up to 6 AM 12/15/18 06:00 Intake Total 900 ml Output Total 1450 ml Balance -550 ml Samara Nagel Dec 15, 2018 14:53
--- NOTE | 2018-12-15 15:07 | IPNPDOC ---
PM&R Progress Note DATE OF SERVICE: Dec 15, 2018 [employer] Progress Note Subjective: Patient reports his back pain and radiating left leg pain is much better today and is ready to go home tomorrow once his BP is stable for 24 hours. REVIEW OF SYSTEMS: The following is a completed review of systems and has been reviewed. Review of systems otherwise unremarkable. PAIN: Patient self reports left residual limb pain EYES: no recent vision changes EARS, NOSE, & THROAT: denies dysphagia, no rhinorrhea CARDIOVASCULAR: denies chest pain/palpitations PULMONARY: Negative. Denies shortness of breath GASTROINTESTINAL: no diarrhea/constipation GENITOURINARY: no dysuria MUSCULOSKELETAL: left BKA, chronic low back pain HEMATOLOGICAL: Negative SKIN: left residual limb incision PSYCHIATRIC: Unremarkable All other review of systems found to be negative. PHYSICAL EXAMINATION: VITAL SIGNS: Please see below. GENERAL: Pleasant and cooperative. No acute distress. HEENT: PERRL. Extraocular movements intact. Clear conjunctiva CARDIOVASCULAR: Regular rate and rhythm. No murmurs, rubs, or gallops LUNGS: Clear to auscultation bilaterally. No wheezes. No rhonchi ABDOMEN: Soft, nontender, nondistended. Positive bowel sounds. Normal active bowel sounds NEUROLOGICAL: Alert and oriented times three. Cranial nerves II through XII grossly intact. Sensation grossly intact except diminished in LLE and distal RLE EXTREMITIES: 5\5 strength bilateral upper extremities. 5-\5 strength right lower extremity. 5-/5 strength in left hip flexors and knee flexors left shoulder exam- + Neers, +painful arc (improving) right knee- incision healed, no warmth/swelling, ROM functional, palpable click with extension SKIN: left residual limb incision c/d/i without induration ASSESSMENT:58-year-old M with past medical history of HTN, DM, chronic wound who presents status post left BKA. PLAN: 1. Rehab: room privileges from wheelchair level, doing own exercise program while awaiting housing -goal is to stretch and strengthen his residual limb, prevent knee/hip flexion contractures, utilize desensitization techniques, strengthen core and upper body strength for safe and effective wheelchair propulsion -mod-I for wheelchair propulsions and ADLs, currently transitioned to outpatient 30-minutes a day program as IRF skilled therapy has been exhausted while awaiting safe housing 2. Neuro: peripheral neuropathy- c/u tight glycemic control 3. Cardio: pmh HTN and HLD, c/u meds, dosing of hydralazine increased per medicine, c/u beta catalina, Imdur, and clonidine for elevated sBPs, suspect administration of multiple Lidoderm patches may have exacerbated rise in BP (d/c'd yesterday), BPs better overnight -c/u ASA and statin, medicine consulted to assist in management, recs appreciated 4. Resp: encourage incentive spirometry, may use home CPAP for SARAH 5. Endo: pmh DM, c/u Levemir and ISS, c/u pre-meal standing coverage and increased evening Levemir increased 6. Vasc: pmh RUE DVT, s/p Lovenox bridge c/u Coumadin, monitor daily INRs -left BKA, wound healing well, CRP trending down 7. : monitor PVRs 8. GI ppx: omeprazole 9. Pain: c/u oxycodone, c/u Elavil at 50mg qHS, and Tylenol -c/u Gabapentin 600mg TID -stop all lidoderm patches to shoulder and low back as may have contributed to rising BPs -CT spine showing spinal stenosis, suspect lumbar radiculitis, pain imporved today on higher dose of gabapentin and oxycodone in addition to Zanaflex -menthol salicylate to right knee for suspected osteoarthritis 10. DVT ppx: s/p Lovenox bridge, c/u warfarin 11. Skin: BID dressing changes- chace removed per vascular surgery, sutures re moved today 12. Hyperkalemia- s/p Kayexalate, improving 12. Dispo: to [facility] temporary housing 12/16/18 if BP stable for 24h Allergies Coded Allergies: povidone-iodine (Verified Allergy, Unknown, 08/18/18) soap (Verified Allergy, Unknown, 08/18/18) Vital Signs Vital Signs Date Time Temp Pulse Resp B/P (MAP) Pulse Ox O2 Delivery O2 Flow Rate FiO2 12/15/18 14:00 97.4 86 18 132/76 (94) 95 Laboratory Data CBC/BMP Laboratory Tests 12/15/18 06:18 Red Blood Count 5.19, Mean Corpuscular Volume 76.9 L, Mean Corpuscular Hemoglobin 23.1 L, Mean Corpuscular Hemoglobin Concent 30.1 L, Red Cell Distribution Width 17.4 H, Neutrophils (%) (Auto) 65.4, Lymphocytes (%) (Auto) 20.8 L, Monocytes (%) (Auto) 5.4 H, Eosinophils (%) (Auto) 5.7 H, Basophils (%) (Auto) 1.7 H, Neutrophils # (Auto) 5.5, Lymphocytes # (Auto) 1.7, Monocytes # (Auto) 0.5, Eosinophils # (Auto) 0.5, Basophils # (Auto) 0.1, Calcium Level 9.2, Aspartate Amino Transf (AST/SGOT) 10, Alanine Aminotransferase (ALT/SGPT) 16, Alkaline Phosphatase 74, Total Bilirubin 0.3, Total Protein 6.0 L, Albumin 2.9 L Labs 24H Laboratory Tests 2 12/14/18 16:29: Bedside Glucose (Misc Panel) 167H 12/14/18 19:47: Bedside Glucose (Misc Panel) 231H 12/15/18 06:13: Bedside Glucose (Misc Panel) 270H 12/15/18 06:18: Immature Granulocyte % (Auto) 1.0, White Blood Count 8.4, Red Blood Count 5.19, Hemoglobin 12.0L, Hematocrit 39.9L, Mean Corpuscular Volume 76.9L, Mean Corpuscular Hemoglobin 23.1L, Mean Corpuscular Hemoglobin Concent 30.1L, Red Cell Distribution Width 17.4H, Platelet Count 440, Neutrophils (%) (Auto) 65.4, Lymphocytes (%) (Auto) 20.8L, Monocytes (%) (Auto) 5.4H, Eosinophils (%) (Auto) 5.7H, Basophils (%) (Auto) 1.7H, Neutrophils # (Auto) 5.5, Lymphocytes # (Auto) 1.7, Monocytes # (Auto) 0.5, Eosinophils # (Auto) 0.5, Basophils # (Auto) 0.1, Nucleated Red Blood Cells % (auto) 0.0, Prothrombin Time 27.8H, Prothromb Time International Ratio 2.61, Anion Gap 5L, Glomerular Filtration Rate 45.5L, Blood Urea Nitrogen 29H, Creatinine 1.66H, Sodium Level 142, Potassium Level 4.6, Chloride Level 113H, Carbon Dioxide Level 24, Calcium Level 9.2, Aspartate Amino Transf (AST/SGOT) 10, Alanine Aminotransferase (ALT/SGPT) 16, Alkaline Phosphatase 74, Total Bilirubin 0.3, Total Protein 6.0L, Albumin 2.9L, Alb umin/Globulin Ratio 0.94L 12/15/18 11:43: Bedside Glucose (Misc Panel) 111H Current Medications Current Medications Current Medications Acetaminophen (Tylenol Tab) 500 mg TID PO Last administered on 12/15/18 08:15; Start 12/10/18 at 16:00 Acetaminophen (Tylenol Tab) 1,000 mg TID PO Last administered on 12/10/18 08:18; Start 11/16/18 at 21:00; Stop 12/10/18 at 11:11; Status DC Amitriptyline HCl (Elavil) 25 mg QHS PO Last administered on 11/16/18 20:34; Start 11/16/18 at 21:00; Stop 11/17/18 at 14:27; Status DC Amitriptyline HCl (Elavil) 50 mg QHS PO Last administered on 11/18/18at 21:38; Start 11/17/18 at 21:00; Stop 11/19/18 at 09:55; Status DC Amitriptyline HCl (Elavil) 50 mg QHS PO Last administered on 12/14/18 20:29; Start 11/19/18 at 21:00 Amlodipine Besylate (Norvasc) 5 mg BID PO Last administered on 11/17/18at 08:16; Start 11/16/18 at 21:00; Stop 11/17/18 at 14:27; Status DC Apixaban (Eliquis) 5 mg BID PO ; Start 11/19/18 at 21:00; Stop 11/19/18 at 21:00; Status DC Aspirin (Aspirin Chewable) 81 mg DAILY PO Last administered on 12/15/18 08:12; Start 11/17/18 at 09:00 Atorvastatin Calcium (Lipitor) 10 mg QHS PO Last administered on 12/14/18 20:29; Start 11/16/18 at 21:00 Benzocaine (Anbesol Gel) 1 dose TID MT Last administered on 12/13/18 20:36; Start 12/04/18 at 16:00; Stop 12/14/18 at 17:11; Status DC Bisacodyl (Dulcolax Suppository) 10 mg DAILYPRN PRN [place] CONSTIPATION; Start 11/16/18 at 18:45; Stop 12/15/18 at 09:29; Status DC Bupropion HCl (Wellbutrin Xl) 150 mg DAILY PO Last administered on 12/15/18at 08:14; Start 11/17/18 at 09:00 Calcium Carbonate (Tums) 1,000 mg Q4HP PRN PO HEARTBURN; Start 11/16/18 at 18:45; Stop 12/15/18 at 09:29; Status DC Carvedilol (COReg) 25 mg BID PO Last administered on 12/14/18at 08:27; Start 11/16/18 at 21:00; Stop 12/14/18 at 17:44; Status DC Carvedilol (COReg) 50 mg BID PO Last administered on 12/15/18at 08:13; Start 12/14/18 at 21:00 Cetirizine HCl (ZyrTEC) 5 mg QHS PO Last administered on 12/14/18at 20:30; Start 11/16/18 at 21:00 Clonidine HCl (Catapres) 0.1 mg BID PO ; Start 12/13/18 at 21:00; Stop 12/13/18 at 21:00; Status DC Clonidine HCl (Catapres) 0.1 mg TID PO Last administered on 12/15/18at 08:14; Start 12/14/18 at 16:00 Clonidine HCl (Aofhwokf-Cvj-7) 1 ea Mo@09 TOP Last administered on 12/13/18at 21:57; Start 12/13/18 at 09:00; Stop 12/14/18 at 09:12; Status DC Dextrose (Dextrose 50%) 25 ml ASDIRECTED PRN IV SEE LABEL COMMENTS; Start 11/16/18 at 18:45 Docusate Sodium (Colace) 100 mg BID PO Last administered on 12/13/18at 20:32; Start 11/16/18 at 21:00; Stop 12/15/18 at 09:29; Status DC Enalapril Maleate (Vasotec) 10 mg BID PO ; Start 11/22/18 at 21:00; Stop 11/22/18 at 21:00; Status DC Enalapril Maleate (Vasotec) 20 mg BID PO Last administered on 11/22/18 08:55; Start 11/16/18 at 21:00; Stop 11/22/18 at 10:07; Status DC Enoxaparin Sodium (Lovenox) 150 mg Q12H SC Last administered on 11/24/18 08:22; Start 11/16/18 at 21:00; Stop 11/24/18 at 10:26; Status DC Gabapentin (Neurontin) 300 mg TID PO Last administered on 12/14/18at 17:24; Start 11/18/18 at 21:00; Stop 12/14/18 at 19:04; Status DC Gabapentin (Neurontin) 600 mg TID PO Last administered on 12/15/18at 08:16; Start 12/14/18 at 21:00 Glucagon (Glucagon) 1 mg ASDIRECTED PRN SC SEE LABEL COMMENTS; Start 11/16/18 at 18:45 Glucose (Glucose) 16 GM ASDIRECTED PRN PO SEE LABEL COMMENTS; Start 11/16/18 at 18:45 Home Med (Med Rec Complete!) ASDIRECTED XX ; Start 11/16/18 at 16:00; Stop 11/16/18 at 16:00; Status DC Hydralazine HCl (Apresoline) 25 mg Q12H PO Last administered on 12/08/18at 08:46; Start 12/07/18 at 09:00; Stop 12/08/18 at 10:15; Status DC Hydralazine HCl (Apresoline) 50 mg Q12H PO Last administered on 12/09/18at 20 :46; Start 12/08/18 at 21:00; Stop 12/09/18 at 21:59; Status DC Hydralazine HCl (Apresoline) 75 mg BID PO ; Start 12/10/18 at 09:00; Stop 12/10/18 at 09:00; Status DC Hydralazine HCl (Apresoline) 75 mg BID PO Last administered on 12/13/18at 09:06; Start 12/10/18 at 09:00; Stop 12/13/18 at 15:55; Status DC Hydralazine HCl (Apresoline) 75 mg TID PO Last administered on 12/15/18at 08:15; Start 12/13/18 at 16:00 Insulin Detemir (Levemir Insulin) 10 units DAILY SC Last administered on 12/01/18 11:01; Start 12/01/18 at 09:00; Stop 12/01/18 at 12:31; Status DC Insulin Detemir (Levemir Insulin) 10 units QHS SC Last administered on 11/17/18at 21:09; Start 11/16/18 at 21:00; Stop 11/18/18 at 09:52; Status DC Insulin Detemir (Levemir Insulin) 15 units QHS SC Last administered on 11/23/18at 21:53; Start 11/18/18 at 21:00; Stop 11/24/18 at 10:26; Status DC Insulin Detemir (Levemir Insulin) 20 units DAILY SC Last administered on 12/06/18 09:31; Start 12/06/18 at 09:00; Stop 12/07/18 at 07:36; Status DC Insulin Detemir (Levemir Insulin) 20 units QHS SC Last administered on 11/29/18at 21:11; Start 11/24/18 at 21:00; Stop 11/30/18 at 11:00; Status DC Insulin Detemir (Levemir Insulin) 30 units QHS SC Last administered on 11/30/18at 21:55; Start 11/30/18 at 21:00; Stop 12/01/18 at 12:31; Status DC Insulin Detemir (Levemir Insulin) 35 units DAILY SC Last administered on 12/07/18at 08:55; Start 12/07/18 at 09:00; Stop 12/08/18 at 07:36; Status DC Insulin Detemir (Levemir Insulin) 40 units QHS SC Last administered on 12/01/18at 21:49; Start 12/01/18 at 21:00; Stop 12/02/18 at 10:06; Status DC Insulin Detemir (Levemir Insulin) 45 units DAILY SC Last administered on 12/09/18at 07:44; Start 12/08/18 at 09:00; Stop 12/09/18 at 21:59; Status DC Insulin Detemir (Levemir Insulin) 50 units DAILY SC Last administered on 12/15/18at 08:10; Start 12/10/18 at 09:00 Insulin Detemir (Levemir Insulin) 50 units QHS SC Last administered on 12/13/18at 20:36; Start 12/10/18 at 21:00; Stop 12/14/18 at 17:45; Status DC Insulin Detemir (Levemir Insulin) 55 units QHS SC Last administered on 12/09/18 at 20:45; Start 12/08/18 at 21:00; Stop 12/09/18 at 21:59; Status DC Insulin Detemir (Levemir Insulin) 65 units QHS SC Last administered on 12/07/18at 21:56; Start 12/07/18 at 21:00; Stop 12/08/18 at 07:36; Status DC Insulin Detemir (Levemir Insulin) 65 units QHS SC Last administered on 12/14/18at 20:31; Start 12/14/18 at 21:00 Insulin Detemir (Levemir Insulin) 68 units QHS SC Last administered on 12/03/18at 21:12; Start 12/02/18 at 21:00; Stop 12/04/18 at 13:34; Status DC Insulin Detemir (Levemir Insulin) 75 units QHS SC Last administered on 12/05/18at 21:36; Start 12/04/18 at 21:00; Stop 12/06/18 at 00:57; Status DC Insulin Detemir (Levemir Insulin) 80 units QHS SC Last administered on 12/06/18at 21:07; Start 12/06/18 at 21:00; Stop 12/07/18 at 07:36; Status DC Insulin Human Lispro (HumaLOG INSULIN) 7 units AC SC Last administered on 12/15/18at 12:48; Start 12/01/18 at 17:30 Insulin Human Lispro (HumaLOG INSULIN) SEE PROTOCOL TABLE AC SC Last administered on 12/15/18at 12:48; Start 11/17/18 at 07:30 Insulin Human Lispro (HumaLOG INSULIN) SEE PROTOCOL TABLE QHS SC Last adminis tered on 12/13/18at 20:35; Start 11/16/18 at 21:00 Isosorbide Mononitrate (Imdur) 30 mg DAILY PO Last administered on 12/14/18at 08:25; Start 11/19/18 at 11:00; Stop 12/14/18 at 17:44; Status DC Isosorbide Mononitrate (Imdur) 60 mg DAILY PO Last administered on 12/15/18at 08:14; Start 12/15/18 at 09:00 Lidocaine (Lidoderm Patch) 1 patch DAILY TD Last administered on 12/13/18at 09:10; Start 11/23/18 at 09:00; Stop 12/14/18 at 09:04; Status DC Lidocaine (Lidoderm Patch) 2 patch QHS TD Last administered on 12/13/18at 20:34; Start 12/12/18 at 21:00; Stop 12/14/18 at 09:04; Status DC Magnesium Hydroxide (Milk Of Magnesia) 30 ml DAILYPRN PRN PO CONSTIPATION; Start 11/16/18 at 18:45; Stop 12/15/18 at 09:29; Status DC Menthol/Methyl Salicylate (Bengay Cream) right knee BID TOP Last administered on 12/13/18at 20:35; Start 11/23/18 at 21:00 Miscellaneous (Unresolved Clarification Entry) SEE LABEL COMMENTS DAILY XX Last administered on 12/05/18at 15:00; Start 12/05/18 at 09:00; Stop 12/05/18 at 15:00; Status DC Nifedipine (Procardia Xl) 90 mg DAILY PO Last administered on 12/15/18at 08:12; Start 11/17/18 at 09:00 Non-Formulary Medication ( See Comment Field Below ) DAILY@21 XX Last a dministered on 12/13/18at 20:36; Start 11/22/18 at 21:00; Stop 12/14/18 at 09:04; Status DC Non-Formulary Medication ( See Comment Field Below ) REMOVE LIDODERM PATC... DAILY XX Last administered on 12/14/18at 08:30; Start 12/13/18 at 09:00; Stop 12/14/18 at 09:06; Status DC Non-Formulary Medication ( See Comment Field Below ) REMOVE LIDODERM PATCH DAILY@0415 XX ; Start 11/23/18 at 04:15; Stop 11/23/18 at 04:15; Status DC Omeprazole (PriLOSEC) 40 mg DAILY PO Last administered on 12/15/18 08:12; Start 11/17/18 at 09:00 Ondansetron HCl (Zofran) 4 mg Q6HP PRN PO NAUSEA; Start 11/16/18 at 18:45; Stop 12/15/18 at 09:29; Status DC Oxycodone HCl (Roxicodone, Oxyir) 5 mg Q4HP PRN PO PAIN Last administered on 11/27/18 12:45; Start 11/27/18 at 12:00; Stop 11/29/18 at 08:50; Status DC Oxycodone HCl (Roxicodone, Oxyir) 5 mg Q6HP PRN PO PAIN Last administered on 12/14/18 12:20; Start 11/29/18 at 12:45; Stop 12/14/18 at 19:01; Status DC Oxycodone HCl (Roxicodone, Oxyir) 10 mg Q4H PRN PO PAIN Last administered on 12/15/18 11:18; Start 12/14/18 at 19:00 Oxycodone HCl (Roxicodone, Oxyir) 10 mg Q4HP PRN PO SEVERE PAIN (PS 8-10) Last administered on 11/26/18 12:45; Start 11/16/18 at 17:45; Stop 11/27/18 at 11:57; Status DC Senna (Senokot) 1 tab QHS PO Last administered on 12/13/18 20:31; Start 11/16/18 at 21:00 Tizanidine HCl (Zanaflex) 2 mg TID PO Last administered on 12/15/18 08:14; Start 12/14/18 at 19:00 Warfarin Sodium (Coumadin) 10 mg DAILY@1700 PO Last administered on 11/17/18 16:19; Start 11/16/18 at 17:00; Stop 11/18/18 at 09:52; Status DC Warfarin Sodium (Coumadin) 15 mg DAILY@1700 PO Last administered on 11/21/18at 16:46; Start 11/18/18 at 17:00; Stop 11/22/18 at 07:26; Status DC Warfarin Sodium (Coumadin) 17.5 mg DAILY@1700 PO Last administered on 7/23/19at 17:25; Start 11/22/18 at 17:00 KEVIN GODOY MD Dec 15, 2018 15:07
[2018-12-15] MEDS: WARFARIN SOD 5 MG TAB PO SCH (18:02)
[2018-12-15 20:00] VITALS: BP 136/65
[2018-12-15] MEDS: ATORVASTATIN 10 MG TAB PO SCH (20:33)
[2018-12-15] MEDS: SENNA 8.6 MG TAB (SENOKOT) PO SCH (20:34)
[2018-12-15] MEDS: AMITRIPTYLINE 50 MG TAB PO SCH (20:34)
[2018-12-15] MEDS: CETIRIZINE (ZyrTEC) 10 MG TAB PO SCH (20:34)
[2018-12-16] MEDS: oxyCODONE 5MG TAB PO PRN ×3 (03:53→12:05)
[2018-12-16 06:00] VITALS: BP 136/66
[2018-12-16] MEDS: HumaLOG INSULIN (NovoLOG) PER UNIT SC SCH ×4 (08:01→12:05)
[2018-12-16] MEDS: NIFEdipine 30 MG XL TAB PO SCH (08:04)
[2018-12-16] MEDS: buPROPion **XL** TABLET 150MG (WELLBUTRIN XL) PO SCH (08:04)
[2018-12-16] MEDS: GABAPENTIN 300 MG CAP PO SCH (08:04)
[2018-12-16] MEDS: tiZANidine 4 MG TAB PO SCH (08:04)
[2018-12-16] MEDS: OMEPRAZOLE 20 MG CAP PO SCH (08:05)
[2018-12-16] MEDS: **hydrALAZINE HCL** 25 MG TAB PO SCH (08:05)
[2018-12-16] MEDS: CARVedilol 12.5 MG TAB PO SCH (08:05)
[2018-12-16] MEDS: ASPIRIN 81 MG CHEW TABLET PO SCH (08:05)
[2018-12-16] MEDS: LEVEMIR (INSULIN DETEMIR) 1 UNITS/0.01ML SC SCH (08:06)
[2018-12-16] MEDS: cloNIDine 0.1 MG TAB PO SCH (08:06)
[2018-12-16] MEDS: ACETAMINOPHEN 500 MG TAB PO SCH (08:06)
[2018-12-16] MEDS: ANALGESIC BALM CRM 120 GM TOP SCH (08:07)
[2018-12-16 08:10] VITALS: BP 136/66
[2018-12-16] MEDS: ISOSORBIDE MON. (IMDUR) 60 MG XR TAB PO SCH (08:10)
[2018-12-16 09:57] LABS: INR 2.37; PROTHROMBIN TIME 25.7 SECONDS (11.8-14.0)
[2018-12-16] MEDS ORDERED: INSUDET SC ×2 (10:13)
[2018-12-16] MEDS ORDERED: GLUC1KIT IM (10:15)
--- NOTE | 2018-12-16 11:56 | IPNPDOC ---
Text Note Date of Service The patient was seen on 12/16/18. NOTE Subjective: Complains of feeling light headed. Blood glucose check 48. Improved with initiation of hypoglycemia protocol. Otherwise, denies chest pain, shortness of breath, weakness. Objective: GENERAL: NAD SKIN : Warm, dry intact HEENT: Atraumatic, normocephalic, PERRL, moist mucous membrane CARDIOVASCULAR: Regular rate and rhythm, S1S2, no JVD, right distal pulses not palpable RESP: CTAB, no accessory muscle use noted ABDOMEN: BS+ non distended non tender MS: Left BKA NEURO: Alert and oriented x 3, CN2-12 grossly intact PSYCH: no anxiety or agitation, appropriate mood and affect. Assessment and plan Left heel cellulitis -which progressed to nonhealing ulcer and left BKA on 11/06 by Vascular Surgery -Prolonged rehabilitation per primary team -Likely discharge home today Swollen Lymph nodes -CT pelvis showing multiple lymph nodes with recommendation for biopsy Diabetes mellitus -with hypoglycemia today on adjusted doses insulin - reduce dosage of insulin -follow up with PCP for dose titration and follow up since he is being discharged today DVT right upper extremity -continue Coumadin - INR therapeutic today Hypertension -controlled on coreg, imdur, clonidine, adalat. Obstructive sleep apnea - CPAP at bedtime DVT Prophylaxis -fully anticoagulated with Coumadin VS,Fishbone, I+O VS, Fishbone, I+O Vital Signs Date Time Temp Pulse Resp B/P (MAP) Pulse Ox O2 Delivery O2 Flow Rate FiO2 12/16/18 08:30 18 12/16/18 08:10 136/66 12/16/18 06:00 98.4 75 94 I&O- Last 24 Hours up to 6 AM 12/16/18 06:00 Intake Total 3200 ml Output Total 1600 ml Balance 1600 ml TEDDY CHILEL Dec 16, 2018 11:55
--- NOTE | 2018-12-18 14:57 | PMRDS ---
DATE OF ADMISSION: 11/16/2018 DATE OF DISCHARGE: 12/16/2018 CHIEF COMPLAINT/DISCHARGE DIAGNOSIS: Left nllbz-[id number] amputation (BKA). HISTORY OF PRESENT ILLNESS: This is a 58-year-old male with a past medical history of hypertension, diabetes, gastroesophageal reflux disease (GERD), right upper extremity deep venous thrombosis (DVT), obstructive sleep apnea (SARAH), depression and chronic left foot ulcer with recurrent wound VAC placement, presented to [facility] emergency department (ED) on 10/29/2018 with poor wound healing despite being treated at the wound care clinic and reported persistent bleeding of his heel with fevers, chills and night sweats. Left foot x-ray showed "there is no acute fracture or dislocation. There is severe narrowing of the first metatarsal phalangeal joint space with associated osteophyte formation. Large atherosclerotic disease involves the tarsal and tarsometatarsal joint spaces." MRI of his foot, however, revealed "plantar hind foot soft tissue ulceration and inflammation with osteomyelitis changes involving the plantar posterior calcaneus." He was admitted and evaluated by infectious disease (ID). He recommended intravenous (IV) Zosyn. He was given the option of calcaneal resection versus yfkms-vxx-aitm amputation (BKA) and opted for amputation. He underwent a left below-knee amputation on 11/06/2018 for osteomyelitis and nonhealing ulcer performed by . He had significant postoperative pain and he was maintained on heparin drip with eventual initiation of warfarin bridging for a past medical history of right upper extremity DVT. He finished up his course of Zosyn, gradually began to participate in therapy, where he was found to have significant mobility and activities of daily living (ADL) impairments and deemed medically appropriate for discharge to acute rehabilitation unit (ARU) on 11/16/2018, having been placed on Lovenox with a Coumadin bridge. HOSPITAL COURSE: Patient was admitted and enrolled in a comprehensive physical therapy (PT)/occupational therapy (OT) program. He received 24-hour nursing supervision and weekly team meetings were held to discuss his progress. Patient quickly progressed to modified independent level from a wheelchair level. He was initially medically quite stable with good blood pressure control and good glucose control. Patient was instructed to provide his own skin care and dressing changes, which he was able to do successfully. Patient was eventually discharged off of the inpatient rehabilitation facility (IRF) level of care and transitioned to a lower level of care as he had maximized out on his functional gains in physical and occupational therapy. During this time the patient was on his own to participate in his own home exercises and received minimal physical therapy to work on back strengthening. He was successfully bridged from Lovenox to Coumadin with stable INRs during his hospital course. He was, for a short period time, titrated off of oxycodone and his pain was managed with Elavil, Tylenol and gabapentin, in addition to Lidoderm patches. Patient did, however, develop acute low back pain that radiated down the left leg, thought to be a radiculitis. CT scan of the low back did not show any fractures; however, did show chronic spinal stenosis. During this period of time, his blood pressure became quite difficult to manage requiring the use of increased doses of clonidine, hydralazine. Patient's pain was addressed with an increased of oxycodone and an increased dose of gabapentin, his Lidoderm patches were discontinued. As suspected, this may have contributed to his rising blood pressures, given he was using three patches without any 12-hour interval breaks and his insulin doses were increased to account for his increase in oral intake. His blood pressures responded well to the adjustments in his pain medications and adjustments in his blood pressure medications and patient had an episode of hypoglycemia on day of discharge due to having eaten less that evening. His insulin dose was cut nearly in half prior to discharge and patient was instructed to make of diary of his finger sticks and to hold the insulin if his fingersticks was less than 100. During his hospital course, he was unable to be discharged sooner due to lack of housing, which window caser, acute rehabilitation unit (ARU) and Department of Senior Management Consultant (DSS) were working diligently to find appropriate and safe housing for him. He was deemed functionally medically stable to be discharged to temporary housing on 12/16/2018, and he was hemodynamically stable upon time of discharge. DISCHARGE MEDICATIONS: As per discharge instructions. FUNCTIONAL HISTORY: Upon discharge, patient was modified independent from a wheelchair level able to complete all activities of daily living (ADLs) at a modified independent level. Thank you for this referral.
== END 2018-12-16 13:20 | disposition home health service (06) | DRG 561 ==
LOC: M PM&R 15:25
PROVIDERS: ADMIT Physical Medicine & Rehabilitation; ATTEND Physical Medicine & Rehabilitation
DX: Z47.81 Encounter for orthopedic aftercare following surgical amputation (principal); Z89.512 Acquired absence of left leg below knee; I12.9 Hypertensive chronic kidney disease with stage 1 through stage 4 chronic kidney disease, or unspecified chronic kidney disease; E11.621 Type 2 diabetes mellitus with foot ulcer; K21.9 Gastro-esophageal reflux disease without esophagitis; G47.33 Obstructive sleep apnea (adult) (pediatric); F32.9 Major depressive disorder, single episode, unspecified; L97.529 Non-pressure chronic ulcer of other part of left foot with unspecified severity; E11.51 Type 2 diabetes mellitus with diabetic peripheral angiopathy without gangrene; Z79.899 Other long term (current) drug therapy; Z79.82 Long term (current) use of aspirin; Z79.4 Long term (current) use of insulin; Z88.8 Allergy status to other drugs, medicaments and biological substances; N18.3 Chronic kidney disease, stage 3 (moderate); F41.9 Anxiety disorder, unspecified; E87.5 Hyperkalemia; K12.0 Recurrent oral aphthae; E66.01 Morbid (severe) obesity due to excess calories

== ENCOUNTER 2018-12-24 16:10 | Emergency (ER) | payer MEDICARE, MEDICAID ==
[~2018-12-24] VITALS: Ht 195.6 cm; Wt 118.2 kg
[~2018-12-24 16:10] MED LIST changes: +ASPI81CH8 PO; +CETI10TA PO; -FEBU40TA PO; +FEBU40TA4 PO; +GABA-843 PO; +GLUC1KIT IM; +INSUHUMDS SC; +ISOS60TA2 PO; -MORP1INJ IV; +MORP1INJ45 IV; +NIFE90TA20 PO; +OMEP-218 PO; +OMEP20CA4 PO; +OXYC-517 PO; +TIZA4TAB4 PO
[2018-12-24] MEDS ORDERED: PERCOCET 5MG/325MG TAB PO ONE ×2 (16:30→20:30)
[2018-12-24 16:50] LABS: BASO # 0.1 10^3/uL (0.0-0.2); BASO % 1.1 % (0.0-1.0); EOS # 0.5 10^3/uL (0.0-0.50); EOS % 3.8 % (0.0-3.0); HEMATOCRIT 49.6 % (42.0-52.0); HEMOGLOBIN 15.3 g/dl (13.5-17.5); LYMPH # 1.5 10^3/uL (1.5-4.5); LYMPH % 11.7 % (24.0-44.0); MEAN CORPUSCULAR HEMOGLOBIN 23.6 pg (27.0-33.0); MEAN CORPUSCULAR HGB CONC 30.8 g/dl (32.0-36.5); MEAN CORPUSCULAR VOLUME 76.4 fl (80.0-96.0); MONO # 0.6 10^3/uL (0.0-0.8); MONO % 4.7 % (0.0-5.0); NEUTROPHILS # 9.7 10^3/uL (1.8-7.7); NEUTROPHILS % 77.3 % (36.0-66.0); PLATELET COUNT, AUTOMATED 514 10^3/uL (150-450); RED BLOOD COUNT 6.49 10^6/uL (4.30-6.10); WHITE BLOOD COUNT 12.5 10^3/uL (4.0-10.0)
[2018-12-24 17:19] LABS: ERYTHROCYTE SEDIMENTATION RATE 2 mm/hr (0-20)
[2018-12-24 17:36] LABS: BLOOD UREA NITROGEN 30 MG/DL (7-18); C REACTIVE PROTEIN QUANTITATIV < 0.30 MG/DL (0.00-0.30); CALCIUM LEVEL 9.9 MG/DL (8.5-10.1); CARBON DIOXIDE LEVEL 28 MEQ/L (21-32); CHLORIDE LEVEL 99 MEQ/L (98-107); GLUCOSE, FASTING 444 MG/DL (70-100); POTASSIUM SERUM 4.8 MEQ/L (3.5-5.1); SODIUM LEVEL 134 MEQ/L (136-145)
[2018-12-24] MEDS ORDERED: HumuLIN R (REGULAR) INSULIN (NovoLIN R) **100U/ML** PER UNIT IV ONE ×2 (17:45→20:00)
[2018-12-24] MEDS ORDERED: HumuLIN R (REGULAR) INSULIN (NovoLIN R) **100U/ML** PER UNIT SC STA (18:13)
[2018-12-24] MEDS ORDERED: NS 1,000 ML IV ONE (18:15)
[2018-12-24] MEDS ORDERED: PERC5TAB12 PO (22:33)
[2018-12-24] MEDS ORDERED: OXYCODONE/APAP 5MG/325MG(BULK FOR ED) 1 TABLET PO ONE (22:45)
[2018-12-24 22:54] VITALS: BP 154/79
== END 2018-12-24 23:00 | disposition home or self-care (01) ==
LOC: EDBD 16:10 → M ED 16:10
DX: M25.562 Pain in left knee (principal); E11.65 Type 2 diabetes mellitus with hyperglycemia; N18.9 Chronic kidney disease, unspecified; Z89.512 Acquired absence of left leg below knee; Z98.890 Other specified postprocedural states; I12.9 Hypertensive chronic kidney disease with stage 1 through stage 4 chronic kidney disease, or unspecified chronic kidney disease; G47.33 Obstructive sleep apnea (adult) (pediatric); Z86.718 Personal history of other venous thrombosis and embolism; Z88.8 Allergy status to other drugs, medicaments and biological substances; Z91.048 Other nonmedicinal substance allergy status; Z79.899 Other long term (current) drug therapy; Z79.4 Long term (current) use of insulin; Z79.01 Long term (current) use of anticoagulants; Z79.82 Long term (current) use of aspirin

== ENCOUNTER → 2019-03-15 | Outpatient (REF) | payer MEDICARE, MEDICAID ==
[~2019-03-15] MED LIST changes: -GLIM4TAB PO; +GLIM4TAB3 PO; +METF-791 PO; -METF500T4 PO
[2019-03-15 18:24] LABS: APPEARANCE, URINE CLOUDY (CLEAR); BACTERIA, URINE AUTO NEGATIVE (NEGATIVE); BILIRUBIN, URINE AUTO NEGATIVE (NEGATIVE); BLOOD, URINE BLOOD NEGATIVE (NEGATIVE); COLOR, URINE YELLOW (YELLOW); GLUCOSE, URINE (UA) AUTO 3+ mg/dL (NEGATIVE); KETONE, URINE AUTO NEGATIVE (NEGATIVE); LEUKOCYTE ESTERASE, URINE AUTO NEGATIVE (NEGATIVE); MUCUS, URINE SMALL (NEGATIVE); NITRITE, URINE AUTO NEGATIVE (NEGATIVE); PROTEIN, URINE AUTO 3+ mg/dL (NEGATIVE); RBC, URINE AUTO 2 /HPF (0-3); SPECIFIC GRAVITY URINE AUTO 1.031 (1.002-1.035); SQUAMOUS EPITHELIAL CELL UR AU 1 /HPF (0-6); UROBILINOGEN, URINE AUTO 0.2 mg/dL (0.0-2.0); WBC, URINE AUTO 15 /HPF (0-3)
== END ==
LOC: M LAB REF 17:05
PROVIDERS: ATTEND Family Medicine
DX: E11.9 Type 2 diabetes mellitus without complications (principal); Z13.228 Encounter for screening for other metabolic disorders; Z12.5 Encounter for screening for malignant neoplasm of prostate

== ENCOUNTER → 2019-05-03 | Outpatient (REF) | payer MEDICARE, MEDICAID ==
[~2019-05-03] MED LIST changes: +OMEP-172 PO; -OMEP20CA4 PO
[2019-05-03 18:49] LABS: ALBUMIN 3.3 GM/DL (3.2-5.2); BILIRUBIN,TOTAL 0.9 MG/DL (0.2-1.0); CALCIUM LEVEL 9.8 MG/DL (8.5-10.1); CHOLESTEROL RISK RATIO 4.2 (<5); CREATININE FOR GFR 1.63 MG/DL (0.70-1.30); GLOMERULAR FILTRATION RATE 46.5 (>56); POTASSIUM SERUM 5.4 MEQ/L (3.5-5.1); TOTAL PROTEIN 5.9 GM/DL (6.4-8.2)
[2019-05-03 19:50] LABS: HEMOGLOBIN A1c 11.5 %
== END ==
LOC: M LAB REF 17:19
PROVIDERS: ATTEND Family Medicine
DX: E11.9 Type 2 diabetes mellitus without complications (principal)

== ENCOUNTER 2019-07-11 13:16 | Outpatient (RCR) | payer MEDICARE, MEDICAID ==
[~2019-07-11 13:16] MED LIST changes: -GLIM4TAB3 PO; +GLIM4TAB5 PO; +NIFE1TAB52 PO; -NIFE30TA7 PO; -OMEP-172 PO; +OMEP1CAP73 PO; +OXYC-1 PO; -OXYC15TA76 PO
== END 2019-07-23 ==
LOC: M PT 13:16
PROVIDERS: ATTEND Physician Assistant
DX: Z89.512 Acquired absence of left leg below knee (principal)

== ENCOUNTER → 2019-08-03 | Outpatient (REF) | payer MEDICARE, MEDICAID ==
[~2019-08-03] MED LIST changes: -OXYC-1 PO; +OXYC15TA76 PO
[2019-08-03 17:16] LABS: HEMOGLOBIN A1c 12.4 %
[2019-08-03 17:34] LABS: ALBUMIN 2.9 GM/DL (3.2-5.2); BILIRUBIN,TOTAL 0.5 MG/DL (0.2-1.0); CALCIUM LEVEL 9.9 MG/DL (8.5-10.1); CHOLESTEROL RISK RATIO 3.151 (<5); CREATININE FOR GFR 1.56 MG/DL (0.70-1.30); GLOMERULAR FILTRATION RATE 48.9 (>56); POTASSIUM SERUM 5.5 MEQ/L (3.5-5.1); THYROID STIMULATING HORMONE 0.843 uIU/ML (0.358-3.740); TOTAL PROTEIN 5.5 GM/DL (6.4-8.2)
== END ==
LOC: M LAB REF 16:16
PROVIDERS: ATTEND Family Medicine Addiction Medicine
DX: E11.9 Type 2 diabetes mellitus without complications (principal)

== ENCOUNTER → 2019-09-16 | Outpatient (REF) | payer MEDICARE, MEDICAID ==
[~2019-09-16] MED LIST changes: +OXYC-1 PO; -OXYC15TA76 PO
[2019-09-16 16:31] LABS: ALBUMIN 2.7 GM/DL (3.2-5.2); BILIRUBIN,TOTAL 0.5 MG/DL (0.2-1.0); CALCIUM LEVEL 9.6 MG/DL (8.5-10.1); CREATININE FOR GFR 1.92 MG/DL (0.70-1.30); GLOMERULAR FILTRATION RATE 38.5 (>56); POTASSIUM SERUM 4.5 MEQ/L (3.5-5.1); TOTAL PROTEIN 5.2 GM/DL (6.4-8.2)
== END ==
LOC: M LAB REF 16:10
PROVIDERS: ATTEND Family Medicine
DX: E86.0 Dehydration (principal)

== ENCOUNTER → 2019-10-04 | Outpatient (CLI) | payer MEDICARE, MEDICAID ==
[~2019-10-04] MED LIST changes: -METF-791 PO; +METF-838 PO; +READI-CAT 2 As Ordered ONE
--- NOTE | 2019-10-04 15:29 | REP ---
CT ABDOMEN WITHOUT CONTRAST: CT abdomen performed with oral contrast, without IV contrast administration. Sagittal and coronal reconstruction images are performed. Comparison made with prior studies of 12/03/2018 and 08/27/2017. Visualized lung bases demonstrate no infiltrate. The liver is grossly unremarkable. The spleen is enlarged having a length of approximately 17 cm. This is mildly larger than on the prior studies, length on the 12/03/2018 exam was approximately 15.8 cm and on 08/27/2017, approximately 15.3 cm. Left adrenal nodule is unchanged. It has remained stable since 08/27/2017 and is therefore likely benign. Approximate diameter is 2.2 cm. Right adrenal gland is unremarkable. Pancreas is grossly unremarkable. Kidneys are grossly unremarkable with hydronephrosis or nephrolithiasis. There is mild atherosclerotic calcification of the abdominal aorta without aneurysm. Subcentimeter periaortic lymph nodes are present without significant adenopathy. There is no free air or free fluid. There is no bowel wall thickening. There are degenerative changes of the spine. There is a stable moderate compression deformity of T12. IMPRESSION: Mild splenomegaly. Spleen is slightly larger than the prior studies. Stable left adrenal nodule. This is likely benign as it has remained stable since 08/27/2017. Stable moderate compression deformity of T12. Electronically Signed by Sesar Gatica MD 10/04/2019 03:38 P
== END ==
LOC: M RAD 13:29
PROVIDERS: ATTEND Family Medicine
DX: R16.1 Splenomegaly, not elsewhere classified (principal)

== ENCOUNTER → 2019-11-24 | Outpatient (REF) | payer MEDICARE, MEDICAID ==
[~2019-11-24] MED LIST changes: -READI-CAT 2 As Ordered ONE
[2019-11-24 18:00] LABS: ALBUMIN 2.3 GM/DL (3.2-5.2); BILIRUBIN,TOTAL 0.4 MG/DL (0.2-1.0); CALCIUM LEVEL 9.8 MG/DL (8.5-10.1); CHOLESTEROL RISK RATIO 4.268 (<5); CREATININE FOR GFR 1.54 MG/DL (0.70-1.30); GLOMERULAR FILTRATION RATE 49.5 (>56); POTASSIUM SERUM 4.9 MEQ/L (3.5-5.1); THYROID STIMULATING HORMONE 0.929 uIU/ML (0.358-3.740); TOTAL PROTEIN 4.9 GM/DL (6.4-8.2)
== END ==
LOC: M LAB REF 16:53
PROVIDERS: ATTEND Family Medicine Addiction Medicine
DX: E11.9 Type 2 diabetes mellitus without complications (principal)

== ENCOUNTER → 2019-12-28 | Outpatient (CLI) | payer MEDICARE, MEDICAID ==
[~2019-12-28] MED LIST changes: +AMLO1TAB24 PO; -AMLO5TAB6 PO; -ASPI81TA85 PO; +ASPI81TA86 PO; +BACL10TA2 PO; +DICY1CAP8 PO; -ENAL20TA PO; +ENAL20TA11 PO; +FLON1SPR; +GABA-1171 PO; +HYDR500C3 PO; +INSU100I12 SQ; +LISI10TA15 PO; +METO10TA2 PO; +OXYC30TA72 PO
[2020-01-28 08:16] LABS: BASO # 0.3 10^3/uL (0.0-0.2); BASO % 2.2 % (0.0-1.0); EOS # 0.6 10^3/uL (0.0-0.5); EOS % 4.4 % (0.0-3.0); LYMPH # 2.4 10^3/uL (1.5-5.0); LYMPH % 19.2 % (24.0-44.0); MEAN CORPUSCULAR HEMOGLOBIN 22.4 pg (27.0-33.0); MEAN CORPUSCULAR VOLUME 74.6 fl (80.0-96.0); MONO # 0.6 10^3/uL (0.0-0.8); MONO % 4.4 % (0.0-5.0); NEUTROPHILS # 8.6 10^3/uL (1.5-8.5); PLATELET COUNT, AUTOMATED 492 10^3/uL (150-450); WHITE BLOOD COUNT 12.5 10^3/uL (4.0-10.0)
[2020-01-28 08:17] LABS: HEMATOCRIT 62.9 % (42.0-52.0); HEMOGLOBIN 18.9 g/dl (13.5-17.5); RED BLOOD COUNT 8.43 10^6/uL (4.30-6.10)
[2020-02-06 06:23] LABS: ANTI-SMOOTH MUSCLE ANTIBODY SEE SEPARATE REPORT; ANTINUCLEAR ANTIBODIES DIRECT See Separate Report; LIVER-KIDNEY MICROSOMAL ABY SEE SEPARATE REPORT
[2020-02-06 06:24] LABS: ANTI-MITOCHONDRIAL ANTIBODY SEE SEPARATE REPORT
[2020-02-25 10:17] LABS: CHOLESTEROL LEVEL 159 MG/DL (<200); CHOLESTEROL RISK RATIO 3.878 (<5); HDL CHOLESTEROL 41 MG/DL (>40); HEPATITIS B SURFACE ANTIBODY NEGATIVE (POSITIVE); HEPATITIS B SURFACE ANTIGEN NEGATIVE (NEGATIVE); HEPATITIS C VIRUS ABY INDEX 0.2 INDEX (<0.8); IRON (FE) 21 UG/DL (65-175); NON-HDL-C 118 MG/DL; PERCENT SATURATION 9.4 % (19.7-50.0); TOTAL IRON BINDING CAPACITY 224 UG/DL (250-450); TRIGLYCERIDES LEVEL 412 MG/DL (<150)
== END ==
LOC: M LAB 10:24
PROVIDERS: ATTEND Internal Medicine Gastroenterology
DX: R94.5 Abnormal results of liver function studies (principal); K59.00 Constipation, unspecified; Z79.01 Long term (current) use of anticoagulants; Z79.899 Other long term (current) drug therapy

== ENCOUNTER → 2020-01-10 | Outpatient (CLI) | payer MEDICARE, MEDICAID ==
--- NOTE | 2020-02-17 12:48 | REP ---
ABDOMINAL RIGHT UPPER QUADRANT ULTRASOUND AND DOPPLER ULTRASOUND ASSESSMENT OF THE PORTAL VEIN: Delay in reporting results from hospital computer system malfunction from malware/ ransomware. HISTORY: Portal hypertension. RIGHT UPPER QUADRANT ABDOMINAL ULTRASOUND: FINDINGS: There is no cholelithiasis, gallbladder wall thickening or pericholecystic fluid. The common biliary duct is dilated, measuring 7.0 mm. However, there is no intrahepatic biliary duct dilatation. The hepatic parenchyma is homogeneous. The visualized areas of the pancreas are unremarkable. The spleen is enlarged, measuring 18.2 x 16.2 x 7.7 cm. There is a solid splenic mass, slightly hypoechoic, measuring 4.0 x 3.9 x 3.9 cm. The right kidney measures 10.8 x 7.2 x 6.6 cm and is normal size. The right renal parenchyma is hyperechoic. This is compatible with medical renal disease. There are no right renal masses or cysts. There are no calculi. There is no hydronephrosis. The left kidney measures 12.3 x 6.1 x 5.8 cm and is normal size. The right renal cortex is hyperechoic. This is compatible with medical renal disease. There is no left renal calculus or hydronephrosis. There is no left renal solid or cystic mass. The abdominal aorta is obscured by bowel gas. IMPRESSION: Splenomegaly. 4.0 cm solid splenic mass. MTDD
== END ==
LOC: M RAD 09:15
PROVIDERS: ATTEND Internal Medicine Gastroenterology
DX: R94.5 Abnormal results of liver function studies (principal); R16.1 Splenomegaly, not elsewhere classified; D73.89 Other diseases of spleen

== ENCOUNTER 2020-01-25 15:46 | Inpatient (IN) | payer MEDICARE, MEDICAID ==
[~2020-01-25] VITALS: Ht 195.6 cm; Wt 125.8 kg
[~2020-01-25 15:46] MED LIST changes: -BACL10TA2 PO; -DICY1CAP8 PO; -FLON1SPR; -GABA-1171 PO; -HYDR500C3 PO; -INSU100I12 SQ; -LISI10TA15 PO; -METO10TA2 PO; -OXYC30TA72 PO
[2020-01-25] MEDS ORDERED: NS 1,000 ML IV ONE ×2 (16:45→20:15)
[2020-01-25] MEDS ORDERED: MORPHINE 4 MG/ML 1ML VIAL/SYRINGE (J2270) IV ONE (16:45)
[2020-01-25] MEDS ORDERED: ONDANSETRON 4MG/2ML VIAL IV ONE (17:00)
[2020-01-25 17:17] LABS: BASO # 0.3 10^3/uL (0.0-0.2); BASO % 1.9 % (0.0-1.0); EOS # 0.6 10^3/uL (0.0-0.5); EOS % 4.4 % (0.0-3.0); HEMATOCRIT 64.7 % (42.0-52.0); HEMOGLOBIN 19.3 g/dl (13.5-17.5); LYMPH # 1.6 10^3/uL (1.5-5.0); LYMPH % 11.1 % (24.0-44.0); MEAN CORPUSCULAR HEMOGLOBIN 22.1 pg (27.0-33.0); MEAN CORPUSCULAR HGB CONC 29.8 g/dl (32.0-36.5); MEAN CORPUSCULAR VOLUME 73.9 fl (80.0-96.0); MONO # 0.7 10^3/uL (0.0-0.8); MONO % 4.5 % (0.0-5.0); NEUTROPHILS # 11.2 10^3/uL (1.5-8.5); PLATELET COUNT, AUTOMATED 565 10^3/uL (150-450); RED BLOOD COUNT 8.75 10^6/uL (4.30-6.10); WHITE BLOOD COUNT 14.6 10^3/uL (4.0-10.0)
[2020-01-25] MEDS: READI-CAT 2 PO SCH ×2 (17:32→18:10)
[2020-01-25 17:39] LABS: ALBUMIN 2.1 GM/DL (3.2-5.2); BILIRUBIN,DIRECT 0.1 MG/DL (0.0-0.2); BILIRUBIN,TOTAL 0.4 MG/DL (0.2-1.0); CALCIUM LEVEL 8.9 MG/DL (8.5-10.1); CREATININE FOR GFR 2.06 MG/DL (0.70-1.30); GLOMERULAR FILTRATION RATE 35.4 (>56); POTASSIUM SERUM 4.8 MEQ/L (3.5-5.1); TOTAL PROTEIN 4.6 GM/DL (6.4-8.2)
--- NOTE | 2020-01-25 19:20 | REPVR ---
PROCEDURE INFORMATION: Exam: CT Abdomen And Pelvis Without Contrast Exam date and time: 01/25/2020 6:53 PM Age: 59 years old Clinical indication: Abdominal pain; Periumbilical; Additional info: Priumbilic pain/constipation TECHNIQUE: Imaging protocol: Computed tomography of the abdomen and pelvis without contrast. Radiation optimization: All CT scans at this facility use at least one of these dose optimization techniques: automated exposure control; mA and/or kV adjustment per patient size (includes targeted exams where dose is matched to clinical indication); or iterative reconstruction. Other contrast: Oral, redicat, 450ml x 2; COMPARISON: CT ABD PELVIS W/O CONTRAST 12/03/2018 10:39 AM FINDINGS: Lungs: No suspicious mass or airspace process in the visualized lung bases. Liver: Liver appears diffusely enlarged, without focal lesion. Gallbladder and bile ducts: Gallbladder is present and shows no evidence of gallstone. Pancreas: Noncontrast pancreas shows no obvious mass or adjacent fluid. Spleen: Spleen is diffusely enlarged, without focal lesion. Adrenals: Benign 2 cm left adrenal fat containing adenoma. Normal right adrenal. Kidneys and ureters: Noncontrast kidneys and ureters show no stone or obstructive change. Stomach and bowel: No evidence of small bowel obstruction. Diverticular changes are present within the colon without inflammation. Appendix: Normal caliber appendix is identified, with no adjacent inflammation. Intraperitoneal space: No pneumoperitoneum. No free fluid or fluid collection. Vasculature: Atherosclerotic change present in the aorta, without aneurysm. Lymph nodes: Mildly prominent retroperitoneal lymph nodes are present. Normal sized small mesenteric lymph nodes. No pelvic sidewall lymphadenopathy. Small bilateral inguinal lymph nodes. Bladder: Urinary bladder appears normal. Bones/joints: Bony structures are normal except for lumbar spine degenerative disc changes. Soft tissues: Incidental right gluteus medius lipoma. Other findings: Evaluation of solid organs is limited without IV contrast. IMPRESSION: 1. Hepatosplenomegaly. No evidence of ascites. 2. No evidence of acute appendicitis and no evidence of obstructive uropathy. 3. No concerning acute bowel process or evidence of rectal fecal impaction. 4. Nonspecific retroperitoneal mildly prominent lymph nodes COMMENTS: Consistent with the [employer]'s Incidental Findings Committee white paper (J Am Holley Radiol 2017): For any incidental adrenal lesion greater than 1.0 cm but less than 4.0 cm classified in this report as benign, likely benign, or containing fat (including classification as an adenoma or myelolipoma), no follow-up imaging is recommended per consensus recommendations based on imaging criteria. Further lab evaluation could be pursued if warranted based on clinical findings. Electronically signed by: Raoul Mendoza On 01/25/2020 19:20:26 PM
[2020-01-25] MEDS ORDERED: MOM 30ML SUSPENSION UDC PO PRN (20:30)
[2020-01-25] MEDS ORDERED: DEXTROSE 50% 50 ML SYRINGE IV PRN (20:30)
[2020-01-25] MEDS ORDERED: GLUCOSE 4GM CHEW TABLET PO PRN (20:30)
[2020-01-25] MEDS ORDERED: MAALOX 30 ML SUSP *UDC PO PRN (20:30)
[2020-01-25] MEDS ORDERED: GLUCAGON INJ 1MG VIAL SC PRN (20:30)
[2020-01-25] MEDS ORDERED: ACETAMINOPHEN TAB 650MG DOSE (2X325MG) PO PRN (20:30)
[2020-01-25] MEDS ORDERED: MIRALAX *UNIT DOSE* 17GM PACKET PO PRN (20:30)
[2020-01-25] MEDS ORDERED: SODIUM CHLORIDE 0.9% 1000ML IV SCH (20:30)
[2020-01-25] MEDS ORDERED: ONDANSETRON 4MG/2ML VIAL IV PRN (20:30)
[2020-01-25] MEDS ORDERED: ATOR1TAB19 PO (21:10)
[2020-01-25] MEDS ORDERED: OMEP1CAP73 PO (21:10)
[2020-01-25] MEDS ORDERED: FLON1SPR (21:10)
[2020-01-25] MEDS ORDERED: ELIQ5TAB PO (21:10)
[2020-01-25] MEDS ORDERED: LEVOTAB10 PO (21:10)
[2020-01-25] MEDS ORDERED: OXYC30TA72 PO (21:10)
[2020-01-25 21:11] LABS: URIC ACID 7.6 MG/DL (3.5-7.2)
[2020-01-25 21:31] LABS: HEMOGLOBIN A1c 9.3 %
[2020-01-25] MEDS: oxyCODONE 10 MG CR TAB PO SCH (22:00)
--- NOTE | 2020-01-25 22:54 | HPEPDOC ---
[facility] Medical History & Physical Date of Admission Jan 26, 2020 Date of Service: Jan 26, 2020 Other Provider Kavon Moore Attending Physician: TONI OLIVA MD History and Physical CTIME OF SERVICE: 940pm CHIEF COMPLAINT: pain HISTORY OF PRESENT ILLNESS: This 59 yr old M presented w c/o of diffuse 10/10 in severity non-radiating abdominal pain that begun 3 days ago lasts for hours. He also has left flank pain, lower back pain, fever, chills and nausea without vomiting that makes it difficult for him to eat or drink. His last BM was 3 days ago; he is passing gas. 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 HOME MEDICATIONS: Please see below. PHYSICAL EXAM Vital Signs Date Time Temp Pulse Resp B/P (MAP) Pulse Ox O2 Delivery O2 Flow Rate FiO2 01/25/20 15:55 99.1 103 20 142/90 (107) 94 Room Air GENERAL APPEARANCE: obese/ well developed /anxious HEENT: no scleral icterus / EOMI CARDIOVASCULAR: RRR/NMRG / trace BLE edema LUNGS: CTAB on RA ABDOMEN: distended/ mesh from hernia repair palpable/ tender w palpitation / no rebound tenderness MUSCULOSKELETAL: LUIS ALBERTO x 3 extremities and L limb INTEGUMENT: no generalized pallor / has multiple tattoos NEUROLOGICAL: CN -12 intact / speech not dysarthric PSYCHIATRIC: A&Ox 3 /able to understand and follow all commands LABORATORY DATA: 01/25/20 16:23 01/25/20 16:23: Immature Granulocyte % (Auto) 1.1, Neutrophils (%) (Auto) 77.0H, Lymphocytes (%) (Auto) 11.1L, Monocytes (%) (Auto) 4.5, Eosinophils (%) (Auto) 4.4H, Basophils (%) (Auto) 1.9H, Neutrophils # (Auto) 11.2H, Lymphocytes # (Auto) 1.6, Monocytes # (Auto) 0.7, Eosinophils # (Auto) 0.6H, Basophils # (Auto) 0.3H, Nucleated Red Blood Cells % (auto) 0.0, Anion Gap 6L, Glomerular Filtration Rate 35.4L, Uric Acid 7.6H, Calcium Level 8.9, Total Bilirubin 0.4, Direct Bilirubin 0.1, Aspartate Amino Transf (AST/SGOT) 21, Alanine Aminotransferase (ALT/SGPT) 20, Alkaline Phosphatase 124H, Total Protein 4.6L, Albumin 2.1L, Albumin/Globulin Ratio 0.8, Lipase 99 01/25/20 20:50: Urine Color YELLOW, Urine Appearance HAZY, Urine pH 5.0, Urine Specific [place] 1.025, Urine Protein 3+H, Urine Glucose (UA) 3+H, Urine Ketones NEGATIVE, Urine Blood 1+H, Urine Nitrite NEGATIVE, Urine Bilirubin NEGATIVE, Urine Urobilinogen 0.2, Urine Leukocyte Esterase NEGATIVE, Urine WBC (Auto) 3, Urine RBC (Auto) 1, Urine Hyaline Casts (Auto) 4, Urine Bacteria (Auto) NEGATIVE, Urine Squamous Epithelial Cells 0, Urine Mucus (Auto) SMALL, Urine Sperm (Auto) IMAGING: CT abdomen/pelvis IMPRESSION: 1. Hepatosplenomegaly. No evidence of ascites. 2. No evidence of acute appendicitis and no evidence of obstructive uropathy. 3. No concerning acute bowel process or evidence of rectal fecal impaction. 4. Nonspecific retroperitoneal mildly prominent lymph nodes MICROBIOLOGY: 01/25/20 Blood Culture, Received Pending ASSESSMENT: is a 59 yr old w a hx of DM, CKD 3 and DM w neuropathy who presented w c/o abdominal pain, nausea & f/c; he will be admitted for evaluation of abdominal pain & SIRS of whos cause is TBD and treatment of JANIE dehydration due to poor PO intake. PLAN: 1 Nausea and abdominal pain Cause unclear possibly gastroparesis Plan: admit to medical floor / CLD & IVF / Zofran / day time team may consider GI consult pending gastric emptying study & start Reglan or similar med AFTER study & discussing side effect profile 2 SIRS SIRS criteria include HR 103 and WBC # 14.6 CT abd unrevealing Plan: f/u UA, blood cx, procalcitonin & lactic acid / will hold of abx pending confirmation of source 3 JANIE on CKD 3 Plan: IVF / f/u renal US, uric acid (to r/o gout nephropathy), Ulytes for FENa 4 Dehydration Elevated erythrocytosis and thrombocytosis possibly 2/2 to hemoconcentration bc of poor PO intake Plan: IVF 5 Hepatosplenomegaly Born btwn [birth year] = candidate for Hep C screening Plan: f/u Hep panel 6 Uncontrolled HTN Plan: start amlodipine / once JANIE has resolved day time team may consider switching to ACEI bc of co-existing DM 7 DM 2 w neuropathy Plan: FSBS, SSI w hypoglycemia protocol, Upro/Cr, A1C 8 Hx of RUE DVT & PE Plan: apixaban 9 SARAH Plan: own CPAP 10 Depression Currently grieving of his mother and one of his brothers Plan: bupropion 11 Chronic back pain / DJD Plan: oxycontin 12 GERD Plan: PPI 13 Obesity w BMI of 32.2 complicates care DVT px n/a bc of NOAC Dispo: home after more than 2 midnights stay Home Medications Scheduled Apixaban (Eliquis) 5 Mg Tablet, 5 MG PO BID Aspirin (Aspirin EC) 81 Mg Tablet.dr, 81 MG PO DAILY Atorvastatin Calcium (Atorvastatin Calcium) 10 Mg Tablet, 10 MG PO QHS Bupropion HCl (Bupropion Xl) 150 Mg Tab.er.24h, 150 MG PO DAILY Fluticasone Propionate (Flonase Allergy Relief) 9.9 Ml [place].susp, 2 SPRAYS NA DAILY Levocetirizine Dihydrochloride (Levocetirizine Dihydrochloride) 5 Mg Tablet, 5 MG PO QHS Omeprazole (Omeprazole) 20 Mg Capsule.dr, 20 MG PO DAILY Oxycodone HCl (Oxycontin) 30 Mg Tab.er.12h, 30 MG PO Q8H Allergies Coded Allergies: povidone-iodine (Verified Allergy, Unknown, 08/18/18) soap (Verified Allergy, Unknown, 08/18/18) A-FIB/CHADSVASC A-FIB History Current/History of A-Fib/PAF?: No Current PO Anticoag Therapy: No TONI OLIVA MD Jan 25, 2020 22:54
[2020-01-25] MEDS: CETIRIZINE (ZyrTEC) 10 MG TAB PO SCH (23:10)
[2020-01-25] MEDS: APIXABAN 5 MG TAB (ELIQUIS) PO SCH (23:10)
[2020-01-25] MEDS: ATORVASTATIN 10 MG TAB PO SCH (23:10)
[2020-01-25] MEDS: NS 1,000 ML IV SCH (23:42)
[2020-01-26] MEDS: HumaLOG INSULIN (NovoLOG) PER UNIT SC SCH ×5 (00:03→23:49)
[2020-01-26] MEDS ORDERED: LISINOPRIL *2.5 MG* TAB PO ONE (00:45)
[2020-01-26] MEDS ORDERED: HEPARIN SOD (PORCINE) 5000UNITS/ML 1ML VIAL/SYRINGE SC SCH (06:00)
[2020-01-26] MEDS: oxyCODONE 10 MG CR TAB PO SCH ×3 (06:14→21:22)
[2020-01-26 07:34] LABS: HEMATOCRIT 56.9 % (42.0-52.0); MEAN CORPUSCULAR HEMOGLOBIN 22.3 pg (27.0-33.0); MEAN CORPUSCULAR HGB CONC 30.1 g/dl (32.0-36.5); MEAN CORPUSCULAR VOLUME 74.1 fl (80.0-96.0); PLATELET COUNT, AUTOMATED 513 10^3/uL (150-450); RED BLOOD COUNT 7.68 10^6/uL (4.30-6.10); WHITE BLOOD COUNT 11.9 10^3/uL (4.0-10.0)
[2020-01-26 07:38] LABS: HEMOGLOBIN 17.1 g/dl (13.5-17.5)
[2020-01-26 08:01] LABS: ALBUMIN 1.6 GM/DL (3.2-5.2); BILIRUBIN,TOTAL 0.5 MG/DL (0.2-1.0); CALCIUM LEVEL 8.2 MG/DL (8.5-10.1); CREATININE FOR GFR 1.67 MG/DL (0.70-1.30); GLOMERULAR FILTRATION RATE 45.1 (>56); MAGNESIUM LEVEL 1.8 MG/DL (1.8-2.4); POTASSIUM SERUM 4.1 MEQ/L (3.5-5.1); TOTAL PROTEIN 3.6 GM/DL (6.4-8.2)
[2020-01-26] MEDS: OMEPRAZOLE 20 MG CAP PO SCH (09:44)
[2020-01-26] MEDS: buPROPion **XL** TABLET 150MG (WELLBUTRIN XL) PO SCH (09:44)
[2020-01-26] MEDS: APIXABAN 5 MG TAB (ELIQUIS) PO SCH ×2 (09:44→21:20)
[2020-01-26] MEDS: ASPIRIN 81 MG ENTERIC TAB PO SCH (09:44)
[2020-01-26] MEDS: NS 1,000 ML IV SCH (11:10)
[2020-01-26] MEDS: FLUTICASONE PROP 0.05% NASAL SPRAY 16 GM (FLONASE) SCH (11:10)
--- NOTE | 2020-01-26 14:25 | IPNPDOC ---
Date Seen The patient was seen on 01/26/20. Progress Note SUBJECTIVE: seen and examined at bedside. Denies fevers, chills. Continues to have abdo discomfort. No BM. OBJECTIVE PHYSICAL EXAMINATION: VITAL SIGNS: Please see below. GENERAL: NAD, comfortable HEENT: PERRLA, EOMI CARDIOVASCULAR: RRR, normal S1, S2. RESPIRATORY: lungs CTAB. ABDOMINAL: large ventral hernia, not incarcerated. Abdo soft. BS+ EXTREMITIES: L AKA. NEUROLOGICAL: no focal deficts PSYCHOLOGICAL: calm, cooperative LABORATORY DATA, IMAGING STUDIES, MICROBIOLOGY: Please see below. DVT prophylaxis ordered?: NOAC ASSESSMENT AND PLAN: is a 59 yr old w a hx of DM, CKD 3 and DM w neuropathy who presented w c/o abdominal pain, nausea & f/c; he will be admitted for evaluation of abdominal pain & SIRS of whos cause is TBD and treatment of JANIE dehydration due to poor PO intake. PROBLEMS: 1 Nausea and abdominal pain: unclear etiology. Poss gastroparesis. F/U NM g astric emptying study. Reglan prn. 2 SIRS: CT abdo wnl. WBC trending down, afebrile. 3 JANIE on CKD 3: FeNa 0.5%. Pre-renal, likely hypovolemia from reduced PO intake. IVFD 4 Dehydration: IVF, 0.45% NS at 100 cc/hr 5 Hepatosplenomegaly: f/u hep panel 6 Uncontrolled HTN: amlodipine. ACEi given DM 7 DM 2 w neuropathy: FSBS, SSI w hypoglycemia protocol, A1c 9.3. 8 Hx of RUE DVT & PE: apixaban 9 SARAH: own CPAP 10 Depression: bupropion. recent mother, brother 11 Chronic back pain / DJD: oxycontin 12 GERD: PPI 13 Obesity w BMI of 32.2. Dietary counseling. DVT ppx: apixaban DISPOSITION: DC home once medically stable. VS, I&O, 24H, Fishbone Vital Signs/I&O Vital Signs Date Time Temp Pulse Resp B/P (MAP) Pulse Ox O2 Delivery O2 Flow Rate FiO2 01/26/20 06:14 60 16 154/79 98 Room Air 01/26/20 06:00 98.2 l I&O- Last 24 Hours up to 6 AM 01/26/20 06:00 Intake Total 3000 ml Balance 3000 ml Laboratory Data 24H LABS Laboratory Tests 2 01/25/20 16:23: Immature Granulocyte % (Auto) 1.1, Neutrophils (%) (Auto) 77.0H, Lymphocytes (%) (Auto) 11.1L, Monocytes (%) (Auto) 4.5, Eosinophils (%) (Auto) 4.4H, Basophils (%) (Auto) 1.9H, Neutrophils # (Auto) 11.2H, Lymphocytes # (Auto) 1.6, Monocytes # (Auto) 0.7, Eosinophils # (Auto) 0.6H, Basophils # (Auto) 0.3H, Nucleated Red Blood Cells % (auto) 0.0, Anion Gap 6L, Glomerular Filtration Rate 35.4L, Uric Acid 7.6H, Calcium Level 8.9, Total Bilirubin 0.4, Direct Bilirubin 0.1, Aspartate Amino Transf (AST/SGOT) 21, Alanine Aminotransferase (ALT/SGPT) 20, Alkaline Phosphatase 124H, Total Protein 4.6L, Albumin 2.1L, Albumin/Globulin Ratio 0.8, Lipase 99 01/25/20 20:46: Estimated Mean Plasma Glucose 220H, Hemoglobin A1c 9.3, Lactic Acid Level 0.9 01/25/20 20:50: Urine Color YELLOW, Urine Appearance HAZY, Urine pH 5.0, Urine Specific [place] 1.025, Urine Protein 3+H, Urine Glucose (UA) 3+H, Urine Ketones NEGATIVE, Urine Blood 1+H, Urine Nitrite NEGATIVE, Urine Bilirubin NEGATIVE, Urine Urobilinogen 0.2, Urine Leukocyte Esterase NEGATIVE, Urine WBC (Auto) 3, Urine RBC (Auto) 1, Urine Hyaline Casts (Auto) 4, Urine Bacteria (Auto) NEGATIVE, Urine Squamous Epithelial Cells 0, Urine Mucus (Auto) SMALL, Urine Sperm (Auto) 01/25/20 20:53: Urine Random Osmolality 466L, Urine Random Creatinine 161.0, Urine Random Sodium 56, Urine Random Urea Nitrogen 474 01/26/20 07:18: Nucleated Red Blood Cells % (auto) 0.0, Anion Gap 7L, Glomerular Filtration Rate 45.1L, Calcium Level 8.2L, Magnesium Level 1.8, Total Bilirubin 0.5, Aspartate Amino Transf (AST/SGOT) 16, Alanine Aminotransferase (ALT/SGPT) 15, Alkaline Phosphatase 98, Total Protein 3.6#L, Albumin 1.6#L, Albumin/Globulin Ratio 0.8 CBC/BMP Laboratory Tests 01/25/20 16:23 01/26/20 07:18 Microbiology Microbiology 01/25/20 Blood Culture, Received Pending COBY FALLON MD Jan 26, 2020 14:25
[2020-01-26] MEDS ORDERED: NS 0.45% 1,000 ML IV SCH (14:30)
[2020-01-26 16:15] VITALS: BP 177/105
[2020-01-26 16:20] VITALS: BP 130/80
[2020-01-26] MEDS: NS 0.45% 1,000 ML IV SCH (19:30)
[2020-01-26] MEDS ORDERED: LISINOPRIL *2.5 MG* TAB PO SCH (21:00)
[2020-01-26] MEDS: CETIRIZINE (ZyrTEC) 10 MG TAB PO SCH (21:20)
[2020-01-26] MEDS: ATORVASTATIN 10 MG TAB PO SCH (21:22)
[2020-01-26 22:00] VITALS: BP 108/80
[2020-01-27] MEDS ORDERED: GABAPENTIN 300 MG CAP PO ONE (01:30)
[2020-01-27 02:00] VITALS: BP 110/85
[2020-01-27] MEDS: NS 0.45% 1,000 ML IV SCH (04:55)
[2020-01-27] MEDS: HumaLOG INSULIN (NovoLOG) PER UNIT SC SCH ×4 (05:27→21:00)
[2020-01-27] MEDS: oxyCODONE 10 MG CR TAB PO SCH ×3 (05:31→22:04)
[2020-01-27 06:00] VITALS: BP 115/85
[2020-01-27] MEDS ORDERED: FLUBLOK(EGG FREE)(QUAD)INFLUENZA VACC 0.5ML SYRINGE 18YRS & OLDER IM ONE (09:00)
[2020-01-27 10:00] VITALS: BP 160/80
[2020-01-27] MEDS: APIXABAN 5 MG TAB (ELIQUIS) PO SCH ×2 (10:09→22:00)
[2020-01-27] MEDS: OMEPRAZOLE 20 MG CAP PO SCH (10:09)
[2020-01-27] MEDS: buPROPion **XL** TABLET 150MG (WELLBUTRIN XL) PO SCH (10:09)
[2020-01-27] MEDS: ASPIRIN 81 MG ENTERIC TAB PO SCH (10:09)
[2020-01-27 10:59] LABS: HEPATITIS A ANTIBODY IGM NEGATIVE (NEGATIVE); HEPATITIS B CORE ANTIBODY IGM NEGATIVE (NEGATIVE); HEPATITIS B SURFACE ANTIGEN NEGATIVE (NEGATIVE); HEPATITIS C VIRUS ABY INDEX 0.2 INDEX (<0.8)
[2020-01-27] MEDS: FLUTICASONE PROP 0.05% NASAL SPRAY 16 GM (FLONASE) SCH (12:48)
--- NOTE | 2020-01-27 13:52 | IPNPDOC ---
Date Seen The patient was seen on 01/27/20. Progress Note SUBJECTIVE: seen and examined at bedside. Denies fevers, chills. Continues to have abdo discomfort. No BM. OBJECTIVE PHYSICAL EXAMINATION: VITAL SIGNS: Please see below. GENERAL: NAD, comfortable HEENT: PERRLA, EOMI CARDIOVASCULAR: RRR, normal S1, S2. RESPIRATORY: lungs CTAB. ABDOMINAL: large ventral hernia, not incarcerated. Abdo soft. BS+ EXTREMITIES: L AKA. NEUROLOGICAL: no focal deficts PSYCHOLOGICAL: calm, cooperative LABORATORY DATA, IMAGING STUDIES, MICROBIOLOGY: Please see below. DVT prophylaxis ordered?: NOAC ASSESSMENT AND PLAN: is a 59 yr old w a hx of DM, CKD 3 and DM w neuropathy who presented w c/o abdominal pain, nausea & f/c; he will be admitted for evaluation of abdominal pain & SIRS of whos cause is TBD and treatment of JANIE dehydration due to poor PO intake. PROBLEMS: 1 Nausea and abdominal pain: unclear etiology. Poss gastroparesis. F/U NM gastric emptying study. Reglan prn. 2 SIRS: CT abdo wnl. WBC trending down, afebrile. Procalcitonin 0.11. UA shows no evidence of UTI. 3 JANIE on CKD 3: FeNa 0.5%. Pre-renal. Received IVF, Cr trended to 1.67, appears to be at baseline. Uric acid 7.6. Likely elevated 2/[address] Kelly. 4 Dehydration: Stop IVF. Tolerating PO well. 5 Hepatosplenomegaly: hep panel negative. Check INR/PT. No transaminitis. PCP f/u, consider heme eval as outpatient. 6 Uncontrolled HTN: amlodipine. ACEi given DM 7 DM 2 w neuropathy: FSBS, SSI w hypoglycemia protocol, A1c 9.3. Accuchecks 100- 140. Needs PCP f/u. GFR < 50, will avoid starting metformin. 8 Hx of RUE DVT & PE: apixaban 9 SARAH: own CPAP 10 Depression: bupropion. recent mother, brother 11 Chronic back pain / DJD: oxycontin 12 GERD: PPI 13 Obesity w BMI of 32.2. Dietary counseling. DVT ppx: apixaban DISPOSITION: DC home once medically stable. VS, I&O, 24H, Fishbone Vital Signs/I&O Vital Signs Date Time Temp Pulse Resp B/P (MAP) Pulse Ox O2 Delivery O2 Flow Rate FiO2 01/27/20 06:00 98.2 82 19 115/85 (95) 98 Room Air I&O- Last 24 Hours up to 6 AM 01/27/20 06:00 Intake Total 2570 ml Output Total 400 ml Balance 2170 ml Laboratory Data 24H LABS Laboratory Tests 2 01/27/20 06:30: Hepatitis A IgM Antibody NEGATIVE, Hepatitis B Surface Antigen NEGATIVE, Hepatitis B Core IgM Antibody NEGATIVE, Hepatitis C Antibody Index 0.2 Microbiology Microbiology 01/25/20 Blood Culture - Preliminary, Resulted No growth after 24 hours . All specim... COBY FALLON MD Jan 27, 2020 13:52
[2020-01-27 14:00] VITALS: BP 160/90
[2020-01-27] MEDS ORDERED: METOCLOPRAMIDE 10 MG TAB PO PRN (14:30)
[2020-01-27 16:07] LABS: BASO # 0.2 10^3/uL (0.0-0.2); EOS # 0.3 10^3/uL (0.0-0.5); EOS % 3.1 % (0.0-3.0); HEMATOCRIT 60.5 % (42.0-52.0); HEMOGLOBIN 17.2 g/dl (13.5-17.5); LYMPH # 0.8 10^3/uL (1.5-5.0); LYMPH % 7.1 % (24.0-44.0); MEAN CORPUSCULAR HEMOGLOBIN 22.1 pg (27.0-33.0); MEAN CORPUSCULAR HGB CONC 28.4 g/dl (32.0-36.5); MEAN CORPUSCULAR VOLUME 77.7 fl (80.0-96.0); MONO # 0.4 10^3/uL (0.0-0.8); MONO % 3.8 % (0.0-5.0); NEUTROPHILS # 9.1 10^3/uL (1.5-8.5); NEUTROPHILS % 83.3 % (36.0-66.0); PLATELET COUNT, AUTOMATED 530 10^3/uL (150-450); RED BLOOD COUNT 7.79 10^6/uL (4.30-6.10); WHITE BLOOD COUNT 10.9 10^3/uL (4.0-10.0)
[2020-01-27 16:18] LABS: INR 1.28; PROTHROMBIN TIME 16.3 SECONDS (11.8-14.0)
[2020-01-27 16:19] LABS: PARTIAL THROMBOPLASTIN TIME 38.4 SECONDS (25.0-38.4)
[2020-01-27 16:24] LABS: ALBUMIN 1.7 GM/DL (3.2-5.2); BILIRUBIN,TOTAL 0.5 MG/DL (0.2-1.0); CALCIUM LEVEL 8.8 MG/DL (8.5-10.1); CREATININE FOR GFR 1.64 MG/DL (0.70-1.30); TOTAL PROTEIN 3.9 GM/DL (6.4-8.2)
[2020-01-27 18:00] VITALS: BP 160/88
[2020-01-27 22:00] VITALS: BP 160/100
[2020-01-27] MEDS: GABAPENTIN 300 MG CAP PO SCH (22:00)
[2020-01-27] MEDS: ATORVASTATIN 10 MG TAB PO SCH (22:00)
[2020-01-27] MEDS: CETIRIZINE (ZyrTEC) 10 MG TAB PO SCH (22:02)
[2020-01-28 02:00] VITALS: BP 148/88
[2020-01-28] MEDS: oxyCODONE 10 MG CR TAB PO SCH ×3 (05:42→21:55)
[2020-01-28 06:00] VITALS: BP 168/82
[2020-01-28] MEDS: HumaLOG INSULIN (NovoLOG) PER UNIT SC SCH ×4 (08:38→21:00)
[2020-01-28] MEDS: buPROPion **XL** TABLET 150MG (WELLBUTRIN XL) PO SCH (08:46)
[2020-01-28] MEDS: APIXABAN 5 MG TAB (ELIQUIS) PO SCH ×2 (08:46→21:55)
[2020-01-28] MEDS: FLUTICASONE PROP 0.05% NASAL SPRAY 16 GM (FLONASE) SCH (08:46)
[2020-01-28] MEDS: OMEPRAZOLE 20 MG CAP PO SCH (08:46)
[2020-01-28] MEDS: ASPIRIN 81 MG ENTERIC TAB PO SCH (08:46)
[2020-01-28 10:00] VITALS: BP 160/80
[2020-01-28 13:44] LABS: BASO # 0.2 10^3/uL (0.0-0.2); BASO % 1.9 % (0.0-1.0); EOS # 0.5 10^3/uL (0.0-0.5); EOS % 4.9 % (0.0-3.0); HEMATOCRIT 60.7 % (42.0-52.0); HEMOGLOBIN 18.4 g/dl (13.5-17.5); LYMPH # 1.4 10^3/uL (1.5-5.0); LYMPH % 12.9 % (24.0-44.0); MEAN CORPUSCULAR HEMOGLOBIN 22.1 pg (27.0-33.0); MEAN CORPUSCULAR HGB CONC 30.3 g/dl (32.0-36.5); MONO # 0.5 10^3/uL (0.0-0.8); MONO % 4.4 % (0.0-5.0); NEUTROPHILS # 7.9 10^3/uL (1.5-8.5); NEUTROPHILS % 74.7 % (36.0-66.0); PLATELET COUNT, AUTOMATED 621 10^3/uL (150-450); RED BLOOD COUNT 8.31 10^6/uL (4.30-6.10); WHITE BLOOD COUNT 10.5 10^3/uL (4.0-10.0)
[2020-01-28 13:53] LABS: CALCIUM LEVEL 9.4 MG/DL (8.5-10.1); CREATININE FOR GFR 1.57 MG/DL (0.70-1.30); GLOMERULAR FILTRATION RATE 48.4 (>56); POTASSIUM SERUM 4.3 MEQ/L (3.5-5.1)
[2020-01-28 14:00] VITALS: BP 170/80
[2020-01-28 18:00] VITALS: BP 138/88
--- NOTE | 2020-01-28 20:26 | IPNPDOC ---
Date Seen The patient was seen on 01/28/20. Progress Note SUBJECTIVE: seen and examined at bedside. Denies fevers, chills. tolerating diet. C/o pain in bilateral flanks, worse on movement. Ambulating independently in halls. OBJECTIVE PHYSICAL EXAMINATION: VITAL SIGNS: Please see below. GENERAL: NAD, comfortable HEENT: PERRLA, EOMI CARDIOVASCULAR: RRR, normal S1, S2. RESPIRATORY: lungs CTAB. ABDOMINAL: large ventral hernia, not incarcerated. Abdo soft. Hepatosplenomegaly. BS+. TTP in L and R flank at costal edge. EXTREMITIES: L AKA. NEUROLOGICAL: no focal deficts PSYCHOLOGICAL: calm, cooperative LABORATORY DATA, IMAGING STUDIES, MICROBIOLOGY: Please see below. DVT prophylaxis ordered?: NOAC ASSESSMENT AND PLAN: is a 59 yr old w a hx of DM, CKD 3 and DM w neuropathy who presented w c/o abdominal pain, nausea & f/c; he will be admitted for evaluation of abdominal pain & SIRS of whos cause is TBD and treatment of JANIE dehydration due to poor PO intake. PROBLEMS: 1 Nausea and abdominal pain: unclear etiology. Poss gastroparesis. NM gastric empyting wnl. Reglan. Bentyl. Tolerting FLQ. Advance to regular. 2 SIRS: CT abdo wnl. WBC trending down, afebrile. Procalcitonin 0.11. UA shows no evidence of UTI. Infection unlikely. 3 JANIE on CKD 3: FeNa 0.5%. Pre-renal. Received IVF, Cr trended to 1.67, appears to be at baseline. Uric acid 7.6. Likely elevated 2/[address] Kelly. 4 Dehydration: Stop IVF. Tolerating PO well. 5 Hepatosplenomegaly: hep panel negative. coags wnl. LFTs wnl. Liver enzymes wnl. Noted elevation in WBC, Hgb, Hct 60, PLT 621. Discussed with Dr. Vizcaino (heme). 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 Will see patient in clinic on 01/31/20 for Jak2 mutation testing, phlebotomy. C/w eliquis. 6 Uncontrolled HTN: amlodipine. ACEi given DM 7 DM 2 w neuropathy: FSBS, SSI w hypoglycemia protocol, A1c 9.3. Accuchecks 100- 140. Needs PCP f/u. GFR < 50, will avoid starting metformin. 8 Hx of RUE DVT & PE: apixaban. possible polycythemia vera c/w hx of thromboembolic disease 9 SARAH: own CPAP 10 Depression: bupropion. recent mother, brother 11 Chronic back pain / DJD: oxycontin 12 GERD: PPI 13 Obesity w BMI of 32.2. Dietary counseling. DVT ppx: apixaban DISPOSITION: DC home once tolerating regular diet. VS, I&O, 24H, Fishbone Vital Signs/I&O Vital Signs Date Time Temp Pulse Resp B/P (MAP) Pulse Ox O2 Delivery O2 Flow Rate FiO2 01/28/20 18:00 96.7 52 20 138/88 (105) 93 Room Air I&O- Last 24 Hours up to 6 AM 01/28/20 06:00 Intake Total 5410 ml Output Total 1750 ml Balance 3660 ml Laboratory Data 24H LABS Laboratory Tests 2 01/27/20 21:26: Bedside Glucose (Misc Panel) 169H 01/28/20 05:28: Bedside Glucose (Misc Panel) 112H 01/28/20 11:32: Bedside Glucose (Misc Panel) 149H 01/28/20 13:19: Immature Granulocyte % (Auto) 1.2, Neutrophils (%) (Auto) 74.7H, Lymphocytes (%) (Auto) 12.9L, Monocytes (%) (Auto) 4.4, Eosinophils (%) (Auto) 4.9H, Basophils (%) (Auto) 1.9H, Neutrophils # (Auto) 7.9, Lymphocytes # (Auto) 1.4L, Monocytes # (Auto) 0.5, Eosinophils # (Auto) 0.5, Basophils # (Auto) 0.2, Nucleated Red Blood Cells % (auto) 0.0, Anion Gap 6L, Glomerular Filtration Rate 48.4L, Calcium Level 9.4 01/28/20 16:51: Bedside Glucose (Misc Panel) 220H CBC/BMP Laboratory Tests 01/28/20 13:19 Microbiology Microbiology 01/25/20 Blood Culture - Preliminary, Resulted No Growth after 48 hours. All Specime... COBY FALLON MD Jan 28, 2020 20:26
[2020-01-28] MEDS: CETIRIZINE (ZyrTEC) 10 MG TAB PO SCH (21:53)
[2020-01-28] MEDS: ATORVASTATIN 10 MG TAB PO SCH (21:53)
[2020-01-28] MEDS: GABAPENTIN 300 MG CAP PO SCH (21:55)
[2020-01-28] MEDS: DICYCLOMINE 10 MG CAP PO SCH (21:55)
[2020-01-28 22:00] VITALS: BP 174/88
[2020-01-29 02:00] VITALS: BP 164/80
[2020-01-29] MEDS: oxyCODONE 10 MG CR TAB PO SCH ×3 (06:07→21:56)
[2020-01-29 06:47] VITALS: BP 136/86
[2020-01-29] MEDS: HumaLOG INSULIN (NovoLOG) PER UNIT SC SCH ×4 (07:50→20:25)
[2020-01-29] MEDS: buPROPion **XL** TABLET 150MG (WELLBUTRIN XL) PO SCH (07:59)
[2020-01-29] MEDS: DICYCLOMINE 10 MG CAP PO SCH ×3 (07:59→21:02)
[2020-01-29] MEDS: ASPIRIN 81 MG ENTERIC TAB PO SCH (08:00)
[2020-01-29] MEDS: FLUTICASONE PROP 0.05% NASAL SPRAY 16 GM (FLONASE) SCH (08:00)
[2020-01-29] MEDS: APIXABAN 5 MG TAB (ELIQUIS) PO SCH ×2 (08:00→21:02)
[2020-01-29] MEDS: OMEPRAZOLE 20 MG CAP PO SCH (08:00)
[2020-01-29] MEDS ORDERED: ASPIRIN 81 MG ENTERIC TAB PO SCH (09:00)
[2020-01-29 10:00] VITALS: BP 170/78
[2020-01-29 14:00] VITALS: BP 173/80
--- NOTE | 2020-01-29 14:52 | REPVR ---
PROCEDURE INFORMATION: Exam: MR Abdomen Without Contrast Exam date and time: 01/29/2020 12:29 PM Age: 59 years old Clinical indication: Abnormal findings; Abnormal radiologic finding of the abdomen; Radiologic exam and body structure: CT; Patient HX: Lt adrenal nodule; Additional info: Adrenal protocol please. Enlarging adrenal adenoma TECHNIQUE: Imaging protocol: MR of the abdomen without contrast. COMPARISON: CT ABD/PEL W/PO CONTRAST ONLY 01/25/2020 6:46 PM COMPARISON MORE: CT ABD PELVIS W/O CONTRAST 12/03/2018 10:39:33 AM FINDINGS: Limitations: Lack of intravenous contrast material limits evaluation of the vascular and visceral structures. Additionally, images are suboptimal. Liver: Unremarkable. Gallbladder and bile ducts: Gallbladder is partially contracted. Mild gallbladder wall edema. No abnormal biliary ductal dilatation. Pancreas: Unremarkable. No ductal dilation. Spleen: Splenomegaly, with the spleen measuring approximately 19.2 cm in length. Adrenals: Faintly visualized left adrenal lesion. This does appear to lose signal on the out of phase sequence, compatible with a benign adenoma. Kidneys and ureters: No hydronephrosis. 19 mm hyperintense T2 right renal cortical lesion, likely a cyst. Mild bilateral perinephric edema. Stomach and bowel: No bowel obstruction. Intraperitoneal space: No free fluid. Arteries: No abdominal aortic aneurysm. Lymph nodes: Mildly prominent retroperitoneal lymph nodes, measuring up to 10 mm in short axis dimension. Bones/joints: Degenerative change of the spine. Chronic appearing T12 vertebral body compression fracture. Soft tissues: Mild anasarca. IMPRESSION: 1. Benign left adrenal adenoma. 2. Chronic splenomegaly. 3. Mild retroperitoneal lymphadenopathy, unchanged. Electronically signed by: Nat Moore On 01/29/2020 14:52:05 PM
--- NOTE | 2020-01-29 17:26 | IPNPDOC ---
Date Seen The patient was seen on 01/29/20. Progress Note SUBJECTIVE: seen and examined at bedside. Denies fevers, chills. tolerating diet. C/o pain in bilateral flanks, worse on movement. Ambulating independently in halls. OBJECTIVE PHYSICAL EXAMINATION: VITAL SIGNS: Please see below. GENERAL: NAD, comfortable HEENT: PERRLA, EOMI CARDIOVASCULAR: RRR, normal S1, S2. RESPIRATORY: lungs CTAB. ABDOMINAL: large ventral hernia, not incarcerated. Abdo soft. Hepatosp lenomegaly. BS+. TTP in L and R flank at costal edge. EXTREMITIES: L AKA. NEUROLOGICAL: no focal deficts PSYCHOLOGICAL: calm, cooperative LABORATORY DATA, IMAGING STUDIES, MICROBIOLOGY: Please see below. DVT prophylaxis ordered?: NOAC ASSESSMENT AND PLAN: is a 59 yr old w a hx of DM, CKD 3 and DM w neuropathy who presented w c/o abdominal pain, nausea & f/c; he will be admitted for evaluation of abdominal pain & SIRS of whos cause is TBD and treatment of JANIE dehydration due to poor PO intake. PROBLEMS: 1 Nausea and abdominal pain: unclear etiology. Poss gastroparesis. NM gastric empyting wnl. Reglan. Bentyl. Tolerating regular diet 2 SIRS: CT abdo wnl. WBC trending down, afebrile. Procalcitonin 0.11. UA shows no evidence of UTI. Infection unlikely. 3 JANIE on CKD 3: FeNa 0.5%. Pre-renal. Received IVF, Cr trended to 1.67, appears to be at baseline. Uric acid 7.6. Likely elevated 2/[address] Kelly. 4 Dehydration: Stop IVF. Tolerating PO well. 5 Hepatosplenomegaly: hep panel negative. coags wnl. LFTs wnl. Liver enzymes wnl. Noted elevation in WBC, Hgb, Hct 60, PLT 621. Discuss[address] with Dr. Vizcaino (heme). 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 Will see patient in clinic on 01/31/20 for Jak2 mutation testing, phlebotomy. C/w eliquis. 6 Uncontrolled HTN: amlodipine. ACEi given DM 7 DM 2 w neuropathy: FSBS, SSI w hypoglycemia protocol, A1c 9.3. Accuchecks 100- 140. Needs PCP f/u. GFR < 50, will avoid starting metformin. 8 Hx of RUE DVT & PE: apixaban. possible polycythemia vera c/w hx of thromboembolic disease 9 SARAH: own CPAP 10 Depression: bupropion. recent mother, brother 11 Chronic back pain / DJD: oxycontin 12 GERD: PPI 13 Obesity w BMI of 32.2. Dietary counseling. 14 L adrenal nodule: seen on CT, 2cm benign appearance. Obtained record from [facility], [place] in 07/2019 showed a 1 cm adrenal nodule, recommended MRI with adrenal protocol to r/o malignancy. Given increased in size, will be obtain MRI abdo wo contrast, adrenal protocol. Given hx of uncontrolled HTN, obtain plasma metanephrine/catecholamines, cortisol stim test and urine metanephrine/c atecholamines, VMA to determine if active or inactive nodule. DVT ppx: apixaban DISPOSITION: DC home once tolerating regular diet. VS, I&O, 24H, Fishbone Vital Signs/I&O Vital Signs Date Time Temp Pulse Resp B/P (MAP) Pulse Ox O2 Delivery O2 Flow Rate FiO2 01/29/20 14:21 18 01/29/20 14:00 97.2 100 173/80 (111) 97 Room Air I&O- Last 24 Hours up to 6 AM 01/29/20 06:00 Intake Total 2470 ml Output Total 3400 ml Balance -930 ml Laboratory Data 24H LABS Laboratory Tests 2 01/28/20 20:59: Bedside Glucose (Misc Panel) 210H 01/29/20 06:38: Bedside Glucose (Misc Panel) 115H 01/29/20 12:21: Bedside Glucose (Misc Panel) 152H 01/29/20 16:55: Bedside Glucose (Misc Panel) 293H Microbiology Microbiology 01/25/20 Blood Culture - Preliminary, Resulted No Growth after 72 hours. All specime... COBY FALLON MD Jan 29, 2020 17:26
[2020-01-29 18:00] VITALS: BP 160/70
[2020-01-29] MEDS: GABAPENTIN 300 MG CAP PO SCH (21:02)
[2020-01-29] MEDS: CETIRIZINE (ZyrTEC) 10 MG TAB PO SCH (21:02)
[2020-01-29] MEDS: ATORVASTATIN 10 MG TAB PO SCH (21:02)
[2020-01-29 22:00] VITALS: BP 158/72
[2020-01-30 02:00] VITALS: BP 140/88
[2020-01-30 06:00] VITALS: BP 148/72
[2020-01-30] MEDS ORDERED: NITROGLYCERIN 0.4 MG SUBL TABLET SL PRN (06:30)
[2020-01-30 06:32] VITALS: BP 158/90
[2020-01-30 06:37] LABS: BASO # 0.2 10^3/uL (0.0-0.2); BASO % 1.8 % (0.0-1.0); EOS # 0.5 10^3/uL (0.0-0.5); EOS % 4.5 % (0.0-3.0); LYMPH # 2.1 10^3/uL (1.5-5.0); LYMPH % 18.3 % (24.0-44.0); MEAN CORPUSCULAR HEMOGLOBIN 22.3 pg (27.0-33.0); MEAN CORPUSCULAR VOLUME 74.3 fl (80.0-96.0); MONO # 0.5 10^3/uL (0.0-0.8); MONO % 4.7 % (0.0-5.0); NEUTROPHILS # 7.8 10^3/uL (1.5-8.5); NEUTROPHILS % 69.7 % (36.0-66.0); PLATELET COUNT, AUTOMATED 533 10^3/uL (150-450); WHITE BLOOD COUNT 11.2 10^3/uL (4.0-10.0)
[2020-01-30 06:44] LABS: HEMATOCRIT 59.6 % (42.0-52.0); HEMOGLOBIN 17.9 g/dl (13.5-17.5); RED BLOOD COUNT 8.02 10^6/uL (4.30-6.10)
[2020-01-30 06:56] LABS: CALCIUM LEVEL 8.8 MG/DL (8.5-10.1); CREATININE FOR GFR 1.68 MG/DL (0.70-1.30); GLOMERULAR FILTRATION RATE 44.7 (>56); POTASSIUM SERUM 4.4 MEQ/L (3.5-5.1)
[2020-01-30 07:00] LABS: NT-PRO BNP 1465 PG/ML (<125); TROPONIN I < 0.02 NG/ML (< 0.10)
[2020-01-30] MEDS: oxyCODONE 10 MG CR TAB PO SCH (07:05)
[2020-01-30] MEDS: APIXABAN 5 MG TAB (ELIQUIS) PO SCH (08:25)
[2020-01-30] MEDS: OMEPRAZOLE 20 MG CAP PO SCH (08:25)
[2020-01-30] MEDS: DICYCLOMINE 10 MG CAP PO SCH (08:25)
[2020-01-30] MEDS: buPROPion **XL** TABLET 150MG (WELLBUTRIN XL) PO SCH (08:25)
[2020-01-30] MEDS: ASPIRIN 81 MG ENTERIC TAB PO SCH (08:25)
[2020-01-30] MEDS: HumaLOG INSULIN (NovoLOG) PER UNIT SC SCH ×2 (08:26→11:55)
[2020-01-30] MEDS: FLUTICASONE PROP 0.05% NASAL SPRAY 16 GM (FLONASE) SCH (08:26)
[2020-01-30 10:00] VITALS: BP 134/69
[2020-01-30] MEDS ORDERED: DICY1CAP8 PO (10:48)
[2020-01-30] MEDS ORDERED: LISI10TA15 PO (10:48)
[2020-01-30] MEDS ORDERED: METO10TA2 PO (10:48)
--- NOTE | 2020-01-30 11:34 | DS.PDOC ---
Discharge Summary General Date of Admission Jan 25, 2020 at 20:19 Date of Discharge 01/30/2020 Attending Physician: COBY FALLON MD Specialist/Consultants Involve: A Discharge Summary PROCEDURES PERFORMED DURING STAY: [None]. ADMITTING DIAGNOSES: 1. Nausea and abdominal pain 2. SIRS 3. JANIE on CKD III 4. Dehydration 5. Hepatosplenomegaly 6. Uncontrolled HTN 7. DM2 with neuropathy 8. RUE DVT and PE on eliquis 9. SARAH 10. Depression 11. Chronic back pain 12. GERD 13. Obesity BMI 32.2 DISCHARGE DIAGNOSES: 1. Nausea and vomiting 2. JANIE on CKD 3. Dehydration 4. Polycythemia 5. HTN 6. DM2 7. Diabetic neuropathy 8. Hx of DVT/PE 9. Adrenal nodule - left 10. SARAH 11. Depression 12. GERD COMPLICATIONS/CHIEF COMPLAINT: Dehydration HISTORY OF PRESENT ILLNESS: This 59 yr old M presented w c/o of diffuse 10/10 in severity non-radiating abdominal pain that begun 3 days ago lasts for hours. He also has left flank pain, lower back pain, fever, chills and nausea without vomiting that makes it difficult for him to eat or drink. His last BM was 3 days ago; he is passing gas HOSPITAL COURSE: Patient was admitted due to suspected dehydration 2/2 reduced P O intake from nausea and vomiting. UA showed no signs of infection. Procalcitonin was negative. After IVF hydration, leukocytosis improved mildly. Of note, increase in multiple cell lines was noted. Hepatosplenomegaly appreciated on exam and on CT abdo imaging. Hematology was contacted, suspected chronic myelodysplastic disorder, likely polycythemia vera, which may account for prior history of upper extremity DVT and PE. He is already on AC with eliquis. Hematology recommended to follow up in clinic the week of discharge for JAK2 mutation testing (sample could not be send from inpatient, as must be transfered same day to outside lab - weekend), as well as possibly phlebotomy. Patient reported a history of an intrabdominal mass/cyst on prior imaging from [facility]. Records were obtained and showed a 1 cm L adrenal nodule. It is redemonstrated on CT abdo, 2 cm in diameter. Given increase in size, MRI adrenal protocol was performed, with benign appearance. Given history of unctontrolled HTN, testing was ordered to determine hormonal activity of nodule. Plasma metanephrines and catecholamines, as well renin aldosterone ratio. Patient was instructed to follow up with PCP and was referred to nephrology for outpatient management of hypertension. The patient remained afebrile throughout the entire admission, with normal VSS apart from hypertension. He was started on amlodipine due to JANIE, but was transitioned to ACEi/HCTZ therapy. Patient was tolerating PO diet and had significant improvement in abdominal pain with reglan and bentyl therapy. Additional problems were addressed as follows: 1 Nausea and abdominal pain: unclear etiology. Poss gastroparesis. NM gastric emptying wnl. Reglan. Bentyl. Tolerating regular diet 2 SIRS: CT abdo wnl. WBC trending down, afebrile. Procalcitonin 0.11. UA shows no evidence of UTI. Infection unlikely. 3 JANIE on CKD 3: FeNa 0.5%. Pre-renal. Received IVF, Cr trended to 1.67, appears to be at baseline. Uric acid 7.6. Likely elevated 2/[address] Kelly (nephro) 4 Dehydration: tolerating PO well 5 Hepatosplenomegaly: hep panel negative. coags wnl. LFTs wnl. Liver enzymes wnl. Noted elevation in WBC, Hgb, Hct 60, PLT 621. Discuss[address] with Dr. Vizcaino (heme). 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 Will see patient in clinic on for Jak2 mutation testing, phlebotomy. C/w eliquis . 6 Uncontrolled HTN: amlodipine DC. ACEi given DM 7 DM 2 w neuropathy: FSBS, SSI w hypoglycemia protocol, A1c 9.3. Accuchecks 100- 140. Needs PCP f/u. GFR < 50, will avoid starting metformin. 8 Hx of RUE DVT & PE: apixaban. possible polycythemia vera c/w hx of thromboembolic disease 9 SARAH: own CPAP 10 Depression: bupropion. recent mother, brother 11 Chronic back pain / DJD: oxycontin 12 GERD: PPI 13 Obesity w BMI of 32.2. Dietary counseling. 14 L adrenal nodule: seen on CT, 2cm benign appearance. Obtained record from [facility], [place] in 07/2019 showed a 1 cm adrenal nodule, recommended MRI with adrenal protocol to r/o malignancy. Given increased in size, will be obtain MRI abdo wo contrast, adrenal protocol. Given hx of uncontrolled HTN, obtain plasma metanephrine/catecholamines, cortisol stim test and urine metanephrine/catecholamines, VMA to determine if active or inactive nodule. 15 Chest pain: non radiating, no SOB. EKG showing NSR. Trop < 0.02. pro-BNP elevated most likely due to CKD. DVT ppx: apixaban DISPOSITION: DC home once tolerating regular diet. DISCHARGE MEDICATIONS: Please see below. ALLERGIES: Please see below. PHYSICAL EXAMINATION ON DISCHARGE: VITAL SIGNS: Please see below. GENERAL: NAD, comfortable HEENT: PERRLA, EOMI CARDIOVASCULAR: RRR, normal S1, S2. RESPIRATORY: lungs CTAB. ABDOMINAL: large ventral hernia, reducible. Abdo soft. Hepatosplenomegaly. BS+. TTP in L and R flank at costal edge. EXTREMITIES: L AKA. No edema. NEUROLOGICAL: no focal deficts PSYCHOLOGICAL: calm, cooperative LABORATORY DATA: Please see below. IMAGING: CT abdo: IMPRESSION: 1. Hepatosplenomegaly. No evidence of ascites. 2. No evidence of acute appendicitis and no evidence of obstructive uropathy. 3. No concerning acute bowel process or evidence of rectal fecal impaction. 4. Nonspecific retroperitoneal mildly prominent lymph nodes MRI abdo (adrenal protocol) IMPRESSION: 1. Benign left adrenal adenoma. 2. Chronic splenomegaly. 3. Mild retroperitoneal lymphadenopathy, unchanged. PROGNOSIS: ACTIVITY: [As tolerated]. DIET: consistent carbohydrate DISCHARGE PLAN: DC home with primary care, nephrology and hematology follow up DISPOSITION: home with self care DISCHARGE INSTRUCTIONS: 1. Follow up with PCP 3-5 days and nephrology in 2 weeks. 2. Follow up with hematology clinic in 3 days for work up of polycythemia 3. Follow up with nephrology within 2 weeks. 4. if you develop chest pain, shortness of breath, severe abdominal pain, please return to the ED or call 911. ITEMS TO FOLLOWUP ON ON OUTPATIENT: 1. Would recommend outpatient dexamethasone suppression testing 2. plasma metanephrines, catecholamines, renin/aldosterone labs for workup of adrenal nodule given uncontrolled HTN DISCHARGE CONDITION: [Stable]. TIME SPENT ON DISCHARGE: Greater than 30 minutes. Vital Signs/I&Os Vital Signs Date Time Temp Pulse Resp B/P (MAP) Pulse Ox O2 Delivery O2 Flow Rate FiO2 01/30/20 10:00 97.7 62 19 134/69 (90) 96 Room Air I&O- Last 24 Hours up to 6 AM 01/30/20 05:59 Intake Total 2260 ml Output Total 1100 ml Balance 1160 ml Laboratory Data Labs 24H Laboratory Tests 2 01/29/20 12:21: Bedside Glucose (Misc Panel) 152H 01/29/20 16:55: Bedside Glucose (Misc Panel) 293H 01/29/20 20:19: Bedside Glucose (Misc Panel) 166H 01/30/20 06:19: Immature Granulocyte % (Auto) 1.0, Neutrophils (%) (Auto) 69.7H, Lymphocytes (%) (Auto) 18.3L, Monocytes (%) (Auto) 4.7, Eosinophils (%) (Auto) 4.5H, Basophils (%) (Auto) 1.8H, Neutrophils # (Auto) 7.8, Lymphocytes # (Auto) 2.1, Monocytes # (Auto) 0.5, Eosinophils # (Auto) 0.5, Basophils # (Auto) 0.2, Nucleated Red Blood Cells % (auto) 0.0, Anion Gap 6L, Glomerular Filtration Rate 44.7L, Calcium Level 8.8, Troponin I < 0.02, CQ-Zdy-[id number]-Type Natriuretic Peptide 1465H CBC/BMP Laboratory Tests 01/30/20 06:19 FSBS Laboratory Tests Test 01/29/20 12:21 01/29/20 16:55 01/29/20 20:19 Range/Units Bedside Glucose (Misc Panel) 152 293 166 70-105 MG/DL Microbiology Microbiology 01/25/20 Blood Culture - Preliminary, Resulted No Growth after 72 hours. All specime... Discharge Medications Scheduled Apixaban (Eliquis) 5 Mg Tablet, 5 MG PO BID, (Reported) Aspirin (Aspirin EC) 81 Mg Tablet.dr, 81 MG PO DAILY, (Reported) Atorvastatin Calcium (Atorvastatin Calcium) 10 Mg Tablet, 10 MG PO QHS, (Reported) Bupropion HCl (Bupropion Xl) 150 Mg Tab.er.24h, 150 MG PO DAILY, (Reported) Fluticasone Propionate (Flonase Allergy Relief) 9.9 Ml [place].susp, 2 SPRAYS NA DAILY, (Reported) Levocetirizine Dihydrochloride (Levocetirizine Dihydrochloride) 5 Mg Tablet, 5 MG PO QHS, (Reported) Lisinopril/Hydrochlorothiazide (Lisinopril-Hctz 10-12.5 mg Tab) 1 Each Tablet, 1 TAB PO DAILY Omeprazole (Omeprazole) 20 Mg Capsule.dr, 20 MG PO DAILY, (Reported) Oxycodone HCl (Oxycontin) 30 Mg Tab.er.12h, 30 MG PO Q8H, (Reported) Scheduled PRN Dicyclomine HCl (Dicyclomine HCl) 10 Mg Capsule, 10 MG PO TID PRN for ABDOMINAL PAIN Metoclopramide HCl (Metoclopramide HCl) 10 Mg Tablet, 10 MG PO BID PRN for NAUSEA Allergies Coded Allergies: povidone-iodine (Verified Allergy, Unknown, 08/18/18) soap (Verified Allergy, Unknown, 08/18/18) COBY FALLON MD Jan 30, 2020 11:34
[2020-01-30] MEDS ORDERED: GABA-843 PO (11:35)
[2020-01-30] MEDS ORDERED: GABA-1171 PO (11:36)
[2020-02-08 04:07] LABS: DOPAMINE PLASMA <30 pg/mL (0-48); EPINEPHRINE PLASMA 53 pg/mL (0-62); METANEPHRINE PLASMA 37.3 pg/mL (0.0-88.0); NOREPINEPHRINE PLASMA 326 pg/mL (0-874); NORMETANEPHRINE PLASMA 72.1 pg/mL (0.0-136.8)
--- NOTE | 2020-02-09 14:40 | ECGEPIP ---
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
--- NOTE | 2020-02-09 14:40 | ECGEPIP ---
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
--- NOTE | 2020-02-20 11:06 | REP ---
NUCLEAR GASTRIC EMPTYING SCAN: HISTORY: Nausea, anorexia and abdominal pain. FINDINGS: Following the oral administration of 1.03 mCi technetium-99m sulfur colloid and 2 scrambled eggs in 6 ounces of water, multiple images of the upper abdomen are performed in the anterior and posterior projections. Gastric activity is measured. At the end of 90 minutes, 100% of the ingested activity has emptied from the stomach. T1/2 is calculated at 29 minutes. IMPRESSION: Rapid gastric emptying with no evidence of delay. MTDD
[2020-02-21 05:07] LABS: VANILLYLMANDELIC ACID,URINE 2.4 mg/L (Undefined)
[2020-03-08] MEDS ORDERED: HYDR-3910 PO (09:53)
[2020-03-08] MEDS ORDERED: BACL10TA2 PO (09:53)
[2020-03-08] MEDS ORDERED: INSU100I12 SQ (09:53)
[2020-03-16] MEDS ORDERED: HYDR500C3 PO (10:31)
== END 2020-01-30 14:03 | disposition home health service (06) | DRG 392 ==
LOC: M ED 15:46 → EDBD 15:46 → M ED INP 20:19 → M MSPAV 01-26 16:04 → ENRESERV 01-26 16:05
PROVIDERS: ADMIT Internal Medicine; ATTEND Family Medicine
DX: R11.2 Nausea with vomiting, unspecified (principal); N17.9 Acute kidney failure, unspecified; I12.9 Hypertensive chronic kidney disease with stage 1 through stage 4 chronic kidney disease, or unspecified chronic kidney disease; N18.3 Chronic kidney disease, stage 3 (moderate); E11.22 Type 2 diabetes mellitus with diabetic chronic kidney disease; G47.33 Obstructive sleep apnea (adult) (pediatric); F32.9 Major depressive disorder, single episode, unspecified; E11.40 Type 2 diabetes mellitus with diabetic neuropathy, unspecified; E86.0 Dehydration; E27.8 Other specified disorders of adrenal gland; M10.9 Gout, unspecified; K21.9 Gastro-esophageal reflux disease without esophagitis; D45 Polycythemia vera; R16.2 Hepatomegaly with splenomegaly, not elsewhere classified; E66.9 Obesity, unspecified; Z68.32 Body mass index [BMI] 32.0-32.9, adult; Z87.891 Personal history of nicotine dependence; Z79.01 Long term (current) use of anticoagulants; Z89.512 Acquired absence of left leg below knee; Z86.718 Personal history of other venous thrombosis and embolism; Z79.891 Long term (current) use of opiate analgesic; Z79.899 Other long term (current) drug therapy; Z86.711 Personal history of pulmonary embolism; Z88.8 Allergy status to other drugs, medicaments and biological substances; Z91.048 Other nonmedicinal substance allergy status

== ENCOUNTER 2020-02-15 13:21 | Emergency (ER) | payer MEDICARE, MEDICAID ==
[~2020-02-15] VITALS: Ht 195.6 cm; Wt 123.2 kg
[~2020-02-15 13:21] MED LIST changes: +DICY1CAP8 PO; +FLON1SPR; +GABA-1171 PO; +LISI10TA15 PO; +METO10TA2 PO; +OXYC30TA72 PO
[2020-02-15] MEDS ORDERED: NORCO, ANEXSIA 5/325MG TABLET (HYDROcodone/ACETAMINOPHEN) PO ONE (14:30)
--- NOTE | 2020-02-15 15:02 | REPVR ---
PROCEDURE INFORMATION: Exam: XR Right Knee Exam date and time: 02/15/2020 2:51 PM Age: 59 years old Clinical indication: Pain; Knee; Right; Patient HX: PT had recent fall TECHNIQUE: Imaging protocol: XR Right knee. Views: 4 or more views. COMPARISON: CR Knee, Ap, Lat 01/16/2015 3:40 PM FINDINGS: Bones/joints: Right TKA. Hardware appears intact. No acute fracture. No dislocation. Well corticated 5 mm ossification superior to the patella. Soft tissues: Normal. IMPRESSION: No acute osseous abnormality. Electronically signed by: Nat Moore On 02/15/2020 15:01:31 PM
--- NOTE | 2020-02-15 15:03 | REPVR ---
PROCEDURE INFORMATION: Exam: XR Right Hip with Pelvis when Performed Exam date and time: 02/15/2020 2:51 PM Age: 59 years old Clinical indication: Pain and injury or trauma; Initial encounter; Sprain or strain; Hip pain; Right hip; Patient HX: PT had recent fall TECHNIQUE: Imaging protocol: XR Right hip with pelvis when performed. Views: 2 or 3 views. COMPARISON: CT ABD/PEL W/PO CONTRAST ONLY 01/25/2020 6:46 PM FINDINGS: Bones/joints: Mild left hip joint DJD. Minimal right hip joint DJD. Degenerative change of the lower lumbar spine. No acute fracture. No dislocation. Well corticated ossification along the medial aspect of the right femoral neck, unchanged. Soft tissues: Unremarkable. Vasculature: Calcified pelvic phleboliths. IMPRESSION: No acute osseous abnormality. Electronically signed by: Nat Moore On 02/15/2020 15:03:27 PM
[2020-02-15 15:47] VITALS: BP 170/95
[2020-02-15] MEDS ORDERED: SODIUM BICARBONATE 8.4% INJ 50MEQ 50 ML VIAL As Ordered ONE (16:06)
[2020-03-08] MEDS ORDERED: HYDR-3910 PO (09:53)
[2020-03-08] MEDS ORDERED: INSU100I12 SQ (09:53)
[2020-03-08] MEDS ORDERED: BACL10TA2 PO (09:53)
[2020-03-16] MEDS ORDERED: HYDR500C3 PO (10:31)
== END 2020-02-15 16:43 | disposition home or self-care (01) ==
LOC: EDBD 13:21 → M ED 13:21
DX: S70.01XA Contusion of right hip, initial encounter (principal); S80.01XA Contusion of right knee, initial encounter; W01.0XXA Fall on same level from slipping, tripping and stumbling without subsequent striking against object, initial encounter; F17.200 Nicotine dependence, unspecified, uncomplicated; Z79.82 Long term (current) use of aspirin; Z79.891 Long term (current) use of opiate analgesic; Z79.899 Other long term (current) drug therapy; Z88.8 Allergy status to other drugs, medicaments and biological substances

== ENCOUNTER → 2020-03-13 | Outpatient (CLI) | payer MEDICARE, MEDICAID ==
[~2020-03-13] MED LIST changes: +BACL10TA2 PO; +HYDR500C3 PO; +INSU100I12 SQ
[2020-03-13 14:37] LABS: BASO # 0.2 10^3/uL (0.0-0.2); EOS # 0.5 10^3/uL (0.0-0.5); EOS % 4.5 % (0.0-3.0); HEMATOCRIT 60.4 % (42.0-52.0); HEMOGLOBIN 17.5 g/dl (13.5-17.5); LYMPH # 1.3 10^3/uL (1.5-5.0); LYMPH % 11.7 % (24.0-44.0); MEAN CORPUSCULAR HEMOGLOBIN 21.6 pg (27.0-33.0); MEAN CORPUSCULAR VOLUME 74.4 fl (80.0-96.0); MONO # 0.4 10^3/uL (0.0-0.8); NEUTROPHILS # 8.6 10^3/uL (1.5-8.5); PLATELET COUNT, AUTOMATED 546 10^3/uL (150-450); RED BLOOD COUNT 8.12 10^6/uL (4.30-6.10); WHITE BLOOD COUNT 11.1 10^3/uL (4.0-10.0)
[2020-03-13 15:02] LABS: ALBUMIN 1.9 GM/DL (3.2-5.2); BILIRUBIN,TOTAL 0.4 MG/DL (0.2-1.0); CALCIUM LEVEL 9.3 MG/DL (8.5-10.1); CREATININE FOR GFR 1.78 MG/DL (0.70-1.30); FOLATE 10.1 NG/ML (>5.4); GLOMERULAR FILTRATION RATE 41.9 (>56); PERCENT SATURATION 11.4 % (19.7-50.0); POTASSIUM SERUM 5.1 MEQ/L (3.5-5.1); TOTAL PROTEIN 4.1 GM/DL (6.4-8.2)
[2020-03-14 08:09] LABS: ERYTHROPOIETIN 1.3 mIU/mL (2.6-18.5)
[2020-03-15 03:07] LABS: F8 ACTIVITY FOR F8 PANEL 77 % (56-140); F8 ACTIVITY vWB FOR F8 PANEL 50 % (50-200); F8 ANTIGEN FOR F8 PANEL 147 % (50-200)
[2020-03-26 06:25] LABS: JAK2 MUTATIONS FOR PATH SENDOU See Pathology Report
== END ==
LOC: M LAB 13:17
PROVIDERS: ATTEND Internal Medicine Hematology & Oncology
DX: D75.1 Secondary polycythemia (principal)

== ENCOUNTER 2020-04-13 11:58 | Emergency (ER) | payer MEDICARE, MEDICAID ==
[~2020-04-13] VITALS: Ht 195.6 cm; Wt 115.9 kg
--- NOTE | 2020-04-13 13:37 | REP ---
INDICATION: fall with pain COMPARISON: 02/15/2020 TECHNIQUE: Four views FINDINGS: The knee prosthesis is unchanged. There is no acute fracture, dislocation, or subluxation. There is evidence of anterior soft tissue swelling. An effusion cannot be ruled out. IMPRESSION: As above <Electronically signed by Aramis Sahni > 04/13/20 [id number]
--- NOTE | 2020-04-13 13:39 | REP ---
INDICATION: fall with pain. COMPARISON: 03/21/2010 TECHNIQUE: Five views total FINDINGS: Multiple views of the left ribs show no fracture or osseous lesion. The accompanying frontal view of the chest shows no cardiomegaly, infiltrates, effusions, or pneumothoraces. IMPRESSION: Negative left rib series. No significant change from the prior exam. <Electronically signed by Aramis Sahni > 04/13/20 [id number]
[2020-04-13] MEDS ORDERED: LIDOCAINE 5% (LIDODERM) PATCH TD ONE (14:00)
[2020-04-13] MEDS ORDERED: LIDO5DIS41 TOP (14:08)
[2020-04-13 14:26] VITALS: BP 159/72
[2020-04-13] MEDS ORDERED: **NOTE PATIENT COMMENT** MISC XX SCH (21:00)
== END 2020-04-13 14:30 | disposition home or self-care (01) ==
LOC: M ED 11:58 → EDBD 11:58 → M ED 14:30
DX: M25.561 Pain in right knee (principal); S20.212A Contusion of left front wall of thorax, initial encounter; W01.198A Fall on same level from slipping, tripping and stumbling with subsequent striking against other object, initial encounter; Y92.018 Other place in single-family (private) house as the place of occurrence of the external cause; E11.9 Type 2 diabetes mellitus without complications; I12.9 Hypertensive chronic kidney disease with stage 1 through stage 4 chronic kidney disease, or unspecified chronic kidney disease; N18.30 Chronic kidney disease, stage 3 unspecified; J44.9 Chronic obstructive pulmonary disease, unspecified; K21.9 Gastro-esophageal reflux disease without esophagitis; G62.9 Polyneuropathy, unspecified; G47.33 Obstructive sleep apnea (adult) (pediatric); E78.5 Hyperlipidemia, unspecified; Z86.718 Personal history of other venous thrombosis and embolism; Z79.899 Other long term (current) drug therapy; Z79.82 Long term (current) use of aspirin; Z79.4 Long term (current) use of insulin; Z79.01 Long term (current) use of anticoagulants; Z88.8 Allergy status to other drugs, medicaments and biological substances; Z91.048 Other nonmedicinal substance allergy status

== ENCOUNTER 2020-04-23 14:19 | Emergency (ER) | payer MEDICARE, MEDICAID ==
[~2020-04-23 14:19] MED LIST changes: +LIDO5DIS41 TOP
[2020-04-23 16:33] LABS: BASO # 0.2 10^3/uL (0.0-0.2); BASO % 1.9 % (0.0-1.0); EOS # 0.6 10^3/uL (0.0-0.5); EOS % 5.6 % (0.0-3.0); HEMATOCRIT 56.3 % (42.0-52.0); HEMOGLOBIN 16.7 g/dl (13.5-17.5); LYMPH # 1.7 10^3/uL (1.5-5.0); LYMPH % 14.8 % (24.0-44.0); MEAN CORPUSCULAR HGB CONC 29.7 g/dl (32.0-36.5); MEAN CORPUSCULAR VOLUME 74.1 fl (80.0-96.0); MONO # 0.6 10^3/uL (0.0-0.8); MONO % 5.5 % (0.0-5.0); NEUTROPHILS # 8.1 10^3/uL (1.5-8.5); NEUTROPHILS % 71.5 % (36.0-66.0); PLATELET COUNT, AUTOMATED 585 10^3/uL (150-450); WHITE BLOOD COUNT 11.3 10^3/uL (4.0-10.0)
--- NOTE | 2020-04-23 16:42 | REP ---
INDICATION: edema. COMPARISON: Comparison chest x-ray 13 April 2020.. TECHNIQUE: Portable upright AP radiograph. FINDINGS: Monitoring electrodes are seen. The lungs are symmetrically aerated and free of infiltrate. Pleural angles are sharp. Heart size is normal. There are degenerative changes in the thoracic spine. Pulmonary vasculature is not increased. IMPRESSION: No active disease. <Electronically signed by Jeff Chris > 04/23/20 1630
--- NOTE | 2020-04-23 16:55 | REP ---
INDICATION: swelling. COMPARISON: Comparison study October 04, 2018.. TECHNIQUE: Bilateral lower extremity duplex venous ultrasound. FINDINGS: The deep veins are anechoic and fully compressible from the groin to the popliteal fossa in the right and left lower extremity. Color flow imaging is homogeneous. Spectral Doppler interrogation demonstrates intact respiratory variation in flow and normal manual augmentation of flow. There is no evidence of deep vein thrombosis. IMPRESSION: Negative bilateral lower extremity duplex venous ultrasound. No evidence of deep vein thrombosis. <Electronically signed by Jeff Chris > 04/23/20 0246
[2020-04-23 17:04] LABS: ALBUMIN 1.7 GM/DL (3.2-5.2); BILIRUBIN,TOTAL 0.3 MG/DL (0.2-1.0); CALCIUM LEVEL 8.8 MG/DL (8.5-10.1); CREATININE FOR GFR 1.59 MG/DL (0.70-1.30); GLOMERULAR FILTRATION RATE 47.7 (>56); POTASSIUM SERUM 4.8 MEQ/L (3.5-5.1); TOTAL PROTEIN 3.9 GM/DL (6.4-8.2)
[2020-04-23] MEDS ORDERED: abdominal binder (17:42)
[2020-04-23 17:49] LABS: APPEARANCE, URINE CLEAR (CLEAR); BACTERIA, URINE AUTO NEGATIVE (NEGATIVE); BILIRUBIN, URINE AUTO NEGATIVE (NEGATIVE); BLOOD, URINE BLOOD NEGATIVE (NEGATIVE); COLOR, URINE YELLOW (YELLOW); GLUCOSE, URINE (UA) AUTO 2+ mg/dL (NEGATIVE); KETONE, URINE AUTO NEGATIVE (NEGATIVE); LEUKOCYTE ESTERASE, URINE AUTO NEGATIVE (NEGATIVE); NITRITE, URINE AUTO NEGATIVE (NEGATIVE); PROTEIN, URINE AUTO 3+ mg/dL (NEGATIVE); RBC, URINE AUTO 4 /HPF (0-3); SPECIFIC GRAVITY URINE AUTO 1.018 (1.002-1.035); SQUAMOUS EPITHELIAL CELL UR AU 0 /HPF (0-6); UROBILINOGEN, URINE AUTO 0.2 mg/dL (0.0-2.0); WBC, URINE AUTO 2 /HPF (0-3)
[2020-04-23 18:30] VITALS: BP 171/92
== END 2020-04-23 19:15 | disposition home or self-care (01) ==
LOC: M ED 14:19
DX: R60.0 Localized edema (principal); N28.9 Disorder of kidney and ureter, unspecified; I12.9 Hypertensive chronic kidney disease with stage 1 through stage 4 chronic kidney disease, or unspecified chronic kidney disease; E11.9 Type 2 diabetes mellitus without complications; G47.30 Sleep apnea, unspecified; G89.29 Other chronic pain; M54.9 Dorsalgia, unspecified; Z86.711 Personal history of pulmonary embolism; Z86.718 Personal history of other venous thrombosis and embolism; Z79.899 Other long term (current) drug therapy; Z79.82 Long term (current) use of aspirin; Z79.4 Long term (current) use of insulin; Z79.01 Long term (current) use of anticoagulants

== ENCOUNTER → 2020-05-02 | Outpatient (REF) | payer MEDICARE, MEDICAID ==
[~2020-05-02] MED LIST changes: +abdominal binder
[2020-05-02 18:27] LABS: ALBUMIN 2.2 GM/DL (3.2-5.2); BILIRUBIN,TOTAL 0.4 MG/DL (0.2-1.0); CALCIUM LEVEL 9.7 MG/DL (8.5-10.1); CHOLESTEROL RISK RATIO 2.625 (<5); CREATININE FOR GFR 1.95 MG/DL (0.70-1.30); GLOMERULAR FILTRATION RATE 37.7 (>56); POTASSIUM SERUM 5.5 MEQ/L (3.5-5.1); THYROID STIMULATING HORMONE 1.64 uIU/ML (0.358-3.740); TOTAL PROTEIN 4.7 GM/DL (6.4-8.2)
[2020-05-02 18:45] LABS: HEMOGLOBIN A1c 7.6 %
== END ==
LOC: M LAB REF 17:35
PROVIDERS: ATTEND Family Medicine Addiction Medicine
DX: E11.9 Type 2 diabetes mellitus without complications (principal)

== ENCOUNTER 2020-06-15 13:52 | Inpatient (IN) | payer MEDICARE, MEDICAID ==
[~2020-06-15] VITALS: Ht 195.6 cm; Wt 130.2 kg
[~2020-06-15 13:52] MED LIST changes: -AMIT25TA PO; +AMIT25TA17 PO; -BUPR150T3 PO; +BUPR150T4 PO; +GABA-282 PO; -GABA-843 PO; +HYDR-3490 PO; -HYDR25TAB PO; +HYDR500C PO; +ISOS1TAB36 PO; -ISOS60TA2 PO; -MAG400TA PO; +MAGN400T35 PO
--- NOTE | 2020-06-15 15:10 | REP ---
INDICATION: chest discomfort, crackles. COMPARISON: Comparison chest x-ray April 23, 2020. TECHNIQUE: Two views.. FINDINGS: Clothing artifact overlies the precordium on the frontal view. The lungs are well inflated and free of infiltrate. Pleural angles are sharp. Heart size is normal. Pulmonary vasculature is not increased. There are mild degenerative changes in the thoracic spine. The aorta is slightly tortuous. IMPRESSION: No active disease.. <Electronically signed by Jeff Chris > 06/15/20 [id number]
[2020-06-15] MEDS: READI-CAT 2 PO SCH ×2 (15:33→16:33)
[2020-06-15 15:53] LABS: BASO # 0.2 10^3/uL (0.0-0.2); BASO % 2.4 % (0.0-1.0); EOS # 0.5 10^3/uL (0.0-0.5); HEMOGLOBIN 16.5 g/dl (13.5-17.5); LYMPH # 1.8 10^3/uL (1.5-5.0); LYMPH % 18.9 % (24.0-44.0); MEAN CORPUSCULAR HEMOGLOBIN 21.7 pg (27.0-33.0); MEAN CORPUSCULAR HGB CONC 29.5 g/dl (32.0-36.5); MEAN CORPUSCULAR VOLUME 73.7 fl (80.0-96.0); MONO # 0.5 10^3/uL (0.0-0.8); MONO % 5.6 % (0.0-5.0); NEUTROPHILS # 6.3 10^3/uL (1.5-8.5); NEUTROPHILS % 66.2 % (36.0-66.0); PLATELET COUNT, AUTOMATED 501 10^3/uL (150-450); WHITE BLOOD COUNT 9.5 10^3/uL (4.0-10.0)
[2020-06-15 16:30] LABS: ALBUMIN 1.5 GM/DL (3.2-5.2); BILIRUBIN,DIRECT 0.1 MG/DL (0.0-0.2); BILIRUBIN,TOTAL 0.4 MG/DL (0.2-1.0); CALCIUM LEVEL 8.7 MG/DL (8.5-10.1); CK-MB VALUE MASS 7.3 NG/ML (<3.6); CREATININE FOR GFR 1.78 MG/DL (0.70-1.30); GLOMERULAR FILTRATION RATE 41.9 (>56); MB/CK RELATIVE INDEX 3.84 (< OR =4); POTASSIUM SERUM 4.1 MEQ/L (3.5-5.1); TOTAL PROTEIN 3.7 GM/DL (6.4-8.2); TROPONIN I 0.02 NG/ML (< 0.10)
--- NOTE | 2020-06-15 17:52 | REPVR ---
PROCEDURE INFORMATION: Exam: CT Abdomen And Pelvis Without Contrast Exam date and time: 06/15/2020 3:01 PM Age: 59 years old Clinical indication: Pain and condition or disease; Hernia; Complications not specified; Abdominal pain; Generalized; Additional info: Diffuse abd pain, known hernia supra umbil to lower abd TECHNIQUE: Imaging protocol: Computed tomography of the abdomen and pelvis without contrast. Radiation optimization: All CT scans at this facility use at least one of these dose optimization techniques: automated exposure control; mA and/or kV adjustment per patient size (includes targeted exams where dose is matched to clinical indication); or iterative reconstruction. Other contrast: Oral, redicat; COMPARISON: CT ABD/PEL W/PO CONTRAST ONLY 01/25/2020 6:46 PM FINDINGS: Lungs: No suspicious mass or airspace process in the visualized lung bases. Liver: Liver appears enlarged without focal lesion. Gallbladder and bile ducts: Gallbladder is present and shows no evidence of gallstone. Pancreas: Noncontrast pancreas shows no obvious mass or adjacent fluid. Spleen: Spleen is enlarged measuring 16 cm. No focal lesion. Adrenal glands: Left adrenal demonstrates a 15 mm fat density lesion on axial image 52 consistent with a benign adenoma. No change. Kidneys and ureters: Kidneys show no stone or hydronephrosis. Stomach and bowel: No evidence of small bowel obstruction. Terminal ileum has normal appearance. No evidence of acute diverticulitis. Appendix: Normal caliber appendix is identified, with no adjacent inflammation. Intraperitoneal space: No pneumoperitoneum. Vasculature: Atherosclerotic change present in the aorta, without aneurysm. Lymph nodes: Small mesenteric and retroperitoneal lymph nodes. No bulky adenopathy. Urinary bladder: Urinary bladder appears normal. Reproductive: No overt enlargement of the prostate gland. Bones/joints: Mild degenerative change in the lumbar spine and hip joints. Soft tissues: Diffuse body wall edema is present. Right gluteus minimus benign lipoma, incidental Other findings: Evaluation of solid organs is limited without IV contrast. IMPRESSION: 1. No bowel containing hernia. The patient's reported supraumbilical hernia is not well visualized, possibly secondary to the extensive body wall edema that is present. 2. Hepatosplenomegaly without evidence of ascites. 3. Incidental benign left adrenal gland adenoma. COMMENTS: Consistent with the [employer]'s Incidental Findings Committee white paper (J Am Holley Radiol 2017): For any incidental adrenal lesion greater than 1 cm but less than 4 cm classified in this report as benign, likely benign, or containing fat (including classification as an adenoma or myelolipoma), no follow-up imaging is recommended per consensus recommendations based on imaging criteria. Further lab evaluation could be pursued if warranted based on clinical findings. Electronically signed by: Raoul Mendoza On 06/15/2020 17:52:41 PM
[2020-06-15] MEDS ORDERED: FUROSEMIDE 40MG/4ML VIAL (J1940) IV ONE (19:00)
--- NOTE | 2020-06-15 19:33 | HPEPDOC ---
[facility] Medical History & Physical Date of Admission Jun 15, 2020 Date of Service: Jun 15, 2020 Attending Physician: TONI OLIVA MD History and Physical TIME OF SERVICE: 940pm CHIEF COMPLAINT: sent from cancer center HISTORY OF PRESENT ILLNESS: This 59 yr old M was sent from the cancer center for evaluation of sharp 4/10 in severity left sided chest pain that occurred at 3AM for about 1 min. The pain was not associated with other symptoms. In the ER he also c/o abdominal pain that is worse with eating; he is scheduled to see a Surgeon to discuss removal of implanted mesh to repair a hernia. CT of the abdomen was done which revealed generalized ansarca therefore Gautam Hernandez requested admission for eval and management of fluid overload. REVIEW OF SYSTEMS: 12 point review of systems negative except as listed in HPI PAST MEDICAL/ SURGICAL HISTORY: Newly diagnosed Leukemia Chronic HTN Hx of RUE DVT & PE CKD3 SARAH Depression DM 2 w neuropathy A1C 7.6% s/p L BKA (had L chronic foot ulcer that progressed to chronic osteomyelitis after stepping on a metal hayder) hx of Gout GERD Chronic back pain / DJD Tonsillectomy Ventral hernia repair w mesh placement Inguinal hernia repair Knee surgery R hallux amputation SOCIAL HISTORY: Former smoker / no alcohol / + THC FAMILY HISTORY: Father had DM Mother recently had CAD & DM 1 Brother recently 1 Brother has DM, ESRD, hx of V tach, chronic sys/bee CHF, homozygous factor V Leiden deficiency and LLE DVT w PE ALLERGIES: Please see below. HOME MEDICATIONS: Please see below. PHYSICAL EXAMINATION: Vital Signs Date Time Temp Pulse Resp B/P (MAP) Pulse Ox O2 Delivery O2 Flow Rate FiO2 06/15/20 13:52 98.3 81 15 186/93 (124) 96 Room Air GENERAL APPEARANCE: NAD HEENT: EOMI/ mask in place CARDIOVASCULAR: RRR/NMRG/ LLE edema LUNGS: CTAB on RA ABDOMEN: distended/ soft and slightly tender with palpation MUSCULOSKELETAL: NCAT NEUROLOGICAL: CN -12 grossly intact PSYCHIATRIC: A&O x 3 LABORATORY DATA: Laboratory Tests 06/15/20 15:39 Laboratory Tests 2 06/15/20 15:39: Immature Granulocyte % (Auto) 1.9, Neutrophils (%) (Auto) 66.2H, Lymphocytes (%) (Auto) 18.9L, Monocytes (%) (Auto) 5.6H, Eosinophils (%) (Auto) 5.0H, Basophils (%) (Auto) 2.4H, Neutrophils # (Auto) 6.3, Lymphocytes # (Auto) 1.8, Monocytes # (Auto) 0.5, Eosinophils # (Auto) 0.5, Basophils # (Auto) 0.2, Nucleated Red Blood Cells % (auto) 0.0, Anion Gap 5L, Glomerular Filtration Rate 41.9L, Lactic Acid Level 1.0, Calcium Level 8.7, Total Bilirubin 0.4, Direct Bilirubin 0.1, Aspartate Amino Transf (AST/SGOT) 22, Alanine Aminotransferase (ALT/SGPT) 17, Alkaline Phosphatase 98, Total Creatine Kinase 190, Creatine Kinase MB 7.3H, Creatine Kinase MB Relative Index 3.84, Troponin I 0.02, TO-Eae-D-Type Natriuretic Peptide 6507H, Total Protein 3.7L, Albumin 1.5L, Albumin/Globulin Ratio 0.7, Lipase 74 IMAGING: Chest xray IMPRESSION: No active disease.. CT abd "IMPRESSION: 1. No bowel containing hernia. The patient's reported supraumbilical hernia is not well visualized, possibly secondary to the extensive body wall edema that is present. 2. Hepatosplenomegaly without evidence of ascites. 3. Incidental benign left adrenal gland adenoma. " MICROBIOLOGY: see below ASSESSMENT: is a 59 yr old w a hx of DM, CKD 3 and DM w neuropathy and newly diagnosed leukemia who will be admitted for evaluation of chest pain and ansarca . PLAN: 1. Chest pain EKG NSR 74 Plan: telemetry /serial trops & BNP / may need out pt stress test 2. Ansarca Echo in 2017 was normal Plan: f/u Echo / Lasix 3. Uncontrolled HTN Plan: Lisinopril & lasix 4. CKD 3 Plan: f/u BMP 5 DM 2 w neuropathy Plan: FSBS, SSI w hypoglycemia protocol, /insulin 6 Hx of RUE DVT & PE Plan: apixaban 7 SARAH Plan: own CPAP 8 Depression Plan: bupropion 9 Chronic back pain / DJD Plan: oxycontin 10. Obesity w BMI of 32.2 complicates care DVT px n/a bc of NOAC Dispo: home after more than 2 midnights stay Home Medications Scheduled Apixaban (Eliquis) 5 Mg Tablet, 5 MG PO BID Aspirin (Aspirin EC) 81 Mg Tablet.dr, 81 MG PO DAILY Atorvastatin Calcium (Atorvastatin Calcium) 10 Mg Tablet, 10 MG PO QHS Baclofen (Baclofen) 10 Mg Tablet, 10 MG PO BID Bupropion HCl (Bupropion Xl) 150 Mg Tab.er.24h, 150 MG PO DAILY Fluticasone Propionate (Flonase Allergy Relief) 9.9 Ml [place].susp, 2 SPRAYS NA DAILY Gabapentin (Gabapentin) 100 Mg Capsule, 100 MG PO TID Hydralazine HCl (Hydralazine HCl) 25 Mg Tablet, 25 MG PO TID Hydroxyurea (Hydroxyurea) 500 Mg Capsule, 500 MG PO DAILY Insulin Regular, Human (NovoLIN R Flexpen) 100 Unit/1 Ml Insuln.pen, 8 UNIT SQ DAILY Levocetirizine Dihydrochloride (Levocetirizine Dihydrochloride) 5 Mg Tablet, 5 MG PO QHS Lidocaine (Lidoderm) 5% Adh..patch, 2 PATCH TD DAILY Apply to area of pain, Remove patch after 12 hours APPLY TO SHOULDERS Lisinopril/Hydrochlorothiazide (Lisinopril-Hctz 10-12.5 mg Tab) 1 Each Tablet, 1 TAB PO DAILY Omeprazole (Omeprazole) 20 Mg Capsule.dr, 20 MG PO DAILY Oxycodone HCl (Oxycontin) 30 Mg Tab.er.12h, 30 MG PO Q8H Scheduled PRN Dicyclomine HCl (Dicyclomine HCl) 10 Mg Capsule, 10 MG PO TID PRN for ABDOMINAL PAIN Metoclopramide HCl (Metoclopramide HCl) 10 Mg Tablet, 10 MG PO BID PRN for NAUSEA Oxycodone Hcl (Oxycodone HCl) 15 Mg Tablet, 15 MG PO Q4H PRN for PAIN Allergies Coded Allergies: povidone-iodine (Verified Allergy, Unknown, 08/18/18) soap (Verified Allergy, Unknown, 08/18/18) A-FIB/CHADSVASC A-FIB History Current/History of A-Fib/PAF?: No Current PO Anticoag Therapy: No TONI OLIVA MD Jun 15, 2020 19:33
[2020-06-15] MEDS ORDERED: GLUCAGON INJ 1MG VIAL SC PRN (19:45)
[2020-06-15] MEDS ORDERED: ACETAMINOPHEN TAB 650MG DOSE (2X325MG) PO PRN (19:45)
[2020-06-15] MEDS ORDERED: GLUCOSE 4GM CHEW TABLET PO PRN (19:45)
[2020-06-15] MEDS ORDERED: MOM 30ML SUSPENSION UDC PO PRN (19:45)
[2020-06-15] MEDS ORDERED: MAALOX 30 ML SUSP *UDC PO PRN (19:45)
[2020-06-15] MEDS ORDERED: DEXTROSE 50% 50 ML SYRINGE IV PRN (19:45)
[2020-06-15] MEDS ORDERED: DICY10CA13 PO (20:50)
[2020-06-15] MEDS ORDERED: HYDR500C3 PO (20:50)
[2020-06-15] MEDS ORDERED: METO10TA2 PO (20:50)
[2020-06-15] MEDS ORDERED: LISI10TA15 PO (20:50)
[2020-06-15] MEDS ORDERED: GABA-1171 PO (20:50)
[2020-06-15] MEDS ORDERED: LIDO5DIS41 TD (20:50)
[2020-06-15] MEDS ORDERED: OXYC-1 PO (20:51)
[2020-06-15] MEDS: HumaLOG INSULIN (NovoLOG) PER UNIT SC SCH (20:52)
--- NOTE | 2020-06-15 21:10 | ECGEPIP ---
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
[2020-06-15 23:51] VITALS: BP 150/78
[2020-06-16] MEDS: MORPHINE 2 MG/ML 1ML VIAL (J2270) IV PRN ×4 (01:35→21:10)
[2020-06-16 04:19] LABS: HEMATOCRIT 53.9 % (42.0-52.0); HEMOGLOBIN 16.1 g/dl (13.5-17.5); MEAN CORPUSCULAR HEMOGLOBIN 21.8 pg (27.0-33.0); MEAN CORPUSCULAR HGB CONC 29.9 g/dl (32.0-36.5); MEAN CORPUSCULAR VOLUME 73.1 fl (80.0-96.0); PLATELET COUNT, AUTOMATED 453 10^3/uL (150-450); RED BLOOD COUNT 7.37 10^6/uL (4.30-6.10); WHITE BLOOD COUNT 8.6 10^3/uL (4.0-10.0)
[2020-06-16 04:58] LABS: ALBUMIN 1.4 GM/DL (3.2-5.2); BILIRUBIN,TOTAL 0.3 MG/DL (0.2-1.0); CALCIUM LEVEL 8.6 MG/DL (8.5-10.1); CREATININE FOR GFR 1.73 MG/DL (0.70-1.30); GLOMERULAR FILTRATION RATE 43.3 (>56); MAGNESIUM LEVEL 1.5 MG/DL (1.8-2.4); PHOSPHORUS LEVEL 3.1 MG/DL (2.5-4.9); POTASSIUM SERUM 4.1 MEQ/L (3.5-5.1); TOTAL PROTEIN 3.5 GM/DL (6.4-8.2); TROPONIN I 0.02 NG/ML (< 0.10)
[2020-06-16 06:00] VITALS: BP 175/72
[2020-06-16] MEDS: HumuLIN R (REGULAR) INSULIN (NovoLIN R) **100U/ML** PER UNIT SC SCH (07:51)
[2020-06-16] MEDS: HumaLOG INSULIN (NovoLOG) PER UNIT SC SCH ×5 (07:52→21:00)
[2020-06-16] MEDS ORDERED: METOCLOPRAMIDE 10 MG TAB PO PRN (09:00)
[2020-06-16] MEDS ORDERED: FUROSEMIDE 40MG/4ML VIAL (J1940) IV SCH (09:00)
[2020-06-16] MEDS ORDERED: DICYCLOMINE 10 MG CAP PO PRN (09:00)
[2020-06-16] MEDS: oxyCODONE 15 MG CR TAB PO SCH ×2 (09:26→17:24)
[2020-06-16] MEDS: FLUTICASONE PROP 0.05% NASAL SPRAY 16 GM (FLONASE) SCH (09:26)
[2020-06-16] MEDS: buPROPion **XL** TABLET 150MG (WELLBUTRIN XL) PO SCH (09:26)
[2020-06-16] MEDS: OMEPRAZOLE 20 MG CAP PO SCH (09:27)
[2020-06-16] MEDS: APIXABAN 5 MG TAB (ELIQUIS) PO SCH ×2 (09:27→21:07)
[2020-06-16] MEDS: ASPIRIN 81 MG ENTERIC TAB PO SCH (09:27)
[2020-06-16] MEDS: CETIRIZINE (ZyrTEC) 10 MG TAB PO SCH (09:27)
[2020-06-16] MEDS: hydroCHLOROthiazide 12.5 MG CAPSULE PO SCH (09:27)
[2020-06-16] MEDS: GABAPENTIN 100 MG CAP PO SCH ×3 (09:28→21:07)
[2020-06-16] MEDS: HYDROXYUREA 500 MG CAP PO SCH (09:28)
[2020-06-16] MEDS: lisinopriL 10 MG TAB PO SCH (09:28)
[2020-06-16] MEDS: BACLOFEN 10 MG TAB PO SCH ×2 (09:28→21:07)
[2020-06-16] MEDS: LIDOCAINE 5% (LIDODERM) PATCH TD SCH (09:29)
[2020-06-16] MEDS: **hydrALAZINE HCL** 25 MG TAB PO SCH ×3 (09:29→21:08)
--- NOTE | 2020-06-16 11:39 | IPNPDOC ---
Text Note Date of Service The patient was seen on 06/16/20. NOTE SUBJECTIVE: Abdominal pain still present but milder now OBJECTIVE: VITAL SIGNS: Please see below. GENERAL APPEARANCE: NAD HEENT: EOMI/ mask in place CARDIOVASCULAR: RRR/NMRG, has bilateral LE edema LUNGS: CTAB on RA ABDOMEN: distended/ soft, tender with palpation in epigastrium and midabdomen MUSCULOSKELETAL: NCAT NEUROLOGICAL: CN -12 grossly intact, speech clear PSYCHIATRIC: A&O x 3 LABORATORY DATA: reviewed IMAGING: Chest xray IMPRESSION: No active disease.. CT abd "IMPRESSION: 1. No bowel containing hernia. The patient's reported supraumbilical hernia is not well visualized, possibly secondary to the extensive body wall edema that is present. 2. Hepatosplenomegaly without evidence of ascites. 3. Incidental benign left adrenal gland adenoma. " MICROBIOLOGY: see below ASSESSMENT: is a 59 yr old w a hx of DM, CKD 3 and DM w neuropathy and newly diagnosed leukemia who will be admitted for evaluation of chest pain and ansarca. PLAN: 1. Chest pain, i/s/o snow CHF without evidence of ischemia -EKG NSR 74 -troponin negative x 3 -telemetry -elevated proBNP -may need outpt stress test Ansarca most likely 2/2 CHF -Echo in 2017 was normal -f/u Echo that is ordered -daily 40 IV lasix seems to be sufficient for robust output -strict I/Os -daily weights -2L /24h 3. Uncontrolled HTN -Lisinopril & lasix 4. 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 Obesity w BMI of 32.2 complicates care DVT: NOAC Dispo: home after more than 2 midnights stay VS,Fishbone, I+O VS, Fishbone, I+O Laboratory Tests 06/15/20 15:39 06/16/20 04:10 Vital Signs Date Time Temp Pulse Resp B/P (MAP) Pulse Ox O2 Delivery O2 Flow Rate FiO2 06/16/20 09:28 168/70 06/16/20 09:26 16 06/16/20 06:00 97.3 69 94 Room Air I&O- Last 24 Hours up to 6 AM 06/16/20 06:00 Intake Total 1550 ml Output Total 3250 ml Balance -1700 ml MATTHEW CHAPPELL MD Jun 16, 2020 10:28
[2020-06-16 14:00] VITALS: BP 172/88
[2020-06-16] MEDS ORDERED: MAG SULF 1GM/100ML (MAG RUN) 1 GM in IV 1 EA IV ONE (15:00)
[2020-06-16] MEDS ORDERED: FUROSEMIDE 40MG/4ML VIAL (J1940) IV ONE (17:00)
[2020-06-16] MEDS ORDERED: NITROGLYCERIN 0.4 MG SUBL TABLET SL PRN (17:15)
[2020-06-16 18:26] LABS: CALCIUM LEVEL 8.7 MG/DL (8.5-10.1); CREATININE FOR GFR 1.82 MG/DL (0.70-1.30); GLOMERULAR FILTRATION RATE 40.8 (>56); MAGNESIUM LEVEL 1.7 MG/DL (1.8-2.4); POTASSIUM SERUM 4.1 MEQ/L (3.5-5.1); TROPONIN I 0.02 NG/ML (< 0.10)
[2020-06-16] MEDS: ATORVASTATIN 10 MG TAB PO SCH (21:08)
[2020-06-16] MEDS: **NOTE PATIENT COMMENT** MISC XX SCH (21:10)
[2020-06-16 22:00] VITALS: BP 175/78
[2020-06-17] MEDS: oxyCODONE 15 MG CR TAB PO SCH ×3 (01:02→18:34)
[2020-06-17 06:00] VITALS: BP 175/85
--- NOTE | 2020-06-17 06:16 | ECGEPIP ---
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
[2020-06-17] MEDS: MORPHINE 2 MG/ML 1ML VIAL (J2270) IV PRN ×3 (07:56→20:41)
[2020-06-17] MEDS: HumuLIN R (REGULAR) INSULIN (NovoLIN R) **100U/ML** PER UNIT SC SCH (07:57)
[2020-06-17] MEDS: HumaLOG INSULIN (NovoLOG) PER UNIT SC SCH ×4 (07:57→20:39)
[2020-06-17 08:21] LABS: HEMATOCRIT 57.5 % (42.0-52.0); HEMOGLOBIN 16.9 g/dl (13.5-17.5); MEAN CORPUSCULAR HEMOGLOBIN 21.5 pg (27.0-33.0); MEAN CORPUSCULAR HGB CONC 29.4 g/dl (32.0-36.5); MEAN CORPUSCULAR VOLUME 73.2 fl (80.0-96.0); PLATELET COUNT, AUTOMATED 511 10^3/uL (150-450); RED BLOOD COUNT 7.85 10^6/uL (4.30-6.10); WHITE BLOOD COUNT 9.5 10^3/uL (4.0-10.0)
[2020-06-17] MEDS: lisinopriL 10 MG TAB PO SCH (08:32)
[2020-06-17] MEDS: APIXABAN 5 MG TAB (ELIQUIS) PO SCH ×2 (08:32→20:45)
[2020-06-17] MEDS: BACLOFEN 10 MG TAB PO SCH ×2 (08:33→20:47)
[2020-06-17] MEDS: hydroCHLOROthiazide 12.5 MG CAPSULE PO SCH (08:33)
[2020-06-17] MEDS: ASPIRIN 81 MG ENTERIC TAB PO SCH (08:33)
[2020-06-17] MEDS: GABAPENTIN 100 MG CAP PO SCH ×3 (08:33→20:44)
[2020-06-17] MEDS: **hydrALAZINE HCL** 25 MG TAB PO SCH ×3 (08:33→20:47)
[2020-06-17] MEDS: CETIRIZINE (ZyrTEC) 10 MG TAB PO SCH (08:33)
[2020-06-17] MEDS: buPROPion **XL** TABLET 150MG (WELLBUTRIN XL) PO SCH (08:33)
[2020-06-17] MEDS: HYDROXYUREA 500 MG CAP PO SCH (08:34)
[2020-06-17] MEDS: FLUTICASONE PROP 0.05% NASAL SPRAY 16 GM (FLONASE) SCH (08:34)
[2020-06-17] MEDS: OMEPRAZOLE 20 MG CAP PO SCH (08:34)
[2020-06-17] MEDS: LIDOCAINE 5% (LIDODERM) PATCH TD SCH (08:34)
[2020-06-17] MEDS ORDERED: FUROSEMIDE 40MG/4ML VIAL (J1940) IV SCH (09:00)
[2020-06-17] MEDS ORDERED: MAG SULF 1GM/100ML (MAG RUN) 1 GM in IV 1 EA IV ONE (09:00)
--- NOTE | 2020-06-17 11:20 | IPNPDOC ---
Text Note Date of Service The patient was seen on 06/17/20. NOTE SUBJECTIVE: Abdominal pain still present but milder now OBJECTIVE: VITAL SIGNS: Please see below. GENERAL APPEARANCE: NAD HEENT: EOMI/ mask in place CARDIOVASCULAR: RRR/NMRG, has bilateral LE edema LUNGS: CTAB on RA ABDOMEN: distended/ soft, tender with palpation in epigastrium and midabdomen EXT: RLE edematous, L stump c/d/i, healed. NEUROLOGICAL: CN -12 grossly intact, speech clear PSYCHIATRIC: A&O x 3 LABORATORY DATA: reviewed, pending AM BMP IMAGING: Chest xray IMPRESSION: No active disease.. CT abd "IMPRESSION: 1. No bowel containing hernia. The patient's reported supraumbilical hernia is not well visualized, possibly secondary to the extensive body wall edema that is present. 2. Hepatosplenomegaly without evidence of ascites. 3. Incidental benign left adrenal gland adenoma. " MICROBIOLOGY: see below ASSESSMENT: is a 59 yr old w a hx of DM, CKD 3 and DM w neuropathy and newly diagnosed leukemia who will be admitted for evaluation of chest pain and ansarca. PLAN: 1. Chest pain, i/s/o snow CHF without evidence of ischemia. Appears to be positional with maybe chest wall pain as well -EKG NSR 74 -troponin negative x 6 now -telemetry -elevated proBNP -may need outpt stress test -SLN PRN Ansarca most likely 2/2 CHF -Echo in 2017 was normal -f/u Echo that is ordered -daily 40 IV lasix seems to be sufficient for robust output. Will hold lasix for now as Cr appeared to have bumped yesterday PM, pending AM BMP -strict I/Os -daily weights -2L /24h 3. Uncontrolled HTN -Lisinopril & lasix 4. 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 Obesity w BMI of 32.2 complicates care DVT: NOAC Dispo: home after more than 2 midnights stay VS,Fishbone, I+O VS, Fishbone, I+O Laboratory Tests 06/16/20 17:34 06/17/20 08:03 Vital Signs Date Time Temp Pulse Resp B/P (MAP) Pulse Ox O2 Delivery O2 Flow Rate FiO2 06/17/20 10:00 18 06/17/20 08:32 172/80 06/17/20 06:00 96.9 69 97 Room Air I&O- Last 24 Hours up to 6 AM 06/17/20 06:00 Intake Total 3470 ml Output Total 5725 ml Balance -2255 ml MATTHEW CHAPPELL MD Jun 17, 2020 11:20
[2020-06-17 11:43] LABS: CALCIUM LEVEL 8.8 MG/DL (8.5-10.1); CREATININE FOR GFR 1.9 MG/DL (0.70-1.30); GLOMERULAR FILTRATION RATE 38.8 (>56); POTASSIUM SERUM 5.6 MEQ/L (3.5-5.1)
[2020-06-17 14:00] VITALS: BP 163/68
[2020-06-17] MEDS: amLODIPine 10 MG TAB PO SCH (14:34)
[2020-06-17] MEDS: oxyCODONE 5MG TAB PO PRN (14:34)
[2020-06-17] MEDS: METOPROLOL TART 12.5 MG PER 1/2 TAB PO SCH ×2 (14:34→20:47)
[2020-06-17 15:00] LABS: CALCIUM LEVEL 8.7 MG/DL (8.5-10.1); CREATININE FOR GFR 1.78 MG/DL (0.70-1.30); GLOMERULAR FILTRATION RATE 41.9 (>56); POTASSIUM SERUM 4.1 MEQ/L (3.5-5.1)
[2020-06-17 15:01] LABS: MAGNESIUM LEVEL 1.8 MG/DL (1.8-2.4)
[2020-06-17] MEDS: **NOTE PATIENT COMMENT** MISC XX SCH (20:40)
[2020-06-17] MEDS: ATORVASTATIN 10 MG TAB PO SCH (20:45)
[2020-06-17 22:00] VITALS: BP 168/68
[2020-06-18] MEDS: oxyCODONE 15 MG CR TAB PO SCH ×3 (01:33→16:35)
[2020-06-18] MEDS: MORPHINE 2 MG/ML 1ML VIAL (J2270) IV PRN (05:14)
[2020-06-18 06:00] VITALS: BP 176/88
[2020-06-18 06:51] LABS: HEMATOCRIT 56.5 % (42.0-52.0); HEMOGLOBIN 16.4 g/dl (13.5-17.5); MEAN CORPUSCULAR HEMOGLOBIN 21.4 pg (27.0-33.0); MEAN CORPUSCULAR VOLUME 73.6 fl (80.0-96.0); PLATELET COUNT, AUTOMATED 476 10^3/uL (150-450); RED BLOOD COUNT 7.68 10^6/uL (4.30-6.10); WHITE BLOOD COUNT 9.6 10^3/uL (4.0-10.0)
[2020-06-18 07:14] LABS: CALCIUM LEVEL 8.7 MG/DL (8.5-10.1); CREATININE FOR GFR 2.07 MG/DL (0.70-1.30); GLOMERULAR FILTRATION RATE 35.2 (>56)
[2020-06-18] MEDS: HumaLOG INSULIN (NovoLOG) PER UNIT SC SCH ×4 (08:26→20:25)
[2020-06-18] MEDS: HYDROXYUREA 500 MG CAP PO SCH (08:27)
[2020-06-18] MEDS: HumuLIN R (REGULAR) INSULIN (NovoLIN R) **100U/ML** PER UNIT SC SCH (08:27)
[2020-06-18] MEDS: CETIRIZINE (ZyrTEC) 10 MG TAB PO SCH (08:28)
[2020-06-18] MEDS: ASPIRIN 81 MG ENTERIC TAB PO SCH (08:28)
[2020-06-18] MEDS: buPROPion **XL** TABLET 150MG (WELLBUTRIN XL) PO SCH (08:28)
[2020-06-18] MEDS: OMEPRAZOLE 20 MG CAP PO SCH (08:28)
[2020-06-18] MEDS: GABAPENTIN 100 MG CAP PO SCH ×3 (08:28→21:43)
[2020-06-18] MEDS: METOPROLOL TART 25 MG TABLET PO SCH ×2 (08:29→21:43)
[2020-06-18] MEDS: amLODIPine 10 MG TAB PO SCH (08:29)
[2020-06-18] MEDS: APIXABAN 5 MG TAB (ELIQUIS) PO SCH ×2 (08:29→21:42)
[2020-06-18] MEDS: BACLOFEN 10 MG TAB PO SCH ×2 (08:29→21:43)
[2020-06-18] MEDS: FLUTICASONE PROP 0.05% NASAL SPRAY 16 GM (FLONASE) SCH (08:30)
[2020-06-18] MEDS: **hydrALAZINE HCL** 25 MG TAB PO SCH ×2 (08:34→13:37)
[2020-06-18] MEDS: LIDOCAINE 5% (LIDODERM) PATCH TD SCH ×2 (09:00→21:42)
[2020-06-18 14:00] VITALS: BP 157/85
[2020-06-18] MEDS ORDERED: LIDOCAINE 1% MDV 20ML VIAL As Ordered ONE (15:19)
--- NOTE | 2020-06-18 17:00 | REP ---
PROCEDURE NAME: MIDLINE INSERTION W/ SITERITE CLINICAL INFORMATION: Poor access. COMPARISON: None. PROCEDURE DESCRIPTION: The procedure was performed by NISH Snyder, under the direct supervision of Dr. Chris. The risks and benefits of the procedure were explained to the patient and an informed consent was obtained both verbally and written. Directly prior to the start of the procedure a formal time-out was completed in the procedure room. The left basilic vein was localized using ultrasound guidance. The skin was prepped and draped in sterile fashion. One mL of 1% lidocaine 10 mg/mL was used as a local anesthetic. Using ultrasound guidance the left basilic vein was cannulated, and a 0.018 guidewire was inserted. The needle was removed and a 5.5 Setswana dilator and peel-away sheath was inserted over the guidewire. A 5.5 Setswana dual lumen catheter was cut to a length of 12 cm. The dilator was removed and the catheter was inserted over the guidewire. The peel-away sheath was removed and the catheter was flushed with heparinized saline as per hospital protocol. The catheter was affixed to the skin and a sterile dressing was applied. The patient tolerated the procedure well and there were no immediate complications. CONCLUSION: Mid line insertion into the left basilic vein. <Electronically signed by Ofelia Snow > 06/18/20 1621 <Electronically signed by Jeff Chris > 06/18/20 [id number]
--- NOTE | 2020-06-18 18:44 | IPNPDOC ---
Text Note Date of Service The patient was seen on 06/18/20. NOTE SUBJECTIVE: -No acute events overnight, continued to have midabdominal pain OBJECTIVE: VITAL SIGNS: Please see below. GENERAL APPEARANCE: NAD HEENT: EOMI/ mask in place CARDIOVASCULAR: RRR/NMRG, has bilateral LE edema LUNGS: CTAB on RA ABDOMEN: distended/ soft, tender with palpation in epigastrium and midabdomen EXT: RLE edematous, L stump c/d/i, healed. NEUROLOGICAL: CN -12 grossly intact, speech clear PSYCHIATRIC: A&O x 3 LABORATORY DATA: reviewed Na 141 K 4 Cr 2.07 WBC 9.6 Hgb 16.4 platelets 476 IMAGING: Chest xray IMPRESSION: No active disease.. CT abd "IMPRESSION: 1. No bowel containing hernia. The patient's reported supraumbilical hernia is not well visualized, possibly secondary to the extensive body wall edema that is present. 2. Hepatosplenomegaly without evidence of ascites. 3. Incidental benign left adrenal gland adenoma. " MICROBIOLOGY: see below ASSESSMENT: is a 59 yr old w a hx of DM, CKD 3 and DM w neuropathy and newly diagnosed leukemia who will be admitted for evaluation of chest pain and ansarca. PLAN: 1. Chest pain, i/s/o snow CHF without evidence of ischemia. Appears to be positional with maybe chest wall pain as well -EKG NSR 74 -troponin negative x 6 now -telemetry -elevated proBNP -may need outpt stress test -SLN PRN -tylenol PRN Ansarca most likely 2/2 CHF -Echo in 2017 was normal -f/u Echo that is ordered -Have been responsive to IV lasix however now with rising Cr despite continued peripheral edema, consulted nephrology. Will hold off on more lasix until nephrology eval and discussion today -strict I/Os -daily weights -2L /24h -Dc'd lisinopril, HCTZ in the setting of JANIE on CKD3 3. Uncontrolled HTN -Dc'd lisinopril, HCTZ in the setting of JANIE on CKD3 -started on metop now on 25mg BID, continued hydralazine 50 TID and added on amlodipine 10mg QD 4. JANIE on CKD 3 -Daily BMP -nephrology consulted -CT A/P showed no hydronephrosis or obstructive pathology -Held ACEi and HCTZ -With ongoing diuresis, currently on hold pending nephrology eval 5 DM 2 w neuropathy -FSBS -SSI -hypoglycemia protocol 6 Hx of RUE DVT & PE -apixaban 7 SARAH -own nocturnal CPAP 8 Depression -bupropion 9 Chronic back pain / DJD -oxycontin 10. Obesity w BMI of 32.2 complicates care DVT: NOAC Dispo: home after more than 2 midnights stay VS,Fishbone, I+O VS, Fishbone, I+O Laboratory Tests 06/17/20 08:03 06/17/20 14:19 06/18/20 06:13 Vital Signs Date Time Temp Pulse Resp B/P (MAP) Pulse Ox O2 Delivery O2 Flow Rate FiO2 06/18/20 06:00 98.7 70 18 176/88 (117) 97 Room Air I&O- Last 24 Hours up to 6 AM 06/18/20 06:00 Intake Total 2010 ml Output Total 6050 ml Balance -4040 ml MATTHEW CHAPPELL MD Jun 18, 2020 07:45
[2020-06-18] MEDS: FUROSEMIDE 40MG/4ML VIAL (J1940) IV SCH (18:45)
[2020-06-18] MEDS: **NOTE PATIENT COMMENT** MISC XX SCH (21:00)
[2020-06-18] MEDS: **hydrALAZINE** 50 MG TAB PO SCH (21:43)
[2020-06-18] MEDS: ATORVASTATIN 10 MG TAB PO SCH (21:43)
[2020-06-18] MEDS: oxyCODONE 5MG TAB PO PRN (21:53)
[2020-06-18 22:00] VITALS: BP 173/92
--- NOTE | 2020-06-18 23:29 | CR ---
NEPHROLOGY CONSULTATION DATE: 06/18/2020 CONSULTATION REQUESTED BY: Paula Aguila M.D. REASON FOR CONSULTATION: Generalized anasarca and acute kidney injury. HISTORY OF PRESENT ILLNESS: Mr. Herrera is a 59-year-old gentleman with multiple chronic medical problems including a long history of diabetes, hypertension, prior history of DVT and pulmonary embolism, with Factor V Leiden mutation, history of stage 3 of chronic kidney disease and peripheral vascular disease. He has a prior left below the knee amputation. Patient is admitted for generalized anasarca. Apparently, he is followed by oncology for erythrocytosis and has been on Hydroxyurea. He was sent to the Emergency Room for admission due to generalized anasarca and was admitted on 06/15/2020. His kidney function worsened following attempt to diurese him. Nephrology consultation was requested and patient is seen this morning. He just completed his echocardiogram. PAST MEDICAL/SURGICAL HISTORY: Significant for: 1. Recent history of diagnosis of leukemia. 2. Hypertension. 3. History of DVT and pulmonary embolism. 4. History of stage 3 of chronic kidney disease. 5. Type 2 diabetes. 6. Depression. 7. Obstructive sleep apnea. 8. Peripheral vascular disease; status post left below the knee amputation. 9. Gout. 10.Gastroesophageal reflux disease. 11.Chronic back pain and degenerative joint disease. 12.History of tonsillectomy. 13.History of ventral hernia repair with mesh placement. 14.History of inguinal hernia repair. 15.Right knee replacement. 16.Right hallux amputation. FAMILY HISTORY: Significant for diabetes, chronic kidney disease and DVT with pulmonary embolus. His mother is with end-stage renal disease.. PERSONAL AND SOCIAL HISTORY: Patient is a former smoker and denies any alcohol or intravenous drug use. He does use marijuana. ALLERGIES: He has allergy to Povidone-iodine. CURRENT MEDICATIONS IN THE HOSPITAL: Include: 1. Hydralazine 50 mg every 8 hours. 2. Lidoderm patch two patches a day. 3. Metoprolol 25 mg b.i.d. 4. Amlodipine 10 mg daily. 5. Atorvastatin 10 mg daily. 6. Nitroglycerin 0.4 mg p.r.n. for chest pain. 7. Eliquis 5 mg b.i.d. 8. Aspirin 81 mg daily. 9. Baclofen 10 mg b.i.d. 10.Wellbutrin XL 150 mg daily. 11.Bentyl 10 mg t.i.d. p.r.n. for abdominal pain. 12.Flonase nasal spray daily. 13.Gabapentin 100 mg t.i.d. 14.Hydroxyurea 500 mg daily. 15.Reglan 10 mg b.i.d. p.r.n. nausea. 16.Prilosec 20 mg daily. 17.Oxycodone 15 mg every 4 hours p.r.n. for pain. 18.OxyContin 30 mg every 8 hours. 19.Zyrtec 10 mg daily. 20.Insulin per sliding scale. 21.Magnesium hydroxide. 22.Milk of Magnesia 30 mL p.r.n. constipation. REVIEW OF SYSTEMS: Patient denies any fever or chills. He reports worsening anasarca over last few weeks. Ears, nose and throat are unremarkable. Cardiovascular system is significant for hypertension and generalized anasarca. Respiratory system is negative for any cough or hemoptysis. He does have a history of obstructive sleep apnea. GI system is significant for gastroesophageal reflux disease. Patient denies any vomiting or diarrhea. system is negative for dysuria or hematuria. Endocrine system is significant for type 2 diabetes. There is no history known for thyroid problems. Hematological system is significant for recent diagnosis of leukemia and long history of erythrocytosis. He has been on Hydroxyurea. He is also anticoagulated because of prior history of DVT and pulmonary emboli. Psychosocial system is significant for depression. Neurological system is significant for severe peripheral neuropathy. Musculoskeletal system is significant for back pain and degenerative joint disease. He has a left below the knee amputation. PHYSICAL EXAMINATION: GENERAL: The patient has generalized anasarca all over his body. VITALS: Temperature 97.4 degrees Fahrenheit, heart rate 72 per minute, respiratory rate 18 per minute, blood pressure 157/85 mmHg and oxygen saturation 95% on room air. HEENT: Head atraumatic, but face is swollen. There is no oral thrush or ulcers. NECK: Neck veins are difficult to be assessed. HEART: Sounds are regular. LUNGS: With slightly diminished breath sounds at bases. ABDOMEN: Obese and edematous. Bowel sounds are present. EXTREMITIES: No cyanosis or clubbing. There is generalized anasarca on all limbs. He has left below the knee amputation. Right big toe is also surgically absent. LABORATORY DATA: WBC count 9.6, hemoglobin 16.4, hematocrit 56.5, platelets 476,000. Sodium 141, potassium 4.0, chloride 108, CO2 29, BUN 24, creatinine 2.07, glucose 272 and calcium 8.7. There is no urinalysis done during this admission so far. IMAGING STUDIES: CAT scan of abdomen and pelvis done on 06/15/2020 is reviewed. Hepatosplenomegaly was noted and a left adrenal gland adenoma. Kidneys looked unremarkable. I have also reviewed his prior labs. Patient did not have any proteinuria until 2018, and then he has developed significant proteinuria on most recent urinalysis. He has been about 3+ protein, which started in February 2018 while in June 2017, he did not have any proteinuria. Since then consistently urinalysis has showed 3+ protein. PROBLEMS: 1. Generalized anasarca: Most likely this is related to nephrotic syndrome. Patient had a serum albumin level of only 1.4. Just on 06/16/2020, his total protein was 3.5. We will get a 24-hour urine collection for total protein quantification. We will also get protein electrophoresis and immunoelectrophoresis. I will also get complements, ANCA, lupus anticoagulant and double stranded anti-DNA. Patient is likely to require a kidney biopsy for further evaluation. At this point, we will try to diurese him and see how he does. 2. Acute kidney injury superimposed on chronic kidney disease: Patient has known history of chronic kidney disease probably related to diabetic nephropathy. His acute kidney injury is probably related to nephrotic syndrome. We will continue to monitor closely and see how his kidney function goes. 3. Hypertension: Blood pressure seems to be acceptable. He will remain on current antihypertensive medications. Once his kidney function levels off, then we can consider starting him on RUPAL inhibitor or angiotensin receptor [place]. Thank you for involving me in the care of Mr. Herrera. I will follow him along with you. TANNER
[2020-06-18 23:38] LABS: APPEARANCE, URINE CLEAR (CLEAR); BACTERIA, URINE AUTO NEGATIVE (NEGATIVE); BILIRUBIN, URINE AUTO NEGATIVE (NEGATIVE); BLOOD, URINE BLOOD NEGATIVE (NEGATIVE); COLOR, URINE STRAW (YELLOW); GLUCOSE, URINE (UA) AUTO 1+ mg/dL (NEGATIVE); KETONE, URINE AUTO NEGATIVE (NEGATIVE); LEUKOCYTE ESTERASE, URINE AUTO NEGATIVE (NEGATIVE); NITRITE, URINE AUTO NEGATIVE (NEGATIVE); PROTEIN, URINE AUTO 3+ mg/dL (NEGATIVE); RBC, URINE AUTO 1 /HPF (0-3); SPECIFIC GRAVITY URINE AUTO 1.008 (1.002-1.035); SQUAMOUS EPITHELIAL CELL UR AU 0 /HPF (0-6); UROBILINOGEN, URINE AUTO 0.2 mg/dL (0.0-2.0); WBC, URINE AUTO 1 /HPF (0-3)
[2020-06-19] MEDS: oxyCODONE 15 MG CR TAB PO SCH ×3 (00:35→17:31)
[2020-06-19] MEDS: SODIUM CHLORIDE 0.9% INJ 10 ML SYR IV PRN ×2 (02:07→09:38)
[2020-06-19] MEDS: FUROSEMIDE 40MG/4ML VIAL (J1940) IV SCH ×3 (02:07→17:33)
[2020-06-19 06:00] VITALS: BP 160/60
[2020-06-19] MEDS: **hydrALAZINE** 50 MG TAB PO SCH ×3 (06:41→21:45)
[2020-06-19] MEDS: oxyCODONE 5MG TAB PO PRN ×3 (06:41→21:46)
[2020-06-19] MEDS: SODIUM CHLORIDE 0.9% INJ 10 ML SYR IV SCH ×2 (06:41→17:33)
[2020-06-19 07:43] LABS: HEMATOCRIT 56.7 % (42.0-52.0); HEMOGLOBIN 16.7 g/dl (13.5-17.5); MEAN CORPUSCULAR HEMOGLOBIN 21.8 pg (27.0-33.0); MEAN CORPUSCULAR HGB CONC 29.5 g/dl (32.0-36.5); PLATELET COUNT, AUTOMATED 467 10^3/uL (150-450); RED BLOOD COUNT 7.66 10^6/uL (4.30-6.10); WHITE BLOOD COUNT 9.3 10^3/uL (4.0-10.0)
[2020-06-19 07:53] LABS: INR 1.11; PROTHROMBIN TIME 14.5 SECONDS (12.5-14.3)
[2020-06-19 07:54] LABS: PARTIAL THROMBOPLASTIN TIME 32.9 SECONDS (24.2-38.5)
[2020-06-19 08:04] LABS: CALCIUM LEVEL 9.2 MG/DL (8.5-10.1); CREATININE FOR GFR 2.15 MG/DL (0.70-1.30); GLOMERULAR FILTRATION RATE 33.7 (>56); POTASSIUM SERUM 4.3 MEQ/L (3.5-5.1)
[2020-06-19] MEDS: METOPROLOL TART 25 MG TABLET PO SCH ×2 (08:45→21:45)
[2020-06-19] MEDS: HYDROXYUREA 500 MG CAP PO SCH (08:45)
[2020-06-19] MEDS: APIXABAN 5 MG TAB (ELIQUIS) PO SCH (08:45)
[2020-06-19] MEDS: OMEPRAZOLE 20 MG CAP PO SCH (08:45)
[2020-06-19] MEDS: LIDOCAINE 5% (LIDODERM) PATCH TD SCH (08:45)
[2020-06-19] MEDS: CETIRIZINE (ZyrTEC) 10 MG TAB PO SCH (08:46)
[2020-06-19] MEDS: amLODIPine 10 MG TAB PO SCH (08:46)
[2020-06-19] MEDS: ASPIRIN 81 MG ENTERIC TAB PO SCH (08:46)
[2020-06-19] MEDS: GABAPENTIN 100 MG CAP PO SCH ×3 (08:47→21:45)
[2020-06-19] MEDS: buPROPion **XL** TABLET 150MG (WELLBUTRIN XL) PO SCH (08:47)
[2020-06-19] MEDS: HumaLOG INSULIN (NovoLOG) PER UNIT SC SCH ×4 (08:47→20:50)
[2020-06-19] MEDS: HumuLIN R (REGULAR) INSULIN (NovoLIN R) **100U/ML** PER UNIT SC SCH (08:48)
[2020-06-19] MEDS: BACLOFEN 10 MG TAB PO SCH ×2 (08:49→21:45)
[2020-06-19] MEDS: FLUTICASONE PROP 0.05% NASAL SPRAY 16 GM (FLONASE) SCH (08:49)
[2020-06-19] MEDS: **NOTE PATIENT COMMENT** MISC XX SCH (08:54)
--- NOTE | 2020-06-19 13:11 | IPNPDOC ---
Text Note Date of Service The patient was seen on 06/19/20. NOTE SUBJECTIVE: -No acute events overnight OBJECTIVE: VITAL SIGNS: Please see below. GENERAL APPEARANCE: NAD HEENT: EOMI/ mask in place CARDIOVASCULAR: RRR/NMRG, has bilateral LE edema LUNGS: CTAB on RA ABDOMEN: distended/ soft, tender with palpation in epigastrium and midabdomen EXT: RLE edematous, L stump c/d/i, healed. NEUROLOGICAL: CN -12 grossly intact, speech clear PSYCHIATRIC: A&O x 3 LABORATORY DATA: reviewed IMAGING: Chest xray IMPRESSION: No active disease.. CT abd "IMPRESSION: 1. No bowel containing hernia. The patient's reported supraumbilical hernia is not well visualized, possibly secondary to the extensive body wall edema that is present. 2. Hepatosplenomegaly without evidence of ascites. 3. Incidental benign left adrenal gland adenoma. " MICROBIOLOGY: see below ASSESSMENT: is a 59 yr old w a hx of DM, CKD 3 and DM w neuropathy and newly diagnosed leukemia who will be admitted for evaluation of chest pain and ansarca. PLAN: 1. Chest pain, i/s/o snow CHF without evidence of ischemia. Appears to be positional with maybe chest wall pain as well. Non-cardiac. -EKG NSR 74 -troponin negative x 6 now -telemetry -elevated proBNP -may need outpt stress test -SLN PRN -tylenol PRN Ansarca most likely 2/2 CHF as well as 3rd spacing with hypoalbuminemia with nephrotic range proteinuria with suspected nephrotic syndrome -Echo in 2017 was normal -f/u Echo that is ordered -Have been responsive to IV lasix however now with rising Cr despite continued peripheral edema, consulted nephrology --> restarted him on lasix 40 IV Q8H, pe nding renal biopsy for nephrotic syndrome -strict I/Os -daily weights -2L /24h -Dc'd lisinopril, HCTZ in the setting of JANIE on CKD3 3. Uncontrolled HTN -Dc'd lisinopril, HCTZ in the setting of JANIE on CKD3 -started on metop now on 25mg BID, continued hydralazine 50 TID and added on amlodipine 10mg QD 4. JANIE on CKD 3 -Daily BMP -nephrology consulted -CT A/P showed no hydronephrosis or obstructive pathology -Held ACEi and HCTZ -With ongoing diuresis -pending renal biopsy 5 DM 2 w neuropathy -FSBS -SSI -hypoglycemia protocol 6 Hx of RUE DVT & PE -apixaban 7 SARAH -own nocturnal CPAP 8 Depression -bupropion 9 Chronic back pain / DJD -oxycontin 10. Obesity w BMI of 32.2 complicates care DVT: NOAC Dispo: home after more than 2 midnights stay VS,Fishbone, I+O VS, Fishbone, I+O Laboratory Tests 06/19/20 07:10 Vital Signs Date Time Temp Pulse Resp B/P (MAP) Pulse Ox O2 Delivery O2 Flow Rate FiO2 06/19/20 12:47 18 Room Air 06/19/20 12:45 160/88 06/19/20 08:45 74 06/19/20 06:00 97.6 94 I&O- Last 24 Hours up to 6 AM 06/19/20 06:00 Intake Total 1680 ml Output Total 4350 ml Balance -2670 ml MATTHEW CHAPPELL MD Jun 19, 2020 13:11
[2020-06-19 14:00] VITALS: BP 134/74
--- NOTE | 2020-06-19 17:26 | IPN ---
PROGRESS NOTE DATE: 06/19/2020 SUBJECTIVE: Mr. Herrera is seen this morning at his bedside. He has generalized anasarca and felt to have nephrotic syndrome. He also has acute on chronic kidney disease which is slightly worse with diuresis. A 24 hour urine collection is currently in progress for assessment of his nephrotic syndrome. The patient denies any dyspnea or chest pain. No nausea, vomiting, dysuria, hematuria, fever or chills reported. PHYSICAL EXAMINATION: VITAL SIGNS: Temperature 97 degrees Fahrenheit, hear rate is 80 per minute and respiratory rate is 18 per minute. Blood pressure is 160/88 mmHg and oxygen saturation is 94% on room air. His weight has not changed over the last couple of days. INTAKE AND OUTPUT: Input and output from yesterday shows a negative fluid balance of about 2 liters. HEENT: His head is atraumatic. NECK: Supple. JVD is difficult to be assessed. HEART: Heart sounds are regular. LUNGS: Slightly diminished breath sounds. ABDOMEN: Obese and nontender. Bowel sounds are present. EXTREMITIES: Without any cyanosis or clubbing. He had a left below the knee amputation, generalized anasarca is noticed. NEUROLOGIC: He is at his baseline mentation without any focal deficit. LABORATORY DATA: Today's labs showed a WBC count of 9.3, hemoglobin of 16.7 and hematocrit of 56.7. Sodium of 143, potassium 4.3, chloride 107, CO2 27, BUN 27 and creatinine 2.15. Glucose of 279 and calcium 9.2. PROBLEMS: 1. Generalized anasarca, most likely this is the result of nephrotic syndrome. His serum albumin is only 1.4. A 24 hour urine is being collected for assessment of proteinuria and urine protein electrophoresis. The rest of serology is pending. His complements did come back with C3 of 84 and C4 of 25. The rest of the serology is still pending. I have discussed with the patient about the potential need for a kidney biopsy and he is agreeable. We will order a kidney biopsy under CT guidance by Interventional Radiology. His Eliquis will be put on hold until after the biopsy. 2. Acute kidney injury superimposed on chronic kidney disease. Patient has underlying chronic kidney disease probably related to diabetic nephropathy. Acute kidney injury is probably related to diuresis. Kidney function is being monitored on a daily basis. 3. Hypertension. Blood pressure seems reasonably well-controlled. No changes in antihypertensive medications are being made today.
[2020-06-19] MEDS: ATORVASTATIN 10 MG TAB PO SCH (21:45)
[2020-06-19 22:00] VITALS: BP 127/73
[2020-06-20] VITALS (9 sets, daily range): BP systolic 96–172; BP diastolic 60–87
[2020-06-20] MEDS: oxyCODONE 15 MG CR TAB PO SCH ×3 (01:13→17:52)
[2020-06-20] MEDS: FUROSEMIDE 40MG/4ML VIAL (J1940) IV SCH ×2 (01:14→11:11)
[2020-06-20 05:34] LABS: TOTAL PROTEIN 24 HOUR URINE 19297.6 MG/24HR (50-150); URINE TOTAL PROTEIN 344.6 MG/DL (0-12)
[2020-06-20 06:19] LABS: HEMATOCRIT 54.2 % (42.0-52.0); HEMOGLOBIN 15.7 g/dl (13.5-17.5); MEAN CORPUSCULAR HEMOGLOBIN 21.3 pg (27.0-33.0); MEAN CORPUSCULAR VOLUME 73.6 fl (80.0-96.0); PLATELET COUNT, AUTOMATED 398 10^3/uL (150-450); RED BLOOD COUNT 7.36 10^6/uL (4.30-6.10); WHITE BLOOD COUNT 9.2 10^3/uL (4.0-10.0)
[2020-06-20] MEDS: oxyCODONE 5MG TAB PO PRN ×3 (06:23→20:44)
[2020-06-20] MEDS: SODIUM CHLORIDE 0.9% INJ 10 ML SYR IV SCH ×2 (06:24→17:53)
[2020-06-20] MEDS: **hydrALAZINE** 50 MG TAB PO SCH ×3 (06:24→21:57)
[2020-06-20 06:41] LABS: CREATININE FOR GFR 2.29 MG/DL (0.70-1.30); GLOMERULAR FILTRATION RATE 31.3 (>56); POTASSIUM SERUM 3.6 MEQ/L (3.5-5.1)
[2020-06-20] MEDS: ASPIRIN 81 MG ENTERIC TAB PO SCH (08:15)
[2020-06-20] MEDS: HumaLOG INSULIN (NovoLOG) PER UNIT SC SCH ×4 (08:15→20:30)
[2020-06-20] MEDS: HumuLIN R (REGULAR) INSULIN (NovoLIN R) **100U/ML** PER UNIT SC SCH (08:15)
[2020-06-20] MEDS: HYDROXYUREA 500 MG CAP PO SCH (08:16)
[2020-06-20] MEDS: OMEPRAZOLE 20 MG CAP PO SCH (08:16)
[2020-06-20] MEDS: buPROPion **XL** TABLET 150MG (WELLBUTRIN XL) PO SCH (08:16)
[2020-06-20] MEDS: BACLOFEN 10 MG TAB PO SCH ×2 (08:16→20:44)
[2020-06-20] MEDS: CETIRIZINE (ZyrTEC) 10 MG TAB PO SCH (08:16)
[2020-06-20] MEDS: GABAPENTIN 100 MG CAP PO SCH ×3 (08:16→20:44)
[2020-06-20] MEDS: METOPROLOL TART 25 MG TABLET PO SCH ×3 (08:18→20:44)
[2020-06-20] MEDS: amLODIPine 10 MG TAB PO SCH (08:19)
[2020-06-20] MEDS: LIDOCAINE 5% (LIDODERM) PATCH TD SCH ×2 (08:21→22:47)
[2020-06-20] MEDS: **NOTE PATIENT COMMENT** MISC XX SCH (08:21)
[2020-06-20] MEDS: FLUTICASONE PROP 0.05% NASAL SPRAY 16 GM (FLONASE) SCH (08:21)
[2020-06-20 08:37] LABS: MAGNESIUM LEVEL 1.6 MG/DL (1.8-2.4); PHOSPHORUS LEVEL 3.9 MG/DL (2.5-4.9)
--- NOTE | 2020-06-20 10:35 | ECHO ---
DATE OF PROCEDURE: 06/18/2020 Age: 59 Gender: Male Height: 166 cm Weight: 125 kg REFERRING PHYSICIAN: Paula Aguila MD INDICATION: Dyspnea. MEASUREMENTS: IVS 1.5 cm LV 5.5 cm LVPW 1.4 cm LA 4.5 cm Aorta 3.4 cm RV 4.0 LA volume index 30 IVC 2.5 cm Mitral E wave velocity 84 Mitral A wave 43 E prime septal 6.5 E prime lateral 9.6 FINDINGS: This study is of good technical quality. Underlying sinus rhythm with wide QRS complex. Left ventricle is of normal size. Moderate left ventricular hypertrophy is present. Estimated overall EF is approximately 50% to 55%. No segmental wall motion abnormalities are appreciated. Right ventricle appears borderline dilated, but normally contractile. Left atrium is moderately enlarged. Right atrium also appears enlarged. The aortic valve is sclerotic, but has three cusps and preserved mobility. Mitral, tricuspid, and pulmonic valves appear normal. No pericardial effusion is noted. Inferior vena cava is dilated and there is minimal collapse with inspiration indicative of high central venous pressure. The aortic root is normal. The aortic arch and abdominal aorta were not well seen. Doppler interrogation reveals no aortic stenosis or insufficiency. There is trace mitral insufficiency. Tricuspid and pulmonic valves are functionally competent. Mitral inflow pattern and tissue Doppler velocities of the mitral annulus reveal likely normal diastolic function even thought tissue Doppler velocities are mildly reduced. CONCLUSIONS: 1. Study is of good technical quality, underlying sinus rhythm with wide QRS complex. 2. Normal LV size with moderate LVH and low normal LV systolic function, estimated LVEF 50% to 55%. Probably normal diastolic function. 3. Aortic sclerosis with no stenosis or insufficiency. 4. Trace mitral insufficiency. 5. Competent tricuspid and pulmonic valves. 6. Elevated central venous pressure. 7. Unable to estimate pulmonary artery pressure. COMMENTS: Study is most consistent with hypertensive heart disease. MTDD
[2020-06-20] MEDS: SODIUM CHLORIDE 0.9% INJ 10 ML SYR IV PRN ×2 (11:13→15:44)
[2020-06-20] MEDS ORDERED: POTASSIUM CHLORIDE 10 MEQ SR TABLET PO ONE (11:30)
[2020-06-20 11:49] LABS: DRVV SCREEN 72.5 SEC
[2020-06-20 11:50] LABS: PTT LUPUS TYPE ANTICOAG SCREEN 1.8 (0-1.2)
[2020-06-20 11:58] LABS: DRVV CONFIRM 67.8 SEC; LUPUS CONFIRM RATIO 1.8
--- NOTE | 2020-06-20 12:49 | IPNPDOC ---
Subjective Date Seen The patient was seen on 06/20/20. Subjective Chief Complaint/HPI Mr. Herrera is a 59 year old male with DM2 with neuropathy, CKD stage 3, and newly diagnosed leukemia who initially present with chest pain, but found to have diffuse anasarca, JANIE, and nephrotic syndrome. This morning, he was not feeling better. He was anxious and reported another incidence of chest pain. Repeat EKG did not demonstrate signs of ischemia, initial troponin negative and pending second troponin. Otherwise, he still has diffuse anasarca. Objective Physical Examination General Exam: Positive: Alert, Cooperative, No Acute Distress Eye Exam: Positive: EOMI ENT Exam: Positive: Atraumatic Neck Exam: Positive: Supple Chest Exam: Positive: Clear to auscultation; Negative: Rales, Rhonchi, Wheezing Heart Exam: Positive: Rate Normal, Regular Rhythm Abdomen Exam: Positive: Normal bowel sounds, Soft, Tenderness (ventral where hernia was located), Hernia Extremity Exam: Positive: Edema (Severe pitting up the leg) Neuro Exam: Positive: Cranial Nerves 3-12 NL Psych Exam: Positive: Anxiety Assessment /Plan Assessment Mr. Herrera is a 59 year old male with DM2 with neuropathy, CKD stage 3, and newly diagnosed leukemia who is here with diffuse anasarca, JANIE, and nephrotic syndrome. Nephrology consulted and recommendations appreciated. Pending renal biopsy and lab work up for nephrotic syndrome. Apixaban held for biopsy Plan/VTE VTE Prophylaxis Ordered?: Yes Plan 1. Anasarca 2/2 nephrotic syndrome -Echocardiogram 06/18/2020 demonstrated EF of 50 to 55% with probably normal diastolic function -Urine studies suggestive of nephrotic syndrome -Pending renal biopsy -Nephrology following, recommendations appreciated -On diuresis with furosemide 2. Atypical chest pain -Sharp chest pain that lasts for a few seconds -Repeat EKG negative for ischemia -Repeated troponin today -Continue aspirin and sublingual nitro as needed -May need outpatient stress test 3. Hypertension/Supine hypertension -Hypotensive while sitting and hypertensive while lying down -Held hypertensives this morning as patient being diuresed -Continue monitoring 4. JANIE on CKD stage 3 -Nephrology consulted, recommendations appreciated -ACEi and HCTZ held -Continuing with diuresis -Pending renal biopsy 5. DM type 2 with neuropathy -Continue FSBS and sliding scale insulin -Continue gabapentin 100mg TID 6. History of RUE DVT and PE -Held apixaban for renal biopsy 7. SARAH -Own nocturnal CPAP 8. Depression/anxiety -Bupropion 9. chronic back pain/DJD -Oxycontin 10. Obesity -BMI 33.7 11. DVT ppx -SCD and TEDs Disposition: Apixaban held for biopsy. Pending biopsy results and lab work up. VS, I&O, 24H, Fishbone Vital Signs/I&O Vital Signs Date Time Temp Pulse Resp B/P (MAP) Pulse Ox O2 Delivery O2 Flow Rate FiO2 06/20/20 11:12 159/86 (110) 06/20/20 08:29 77 06/20/20 08:20 18 Room Air 06/20/20 06:00 96.7 95 I&O- Last 24 Hours up to 6 AM 06/20/20 06:00 Intake Total 1140 ml Output Total 4650 ml Balance -3510 ml Laboratory Data 24H LABS Laboratory Tests 2 06/19/20 16:57: Bedside Glucose (Misc Panel) 204H 06/19/20 20:02: Bedside Glucose (Misc Panel) 248H 06/20/20 02:21: Urine Total Volume (Protein) 5600, Urine Total Protein 24 Hour 22213.6H, Urine Total Protein 344.6H 06/20/20 05:45: Nucleated Red Blood Cells % (auto) 0.0, Anion Gap 5L, Glomerular Filtration Rate 31.3L, Calcium Level 9.0, Phosphorus Level 3.9, Magnesium Level 1.6L 06/20/20 09:09: Troponin I < 0.02 06/20/20 11:49: Bedside Glucose (Misc Panel) 232H CBC/BMP Laboratory Tests 06/20/20 05:45 Microbiology Microbiology 06/15/20 Respiratory Virus Panel (PCR) ([facility]) - Final, Complete ALISON RICE DO Jun 20, 2020 12:49
[2020-06-20] MEDS: MAG SULF 1GM/100ML (MAG RUN) 1 GM in IV 1 EA IV SCH ×2 (13:05→14:19)
--- NOTE | 2020-06-20 13:32 | IPNPDOC ---
Subjective Date Seen The patient was seen on 06/20/20. Subjective Chief Complaint/HPI Pt is eating well. He and nursing staff deny any overnight events. General: Denies: ROS Unobtainable, Chills, Night Sweats, Fatigue, Malaise, Normal Appetite, Other Symptoms Constitutional: Denies: Chills, Fever, Malaise, Night Sweats, Weakness, Fatigue, Weight Loss, Lethargy, Other Pulmonary: Denies: Dyspnea, Cough, Pleuritic Chest Pain, Other Symptoms Objective Physical Examination General Exam: Positive: Alert, Cooperative, No Acute Distress Eye Exam: Positive: EOMI ENT Exam: Positive: Atraumatic Neck Exam: Positive: Supple; Negative: JVD Chest Exam: Positive: Clear to auscultation, Normal air movement; Negative: Rales, Rhonchi, Wheezing Heart Exam: Positive: Rate Normal, Regular Rhythm Abdomen Exam: Positive: Normal bowel sounds, Soft, Tenderness (ventral where hernia was located), Hernia Extremity Exam: Positive: Edema (+2 pitting edema of the legs, however, much improved from yesterday, softer today) Neuro Exam: Positive: Cranial Nerves 3-12 NL Psych Exam: Positive: Mental status NL, Mood NL Assessment /Plan Assessment # Generalized anasarca: possibly secondary to nephrotic syndrome. Kidney biopsy scheduled for tomorrow with IR. Pt has hypoalbuminemia as a result of prot einuria. Pt's C3 is 84 and C4 is 25. The rest of the serology is still pending. I have discussed with the patient about the potential need for a kidney biopsy and he is agreeable. We will order a kidney biopsy under CT guidance by Interventional Radiology. His Eliquis is on hold until after the biopsy. # Acute kidney injury on chronic kidney disease. Patient has underlying chronic kidney disease likely secondary to diabetic nephropathy. JANIE is likely secondary to diuresis. Continue monitoring kidney function daily. # Hypertension. Well-controlled. Continue antihypertensive medications. Plan/VTE VTE Prophylaxis Ordered?: No (Eliquis is held for biopsy) GME ATTESTATION My faculty preceptor for this patient encounter was physically present during the encounter and was fully available. All aspects of the patient interview, examination, medical decision making process, and medical care plan development were reviewed and approved by the faculty preceptor. The faculty preceptor is aware and concurs with the plan as stated in the body of this note and will attest to such by his/her cosignature. VS, I&O, 24H, Fishbone Vital Signs/I&O Vital Signs Date Time Temp Pulse Resp B/P (MAP) Pulse Ox O2 Delivery O2 Flow Rate FiO2 06/20/20 13:05 176/87 06/20/20 08:29 77 06/20/20 08:20 18 Room Air 06/20/20 06:00 96.7 95 I&O- Last 24 Hours up to 6 AM 06/20/20 06:00 Intake Total 1140 ml Output Total 4650 ml Balance -3510 ml Laboratory Data 24H LABS Laboratory Tests 2 06/19/20 16:57: Bedside Glucose (Misc Panel) 204H 06/19/20 20:02: Bedside Glucose (Misc Panel) 248H 06/20/20 02:21: Urine Total Volume (Protein) 5600, Urine Total Protein 24 Hour 98839.6H, Urine Total Protein 344.6H 06/20/20 05:45: Nucleated Red Blood Cells % (auto) 0.0, Anion Gap 5L, Glomerular Filtration Rate 31.3L, Calcium Level 9.0, Phosphorus Level 3.9, Magnesium Level 1.6L 06/20/20 09:09: Troponin I < 0.02 06/20/20 11:49: Bedside Glucose (Misc Panel) 232H CBC/BMP Laboratory Tests 06/20/20 05:45 Microbiology Microbiology 06/15/20 Respiratory Virus Panel (PCR) ([facility]) - Final, Complete Rahul Cabrera DO Jun 20, 2020 13:32
[2020-06-20] MEDS: ATORVASTATIN 10 MG TAB PO SCH (20:44)
[2020-06-21] MEDS: oxyCODONE 15 MG CR TAB PO SCH ×3 (01:12→18:01)
[2020-06-21] MEDS: **hydrALAZINE** 50 MG TAB PO SCH ×3 (05:14→21:22)
[2020-06-21] MEDS: SODIUM CHLORIDE 0.9% INJ 10 ML SYR IV SCH ×2 (05:14→18:01)
[2020-06-21 06:00] VITALS: BP 146/82
[2020-06-21] MEDS: HYDROXYUREA 500 MG CAP PO SCH (08:55)
[2020-06-21] MEDS: OMEPRAZOLE 20 MG CAP PO SCH (08:56)
[2020-06-21] MEDS: ASPIRIN 81 MG ENTERIC TAB PO SCH (08:56)
[2020-06-21] MEDS: BACLOFEN 10 MG TAB PO SCH ×2 (08:56→21:21)
[2020-06-21] MEDS: buPROPion **XL** TABLET 150MG (WELLBUTRIN XL) PO SCH (08:56)
[2020-06-21] MEDS: METOPROLOL TART 25 MG TABLET PO SCH ×2 (08:56→21:22)
[2020-06-21] MEDS: amLODIPine 10 MG TAB PO SCH (08:56)
[2020-06-21] MEDS: CETIRIZINE (ZyrTEC) 10 MG TAB PO SCH (08:56)
[2020-06-21] MEDS: GABAPENTIN 100 MG CAP PO SCH ×3 (08:56→21:21)
[2020-06-21] MEDS: **NOTE PATIENT COMMENT** MISC XX SCH (08:57)
[2020-06-21] MEDS: FLUTICASONE PROP 0.05% NASAL SPRAY 16 GM (FLONASE) SCH (08:57)
[2020-06-21 09:11] LABS: HEMATOCRIT 55.4 % (42.0-52.0); HEMOGLOBIN 16.1 g/dl (13.5-17.5); MEAN CORPUSCULAR HEMOGLOBIN 21.6 pg (27.0-33.0); MEAN CORPUSCULAR HGB CONC 29.1 g/dl (32.0-36.5); MEAN CORPUSCULAR VOLUME 74.5 fl (80.0-96.0); PLATELET COUNT, AUTOMATED 428 10^3/uL (150-450); RED BLOOD COUNT 7.44 10^6/uL (4.30-6.10); WHITE BLOOD COUNT 9.2 10^3/uL (4.0-10.0)
[2020-06-21 09:26] LABS: CALCIUM LEVEL 8.9 MG/DL (8.5-10.1); CREATININE FOR GFR 2.32 MG/DL (0.70-1.30); GLOMERULAR FILTRATION RATE 30.8 (>56); POTASSIUM SERUM 4.8 MEQ/L (3.5-5.1)
[2020-06-21] MEDS: HumaLOG INSULIN (NovoLOG) PER UNIT SC SCH ×4 (10:35→21:21)
[2020-06-21] MEDS: HumuLIN R (REGULAR) INSULIN (NovoLIN R) **100U/ML** PER UNIT SC SCH (10:36)
[2020-06-21] MEDS ORDERED: diphenhydrAMINE 50MG/ML VIAL (J1200) As Ordered ONE (12:48)
[2020-06-21] MEDS ORDERED: fentaNYL 100 MCG/2 ML INJECTION (J3010) As Ordered ONE (12:49)
[2020-06-21] MEDS ORDERED: MIDAZOLAM INJ 2MG/2ML VIAL (J2250 PER 1MG) As Ordered ONE (12:49)
[2020-06-21] MEDS ORDERED: LIDOCAINE 1% MDV 20ML VIAL As Ordered ONE (12:49)
--- NOTE | 2020-06-21 13:30 | IPNPDOC ---
Subjective Date Seen The patient was seen on 06/21/20. Subjective Chief Complaint/HPI Pt is doing well today. He is able to get in his wheelchair and wheel out of his room. Pt and nursing staff deny any overnight events. General: Denies: ROS Unobtainable, Chills, Night Sweats, Fatigue, Malaise, Normal Appetite, Other Symptoms Constitutional: Denies: Chills, Fever, Malaise, Night Sweats, Weakness, Fatigue, Weight Loss, Lethargy, Other Gastrointestinal: Denies: Nausea, Vomiting, Abdominal Pain, Diarrhea, Constipation, Melena, Hematochezia, Other Symptoms Objective Physical Examination General Exam: Positive: Alert, Cooperative, No Acute Distress Eye Exam: Positive: EOMI ENT Exam: Positive: Atraumatic Neck Exam: Positive: Supple; Negative: JVD Chest Exam: Positive: Clear to auscultation, Normal air movement; Negative: Rales, Rhonchi, Wheezing Heart Exam: Positive: Rate Normal, Regular Rhythm Abdomen Exam: Positive: Normal bowel sounds, Soft, Tenderness (ventral where hernia was located), Hernia Extremity Exam: Positive: Edema (+2 pitting edema of the legs, however, much improved from yesterday, softer today) Neuro Exam: Positive: Cranial Nerves 3-12 NL Psych Exam: Positive: Mental status NL, Mood NL Assessment /Plan Assessment # Generalized anasarca: possibly secondary to nephrotic syndrome. Kidney biopsy scheduled for today with IR. Pt has hypoalbuminemia as a result of proteinuria. Pt's C3 is 84 and C4 is 25. The rest of the serology is still pending. His El iquis is on hold until after the biopsy. # Acute kidney injury on chronic kidney disease. Patient has underlying chronic kidney disease likely secondary to diabetic nephropathy. JANIE is likely secondary to diuresis. Continue monitoring kidney function daily. # Hypertension. Well-controlled. Continue diuresis and hold RUPAL-I at this time to reduce risk of renal failure. Plan/VTE VTE Prophylaxis Ordered?: No (Eliquis is held for biopsy) GME ATTESTATION My faculty preceptor for this patient encounter was physically present during the encounter and was fully available. All aspects of the patient interview, examination, medical decision making process, and medical care plan development were reviewed and approved by the faculty preceptor. The faculty preceptor is aware and concurs with the plan as stated in the body of this note and will attest to such by his/her cosignature. VS, I&O, 24H, Fishbone Vital Signs/I&O Vital Signs Date Time Temp Pulse Resp B/P (MAP) Pulse Ox O2 Delivery O2 Flow Rate FiO2 06/21/20 08:58 18 06/21/20 08:56 69 146/82 06/21/20 06:00 98.2 96 Room Air I&O- Last 24 Hours up to 6 AM 06/21/20 06:00 Intake Total 1405 ml Output Total 3425 ml Balance -2020 ml Laboratory Data 24H LABS Laboratory Tests 2 06/20/20 14:03: Troponin I < 0.02 06/20/20 17:13: Bedside Glucose (Misc Panel) 297H 06/20/20 20:22: Bedside Glucose (Misc Panel) 224H 06/21/20 08:03: Nucleated Red Blood Cells % (auto) 0.0, Anion Gap 10, Glomerular Filtration Rate 30.8L, Calcium Level 8.9 06/21/20 11:39: Bedside Glucose (Misc Panel) 239H CBC/BMP Laboratory Tests 06/21/20 08:03 Microbiology Microbiology 06/15/20 Respiratory Virus Panel (PCR) ([facility]) - Final, Complete Rahul Cabrera DO Jun 21, 2020 13:30
[2020-06-21] MEDS ORDERED: PROMETHAZINE INJ 25 MG/ML VIAL (J2550) As Ordered ONE (13:43)
--- NOTE | 2020-06-21 14:36 | IRMSE ---
[facility] IR Moderate Sedation Eval. Date and Time Date: Jun 21, 2020 Time: 13:49 ASA Classification ASA Classification: III-Severe systemic dis. Mallampati Score: II NPO: Yes Obstructive Sleep Apnea: Yes Interval Plan: moderate sedation ISMAEL DOAN MD Jun 21, 2020 14:36
[2020-06-21 15:05] VITALS: BP 186/99
--- NOTE | 2020-06-21 15:11 | ECGEPIP ---
[facility] Test Date: 2020-06-20 Pat Name: LOGAN CHRISTIANSON Department: Room: [place] [address] Gender: Male Director Video: SEFERINO : 1960 Requested By: ALISON Zamora Order Number: [id number] Reading MD: Osmar Infante Measurements Intervals [place] Rate: 71 P: 77 VT: 166 QRS: 57 QRSD: 101 T: 56 QT: 377 QTc: 412 Interpretive Statements Normal sinus rhythm Somewhat low voltages with poor precordial R wave progression and persistent S w waves V5 and V6; body habitus versus prominent disease. Rule out prior septal i infarction. Nonspecific ST/T wave abnormalities. Resolution of prior ventricular ectopy 06/16/20 otherwise unchanged Electronically Signed on 06-21-2020 15:11:27 EST by Osmar Infante
[2020-06-21] MEDS: oxyCODONE 5MG TAB PO PRN ×2 (15:22→21:20)
--- NOTE | 2020-06-21 15:22 | IPNPDOC ---
Subjective Date Seen The patient was seen on 06/21/20. Subjective Chief Complaint/HPI Mr. Herrera is a 59 year old male with DM2 with neuropathy, CKD stage 3, and newly diagnosed leukemia who initially present with chest pain, but found to have diffuse anasarca, JANIE, and nephrotic syndrome. This morning, he was feeling about the same. No return of chest pain and most recent troponin set negative x2. Otherwise, he went down to IR today for renal biopsy for nephrotic syndrome. Objective Physical Examination General Exam: Positive: Alert, Cooperative, No Acute Distress Eye Exam: Positive: EOMI ENT Exam: Positive: Atraumatic Neck Exam: Positive: Supple; Negative: JVD Chest Exam: Positive: Clear to auscultation, Normal air movement; Negative: Rales, Rhonchi, Wheezing Heart Exam: Positive: Rate Normal, Regular Rhythm Abdomen Exam: Positive: Normal bowel sounds, Soft, Tenderness (ventral where hernia was located), Hernia Extremity Exam: Positive: Edema (+2 pitting edema of the legs, however, much improved from yesterday, softer today) Neuro Exam: Positive: Cranial Nerves 3-12 NL Psych Exam: Positive: Mental status NL, Mood NL Assessment /Plan Assessment Mr. Herrera is a 59 year old male with DM2 with neuropathy, CKD stage 3, and newly diagnosed leukemia who is here with diffuse anasarca, JANIE, and nephrotic syndrome. Nephrology consulted and recommendations appreciated. Pending renal biopsy and lab work up for nephrotic syndrome. Apixaban held for biopsy. To be restarted tomorrow (06/22/2020) Plan/VTE VTE Prophylaxis Ordered?: Yes Plan 1. Anasarca 2/2 nephrotic syndrome -Echocardiogram 06/18/2020 demonstrated EF of 50 to 55% with probably normal diastolic function -Urine studies suggestive of nephrotic syndrome -Pending renal biopsy results -Nephrology following, recommendations appreciated 2. Atypical chest pain -Sharp chest pain that lasts for a few seconds -Repeat EKG negative for ischemia -Repeated troponin set x2 were negative -Continue aspirin and sublingual nitro as needed -May need outpatient stress test 3. Hypertension/Supine hypertension -Continue amlodipine, hydralazine, and Lopressor -Continue monitoring 4. JANIE on CKD stage 3 -Nephrology consulted, recommendations appreciated -ACEi and HCTZ held -Pending renal biopsy results 5. DM type 2 with neuropathy -Continue FSBS and sliding scale insulin -Continue gabapentin 100mg TID 6. History of RUE DVT and PE -Held apixaban for renal biopsy. Plan to restart tomorrow 06/22/2020 7. SARAH -Own nocturnal CPAP 8. Depression/anxiety -Bupropion 9. chronic back pain/DJD -Oxycontin 10. Obesity -BMI 33.7 11. DVT ppx -SCD and TEDs. To restart apixaban tomorrow Disposition: Pending biopsy results and lab work up. VS, I&O, 24H, Fishbone Vital Signs/I&O Vital Signs Date Time Temp Pulse Resp B/P (MAP) Pulse Ox O2 Delivery O2 Flow Rate FiO2 06/21/20 15:05 96.1 63 18 186/99 (128) 96 Room Air 06/21/20 14:15 2 I&O- Last 24 Hours up to 6 AM 06/21/20 06:00 Intake Total 1405 ml Output Total 3425 ml Balance -2020 ml Laboratory Data 24H LABS Laboratory Tests 2 06/20/20 17:13: Bedside Glucose (Misc Panel) 297H 06/20/20 20:22: Bedside Glucose (Misc Panel) 224H 06/21/20 08:03: Nucleated Red Blood Cells % (auto) 0.0, Anion Gap 10, Glomerular Filtration Rate 30.8L, Calcium Level 8.9 06/21/20 11:39: Bedside Glucose (Misc Panel) 239H CBC/BMP Laboratory Tests 06/21/20 08:03 Microbiology Microbiology 06/15/20 Respiratory Virus Panel (PCR) ([facility]) - Final, Complete ALISON RICE DO Jun 21, 2020 15:22
[2020-06-21 15:50] VITALS: BP 166/91
[2020-06-21 16:10] LABS: ANTI DS-DNA AB Negative (Negative); ANTINUCLEAR ANTIBODIES DIRECT Negative (Negative); COMPLEMENT TOTAL (CH50) > 60 U/mL (>41)
[2020-06-21 16:10] LABS: ANCA-ATYPICAL <1:20 titer (Neg:<1:20); CYTOPLASMIC NEUTROP AB ANCA-C <1:20 titer (Neg:<1:20); PERINUCLEAR AB ANCA-P <1:20 titer (Neg:<1:20)
[2020-06-21 16:20] VITALS: BP 134/95
[2020-06-21] MEDS: ATORVASTATIN 10 MG TAB PO SCH (21:21)
[2020-06-21] MEDS: APIXABAN 5 MG TAB (ELIQUIS) PO SCH (21:21)
[2020-06-21] MEDS: LIDOCAINE 5% (LIDODERM) PATCH TD SCH (21:23)
[2020-06-21 22:00] VITALS: BP 137/63
[2020-06-22] MEDS: oxyCODONE 15 MG CR TAB PO SCH ×3 (01:38→16:43)
[2020-06-22] MEDS: SODIUM CHLORIDE 0.9% INJ 10 ML SYR IV SCH ×2 (05:31→18:30)
[2020-06-22] MEDS: **hydrALAZINE** 50 MG TAB PO SCH ×3 (05:31→21:23)
[2020-06-22 05:54] LABS: HEMATOCRIT 50.9 % (42.0-52.0); HEMOGLOBIN 15.1 g/dl (13.5-17.5); MEAN CORPUSCULAR HGB CONC 29.7 g/dl (32.0-36.5); MEAN CORPUSCULAR VOLUME 74.1 fl (80.0-96.0); PLATELET COUNT, AUTOMATED 407 10^3/uL (150-450); RED BLOOD COUNT 6.87 10^6/uL (4.30-6.10); WHITE BLOOD COUNT 8.5 10^3/uL (4.0-10.0)
[2020-06-22 06:00] VITALS: BP 141/87
[2020-06-22 06:22] LABS: BLOOD UREA NITROGEN 35 MG/DL (7-18); CALCIUM LEVEL 8.8 MG/DL (8.5-10.1); CARBON DIOXIDE LEVEL 27 MEQ/L (21-32); CHLORIDE LEVEL 110 MEQ/L (98-107); CREATININE FOR GFR 2.26 MG/DL (0.70-1.30); GLOMERULAR FILTRATION RATE 31.8 (>56); GLUCOSE, FASTING 329 MG/DL (70-100); PHOSPHORUS LEVEL 3.8 MG/DL (2.5-4.9); POTASSIUM SERUM 4.6 MEQ/L (3.5-5.1); SODIUM LEVEL 146 MEQ/L (136-145)
[2020-06-22] MEDS: APIXABAN 5 MG TAB (ELIQUIS) PO SCH ×2 (08:35→21:19)
[2020-06-22] MEDS: ASPIRIN 81 MG ENTERIC TAB PO SCH (08:35)
[2020-06-22] MEDS: OMEPRAZOLE 20 MG CAP PO SCH (08:35)
[2020-06-22] MEDS: GABAPENTIN 100 MG CAP PO SCH ×3 (08:35→21:19)
[2020-06-22] MEDS: amLODIPine 10 MG TAB PO SCH (08:35)
[2020-06-22] MEDS: HYDROXYUREA 500 MG CAP PO SCH (08:36)
[2020-06-22] MEDS: CETIRIZINE (ZyrTEC) 10 MG TAB PO SCH (08:36)
[2020-06-22] MEDS: METOPROLOL TART 25 MG TABLET PO SCH ×2 (08:36→21:23)
[2020-06-22] MEDS: BACLOFEN 10 MG TAB PO SCH ×2 (08:36→21:19)
[2020-06-22] MEDS: buPROPion **XL** TABLET 150MG (WELLBUTRIN XL) PO SCH (08:36)
[2020-06-22] MEDS: FLUTICASONE PROP 0.05% NASAL SPRAY 16 GM (FLONASE) SCH (08:37)
[2020-06-22] MEDS: **NOTE PATIENT COMMENT** MISC XX SCH (08:43)
[2020-06-22] MEDS: HumuLIN R (REGULAR) INSULIN (NovoLIN R) **100U/ML** PER UNIT SC SCH (08:44)
[2020-06-22] MEDS: HumaLOG INSULIN (NovoLOG) PER UNIT SC SCH ×4 (08:45→21:20)
--- NOTE | 2020-06-22 11:30 | POST-OPPD ---
Postoperative Procedure Note Date Of Procedure: Jun 21, 2020 Time Of Procedure: 16:[address] Guided kidney biopsy. IR Moderate sedation. Clinical Information:Renal failure. Physician: Dr. Vega. Procedure: The patient was advised of the benefits, risks, and alternatives of the procedure and informed consent was obtained. A time out was performed with verification of the patient's name, MRN, site of procedure, and type of procedure to be performed. The patient was positioned in the prone position on the CT table. The site was prepped and draped in the usual sterile fashion. Moderate sedation was performed by the physician including the presence of an independent trained RN who assisted in monitoring the patient's level of consciousness and physiological status. Following the administration of fent anyl and Versed, the physician spent 45 minutes of continuous [id number] time with the patient. Preliminary CT demonstrates unremarkable left kidney. The skin and expected tract were anesthetized with lidocaine.A 17-gauge coaxial needle was advanced under intermittent CT guidance to the left kidney lower pole cortex. An 18-gauge Biopince device was advanced through the coaxial needle and used to obtain 3 cores through the lower pole of the kidney, with CT confirmation. The needle was removed, pressure held and hemostasis achieved. A follow-up CT through the area demonstrates no significant hematoma. A sterile dressing was applied to the site. The patient tolerated the procedure well and was returned to the PRU in stable condition. EBL:Less than 5 mL. Complications:None. Conclusion:1. CT demonstrates unremarkable left kidney. 2. Successful CT-guided renal biopsy. Patient to follow-up with referring provider for biopsy results. Thank you for this referral. ISMAEL VEGA MD Jun 22, 2020 11:30
[2020-06-22] MEDS: oxyCODONE 5MG TAB PO PRN ×2 (12:51→21:24)
--- NOTE | 2020-06-22 13:18 | IPNPDOC ---
Subjective Date Seen The patient was seen on 06/22/20. Subjective Chief Complaint/HPI Mr. Herrera is a 59 year old male with DM2 with neuropathy, CKD stage 3, and newly diagnosed leukemia who initially present with chest pain, but found to have diffuse anasarca, JANIE, and nephrotic syndrome. No change in symptoms this morning. Biopsy specimens were sent out yesterday, pending biopsy report. Otherwise restarted anticoagulation with Eliquis today Objective Physical Examination General Exam: Positive: Alert, Cooperative, No Acute Distress Eye Exam: Positive: EOMI ENT Exam: Positive: Atraumatic Neck Exam: Positive: Supple; Negative: JVD Chest Exam: Positive: Clear to auscultation, Normal air movement; Negative: Rales, Rhonchi, Wheezing Heart Exam: Positive: Rate Normal, Regular Rhythm Abdomen Exam: Positive: Normal bowel sounds, Soft, Tenderness (ventral where hernia was located), Hernia Extremity Exam: Positive: Edema (+2 pitting edema of the legs, however, much improved from yesterday, softer today) Neuro Exam: Positive: Cranial Nerves 3-12 NL Psych Exam: Positive: Mental status NL, Mood NL Assessment /Plan Assessment Mr. Herrera is a 59 year old male with DM2 with neuropathy, CKD stage 3, and newly diagnosed leukemia who is here with diffuse anasarca, JANIE, and nephrotic syndrome. Nephrology consulted and recommendations appreciated. Pending renal biopsy results Plan/VTE VTE Prophylaxis Ordered?: Yes Plan 1. Anasarca 2/2 nephrotic syndrome -Echocardiogram 06/18/2020 demonstrated EF of 50 to 55% with probably normal diastolic function -Urine studies suggestive of nephrotic syndrome -Pending renal biopsy results -Nephrology following, recommendations appreciated 2. Atypical chest pain -Sharp chest pain that lasts for a few seconds -Repeat EKG negative for ischemia -Repeated troponin set x2 were negative -Continue aspirin and sublingual nitro as needed -May need outpatient stress test 3. Hypertension/Supine hypertension -Continue amlodipine, hydralazine, and Lopressor -Continue monitoring 4. JANIE on CKD stage 3 -Nephrology consulted, recommendations appreciated -ACEi and HCTZ held -Pending renal biopsy results 5. DM type 2 with neuropathy -Continue FSBS and sliding scale insulin -Continue gabapentin 100mg TID 6. History of RUE DVT and PE -Held apixaban for renal biopsy. Plan to restart tomorrow 06/22/2020 7. SARAH -Own nocturnal CPAP 8. Depression/anxiety -Bupropion 9. chronic back pain/DJD -Oxycontin 10. Obesity -BMI 33.7 11. DVT ppx -SCD and TEDs. To restart apixaban tomorrow Disposition: Pending biopsy results and glomerular basement membrane antibodies. ANGELINA and ANCA negative. Biopsy results may not return until next week. VS, I&O, 24H, Fishbone Vital Signs/I&O Vital Signs Date Time Temp Pulse Resp B/P (MAP) Pulse Ox O2 Delivery O2 Flow Rate FiO2 06/22/20 12:51 16 06/22/20 06:00 96.9 68 141/87 (105) 94 06/22/20 01:38 Room Air 06/21/20 14:15 2 I&O- Last 24 Hours up to 6 AM 06/22/20 06:00 Intake Total 660 ml Output Total 1425 ml Balance -765 ml Laboratory Data 24H LABS Laboratory Tests 2 06/21/20 16:39: Bedside Glucose (Misc Panel) 255H 06/21/20 20:29: Bedside Glucose (Misc Panel) 264H 06/22/20 05:41: Nucleated Red Blood Cells % (auto) 0.0, Anion Gap 9, Glomerular Filtration Rate 31.8L, Calcium Level 8.8, Phosphorus Level 3.8, Magnesium Level 2.0 06/22/20 11:37: Bedside Glucose (Misc Panel) 166H CBC/BMP Laboratory Tests 06/22/20 05:41 Microbiology Microbiology 06/15/20 Respiratory Virus Panel (PCR) ([facility]) - Final, Complete ALISON RICE DO Jun 22, 2020 13:18
[2020-06-22 14:00] VITALS: BP 149/78
--- NOTE | 2020-06-22 16:26 | IPN ---
PROGRESS NOTE DATE: 06/21/2020 Mr. Herrera is seen this morning on his bedside. He is sitting in his wheelchair. He underwent a left kidney biopsy yesterday and did not have any complications. He denies any hematuria or flank pain. His generalized anasarca has improved significantly with diuresis. Patient has severe nephrotic syndrome with more than 19 grams protein in his 24-hour urine, and biopsies are still pending. PHYSICAL EXAMINATION: Temperature 96.9 degrees Fahrenheit, heart rate 68 per minute, respiratory rate 20 minute, blood pressure 141/87 mmHg, and oxygen saturation 94% on room air. Head is atraumatic. Neck supple and without jugular venous distention (JVD) or thyroid enlargement. Lungs sound clear to auscultation, and heart sounds are regular. Abdomen obese, soft, and nontender, and bowel sounds are normal. Extremities without any cyanosis or clubbing. He has a left below-knee amputation. On the back he has dressing from his left kidney biopsy, and I removed the dressing. There is no hematoma or bleeding. Neurologically he is at his baseline mentation without a focal deficit. Today's labs show WBC count 8.5, hemoglobin 15.1, hematocrit 50.9, platelets 407. Sodium 146, potassium 4.6, CO2 of 27, BUN 35, and creatinine 2.26. Glucose 329 and calcium 8.8. PROBLEMS: 1. Nephrotic syndrome. Patient had a kidney biopsy yesterday, and results are pending. He is not on any specific therapy so far. We have not even started angiotensin-converting enzyme (RUPAL) inhibitor or angiotensin-receptor catalina (ARB) in view of significant chronic kidney disease and some decline in kidney function with diuresis. 2. Hypernatremia. Patient is currently not on diuretic. This is likely to improve, and I will just watch and repeat his labs on daily basis. 3. Hypertension. Blood pressure is reasonably well controlled on current medications. 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 At this point, he should continue with current antihypertensive medications. 4. Generalized anasarca related to nephrotic syndrome and has improved significantly with diuresis. Currently diuretics are on hold.
[2020-06-22] MEDS: LIDOCAINE 5% (LIDODERM) PATCH TD SCH (21:19)
[2020-06-22] MEDS: ATORVASTATIN 10 MG TAB PO SCH (21:19)
[2020-06-22 22:00] VITALS: BP 168/78
[2020-06-23] MEDS: oxyCODONE 15 MG CR TAB PO SCH ×3 (01:52→16:41)
[2020-06-23] MEDS: SODIUM CHLORIDE 0.9% INJ 10 ML SYR IV SCH ×2 (05:25→17:43)
[2020-06-23] MEDS: **hydrALAZINE** 50 MG TAB PO SCH (05:26)
[2020-06-23 06:00] VITALS: BP 124/57
[2020-06-23 06:22] LABS: HEMATOCRIT 49.8 % (42.0-52.0); HEMOGLOBIN 14.5 g/dl (13.5-17.5); MEAN CORPUSCULAR HEMOGLOBIN 21.9 pg (27.0-33.0); MEAN CORPUSCULAR HGB CONC 29.1 g/dl (32.0-36.5); MEAN CORPUSCULAR VOLUME 75.1 fl (80.0-96.0); PLATELET COUNT, AUTOMATED 398 10^3/uL (150-450); RED BLOOD COUNT 6.63 10^6/uL (4.30-6.10); WHITE BLOOD COUNT 8.6 10^3/uL (4.0-10.0)
[2020-06-23 06:52] LABS: CALCIUM LEVEL 8.7 MG/DL (8.5-10.1); CREATININE FOR GFR 2.17 MG/DL (0.70-1.30); GLOMERULAR FILTRATION RATE 33.3 (>56); POTASSIUM SERUM 4.7 MEQ/L (3.5-5.1)
[2020-06-23] MEDS: HumaLOG INSULIN (NovoLOG) PER UNIT SC SCH ×4 (08:11→21:26)
[2020-06-23] MEDS: OMEPRAZOLE 20 MG CAP PO SCH (08:12)
[2020-06-23] MEDS: APIXABAN 5 MG TAB (ELIQUIS) PO SCH ×2 (08:12→21:26)
[2020-06-23] MEDS: BACLOFEN 10 MG TAB PO SCH ×2 (08:12→21:23)
[2020-06-23] MEDS: buPROPion **XL** TABLET 150MG (WELLBUTRIN XL) PO SCH (08:12)
[2020-06-23] MEDS: CETIRIZINE (ZyrTEC) 10 MG TAB PO SCH (08:12)
[2020-06-23] MEDS: ASPIRIN 81 MG ENTERIC TAB PO SCH (08:12)
[2020-06-23] MEDS: GABAPENTIN 100 MG CAP PO SCH ×3 (08:12→21:23)
[2020-06-23] MEDS: HumuLIN R (REGULAR) INSULIN (NovoLIN R) **100U/ML** PER UNIT SC SCH (08:12)
[2020-06-23] MEDS: HYDROXYUREA 500 MG CAP PO SCH (08:12)
[2020-06-23] MEDS: METOPROLOL TART 25 MG TABLET PO SCH ×2 (08:13→21:24)
[2020-06-23] MEDS: amLODIPine 10 MG TAB PO SCH (08:13)
[2020-06-23] MEDS: **NOTE PATIENT COMMENT** MISC XX SCH (08:14)
[2020-06-23] MEDS: FLUTICASONE PROP 0.05% NASAL SPRAY 16 GM (FLONASE) SCH (08:14)
[2020-06-23 10:25] LABS: CHOLESTEROL LEVEL 157 MG/DL (<200); CHOLESTEROL RISK RATIO 2.573 (<5); HDL CHOLESTEROL 61 MG/DL (>40); LDL CHOLESTEROL 68 MG/DL (<100); NON-HDL-C 96 MG/DL; TRIGLYCERIDES LEVEL 140 MG/DL (<150)
[2020-06-23] MEDS: TORSEMIDE 20 MG TAB PO SCH (12:39)
[2020-06-23] MEDS: lisinopriL 10 MG TAB PO SCH (12:39)
[2020-06-23] MEDS: **hydrALAZINE HCL** 25 MG TAB PO SCH ×2 (13:20→21:24)
[2020-06-23 14:00] VITALS: BP 131/92
--- NOTE | 2020-06-23 18:51 | IPNPDOC ---
Subjective Date Seen The patient was seen on 06/23/20. Subjective Chief Complaint/HPI Mr. Herrera is a 59 year old male with DM2 with neuropathy, CKD stage 3, and newly diagnosed leukemia who initially present with chest pain, but found to have diffuse anasarca, JANIE, and nephrotic syndrome. This morning, he still feels the same. No reoccurrence of chest pain. Denies dyspnea. Was contacted by nephrology. Biopsy results demonstrated diabetic nephropathy. Patient to be started on ACEi and diuretics Objective Physical Examination General Exam: Positive: Alert, Cooperative, No Acute Distress Eye Exam: Positive: EOMI ENT Exam: Positive: Atraumatic Neck Exam: Positive: Supple; Negative: JVD Chest Exam: Positive: Clear to auscultation, Normal air movement; Negative: Rales, Rhonchi, Wheezing Heart Exam: Positive: Rate Normal, Regular Rhythm Abdomen Exam: Positive: Normal bowel sounds, Soft, Tenderness (ventral where hernia was located), Hernia Extremity Exam: Positive: Edema (+2 pitting edema of the legs, however, much improved from yesterday, softer today) Neuro Exam: Positive: Cranial Nerves 3-12 NL Psych Exam: Positive: Mental status NL, Mood NL Assessment /Plan Assessment Mr. Herrera is a 59 year old male with DM2 with neuropathy, CKD stage 3, and newly diagnosed leukemia who is here with diffuse anasarca, JANIE, and nephrotic syndrome. Nephrology consulted and recommendations appreciated. Biopsy results demonstrated diabetic nephropathy. Nephrology to start ACEi and diuretics. Plan/VTE VTE Prophylaxis Ordered?: Yes Plan 1. Anasarca 2/2 nephrotic syndrome -Echocardiogram 06/18/2020 demonstrated EF of 50 to 55% with probably normal diastolic function -Urine studies suggestive of nephrotic syndrome -Nephrology following, recommendations appreciated -Biopsy demonstrates diabetic nephropathy -Patient to start ACEi and diuretics 2. Atypical chest pain -Sharp chest pain that lasts for a few seconds -Repeat EKG negative for ischemia -Repeated troponin set x2 were negative -Continue aspirin and sublingual nitro as needed -May need outpatient stress test 3. Hypertension/Supine hypertension -Continue Lopressor -Nephrology weaning amlodipine and hydralazine and starting ACEi 4. JANIE on CKD stage 3 -Nephrology consulted, recommendations appreciated -HCTZ held -Pending renal biopsy results 5. DM type 2 with neuropathy -Continue FSBS and sliding scale insulin -Continue gabapentin 100mg TID 6. History of RUE DVT and PE -Held apixaban for renal biopsy. Plan to restart tomorrow 06/22/2020 7. SARAH -Own nocturnal CPAP 8. Depression/anxiety -Bupropion 9. Chronic back pain/DJD -Oxycontin 10. Obesity -BMI 33.7 11. DVT ppx -SCD and TEDs. To restart apixaban tomorrow Disposition: Pending glomerular basement membrane antibodies. ANGELINA and ANCA negative. Biopsy results demonstrate diabetic nephropathy. Patient will need to be on ACEi and diuresed more. VS, I&O, 24H, Fishbone Vital Signs/I&O Vital Signs Date Time Temp Pulse Resp B/P (MAP) Pulse Ox O2 Delivery O2 Flow Rate FiO2 06/23/20 16:41 20 06/23/20 14:00 97.6 73 131/92 (105) 93 Room Air 06/21/20 14:15 2 I&O- Last 24 Hours up to 6 AM 06/23/20 06:00 Intake Total 1500 ml Output Total 2250 ml Balance -750 ml Laboratory Data 24H LABS Laboratory Tests 2 06/22/20 20:31: Bedside Glucose (Misc Panel) 273H 06/23/20 05:51: Nucleated Red Blood Cells % (auto) 0.0, Anion Gap 4L, Glomerular Filtration Rate 33.3L, Calcium Level 8.7 06/23/20 11:38: Bedside Glucose (Misc Panel) 233H 06/23/20 16:40: Bedside Glucose (Misc Panel) 272H CBC/BMP Laboratory Tests 06/23/20 05:51 Microbiology Microbiology 06/15/20 Respiratory Virus Panel (PCR) ([facility] [place]) - Final, Complete ALISON RICE DO Jun 23, 2020 18:51
[2020-06-23] MEDS: ATORVASTATIN 20 MG TAB PO SCH (21:23)
[2020-06-23] MEDS: oxyCODONE 5MG TAB PO PRN (21:25)
[2020-06-23] MEDS: LIDOCAINE 5% (LIDODERM) PATCH TD SCH (21:26)
[2020-06-23 22:00] VITALS: BP 145/85
[2020-06-24] MEDS: oxyCODONE 15 MG CR TAB PO SCH ×3 (01:10→16:44)
[2020-06-24 06:00] VITALS: BP 150/79
[2020-06-24] MEDS: SODIUM CHLORIDE 0.9% INJ 10 ML SYR IV SCH ×2 (06:04→16:45)
[2020-06-24] MEDS: **hydrALAZINE HCL** 25 MG TAB PO SCH ×3 (06:04→21:22)
[2020-06-24 07:37] LABS: HEMATOCRIT 50.8 % (42.0-52.0); HEMOGLOBIN 14.5 g/dl (13.5-17.5); MEAN CORPUSCULAR HEMOGLOBIN 21.7 pg (27.0-33.0); MEAN CORPUSCULAR HGB CONC 28.5 g/dl (32.0-36.5); MEAN CORPUSCULAR VOLUME 75.9 fl (80.0-96.0); PLATELET COUNT, AUTOMATED 393 10^3/uL (150-450); RED BLOOD COUNT 6.69 10^6/uL (4.30-6.10); WHITE BLOOD COUNT 7.7 10^3/uL (4.0-10.0)
[2020-06-24 08:06] LABS: CREATININE FOR GFR 2.04 MG/DL (0.70-1.30); GLOMERULAR FILTRATION RATE 35.8 (>56); POTASSIUM SERUM 4.6 MEQ/L (3.5-5.1)
[2020-06-24] MEDS ORDERED: amLODIPine 5 MG TAB PO SCH (09:00)
[2020-06-24] MEDS: HumuLIN R (REGULAR) INSULIN (NovoLIN R) **100U/ML** PER UNIT SC SCH (09:11)
[2020-06-24] MEDS: HumaLOG INSULIN (NovoLOG) PER UNIT SC SCH ×4 (09:11→21:21)
[2020-06-24] MEDS: BACLOFEN 10 MG TAB PO SCH ×2 (09:12→21:22)
[2020-06-24] MEDS: CETIRIZINE (ZyrTEC) 10 MG TAB PO SCH (09:12)
[2020-06-24] MEDS: TORSEMIDE 20 MG TAB PO SCH (09:12)
[2020-06-24] MEDS: ASPIRIN 81 MG ENTERIC TAB PO SCH (09:12)
[2020-06-24] MEDS: FLUTICASONE PROP 0.05% NASAL SPRAY 16 GM (FLONASE) SCH (09:12)
[2020-06-24] MEDS: APIXABAN 5 MG TAB (ELIQUIS) PO SCH ×2 (09:13→21:23)
[2020-06-24] MEDS: METOPROLOL TART 25 MG TABLET PO SCH ×2 (09:13→21:22)
[2020-06-24] MEDS: OMEPRAZOLE 20 MG CAP PO SCH (09:13)
[2020-06-24] MEDS: buPROPion **XL** TABLET 150MG (WELLBUTRIN XL) PO SCH (09:13)
[2020-06-24] MEDS: lisinopriL 10 MG TAB PO SCH (09:14)
[2020-06-24] MEDS: HYDROXYUREA 500 MG CAP PO SCH (09:14)
[2020-06-24] MEDS: **NOTE PATIENT COMMENT** MISC XX SCH (09:15)
[2020-06-24] MEDS: GABAPENTIN 100 MG CAP PO SCH ×3 (09:15→21:21)
[2020-06-24] MEDS: oxyCODONE 5MG TAB PO PRN (12:18)
--- NOTE | 2020-06-24 13:48 | IPN ---
PROGRESS NOTE DATE: 06/24/2020 SUBJECTIVE: Patient was seen and examined at the bedside today morning. He was informed about the preliminary results of the renal biopsy, which showed diabetic nephropathy. He was already started on low dose of lisinopril and loop diuretic yesterday because of his hypertension, nephrotic range proteinuria and lower extremity edema. He is tolerating the current dose well. He made more than 4 liters of urine yesterday with the diuretic. He reports that the lower extremity edema is improving now. Blood pressures are slightly labile and his antihypertensive regimen is being adjusted. OBJECTIVE: VITAL SIGNS: Temperature 97.3 degrees Fahrenheit, blood pressure 150/79, pulse 73, respiratory rate 19, saturating 94% on room air. INTAKE AND OUTPUT: Urine output recorded as 4.7 liters yesterday and 1.4 liters so far today since overnight. Weight in the bed scale is 132.9 kg, which is 2 kg below his weight yesterday. PHYSICAL EXAMINATION: GENERAL: Patient is awake, alert, oriented times three, obese, sitting in the wheelchair. HEAD AND NECK EXAM: Extraocular muscles intact. Pupils equally round and reactive to light. Mucous membranes are moist. Neck is supple. There is no significant jugular venous distention (JVD). CARDIOVASCULAR: S1, S2. Regular rate. There is 3+ edema of the bilateral lower extremities. RESPIRATORY: Mildly decreased breath sounds at the bases. Otherwise, no active rales or rhonchi. ABDOMEN: Soft. Positive bowel sounds. Periumbilical region hernia, which is tender. Abdominal wall edema was noted. Presacral edema was also noted MUSCULOSKELETAL: 3+ edema of the right lower extremity all the way up to his gluteal region and he has a left below knee amputation. CENTRAL NERVOUS SYSTEM (DIRECTOR OF KIDS): No focal deficits. Power is 5/5 in all extremities. LABORATORY REVIEW: CBC showed WBC 7.7, hemoglobin 14.5, platelets 393. BMP showed sodium 144, potassium 4.6, chloride 110, bicarbonate 28, BUN 36, creatinine 2, glucose 243, calcium 9. CURRENT INPATIENT MEDICATIONS: Patient's medications are all reviewed by myself. He was started on torsemide 40 mg by mouth daily. He was started on lisinopril 10 mg daily, which I have increased to 20 mg daily now. His amlodipine has been stopped now and his hydralazine dose was decreased to 25 mg by mouth every 8 hours yesterday. No other significant change in the medications today as compared with yesterday. ASSESSMENT AND PLAN: 1. Nephrotic range proteinuria secondary to diabetic nephropathy. As mentioned above, he has been started on RUPAL inhibitor and loop diuretic. Lisinopril dose has been increased. He will be given maximum tolerated dose of RUPAL inhibitor. No need of steroids at this time. 2. Hypertension with hypertensive heart disease. Patient has left ventricular (LV) ejection fraction of around 50-55% with hypertensive heart disease on the latest echocardiogram. Amlodipine is being weaned off because of edema. Continue hydralazine at this time and hydralazine dose was also decreased to 25 mg every 8 hours. Continue lisinopril, which has been increased to 20 mg daily and continue metoprolol at this time. 3. Generalized anasarca. Patient is responding very well to current dose of torsemide. Continue fluid restriction at 1.8 liters daily. Continue torsemide 40 mg daily. 4. Hyperlipidemia. Continue atorvastatin 20 mg by mouth daily. 5. Diabetes mellitus type 2, insulin dependent. Continue current dose of insulin regimen. Continue RUPAL inhibitors for proteinuria and renal protection. Avoid use of metformin. 6. Chronic kidney disease stage III. Patient's creatinine has been fluctuating between 1.7 to 2. Okay to continue RUPAL inhibitors and diuretics at this time. Renal function is stable, close to baseline. He has biopsy proven diabetic nephropathy. He would need to establish care with the nephrology office. He was advised to follow up with our office after his discharge from the hospital. Disposition: Patient's antihypertensives and diuretics are being optimized. Hopefully, we should be able to discharge the patient over the next 24-48 hours.
[2020-06-24 14:00] VITALS: BP 146/70
--- NOTE | 2020-06-24 15:36 | IPNPDOC ---
Subjective Date Seen The patient was seen on 06/24/20. Subjective Chief Complaint/HPI Mr. Herrera is a 59 year old male with DM2 with neuropathy, CKD stage 3, and newly diagnosed leukemia who initially present with chest pain, but found to have diffuse anasarca, JANIE, and nephrotic syndrome. He was seen in the morning. There has been no reoccurance of chest pain. Denies dyspnea. Still has anasarca Objective Physical Examination General Exam: Positive: Alert, Cooperative, No Acute Distress Eye Exam: Positive: EOMI ENT Exam: Positive: Atraumatic Neck Exam: Positive: Supple; Negative: JVD Chest Exam: Positive: Clear to auscultation, Normal air movement; Negative: Rales, Rhonchi, Wheezing Heart Exam: Positive: Rate Normal, Regular Rhythm Abdomen Exam: Positive: Normal bowel sounds, Soft, Tenderness (ventral where hernia was located), Hernia Extremity Exam: Positive: Edema (+2 pitting edema of the legs, however, much improved from yesterday, softer today) Neuro Exam: Positive: Cranial Nerves 3-12 NL Psych Exam: Positive: Mental status NL, Mood NL Assessment /Plan Assessment Mr. Herrera is a 59 year old male with DM2 with neuropathy, CKD stage 3, and newly diagnosed leukemia who is here with diffuse anasarca, JANIE, and nephrotic syndrome. Nephrology consulted and recommendations appreciated. Preliminary biopsy results demonstrated diabetic nephropathy. Nephrology to start ACEi and diuretics. Plan/VTE VTE Prophylaxis Ordered?: Yes Plan 1. Anasarca 2/2 nephrotic syndrome -Echocardiogram 06/18/2020 demonstrated EF of 50 to 55% with probably normal diastolic function -Urine studies suggestive of nephrotic syndrome -Nephrology following, recommendations appreciated -Biopsy demonstrates diabetic nephropathy -Patient on ACEi and diuretics 2. Atypical chest pain -Sharp chest pain that lasts for a few seconds -Repeat EKG negative for ischemia -Repeated troponin set x2 were negative -Continue aspirin and sublingual nitro as needed -May need outpatient stress test 3. Hypertension/Supine hypertension -Continue Lopressor -Nephrology weaning amlodipine and hydralazine and starting ACEi 4. JANIE on CKD stage 3 -Nephrology consulted, recommendations appreciated -HCTZ held -Pending renal biopsy results 5. DM type 2 with neuropathy -Continue FSBS and sliding scale insulin -Continue gabapentin 100mg TID 6. History of RUE DVT and PE -Continue apixaban 7. SARAH -Own nocturnal CPAP 8. Depression/anxiety -Bupropion 9. Chronic back pain/DJD -Oxycontin 10. Obesity -BMI 33.7 11. DVT ppx -SCD and TEDs. To restart apixaban tomorrow Disposition: Pending glomerular basement membrane antibodies. ANGELINA and ANCA negative. Biopsy results demonstrate diabetic nephropathy. Patient will need to be diuresed more before home VS, I&O, 24H, Fishbone Vital Signs/I&O Vital Signs Date Time Temp Pulse Resp B/P (MAP) Pulse Ox O2 Delivery O2 Flow Rate FiO2 06/24/20 14:00 97.6 77 18 146/70 (95) 95 Room Air 06/21/20 14:15 2 I&O- Last 24 Hours up to 6 AM 06/24/20 06:00 Intake Total 1580 ml Output Total 4400 ml Balance -2820 ml Laboratory Data 24H LABS Laboratory Tests 2 06/23/20 16:40: Bedside Glucose (Misc Panel) 272H 06/23/20 20:42: Bedside Glucose (Misc Panel) 261H 06/24/20 06:43: Nucleated Red Blood Cells % (auto) 0.0, Anion Gap 6L, Glomerular Filtration Rate 35.8L, Calcium Level 9.0 06/24/20 11:32: Bedside Glucose (Misc Panel) 329H CBC/BMP Laboratory Tests 06/24/20 06:43 Microbiology Microbiology 06/15/20 Respiratory Virus Panel (PCR) ([facility]) - Final, Complete ALISON RICE DO Jun 24, 2020 15:36
[2020-06-24] MEDS: ATORVASTATIN 20 MG TAB PO SCH (21:22)
[2020-06-24] MEDS: LIDOCAINE 5% (LIDODERM) PATCH TD SCH (21:23)
[2020-06-24 22:00] VITALS: BP 118/71
[2020-06-25] MEDS: oxyCODONE 15 MG CR TAB PO SCH ×3 (00:19→18:11)
[2020-06-25] MEDS: **hydrALAZINE HCL** 25 MG TAB PO SCH ×3 (05:28→22:26)
[2020-06-25] MEDS: SODIUM CHLORIDE 0.9% INJ 10 ML SYR IV SCH ×2 (05:28→18:14)
[2020-06-25 06:00] VITALS: BP 155/79
[2020-06-25 06:21] LABS: HEMATOCRIT 50.9 % (42.0-52.0); HEMOGLOBIN 14.9 g/dl (13.5-17.5); MEAN CORPUSCULAR HGB CONC 29.3 g/dl (32.0-36.5); MEAN CORPUSCULAR VOLUME 75.2 fl (80.0-96.0); PLATELET COUNT, AUTOMATED 359 10^3/uL (150-450); RED BLOOD COUNT 6.77 10^6/uL (4.30-6.10); WHITE BLOOD COUNT 7.5 10^3/uL (4.0-10.0)
[2020-06-25 06:55] LABS: CALCIUM LEVEL 8.8 MG/DL (8.5-10.1); CREATININE FOR GFR 2.17 MG/DL (0.70-1.30); GLOMERULAR FILTRATION RATE 33.3 (>56); POTASSIUM SERUM 4.5 MEQ/L (3.5-5.1)
[2020-06-25] MEDS: CETIRIZINE (ZyrTEC) 10 MG TAB PO SCH (09:00)
[2020-06-25] MEDS: ASPIRIN 81 MG ENTERIC TAB PO SCH (09:02)
[2020-06-25] MEDS: TORSEMIDE 20 MG TAB PO SCH (09:02)
[2020-06-25] MEDS: OMEPRAZOLE 20 MG CAP PO SCH (09:03)
[2020-06-25] MEDS: GABAPENTIN 100 MG CAP PO SCH ×3 (09:03→22:23)
[2020-06-25] MEDS: BACLOFEN 10 MG TAB PO SCH ×2 (09:03→22:26)
[2020-06-25] MEDS: APIXABAN 5 MG TAB (ELIQUIS) PO SCH ×2 (09:03→22:26)
[2020-06-25] MEDS: buPROPion **XL** TABLET 150MG (WELLBUTRIN XL) PO SCH (09:03)
[2020-06-25] MEDS: HYDROXYUREA 500 MG CAP PO SCH (09:03)
[2020-06-25] MEDS: lisinopriL 20 MG TAB PO SCH (09:03)
[2020-06-25] MEDS: FLUTICASONE PROP 0.05% NASAL SPRAY 16 GM (FLONASE) SCH (09:04)
[2020-06-25] MEDS: METOPROLOL TART 25 MG TABLET PO SCH ×2 (09:04→22:25)
[2020-06-25] MEDS: **NOTE PATIENT COMMENT** MISC XX SCH (09:05)
[2020-06-25] MEDS: HumaLOG INSULIN (NovoLOG) PER UNIT SC SCH ×4 (09:06→21:00)
[2020-06-25] MEDS: HumuLIN R (REGULAR) INSULIN (NovoLIN R) **100U/ML** PER UNIT SC SCH (09:06)
--- NOTE | 2020-06-25 11:52 | IPN ---
PROGRESS NOTE DATE: 06/25/2020 SUBJECTIVE: The patient is seen and examined at the bedside today morning. He is afebrile, hemodynamically stable. He reports his edema is getting better. His renal function is stable with a creatinine of 2.1 today. He continues to be on diuretics and RUPAL inhibitors at this time. OBJECTIVE: VITAL SIGNS: Temperature is 97 degrees Fahrenheit, blood pressure is 155/79, pulse 94, respiratory rate 18, saturating 95% on room air. INTAKE AND OUTPUT: Urine output is recorded as 3.2 liters yesterday, 1.5 liters so far today since overnight. Weight on the bed scale was 132.9 kg yesterday. PHYSICAL EXAMINATION: GENERAL: The patient is awake, alert and oriented x3, morbidly obese, sitting up in the wheelchair. HEAD AND NECK: Extraocular muscles intact. Pupils equally round and reactive to light. Mucous membranes are moist. Neck is supple. He has mildly elevated JVD. CARDIOVASCULAR: S1 and S2, regular rate. He has about 2+ edema of the right lower extremity and 2+ edema of the left extremity with a BKA. RESPIRATORY: Chest is clear to auscultation bilaterally. Bilateral equal air entry. No rales or rhonchi. ABDOMEN: Soft, positive bowel sounds. Abdominal wall edema was noted. Presacral edema was also noted. MUSCULOSKELETAL: He has a left below knee amputation. Edema of the bilateral lower extremities as mentioned above. SIGNALS INTELLIGENCE SUPERINTENDENT: No focal deficit. Power is 5/5 in all extremities. LABORATORY DATA: CBC showed a WBC of 7.5, hemoglobin 14.9, platelets are 359,000. BMP showed a sodium of 145, potassium 4.5, chloride 110, bicarbonate 27, BUN 33, creatinine is 2.1, it was 2 yesterday. CURRENT INPATIENT MEDICATIONS: The patient's medications were all reviewed by myself. His Lisinopril dose was increased to 20 mg p.o. daily, amlodipine has been stopped. He continues to be hydralazine at this time and his torsemide dose remains 40 mg daily. No other change in medications today as compared with yesterday. ASSESSMENT AND PLAN: 1. Nephrotic range proteinuria. Patient has biopsy proven diabetic nephropathy. RUPAL inhibitor dose is being increased as mentioned above. Continue the statins at this time, amlodipine has been stopped. He needs optimization of his diabetic regimen. 2. Hypertension with hypertensive heart disease. Continue current dose of hydralazine. Lisinopril has been increased as mentioned above, amlodipine has been stopped. Continue current dose of metoprolol. 3. Generalized anasarca, it is secondary to nephrotic syndrome. Continue torsemide 40 mg p.o. daily, his weight is improving. 4. Diabetes mellitus Type 2, insulin dependent. RUPAL inhibitor dose is being increased. Avoid use of Metformin, adjustment of insulin is as per medical team. 5. Chronic kidney disease Stage III, it is secondary to diabetic nephropathy. Patient is tolerating the current dose of diuretics and RUPAL inhibitors. Creatinine has plateaued around 2. 6. Disposition: Patient is being optimized for his diuretic and antihypertensive regimen, hopefully we will be able to discharge him home over the next 24 hours.
[2020-06-25] MEDS: oxyCODONE 5MG TAB PO PRN (13:04)
[2020-06-25 13:42] LABS: HEPATITIS B SURFACE ANTIBODY NEGATIVE (POSITIVE)
[2020-06-25 13:51] LABS: HEPATITIS B SURFACE ANTIGEN NEGATIVE (NEGATIVE)
[2020-06-25 14:00] VITALS: BP 154/83
[2020-06-25 14:20] LABS: HEPATITIS C VIRUS ABY INDEX < 0.0 INDEX (<0.8)
[2020-06-25 14:21] LABS: HEPATITIS B CORE ANTIBODY IGM NEGATIVE (NEGATIVE)
[2020-06-25] MEDS: SODIUM CHLORIDE 0.9% INJ 10 ML SYR IV PRN (18:14)
--- NOTE | 2020-06-25 21:32 | IPNPDOC ---
Subjective Date Seen The patient was seen on 06/25/20. Subjective Chief Complaint/HPI Mr. Herrera is a 59 year old male with DM2 with neuropathy, CKD stage 3, and newly diagnosed leukemia who initially present with chest pain, but found to have diffuse anasarca, JANIE, and nephrotic syndrome. This morning, he denies any chest pain or dyspnea. Swelling has improved. Objective Physical Examination General Exam: Positive: Alert, Cooperative, No Acute Distress Eye Exam: Positive: EOMI ENT Exam: Positive: Atraumatic Neck Exam: Positive: Supple; Negative: JVD Chest Exam: Positive: Clear to auscultation, Normal air movement; Negative: Rales, Rhonchi, Wheezing Heart Exam: Positive: Rate Normal, Regular Rhythm Abdomen Exam: Positive: Normal bowel sounds, Soft, Tenderness (ventral where hernia was located), Hernia Extremity Exam: Positive: Edema (+2 pitting edema of the legs, however, much improved from yesterday, softer today) Neuro Exam: Positive: Cranial Nerves 3-12 NL Psych Exam: Positive: Mental status NL, Mood NL Assessment /Plan Assessment Mr. Herrera is a 59 year old male with DM2 with neuropathy, CKD stage 3, and newly diagnosed leukemia who is here with diffuse anasarca, JANIE, and nephrotic syndrome. Nephrology consulted and recommendations appreciated. Preliminary biopsy results demonstrated diabetic nephropathy. Nephrology to start ACEi and diuretics. Plan/VTE VTE Prophylaxis Ordered?: Yes Plan 1. Anasarca 2/2 nephrotic syndrome -Echocardiogram 06/18/2020 demonstrated EF of 50 to 55% with probably normal diastolic function -Urine studies suggestive of nephrotic syndrome -Nephrology following, recommendations appreciated -Biopsy demonstrates diabetic nephropathy -Patient on ACEi and diuretics 2. Atypical chest pain -Sharp chest pain that lasts for a few seconds -Repeat EKG negative for ischemia -Repeated troponin set x2 were negative -Continue aspirin and sublingual nitro as needed -May need outpatient stress test 3. Hypertension/Supine hypertension -Continue Lopressor -Nephrology weaning amlodipine and hydralazine and starting ACEi 4. JANIE on CKD stage 3 -Nephrology consulted, recommendations appreciated -HCTZ held -Pending renal biopsy results 5. DM type 2 with neuropathy -Continue FSBS and sliding scale insulin -Continue gabapentin 100mg TID 6. History of RUE DVT and PE -Continue apixaban 7. SARAH -Own nocturnal CPAP 8. Depression/anxiety -Bupropion 9. Chronic back pain/DJD -Oxycontin 10. Obesity -BMI 33.7 11. DVT ppx -apixaban Disposition: Possible discharge home tomorrow VS, I&O, 24H, Fishbone Vital Signs/I&O Vital Signs Date Time Temp Pulse Resp B/P (MAP) Pulse Ox O2 Delivery O2 Flow Rate FiO2 06/25/20 18:11 18 06/25/20 14:00 98.5 81 154/83 (106) 96 Room Air 06/21/20 14:15 2 I&O- Last 24 Hours up to 6 AM 06/25/20 06:00 Intake Total 1660 ml Output Total 4150 ml Balance -2490 ml Laboratory Data 24H LABS Laboratory Tests 2 06/25/20 05:52: Nucleated Red Blood Cells % (auto) 0.0, Anion Gap 8, Glomerular Filtration Rate 33.3L, Calcium Level 8.8 06/25/20 11:21: Bedside Glucose (Misc Panel) 233H 06/25/20 16:43: Bedside Glucose (Misc Panel) 306H CBC/BMP Laboratory Tests 06/25/20 05:52 Microbiology Microbiology 06/15/20 Respiratory Virus Panel (PCR) (ANTOINE) - Final, Complete ALISON RICE DO Jun 25, 2020 21:32
[2020-06-25 22:00] VITALS: BP 149/85
[2020-06-25] MEDS: ATORVASTATIN 20 MG TAB PO SCH (22:23)
[2020-06-25] MEDS: LEVEMIR (INSULIN DETEMIR) 1 UNITS/0.01ML SC SCH (22:27)
[2020-06-25] MEDS: LIDOCAINE 5% (LIDODERM) PATCH TD SCH (22:27)
[2020-06-26] MEDS: oxyCODONE 15 MG CR TAB PO SCH ×3 (00:24→17:12)
[2020-06-26] MEDS: oxyCODONE 5MG TAB PO PRN ×2 (05:35→21:32)
[2020-06-26] MEDS: SODIUM CHLORIDE 0.9% INJ 10 ML SYR IV SCH ×2 (05:36→17:12)
[2020-06-26] MEDS: **hydrALAZINE HCL** 25 MG TAB PO SCH ×3 (05:37→21:29)
[2020-06-26 06:00] VITALS: BP 168/94
[2020-06-26 06:43] LABS: HEMATOCRIT 51.4 % (42.0-52.0); MEAN CORPUSCULAR HGB CONC 29.2 g/dl (32.0-36.5); MEAN CORPUSCULAR VOLUME 75.5 fl (80.0-96.0); PLATELET COUNT, AUTOMATED 358 10^3/uL (150-450); RED BLOOD COUNT 6.81 10^6/uL (4.30-6.10); WHITE BLOOD COUNT 7.7 10^3/uL (4.0-10.0)
[2020-06-26 07:09] LABS: CALCIUM LEVEL 8.7 MG/DL (8.5-10.1); CREATININE FOR GFR 2.12 MG/DL (0.70-1.30); GLOMERULAR FILTRATION RATE 34.2 (>56); POTASSIUM SERUM 4.5 MEQ/L (3.5-5.1)
[2020-06-26] MEDS ORDERED: METO1TAB87 PO (07:59)
[2020-06-26] MEDS ORDERED: LISI20TA33 PO (07:59)
[2020-06-26] MEDS ORDERED: FREEMIS42 TOP (07:59)
[2020-06-26] MEDS ORDERED: LANC1COM MC (07:59)
[2020-06-26] MEDS ORDERED: GNPPAD5 XX (07:59)
[2020-06-26] MEDS ORDERED: INSUDET SC (07:59)
[2020-06-26] MEDS ORDERED: TORS20TA2 PO (07:59)
[2020-06-26] MEDS ORDERED: HYDR25TA PO (07:59)
[2020-06-26] MEDS ORDERED: BD P31MI2 SC (07:59)
[2020-06-26] MEDS: HYDROXYUREA 500 MG CAP PO SCH (08:28)
[2020-06-26] MEDS: TORSEMIDE 20 MG TAB PO SCH (08:28)
[2020-06-26] MEDS: buPROPion **XL** TABLET 150MG (WELLBUTRIN XL) PO SCH (08:28)
[2020-06-26] MEDS: GABAPENTIN 100 MG CAP PO SCH ×3 (08:28→21:28)
[2020-06-26] MEDS: APIXABAN 5 MG TAB (ELIQUIS) PO SCH ×2 (08:28→21:28)
[2020-06-26] MEDS: CETIRIZINE (ZyrTEC) 10 MG TAB PO SCH (08:28)
[2020-06-26] MEDS: ASPIRIN 81 MG ENTERIC TAB PO SCH (08:28)
[2020-06-26] MEDS: HumuLIN R (REGULAR) INSULIN (NovoLIN R) **100U/ML** PER UNIT SC SCH (08:29)
[2020-06-26] MEDS: BACLOFEN 10 MG TAB PO SCH ×2 (08:29→21:28)
[2020-06-26] MEDS: OMEPRAZOLE 20 MG CAP PO SCH (08:29)
[2020-06-26] MEDS: HumaLOG INSULIN (NovoLOG) PER UNIT SC SCH ×4 (08:29→21:30)
[2020-06-26] MEDS: lisinopriL 20 MG TAB PO SCH (08:30)
[2020-06-26] MEDS: METOPROLOL TART 25 MG TABLET PO SCH ×2 (08:30→21:29)
[2020-06-26] MEDS: FLUTICASONE PROP 0.05% NASAL SPRAY 16 GM (FLONASE) SCH (08:31)
[2020-06-26] MEDS: **NOTE PATIENT COMMENT** MISC XX SCH (08:32)
[2020-06-26 09:49] LABS: ALBUMIN 1.9 GM/DL (3.2-5.2)
--- NOTE | 2020-06-26 12:08 | IPNPDOC ---
Date Seen The patient was seen on 06/26/20. Progress Note SUBJECTIVE: Denies any shortness of breath, PND or orthopnea. Patient complains of not being able to put his orthotic on his left stump due to increased swelling in the lower extremities which his office technology instructor says is improving. He complains of pain on the right leg, 5 out of 10. OBJECTIVE PHYSICAL EXAMINATION: VITAL SIGNS: Please see below. GENERAL: No distress HEENT: No JVD or thyromegaly CARDIOVASCULAR: S1, S2, sinus rhythm RESPIRATORY: Clear to auscultation, wheezing or rales ABDOMINAL: Obese, soft, nontender, nondistended, positive bowel sounds EXTREMITIES: Left BKA, 2+ edema LABORATORY DATA, IMAGING STUDIES, MICROBIOLOGY: Please see below. ASSESSMENT AND PLAN: 59-year-old male with newly diagnosed leukemia, chronic hypertension, diabetic nephropathy, right upper extremity DVT, PE and chronic anticoagulation, COPD, stage III, SARAH, depression, type 2 diabetes, status post left BKA due to chronic foot ulcer with chronic osteomyelitis, gout, reflux, chronic back pain, degenerative joint disease, ventral hernia repair with mesh admitted on with complaints of generalized abdominal pain, found to have anasarca with acute on chronic renal failure stage III, status post CT-guided biopsy of the kidneys, 06/13/2020. Pathology shows nephrotic syndrome most likely secondary to his chronic diabetes. Nephrotic range proteinuria, COPD, stage III Type 2 diabetes diabetic nephropathy. Generalized anasarca due to nephrotic syndrome Hypertensive heart disease History of diastolic congestive heart failure, ejection fraction of 50-55% with preserved systolic function Atypical chest pain, resolved History of right approximately DVT and pulmonary embolism on chronic anticoagulation SARAH on CPAP Depression, anxiety , Obesity History of recurrent left lower extremity nonhealing osteomyelitis, status post [id number] amputation Plan: Patient is medically stable for hospital discharge. According to his office technology instructor. He has not been cleared by physical therapy request one to 2 more sessions Continue with all present management for now VS, I&O, 24H, Fishbone Vital Signs/I&O Vital Signs Date Time Temp Pulse Resp B/P (MAP) Pulse Ox O2 Delivery O2 Flow Rate FiO2 06/26/20 08:31 20 06/26/20 08:30 85 164/94 06/26/20 06:00 98.1 93 Room Air 06/21/20 14:15 2 I&O- Last 24 Hours up to 6 AM 06/26/20 06:00 Intake Total 1000 ml Output Total 2675 ml Balance -1675 ml Laboratory Data 24H LABS Laboratory Tests 2 06/25/20 16:43: Bedside Glucose (Misc Panel) 306H 06/25/20 20:14: Bedside Glucose (Misc Panel) 217H 06/26/20 06:24: Nucleated Red Blood Cells % (auto) 0.0, Anion Gap 5L, Glomerular Filtration Rate 34.2L, Calcium Level 8.7, Albumin 1.9L 06/26/20 11:35: Bedside Glucose (Misc Panel) 198H CBC/BMP Laboratory Tests 06/26/20 06:24 DIPIKA ESPINOSA MD Jun 26, 2020 12:08
[2020-06-26 14:00] VITALS: BP_SYST 124; BP_SYST 160; BP_DIAS 81; BP_DIAS 90
--- NOTE | 2020-06-26 18:36 | IPNPDOC ---
Subjective Date Seen The patient was seen on 06/26/20. Subjective Chief Complaint/HPI Pt states that he is doing well. Pt and nursing staff deny any overnight events. General: Denies: ROS Unobtainable, Chills, Night Sweats, Fatigue, Malaise, Normal Appetite, Other Symptoms Constitutional: Denies: Chills, Fever, Malaise, Night Sweats, Weakness, Fatigue, Weight Loss, Lethargy, Other Pulmonary: Denies: Dyspnea, Cough, Pleuritic Chest Pain, Other Symptoms Objective Physical Examination General Exam: Positive: Alert, Cooperative, No Acute Distress Eye Exam: Positive: EOMI ENT Exam: Positive: Atraumatic Neck Exam: Positive: Supple; Negative: JVD Chest Exam: Positive: Clear to auscultation, Normal air movement; Negative: Rales, Rhonchi, Wheezing Heart Exam: Positive: Rate Normal, Regular Rhythm Abdomen Exam: Positive: Normal bowel sounds, Soft, Tenderness (ventral where hernia was located), Hernia Extremity Exam: Positive: Edema (+1 pitting edema of the legs, however, much improved from yesterday, softer today) Neuro Exam: Positive: Cranial Nerves 3-12 NL Psych Exam: Positive: Mental status NL, Mood NL Assessment /Plan Assessment # Nephrotic range proteinuria: Patient had generalized anasarca that is improving. Continue RUPAL-I, statins, and torsemide. Renal biopsy showed diabetic nephropathy. Optimize diabetic regimen. # Hypertension: Continue metoprolol, hydralazine, and lisinopril. # T2DM, insulin-dependent: Avoid use of Metformin, adjustment of insulin is as per medical team. # CKDIII likely secondary to diabetic nephropathy: Pt tolerating diuretics and RUPAL inhibitors. Creatinine remains at ~2. Disposition: Pt is optimized from nephrology standpoint. Pt states that he would like to be transferred to rehabilitation and not discharged at this time. Plan/VTE VTE Prophylaxis Ordered?: Yes (Pt is taking Eliquis.) GME ATTESTATION My faculty preceptor for this patient encounter was physically present during the encounter and was fully available. All aspects of the patient interview, examination, medical decision making process, and medical care plan development were reviewed and approved by the faculty preceptor. The faculty preceptor is aware and concurs with the plan as stated in the body of this note and will attest to such by his/her cosignature. VS, I&O, 24H, Fishbone Vital Signs/I&O Vital Signs Date Time Temp Pulse Resp B/P (MAP) Pulse Ox O2 Delivery O2 Flow Rate FiO2 06/26/20 17:12 20 06/26/20 14:00 98.8 80 160/90 (113) 95 Room Air 06/21/20 14:15 2 I&O- Last 24 Hours up to 6 AM 06/26/20 06:00 Intake Total 1000 ml Output Total 2675 ml Balance -1675 ml Laboratory Data 24H LABS Laboratory Tests 2 06/25/20 20:14: Bedside Glucose (Misc Panel) 217H 06/26/20 06:24: Nucleated Red Blood Cells % (auto) 0.0, Anion Gap 5L, Glomerular Filtration Rate 34.2L, Calcium Level 8.7, Albumin 1.9L 06/26/20 11:35: Bedside Glucose (Misc Panel) 198H 06/26/20 17:00: Bedside Glucose (Misc Panel) 315H CBC/BMP Laboratory Tests 06/26/20 06:24 Attending Note Attending Note Nephrosis sec to diabetic nephropathy DM Type 2 HTN Anasarca Amlodipine stopped. ACEi being increased slowly. Cont BB and Hydralazine. Cont Torsemide for edema. Rahul Cabrera DO Jun 26, 2020 18:36 KEV CABRERA MD Jun 29, 2020 22:29
[2020-06-26] MEDS: ATORVASTATIN 20 MG TAB PO SCH (21:28)
[2020-06-26] MEDS: LEVEMIR (INSULIN DETEMIR) 1 UNITS/0.01ML SC SCH (21:30)
[2020-06-26] MEDS: LIDOCAINE 5% (LIDODERM) PATCH TD SCH (21:31)
[2020-06-26 22:00] VITALS: BP 165/81
[2020-06-27] MEDS: oxyCODONE 15 MG CR TAB PO SCH ×2 (01:09→08:52)
[2020-06-27 06:00] VITALS: BP 162/85
[2020-06-27] MEDS: **hydrALAZINE HCL** 25 MG TAB PO SCH ×2 (06:10→13:39)
[2020-06-27] MEDS: SODIUM CHLORIDE 0.9% INJ 10 ML SYR IV SCH (06:11)
[2020-06-27 06:23] LABS: HEMATOCRIT 50.5 % (42.0-52.0); HEMOGLOBIN 14.6 g/dl (13.5-17.5); MEAN CORPUSCULAR HEMOGLOBIN 21.8 pg (27.0-33.0); MEAN CORPUSCULAR HGB CONC 28.9 g/dl (32.0-36.5); MEAN CORPUSCULAR VOLUME 75.4 fl (80.0-96.0); PLATELET COUNT, AUTOMATED 353 10^3/uL (150-450); WHITE BLOOD COUNT 7.9 10^3/uL (4.0-10.0)
[2020-06-27 06:45] LABS: CALCIUM LEVEL 9.1 MG/DL (8.5-10.1); CREATININE FOR GFR 2.04 MG/DL (0.70-1.30); GLOMERULAR FILTRATION RATE 35.8 (>56); POTASSIUM SERUM 3.8 MEQ/L (3.5-5.1)
[2020-06-27] MEDS: buPROPion **XL** TABLET 150MG (WELLBUTRIN XL) PO SCH (08:51)
[2020-06-27] MEDS: HYDROXYUREA 500 MG CAP PO SCH (08:51)
[2020-06-27] MEDS: CETIRIZINE (ZyrTEC) 10 MG TAB PO SCH (08:51)
[2020-06-27] MEDS: APIXABAN 5 MG TAB (ELIQUIS) PO SCH (08:51)
[2020-06-27] MEDS: ASPIRIN 81 MG ENTERIC TAB PO SCH (08:51)
[2020-06-27] MEDS: OMEPRAZOLE 20 MG CAP PO SCH (08:51)
[2020-06-27] MEDS: GABAPENTIN 100 MG CAP PO SCH (08:51)
[2020-06-27] MEDS: BACLOFEN 10 MG TAB PO SCH (08:52)
[2020-06-27] MEDS: FLUTICASONE PROP 0.05% NASAL SPRAY 16 GM (FLONASE) SCH (08:53)
[2020-06-27] MEDS: METOPROLOL TART 25 MG TABLET PO SCH (08:54)
[2020-06-27] MEDS: TORSEMIDE 20 MG TAB PO SCH (08:54)
[2020-06-27] MEDS: lisinopriL 20 MG TAB PO SCH (08:54)
[2020-06-27] MEDS: **NOTE PATIENT COMMENT** MISC XX SCH (08:54)
[2020-06-27] MEDS: HumaLOG INSULIN (NovoLOG) PER UNIT SC SCH ×2 (08:55→13:40)
[2020-06-27] MEDS: HumuLIN R (REGULAR) INSULIN (NovoLIN R) **100U/ML** PER UNIT SC SCH (08:56)
[2020-06-27] MEDS ORDERED: lisinopriL 10 MG TAB PO ONE (09:30)
[2020-06-27] MEDS ORDERED: INSUDET SC (10:40)
[2020-06-27] MEDS ORDERED: LISI20TA33 PO (10:41)
[2020-06-27 11:05] LABS: APPEARANCE, URINE CLEAR (CLEAR); BACTERIA, URINE AUTO NEGATIVE (NEGATIVE); BILIRUBIN, URINE AUTO NEGATIVE (NEGATIVE); BLOOD, URINE BLOOD NEGATIVE (NEGATIVE); COLOR, URINE STRAW (YELLOW); GLUCOSE, URINE (UA) AUTO 2+ mg/dL (NEGATIVE); KETONE, URINE AUTO NEGATIVE (NEGATIVE); LEUKOCYTE ESTERASE, URINE AUTO NEGATIVE (NEGATIVE); NITRITE, URINE AUTO NEGATIVE (NEGATIVE); PROTEIN, URINE AUTO 3+ mg/dL (NEGATIVE); RBC, URINE AUTO 1 /HPF (0-3); SPECIFIC GRAVITY URINE AUTO 1.005 (1.002-1.035); SQUAMOUS EPITHELIAL CELL UR AU 0 /HPF (0-6); UROBILINOGEN, URINE AUTO 0.2 mg/dL (0.0-2.0); WBC, URINE AUTO 0 /HPF (0-3)
[2020-06-27 11:27] LABS: CREATININE,RANDOM URINE 13.2 MG/DL; TOTAL PROTEIN,RANDOM URINE 227.8 MG/DL (0.0-12.0)
--- NOTE | 2020-06-27 11:45 | DS.PDOC ---
Discharge Summary General Date of Admission Jun 15, 2020 at 19:40 Date of Discharge 06/27/20 Discharge Summary DISCHARGE DIAGNOSES: Nephrotic range proteinuria Diabetic nephropathy-AVOID METFORMIN Uncontrolled type 2 insulin-dependent diabetes Chronic kidney disease stage III Uncontrolled hypertension Obesity, BMI of 34 Diastolic congestive heart failure ,ejection fraction of 50-55% with preserved systolic function Generalized anasarca due to nephrotic syndrome-admission weight 134 kg discharge weight 130 kg Hypertensive heart disease Atypical chest pain, resolved History of right approximately DVT and pulmonary embolism on chronic anticoagulation SARAH on CPAP Depression anxiety History of recurrent left lower extremity nonhealing osteomyelitis, status post [id number] amputation Reducible Chronic ventral hernia without incarceration DISCHARGE MEDICATIONS: Please see below. ALLERGIES: Please see below. DISCHARGE INSTRUCTIONS: pcp and nephrology appt within 5 days 2 liter fluid restriction daily weights call nephrology if2lb weight gain or higher. renal diet avoid nsaids. Avoid metformin HOSPITAL COURSE: 59-year-old male with history of stage III chronic kidney disease, DVT, PE and chronic anticoagulation, recent diagnosis of leukemia, chronic erythrocytosis on Hydrea ,hypertension, insulin-dependent type 2 diabetes, obstructive sleep apnea, peripheral vascular disease with left [id number] amputation due to nonhealing ulcers, gout, reflux, chronic back and joint pains, Ventral hernia with mesh placement admitted on 06/15/2020 with complaints of abdominal pain, was found to have generalized anasarca and acute on chronic renal failure. Repeat echocardiogram shows ejection fraction of 50-55% with no valvular disease. Patient had uncontrolled type 2 diabetes and hypertension , Which improved with increasing doses of Levemir up to 12 units subcutaneous twice a day, as well as adding increasing dose of lisinopril to 30 mg daily and hydralazine 25 mg 3 times a day, respectively. Nephrology was consulted for fluid management and recommended CT guided biopsy of the kidneys which was done by interventional radiology, Dr. Vega. His arm with discharge anticoagulation was held prior to biopsy and resumed post biopsy. Patient was diuresed following up regarding midline placement for IV access. His volume status has returned to baseline.He Is medically stable for hospital discharge. Anasarca secondary to nephrotic range proteinuria / diabetic nephropathy -Echocardiogram 06/18/2020 demonstrated EF of 50 to 55% with probably normal diastolic function -Urine studies suggestive of nephrotic syndrome -Status post CT-guided renal biopsy by interventional radiology -Nephrology following, recommendations appreciated Atypical chest pain -Sharp chest pain that lasts for a few seconds -Repeat EKG negative for ischemia -Repeated troponin set x2 were negative -Continued aspirin and sublingual nitro as needed -May need outpatient stress test Hypertension -Discharged on hydralazine 25 mg every 8 hourly and lisinopril 30 mg daily, managed by nephrology JANIE on CKD stage 3/nephrotic range proteinuria/diabetic nephropathy -Nephrology consulted, recommendations appreciated -Increase lisinopril to 30 mg daily for better blood pressure control -Renal biopsy consistent with nephrotic range proteinuria secondary to diabetic nephropathy DM type 2 with neuropathy -Uncontrolled hyperglycemia treated with increasing doses of Levemir -discharged on Levemir insulin 12 units subcutaneous twice a day -Continue FSBS and sliding scale insulin -Continue gabapentin 100mg TID History of RUE DVT and PE -Held apixaban for renal biopsy. -restarted tomorrow 06/22/2020 SARAH -Own nocturnal CPAP Depression/anxiety -Bupropion chronic back pain/DJD -Oxycontin Obesity -BMI 34 DVT ppx apixaban PHYSICAL EXAMINATION ON DISCHARGE: VITAL SIGNS: Please see below. General Exam: Positive: Alert, Cooperative, No Acute Distress . No use of accessory respiratory muscles Eye Exam: Positive: EOMI, anicteric ENT Exam: Positive: Atraumatic Neck Exam: Positive: Supple; normal range of motion Negative: JVD, no stridor. No Carotid bruit Chest Exam: Positive: Clear to auscultation, Normal air movement; Negative: Rales, Rhonchi, Wheezing Heart Exam: Positive: Rate Normal, Regular Rhythm, S1, S2 Abdomen Exam: Positive: Normal bowel sounds, Soft, Tenderness (ventral where hernia was located), Hernia Extremity Exam: Positive: Edema (+2 pitting edema of the legs, however, much improved from yesterday, softer today) Neuro Exam: Positive: Cranial Nerves 3-12 NL Psych Exam: Positive: Mental status NL, Mood NL LABORATORY DATA: Please see below. 2D ECHOCARDIOGRAM: DATE OF PROCEDURE: 06/18/2020 Age: 59 Gender: Male Height: 166 cm Weight: 125 kg REFERRING PHYSICIAN: Paula Aguila MD INDICATION: Dyspnea. MEASUREMENTS: IVS 1.5 cm LV 5.5 cm LVPW 1.4 cm LA 4.5 cm Aorta 3.4 cm RV 4.0 LA volume index 30 IVC 2.5 cm Mitral E wave velocity 84 Mitral A wave 43 E prime septal 6.5 E prime lateral 9.6 FINDINGS: This study is of good technical quality. Underlying sinus rhythm with wide QRS complex. Left ventricle is of normal size. Moderate left ventricular hypertrophy is present. Estimated overall EF is approximately 50% to 55%. No segmental wall motion abnormalities are appreciated. Right ventricle appears borderline dilated, but normally contractile. Left atrium is moderately enlarged. Right at rium also appears enlarged. The aortic valve is sclerotic, but has three cuspsand preserved mobility. Mitral, tricuspid, and pulmonic valves appear normal. Nopericardial effusion is noted. Inferior vena cava is dilated and there is minimal collapse with inspiration indicative of high central venous pressure. The aortic root is normal. The aortic arch and abdominal aorta were not well seen. Doppler interrogation reveals no aortic stenosis or insufficiency. There is trace mitral insufficiency. Tricuspid and pulmonic valves are functionally competent. Mitral inflow pattern and tissue Doppler velocities of the mitral annulus reveallikely normal diastolic function even thought tissue Doppler velocities are mildly reduced. CONCLUSIONS: 1. Study is of good technical quality, underlying sinus rhythm with wide QRS complex. 2. Normal LV size with moderate LVH and low normal LV systolic function, estimated LVEF 50% to 55%. Probably normal diastolic function. 3. Aortic sclerosis with no stenosis or insufficiency. 4. Trace mitral insufficiency. 5. Competent tricuspid and pulmonic valves. 6. Elevated central venous pressure. 7. Unable toestimate pulmonary artery pressure. COMMENTS: Study is most consistent with hypertensive heart disease. DD: Remberto Phillips MD 06/19/202007 DT: NORRIS 06/20/20 0808 DS: CORRY 06/22/20 1116 <Electronically signed by Remberto Phillips MD> 06/22/20 1116 IMAGING STUDIES: CT ABD/PELVIS PROCEDURE INFORMATION: Exam: CT Abdomen And Pelvis Without Contrast Exam date and time: 06/15/2020 3:01 PM Age: 59 years old Clinical indication: Pain and condition or disease; Hernia; Complications not specified; Abdominal pain; Generalized; Additional info: Diffuse abd pain, known hernia supra umbil to lower abd TECHNIQUE: Imaging protocol: Computed tomography of the abdomen and pelvis without contrast. Radiation optimization: All CT scans at this facility use at least one of these dose optimization techniques: automated exposure control; mA and/or kV adjustment per patient size (includes targeted exams where dose is matched to clinical indication); or iterative reconstruction. Other contrast: Oral, redicat; COMPARISON: CT ABD/PEL W/PO CONTRAST ONLY 01/25/2020 6:46 PM FINDINGS: Lungs: No suspicious mass or airspace process in the visualized lung bases. Liver: Liver appears enlarged without focal lesion. Gallbladder and bile ducts: Gallbladder is present and shows no evidence of gallstone. Pancreas: Noncontrast pancreas shows no obvious mass or adjacent fluid. Spleen: Spleen is enlarged measuring 16 cm. No focal lesion. Adrenal glands: Left adrenal demonstrates a 15 mm fat density lesion on axial image 52 consistent with a benign adenoma. No change. Kidneys and ureters: Kidneys show no stone or hydronephrosis. Stomach and bowel: No evidence of small bowel obstruction. Terminal ileum has normal appearance. No evidence of acute diverticulitis. Appendix: Normal caliber appendix is identified, with no adjacent inflammation. Intraperitoneal space: No pneumoperitoneum. Vasculature: Atherosclerotic change present in the aorta, without aneurysm. Lymph nodes: Small mesenteric and retroperitoneal lymph nodes. No bulky adenopathy. Urinary bladder: Urinary bladder appears normal. Reproductive: No overt enlargement of the prostate gland. Bones/joints: Mild degenerative change in the lumbar spine and hip joints. Soft tissues: Diffuse body wall edema is present. Right gluteus minimus benign lipoma, incidental Other findings: Evaluation of solid organs is limited without IV contrast. IMPRESSION: 1. No bowel containing hernia. The patient's reported supraumbilical hernia is not well visualized, possibly secondary to the extensive body wall edema that is present. 2. Hepatosplenomegaly without evidence of ascites. 3. Incidental benign left adrenal gland adenoma. COMMENTS: Consistent with the [employer]'s Incidental Findings Committee white paper (J Am Holley Radiol 2017): For any incidental adrenal lesion greater than 1 cm but less than 4 cm classified in this report as benign, likely benign, or containing fat (including classification as an adenoma or myelolipoma), no follow-up imaging is recommended per consensus recommendations based on imaging criteria. Further lab evaluation could be pursued if warranted based on clinical findings. Electronically signed by: Raoul Mendoza On 06/15/2020 17:52:41 CXR: INDICATION: chest discomfort, crackles. COMPARISON: Comparison chest x-ray April 23, 2020. TECHNIQUE: Two views.. FINDINGS: Clothing artifact overlies the precordium on the frontal view. The lungs are well inflated and free of infiltrate. Pleural angles are sharp. Heart size is normal. Pulmonary vasculature is not increased. There are mild degenerative changes in the thoracic spine. The aorta is slightly tortuous. IMPRESSION: No active disease.. <Electronically signed by Jeff Chris > 06/15/20 1506 PROCEDURES PERFORMED DURING STAY: Date Of Procedure: Jun 21, 2020 Time Of Procedure: 16:[address] Guided kidney biopsy. IR Moderate sedation. Clinical Information:Renal failure. Physician: Dr. Vega. PROCEDURE NAME: MIDLINE INSERTION W/ SITERITE CLINICAL INFORMATION: Poor access. COMPARISON: None. PROCEDURE DESCRIPTION: The procedure was performed by Ofelia Snow [facility], under the direct supervision of Dr. Chris. The risks and benefits of the procedure were explained to the patient and an informed consent was obtained both verbally and written. Directly prior to the start of the procedure a formal time-out was completed in the procedure room. The left basilic vein was localized using ultrasound guidance. The skin was prepped and draped in sterile fashion. One mL of 1% lidocaine 10 mg/mL was used as a local anesthetic. Using ultrasound guidance the left basilic vein was cannulated, and a 0.018 guidewire was inserted. The needle was removed and a 5.5 [place] dilator and peel-away sheath was inserted over the guidewire. A 5.5 [place] dual lumen catheter was cut to a length of 12 cm. The dilator was removed and the catheter was inserted over the guidewire. The peel-away sheath was removed and the catheter was flushed with heparinized saline as per hospital protocol. The catheter was affixed to the skin and a sterile dressing was applied. The patient tolerated the procedure well and there were no immediate complications. CONCLUSION: Mid line insertion into the left basilic vein. <Electronically signed by Ofelia Snow > 06/18/20 1621 <Electronically signed by Jeff Chris > 06/18/20 1657 . TIME SPENT ON DISCHARGE:30 minutes. Vital Signs/I&Os Vital Signs Date Time Temp Pulse Resp B/P (MAP) Pulse Ox O2 Delivery O2 Flow Rate FiO2 06/27/20 09:42 153/80 06/27/20 08:54 74 06/27/20 08:52 20 06/27/20 06:00 98.1 92 Room Air 06/21/20 14:15 2 I&O- Last 24 Hours up to 6 AM 06/27/20 06:00 Intake Total 720 ml Output Total 3550 ml Balance -2830 ml Laboratory Data Labs 24H Laboratory Tests 2 06/26/20 11:35: Bedside Glucose (Misc Panel) 198H 06/26/20 17:00: Bedside Glucose (Misc Panel) 315H 06/26/20 20:47: Bedside Glucose (Misc Panel) 314H 06/27/20 05:40: Nucleated Red Blood Cells % (auto) 0.0, Anion Gap 6L, Glomerular Filtration Rate 35.8L, Calcium Level 9.1 06/27/20 10:32: Urine Color STRAW, Urine Appearance CLEAR, Urine pH 7.0, Urine Specific [place] 1.005, Urine Protein 3+H, Urine Glucose (Auto)(UA) 2+H, Urine Ketones (Auto) NE GATIVE, Urine Blood NEGATIVE, Urine Nitrite NEGATIVE, Urine Bilirubin NEGATIVE, Urine Urobilinogen 0.2, Urine Leukocyte Esterase (Auto) NEGATIVE, Urine WBC (Auto) 0, Urine RBC (Auto) 1, Urine Hyaline Casts (Auto) 0, Urine Bacteria (Auto) NEGATIVE, Urine Squamous Epithelial Cells 0, Urine Sperm (Auto) CBC/BMP Laboratory Tests 06/27/20 05:40 FSBS Laboratory Tests Test 06/26/20 11:35 06/26/20 17:00 06/26/20 20:47 Range/Units Bedside Glucose (Misc Panel) 198 315 314 70-105 MG/DL Discharge Medications Scheduled Apixaban (Eliquis) 5 Mg Tablet, 5 MG PO BID, (Reported) Aspirin (Aspirin EC) 81 Mg Tablet.dr, 81 MG PO DAILY, (Reported) Atorvastatin Calcium (Atorvastatin Calcium) 10 Mg Tablet, 10 MG PO QHS, (Reported) Baclofen (Baclofen) 10 Mg Tablet, 10 MG PO BID, (Reported) Bupropion HCl (Bupropion Xl) 150 Mg Tab.er.24h, 150 MG PO DAILY, (Reported) Fluticasone Propionate (Flonase Allergy Relief) 9.9 Ml [place].susp, 2 SPRAYS NA DAILY, (Reported) Gabapentin (Gabapentin) 100 Mg Capsule, 100 MG PO TID, (Reported) Hydralazine HCl (Hydralazine HCl) 25 Mg Tablet, 25 MG PO Q8H Hydroxyurea (Hydroxyurea) 500 Mg Capsule, 500 MG PO DAILY, (Reported) Insulin Detemir (Levemir) 100 Unit/1 Ml Vial, 12 UNITS SC BID Levocetirizine Dihydrochloride (Levocetirizine Dihydrochloride) 5 Mg Tablet, 5 MG PO QHS, (Reported) Lidocaine (Lidoderm) 5% Adh..patch, 2 PATCH TD DAILY, (Reported) Apply to area of pain, Remove patch after 12 hours APPLY TO SHOULDERS Lisinopril (Lisinopril) 20 Mg Tablet, 30 MG PO DAILY Metoprolol Tartrate (Metoprolol Tartrate) 25 Mg Tablet, 25 MG PO BID Omeprazole (Omeprazole) 20 Mg Capsule.dr, 20 MG PO DAILY, (Reported) Oxycodone HCl (Oxycontin) 30 Mg Tab.er.12h, 30 MG PO Q8H, (Reported) Torsemide (Torsemide) 20 Mg Tablet, 40 MG PO DAILY Scheduled PRN Dicyclomine HCl (Dicyclomine HCl) 10 Mg Capsule, 10 MG PO TID PRN for ABDOMINAL PAIN, (Reported) Metoclopramide HCl (Metoclopramide HCl) 10 Mg Tablet, 10 MG PO BID PRN for NAUSEA, (Reported) Oxycodone Hcl (Oxycodone HCl) 15 Mg Tablet, 15 MG PO Q4H PRN for PAIN, (Reported) Allergies Coded Allergies: povidone-iodine (Verified Allergy, Unknown, 08/18/18) soap (Verified Allergy, Unknown, 08/18/18) DIPIKA ESPINOSA MD Jun 27, 2020 11:22
[2020-06-27 13:39] VITALS: BP 143/83
--- NOTE | 2020-06-27 13:58 | IPNPDOC ---
Subjective Date Seen The patient was seen on 06/27/20. Subjective Chief Complaint/HPI Pt and nursing staff deny any overnight events. Pt is tolerating oral intake well and is able to transfer from bed to wheelchair by himself. General: Denies: ROS Unobtainable, Chills, Night Sweats, Fatigue, Malaise, Normal Appetite, Other Symptoms Constitutional: Reports: Weakness (complains of upper extremity weakness consistent with chronic changes); Denies: Chills, Fever, Malaise, Night Sweats, Fatigue, Weight Loss, Lethargy, Other Pulmonary: Denies: Dyspnea, Cough, Pleuritic Chest Pain, Other Symptoms Objective Physical Examination General Exam: Positive: Alert, Cooperative, No Acute Distress Eye Exam: Positive: EOMI ENT Exam: Positive: Atraumatic Neck Exam: Positive: Supple; Negative: JVD Chest Exam: Positive: Clear to auscultation, Normal air movement; Negative: Rales, Rhonchi, Wheezing Heart Exam: Positive: Rate Normal, Regular Rhythm Abdomen Exam: Positive: Normal bowel sounds, Soft, Tenderness (ventral where hernia was located), Hernia Extremity Exam: Positive: Edema (+1 pitting edema of the legs, however, much improved from yesterday, softer today) Neuro Exam: Positive: Cranial Nerves 3-12 NL Psych Exam: Positive: Mental status NL, Mood NL Assessment /Plan Assessment # Nephrotic range proteinuria: Patient had generalized anasarca that is improving. Increased lisinopril to 30mg dose. Continue statins and torsemide. Renal biopsy showed diabetic nephropathy. Optimize diabetic regimen. # Hypertension: Continue metoprolol, hydralazine, and lisinopril. # T2DM, insulin-dependent: Avoid use of Metformin, adjustment of insulin is as per medical team. # CKDIII likely secondary to diabetic nephropathy: Pt tolerating diuretics and RUPAL inhibitors. Creatinine remains at ~2. Disposition: Pt is renally optimized and nephrology service is deferring decision to discharge pt to primary medical team. Plan/VTE VTE Prophylaxis Ordered?: Yes (Pt is taking Eliquis.) GME ATTESTATION My faculty preceptor for this patient encounter was physically present during the encounter and was fully available. All aspects of the patient interview, examination, medical decision making process, and medical care plan development were reviewed and approved by the faculty preceptor. The faculty preceptor is aware and concurs with the plan as stated in the body of this note and will attest to such by his/her cosignature. VS, I&O, 24H, Fishbone Vital Signs/I&O Vital Signs Date Time Temp Pulse Resp B/P (MAP) Pulse Ox O2 Delivery O2 Flow Rate FiO2 06/27/20 13:39 143/83 06/27/20 08:54 74 06/27/20 08:52 20 06/27/20 06:00 98.1 92 Room Air 06/21/20 14:15 2 I&O- Last 24 Hours up to 6 AM 06/27/20 06:00 Intake Total 720 ml Output Total 3550 ml Balance -2830 ml Laboratory Data 24H LABS Laboratory Tests 2 06/26/20 17:00: Bedside Glucose (Misc Panel) 315H 06/26/20 20:47: Bedside Glucose (Misc Panel) 314H 06/27/20 05:40: Nucleated Red Blood Cells % (auto) 0.0, Anion Gap 6L, Glomerular Filtration Rate 35.8L, Calcium Level 9.1 06/27/20 10:32: Urine Color STRAW, Urine Appearance CLEAR, Urine pH 7.0, Urine Specific [place] 1.005, Urine Protein 3+H, Urine Glucose (Auto)(UA) 2+H, Urine Ketones (Auto) NEGATIVE, Urine Blood NEGATIVE, Urine Nitrite NEGATIVE, Urine Bilirubin NEGATIVE, Urine Urobilinogen 0.2, Urine Leukocyte Esterase (Auto) NEGATIVE, Urine WBC (Auto) 0, Urine RBC (Auto) 1, Urine Hyaline Casts (Auto) 0, Urine Bacteria (Auto) NEGATIVE, Urine Squamous Epithelial Cells 0, Urine Sperm (Auto) , Urine Random Creatinine 13.2, Urine Random Total Protein 227.8H 06/27/20 11:32: Bedside Glucose (Misc Panel) 266H CBC/BMP Laboratory Tests 06/27/20 05:40 Attending Note Attending Note Nephrosis sec to diabetic nephropathy HTN Anasarca IDDM CKD3 sec to DM Type2 Keep Torsemide for now. ACEi dose being slowly increased. OK to Dc home. Edema is improving now. follow up Nephrology office in 2 week. Rhaul Cabrera DO Jun 27, 2020 13:58 KEV CABRERA MD Jul 03, 2020 13:09
[2020-06-27 14:00] VITALS: BP 128/80
[2020-06-27] MEDS ORDERED: LEVEMIR (INSULIN DETEMIR) 1 UNITS/0.01ML SC SCH (21:00)
[2020-06-28] MEDS ORDERED: lisinopriL 20 MG TAB PO SCH (09:00)
== END 2020-06-27 15:18 | disposition home or self-care (01) | DRG 699 ==
LOC: M ED 13:52 → M ED INP 19:40 → EEVIPCON 19:40 → M MSPAV 23:53
PROVIDERS: ADMIT Internal Medicine; ATTEND General Practice
PROC: 05HC33Z Insertion of Infusion Device into Left Basilic Vein, Percutaneous Approach (ICD-10-PCS; principal; 2020-06-18 16:01)
PROC: 0TB13ZX Excision of Left Kidney, Percutaneous Approach, Diagnostic (ICD-10-PCS; 2020-06-21)
DX: E11.22 Type 2 diabetes mellitus with diabetic chronic kidney disease (principal); I50.32 Chronic diastolic (congestive) heart failure; C95.90 Leukemia, unspecified not having achieved remission; E87.0 Hyperosmolality and hypernatremia; I13.0 Hypertensive heart and chronic kidney disease with heart failure and stage 1 through stage 4 chronic kidney disease, or unspecified chronic kidney disease; K43.6 Other and unspecified ventral hernia with obstruction, without gangrene; N17.9 Acute kidney failure, unspecified; N04.9 Nephrotic syndrome with unspecified morphologic changes; N18.30 Chronic kidney disease, stage 3 unspecified; G47.33 Obstructive sleep apnea (adult) (pediatric); F32.9 Major depressive disorder, single episode, unspecified; E11.42 Type 2 diabetes mellitus with diabetic polyneuropathy; R07.89 Other chest pain; M10.9 Gout, unspecified; K21.9 Gastro-esophageal reflux disease without esophagitis; E11.51 Type 2 diabetes mellitus with diabetic peripheral angiopathy without gangrene; E66.9 Obesity, unspecified; E11.65 Type 2 diabetes mellitus with hyperglycemia; Z68.32 Body mass index [BMI] 32.0-32.9, adult; Z79.01 Long term (current) use of anticoagulants; Z79.82 Long term (current) use of aspirin; Z79.891 Long term (current) use of opiate analgesic; Z79.4 Long term (current) use of insulin; Z79.899 Other long term (current) drug therapy; Z88.8 Allergy status to other drugs, medicaments and biological substances; Z89.612 Acquired absence of left leg above knee; Z89.421 Acquired absence of other right toe(s); Z91.048 Other nonmedicinal substance allergy status; Z86.711 Personal history of pulmonary embolism; Z86.718 Personal history of other venous thrombosis and embolism; Z96.651 Presence of right artificial knee joint; Z87.891 Personal history of nicotine dependence

== ENCOUNTER → 2020-08-07 | Outpatient (REF) | payer MEDICARE, MEDICAID ==
[~2020-08-07] MED LIST changes: +ASPI-569 PO; -ASPI81TAEC PO; +BD P31MI2 SC; +BUPR150T12 PO; -BUPR150T4 PO; +DICY10CA13 PO; +FREEMIS42 TOP; +GNPPAD5 XX; +LANC1COM MC; +LIDO5DIS41 TD; +LISI20TA33 PO; +METO1TAB87 PO; +TORS20TA2 PO
[2020-08-07 18:59] LABS: CHOLESTEROL RISK RATIO 2.723 (<5)
== END ==
LOC: M LAB REF 18:02
PROVIDERS: ATTEND Family Medicine Addiction Medicine
DX: E11.9 Type 2 diabetes mellitus without complications (principal)

== ENCOUNTER 2020-12-05 21:27 | Inpatient (IN) | payer MEDICARE, MEDICAID ==
[~2020-12-05] VITALS: Ht 195.6 cm; Wt 115.1 kg
[2020-12-05] MEDS: ATORVASTATIN 10 MG TAB PO SCH (21:00)
[2020-12-05 22:18] LABS: BASO # 0.1 10^3/uL (0.0-0.2); BASO % 0.8 % (0.0-1.0); EOS # 0.3 10^3/uL (0.0-0.5); HEMATOCRIT 38.3 % (42.0-52.0); HEMOGLOBIN 11.9 g/dl (13.5-17.5); LYMPH # 0.5 10^3/uL (1.5-5.0); LYMPH % 4.8 % (24.0-44.0); MEAN CORPUSCULAR HEMOGLOBIN 28.9 pg (27.0-33.0); MEAN CORPUSCULAR HGB CONC 31.1 g/dl (32.0-36.5); MONO # 0.6 10^3/uL (0.0-0.8); MONO % 6.3 % (2.0-8.0); NEUTROPHILS % 83.1 % (36.0-66.0); PLATELET COUNT, AUTOMATED 553 10^3/uL (150-450); RED BLOOD COUNT 4.12 10^6/uL (4.30-6.10); WHITE BLOOD COUNT 9.7 10^3/uL (4.0-10.0)
--- NOTE | 2020-12-05 23:14 | REPVR ---
PROCEDURE INFORMATION: Exam: XR Chest Exam date and time: 12/05/2020 10:02 PM Age: 60 years old Clinical indication: Other: Chest pain TECHNIQUE: Imaging protocol: XR of the chest. Views: 1 view. COMPARISON: MI Chest, 1 view 04/23/2020 4:18 PM FINDINGS: Lungs: The lungs appear clear. Pleural spaces: There is no evidence of pneumothorax or pleural effusion. Heart/Mediastinum: The heart is normal in size. Bones/joints: There is no evidence of bony abnormality. IMPRESSION: Clear appearing lungs. Electronically signed by: Reggie Nuno On 12/05/2020 23:13:23 PM
[2020-12-05] MEDS ORDERED: ACETAMINOPHEN TAB 650MG DOSE (2X325MG) PO ONE (23:55)
[2020-12-06 00:16] LABS: ALBUMIN 2.1 GM/DL (3.2-5.2); ALT/SGPT 14 U/L (12-78); BILIRUBIN,DIRECT 0.1 MG/DL (0.0-0.2); BILIRUBIN,TOTAL 0.3 MG/DL (0.2-1.0); BLOOD UREA NITROGEN 42 MG/DL (7-18); C REACTIVE PROTEIN QUANTITATIV 8.02 MG/DL (0.00-0.30); CALCIUM LEVEL 8.7 MG/DL (8.8-10.2); CARBON DIOXIDE LEVEL 26 MEQ/L (21-32); CHLORIDE LEVEL 106 MEQ/L (98-107); CK-MB VALUE MASS 1.3 NG/ML (<3.6); CPK CREATINE PHOSPHOKINASE 85 U/L (39-308); CREATININE FOR GFR 3.41 MG/DL (0.70-1.30); ETHYL ALCOHOL (ETHANOL) < 0.003 % (0.000-0.010); GLOMERULAR FILTRATION RATE 19.7 (>49); GLUCOSE, FASTING 135 MG/DL (70-100); MB/CK RELATIVE INDEX 1.53 (< OR =4); POTASSIUM SERUM 5.4 MEQ/L (3.5-5.1); SODIUM LEVEL 140 MEQ/L (136-145); TROPONIN I < 0.02 NG/ML (< 0.10)
[2020-12-06 00:33] LABS: ERYTHROCYTE SEDIMENTATION RATE 69 mm/hr (0-20)
[2020-12-06] MEDS ORDERED: NS 1,000 ML IV ONE (00:35)
[2020-12-06] MEDS ORDERED: VANCOMYCIN HCL 1,000 MG, VIAL MATE ADAPTER 1 EACH in NS 250 ML IV ONE (00:35)
[2020-12-06] MEDS: MORPHINE 2 MG/ML 1ML VIAL (J2270) IV PRN ×2 (00:51→02:34)
[2020-12-06] MEDS ORDERED: INSUDET SC (01:14)
[2020-12-06] MEDS ORDERED: LISI30TA4 PO (01:22)
[2020-12-06] MEDS ORDERED: OXYC20TA40 PO (01:22)
[2020-12-06] MEDS ORDERED: CALC1CAP31 PO (01:22)
[2020-12-06] MEDS ORDERED: D31000TA2 PO (01:22)
[2020-12-06] MEDS ORDERED: METO1TAB33 PO (01:22)
[2020-12-06] MEDS ORDERED: TORS20TA2 PO (01:22)
[2020-12-06 01:33] LABS: AMPHETAMINES LEVEL URINE NEGATIVE (NEGATIVE); BARBITURATES URINE NEGATIVE (NEGATIVE); BENZODIAZEPINES URINE NEGATIVE (NEGATIVE); CANNABINOIDS URINE POSITIVE (NEGATIVE); COCAINE METABOLITE URINE NEGATIVE (NEGATIVE); METHADONE URINE NEGATIVE (NEGATIVE); OPIATES URINE POSITIVE (NEGATIVE); PHENCYCLIDINE URINE NEGATIVE (NEGATIVE)
--- NOTE | 2020-12-06 01:41 | REPVR ---
PROCEDURE INFORMATION: Exam: XR Right Foot Exam date and time: 12/05/2020 12:00 AM Age: 60 years old Clinical indication: Other: Diabetic; Additional info: Diabetic foot/fever TECHNIQUE: Imaging protocol: XR Right foot. Views: 3 or more views. COMPARISON: CR Foot, complete 10/29/2018 5:13 PM FINDINGS: Bones/joints: Prior amputation of the 1st toe. Advanced osteoarthritis in the foot and ankle. No erosive or destructive changes. Calcaneal enthesopathy at the plantar fascia and Achilles tendon attachments. Soft tissues: Soft tissue swelling with small area of subcutaneous emphysema in the medial foot. There is a 3 mm curvilinear metallic foreign body in the plantar surface of the hindfoot. IMPRESSION: 1. Advanced osteoarthritis. 2. No signs of acute osteomyelitis or fracture. 3. Soft tissue swelling with small area of subcutaneous emphysema in the medial foot. 4. 3 mm subcutaneous foreign body in the plantar hindfoot. Electronically signed by: Fidel Epps On 12/06/2020 01:41:01 AM
--- NOTE | 2020-12-06 02:37 | HPEPDOC ---
[facility] Medical History & Physical Date of Admission Dec 06, 2020 Date of Service: Dec 06, 2020 Other Provider Kavon Dixon MD Attending Physician: TONI OLIVA MD History and Physical TIME OF SERVICE: 3:15 AM CHIEF COMPLAINT: Foot pain HISTORY OF PRESENT ILLNESS: Mr. Herrera , a 60-year-old gentleman, who presented with multiple complaints. Per Dr. Caba he initially presented with complaints of right foot redness along with diarrhea. At the time of my evaluation he was more concerned about his chronic right neck pain, right lower back pain, right hip pain and right leg pain; his PCP has referred him to orthopedics but currently the pain is bothering him. He agreed that he also has had a right foot and right lower leg pain for 3 or 4 days along with fevers and chills. He denied falling, and reported that the diarrhea, which was transient, has resolved. Also added that he has lost weight, was concerned about the size of his spleen and reported that the last 3 times he went to the cancer center his hemoglobin was below the threshold for phlebotomy. REVIEW OF SYSTEMS: 10 point review of systems negative except as listed in HPI PAST MEDICAL/ SURGICAL HISTORY: Recently diagnosed JAK2 + polycythemia vera (he receives phlebotomy weekly), hypertensive heart disease, splenomegaly, Hx of RUE DVT & PE, CKD3/4 ( he has a nephrotic syndrome and history of anasarca), SARAH, Depression, IDDM w neuropathy, s/p L BKA (had L chronic foot ulcer that progressed to chronic osteomyelitis after stepping on a metal hayder), hx of Gout, GERD, Chronic back pain / DJD, Tonsillectomy, Ventral hernia repair w mesh placement, Inguinal hernia repair, Knee surgery, R hallux amputation SOCIAL HISTORY: Former smoker / no alcohol / + medical THC FAMILY HISTORY: Father who is had DM / Mother who is had CAD, a pacemaker & DM ALLERGIES: Please see below. HOME MEDICATIONS: Please see below. PHYSICAL EXAMINATION: Vital Signs Date Time Temp Pulse Resp B/P (MAP) Pulse Ox O2 Delivery O2 Flow Rate FiO2 12/05/20 21:28 102.3 91 20 131/91 (104) 98 Room Air GENERAL APPEARANCE: well nourished and developed /appears to feeling unwell and distracted because of his malaise HEENT: EOMI / MMM&P CARDIOVASCULAR: RRR/NMRG LUNGS: CTAB on RA ABDOMEN: contour convex MUSCULOSKELETAL: NCAT /he has a left BKA, and a right hallux amputation/lower back is not tender with palpation INTEGUMENT: Is not diaphoretic/the skin on the dorsal surface of the right foot extending up to the toes has rubor and calor /the skin at the anterior part of the right lower extremity has rubor & calor NEUROLOGICAL: CN 2-12 intact / speech not dysarthric /there is some redness at the posterior aspect of the occiput /there are no rashes or lesions on the lower back PSYCHIATRIC: A&O x3 /able to understand and follow all commands LABORATORY DATA: 12/05/20 22:53 IMAGING: Chest x-ray IMPRESSION: Clear appearing lungs. Foot x-ray IMPRESSION: 1. Advanced osteoarthritis. 2. No signs of acute osteomyelitis or fracture. 3. Soft tissue swelling with small area of subcutaneous emphysema in the medial foot. 4. 3 mm subcutaneous foreign body in the plantar hindfoot. MICROBIOLOGY: Respiratory panel is negative ASSESSMENT: Mr. Sheets is a 60-year-old with a history of JAK2 + PCV, Hx of RUE DVT & PE, CKD3/4 with nephrotic syndrome, SARAH, Depression, IDDM w neuropathy, HTN, L BKA & R hallux amputation who was admitted for Right lower extremity swelling possibly due to cellulitis, and JANIE on CKD . PLAN: 1 Possible right lower extremity cellulitis -The x-ray shows a foreign body -He does not have SIRS -The pattern of distribution of redness is a bit unusual for cellulitis (primarily the anterior part of the right lower leg and foot are affected); further his ALT-70 Score to diagnose LE Cellulitis is only 4 points which is equivocal for cellulitis therefore we should consult dermatology or infectious disease to help confirm the diagnosis. Plan: Admit to medical floor/IV fluids/ follow-up blood cultures start linezolid which has activity against MSSA MRSA strep and VRE /acetaminophen for fever/ with regards to the foreign body we will ask the daytime team to consult Ortho and ID 2 JANIE on CKD 3/4 vs CKD He has nephrotic syndrome We do not have recent renal studies but when compared to his previous renal studies his renal function is worse Plan: Consult Dr. Ball /hold torsemide, omeprazole and and Lisinopril /monitor I's and O's weight/renal diet / Calcitriol 3 Normocytic normochromic anemia / PCV He has JAK2 positive polycythemia and mentioned that the last 3 times he was post get phlebotomy his hematocrit was low; I suspect that this is related to his worsening renal function Plan: We will asked the daytime team to touch base with his wire frame dipper/follow- up repeat CBC 4 Splenomegaly I am not sure what the primary causes but Dr. Patel's progress note noted that he had discussed starting ruxolitinib with Mr. Herrera Plan: Follow-up with wire frame dipper on an outpatient basis 5 Neck pain lower back and hip pain He has a history of chronic pain and DJD and is on medical THC Plan: Follow-up x-rays of the cervical spine lumbar spine and hips /lidocaine cream/continue with baclofen and oxycodone 6 Hx of RUE DVT & PE Plan: Apixaban 7 IDDM w neuropathy Most recent A1c was 7.6 Plan: f/u accuchecks / hypoglycemia protocol / sliding scale insulin /reduce his Levemir from 14 units twice daily to 7 units twice daily/ his PCP may consider out pt Endo referral to switch the patient from basal bolus injection to continuous subcutaneous insulin infusion which has been shown to produced small improvements in A1C, improve QOL and reduce episodes of severe hypoglycemia 8 Hypertensive heart disease Echo May 2020 CONCLUSIONS: 1. Study is of good technical quality, underlying sinus rhythm with wide QRS complex. 2. Normal LV size with moderate LVH and low normal LV systolic function, estimated LVEF 50% to 55%. Probably normal diastolic function. 3. Aortic sclerosis with no stenosis or insufficiency.4. Trace mitral insufficiency. 5. Competent tricuspid and pulmonic valves. 6. Elevated central venous pressure. 7. Unable to estimate pulmonary artery pressure. COMMENTS: Study is most consistent with hypertensive heart disease. Plan: Metoprolol /hydralazine as needed 9 SARAH Plan: own CPAP 10 Depression Plan: bupropion 9 Chronic back pain / DJD Plan: OxyContin 10. Obesity Complicates care The patient mentioned that he has lost weight, his BMI has decreased from 34 during his admission in May down to 31.6 DVT px n/a bc of NOAC DISPOSITION: home after at least 2 midnight's stay Home Medications Scheduled Apixaban (Eliquis) 5 Mg Tablet, 5 MG PO BID Aspirin (Aspirin EC) 81 Mg Tablet.dr, 81 MG PO DAILY Atorvastatin Calcium (Atorvastatin Calcium) 10 Mg Tablet, 10 MG PO QHS Baclofen (Baclofen) 10 Mg Tablet, 10 MG PO BID Bupropion HCl (Bupropion Xl) 150 Mg Tab.er.24h, 150 MG PO DAILY Calcitriol (Calcitriol) 0.25 Mcg Capsule, 0.25 MCG PO 3XW THURSDAY, THURSDAY AND THURSDAY Cholecalciferol (Vitamin D3) (Vitamin D3) 1,000 Unit Tablet, 1,000 UNITS PO DAILY Fluticasone Propionate (Flonase Allergy Relief) 9.9 Ml [place].susp, 2 SPRAYS NA DAILY Insulin Detemir (Levemir) 100 Unit/1 Ml Vial, 14 UNITS SC BID Levocetirizine Dihydrochloride (Levocetirizine Dihydrochloride) 5 Mg Tablet, 5 MG PO QHS Lisinopril (Lisinopril) 30 Mg Tablet, 30 MG PO DAILY Metoprolol Succinate (Metoprolol Succinate) 100 Mg Tab.er.24h, 100 MG PO DAILY Omeprazole (Omeprazole) 20 Mg Capsule.dr, 20 MG PO DAILY Oxycodone HCl (Oxycontin) 20 Mg Tab.er.12h, 20 MG PO Q12H Torsemide (Torsemide) 20 Mg Tablet, 40 MG PO DAILY Scheduled PRN Oxycodone Hcl (Oxycodone HCl) 15 Mg Tablet, 15 MG PO Q4H PRN for PAIN Allergies Coded Allergies: povidone-iodine (Verified Allergy, Unknown, 08/18/18) soap (Verified Allergy, Unknown, 08/18/18) A-FIB/CHADSVASC A-FIB History Current/History of A-Fib/PAF?: No Current PO Anticoag Therapy: No TONI OLIVA MD Dec 06, 2020 02:37
[2020-12-06] MEDS ORDERED: GLUCAGON INJ 1MG VIAL SC PRN (02:45)
[2020-12-06] MEDS ORDERED: DEXTROSE 50% 50 ML SYRINGE IV PRN (02:45)
[2020-12-06] MEDS ORDERED: GLUCOSE 4GM CHEW TABLET PO PRN (02:45)
[2020-12-06 03:19] LABS: URIC ACID 6.7 MG/DL (3.5-7.2)
[2020-12-06] MEDS ORDERED: LIDOCAINE 5% OINT 30GM TUBE TOP PRN (03:25)
[2020-12-06] MEDS: ACETAMINOPHEN TAB 650MG DOSE (2X325MG) PO PRN ×2 (04:48→11:26)
[2020-12-06] MEDS: oxyCODONE 5MG TAB PO PRN (04:49)
[2020-12-06 04:50] LABS: HEMOGLOBIN 10.8 g/dl (13.5-17.5); MEAN CORPUSCULAR HEMOGLOBIN 28.9 pg (27.0-33.0); MEAN CORPUSCULAR HGB CONC 30.9 g/dl (32.0-36.5); MEAN CORPUSCULAR VOLUME 93.6 fl (80.0-96.0); RED BLOOD COUNT 3.74 10^6/uL (4.30-6.10); WHITE BLOOD COUNT 8.1 10^3/uL (4.0-10.0)
[2020-12-06 04:51] LABS: PLATELET COUNT, AUTOMATED 409 10^3/uL (150-450)
[2020-12-06 05:28] LABS: CALCIUM LEVEL 8.3 MG/DL (8.8-10.2); CREATININE FOR GFR 3.16 MG/DL (0.70-1.30); GLOMERULAR FILTRATION RATE 21.5 (>49); POTASSIUM SERUM 4.6 MEQ/L (3.5-5.1)
--- NOTE | 2020-12-06 05:32 | ECGEPIP ---
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
[2020-12-06] MEDS: HumaLOG INSULIN (NovoLOG) PER UNIT SC SCH ×4 (07:30→20:22)
--- NOTE | 2020-12-06 08:10 | REP ---
INDICATION: right leg swelling and fever in pt w hx of DVT. COMPARISON: Comparison study is from April 23, 2020.. TECHNIQUE: Right {lower extremity duplex venous scanning is performed from the groin to the ankle level. FINDINGS: The deep veins are anechoic and fully compressible from the groin to the popliteal fossa in the right lower extremity. Color flow imaging is homogeneous. Spectral Doppler interrogation demonstrates intact respiratory variation in flow and normal manual augmentation of flow. There is no evidence of deep vein thrombosis above the knee. There is no evidence of DVT in the visualized calf veins. Doppler interrogation of the contralateral common femoral vein shows normal symmetric respiratory phasicity. IMPRESSION: No evidence of DVT in the right lower extremity femoropopliteal veins. No DVT in the visible portions of the calf veins. <Electronically signed by Jeff Chris > 12/06/20 0800
[2020-12-06] MEDS ORDERED: CEFTAROLINE FOSAMIL 300 MG in D5W 50 ML IV SCH (08:20)
--- NOTE | 2020-12-06 08:24 | REP ---
INDICATION: hip pain COMPARISON: 03/10/2017 TECHNIQUE: AP, lateral, coned-down views of the lumbar spine. FINDINGS: Alignment and lordosis is maintained. Chronic stable compression deformity at T12 again noted. Underlying osteopenia and advanced multilevel degenerative changes include endplate sclerosis, disc space narrowing, facet hypertrophy and osteophytosis. Findings most pronounced at the L5-S1 and L4-5 levels. IMPRESSION: 1. No acute fracture / compression injury or subluxation. 2. Progressive advanced multilevel degenerative changes. 3. Stable compression deformity at T12. <Electronically signed by Remy Stanton > 12/06/20 [id number]
--- NOTE | 2020-12-06 08:30 | REP ---
INDICATION: neck pain. COMPARISON: None. TECHNIQUE: Seven views of the cervical spine including flexion extension lateral projections. FINDINGS: On lateral radiograph the cervical spine is visualized to mid C5 but not below. Even the swimmer's lateral view was unable to successfully display the lower cervical segments on the lateral projection. AP and open-mouth odontoid views demonstrate diffuse osteoarthritic facet disease in the mid cervical spine. No there is evidence of degenerative disc disease at C 6 7 and C5-6 based on the frontal view where there is sclerosis of the endplates. The upper cervical segments are normally aligned. No subluxation is seen. There is mild degenerative narrowing at C4-5 disc. The patient is edentulous. IMPRESSION: Incomplete visualization of the lower cervical spine segments on lateral radiographs. Degenerative disc and facet changes as noted above. <Electronically signed by Jeff Chris > 12/06/20 0503
[2020-12-06] MEDS ORDERED: LEVEMIR (INSULIN DETEMIR) 1 UNITS/0.01ML SC SCH (09:00)
[2020-12-06] MEDS: HYDROCORTISONE 1% CREAM 30 GM TOP SCH ×2 (09:00→20:25)
[2020-12-06] MEDS ORDERED: OMEPRAZOLE 20 MG CAP PO SCH (09:00)
[2020-12-06] MEDS ORDERED: CEFTAROLINE FOSAMIL 400 MG in D5W MINI-BAG PLUS 50 ML IV SCH (09:00)
[2020-12-06] MEDS: ASPIRIN 81MG ENTERIC TABLET PO SCH (09:21)
[2020-12-06] MEDS: FLUTICASONE PROP 0.05% NASAL SPRAY 16 GM (FLONASE) SCH (09:21)
[2020-12-06] MEDS: buPROPion **XL** TABLET 150MG (WELLBUTRIN XL) PO SCH (09:21)
[2020-12-06] MEDS: BACLOFEN 10 MG TAB PO SCH ×2 (09:22→20:22)
[2020-12-06] MEDS: VITAMIN D 1,000 INTERNATIONAL UNITS TABLET PO SCH (09:23)
[2020-12-06] MEDS: APIXABAN 5 MG TAB (ELIQUIS) PO SCH ×2 (09:23→20:22)
[2020-12-06] MEDS: LEVEMIR (INSULIN DETEMIR) 1 UNITS/0.01ML SC SCH ×2 (09:23→20:24)
[2020-12-06] MEDS: METOPROLOL SUCC (TopROL XL) 100MG *XL* TAB PO SCH (09:24)
[2020-12-06] MEDS: CEFTAROLINE FOSAMIL 400 MG in D5W MINI-BAG PLUS 50 ML IV SCH ×2 (10:50→22:00)
[2020-12-06] MEDS: oxyCODONE 20 MG CR TAB PO SCH ×2 (11:12→20:22)
[2020-12-06] MEDS ORDERED: diphenhydrAMINE 25MG CAP PO PRN (12:10)
--- NOTE | 2020-12-06 13:45 | CR ---
NEPHROLOGY CONSULTATION DATE: 12/06/2020 CONSULTATION REQUESTED BY: Paula Aguila M.D. REASON FOR CONSULTATION: Acute renal failure superimposed on chronic kidney disease. HISTORY OF PRESENT ILLNESS: Mr. Herrera is a 60-year-old gentleman with multiple chronic medical problems including diabetes, hypertension, peripheral vascular disease, history of prior DVT and pulmonary embolism, history of chronic kidney disease, obstructive sleep apnea and depression. He presented to the Emergency Room with right foot pain and was noticed to have cellulitis. He was admitted last evening and nephrology consultation was requested due to decline in kidney function. Patient is seen in the Emergency Room this morning. PAST MEDICAL HISTORY: Significant for: 1. History of polycythemia vera. 2. History of hypertensive heart disease. 3. History of splenomegaly. 4. History of DVT in right upper extremity and history of pulmonary embolism. 5. History of chronic kidney disease with nephrotic range proteinuria. 6. History of obstructive sleep apnea. 7. Depression. 8. History of peripheral vascular disease with left below the knee amputation. 9. Gout. 10.History of gastroesophageal reflux disease. 11.History of degenerative joint disease and chronic back pain. PAST SURGICAL HISTORY: Also significant for: 1. Tonsillectomy. 2. Ventral hernia repair. 3. Inguinal hernia repair. 4. Knee surgery. 5. Right hallux amputation. 6. He has left below the knee amputation. FAMILY HISTORY: Significant for end stage renal disease, diabetes and hypertension. His mother was on dialysis before she and his brother is also on dialysis. PERSONAL AND SOCIAL HISTORY: Former smoker. Denies any alcohol use. He does use medical marijuana. ALLERGIES: He has allergy to Povidone Iodine and soap. MEDICATIONS: His home medications include: 1. Eliquis 5 mg b.i.d. 2. Aspirin 81 mg daily. 3. Atorvastatin 10 mg daily. 4. Baclofen 10 mg b.i.d. 5. Buspirone XL 150 mg daily. 6. Calcitriol 0.25 mcg three times a week. 7. Vitamin D 1,000 units daily. 8. Levemir Insulin 14 units b.i.d. 9. Lisinopril 30 mg daily. 10.Metoprolol 100 mg daily. 11.Omeprazole 20 mg daily. 12.Oxycodone 20 mg every 12 hours. 13.Torsemide 20 mg daily. REVIEW OF SYSTEMS: Patient denies any fever or chills. He presented to the Emergency Room with worsening right foot pain and also multiple other joint pains. He was found to have cellulitis on right foot. Ears, nose and throat are unremarkable. He denies any headache. Cardiovascular system is significant for history of hypertensive heart disease and congestive heart failure. Respiratory system is significant for obstructive sleep apnea and COPD. He has prior history of smoking. GI system is significant for gastroesophageal reflux disease, but denies any vomiting or diarrhea. system is negative for dysuria or hematuria. He does have stage 3 to stage 4 of chronic kidney disease. Musculoskeletal system is significant for prior left below the knee amputation. Now he has cellulitis on his right foot. He also has prior right big toe amputation. Psychosocial system is significant for depression and anxiety. Hematologic system significant for chronic anticoagulation due to DVT and pulmonary embolus in the past. Neurological system is negative for seizures or stroke. PHYSICAL EXAMINATION: VITALS: Temperature 100.5 degrees now, heart rate 80 per minute, respiratory rate 18 per minute, blood pressure 127/57 mmHg, oxygen saturation 94% on room air. HEENT: Head is atraumatic. Neck supple and JVD difficult to be assessed. LUNGS: Sound clear to auscultation. HEART: Sounds are regular. ABDOMEN: Soft and nontender. Bowel sounds are normal. EXTREMITIES: Without any cyanosis or clubbing. He has prior left below the knee amputation. His right foot has cellulitis and right big toe is surgically absent. NEUROLOGIC: He is at his baseline mentation, without a focal deficit. LABORATORY DATA: WBC 8.1, hemoglobin 10.8, hematocrit 35, platelets 409,000. Sodium 142, potassium 4.6, CO2 22, BUN 40, creatinine 3.16. Last evening potassium was 5.4 and creatinine was 3.41. Total protein 5.0 and albumin 2.1. Urinalysis showed 3+ protein and 1+ glucose. Toxicology was positive for cannabinoids and opiates. PROBLEMS: 1. Acute kidney injury superimposed on chronic kidney disease: Most likely result of acute infection with cellulitis. Kidney function has slightly improved over the last 12 hours since admission. He is not dehydrated and I would recommend not to give him I.V. fluids as he does have some edema on his right foot and leg. Patient is known to have advanced chronic kidney disease at baseline. 2. Hyperkalemia: He had mild hyperkalemia yesterday, which has improved. Probably related to RUPAL inhibitor therapy. He is not taking any potassium supplement. His RUPAL inhibitor has already been stopped, which is appropriate. 3. Hypertension: Blood pressure seems to be controlled on current medications. I agree to stop RUPAL inhibitor permanently due to advanced chronic kidney disease. 4. Anemia: His anemia is stable and does not need any urgent intervention. 5. Cellulitis: He is currently being treated with intravenous antibiotics including Ceftaroline and was also given Vancomycin. I will recommend not to use any nephrotoxic medications if at all possible. Those will need to be adjusted for a GFR of 25 mL at best. All nonsteroidals should be avoided. Thank you for involving me in the care of Mr. Herrera. Nephrology service will follow him along with you. TANNER
[2020-12-06 13:50] VITALS: BP 139/66
[2020-12-06 16:00] VITALS: BP 124/67
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
[2020-12-06 17:30] VITALS: BP 162/58
[2020-12-06 20:00] VITALS: BP 147/85
[2020-12-06] MEDS: ATORVASTATIN 10 MG TAB PO SCH (20:22)
--- NOTE | 2020-12-06 21:08 | REPVR ---
PROCEDURE INFORMATION: Exam: MR Right Lower Extremity Other Than Joint Without Contrast; Foot Exam date and time: 12/06/2020 7:43 PM Age: 60 years old Clinical indication: Condition or disease; Patient HX: Ulcer @base of toes; Additional info: Foot infection eval for abscess TECHNIQUE: Imaging protocol: MR of the Right lower extremity without contrast. Exam focused on the foot. COMPARISON: MRI FOOT WITHOUT CONTRAST 07/15/2017 8:43 PM FINDINGS: Bones and cartilage: There has been amputation of the 1st toe. There is edema present within the head of the 2nd metatarsal and within the 2nd proximal phalanx and to lesser extent mid phalanx on the STIR images. On T1 weighted images there is edema within the base of the 2nd proximal phalanx. No edema seen on T1 weighted images within the middle phalanx. Within the head of the 2nd metatarsal there is only minimal edema on T1. Joint spaces: There is fluid in the 2nd MTP joint. There are is joint space narrowing at multiple levels with small marginal osteophytes consistent arthritis. This is seen at interphalangeal, tarsal metatarsal and intertarsal joints Soft tissues: There is edema in the forefoot. There is a focal fluid collection measuring up to 11 mm in the interspace between the 2nd and 3rd digits dorsally as seen on series 901, image 10. Plantar fascia: There is a large plantar calcaneal spur at the plantar fascia insertion. IMPRESSION: 1. There is fluid in the 2nd MTP joint with a fluid collection measuring 11 mm in the interspace between the 2nd and 3rd digits consist with an abscess. 2. Bone marrow edema in the 2nd digit on STIR images. Includes mild edema in the 2nd metatarsal head, proximal and middle phalanx. This may be seen secondary to hyperemia and reactive osteitis. On T1 weighted images edema is seen most extensively within the base of the 2nd proximal phalanx consistent with osteomyelitis . Electronically signed by: Josh Fowler On 12/06/2020 21:08:00 PM
[2020-12-07 06:00] VITALS: BP 151/83
[2020-12-07 06:07] LABS: HEMATOCRIT 33.8 % (42.0-52.0); HEMOGLOBIN 10.5 g/dl (13.5-17.5); MEAN CORPUSCULAR HEMOGLOBIN 28.7 pg (27.0-33.0); MEAN CORPUSCULAR HGB CONC 31.1 g/dl (32.0-36.5); MEAN CORPUSCULAR VOLUME 92.3 fl (80.0-96.0); PLATELET COUNT, AUTOMATED 466 10^3/uL (150-450); RED BLOOD COUNT 3.66 10^6/uL (4.30-6.10); WHITE BLOOD COUNT 10.7 10^3/uL (4.0-10.0)
[2020-12-07 06:33] LABS: CREATININE FOR GFR 2.81 MG/DL (0.70-1.30); GLOMERULAR FILTRATION RATE 24.6 (>49); POTASSIUM SERUM 4.5 MEQ/L (3.5-5.1)
[2020-12-07] MEDS: HumaLOG INSULIN (NovoLOG) PER UNIT SC SCH ×4 (07:30→20:25)
[2020-12-07] MEDS: oxyCODONE 20 MG CR TAB PO SCH ×2 (09:16→20:18)
[2020-12-07] MEDS: VITAMIN D 1,000 INTERNATIONAL UNITS TABLET PO SCH (09:16)
[2020-12-07] MEDS: buPROPion **XL** TABLET 150MG (WELLBUTRIN XL) PO SCH (09:17)
[2020-12-07] MEDS: CALCITRIOL 0.25 MCG CAP (S0169) PO SCH (09:17)
[2020-12-07] MEDS: BACLOFEN 10 MG TAB PO SCH ×2 (09:17→20:16)
[2020-12-07] MEDS: CEFTAROLINE FOSAMIL 400 MG in D5W MINI-BAG PLUS 50 ML IV SCH ×2 (09:22→21:20)
[2020-12-07] MEDS: METOPROLOL SUCC (TopROL XL) 100MG *XL* TAB PO SCH (09:22)
[2020-12-07] MEDS: HYDROCORTISONE 1% CREAM 30 GM TOP SCH ×2 (09:23→21:20)
[2020-12-07] MEDS: FLUTICASONE PROP 0.05% NASAL SPRAY 16 GM (FLONASE) SCH (09:23)
--- NOTE | 2020-12-07 11:48 | CR ---
CONSULTATION DATE: 12/06/2020 REASON FOR CONSULTATION: Right foot Infection. Jovanny Herrera is a patient well known to me who presented to the emergency room with right foot redness as well as diarrhea. He has history of chronic foot infections. He ended up with left below knee amputation due to chronic osteomyelitis. He believes this infection has been present about three or four days. He was scheduled to see me for the first time in quite a while one or two weeks ago but he did not show up for his appointment. PAST MEDICAL HISTORY: 1. Diabetes. 2. Neuropathy. 3. History of gout. 4. GERD. 5. Chronic back and neck pain. 6. Polycythemia vera. 7. Hypertension. 8. Splenomegaly. 9. History of DVT and pulmonary embolism. 10. Chronic kidney disease stage 4. 11. Obstructive sleep apnea. 12. Depression. PAST SURGICAL HISTORY: 1. Left below-knee amputation. 2. Right hallux amputation. 3. Right knee surgery. 4. Inguinal hernia repair. 5. Ventral hernia repair with mesh placement. 6. Tonsillectomy. SOCIAL HISTORY: Former smoker, denies alcohol use, positive for THC. FAMILY HISTORY: Includes diabetes mellitus, coronary artery disease. ALLERGIES: POVIDONE-IODINE. REVIEW OF SYSTEMS: Positive for fevers and chills. Vitals are reviewed. T-max 102.3 in the hospital, presently 96.7. LABS: White blood cell count is 9.7 on admission, 8.1 today. ESR on admission is 69, CRP 8.02. Blood cultures are all pending. A foot x-ray was performed which shows no obvious osteomyelitis. There is some soft tissue emphysema in the medial foot in the subcutaneous body and the hindfoot. Lower extremity examination: There is erythema and edema mostly extending from the right forefoot and second toes. On the planar foot, there is a superficial ulcer near the second and third metatarsal head. There is no purulent drainage. Under the first metatarsal head, there is a tiny rock under which there is a small ulceration that does penetrate approximately 1 cm. No purulent drainage was able to be expressed. ASSESSMENT: This is a patient with diabetes, cellulitis, right foot. PLAN: We will order MRI to evaluate if there is any abscess or other deep space infection necessitating surgical intervention. No drainage was able to be found to culture. He does have history of MRSA. [facility]
[2020-12-07] MEDS ORDERED: BUPIVACAINE HCL 0.5% 30 ML VIAL As Ordered ONE (11:56)
[2020-12-07] MEDS ORDERED: LIDOCAINE 1% SDV 30ML VIAL As Ordered ONE (11:56)
--- NOTE | 2020-12-07 12:07 | IPN ---
PROGRESS NOTE DATE: 12/07/2020 SUBJECTIVE: Mr. Herrera is seen on his bedside this morning. He is very anxious and restless at present as he is worried about the loss of his right foot. He has previously left below the knee amputation. He was noticed to have a foreign body in his foot on his recent x-ray done on the day of admission. The patient was informed by the Hospitalist this morning that he might need a procedure for the 3 mm subcutaneous foreign body in his foot and he got worried about the loss of his foot. He has no dyspnea, chest pain, fever or chills. The patient did have an MRI of his foot which did show some fluid collection between his second and third digits which is 11 mm in size. There was also evidence for possible osteomyelitis within the second proximal phalanx. OBJECTIVE: VITAL SIGNS: Temperature is 97.5 degrees Fahrenheit, heart rate is 80 per minute and respiratory rate 18 per minute. Blood pressure is 151/83 mmHg and oxygen saturation 93% on room air. HEENT: His head is atraumatic. NECK: Supple and without JVD or thyroid enlargement. HEART: Heart sounds are regular. LUNGS: Clear to auscultation. ABDOMEN: Soft and nontender. EXTREMITIES: Without any cyanosis or clubbing. He has left below the knee amputation. Right foot erythema is slightly better, however he has still has some edema on his right foot and ankle. NEUROLOGIC: He is without a focal deficit. He is very anxious at present. LABORATORY DATA: Today's labs showed a WBC count of 10.7, hemoglobin 10.5 and hematocrit 33.8, platelets are 466,000. Sodium is 141, potassium is 4.5, CO2 is 24, BUN 40 and creatinine is 2.8. Glucose is 97 and calcium is 9.0. PROBLEMS: 1. Acute kidney injury superimposed on chronic kidney disease. Patient has a known history of Stage IV chronic kidney disease at baseline. Acute kidney injury most likely related to right foot cellulitis and osteomyelitis. Kidney function is already improving and he has no uremic symptoms. 2. Anemia, at present his anemia is mild and stable and he does not need any urgent intervention. 3. Right foot osteomyelitis and cellulitis. Patient is afebrile at present and has been on Ceftaroline. He also received a dose of Vancomycin. I have explained to him about the extent of infection and the foreign body that possibly will need to be drained and removed. At this point, he is hemodynamically stable and can probably go to the OR for drainage of abscess and removal of foreign body.
[2020-12-07] MEDS ORDERED: MIDAZOLAM INJ 2MG/2ML VIAL (J2250 PER 1MG) As Ordered ONE (12:21)
[2020-12-07] MEDS ORDERED: propofoL 200 MG/20 ML VIAL As Ordered ONE (12:21)
[2020-12-07] MEDS ORDERED: ETOMIDATE INJ 20MG/10ML VIAL As Ordered ONE (12:21)
[2020-12-07] MEDS ORDERED: fentaNYL 100 MCG/2 ML INJECTION (J3010) As Ordered ONE (12:21)
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
[2020-12-07] MEDS ORDERED: NS 1,000 ML IV SCH (13:10)
[2020-12-07] MEDS ORDERED: ONDANSETRON 4MG/2ML VIAL IV PRN ×2 (13:10→21:25)
[2020-12-07] MEDS ORDERED: fentaNYL 100 MCG/2 ML INJECTION (J3010) IV PRN (13:10)
[2020-12-07 13:20] VITALS: BP 153/80
[2020-12-07 13:50] VITALS: BP 182/97
[2020-12-07] MEDS ORDERED: LIDOCAINE 1% MDV 20ML VIAL As Ordered ONE (14:52)
--- NOTE | 2020-12-07 17:21 | REP ---
INDICATION: poor access with need for IV ABX. COMPARISON: None. TECHNIQUE: The procedure was performed under the direct supervision of Dr. Chris. The risks and benefits of the procedure were explained to the patient and informed consent was obtained. The left basilic vein was localized using ultrasound guidance. The skin was prepped and draped in a sterile fashion. 1 mL of 1% lidocaine was used as a local anesthetic. Using ultrasound guidance the basilic vein was cannulated and a 0.018 guidewire was inserted and advanced to the SVC using fluoroscopic guidance, and last image hold technology. The needle was removed and a 5 Yoruba dilator and peel-away sheath was inserted over the guide wire. A 5 Yoruba dual lumen catheter was cut to length of 52 cm. The dilator was removed and the catheter was inserted over the guide wire with the tip ending in the SVC. The peel-away sheath was removed and the catheter was flushed with heparinized saline as per Hospital protocol. The catheter was affixed to the skin and a sterile dressing was applied. Estimated blood loss: Less than 1 cc The patient tolerated the procedure well and there were no immediate complications. 0.2 minutes of fluoro time was utilized for this procedure. FINDINGS: None IMPRESSION: PICC line insertion left basilic vein with the tip ending in the SVC. <Electronically signed by Eliecer Schmidt > 12/07/20 [id number] <Electronically signed by Jeff Chris > 12/07/20 [id number]
[2020-12-07] MEDS: SODIUM CHLORIDE 0.9% INJ 10 ML SYR IV SCH (18:00)
[2020-12-07] MEDS: ATORVASTATIN 10 MG TAB PO SCH (20:16)
[2020-12-07] MEDS: LEVEMIR (INSULIN DETEMIR) 1 UNITS/0.01ML SC SCH (20:25)
[2020-12-07] MEDS: oxyCODONE 5MG TAB PO PRN (21:56)
[2020-12-07 22:00] VITALS: BP 156/96
[2020-12-08] MEDS: oxyCODONE 5MG TAB PO PRN ×3 (02:01→21:40)
[2020-12-08 06:00] VITALS: BP 149/78
[2020-12-08] MEDS: SODIUM CHLORIDE 0.9% INJ 10 ML SYR IV SCH ×2 (06:11→18:06)
[2020-12-08] MEDS: HumaLOG INSULIN (NovoLOG) PER UNIT SC SCH ×4 (07:30→21:00)
[2020-12-08] MEDS: HYDROCORTISONE 1% CREAM 30 GM TOP SCH ×2 (09:00→21:41)
[2020-12-08] MEDS: oxyCODONE 20 MG CR TAB PO SCH ×2 (09:00→21:00)
[2020-12-08] MEDS: FLUTICASONE PROP 0.05% NASAL SPRAY 16 GM (FLONASE) SCH (09:00)
[2020-12-08] MEDS: ASPIRIN 81MG ENTERIC TABLET PO SCH (09:54)
[2020-12-08] MEDS: buPROPion **XL** TABLET 150MG (WELLBUTRIN XL) PO SCH (09:54)
[2020-12-08] MEDS: METOPROLOL SUCC (TopROL XL) 100MG *XL* TAB PO SCH (09:55)
[2020-12-08] MEDS: VITAMIN D 1,000 INTERNATIONAL UNITS TABLET PO SCH (09:55)
[2020-12-08] MEDS: APIXABAN 5 MG TAB (ELIQUIS) PO SCH ×2 (09:55→21:41)
[2020-12-08] MEDS: BACLOFEN 10 MG TAB PO SCH ×2 (09:55→21:41)
[2020-12-08] MEDS: CEFTAROLINE FOSAMIL 400 MG in D5W MINI-BAG PLUS 50 ML IV SCH ×2 (09:56→21:42)
[2020-12-08] MEDS: GABAPENTIN 100 MG CAP PO SCH ×2 (10:22→21:40)
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
[2020-12-08] MEDS: SODIUM CHLORIDE 0.9% INJ 10 ML SYR IV PRN (11:43)
[2020-12-08 14:00] VITALS: BP 111/54
--- NOTE | 2020-12-08 14:40 | IPN ---
NEPHROLOGY PROGRESS NOTE DATE: 12/08/2020 SUBJECTIVE: Patient was seen and examined at the bedside today morning. He is afebrile, hemodynamically stable. He got right foot debridement done by podiatry yesterday. Denies any active complaints at this time. OBJECTIVE: VITAL SIGNS: Temperature 98.1 degrees Fahrenheit, blood pressure 112/59, pulse 62, respiratory rate 16, saturating 96% on room air. INTAKE AND OUTPUT: Urine output recorded was 750 mL yesterday. Weight in the bed scale is 113.8 kg. PHYSICAL EXAMINATION: GENERAL: Patient is awake, alert, oriented times three, laying in bed, no apparent distress. HEAD AND NECK EXAM: Extraocular muscles intact. Pupils equally round and reactive to light. Mucous membranes are moist. Neck is supple. There is no jugular venous distention (JVD). CARDIOVASCULAR: S1, S2. Regular rate. No significant edema of the bilateral lower extremities. RESPIRATORY: Chest is clear to auscultation bilaterally. Bilateral equal air entry. No rales or rhonchi. ABDOMEN: Soft. Obese. Positive bowel sounds. Nontender. No organomegaly MUSCULOSKELETAL: Patient has a dressing on the right foot and he has a left below-knee amputation. No significant edema of the extremities. CENTRAL NERVOUS SYSTEM (OPHTHALMIC MEDICAL TECHNOLOGIST): No focal deficit. Power is 5/5 in all extremities. LABORATORY STUDIES: CBC is from yesterday with a hemoglobin of 10.5. BMP is from yesterday as well with a creatinine of 2.8. CURRENT INPATIENT MEDICATIONS: Patient's medications were all reviewed by myself. He is currently not on any diuretics and he is getting intravenous (IV) ceftaroline for right foot infection. ASSESSMENT AND PLAN: 1. Osteomyelitis of the right foot. Patient is getting IV antibiotics. He got a debridement of the foot done by podiatry. The rest of the management is as podiatry service. 2. Chronic kidney disease stage IV. Patient's creatinine is improving. He was taking diuretics at home. He does not have any edema. Hold the diuretics at this time. 3. Anemia in chronic kidney disease. His hemoglobin is 10.5, which is optimal at this time. No need of Aranesp administration. 4. Secondary hyperparathyroidism. Continue current dose of calcitriol. 5. Hypertension. Blood pressure is controlled. Continue current dose of metoprolol.
[2020-12-08] MEDS: ATORVASTATIN 10 MG TAB PO SCH (21:41)
[2020-12-08] MEDS: LEVEMIR (INSULIN DETEMIR) 1 UNITS/0.01ML SC SCH (21:42)
[2020-12-08 22:00] VITALS: BP 131/61
[2020-12-09 06:00] VITALS: BP 140/66
[2020-12-09] MEDS: SODIUM CHLORIDE 0.9% INJ 10 ML SYR IV SCH ×2 (06:07→18:45)
--- NOTE | 2020-12-09 06:56 | RO ---
OPERATIVE NOTE DATE OF OPERATION: 12/07/2020 PREOPERATIVE DIAGNOSIS: Right foot infection. POSTOPERATIVE DIAGNOSIS: Right foot infection. PROCEDURE: Right foot incision and drainage. SURGEON: Manish Izaguirre DPM GAUNTLET PAIRER: None ANESTHESIA: Monitored anesthesia care, preop injection of 19 mL of a 1:1 mixture of 1% lidocaine plain, 1/2% Marcaine plain. ESTIMATED BLOOD LOSS: 20 mL MATERIALS: 3-0 nylon. INJECTABLES: None. SPECIMENS: None. COMPLICATION: None. CONDITION: Stable. INDICATIONS: Jovanny Herrera is a 60-year-old diabetic male who was admitted with right foot infection. He had erythema and edema with elevated ESR and CRP. He had fevers on admission. There were x-ray findings suggestive of soft tissue emphysema and there were MRI findings which suggested an abscess between the second and third metatarsal heads. The decision was made to bring him to the operating room for incision and drainage. The patient's side and site were identified and marked in the preoperative area. Consent was reviewed and obtained. The risks, complications and alternatives to the procedure were explained to the patient in detail and all questions were answered. DESCRIPTION OF PROCEDURE: The patient was brought to the operating room on stretcher in supine position. Monitored anesthesia care was delivered by the anesthesia team. A preop injection of 19 of a 1:1 mixture of 1% lidocaine plain, 1/2% Marcaine plain were injected in the right foot. The right foot was prepped and draped in normal sterile fashion. A tourniquet was applied to the right ankle and inflated at 225 mmHg. A dorsal incision was drawn and carried through to the second dorsal interspace. There was no purulent or necrotic tissue noted. An incision was made at the plantar wound and again no purulence was noted. The hemostat was used to probe the area to see if there were any loculated fluid pockets and no abscess or nonviable tissue was noted. After expressing and satisfactory examination revealing no infectious material, the site was irrigated with normal saline and incision was repaired with 3-0 nylon and sterile dressings were applied. The patient was brought to PACU with vital signs stable, neurovascular status intact. He will be readmitted to the floor for continued antibiotics.
[2020-12-09] MEDS: HumaLOG INSULIN (NovoLOG) PER UNIT SC SCH ×4 (07:30→21:00)
[2020-12-09] MEDS: oxyCODONE 5MG TAB PO PRN ×3 (08:47→21:18)
[2020-12-09] MEDS: ASPIRIN 81MG ENTERIC TABLET PO SCH (08:47)
[2020-12-09] MEDS: APIXABAN 5 MG TAB (ELIQUIS) PO SCH ×2 (08:47→21:19)
[2020-12-09] MEDS: GABAPENTIN 100 MG CAP PO SCH ×2 (08:47→21:19)
[2020-12-09] MEDS: VITAMIN D 1,000 INTERNATIONAL UNITS TABLET PO SCH (08:47)
[2020-12-09] MEDS: buPROPion **XL** TABLET 150MG (WELLBUTRIN XL) PO SCH (08:47)
[2020-12-09] MEDS: BACLOFEN 10 MG TAB PO SCH ×2 (08:47→21:19)
[2020-12-09] MEDS: CEFTAROLINE FOSAMIL 400 MG in D5W MINI-BAG PLUS 50 ML IV SCH ×2 (08:48→21:17)
[2020-12-09] MEDS: FLUTICASONE PROP 0.05% NASAL SPRAY 16 GM (FLONASE) SCH (08:48)
[2020-12-09] MEDS: oxyCODONE 20 MG CR TAB PO SCH ×2 (08:48→21:00)
[2020-12-09] MEDS: HYDROCORTISONE 1% CREAM 30 GM TOP SCH ×2 (08:48→21:20)
[2020-12-09] MEDS: METOPROLOL SUCC (TopROL XL) 100MG *XL* TAB PO SCH (08:49)
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
[2020-12-09 14:00] VITALS: BP 137/61
--- NOTE | 2020-12-09 15:38 | IPN ---
NEPHROLOGY PROGRESS NOTE DATE: 12/09/2020 SUBJECTIVE: Patient was seen and examined at the bedside today morning. He is afebrile, hemodynamically stable. He denies any active complaint. OBJECTIVE: VITAL SIGNS: Temperature 97.8 degrees Fahrenheit, blood pressure 137/61, pulse 58, respiratory rate 18, saturating 98% on room air. INTAKE AND OUTPUT: Urine output recorded as 1175 mL. Weight in the bed scale is 113.7 kg. PHYSICAL EXAMINATION: GENERAL: Patient is awake, alert, oriented times three, obese body habitus, sitting up in the wheelchair. HEAD AND NECK EXAM: Extraocular muscles intact. Pupils equally round and reactive to light. Mucous membranes are moist. Neck is supple. There is no jugular venous distention (JVD). CARDIOVASCULAR: S1, S2. Regular rate. Trace edema of the right ankle. RESPIRATORY: Chest is clear to auscultation bilaterally. Bilateral equal air entry. No rales or rhonchi. ABDOMEN: Soft. Positive bowel sounds. Nontender. No organomegaly MUSCULOSKELETAL: He has a left below-knee amputation and right foot has a dressing. CENTRAL NERVOUS SYSTEM (MEDART OPERATOR): No focal deficit. Power is 5/5 in all extremities. LABORATORY STUDIES: CBC is from December 07, 2020 and BMP is also from December 07, 2020. There is no new lab work available. CURRENT INPATIENT MEDICATIONS: Patient's medications were all reviewed by myself. He continues to be on intravenous (IV) ceftaroline. No other significant change in the medications today as compared with yesterday. ASSESSMENT AND PLAN: 1. Chronic kidney disease stage IV. Patient's latest BMP is from two days ago and that showed his renal function was stable. Repeat labs have been ordered and they are not back yet. Currently, he is not on any diuretics. 2. Osteomyelitis of the right foot status post debridement. Patient is currently on IV antibiotics. The rest of the management is as per podiatry services. 3. Hypertension. Continue current dose of metoprolol. Volume status is optimal. Currently, he is not on any diuretics. 4. Anemia in chronic kidney disease. Hemoglobin level is optimal as per latest labs. CBC will be checked tomorrow morning. 5. Diabetes mellitus type 2, insulin dependent, with diabetic neuropathy. Continue insulin Levemir and sliding scale. He is not a candidate for metformin or angiotensin converting enzyme (RUAPL) inhibitors at this time.
[2020-12-09] MEDS: LEVEMIR (INSULIN DETEMIR) 1 UNITS/0.01ML SC SCH (21:19)
[2020-12-09] MEDS: ATORVASTATIN 10 MG TAB PO SCH (21:19)
[2020-12-09 22:00] VITALS: BP 118/51
[2020-12-10] MEDS: oxyCODONE 5MG TAB PO PRN ×3 (05:54→19:07)
[2020-12-10] MEDS: SODIUM CHLORIDE 0.9% INJ 10 ML SYR IV SCH ×2 (05:55→20:12)
[2020-12-10 05:57] LABS: BASO # 0.1 10^3/uL (0.0-0.2); BASO % 0.9 % (0.0-1.0); EOS # 0.5 10^3/uL (0.0-0.5); EOS % 6.3 % (0.0-3.0); HEMATOCRIT 33.7 % (42.0-52.0); HEMOGLOBIN 10.2 g/dl (13.5-17.5); LYMPH # 1.2 10^3/uL (1.5-5.0); LYMPH % 13.7 % (24.0-44.0); MEAN CORPUSCULAR HEMOGLOBIN 28.4 pg (27.0-33.0); MEAN CORPUSCULAR HGB CONC 30.3 g/dl (32.0-36.5); MEAN CORPUSCULAR VOLUME 93.9 fl (80.0-96.0); MONO # 0.5 10^3/uL (0.0-0.8); MONO % 5.5 % (2.0-8.0); NEUTROPHILS # 6.1 10^3/uL (1.5-8.5); NEUTROPHILS % 70.3 % (36.0-66.0); PLATELET COUNT, AUTOMATED 478 10^3/uL (150-450); RED BLOOD COUNT 3.59 10^6/uL (4.30-6.10); WHITE BLOOD COUNT 8.6 10^3/uL (4.0-10.0)
[2020-12-10 06:00] VITALS: BP_SYST 140; BP_SYST 179; BP_DIAS 60; BP_DIAS 84
[2020-12-10 06:27] LABS: CREATININE FOR GFR 2.47 MG/DL (0.70-1.30); GLOMERULAR FILTRATION RATE 28.6 (>49); POTASSIUM SERUM 4.7 MEQ/L (3.5-5.1)
[2020-12-10] MEDS: oxyCODONE 20 MG CR TAB PO SCH ×2 (07:54→20:13)
[2020-12-10] MEDS: GABAPENTIN 100 MG CAP PO SCH ×2 (08:32→20:13)
[2020-12-10] MEDS: METOPROLOL SUCC (TopROL XL) 100MG *XL* TAB PO SCH (08:33)
[2020-12-10] MEDS: buPROPion **XL** TABLET 150MG (WELLBUTRIN XL) PO SCH (08:33)
[2020-12-10] MEDS: BACLOFEN 10 MG TAB PO SCH ×2 (08:33→20:13)
[2020-12-10] MEDS: ASPIRIN 81MG ENTERIC TABLET PO SCH (08:33)
[2020-12-10] MEDS: HumaLOG INSULIN (NovoLOG) PER UNIT SC SCH ×4 (08:34→20:13)
[2020-12-10] MEDS: CALCITRIOL 0.25 MCG CAP (S0169) PO SCH (08:34)
[2020-12-10] MEDS: APIXABAN 5 MG TAB (ELIQUIS) PO SCH ×2 (08:34→20:13)
[2020-12-10] MEDS: VITAMIN D 1,000 INTERNATIONAL UNITS TABLET PO SCH (08:35)
[2020-12-10] MEDS: HYDROCORTISONE 1% CREAM 30 GM TOP SCH ×2 (08:35→21:49)
[2020-12-10] MEDS: FLUTICASONE PROP 0.05% NASAL SPRAY 16 GM (FLONASE) SCH (08:35)
[2020-12-10] MEDS: CEFTAROLINE FOSAMIL 400 MG in D5W MINI-BAG PLUS 50 ML IV SCH (10:22)
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
--- NOTE | 2020-12-10 12:21 | IPN ---
PROGRESS NOTE DATE: 12/10/2020 SUBJECTIVE: The patient was seen and examined at the bedside today morning. He reports that the right foot pain and swelling is getting better. His renal function is also improving. He denies any active complaints at this time. OBJECTIVE: VITAL SIGNS: Temperature is 98.3 degrees Fahrenheit, blood pressure is 140/60, pulse is 58, respiratory rate is 18, saturating 97% on room air. INTAKE AND OUTPUT: Urine output recorded as 1.4 liters yesterday, 400 ml so far today since overnight, weight on the bed scale is 113.5 kg which his stable since yesterday. GENERAL: Patient is awake, alert and oriented x3, laying in bed, in no apparent distress. HEAD AND NECK: Extraocular muscles are intact. Pupils are equally round and reactive to light. Mucous membranes are moist. NECK: Supple. There is no JVD. CARDIOVASCULAR: S1 and S2, regular rate. No edema of the bilateral lower extremities. RESPIRATORY: Chest is clear to auscultation bilaterally. Bilateral equal air entry. No rales or rhonchi. ABDOMEN: Soft, obese, positive bowel sounds, nontender. No organomegaly. MUSCULOSKELETAL: Left below the knee amputation and right foot is covered with a dressing. COOKER MECHANIC: No focal deficit. Power is 5/5 in all extremities. LABORATORY DATA: CBC showed a WBC of 8.6, hemoglobin 10.2, platelets are 478,000. BMP showed sodium of 144, potassium 4.7, chloride 113, bicarbonate 28, BUN 29, creatinine is 2.4, it was 2.8 three days ago. CURRENT INPATIENT ADMISSIONS: Patient's medications were all reviewed by myself. No significant change in the medications today as compared with yesterday. ASSESSMENT AND PLAN: 1. Acute renal failure superimposed on chronic kidney disease Stage IV, patient's renal function is stable and improving back to his baseline. Currently, all the diuretics are on hold. 2. Osteomyelitis of the right foot status post debridement. Patient is on IV Ceftaroline, management is as per podiatry. 3. Hypertension. Blood pressure is controlled with metoprolol. 4. Anemia and chronic kidney disease. Latest CBC is 10.2 which is within the acceptable range at this time.
[2020-12-10 14:00] VITALS: BP 137/55
[2020-12-10] MEDS: ceFAZolin SOD 2 GM in IV 1 EA IV SCH (19:03)
[2020-12-10 20:00] VITALS: BP 152/84
[2020-12-10] MEDS: ATORVASTATIN 10 MG TAB PO SCH (20:13)
[2020-12-10] MEDS: LEVEMIR (INSULIN DETEMIR) 1 UNITS/0.01ML SC SCH (21:49)
[2020-12-11] MEDS: oxyCODONE 5MG TAB PO PRN ×3 (05:46→20:02)
[2020-12-11] MEDS: SODIUM CHLORIDE 0.9% INJ 10 ML SYR IV SCH ×2 (05:48→20:02)
[2020-12-11 06:00] VITALS: BP 136/74
[2020-12-11 06:08] LABS: BASO # 0.1 10^3/uL (0.0-0.2); BASO % 1.2 % (0.0-1.0); EOS # 0.6 10^3/uL (0.0-0.5); EOS % 5.8 % (0.0-3.0); HEMATOCRIT 34.4 % (42.0-52.0); HEMOGLOBIN 10.3 g/dl (13.5-17.5); LYMPH # 1.1 10^3/uL (1.5-5.0); LYMPH % 10.7 % (24.0-44.0); MEAN CORPUSCULAR HEMOGLOBIN 28.2 pg (27.0-33.0); MEAN CORPUSCULAR HGB CONC 29.9 g/dl (32.0-36.5); MEAN CORPUSCULAR VOLUME 94.2 fl (80.0-96.0); MONO # 0.5 10^3/uL (0.0-0.8); MONO % 4.7 % (2.0-8.0); NEUTROPHILS # 7.3 10^3/uL (1.5-8.5); NEUTROPHILS % 74.1 % (36.0-66.0); PLATELET COUNT, AUTOMATED 536 10^3/uL (150-450); RED BLOOD COUNT 3.65 10^6/uL (4.30-6.10); WHITE BLOOD COUNT 9.9 10^3/uL (4.0-10.0)
[2020-12-11] MEDS: ceFAZolin SOD 2 GM in IV 1 EA IV SCH ×2 (06:34→19:01)
[2020-12-11 06:36] LABS: C REACTIVE PROTEIN QUANTITATIV 2.06 MG/DL (0.00-0.30); CALCIUM LEVEL 9.1 MG/DL (8.8-10.2); CREATININE FOR GFR 2.32 MG/DL (0.70-1.30); GLOMERULAR FILTRATION RATE 30.7 (>49); POTASSIUM SERUM 4.7 MEQ/L (3.5-5.1)
[2020-12-11] MEDS: ASPIRIN 81MG ENTERIC TABLET PO SCH (08:57)
[2020-12-11] MEDS: HumaLOG INSULIN (NovoLOG) PER UNIT SC SCH ×4 (08:57→20:34)
[2020-12-11] MEDS: APIXABAN 5 MG TAB (ELIQUIS) PO SCH ×2 (08:58→20:40)
[2020-12-11] MEDS: VITAMIN D 1,000 INTERNATIONAL UNITS TABLET PO SCH (08:58)
[2020-12-11] MEDS: GABAPENTIN 100 MG CAP PO SCH ×2 (08:58→20:40)
[2020-12-11] MEDS: BACLOFEN 10 MG TAB PO SCH ×2 (08:58→20:40)
[2020-12-11] MEDS: buPROPion **XL** TABLET 150MG (WELLBUTRIN XL) PO SCH (08:58)
[2020-12-11] MEDS: METOPROLOL SUCC (TopROL XL) 100MG *XL* TAB PO SCH (09:00)
[2020-12-11] MEDS: oxyCODONE 20 MG CR TAB PO SCH ×2 (09:00→20:40)
[2020-12-11] MEDS: HYDROCORTISONE 1% CREAM 30 GM TOP SCH ×2 (09:01→20:41)
[2020-12-11] MEDS: FLUTICASONE PROP 0.05% NASAL SPRAY 16 GM (FLONASE) SCH (09:01)
--- NOTE | 2020-12-11 09:37 | IPN ---
PROGRESS NOTE DATE: 12/11/2020 SUBJECTIVE: The patient was seen and examined at the bedside today morning. He is afebrile, hemodynamically stable. He reports that his dressing was changed and his wound is getting better. He continues to be on IV antibiotics. Renal function is stable and improving. OBJECTIVE: VITAL SIGNS: Temperature is 98.2 degrees Fahrenheit, blood pressure is 136/74, pulse is 57, respiratory rate is 16, saturating 94% on room air. INTAKE AND OUTPUT: Urine output is recorded as 1.8 liters yesterday, weight on the bed scale is 113.5 kg which is stable. GENERAL: Patient is awake, alert and oriented x3, obese body habitus, laying in bed. HEAD AND NECK: Extraocular muscles are intact. Pupils equally round and reactive to light. Mucous membranes are moist. Neck is supple. There is no JVD. CARDIOVASCULAR: S1 and S2, regular rate. No edema of the bilateral lower extremities. RESPIRATORY: Chest is clear to auscultation bilaterally. Bilateral equal air entry. ABDOMEN: Soft, obese, positive bowel sounds. MUSCULOSKELETAL: He has a dressing on the right fourth and left below knee has amputation. DIAMOND SAWER: No focal deficit. Power is 5/5 in all extremities. LABORATORY DATA: CBC showed a WBC of 9.9, hemoglobin is 10.3, platelets are 536,000. BMP showed a sodium of 143, potassium is 4.7, chloride is 113. Bicarbonate is 26, BUN is 28, creatinine is 2.3, it was 2.4 yesterday. C-reactive protein is 2.6. CURRENT INPATIENT MEDICATIONS: Patient's medications are all reviewed by myself. His IV Ceftaroline was stopped and he has been started on Ancef 2 grams IV q. 12 hourly. No other significant change in the medications. ASSESSMENT AND PLAN: 1. Chronic kidney disease Stage IV. Renal function is stable and actually gradually getting better. Diuretics are on hold. Electrolytes are within the acceptable range. 2. Osteomyelitis of the right foot. Patient was on IV Ceftaroline which has been stopped and he is currently on IV Cefazolin. Management is as per ID recommendations and medical team. 3. Hypertension, blood pressure is controlled with metoprolol. 4. Diabetes mellitus Type 2 with diabetic nephropathy. Patient is currently on insulin Levemir and sliding scale. He is not a candidate for RUPAL inhibitors or Metformin at this time.
--- NOTE | 2020-12-11 09:51 | CR ---
CONSULTATION DATE: 12/10/2020 REASON FOR CONSULTATION: I was asked to consult by hospitalist for evaluation of Staph aureus bacteremia with MSSA. HISTORY OF PRESENT ILLNESS: Jovanny is a 60-year-old gentleman with a history of diabetes with diabetic neuropathy, history of osteomyelitis of the foot and left BKA. The patient had developed right foot pain and redness with fever and chills four days prior to admission. He had no falls. He had some diarrhea but no nausea or vomiting. The patient has been doing better with his diet and lost weight. PAST MEDICAL HISTORY: 1. 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 2. Hypertensive heart disease. 3. Splenomegaly. 4. History of right upper extremity DVT and PE. 5. Chronic kidney disease, stage 3 with nephrotic syndrome and anasarca. 6. Obstructive sleep apnea. 7. Depression. 8. Insulin dependent diabetes with neuropathy. 9. Gout. 10. Gastroesophageal reflux disease. 11. Chronic back pain. 12. DJD. PAST SURGICAL HISTORY: 1. Status post left below knee amputation for unhealing chronic ulcer of the left foot with osteomyelitis from stepping on a metal hayder. 2. Tonsillectomy. 3. Ventral hernia repair with mesh placement. 4. Inguinal hernia repair. 5. Knee surgery. 6. Right hallux amputation. SOCIAL HISTORY: He quit smoking, no alcohol use. He uses medical marijuana. He is not . He lives alone. FAMILY HISTORY: Father of diabetes. Mother of heart disease. ALLERGIES: POVIDONE-IODINE. MEDICATIONS: 1. Gabapentin 200 mg p.o. b.i.d. 2. Ceftaroline 400 mg IV q.12 hours. 3. Zofran 4 mg IV q.6 hours. 4. Levemir 7 units q.h.s. 5. Calcitriol 0.2 mcg p.o. Thursday, Thursday, Thursday. 6. Benadryl 25 mg p.o. q.d. p.r.n. 7. Hydrocortisone to right leg and left hip p.r.n. 8. Oxycodone 20 mg p.o. q.12 hours. 9. Metoprolol 100 mg p.o. daily. 10. Vitamin D 1000 units daily. 11. Bupropion XL 150 mg p.o. daily. 12. Baclofen 10 mg p.o. b.i.d. 13. Aspirin 81 mg p.o. daily. 14. Eliquis 5 mg p.o. b.i.d. 15. Insulin sliding scale. 16. Tylenol p.r.n. 17. Lipitor 10 mg p.o. q.h.s. LABORATORY DATA: Last white count on 12/07 was 10.7, today was 8.6, hemoglobin 10.2, hematocrit 33.7, platelets 478, 70% neutrophils, 13% lymphocytes, 5% monocytes. Sodium 144, potassium 4.7, chloride 113, bicarb 22, BUN 29, creatinine 2.47, glucose 132, calcium 9, magnesium 1.903, 8.02 on admission. Total protein 5, albumin 2.1. Blood cultures on 12/06 was positive for MSSA 05/27. 12/09, two sets of blood cultures are negative. Respiratory panel was negative. Foot MRI on 12/06 shows acute osteomyelitis of the second proximal phalanx. There is edema of the second metatarsal and there is concern of fluid in the second MTP joint with a fluid collection in the interspace between second and third digits. Findings are consistent with cellulitis and osteomyelitis of the second proximal phalanx. PHYSICAL EXAMINATION: General: He is a pleasant gentleman in no acute distress. Vital Signs: Temperature is 9i7.7, pulse 61, respirations 17, blood pressure 137/55, O2 sat 96% on room air. T max was 102.3 on the day of admission and resolved within 24 hours. Heart: Normal S1, S2 with systolic murmur, ejection 2/6 unchanged. Neck: Supple, no JVD, no bruits. Head and ENT: Pupils equal and reactive, anicteric. Mucosa is moist. Abdomen: Markedly obese, soft, mild splenomegaly. Extremities: Left BKA. Right foot big toe amputation. Second toe with deformity, flexion of the tip of the phalanx, erythema and swelling of the whole second toe. There is an incision in the dorsal aspect and the plantar aspect of the foot where an I&D was attempted for the abscess but intraoperatively, there was no abscess. Neurologic: Normal. IMPRESSION: This is a 60-year-old gentleman with chronic kidney disease, diabetes, admitted with osteomyelitis of the right foot, status post I&D. Although no abscess was found, the patient was found to have Staph aureus bacteremia. He is scheduled to be treated with a few more days of IV antibiotics followed by amputation of the second toe. He is currently day #5 of IV antibiotics with ceftaroline. There is no need for MRSA coverage and therefore, the patient will be switched to cefazolin 2 gm IV q.12 hours which will be renally dosed. PLAN: Discontinue IV ceftaroline, switch to cefazolin 2 gm IV q.12 hours, obtain echocardiogram. Agree with amputation of the second toe once infection has improved. Since the patient had just transient bacteremia, fever resolved within 24 hours, endocarditis is very unlikely. Review of his last echocardiogram was June 18, 2020 which showed LVH with ejection fraction of 50-55%, aortic sclerosis. Will obtain followup echocardiogram for Staph aureus bacteremia workup even though my suspicion is critical. Once the patient is ready for discharge after his amputation, I would suggest giving him a followup dose of Dalvance at renally dose x1 dose upon discharge if he is discharged before he finishes his two weeks of IV antibiotics.
--- NOTE | 2020-12-11 11:04 | IPN ---
PROGRESS NOTE DATE: 12/11/2020 SUBJECTIVE: Patient seen at bedside. States he is feeling better. He is concerned about the infection in his foot. States he is not quite ready to go home. LABORATORY DATA: White blood cell count 8.6. Blood cultures grew Staphylococcus aureus. PHYSICAL EXAMINATION: LOWER EXTREMITY EXAMINATION: Erythema and edema is improved, now largely just resides in the second toe. Stitches are intact. No signs of dehiscence. ASSESSMENT: Patient is a 60-year-old diabetic male with cellulitis and Staphylococcus aureus bacteremia. PLAN: Continue intravenous (IV) antibiotics. Infectious disease has been consulted. No present need for further surgery, although did discuss at some point he may require amputation of that second toe. He should follow up with me in the office.
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
[2020-12-11 14:00] VITALS: BP 150/66
[2020-12-11] MEDS: ATORVASTATIN 10 MG TAB PO SCH (20:40)
[2020-12-11] MEDS: LEVEMIR (INSULIN DETEMIR) 1 UNITS/0.01ML SC SCH (20:41)
[2020-12-11 22:00] VITALS: BP 129/70
[2020-12-12] MEDS: oxyCODONE 5MG TAB PO PRN ×3 (00:16→22:02)
[2020-12-12] MEDS: SODIUM CHLORIDE 0.9% INJ 10 ML SYR IV SCH ×2 (05:05→18:08)
[2020-12-12 05:25] LABS: BASO # 0.1 10^3/uL (0.0-0.2); BASO % 1.1 % (0.0-1.0); EOS # 0.5 10^3/uL (0.0-0.5); EOS % 5.3 % (0.0-3.0); HEMATOCRIT 34.2 % (42.0-52.0); HEMOGLOBIN 10.4 g/dl (13.5-17.5); LYMPH # 1.5 10^3/uL (1.5-5.0); LYMPH % 15.1 % (24.0-44.0); MEAN CORPUSCULAR HEMOGLOBIN 28.6 pg (27.0-33.0); MEAN CORPUSCULAR HGB CONC 30.4 g/dl (32.0-36.5); MONO # 0.4 10^3/uL (0.0-0.8); MONO % 4.3 % (2.0-8.0); NEUTROPHILS % 71.9 % (36.0-66.0); PLATELET COUNT, AUTOMATED 594 10^3/uL (150-450); RED BLOOD COUNT 3.64 10^6/uL (4.30-6.10); WHITE BLOOD COUNT 9.7 10^3/uL (4.0-10.0)
[2020-12-12 05:49] LABS: CALCIUM LEVEL 8.8 MG/DL (8.8-10.2); CREATININE FOR GFR 2.23 MG/DL (0.70-1.30); GLOMERULAR FILTRATION RATE 32.2 (>49); POTASSIUM SERUM 4.7 MEQ/L (3.5-5.1)
[2020-12-12 06:00] VITALS: BP 148/71
[2020-12-12] MEDS: ceFAZolin SOD 2 GM in IV 1 EA IV SCH ×2 (06:26→18:08)
[2020-12-12] MEDS: SODIUM CHLORIDE 0.9% INJ 10 ML SYR IV PRN (07:22)
[2020-12-12] MEDS: CALCITRIOL 0.25 MCG CAP (S0169) PO SCH (08:00)
[2020-12-12] MEDS: ASPIRIN 81MG ENTERIC TABLET PO SCH (08:00)
[2020-12-12] MEDS: VITAMIN D 1,000 INTERNATIONAL UNITS TABLET PO SCH (08:01)
[2020-12-12] MEDS: buPROPion **XL** TABLET 150MG (WELLBUTRIN XL) PO SCH (08:01)
[2020-12-12] MEDS: GABAPENTIN 100 MG CAP PO SCH ×2 (08:01→22:01)
[2020-12-12] MEDS: BACLOFEN 10 MG TAB PO SCH ×2 (08:01→22:02)
[2020-12-12] MEDS: APIXABAN 5 MG TAB (ELIQUIS) PO SCH ×2 (08:01→22:01)
[2020-12-12] MEDS: METOPROLOL SUCC (TopROL XL) 100MG *XL* TAB PO SCH (08:01)
[2020-12-12] MEDS: FLUTICASONE PROP 0.05% NASAL SPRAY 16 GM (FLONASE) SCH (08:02)
[2020-12-12] MEDS: HumaLOG INSULIN (NovoLOG) PER UNIT SC SCH ×4 (08:02→21:00)
[2020-12-12] MEDS: HYDROCORTISONE 1% CREAM 30 GM TOP SCH ×2 (08:03→22:02)
[2020-12-12] MEDS: oxyCODONE 20 MG CR TAB PO SCH ×2 (08:11→21:00)
--- NOTE | 2020-12-12 09:42 | ECHO ---
ECHOCARDIOGRAM DATE OF PROCEDURE: 12/11/2020 Age: 60 Gender: Male Height: 196 cm. Weight: 114 kg. REFERRING PHYSICIAN: Madi Ivory M.D. INDICATION: Fever. MEASUREMENTS: 2D Measurements: Aortic root 2.7 cm Proximal ascending aorta 3.2 cm Left atrium 4.9 cm Intraventricular septum 1.61 cm Posterior wall 1.16 cm Left atrial volume index 47 Inferior vena cava 2.6 cm with more than 50% respiratory variation. Doppler Measurements: No aortic stenosis or regurgitation. LVOT velocity 112 cm/sec LVOT VTI 27.2 cm Aortic valve velocity (CW) 472 cm/sec No mitral regurgitation Mitral E velocity 96.4 cm/sec Mitral A velocity 64.7 cm/sec Mitral deceleration time 180 msec No tricuspid regurgitation No pulmonic regurgitation Pulmonary artery acceleration time 135 msec MITRAL ANNULAR TISSUE DOPPLER: E prime septal 8.7 cm/sec E prime lateral 12.5 cm/sec DESCRIPTION: Rhythm was sinus bradycardia. Image quality was fair. There was no pericardial effusion. This was a 2D, M-mode, color flow Doppler and pulsed wave Doppler examination including mitral annular tissue Doppler. CONCLUSIONS: 1. No vegetations observed. 2. Mild hypertrophy of the intraventricular septum. Normal left ventricle internal dimensions. Normal regional left ventricular (LV) wall motion and wall thickening. Normal LV systolic function with left ventricular ejection fraction (LVEF) of 60% by visual estimation. 3. Severe left atrial dilatation by left atrial volume index. 4. Moderate aortic valve sclerosis of the A3-cuspid aortic valve, especially involving the right aortic cusp. No aortic regurgitation or stenosis. 5. Mild mitral annular calcification. No mitral regurgitation. 6. Suggestive of normal pulmonary artery systolic pressure. Suggestive of normal central venous pressure (CVP). MTDD
--- NOTE | 2020-12-12 10:54 | IPN ---
INFECTIOUS DISEASE PROGRESS NOTE DATE: 12/11/2020 SUBJECTIVE: Mr. Herrera is doing well. He has had no new complaints today. I reviewed the note from Dr. Izaguirre, who did not recommend any further surgery during this hospitalization even though he did discuss with Joavnnymadison hopper the need for amputation of that second toe at some time as an outpatient. He is afebrile. No nausea, vomiting or diarrhea. No abdominal pain. VITAL SIGNS: Temperature 96; his last temperature was on 12/06/2020. Pulse 56, respirations 18, blood pressure 150/66, O2 sat 93% on room air. LABS: White count 9.9, hemoglobin 10.3, hematocrit 34.4, platelets 536,000. 74% neutrophils, 10% lymphocytes, 4% monocytes. Sodium 143, potassium 4.7, chloride 113, bicarb 26, BUN 28, creatinine 2.32, glucose 144, calcium 9.1. CRP 2.06 down from 8.02. Blood culture one out of three sets on 12/06/2020 was positive for MSSA and 12/09/2020 were negative. IMPRESSION: 1. Cellulitis of the right foot with evidence of osteomyelitis of the second toe with a small diabetic ulceration: Patient has Staph Aureus bacteremia, which was transient one out of three positive blood cultures. He has improved clinically. Fever has resolved. He is currently doing well on Cefazolin 2 grams I.V. every 12 hours. Patient was hoping to have an amputation of the second toe prior to discharge, but this may not seem to be planned for on this admission. 2. Acute kidney injury on chronic kidney disease: Improving. 3. Diabetes with neuropathy and nephropathy. PLAN: From an infectious disease standpoint, if echocardiogram is negative, the patient could be discharged home with one dose of I.V. Dalvance 1.5 grams, that should cover his I.V. treatment for Staph Aureus upon discharge and he would not require any oral antibiotics. This could be arranged on the day of discharge or the day after discharge through the infusion unit. In the meantime, while he is in the hospital, continue with Cefazolin 2 grams I.V. every 12 hours.
--- NOTE | 2020-12-12 12:34 | IPN ---
NEPHROLOGY PROGRESS NOTE DATE: 12/12/2020 SUBJECTIVE: Patient was seen and examined at the bedside today morning. He is afebrile, hemodynamically stable. He reports that he is going to talk to podiatry about possibly amputating his infected toe. Renal function continues to improve. OBJECTIVE: VITAL SIGNS: Temperature 97 degrees Fahrenheit, blood pressure 148/71, pulse 51, respiratory rate 18, saturating 97% on room air. INTAKE AND OUTPUT: Urine output recorded as 800 mL so far since overnight. Weight in the bed scale is not available. PHYSICAL EXAMINATION: GENERAL: Patient is awake, alert, oriented times three, laying in bed, no apparent distress. HEAD AND NECK EXAM: Extraocular muscles intact. Pupils equally round and reactive to light. Mucous membranes are moist. Neck is supple. There is no jugular venous distention (JVD). CARDIOVASCULAR: S1, S2. Regular rate. No edema of the bilateral lower extremities. RESPIRATORY: Chest is clear to auscultation bilaterally. Bilateral equal air entry. No rales or rhonchi. ABDOMEN: Soft. Positive bowel sounds. Nontender. No organomegaly MUSCULOSKELETAL: He has a dressing on the right foot and left below-knee amputation. CENTRAL NERVOUS SYSTEM (PHARMACEUTICAL SALES): No focal deficit. Power is 5/5 in all extremities. LABORATORY STUDIES: CBC showed WBC 9.7, hemoglobin 10.4, platelets 594. BMP showed sodium 143, potassium 4.7, chloride 112, bicarbonate 27, BUN 25, creatinine 2.2, it was 2.3 yesterday. MICROBIOLOGY: Repeat blood cultures from December 09, 2020 are negative so far. CURRENT INPATIENT MEDICATIONS: Patient's medications were all reviewed by myself. He is currently on intravenous (IV) cefazolin. No diuretics at this time. No other significant change in the medications today as compared with yesterday. ASSESSMENT AND PLAN: 1. Chronic kidney disease stage III. Patient had acute renal failure. Renal function is improving now. Creatinine is 2.2, which is close to his baseline. 2. Osteomyelitis of the right foot. Patient is being seen by infectious disease and podiatry. Currently, he is on IV cefazolin. 3. Hypertension. Blood pressure is controlled with metoprolol. 4. Diabetes mellitus type 2 with biopsy-proven diabetic nephropathy. Patient is not a candidate for angiotensin converting enzyme (RUPAL) or angiotensin receptor [place] (ARB) at this time because he is recovering from acute renal failure. Diuretics are on hold because there is no edema and he was in acute renal failure.
[2020-12-12] MEDS: ACETAMINOPHEN TAB 650MG DOSE (2X325MG) PO PRN (13:58)
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
[2020-12-12 22:00] VITALS: BP 160/80
[2020-12-12] MEDS: ATORVASTATIN 10 MG TAB PO SCH (22:01)
[2020-12-12] MEDS: LEVEMIR (INSULIN DETEMIR) 1 UNITS/0.01ML SC SCH (22:03)
[2020-12-13] MEDS: oxyCODONE 5MG TAB PO PRN ×2 (02:25→18:06)
[2020-12-13 06:00] VITALS: BP 161/82
[2020-12-13] MEDS: ceFAZolin SOD 2 GM in IV 1 EA IV SCH ×2 (06:43→18:06)
[2020-12-13 07:01] LABS: BASO # 0.1 10^3/uL (0.0-0.2); BASO % 1.3 % (0.0-1.0); EOS # 0.5 10^3/uL (0.0-0.5); EOS % 5.3 % (0.0-3.0); HEMATOCRIT 34.7 % (42.0-52.0); HEMOGLOBIN 10.3 g/dl (13.5-17.5); LYMPH # 1.3 10^3/uL (1.5-5.0); LYMPH % 13.7 % (24.0-44.0); MEAN CORPUSCULAR HEMOGLOBIN 27.8 pg (27.0-33.0); MEAN CORPUSCULAR HGB CONC 29.7 g/dl (32.0-36.5); MEAN CORPUSCULAR VOLUME 93.8 fl (80.0-96.0); MONO # 0.4 10^3/uL (0.0-0.8); MONO % 4.5 % (2.0-8.0); NEUTROPHILS # 6.8 10^3/uL (1.5-8.5); NEUTROPHILS % 72.6 % (36.0-66.0); PLATELET COUNT, AUTOMATED 539 10^3/uL (150-450); WHITE BLOOD COUNT 9.3 10^3/uL (4.0-10.0)
[2020-12-13 07:21] LABS: CALCIUM LEVEL 9.2 MG/DL (8.8-10.2); CREATININE FOR GFR 1.99 MG/DL (0.70-1.30); GLOMERULAR FILTRATION RATE 36.7 (>49); POTASSIUM SERUM 4.8 MEQ/L (3.5-5.1)
[2020-12-13] MEDS: oxyCODONE 20 MG CR TAB PO SCH ×3 (09:00→20:30)
[2020-12-13] MEDS: SODIUM CHLORIDE 0.9% INJ 10 ML SYR IV SCH ×2 (09:12→18:07)
[2020-12-13] MEDS: APIXABAN 5 MG TAB (ELIQUIS) PO SCH ×2 (09:13→20:30)
[2020-12-13] MEDS: GABAPENTIN 100 MG CAP PO SCH ×2 (09:13→20:29)
[2020-12-13] MEDS: HumaLOG INSULIN (NovoLOG) PER UNIT SC SCH ×4 (09:13→20:31)
[2020-12-13] MEDS: ASPIRIN 81MG ENTERIC TABLET PO SCH (09:13)
[2020-12-13] MEDS: VITAMIN D 1,000 INTERNATIONAL UNITS TABLET PO SCH (09:13)
[2020-12-13] MEDS: BACLOFEN 10 MG TAB PO SCH ×2 (09:13→20:30)
[2020-12-13] MEDS: buPROPion **XL** TABLET 150MG (WELLBUTRIN XL) PO SCH (09:13)
[2020-12-13] MEDS: METOPROLOL SUCC (TopROL XL) 100MG *XL* TAB PO SCH (09:16)
[2020-12-13] MEDS: HYDROCORTISONE 1% CREAM 30 GM TOP SCH ×2 (09:17→20:32)
[2020-12-13] MEDS: FLUTICASONE PROP 0.05% NASAL SPRAY 16 GM (FLONASE) SCH (09:17)
[2020-12-13] MEDS ORDERED: lisinopriL 5 MG TAB PO SCH (09:50)
--- NOTE | 2020-12-13 11:10 | DS.PDOC ---
Discharge Summary General Date of Admission Dec 05, 2020 at 21:28 Date of Discharge 12/13/2020 Attending Physician: MATTHEW CHAPPELL MD Discharge Summary PROCEDURES PERFORMED DURING STAY: Right foot incision and drainage on 12/07/[address] Izaguirre ADMITTING DIAGNOSES: R foot pain DISCHARGE DIAGNOSES: R foot cellulitis, abscess between 2nd and 3rd toe, and R foot 2nd toe os teomyelitis JAK2 + polycythemia vera (he receives phlebotomy weekly) Hypertensive heart disease, Hx of RUE DVT & PE on eliquis JANIE on CKD3/4 SARAH IDDM w neuropathy, s/p L BKA GERD Chronic back pain / DJD Depression COMPLICATIONS/CHIEF COMPLAINT: Diarrhea, Left Foot Pain. HISTORY OF PRESENT ILLNESS: 60-year-old gentleman with JAK2 + polycythemia vera (he receives phlebotomy weekly), hypertensive heart disease, Hx of RUE DVT & PE, CKD3/4 (with nephrotic syndrome and history of anasarca), SARAH, Depression, IDDM w neuropathy, s/p L BKA, who presented with right foot redness and pain for 3 or 4 days along with fevers and chills and admitted for R foot cellulitis with c/f abscess and ostemyelitis. HOSPITAL COURSE: He was admitted to medicine and started on empiric vancomycin and zosyn with eventual admission blood cultures growing MSSA and was switched to ancef by ID. Dr. Izaguirre was consulted and recommended an MRI of the R foot that a collection between the 2nd and 3rd toes and 2nd osteomyelitis and performed an I&D of the abscess on 12/07 with plan for eventual 2nd toe amputation in the outpatient setting. He was maintained on ancef and is now being discharged home with plan for dalvance tomorrow in the outpatient setting with close PCP, ID and podiatry follow up. Of note, he had a TTE given the transient MSSA bacteremia and it showed no vegetations. In the meantime, he was also admitted with an JANIE on CKD and nephrology was consulted and held his diuretic and ACEi with improvement. Dr. Cabrera has recommended discharging home with those two drugs stopped, and will follow up in outpatient nephrology shortly for continued assessment. DISCHARGE MEDICATIONS: Please see below. ALLERGIES: Please see below. PHYSICAL EXAMINATION ON DISCHARGE: VITAL SIGNS: Please see below. General: Alert, Cooperative, No Acute Distress Eyes: PERRLA, Conjunctiva & lids normal, EOMI, anicteric ENT: Atraumatic, Mucous membr. moist/pink, Pharynx Normal Neck: Supple, no JVD Chest: Clear to auscultation, Normal air movement Heart: Rate Normal, Regular Rhythm, Normal S1, Normal S2, no noted murmurs Abdomen Exam: Positive: Normal bowel sounds, Soft; Extremities: s/p left BKA with long healed stump with prosthesis on. Right second toe swollen with mild erythema with an ulcer on the planter aspect and deep narrow wound at the base of first toe. Psych: Memory Intact, Oriented x 3 LABORATORY DATA: Please see below. IMAGING: MRI R foot: 1.There is fluid in the 2nd MTP joint with a fluid collection measuring 11 mm in the interspace between the 2nd and 3rd digits consist with an abscess. 2. Bone marrow edema in the 2nd digit on STIR images. Includes mild edema in the 2nd metatarsal head, proximal and middle phalanx. This may be seen secondary to hyperemia and reactive osteitis. On T1 weighted images edema is seen most extensively within the base of the 2nd proximal phalanx consistent with osteomyelitis . Has h/o MRSA. continue ceftaroline. Had incision and drainage of the right foot on 12/07/2020. No purulent material was found, no necrotic tissues was found. Blood cultures 1/3 positive for staph will consult ID Lumbosacral XR: Alignment and lordosis is maintained. Chronic stable compression deformity at T12 again noted. Underlying osteopenia and advanced multilevel degenerative changes include endplate sclerosis, disc space narrowing, facet hypertrophy and osteophytosis. Findings most pronounced at the L5-S1 and L4-5 levels. IMPRESSION: 1. No acute fracture / compression injury or subluxation. 2. Progressive advanced multilevel degenerative changes. 3. Stable compression deformity at T12. Cervical spine XR: On lateral radiograph the cervical spine is visualized to mid C5 but not below. Even the swimmer's lateral view was unable to successfully display the lower cervical segments on the lateral projection. AP and open-mouth odontoid views demonstrate diffuse osteoarthritic facet disease in the mid cervical spine. No there is evidence of degenerative disc disease at C 6 7 and C5-6 based on the frontal view where there is sclerosis of the endplates. The upper cervical segments are normally aligned. No subluxation is seen. There is mild degenerative narrowing at C4-5 disc. The patient is edentulous. IMPRESSION: Incomplete visualization of the lower cervical spine segments on lateral radiographs. Degenerative disc and facet changes as noted above. RLE doppler venous US: The deep veins are anechoic and fully compressible from the groin to the popliteal fossa in the right lower extremity. Color flow imaging is homogeneous. Spectral Doppler interrogation demonstrates intact respiratory variation in flow and normal manual augmentation of flow. There is no evidence of deep vein thrombosis above the knee. There is no evidence of DVT in the visualized calf veins. Doppler interrogation of the contralateral common femoral vein shows normal symmetric respiratory phasicity. IMPRESSION: No evidence of DVT in the right lower extremity femoropopliteal veins. No DVT in the visible portions of the calf veins. R foot XR: Bones/joints: Prior amputation of the 1st toe. Advanced osteoarthritis in the foot and ankle. No erosive or destructive changes. Calcaneal enthesopathy at the plantar fascia and Achilles tendon attachments. Soft tissues: Soft tissue swelling with small area of subcutaneous emphysema in the medial foot. There is a 3 mm curvilinear metallic foreign body in the plantar surface of the hindfoot. IMPRESSION: 1. Advanced osteoarthritis. 2. No signs of acute osteomyelitis or fracture. 3. Soft tissue swelling with small area of subcutaneous emphysema in the medial foot. 4. 3 mm subcutaneous foreign body in the plantar hindfoot. CXR: Lungs: The lungs appear clear. Pleural spaces: There is no evidence of pneumothorax or pleural effusion. Heart/Mediastinum: The heart is normal in size. Bones/joints: There is no evidence of bony abnormality. IMPRESSION: Clear appearing lungs. PROGNOSIS: Good ACTIVITY: As tolerated DIET: consistent carb, 2g sodium DISCHARGE PLAN: Home w/ dalvance scheduled for 12/15 and close podiatry, ID, nephrology and PCP follow up DISPOSITION: Home DISCHARGE INSTRUCTIONS: Home w/ dalvance scheduled for 12/15 and close podiatry, ID, nephrology and PCP follow up ITEMS TO FOLLOWUP ON ON OUTPATIENT: R 2nd toe osteomyelitis JANIE on CKD DM DISCHARGE CONDITION: Stable TIME SPENT ON DISCHARGE: 56 minutes. Vital Signs/I&Os Vital Signs Date Time Temp Pulse Resp B/P (MAP) Pulse Ox O2 Delivery O2 Flow Rate FiO2 12/13/20 10:32 18 12/13/20 09:16 64 155/78 12/13/20 06:00 97.3 98 Room Air 12/07/20 12:48 3 I&O- Last 24 Hours up to 6 AM 12/13/20 06:00 Intake Total 1750 ml Output Total 2400 ml Balance -650 ml Laboratory Data Labs 24H Laboratory Tests 2 12/12/20 12:02: Bedside Glucose (Misc Panel) 128H 12/12/20 16:41: Bedside Glucose (Misc Panel) 121H 12/12/20 20:45: Bedside Glucose (Misc Panel) 159H 12/13/20 06:34: Immature Granulocyte % (Auto) 2.6, Neutrophils (%) (Auto) 72.6H, Lymphocytes (%) (Auto) 13.7L, Monocytes (%) (Auto) 4.5, Eosinophils (%) (Auto) 5.3H, Basophils (%) (Auto) 1.3H, Neutrophils # (Auto) 6.8, Lymphocytes # (Auto) 1.3L, Monocytes # (Auto) 0.4, Eosinophils # (Auto) 0.5, Basophils # (Auto) 0.1, Nucleated Red Blood Cells % (auto) 0.0, Anion Gap 7L, Glomerular Filtration Rate 36.7L, Calcium Level 9.2 CBC/BMP Laboratory Tests 12/13/20 06:34 FSBS Laboratory Tests Test 12/12/20 12:02 12/12/20 16:41 12/12/20 20:45 Range/Units Bedside Glucose (Misc Panel) 128 121 159 80-115 MG/DL Microbiology Microbiology 12/09/20 Blood Culture - Preliminary, Resulted No Growth after 72 hours. All specime... 12/09/20 Blood Culture - Preliminary, Resulted No Growth after 72 hours. All specime... 12/06/20 Blood Culture - Final, Complete NO GROWTH AFTER 5 DAYS 12/06/20 Respiratory Virus Panel (PCR) (ANTOINE) - Final, Complete 12/06/20 Blood Culture - Final, Complete Staphylococcus Aureus 12/06/20 Blood Culture - Final, Complete NO GROWTH AFTER 5 DAYS Discharge Medications Scheduled Apixaban (Eliquis) 5 Mg Tablet, 5 MG PO BID, (Reported) Aspirin (Aspirin EC) 81 Mg Tablet.dr, 81 MG PO DAILY, (Reported) Atorvastatin Calcium (Atorvastatin Calcium) 10 Mg Tablet, 10 MG PO QHS, (Reported) Baclofen (Baclofen) 10 Mg Tablet, 10 MG PO BID, (Reported) Bupropion HCl (Bupropion Xl) 150 Mg Tab.er.24h, 150 MG PO DAILY, (Reported) Calcitriol (Calcitriol) 0.25 Mcg Capsule, 0.25 MCG PO 3XW, (Reported) THURSDAY, THURSDAY AND THURSDAY Cholecalciferol (Vitamin D3) (Vitamin D3) 1,000 Unit Tablet, 1,000 UNITS PO DAILY, (Reported) Fluticasone Propionate (Flonase Allergy Relief) 9.9 Ml [place].susp, 2 SPRAYS NA DAILY, (Reported) Insulin Detemir (Levemir) 100 Unit/1 Ml Vial, 14 UNITS SC BID, (Reported) Levocetirizine Dihydrochloride (Levocetirizine Dihydrochloride) 5 Mg Tablet, 5 MG PO QHS, (Reported) Metoprolol Succinate (Metoprolol Succinate) 100 Mg Tab.er.24h, 100 MG PO DAILY, (Reported) Omeprazole (Omeprazole) 20 Mg Capsule.dr, 20 MG PO DAILY, (Reported) Oxycodone HCl (Oxycontin) 20 Mg Tab.er.12h, 20 MG PO Q12H, (Reported) Scheduled PRN Oxycodone Hcl (Oxycodone HCl) 15 Mg Tablet, 15 MG PO Q4H PRN for PAIN, (Reported) Allergies Coded Allergies: povidone-iodine (Verified Allergy, Unknown, 08/18/18) soap (Verified Allergy, Unknown, 08/18/18) MATTHEW CHAPPELL MD Dec 13, 2020 11:10
--- NOTE | 2020-12-13 12:05 | IPN ---
NEPHROLOGY PROGRESS NOTE DATE: 12/13/2020 SUBJECTIVE: Patient was seen and examined in the wheelchair today. He was in the hallway today. Reports that he talked to podiatry about possibly amputating his toe. Otherwise, he continues to be on intravenous (IV) antibiotics. His renal function continues to improve. Blood pressures are slightly higher than baseline. OBJECTIVE: VITAL SIGNS: Temperature 97.3 degrees Fahrenheit, blood pressure 155/78, pulse 64, respiratory rate 18, saturating 98% on room air. INTAKE AND OUTPUT: Urine output recorded as 1.3 liters so far today since overnight. Weight in the bed scale is not available. PHYSICAL EXAMINATION: GENERAL: Patient is awake, alert, oriented times three, sitting up in the wheelchair, no apparent distress. HEAD AND NECK EXAM: Extraocular muscles intact. Pupils equally round and reactive to light. Mucous membranes are moist. Neck is supple. There is no jugular venous distention (JVD). CARDIOVASCULAR: S1, S2. Regular rate. Trace edema of the right ankle. RESPIRATORY: Chest is clear to auscultation bilaterally. Bilateral equal air entry. No rales or rhonchi. ABDOMEN: Soft, nontender and obsess. MUSCULOSKELETAL: He has a dressing on the right foot and left below-knee amputation with a prosthesis. CENTRAL NERVOUS SYSTEM (EMPLOYMENT DIRECTOR): No focal deficit. Power is 5/5 in all extremities. LABORATORY STUDIES: CBC showed WBC 9.3, hemoglobin 10.3, platelets 539. BMP showed sodium 145, potassium 4.8, chloride 113, bicarbonate 25, BUN 23, creatinine 1.9, it was 2.2 yesterday. CURRENT INPATIENT MEDICATIONS: Patient's medications were all reviewed by myself. I have started the patient on lisinopril 5 mg by mouth daily and he continues to be on IV Ancef. No other significant change in the medications today. ASSESSMENT AND PLAN: 1. Acute renal failure superimposed on chronic kidney disease. Patient's renal function has improved to chronic kidney disease stage III. He has biopsy-proven diabetic nephropathy. Creatinine is less than 2 now. Low dose angiotensin converting enzyme (RUPAL) inhibitor has been added, as mentioned below. 2. Hypertension. Blood pressure was running high now. He is already on metoprolol. Home dose of lisinopril was 30 mg. I have started him on 5 mg daily. Further dose adjustment will be done depending on patient's blood pressure and renal function. 3. Osteomyelitis of the right foot. Patient is on IV cefazolin. IV antibiotics on discharge is as per infectious disease (ID) recommendations. 4. Diabetes mellitus type 2 with diabetic nephropathy. Since renal function is improving, low dose of lisinopril has been restarted. Continue to monitor renal function. Diuretics are still on hold. DISPOSITION: Patient is optimized from a nephrology standpoint to be discharged home. He will need to follow up in nephrology as outpatient.
[2020-12-13 14:00] VITALS: BP 186/84
[2020-12-13 16:00] VITALS: BP 198/98
[2020-12-13] MEDS: **hydrALAZINE HCL** 25 MG TAB PO SCH ×2 (18:06→23:40)
[2020-12-13 18:51] VITALS: BP 157/79
[2020-12-13] MEDS: ATORVASTATIN 10 MG TAB PO SCH (20:30)
[2020-12-13] MEDS: LEVEMIR (INSULIN DETEMIR) 1 UNITS/0.01ML SC SCH (20:32)
[2020-12-13 22:00] VITALS: BP 158/85
[2020-12-14] MEDS: oxyCODONE 5MG TAB PO PRN ×2 (01:21→21:34)
[2020-12-14] MEDS ORDERED: RAMELTEON 8 MG TAB (ROZEREM) PO PRN (02:10)
[2020-12-14 06:00] VITALS: BP 146/80
[2020-12-14] MEDS: ACETAMINOPHEN TAB 650MG DOSE (2X325MG) PO PRN (06:21)
[2020-12-14] MEDS: ceFAZolin SOD 2 GM in IV 1 EA IV SCH ×2 (06:22→21:09)
[2020-12-14] MEDS: **hydrALAZINE HCL** 25 MG TAB PO SCH ×3 (06:22→18:20)
[2020-12-14 06:53] LABS: HEMATOCRIT 33.5 % (42.0-52.0); HEMOGLOBIN 10.1 g/dl (13.5-17.5); MEAN CORPUSCULAR HEMOGLOBIN 28.3 pg (27.0-33.0); MEAN CORPUSCULAR HGB CONC 30.1 g/dl (32.0-36.5); MEAN CORPUSCULAR VOLUME 93.8 fl (80.0-96.0); PLATELET COUNT, AUTOMATED 507 10^3/uL (150-450); RED BLOOD COUNT 3.57 10^6/uL (4.30-6.10); WHITE BLOOD COUNT 9.9 10^3/uL (4.0-10.0)
[2020-12-14 07:08] LABS: CALCIUM LEVEL 8.7 MG/DL (8.8-10.2); CREATININE FOR GFR 1.93 MG/DL (0.70-1.30); POTASSIUM SERUM 4.7 MEQ/L (3.5-5.1)
[2020-12-14 07:10] LABS: ATYPICAL LYMPH 3 % (0-5); EOSINOPHILS 3 % (0-3); LYMPHOCYTES 12 % (16-44); MONOCYTES 9 % (0-5); NEUTROPHILS 73 % (28-66); PLATELET ESTIMATE INCREASED (NORMAL)
[2020-12-14 07:11] LABS: ANISOCYTOSIS 1+; POLYCHROMASIA 1+
[2020-12-14] MEDS: SODIUM CHLORIDE 0.9% INJ 10 ML SYR IV SCH ×2 (07:45→17:02)
[2020-12-14] MEDS: HumaLOG INSULIN (NovoLOG) PER UNIT SC SCH ×4 (08:36→21:00)
[2020-12-14] MEDS: ASPIRIN 81MG ENTERIC TABLET PO SCH (08:37)
[2020-12-14] MEDS: buPROPion **XL** TABLET 150MG (WELLBUTRIN XL) PO SCH (08:38)
[2020-12-14] MEDS: oxyCODONE 20 MG CR TAB PO SCH ×2 (08:38→21:31)
[2020-12-14] MEDS: GABAPENTIN 100 MG CAP PO SCH ×2 (08:38→21:32)
[2020-12-14] MEDS: BACLOFEN 10 MG TAB PO SCH ×2 (08:38→21:32)
[2020-12-14] MEDS: METOPROLOL SUCC (TopROL XL) 100MG *XL* TAB PO SCH (08:38)
[2020-12-14] MEDS: VITAMIN D 1,000 INTERNATIONAL UNITS TABLET PO SCH (08:38)
[2020-12-14] MEDS: APIXABAN 5 MG TAB (ELIQUIS) PO SCH ×2 (08:39→21:32)
[2020-12-14] MEDS: CALCITRIOL 0.25 MCG CAP (S0169) PO SCH (08:39)
[2020-12-14] MEDS: FLUTICASONE PROP 0.05% NASAL SPRAY 16 GM (FLONASE) SCH (08:40)
[2020-12-14] MEDS: HYDROCORTISONE 1% CREAM 30 GM TOP SCH ×2 (08:40→21:32)
--- NOTE | 2020-12-14 10:00 | IPN ---
PROGRESS NOTE DATE: 12/14/2020 SUBJECTIVE: Patient was seen and examined at the bedside today morning. He was supposed to be discharged yesterday but he does not feel comfortable going home. He reports that now his transfer to a rehab unit is being arranged. Patient was hypertensive yesterday. He was started on Lisinopril 5 mg daily by myself. However, despite that his blood pressures were high and he needed to be given hydralazine as well. He denies any edema at this time. OBJECTIVE: VITAL SIGNS: Temperature is 98.1 degrees Fahrenheit, blood pressure is 158/75, pulse is 62, respiratory rate is 14, saturating 95% on room air. INTAKE AND OUTPUT: Urine output recorded as 2.3 liters yesterday, 775 ml so far today. Weight on the bed scale is 113.9 kg. GENERAL: Patient is awake, alert and oriented x3, obese, in no apparent distress, laying in bed. HEAD AND NECK: Extraocular muscles intact. Pupils equally round and reactive to light. Mucous membranes are moist. Neck is supple. There is no JVD. CARDIOVASCULAR: S1 and S2, regular rate. No edema of the bilateral lower extremities. RESPIRATORY: Chest is clear to auscultation bilaterally. Bilateral equal air entry. No rales or rhonchi. ABDOMEN: Obese, positive bowel sounds, nontender. No organomegaly. MUSCULOSKELETAL: He has a left below the knee amputation. Right foot has a dressing. There is no swelling in the ankle. OIL LABORATORY ANALYST: No focal deficit. Power is 5/5 in all extremities. LABORATORY DATA: CBC showed a WBC of 9.9, hemoglobin 10.1, platelets are 507,000. BMP showed a sodium of 144, potassium is 4.7, chloride is 113, bicarbonate 27. BUN 22, creatinine is 1.9. Calcium is 8.7. CURRENT INPATIENT MEDICATIONS: Patient's medications were all reviewed by myself. She continues to be on IV Cefazolin. He was started on hydralazine 25 mg p.o. 6 hourly. I have increased his Lisinopril dose to 10 mg p.o. daily. No other significant change in the medication today as compared with yesterday. ASSESSMENT AND PLAN: 1. Chronic kidney disease Stage III. Patient has diabetic nephropathy. Renal function has improved back to baseline. RUPAL inhibitor is slowly be reintroduced. 2. Hypertension, blood pressures were elevated yesterday. Lisinopril is being increased to 10 mg p.o. daily. He continues to be on metoprolol. I also see that hydralazine was started by the medical team. 3. Osteomyelitis of the right foot. Patient is on IV Cefazolin and reports that he needs two weeks of antibiotics before amputation of the toe is done. 4. Diabetes mellitus Type 2 with diabetic nephropathy. Okay to continue Lisinopril for now. Avoid use of Metformin. Continue Insulin Lispro and Levemir.
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
[2020-12-14] MEDS: SODIUM CHLORIDE 0.9% INJ 10 ML SYR IV PRN (17:03)
[2020-12-14] MEDS: LEVEMIR (INSULIN DETEMIR) 1 UNITS/0.01ML SC SCH (21:29)
[2020-12-14] MEDS: ATORVASTATIN 10 MG TAB PO SCH (21:32)
[2020-12-14 22:00] VITALS: BP 160/62
[2020-12-15] MEDS: **hydrALAZINE HCL** 25 MG TAB PO SCH ×5 (00:12→23:30)
[2020-12-15 06:00] VITALS: BP 169/89
[2020-12-15] MEDS: ceFAZolin SOD 2 GM in IV 1 EA IV SCH ×2 (06:23→18:33)
[2020-12-15] MEDS: SODIUM CHLORIDE 0.9% INJ 10 ML SYR IV SCH ×2 (06:23→19:21)
[2020-12-15] MEDS: oxyCODONE 5MG TAB PO PRN ×2 (06:38→18:34)
[2020-12-15 06:45] LABS: HEMATOCRIT 35.2 % (42.0-52.0); HEMOGLOBIN 10.5 g/dl (13.5-17.5); MEAN CORPUSCULAR HEMOGLOBIN 27.9 pg (27.0-33.0); MEAN CORPUSCULAR HGB CONC 29.8 g/dl (32.0-36.5); MEAN CORPUSCULAR VOLUME 93.6 fl (80.0-96.0); PLATELET COUNT, AUTOMATED 484 10^3/uL (150-450); RED BLOOD COUNT 3.76 10^6/uL (4.30-6.10); WHITE BLOOD COUNT 9.5 10^3/uL (4.0-10.0)
[2020-12-15 07:15] LABS: CALCIUM LEVEL 9.1 MG/DL (8.8-10.2); CREATININE FOR GFR 1.79 MG/DL (0.70-1.30); GLOMERULAR FILTRATION RATE 41.4 (>49); POTASSIUM SERUM 4.3 MEQ/L (3.5-5.1)
[2020-12-15 07:29] LABS: ANISOCYTOSIS 1+; ATYPICAL LYMPH 1 % (0-5); EOSINOPHILS 7 % (0-3); LYMPHOCYTES 10 % (16-44); MONOCYTES 4 % (0-5); MYELOCYTES 2 % (0-0); NEUTROPHILS 75 % (28-66)
[2020-12-15 07:30] LABS: HYPOCHROMASIA 1+; PLATELET ESTIMATE INCREASED (NORMAL)
[2020-12-15] MEDS: SODIUM CHLORIDE 0.9% INJ 10 ML SYR IV PRN (07:37)
[2020-12-15] MEDS: METOPROLOL SUCC (TopROL XL) 100MG *XL* TAB PO SCH (07:57)
[2020-12-15] MEDS: ASPIRIN 81MG ENTERIC TABLET PO SCH (07:57)
[2020-12-15] MEDS: HumaLOG INSULIN (NovoLOG) PER UNIT SC SCH ×4 (07:57→21:00)
[2020-12-15] MEDS: BACLOFEN 10 MG TAB PO SCH ×2 (07:58→21:20)
[2020-12-15] MEDS: VITAMIN D 1,000 INTERNATIONAL UNITS TABLET PO SCH (07:58)
[2020-12-15] MEDS: buPROPion **XL** TABLET 150MG (WELLBUTRIN XL) PO SCH (07:58)
[2020-12-15] MEDS: GABAPENTIN 100 MG CAP PO SCH ×2 (07:58→21:20)
[2020-12-15] MEDS: APIXABAN 5 MG TAB (ELIQUIS) PO SCH ×2 (07:58→21:20)
[2020-12-15] MEDS: oxyCODONE 20 MG CR TAB PO SCH ×2 (07:59→21:22)
[2020-12-15] MEDS: HYDROCORTISONE 1% CREAM 30 GM TOP SCH ×2 (08:00→21:23)
[2020-12-15] MEDS: FLUTICASONE PROP 0.05% NASAL SPRAY 16 GM (FLONASE) SCH (08:00)
[2020-12-15] MEDS: LACTOBACILLUS ACIDOPHILUS CAP (BACID) PO SCH ×2 (12:33→18:33)
--- NOTE | 2020-12-15 14:31 | IPN ---
[facility]: 12/15/2020 SUBJECTIVE: Jovanny was seen and examined this morning at the bedside. He complains of recurrent watery diarrhea. He has no other complaints. Laboratory studies show stable renal function. His lisinopril dose was increased yesterday and blood pressure looks a little better today. OBJECTIVE: VITAL SIGNS: Temperature 97.7, pulse 64, respiratory rate 17, blood pressure 147/71, saturating 97% on room air. INTAKE AND OUTPUT: Intake yesterday was recorded as 2.2 liters. There were five bowel movements recorded and 1 liter of urine. Weight in the bed scale is 113.9 kg. GENERAL: Patient is seen lying in bed, awake, alert, oriented, comfortable, in no distress. HEENT: Extraocular muscles are intact. Tongue is moist. Neck is supple. There is no jugular venous distention. Mucous membranes are moist. HEART: Heart sounds are regular. S1, S2. There is no edema of the lower extremities. RESPIRATORY: Lungs are clear to auscultation. No crackle, rale or rhonchus. ABDOMEN: Obese, soft and nontender. There are bowel sounds. EXTREMITIES: He has a left [id number] amputation and the right foot has a dressing. There is no edema. NEUROLOGIC: He is at baseline mentation, interactive and conversational. No focal deficit. LABORATORY DATA: White count 9.5, hemoglobin 10.5, platelets 484. Sodium 142, potassium 4.3, bicarbonate 23, BUN 21, creatinine 1.7, as compared to 1.9 yesterday. A Clostridium (C) difficile test is pending. INPATIENT MEDICATIONS: His lisinopril was increased yesterday to 10 mg daily. He was started on Bacid with meals today. His remainder of medications are all unchanged as compared to yesterday. PROBLEMS: 1. Chronic kidney disease (CKD) stage IIIB with proteinuria and diabetic nephropathy. Renal function is at his usual baseline. His angiotensin converting enzyme (RUPAL) inhibitor dose is slowly being increased. Yesterday, it was increased to 10 mg daily and he has tolerated the increase in dose without any issue. 2. Hypertension. Continue metoprolol, hydralazine and lisinopril. He is having diarrhea today. I am not going to increase his lisinopril further today. 3. Recurrent watery diarrhea. Clostridium (C) difficile PCR is pending and he was started on Bacid by the primary team. 4. Osteomyelitis of the right foot. He continues on intravenous (IV) cefazolin along with local wound care. 5. Insulin dependent diabetes mellitus type 2. Longstanding and poorly controlled with diabetic nephropathy and diabetic neuropathy. He continues on gabapentin and insulin, as managed by primary team.
[2020-12-15] MEDS: ATORVASTATIN 10 MG TAB PO SCH (21:19)
[2020-12-15] MEDS: LEVEMIR (INSULIN DETEMIR) 1 UNITS/0.01ML SC SCH (21:22)
[2020-12-16] MEDS: **hydrALAZINE HCL** 25 MG TAB PO SCH ×3 (05:22→17:50)
[2020-12-16] MEDS: ceFAZolin SOD 2 GM in IV 1 EA IV SCH ×2 (05:23→17:49)
[2020-12-16] MEDS: SODIUM CHLORIDE 0.9% INJ 10 ML SYR IV SCH ×2 (05:23→17:53)
[2020-12-16 05:44] LABS: BASO # 0.1 10^3/uL (0.0-0.2); BASO % 1.2 % (0.0-1.0); EOS # 0.4 10^3/uL (0.0-0.5); HEMATOCRIT 35.6 % (42.0-52.0); HEMOGLOBIN 10.8 g/dl (13.5-17.5); LYMPH # 1.7 10^3/uL (1.5-5.0); MEAN CORPUSCULAR HEMOGLOBIN 28.1 pg (27.0-33.0); MEAN CORPUSCULAR HGB CONC 30.3 g/dl (32.0-36.5); MEAN CORPUSCULAR VOLUME 92.5 fl (80.0-96.0); MONO # 0.4 10^3/uL (0.0-0.8); MONO % 4.2 % (2.0-8.0); NEUTROPHILS # 7.4 10^3/uL (1.5-8.5); NEUTROPHILS % 71.7 % (36.0-66.0); PLATELET COUNT, AUTOMATED 545 10^3/uL (150-450); RED BLOOD COUNT 3.85 10^6/uL (4.30-6.10); WHITE BLOOD COUNT 10.3 10^3/uL (4.0-10.0)
[2020-12-16 06:00] VITALS: BP 181/92
[2020-12-16 06:01] LABS: CALCIUM LEVEL 8.9 MG/DL (8.8-10.2); CREATININE FOR GFR 2.04 MG/DL (0.70-1.30); GLOMERULAR FILTRATION RATE 35.6 (>49); POTASSIUM SERUM 4.9 MEQ/L (3.5-5.1)
[2020-12-16] MEDS: buPROPion **XL** TABLET 150MG (WELLBUTRIN XL) PO SCH (08:57)
[2020-12-16] MEDS: ASPIRIN 81MG ENTERIC TABLET PO SCH (08:57)
[2020-12-16] MEDS: HumaLOG INSULIN (NovoLOG) PER UNIT SC SCH ×4 (08:57→20:55)
[2020-12-16] MEDS: LACTOBACILLUS ACIDOPHILUS CAP (BACID) PO SCH ×3 (08:57→17:50)
[2020-12-16] MEDS: BACLOFEN 10 MG TAB PO SCH ×2 (08:57→21:08)
[2020-12-16] MEDS: APIXABAN 5 MG TAB (ELIQUIS) PO SCH ×2 (08:57→21:08)
[2020-12-16] MEDS: VITAMIN D 1,000 INTERNATIONAL UNITS TABLET PO SCH (08:58)
[2020-12-16] MEDS: GABAPENTIN 100 MG CAP PO SCH ×2 (08:58→21:08)
[2020-12-16] MEDS: oxyCODONE 20 MG CR TAB PO SCH ×2 (08:59→21:08)
[2020-12-16] MEDS: FLUTICASONE PROP 0.05% NASAL SPRAY 16 GM (FLONASE) SCH (09:00)
[2020-12-16] MEDS: METOPROLOL SUCC (TopROL XL) 100MG *XL* TAB PO SCH (09:11)
[2020-12-16] MEDS: HYDROCORTISONE 1% CREAM 30 GM TOP SCH ×2 (09:12→21:09)
[2020-12-16] MEDS: oxyCODONE 5MG TAB PO PRN (12:43)
[2020-12-16] MEDS: SODIUM CHLORIDE 0.9% INJ 10 ML SYR IV PRN (18:48)
[2020-12-16] MEDS: LEVEMIR (INSULIN DETEMIR) 1 UNITS/0.01ML SC SCH (20:55)
[2020-12-16] MEDS: ATORVASTATIN 10 MG TAB PO SCH (21:08)
[2020-12-17] MEDS: **hydrALAZINE HCL** 25 MG TAB PO SCH ×4 (00:36→17:09)
[2020-12-17] MEDS: oxyCODONE 5MG TAB PO PRN (04:46)
[2020-12-17] MEDS: ceFAZolin SOD 2 GM in IV 1 EA IV SCH ×2 (05:36→17:41)
[2020-12-17] MEDS: SODIUM CHLORIDE 0.9% INJ 10 ML SYR IV SCH ×2 (05:36→17:41)
[2020-12-17 06:00] VITALS: BP 170/82
[2020-12-17] MEDS: HumaLOG INSULIN (NovoLOG) PER UNIT SC SCH ×4 (07:30→20:43)
[2020-12-17] MEDS: FLUTICASONE PROP 0.05% NASAL SPRAY 16 GM (FLONASE) SCH (09:00)
[2020-12-17] MEDS: HYDROCORTISONE 1% CREAM 30 GM TOP SCH ×2 (09:00→20:53)
[2020-12-17] MEDS: oxyCODONE 20 MG CR TAB PO SCH ×2 (09:00→20:52)
[2020-12-17] MEDS: ISOSORBIDE MON. (IMDUR) 30 MG XR TAB PO SCH (09:49)
[2020-12-17] MEDS: VITAMIN D 1,000 INTERNATIONAL UNITS TABLET PO SCH (09:49)
[2020-12-17] MEDS: GABAPENTIN 100 MG CAP PO SCH ×2 (09:49→20:52)
[2020-12-17] MEDS: buPROPion **XL** TABLET 150MG (WELLBUTRIN XL) PO SCH (09:49)
[2020-12-17] MEDS: APIXABAN 5 MG TAB (ELIQUIS) PO SCH ×2 (09:49→20:51)
[2020-12-17] MEDS: LACTOBACILLUS ACIDOPHILUS CAP (BACID) PO SCH ×3 (09:49→17:09)
[2020-12-17] MEDS: CALCITRIOL 0.25 MCG CAP (S0169) PO SCH (09:50)
[2020-12-17] MEDS: BACLOFEN 10 MG TAB PO SCH ×2 (09:50→20:52)
[2020-12-17] MEDS: ASPIRIN 81MG ENTERIC TABLET PO SCH (09:50)
[2020-12-17] MEDS: METOPROLOL SUCC (TopROL XL) 100MG *XL* TAB PO SCH (09:50)
--- NOTE | 2020-12-17 12:34 | IPN ---
PROGRESS NOTE DATE: 12/17/2020 SUBJECTIVE: Jovanny is seen and examined this morning at the bedside. He complains of recurrent watery diarrhea. A C. difficile PCR was ordered but was not completed because it did not meet the testing requirements. The patient has no other complaints. His blood pressures have been uncontrolled and I am adjusting his antihypertensive regimen today. He had labs done yesterday but not today. OBJECTIVE: VITAL SIGNS: Temperature is 97.6, pulse is 65, respiratory rate is 18, blood pressure is 170/82, saturating 95% on room air. INTAKE AND OUTPUT: Intake yesterday was 1500, urine output yesterday was recorded as two voids plus 600 ml of urine. Weight on the bed scale today is 115.1 kg which is stable as compared to prior days. GENERAL: Patient is seen lying in bed, awake, alert, oriented, comfortable, in no distress. HEENT: Extraocular muscles are intact. Tongue is moist. Mucous membranes are moist. NECK: Supple. Jugular veins are not elevated. HEART: Heart sounds are regular S1 and S2. EXTREMITIES: There is no edema of the lower extremities. The left lower extremity is fully wrapped in compressive dressings up until the point of his amputation and I was unable to assess for edema on the left lower extremity with the dressings. The right lower extremity has no edema. LUNGS: Clear to auscultation. No crackles, rales or rhonchi. ABDOMEN: Soft, obese and nontender. NEUROLOGIC: He is at baseline mentation, oriented x4. No focal deficits. LABORATORY DATA: Laboratory studies done yesterday showed a sodium of 142, potassium of 4.9, bicarbonate 25, BUN 25, creatinine 2.0. Hemoglobin is 10.8. INPATIENT MEDICATIONS: I ordered Imdur extended release 30 mg q.a.m. The remainder of medications are unchanged as compared to yesterday. PROBLEMS: 1. CKD Stage IIIB (proteinuric) secondary to diabetic nephropathy. Patient has mild fluctuation in his renal function. He is continued on RUPAL inhibitor therapy in the setting of his known diabetic nephropathy and proteinuria. We will keep an eye on his renal function especially given that he is having a complaint of diarrhea. Okay to continue Lisinopril at this point. I ordered a renal panel for tomorrow. 2. Hyperkalemia, potassium is in the upper limits of normal, 4.9 on the latest labs. He is on a regular diet. Renal panel is ordered for tomorrow. If there is any further increase in his potassium level I will change him to a low potassium diet. 3. Uncontrolled hypertension, systolic blood pressure has been 150s to 180s. I added Imdur 30 mg daily. He continues on hydralazine, metoprolol and Lisinopril. 4. Osteomyelitis of the right foot. He continues on Cefazolin managed by the primary team along with local wound care.
[2020-12-17 13:11] VITALS: BP 160/69
[2020-12-17] MEDS: ACETAMINOPHEN TAB 650MG DOSE (2X325MG) PO PRN (17:10)
[2020-12-17 17:11] VITALS: BP 169/77
[2020-12-17] MEDS: ATORVASTATIN 10 MG TAB PO SCH (20:51)
[2020-12-17] MEDS: LEVEMIR (INSULIN DETEMIR) 1 UNITS/0.01ML SC SCH (20:52)
[2020-12-18] MEDS: **hydrALAZINE HCL** 25 MG TAB PO SCH ×3 (00:26→12:49)
[2020-12-18] MEDS: ceFAZolin SOD 2 GM in IV 1 EA IV SCH (05:40)
[2020-12-18] MEDS: SODIUM CHLORIDE 0.9% INJ 10 ML SYR IV SCH (05:42)
[2020-12-18] MEDS: oxyCODONE 5MG TAB PO PRN ×2 (05:53→12:50)
[2020-12-18 06:00] VITALS: BP 166/78
[2020-12-18 06:37] LABS: C REACTIVE PROTEIN QUANTITATIV 0.3 MG/DL (0.00-0.30); CALCIUM LEVEL 9.1 MG/DL (8.8-10.2); CREATININE FOR GFR 1.85 MG/DL (0.70-1.30); GLOMERULAR FILTRATION RATE 39.9 (>49); POTASSIUM SERUM 4.8 MEQ/L (3.5-5.1)
[2020-12-18] MEDS: SODIUM CHLORIDE 0.9% INJ 10 ML SYR IV PRN (06:45)
[2020-12-18] MEDS: HumaLOG INSULIN (NovoLOG) PER UNIT SC SCH ×2 (07:30→12:48)
--- NOTE | 2020-12-18 08:38 | IPN ---
INFECTIOUS DISEASE PROGRESS NOTE DATE: 12/17/2020 SUBJECTIVE: Jovanny is doing well. He is going tomorrow to [facility] for rehabilitation and to finish IV antibiotics. He has no fever or chills, no nausea, vomiting or diarrhea. He has been afebrile, tolerating Cefazolin at 2 grams IV every 12 hours. OBJECTIVE: VITAL SIGNS: Temperature is 97.6, pulse is 65, respirations 18, blood pressure 170/82, O2 sat is 95% on room air. EXTREMITIES: Right foot no erythema, redness or edema. Amputation of first toe, second toe is deviated to the right. There is minimal erythema and swelling. No discharge. No tenderness. Decreased sensation to the foot. LABORATORY DATA: White count on 12/16 was 10.3, hemoglobin 10.8, hematocrit 35.6, platelets are 545,000, 71% neutrophils, 16% lymphocytes, 4% monocytes. Blood culture from 12/06: One out of three was positive for MSSA. IMPRESSION: 1. MSSA bacteremia from cellulitis and osteomyelitis of the right second toe, doing much better. Patient to finish two weeks of IV antibiotics on December 21. He can then be switched to p.o. Keflex 1 gram p.o. t.i.d. for another week while waiting for amputation of the second toe. 2. Acute osteomyelitis of the second toe. Patient would like the toe amputated as it has been causing problems with recurrent infections. 3. Essential hypertension with elevated systolic blood pressure, currently on Lisinopril, Isordil, Hydralazine, Metoprolol and followed up by Nephrology. PLAN: Infectious Disease follow-up. Continue IV Cefazolin until December 21 and switched to Keflex 1 gram p.o. b.i.d. for another week. Patient to follow-up with Dr. Izaguirre as an outpatient. Repeat basic and CRP in the morning.
[2020-12-18] MEDS: HYDROCORTISONE 1% CREAM 30 GM TOP SCH (09:00)
[2020-12-18] MEDS: FLUTICASONE PROP 0.05% NASAL SPRAY 16 GM (FLONASE) SCH (09:00)
[2020-12-18] MEDS: GABAPENTIN 100 MG CAP PO SCH (09:19)
[2020-12-18] MEDS: LACTOBACILLUS ACIDOPHILUS CAP (BACID) PO SCH ×2 (09:19→12:48)
[2020-12-18] MEDS: ISOSORBIDE MON. (IMDUR) 30 MG XR TAB PO SCH (09:21)
[2020-12-18] MEDS: BACLOFEN 10 MG TAB PO SCH (09:21)
[2020-12-18] MEDS: buPROPion **XL** TABLET 150MG (WELLBUTRIN XL) PO SCH (09:21)
[2020-12-18] MEDS: APIXABAN 5 MG TAB (ELIQUIS) PO SCH (09:21)
[2020-12-18] MEDS: ASPIRIN 81MG ENTERIC TABLET PO SCH (09:22)
[2020-12-18] MEDS: METOPROLOL SUCC (TopROL XL) 100MG *XL* TAB PO SCH (09:22)
[2020-12-18] MEDS: VITAMIN D 1,000 INTERNATIONAL UNITS TABLET PO SCH (09:23)
[2020-12-18] MEDS: oxyCODONE 20 MG CR TAB PO SCH (09:25)
[2020-12-18] MEDS ORDERED: GABA-1171 PO (11:38)
[2020-12-18] MEDS ORDERED: RISATAB3 PO (11:38)
[2020-12-18] MEDS ORDERED: ISOS1TAB35 PO (11:38)
[2020-12-18] MEDS ORDERED: HYDR-3911 PO (11:38)
[2020-12-18] MEDS ORDERED: LISI20TA33 PO (11:38)
[2020-12-18 12:49] VITALS: BP 172/81
[2020-12-18] MEDS ORDERED: CEPH500T PO (13:08)
[2020-12-18] MEDS: ACETAMINOPHEN TAB 650MG DOSE (2X325MG) PO PRN (14:40)
== END 2020-12-18 14:44 | DRG 638 ==
LOC: M ED 21:27 → M ED INP 21:28 → UNDOADMIN 21:28 → ENRESERV 12-06 12:45 → M PCU 12-06 13:52 → M MSPAV 12-07 01:37
PROVIDERS: ADMIT Internal Medicine; ATTEND Internal Medicine
PROC: 02HV33Z Insertion of Infusion Device into Superior Vena Cava, Percutaneous Approach (ICD-10-PCS; 2020-12-07)
PROC: 0YJ Anatomical Regions, Lower Extremities, Inspection (ICD-10-PCS; principal; 2020-12-07 11:00)
DX: E11.69 Type 2 diabetes mellitus with other specified complication (principal); L03.115 Cellulitis of right lower limb; M86.171 Other acute osteomyelitis, right ankle and foot; N17.9 Acute kidney failure, unspecified; N18.32 Chronic kidney disease, stage 3b; N25.81 Secondary hyperparathyroidism of renal origin; D64.9 Anemia, unspecified; R16.1 Splenomegaly, not elsewhere classified; M54.2 Cervicalgia; M54.5 Low back pain; E11.40 Type 2 diabetes mellitus with diabetic neuropathy, unspecified; E11.22 Type 2 diabetes mellitus with diabetic chronic kidney disease; I13.10 Hypertensive heart and chronic kidney disease without heart failure, with stage 1 through stage 4 chronic kidney disease, or unspecified chronic kidney disease; G47.33 Obstructive sleep apnea (adult) (pediatric); D45 Polycythemia vera; F32.9 Major depressive disorder, single episode, unspecified; E66.9 Obesity, unspecified; Z68.31 Body mass index [BMI] 31.0-31.9, adult; E11.51 Type 2 diabetes mellitus with diabetic peripheral angiopathy without gangrene; J44.9 Chronic obstructive pulmonary disease, unspecified; E87.5 Hyperkalemia; L27.0 Generalized skin eruption due to drugs and medicaments taken internally; B95.61 Methicillin susceptible Staphylococcus aureus infection as the cause of diseases classified elsewhere; E11.65 Type 2 diabetes mellitus with hyperglycemia; E11.621 Type 2 diabetes mellitus with foot ulcer; L97.519 Non-pressure chronic ulcer of other part of right foot with unspecified severity; Z79.01 Long term (current) use of anticoagulants; Z79.899 Other long term (current) drug therapy; Z79.4 Long term (current) use of insulin; Z79.82 Long term (current) use of aspirin; Z91.048 Other nonmedicinal substance allergy status; Z86.711 Personal history of pulmonary embolism; Z89.512 Acquired absence of left leg below knee; Z79.891 Long term (current) use of opiate analgesic; Z87.891 Personal history of nicotine dependence; Z88.8 Allergy status to other drugs, medicaments and biological substances; Z86.718 Personal history of other venous thrombosis and embolism

== ENCOUNTER → 2021-01-18 | Outpatient (CLI) | payer MEDICARE, MEDICAID ==
[~2021-01-18] MED LIST changes: +ALLO300T2 PO; +CALC1CAP31 PO; +CEPH500T PO; +D31000TA2 PO; +HYDR-3911 PO; +ISOS1TAB35 PO; +LISI30TA4 PO; +METO1TAB33 PO; +NEUR100C PO; +OXYC20TA40 PO; +RISATAB3 PO
== END ==
LOC: M LABSMTC 09:49
PROVIDERS: ATTEND Anesthesiology
DX: Z01.818 Encounter for other preprocedural examination (principal); Z20.822 Contact with and (suspected) exposure to COVID-19

== ENCOUNTER 2021-01-23 10:51 | Observation (INO) | payer MEDICARE, MEDICAID ==
[~2021-01-23] VITALS: Ht 195.6 cm; Wt 117.9 kg
[~2021-01-23 10:51] MED LIST changes: +BUPIVACAINE HCL 0.5% 30 ML VIAL As Ordered ONE; +LIDOCAINE 1% SDV 30ML VIAL As Ordered ONE; +ceFAZolin SOD 1 GM in D5W MINI-BAG PLUS 50 ML IV ONE; +ceFAZolin SOD 2 GM in IV 1 EA IV ONE; +dexameTHASONE 4 MG/ML 1ML VIAL (J1100 PER 1MG) As Ordered ONE
[2021-01-23 11:34] LABS: HEMOGLOBIN 14.5 g/dl (13.5-17.5); MEAN CORPUSCULAR HEMOGLOBIN 24.7 pg (27.0-33.0); MEAN CORPUSCULAR HGB CONC 30.2 g/dl (32.0-36.5); MEAN CORPUSCULAR VOLUME 81.9 fl (80.0-96.0); PLATELET COUNT, AUTOMATED 605 10^3/uL (150-450); RED BLOOD COUNT 5.86 10^6/uL (4.30-6.10); WHITE BLOOD COUNT 12.8 10^3/uL (4.0-10.0)
[2021-01-23 11:57] LABS: CREATININE FOR GFR 2.28 MG/DL (0.70-1.30); GLOMERULAR FILTRATION RATE 31.3 (>49); POTASSIUM SERUM 4.3 MEQ/L (3.5-5.1)
[2021-01-23] MEDS ORDERED: propofoL 200 MG/20 ML VIAL As Ordered ONE ×2 (12:24→13:30)
[2021-01-23] MEDS ORDERED: LIDOCAINE 2% 100MG/5ML SDV (FOR ANES.) As Ordered ONE (12:24)
[2021-01-23] MEDS ORDERED: fentaNYL 100 MCG/2 ML INJECTION (J3010) As Ordered ONE (12:25)
[2021-01-23] MEDS ORDERED: MIDAZOLAM INJ 2MG/2ML VIAL (J2250 PER 1MG) As Ordered ONE (12:25)
[2021-01-23] MEDS ORDERED: ACETAMINOPHEN 1000MG 100ML IV BTL (OFIRMEV) (J0131 PER 10MG) As Ordered ONE (13:13)
[2021-01-23] MEDS ORDERED: hydrALAZINE 20MG/ML 1ML VIAL (J0360 PER 20MG) As Ordered ONE (13:28)
[2021-01-23] MEDS ORDERED: HumaLOG INSULIN (NovoLOG) PER UNIT SC ONE (14:00)
[2021-01-23] MEDS ORDERED: oxyCODONE 5MG TAB PO PRN ×2 (14:00→18:20)
[2021-01-23] MEDS ORDERED: fentaNYL 100 MCG/2 ML INJECTION (J3010) IV PRN (14:00)
[2021-01-23] MEDS: LR 1,000 ML IV SCH ×2 (14:05→15:10)
[2021-01-23] MEDS ORDERED: MOM 30ML SUSPENSION UDC PO PRN (14:40)
[2021-01-23] MEDS ORDERED: MAALOX 30 ML SUSP *UDC PO PRN (14:40)
--- NOTE | 2021-01-23 14:52 | HPEPDOC ---
[facility] Medical History & Physical Date of Admission Jan 23, 2021 Date of Service: Jan 23, 2021 History and Physical CHIEF COMPLAINT: Postop right second toe amputation for osteomyelitis HISTORY OF PRESENT ILLNESS: 60-year-old male with a past medical history of polycythemia vera, hypertensive heart disease, splenomegaly history of right upper extremity DVT and PE, has sicca CKD stage IV, nephrotic syndrome, depression, SARAH, type 2 diabetes, left foot BKA due to chronic osteomyelitis, history of gout history of GERD history chronic back pain was admitted to hospital service after amputation of the second toe on the right foot due to osteomyelitis by Dr. Izaguirre. Per Dr. Izaguirre, patient needs home safety evaluation prior to discharge. Patient is seen in the PACU postop after extubation. He is still somnolent but states that he has no chest pain shortness of breath cavitations nausea vomiting diarrhea. He is alert and oriented. Vitals are appropriate. Patient be admitted to hospitalist service. Home safety ev aluation be performed prior to discharge. Dr. Aguillon is informing that he does not believe the patient needs p.o. antibiotics on discharge. He received a single dose of IV cefazolin perioperatively. PAST MEDICAL HISTORY: Recently diagnosed JAK2 + polycythemia vera (he receives phlebotomy weekly), hypertensive heart disease, splenomegaly, Hx of RUE DVT & PE, CKD3/4 ( he has a nephrotic syndrome and history of anasarca), SARAH, Depression, IDDM w neuropathy, s/p L BKA (had L chronic foot ulcer that progressed to chronic osteomyelitis after stepping on a metal hayder), hx of Gout, GERD, Chronic back pain / DJD, Tonsillectomy, Ventral hernia repair w mesh placement, Inguinal hernia repair, Knee surgery, R hallux amputation SOCIAL HISTORY: Former smoker Denies alcohol use Uses medical marijuana FAMILY HISTORY: Father had a history of diabetes, There is had history of CAD a pacemaker and diabetes ALLERGIES: Please see below. REVIEW OF SYSTEMS: 10 point ROS conducted, relevant findings are noted in HPI HOME MEDICATIONS: Please see below. PHYSICAL EXAMINATION: VITAL SIGNS: please see below General: NAD, comfortable HEENT: PERRLA, EOMI, sclerae clear Neck: supple, normal ROM, no JVD Respiratory: lungs CTAB, no wheeze, no rales, no crackles CVS: RRR, normal S1, S2, no murmurs Abdo: soft, no masses, no hepatosplenomegaly, BS+, no rebound tenderness Extremities: Left BKA. MSK: Right foot dressed post OR dressing is clean and intact. Pulses intact Neuro: no focal neuro deficits, moving all 4 extremities, CN2-12 intact. Strength 5/5 in all 4 extremities. No nystagmus. Psych: calm, cooperative, AAO x 3 LABORATORY DATA: See below. MICROBIOLOGY: Please see below. ASSESSMENT: 60-year-old male with a past medical history of polycythemia vera, hypertensive heart disease, splenomegaly history of right upper extremity DVT and PE, has sicca CKD stage IV, nephrotic syndrome, depression, SARAH, type 2 diabetes, left foot BKA due to chronic osteomyelitis, history of gout history of GERD history chronic back pain was admitted to hospital service after amputation of the second toe on the right foot due to osteomyelitis by Dr. Izaguirre. Per Dr. Izaguirre, patient needs home safety evaluation prior to discharge. Patient is seen in the PACU postop after extubation. He is still somnolent but states that he has no chest pain shortness of breath cavitations nausea vomiting diarrhea. He is alert and oriented. Vitals are appropriate. Patient be admitted to hospit alist service. Home safety evaluation be performed prior to discharge. Dr. Aguillon is informing that he does not believe the patient needs p.o. antibiotics on discharge. He received a single dose of IV cefazolin perioperatively. . PLAN: RLE cellulitis s/p amputation of R 2nd toe: POD #[address] Izaguirre. Needs home safety eval prior to DC. CKD4: follows with Dr. Ball. Avoid nephrotoxins. Cr 2.28. Last Cr range 1.85 to 2.23. Appears to be at baseline. Avoid nephrotoxins. Will give gentle IVF 500 cc at 80 cc/hr. Hx of RUE DVT and PE: resume eliquis DM2: ISS AC and HS. Hypoglycemic precautions. Hypertensive heart disease: resume home meds. Last echo 05/2020: LVEF 50-55%. Normal LV size, moderate LVH. SARAH: uses CPAP at home. Will provide nocturnal O2. Chronic DJD, back pain: resume home pain regimen Obesity: complicates care. BMI 30.8. Vital Signs Vital Signs Date Time Temp Pulse Resp B/P (MAP) Pulse Ox O2 Delivery O2 Flow Rate FiO2 01/23/21 11:40 98.1 74 18 179/93 (121) 96 Room Air Laboratory Data Labs 24H Laboratory Tests 2 01/23/21 11:12: Nucleated Red Blood Cells % (auto) 0.0, Anion Gap 5L, Glomerular Filtration Rate 31.3L, Calcium Level 9.0 01/23/21 12:23: Bedside Glucose (Misc Panel) 278H 01/23/21 13:45: Bedside Glucose (Misc Panel) 266H CBC/BMP Laboratory Tests 01/23/21 11:12 Home Medications Scheduled Apixaban (Eliquis) 5 Mg Tablet, 5 MG PO BID Aspirin (Aspirin EC) 81 Mg Tablet.dr, 81 MG PO DAILY Bupropion HCl (Bupropion Xl) 150 Mg Tab.er.24h, 150 MG PO DAILY Calcitriol (Calcitriol) 0.25 Mcg Capsule, 0.25 MCG PO 3XW THURSDAY, THURSDAY AND THURSDAY Gabapentin (Neurontin) 100 Mg Capsule, 100 MG PO TID Hydralazine HCl (Hydralazine HCl) 25 Mg Tablet, 1 TAB PO TID Insulin Detemir (Levemir) 100 Unit/1 Ml Vial, 14 UNITS SC BID Levocetirizine Dihydrochloride (Levocetirizine Dihydrochloride) 5 Mg Tablet, 5 MG PO QHS Lisinopril (Lisinopril) 30 Mg Tablet, 30 MG PO DAILY Metoprolol Succinate (Metoprolol Succinate) 100 Mg Tab.er.24h, 100 MG PO DAILY Omeprazole (Omeprazole) 20 Mg Capsule.dr, 20 MG PO DAILY Oxycodone HCl (Oxycontin) 20 Mg Tab.er.12h, 20 MG PO Q12H Torsemide (Torsemide) 20 Mg Tablet, 20 MG PO DAILY allopurinoL (allopurinoL) 300 Mg Tablet, 300 MG PO DAILY Scheduled PRN Acetaminophen (Acetaminophen) 325 Mg Tablet, 650 MG PO Q4H PRN for MILD PAIN or TEMP > 101 Oxycodone Hcl (Oxycodone HCl) 15 Mg Tablet, 15 MG PO Q4H PRN for PAIN Allergies Coded Allergies: povidone-iodine (Verified Allergy, Unknown, 01/17/21) soap (Verified Allergy, Unknown, 01/17/21) A-FIB/CHADSVASC A-FIB History Current/History of A-Fib/PAF?: No COBY FALLON MD Jan 23, 2021 14:52
[2021-01-23 15:00] VITALS: BP 159/86
[2021-01-23 15:30] VITALS: BP 158/88
[2021-01-23 16:30] VITALS: BP 159/87
[2021-01-23 17:23] VITALS: BP 158/86
[2021-01-23] MEDS: ACETAMINOPHEN TAB 650MG DOSE (2X325MG) PO PRN (17:25)
[2021-01-23] MEDS ORDERED: DEXTROSE 50% 50 ML SYRINGE IV PRN (17:50)
[2021-01-23] MEDS ORDERED: GLUCAGON INJ 1MG VIAL SC PRN (17:50)
[2021-01-23] MEDS ORDERED: GLUCOSE 4GM CHEW TABLET PO PRN (17:50)
[2021-01-23] MEDS ORDERED: MORPHINE 4 MG/ML 1ML VIAL/SYRINGE (J2270) IV PRN (17:50)
[2021-01-23] MEDS: HumaLOG INSULIN (NovoLOG) PER UNIT SC SCH (18:10)
[2021-01-23 18:30] VITALS: BP 157/88
[2021-01-23] MEDS: LEVEMIR (INSULIN DETEMIR) 1 UNITS/0.01ML SC SCH (20:35)
[2021-01-23] MEDS: APIXABAN 5 MG TAB (ELIQUIS) PO SCH (20:36)
[2021-01-23] MEDS: oxyCODONE 10 MG CR TAB PO SCH (20:36)
[2021-01-23] MEDS ORDERED: HumaLOG INSULIN (NovoLOG) PER UNIT SC SCH (21:00)
[2021-01-23] MEDS ORDERED: HOME MED LIST COMPLETE! XX SCH (21:50)
[2021-01-23 22:00] VITALS: BP 152/85
[2021-01-23] MEDS ORDERED: HEPARIN SOD (PORCINE) 5000UNITS/ML 1ML VIAL/SYRINGE SC SCH (22:00)
[2021-01-24 06:00] VITALS: BP 163/83
[2021-01-24 06:44] LABS: BASO # 0.2 10^3/uL (0.0-0.2); BASO % 1.7 % (0.0-1.0); EOS # 0.6 10^3/uL (0.0-0.5); EOS % 5.2 % (0.0-3.0); HEMATOCRIT 42.6 % (42.0-52.0); HEMOGLOBIN 12.9 g/dl (13.5-17.5); LYMPH # 1.7 10^3/uL (1.5-5.0); LYMPH % 15.7 % (24.0-44.0); MEAN CORPUSCULAR HEMOGLOBIN 24.6 pg (27.0-33.0); MEAN CORPUSCULAR HGB CONC 30.3 g/dl (32.0-36.5); MEAN CORPUSCULAR VOLUME 81.3 fl (80.0-96.0); MONO # 0.5 10^3/uL (0.0-0.8); MONO % 4.4 % (2.0-8.0); NEUTROPHILS # 7.9 10^3/uL (1.5-8.5); NEUTROPHILS % 71.6 % (36.0-66.0); RED BLOOD COUNT 5.24 10^6/uL (4.30-6.10); WHITE BLOOD COUNT 11.1 10^3/uL (4.0-10.0)
[2021-01-24 06:46] LABS: PLATELET COUNT, AUTOMATED 505 10^3/uL (150-450)
[2021-01-24 07:04] LABS: CALCIUM LEVEL 8.9 MG/DL (8.8-10.2); CREATININE FOR GFR 2.17 MG/DL (0.70-1.30); GLOMERULAR FILTRATION RATE 33.2 (>49); MAGNESIUM LEVEL 2.1 MG/DL (1.8-2.4); POTASSIUM SERUM 4.4 MEQ/L (3.5-5.1)
--- NOTE | 2021-01-24 07:52 | ECGEPIP ---
[facility] Test Date: 2021-01-23 Pat Name: LOGAN CHRISTIANSON Department: Room: - Gender: Male [employer] Supervisor: RF : [id number] Requested By: MATTHEW RUIZ Order Number: [id number] Reading MD: Murali Guy Measurements Intervals [place] Rate: 67 P: -21 CA: 162 QRS: 38 QRSD: 102 T: 40 QT: 410 QTc: 433 Interpretive Statements Sinus rhythm with frequent premature ventricular complexes Q wave in III of undetermined significance Compared to prior tracing of 12/05/2020, Q wave and PVCs are new Electronically Signed on 01-24-2021 7:51:47 EDT by Murali Guy
[2021-01-24] MEDS: LEVEMIR (INSULIN DETEMIR) 1 UNITS/0.01ML SC SCH (08:09)
[2021-01-24] MEDS: oxyCODONE 10 MG CR TAB PO SCH (08:10)
[2021-01-24] MEDS: HumaLOG INSULIN (NovoLOG) PER UNIT SC SCH ×2 (08:10→12:08)
[2021-01-24] MEDS: ACETAMINOPHEN TAB 650MG DOSE (2X325MG) PO PRN (08:12)
[2021-01-24] MEDS: APIXABAN 5 MG TAB (ELIQUIS) PO SCH (08:13)
[2021-01-24] MEDS ORDERED: GABAPENTIN 100 MG CAP PO SCH (09:00)
[2021-01-24] MEDS ORDERED: TORSEMIDE 20 MG TAB PO SCH (09:00)
[2021-01-24] MEDS ORDERED: buPROPion **XL** TABLET 150MG (WELLBUTRIN XL) PO SCH (09:00)
[2021-01-24] MEDS ORDERED: OMEPRAZOLE 20 MG CAP PO SCH (09:00)
[2021-01-24] MEDS ORDERED: allopurinoL 300 MG TAB PO SCH (09:00)
[2021-01-24] MEDS ORDERED: METOPROLOL SUCC (TopROL XL) 100MG *XL* TAB PO SCH (09:00)
[2021-01-24] MEDS ORDERED: ASPIRIN 81MG ENTERIC TABLET PO SCH (09:00)
--- NOTE | 2021-01-24 10:11 | RO ---
OPERATIVE NOTE DATE OF OPERATION: 01/23/2021 PREOPERATIVE DIAGNOSIS: Right second toe deformity, osteomyelitis. POSTOPERATIVE DIAGNOSIS: Right second toe deformity, osteomyelitis. PROCEDURE: Right second toe amputation SURGEON: Manish Izaguirre DPM GOLF CADDY: ANESTHESIA: Monitored anesthesia care. PREOPERATIVE INJECTIONS: 10 mL of 1:1 mixture of 1% lidocaine plain and 0.5% Marcaine plain. ESTIMATED BLOOD LOSS: Minimum. MATERIALS: 3-0 nylon SPECIMENS: Right second toe. COMPLICATIONS: None. CONDITION: Stable. INDICATIONS: Jovanny Herrera is a 60-year-old diabetic male who has deformed right second toe with history of osteomyelitis presents today for amputation of the toe. The patient's side and site were identified and marked in the preoperative area. Consent was reviewed and obtained. Risks, complications and alternatives of the procedure were explained to the patient in detail, all questions were answered. DESCRIPTION OF PROCEDURE: The patient was brought to the operating room and placed on the operating room table in supine position. Monitored anesthesia care was delivered by the anesthesia team. Preoperative injection of 10 mL of 1:1 mixture of 1% lidocaine with 0.5 % Marcaine were injected in the right foot. The right foot was prepped and draped in the usual sterile fashion. A tourniquet was applied, though it was not utilized during the procedure. An incision was made with a 15 blade. The toe was disarticulated at the metatarsal phalangeal joint, The toe sent for pathology that was irrigated with saline. Incision was repaired with 3-0 nylon. Sterile dressings were applied. The patient was brought to the PACU with vital signs stable with neurovascular status intact. He is weightbearing as tolerated. Due to transportation issues, he will be admitted overnight for observation.
[2021-01-24 10:23] VITALS: BP 170/90
[2021-01-24] MEDS ORDERED: **hydrALAZINE HCL** 25 MG TAB PO ONE (12:00)
[2021-01-24] MEDS ORDERED: ACET1TAB55 PO (12:46)
--- NOTE | 2021-01-24 12:49 | DS.PDOC ---
Discharge Summary General Date of Admission Jan 23, 2021 at 10:52 Date of Discharge 01/24/21 Discharge Summary PROCEDURES PERFORMED DURING STAY: DATE OF OPERATION: 01/23/2021 PREOPERATIVE DIAGNOSIS: Right second toe deformity, osteomyelitis. POSTOPERATIVE DIAGNOSIS: Right second toe deformity, osteomyelitis. PROCEDURE: Right second toe amputation SURGEON: Manish Izaguirre DPM INFORMATION STRATEGIST: ANESTHESIA: Monitored anesthesia care. PREOPERATIVE INJECTIONS: 10 mL of 1:1 mixture of 1% lidocaine plain and 0.5% Marcaine plain. ESTIMATED BLOOD LOSS: Minimum. ADMITTING DIAGNOSES: Right lower extremity cellulitis status post amputation of right second toe History of CKD stage IV History of type 2 diabetes History of right upper extremity DVT on Eliquis Treated PE on Eliquis Hypertensive heart disease SARAH on CPAP Chronic DJD Obesity BMI 30.8 DISCHARGE DIAGNOSES: Right lower extremity cellulitis status post amputation of right second toe History of CKD stage IV History of type 2 diabetes History of right upper extremity DVT on Eliquis Treated PE on Eliquis Hypertensive heart disease SARAH on CPAP Chronic DJD Obesity BMI 30.8 COMPLICATIONS/CHIEF COMPLAINT: Amputated Toe Of Right Foot. HISTORY OF PRESENT ILLNESS: 60-year-old male with a past medical history of polycythemia vera, hypertensive heart disease, splenomegaly history of right upper extremity DVT and PE, has sicca CKD stage IV, nephrotic syndrome, depression, SARAH, type 2 diabetes, left foot BKA due to chronic osteomyelitis, history of gout history of GERD history chronic back pain was admitted to hospital service after amputation of the second toe on the right foot due to osteomyelitis by Dr. Izaguirre. Per Dr. Izaguirre, patient needs home safety evaluation prior to discharge. Patient is seen in the PACU postop after extubation. He is still somnolent but states that he has no chest pain shortness of breath cavitations nausea vomiting diarrhea. He is alert and oriented. Vitals are appropriate. Patient be admitted to hospitalist service. Home safety evaluation be performed prior to discharge. Dr. Aguillon is informing that he does not believe the patient needs p.o. antibiotics on discharge. He received a single dose of IV cefazolin perioperatively. HOSPITAL COURSE: RLE cellulitis s/p amputation of R 2nd toe: POD #[address] Izaguirre. Patient evaluated by physical therapy. Okay to go home with walker. CKD4: follows with Dr. Ball. Avoid nephrotoxins. Cr 2.28. Last Cr range 1.85 to 2.23. Appears to be at baseline. Avoid nephrotoxins. Received gentle hydration with IV so normal saline. Creatinine trended down to 2.17. Hx of RUE DVT and PE: resume eliquis DM2: ISS AC and HS. Hypoglycemic precautions. Hypertensive heart disease: resume home meds. Last echo 05/2020: LVEF 50-55%. Normal LV size, moderate LVH. BP elevated after hydralazine 25 mg 3 times daily to regimen. Blood pressure improved after administration. Continue with metoprolol 100 mg p.o. daily. Torsemide 20 mg p.o. daily. SARAH: uses CPAP at home. Chronic DJD, back pain: resume home pain regimen Obesity: complicates care. BMI 30.8. DISCHARGE MEDICATIONS: Please see below. ALLERGIES: Please see below. PHYSICAL EXAMINATION ON DISCHARGE: VITAL SIGNS: please see below General: NAD, comfortable HEENT: PERRLA, EOMI, sclerae clear Neck: supple, normal ROM, no JVD Respiratory: lungs CTAB, no wheeze, no rales, no crackles CVS: RRR, normal S1, S2, no murmurs Abdo: soft, no masses, no hepatosplenomegaly, BS+, no rebound tenderness Extremities: Left BKA. MSK: Right foot dressed post OR dressing is clean and intact. Pulses intact Neuro: no focal neuro deficits, moving all 4 extremities, CN2-12 intact. Strength 5/5 in all 4 extremities. No nystagmus. Psych: calm, cooperative, AAO x 3 LABORATORY DATA: Please see below. PROGNOSIS: Good ACTIVITY: Walk with walker DIET: Consistent carbohydrate diet DISCHARGE PLAN: Follow-up with Dr. Acevedo in 1 week in his clinic. Added to hydralazine 25 mg 3 times daily for improved blood pressure control. Patient advised he can drive without the surgical boot and to attach it once he is at home. DISPOSITION: Home. Patient not a catheter for home health services per agency due to inappropriate behavior. DISCHARGE INSTRUCTIONS: . Please follow-up with your primary care doctor within 3-5 days . Please follow-up with pallet sorter, Dr. Izaguirre within 1-2 weeks . Please taking medications as prescribed. . If you develop bleeding, chest pain, shortness of breath, seizures, nausea, fevers, or otherwise worsening of your symptoms, please call 911 or return to the nearest emergency room ITEMS TO FOLLOWUP ON ON OUTPATIENT: Follow pathology report DISCHARGE CONDITION: Stable TIME SPENT ON DISCHARGE: 35 minutes Vital Signs/I&Os Vital Signs Date Time Temp Pulse Resp B/P (MAP) Pulse Ox O2 Delivery O2 Flow Rate FiO2 01/24/21 12:09 170/90 01/24/21 10:23 98.0 61 18 96 Room Air I&O- Last 24 Hours up to 6 AM 01/24/21 06:00 Intake Total 1945 ml Output Total 950 ml Balance 995 ml Laboratory Data Labs 24H Laboratory Tests 2 01/23/21 13:45: Bedside Glucose (Misc Panel) 266H 01/23/21 16:42: Bedside Glucose (Misc Panel) 316H 01/23/21 20:03: Bedside Glucose (Misc Panel) 279H 01/24/21 06:07: Immature Granulocyte % (Auto) 1.4, Neutrophils (%) (Auto) 71.6H, Lymphocytes (%) (Auto) 15.7L, Monocytes (%) (Auto) 4.4, Eosinophils (%) (Auto) 5.2H, Basophils (%) (Auto) 1.7H, Neutrophils # (Auto) 7.9, Lymphocytes # (Auto) 1.7, Monocytes # (Auto) 0.5, Eosinophils # (Auto) 0.6H, Basophils # (Auto) 0.2, Nucleated Red Blood Cells % (auto) 0.0, Anion Gap 5L, Glomerular Filtration Rate 33.2L, Calcium Level 8.9, Magnesium Level 2.1 01/24/21 11:54: Bedside Glucose (Misc Panel) 273H CBC/BMP Laboratory Tests 01/24/21 06:07 FSBS Laboratory Tests Test 01/23/21 13:45 01/23/21 16:42 01/23/21 20:03 01/24/21 11:54 Range/Units Bedside Glucose (Misc Panel) 266 316 279 273 80-115 MG/DL Discharge Medications Scheduled Apixaban (Eliquis) 5 Mg Tablet, 5 MG PO BID, (Reported) Aspirin (Aspirin EC) 81 Mg Tablet.dr, 81 MG PO DAILY, (Reported) Bupropion HCl (Bupropion Xl) 150 Mg Tab.er.24h, 150 MG PO DAILY, (Reported) Calcitriol (Calcitriol) 0.25 Mcg Capsule, 0.25 MCG PO 3XW, (Reported) THURSDAY, THURSDAY AND THURSDAY Gabapentin (Neurontin) 100 Mg Capsule, 100 MG PO TID, (Reported) Hydralazine HCl (Hydralazine HCl) 25 Mg Tablet, 1 TAB PO TID Insulin Detemir (Levemir) 100 Unit/1 Ml Vial, 14 UNITS SC BID, (Reported) Levocetirizine Dihydrochloride (Levocetirizine Dihydrochloride) 5 Mg Tablet, 5 MG PO QHS, (Reported) Lisinopril (Lisinopril) 30 Mg Tablet, 30 MG PO DAILY, (Reported) Metoprolol Succinate (Metoprolol Succinate) 100 Mg Tab.er.24h, 100 MG PO DAILY, (Reported) Omeprazole (Omeprazole) 20 Mg Capsule.dr, 20 MG PO DAILY, (Reported) Oxycodone HCl (Oxycontin) 20 Mg Tab.er.12h, 20 MG PO Q12H, (Reported) Torsemide (Torsemide) 20 Mg Tablet, 20 MG PO DAILY, (Reported) allopurinoL (allopurinoL) 300 Mg Tablet, 300 MG PO DAILY, (Reported) Scheduled PRN Acetaminophen (Acetaminophen) 325 Mg Tablet, 650 MG PO Q4H PRN for MILD PAIN or TEMP > 101 Oxycodone Hcl (Oxycodone HCl) 15 Mg Tablet, 15 MG PO Q4H PRN for PAIN, (Reported) Allergies Coded Allergies: povidone-iodine (Verified Allergy, Unknown, 01/17/21) soap (Verified Allergy, Unknown, 01/17/21) COBY FALLON MD Jan 24, 2021 12:49
[2021-01-24 13:40] VITALS: BP 190/90
[2021-01-24] MEDS ORDERED: **hydrALAZINE** 50 MG TAB PO ONE (13:45)
[2021-01-24 14:00] VITALS: BP 190/90
[2021-01-24 14:30] VITALS: BP 160/100
[2021-01-24] MEDS ORDERED: HYDR25TA PO (15:10)
== END 2021-01-24 15:25 | disposition home health service (06) ==
LOC: M SDC 10:51 → M ED INP 10:52 → M MS5PR 14:50
PROVIDERS: ADMIT Family Medicine; ATTEND Family Medicine
DX: M20.5X1 Other deformities of toe(s) (acquired), right foot (principal); E11.40 Type 2 diabetes mellitus with diabetic neuropathy, unspecified; N18.4 Chronic kidney disease, stage 4 (severe); I13.10 Hypertensive heart and chronic kidney disease without heart failure, with stage 1 through stage 4 chronic kidney disease, or unspecified chronic kidney disease; D45 Polycythemia vera; D47.1 Chronic myeloproliferative disease; R16.1 Splenomegaly, not elsewhere classified; Z86.718 Personal history of other venous thrombosis and embolism; Z86.711 Personal history of pulmonary embolism; K21.9 Gastro-esophageal reflux disease without esophagitis; M54.9 Dorsalgia, unspecified; G47.33 Obstructive sleep apnea (adult) (pediatric); F32.9 Major depressive disorder, single episode, unspecified; N04.9 Nephrotic syndrome with unspecified morphologic changes; Z87.891 Personal history of nicotine dependence; Z79.899 Other long term (current) drug therapy; Z79.82 Long term (current) use of aspirin; Z79.01 Long term (current) use of anticoagulants; Z79.4 Long term (current) use of insulin; Z79.891 Long term (current) use of opiate analgesic; Z88.8 Allergy status to other drugs, medicaments and biological substances; Z91.048 Other nonmedicinal substance allergy status
CPT/HCPCS: 28820; 36415; 80048; 83735; 85025; 85027; 88305; 88311; 93005; 96374; 97162; 97530; G0378; J0131; J0360; J0690; J1100; J2250; J2270; J3010

== ENCOUNTER → 2021-11-21 | Outpatient (REF) | payer MEDICARE, MEDICAID ==
[~2021-11-21] MED LIST changes: +AMLO1TAB25 PO; -BUPIVACAINE HCL 0.5% 30 ML VIAL As Ordered ONE; -D31000TA2 PO; +HYDR50TA PO; -LIDOCAINE 1% SDV 30ML VIAL As Ordered ONE; -LISI10TA15 PO; +LISI10TA24 PO; +OMEP-173 PO; -OMEP-218 PO; +TIZA10TA PO; -TIZA4TAB4 PO; +VITA100093 PO; +VITA1CAP25 PO; -ceFAZolin SOD 1 GM in D5W MINI-BAG PLUS 50 ML IV ONE; -ceFAZolin SOD 2 GM in IV 1 EA IV ONE; -dexameTHASONE 4 MG/ML 1ML VIAL (J1100 PER 1MG) As Ordered ONE
[2021-11-21 18:26] LABS: TOTAL PROTEIN,RANDOM URINE 1380.9 MG/DL (0.0-12.0)
== END ==
LOC: M LAB REF 16:57
PROVIDERS: ATTEND Internal Medicine Nephrology
DX: N18.32 Chronic kidney disease, stage 3b (principal)

== ENCOUNTER 2021-12-09 14:30 | Inpatient (IN) | payer MEDICARE, MEDICAID ==
[~2021-12-09] VITALS: Ht 195.6 cm; Wt 137.1 kg
[~2021-12-09 14:30] MED LIST changes: +NORM0.9I21 IV; -NORM0.9I9 IV
[2021-12-09] MEDS ORDERED: ACETAMINOPHEN 325 MG TAB PO ONE (19:30)
[2021-12-09 20:25] LABS: BASO # 0.2 10^3/uL (0.0-0.2); BASO % 1.4 % (0.0-1.0); EOS # 1.1 10^3/uL (0.0-0.5); EOS % 5.9 % (0.0-3.0); HEMATOCRIT 53.5 % (42.0-52.0); HEMOGLOBIN 15.6 g/dl (13.5-17.5); LYMPH # 1.3 10^3/uL (1.5-5.0); LYMPH % 7.6 % (24.0-44.0); MEAN CORPUSCULAR HEMOGLOBIN 22.1 pg (27.0-33.0); MEAN CORPUSCULAR HGB CONC 29.2 g/dl (32.0-36.5); MEAN CORPUSCULAR VOLUME 75.9 fl (80.0-96.0); MONO # 0.5 10^3/uL (0.0-0.8); MONO % 2.9 % (2.0-8.0); NEUTROPHILS # 14.4 10^3/uL (1.5-8.5); NEUTROPHILS % 81.4 % (36.0-66.0); PLATELET COUNT, AUTOMATED 596 10^3/uL (150-450); WHITE BLOOD COUNT 17.7 10^3/uL (4.0-10.0)
[2021-12-09 20:34] LABS: RED BLOOD COUNT 7.05 10^6/uL (4.30-6.10)
[2021-12-09 20:35] LABS: HEMOGLOBIN A1c 6.6 %
[2021-12-09] MEDS ORDERED: NS 1,000 ML IV ONE ×2 (20:40→22:10)
[2021-12-09 20:53] LABS: ERYTHROCYTE SEDIMENTATION RATE 1 mm/hr (0-20)
[2021-12-09 21:00] LABS: ALBUMIN 2.8 GM/DL (3.2-5.2); BILIRUBIN,DIRECT 0.2 MG/DL (0.0-0.2); BILIRUBIN,TOTAL 0.7 MG/DL (0.2-1.0); C REACTIVE PROTEIN QUANTITATIV 0.54 MG/DL (0.00-0.30); TOTAL PROTEIN 5.8 GM/DL (6.4-8.2)
[2021-12-09] MEDS ORDERED: MORPHINE 4 MG/ML 1ML VIAL/SYRINGE IV ONE (22:20)
[2021-12-10] MEDS ORDERED: MORPHINE 4 MG/ML 1ML VIAL/SYRINGE IV ONE (00:30)
[2021-12-10 01:12] LABS: RSV AMPLIFICATION NEGATIVE (NEGATIVE)
[2021-12-10 01:17] LABS: INR 1.25; PROTHROMBIN TIME 16.1 SECONDS (12.7-14.5)
[2021-12-10 01:18] LABS: PARTIAL THROMBOPLASTIN TIME 36.3 SECONDS (25.9-37.0)
[2021-12-10] MEDS ORDERED: OXYC15TA66 PO (01:32)
[2021-12-10] MEDS ORDERED: HYDR-3911 PO (01:32)
[2021-12-10] MEDS ORDERED: LISI40TA4 PO (01:32)
[2021-12-10] MEDS ORDERED: HOME MED LIST COMPLETE! XX SCH (01:35)
[2021-12-10] MEDS ORDERED: DEXTROSE 50% 50 ML SYRINGE IV PRN (02:50)
[2021-12-10] MEDS ORDERED: GLUCAGON INJ 1MG VIAL SC PRN (02:50)
[2021-12-10] MEDS ORDERED: GLUCOSE 4GM CHEW TABLET PO PRN (02:50)
[2021-12-10] MEDS ORDERED: NS 1,000 ML IV SCH (02:55)
[2021-12-10 04:29] VITALS: BP 142/99
[2021-12-10] MEDS: oxyCODONE 5MG TAB PO PRN (04:46)
[2021-12-10] MEDS ORDERED: cefTRIAXone SOD 1GM VIAL (J0696 PER 250MG) IM SCH (05:45)
[2021-12-10 08:15] LABS: CALCIUM LEVEL 8.9 MG/DL (8.8-10.2); CREATININE FOR GFR 4.08 MG/DL (0.70-1.30); POTASSIUM SERUM 4.5 MEQ/L (3.5-5.1)
[2021-12-10] MEDS: LIDOCAINE 5% (LIDODERM) PATCH TOP SCH (08:49)
[2021-12-10] MEDS: cefTRIAXone SOD 1 GM in D5W MINI-BAG PLUS 50 ML IV SCH (08:51)
[2021-12-10] MEDS: allopurinoL 300 MG TAB PO SCH (08:53)
[2021-12-10] MEDS: ATORVASTATIN 10 MG TAB PO SCH (08:53)
[2021-12-10] MEDS: ASPIRIN 81MG ENTERIC TABLET PO SCH (08:54)
[2021-12-10] MEDS: OMEPRAZOLE 20MG CAP PO SCH (08:54)
[2021-12-10] MEDS: GABAPENTIN 100 MG CAP PO SCH ×3 (08:55→20:30)
[2021-12-10] MEDS: oxyCODONE 15 MG CR TAB PO SCH ×2 (08:55→20:30)
[2021-12-10] MEDS: APIXABAN 5 MG TAB (ELIQUIS) PO SCH ×2 (08:55→20:30)
[2021-12-10] MEDS: **hydrALAZINE** 50 MG TAB PO SCH ×3 (08:57→20:30)
[2021-12-10] MEDS: lisinopriL 40MG TAB PO SCH (08:57)
[2021-12-10] MEDS: INSULIN LISPRO (NovoLOG) PER UNIT SC SCH ×4 (08:58→20:31)
[2021-12-10] MEDS ORDERED: VANCOMYCIN HCL 1,000 MG, VIAL MATE ADAPTER 1 EACH in NS 250 ML IV ONE (09:00)
[2021-12-10] MEDS: VANCOMYCIN HCL 1,000 MG, VIAL MATE ADAPTER 1 EACH in D5W 250 ML IV SCH (11:55)
[2021-12-10 12:08] VITALS: BP 184/96
[2021-12-10 16:53] LABS: HEMATOCRIT 46.8 % (42.0-52.0); HEMOGLOBIN 13.8 g/dl (13.5-17.5); MEAN CORPUSCULAR HEMOGLOBIN 22.6 pg (27.0-33.0); MEAN CORPUSCULAR HGB CONC 29.5 g/dl (32.0-36.5); MEAN CORPUSCULAR VOLUME 76.7 fl (80.0-96.0); WHITE BLOOD COUNT 15.1 10^3/uL (4.0-10.0)
[2021-12-10 17:30] VITALS: BP 188/96
[2021-12-10 17:31] LABS: PLATELET COUNT, AUTOMATED 471 10^3/uL (150-450)
[2021-12-10] MEDS: NS 1,000 ML IV SCH (17:46)
[2021-12-10 18:22] VITALS: BP 180/98
[2021-12-10] MEDS: hydrALAZINE 20MG/ML 1ML VIAL (J0360 PER 20MG) IV PRN (18:26)
[2021-12-10 19:30] VITALS: BP 182/74
[2021-12-10] MEDS: ACETAMINOPHEN TAB 650MG DOSE (2X325MG) PO PRN (20:34)
[2021-12-10] MEDS: **NOTE PATIENT COMMENT** MISC XX SCH (21:11)
[2021-12-11] VITALS (10 sets, daily range): BP systolic 140–198; BP diastolic 62–104
[2021-12-11] MEDS: hydrALAZINE 20MG/ML 1ML VIAL (J0360 PER 20MG) IV PRN ×3 (03:54→17:27)
[2021-12-11] MEDS: NS 1,000 ML IV SCH ×2 (05:31→17:26)
[2021-12-11 06:32] LABS: HEMATOCRIT 49.5 % (42.0-52.0); HEMOGLOBIN 14.5 g/dl (13.5-17.5); MEAN CORPUSCULAR HEMOGLOBIN 22.2 pg (27.0-33.0); MEAN CORPUSCULAR HGB CONC 29.3 g/dl (32.0-36.5); MEAN CORPUSCULAR VOLUME 75.7 fl (80.0-96.0); PLATELET COUNT, AUTOMATED 518 10^3/uL (150-450); RED BLOOD COUNT 6.54 10^6/uL (4.30-6.10); WHITE BLOOD COUNT 15.7 10^3/uL (4.0-10.0)
[2021-12-11] MEDS: cefTRIAXone SOD 1 GM in D5W MINI-BAG PLUS 50 ML IV SCH (06:39)
[2021-12-11 07:11] LABS: ALBUMIN 2.3 GM/DL (3.2-5.2); ALT/SGPT 16 U/L (12-78); BILIRUBIN,TOTAL 0.4 MG/DL (0.2-1.0); BLOOD UREA NITROGEN 34 MG/DL (7-18); CALCIUM LEVEL 9.6 MG/DL (8.8-10.2); CARBON DIOXIDE LEVEL 20 MEQ/L (21-32); CHLORIDE LEVEL 117 MEQ/L (98-107); CREATININE FOR GFR 3.84 MG/DL (0.70-1.30); GLOMERULAR FILTRATION RATE 17.1 (>49); GLUCOSE, FASTING 174 MG/DL (70-100); POTASSIUM SERUM 4.7 MEQ/L (3.5-5.1); SODIUM LEVEL 143 MEQ/L (136-145); TOTAL PROTEIN 4.7 GM/DL (6.4-8.2)
[2021-12-11] MEDS: ATORVASTATIN 10 MG TAB PO SCH (08:57)
[2021-12-11] MEDS: **hydrALAZINE** 50 MG TAB PO SCH ×3 (08:57→21:14)
[2021-12-11] MEDS: allopurinoL 300 MG TAB PO SCH (08:57)
[2021-12-11] MEDS: ASPIRIN 81MG ENTERIC TABLET PO SCH (08:57)
[2021-12-11] MEDS: oxyCODONE 15 MG CR TAB PO SCH ×2 (08:57→21:14)
[2021-12-11] MEDS: lisinopriL 40MG TAB PO SCH (08:58)
[2021-12-11] MEDS: OMEPRAZOLE 20MG CAP PO SCH (08:58)
[2021-12-11] MEDS: GABAPENTIN 100 MG CAP PO SCH ×3 (08:58→21:14)
[2021-12-11] MEDS: INSULIN LISPRO (NovoLOG) PER UNIT SC SCH ×4 (08:58→21:00)
[2021-12-11] MEDS: APIXABAN 5 MG TAB (ELIQUIS) PO SCH ×2 (08:58→21:14)
[2021-12-11] MEDS: LIDOCAINE 5% (LIDODERM) PATCH TOP SCH (08:59)
[2021-12-11] MEDS: VANCOMYCIN HCL 1,000 MG, VIAL MATE ADAPTER 1 EACH in D5W 250 ML IV SCH (10:06)
[2021-12-11] MEDS: oxyCODONE 5MG TAB PO PRN (10:07)
[2021-12-11] MEDS ORDERED: MORPHINE 2 MG/ML 1ML VIAL IV ONE ×2 (10:55→12:10)
[2021-12-11 11:32] LABS: C REACTIVE PROTEIN QUANTITATIV < 0.30 MG/DL (0.00-0.30); URIC ACID 4.8 MG/DL (3.5-7.2)
[2021-12-11] MEDS ORDERED: MORPHINE 2 MG/ML 1ML VIAL IV PRN (12:15)
[2021-12-11] MEDS: predniSONE 20 MG TAB PO SCH (18:21)
[2021-12-11] MEDS ORDERED: predniSONE 20 MG TAB PO SCH (21:00)
[2021-12-11] MEDS: MORPHINE 4 MG/ML 1ML VIAL/SYRINGE IV PRN (21:15)
[2021-12-11] MEDS: **NOTE PATIENT COMMENT** MISC XX SCH (21:15)
[2021-12-12] VITALS (7 sets, daily range): BP systolic 124–202; BP diastolic 68–100
[2021-12-12] MEDS ORDERED: ONDANSETRON 4MG 2ML VIAL As Ordered ONE (02:13)
[2021-12-12] MEDS: hydrALAZINE 20MG/ML 1ML VIAL (J0360 PER 20MG) IV PRN (02:21)
[2021-12-12] MEDS: ONDANSETRON 4MG 2ML VIAL IV PRN ×2 (02:35→11:38)
[2021-12-12] MEDS: MORPHINE 4 MG/ML 1ML VIAL/SYRINGE IV PRN ×2 (03:34→17:03)
[2021-12-12] MEDS: NS 1,000 ML IV SCH ×2 (05:26→17:37)
[2021-12-12 05:56] LABS: HEMATOCRIT 47.9 % (42.0-52.0); MEAN CORPUSCULAR HEMOGLOBIN 22.3 pg (27.0-33.0); MEAN CORPUSCULAR HGB CONC 29.2 g/dl (32.0-36.5); MEAN CORPUSCULAR VOLUME 76.4 fl (80.0-96.0); PLATELET COUNT, AUTOMATED 571 10^3/uL (150-450); RED BLOOD COUNT 6.27 10^6/uL (4.30-6.10); WHITE BLOOD COUNT 20.3 10^3/uL (4.0-10.0)
[2021-12-12] MEDS: cefTRIAXone SOD 1 GM in D5W MINI-BAG PLUS 50 ML IV SCH (06:07)
[2021-12-12 06:19] LABS: ALBUMIN 2.3 GM/DL (3.2-5.2); BILIRUBIN,TOTAL 0.4 MG/DL (0.2-1.0); CALCIUM LEVEL 9.3 MG/DL (8.8-10.2); CREATININE FOR GFR 4.1 MG/DL (0.70-1.30); GLOMERULAR FILTRATION RATE 15.9 (>49); POTASSIUM SERUM 4.8 MEQ/L (3.5-5.1)
[2021-12-12] MEDS: LIDOCAINE 5% (LIDODERM) PATCH TOP SCH (08:57)
[2021-12-12] MEDS: APIXABAN 5 MG TAB (ELIQUIS) PO SCH ×2 (08:57→21:49)
[2021-12-12] MEDS: predniSONE 20 MG TAB PO SCH (08:57)
[2021-12-12] MEDS: INSULIN LISPRO (NovoLOG) PER UNIT SC SCH ×4 (08:57→21:52)
[2021-12-12] MEDS: GABAPENTIN 100 MG CAP PO SCH ×3 (08:57→21:49)
[2021-12-12] MEDS: ASPIRIN 81MG ENTERIC TABLET PO SCH (08:58)
[2021-12-12] MEDS: allopurinoL 300 MG TAB PO SCH (09:00)
[2021-12-12] MEDS: OMEPRAZOLE 20MG CAP PO SCH (09:01)
[2021-12-12] MEDS: ATORVASTATIN 10 MG TAB PO SCH (09:01)
[2021-12-12] MEDS: oxyCODONE 15 MG CR TAB PO SCH ×2 (09:01→21:49)
[2021-12-12] MEDS: **hydrALAZINE** 50 MG TAB PO SCH ×3 (09:02→21:49)
[2021-12-12] MEDS: ACETAMINOPHEN TAB 650MG DOSE (2X325MG) PO PRN (09:04)
[2021-12-12] MEDS ORDERED: PANTOPRAZOLE 40MG VIAL IV ONE (11:25)
[2021-12-12] MEDS: VANCOMYCIN HCL 1,000 MG, VIAL MATE ADAPTER 1 EACH in D5W 250 ML IV SCH (11:38)
[2021-12-12] MEDS: **NOTE PATIENT COMMENT** MISC XX SCH (21:50)
[2021-12-13] MEDS: MORPHINE 4 MG/ML 1ML VIAL/SYRINGE IV PRN ×3 (01:44→14:55)
[2021-12-13 04:00] VITALS: BP 150/86
[2021-12-13 06:01] LABS: HEMATOCRIT 46.3 % (42.0-52.0); HEMOGLOBIN 14.1 g/dl (13.5-17.5); MEAN CORPUSCULAR HEMOGLOBIN 23.2 pg (27.0-33.0); MEAN CORPUSCULAR HGB CONC 30.5 g/dl (32.0-36.5); PLATELET COUNT, AUTOMATED 683 10^3/uL (150-450); RED BLOOD COUNT 6.09 10^6/uL (4.30-6.10)
[2021-12-13] MEDS: cefTRIAXone SOD 1 GM in D5W MINI-BAG PLUS 50 ML IV SCH (06:02)
[2021-12-13] MEDS: NS 1,000 ML IV SCH ×2 (06:02→22:40)
[2021-12-13 06:54] LABS: ALBUMIN 2.4 GM/DL (3.2-5.2); BILIRUBIN,TOTAL 0.2 MG/DL (0.2-1.0); CALCIUM LEVEL 9.3 MG/DL (8.8-10.2); CREATININE FOR GFR 4.48 MG/DL (0.70-1.30); GLOMERULAR FILTRATION RATE 14.3 (>49); POTASSIUM SERUM 5.2 MEQ/L (3.5-5.1); TOTAL PROTEIN 4.8 GM/DL (6.4-8.2)
[2021-12-13 08:00] VITALS: BP 160/100
[2021-12-13] MEDS ORDERED: PIPERACILLIN/TAZOBACTAM SOD 4.5 GM in D5W MINI-BAG PLUS 50 ML IV SCH (08:00)
[2021-12-13] MEDS: INSULIN LISPRO (NovoLOG) PER UNIT SC SCH ×4 (08:36→20:15)
[2021-12-13] MEDS: LIDOCAINE 5% (LIDODERM) PATCH TOP SCH (08:51)
[2021-12-13] MEDS: ATORVASTATIN 10 MG TAB PO SCH (08:51)
[2021-12-13] MEDS: ASPIRIN 81MG ENTERIC TABLET PO SCH (08:51)
[2021-12-13] MEDS: PANTOPRAZOLE 40MG VIAL IV SCH (08:51)
[2021-12-13] MEDS: GABAPENTIN 100 MG CAP PO SCH ×3 (08:52→20:15)
[2021-12-13] MEDS: predniSONE 20 MG TAB PO SCH (08:52)
[2021-12-13] MEDS: allopurinoL 300 MG TAB PO SCH (08:52)
[2021-12-13] MEDS: **hydrALAZINE** 50 MG TAB PO SCH ×3 (08:52→20:15)
[2021-12-13] MEDS: APIXABAN 5 MG TAB (ELIQUIS) PO SCH ×2 (08:52→20:15)
[2021-12-13] MEDS: oxyCODONE 15 MG CR TAB PO SCH ×2 (08:53→20:16)
[2021-12-13] MEDS: PIPERACILLIN/TAZOBACTAM SOD 3.375 GM in D5W MINI-BAG PLUS 50 ML IV SCH ×3 (09:05→20:14)
[2021-12-13 12:00] VITALS: BP 176/98
[2021-12-13 20:00] VITALS: BP 162/70
[2021-12-13] MEDS: **NOTE PATIENT COMMENT** MISC XX SCH (20:16)
[2021-12-14] MEDS: PIPERACILLIN/TAZOBACTAM SOD 3.375 GM in D5W MINI-BAG PLUS 50 ML IV SCH ×4 (02:31→20:23)
[2021-12-14 04:00] VITALS: BP 162/80
[2021-12-14] MEDS: MORPHINE 4 MG/ML 1ML VIAL/SYRINGE IV PRN (05:37)
[2021-12-14] MEDS: NS 1,000 ML IV SCH ×2 (07:45→13:25)
[2021-12-14 08:36] VITALS: BP 160/96
[2021-12-14] MEDS: PANTOPRAZOLE 40MG VIAL IV SCH (08:47)
[2021-12-14] MEDS: GABAPENTIN 100 MG CAP PO SCH ×3 (08:47→20:23)
[2021-12-14] MEDS: APIXABAN 5 MG TAB (ELIQUIS) PO SCH ×2 (08:48→20:23)
[2021-12-14] MEDS: ATORVASTATIN 10 MG TAB PO SCH (08:48)
[2021-12-14] MEDS: predniSONE 20 MG TAB PO SCH (08:48)
[2021-12-14] MEDS: allopurinoL 300 MG TAB PO SCH (08:48)
[2021-12-14] MEDS: ASPIRIN 81MG ENTERIC TABLET PO SCH (08:48)
[2021-12-14] MEDS: LIDOCAINE 5% (LIDODERM) PATCH TOP SCH (08:49)
[2021-12-14] MEDS: **hydrALAZINE** 50 MG TAB PO SCH ×3 (08:49→20:23)
[2021-12-14] MEDS: INSULIN LISPRO (NovoLOG) PER UNIT SC SCH ×4 (08:58→20:23)
[2021-12-14] MEDS: NORCO, ANEXSIA 5/325MG TABLET (HYDROcodone/ACETAMINOPHEN) PO PRN (11:55)
[2021-12-14 12:18] LABS: BASO # 0.2 10^3/uL (0.0-0.2); BASO % 0.8 % (0.0-1.0); EOS # 0.4 10^3/uL (0.0-0.5); EOS % 1.6 % (0.0-3.0); HEMATOCRIT 44.5 % (42.0-52.0); HEMOGLOBIN 13.2 g/dl (13.5-17.5); LYMPH # 0.7 10^3/uL (1.5-5.0); LYMPH % 2.8 % (24.0-44.0); MEAN CORPUSCULAR HEMOGLOBIN 22.5 pg (27.0-33.0); MEAN CORPUSCULAR HGB CONC 29.7 g/dl (32.0-36.5); MEAN CORPUSCULAR VOLUME 75.9 fl (80.0-96.0); MONO # 0.5 10^3/uL (0.0-0.8); NEUTROPHILS # 20.8 10^3/uL (1.5-8.5); NEUTROPHILS % 86.9 % (36.0-66.0); PLATELET COUNT, AUTOMATED 606 10^3/uL (150-450); RED BLOOD COUNT 5.86 10^6/uL (4.30-6.10)
[2021-12-14 12:36] LABS: CREATININE FOR GFR 4.69 MG/DL (0.70-1.30); GLOMERULAR FILTRATION RATE 13.6 (>49); POTASSIUM SERUM 5.8 MEQ/L (3.5-5.1)
[2021-12-14] MEDS: PATIROMER SORBITEX CALCIUM 8.4 GM POWDER PACKET (VELTASSA) PO SCH (13:37)
[2021-12-14 16:00] VITALS: BP 140/98
[2021-12-14 20:00] VITALS: BP 180/98
[2021-12-14] MEDS: **NOTE PATIENT COMMENT** MISC XX SCH (20:24)
[2021-12-14] MEDS: hydrALAZINE 20MG/ML 1ML VIAL (J0360 PER 20MG) IV PRN (21:50)
[2021-12-14 22:30] VITALS: BP 162/80
[2021-12-15] VITALS (7 sets, daily range): BP systolic 160–188; BP diastolic 80–110
[2021-12-15] MEDS: NORCO, ANEXSIA 5/325MG TABLET (HYDROcodone/ACETAMINOPHEN) PO PRN (00:10)
[2021-12-15] MEDS: PIPERACILLIN/TAZOBACTAM SOD 3.375 GM in D5W MINI-BAG PLUS 50 ML IV SCH ×4 (02:41→20:44)
[2021-12-15] MEDS: MORPHINE 4 MG/ML 1ML VIAL/SYRINGE IV PRN ×3 (03:29→14:09)
[2021-12-15] MEDS: hydrALAZINE 20MG/ML 1ML VIAL (J0360 PER 20MG) IV PRN (04:29)
[2021-12-15 06:24] LABS: BASO # 0.2 10^3/uL (0.0-0.2); BASO % 0.7 % (0.0-1.0); EOS # 0.2 10^3/uL (0.0-0.5); EOS % 0.7 % (0.0-3.0); HEMATOCRIT 49.8 % (42.0-52.0); HEMOGLOBIN 14.9 g/dl (13.5-17.5); LYMPH # 1.1 10^3/uL (1.5-5.0); MEAN CORPUSCULAR HEMOGLOBIN 22.4 pg (27.0-33.0); MEAN CORPUSCULAR HGB CONC 29.9 g/dl (32.0-36.5); MEAN CORPUSCULAR VOLUME 74.8 fl (80.0-96.0); MONO # 0.9 10^3/uL (0.0-0.8); MONO % 3.3 % (2.0-8.0); NEUTROPHILS # 24.7 10^3/uL (1.5-8.5); NEUTROPHILS % 86.5 % (36.0-66.0); RED BLOOD COUNT 6.66 10^6/uL (4.30-6.10); WHITE BLOOD COUNT 28.6 10^3/uL (4.0-10.0)
[2021-12-15 06:32] LABS: PLATELET COUNT, AUTOMATED 803 10^3/uL (150-450)
[2021-12-15 06:45] LABS: CALCIUM LEVEL 8.9 MG/DL (8.8-10.2); CREATININE FOR GFR 4.89 MG/DL (0.70-1.30); POTASSIUM SERUM 5.1 MEQ/L (3.5-5.1)
[2021-12-15] MEDS: PANTOPRAZOLE 40MG VIAL IV SCH (08:27)
[2021-12-15] MEDS: INSULIN LISPRO (NovoLOG) PER UNIT SC SCH ×4 (08:28→20:57)
[2021-12-15] MEDS: ASPIRIN 81MG ENTERIC TABLET PO SCH (08:29)
[2021-12-15] MEDS: APIXABAN 5 MG TAB (ELIQUIS) PO SCH ×2 (08:29→20:44)
[2021-12-15] MEDS: predniSONE 20 MG TAB PO SCH (08:29)
[2021-12-15] MEDS: ATORVASTATIN 10 MG TAB PO SCH (08:29)
[2021-12-15] MEDS: allopurinoL 300 MG TAB PO SCH (08:29)
[2021-12-15] MEDS: **hydrALAZINE** 50 MG TAB PO SCH ×3 (08:29→20:45)
[2021-12-15] MEDS: GABAPENTIN 100 MG CAP PO SCH ×3 (08:29→20:45)
[2021-12-15] MEDS: NS 1,000 ML IV SCH ×2 (08:30→22:05)
[2021-12-15] MEDS: LIDOCAINE 5% (LIDODERM) PATCH TOP SCH (08:30)
[2021-12-15] MEDS: PATIROMER SORBITEX CALCIUM 8.4 GM POWDER PACKET (VELTASSA) PO SCH (12:36)
[2021-12-15] MEDS: SODIUM BICARBONATE 325 MG TAB PO SCH ×2 (16:23→20:44)
[2021-12-15] MEDS: ACETAMINOPHEN TAB 650MG DOSE (2X325MG) PO PRN (20:45)
[2021-12-15] MEDS: **NOTE PATIENT COMMENT** MISC XX SCH (20:57)
[2021-12-16] VITALS (8 sets, daily range): BP systolic 114–210; BP diastolic 78–114
[2021-12-16] MEDS: PIPERACILLIN/TAZOBACTAM SOD 3.375 GM in D5W MINI-BAG PLUS 50 ML IV SCH ×4 (01:37→22:02)
[2021-12-16] MEDS: MORPHINE 4 MG/ML 1ML VIAL/SYRINGE IV PRN ×3 (01:38→11:36)
[2021-12-16] MEDS: hydrALAZINE 20MG/ML 1ML VIAL (J0360 PER 20MG) IV PRN (02:05)
[2021-12-16] MEDS ORDERED: cloNIDine 0.2 MG TAB PO ONE (02:50)
[2021-12-16] MEDS ORDERED: LABETALOL 100MG/20ML VIAL IV STA ×2 (03:56→04:33)
[2021-12-16 06:46] LABS: BASO # 0.1 10^3/uL (0.0-0.2); BASO % 0.6 % (0.0-1.0); EOS # 0.3 10^3/uL (0.0-0.5); EOS % 1.1 % (0.0-3.0); HEMATOCRIT 48.1 % (42.0-52.0); HEMOGLOBIN 14.2 g/dl (13.5-17.5); LYMPH # 1.2 10^3/uL (1.5-5.0); LYMPH % 5.1 % (24.0-44.0); MEAN CORPUSCULAR HEMOGLOBIN 22.5 pg (27.0-33.0); MEAN CORPUSCULAR HGB CONC 29.5 g/dl (32.0-36.5); MEAN CORPUSCULAR VOLUME 76.2 fl (80.0-96.0); MONO # 0.7 10^3/uL (0.0-0.8); MONO % 3.1 % (2.0-8.0); NEUTROPHILS # 20.2 10^3/uL (1.5-8.5); NEUTROPHILS % 84.7 % (36.0-66.0); PLATELET COUNT, AUTOMATED 728 10^3/uL (150-450); RED BLOOD COUNT 6.31 10^6/uL (4.30-6.10); WHITE BLOOD COUNT 23.9 10^3/uL (4.0-10.0)
[2021-12-16 07:05] LABS: CREATININE FOR GFR 4.94 MG/DL (0.70-1.30); GLOMERULAR FILTRATION RATE 12.8 (>49); POTASSIUM SERUM 4.6 MEQ/L (3.5-5.1)
[2021-12-16] MEDS: INSULIN LISPRO (NovoLOG) PER UNIT SC SCH ×4 (07:49→21:00)
[2021-12-16] MEDS: ASPIRIN 81MG ENTERIC TABLET PO SCH (07:50)
[2021-12-16] MEDS: **hydrALAZINE** 50 MG TAB PO SCH ×3 (07:50→22:05)
[2021-12-16] MEDS: SODIUM BICARBONATE 325 MG TAB PO SCH ×3 (07:50→22:04)
[2021-12-16] MEDS: APIXABAN 5 MG TAB (ELIQUIS) PO SCH ×2 (07:51→22:04)
[2021-12-16] MEDS: GABAPENTIN 100 MG CAP PO SCH ×3 (07:51→22:05)
[2021-12-16] MEDS: ATORVASTATIN 10 MG TAB PO SCH (07:51)
[2021-12-16] MEDS: LIDOCAINE 5% (LIDODERM) PATCH TOP SCH (07:52)
[2021-12-16] MEDS: allopurinoL 300 MG TAB PO SCH (07:52)
[2021-12-16] MEDS: PANTOPRAZOLE 40MG VIAL IV SCH (07:52)
[2021-12-16] MEDS: PATIROMER SORBITEX CALCIUM 8.4 GM POWDER PACKET (VELTASSA) PO SCH (11:36)
[2021-12-16] MEDS: LEVEMIR (INSULIN DETEMIR) 1 UNITS/0.01ML SC SCH (14:29)
[2021-12-16] MEDS ORDERED: NALOXONE INJ 0.4MG/1ML VIAL (J2310 PER 1MG) IV PRN (14:35)
[2021-12-16] MEDS: oxyCODONE 5MG TAB PO PRN ×2 (16:18→22:03)
[2021-12-16] MEDS: **NOTE PATIENT COMMENT** MISC XX SCH (21:00)
[2021-12-16] MEDS: oxyCODONE 15 MG CR TAB PO SCH (21:00)
[2021-12-17] MEDS ORDERED: LABETALOL 200 MG TAB PO ONE
[2021-12-17 02:30] VITALS: BP 162/90
[2021-12-17] MEDS: PIPERACILLIN/TAZOBACTAM SOD 3.375 GM in D5W MINI-BAG PLUS 50 ML IV SCH ×4 (02:39→20:50)
[2021-12-17] MEDS: oxyCODONE 5MG TAB PO PRN ×3 (02:39→18:18)
[2021-12-17 04:54] VITALS: BP 182/90
[2021-12-17] MEDS: **hydrALAZINE** 50 MG TAB PO SCH ×3 (05:22→20:47)
[2021-12-17] MEDS: NORCO, ANEXSIA 5/325MG TABLET (HYDROcodone/ACETAMINOPHEN) PO PRN (05:22)
[2021-12-17 06:46] LABS: HEMATOCRIT 44.7 % (42.0-52.0); HEMOGLOBIN 13.3 g/dl (13.5-17.5); MEAN CORPUSCULAR HEMOGLOBIN 22.7 pg (27.0-33.0); MEAN CORPUSCULAR HGB CONC 29.8 g/dl (32.0-36.5); MEAN CORPUSCULAR VOLUME 76.4 fl (80.0-96.0); RED BLOOD COUNT 5.85 10^6/uL (4.30-6.10); WHITE BLOOD COUNT 17.5 10^3/uL (4.0-10.0)
[2021-12-17 07:05] LABS: PLATELET COUNT, AUTOMATED 599 10^3/uL (150-450)
[2021-12-17 07:35] LABS: CREATININE FOR GFR 4.9 MG/DL (0.70-1.30); GLOMERULAR FILTRATION RATE 12.9 (>49)
[2021-12-17 07:36] LABS: ALBUMIN 2.2 GM/DL (3.2-5.2); BILIRUBIN,TOTAL 0.5 MG/DL (0.2-1.0); CALCIUM LEVEL 8.7 MG/DL (8.8-10.2); PHOSPHORUS LEVEL 5.5 MG/DL (2.5-4.9); POTASSIUM SERUM 5.5 MEQ/L (3.5-5.1); TOTAL PROTEIN 4.1 GM/DL (6.4-8.2)
[2021-12-17 08:00] VITALS: BP 209/102
[2021-12-17] MEDS: oxyCODONE 15 MG CR TAB PO SCH ×2 (08:57→20:48)
[2021-12-17] MEDS: GABAPENTIN 100 MG CAP PO SCH ×3 (10:25→20:47)
[2021-12-17] MEDS: ATORVASTATIN 10 MG TAB PO SCH (10:25)
[2021-12-17] MEDS: APIXABAN 5 MG TAB (ELIQUIS) PO SCH ×2 (10:25→20:48)
[2021-12-17] MEDS: allopurinoL 300 MG TAB PO SCH (10:25)
[2021-12-17] MEDS: PATIROMER SORBITEX CALCIUM 8.4 GM POWDER PACKET (VELTASSA) PO SCH (10:26)
[2021-12-17] MEDS: ASPIRIN 81MG ENTERIC TABLET PO SCH (10:26)
[2021-12-17] MEDS: SODIUM BICARBONATE 325 MG TAB PO SCH ×3 (10:26→20:50)
[2021-12-17] MEDS: LIDOCAINE 5% (LIDODERM) PATCH TOP SCH (10:26)
[2021-12-17] MEDS: INSULIN LISPRO (NovoLOG) PER UNIT SC SCH ×4 (10:27→20:50)
[2021-12-17] MEDS: PANTOPRAZOLE 40MG VIAL IV SCH (10:28)
[2021-12-17] MEDS: LEVEMIR (INSULIN DETEMIR) 1 UNITS/0.01ML SC SCH (10:28)
[2021-12-17 12:00] VITALS: BP 163/92
[2021-12-17] MEDS ORDERED: FUROSEMIDE 100MG/10ML VIAL (J1940) IV ONE (12:00)
[2021-12-17] MEDS: CARVedilol 12.5 MG TAB PO SCH ×2 (12:37→20:48)
[2021-12-17 19:48] VITALS: BP 152/72
[2021-12-17] MEDS ORDERED: LORazepam 0.5 MG TAB PO ONE (20:00)
[2021-12-17] MEDS: **NOTE PATIENT COMMENT** MISC XX SCH (21:00)
[2021-12-18] MEDS: PIPERACILLIN/TAZOBACTAM SOD 3.375 GM in D5W MINI-BAG PLUS 50 ML IV SCH ×3 (03:17→14:16)
[2021-12-18] MEDS: oxyCODONE 5MG TAB PO PRN ×2 (03:22→08:51)
[2021-12-18 04:00] VITALS: BP 160/80
[2021-12-18 06:41] LABS: HEMATOCRIT 46.1 % (42.0-52.0); HEMOGLOBIN 13.7 g/dl (13.5-17.5); MEAN CORPUSCULAR HEMOGLOBIN 22.3 pg (27.0-33.0); MEAN CORPUSCULAR HGB CONC 29.7 g/dl (32.0-36.5); PLATELET COUNT, AUTOMATED 660 10^3/uL (150-450); RED BLOOD COUNT 6.15 10^6/uL (4.30-6.10); WHITE BLOOD COUNT 16.2 10^3/uL (4.0-10.0)
[2021-12-18 07:15] LABS: ALBUMIN 2.3 GM/DL (3.2-5.2); BILIRUBIN,TOTAL 0.5 MG/DL (0.2-1.0); CALCIUM LEVEL 8.7 MG/DL (8.8-10.2); CREATININE FOR GFR 5.25 MG/DL (0.70-1.30); GLOMERULAR FILTRATION RATE 11.9 (>49); POTASSIUM SERUM 4.9 MEQ/L (3.5-5.1)
[2021-12-18] MEDS: LIDOCAINE 5% (LIDODERM) PATCH TOP SCH (08:38)
[2021-12-18] MEDS: LEVEMIR (INSULIN DETEMIR) 1 UNITS/0.01ML SC SCH (08:39)
[2021-12-18] MEDS: INSULIN LISPRO (NovoLOG) PER UNIT SC SCH ×4 (08:39→20:11)
[2021-12-18] MEDS: **hydrALAZINE** 50 MG TAB PO SCH ×3 (08:44→20:23)
[2021-12-18] MEDS: SODIUM BICARBONATE 325 MG TAB PO SCH ×3 (08:45→20:22)
[2021-12-18] MEDS: ASPIRIN 81MG ENTERIC TABLET PO SCH (08:45)
[2021-12-18] MEDS: APIXABAN 5 MG TAB (ELIQUIS) PO SCH ×2 (08:45→20:23)
[2021-12-18] MEDS: ATORVASTATIN 10 MG TAB PO SCH (08:46)
[2021-12-18] MEDS: CARVedilol 12.5 MG TAB PO SCH ×2 (08:46→20:23)
[2021-12-18] MEDS: allopurinoL 300 MG TAB PO SCH (08:46)
[2021-12-18] MEDS: GABAPENTIN 100 MG CAP PO SCH ×3 (08:46→20:23)
[2021-12-18] MEDS: PANTOPRAZOLE 40MG VIAL IV SCH (08:47)
[2021-12-18] MEDS: oxyCODONE 15 MG CR TAB PO SCH ×2 (08:48→20:23)
[2021-12-18 12:00] VITALS: BP 177/106
[2021-12-18] MEDS: PATIROMER SORBITEX CALCIUM 8.4 GM POWDER PACKET (VELTASSA) PO SCH (12:56)
[2021-12-18 20:15] VITALS: BP 192/94
[2021-12-18] MEDS: **NOTE PATIENT COMMENT** MISC XX SCH (20:23)
[2021-12-18 21:59] VITALS: BP 190/96
[2021-12-18] MEDS ORDERED: LORazepam 0.5 MG TAB PO PRN (22:10)
[2021-12-18] MEDS ORDERED: hydrALAZINE 20MG/ML 1ML VIAL (J0360 PER 20MG) IV ONE (23:00)
[2021-12-18 23:26] VITALS: BP 180/90
[2021-12-18] MEDS ORDERED: **hydrALAZINE** 10 MG TAB PO PRN (23:59)
[2021-12-19] VITALS (20 sets, daily range): BP systolic 163–251; BP diastolic 77–126
[2021-12-19] MEDS ORDERED: LABETALOL 100MG/20ML VIAL IV PRN (03:55)
[2021-12-19] MEDS: NORCO, ANEXSIA 5/325MG TABLET (HYDROcodone/ACETAMINOPHEN) PO PRN (04:53)
[2021-12-19 05:30] LABS: HEMATOCRIT 45.2 % (42.0-52.0); HEMOGLOBIN 13.5 g/dl (13.5-17.5); MEAN CORPUSCULAR HEMOGLOBIN 22.1 pg (27.0-33.0); MEAN CORPUSCULAR HGB CONC 29.9 g/dl (32.0-36.5); PLATELET COUNT, AUTOMATED 646 10^3/uL (150-450); RED BLOOD COUNT 6.11 10^6/uL (4.30-6.10); WHITE BLOOD COUNT 17.6 10^3/uL (4.0-10.0)
[2021-12-19 05:55] LABS: ALBUMIN 2.2 GM/DL (3.2-5.2); BILIRUBIN,TOTAL 0.4 MG/DL (0.2-1.0); CALCIUM LEVEL 8.9 MG/DL (8.8-10.2); CREATININE FOR GFR 5.11 MG/DL (0.70-1.30); GLOMERULAR FILTRATION RATE 12.3 (>49); POTASSIUM SERUM 4.8 MEQ/L (3.5-5.1)
[2021-12-19] MEDS ORDERED: hydrALAZINE 20MG/ML 1ML VIAL (J0360 PER 20MG) IV PRN (06:50)
[2021-12-19] MEDS ORDERED: hydrALAZINE 20MG/ML 1ML VIAL (J0360 PER 20MG) IV SCH (06:50)
[2021-12-19] MEDS: PANTOPRAZOLE 40MG VIAL IV SCH ×2 (08:49→09:05)
[2021-12-19] MEDS: LEVEMIR (INSULIN DETEMIR) 1 UNITS/0.01ML SC SCH (08:50)
[2021-12-19] MEDS: INSULIN LISPRO (NovoLOG) PER UNIT SC SCH ×4 (08:51→21:00)
[2021-12-19] MEDS: oxyCODONE 15 MG CR TAB PO SCH ×2 (08:52→21:00)
[2021-12-19] MEDS: ASPIRIN 81MG ENTERIC TABLET PO SCH (08:53)
[2021-12-19] MEDS: SODIUM BICARBONATE 325 MG TAB PO SCH ×3 (08:53→21:34)
[2021-12-19] MEDS: GABAPENTIN 100 MG CAP PO SCH ×3 (08:53→21:32)
[2021-12-19] MEDS: **hydrALAZINE** 50 MG TAB PO SCH ×3 (08:54→21:32)
[2021-12-19] MEDS: CARVedilol 12.5 MG TAB PO SCH ×2 (08:54→21:33)
[2021-12-19] MEDS: APIXABAN 5 MG TAB (ELIQUIS) PO SCH ×2 (08:54→21:33)
[2021-12-19] MEDS: ATORVASTATIN 10 MG TAB PO SCH (08:54)
[2021-12-19] MEDS: allopurinoL 300 MG TAB PO SCH (08:55)
[2021-12-19] MEDS: oxyCODONE 5MG TAB PO PRN ×3 (09:05→21:37)
[2021-12-19] MEDS: LIDOCAINE 5% (LIDODERM) PATCH TOP SCH (09:11)
[2021-12-19] MEDS ORDERED: POLYVINYL ALCOHOL OPHTH SOLN 15 ML(LIQUITEARS) OU PRN (09:15)
[2021-12-19] MEDS: TORSEMIDE (DEMADEX) 50 MG PER 1/2 TAB PO SCH (10:08)
[2021-12-19] MEDS: PATIROMER SORBITEX CALCIUM 8.4 GM POWDER PACKET (VELTASSA) PO SCH (12:25)
[2021-12-19] MEDS: **NOTE PATIENT COMMENT** MISC XX SCH (21:37)
[2021-12-20] VITALS: BP 168/84
[2021-12-20] MEDS: NORCO, ANEXSIA 5/325MG TABLET (HYDROcodone/ACETAMINOPHEN) PO PRN (02:10)
[2021-12-20 04:00] VITALS: BP_DIAS 126
[2021-12-20 07:56] VITALS: BP 158/92
[2021-12-20 08:03] LABS: HEMATOCRIT 44.6 % (42.0-52.0); HEMOGLOBIN 13.4 g/dl (13.5-17.5); MEAN CORPUSCULAR HEMOGLOBIN 22.1 pg (27.0-33.0); MEAN CORPUSCULAR VOLUME 73.5 fl (80.0-96.0); PLATELET COUNT, AUTOMATED 672 10^3/uL (150-450); RED BLOOD COUNT 6.07 10^6/uL (4.30-6.10); WHITE BLOOD COUNT 16.1 10^3/uL (4.0-10.0)
[2021-12-20 08:28] LABS: ALBUMIN 2.4 GM/DL (3.2-5.2); BILIRUBIN,TOTAL 0.5 MG/DL (0.2-1.0); CALCIUM LEVEL 9.6 MG/DL (8.8-10.2); CREATININE FOR GFR 5.1 MG/DL (0.70-1.30); GLOMERULAR FILTRATION RATE 12.3 (>49); POTASSIUM SERUM 5.1 MEQ/L (3.5-5.1); TOTAL PROTEIN 4.7 GM/DL (6.4-8.2)
[2021-12-20] MEDS: **hydrALAZINE** 50 MG TAB PO SCH (08:36)
[2021-12-20] MEDS: APIXABAN 5 MG TAB (ELIQUIS) PO SCH (08:36)
[2021-12-20] MEDS: ASPIRIN 81MG ENTERIC TABLET PO SCH (08:36)
[2021-12-20] MEDS: TORSEMIDE (DEMADEX) 50 MG PER 1/2 TAB PO SCH (08:39)
[2021-12-20] MEDS: oxyCODONE 5MG TAB PO PRN (08:39)
[2021-12-20] MEDS: GABAPENTIN 100 MG CAP PO SCH (08:39)
[2021-12-20] MEDS: ATORVASTATIN 10 MG TAB PO SCH (08:39)
[2021-12-20 08:40] VITALS: BP 158/92
[2021-12-20] MEDS: allopurinoL 300 MG TAB PO SCH (08:40)
[2021-12-20] MEDS: CARVedilol 12.5 MG TAB PO SCH (08:40)
[2021-12-20] MEDS: LIDOCAINE 5% (LIDODERM) PATCH TOP SCH (08:40)
[2021-12-20] MEDS: PANTOPRAZOLE 40MG VIAL IV SCH (08:40)
[2021-12-20] MEDS: INSULIN LISPRO (NovoLOG) PER UNIT SC SCH (08:41)
[2021-12-20] MEDS: SODIUM BICARBONATE 325 MG TAB PO SCH (08:41)
[2021-12-20] MEDS: LEVEMIR (INSULIN DETEMIR) 1 UNITS/0.01ML SC SCH (08:41)
[2021-12-20] MEDS: oxyCODONE 15 MG CR TAB PO SCH (08:42)
[2021-12-20] MEDS ORDERED: HYDR-3911 PO (10:41)
[2021-12-20] MEDS ORDERED: TORS100T PO (10:41)
[2021-12-20] MEDS ORDERED: MINO2.5T PO (10:41)
[2021-12-20] MEDS ORDERED: SODI325T9 PO (10:41)
[2021-12-20] MEDS ORDERED: CARV12.5 PO (10:41)
[2021-12-20] MEDS ORDERED: SODIUM BICARBONATE 325 MG TAB PO SCH (21:00)
== END 2021-12-20 11:41 | disposition home health service (06) | DRG 683 ==
LOC: M ED 14:30 → M ED INP 12-10 02:32 → M 4MAIN 12-10 04:23 → M PCU 12-10 18:12 → M 4MAIN 12-16 12:35 → M ICU 12-19 04:25 → M PCU 12-19 14:03
PROVIDERS: ADMIT Internal Medicine; ATTEND Internal Medicine
DX: N17.9 Acute kidney failure, unspecified (principal); F11.20 Opioid dependence, uncomplicated; L03.115 Cellulitis of right lower limb; E87.2 Acidosis; R45.851 Suicidal ideations; R18.8 Other ascites; M25.551 Pain in right hip; D45 Polycythemia vera; D75.839 Thrombocytosis, unspecified; R16.1 Splenomegaly, not elsewhere classified; Z86.718 Personal history of other venous thrombosis and embolism; M10.9 Gout, unspecified; E11.22 Type 2 diabetes mellitus with diabetic chronic kidney disease; I12.9 Hypertensive chronic kidney disease with stage 1 through stage 4 chronic kidney disease, or unspecified chronic kidney disease; N18.4 Chronic kidney disease, stage 4 (severe); D64.9 Anemia, unspecified; F41.9 Anxiety disorder, unspecified; M25.461 Effusion, right knee; I16.0 Hypertensive urgency; E87.5 Hyperkalemia; E11.51 Type 2 diabetes mellitus with diabetic peripheral angiopathy without gangrene; N25.81 Secondary hyperparathyroidism of renal origin; Z80.51 Family history of malignant neoplasm of kidney; Z79.01 Long term (current) use of anticoagulants; Z96.651 Presence of right artificial knee joint; Z89.512 Acquired absence of left leg below knee; Z79.82 Long term (current) use of aspirin; Z87.891 Personal history of nicotine dependence; Z88.8 Allergy status to other drugs, medicaments and biological substances; Z79.899 Other long term (current) drug therapy; Z91.048 Other nonmedicinal substance allergy status

== ENCOUNTER → 2021-12-23 | Outpatient (CLI) | payer MEDICARE, MEDICAID ==
[~2021-12-23] MED LIST changes: +LISI40TA4 PO; +MINO2.5T PO; +SODI325T9 PO; +TORS100T PO
[2021-12-23 09:40] LABS: ALBUMIN 2.5 GM/DL (3.2-5.2); BILIRUBIN,TOTAL 0.4 MG/DL (0.2-1.0); CALCIUM LEVEL 9.2 MG/DL (8.8-10.2); CREATININE FOR GFR 5.16 MG/DL (0.70-1.30); GLOMERULAR FILTRATION RATE 12.2 (>49); POTASSIUM SERUM 5.1 MEQ/L (3.5-5.1); TOTAL PROTEIN 4.8 GM/DL (6.4-8.2)
== END ==
LOC: M LAB 08:34
PROVIDERS: ATTEND Internal Medicine
DX: N18.4 Chronic kidney disease, stage 4 (severe) (principal); E87.5 Hyperkalemia

== ENCOUNTER → 2022-03-25 | Outpatient (REF) | payer MEDICARE, MEDICAID ==
[2022-03-25 17:17] LABS: HEMOGLOBIN A1c 6.3 %
[2022-03-25 17:57] LABS: ALBUMIN 2.6 GM/DL (3.2-5.2); BILIRUBIN,TOTAL 0.3 MG/DL (0.2-1.0); CALCIUM LEVEL 9.9 MG/DL (8.8-10.2); CHOLESTEROL RISK RATIO 3.625 (<5); CREATININE FOR GFR 5.45 MG/DL (0.70-1.30); GLOMERULAR FILTRATION RATE 11.4 (>49); POTASSIUM SERUM 5.3 MEQ/L (3.5-5.1); THYROID STIMULATING HORMONE 0.814 uIU/ML (0.358-3.740); TOTAL PROTEIN 5.1 GM/DL (6.4-8.2)
== END ==
LOC: M LAB REF 16:16
PROVIDERS: ATTEND Family Medicine Addiction Medicine
DX: E11.69 Type 2 diabetes mellitus with other specified complication (principal)

== ENCOUNTER 2022-08-06 11:34 | Emergency (ER) | payer MEDICARE, MEDICAID ==
[~2022-08-06] VITALS: Ht 195.6 cm; Wt 88.6 kg
[~2022-08-06 11:34] MED LIST changes: -BENZ-52 PO; +BENZ1TAB5 PO
[2022-08-06] MEDS ORDERED: **hydrALAZINE** 50 MG TAB PO ONE (12:40)
[2022-08-06] MEDS ORDERED: CARVedilol 12.5 MG TAB PO ONE (12:40)
[2022-08-06] MEDS ORDERED: lisinopriL 40MG TAB PO ONE (12:40)
[2022-08-06 12:54] VITALS: BP 182/110
[2022-08-06 14:00] VITALS: BP 167/88
== END 2022-08-06 14:12 | disposition home or self-care (01) ==
LOC: EDBD 11:34 → M ED 11:34
DX: G89.4 Chronic pain syndrome (principal); Z91.199 Patient's noncompliance with other medical treatment and regimen due to unspecified reason; I10 Essential (primary) hypertension; E11.9 Type 2 diabetes mellitus without complications; E78.5 Hyperlipidemia, unspecified; F11.20 Opioid dependence, uncomplicated; M10.9 Gout, unspecified; N18.4 Chronic kidney disease, stage 4 (severe); F17.200 Nicotine dependence, unspecified, uncomplicated

== ENCOUNTER 2022-09-03 20:11 | Inpatient (IN) | payer MEDICARE, MEDICAID ==
[~2022-09-03] VITALS: Ht 195.6 cm; Wt 100.4 kg
[~2022-09-03 20:11] MED LIST changes: +ENAL1TAB52 PO; -ENAL20TA11 PO
[2022-09-03] MEDS ORDERED: NS 1,000 ML IV ONE (22:45)
[2022-09-03] MEDS ORDERED: MORPHINE 4 MG/ML 1ML VIAL IV ONE (22:45)
[2022-09-03 23:41] LABS: BASO # 0.2 10^3/uL (0.0-0.2); BASO % 1.2 % (0.0-1.0); EOS % 6.8 % (0.0-3.0); LYMPH # 1.1 10^3/uL (1.5-5.0); LYMPH % 8.1 % (24.0-44.0); MEAN CORPUSCULAR HEMOGLOBIN 21.7 pg (27.0-33.0); MEAN CORPUSCULAR VOLUME 74.7 fl (80.0-96.0); MONO # 0.7 10^3/uL (0.0-0.8); NEUTROPHILS # 10.9 10^3/uL (1.5-8.5); NEUTROPHILS % 77.6 % (36.0-66.0); PLATELET COUNT, AUTOMATED 724 10^3/uL (150-450); RED BLOOD COUNT 4.15 10^6/uL (4.30-6.10); WHITE BLOOD COUNT 14.1 10^3/uL (4.0-10.0)
[2022-09-03 23:54] LABS: INR 1.25
[2022-09-03 23:55] LABS: PARTIAL THROMBOPLASTIN TIME 34.1 SECONDS (24.8-34.2)
[2022-09-04] VITALS (7 sets, daily range): BP systolic 115–176; BP diastolic 50–90
[2022-09-04 00:01] LABS: ERYTHROCYTE SEDIMENTATION RATE 29 mm/hr (0-20)
[2022-09-04 00:06] LABS: C REACTIVE PROTEIN QUANTITATIV < 0.40 MG/DL (<1.0)
[2022-09-04 00:12] LABS: RSV AMPLIFICATION NEGATIVE (NEGATIVE)
[2022-09-04 00:17] LABS: ALKALINE PHOSPHATASE 86 U/L (46-116); ALT/SGPT < 9 U/L (7.0-40); AST/SGOT < 8 U/L (<34); BLOOD UREA NITROGEN 98 MG/DL (9-23); CALCIUM LEVEL 9.4 MG/DL (8.3-10.6); CARBON DIOXIDE LEVEL 21 MMOL/L (20-31); CHLORIDE LEVEL 112 MMOL/L (98-107); CREATININE FOR GFR 7.36 MG/DL (0.70-1.30); GLOMERULAR FILTRATION RATE 8.1 (>49); GLUCOSE, FASTING 85 MG/DL (74-106); SODIUM LEVEL 141 MMOL/L (136-145)
[2022-09-04 00:18] LABS: BILIRUBIN,DIRECT < 0.1 MG/DL (<0.4); BILIRUBIN,TOTAL 0.2 MG/DL (0.3-1.2); TOTAL PROTEIN 5.4 G/DL (5.7-8.2)
[2022-09-04 00:19] LABS: POTASSIUM SERUM 6.2 MMOL/L (3.5-5.1)
[2022-09-04] MEDS ORDERED: PATIROMER SORBITEX CALCIUM 8.4 GM POWDER PACKET (VELTASSA) PO ONE ×3 (01:20→19:20)
[2022-09-04] MEDS ORDERED: VANCOMYCIN HCL 1,500 MG, VIAL MATE ADAPTER 1 EACH in NS 250 ML IV SCH (03:00)
[2022-09-04] MEDS ORDERED: ACETAMINOPHEN TAB 650MG DOSE (2X325MG) PO PRN (03:00)
[2022-09-04] MEDS ORDERED: NS 1,000 ML IV SCH (03:00)
[2022-09-04] MEDS: HYDROMORPHONE HCL 0.5 MG/ 0.5 ML SYRINGE IV PRN ×3 (03:43→12:38)
[2022-09-04] MEDS ORDERED: VANCOMYCIN HCL 1,000 MG, VIAL MATE ADAPTER 1 EACH in D5W 250 ML IV ONE (04:00)
[2022-09-04] MEDS ORDERED: VANCOMYCIN INTERMITTENT/PULSE DOSING BY CLINICAL PHARMACIST PER DOSING PROTOCOL XX SCH (04:20)
[2022-09-04] MEDS ORDERED: VANCOMYCIN HCL 750 MG, VIAL MATE ADAPTER 1 EACH in D5W 250 ML IV ONE (05:00)
[2022-09-04 06:39] LABS: CREATININE FOR GFR 6.9 MG/DL (0.70-1.30); GLOMERULAR FILTRATION RATE 8.7 (>49); POTASSIUM SERUM 5.6 MMOL/L (3.5-5.1)
[2022-09-04] MEDS ORDERED: AMLO1TAB25 PO (09:47)
[2022-09-04] MEDS ORDERED: GABA-282 PO (09:47)
[2022-09-04] MEDS ORDERED: OXYC-517 PO (09:47)
[2022-09-04] MEDS ORDERED: CARV12.5 PO (09:47)
[2022-09-04] MEDS ORDERED: HYDR-3911 PO (09:49)
[2022-09-04] MEDS ORDERED: HOME MED LIST COMPLETE! XX SCH (09:50)
[2022-09-04 11:12] LABS: PERCENT SATURATION 4.5 % (19.7-50.0)
[2022-09-04] MEDS ORDERED: SODIUM BICARBONATE 75 MEQ in NS 0.45% 1,000 ML IV SCH (12:00)
[2022-09-04] MEDS: GABAPENTIN 300 MG CAP PO SCH (14:50)
[2022-09-04] MEDS: CARVedilol 12.5 MG TAB PO SCH (14:50)
[2022-09-04] MEDS ORDERED: DEXTROSE 50% 50ML SYRINGE IV STA (14:53)
[2022-09-04] MEDS ORDERED: GLUCOSE 4GM CHEW TABLET PO PRN (14:55)
[2022-09-04] MEDS ORDERED: DEXTROSE 50% 50ML SYRINGE IV PRN (14:55)
[2022-09-04] MEDS ORDERED: GLUCAGON INJ 1MG VIAL SC PRN (14:55)
[2022-09-04] MEDS: SODIUM BICARBONATE 75 MEQ in D5W/0.45% SODIUM CHLORIDE 1,000 ML IV SCH (17:20)
[2022-09-04] MEDS: **hydrALAZINE** 50 MG TAB PO SCH (17:20)
[2022-09-04 17:50] LABS: ALBUMIN 2.5 G/DL (3.2-5.2); CALCIUM LEVEL 8.8 MG/DL (8.3-10.6); CREATININE FOR GFR 6.74 MG/DL (0.70-1.30); GLOMERULAR FILTRATION RATE 8.9 (>49); PHOSPHORUS LEVEL 6.6 MG/DL (2.4-5.1); POTASSIUM SERUM 5.5 MMOL/L (3.5-5.1)
[2022-09-04] MEDS ORDERED: propofoL 200 MG/20 ML VIAL As Ordered ONE ×3 (18:10→19:01)
[2022-09-04] MEDS ORDERED: LIDOCAINE 2% 100MG/5ML SDV (FOR ANES.) As Ordered ONE (18:10)
[2022-09-04] MEDS ORDERED: fentaNYL 100 MCG/2 ML INJECTION As Ordered ONE (18:10)
[2022-09-04] MEDS ORDERED: MIDAZOLAM INJ 2MG/2ML VIAL As Ordered ONE (18:10)
[2022-09-04] MEDS ORDERED: LIDOCAINE 2% MDV 20ML VIAL As Ordered ONE (18:10)
[2022-09-04] MEDS ORDERED: TOBRAMYCIN SULF 1.2GM VIAL As Ordered ONE (18:10)
[2022-09-04] MEDS ORDERED: ONDANSETRON 4MG 2ML VIAL As Ordered ONE (18:10)
[2022-09-04] MEDS ORDERED: BUPIVACAINE HCL 0.5% 30ML VIAL As Ordered ONE (18:11)
[2022-09-04] MEDS ORDERED: ePHEDrine SULFATE 25 MG/5 ML(5MG/ML) SYRINGE As Ordered ONE (19:13)
[2022-09-04] MEDS ORDERED: ONDANSETRON 4MG 2ML VIAL IV PRN (19:20)
[2022-09-04] MEDS ORDERED: fentaNYL 100 MCG/2 ML INJECTION IV PRN (19:20)
[2022-09-04] MEDS ORDERED: oxyCODONE 5MG TAB PO PRN (19:20)
[2022-09-04] MEDS ORDERED: LR 1,000 ML IV SCH (19:20)
[2022-09-05] VITALS (8 sets, daily range): BP systolic 134–167; BP diastolic 58–92
[2022-09-05] MEDS: CARVedilol 12.5 MG TAB PO SCH ×3 (00:04→20:40)
[2022-09-05] MEDS: **hydrALAZINE** 50 MG TAB PO SCH ×4 (00:06→20:40)
[2022-09-05] MEDS: GABAPENTIN 300 MG CAP PO SCH ×3 (00:06→20:40)
[2022-09-05] MEDS: HYDROMORPHONE HCL 0.5 MG/ 0.5 ML SYRINGE IV PRN ×2 (01:00→07:40)
[2022-09-05] MEDS: SODIUM BICARBONATE 75 MEQ in D5W/0.45% SODIUM CHLORIDE 1,000 ML IV SCH ×3 (01:56→16:53)
[2022-09-05 06:41] LABS: HEMATOCRIT 29.1 % (42.0-52.0); HEMOGLOBIN 8.4 g/dl (13.5-17.5); MEAN CORPUSCULAR HEMOGLOBIN 21.7 pg (27.0-33.0); MEAN CORPUSCULAR HGB CONC 28.9 g/dl (32.0-36.5); MEAN CORPUSCULAR VOLUME 75.2 fl (80.0-96.0); PLATELET COUNT, AUTOMATED 607 10^3/uL (150-450); RED BLOOD COUNT 3.87 10^6/uL (4.30-6.10); WHITE BLOOD COUNT 11.9 10^3/uL (4.0-10.0)
[2022-09-05 07:01] LABS: VANCOMYCIN RANDOM 13.2 UG/ML
[2022-09-05 07:02] LABS: ALBUMIN 2.6 G/DL (3.2-5.2); CALCIUM LEVEL 8.9 MG/DL (8.3-10.6); CREATININE FOR GFR 6.73 MG/DL (0.70-1.30); POTASSIUM SERUM 5.5 MMOL/L (3.5-5.1)
[2022-09-05] MEDS ORDERED: VANCOMYCIN HCL 500 MG in D5W MINI-BAG PLUS 100 ML IV ONE (09:00)
[2022-09-05] MEDS ORDERED: CALCITRIOL 0.25 MCG CAP (S0169) PO SCH (09:00)
[2022-09-05] MEDS: oxyCODONE 5MG TAB PO PRN ×3 (12:42→23:15)
[2022-09-06] MEDS: SODIUM BICARBONATE 75 MEQ in D5W/0.45% SODIUM CHLORIDE 1,000 ML IV SCH (02:15)
[2022-09-06 05:12] VITALS: BP 150/78
[2022-09-06] MEDS: oxyCODONE 5MG TAB PO PRN ×4 (05:13→20:23)
[2022-09-06 07:57] LABS: BASO # 0.1 10^3/uL (0.0-0.2); BASO % 0.6 % (0.0-1.0); EOS # 0.9 10^3/uL (0.0-0.5); EOS % 5.9 % (0.0-3.0); HEMATOCRIT 26.9 % (42.0-52.0); HEMOGLOBIN 7.9 g/dl (13.5-17.5); LYMPH # 1.2 10^3/uL (1.5-5.0); MEAN CORPUSCULAR HEMOGLOBIN 21.7 pg (27.0-33.0); MEAN CORPUSCULAR HGB CONC 29.4 g/dl (32.0-36.5); MEAN CORPUSCULAR VOLUME 73.9 fl (80.0-96.0); MONO # 0.7 10^3/uL (0.0-0.8); MONO % 5.1 % (2.0-8.0); NEUTROPHILS # 11.6 10^3/uL (1.5-8.5); NEUTROPHILS % 79.3 % (36.0-66.0); PLATELET COUNT, AUTOMATED 573 10^3/uL (150-450); RED BLOOD COUNT 3.64 10^6/uL (4.30-6.10); WHITE BLOOD COUNT 14.6 10^3/uL (4.0-10.0)
[2022-09-06] MEDS ORDERED: LevoFLOXacin 750 MG TABLET PO ONE (08:00)
[2022-09-06 08:07] LABS: VANCOMYCIN RANDOM 14.2 UG/ML
[2022-09-06 08:09] LABS: ALBUMIN 2.6 G/DL (3.2-5.2); CALCIUM LEVEL 8.6 MG/DL (8.3-10.6); CREATININE FOR GFR 6.27 MG/DL (0.70-1.30); GLOMERULAR FILTRATION RATE 9.7 (>49); PHOSPHORUS LEVEL 6.2 MG/DL (2.4-5.1); POTASSIUM SERUM 4.5 MMOL/L (3.5-5.1)
[2022-09-06] MEDS: GABAPENTIN 300 MG CAP PO SCH ×2 (09:24→20:23)
[2022-09-06] MEDS: **hydrALAZINE** 50 MG TAB PO SCH ×3 (09:27→20:24)
[2022-09-06] MEDS: CARVedilol 12.5 MG TAB PO SCH ×2 (09:27→20:25)
[2022-09-06] MEDS ORDERED: SODIUM BICARBONATE 75 MEQ in NS 0.45% 1,000 ML IV SCH (10:00)
[2022-09-06] MEDS ORDERED: FERRIC CARBOXYMALTOSE INJ 750 MG, VIAL MATE ADAPTER 1 EACH in NS 250 ML IV ONE (12:00)
[2022-09-06 14:00] VITALS: BP 161/79
[2022-09-06] MEDS: SODIUM BICARBONATE 325 MG TAB PO SCH ×2 (14:28→20:23)
[2022-09-06] MEDS: PANTOPRAZOLE 40MG TAB (PROTONIX) PO SCH (17:09)
[2022-09-06] MEDS: APIXABAN 5 MG TAB (ELIQUIS) PO SCH (20:23)
[2022-09-06 20:25] VITALS: BP 148/72
[2022-09-06] MEDS ORDERED: GI COCKTAIL 50ML BTL(HYOSCYAMINE/MAALOX/LIDOCAINE VISCOUS)(1:3:1) PO ONE (20:35)
[2022-09-06 22:00] VITALS: BP 139/71
[2022-09-07] MEDS: oxyCODONE 5MG TAB PO PRN ×2 (01:34→20:05)
[2022-09-07 06:00] VITALS: BP 150/73
[2022-09-07 06:56] LABS: BASO # 0.1 10^3/uL (0.0-0.2); BASO % 0.6 % (0.0-1.0); EOS # 0.8 10^3/uL (0.0-0.5); EOS % 5.7 % (0.0-3.0); HEMATOCRIT 26.7 % (42.0-52.0); HEMOGLOBIN 7.8 g/dl (13.5-17.5); LYMPH # 1.1 10^3/uL (1.5-5.0); LYMPH % 7.7 % (24.0-44.0); MEAN CORPUSCULAR HEMOGLOBIN 21.6 pg (27.0-33.0); MEAN CORPUSCULAR HGB CONC 29.2 g/dl (32.0-36.5); MONO # 0.9 10^3/uL (0.0-0.8); MONO % 6.2 % (2.0-8.0); NEUTROPHILS # 11.1 10^3/uL (1.5-8.5); NEUTROPHILS % 78.8 % (36.0-66.0); PLATELET COUNT, AUTOMATED 535 10^3/uL (150-450); RED BLOOD COUNT 3.61 10^6/uL (4.30-6.10)
[2022-09-07 07:20] LABS: ALBUMIN 2.5 G/DL (3.2-5.2); CREATININE FOR GFR 6.32 MG/DL (0.70-1.30); GLOMERULAR FILTRATION RATE 9.6 (>49); PHOSPHORUS LEVEL 6.4 MG/DL (2.4-5.1)
[2022-09-07] MEDS: **hydrALAZINE** 50 MG TAB PO SCH ×3 (09:31→20:09)
[2022-09-07] MEDS: APIXABAN 5 MG TAB (ELIQUIS) PO SCH ×2 (09:31→20:04)
[2022-09-07] MEDS: GABAPENTIN 300 MG CAP PO SCH ×2 (09:31→20:04)
[2022-09-07] MEDS: SODIUM BICARBONATE 325 MG TAB PO SCH ×2 (09:31→20:04)
[2022-09-07] MEDS: PANTOPRAZOLE 40MG TAB (PROTONIX) PO SCH (09:32)
[2022-09-07] MEDS: CARVedilol 12.5 MG TAB PO SCH ×2 (09:32→20:09)
[2022-09-07] MEDS: PERCOCET 5MG/325MG TAB PO PRN ×2 (09:35→15:39)
[2022-09-07] MEDS ORDERED: SODI325T9 PO (10:39)
[2022-09-07] MEDS ORDERED: PERCOCET PO (10:39)
[2022-09-07] MEDS ORDERED: PANT40TA29 PO (10:39)
[2022-09-07] MEDS ORDERED: LEVO1TAB39 PO (10:39)
[2022-09-07] MEDS ORDERED: MUPI30CR TOP (10:42)
[2022-09-08] MEDS: oxyCODONE 5MG TAB PO PRN ×3 (00:21→13:08)
[2022-09-08] MEDS: PERCOCET 5MG/325MG TAB PO PRN (04:57)
[2022-09-08 05:58] VITALS: BP 108/72
[2022-09-08 07:53] LABS: BASO # 0.1 10^3/uL (0.0-0.2); BASO % 0.7 % (0.0-1.0); EOS # 0.5 10^3/uL (0.0-0.5); EOS % 4.1 % (0.0-3.0); HEMATOCRIT 27.6 % (42.0-52.0); HEMOGLOBIN 8.1 g/dl (13.5-17.5); MEAN CORPUSCULAR HEMOGLOBIN 21.5 pg (27.0-33.0); MEAN CORPUSCULAR HGB CONC 29.3 g/dl (32.0-36.5); MEAN CORPUSCULAR VOLUME 73.4 fl (80.0-96.0); MONO # 0.7 10^3/uL (0.0-0.8); MONO % 5.5 % (2.0-8.0); NEUTROPHILS # 10.5 10^3/uL (1.5-8.5); NEUTROPHILS % 80.6 % (36.0-66.0); PLATELET COUNT, AUTOMATED 522 10^3/uL (150-450); RED BLOOD COUNT 3.76 10^6/uL (4.30-6.10)
[2022-09-08] MEDS ORDERED: LevoFLOXacin 500 MG TABLET PO SCH (08:00)
[2022-09-08] MEDS: APIXABAN 5 MG TAB (ELIQUIS) PO SCH (08:09)
[2022-09-08] MEDS: GABAPENTIN 300 MG CAP PO SCH (08:09)
[2022-09-08] MEDS: SODIUM BICARBONATE 325 MG TAB PO SCH (08:09)
[2022-09-08] MEDS: PANTOPRAZOLE 40MG TAB (PROTONIX) PO SCH (08:10)
[2022-09-08 08:11] VITALS: BP 131/97
[2022-09-08] MEDS: **hydrALAZINE** 50 MG TAB PO SCH (08:11)
[2022-09-08] MEDS: CARVedilol 12.5 MG TAB PO SCH (08:11)
[2022-09-08 08:18] LABS: ALBUMIN 2.7 G/DL (3.2-5.2); CALCIUM LEVEL 8.8 MG/DL (8.3-10.6); CREATININE FOR GFR 6.74 MG/DL (0.70-1.30); GLOMERULAR FILTRATION RATE 8.9 (>49); PHOSPHORUS LEVEL 5.4 MG/DL (2.4-5.1); POTASSIUM SERUM 5.2 MMOL/L (3.5-5.1)
[2022-09-08] MEDS ORDERED: PATIROMER SORBITEX CALCIUM 8.4 GM POWDER PACKET (VELTASSA) PO SCH (09:00)
[2022-09-08] MEDS ORDERED: TORSEMIDE 20 MG TAB PO SCH (09:00)
[2022-09-08] MEDS ORDERED: TORS20TA2 PO ×2 (10:04→12:22)
[2022-09-08] MEDS ORDERED: VELT1POW PO ×2 (10:04→12:22)
[2022-09-08] MEDS ORDERED: LEVO1TAB39 PO ×2 (10:07→12:22)
[2022-09-08] MEDS ORDERED: MUPI30CR TOP (12:22)
[2022-09-08] MEDS ORDERED: PANT40TA29 PO (12:22)
[2022-09-08] MEDS ORDERED: SODI325T9 PO (12:22)
[2022-09-08] MEDS ORDERED: PERCOCET PO (12:22)
== END 2022-09-08 13:15 | disposition home or self-care (01) | DRG 504 ==
LOC: M ED 20:11 → M ED INP 09-04 02:49 → ENRESERV 09-04 03:39 → M MS5PR 09-04 04:18
PROVIDERS: ADMIT Internal Medicine; ATTEND Student in an Organized Health Care Education/Training Program
PROC: B246ZZZ Ultrasonography of Right and Left Heart (ICD-10-PCS; 2022-09-04)
PROC: 0Y6X0Z0 Detachment at Right 5th Toe, Complete, Open Approach (ICD-10-PCS; principal; 2022-09-04 16:00)
DX: M86.8X7 Other osteomyelitis, ankle and foot (principal); C85.90 Non-Hodgkin lymphoma, unspecified, unspecified site; N18.5 Chronic kidney disease, stage 5; I12.0 Hypertensive chronic kidney disease with stage 5 chronic kidney disease or end stage renal disease; I96 Gangrene, not elsewhere classified; N17.9 Acute kidney failure, unspecified; E87.20 Acidosis, unspecified; L03.115 Cellulitis of right lower limb; D47.1 Chronic myeloproliferative disease; E55.9 Vitamin D deficiency, unspecified; D75.839 Thrombocytosis, unspecified; D63.1 Anemia in chronic kidney disease; E78.00 Pure hypercholesterolemia, unspecified; M10.9 Gout, unspecified; K21.9 Gastro-esophageal reflux disease without esophagitis; E87.5 Hyperkalemia; E21.1 Secondary hyperparathyroidism, not elsewhere classified; G89.29 Other chronic pain; Z79.01 Long term (current) use of anticoagulants; Z79.82 Long term (current) use of aspirin; Z79.899 Other long term (current) drug therapy; Z88.3 Allergy status to other anti-infective agents; Z86.718 Personal history of other venous thrombosis and embolism; Z89.512 Acquired absence of left leg below knee; Z91.048 Other nonmedicinal substance allergy status; Z20.822 Contact with and (suspected) exposure to COVID-19; Z96.651 Presence of right artificial knee joint; Z89.421 Acquired absence of other right toe(s); Z89.411 Acquired absence of right great toe; Z87.891 Personal history of nicotine dependence; Z86.711 Personal history of pulmonary embolism

== ENCOUNTER 2022-09-12 11:03 | Inpatient (IN) | payer MEDICARE, MEDICAID ==
[~2022-09-12] VITALS: Ht 195.6 cm; Wt 116.8 kg
[~2022-09-12 11:03] MED LIST changes: +LEVO1TAB39 PO; +MUPI30CR TOP; +PANT40TA29 PO; +VELT1POW PO
[2022-09-12 13:20] LABS: BASO # 0.1 10^3/uL (0.0-0.2); BASO % 1.2 % (0.0-1.0); EOS # 1.2 10^3/uL (0.0-0.5); EOS % 10.2 % (0.0-3.0); HEMOGLOBIN 8.4 g/dl (13.5-17.5); LYMPH # 1.1 10^3/uL (1.5-5.0); LYMPH % 9.4 % (24.0-44.0); MEAN CORPUSCULAR HEMOGLOBIN 22.1 pg (27.0-33.0); MEAN CORPUSCULAR VOLUME 76.3 fl (80.0-96.0); MONO # 0.5 10^3/uL (0.0-0.8); MONO % 4.3 % (2.0-8.0); NEUTROPHILS # 8.4 10^3/uL (1.5-8.5); NEUTROPHILS % 74.1 % (36.0-66.0); PLATELET COUNT, AUTOMATED 646 10^3/uL (150-450); WHITE BLOOD COUNT 11.3 10^3/uL (4.0-10.0)
[2022-09-12 13:31] LABS: ERYTHROCYTE SEDIMENTATION RATE 36 mm/hr (0-20)
[2022-09-12] MEDS ORDERED: NS 500 ML IV ONE (15:00)
[2022-09-12 15:06] LABS: RSV AMPLIFICATION NEGATIVE (NEGATIVE)
[2022-09-12] MEDS ORDERED: VANCOMYCIN HCL 1,000 MG, VIAL MATE ADAPTER 1 EACH in NS 250 ML IV SCH (15:55)
[2022-09-12] MEDS ORDERED: ATOR1TAB19 PO (16:20)
[2022-09-12] MEDS ORDERED: SODI325T9 PO (16:20)
[2022-09-12] MEDS ORDERED: PANT40TA29 PO (16:20)
[2022-09-12] MEDS ORDERED: CYCL-707 PO (16:20)
[2022-09-12] MEDS ORDERED: OXYC1TAB23 PO (16:20)
[2022-09-12] MEDS ORDERED: ALLO300T2 PO (16:20)
[2022-09-12] MEDS ORDERED: LISI40TA4 PO (16:20)
[2022-09-12] MEDS ORDERED: LEVO1TAB39 PO (16:20)
[2022-09-12] MEDS ORDERED: MUPI2OI TOP (16:20)
[2022-09-12] MEDS ORDERED: HOME MED LIST COMPLETE! XX SCH (16:40)
[2022-09-12] MEDS ORDERED: CYCLOBENZAPRINE 10MG TABLET PO PRN (17:25)
[2022-09-12 17:30] VITALS: BP 202/98
[2022-09-12] MEDS ORDERED: metOLazone 5 MG TAB PO ONE (17:40)
[2022-09-12] MEDS ORDERED: FUROSEMIDE 100MG/10ML VIAL IV ONE (17:40)
[2022-09-12] MEDS: PANTOPRAZOLE 40MG TAB (PROTONIX) PO SCH (18:33)
[2022-09-12] MEDS: PERCOCET 5MG/325MG TAB PO PRN (18:34)
[2022-09-12] MEDS ORDERED: PATIROMER SORBITEX CALCIUM 8.4 GM POWDER PACKET (VELTASSA) PO ONE (19:00)
[2022-09-12] MEDS ORDERED: VANCOMYCIN INTERMITTENT/PULSE DOSING BY CLINICAL PHARMACIST PER DOSING PROTOCOL XX SCH (19:10)
[2022-09-12] MEDS ORDERED: VANCOMYCIN HCL 1,000 MG, VIAL MATE ADAPTER 1 EACH in NS 250 ML IV ONE (20:00)
[2022-09-12] MEDS: SODIUM BICARBONATE 75 MEQ in NS 0.45% 1,000 ML IV SCH ×2 (20:41→22:22)
[2022-09-12 20:52] VITALS: BP 155/75
[2022-09-12] MEDS ORDERED: SODIUM BICARBONATE 325 MG TAB PO SCH (21:00)
[2022-09-12] MEDS: GABAPENTIN 300 MG CAP PO SCH (21:11)
[2022-09-12] MEDS: APIXABAN 5 MG TAB (ELIQUIS) PO SCH (21:11)
[2022-09-12] MEDS: SENNA 8.6 MG TAB (SENOKOT) PO PRN (21:11)
[2022-09-12] MEDS: MIRALAX *UNIT DOSE* 17GM PACKET PO PRN (21:11)
[2022-09-12] MEDS: **hydrALAZINE** 50 MG TAB PO SCH (21:12)
[2022-09-12] MEDS: CARVedilol 12.5 MG TAB PO SCH (21:12)
[2022-09-12 22:41] LABS: CALCIUM LEVEL 8.9 MG/DL (8.3-10.6); CREATININE FOR GFR 8.42 MG/DL (0.70-1.30); GLOMERULAR FILTRATION RATE 6.9 (>49); POTASSIUM SERUM 5.3 MMOL/L (3.5-5.1)
[2022-09-13] VITALS: BP 148/68
[2022-09-13 04:00] VITALS: BP 148/67
[2022-09-13] MEDS: PERCOCET 5MG/325MG TAB PO PRN ×3 (04:08→16:49)
[2022-09-13] MEDS: SODIUM BICARBONATE 75 MEQ in NS 0.45% 1,000 ML IV SCH ×2 (06:31→15:58)
[2022-09-13 08:00] VITALS: BP 135/62
[2022-09-13] MEDS: MIRALAX *UNIT DOSE* 17GM PACKET PO PRN (08:37)
[2022-09-13] MEDS: SENNA 8.6 MG TAB (SENOKOT) PO PRN (08:38)
[2022-09-13] MEDS: MUPIROCIN 2% OINT 22 GM TUBE TOP SCH (08:38)
[2022-09-13] MEDS: **hydrALAZINE** 50 MG TAB PO SCH ×3 (08:39→20:50)
[2022-09-13] MEDS: CARVedilol 12.5 MG TAB PO SCH ×2 (08:39→20:50)
[2022-09-13] MEDS: APIXABAN 5 MG TAB (ELIQUIS) PO SCH ×2 (08:39→20:50)
[2022-09-13] MEDS: allopurinoL 300 MG TAB PO SCH (08:39)
[2022-09-13] MEDS: PANTOPRAZOLE 40MG TAB (PROTONIX) PO SCH (08:39)
[2022-09-13] MEDS: ATORVASTATIN 10 MG TAB PO SCH (08:39)
[2022-09-13] MEDS: GABAPENTIN 300 MG CAP PO SCH ×3 (08:40→20:50)
[2022-09-13 09:18] LABS: BASO # 0.1 10^3/uL (0.0-0.2); BASO % 0.6 % (0.0-1.0); EOS # 0.9 10^3/uL (0.0-0.5); EOS % 6.1 % (0.0-3.0); HEMOGLOBIN 8.8 g/dl (13.5-17.5); LYMPH % 7.2 % (24.0-44.0); MEAN CORPUSCULAR HEMOGLOBIN 21.8 pg (27.0-33.0); MEAN CORPUSCULAR HGB CONC 29.3 g/dl (32.0-36.5); MEAN CORPUSCULAR VOLUME 74.3 fl (80.0-96.0); MONO # 0.4 10^3/uL (0.0-0.8); NEUTROPHILS # 11.4 10^3/uL (1.5-8.5); PLATELET COUNT, AUTOMATED 662 10^3/uL (150-450); RED BLOOD COUNT 4.04 10^6/uL (4.30-6.10); WHITE BLOOD COUNT 13.9 10^3/uL (4.0-10.0)
[2022-09-13 09:43] LABS: ALBUMIN 2.8 G/DL (3.2-5.2); BILIRUBIN,TOTAL 0.3 MG/DL (0.3-1.2); CALCIUM LEVEL 9.2 MG/DL (8.3-10.6); CREATININE FOR GFR 8.15 MG/DL (0.70-1.30); GLOMERULAR FILTRATION RATE 7.2 (>49); POTASSIUM SERUM 5.3 MMOL/L (3.5-5.1); TOTAL PROTEIN 5.3 G/DL (5.7-8.2)
[2022-09-13 12:00] VITALS: BP 145/65
[2022-09-13 15:54] VITALS: BP 161/72
[2022-09-13 20:00] VITALS: BP 170/77
[2022-09-14 00:03] VITALS: BP 133/64
[2022-09-14] MEDS: SODIUM BICARBONATE 75 MEQ in NS 0.45% 1,000 ML IV SCH ×3 (00:36→23:04)
[2022-09-14] MEDS ORDERED: SODIUM CHLORIDE NASAL 0.65% SPRAY BTL (OCEAN) PRN (00:55)
[2022-09-14] MEDS: PERCOCET 5MG/325MG TAB PO PRN ×4 (01:02→22:05)
[2022-09-14 04:00] VITALS: BP 148/70
[2022-09-14 05:34] LABS: BASO # 0.1 10^3/uL (0.0-0.2); BASO % 0.6 % (0.0-1.0); EOS # 0.9 10^3/uL (0.0-0.5); EOS % 6.1 % (0.0-3.0); HEMATOCRIT 26.6 % (42.0-52.0); HEMOGLOBIN 7.8 g/dl (13.5-17.5); LYMPH # 1.4 10^3/uL (1.5-5.0); LYMPH % 9.9 % (24.0-44.0); MEAN CORPUSCULAR HEMOGLOBIN 21.8 pg (27.0-33.0); MEAN CORPUSCULAR HGB CONC 29.3 g/dl (32.0-36.5); MEAN CORPUSCULAR VOLUME 74.5 fl (80.0-96.0); MONO # 0.5 10^3/uL (0.0-0.8); MONO % 3.4 % (2.0-8.0); NEUTROPHILS # 11.2 10^3/uL (1.5-8.5); NEUTROPHILS % 79.2 % (36.0-66.0); PLATELET COUNT, AUTOMATED 647 10^3/uL (150-450); RED BLOOD COUNT 3.57 10^6/uL (4.30-6.10); WHITE BLOOD COUNT 14.2 10^3/uL (4.0-10.0)
[2022-09-14 05:57] LABS: CALCIUM LEVEL 8.4 MG/DL (8.3-10.6); CREATININE FOR GFR 7.69 MG/DL (0.70-1.30); GLOMERULAR FILTRATION RATE 7.7 (>49); POTASSIUM SERUM 4.8 MMOL/L (3.5-5.1)
[2022-09-14 06:03] LABS: HEPATITIS B SURFACE ANTIBODY POSITIVE (POSITIVE)
[2022-09-14 06:15] LABS: HEPATITIS B SURFACE ANTIGEN NEGATIVE (NEGATIVE)
[2022-09-14 06:35] LABS: HEPATITIS B CORE ANTIBODY IGM NEGATIVE (NEGATIVE)
[2022-09-14 07:49] VITALS: BP 165/84
[2022-09-14] MEDS: **hydrALAZINE** 50 MG TAB PO SCH ×3 (08:23→20:48)
[2022-09-14] MEDS: PANTOPRAZOLE 40MG TAB (PROTONIX) PO SCH (08:23)
[2022-09-14] MEDS: APIXABAN 5 MG TAB (ELIQUIS) PO SCH ×2 (08:23→20:47)
[2022-09-14] MEDS: allopurinoL 300 MG TAB PO SCH (08:23)
[2022-09-14] MEDS: GABAPENTIN 300 MG CAP PO SCH ×3 (08:23→20:47)
[2022-09-14] MEDS: ATORVASTATIN 10 MG TAB PO SCH (08:23)
[2022-09-14] MEDS: CARVedilol 12.5 MG TAB PO SCH ×2 (08:24→20:49)
[2022-09-14] MEDS: MUPIROCIN 2% OINT 22 GM TUBE TOP SCH (08:25)
[2022-09-14 08:33] LABS: VANCOMYCIN RANDOM 10.3 UG/ML
[2022-09-14] MEDS ORDERED: VANCOMYCIN HCL 750 MG, VIAL MATE ADAPTER 1 EACH in D5W 250 ML IV ONE (10:00)
[2022-09-14 15:33] VITALS: BP 162/74
[2022-09-14 20:41] VITALS: BP 174/98
[2022-09-14 23:52] VITALS: BP 121/58
[2022-09-15 04:50] VITALS: BP 156/74
[2022-09-15 06:08] LABS: HEMATOCRIT 28.2 % (42.0-52.0); HEMOGLOBIN 8.1 g/dl (13.5-17.5); MEAN CORPUSCULAR HEMOGLOBIN 21.7 pg (27.0-33.0); MEAN CORPUSCULAR HGB CONC 28.7 g/dl (32.0-36.5); MEAN CORPUSCULAR VOLUME 75.4 fl (80.0-96.0); PLATELET COUNT, AUTOMATED 659 10^3/uL (150-450); RED BLOOD COUNT 3.74 10^6/uL (4.30-6.10)
[2022-09-15 06:20] LABS: VANCOMYCIN RANDOM 12.3 UG/ML
[2022-09-15 06:23] LABS: CALCIUM LEVEL 8.7 MG/DL (8.3-10.6); CREATININE FOR GFR 7.13 MG/DL (0.70-1.30); GLOMERULAR FILTRATION RATE 8.4 (>49); POTASSIUM SERUM 4.8 MMOL/L (3.5-5.1)
[2022-09-15] MEDS: PERCOCET 5MG/325MG TAB PO PRN ×3 (06:24→22:31)
[2022-09-15 07:31] VITALS: BP 163/85
[2022-09-15] MEDS ORDERED: VANCOMYCIN HCL 1,000 MG, VIAL MATE ADAPTER 1 EACH in D5W 250 ML IV ONE (08:00)
[2022-09-15] MEDS ORDERED: SODIUM CHLORIDE 0.9% 1000ML IV PRN (08:05)
[2022-09-15] MEDS ORDERED: HEPARIN 1,000UNITS/ML 10ML VIAL (FOR RADIOLOGY & DIALYSIS ONLY) XX SCH (08:05)
[2022-09-15] MEDS ORDERED: HEPARIN 1,000UNITS/ML 10ML VIAL (FOR RADIOLOGY & DIALYSIS ONLY) IV PRN (08:05)
[2022-09-15] MEDS ORDERED: MIDAZOLAM INJ 2MG/2ML VIAL As Ordered ONE (08:07)
[2022-09-15] MEDS ORDERED: fentaNYL 100 MCG/2 ML INJECTION As Ordered ONE ×2 (08:07→09:28)
[2022-09-15] MEDS ORDERED: HEPARIN 1,000UNITS/ML 10ML VIAL (FOR RADIOLOGY & DIALYSIS ONLY) As Ordered ONE (08:08)
[2022-09-15] MEDS ORDERED: LIDOCAINE W/EPINEPHRINE 1% 20ML VIAL As Ordered ONE ×2 (08:08→08:09)
[2022-09-15] MEDS ORDERED: hydrALAZINE 20MG/ML 1ML VIAL As Ordered ONE (09:18)
[2022-09-15] MEDS: allopurinoL 300 MG TAB PO SCH (10:38)
[2022-09-15] MEDS: ATORVASTATIN 10 MG TAB PO SCH (10:38)
[2022-09-15] MEDS: PANTOPRAZOLE 40MG TAB (PROTONIX) PO SCH (10:38)
[2022-09-15] MEDS: APIXABAN 5 MG TAB (ELIQUIS) PO SCH ×2 (10:38→20:35)
[2022-09-15] MEDS: **hydrALAZINE** 50 MG TAB PO SCH ×3 (10:38→20:36)
[2022-09-15] MEDS: CARVedilol 12.5 MG TAB PO SCH ×2 (10:39→20:36)
[2022-09-15] MEDS: GABAPENTIN 300 MG CAP PO SCH ×3 (10:39→20:35)
[2022-09-15] MEDS: MUPIROCIN 2% OINT 22 GM TUBE TOP SCH (10:39)
[2022-09-15 12:33] VITALS: BP 158/76
[2022-09-15] MEDS: ACETAMINOPHEN TAB 650MG DOSE (2X325MG) PO PRN (14:44)
[2022-09-15 19:20] VITALS: BP 161/79
[2022-09-15] MEDS ORDERED: MORPHINE 2 MG/ML 1ML VIAL IV ONE (20:05)
[2022-09-15] MEDS ORDERED: oxyCODONE 5MG TAB PO PRN (20:05)
[2022-09-16] MEDS: PERCOCET 5MG/325MG TAB PO PRN ×3 (05:14→19:04)
[2022-09-16 05:30] VITALS: BP 149/63
[2022-09-16 06:31] LABS: HEMATOCRIT 28.5 % (42.0-52.0); HEMOGLOBIN 8.3 g/dl (13.5-17.5); MEAN CORPUSCULAR HEMOGLOBIN 21.9 pg (27.0-33.0); MEAN CORPUSCULAR HGB CONC 29.1 g/dl (32.0-36.5); MEAN CORPUSCULAR VOLUME 75.2 fl (80.0-96.0); PLATELET COUNT, AUTOMATED 629 10^3/uL (150-450); RED BLOOD COUNT 3.79 10^6/uL (4.30-6.10); WHITE BLOOD COUNT 13.7 10^3/uL (4.0-10.0)
[2022-09-16] MEDS ORDERED: HEPARIN 1,000UNITS/ML 10ML VIAL (FOR RADIOLOGY & DIALYSIS ONLY) IV PRN (07:00)
[2022-09-16] MEDS ORDERED: SODIUM CHLORIDE 0.9% 1000ML IV PRN (07:00)
[2022-09-16] MEDS ORDERED: HEPARIN 1,000UNITS/ML 10ML VIAL (FOR RADIOLOGY & DIALYSIS ONLY) XX SCH (07:00)
[2022-09-16 07:02] LABS: CALCIUM LEVEL 9.1 MG/DL (8.3-10.6); CREATININE FOR GFR 6.05 MG/DL (0.70-1.30); GLOMERULAR FILTRATION RATE 10.1 (>49); POTASSIUM SERUM 4.5 MMOL/L (3.5-5.1); VANCOMYCIN RANDOM 16.6 UG/ML
[2022-09-16 07:22] LABS: PERCENT SATURATION 8.1 % (19.7-50.0)
[2022-09-16] MEDS ORDERED: DARBEPOETIN 100MCG/0.5ML *DIALYSIS* SYRINGE IV SCH (07:45)
[2022-09-16] MEDS: GABAPENTIN 300 MG CAP PO SCH ×4 (08:16→20:17)
[2022-09-16] MEDS: MUPIROCIN 2% OINT 22 GM TUBE TOP SCH (08:16)
[2022-09-16] MEDS: allopurinoL 300 MG TAB PO SCH (08:16)
[2022-09-16] MEDS: PANTOPRAZOLE 40MG TAB (PROTONIX) PO SCH (08:16)
[2022-09-16] MEDS: ATORVASTATIN 10 MG TAB PO SCH (08:16)
[2022-09-16] MEDS: APIXABAN 5 MG TAB (ELIQUIS) PO SCH ×2 (08:16→20:18)
[2022-09-16] MEDS: CARVedilol 12.5 MG TAB PO SCH ×2 (08:17→20:18)
[2022-09-16] MEDS: **hydrALAZINE** 50 MG TAB PO SCH ×3 (08:17→20:18)
[2022-09-16] MEDS: IRON SUCROSE 100MG 5ML VIAL IV SCH (08:45)
[2022-09-16 14:00] VITALS: BP 167/81
[2022-09-16] MEDS ORDERED: VANCOMYCIN HCL 1,000 MG, VIAL MATE ADAPTER 1 EACH in D5W 250 ML IV ONE (16:00)
[2022-09-16 20:00] VITALS: BP 162/83
[2022-09-17] MEDS: PERCOCET 5MG/325MG TAB PO PRN ×4 (01:40→23:19)
[2022-09-17] MEDS: MUPIROCIN 2% OINT 22 GM TUBE TOP SCH (02:05)
[2022-09-17] MEDS: GABAPENTIN 300 MG CAP PO SCH ×4 (05:57→20:58)
[2022-09-17] MEDS: allopurinoL 300 MG TAB PO SCH (05:57)
[2022-09-17] MEDS: APIXABAN 5 MG TAB (ELIQUIS) PO SCH ×2 (05:58→20:58)
[2022-09-17] MEDS: ATORVASTATIN 10 MG TAB PO SCH (05:58)
[2022-09-17] MEDS: PANTOPRAZOLE 40MG TAB (PROTONIX) PO SCH (05:58)
[2022-09-17] MEDS: CARVedilol 12.5 MG TAB PO SCH ×2 (05:59→20:58)
[2022-09-17] MEDS: **hydrALAZINE** 50 MG TAB PO SCH ×3 (05:59→20:58)
[2022-09-17 06:00] VITALS: BP 160/84
[2022-09-17 06:52] LABS: BASO # 0.2 10^3/uL (0.0-0.2); BASO % 1.2 % (0.0-1.0); EOS # 1.2 10^3/uL (0.0-0.5); EOS % 7.8 % (0.0-3.0); HEMATOCRIT 29.5 % (42.0-52.0); HEMOGLOBIN 8.3 g/dl (13.5-17.5); LYMPH # 1.3 10^3/uL (1.5-5.0); MEAN CORPUSCULAR HEMOGLOBIN 21.4 pg (27.0-33.0); MEAN CORPUSCULAR HGB CONC 28.1 g/dl (32.0-36.5); MEAN CORPUSCULAR VOLUME 76.2 fl (80.0-96.0); MONO # 0.8 10^3/uL (0.0-0.8); MONO % 5.4 % (2.0-8.0); NEUTROPHILS # 10.9 10^3/uL (1.5-8.5); NEUTROPHILS % 73.1 % (36.0-66.0); PLATELET COUNT, AUTOMATED 568 10^3/uL (150-450); RED BLOOD COUNT 3.87 10^6/uL (4.30-6.10)
[2022-09-17 07:11] LABS: VANCOMYCIN RANDOM 18.2 UG/ML
[2022-09-17 07:12] LABS: ALBUMIN 2.4 G/DL (3.2-5.2); CALCIUM LEVEL 9.1 MG/DL (8.3-10.6); CREATININE FOR GFR 4.99 MG/DL (0.70-1.30); GLOMERULAR FILTRATION RATE 12.7 (>49); POTASSIUM SERUM 4.6 MMOL/L (3.5-5.1)
[2022-09-17] MEDS ORDERED: VANCOMYCIN HCL 1,000 MG, VIAL MATE ADAPTER 1 EACH in D5W 250 ML IV SCH (10:10)
[2022-09-17 14:00] VITALS: BP 166/85
[2022-09-17 20:00] VITALS: BP 167/85
[2022-09-18 06:00] VITALS: BP 157/81
[2022-09-18] MEDS: GABAPENTIN 300 MG CAP PO SCH ×3 (06:25→21:00)
[2022-09-18] MEDS: APIXABAN 5 MG TAB (ELIQUIS) PO SCH (06:38)
[2022-09-18] MEDS: ATORVASTATIN 10 MG TAB PO SCH (06:39)
[2022-09-18] MEDS: PERCOCET 5MG/325MG TAB PO PRN ×3 (06:39→18:49)
[2022-09-18] MEDS: allopurinoL 300 MG TAB PO SCH (06:39)
[2022-09-18] MEDS: PANTOPRAZOLE 40MG TAB (PROTONIX) PO SCH (06:39)
[2022-09-18] MEDS: CARVedilol 12.5 MG TAB PO SCH ×2 (06:40→21:11)
[2022-09-18] MEDS: **hydrALAZINE** 50 MG TAB PO SCH ×3 (06:40→21:11)
[2022-09-18 07:15] LABS: BASO # 0.2 10^3/uL (0.0-0.2); EOS % 5.4 % (0.0-3.0); HEMATOCRIT 29.8 % (42.0-52.0); HEMOGLOBIN 8.7 g/dl (13.5-17.5); LYMPH # 1.5 10^3/uL (1.5-5.0); LYMPH % 8.5 % (24.0-44.0); MEAN CORPUSCULAR HEMOGLOBIN 22.4 pg (27.0-33.0); MEAN CORPUSCULAR HGB CONC 29.2 g/dl (32.0-36.5); MEAN CORPUSCULAR VOLUME 76.6 fl (80.0-96.0); MONO % 5.4 % (2.0-8.0); NEUTROPHILS # 13.8 10^3/uL (1.5-8.5); NEUTROPHILS % 77.8 % (36.0-66.0); PLATELET COUNT, AUTOMATED 583 10^3/uL (150-450); RED BLOOD COUNT 3.89 10^6/uL (4.30-6.10); WHITE BLOOD COUNT 17.8 10^3/uL (4.0-10.0)
[2022-09-18] MEDS ORDERED: HEPARIN 1,000UNITS/ML 10ML VIAL (FOR RADIOLOGY & DIALYSIS ONLY) IV PRN (07:30)
[2022-09-18] MEDS ORDERED: SODIUM CHLORIDE 0.9% 1000ML IV PRN (07:30)
[2022-09-18] MEDS ORDERED: HEPARIN 1,000UNITS/ML 10ML VIAL (FOR RADIOLOGY & DIALYSIS ONLY) XX SCH (07:30)
[2022-09-18 07:37] LABS: ALBUMIN 2.5 G/DL (3.2-5.2); CALCIUM LEVEL 9.5 MG/DL (8.3-10.6); CREATININE FOR GFR 5.6 MG/DL (0.70-1.30); GLOMERULAR FILTRATION RATE 11.1 (>49); PHOSPHORUS LEVEL 3.9 MG/DL (2.4-5.1); POTASSIUM SERUM 4.9 MMOL/L (3.5-5.1)
[2022-09-18] MEDS: MUPIROCIN 2% OINT 22 GM TUBE TOP SCH (09:00)
[2022-09-18] MEDS: IRON SUCROSE 100MG 5ML VIAL IV SCH (09:26)
[2022-09-18 14:00] VITALS: BP 160/82
[2022-09-18] MEDS: ACETAMINOPHEN TAB 650MG DOSE (2X325MG) PO PRN (15:46)
[2022-09-18 19:38] VITALS: BP 168/98
[2022-09-18 19:40] VITALS: BP 161/84
[2022-09-19] MEDS: PERCOCET 5MG/325MG TAB PO PRN ×3 (02:26→17:12)
[2022-09-19] MEDS: ACETAMINOPHEN TAB 650MG DOSE (2X325MG) PO PRN ×3 (03:36→15:46)
[2022-09-19 06:00] VITALS: BP 160/86
[2022-09-19 07:02] LABS: BASO # 0.2 10^3/uL (0.0-0.2); EOS # 0.9 10^3/uL (0.0-0.5); HEMATOCRIT 28.7 % (42.0-52.0); HEMOGLOBIN 8.3 g/dl (13.5-17.5); LYMPH # 1.3 10^3/uL (1.5-5.0); LYMPH % 7.6 % (24.0-44.0); MEAN CORPUSCULAR HEMOGLOBIN 22.3 pg (27.0-33.0); MEAN CORPUSCULAR HGB CONC 28.9 g/dl (32.0-36.5); MEAN CORPUSCULAR VOLUME 76.9 fl (80.0-96.0); MONO # 0.9 10^3/uL (0.0-0.8); MONO % 5.2 % (2.0-8.0); NEUTROPHILS # 13.6 10^3/uL (1.5-8.5); NEUTROPHILS % 79.2 % (36.0-66.0); PLATELET COUNT, AUTOMATED 502 10^3/uL (150-450); RED BLOOD COUNT 3.73 10^6/uL (4.30-6.10); WHITE BLOOD COUNT 17.1 10^3/uL (4.0-10.0)
[2022-09-19 07:26] LABS: ALBUMIN 2.4 G/DL (3.2-5.2); CALCIUM LEVEL 9.6 MG/DL (8.3-10.6); CREATININE FOR GFR 4.14 MG/DL (0.70-1.30); GLOMERULAR FILTRATION RATE 15.7 (>49); PHOSPHORUS LEVEL 3.6 MG/DL (2.4-5.1); POTASSIUM SERUM 4.6 MMOL/L (3.5-5.1)
[2022-09-19] MEDS ORDERED: ISOVUE-300 61% 100ML VIAL As Ordered ONE (07:57)
[2022-09-19] MEDS ORDERED: fentaNYL 100 MCG/2 ML INJECTION As Ordered ONE (07:57)
[2022-09-19] MEDS ORDERED: LIDOCAINE 1% MDV 20ML VIAL As Ordered ONE (07:57)
[2022-09-19] MEDS ORDERED: MIDAZOLAM INJ 2MG/2ML VIAL As Ordered ONE (07:58)
[2022-09-19] MEDS: GABAPENTIN 300 MG CAP PO SCH ×2 (09:00→16:00)
[2022-09-19] MEDS: MUPIROCIN 2% OINT 22 GM TUBE TOP SCH (09:00)
[2022-09-19] MEDS: allopurinoL 300 MG TAB PO SCH (10:32)
[2022-09-19] MEDS: **hydrALAZINE** 50 MG TAB PO SCH ×2 (10:33→17:06)
[2022-09-19] MEDS: PANTOPRAZOLE 40MG TAB (PROTONIX) PO SCH (10:33)
[2022-09-19] MEDS: ATORVASTATIN 10 MG TAB PO SCH (10:33)
[2022-09-19] MEDS: CARVedilol 12.5 MG TAB PO SCH (10:33)
[2022-09-19 14:00] VITALS: BP 156/84
[2022-09-19] MEDS ORDERED: ALLO10TA PO (15:48)
[2022-09-19] MEDS ORDERED: GABA-282 PO (15:48)
[2022-09-19 17:06] VITALS: BP 175/82
[2022-09-19] MEDS ORDERED: NARC1SPR NARES ×2 (17:15→17:36)
[2022-09-19] MEDS ORDERED: OXYC1TAB23 PO (17:15)
[2022-09-19] MEDS ORDERED: APIXABAN 5 MG TAB (ELIQUIS) PO SCH (21:00)
== END 2022-09-19 18:14 | disposition home or self-care (01) | DRG 463 ==
LOC: M ED 11:03 → M ED INP 15:50 → UNDODISIN 17:30 → M PCU 17:30 → M MSPAV 09-15 19:08
PROVIDERS: ADMIT Internal Medicine; ATTEND Student in an Organized Health Care Education/Training Program
PROC: 0JBQ0ZZ Excision of Right Foot Subcutaneous Tissue and Fascia, Open Approach (ICD-10-PCS; principal; 2022-09-13)
PROC: 0JH63XZ Insertion of Tunneled Vascular Access Device into Chest Subcutaneous Tissue and Fascia, Percutaneous Approach (ICD-10-PCS; 2022-09-15)
PROC: 5A1D70Z Performance of Urinary Filtration, Intermittent, Less than 6 Hours Per Day (ICD-10-PCS; 2022-09-16)
PROC: B50MYZZ Plain Radiography of Right Upper Extremity Veins using Other Contrast (ICD-10-PCS; 2022-09-19)
DX: T87.43 Infection of amputation stump, right lower extremity (principal); N18.6 End stage renal disease; C85.90 Non-Hodgkin lymphoma, unspecified, unspecified site; I12.0 Hypertensive chronic kidney disease with stage 5 chronic kidney disease or end stage renal disease; L03.115 Cellulitis of right lower limb; N17.9 Acute kidney failure, unspecified; N25.81 Secondary hyperparathyroidism of renal origin; E87.20 Acidosis, unspecified; I82.621 Acute embolism and thrombosis of deep veins of right upper extremity; Z86.711 Personal history of pulmonary embolism; Z86.718 Personal history of other venous thrombosis and embolism; G89.29 Other chronic pain; E78.5 Hyperlipidemia, unspecified; M10.9 Gout, unspecified; L97.519 Non-pressure chronic ulcer of other part of right foot with unspecified severity; E87.5 Hyperkalemia; D50.9 Iron deficiency anemia, unspecified; D63.1 Anemia in chronic kidney disease; I73.9 Peripheral vascular disease, unspecified; D75.839 Thrombocytosis, unspecified; G62.9 Polyneuropathy, unspecified; K21.9 Gastro-esophageal reflux disease without esophagitis; Z89.512 Acquired absence of left leg below knee; Z96.651 Presence of right artificial knee joint; Z89.411 Acquired absence of right great toe; Z89.421 Acquired absence of other right toe(s); Z79.01 Long term (current) use of anticoagulants; Z88.3 Allergy status to other anti-infective agents; Z91.048 Other nonmedicinal substance allergy status; Z79.899 Other long term (current) drug therapy; Z20.822 Contact with and (suspected) exposure to COVID-19

== ENCOUNTER 2022-11-10 15:51 | Inpatient (IN) | payer MEDICARE, MEDICAID ==
[~2022-11-10] VITALS: Ht 195.6 cm; Wt 102.0 kg
[~2022-11-10 15:51] MED LIST changes: +ALLO10TA PO; -AMIT25TA17 PO; +AMIT25TA19 PO; +CYCL-707 PO; +DICY-61 PO; -DICY10CA13 PO; +MUPI2OI TOP; +NARC1SPR NARES; -NIFE90TA20 PO; +NIFE90TA46 PO
[2022-11-10 18:32] LABS: BASO # 0.1 10^3/uL (0.0-0.2); EOS % 8.7 % (0.0-3.0); HEMATOCRIT 35.6 % (42.0-52.0); HEMOGLOBIN 10.8 g/dl (13.5-17.5); LYMPH # 1.1 10^3/uL (1.5-5.0); LYMPH % 9.5 % (24.0-44.0); MEAN CORPUSCULAR HGB CONC 30.3 g/dl (32.0-36.5); MEAN CORPUSCULAR VOLUME 82.4 fl (80.0-96.0); MONO # 0.5 10^3/uL (0.0-0.8); MONO % 4.2 % (2.0-8.0); NEUTROPHILS # 8.9 10^3/uL (1.5-8.5); NEUTROPHILS % 75.3 % (36.0-66.0); PLATELET COUNT, AUTOMATED 514 10^3/uL (150-450); RED BLOOD COUNT 4.32 10^6/uL (4.30-6.10); WHITE BLOOD COUNT 11.8 10^3/uL (4.0-10.0)
[2022-11-10 18:55] LABS: C REACTIVE PROTEIN QUANTITATIV 3.1 MG/DL (<1.0)
[2022-11-10 18:56] LABS: CREATININE FOR GFR 7.32 MG/DL (0.70-1.30); GLOMERULAR FILTRATION RATE 8.1 (>49); POTASSIUM SERUM 4.7 MMOL/L (3.5-5.1)
[2022-11-10] MEDS ORDERED: ACETAMINOPHEN TAB 650MG DOSE (2X325MG) PO PRN (19:50)
[2022-11-10] MEDS ORDERED: MOM 30ML SUSPENSION UDC PO PRN (19:50)
[2022-11-10] MEDS ORDERED: VANCOMYCIN HCL 1,000 MG, VIAL MATE ADAPTER 1 EACH in D5W 250 ML IV SCH (20:05)
[2022-11-10] MEDS ORDERED: PIPERACILLIN/TAZOBACTAM SOD 3.375 GM in D5W MINI-BAG PLUS 50 ML IV SCH (20:05)
[2022-11-10] MEDS ORDERED: PIPERACILLIN/TAZOBACTAM SOD 4.5 GM in D5W MINI-BAG PLUS 50 ML IV SCH (21:00)
[2022-11-10] MEDS ORDERED: OXYC-517 PO (22:00)
[2022-11-10] MEDS ORDERED: ALLO300T2 PO (22:00)
[2022-11-10] MEDS ORDERED: LISI40TA4 PO (22:00)
[2022-11-10] MEDS ORDERED: HOME MED LIST COMPLETE! XX SCH (22:05)
[2022-11-10] MEDS: PERCOCET 5MG/325MG TAB PO PRN (23:06)
[2022-11-10 23:54] VITALS: BP 187/95; TEMP 98.4; O2SAT 98
[2022-11-11] MEDS ORDERED: MORPHINE 2 MG/ML 1ML VIAL IV ONE (00:10)
[2022-11-11 00:17] VITALS: BP 160/71
[2022-11-11] MEDS: **hydrALAZINE** 50 MG TAB PO SCH ×4 (00:25→20:10)
[2022-11-11] MEDS: SODIUM BICARBONATE 325 MG TAB PO SCH ×3 (00:25→20:09)
[2022-11-11] MEDS: APIXABAN 5 MG TAB (ELIQUIS) PO SCH ×3 (00:26→20:09)
[2022-11-11] MEDS: CARVedilol 12.5 MG TAB PO SCH ×3 (00:26→20:09)
[2022-11-11] MEDS: CYCLOBENZAPRINE 10MG TABLET PO SCH ×4 (00:52→20:09)
[2022-11-11] MEDS ORDERED: VANCOMYCIN HCL 750 MG, VIAL MATE ADAPTER 1 EACH in D5W 250 ML IV ONE ×6 (01:00→17:00)
[2022-11-11] MEDS: PERCOCET 5MG/325MG TAB PO PRN ×3 (05:20→20:10)
[2022-11-11 06:12] LABS: HEMATOCRIT 33.5 % (42.0-52.0); HEMOGLOBIN 10.1 g/dl (13.5-17.5); MEAN CORPUSCULAR HEMOGLOBIN 24.6 pg (27.0-33.0); MEAN CORPUSCULAR HGB CONC 30.1 g/dl (32.0-36.5); MEAN CORPUSCULAR VOLUME 81.7 fl (80.0-96.0); PLATELET COUNT, AUTOMATED 426 10^3/uL (150-450); WHITE BLOOD COUNT 8.7 10^3/uL (4.0-10.0)
[2022-11-11 06:22] VITALS: BP 160/72; TEMP 98.4; O2SAT 97
[2022-11-11] MEDS: ATORVASTATIN 10 MG TAB PO SCH (06:30)
[2022-11-11] MEDS: PANTOPRAZOLE 40MG TAB (PROTONIX) PO SCH (06:30)
[2022-11-11 06:36] LABS: CREATININE FOR GFR 7.14 MG/DL (0.70-1.30); GLOMERULAR FILTRATION RATE 8.3 (>49); MAGNESIUM LEVEL 2.1 MG/DL (1.8-2.4); POTASSIUM SERUM 4.6 MMOL/L (3.5-5.1)
[2022-11-11] MEDS ORDERED: HEPARIN 1,000UNITS/ML 10ML VIAL (FOR RADIOLOGY & DIALYSIS ONLY) XX SCH (07:40)
[2022-11-11] MEDS ORDERED: SODIUM CHLORIDE 0.9% 1000ML IV PRN (07:40)
[2022-11-11] MEDS ORDERED: HEPARIN 1,000UNITS/ML 10ML VIAL (FOR RADIOLOGY & DIALYSIS ONLY) IV PRN (07:40)
[2022-11-11 07:43] LABS: VANCOMYCIN RANDOM 15.1 UG/ML
[2022-11-11 14:00] VITALS: BP 170/84; TEMP 98.4; O2SAT 96
[2022-11-11] MEDS ORDERED: VANCOMYCIN HCL 1,000 MG, VIAL MATE ADAPTER 1 EACH in D5W 250 ML IV SCH (16:00)
[2022-11-11] MEDS ORDERED: VANCOMYCIN HCL 1,000 MG, VIAL MATE ADAPTER 1 EACH in NS 250 ML IV SCH (19:30)
[2022-11-11] MEDS: DOXYCYCLINE HYCLATE 100MG TABLET PO SCH (20:09)
[2022-11-11 20:30] VITALS: BP 163/78; TEMP 99; O2SAT 95
[2022-11-11] MEDS ORDERED: CEFDINIR 300 MG CAP (OMNICEF) PO SCH (21:00)
[2022-11-12] MEDS: PERCOCET 5MG/325MG TAB PO PRN ×4 (02:02→20:16)
[2022-11-12 06:00] VITALS: BP 154/78; TEMP 98.2; O2SAT 96
[2022-11-12] MEDS: CYCLOBENZAPRINE 10MG TABLET PO SCH ×3 (06:12→20:16)
[2022-11-12] MEDS: CARVedilol 12.5 MG TAB PO SCH ×2 (06:13→20:15)
[2022-11-12] MEDS: ATORVASTATIN 10 MG TAB PO SCH (06:13)
[2022-11-12] MEDS: DOXYCYCLINE HYCLATE 100MG TABLET PO SCH ×2 (06:13→20:16)
[2022-11-12] MEDS: **hydrALAZINE** 50 MG TAB PO SCH ×3 (06:13→20:15)
[2022-11-12] MEDS: SODIUM BICARBONATE 325 MG TAB PO SCH ×2 (06:14→20:17)
[2022-11-12] MEDS: APIXABAN 5 MG TAB (ELIQUIS) PO SCH ×2 (06:14→20:17)
[2022-11-12] MEDS: PANTOPRAZOLE 40MG TAB (PROTONIX) PO SCH (06:14)
[2022-11-12] MEDS ORDERED: VANCOMYCIN HCL 1,000 MG, VIAL MATE ADAPTER 1 EACH in D5W 250 ML IV SCH (12:00)
[2022-11-12] MEDS ORDERED: PREGABALIN 75 MG CAP(LYRICA) PO ONE (13:15)
[2022-11-12] MEDS ORDERED: KETOROLAC 30 MG/ML 1ML VIAL IV ONE (13:15)
[2022-11-12 14:00] VITALS: TEMP 98.8; O2SAT 96
[2022-11-12] MEDS ORDERED: KETOROLAC 30 MG/ML 1ML VIAL IM ONE (14:15)
[2022-11-12 14:30] VITALS: BP 170/82
[2022-11-12] MEDS ORDERED: traMADol 50 MG TAB PO SCH (16:00)
[2022-11-12 19:57] VITALS: BP 161/78; TEMP 98.4; O2SAT 100
[2022-11-12] MEDS: CEPHALEXIN 500 MG CAP PO SCH (20:16)
[2022-11-12] MEDS: PREGABALIN 75 MG CAP(LYRICA) PO SCH (20:17)
[2022-11-12] MEDS: traMADol 50 MG TAB PO SCH (20:17)
[2022-11-12] MEDS ORDERED: MORPHINE 4 MG/ML 1ML VIAL IV ONE (23:05)
[2022-11-13 05:45] VITALS: BP 120/54; TEMP 98.2; O2SAT 97
[2022-11-13 06:19] LABS: HEMATOCRIT 33.1 % (42.0-52.0); HEMOGLOBIN 9.7 g/dl (13.5-17.5); MEAN CORPUSCULAR HEMOGLOBIN 24.1 pg (27.0-33.0); MEAN CORPUSCULAR HGB CONC 29.3 g/dl (32.0-36.5); MEAN CORPUSCULAR VOLUME 82.3 fl (80.0-96.0); PLATELET COUNT, AUTOMATED 405 10^3/uL (150-450); RED BLOOD COUNT 4.02 10^6/uL (4.30-6.10); WHITE BLOOD COUNT 7.7 10^3/uL (4.0-10.0)
[2022-11-13 06:44] LABS: ALBUMIN 2.5 G/DL (3.2-5.2); CALCIUM LEVEL 9.5 MG/DL (8.3-10.6); CREATININE FOR GFR 6.36 MG/DL (0.70-1.30); GLOMERULAR FILTRATION RATE 9.5 (>49); PHOSPHORUS LEVEL 7.5 MG/DL (2.4-5.1); POTASSIUM SERUM 5.4 MMOL/L (3.5-5.1)
[2022-11-13] MEDS ORDERED: SODIUM CHLORIDE 0.9% 1000ML IV PRN (08:05)
[2022-11-13] MEDS ORDERED: HEPARIN 1,000UNITS/ML 10ML VIAL (FOR RADIOLOGY & DIALYSIS ONLY) XX SCH (08:05)
[2022-11-13] MEDS ORDERED: HEPARIN 1,000UNITS/ML 10ML VIAL (FOR RADIOLOGY & DIALYSIS ONLY) IV PRN (08:05)
[2022-11-13] MEDS: CARVedilol 12.5 MG TAB PO SCH ×2 (08:28→20:56)
[2022-11-13] MEDS: DOXYCYCLINE HYCLATE 100MG TABLET PO SCH (08:28)
[2022-11-13] MEDS: PANTOPRAZOLE 40MG TAB (PROTONIX) PO SCH (08:28)
[2022-11-13] MEDS: CYCLOBENZAPRINE 10MG TABLET PO SCH ×3 (08:28→20:56)
[2022-11-13] MEDS: **hydrALAZINE** 50 MG TAB PO SCH ×3 (08:29→20:55)
[2022-11-13] MEDS: PREGABALIN 75 MG CAP(LYRICA) PO SCH ×2 (08:29→20:55)
[2022-11-13] MEDS: ATORVASTATIN 10 MG TAB PO SCH (08:29)
[2022-11-13] MEDS: SODIUM BICARBONATE 325 MG TAB PO SCH ×2 (08:29→20:56)
[2022-11-13] MEDS: APIXABAN 5 MG TAB (ELIQUIS) PO SCH ×2 (08:30→20:55)
[2022-11-13] MEDS: PERCOCET 5MG/325MG TAB PO PRN ×3 (08:31→20:59)
[2022-11-13] MEDS ORDERED: VANCOMYCIN HCL 750 MG, VIAL MATE ADAPTER 1 EACH in D5W 250 ML IV ONE ×2 (09:00→10:00)
[2022-11-13] MEDS: traMADol 50 MG TAB PO SCH ×2 (09:00→20:59)
[2022-11-13] MEDS: DARBEPOETIN 100MCG/0.5ML *DIALYSIS* SYRINGE IV SCH (09:22)
[2022-11-13 09:49] LABS: VANCOMYCIN RANDOM 7.6 UG/ML
[2022-11-13 14:00] VITALS: BP 158/83; TEMP 98.6; O2SAT 95
[2022-11-13 20:09] VITALS: BP_SYST 161; BP_SYST 168; BP_DIAS 77; BP_DIAS 80; TEMP 98.6; O2SAT 97
[2022-11-13] MEDS: CEPHALEXIN 500 MG CAP PO SCH (20:55)
[2022-11-14] MEDS: PERCOCET 5MG/325MG TAB PO PRN ×2 (03:43→10:02)
[2022-11-14 06:05] VITALS: BP 156/79; TEMP 98.1; O2SAT 97
[2022-11-14] MEDS: SODIUM BICARBONATE 325 MG TAB PO SCH ×2 (06:31→20:27)
[2022-11-14] MEDS: APIXABAN 5 MG TAB (ELIQUIS) PO SCH ×2 (06:31→20:30)
[2022-11-14] MEDS: PREGABALIN 75 MG CAP(LYRICA) PO SCH (06:31)
[2022-11-14] MEDS: PANTOPRAZOLE 40MG TAB (PROTONIX) PO SCH (06:31)
[2022-11-14] MEDS: CYCLOBENZAPRINE 10MG TABLET PO SCH (06:31)
[2022-11-14] MEDS: traMADol 50 MG TAB PO SCH (06:32)
[2022-11-14] MEDS: CARVedilol 12.5 MG TAB PO SCH ×2 (06:32→20:30)
[2022-11-14] MEDS: **hydrALAZINE** 50 MG TAB PO SCH ×3 (06:32→20:28)
[2022-11-14] MEDS: ATORVASTATIN 10 MG TAB PO SCH (06:32)
[2022-11-14] MEDS: cefTRIAXone SOD 1 GM in D5W MINI-BAG PLUS 50 ML IV SCH (12:42)
[2022-11-14 14:00] VITALS: BP 156/80; TEMP 98.1; O2SAT 95
[2022-11-14] MEDS ORDERED: MORPHINE 10 MG/ML 1ML VIAL IV ONE (14:15)
[2022-11-14] MEDS ORDERED: PILL CUTTER 1 EACH XX PRN (16:40)
[2022-11-14] MEDS: MORPHINE 30 MG TAB **MSIR PO PRN (20:27)
[2022-11-14] MEDS: PREGABALIN 100 MG CAP (LYRICA) PO SCH (20:27)
[2022-11-14 21:04] VITALS: BP 139/65; TEMP 98.8; O2SAT 97
[2022-11-15] MEDS: MORPHINE 30 MG TAB **MSIR PO PRN ×5 (01:21→23:22)
[2022-11-15 06:00] VITALS: BP 143/63; TEMP 98.4; O2SAT 95
[2022-11-15] MEDS: APIXABAN 5 MG TAB (ELIQUIS) PO SCH ×2 (06:25→21:32)
[2022-11-15] MEDS: SODIUM BICARBONATE 325 MG TAB PO SCH (06:25)
[2022-11-15] MEDS: CARVedilol 12.5 MG TAB PO SCH ×2 (06:26→21:32)
[2022-11-15] MEDS: ATORVASTATIN 10 MG TAB PO SCH (06:26)
[2022-11-15] MEDS: PANTOPRAZOLE 40MG TAB (PROTONIX) PO SCH (06:26)
[2022-11-15] MEDS: PREGABALIN 100 MG CAP (LYRICA) PO SCH (06:27)
[2022-11-15] MEDS: **hydrALAZINE** 50 MG TAB PO SCH ×3 (06:27→21:31)
[2022-11-15 07:23] LABS: BASO # 0.1 10^3/uL (0.0-0.2); BASO % 1.3 % (0.0-1.0); EOS # 0.8 10^3/uL (0.0-0.5); EOS % 8.9 % (0.0-3.0); HEMATOCRIT 38.2 % (42.0-52.0); HEMOGLOBIN 11.1 g/dl (13.5-17.5); LYMPH # 1.2 10^3/uL (1.5-5.0); MEAN CORPUSCULAR HEMOGLOBIN 24.4 pg (27.0-33.0); MEAN CORPUSCULAR HGB CONC 29.1 g/dl (32.0-36.5); MONO # 0.3 10^3/uL (0.0-0.8); MONO % 3.9 % (2.0-8.0); NEUTROPHILS # 6.1 10^3/uL (1.5-8.5); PLATELET COUNT, AUTOMATED 439 10^3/uL (150-450); RED BLOOD COUNT 4.55 10^6/uL (4.30-6.10); WHITE BLOOD COUNT 8.8 10^3/uL (4.0-10.0)
[2022-11-15 07:36] LABS: ERYTHROCYTE SEDIMENTATION RATE 57 mm/hr (0-20)
[2022-11-15 07:48] LABS: CALCIUM LEVEL 10.7 MG/DL (8.3-10.6); CREATININE FOR GFR 5.52 MG/DL (0.70-1.30); GLOMERULAR FILTRATION RATE 11.2 (>49); POTASSIUM SERUM 5.2 MMOL/L (3.5-5.1)
[2022-11-15] MEDS: PREGABALIN 75 MG CAP(LYRICA) PO SCH (07:49)
[2022-11-15 08:00] LABS: PROCALCITONIN 0.44 ng/ml
[2022-11-15] MEDS ORDERED: SODIUM CHLORIDE 0.9% 1000ML IV PRN (08:40)
[2022-11-15] MEDS ORDERED: HEPARIN 1,000UNITS/ML 10ML VIAL (FOR RADIOLOGY & DIALYSIS ONLY) IV PRN (08:40)
[2022-11-15] MEDS ORDERED: HEPARIN 1,000UNITS/ML 10ML VIAL (FOR RADIOLOGY & DIALYSIS ONLY) XX SCH (08:40)
[2022-11-15] MEDS: cefTRIAXone SOD 1 GM in D5W MINI-BAG PLUS 50 ML IV SCH (13:18)
[2022-11-15 14:00] VITALS: BP 165/77; TEMP 98.2; O2SAT 96
[2022-11-15] MEDS: VANCOMYCIN HCL 1,000 MG, VIAL MATE ADAPTER 1 EACH in D5W 250 ML IV SCH (14:06)
[2022-11-15 20:56] VITALS: BP 150/74; TEMP 98.4; O2SAT 94
[2022-11-16] MEDS: MORPHINE 30 MG TAB **MSIR PO PRN ×5 (05:21→21:30)
[2022-11-16 06:00] VITALS: BP 169/97; TEMP 98.4; O2SAT 94
[2022-11-16 06:05] VITALS: BP 154/72
[2022-11-16 07:16] LABS: BASO # 0.1 10^3/uL (0.0-0.2); BASO % 1.3 % (0.0-1.0); EOS # 0.9 10^3/uL (0.0-0.5); EOS % 8.1 % (0.0-3.0); HEMATOCRIT 38.8 % (42.0-52.0); HEMOGLOBIN 11.6 g/dl (13.5-17.5); LYMPH # 1.3 10^3/uL (1.5-5.0); LYMPH % 11.8 % (24.0-44.0); MEAN CORPUSCULAR HEMOGLOBIN 24.8 pg (27.0-33.0); MEAN CORPUSCULAR HGB CONC 29.9 g/dl (32.0-36.5); MEAN CORPUSCULAR VOLUME 82.9 fl (80.0-96.0); MONO # 0.5 10^3/uL (0.0-0.8); MONO % 4.7 % (2.0-8.0); NEUTROPHILS % 72.6 % (36.0-66.0); PLATELET COUNT, AUTOMATED 473 10^3/uL (150-450); RED BLOOD COUNT 4.68 10^6/uL (4.30-6.10)
[2022-11-16 07:40] LABS: CREATININE FOR GFR 4.51 MG/DL (0.70-1.30); GLOMERULAR FILTRATION RATE 14.2 (>49); POTASSIUM SERUM 5.1 MMOL/L (3.5-5.1)
[2022-11-16] MEDS: PREGABALIN 75 MG CAP(LYRICA) PO SCH (09:26)
[2022-11-16] MEDS: **hydrALAZINE** 50 MG TAB PO SCH ×3 (09:28→21:23)
[2022-11-16] MEDS: ATORVASTATIN 10 MG TAB PO SCH (09:28)
[2022-11-16] MEDS: APIXABAN 5 MG TAB (ELIQUIS) PO SCH ×2 (09:30→21:23)
[2022-11-16] MEDS: CARVedilol 12.5 MG TAB PO SCH ×2 (09:30→21:23)
[2022-11-16] MEDS: PANTOPRAZOLE 40MG TAB (PROTONIX) PO SCH (09:30)
[2022-11-16] MEDS: cefTRIAXone SOD 1 GM in D5W MINI-BAG PLUS 50 ML IV SCH (12:55)
[2022-11-16 21:01] VITALS: BP 164/83; TEMP 98.2; O2SAT 94
[2022-11-16] MEDS: PREGABALIN 100 MG CAP (LYRICA) PO SCH (21:23)
[2022-11-17] MEDS: MORPHINE 30 MG TAB **MSIR PO PRN ×4 (03:00→22:20)
[2022-11-17 06:00] VITALS: BP 140/97; TEMP 97.9; O2SAT 95
[2022-11-17] MEDS ORDERED: SODIUM CHLORIDE 0.9% 1000ML IV PRN (06:00)
[2022-11-17] MEDS ORDERED: HEPARIN 1,000UNITS/ML 10ML VIAL (FOR RADIOLOGY & DIALYSIS ONLY) IV PRN (06:00)
[2022-11-17] MEDS ORDERED: HEPARIN 1,000UNITS/ML 10ML VIAL (FOR RADIOLOGY & DIALYSIS ONLY) XX SCH (06:00)
[2022-11-17] MEDS ORDERED: MORPHINE 30 MG TAB **MSIR PO ONE (06:20)
[2022-11-17] MEDS ORDERED: ACETAMINOPHEN 500 MG TAB PO ONE (06:20)
[2022-11-17 06:27] LABS: BASO # 0.1 10^3/uL (0.0-0.2); BASO % 1.2 % (0.0-1.0); EOS # 0.9 10^3/uL (0.0-0.5); EOS % 8.2 % (0.0-3.0); HEMOGLOBIN 10.5 g/dl (13.5-17.5); LYMPH # 1.2 10^3/uL (1.5-5.0); LYMPH % 10.9 % (24.0-44.0); MEAN CORPUSCULAR HEMOGLOBIN 24.5 pg (27.0-33.0); MEAN CORPUSCULAR HGB CONC 29.2 g/dl (32.0-36.5); MEAN CORPUSCULAR VOLUME 83.9 fl (80.0-96.0); MONO # 0.6 10^3/uL (0.0-0.8); MONO % 5.5 % (2.0-8.0); NEUTROPHILS % 72.6 % (36.0-66.0); PLATELET COUNT, AUTOMATED 461 10^3/uL (150-450); RED BLOOD COUNT 4.29 10^6/uL (4.30-6.10)
[2022-11-17] MEDS ORDERED: RIZATRIPTAN BENZOATE 10 MG TAB PO ONE (06:35)
[2022-11-17 06:53] LABS: CALCIUM LEVEL 9.9 MG/DL (8.3-10.6); CREATININE FOR GFR 5.48 MG/DL (0.70-1.30); GLOMERULAR FILTRATION RATE 11.3 (>49); POTASSIUM SERUM 5.1 MMOL/L (3.5-5.1)
[2022-11-17 07:52] LABS: VANCOMYCIN RANDOM 14.1 UG/ML
[2022-11-17] MEDS: ATORVASTATIN 10 MG TAB PO SCH (09:02)
[2022-11-17] MEDS: APIXABAN 5 MG TAB (ELIQUIS) PO SCH ×2 (09:02→20:55)
[2022-11-17] MEDS: PANTOPRAZOLE 40MG TAB (PROTONIX) PO SCH (09:02)
[2022-11-17] MEDS: PREGABALIN 75 MG CAP(LYRICA) PO SCH (09:02)
[2022-11-17] MEDS: **hydrALAZINE** 50 MG TAB PO SCH ×3 (09:04→20:56)
[2022-11-17] MEDS: CARVedilol 12.5 MG TAB PO SCH ×2 (09:05→20:56)
[2022-11-17] MEDS: cefTRIAXone SOD 1 GM in D5W MINI-BAG PLUS 50 ML IV SCH (18:22)
[2022-11-17] MEDS ORDERED: ONDANSETRON 4MG 2ML VIAL IV ONE (18:55)
[2022-11-17] MEDS: VANCOMYCIN HCL 1,000 MG, VIAL MATE ADAPTER 1 EACH in D5W 250 ML IV SCH (19:08)
[2022-11-17 20:50] VITALS: BP 148/90; TEMP 98.1; O2SAT 95
[2022-11-17] MEDS: PREGABALIN 100 MG CAP (LYRICA) PO SCH (20:55)
[2022-11-17] MEDS: ONDANSETRON 4MG 2ML VIAL IV PRN (23:39)
[2022-11-18] VITALS (12 sets, daily range): BP systolic 157–176; BP diastolic 83–87; TEMP 97.7–99.7; O2SAT 79–96
[2022-11-18] MEDS: MORPHINE 30 MG TAB **MSIR PO PRN ×2 (02:17→16:16)
[2022-11-18 06:10] LABS: BASO # 0.2 10^3/uL (0.0-0.2); BASO % 1.2 % (0.0-1.0); EOS # 1.1 10^3/uL (0.0-0.5); EOS % 7.6 % (0.0-3.0); HEMATOCRIT 38.9 % (42.0-52.0); HEMOGLOBIN 11.3 g/dl (13.5-17.5); LYMPH % 6.4 % (24.0-44.0); MEAN CORPUSCULAR HEMOGLOBIN 24.7 pg (27.0-33.0); MEAN CORPUSCULAR VOLUME 84.9 fl (80.0-96.0); MONO # 0.6 10^3/uL (0.0-0.8); MONO % 4.1 % (2.0-8.0); NEUTROPHILS # 11.6 10^3/uL (1.5-8.5); NEUTROPHILS % 78.4 % (36.0-66.0); PLATELET COUNT, AUTOMATED 552 10^3/uL (150-450); RED BLOOD COUNT 4.58 10^6/uL (4.30-6.10); WHITE BLOOD COUNT 14.7 10^3/uL (4.0-10.0)
[2022-11-18 06:26] LABS: CALCIUM LEVEL 9.4 MG/DL (8.3-10.6); CREATININE FOR GFR 3.93 MG/DL (0.70-1.30); GLOMERULAR FILTRATION RATE 16.6 (>49); POTASSIUM SERUM 5.3 MMOL/L (3.5-5.1)
[2022-11-18 06:53] LABS: C REACTIVE PROTEIN QUANTITATIV 3.7 MG/DL (<1.0)
[2022-11-18] MEDS: ONDANSETRON 4MG 2ML VIAL IV PRN (06:55)
[2022-11-18 07:06] LABS: PROCALCITONIN 0.43 ng/ml
[2022-11-18] MEDS ORDERED: NALOXONE INJ 0.4MG/1ML VIAL IV PRN (07:35)
[2022-11-18] MEDS ORDERED: BISACODYL 10MG SUPP PR PRN (07:35)
[2022-11-18 08:58] LABS: ABG HCO3 26.5 MMOL/L (22.0-26.0); ABG PARTIAL PRESSURE CO2 56.3 mmHg (35.0-45.0); ABG PARTIAL PRESSURE O2 64.9 mmHg (75.0-100.0); ABG STANDARD HCO3 23.5 MMOL/L. (22.0-26.0); ABG TOTAL CO2 28.2 MMOL/L (23.0-31.0)
[2022-11-18 08:59] LABS: ERYTHROCYTE SEDIMENTATION RATE 68 mm/hr (0-20)
[2022-11-18] MEDS: PREGABALIN 75 MG CAP(LYRICA) PO SCH (09:15)
[2022-11-18] MEDS: ATORVASTATIN 10 MG TAB PO SCH (09:15)
[2022-11-18] MEDS: APIXABAN 5 MG TAB (ELIQUIS) PO SCH ×2 (09:15→21:11)
[2022-11-18] MEDS: PANTOPRAZOLE 40MG TAB (PROTONIX) PO SCH (09:15)
[2022-11-18] MEDS: CARVedilol 12.5 MG TAB PO SCH ×2 (09:16→21:14)
[2022-11-18] MEDS: **hydrALAZINE** 50 MG TAB PO SCH ×3 (09:16→21:12)
[2022-11-18 10:35] LABS: VANCOMYCIN RANDOM 17.5 UG/ML
[2022-11-18] MEDS ORDERED: SODIUM CHLORIDE 0.9% 1000ML IV PRN (12:00)
[2022-11-18] MEDS ORDERED: HEPARIN 1,000UNITS/ML 10ML VIAL (FOR RADIOLOGY & DIALYSIS ONLY) IV PRN (12:00)
[2022-11-18] MEDS ORDERED: HEPARIN 1,000UNITS/ML 10ML VIAL (FOR RADIOLOGY & DIALYSIS ONLY) XX SCH (12:00)
[2022-11-18] MEDS ORDERED: ACETAMINOPHEN 500 MG TAB PO ONE (12:00)
[2022-11-18] MEDS ORDERED: FUROSEMIDE 100MG/10ML VIAL IV ONE (12:30)
[2022-11-18] MEDS: BISACODYL 10MG SUPP PR SCH ×3 (12:53→21:00)
[2022-11-18] MEDS ORDERED: oxyCODONE 5MG TAB PO ONE (12:55)
[2022-11-18] MEDS ORDERED: SENOKOT S TAB PO ONE (12:55)
[2022-11-18] MEDS ORDERED: oxyCODONE 5MG TAB PO PRN (12:55)
[2022-11-18] MEDS ORDERED: BISACODYL 5MG TAB PO ONE (15:40)
[2022-11-18] MEDS ORDERED: LACTULOSE 20GM/30ML SYRUP UDC PO ONE (15:40)
[2022-11-18] MEDS: PREGABALIN 100 MG CAP (LYRICA) PO SCH (21:11)
[2022-11-19] VITALS (18 sets, daily range): BP systolic 132–179; BP diastolic 65–98; TEMP 97.6–99.4; O2SAT 61–98
[2022-11-19] MEDS ORDERED: HEPARIN 1,000UNITS/ML 10ML VIAL (FOR RADIOLOGY & DIALYSIS ONLY) IV PRN (06:00)
[2022-11-19] MEDS ORDERED: HEPARIN 1,000UNITS/ML 10ML VIAL (FOR RADIOLOGY & DIALYSIS ONLY) XX SCH (06:00)
[2022-11-19] MEDS ORDERED: SODIUM CHLORIDE 0.9% 1000ML IV PRN (06:00)
[2022-11-19 06:18] LABS: BASO # 0.2 10^3/uL (0.0-0.2); BASO % 0.9 % (0.0-1.0); EOS # 0.8 10^3/uL (0.0-0.5); EOS % 4.3 % (0.0-3.0); HEMATOCRIT 39.9 % (42.0-52.0); HEMOGLOBIN 11.4 g/dl (13.5-17.5); LYMPH # 0.8 10^3/uL (1.5-5.0); LYMPH % 4.5 % (24.0-44.0); MEAN CORPUSCULAR HEMOGLOBIN 24.6 pg (27.0-33.0); MEAN CORPUSCULAR HGB CONC 28.6 g/dl (32.0-36.5); MEAN CORPUSCULAR VOLUME 86.2 fl (80.0-96.0); MONO # 0.9 10^3/uL (0.0-0.8); MONO % 4.8 % (2.0-8.0); NEUTROPHILS # 15.6 10^3/uL (1.5-8.5); NEUTROPHILS % 82.7 % (36.0-66.0); PLATELET COUNT, AUTOMATED 474 10^3/uL (150-450); RED BLOOD COUNT 4.63 10^6/uL (4.30-6.10); WHITE BLOOD COUNT 18.8 10^3/uL (4.0-10.0)
[2022-11-19 06:36] LABS: ERYTHROCYTE SEDIMENTATION RATE 81 mm/hr (0-20)
[2022-11-19 06:41] LABS: VANCOMYCIN RANDOM 15.2 UG/ML
[2022-11-19 06:42] LABS: C REACTIVE PROTEIN QUANTITATIV 4.8 MG/DL (<1.0)
[2022-11-19] MEDS: MORPHINE 30 MG TAB **MSIR PO PRN (06:46)
[2022-11-19] MEDS: CARVedilol 12.5 MG TAB PO SCH ×2 (06:48→20:42)
[2022-11-19] MEDS: **hydrALAZINE** 50 MG TAB PO SCH ×3 (06:50→20:41)
[2022-11-19 06:53] LABS: CALCIUM LEVEL 9.8 MG/DL (8.3-10.6); CREATININE FOR GFR 5.55 MG/DL (0.70-1.30); GLOMERULAR FILTRATION RATE 11.2 (>49); POTASSIUM SERUM 4.8 MMOL/L (3.5-5.1)
[2022-11-19] MEDS ORDERED: **hydrALAZINE** 50 MG TAB PO ONE (06:55)
[2022-11-19 07:24] LABS: PROCALCITONIN 0.6 ng/ml
[2022-11-19] MEDS ORDERED: ACETAMINOPHEN 500 MG TAB PO ONE (08:00)
[2022-11-19] MEDS ORDERED: MORPHINE 30 MG TAB **MSIR PO ONE (08:00)
[2022-11-19] MEDS ORDERED: CARVedilol 12.5 MG TAB PO ONE (08:00)
[2022-11-19] MEDS ORDERED: NALOXONE INJ 0.4MG/1ML VIAL IV STA ×3 (08:21→20:55)
[2022-11-19] MEDS ORDERED: NALOXONE INJ 0.4MG/1ML VIAL IV PRN (08:25)
[2022-11-19 08:40] LABS: ABG BASE EXCESS -1.5 (-2.0-2.0); ABG HCO3 27.5 MMOL/L (22.0-26.0); ABG O2 SATURATION 98.2 % (95.0-99.0); ABG PARTIAL PRESSURE O2 113.4 mmHg (75.0-100.0); ABG STANDARD HCO3 23.3 MMOL/L. (22.0-26.0); ABG TOTAL CO2 29.7 MMOL/L (23.0-31.0)
[2022-11-19 08:53] LABS: ABG PARTIAL PRESSURE CO2 68.7 mmHg (35.0-45.0); ABG pH (ARTERIAL) 7.221 UNITS (7.350-7.450)
[2022-11-19] MEDS: PANTOPRAZOLE 40MG TAB (PROTONIX) PO SCH (09:00)
[2022-11-19] MEDS: APIXABAN 5 MG TAB (ELIQUIS) PO SCH ×2 (09:00→20:42)
[2022-11-19] MEDS: BISACODYL 10MG SUPP PR SCH ×3 (09:00→20:42)
[2022-11-19] MEDS: ATORVASTATIN 10 MG TAB PO SCH (09:00)
[2022-11-19] MEDS ORDERED: METOCLOPRAMIDE INJ 10MG/2ML VIAL IV ONE (10:20)
[2022-11-19 10:56] LABS: CK-MB VALUE MASS 1.4 NG/ML (<3.6)
[2022-11-19 10:58] LABS: MB/CK RELATIVE INDEX 6.36 (< OR =4)
[2022-11-19 13:20] LABS: ABG BASE EXCESS -2.6 (-2.0-2.0); ABG HCO3 25.9 MMOL/L (22.0-26.0); ABG PARTIAL PRESSURE O2 88.2 mmHg (75.0-100.0); ABG STANDARD HCO3 22.3 MMOL/L. (22.0-26.0); ABG TOTAL CO2 27.8 MMOL/L (23.0-31.0)
[2022-11-19 13:27] LABS: ABG pH (ARTERIAL) 7.229 UNITS (7.350-7.450)
[2022-11-19 13:28] LABS: ABG PARTIAL PRESSURE CO2 63.4 mmHg (35.0-45.0)
[2022-11-19 17:03] LABS: ABG BASE EXCESS -3.1 (-2.0-2.0); ABG HCO3 25.9 MMOL/L (22.0-26.0); ABG O2 SATURATION 97.5 % (95.0-99.0); ABG PARTIAL PRESSURE O2 112.3 mmHg (75.0-100.0); ABG STANDARD HCO3 21.9 MMOL/L. (22.0-26.0)
[2022-11-19 17:17] LABS: ABG pH (ARTERIAL) 7.201 UNITS (7.350-7.450)
[2022-11-19 17:18] LABS: ABG PARTIAL PRESSURE CO2 67.6 mmHg (35.0-45.0)
[2022-11-19 20:38] LABS: ABG BASE EXCESS -5.8 (-2.0-2.0); ABG HCO3 22.9 MMOL/L (22.0-26.0); ABG O2 SATURATION 97.6 % (95.0-99.0); ABG PARTIAL PRESSURE O2 109.3 mmHg (75.0-100.0); ABG STANDARD HCO3 19.7 MMOL/L. (22.0-26.0); ABG TOTAL CO2 24.7 MMOL/L (23.0-31.0)
[2022-11-19 20:44] LABS: ABG pH (ARTERIAL) 7.195 UNITS (7.350-7.450)
[2022-11-19 20:45] LABS: ABG PARTIAL PRESSURE CO2 60.5 mmHg (35.0-45.0)
[2022-11-19 22:43] LABS: ABG BASE EXCESS -3.8 (-2.0-2.0); ABG HCO3 24.4 MMOL/L (22.0-26.0); ABG O2 SATURATION 97.5 % (95.0-99.0); ABG PARTIAL PRESSURE O2 109.1 mmHg (75.0-100.0); ABG STANDARD HCO3 21.3 MMOL/L. (22.0-26.0); ABG TOTAL CO2 26.2 MMOL/L (23.0-31.0)
[2022-11-19 23:04] LABS: ABG pH (ARTERIAL) 7.227 UNITS (7.350-7.450)
[2022-11-20] VITALS (24 sets, daily range): BP systolic 103–164; BP diastolic 58–92; TEMP 97.3–98.6; O2SAT 93–98
[2022-11-20 05:25] LABS: BASO # 0.1 10^3/uL (0.0-0.2); BASO % 0.6 % (0.0-1.0); EOS # 0.5 10^3/uL (0.0-0.5); EOS % 3.5 % (0.0-3.0); HEMATOCRIT 34.6 % (42.0-52.0); HEMOGLOBIN 10.1 g/dl (13.5-17.5); LYMPH # 0.8 10^3/uL (1.5-5.0); LYMPH % 6.1 % (24.0-44.0); MEAN CORPUSCULAR HEMOGLOBIN 25.2 pg (27.0-33.0); MEAN CORPUSCULAR HGB CONC 29.2 g/dl (32.0-36.5); MEAN CORPUSCULAR VOLUME 86.3 fl (80.0-96.0); MONO # 0.8 10^3/uL (0.0-0.8); MONO % 5.6 % (2.0-8.0); NEUTROPHILS # 11.2 10^3/uL (1.5-8.5); NEUTROPHILS % 82.4 % (36.0-66.0); PLATELET COUNT, AUTOMATED 389 10^3/uL (150-450); RED BLOOD COUNT 4.01 10^6/uL (4.30-6.10); WHITE BLOOD COUNT 13.6 10^3/uL (4.0-10.0)
[2022-11-20] MEDS ORDERED: HEPARIN 1,000UNITS/ML 10ML VIAL (FOR RADIOLOGY & DIALYSIS ONLY) XX SCH (06:00)
[2022-11-20] MEDS ORDERED: SODIUM CHLORIDE 0.9% 1000ML IV PRN (06:00)
[2022-11-20] MEDS ORDERED: HEPARIN 1,000UNITS/ML 10ML VIAL (FOR RADIOLOGY & DIALYSIS ONLY) IV PRN (06:00)
[2022-11-20 06:04] LABS: ABG BASE EXCESS -5.9 (-2.0-2.0); ABG HCO3 22.5 MMOL/L (22.0-26.0); ABG O2 SATURATION 96.6 % (95.0-99.0); ABG PARTIAL PRESSURE CO2 57.6 mmHg (35.0-45.0); ABG PARTIAL PRESSURE O2 92.9 mmHg (75.0-100.0); ABG STANDARD HCO3 19.6 MMOL/L. (22.0-26.0); ABG TOTAL CO2 24.2 MMOL/L (23.0-31.0)
[2022-11-20 06:14] LABS: ABG pH (ARTERIAL) 7.209 UNITS (7.350-7.450)
[2022-11-20] MEDS: **hydrALAZINE** 50 MG TAB PO SCH ×3 (08:00→20:22)
[2022-11-20] MEDS: CARVedilol 12.5 MG TAB PO SCH ×2 (08:00→20:22)
[2022-11-20] MEDS: ATORVASTATIN 10 MG TAB PO SCH (08:02)
[2022-11-20] MEDS: APIXABAN 5 MG TAB (ELIQUIS) PO SCH (08:02)
[2022-11-20] MEDS: PANTOPRAZOLE 40MG TAB (PROTONIX) PO SCH (08:03)
[2022-11-20 08:22] LABS: ALBUMIN 2.6 G/DL (3.2-5.2); CREATININE FOR GFR 7.09 MG/DL (0.70-1.30); GLOMERULAR FILTRATION RATE 8.4 (>49); POTASSIUM SERUM 4.7 MMOL/L (3.5-5.1)
[2022-11-20] MEDS ORDERED: FUROSEMIDE 100MG/10ML VIAL IV ONE (08:25)
[2022-11-20 08:55] LABS: CREATININE FOR GFR 7.33 MG/DL (0.70-1.30); GLOMERULAR FILTRATION RATE 8.1 (>49); POTASSIUM SERUM 4.8 MMOL/L (3.5-5.1)
[2022-11-20] MEDS: BISACODYL 10MG SUPP PR SCH ×2 (08:57→16:00)
[2022-11-20] MEDS: HEPARIN SOD (PORCINE) 5000UNITS/ML 1ML VIAL/SYRINGE SQ SCH ×2 (09:10→20:22)
[2022-11-20] MEDS: PANTOPRAZOLE 40MG VIAL IV SCH (09:10)
[2022-11-20] MEDS: LIDOCAINE 5% (LIDODERM) PATCH TD SCH (09:11)
[2022-11-20 09:27] LABS: VANCOMYCIN RANDOM 13.1 UG/ML
[2022-11-20 10:36] LABS: URIC ACID 9.1 MG/DL (3.7-9.2)
[2022-11-20] MEDS ORDERED: VANCOMYCIN HCL 500 MG in D5W MINI-BAG PLUS 100 ML IV ONE (11:00)
[2022-11-20] MEDS ORDERED: GLUCOSE 4GM CHEW TABLET PO PRN (15:00)
[2022-11-20] MEDS ORDERED: GLUCAGON INJ 1MG VIAL SC PRN (15:00)
[2022-11-20] MEDS ORDERED: DEXTROSE 50% 50ML SYRINGE IV PRN (15:00)
[2022-11-20] MEDS: metroNIDAZOLE 500 MG in IV 1 EA IV SCH (19:11)
[2022-11-20] MEDS: VANCOMYCIN HCL 1,000 MG, VIAL MATE ADAPTER 1 EACH in D5W 250 ML IV SCH (20:21)
[2022-11-20] MEDS ORDERED: ACETAMINOPHEN TAB 650MG DOSE (2X325MG) PO ONE (20:30)
[2022-11-21] VITALS (20 sets, daily range): BP systolic 96–164; BP diastolic 56–87; TEMP 97–98.6; O2SAT 90–98
[2022-11-21] MEDS: metroNIDAZOLE 500 MG in IV 1 EA IV SCH ×3 (01:24→17:58)
[2022-11-21 06:06] LABS: BASO # 0.1 10^3/uL (0.0-0.2); BASO % 0.8 % (0.0-1.0); EOS # 0.5 10^3/uL (0.0-0.5); EOS % 4.2 % (0.0-3.0); HEMOGLOBIN 10.6 g/dl (13.5-17.5); LYMPH # 0.9 10^3/uL (1.5-5.0); LYMPH % 7.3 % (24.0-44.0); MEAN CORPUSCULAR HEMOGLOBIN 24.9 pg (27.0-33.0); MEAN CORPUSCULAR HGB CONC 29.4 g/dl (32.0-36.5); MEAN CORPUSCULAR VOLUME 84.5 fl (80.0-96.0); MONO # 0.9 10^3/uL (0.0-0.8); MONO % 7.1 % (2.0-8.0); NEUTROPHILS # 10.2 10^3/uL (1.5-8.5); NEUTROPHILS % 79.4 % (36.0-66.0); PLATELET COUNT, AUTOMATED 362 10^3/uL (150-450); RED BLOOD COUNT 4.26 10^6/uL (4.30-6.10); WHITE BLOOD COUNT 12.8 10^3/uL (4.0-10.0)
[2022-11-21 06:18] LABS: ERYTHROCYTE SEDIMENTATION RATE 97 mm/hr (0-20)
[2022-11-21 06:27] LABS: VANCOMYCIN RANDOM 22.5 UG/ML
[2022-11-21 06:28] LABS: ALBUMIN 2.8 G/DL (3.2-5.2); CALCIUM LEVEL 10.6 MG/DL (8.3-10.6); CREATININE FOR GFR 5.74 MG/DL (0.70-1.30); GLOMERULAR FILTRATION RATE 10.7 (>49); PHOSPHORUS LEVEL 7.5 MG/DL (2.4-5.1); POTASSIUM SERUM 4.2 MMOL/L (3.5-5.1)
[2022-11-21] MEDS: **hydrALAZINE** 50 MG TAB PO SCH ×3 (08:10→21:00)
[2022-11-21] MEDS: LIDOCAINE 5% (LIDODERM) PATCH TD SCH (08:11)
[2022-11-21] MEDS: CARVedilol 12.5 MG TAB PO SCH ×2 (08:11→21:42)
[2022-11-21] MEDS: PANTOPRAZOLE 40MG VIAL IV SCH (08:11)
[2022-11-21] MEDS: ATORVASTATIN 10 MG TAB PO SCH (08:11)
[2022-11-21] MEDS: ONDANSETRON 4MG 2ML VIAL IV PRN (08:16)
[2022-11-21 09:31] LABS: INR 1.3; PROTHROMBIN TIME 16.4 SECONDS (12.5-14.5)
[2022-11-21 09:32] LABS: PARTIAL THROMBOPLASTIN TIME 44.2 SECONDS (24.8-34.2)
[2022-11-21] MEDS ORDERED: fentaNYL 100 MCG/2 ML INJECTION As Ordered ONE (11:28)
[2022-11-21] MEDS ORDERED: MIDAZOLAM INJ 2MG/2ML VIAL As Ordered ONE (11:28)
[2022-11-21] MEDS ORDERED: LIDOCAINE 2% 100MG/5ML SDV (FOR ANES.) As Ordered ONE (11:28)
[2022-11-21] MEDS ORDERED: propofoL 200 MG/20 ML VIAL As Ordered ONE ×2 (11:28→13:39)
[2022-11-21] MEDS ORDERED: LIDOCAINE 2% MDV 20ML VIAL As Ordered ONE (11:39)
[2022-11-21] MEDS ORDERED: TOBRAMYCIN SULF 1.2GM VIAL As Ordered ONE (12:44)
[2022-11-21] MEDS ORDERED: PHENYLephrine 500MCG 5ML (100MCG/ML) SYRINGE As Ordered ONE (13:56)
[2022-11-21] MEDS ORDERED: KETOROLAC 60MG 2ML VIAL As Ordered ONE (14:12)
[2022-11-21 15:04] LABS: HEMATOCRIT 32.2 % (42.0-52.0); HEMOGLOBIN 9.6 g/dl (13.5-17.5); MEAN CORPUSCULAR HEMOGLOBIN 25.2 pg (27.0-33.0); MEAN CORPUSCULAR HGB CONC 29.8 g/dl (32.0-36.5); MEAN CORPUSCULAR VOLUME 84.5 fl (80.0-96.0); PLATELET COUNT, AUTOMATED 358 10^3/uL (150-450); RED BLOOD COUNT 3.81 10^6/uL (4.30-6.10); WHITE BLOOD COUNT 11.2 10^3/uL (4.0-10.0)
[2022-11-21] MEDS ORDERED: fentaNYL 100 MCG/2 ML INJECTION IV PRN (15:20)
[2022-11-21] MEDS ORDERED: ONDANSETRON 4MG 2ML VIAL IV PRN (15:20)
[2022-11-21] MEDS ORDERED: MORPHINE 2 MG/ML 1ML VIAL IV PRN (15:20)
[2022-11-21] MEDS ORDERED: oxyCODONE 5MG TAB PO PRN (15:20)
[2022-11-22] VITALS (11 sets, daily range): BP systolic 105–164; BP diastolic 51–78; TEMP 97.5–98.3; O2SAT 92–98
[2022-11-22] MEDS: metroNIDAZOLE 500 MG in IV 1 EA IV SCH (01:22)
[2022-11-22 05:07] LABS: BASO # 0.1 10^3/uL (0.0-0.2); BASO % 0.9 % (0.0-1.0); EOS # 0.5 10^3/uL (0.0-0.5); EOS % 5.2 % (0.0-3.0); HEMATOCRIT 30.5 % (42.0-52.0); LYMPH # 0.9 10^3/uL (1.5-5.0); LYMPH % 9.9 % (24.0-44.0); MEAN CORPUSCULAR HEMOGLOBIN 24.7 pg (27.0-33.0); MEAN CORPUSCULAR HGB CONC 29.5 g/dl (32.0-36.5); MEAN CORPUSCULAR VOLUME 83.6 fl (80.0-96.0); MONO # 0.7 10^3/uL (0.0-0.8); NEUTROPHILS # 6.6 10^3/uL (1.5-8.5); NEUTROPHILS % 74.1 % (36.0-66.0); PLATELET COUNT, AUTOMATED 374 10^3/uL (150-450); RED BLOOD COUNT 3.65 10^6/uL (4.30-6.10); WHITE BLOOD COUNT 8.9 10^3/uL (4.0-10.0)
[2022-11-22 05:20] LABS: INR 1.32; PROTHROMBIN TIME 16.6 SECONDS (12.5-14.5)
[2022-11-22 05:21] LABS: PARTIAL THROMBOPLASTIN TIME 39.4 SECONDS (24.8-34.2)
[2022-11-22 05:22] LABS: VANCOMYCIN RANDOM 19.2 UG/ML
[2022-11-22 05:26] LABS: ALBUMIN 2.3 G/DL (3.2-5.2); ALKALINE PHOSPHATASE 87 U/L (46-116); ALT/SGPT < 9 U/L (7.0-40); AST/SGOT < 8 U/L (<34); BILIRUBIN,TOTAL 0.2 MG/DL (0.3-1.2); BLOOD UREA NITROGEN 70 MG/DL (9-23); CARBON DIOXIDE LEVEL 25 MMOL/L (20-31); CHLORIDE LEVEL 103 MMOL/L (98-107); CREATININE FOR GFR 7.55 MG/DL (0.70-1.30); GLOMERULAR FILTRATION RATE 7.8 (>49); GLUCOSE, FASTING 123 MG/DL (74-106); MAGNESIUM LEVEL 2.1 MG/DL (1.8-2.4); PHOSPHORUS LEVEL 9.7 MG/DL (2.4-5.1); POTASSIUM SERUM 4.4 MMOL/L (3.5-5.1); SODIUM LEVEL 139 MMOL/L (136-145); TOTAL PROTEIN 4.9 G/DL (5.7-8.2)
[2022-11-22 05:29] LABS: ERYTHROCYTE SEDIMENTATION RATE 51 mm/hr (0-20)
[2022-11-22] MEDS ORDERED: SODIUM CHLORIDE 0.9% 1000ML IV PRN (07:55)
[2022-11-22] MEDS ORDERED: HEPARIN 1,000UNITS/ML 10ML VIAL (FOR RADIOLOGY & DIALYSIS ONLY) XX SCH (07:55)
[2022-11-22] MEDS ORDERED: HEPARIN 1,000UNITS/ML 10ML VIAL (FOR RADIOLOGY & DIALYSIS ONLY) IV PRN (07:55)
[2022-11-22] MEDS ORDERED: KETOROLAC 30 MG/ML 1ML VIAL IV ONE (10:10)
[2022-11-22] MEDS ORDERED: PILL CUTTER 1 EACH XX PRN (10:15)
[2022-11-22] MEDS: SUCROFERRIC OXYHYDROXIDE 500MG CHEW TAB (VELPHORO) PO SCH ×2 (12:52→19:02)
[2022-11-22] MEDS: PANTOPRAZOLE 40MG VIAL IV SCH (12:53)
[2022-11-22] MEDS: ACETAMINOPHEN 500 MG TAB PO SCH ×2 (12:53→20:57)
[2022-11-22] MEDS: LIDOCAINE 5% (LIDODERM) PATCH TD SCH (12:53)
[2022-11-22] MEDS: **hydrALAZINE** 50 MG TAB PO SCH ×3 (12:54→20:57)
[2022-11-22] MEDS: CARVedilol 12.5 MG TAB PO SCH ×2 (12:55→20:56)
[2022-11-22] MEDS: PREGABALIN 50 MG CAP (LYRICA) PO SCH ×2 (12:56→20:56)
[2022-11-22] MEDS: ATORVASTATIN 10 MG TAB PO SCH (12:56)
[2022-11-22] MEDS: APIXABAN 5 MG TAB (ELIQUIS) PO SCH ×2 (12:56→20:56)
[2022-11-22] MEDS: VANCOMYCIN HCL 1,000 MG, VIAL MATE ADAPTER 1 EACH in D5W 250 ML IV SCH (12:56)
[2022-11-22] MEDS: metroNIDAZOLE (FLAGYL) 500MG TABLET PO SCH ×2 (16:24→20:56)
[2022-11-22] MEDS: oxyCODONE 5MG TAB PO PRN (23:16)
[2022-11-23] MEDS: ACETAMINOPHEN TAB 650MG DOSE (2X325MG) PO PRN (04:20)
[2022-11-23 05:51] VITALS: BP 148/74; TEMP 98.8; O2SAT 94
[2022-11-23 06:26] LABS: BASO # 0.1 10^3/uL (0.0-0.2); BASO % 1.6 % (0.0-1.0); EOS # 0.6 10^3/uL (0.0-0.5); EOS % 7.2 % (0.0-3.0); HEMATOCRIT 30.8 % (42.0-52.0); HEMOGLOBIN 9.1 g/dl (13.5-17.5); LYMPH # 0.9 10^3/uL (1.5-5.0); LYMPH % 10.7 % (24.0-44.0); MEAN CORPUSCULAR HEMOGLOBIN 24.7 pg (27.0-33.0); MEAN CORPUSCULAR HGB CONC 29.5 g/dl (32.0-36.5); MEAN CORPUSCULAR VOLUME 83.7 fl (80.0-96.0); MONO # 0.5 10^3/uL (0.0-0.8); MONO % 5.9 % (2.0-8.0); NEUTROPHILS # 6.1 10^3/uL (1.5-8.5); NEUTROPHILS % 73.8 % (36.0-66.0); PLATELET COUNT, AUTOMATED 367 10^3/uL (150-450); RED BLOOD COUNT 3.68 10^6/uL (4.30-6.10); WHITE BLOOD COUNT 8.3 10^3/uL (4.0-10.0)
[2022-11-23 06:42] LABS: INR 1.37; PROTHROMBIN TIME 17.1 SECONDS (12.5-14.5)
[2022-11-23 06:49] LABS: ALBUMIN 2.4 G/DL (3.2-5.2); ALKALINE PHOSPHATASE 85 U/L (46-116); ALT/SGPT < 9 U/L (7.0-40); AST/SGOT < 8 U/L (<34); BILIRUBIN,TOTAL 0.2 MG/DL (0.3-1.2); BLOOD UREA NITROGEN 44 MG/DL (9-23); CALCIUM LEVEL 10.2 MG/DL (8.3-10.6); CARBON DIOXIDE LEVEL 24 MMOL/L (20-31); CHLORIDE LEVEL 105 MMOL/L (98-107); CREATININE FOR GFR 5.43 MG/DL (0.70-1.30); GLOMERULAR FILTRATION RATE 11.4 (>49); GLUCOSE, FASTING 160 MG/DL (74-106); MAGNESIUM LEVEL 2.2 MG/DL (1.8-2.4); PHOSPHORUS LEVEL 5.8 MG/DL (2.4-5.1); POTASSIUM SERUM 4.7 MMOL/L (3.5-5.1); SODIUM LEVEL 137 MMOL/L (136-145)
[2022-11-23] MEDS: oxyCODONE 5MG TAB PO PRN ×2 (07:21→16:13)
[2022-11-23] MEDS: PANTOPRAZOLE 40MG VIAL IV SCH (09:19)
[2022-11-23] MEDS: SUCROFERRIC OXYHYDROXIDE 500MG CHEW TAB (VELPHORO) PO SCH ×3 (09:19→17:36)
[2022-11-23] MEDS: ACETAMINOPHEN 500 MG TAB PO SCH ×2 (09:20→20:13)
[2022-11-23] MEDS: metroNIDAZOLE (FLAGYL) 500MG TABLET PO SCH ×3 (09:22→20:14)
[2022-11-23] MEDS: ATORVASTATIN 10 MG TAB PO SCH (09:22)
[2022-11-23] MEDS: CARVedilol 12.5 MG TAB PO SCH ×2 (09:22→20:14)
[2022-11-23] MEDS: APIXABAN 5 MG TAB (ELIQUIS) PO SCH ×2 (09:22→20:14)
[2022-11-23] MEDS: PREGABALIN 50 MG CAP (LYRICA) PO SCH ×2 (09:22→20:14)
[2022-11-23] MEDS: **hydrALAZINE** 50 MG TAB PO SCH ×3 (09:22→20:13)
[2022-11-23] MEDS: LIDOCAINE 5% (LIDODERM) PATCH TD SCH (09:26)
[2022-11-23 14:00] VITALS: BP 158/77; TEMP 97.9; O2SAT 96
[2022-11-23 19:22] VITALS: BP 165/77; TEMP 98.4; O2SAT 97
[2022-11-23 19:30] VITALS: BP 170/78
[2022-11-23] MEDS ORDERED: MORPHINE 2 MG/ML 1ML VIAL IV ONE (20:00)
[2022-11-23] MEDS ORDERED: oxyCODONE 5MG TAB PO PRN (20:00)
[2022-11-24] MEDS: oxyCODONE 5MG TAB PO PRN ×3 (00:57→18:46)
[2022-11-24] MEDS: **hydrALAZINE** 50 MG TAB PO SCH ×3 (05:22→19:50)
[2022-11-24] MEDS: ACETAMINOPHEN 500 MG TAB PO SCH ×2 (05:23→19:48)
[2022-11-24] MEDS: ATORVASTATIN 10 MG TAB PO SCH (05:24)
[2022-11-24] MEDS: APIXABAN 5 MG TAB (ELIQUIS) PO SCH ×2 (05:24→19:48)
[2022-11-24] MEDS: metroNIDAZOLE (FLAGYL) 500MG TABLET PO SCH (05:24)
[2022-11-24] MEDS: CARVedilol 12.5 MG TAB PO SCH ×2 (05:24→19:49)
[2022-11-24] MEDS: PANTOPRAZOLE 40MG VIAL IV SCH (05:25)
[2022-11-24] MEDS: LIDOCAINE 5% (LIDODERM) PATCH TD SCH (05:25)
[2022-11-24] MEDS: PREGABALIN 50 MG CAP (LYRICA) PO SCH ×2 (05:25→19:49)
[2022-11-24 05:40] VITALS: BP 172/97; TEMP 97.9; O2SAT 99
[2022-11-24 05:50] VITALS: BP 164/82
[2022-11-24 06:19] LABS: VANCOMYCIN RANDOM 18.2 UG/ML
[2022-11-24 06:21] LABS: ALBUMIN 2.6 G/DL (3.2-5.2); CALCIUM LEVEL 10.7 MG/DL (8.3-10.6); CREATININE FOR GFR 6.36 MG/DL (0.70-1.30); GLOMERULAR FILTRATION RATE 9.5 (>49); PHOSPHORUS LEVEL 6.2 MG/DL (2.4-5.1); POTASSIUM SERUM 5.3 MMOL/L (3.5-5.1)
[2022-11-24] MEDS: SUCROFERRIC OXYHYDROXIDE 500MG CHEW TAB (VELPHORO) PO SCH ×3 (06:44→17:35)
[2022-11-24] MEDS ORDERED: HEPARIN 1,000UNITS/ML 10ML VIAL (FOR RADIOLOGY & DIALYSIS ONLY) IV PRN (07:25)
[2022-11-24] MEDS ORDERED: HEPARIN 1,000UNITS/ML 10ML VIAL (FOR RADIOLOGY & DIALYSIS ONLY) XX SCH (07:25)
[2022-11-24] MEDS ORDERED: SODIUM CHLORIDE 0.9% 1000ML IV PRN (07:25)
[2022-11-24] MEDS: VANCOMYCIN HCL 1,000 MG, VIAL MATE ADAPTER 1 EACH in D5W 250 ML IV SCH (12:34)
[2022-11-24 14:00] VITALS: BP 178/82; TEMP 98.1; O2SAT 98
[2022-11-24] MEDS: ACETAMINOPHEN TAB 650MG DOSE (2X325MG) PO PRN (14:31)
[2022-11-24] MEDS ORDERED: KETOROLAC 30 MG/ML 1ML VIAL IV ONE (16:05)
[2022-11-24 19:21] VITALS: BP 175/98; TEMP 97.9; O2SAT 98
[2022-11-24 19:59] VITALS: BP 180/90
[2022-11-24 20:29] VITALS: BP 158/88
[2022-11-24] MEDS ORDERED: oxyCODONE 5MG TAB PO PRN (22:05)
[2022-11-25] MEDS: oxyCODONE 5MG TAB PO PRN ×3 (03:47→17:12)
[2022-11-25 05:12] VITALS: BP 143/74; TEMP 97.9; O2SAT 98
[2022-11-25 06:14] VITALS: BP 182/100; TEMP 98.1; O2SAT 100
[2022-11-25] MEDS ORDERED: KETOROLAC 30 MG/ML 1ML VIAL IV ONE (06:35)
[2022-11-25] MEDS ORDERED: amLODIPine 5 MG TAB PO ONE (06:35)
[2022-11-25] MEDS: ACETAMINOPHEN TAB 650MG DOSE (2X325MG) PO PRN (06:46)
[2022-11-25 08:23] LABS: ALBUMIN 2.7 G/DL (3.2-5.2); CALCIUM LEVEL 11.6 MG/DL (8.3-10.6); CREATININE FOR GFR 4.42 MG/DL (0.70-1.30); GLOMERULAR FILTRATION RATE 14.5 (>49); PHOSPHORUS LEVEL 5.4 MG/DL (2.4-5.1); POTASSIUM SERUM 5.4 MMOL/L (3.5-5.1)
[2022-11-25 09:15] LABS: PTH INTACT 238.6 PG/ML (18.5-88.0)
[2022-11-25] MEDS: PANTOPRAZOLE 40MG VIAL IV SCH (10:24)
[2022-11-25] MEDS: LIDOCAINE 5% (LIDODERM) PATCH TD SCH (10:24)
[2022-11-25] MEDS: ATORVASTATIN 10 MG TAB PO SCH (10:26)
[2022-11-25] MEDS: ACETAMINOPHEN 500 MG TAB PO SCH ×2 (10:26→21:16)
[2022-11-25] MEDS: APIXABAN 5 MG TAB (ELIQUIS) PO SCH ×2 (10:27→21:16)
[2022-11-25] MEDS: PREGABALIN 50 MG CAP (LYRICA) PO SCH ×2 (10:27→21:16)
[2022-11-25] MEDS: CARVedilol 12.5 MG TAB PO SCH ×2 (10:28→21:20)
[2022-11-25] MEDS: SUCROFERRIC OXYHYDROXIDE 500MG CHEW TAB (VELPHORO) PO SCH ×3 (10:29→17:12)
[2022-11-25] MEDS: **hydrALAZINE** 50 MG TAB PO SCH ×3 (10:29→21:20)
[2022-11-25] MEDS ORDERED: FUROSEMIDE 100MG/10ML VIAL IV ONE (11:35)
[2022-11-25 14:00] VITALS: BP 187/87; TEMP 98.1; O2SAT 97
[2022-11-25 20:26] VITALS: BP 154/79; TEMP 98.1; O2SAT 98
[2022-11-26] MEDS: oxyCODONE 5MG TAB PO PRN ×4 (00:43→21:12)
[2022-11-26] MEDS: **hydrALAZINE** 50 MG TAB PO SCH ×3 (05:11→21:15)
[2022-11-26] MEDS: CARVedilol 12.5 MG TAB PO SCH ×2 (05:11→21:14)
[2022-11-26] MEDS: PREGABALIN 50 MG CAP (LYRICA) PO SCH ×2 (05:12→21:11)
[2022-11-26] MEDS: APIXABAN 5 MG TAB (ELIQUIS) PO SCH ×2 (05:12→21:12)
[2022-11-26] MEDS: ATORVASTATIN 10 MG TAB PO SCH (05:12)
[2022-11-26] MEDS: ACETAMINOPHEN 500 MG TAB PO SCH ×2 (05:13→21:12)
[2022-11-26] MEDS: LIDOCAINE 5% (LIDODERM) PATCH TD SCH (05:14)
[2022-11-26] MEDS: PANTOPRAZOLE 40MG VIAL IV SCH (05:16)
[2022-11-26 05:24] VITALS: BP 140/84; TEMP 97.5; O2SAT 99
[2022-11-26] MEDS: SUCROFERRIC OXYHYDROXIDE 500MG CHEW TAB (VELPHORO) PO SCH ×3 (06:35→17:10)
[2022-11-26] MEDS ORDERED: HEPARIN 1,000UNITS/ML 10ML VIAL (FOR RADIOLOGY & DIALYSIS ONLY) XX SCH (07:20)
[2022-11-26] MEDS ORDERED: HEPARIN 1,000UNITS/ML 10ML VIAL (FOR RADIOLOGY & DIALYSIS ONLY) IV PRN (07:20)
[2022-11-26] MEDS ORDERED: SODIUM CHLORIDE 0.9% 1000ML IV PRN (07:20)
[2022-11-26 07:59] LABS: BASO # 0.2 10^3/uL (0.0-0.2); BASO % 1.5 % (0.0-1.0); EOS # 1.1 10^3/uL (0.0-0.5); EOS % 8.5 % (0.0-3.0); HEMATOCRIT 31.3 % (42.0-52.0); HEMOGLOBIN 9.2 g/dl (13.5-17.5); LYMPH # 1.2 10^3/uL (1.5-5.0); LYMPH % 9.3 % (24.0-44.0); MEAN CORPUSCULAR HEMOGLOBIN 24.6 pg (27.0-33.0); MEAN CORPUSCULAR HGB CONC 29.4 g/dl (32.0-36.5); MEAN CORPUSCULAR VOLUME 83.7 fl (80.0-96.0); MONO # 0.4 10^3/uL (0.0-0.8); MONO % 3.1 % (2.0-8.0); NEUTROPHILS # 9.6 10^3/uL (1.5-8.5); NEUTROPHILS % 76.6 % (36.0-66.0); PLATELET COUNT, AUTOMATED 501 10^3/uL (150-450); RED BLOOD COUNT 3.74 10^6/uL (4.30-6.10); WHITE BLOOD COUNT 12.5 10^3/uL (4.0-10.0)
[2022-11-26 08:45] LABS: CALCIUM LEVEL 11.4 MG/DL (8.3-10.6); CREATININE FOR GFR 5.4 MG/DL (0.70-1.30); GLOMERULAR FILTRATION RATE 11.5 (>49); POTASSIUM SERUM 5.6 MMOL/L (3.5-5.1)
[2022-11-26] MEDS ORDERED: PANTOPRAZOLE 40MG VIAL IV ONE (09:25)
[2022-11-26] MEDS: DARBEPOETIN 100MCG/0.5ML *DIALYSIS* SYRINGE IV SCH (10:12)
[2022-11-26 11:00] LABS: TOTAL 25(OH) VITAMIN D 48.2 NG/ML (20.0-100.0)
[2022-11-26] MEDS ORDERED: VANCOMYCIN HCL 1,000 MG, VIAL MATE ADAPTER 1 EACH in NS 250 ML IV SCH (11:35)
[2022-11-26 11:59] LABS: C REACTIVE PROTEIN QUANTITATIV 0.8 MG/DL (<1.0)
[2022-11-26] MEDS ORDERED: cefTAZidime 2 GM in D5W MINI-BAG PLUS 50 ML IV SCH (14:20)
[2022-11-26] MEDS: cefTAZidime 2 GM in D5W MINI-BAG PLUS 50 ML IV SCH (16:00)
[2022-11-26] MEDS ORDERED: KETOROLAC 30 MG/ML 1ML VIAL IM ONE (17:00)
[2022-11-26 21:16] VITALS: BP 161/81; TEMP 98.8; O2SAT 96
[2022-11-26] MEDS ORDERED: oxyCODONE 5MG TAB PO ONE (22:35)
[2022-11-27] MEDS: oxyCODONE 5MG TAB PO PRN ×2 (06:28→15:50)
[2022-11-27 06:50] VITALS: BP 174/84; TEMP 97.7; O2SAT 96
[2022-11-27] MEDS ORDERED: oxyCODONE 5MG TAB PO PRN (08:30)
[2022-11-27] MEDS: ACETAMINOPHEN 500 MG TAB PO SCH ×2 (09:08→21:58)
[2022-11-27] MEDS: SUCROFERRIC OXYHYDROXIDE 500MG CHEW TAB (VELPHORO) PO SCH ×3 (09:08→17:34)
[2022-11-27] MEDS: APIXABAN 5 MG TAB (ELIQUIS) PO SCH ×2 (09:09→21:59)
[2022-11-27] MEDS: CARVedilol 12.5 MG TAB PO SCH ×2 (09:09→21:58)
[2022-11-27] MEDS: **hydrALAZINE** 50 MG TAB PO SCH ×3 (09:09→21:59)
[2022-11-27] MEDS: PANTOPRAZOLE 40MG TAB (PROTONIX) PO SCH (09:09)
[2022-11-27] MEDS: PREGABALIN 50 MG CAP (LYRICA) PO SCH ×2 (09:10→21:59)
[2022-11-27] MEDS: LIDOCAINE 5% (LIDODERM) PATCH TD SCH (09:10)
[2022-11-27] MEDS: ATORVASTATIN 10 MG TAB PO SCH (09:10)
[2022-11-27] MEDS: oxyCODONE 5MG TAB PO SCH ×2 (10:54→21:59)
[2022-11-27] MEDS ORDERED: CEFTAZIDIME 2 GM IM ONE (12:00)
[2022-11-27] MEDS: TORSEMIDE (DEMADEX) 50 MG PER 1/2 TAB PO SCH (12:54)
[2022-11-27 14:00] VITALS: BP 162/86; TEMP 97.9; O2SAT 98
[2022-11-27 21:17] VITALS: BP 183/95; TEMP 97.9; O2SAT 98
[2022-11-28 06:13] VITALS: BP 177/90; TEMP 97.7; O2SAT 98
[2022-11-28] MEDS: SUCROFERRIC OXYHYDROXIDE 500MG CHEW TAB (VELPHORO) PO SCH ×3 (06:23→18:05)
[2022-11-28] MEDS: PANTOPRAZOLE 40MG TAB (PROTONIX) PO SCH (06:24)
[2022-11-28] MEDS: TORSEMIDE (DEMADEX) 50 MG PER 1/2 TAB PO SCH (06:24)
[2022-11-28] MEDS: APIXABAN 5 MG TAB (ELIQUIS) PO SCH ×2 (06:25→21:30)
[2022-11-28] MEDS: ATORVASTATIN 10 MG TAB PO SCH (06:25)
[2022-11-28] MEDS: PREGABALIN 50 MG CAP (LYRICA) PO SCH ×2 (06:25→21:30)
[2022-11-28 06:29] LABS: HEMOGLOBIN 9.2 g/dl (13.5-17.5); MEAN CORPUSCULAR HEMOGLOBIN 25.3 pg (27.0-33.0); MEAN CORPUSCULAR HGB CONC 29.7 g/dl (32.0-36.5); MEAN CORPUSCULAR VOLUME 85.2 fl (80.0-96.0); PLATELET COUNT, AUTOMATED 491 10^3/uL (150-450); RED BLOOD COUNT 3.64 10^6/uL (4.30-6.10)
[2022-11-28] MEDS: oxyCODONE 5MG TAB PO PRN ×2 (06:29→16:05)
[2022-11-28] MEDS: ACETAMINOPHEN 500 MG TAB PO SCH ×2 (06:30→21:29)
[2022-11-28 06:46] LABS: ALBUMIN 2.6 G/DL (3.2-5.2); CREATININE FOR GFR 5.35 MG/DL (0.70-1.30); GLOMERULAR FILTRATION RATE 11.6 (>49); PHOSPHORUS LEVEL 5.5 MG/DL (2.4-5.1); POTASSIUM SERUM 4.8 MMOL/L (3.5-5.1)
[2022-11-28] MEDS ORDERED: HEPARIN 1,000UNITS/ML 10ML VIAL (FOR RADIOLOGY & DIALYSIS ONLY) IV PRN (07:00)
[2022-11-28] MEDS ORDERED: HEPARIN 1,000UNITS/ML 10ML VIAL (FOR RADIOLOGY & DIALYSIS ONLY) XX SCH (07:00)
[2022-11-28] MEDS ORDERED: SODIUM CHLORIDE 0.9% 1000ML IV PRN (07:00)
[2022-11-28] MEDS: oxyCODONE 5MG TAB PO SCH ×2 (10:33→21:29)
[2022-11-28] MEDS: cefTAZidime 2 GM in D5W MINI-BAG PLUS 50 ML IV SCH (12:22)
[2022-11-28] MEDS: CARVedilol 12.5 MG TAB PO SCH ×2 (12:26→21:30)
[2022-11-28] MEDS: **hydrALAZINE** 50 MG TAB PO SCH ×3 (12:27→21:29)
[2022-11-28] MEDS: LIDOCAINE 5% (LIDODERM) PATCH TD SCH (12:28)
[2022-11-28 14:40] VITALS: BP 147/79; TEMP 98; O2SAT 98
[2022-11-28] MEDS: ACETAMINOPHEN TAB 650MG DOSE (2X325MG) PO PRN (18:55)
[2022-11-28 20:55] VITALS: BP 172/96; TEMP 98.1; O2SAT 99
[2022-11-29] MEDS: oxyCODONE 5MG TAB PO PRN ×2 (05:45→11:49)
[2022-11-29 06:03] VITALS: BP 106/71; TEMP 97.9; O2SAT 99
[2022-11-29] MEDS: APIXABAN 5 MG TAB (ELIQUIS) PO SCH ×2 (09:24→21:12)
[2022-11-29] MEDS: ATORVASTATIN 10 MG TAB PO SCH (09:25)
[2022-11-29] MEDS: TORSEMIDE (DEMADEX) 50 MG PER 1/2 TAB PO SCH (09:25)
[2022-11-29] MEDS: SUCROFERRIC OXYHYDROXIDE 500MG CHEW TAB (VELPHORO) PO SCH ×3 (09:25→16:54)
[2022-11-29] MEDS: ACETAMINOPHEN 500 MG TAB PO SCH ×2 (09:28→21:12)
[2022-11-29] MEDS: PREGABALIN 50 MG CAP (LYRICA) PO SCH ×2 (09:29→21:10)
[2022-11-29] MEDS: PANTOPRAZOLE 40MG TAB (PROTONIX) PO SCH (09:29)
[2022-11-29] MEDS: oxyCODONE 5MG TAB PO SCH ×2 (09:29→21:11)
[2022-11-29] MEDS: **hydrALAZINE** 50 MG TAB PO SCH ×3 (09:30→21:10)
[2022-11-29] MEDS: CARVedilol 12.5 MG TAB PO SCH ×2 (09:31→21:12)
[2022-11-29] MEDS: LIDOCAINE 5% (LIDODERM) PATCH TD SCH (09:32)
[2022-11-29 13:48] VITALS: BP 166/83; TEMP 97.9; O2SAT 99
[2022-11-29 19:38] VITALS: BP 165/84; TEMP 98.6; O2SAT 99
[2022-11-30 06:03] VITALS: BP 174/95; TEMP 97.9; O2SAT 98
[2022-11-30] MEDS: APIXABAN 5 MG TAB (ELIQUIS) PO SCH ×2 (06:15→22:26)
[2022-11-30] MEDS: ACETAMINOPHEN 500 MG TAB PO SCH ×2 (06:15→22:26)
[2022-11-30] MEDS: PREGABALIN 50 MG CAP (LYRICA) PO SCH ×3 (06:15→21:00)
[2022-11-30] MEDS: CARVedilol 12.5 MG TAB PO SCH ×2 (06:16→22:30)
[2022-11-30] MEDS: ATORVASTATIN 10 MG TAB PO SCH (06:17)
[2022-11-30] MEDS: PANTOPRAZOLE 40MG TAB (PROTONIX) PO SCH (06:17)
[2022-11-30] MEDS: TORSEMIDE (DEMADEX) 50 MG PER 1/2 TAB PO SCH (06:17)
[2022-11-30] MEDS: **hydrALAZINE** 50 MG TAB PO SCH ×3 (06:17→22:30)
[2022-11-30] MEDS: LIDOCAINE 5% (LIDODERM) PATCH TD SCH (06:18)
[2022-11-30] MEDS: SUCROFERRIC OXYHYDROXIDE 500MG CHEW TAB (VELPHORO) PO SCH ×3 (06:55→16:13)
[2022-11-30 07:02] VITALS: BP 136/70
[2022-11-30] MEDS: oxyCODONE 5MG TAB PO SCH ×2 (09:37→22:26)
[2022-11-30] MEDS: oxyCODONE 5MG TAB PO PRN (18:21)
[2022-11-30 23:08] LABS: PTH RELATED PEPTIDE < 2.0 pmol/L (.)
[2022-12-01] MEDS: oxyCODONE 5MG TAB PO PRN ×2 (04:47→17:04)
[2022-12-01 05:48] VITALS: BP 169/85; TEMP 98.1; O2SAT 98
[2022-12-01] MEDS ORDERED: HEPARIN 1,000UNITS/ML 10ML VIAL (FOR RADIOLOGY & DIALYSIS ONLY) XX SCH (06:00)
[2022-12-01] MEDS ORDERED: SODIUM CHLORIDE 0.9% 1000ML IV PRN (06:00)
[2022-12-01] MEDS ORDERED: HEPARIN 1,000UNITS/ML 10ML VIAL (FOR RADIOLOGY & DIALYSIS ONLY) IV PRN (06:00)
[2022-12-01] MEDS: ACETAMINOPHEN 500 MG TAB PO SCH ×2 (06:16→21:22)
[2022-12-01] MEDS: TORSEMIDE (DEMADEX) 50 MG PER 1/2 TAB PO SCH (06:16)
[2022-12-01] MEDS: CARVedilol 12.5 MG TAB PO SCH ×2 (06:16→21:21)
[2022-12-01] MEDS: PANTOPRAZOLE 40MG TAB (PROTONIX) PO SCH (06:17)
[2022-12-01] MEDS: APIXABAN 5 MG TAB (ELIQUIS) PO SCH ×2 (06:17→21:22)
[2022-12-01] MEDS: **hydrALAZINE** 50 MG TAB PO SCH (06:17)
[2022-12-01] MEDS: ATORVASTATIN 10 MG TAB PO SCH (06:18)
[2022-12-01] MEDS: PREGABALIN 50 MG CAP (LYRICA) PO SCH ×2 (06:18→21:22)
[2022-12-01] MEDS: LIDOCAINE 5% (LIDODERM) PATCH TD SCH (06:18)
[2022-12-01] MEDS: SUCROFERRIC OXYHYDROXIDE 500MG CHEW TAB (VELPHORO) PO SCH ×3 (06:18→17:04)
[2022-12-01] MEDS: oxyCODONE 5MG TAB PO SCH ×2 (11:00→21:26)
[2022-12-01] MEDS: ACETAMINOPHEN TAB 650MG DOSE (2X325MG) PO PRN (14:23)
[2022-12-01] MEDS: cefTAZidime 2 GM in D5W MINI-BAG PLUS 50 ML IV SCH (17:02)
[2022-12-02 06:00] VITALS: BP 167/83; TEMP 97.9; O2SAT 97
[2022-12-02] MEDS: oxyCODONE 5MG TAB PO PRN (06:12)
[2022-12-02] MEDS: SUCROFERRIC OXYHYDROXIDE 500MG CHEW TAB (VELPHORO) PO SCH ×3 (08:04→17:43)
[2022-12-02] MEDS: LIDOCAINE 5% (LIDODERM) PATCH TD SCH ×2 (08:05→22:06)
[2022-12-02] MEDS: TORSEMIDE (DEMADEX) 50 MG PER 1/2 TAB PO SCH (08:05)
[2022-12-02] MEDS: PANTOPRAZOLE 40MG TAB (PROTONIX) PO SCH (08:06)
[2022-12-02] MEDS: PREGABALIN 50 MG CAP (LYRICA) PO SCH ×3 (08:06→22:05)
[2022-12-02] MEDS: APIXABAN 5 MG TAB (ELIQUIS) PO SCH ×2 (08:06→22:05)
[2022-12-02] MEDS: ATORVASTATIN 10 MG TAB PO SCH (08:06)
[2022-12-02] MEDS: ACETAMINOPHEN 500 MG TAB PO SCH ×2 (08:06→22:04)
[2022-12-02] MEDS: CARVedilol 12.5 MG TAB PO SCH ×2 (08:07→22:06)
[2022-12-02] MEDS: oxyCODONE 5MG TAB PO SCH ×3 (10:05→18:05)
[2022-12-02] MEDS: ACETAMINOPHEN TAB 650MG DOSE (2X325MG) PO PRN (15:41)
[2022-12-02] MEDS ORDERED: oxyCODONE 5MG TAB PO ONE (18:00)
[2022-12-02 19:21] VITALS: BP 171/89; TEMP 97.5; O2SAT 97
[2022-12-03] MEDS ORDERED: HEPARIN 1,000UNITS/ML 10ML VIAL (FOR RADIOLOGY & DIALYSIS ONLY) XX SCH (06:00)
[2022-12-03] MEDS ORDERED: HEPARIN 1,000UNITS/ML 10ML VIAL (FOR RADIOLOGY & DIALYSIS ONLY) IV PRN (06:00)
[2022-12-03] MEDS ORDERED: SODIUM CHLORIDE 0.9% 1000ML IV PRN (06:00)
[2022-12-03 06:15] VITALS: BP 167/88; TEMP 97.9; O2SAT 96
[2022-12-03] MEDS: SUCROFERRIC OXYHYDROXIDE 500MG CHEW TAB (VELPHORO) PO SCH ×3 (06:29→18:00)
[2022-12-03] MEDS: oxyCODONE 5MG TAB PO PRN ×2 (06:30→17:43)
[2022-12-03] MEDS: CARVedilol 12.5 MG TAB PO SCH ×2 (06:31→21:02)
[2022-12-03] MEDS: PANTOPRAZOLE 40MG TAB (PROTONIX) PO SCH (07:27)
[2022-12-03] MEDS: TORSEMIDE (DEMADEX) 50 MG PER 1/2 TAB PO SCH (07:27)
[2022-12-03] MEDS: ACETAMINOPHEN 500 MG TAB PO SCH ×2 (07:28→21:00)
[2022-12-03] MEDS: APIXABAN 5 MG TAB (ELIQUIS) PO SCH ×2 (07:28→21:02)
[2022-12-03] MEDS: ATORVASTATIN 10 MG TAB PO SCH (07:28)
[2022-12-03] MEDS: PREGABALIN 50 MG CAP (LYRICA) PO SCH ×2 (09:00→21:03)
[2022-12-03] MEDS: DARBEPOETIN 100MCG/0.5ML *DIALYSIS* SYRINGE IV SCH (09:23)
[2022-12-03] MEDS: oxyCODONE 5MG TAB PO SCH ×2 (12:33→21:45)
[2022-12-03] MEDS: ACETAMINOPHEN TAB 650MG DOSE (2X325MG) PO PRN (13:36)
[2022-12-03] MEDS ORDERED: ACETAMINOPHEN 500 MG TAB PO ONE (18:25)
[2022-12-03 20:54] VITALS: BP 159/81
[2022-12-04 04:57] VITALS: BP 169/92; TEMP 97.7; O2SAT 97
[2022-12-04] MEDS: oxyCODONE 5MG TAB PO PRN ×2 (05:10→16:36)
[2022-12-04] MEDS: LIDOCAINE 5% (LIDODERM) PATCH TD SCH (09:00)
[2022-12-04] MEDS: PREGABALIN 50 MG CAP (LYRICA) PO SCH ×3 (09:00→21:29)
[2022-12-04] MEDS: SUCROFERRIC OXYHYDROXIDE 500MG CHEW TAB (VELPHORO) PO SCH ×3 (09:47→17:40)
[2022-12-04] MEDS: oxyCODONE 5MG TAB PO SCH ×2 (09:47→21:29)
[2022-12-04] MEDS: ATORVASTATIN 10 MG TAB PO SCH (09:48)
[2022-12-04] MEDS: TORSEMIDE (DEMADEX) 50 MG PER 1/2 TAB PO SCH (09:48)
[2022-12-04] MEDS: CARVedilol 12.5 MG TAB PO SCH ×2 (09:52→21:28)
[2022-12-04] MEDS: APIXABAN 5 MG TAB (ELIQUIS) PO SCH ×2 (09:53→21:29)
[2022-12-04] MEDS: PANTOPRAZOLE 40MG TAB (PROTONIX) PO SCH (09:53)
[2022-12-04] MEDS: ACETAMINOPHEN 500 MG TAB PO SCH ×2 (09:54→21:28)
[2022-12-04 09:56] VITALS: BP 135/62
[2022-12-05] MEDS ORDERED: HEPARIN 1,000UNITS/ML 10ML VIAL (FOR RADIOLOGY & DIALYSIS ONLY) IV PRN (06:00)
[2022-12-05] MEDS ORDERED: HEPARIN 1,000UNITS/ML 10ML VIAL (FOR RADIOLOGY & DIALYSIS ONLY) XX SCH (06:00)
[2022-12-05] MEDS ORDERED: SODIUM CHLORIDE 0.9% 1000ML IV PRN (06:00)
[2022-12-05] MEDS: SUCROFERRIC OXYHYDROXIDE 500MG CHEW TAB (VELPHORO) PO SCH ×3 (06:33→17:06)
[2022-12-05] MEDS: ATORVASTATIN 10 MG TAB PO SCH (06:34)
[2022-12-05] MEDS: TORSEMIDE (DEMADEX) 50 MG PER 1/2 TAB PO SCH (06:34)
[2022-12-05] MEDS: CARVedilol 12.5 MG TAB PO SCH ×2 (06:35→21:49)
[2022-12-05] MEDS: PREGABALIN 50 MG CAP (LYRICA) PO SCH ×2 (06:35→21:49)
[2022-12-05] MEDS: APIXABAN 5 MG TAB (ELIQUIS) PO SCH ×2 (06:35→21:49)
[2022-12-05] MEDS: ACETAMINOPHEN 500 MG TAB PO SCH ×2 (06:36→21:48)
[2022-12-05] MEDS: PANTOPRAZOLE 40MG TAB (PROTONIX) PO SCH (06:36)
[2022-12-05] MEDS: oxyCODONE 5MG TAB PO PRN ×2 (06:37→18:09)
[2022-12-05 07:08] VITALS: BP 183/90; TEMP 97.7; O2SAT 96
[2022-12-05] MEDS: LIDOCAINE 5% (LIDODERM) PATCH TD SCH (07:43)
[2022-12-05] MEDS: CINACALCET 30 MG TAB (SENSIPAR) PO SCH (07:43)
[2022-12-05] MEDS: oxyCODONE 5MG TAB PO SCH ×2 (10:07→21:48)
[2022-12-05] MEDS: ACETAMINOPHEN TAB 650MG DOSE (2X325MG) PO PRN (13:13)
[2022-12-05 17:17] VITALS: BP 144/67; TEMP 98.4; O2SAT 96
[2022-12-06] MEDS: oxyCODONE 5MG TAB PO PRN ×2 (05:32→17:24)
[2022-12-06 06:29] VITALS: BP 126/88; TEMP 97.7; O2SAT 96
[2022-12-06] MEDS: SUCROFERRIC OXYHYDROXIDE 500MG CHEW TAB (VELPHORO) PO SCH ×3 (08:17→17:23)
[2022-12-06] MEDS: PREGABALIN 50 MG CAP (LYRICA) PO SCH ×2 (08:18→21:52)
[2022-12-06] MEDS: CARVedilol 12.5 MG TAB PO SCH ×2 (08:18→21:51)
[2022-12-06] MEDS: APIXABAN 5 MG TAB (ELIQUIS) PO SCH ×2 (08:19→21:53)
[2022-12-06] MEDS: PANTOPRAZOLE 40MG TAB (PROTONIX) PO SCH (08:19)
[2022-12-06] MEDS: CINACALCET 30 MG TAB (SENSIPAR) PO SCH (08:19)
[2022-12-06] MEDS: ACETAMINOPHEN 500 MG TAB PO SCH ×2 (08:19→21:51)
[2022-12-06] MEDS: ATORVASTATIN 10 MG TAB PO SCH (08:19)
[2022-12-06] MEDS: LIDOCAINE 5% (LIDODERM) PATCH TD SCH (08:22)
[2022-12-06] MEDS: oxyCODONE 5MG TAB PO SCH ×2 (10:02→21:52)
[2022-12-06] MEDS: TORSEMIDE (DEMADEX) 50 MG PER 1/2 TAB PO SCH (10:02)
[2022-12-06 21:45] VITALS: BP 180/94; O2SAT 96
[2022-12-07] MEDS: oxyCODONE 5MG TAB PO PRN ×2 (05:56→21:57)
[2022-12-07 06:12] VITALS: BP_SYST 170; BP_SYST 172; BP_DIAS 110; BP_DIAS 80; TEMP 97.7; O2SAT 98
[2022-12-07] MEDS: ACETAMINOPHEN 500 MG TAB PO SCH ×2 (08:32→20:18)
[2022-12-07] MEDS: SUCROFERRIC OXYHYDROXIDE 500MG CHEW TAB (VELPHORO) PO SCH ×3 (08:32→17:16)
[2022-12-07] MEDS: PREGABALIN 50 MG CAP (LYRICA) PO SCH ×2 (08:32→21:57)
[2022-12-07] MEDS: CARVedilol 12.5 MG TAB PO SCH ×2 (08:34→21:55)
[2022-12-07] MEDS: TORSEMIDE (DEMADEX) 50 MG PER 1/2 TAB PO SCH (08:35)
[2022-12-07] MEDS: ATORVASTATIN 10 MG TAB PO SCH (08:35)
[2022-12-07] MEDS: APIXABAN 5 MG TAB (ELIQUIS) PO SCH ×2 (08:35→21:57)
[2022-12-07] MEDS: PANTOPRAZOLE 40MG TAB (PROTONIX) PO SCH (08:35)
[2022-12-07] MEDS: CINACALCET 30 MG TAB (SENSIPAR) PO SCH (08:38)
[2022-12-07] MEDS: LIDOCAINE 5% (LIDODERM) PATCH TD SCH (08:38)
[2022-12-07] MEDS: oxyCODONE 5MG TAB PO SCH ×2 (11:29→17:17)
[2022-12-08 05:44] LABS: MEAN CORPUSCULAR HEMOGLOBIN 26.6 pg (27.0-33.0); MEAN CORPUSCULAR HGB CONC 29.4 g/dl (32.0-36.5); MEAN CORPUSCULAR VOLUME 90.4 fl (80.0-96.0); PLATELET COUNT, AUTOMATED 344 10^3/uL (150-450); RED BLOOD COUNT 3.76 10^6/uL (4.30-6.10); WHITE BLOOD COUNT 8.8 10^3/uL (4.0-10.0)
[2022-12-08 06:00] VITALS: BP 153/79; TEMP 97.7; O2SAT 98
[2022-12-08 06:22] LABS: ALBUMIN 2.8 G/DL (3.2-5.2); CALCIUM LEVEL 9.6 MG/DL (8.3-10.6); CREATININE FOR GFR 6.21 MG/DL (0.70-1.30); GLOMERULAR FILTRATION RATE 9.8 (>49); PHOSPHORUS LEVEL 7.5 MG/DL (2.4-5.1); POTASSIUM SERUM 4.5 MMOL/L (3.5-5.1)
[2022-12-08] MEDS: CARVedilol 12.5 MG TAB PO SCH ×2 (06:24→22:19)
[2022-12-08] MEDS: ACETAMINOPHEN 500 MG TAB PO SCH ×2 (06:24→22:17)
[2022-12-08] MEDS: TORSEMIDE (DEMADEX) 50 MG PER 1/2 TAB PO SCH (06:24)
[2022-12-08] MEDS: PREGABALIN 50 MG CAP (LYRICA) PO SCH ×2 (06:25→22:19)
[2022-12-08] MEDS: PANTOPRAZOLE 40MG TAB (PROTONIX) PO SCH (06:25)
[2022-12-08] MEDS: ATORVASTATIN 10 MG TAB PO SCH (06:25)
[2022-12-08] MEDS: APIXABAN 5 MG TAB (ELIQUIS) PO SCH ×2 (06:25→22:19)
[2022-12-08] MEDS: SUCROFERRIC OXYHYDROXIDE 500MG CHEW TAB (VELPHORO) PO SCH ×3 (06:26→17:07)
[2022-12-08] MEDS ORDERED: HEPARIN 1,000UNITS/ML 10ML VIAL (FOR RADIOLOGY & DIALYSIS ONLY) IV PRN (07:05)
[2022-12-08] MEDS ORDERED: SODIUM CHLORIDE 0.9% 1000ML IV PRN (07:05)
[2022-12-08] MEDS ORDERED: HEPARIN 1,000UNITS/ML 10ML VIAL (FOR RADIOLOGY & DIALYSIS ONLY) XX SCH (07:05)
[2022-12-08] MEDS: LIDOCAINE 5% (LIDODERM) PATCH TD SCH (07:56)
[2022-12-08] MEDS: oxyCODONE 5MG TAB PO SCH ×2 (10:28→22:20)
[2022-12-08] MEDS: oxyCODONE 5MG TAB PO PRN ×2 (10:48→17:11)
[2022-12-08] MEDS: ACETAMINOPHEN TAB 650MG DOSE (2X325MG) PO PRN (12:06)
[2022-12-08] MEDS: CINACALCET 30 MG TAB (SENSIPAR) PO SCH (12:44)
[2022-12-08 22:14] VITALS: BP 162/90; TEMP 97.7
[2022-12-09] MEDS: oxyCODONE 5MG TAB PO PRN ×2 (05:29→16:10)
[2022-12-09 06:00] VITALS: BP 132/61; TEMP 98.1; O2SAT 98
[2022-12-09] MEDS: SUCROFERRIC OXYHYDROXIDE 500MG CHEW TAB (VELPHORO) PO SCH ×3 (08:49→17:36)
[2022-12-09] MEDS: ACETAMINOPHEN 500 MG TAB PO SCH ×2 (08:50→22:28)
[2022-12-09] MEDS: PREGABALIN 50 MG CAP (LYRICA) PO SCH ×2 (08:50→22:28)
[2022-12-09] MEDS: LIDOCAINE 5% (LIDODERM) PATCH TD SCH (08:50)
[2022-12-09] MEDS: PANTOPRAZOLE 40MG TAB (PROTONIX) PO SCH (08:51)
[2022-12-09] MEDS: CARVedilol 12.5 MG TAB PO SCH ×2 (08:52→22:31)
[2022-12-09] MEDS: TORSEMIDE (DEMADEX) 50 MG PER 1/2 TAB PO SCH (08:53)
[2022-12-09] MEDS: CINACALCET 30 MG TAB (SENSIPAR) PO SCH (08:53)
[2022-12-09] MEDS: APIXABAN 5 MG TAB (ELIQUIS) PO SCH ×2 (08:53→22:28)
[2022-12-09] MEDS: ATORVASTATIN 10 MG TAB PO SCH (08:53)
[2022-12-09] MEDS: oxyCODONE 5MG TAB PO SCH ×2 (10:12→22:29)
[2022-12-09 22:22] VITALS: BP 144/62
[2022-12-10] MEDS: oxyCODONE 5MG TAB PO PRN ×2 (04:58→17:47)
[2022-12-10] MEDS ORDERED: HEPARIN 1,000UNITS/ML 10ML VIAL (FOR RADIOLOGY & DIALYSIS ONLY) XX SCH (05:15)
[2022-12-10] MEDS ORDERED: SODIUM CHLORIDE 0.9% 1000ML IV PRN (05:15)
[2022-12-10] MEDS ORDERED: HEPARIN 1,000UNITS/ML 10ML VIAL (FOR RADIOLOGY & DIALYSIS ONLY) IV PRN (05:15)
[2022-12-10 06:17] VITALS: BP_SYST 168; BP_SYST 171; BP_DIAS 106; BP_DIAS 80; TEMP 97.7; O2SAT 96
[2022-12-10] MEDS: PREGABALIN 50 MG CAP (LYRICA) PO SCH ×2 (06:35→20:18)
[2022-12-10] MEDS: SUCROFERRIC OXYHYDROXIDE 500MG CHEW TAB (VELPHORO) PO SCH ×3 (06:36→17:47)
[2022-12-10] MEDS: ACETAMINOPHEN 500 MG TAB PO SCH ×2 (06:36→20:17)
[2022-12-10] MEDS: TORSEMIDE (DEMADEX) 50 MG PER 1/2 TAB PO SCH (06:37)
[2022-12-10] MEDS: CARVedilol 12.5 MG TAB PO SCH ×2 (06:41→20:18)
[2022-12-10] MEDS: APIXABAN 5 MG TAB (ELIQUIS) PO SCH ×2 (06:42→20:18)
[2022-12-10] MEDS: PANTOPRAZOLE 40MG TAB (PROTONIX) PO SCH (06:42)
[2022-12-10] MEDS: ATORVASTATIN 10 MG TAB PO SCH (06:42)
[2022-12-10] MEDS: LIDOCAINE 5% (LIDODERM) PATCH TD SCH (06:43)
[2022-12-10] MEDS: CINACALCET 30 MG TAB (SENSIPAR) PO SCH (07:09)
[2022-12-10] MEDS: DARBEPOETIN 100MCG/0.5ML *DIALYSIS* SYRINGE IV SCH (09:04)
[2022-12-10] MEDS: oxyCODONE 5MG TAB PO SCH ×3 (10:00→22:23)
[2022-12-10] MEDS: ACETAMINOPHEN TAB 650MG DOSE (2X325MG) PO PRN (11:58)
[2022-12-11] MEDS: oxyCODONE 5MG TAB PO PRN ×2 (04:28→16:09)
[2022-12-11 06:03] VITALS: BP 158/77; TEMP 97.7; O2SAT 96
[2022-12-11] MEDS: ACETAMINOPHEN 500 MG TAB PO SCH ×2 (08:03→21:07)
[2022-12-11] MEDS: LIDOCAINE 5% (LIDODERM) PATCH TD SCH (08:03)
[2022-12-11] MEDS: PREGABALIN 50 MG CAP (LYRICA) PO SCH ×2 (08:03→21:08)
[2022-12-11] MEDS: APIXABAN 5 MG TAB (ELIQUIS) PO SCH ×2 (08:03→21:07)
[2022-12-11] MEDS: ATORVASTATIN 10 MG TAB PO SCH (08:03)
[2022-12-11] MEDS: SUCROFERRIC OXYHYDROXIDE 500MG CHEW TAB (VELPHORO) PO SCH ×3 (08:03→17:36)
[2022-12-11] MEDS: CINACALCET 30 MG TAB (SENSIPAR) PO SCH (08:04)
[2022-12-11] MEDS: PANTOPRAZOLE 40MG TAB (PROTONIX) PO SCH (08:04)
[2022-12-11] MEDS: CARVedilol 12.5 MG TAB PO SCH ×2 (08:05→21:08)
[2022-12-11] MEDS: TORSEMIDE (DEMADEX) 50 MG PER 1/2 TAB PO SCH (08:05)
[2022-12-11] MEDS: oxyCODONE 5MG TAB PO SCH ×2 (10:02→23:10)
[2022-12-12] MEDS ORDERED: SODIUM CHLORIDE 0.9% 1000ML IV PRN (00:25)
[2022-12-12] MEDS ORDERED: HEPARIN 1,000UNITS/ML 10ML VIAL (FOR RADIOLOGY & DIALYSIS ONLY) IV PRN (00:25)
[2022-12-12] MEDS ORDERED: HEPARIN 1,000UNITS/ML 10ML VIAL (FOR RADIOLOGY & DIALYSIS ONLY) XX SCH (00:25)
[2022-12-12] MEDS: oxyCODONE 5MG TAB PO PRN ×2 (05:07→16:56)
[2022-12-12] MEDS: ATORVASTATIN 10 MG TAB PO SCH (06:23)
[2022-12-12] MEDS: ACETAMINOPHEN 500 MG TAB PO SCH ×2 (06:23→21:29)
[2022-12-12] MEDS: SUCROFERRIC OXYHYDROXIDE 500MG CHEW TAB (VELPHORO) PO SCH ×3 (06:23→16:57)
[2022-12-12] MEDS: CARVedilol 12.5 MG TAB PO SCH ×2 (06:28→21:30)
[2022-12-12] MEDS: PREGABALIN 50 MG CAP (LYRICA) PO SCH ×2 (06:28→21:30)
[2022-12-12] MEDS: PANTOPRAZOLE 40MG TAB (PROTONIX) PO SCH (06:29)
[2022-12-12] MEDS: APIXABAN 5 MG TAB (ELIQUIS) PO SCH ×2 (06:29→21:31)
[2022-12-12] MEDS: TORSEMIDE (DEMADEX) 50 MG PER 1/2 TAB PO SCH (06:29)
[2022-12-12] MEDS: CINACALCET 30 MG TAB (SENSIPAR) PO SCH (06:29)
[2022-12-12] MEDS: LIDOCAINE 5% (LIDODERM) PATCH TD SCH (07:38)
[2022-12-12] MEDS: oxyCODONE 5MG TAB PO SCH ×2 (10:13→21:34)
[2022-12-13] MEDS: oxyCODONE 5MG TAB PO PRN (05:18)
[2022-12-13 06:55] VITALS: BP 195/94; TEMP 97.3; O2SAT 96
[2022-12-13] MEDS: APIXABAN 5 MG TAB (ELIQUIS) PO SCH ×2 (08:16→20:38)
[2022-12-13] MEDS: SUCROFERRIC OXYHYDROXIDE 500MG CHEW TAB (VELPHORO) PO SCH ×3 (08:16→17:17)
[2022-12-13] MEDS: PANTOPRAZOLE 40MG TAB (PROTONIX) PO SCH (08:16)
[2022-12-13] MEDS: PREGABALIN 50 MG CAP (LYRICA) PO SCH ×2 (08:18→20:39)
[2022-12-13] MEDS: CINACALCET 30 MG TAB (SENSIPAR) PO SCH (08:18)
[2022-12-13] MEDS: ACETAMINOPHEN 500 MG TAB PO SCH ×2 (08:18→20:38)
[2022-12-13] MEDS: TORSEMIDE (DEMADEX) 50 MG PER 1/2 TAB PO SCH (08:19)
[2022-12-13] MEDS: CARVedilol 12.5 MG TAB PO SCH ×2 (08:19→20:38)
[2022-12-13] MEDS: ATORVASTATIN 10 MG TAB PO SCH (08:19)
[2022-12-13] MEDS: LIDOCAINE 5% (LIDODERM) PATCH TD SCH (08:20)
[2022-12-13] MEDS: oxyCODONE 5MG TAB PO SCH ×2 (09:18→20:39)
[2022-12-14] MEDS: oxyCODONE 5MG TAB PO PRN (04:44)
[2022-12-14 05:55] VITALS: BP 170/90; TEMP 97.5; O2SAT 98
[2022-12-14] MEDS: ATORVASTATIN 10 MG TAB PO SCH (08:22)
[2022-12-14] MEDS: TORSEMIDE (DEMADEX) 50 MG PER 1/2 TAB PO SCH (08:23)
[2022-12-14] MEDS: CARVedilol 12.5 MG TAB PO SCH ×2 (08:24→21:14)
[2022-12-14] MEDS: SUCROFERRIC OXYHYDROXIDE 500MG CHEW TAB (VELPHORO) PO SCH ×3 (08:25→18:22)
[2022-12-14] MEDS: APIXABAN 5 MG TAB (ELIQUIS) PO SCH ×2 (08:25→21:14)
[2022-12-14] MEDS: PREGABALIN 50 MG CAP (LYRICA) PO SCH ×2 (08:25→21:14)
[2022-12-14] MEDS: ACETAMINOPHEN 500 MG TAB PO SCH ×2 (08:25→21:13)
[2022-12-14] MEDS: PANTOPRAZOLE 40MG TAB (PROTONIX) PO SCH (08:26)
[2022-12-14] MEDS: LIDOCAINE 5% (LIDODERM) PATCH TD SCH (08:26)
[2022-12-14] MEDS: CINACALCET 30 MG TAB (SENSIPAR) PO SCH (08:27)
[2022-12-14] MEDS: oxyCODONE 5MG TAB PO SCH ×2 (11:52→21:15)
[2022-12-15] MEDS: CINACALCET 30 MG TAB (SENSIPAR) PO SCH (05:30)
[2022-12-15] MEDS: TORSEMIDE (DEMADEX) 50 MG PER 1/2 TAB PO SCH (05:31)
[2022-12-15] MEDS: ACETAMINOPHEN 500 MG TAB PO SCH ×2 (05:31→20:28)
[2022-12-15] MEDS: PREGABALIN 50 MG CAP (LYRICA) PO SCH ×2 (05:31→20:27)
[2022-12-15] MEDS: CARVedilol 12.5 MG TAB PO SCH ×2 (05:32→20:27)
[2022-12-15] MEDS: ATORVASTATIN 10 MG TAB PO SCH (05:32)
[2022-12-15] MEDS: APIXABAN 5 MG TAB (ELIQUIS) PO SCH ×2 (05:33→20:27)
[2022-12-15] MEDS: PANTOPRAZOLE 40MG TAB (PROTONIX) PO SCH (05:33)
[2022-12-15 06:00] VITALS: BP 168/78; TEMP 97.5; O2SAT 98
[2022-12-15] MEDS: LIDOCAINE 5% (LIDODERM) PATCH TD SCH (07:57)
[2022-12-15] MEDS: SUCROFERRIC OXYHYDROXIDE 500MG CHEW TAB (VELPHORO) PO SCH ×3 (07:57→18:38)
[2022-12-15] MEDS ORDERED: SODIUM CHLORIDE 0.9% 1000ML IV PRN (09:10)
[2022-12-15] MEDS ORDERED: HEPARIN 1,000UNITS/ML 10ML VIAL (FOR RADIOLOGY & DIALYSIS ONLY) XX SCH (09:10)
[2022-12-15] MEDS ORDERED: HEPARIN 1,000UNITS/ML 10ML VIAL (FOR RADIOLOGY & DIALYSIS ONLY) IV PRN (09:10)
[2022-12-15] MEDS: oxyCODONE 5MG TAB PO SCH ×2 (10:26→22:21)
[2022-12-16] MEDS: oxyCODONE 5MG TAB PO PRN ×2 (03:27→16:07)
[2022-12-16 06:08] VITALS: BP 162/83; TEMP 97.7; O2SAT 97
[2022-12-16] MEDS: LIDOCAINE 5% (LIDODERM) PATCH TD SCH ×3 (08:19→09:00)
[2022-12-16] MEDS: PREGABALIN 50 MG CAP (LYRICA) PO SCH (08:19)
[2022-12-16] MEDS: ATORVASTATIN 10 MG TAB PO SCH (08:19)
[2022-12-16] MEDS: SUCROFERRIC OXYHYDROXIDE 500MG CHEW TAB (VELPHORO) PO SCH ×2 (08:19→12:11)
[2022-12-16 08:20] VITALS: BP 159/81
[2022-12-16] MEDS: CINACALCET 30 MG TAB (SENSIPAR) PO SCH (08:20)
[2022-12-16] MEDS: APIXABAN 5 MG TAB (ELIQUIS) PO SCH (08:20)
[2022-12-16] MEDS: CARVedilol 12.5 MG TAB PO SCH (08:20)
[2022-12-16] MEDS: PANTOPRAZOLE 40MG TAB (PROTONIX) PO SCH (08:21)
[2022-12-16] MEDS: TORSEMIDE (DEMADEX) 50 MG PER 1/2 TAB PO SCH (08:21)
[2022-12-16] MEDS: ACETAMINOPHEN 500 MG TAB PO SCH (08:21)
[2022-12-16] MEDS: oxyCODONE 5MG TAB PO SCH (10:04)
[2022-12-16] MEDS ORDERED: CARV12.5 PO (12:55)
[2022-12-16] MEDS ORDERED: VELP5CHW PO (12:55)
[2022-12-16] MEDS ORDERED: MINO2.5T PO (12:55)
[2022-12-16] MEDS ORDERED: PREG50CA PO (12:55)
[2022-12-16] MEDS ORDERED: OXYC-517 PO (12:55)
[2022-12-16] MEDS ORDERED: ACET1TAB55 PO (12:55)
[2022-12-16] MEDS ORDERED: ATOR1TAB19 PO (12:55)
[2022-12-16] MEDS ORDERED: BISA10SU PR (12:55)
[2022-12-16] MEDS ORDERED: CINA30TA5 PO (12:55)
[2022-12-16] MEDS ORDERED: TORS100T PO (12:55)
[2022-12-17] MEDS ORDERED: SODIUM CHLORIDE 0.9% 1000ML IV PRN (06:00)
[2022-12-17] MEDS ORDERED: HEPARIN 1,000UNITS/ML 10ML VIAL (FOR RADIOLOGY & DIALYSIS ONLY) XX SCH (06:00)
[2022-12-17] MEDS ORDERED: HEPARIN 1,000UNITS/ML 10ML VIAL (FOR RADIOLOGY & DIALYSIS ONLY) IV PRN (06:00)
== END 2022-12-16 17:04 | disposition home or self-care (01) | DRG 474 ==
LOC: M ED 15:51 → M ED INP 19:48 → M MS5PR 23:25 → M ICU 11-19 09:06 → M MS5PR 11-22 14:40 → UNDODISIN 11-26 17:45
PROVIDERS: ADMIT Internal Medicine; ATTEND Family Medicine
PROC: 5A1D70Z Performance of Urinary Filtration, Intermittent, Less than 6 Hours Per Day (ICD-10-PCS; 2022-11-11)
PROC: 0KBW0ZZ Excision of Left Foot Muscle, Open Approach (ICD-10-PCS; 2022-11-12)
PROC: 0Y6M0ZD Detachment at Right Foot, Partial 4th Ray, Open Approach (ICD-10-PCS; 2022-11-21)
PROC: 0Y6M0ZF Detachment at Right Foot, Partial 5th Ray, Open Approach (ICD-10-PCS; 2022-11-21)
PROC: B246ZZZ Ultrasonography of Right and Left Heart (ICD-10-PCS; 2022-11-21)
PROC: 0Y6M0ZC Detachment at Right Foot, Partial 3rd Ray, Open Approach (ICD-10-PCS; principal; 2022-11-21 11:30)
DX: T87.43 Infection of amputation stump, right lower extremity (principal); N18.6 End stage renal disease; J96.01 Acute respiratory failure with hypoxia; J96.02 Acute respiratory failure with hypercapnia; G92.8 Other toxic encephalopathy; I12.0 Hypertensive chronic kidney disease with stage 5 chronic kidney disease or end stage renal disease; L97.528 Non-pressure chronic ulcer of other part of left foot with other specified severity; M86.171 Other acute osteomyelitis, right ankle and foot; N25.81 Secondary hyperparathyroidism of renal origin; L03.115 Cellulitis of right lower limb; D45 Polycythemia vera; G89.29 Other chronic pain; E78.5 Hyperlipidemia, unspecified; M10.9 Gout, unspecified; K21.9 Gastro-esophageal reflux disease without esophagitis; D63.1 Anemia in chronic kidney disease; E11.51 Type 2 diabetes mellitus with diabetic peripheral angiopathy without gangrene; E11.22 Type 2 diabetes mellitus with diabetic chronic kidney disease; M48.061 Spinal stenosis, lumbar region without neurogenic claudication; E11.42 Type 2 diabetes mellitus with diabetic polyneuropathy; M47.26 Other spondylosis with radiculopathy, lumbar region; F32.A Depression, unspecified; Z79.01 Long term (current) use of anticoagulants; Z89.512 Acquired absence of left leg below knee; Z89.411 Acquired absence of right great toe; Z96.651 Presence of right artificial knee joint; Z79.899 Other long term (current) drug therapy; Z89.412 Acquired absence of left great toe; Z88.8 Allergy status to other drugs, medicaments and biological substances; Z91.048 Other nonmedicinal substance allergy status; Z87.891 Personal history of nicotine dependence; Z99.2 Dependence on renal dialysis; Z86.718 Personal history of other venous thrombosis and embolism; Z91.158 Patient's noncompliance with renal dialysis for other reason; Z86.711 Personal history of pulmonary embolism; E11.621 Type 2 diabetes mellitus with foot ulcer; T40.2X5A Adverse effect of other opioids, initial encounter; E87.70 Fluid overload, unspecified; R51.9 Headache, unspecified; M25.512 Pain in left shoulder; G47.33 Obstructive sleep apnea (adult) (pediatric); I25.10 Atherosclerotic heart disease of native coronary artery without angina pectoris; E83.39 Other disorders of phosphorus metabolism; I70.221 Atherosclerosis of native arteries of extremities with rest pain, right leg; E83.52 Hypercalcemia; B95.61 Methicillin susceptible Staphylococcus aureus infection as the cause of diseases classified elsewhere; B95.2 Enterococcus as the cause of diseases classified elsewhere

== ENCOUNTER 2022-12-24 18:05 | Emergency (ER) | payer MEDICARE, MEDICAID ==
[~2022-12-24] VITALS: Ht 193 cm; Wt 113.2 kg
[~2022-12-24 18:05] MED LIST changes: +BISA10SU PR; +CINA30TA5 PO; +PREG50CA PO; +VELP5CHW PO
[2022-12-24 18:29] VITALS: TEMP 97.9
[2022-12-24] MEDS ORDERED: CARVedilol 12.5 MG TAB PO ONE (18:40)
[2022-12-24] MEDS ORDERED: oxyCODONE 5MG TAB PO ONE (18:40)
[2022-12-24 19:16] VITALS: BP 179/90
[2022-12-24 19:20] VITALS: O2SAT 98
[2022-12-24 19:38] LABS: BASO # 0.1 10^3/uL (0.0-0.2); BASO % 1.1 % (0.0-1.0); EOS # 0.6 10^3/uL (0.0-0.5); EOS % 7.1 % (0.0-3.0); HEMATOCRIT 40.7 % (42.0-52.0); HEMOGLOBIN 12.7 g/dl (13.5-17.5); LYMPH # 0.8 10^3/uL (1.5-5.0); LYMPH % 9.1 % (24.0-44.0); MEAN CORPUSCULAR HEMOGLOBIN 28.2 pg (27.0-33.0); MEAN CORPUSCULAR HGB CONC 31.2 g/dl (32.0-36.5); MEAN CORPUSCULAR VOLUME 90.4 fl (80.0-96.0); MONO # 0.5 10^3/uL (0.0-0.8); MONO % 5.8 % (2.0-8.0); NEUTROPHILS # 6.7 10^3/uL (1.5-8.5); NEUTROPHILS % 76.4 % (36.0-66.0); PLATELET COUNT, AUTOMATED 295 10^3/uL (150-450); WHITE BLOOD COUNT 8.8 10^3/uL (4.0-10.0)
[2022-12-24 19:54] LABS: ERYTHROCYTE SEDIMENTATION RATE 21 mm/hr (0-20)
[2022-12-24 20:05] LABS: CALCIUM LEVEL 9.4 MG/DL (8.3-10.6); CREATININE FOR GFR 5.34 MG/DL (0.70-1.30); GLOMERULAR FILTRATION RATE 11.7 (>49); POTASSIUM SERUM 4.4 MMOL/L (3.5-5.1)
[2022-12-24] MEDS ORDERED: OXYC-517 PO (20:25)
== END 2022-12-24 20:55 | disposition home or self-care (01) ==
LOC: EDBD 18:05 → M ED 18:05
DX: G89.18 Other acute postprocedural pain (principal); I10 Essential (primary) hypertension; E11.9 Type 2 diabetes mellitus without complications; E78.5 Hyperlipidemia, unspecified; I73.9 Peripheral vascular disease, unspecified; Z86.718 Personal history of other venous thrombosis and embolism; Z86.711 Personal history of pulmonary embolism; G47.33 Obstructive sleep apnea (adult) (pediatric); Z79.899 Other long term (current) drug therapy

== ENCOUNTER 2023-01-26 13:51 | Emergency (ER) | payer MEDICARE, MEDICAID ==
[~2023-01-26 13:51] MED LIST changes: +CELE0.09 PO; -CELE1CAP9 PO
[2023-01-26] MEDS ORDERED: oxyCODONE 5MG TAB PO ONE (15:45)
[2023-01-26 16:28] LABS: BASO # 0.1 10^3/uL (0.0-0.2); BASO % 1.3 % (0.0-1.0); EOS # 0.4 10^3/uL (0.0-0.5); EOS % 4.7 % (0.0-3.0); HEMATOCRIT 52.5 % (42.0-52.0); HEMOGLOBIN 16.7 g/dl (13.5-17.5); LYMPH # 0.6 10^3/uL (1.5-5.0); LYMPH % 6.5 % (24.0-44.0); MEAN CORPUSCULAR HEMOGLOBIN 27.5 pg (27.0-33.0); MEAN CORPUSCULAR HGB CONC 31.8 g/dl (32.0-36.5); MEAN CORPUSCULAR VOLUME 86.5 fl (80.0-96.0); MONO # 0.3 10^3/uL (0.0-0.8); MONO % 3.4 % (2.0-8.0); NEUTROPHILS # 7.7 10^3/uL (1.5-8.5); NEUTROPHILS % 83.3 % (36.0-66.0); PLATELET COUNT, AUTOMATED 314 10^3/uL (150-450); RED BLOOD COUNT 6.07 10^6/uL (4.30-6.10); WHITE BLOOD COUNT 9.2 10^3/uL (4.0-10.0)
[2023-01-26 16:45] LABS: LIPASE 111 U/L (12-53)
[2023-01-26 16:47] LABS: ALBUMIN 3.8 G/DL (3.2-5.2); ALKALINE PHOSPHATASE 113 U/L (46-116); ALT/SGPT 10 U/L (7.0-40); AST/SGOT < 8 U/L (<34); BILIRUBIN,DIRECT 0.2 MG/DL (<0.4); BILIRUBIN,TOTAL 0.6 MG/DL (0.3-1.2); BLOOD UREA NITROGEN 61 MG/DL (9-23); CARBON DIOXIDE LEVEL 23 MMOL/L (20-31); CHLORIDE LEVEL 103 MMOL/L (98-107); CREATININE FOR GFR 7.61 MG/DL (0.70-1.30); GLOMERULAR FILTRATION RATE 7.7 (>49); GLUCOSE, FASTING 116 MG/DL (74-106); POTASSIUM SERUM 4.3 MMOL/L (3.5-5.1); SODIUM LEVEL 137 MMOL/L (136-145); TOTAL PROTEIN 6.9 G/DL (5.7-8.2)
[2023-01-26 16:47] LABS: INR 1.32
[2023-01-26 16:48] LABS: PARTIAL THROMBOPLASTIN TIME 37.3 SECONDS (24.8-34.2)
[2023-01-26 17:00] LABS: RSV AMPLIFICATION NEGATIVE (NEGATIVE)
[2023-01-26] MEDS ORDERED: ISOVUE-370 76% 100ML VIAL As Ordered ONE (17:08)
[2023-01-26 18:08] VITALS: BP 133/87; TEMP 97.1; O2SAT 97
== END 2023-01-26 18:42 | disposition home or self-care (01) ==
LOC: EDBD 13:51 → M ED 13:51
DX: I95.9 Hypotension, unspecified (principal); R11.10 Vomiting, unspecified; R19.7 Diarrhea, unspecified; I12.9 Hypertensive chronic kidney disease with stage 1 through stage 4 chronic kidney disease, or unspecified chronic kidney disease; E78.5 Hyperlipidemia, unspecified; E11.40 Type 2 diabetes mellitus with diabetic neuropathy, unspecified; G40.909 Epilepsy, unspecified, not intractable, without status epilepticus; G47.33 Obstructive sleep apnea (adult) (pediatric); K21.9 Gastro-esophageal reflux disease without esophagitis; N18.6 End stage renal disease; M54.9 Dorsalgia, unspecified; F41.9 Anxiety disorder, unspecified; F32.A Depression, unspecified; F43.10 Post-traumatic stress disorder, unspecified; Z79.01 Long term (current) use of anticoagulants; Z79.899 Other long term (current) drug therapy; Z91.041 Radiographic dye allergy status
CPT/HCPCS: 36415; 74177; 80048; 80076; 83605; 83690; 85025; 85610; 85730; 87040; 87631; 99284; Q9967

== ENCOUNTER 2023-03-18 12:23 | Emergency (ER) | payer MEDICARE, MEDICAID ==
[~2023-03-18] VITALS: Ht 195.6 cm; Wt 90.9 kg
[2023-03-18 15:39] VITALS: BP 158/83; TEMP 96.9; O2SAT 99
[2023-03-18 16:36] LABS: BASO # 0.1 10^3/uL (0.0-0.2); BASO % 1.3 % (0.0-1.0); EOS # 0.5 10^3/uL (0.0-0.5); EOS % 5.2 % (0.0-3.0); HEMOGLOBIN 15.7 g/dl (13.5-17.5); LYMPH % 9.9 % (24.0-44.0); MEAN CORPUSCULAR HEMOGLOBIN 24.9 pg (27.0-33.0); MEAN CORPUSCULAR HGB CONC 30.2 g/dl (32.0-36.5); MEAN CORPUSCULAR VOLUME 82.4 fl (80.0-96.0); MONO # 0.4 10^3/uL (0.0-0.8); MONO % 3.9 % (2.0-8.0); NEUTROPHILS # 7.7 10^3/uL (1.5-8.5); NEUTROPHILS % 78.7 % (36.0-66.0); PLATELET COUNT, AUTOMATED 310 10^3/uL (150-450); RED BLOOD COUNT 6.31 10^6/uL (4.30-6.10); WHITE BLOOD COUNT 9.8 10^3/uL (4.0-10.0)
[2023-03-18 16:47] LABS: HEMOGLOBIN A1c 6.2 % (4.0-6.0)
[2023-03-18 16:49] LABS: ALBUMIN 3.7 G/DL (3.2-5.2); BILIRUBIN,DIRECT 0.2 MG/DL (<0.4); BILIRUBIN,TOTAL 0.6 MG/DL (0.3-1.2); CALCIUM LEVEL 10.2 MG/DL (8.3-10.6); CREATININE FOR GFR 7.05 MG/DL (0.70-1.30); GLOMERULAR FILTRATION RATE 8.5 (>49); MAGNESIUM LEVEL 2.5 MG/DL (1.8-2.4); PHOSPHORUS LEVEL 7.2 MG/DL (2.4-5.1); POTASSIUM SERUM 4.6 MMOL/L (3.5-5.1); TOTAL PROTEIN 6.5 G/DL (5.7-8.2)
[2023-03-18 16:50] LABS: ACETONE/KETONE 0.12 MMOL/L (0.02-0.27)
[2023-03-18] MEDS ORDERED: GLUCMIS7 XX (17:38)
== END 2023-03-18 18:00 | disposition home or self-care (01) ==
LOC: M ED 12:23
DX: E11.649 Type 2 diabetes mellitus with hypoglycemia without coma (principal); I10 Essential (primary) hypertension; E78.5 Hyperlipidemia, unspecified; E11.40 Type 2 diabetes mellitus with diabetic neuropathy, unspecified; K21.9 Gastro-esophageal reflux disease without esophagitis; N18.2 Chronic kidney disease, stage 2 (mild); F41.9 Anxiety disorder, unspecified; F32.A Depression, unspecified; F43.10 Post-traumatic stress disorder, unspecified; F12.90 Cannabis use, unspecified, uncomplicated; Z86.718 Personal history of other venous thrombosis and embolism; Z87.891 Personal history of nicotine dependence; Z99.2 Dependence on renal dialysis; Z79.01 Long term (current) use of anticoagulants; Z79.899 Other long term (current) drug therapy; Z88.7 Allergy status to serum and vaccine; Z91.89 Other specified personal risk factors, not elsewhere classified

== ENCOUNTER → 2023-03-24 | Outpatient (CLI) | payer MEDICARE, MEDICAID ==
[~2023-03-24] MED LIST changes: +GLUCMIS7 XX; +PROHANCE 279.3MG/ML 15ML VIAL As Ordered ONE; +PROHANCE 279.3MG/ML 5ML VIAL As Ordered ONE
== END ==
LOC: M RAD 09:22
PROVIDERS: ATTEND Family Medicine Addiction Medicine
DX: R16.1 Splenomegaly, not elsewhere classified (principal); E27.8 Other specified disorders of adrenal gland; K80.71 Calculus of gallbladder and bile duct without cholecystitis with obstruction
CPT/HCPCS: 74183; A9576

== ENCOUNTER 2023-04-28 13:41 | Inpatient (IN) | payer MEDICARE, MEDICAID ==
[~2023-04-28] VITALS: Ht 195.6 cm; Wt 101.0 kg
[~2023-04-28 13:41] MED LIST changes: -PROHANCE 279.3MG/ML 15ML VIAL As Ordered ONE; -PROHANCE 279.3MG/ML 5ML VIAL As Ordered ONE
[2023-04-28 14:58] LABS: BASO # 0.1 10^3/uL (0.0-0.2); BASO % 1.9 % (0.0-1.0); EOS # 0.5 10^3/uL (0.0-0.5); EOS % 8.4 % (0.0-3.0); HEMATOCRIT 42.6 % (42.0-52.0); HEMOGLOBIN 13.1 g/dl (13.5-17.5); LYMPH # 0.6 10^3/uL (1.5-5.0); LYMPH % 10.7 % (24.0-44.0); MEAN CORPUSCULAR HEMOGLOBIN 24.4 pg (27.0-33.0); MEAN CORPUSCULAR HGB CONC 30.8 g/dl (32.0-36.5); MEAN CORPUSCULAR VOLUME 79.5 fl (80.0-96.0); MONO # 0.5 10^3/uL (0.0-0.8); MONO % 8.2 % (2.0-8.0); NEUTROPHILS % 70.1 % (36.0-66.0); PLATELET COUNT, AUTOMATED 318 10^3/uL (150-450); RED BLOOD COUNT 5.36 10^6/uL (4.30-6.10); WHITE BLOOD COUNT 5.7 10^3/uL (4.0-10.0)
[2023-04-28 15:08] LABS: VENOUS BASE EXCESS -3.7 (-2.0-2.0); VENOUS HCO3 22.2 MMOL/L (23.0-27.0); VENOUS O2 SATURATION 83.8 % (60.0-80.0); VENOUS PARTIAL PRESSURE CO2 43.4 mmHg (38.0-50.0); VENOUS PARTIAL PRESSURE O2 50.7 mmHg (30.0-50.0); VENOUS PH 7.327 UNITS (7.330-7.430); VENOUS STANDARD HCO3 21.1 MMOL/L; VENOUS TOTAL CO2 23.5 MMOL/L (24.0-28.0)
[2023-04-28 15:17] LABS: LIPASE 87 U/L (12-53)
[2023-04-28 15:21] LABS: ALBUMIN 2.9 G/DL (3.2-5.2); ALKALINE PHOSPHATASE 78 U/L (46-116); ALT/SGPT < 9 U/L (7.0-40); AST/SGOT 14 U/L (<34); BILIRUBIN,DIRECT 0.1 MG/DL (<0.4); BILIRUBIN,TOTAL 0.3 MG/DL (0.3-1.2); BLOOD UREA NITROGEN 74 MG/DL (9-23); CALCIUM LEVEL 9.1 MG/DL (8.3-10.6); CARBON DIOXIDE LEVEL 23 MMOL/L (20-31); CHLORIDE LEVEL 100 MMOL/L (98-107); CK-MB VALUE MASS 1.4 NG/ML (<3.6); CPK CREATINE PHOSPHOKINASE 39 U/L (46-171); CREATININE FOR GFR 9.86 MG/DL (0.70-1.30); GLOMERULAR FILTRATION RATE 5.7 (>49); GLUCOSE, FASTING 85 MG/DL (74-106); MB/CK RELATIVE INDEX 3.58 (< OR =4); POTASSIUM SERUM 5.7 MMOL/L (3.5-5.1); SODIUM LEVEL 133 MMOL/L (136-145); TOTAL PROTEIN 5.4 G/DL (5.7-8.2)
[2023-04-28 15:23] LABS: INR 1.29; PROTHROMBIN TIME 15.7 SECONDS (12.5-14.5)
[2023-04-28 15:24] LABS: PARTIAL THROMBOPLASTIN TIME 35.7 SECONDS (24.8-34.2)
[2023-04-28 16:33] LABS: CK-MB VALUE MASS 1.3 NG/ML (<3.6)
[2023-04-28 16:34] LABS: MB/CK RELATIVE INDEX 3.09 (< OR =4)
[2023-04-28] MEDS ORDERED: MAALOX 30 ML SUSP *UDC PO PRN (18:10)
[2023-04-28] MEDS ORDERED: MOM 30ML SUSPENSION UDC PO PRN (18:10)
[2023-04-28] MEDS ORDERED: DEXTROSE 50% 50ML SYRINGE IV STA (18:11)
[2023-04-28] MEDS ORDERED: HumuLIN R (REGULAR) INSULIN (NovoLIN R) **100U/ML** PER UNIT IV STA (18:11)
[2023-04-28] MEDS ORDERED: SOD POLYSTYRENE SULFONATE SUSP 15GM 60ML UD PO ONE (18:15)
[2023-04-28] MEDS ORDERED: LANT1000 PO (19:56)
[2023-04-28] MEDS ORDERED: ATOR1TAB19 PO (19:56)
[2023-04-28] MEDS ORDERED: OXYC-517 PO (19:56)
[2023-04-28] MEDS ORDERED: CARV12.5 PO (19:58)
[2023-04-28] MEDS ORDERED: med rec comment (19:59)
[2023-04-28] MEDS ORDERED: HOME MED LIST COMPLETE! XX SCH (20:00)
[2023-04-28] MEDS ORDERED: REMDESIVIR 200 MG in NS 250 ML IV ONE (21:00)
[2023-04-28] MEDS ORDERED: NIRMATRELVIR/RITONAVIR (RENAL) CO-PACK (EUA) PO SCH (21:00)
[2023-04-28 21:10] VITALS: BP 209/89; TEMP 98.2; O2SAT 98
[2023-04-28] MEDS: APIXABAN 5 MG TAB (ELIQUIS) PO SCH (22:57)
[2023-04-29] MEDS ORDERED: lisinopriL 40MG TAB PO ONE
[2023-04-29] MEDS: oxyCODONE 5MG TAB PO PRN ×4 (00:07→21:51)
[2023-04-29] MEDS: CARVedilol 12.5 MG TAB PO SCH ×3 (00:11→21:54)
[2023-04-29 05:50] VITALS: BP 170/90; TEMP 99.1; O2SAT 96
[2023-04-29 06:19] LABS: CREATININE FOR GFR 10.08 MG/DL (0.70-1.30); GLOMERULAR FILTRATION RATE 5.6 (>49); MAGNESIUM LEVEL 2.6 MG/DL (1.8-2.4); POTASSIUM SERUM 4.8 MMOL/L (3.5-5.1)
[2023-04-29] MEDS: TORSEMIDE (DEMADEX) 50 MG PER 1/2 TAB PO SCH (09:17)
[2023-04-29] MEDS: APIXABAN 5 MG TAB (ELIQUIS) PO SCH ×2 (09:18→21:51)
[2023-04-29] MEDS ORDERED: diphenhydrAMINE 50MG/ML VIAL IV PRN (09:40)
[2023-04-29] MEDS ORDERED: HEPARIN 1,000UNITS/ML 10ML VIAL (FOR RADIOLOGY & DIALYSIS ONLY) IV PRN (11:40)
[2023-04-29] MEDS ORDERED: SODIUM CHLORIDE 0.9% 1000ML IV PRN (11:40)
[2023-04-29] MEDS ORDERED: HEPARIN 1,000UNITS/ML 10ML VIAL (FOR RADIOLOGY & DIALYSIS ONLY) XX SCH (11:40)
[2023-04-29 12:00] VITALS: BP 127/52
[2023-04-29 14:00] VITALS: BP 152/85; TEMP 97.7; O2SAT 96
[2023-04-29 21:33] VITALS: BP 119/66; TEMP 98.1; O2SAT 96
[2023-04-29] MEDS: REMDESIVIR 100 MG in NS 250 ML IV SCH (21:51)
[2023-04-29] MEDS: ACETAMINOPHEN TAB 650MG DOSE (2X325MG) PO PRN (21:54)
[2023-04-30 05:30] VITALS: BP 118/66; TEMP 98.2; O2SAT 99
[2023-04-30] MEDS: oxyCODONE 5MG TAB PO PRN ×3 (06:25→20:54)
[2023-04-30] MEDS: APIXABAN 5 MG TAB (ELIQUIS) PO SCH ×2 (08:51→20:55)
[2023-04-30] MEDS: ATORVASTATIN 20 MG TAB PO SCH (08:51)
[2023-04-30] MEDS: lisinopriL 40MG TAB PO SCH (08:51)
[2023-04-30] MEDS: CARVedilol 12.5 MG TAB PO SCH ×2 (08:52→20:54)
[2023-04-30] MEDS: TORSEMIDE (DEMADEX) 50 MG PER 1/2 TAB PO SCH (08:57)
[2023-04-30] MEDS ORDERED: ASPIRIN 81MG ENTERIC TABLET PO SCH (09:00)
[2023-04-30 14:00] VITALS: BP 123/69; TEMP 97.9; O2SAT 96
[2023-04-30] MEDS: OMEPRAZOLE 20MG CAP PO SCH (14:23)
[2023-04-30 20:00] VITALS: BP 123/67; TEMP 97.9; O2SAT 93
[2023-04-30] MEDS: REMDESIVIR 100 MG in NS 250 ML IV SCH (20:53)
[2023-05-01 06:00] VITALS: BP 142/58; TEMP 98.1; O2SAT 94
[2023-05-01] MEDS ORDERED: HEPARIN 1,000UNITS/ML 10ML VIAL (FOR RADIOLOGY & DIALYSIS ONLY) IV PRN (06:00)
[2023-05-01] MEDS ORDERED: SODIUM CHLORIDE 0.9% 1000ML IV PRN (06:00)
[2023-05-01] MEDS ORDERED: HEPARIN 1,000UNITS/ML 10ML VIAL (FOR RADIOLOGY & DIALYSIS ONLY) XX SCH (06:00)
[2023-05-01] MEDS: APIXABAN 5 MG TAB (ELIQUIS) PO SCH (06:03)
[2023-05-01] MEDS: ATORVASTATIN 20 MG TAB PO SCH (06:04)
[2023-05-01] MEDS: OMEPRAZOLE 20MG CAP PO SCH (06:04)
[2023-05-01] MEDS: oxyCODONE 5MG TAB PO PRN ×2 (06:05→12:39)
[2023-05-01] MEDS: TORSEMIDE (DEMADEX) 50 MG PER 1/2 TAB PO SCH (06:06)
[2023-05-01] MEDS: lisinopriL 40MG TAB PO SCH (06:06)
[2023-05-01 06:07] VITALS: BP 125/78
[2023-05-01] MEDS: CARVedilol 12.5 MG TAB PO SCH (06:07)
[2023-05-01 09:00] LABS: CALCIUM LEVEL 9.5 MG/DL (8.3-10.6); CREATININE FOR GFR 7.88 MG/DL (0.70-1.30); GLOMERULAR FILTRATION RATE 7.4 (>49); MAGNESIUM LEVEL 2.1 MG/DL (1.8-2.4); POTASSIUM SERUM 4.3 MMOL/L (3.5-5.1)
[2023-05-01] MEDS: ACETAMINOPHEN TAB 650MG DOSE (2X325MG) PO PRN (12:38)
[2023-05-01] MEDS ORDERED: ONDANSETRON 4MG 2ML VIAL IV PRN (13:15)
[2023-05-01] MEDS ORDERED: OMEP-173 PO (14:18)
== END 2023-05-01 15:09 | disposition home or self-care (01) | DRG 640 ==
LOC: M ED 13:41 → EDBD 13:41 → M ED INP 18:06 → M MSPAV 20:50
PROVIDERS: ADMIT Student in an Organized Health Care Education/Training Program; ATTEND Student in an Organized Health Care Education/Training Program
PROC: XW033E5 Introduction of Remdesivir Anti-infective into Peripheral Vein, Percutaneous Approach, New Technology Group 5 (ICD-10-PCS; 2023-04-28)
PROC: 5A1D70Z Performance of Urinary Filtration, Intermittent, Less than 6 Hours Per Day (ICD-10-PCS; principal; 2023-04-29)
DX: E87.6 Hypokalemia (principal); N18.6 End stage renal disease; U07.1 COVID-19; C85.90 Non-Hodgkin lymphoma, unspecified, unspecified site; I12.0 Hypertensive chronic kidney disease with stage 5 chronic kidney disease or end stage renal disease; D47.1 Chronic myeloproliferative disease; N25.81 Secondary hyperparathyroidism of renal origin; Z99.2 Dependence on renal dialysis; E78.5 Hyperlipidemia, unspecified; M10.9 Gout, unspecified; K21.9 Gastro-esophageal reflux disease without esophagitis; G89.29 Other chronic pain; Z96.651 Presence of right artificial knee joint; Z89.512 Acquired absence of left leg below knee; Z89.411 Acquired absence of right great toe; Z89.421 Acquired absence of other right toe(s); Z91.158 Patient's noncompliance with renal dialysis for other reason; R53.83 Other fatigue; D63.1 Anemia in chronic kidney disease; D50.9 Iron deficiency anemia, unspecified; Z79.01 Long term (current) use of anticoagulants; Z79.899 Other long term (current) drug therapy; Z88.8 Allergy status to other drugs, medicaments and biological substances; Z91.048 Other nonmedicinal substance allergy status; G62.9 Polyneuropathy, unspecified; N25.0 Renal osteodystrophy; D75.1 Secondary polycythemia; E11.51 Type 2 diabetes mellitus with diabetic peripheral angiopathy without gangrene; Z86.718 Personal history of other venous thrombosis and embolism; E11.22 Type 2 diabetes mellitus with diabetic chronic kidney disease

== ENCOUNTER 2023-05-24 18:15 | Observation (INO) | payer MEDICARE, MEDICAID ==
[~2023-05-24] VITALS: Ht 182.9 cm; Wt 98.1 kg
[~2023-05-24 18:15] MED LIST changes: -HYDR-3911 PO; -HYDR50TA PO; +HYDR50TA46 PO; +HYDR50TA47 PO; +LANT1000 PO; +med rec comment
[2023-05-24] MEDS ORDERED: ONDANSETRON 4MG 2ML VIAL IV ONE (20:10)
[2023-05-24 20:11] LABS: BASO # 0.1 10^3/uL (0.0-0.2); BASO % 1.1 % (0.0-1.0); EOS # 0.3 10^3/uL (0.0-0.5); EOS % 4.2 % (0.0-3.0); HEMATOCRIT 51.5 % (42.0-52.0); HEMOGLOBIN 15.6 g/dl (13.5-17.5); LYMPH # 0.6 10^3/uL (1.5-5.0); LYMPH % 8.6 % (24.0-44.0); MEAN CORPUSCULAR HEMOGLOBIN 24.5 pg (27.0-33.0); MEAN CORPUSCULAR HGB CONC 30.3 g/dl (32.0-36.5); MEAN CORPUSCULAR VOLUME 80.8 fl (80.0-96.0); MONO # 0.5 10^3/uL (0.0-0.8); MONO % 6.6 % (2.0-8.0); NEUTROPHILS # 5.6 10^3/uL (1.5-8.5); NEUTROPHILS % 79.1 % (36.0-66.0); PLATELET COUNT, AUTOMATED 345 10^3/uL (150-450); RED BLOOD COUNT 6.37 10^6/uL (4.30-6.10); WHITE BLOOD COUNT 7.1 10^3/uL (4.0-10.0)
[2023-05-24] MEDS: MORPHINE 4 MG/ML 1ML VIAL IV PRN (20:17)
[2023-05-24 20:27] LABS: INR 1.24; PROTHROMBIN TIME 15.2 SECONDS (12.5-14.5)
[2023-05-24 20:28] LABS: PARTIAL THROMBOPLASTIN TIME 32.9 SECONDS (24.8-34.2)
[2023-05-24 20:40] LABS: LIPASE 45 U/L (12-53)
[2023-05-24 20:41] LABS: CK-MB VALUE MASS < 1.0 NG/ML (<3.6)
[2023-05-24 20:43] LABS: ALBUMIN 3.7 G/DL (3.2-5.2); ALKALINE PHOSPHATASE 102 U/L (46-116); ALT/SGPT 11 U/L (7.0-40); AST/SGOT 12 U/L (<34); BILIRUBIN,DIRECT 0.2 MG/DL (<0.4); BILIRUBIN,TOTAL 0.4 MG/DL (0.3-1.2); BLOOD UREA NITROGEN 37 MG/DL (9-23); CALCIUM LEVEL 9.8 MG/DL (8.3-10.6); CARBON DIOXIDE LEVEL 27 MMOL/L (20-31); CHLORIDE LEVEL 102 MMOL/L (98-107); CREATININE FOR GFR 7.53 MG/DL (0.70-1.30); GLOMERULAR FILTRATION RATE 7.8 (>49); GLUCOSE, FASTING 104 MG/DL (74-106); POTASSIUM SERUM 4.8 MMOL/L (3.5-5.1); SODIUM LEVEL 139 MMOL/L (136-145); TOTAL PROTEIN 6.8 G/DL (5.7-8.2)
[2023-05-24 20:46] LABS: CPK CREATINE PHOSPHOKINASE 30 U/L (46-171); MB/CK RELATIVE INDEX 3.33 (< OR =4)
[2023-05-24 20:46] LABS: RSV AMPLIFICATION NEGATIVE (NEGATIVE)
[2023-05-24 22:20] LABS: CK-MB VALUE MASS < 1.0 NG/ML (<3.6)
[2023-05-24 22:21] LABS: CPK CREATINE PHOSPHOKINASE 23 U/L (46-171); MB/CK RELATIVE INDEX 4.34 (< OR =4)
[2023-05-24] MEDS ORDERED: OMEP40CA5 PO (23:46)
[2023-05-24] MEDS ORDERED: TORS100T PO (23:46)
[2023-05-24] MEDS ORDERED: MINO2.5T PO (23:46)
[2023-05-24] MEDS ORDERED: HOME MED LIST COMPLETE! XX SCH (23:50)
[2023-05-25] MEDS: MORPHINE 4 MG/ML 1ML VIAL IV PRN (00:05)
[2023-05-25] MEDS ORDERED: ONDANSETRON 4MG ORAL DISINTEGRATING TAB PO PRN (01:40)
[2023-05-25 05:08] VITALS: BP 176/98; TEMP 98.1; O2SAT 95
[2023-05-25] MEDS: NORCO, ANEXSIA 5/325MG TABLET (HYDROcodone/ACETAMINOPHEN) PO PRN ×4 (05:17→23:21)
[2023-05-25 07:09] LABS: ALBUMIN 3.3 G/DL (3.2-5.2); CALCIUM LEVEL 9.7 MG/DL (8.3-10.6); CREATININE FOR GFR 7.95 MG/DL (0.70-1.30); GLOMERULAR FILTRATION RATE 7.4 (>49); PHOSPHORUS LEVEL 6.7 MG/DL (2.4-5.1); POTASSIUM SERUM 4.6 MMOL/L (3.5-5.1)
[2023-05-25] MEDS ORDERED: PILL CUTTER 1 EACH XX PRN (11:05)
[2023-05-25] MEDS: TORSEMIDE 100 MG TAB PO SCH (11:19)
[2023-05-25] MEDS: lisinopriL 40MG TAB PO SCH (11:19)
[2023-05-25 14:00] VITALS: BP 179/98; TEMP 97.9; O2SAT 99
[2023-05-25] MEDS: LANTHANUM CARBONATE 500MG CHEW TABLET PO SCH (17:20)
[2023-05-25] MEDS: BENZONATATE 100MG CAPSULE PO SCH (20:58)
[2023-05-25] MEDS: APIXABAN 5 MG TAB (ELIQUIS) PO SCH (20:58)
[2023-05-25 21:16] VITALS: BP 178/109; TEMP 98.1; O2SAT 95
[2023-05-26 06:28] VITALS: BP 194/115; TEMP 97.5; O2SAT 96
[2023-05-26] MEDS: NORCO, ANEXSIA 5/325MG TABLET (HYDROcodone/ACETAMINOPHEN) PO PRN ×3 (06:31→21:32)
[2023-05-26] MEDS: BENZONATATE 100MG CAPSULE PO SCH ×3 (06:31→21:32)
[2023-05-26] MEDS: TORSEMIDE 100 MG TAB PO SCH (06:57)
[2023-05-26] MEDS: lisinopriL 40MG TAB PO SCH (06:57)
[2023-05-26] MEDS: APIXABAN 5 MG TAB (ELIQUIS) PO SCH ×2 (06:57→21:32)
[2023-05-26] MEDS ORDERED: HEPARIN 1,000UNITS/ML 10ML VIAL (FOR RADIOLOGY & DIALYSIS ONLY) XX SCH (07:00)
[2023-05-26] MEDS ORDERED: SODIUM CHLORIDE 0.9% 1000ML IV PRN (07:00)
[2023-05-26] MEDS ORDERED: HEPARIN 1,000UNITS/ML 10ML VIAL (FOR RADIOLOGY & DIALYSIS ONLY) IV PRN (07:00)
[2023-05-26] MEDS: OMEPRAZOLE 20MG CAP PO SCH (07:25)
[2023-05-26] MEDS: LANTHANUM CARBONATE 500MG CHEW TABLET PO SCH ×3 (07:25→17:30)
[2023-05-26 08:27] LABS: HEMATOCRIT 47.4 % (42.0-52.0); HEMOGLOBIN 14.5 g/dl (13.5-17.5); MEAN CORPUSCULAR HEMOGLOBIN 24.6 pg (27.0-33.0); MEAN CORPUSCULAR HGB CONC 30.6 g/dl (32.0-36.5); MEAN CORPUSCULAR VOLUME 80.5 fl (80.0-96.0); PLATELET COUNT, AUTOMATED 304 10^3/uL (150-450); RED BLOOD COUNT 5.89 10^6/uL (4.30-6.10); WHITE BLOOD COUNT 6.5 10^3/uL (4.0-10.0)
[2023-05-26 09:16] LABS: CALCIUM LEVEL 9.9 MG/DL (8.3-10.6); CREATININE FOR GFR 8.62 MG/DL (0.70-1.30); GLOMERULAR FILTRATION RATE 6.7 (>49); POTASSIUM SERUM 4.9 MMOL/L (3.5-5.1)
[2023-05-26 12:02] LABS: FREE T4 1.18 NG/DL (0.89-1.76); THYROID STIMULATING HORMONE 1.326 uIU/ML (0.55-4.78)
[2023-05-26 14:00] VITALS: BP 140/91; TEMP 97.9; O2SAT 97
[2023-05-26] MEDS ORDERED: OMEPRAZOLE 20MG CAP PO ONE (18:00)
[2023-05-27] MEDS: NORCO, ANEXSIA 5/325MG TABLET (HYDROcodone/ACETAMINOPHEN) PO PRN ×4 (03:33→20:54)
[2023-05-27 04:50] VITALS: BP 141/89; TEMP 98.1; O2SAT 96
[2023-05-27] MEDS: lisinopriL 40MG TAB PO SCH (06:19)
[2023-05-27] MEDS: TORSEMIDE 100 MG TAB PO SCH (06:21)
[2023-05-27] MEDS: OMEPRAZOLE 20MG CAP PO SCH (06:22)
[2023-05-27] MEDS: APIXABAN 5 MG TAB (ELIQUIS) PO SCH ×2 (06:22→20:53)
[2023-05-27] MEDS: BENZONATATE 100MG CAPSULE PO SCH ×3 (06:23→20:53)
[2023-05-27] MEDS ORDERED: HEPARIN 1,000UNITS/ML 10ML VIAL (FOR RADIOLOGY & DIALYSIS ONLY) IV PRN (07:25)
[2023-05-27] MEDS ORDERED: SODIUM CHLORIDE 0.9% 1000ML IV PRN (07:25)
[2023-05-27] MEDS ORDERED: HEPARIN 1,000UNITS/ML 10ML VIAL (FOR RADIOLOGY & DIALYSIS ONLY) XX SCH (07:25)
[2023-05-27] MEDS: LANTHANUM CARBONATE 500MG CHEW TABLET PO SCH ×3 (07:25→18:45)
[2023-05-28] MEDS: NORCO, ANEXSIA 5/325MG TABLET (HYDROcodone/ACETAMINOPHEN) PO PRN ×2 (02:59→15:23)
[2023-05-28] MEDS: BENZONATATE 100MG CAPSULE PO SCH ×2 (05:44→15:23)
[2023-05-28 06:00] VITALS: BP 148/90; TEMP 97.9; O2SAT 93
[2023-05-28] MEDS: LANTHANUM CARBONATE 500MG CHEW TABLET PO SCH ×2 (08:49→12:36)
[2023-05-28] MEDS: APIXABAN 5 MG TAB (ELIQUIS) PO SCH (08:50)
[2023-05-28] MEDS: OMEPRAZOLE 20MG CAP PO SCH (08:50)
[2023-05-28 08:51] VITALS: BP 149/88
[2023-05-28] MEDS: TORSEMIDE 100 MG TAB PO SCH (08:51)
[2023-05-28] MEDS: lisinopriL 40MG TAB PO SCH (08:51)
[2023-05-28] MEDS ORDERED: MIRALAX *UNIT DOSE* 17GM PACKET PO SCH (09:00)
[2023-05-28 14:50] VITALS: BP 144/73
[2023-05-28] MEDS ORDERED: HYDR-3715 PO ×2 (16:08→16:47)
[2023-05-28] MEDS ORDERED: MIRA3350 PO ×2 (16:08→16:47)
[2023-05-28] MEDS ORDERED: ONDA4TAB6 PO (16:08)
== END 2023-05-28 16:42 | disposition home or self-care (01) ==
LOC: M ED 18:15 → M ED INP 18:16 → ENRESERV 05-25 04:02 → M MSPAV 05-25 05:07
PROVIDERS: ADMIT Internal Medicine; ATTEND Student in an Organized Health Care Education/Training Program
DX: S22.32XA Fracture of one rib, left side, initial encounter for closed fracture (principal); W01.0XXA Fall on same level from slipping, tripping and stumbling without subsequent striking against object, initial encounter; Y92.012 Bathroom of single-family (private) house as the place of occurrence of the external cause; Y93.89 Activity, other specified; Y99.8 Other external cause status; E04.1 Nontoxic single thyroid nodule; I12.9 Hypertensive chronic kidney disease with stage 1 through stage 4 chronic kidney disease, or unspecified chronic kidney disease; Z91.148 Patient's other noncompliance with medication regimen for other reason; N18.4 Chronic kidney disease, stage 4 (severe); Z99.2 Dependence on renal dialysis; Z91.158 Patient's noncompliance with renal dialysis for other reason; Z89.512 Acquired absence of left leg below knee; Z97.14 Presence of artificial left leg (complete) (partial); Z99.89 Dependence on other enabling machines and devices; I96 Gangrene, not elsewhere classified; T34.532A Frostbite with tissue necrosis of left finger(s), initial encounter; C94.6 Myelodysplastic disease, not elsewhere classified; C85.90 Non-Hodgkin lymphoma, unspecified, unspecified site; G62.9 Polyneuropathy, unspecified; G89.29 Other chronic pain; N25.81 Secondary hyperparathyroidism of renal origin; Z86.711 Personal history of pulmonary embolism; Z86.718 Personal history of other venous thrombosis and embolism; M10.9 Gout, unspecified; K21.9 Gastro-esophageal reflux disease without esophagitis; R16.1 Splenomegaly, not elsewhere classified; D75.1 Secondary polycythemia; Z84.1 Family history of disorders of kidney and ureter; Z88.8 Allergy status to other drugs, medicaments and biological substances; Z91.048 Other nonmedicinal substance allergy status; Z79.899 Other long term (current) drug therapy; Z79.01 Long term (current) use of anticoagulants
CPT/HCPCS: 36415; 71250; 76536; 80048; 80069; 80076; 82550; 82553; 83605; 83690; 84439; 84443; 84484; 85025; 85027; 85610; 85730; 87631; 90935; 93005; 93041; 96374; 96375; 96376; 99285; G0378; J2405

== ENCOUNTER 2023-06-20 18:53 | Inpatient (IN) | payer MEDICARE, MEDICAID ==
[~2023-06-20] VITALS: Ht 195.6 cm; Wt 96.2 kg
[~2023-06-20 18:53] MED LIST changes: +HYDR-3715 PO; +OMEP40CA5 PO; +ONDA4TAB6 PO
[2023-06-20 22:39] VITALS: BP 130/95; TEMP 97.8; O2SAT 97
[2023-06-20] MEDS ORDERED: LEVOTAB10 PO (23:29)
[2023-06-20] MEDS ORDERED: ATOR1TAB19 PO (23:29)
[2023-06-20] MEDS ORDERED: HOME MED LIST COMPLETE! XX SCH (23:30)
[2023-06-20] MEDS ORDERED: MIRALAX *UNIT DOSE* 17GM PACKET PO PRN (23:50)
[2023-06-21] VITALS (8 sets, daily range): BP systolic 129–178; BP diastolic 63–98; TEMP 97.3–98.8; O2SAT 94–98
[2023-06-21] MEDS ORDERED: VANCOMYCIN HCL 1,000 MG, VIAL MATE ADAPTER 1 EACH in D5W 250 ML IV SCH (00:20)
[2023-06-21] MEDS: oxyCODONE 5MG TAB PO PRN ×3 (01:24→20:26)
[2023-06-21] MEDS ORDERED: VANCOMYCIN HCL 500 MG in D5W MINI-BAG PLUS 100 ML IV ONE (02:00)
[2023-06-21] MEDS ORDERED: lisinopriL 40MG TAB PO ONE (05:00)
[2023-06-21 06:43] LABS: ALBUMIN 2.9 G/DL (3.2-5.2); CALCIUM LEVEL 9.8 MG/DL (8.3-10.6); CREATININE FOR GFR 9.75 MG/DL (0.70-1.30); GLOMERULAR FILTRATION RATE 5.8 (>49); PHOSPHORUS LEVEL 9.6 MG/DL (2.4-5.1); POTASSIUM SERUM 4.4 MMOL/L (3.5-5.1)
[2023-06-21] MEDS: LANTHANUM CARBONATE 500MG CHEW TABLET PO SCH ×3 (09:03→17:57)
[2023-06-21] MEDS: TORSEMIDE (DEMADEX) 50 MG PER 1/2 TAB PO SCH (09:03)
[2023-06-21] MEDS: cefTRIAXone SOD 2 GM in D5W MINI-BAG PLUS 50 ML IV SCH (09:04)
[2023-06-21] MEDS: ATORVASTATIN 10 MG TAB PO SCH (09:04)
[2023-06-21] MEDS: OMEPRAZOLE 20MG CAP PO SCH (09:04)
[2023-06-21] MEDS ORDERED: VANCOMYCIN HCL 1,000 MG, VIAL MATE ADAPTER 1 EACH in D5W 250 ML IV ONE (10:00)
[2023-06-21 22:07] LABS: BASO # 0.1 10^3/uL (0.0-0.2); EOS # 0.4 10^3/uL (0.0-0.5); EOS % 5.7 % (0.0-3.0); HEMOGLOBIN 12.9 g/dl (13.5-17.5); LYMPH # 0.7 10^3/uL (1.5-5.0); LYMPH % 9.6 % (24.0-44.0); MEAN CORPUSCULAR HEMOGLOBIN 25.6 pg (27.0-33.0); MEAN CORPUSCULAR HGB CONC 31.5 g/dl (32.0-36.5); MEAN CORPUSCULAR VOLUME 81.5 fl (80.0-96.0); MONO # 0.4 10^3/uL (0.0-0.8); MONO % 4.9 % (2.0-8.0); NEUTROPHILS % 77.9 % (36.0-66.0); PLATELET COUNT, AUTOMATED 403 10^3/uL (150-450); RED BLOOD COUNT 5.03 10^6/uL (4.30-6.10); WHITE BLOOD COUNT 7.7 10^3/uL (4.0-10.0)
[2023-06-22 03:40] VITALS: BP 144/67; TEMP 97.8; O2SAT 95
[2023-06-22 04:19] LABS: BASO # 0.1 10^3/uL (0.0-0.2); BASO % 1.7 % (0.0-1.0); EOS # 0.4 10^3/uL (0.0-0.5); EOS % 6.5 % (0.0-3.0); HEMATOCRIT 40.3 % (42.0-52.0); HEMOGLOBIN 12.6 g/dl (13.5-17.5); LYMPH % 15.3 % (24.0-44.0); MEAN CORPUSCULAR HEMOGLOBIN 25.3 pg (27.0-33.0); MEAN CORPUSCULAR HGB CONC 31.3 g/dl (32.0-36.5); MEAN CORPUSCULAR VOLUME 80.9 fl (80.0-96.0); MONO # 0.4 10^3/uL (0.0-0.8); MONO % 5.9 % (2.0-8.0); NEUTROPHILS # 4.7 10^3/uL (1.5-8.5); NEUTROPHILS % 69.8 % (36.0-66.0); PLATELET COUNT, AUTOMATED 382 10^3/uL (150-450); RED BLOOD COUNT 4.98 10^6/uL (4.30-6.10); WHITE BLOOD COUNT 6.7 10^3/uL (4.0-10.0)
[2023-06-22 04:49] LABS: VANCOMYCIN RANDOM 19.5 UG/ML
[2023-06-22] MEDS: oxyCODONE 5MG TAB PO PRN ×3 (04:57→18:21)
[2023-06-22 05:01] LABS: CALCIUM LEVEL 9.8 MG/DL (8.3-10.6); CREATININE FOR GFR 10.04 MG/DL (0.70-1.30); GLOMERULAR FILTRATION RATE 5.6 (>49); POTASSIUM SERUM 4.8 MMOL/L (3.5-5.1)
[2023-06-22] MEDS ORDERED: HEPARIN 1,000UNITS/ML 10ML VIAL (FOR RADIOLOGY & DIALYSIS ONLY) XX SCH (06:55)
[2023-06-22] MEDS ORDERED: SODIUM CHLORIDE 0.9% 1000ML IV PRN (06:55)
[2023-06-22] MEDS ORDERED: HEPARIN 1,000UNITS/ML 10ML VIAL (FOR RADIOLOGY & DIALYSIS ONLY) IV PRN (06:55)
[2023-06-22] MEDS: cefTRIAXone SOD 2 GM in D5W MINI-BAG PLUS 50 ML IV SCH (08:08)
[2023-06-22] MEDS: lisinopriL 40MG TAB PO SCH (08:08)
[2023-06-22] MEDS: LANTHANUM CARBONATE 500MG CHEW TABLET PO SCH ×3 (08:08→17:18)
[2023-06-22] MEDS: TORSEMIDE (DEMADEX) 50 MG PER 1/2 TAB PO SCH (08:09)
[2023-06-22] MEDS: ATORVASTATIN 10 MG TAB PO SCH (08:09)
[2023-06-22] MEDS: OMEPRAZOLE 20MG CAP PO SCH (08:09)
[2023-06-22 08:23] VITALS: BP 157/66; TEMP 98.1; O2SAT 97
[2023-06-22] MEDS: ACETAMINOPHEN TAB 650MG DOSE (2X325MG) PO PRN (11:11)
[2023-06-22 12:37] LABS: ERYTHROCYTE SEDIMENTATION RATE 20 mm/hr (0-20)
[2023-06-22] MEDS: VANCOMYCIN HCL 1,000 MG, VIAL MATE ADAPTER 1 EACH in D5W 250 ML IV SCH (17:18)
[2023-06-22 17:23] VITALS: BP 125/58; TEMP 97.5; O2SAT 95
[2023-06-22 20:00] VITALS: BP 134/87; TEMP 97.8; O2SAT 95
[2023-06-22 23:31] VITALS: BP 154/81; TEMP 98.2; O2SAT 96
[2023-06-23] VITALS (9 sets, daily range): BP systolic 110–158; BP diastolic 56–79; TEMP 97–97.8; O2SAT 92–97
[2023-06-23] MEDS: oxyCODONE 5MG TAB PO PRN ×3 (03:44→20:40)
[2023-06-23 06:08] LABS: BASO # 0.1 10^3/uL (0.0-0.2); BASO % 1.3 % (0.0-1.0); EOS # 0.5 10^3/uL (0.0-0.5); EOS % 6.6 % (0.0-3.0); HEMATOCRIT 42.9 % (42.0-52.0); HEMOGLOBIN 13.4 g/dl (13.5-17.5); LYMPH % 13.2 % (24.0-44.0); MEAN CORPUSCULAR HEMOGLOBIN 25.1 pg (27.0-33.0); MEAN CORPUSCULAR HGB CONC 31.2 g/dl (32.0-36.5); MEAN CORPUSCULAR VOLUME 80.3 fl (80.0-96.0); MONO # 0.4 10^3/uL (0.0-0.8); MONO % 4.8 % (2.0-8.0); NEUTROPHILS # 5.6 10^3/uL (1.5-8.5); NEUTROPHILS % 73.4 % (36.0-66.0); PLATELET COUNT, AUTOMATED 400 10^3/uL (150-450); RED BLOOD COUNT 5.34 10^6/uL (4.30-6.10); WHITE BLOOD COUNT 7.6 10^3/uL (4.0-10.0)
[2023-06-23 06:30] LABS: VANCOMYCIN RANDOM 22.8 UG/ML
[2023-06-23 06:31] LABS: CALCIUM LEVEL 10.4 MG/DL (8.3-10.6); CREATININE FOR GFR 7.05 MG/DL (0.70-1.30); GLOMERULAR FILTRATION RATE 8.5 (>49); POTASSIUM SERUM 4.7 MMOL/L (3.5-5.1)
[2023-06-23] MEDS: LANTHANUM CARBONATE 500MG CHEW TABLET PO SCH ×3 (07:34→18:08)
[2023-06-23] MEDS ORDERED: LIDOCAINE 2% 100MG/5ML SDV (FOR ANES.) As Ordered ONE (08:44)
[2023-06-23] MEDS ORDERED: MIDAZOLAM INJ 2MG/2ML VIAL As Ordered ONE (08:44)
[2023-06-23] MEDS ORDERED: propofoL 200 MG/20 ML VIAL As Ordered ONE (08:44)
[2023-06-23] MEDS ORDERED: fentaNYL 100 MCG/2 ML INJECTION As Ordered ONE ×2 (08:44→09:33)
[2023-06-23] MEDS ORDERED: BACITRACIN OINTMENT 30GM TUBE As Ordered ONE (09:02)
[2023-06-23] MEDS ORDERED: METOCLOPRAMIDE INJ 10MG/2ML VIAL As Ordered ONE (09:31)
[2023-06-23] MEDS ORDERED: ONDANSETRON 4MG 2ML VIAL As Ordered ONE (09:31)
[2023-06-23] MEDS ORDERED: ACETAMINOPHEN 1000MG 100ML IV BAG As Ordered ONE (09:33)
[2023-06-23] MEDS ORDERED: KETOROLAC 60MG 2ML VIAL As Ordered ONE (09:33)
[2023-06-23] MEDS ORDERED: diphenhydrAMINE 50MG/ML VIAL IV PRN (10:30)
[2023-06-23] MEDS ORDERED: ONDANSETRON 4MG 2ML VIAL IV PRN (10:30)
[2023-06-23] MEDS: DOCUSATE SODIUM 100MG CAPSULE PO SCH ×2 (11:16→20:41)
[2023-06-23] MEDS: cefTRIAXone SOD 2 GM in D5W MINI-BAG PLUS 50 ML IV SCH (11:29)
[2023-06-23] MEDS: TORSEMIDE (DEMADEX) 50 MG PER 1/2 TAB PO SCH (11:29)
[2023-06-23] MEDS: ATORVASTATIN 10 MG TAB PO SCH (11:31)
[2023-06-23] MEDS: ACETAMINOPHEN TAB 650MG DOSE (2X325MG) PO PRN (11:31)
[2023-06-23] MEDS: lisinopriL 40MG TAB PO SCH (11:32)
[2023-06-23] MEDS: OMEPRAZOLE 20MG CAP PO SCH (11:32)
[2023-06-24 00:13] VITALS: BP 126/57; TEMP 98; O2SAT 97
[2023-06-24] MEDS: oxyCODONE 5MG TAB PO PRN ×3 (02:20→15:54)
[2023-06-24 04:10] VITALS: BP 132/64; TEMP 96.7; O2SAT 98
[2023-06-24] MEDS ORDERED: HEPARIN 1,000UNITS/ML 10ML VIAL (FOR RADIOLOGY & DIALYSIS ONLY) XX SCH (06:45)
[2023-06-24] MEDS ORDERED: SODIUM CHLORIDE 0.9% 1000ML IV PRN (06:45)
[2023-06-24] MEDS ORDERED: HEPARIN 1,000UNITS/ML 10ML VIAL (FOR RADIOLOGY & DIALYSIS ONLY) IV PRN (06:45)
[2023-06-24] MEDS: LANTHANUM CARBONATE 500MG CHEW TABLET PO SCH ×3 (06:57→17:17)
[2023-06-24 07:47] VITALS: BP 150/78; TEMP 97.5; O2SAT 96
[2023-06-24 08:33] LABS: BASO # 0.1 10^3/uL (0.0-0.2); BASO % 1.4 % (0.0-1.0); EOS # 0.6 10^3/uL (0.0-0.5); EOS % 6.4 % (0.0-3.0); HEMATOCRIT 43.5 % (42.0-52.0); HEMOGLOBIN 13.4 g/dl (13.5-17.5); LYMPH # 1.2 10^3/uL (1.5-5.0); LYMPH % 14.3 % (24.0-44.0); MEAN CORPUSCULAR HEMOGLOBIN 25.3 pg (27.0-33.0); MEAN CORPUSCULAR HGB CONC 30.8 g/dl (32.0-36.5); MEAN CORPUSCULAR VOLUME 82.1 fl (80.0-96.0); MONO # 0.4 10^3/uL (0.0-0.8); MONO % 4.2 % (2.0-8.0); NEUTROPHILS # 6.3 10^3/uL (1.5-8.5); NEUTROPHILS % 73.1 % (36.0-66.0); PLATELET COUNT, AUTOMATED 418 10^3/uL (150-450); WHITE BLOOD COUNT 8.6 10^3/uL (4.0-10.0)
[2023-06-24 08:58] LABS: VANCOMYCIN RANDOM 19.9 UG/ML
[2023-06-24] MEDS: cefTRIAXone SOD 2 GM in D5W MINI-BAG PLUS 50 ML IV SCH (09:00)
[2023-06-24 09:15] LABS: CALCIUM LEVEL 10.6 MG/DL (8.3-10.6); CREATININE FOR GFR 8.78 MG/DL (0.70-1.30); GLOMERULAR FILTRATION RATE 6.6 (>49)
[2023-06-24] MEDS: ATORVASTATIN 10 MG TAB PO SCH (09:48)
[2023-06-24] MEDS: lisinopriL 40MG TAB PO SCH (09:48)
[2023-06-24] MEDS: OMEPRAZOLE 20MG CAP PO SCH (09:49)
[2023-06-24] MEDS: TORSEMIDE (DEMADEX) 50 MG PER 1/2 TAB PO SCH (09:49)
[2023-06-24] MEDS: DOCUSATE SODIUM 100MG CAPSULE PO SCH ×2 (09:49→20:29)
[2023-06-24] MEDS: ACETAMINOPHEN TAB 650MG DOSE (2X325MG) PO PRN (15:13)
[2023-06-24 16:00] VITALS: BP 102/76; TEMP 97.3; O2SAT 98
[2023-06-24] MEDS: VANCOMYCIN HCL 1,000 MG, VIAL MATE ADAPTER 1 EACH in D5W 250 ML IV SCH (16:21)
[2023-06-24] MEDS ORDERED: oxyCODONE 5MG TAB PO PRN ×2 (20:45)
[2023-06-25 06:00] VITALS: BP 130/71; TEMP 97.9; O2SAT 97
[2023-06-25] MEDS: ATORVASTATIN 10 MG TAB PO SCH (07:24)
[2023-06-25] MEDS: DOCUSATE SODIUM 100MG CAPSULE PO SCH (07:24)
[2023-06-25] MEDS: TORSEMIDE (DEMADEX) 50 MG PER 1/2 TAB PO SCH (07:24)
[2023-06-25] MEDS: LANTHANUM CARBONATE 500MG CHEW TABLET PO SCH (07:24)
[2023-06-25 07:25] VITALS: BP 130/71
[2023-06-25] MEDS: OMEPRAZOLE 20MG CAP PO SCH (07:25)
[2023-06-25] MEDS: lisinopriL 40MG TAB PO SCH (07:25)
[2023-06-25] MEDS ORDERED: CEPHALEXIN 500 MG CAP PO SCH (09:00)
[2023-06-25] MEDS ORDERED: CEPH500C PO (10:47)
[2023-06-25] MEDS ORDERED: OXYC-517 PO (11:24)
== END 2023-06-25 11:54 | disposition home or self-care (01) | DRG 988 ==
LOC: ENRESERV 19:45 → M PCU 22:35 → M MSPAV 06-24 15:59
PROVIDERS: ADMIT Internal Medicine; ATTEND Internal Medicine Nephrology
PROC: 0X6T0Z2 Detachment at Left Ring Finger, Mid, Open Approach (ICD-10-PCS; principal; 2023-06-23 09:45)
DX: E11.69 Type 2 diabetes mellitus with other specified complication (principal); I96 Gangrene, not elsewhere classified; I12.0 Hypertensive chronic kidney disease with stage 5 chronic kidney disease or end stage renal disease; M86.142 Other acute osteomyelitis, left hand; E11.52 Type 2 diabetes mellitus with diabetic peripheral angiopathy with gangrene; L03.012 Cellulitis of left finger; N18.6 End stage renal disease; K21.9 Gastro-esophageal reflux disease without esophagitis; E78.5 Hyperlipidemia, unspecified; E83.39 Other disorders of phosphorus metabolism; N25.81 Secondary hyperparathyroidism of renal origin; M10.9 Gout, unspecified; E11.42 Type 2 diabetes mellitus with diabetic polyneuropathy; E11.22 Type 2 diabetes mellitus with diabetic chronic kidney disease; E11.21 Type 2 diabetes mellitus with diabetic nephropathy; G47.33 Obstructive sleep apnea (adult) (pediatric); M47.816 Spondylosis without myelopathy or radiculopathy, lumbar region; M48.061 Spinal stenosis, lumbar region without neurogenic claudication; F32.A Depression, unspecified; Z96.651 Presence of right artificial knee joint; Z89.512 Acquired absence of left leg below knee; Z92.3 Personal history of irradiation; Z99.2 Dependence on renal dialysis; Z86.718 Personal history of other venous thrombosis and embolism; Z86.711 Personal history of pulmonary embolism; Z79.01 Long term (current) use of anticoagulants; Z79.899 Other long term (current) drug therapy; Z88.3 Allergy status to other anti-infective agents; Z91.048 Other nonmedicinal substance allergy status

== ENCOUNTER → 2023-07-06 | Outpatient (CLI) | payer MEDICARE, MEDICAID ==
[~2023-07-06] MED LIST changes: -HYDR-3910 PO; -HYDR25TA PO; +HYDR25TA87 PO; +HYDR25TA88 PO
== END ==
LOC: M SOG 08:04
PROVIDERS: ATTEND Physician Assistant
DX: T87.42 Infection of amputation stump, left upper extremity (principal); Z53.9 Procedure and treatment not carried out, unspecified reason

== ENCOUNTER → 2023-08-11 | Outpatient (CLI) | payer MEDICARE, MEDICAID ==
[~2023-08-11] MED LIST changes: +LIDOCAINE 1% MDV 20ML VIAL As Ordered ONE; -SENN1TAB41 PO; +SENN1TAB85 PO
[2023-08-11 12:55] VITALS: TEMP 99
[2023-08-11 13:55] VITALS: BP 195/99; O2SAT 97
== END ==
LOC: M IRPRO 12:44
PROVIDERS: ATTEND Otolaryngology
DX: E04.1 Nontoxic single thyroid nodule (principal)

== ENCOUNTER 2023-08-24 09:11 | Emergency (ER) | payer MEDICARE, MEDICAID ==
[~2023-08-24] VITALS: Ht 195.6 cm; Wt 101.4 kg
[~2023-08-24 09:11] MED LIST changes: -LIDOCAINE 1% MDV 20ML VIAL As Ordered ONE
[2023-08-24] MEDS ORDERED: AMLO1TAB25 (09:23)
[2023-08-24] MEDS ORDERED: CARV12.5 (09:23)
[2023-08-24 12:00] VITALS: BP 170/77; TEMP 97.6; O2SAT 99
[2023-08-24] MEDS: ACETAMINOPHEN 500 MG TAB PO ONE (13:20)
== END 2023-08-24 13:58 | disposition home or self-care (01) ==
LOC: M ED 10:48
DX: S70.01XA Contusion of right hip, initial encounter (principal); W01.0XXA Fall on same level from slipping, tripping and stumbling without subsequent striking against object, initial encounter; I10 Essential (primary) hypertension; N18.9 Chronic kidney disease, unspecified; E78.5 Hyperlipidemia, unspecified; Y92.009 Unspecified place in unspecified non-institutional (private) residence as the place of occurrence of the external cause; Y93.89 Activity, other specified; Y99.9 Unspecified external cause status; Z86.718 Personal history of other venous thrombosis and embolism; Z79.01 Long term (current) use of anticoagulants; Z91.048 Other nonmedicinal substance allergy status; Z79.811 Long term (current) use of aromatase inhibitors; Z79.83 Long term (current) use of bisphosphonates; Z79.02 Long term (current) use of antithrombotics/antiplatelets; Z79.899 Other long term (current) drug therapy

== ENCOUNTER 2023-09-16 08:03 | Emergency (ER) | payer MEDICARE, MEDICAID ==
[~2023-09-16] VITALS: Ht 195.6 cm; Wt 100.0 kg
[2023-09-16 08:17] VITALS: TEMP 98.3
[2023-09-16] MEDS: MORPHINE 4 MG/ML 1ML VIAL IV ONE (08:50)
[2023-09-16 08:57] LABS: BASO # 0.2 10^3/uL (0.0-0.2); BASO % 1.3 % (0.0-1.0); EOS # 0.7 10^3/uL (0.0-0.5); HEMATOCRIT 35.1 % (42.0-52.0); HEMOGLOBIN 10.9 g/dl (13.5-17.5); LYMPH # 0.9 10^3/uL (1.5-5.0); LYMPH % 7.8 % (24.0-44.0); MEAN CORPUSCULAR HEMOGLOBIN 24.5 pg (27.0-33.0); MEAN CORPUSCULAR HGB CONC 31.1 g/dl (32.0-36.5); MEAN CORPUSCULAR VOLUME 78.9 fl (80.0-96.0); MONO # 0.6 10^3/uL (0.0-0.8); MONO % 4.8 % (2.0-8.0); NEUTROPHILS # 9.3 10^3/uL (1.5-8.5); NEUTROPHILS % 79.1 % (36.0-66.0); PLATELET COUNT, AUTOMATED 560 10^3/uL (150-450); RED BLOOD COUNT 4.45 10^6/uL (4.30-6.10); WHITE BLOOD COUNT 11.7 10^3/uL (4.0-10.0)
[2023-09-16 09:20] LABS: LIPASE 57 U/L (12-53)
[2023-09-16 09:22] LABS: ALBUMIN 3.2 G/DL (3.2-5.2); ALKALINE PHOSPHATASE 102 U/L (46-116); ALT/SGPT 10 U/L (7.0-40); AST/SGOT < 8 U/L (<34); BILIRUBIN,DIRECT 0.1 MG/DL (<0.4); BILIRUBIN,TOTAL 0.3 MG/DL (0.3-1.2); BLOOD UREA NITROGEN 46 MG/DL (9-23); CARBON DIOXIDE LEVEL 26 MMOL/L (20-31); CHLORIDE LEVEL 101 MMOL/L (98-107); CREATININE FOR GFR 7.04 MG/DL (0.70-1.30); GLOMERULAR FILTRATION RATE 8.5 (>49); GLUCOSE, FASTING 136 MG/DL (74-106); POTASSIUM SERUM 5.1 MMOL/L (3.5-5.1); SODIUM LEVEL 135 MMOL/L (136-145); TOTAL PROTEIN 5.6 G/DL (5.7-8.2)
[2023-09-16 09:31] LABS: INR 1.22; PROTHROMBIN TIME 15.1 SECONDS (12.5-14.5)
[2023-09-16] MEDS ORDERED: ISOVUE-370 76% 100ML VIAL As Ordered ONE (10:31)
[2023-09-16] MEDS ORDERED: OXYC-517 PO ×2 (10:56→15:16)
[2023-09-16] MEDS ORDERED: HYDR2.5C TOP (10:56)
[2023-09-16] MEDS ORDERED: HOME MED LIST COMPLETE! XX SCH (11:00)
[2023-09-16] MEDS: oxyCODONE 5MG TAB PO ONE (13:12)
[2023-09-16 14:46] VITALS: BP 169/83
[2023-09-16 14:49] VITALS: O2SAT 98
== END 2023-09-16 15:56 | disposition home or self-care (01) ==
LOC: M ED 08:03 → EDBD 08:03 → M ED 15:56
DX: R10.9 Unspecified abdominal pain (principal); M54.50 Low back pain, unspecified; R16.1 Splenomegaly, not elsewhere classified; N50.3 Cyst of epididymis; E11.9 Type 2 diabetes mellitus without complications; I12.0 Hypertensive chronic kidney disease with stage 5 chronic kidney disease or end stage renal disease; Z99.2 Dependence on renal dialysis; G47.33 Obstructive sleep apnea (adult) (pediatric); E21.3 Hyperparathyroidism, unspecified; D45 Polycythemia vera; Z79.01 Long term (current) use of anticoagulants; Z79.899 Other long term (current) drug therapy; Z88.3 Allergy status to other anti-infective agents; Z91.89 Other specified personal risk factors, not elsewhere classified
CPT/HCPCS: 74177; 76870; 80048; 80076; 81001; 83605; 83690; 85025; 85610; 93005; 93041; 93976; 96374; 99285; Q9967

== ENCOUNTER 2023-12-16 16:16 | Inpatient (IN) | payer OTHER, MEDICARE, MEDICAID ==
[~2023-12-16] VITALS: Ht 195.6 cm; Wt 105.1 kg
[~2023-12-16 16:16] MED LIST changes: +ESOM1CAP20 PO; -ESOM1CAP5 PO; +HYDR2.5C TOP; +ONDA-282 PO; -ONDA4TAB6 PO
[2023-12-16] MEDS ORDERED: ISOVUE-370 76% 100ML VIAL As Ordered ONE (17:23)
[2023-12-16 17:48] LABS: BASO # 0.1 10^3/uL (0.0-0.2); BASO % 1.2 % (0.0-1.0); EOS # 0.6 10^3/uL (0.0-0.5); EOS % 5.2 % (0.0-3.0); HEMATOCRIT 32.3 % (42.0-52.0); HEMOGLOBIN 10.1 g/dl (13.5-17.5); LYMPH # 0.7 10^3/uL (1.5-5.0); LYMPH % 6.1 % (24.0-44.0); MEAN CORPUSCULAR HEMOGLOBIN 23.5 pg (27.0-33.0); MEAN CORPUSCULAR HGB CONC 31.3 g/dl (32.0-36.5); MEAN CORPUSCULAR VOLUME 75.1 fl (80.0-96.0); MONO # 0.6 10^3/uL (0.0-0.8); MONO % 5.6 % (2.0-8.0); PLATELET COUNT, AUTOMATED 394 10^3/uL (150-450); WHITE BLOOD COUNT 11.1 10^3/uL (4.0-10.0)
[2023-12-16] MEDS: TETRACAINE 0.5% OPHTH SOLN 4ML OU ONE (18:02)
[2023-12-16 18:06] LABS: INR 1.51; PROTHROMBIN TIME 17.7 SECONDS (12.5-14.5)
[2023-12-16 18:07] LABS: ETHYL ALCOHOL (ETHANOL) < 0.003 % (0.000-0.010); LIPASE 26 U/L (12-53)
[2023-12-16 18:08] LABS: AMYLASE 109 U/L (30-118)
[2023-12-16 18:09] LABS: CPK CREATINE PHOSPHOKINASE 97 U/L (46-171)
[2023-12-16 18:12] LABS: ALBUMIN 3.6 G/DL (3.2-5.2); ALKALINE PHOSPHATASE 73 U/L (46-116); ALT/SGPT < 9 U/L (7.0-40); AST/SGOT < 8 U/L (<34); BILIRUBIN,DIRECT 0.2 MG/DL (<0.4); BILIRUBIN,TOTAL 0.5 MG/DL (0.3-1.2); BLOOD UREA NITROGEN 69 MG/DL (9-23); CALCIUM LEVEL 10.7 MG/DL (8.3-10.6); CARBON DIOXIDE LEVEL 22 MMOL/L (20-31); CHLORIDE LEVEL 98 MMOL/L (98-107); CK-MB VALUE MASS 3.2 NG/ML (<3.6); CREATININE FOR GFR 9.38 MG/DL (0.70-1.30); GLOMERULAR FILTRATION RATE 6.1 (>49); GLUCOSE, FASTING 92 MG/DL (74-106); MB/CK RELATIVE INDEX 3.29 (< OR =4); POTASSIUM SERUM 5.9 MMOL/L (3.5-5.1); SODIUM LEVEL 132 MMOL/L (136-145)
[2023-12-16 18:53] LABS: CK-MB VALUE MASS 3.3 NG/ML (<3.6)
[2023-12-16 18:54] LABS: MB/CK RELATIVE INDEX 3.7 (< OR =4)
[2023-12-16] MEDS: ALBUTEROL SULFATE 2.5MG/0.5ML INH NEB SOLN INH ONE (19:02)
[2023-12-16] MEDS: HumuLIN R (REGULAR) INSULIN (NovoLIN R) **100U/ML** PER UNIT IV ONE (19:16)
[2023-12-16] MEDS: DEXTROSE 50% 50ML SYRINGE IV ONE (19:16)
[2023-12-16] MEDS: CALCIUM GLUCONATE 1,000MG/10ML VIAL (100MG/ML) IV ONE (19:32)
[2023-12-16] MEDS: SODIUM BICARBONATE 8.4% INJ 50ML SYRINGE IV ONE (19:32)
[2023-12-16] MEDS ORDERED: MOM 30ML SUSPENSION UDC PO PRN (19:45)
[2023-12-16] MEDS ORDERED: ACETAMINOPHEN TAB 650MG DOSE (2X325MG) PO PRN (19:45)
[2023-12-16] MEDS: PATIROMER SORBITEX CALCIUM 8.4 GM POWDER PACKET (VELTASSA) PO ONE (20:21)
[2023-12-16] MEDS: MORPHINE 2 MG/ML 1ML VIAL IV ONE (20:22)
[2023-12-16 21:05] LABS: HEMATOCRIT 31.5 % (42.0-52.0); HEMOGLOBIN 9.9 g/dl (13.5-17.5); MEAN CORPUSCULAR HEMOGLOBIN 23.7 pg (27.0-33.0); MEAN CORPUSCULAR HGB CONC 31.4 g/dl (32.0-36.5); MEAN CORPUSCULAR VOLUME 75.4 fl (80.0-96.0); PLATELET COUNT, AUTOMATED 376 10^3/uL (150-450); RED BLOOD COUNT 4.18 10^6/uL (4.30-6.10)
[2023-12-16 21:37] LABS: CALCIUM LEVEL 10.4 MG/DL (8.3-10.6); CREATININE FOR GFR 9.68 MG/DL (0.70-1.30); GLOMERULAR FILTRATION RATE 5.9 (>49); POTASSIUM SERUM 5.6 MMOL/L (3.5-5.1)
[2023-12-17] MEDS ORDERED: MORPHINE 2 MG/ML 1ML VIAL As Ordered ONE (02:04)
[2023-12-17 04:55] VITALS: BP 122/68; TEMP 97.7; O2SAT 96
[2023-12-17] MEDS: oxyCODONE 5MG TAB PO ONE (05:20)
[2023-12-17 06:52] LABS: HEMATOCRIT 33.6 % (42.0-52.0); HEMOGLOBIN 10.3 g/dl (13.5-17.5); MEAN CORPUSCULAR HEMOGLOBIN 23.1 pg (27.0-33.0); MEAN CORPUSCULAR HGB CONC 30.7 g/dl (32.0-36.5); MEAN CORPUSCULAR VOLUME 75.3 fl (80.0-96.0); PLATELET COUNT, AUTOMATED 351 10^3/uL (150-450); RED BLOOD COUNT 4.46 10^6/uL (4.30-6.10)
[2023-12-17] MEDS ORDERED: PERCOCET 5MG/325MG TAB PO PRN (08:25)
[2023-12-17 08:36] LABS: ALBUMIN 3.4 G/DL (3.2-5.2); ALKALINE PHOSPHATASE 72 U/L (46-116); ALT/SGPT 10 U/L (7.0-40); AST/SGOT < 8 U/L (<34); BILIRUBIN,TOTAL 0.4 MG/DL (0.3-1.2); BLOOD UREA NITROGEN 73 MG/DL (9-23); CALCIUM LEVEL 10.8 MG/DL (8.3-10.6); CARBON DIOXIDE LEVEL 23 MMOL/L (20-31); CHLORIDE LEVEL 101 MMOL/L (98-107); CREATININE FOR GFR 10.17 MG/DL (0.70-1.30); GLOMERULAR FILTRATION RATE 5.5 (>49); GLUCOSE, FASTING 72 MG/DL (74-106); MAGNESIUM LEVEL 2.2 MG/DL (1.8-2.4); POTASSIUM SERUM 5.6 MMOL/L (3.5-5.1); SODIUM LEVEL 135 MMOL/L (136-145); TOTAL PROTEIN 5.8 G/DL (5.7-8.2)
[2023-12-17] MEDS ORDERED: ENOXAPARIN 40MG/0.4ML SYRINGE (J1650 PER 10MG) SC SCH (09:00)
[2023-12-17] MEDS: LIDOCAINE 5% (LIDODERM) PATCH TD SCH (09:15)
[2023-12-17] MEDS: APIXABAN 5 MG TAB (ELIQUIS) PO SCH (09:15)
[2023-12-17] MEDS: PERCOCET 5MG/325MG TAB PO PRN (09:16)
[2023-12-17] MEDS ORDERED: GLUCOSE 4 GM CHEW PO PRN (10:10)
[2023-12-17] MEDS ORDERED: DEXTROSE 50% 50ML SYRINGE IV PRN (10:10)
[2023-12-17] MEDS ORDERED: GLUCAGON INJ 1MG VIAL SC PRN (10:10)
[2023-12-17 10:35] VITALS: BP 161/98
[2023-12-17] MEDS ORDERED: HEPARIN 1,000UNITS/ML 10ML VIAL (FOR RADIOLOGY & DIALYSIS ONLY) IV PRN (11:45)
[2023-12-17] MEDS ORDERED: SODIUM CHLORIDE 0.9% 1000ML IV PRN (11:45)
[2023-12-17] MEDS ORDERED: HEPARIN 1,000UNITS/ML 10ML VIAL (FOR RADIOLOGY & DIALYSIS ONLY) XX SCH (11:45)
[2023-12-17] MEDS ORDERED: LIDOCAINE 1% SDV 5ML VIAL SC PRN (11:45)
[2023-12-17 12:00] VITALS: BP 155/66; TEMP 97.7; O2SAT 97
[2023-12-17] MEDS ORDERED: DIPH-435 PO (14:26)
[2023-12-17] MEDS ORDERED: SEVE800T3 PO (14:26)
[2023-12-17] MEDS ORDERED: AMLO1TAB24 PO (14:26)
[2023-12-17] MEDS ORDERED: ACET-683 PO (14:26)
[2023-12-17] MEDS ORDERED: HOME MED LIST COMPLETE! XX SCH (14:50)
[2023-12-17] MEDS: TORSEMIDE 100 MG TAB PO SCH (15:16)
[2023-12-17] MEDS: ATORVASTATIN 10 MG TAB PO SCH (19:39)
[2023-12-17 19:42] VITALS: BP 156/65; TEMP 97.9; O2SAT 97
[2023-12-17] MEDS: HYDROMORPHONE HCL 0.5 MG/ 0.5 ML SYRINGE IV ONE (22:05)
[2023-12-18] VITALS: BP 112/73; TEMP 97.7; O2SAT 93
[2023-12-18 04:00] VITALS: BP 158/68; TEMP 97.5; O2SAT 95
[2023-12-18] MEDS: HYDROMORPHONE HCL 0.5 MG/ 0.5 ML SYRINGE IV ONE ×2 (05:26→08:03)
[2023-12-18 06:14] LABS: BASO # 0.1 10^3/uL (0.0-0.2); BASO % 1.4 % (0.0-1.0); EOS # 0.8 10^3/uL (0.0-0.5); EOS % 8.7 % (0.0-3.0); HEMATOCRIT 33.1 % (42.0-52.0); HEMOGLOBIN 10.2 g/dl (13.5-17.5); MEAN CORPUSCULAR HEMOGLOBIN 23.2 pg (27.0-33.0); MEAN CORPUSCULAR HGB CONC 30.8 g/dl (32.0-36.5); MEAN CORPUSCULAR VOLUME 75.4 fl (80.0-96.0); MONO # 0.4 10^3/uL (0.0-0.8); MONO % 4.5 % (2.0-8.0); NEUTROPHILS # 6.7 10^3/uL (1.5-8.5); NEUTROPHILS % 73.6 % (36.0-66.0); PLATELET COUNT, AUTOMATED 344 10^3/uL (150-450); RED BLOOD COUNT 4.39 10^6/uL (4.30-6.10); WHITE BLOOD COUNT 9.1 10^3/uL (4.0-10.0)
[2023-12-18 06:40] LABS: CALCIUM LEVEL 10.5 MG/DL (8.3-10.6); CREATININE FOR GFR 11.15 MG/DL (0.70-1.30); MAGNESIUM LEVEL 2.5 MG/DL (1.8-2.4); POTASSIUM SERUM 5.6 MMOL/L (3.5-5.1)
[2023-12-18 08:00] VITALS: BP 148/72; TEMP 97.8; O2SAT 96
[2023-12-18] MEDS ORDERED: ARTIFICIAL TEARS DROPS 15ML BTL (VISINE DRY RELIEF) OU PRN (08:00)
[2023-12-18] MEDS ORDERED: SODIUM CHLORIDE 0.9% 1000ML IV PRN (10:55)
[2023-12-18] MEDS ORDERED: HEPARIN 1,000UNITS/ML 10ML VIAL (FOR RADIOLOGY & DIALYSIS ONLY) XX SCH (10:55)
[2023-12-18] MEDS ORDERED: LIDOCAINE 1% SDV 5ML VIAL SC PRN (10:55)
[2023-12-18] MEDS: IRRIGATION OPHTH SOLN (EYE WASH) 120ML OS ONE (11:57)
[2023-12-18] MEDS: (RENVELA) SEVELAMER **CARBONate** 800 MG TAB PO SCH (11:58)
[2023-12-18 12:00] VITALS: BP 160/79; TEMP 97.3; O2SAT 98
[2023-12-18] MEDS: HEPARIN 1,000UNITS/ML 10ML VIAL (FOR RADIOLOGY & DIALYSIS ONLY) IV PRN (13:51)
[2023-12-18 20:00] VITALS: BP_SYST 142; BP_DIAS 44; BP_DIAS 78; TEMP 97.7; TEMP 97.9; O2SAT 93; O2SAT 97
[2023-12-18] MEDS: diphenhydrAMINE 50MG/ML VIAL IV ONE (20:43)
[2023-12-19] VITALS (10 sets, daily range): BP systolic 103–153; BP diastolic 41–90; TEMP 97.2–97.9; O2SAT 93–97
[2023-12-19 06:37] LABS: BASO # 0.1 10^3/uL (0.0-0.2); BASO % 1.3 % (0.0-1.0); EOS # 0.8 10^3/uL (0.0-0.5); EOS % 8.6 % (0.0-3.0); HEMATOCRIT 36.5 % (42.0-52.0); HEMOGLOBIN 11.2 g/dl (13.5-17.5); LYMPH # 0.8 10^3/uL (1.5-5.0); LYMPH % 8.6 % (24.0-44.0); MEAN CORPUSCULAR HEMOGLOBIN 23.3 pg (27.0-33.0); MEAN CORPUSCULAR HGB CONC 30.7 g/dl (32.0-36.5); MEAN CORPUSCULAR VOLUME 75.9 fl (80.0-96.0); MONO # 0.4 10^3/uL (0.0-0.8); MONO % 4.9 % (2.0-8.0); NEUTROPHILS # 6.8 10^3/uL (1.5-8.5); NEUTROPHILS % 75.9 % (36.0-66.0); PLATELET COUNT, AUTOMATED 390 10^3/uL (150-450); RED BLOOD COUNT 4.81 10^6/uL (4.30-6.10)
[2023-12-19 07:00] LABS: CALCIUM LEVEL 10.3 MG/DL (8.3-10.6); CREATININE FOR GFR 7.12 MG/DL (0.70-1.30); GLOMERULAR FILTRATION RATE 8.3 (>49); MAGNESIUM LEVEL 2.2 MG/DL (1.8-2.4); POTASSIUM SERUM 5.3 MMOL/L (3.5-5.1)
[2023-12-19] MEDS ORDERED: HEPARIN 1,000UNITS/ML 10ML VIAL (FOR RADIOLOGY & DIALYSIS ONLY) IV PRN (07:10)
[2023-12-19] MEDS ORDERED: SODIUM CHLORIDE 0.9% 1000ML IV PRN (07:10)
[2023-12-19] MEDS: HEPARIN 1,000UNITS/ML 10ML VIAL (FOR RADIOLOGY & DIALYSIS ONLY) XX SCH (09:08)
[2023-12-19 14:57] LABS: AMPHETAMINES LEVEL URINE NEGATIVE (NEGATIVE); BARBITURATES URINE NEGATIVE (NEGATIVE); BENZODIAZEPINES URINE NEGATIVE (NEGATIVE); CANNABINOIDS URINE NEGATIVE (NEGATIVE); COCAINE METABOLITE URINE NEGATIVE (NEGATIVE); METHADONE URINE NEGATIVE (NEGATIVE); OPIATES URINE NEGATIVE (NEGATIVE); PHENCYCLIDINE URINE NEGATIVE (NEGATIVE)
[2023-12-19 23:04] LABS: ALBUMIN 3.7 G/DL (3.2-5.2); ALKALINE PHOSPHATASE 93 U/L (46-116); ALT/SGPT < 9 U/L (7.0-40); AST/SGOT < 8 U/L (<34); BILIRUBIN,TOTAL 0.4 MG/DL (0.3-1.2); BLOOD UREA NITROGEN 30 MG/DL (9-23); CALCIUM LEVEL 10.7 MG/DL (8.3-10.6); CARBON DIOXIDE LEVEL 26 MMOL/L (20-31); CHLORIDE LEVEL 102 MMOL/L (98-107); CREATININE FOR GFR 5.67 MG/DL (0.70-1.30); GLOMERULAR FILTRATION RATE 10.8 (>49); GLUCOSE, FASTING 118 MG/DL (74-106); MAGNESIUM LEVEL 2.2 MG/DL (1.8-2.4); POTASSIUM SERUM 4.6 MMOL/L (3.5-5.1); SODIUM LEVEL 137 MMOL/L (136-145); TOTAL PROTEIN 6.5 G/DL (5.7-8.2)
[2023-12-20] VITALS: BP 133/79; TEMP 97.7; O2SAT 94
[2023-12-20 04:16] VITALS: BP 145/58; TEMP 97.9; O2SAT 96
[2023-12-20 06:10] LABS: BASO # 0.1 10^3/uL (0.0-0.2); BASO % 1.4 % (0.0-1.0); EOS # 0.7 10^3/uL (0.0-0.5); EOS % 7.2 % (0.0-3.0); HEMATOCRIT 37.3 % (42.0-52.0); HEMOGLOBIN 11.3 g/dl (13.5-17.5); LYMPH # 1.1 10^3/uL (1.5-5.0); LYMPH % 11.7 % (24.0-44.0); MEAN CORPUSCULAR HEMOGLOBIN 23.3 pg (27.0-33.0); MEAN CORPUSCULAR HGB CONC 30.3 g/dl (32.0-36.5); MEAN CORPUSCULAR VOLUME 76.7 fl (80.0-96.0); MONO # 0.5 10^3/uL (0.0-0.8); MONO % 5.3 % (2.0-8.0); NEUTROPHILS # 6.7 10^3/uL (1.5-8.5); NEUTROPHILS % 73.7 % (36.0-66.0); PLATELET COUNT, AUTOMATED 388 10^3/uL (150-450); RED BLOOD COUNT 4.86 10^6/uL (4.30-6.10); WHITE BLOOD COUNT 9.1 10^3/uL (4.0-10.0)
[2023-12-20 06:31] LABS: CALCIUM LEVEL 10.4 MG/DL (8.3-10.6); CREATININE FOR GFR 6.14 MG/DL (0.70-1.30); GLOMERULAR FILTRATION RATE 9.9 (>49); MAGNESIUM LEVEL 2.3 MG/DL (1.8-2.4); POTASSIUM SERUM 5.1 MMOL/L (3.5-5.1)
[2023-12-20 08:00] VITALS: BP 152/68; TEMP 97.7; O2SAT 100
[2023-12-20] MEDS ORDERED: OXYC10TA12 PO (09:16)
[2023-12-20 12:00] VITALS: BP 134/89; TEMP 97.5; O2SAT 98
[2023-12-20 13:22] VITALS: O2SAT 95
== END 2023-12-20 15:40 | disposition home or self-care (01) | DRG 204 ==
LOC: M ED 16:16 → EDBD 16:16 → M ED INP 19:41 → M MSPAV 12-17 04:29
PROVIDERS: ADMIT Internal Medicine; ATTEND Internal Medicine
PROC: B246ZZZ Ultrasonography of Right and Left Heart (ICD-10-PCS; principal; 2023-12-17)
PROC: 5A1D70Z Performance of Urinary Filtration, Intermittent, Less than 6 Hours Per Day (ICD-10-PCS; 2023-12-19)
DX: R55 Syncope and collapse (principal); E11.22 Type 2 diabetes mellitus with diabetic chronic kidney disease; N25.81 Secondary hyperparathyroidism of renal origin; N18.6 End stage renal disease; E11.42 Type 2 diabetes mellitus with diabetic polyneuropathy; D47.1 Chronic myeloproliferative disease; I12.0 Hypertensive chronic kidney disease with stage 5 chronic kidney disease or end stage renal disease; E11.51 Type 2 diabetes mellitus with diabetic peripheral angiopathy without gangrene; E87.5 Hyperkalemia; E87.1 Hypo-osmolality and hyponatremia; M54.9 Dorsalgia, unspecified; G89.29 Other chronic pain; E78.5 Hyperlipidemia, unspecified; M10.9 Gout, unspecified; K21.9 Gastro-esophageal reflux disease without esophagitis; K59.00 Constipation, unspecified; I73.9 Peripheral vascular disease, unspecified; D63.1 Anemia in chronic kidney disease; Z99.2 Dependence on renal dialysis; Z96.651 Presence of right artificial knee joint; Z86.711 Personal history of pulmonary embolism; Z86.718 Personal history of other venous thrombosis and embolism; Z79.01 Long term (current) use of anticoagulants; Z89.512 Acquired absence of left leg below knee; Z89.421 Acquired absence of other right toe(s); Z79.899 Other long term (current) drug therapy; Z91.048 Other nonmedicinal substance allergy status; V47.5XXA Car driver injured in collision with fixed or stationary object in traffic accident, initial encounter; Z91.158 Patient's noncompliance with renal dialysis for other reason; S20.211A Contusion of right front wall of thorax, initial encounter

== ENCOUNTER → 2023-12-20 | Outpatient (CLI) | payer MEDICARE, MEDICAID ==
[~2023-12-20] MED LIST changes: +ACET-683 PO; +DIPH-435 PO; +SEVE800T3 PO
== END ==
LOC: M EKG 15:47
PROVIDERS: ATTEND Internal Medicine
DX: R55 Syncope and collapse (principal); Z53.9 Procedure and treatment not carried out, unspecified reason

== ENCOUNTER 2024-01-17 20:49 | Observation (INO) | payer MEDICARE, MEDICAID ==
[~2024-01-17] VITALS: Ht 195.6 cm; Wt 95.0 kg
[2024-01-17 22:17] LABS: BASO # 0.1 10^3/uL (0.0-0.2); EOS # 0.8 10^3/uL (0.0-0.5); EOS % 8.6 % (0.0-3.0); HEMATOCRIT 31.6 % (42.0-52.0); HEMOGLOBIN 9.8 g/dl (13.5-17.5); LYMPH % 10.3 % (24.0-44.0); MEAN CORPUSCULAR HEMOGLOBIN 23.2 pg (27.0-33.0); MEAN CORPUSCULAR VOLUME 74.9 fl (80.0-96.0); MONO # 0.4 10^3/uL (0.0-0.8); MONO % 4.3 % (2.0-8.0); NEUTROPHILS # 7.2 10^3/uL (1.5-8.5); NEUTROPHILS % 74.8 % (36.0-66.0); PLATELET COUNT, AUTOMATED 391 10^3/uL (150-450); RED BLOOD COUNT 4.22 10^6/uL (4.30-6.10); WHITE BLOOD COUNT 9.6 10^3/uL (4.0-10.0)
[2024-01-17 22:26] LABS: ERYTHROCYTE SEDIMENTATION RATE 22 mm/hr (0-20)
[2024-01-17 22:44] LABS: C REACTIVE PROTEIN QUANTITATIV 1.3 MG/DL (<1.0)
[2024-01-17] MEDS: MORPHINE 4 MG/ML 1ML VIAL IV PRN (22:51)
[2024-01-17] MEDS: ONDANSETRON 4MG 2ML VIAL IV ONE (22:51)
[2024-01-17 22:53] LABS: PROCALCITONIN 0.46 ng/ml
[2024-01-17 22:58] LABS: CALCIUM LEVEL 9.3 MG/DL (8.3-10.6); CREATININE FOR GFR 11.24 MG/DL (0.70-1.30); GLOMERULAR FILTRATION RATE 4.9 (>49); POTASSIUM SERUM 5.4 MMOL/L (3.5-5.1)
[2024-01-18] MEDS: PATIROMER SORBITEX CALCIUM 8.4 GM POWDER PACKET (VELTASSA) PO ONE (00:05)
[2024-01-18] MEDS: cefTRIAXone SOD 1 GM in D5W MINI-BAG PLUS 50 ML IV ONE (01:22)
[2024-01-18] MEDS ORDERED: HOME MED LIST COMPLETE! XX SCH (02:00)
[2024-01-18] MEDS ORDERED: MOM 30ML SUSPENSION UDC PO PRN (02:20)
[2024-01-18] MEDS ORDERED: DEXTROSE 50% 50ML SYRINGE IV PRN (06:05)
[2024-01-18] MEDS ORDERED: GLUCOSE 4 GM CHEW PO PRN (06:05)
[2024-01-18] MEDS ORDERED: GLUCAGON INJ 1MG VIAL SC PRN (06:05)
[2024-01-18 07:16] LABS: HEMATOCRIT 33.1 % (42.0-52.0); HEMOGLOBIN 10.1 g/dl (13.5-17.5); MEAN CORPUSCULAR HEMOGLOBIN 23.2 pg (27.0-33.0); MEAN CORPUSCULAR HGB CONC 30.5 g/dl (32.0-36.5); MEAN CORPUSCULAR VOLUME 76.1 fl (80.0-96.0); PLATELET COUNT, AUTOMATED 356 10^3/uL (150-450); RED BLOOD COUNT 4.35 10^6/uL (4.30-6.10); WHITE BLOOD COUNT 8.8 10^3/uL (4.0-10.0)
[2024-01-18] MEDS: oxyCODONE 5MG TAB PO PRN (07:22)
[2024-01-18] MEDS: INSULIN LISPRO (NovoLOG) PER UNIT SC SCH ×2 (07:36→20:24)
[2024-01-18 07:55] LABS: ALBUMIN 2.9 G/DL (3.2-5.2); ALKALINE PHOSPHATASE 91 U/L (46-116); ALT/SGPT < 9 U/L (7.0-40); AST/SGOT 10 U/L (<34); BILIRUBIN,TOTAL 0.3 MG/DL (0.3-1.2); BLOOD UREA NITROGEN 65 MG/DL (9-23); CALCIUM LEVEL 9.6 MG/DL (8.3-10.6); CARBON DIOXIDE LEVEL 23 MMOL/L (20-31); CHLORIDE LEVEL 106 MMOL/L (98-107); CREATININE FOR GFR 11.43 MG/DL (0.70-1.30); GLOMERULAR FILTRATION RATE 4.8 (>49); GLUCOSE, FASTING 75 MG/DL (74-106); POTASSIUM SERUM 5.8 MMOL/L (3.5-5.1); SODIUM LEVEL 136 MMOL/L (136-145); TOTAL PROTEIN 5.6 G/DL (5.7-8.2)
[2024-01-18] MEDS ORDERED: HEPARIN 1,000UNITS/ML 10ML VIAL (FOR RADIOLOGY & DIALYSIS ONLY) IV PRN (08:00)
[2024-01-18] MEDS ORDERED: SODIUM CHLORIDE 0.9% 1000ML IV PRN (08:00)
[2024-01-18] MEDS: DOCUSATE SODIUM 100MG CAPSULE PO SCH (08:35)
[2024-01-18] MEDS: OMEPRAZOLE 20MG CAP PO SCH (08:36)
[2024-01-18] MEDS: APIXABAN 5 MG TAB (ELIQUIS) PO SCH (08:36)
[2024-01-18] MEDS: amLODIPine 5 MG TAB PO SCH (08:36)
[2024-01-18] MEDS ORDERED: TORSEMIDE 100 MG TAB PO SCH (09:00)
[2024-01-18] MEDS: TORSEMIDE (DEMADEX) 50 MG PER 1/2 TAB PO SCH (09:05)
[2024-01-18 12:17] LABS: PHOSPHORUS LEVEL 11.1 MG/DL (2.4-5.1)
[2024-01-18] MEDS: (RENVELA) SEVELAMER **CARBONate** 800 MG TAB PO SCH (12:30)
[2024-01-18] MEDS: HEPARIN 1,000UNITS/ML 10ML VIAL (FOR RADIOLOGY & DIALYSIS ONLY) XX SCH (15:12)
[2024-01-18 16:55] VITALS: BP 121/64; TEMP 97.7; O2SAT 96
[2024-01-18 20:00] VITALS: BP 153/71; TEMP 98; O2SAT 98
[2024-01-18] MEDS: diphenhydrAMINE 25MG CAP PO PRN (20:23)
[2024-01-18] MEDS: ATORVASTATIN 10 MG TAB PO SCH (20:24)
[2024-01-18] MEDS: NORCO, ANEXSIA 5/325MG TABLET (HYDROcodone/ACETAMINOPHEN) PO ONE (22:17)
[2024-01-19 04:00] VITALS: BP 141/57; TEMP 98; O2SAT 96
[2024-01-19] MEDS: LIDOCAINE 5% (LIDODERM) PATCH TD SCH (05:24)
[2024-01-19 05:49] LABS: HEMATOCRIT 34.5 % (42.0-52.0); HEMOGLOBIN 10.4 g/dl (13.5-17.5); MEAN CORPUSCULAR HEMOGLOBIN 22.9 pg (27.0-33.0); MEAN CORPUSCULAR HGB CONC 30.1 g/dl (32.0-36.5); PLATELET COUNT, AUTOMATED 359 10^3/uL (150-450); RED BLOOD COUNT 4.54 10^6/uL (4.30-6.10); WHITE BLOOD COUNT 8.1 10^3/uL (4.0-10.0)
[2024-01-19 06:22] LABS: CALCIUM LEVEL 9.6 MG/DL (8.3-10.6); CREATININE FOR GFR 8.1 MG/DL (0.70-1.30); GLOMERULAR FILTRATION RATE 7.2 (>49); POTASSIUM SERUM 5.1 MMOL/L (3.5-5.1)
[2024-01-19] MEDS: CEPHALEXIN 500 MG CAP PO SCH (11:26)
[2024-01-19] MEDS: INSULIN LISPRO (NovoLOG) PER UNIT SC SCH ×2 (11:40→20:44)
[2024-01-19 12:00] VITALS: BP 123/56; TEMP 98; O2SAT 95
[2024-01-19 19:12] LABS: HEMOGLOBIN A1c 5.1 % (4.0-6.0)
[2024-01-19 20:06] VITALS: BP 140/67; TEMP 98; O2SAT 98
[2024-01-19] MEDS: HEPARIN SOD (PORCINE) 5000UNITS/ML 1ML VIAL/SYRINGE SQ SCH (20:48)
[2024-01-20 04:00] VITALS: BP 134/71; TEMP 98.1; O2SAT 96
[2024-01-20 05:54] LABS: BASO # 0.1 10^3/uL (0.0-0.2); EOS # 0.8 10^3/uL (0.0-0.5); EOS % 8.2 % (0.0-3.0); HEMATOCRIT 33.8 % (42.0-52.0); HEMOGLOBIN 10.2 g/dl (13.5-17.5); LYMPH % 10.9 % (24.0-44.0); MEAN CORPUSCULAR HEMOGLOBIN 22.8 pg (27.0-33.0); MEAN CORPUSCULAR HGB CONC 30.2 g/dl (32.0-36.5); MEAN CORPUSCULAR VOLUME 75.4 fl (80.0-96.0); MONO # 0.4 10^3/uL (0.0-0.8); MONO % 4.3 % (2.0-8.0); NEUTROPHILS # 6.9 10^3/uL (1.5-8.5); NEUTROPHILS % 74.9 % (36.0-66.0); PLATELET COUNT, AUTOMATED 401 10^3/uL (150-450); RED BLOOD COUNT 4.48 10^6/uL (4.30-6.10); WHITE BLOOD COUNT 9.2 10^3/uL (4.0-10.0)
[2024-01-20] MEDS ORDERED: SODIUM CHLORIDE 0.9% 1000ML IV PRN (06:00)
[2024-01-20] MEDS ORDERED: HEPARIN 1,000UNITS/ML 10ML VIAL (FOR RADIOLOGY & DIALYSIS ONLY) IV PRN (06:00)
[2024-01-20 06:26] LABS: CALCIUM LEVEL 9.6 MG/DL (8.3-10.6); CHOLESTEROL RISK RATIO 2.54 (<5); CREATININE FOR GFR 9.45 MG/DL (0.70-1.30); HDL CHOLESTEROL 29.1 MG/DL (>40); LDL CHOLESTEROL 29.7 MG/DL (<100); NON-HDL-C 44.9 MG/DL; POTASSIUM SERUM 5.3 MMOL/L (3.5-5.1)
[2024-01-20] MEDS: HEPARIN 1,000UNITS/ML 10ML VIAL (FOR RADIOLOGY & DIALYSIS ONLY) XX SCH (08:41)
[2024-01-20] MEDS: MORPHINE 2 MG/ML 1ML VIAL IV PRN (11:13)
[2024-01-20 12:36] VITALS: BP 140/70; TEMP 97.7; O2SAT 99
[2024-01-20] MEDS: oxyCODONE 5MG TAB PO PRN (13:13)
[2024-01-20] MEDS ORDERED: HYDROMORPHONE HCL 0.5 MG/ 0.5 ML SYRINGE IV PRN ×2 (14:25)
[2024-01-20] MEDS: GABAPENTIN 100 MG CAP PO ONE (15:08)
[2024-01-20] MEDS ORDERED: PERCOCET 5MG/325MG TAB PO PRN (15:20)
[2024-01-20] MEDS: PERCOCET 5MG/325MG TAB PO PRN (15:42)
[2024-01-20 19:31] VITALS: BP 121/60; TEMP 98.1; O2SAT 96
[2024-01-20] MEDS: ATORVASTATIN 10 MG TAB PO SCH (20:45)
[2024-01-20] MEDS ORDERED: GABAPENTIN 100 MG CAP PO SCH (21:00)
[2024-01-21 03:20] VITALS: BP 121/57; TEMP 98.4; O2SAT 97
[2024-01-21 06:00] LABS: BASO # 0.1 10^3/uL (0.0-0.2); BASO % 1.4 % (0.0-1.0); EOS # 0.7 10^3/uL (0.0-0.5); EOS % 9.2 % (0.0-3.0); HEMATOCRIT 35.2 % (42.0-52.0); HEMOGLOBIN 10.5 g/dl (13.5-17.5); LYMPH # 1.1 10^3/uL (1.5-5.0); LYMPH % 14.5 % (24.0-44.0); MEAN CORPUSCULAR HEMOGLOBIN 22.8 pg (27.0-33.0); MEAN CORPUSCULAR HGB CONC 29.8 g/dl (32.0-36.5); MEAN CORPUSCULAR VOLUME 76.4 fl (80.0-96.0); MONO # 0.4 10^3/uL (0.0-0.8); MONO % 4.8 % (2.0-8.0); NEUTROPHILS # 5.4 10^3/uL (1.5-8.5); NEUTROPHILS % 69.3 % (36.0-66.0); PLATELET COUNT, AUTOMATED 367 10^3/uL (150-450); RED BLOOD COUNT 4.61 10^6/uL (4.30-6.10); WHITE BLOOD COUNT 7.7 10^3/uL (4.0-10.0)
[2024-01-21 06:22] LABS: CALCIUM LEVEL 10.1 MG/DL (8.3-10.6); CREATININE FOR GFR 6.95 MG/DL (0.70-1.30); GLOMERULAR FILTRATION RATE 8.6 (>49); POTASSIUM SERUM 5.2 MMOL/L (3.5-5.1)
[2024-01-21] MEDS ORDERED: HEPARIN 1,000UNITS/ML 10ML VIAL (FOR RADIOLOGY & DIALYSIS ONLY) XX SCH (09:50)
[2024-01-21] MEDS ORDERED: SODIUM CHLORIDE 0.9% 1000ML IV PRN (09:50)
[2024-01-21 10:50] LABS: INR 1.26; PROTHROMBIN TIME 15.4 SECONDS (12.5-14.5)
[2024-01-21] MEDS: HEPARIN 1,000UNITS/ML 10ML VIAL (FOR RADIOLOGY & DIALYSIS ONLY) IV PRN (13:34)
[2024-01-21 19:27] VITALS: BP 125/59; TEMP 98.1; O2SAT 100
[2024-01-21] MEDS: GABAPENTIN 100 MG CAP PO ONE (23:03)
[2024-01-22] VITALS (8 sets, daily range): BP systolic 113–149; BP diastolic 46–81; TEMP 97.5–98.6; O2SAT 91–100
[2024-01-22 05:42] LABS: BASO # 0.1 10^3/uL (0.0-0.2); BASO % 1.3 % (0.0-1.0); EOS # 0.8 10^3/uL (0.0-0.5); EOS % 9.9 % (0.0-3.0); HEMATOCRIT 34.9 % (42.0-52.0); HEMOGLOBIN 10.6 g/dl (13.5-17.5); LYMPH # 1.2 10^3/uL (1.5-5.0); LYMPH % 15.6 % (24.0-44.0); MEAN CORPUSCULAR HEMOGLOBIN 23.2 pg (27.0-33.0); MEAN CORPUSCULAR HGB CONC 30.4 g/dl (32.0-36.5); MEAN CORPUSCULAR VOLUME 76.4 fl (80.0-96.0); MONO # 0.4 10^3/uL (0.0-0.8); NEUTROPHILS # 5.1 10^3/uL (1.5-8.5); NEUTROPHILS % 67.5 % (36.0-66.0); PLATELET COUNT, AUTOMATED 344 10^3/uL (150-450); RED BLOOD COUNT 4.57 10^6/uL (4.30-6.10); WHITE BLOOD COUNT 7.6 10^3/uL (4.0-10.0)
[2024-01-22 06:03] LABS: CALCIUM LEVEL 10.2 MG/DL (8.3-10.6); CREATININE FOR GFR 5.53 MG/DL (0.70-1.30); GLOMERULAR FILTRATION RATE 11.2 (>49)
[2024-01-22] MEDS ORDERED: fentaNYL 100 MCG/2 ML INJECTION As Ordered ONE (08:36)
[2024-01-22] MEDS ORDERED: HEPARIN 1,000UNITS/ML 10ML VIAL (FOR RADIOLOGY & DIALYSIS ONLY) As Ordered ONE (08:36)
[2024-01-22] MEDS ORDERED: MIDAZOLAM INJ 2MG/2ML VIAL As Ordered ONE (08:36)
[2024-01-22] MEDS ORDERED: LIDOCAINE 1% MDV 20ML VIAL As Ordered ONE (08:36)
[2024-01-22] MEDS ORDERED: ISOVUE-300 61% 100ML VIAL As Ordered ONE (08:36)
[2024-01-22] MEDS ORDERED: KETOROLAC 30 MG/ML 1ML VIAL As Ordered ONE (10:00)
[2024-01-22] MEDS ORDERED: propofoL 200 MG/20 ML VIAL As Ordered ONE (11:17)
[2024-01-22] MEDS: NS 1,000 ML IV SCH (12:00)
[2024-01-22] MEDS ORDERED: ONDANSETRON 4MG 2ML VIAL IV PRN (12:00)
[2024-01-22] MEDS: APIXABAN 5 MG TAB (ELIQUIS) PO SCH (20:33)
[2024-01-22] MEDS ORDERED: GABAPENTIN 100 MG CAP PO SCH (21:00)
[2024-01-23 05:30] VITALS: BP 144/74; TEMP 89.1; O2SAT 98
[2024-01-23] MEDS ORDERED: SODIUM CHLORIDE 0.9% 1000ML IV PRN (06:00)
[2024-01-23] MEDS ORDERED: HEPARIN 1,000UNITS/ML 10ML VIAL (FOR RADIOLOGY & DIALYSIS ONLY) IV PRN (06:00)
[2024-01-23] MEDS ORDERED: LIDOCAINE 1% SDV 5ML VIAL SC PRN (06:00)
[2024-01-23 07:21] LABS: BASO # 0.1 10^3/uL (0.0-0.2); BASO % 1.3 % (0.0-1.0); EOS % 10.9 % (0.0-3.0); HEMATOCRIT 34.5 % (42.0-52.0); HEMOGLOBIN 10.4 g/dl (13.5-17.5); LYMPH % 11.6 % (24.0-44.0); MEAN CORPUSCULAR HEMOGLOBIN 23.1 pg (27.0-33.0); MEAN CORPUSCULAR HGB CONC 30.1 g/dl (32.0-36.5); MEAN CORPUSCULAR VOLUME 76.5 fl (80.0-96.0); MONO # 0.4 10^3/uL (0.0-0.8); MONO % 4.6 % (2.0-8.0); NEUTROPHILS # 6.1 10^3/uL (1.5-8.5); NEUTROPHILS % 70.4 % (36.0-66.0); PLATELET COUNT, AUTOMATED 400 10^3/uL (150-450); RED BLOOD COUNT 4.51 10^6/uL (4.30-6.10); WHITE BLOOD COUNT 8.7 10^3/uL (4.0-10.0)
[2024-01-23 07:46] LABS: CREATININE FOR GFR 7.13 MG/DL (0.70-1.30); GLOMERULAR FILTRATION RATE 8.3 (>49); POTASSIUM SERUM 5.6 MMOL/L (3.5-5.1)
[2024-01-23] MEDS: HEPARIN 1,000UNITS/ML 10ML VIAL (FOR RADIOLOGY & DIALYSIS ONLY) XX SCH (11:29)
[2024-01-23 20:00] VITALS: BP 120/71; TEMP 98; O2SAT 98
[2024-01-24] MEDS: GABAPENTIN 100 MG CAP PO ONE (00:04)
[2024-01-24 03:55] VITALS: BP 142/70; TEMP 98.8; O2SAT 100
[2024-01-24 06:07] LABS: BASO # 0.1 10^3/uL (0.0-0.2); BASO % 1.2 % (0.0-1.0); EOS # 0.8 10^3/uL (0.0-0.5); EOS % 10.7 % (0.0-3.0); HEMATOCRIT 32.4 % (42.0-52.0); HEMOGLOBIN 9.7 g/dl (13.5-17.5); LYMPH % 12.6 % (24.0-44.0); MEAN CORPUSCULAR HEMOGLOBIN 22.8 pg (27.0-33.0); MEAN CORPUSCULAR HGB CONC 29.9 g/dl (32.0-36.5); MEAN CORPUSCULAR VOLUME 76.1 fl (80.0-96.0); MONO # 0.4 10^3/uL (0.0-0.8); MONO % 5.1 % (2.0-8.0); NEUTROPHILS # 5.3 10^3/uL (1.5-8.5); NEUTROPHILS % 69.9 % (36.0-66.0); PLATELET COUNT, AUTOMATED 345 10^3/uL (150-450); RED BLOOD COUNT 4.26 10^6/uL (4.30-6.10); WHITE BLOOD COUNT 7.6 10^3/uL (4.0-10.0)
[2024-01-24 06:26] LABS: CALCIUM LEVEL 10.2 MG/DL (8.3-10.6); CREATININE FOR GFR 5.71 MG/DL (0.70-1.30); GLOMERULAR FILTRATION RATE 10.8 (>49); POTASSIUM SERUM 5.3 MMOL/L (3.5-5.1)
[2024-01-24] MEDS: PATIROMER SORBITEX CALCIUM 8.4 GM POWDER PACKET (VELTASSA) PO ONE (10:13)
[2024-01-24 12:00] VITALS: BP 109/54; TEMP 98.8; O2SAT 95
[2024-01-24 20:00] VITALS: BP 130/65; TEMP 98; O2SAT 97
[2024-01-25 04:00] VITALS: BP 123/65; TEMP 98.1; O2SAT 99
[2024-01-25 05:23] VITALS: BP 123/65
[2024-01-25] MEDS ORDERED: LIDOCAINE 1% SDV 5ML VIAL SC PRN (06:00)
[2024-01-25] MEDS ORDERED: SODIUM CHLORIDE 0.9% 1000ML IV PRN (06:00)
[2024-01-25] MEDS ORDERED: HEPARIN 1,000UNITS/ML 10ML VIAL (FOR RADIOLOGY & DIALYSIS ONLY) XX SCH (06:00)
[2024-01-25 06:02] LABS: BASO # 0.1 10^3/uL (0.0-0.2); BASO % 1.2 % (0.0-1.0); EOS # 0.8 10^3/uL (0.0-0.5); EOS % 11.4 % (0.0-3.0); HEMATOCRIT 32.3 % (42.0-52.0); HEMOGLOBIN 9.7 g/dl (13.5-17.5); LYMPH % 13.6 % (24.0-44.0); MEAN CORPUSCULAR HEMOGLOBIN 22.9 pg (27.0-33.0); MEAN CORPUSCULAR VOLUME 76.2 fl (80.0-96.0); MONO # 0.4 10^3/uL (0.0-0.8); MONO % 4.9 % (2.0-8.0); NEUTROPHILS # 4.9 10^3/uL (1.5-8.5); NEUTROPHILS % 68.1 % (36.0-66.0); PLATELET COUNT, AUTOMATED 324 10^3/uL (150-450); RED BLOOD COUNT 4.24 10^6/uL (4.30-6.10); WHITE BLOOD COUNT 7.2 10^3/uL (4.0-10.0)
[2024-01-25 06:25] LABS: CALCIUM LEVEL 9.7 MG/DL (8.3-10.6); CREATININE FOR GFR 7.44 MG/DL (0.70-1.30); GLOMERULAR FILTRATION RATE 7.9 (>49); POTASSIUM SERUM 4.5 MMOL/L (3.5-5.1)
[2024-01-25] MEDS: HEPARIN 1,000UNITS/ML 10ML VIAL (FOR RADIOLOGY & DIALYSIS ONLY) IV PRN (11:24)
[2024-01-25 12:45] VITALS: BP 100/58; TEMP 98.4; O2SAT 100
[2024-01-25] MEDS ORDERED: CEPH500C PO (15:32)
[2024-01-25] MEDS ORDERED: ATOR40TA75 PO (15:32)
[2024-01-25] MEDS ORDERED: RENV2TAB PO (15:32)
[2024-01-25] MEDS ORDERED: GABA-1171 PO (15:32)
[2024-01-25] MEDS: ACETAMINOPHEN TAB 650MG DOSE (2X325MG) PO PRN (16:25)
== END 2024-01-25 16:50 | disposition home or self-care (01) ==
LOC: M ED 20:49 → M ED INP 20:50 → M MSPAV 01-18 16:56
PROVIDERS: ADMIT Student in an Organized Health Care Education/Training Program; ATTEND Internal Medicine
DX: N18.6 End stage renal disease (principal); I70.235 Atherosclerosis of native arteries of right leg with ulceration of other part of foot; I97.638 Postprocedural hematoma of a circulatory system organ or structure following other circulatory system procedure; L97.518 Non-pressure chronic ulcer of other part of right foot with other specified severity; Z86.718 Personal history of other venous thrombosis and embolism; Z99.2 Dependence on renal dialysis; Z91.158 Patient's noncompliance with renal dialysis for other reason; E11.22 Type 2 diabetes mellitus with diabetic chronic kidney disease; D63.1 Anemia in chronic kidney disease; E11.42 Type 2 diabetes mellitus with diabetic polyneuropathy; E11.621 Type 2 diabetes mellitus with foot ulcer; Z89.512 Acquired absence of left leg below knee; Z89.411 Acquired absence of right great toe; Z89.421 Acquired absence of other right toe(s); M25.571 Pain in right ankle and joints of right foot; Z95.828 Presence of other vascular implants and grafts; E87.5 Hyperkalemia; M54.50 Low back pain, unspecified; G89.29 Other chronic pain; I25.10 Atherosclerotic heart disease of native coronary artery without angina pectoris; I50.30 Unspecified diastolic (congestive) heart failure; I11.0 Hypertensive heart disease with heart failure; E78.5 Hyperlipidemia, unspecified
CPT/HCPCS: 11042; 36415; 37224; 73620; 75630; 75774; 80048; 80053; 80061; 83036; 83605; 84100; 84145; 84550; 85025; 85027; 85610; 85652; 86140; 87040; 93926; 93971; 96372; 96374; 96375; 96376; 99285; C1725; C1769; C1894; G0257; G0378; J0696; J1815; J1885; J2250; J2405; J3010; Q9967

== ENCOUNTER → 2024-03-04 | Outpatient (CLI) | payer MEDICARE, MEDICAID ==
[~2024-03-04] MED LIST changes: +ATOR40TA75 PO; +GABA-1172 PO; -GABA-282 PO; +RENV2TAB PO
== END ==
LOC: M RAD 11:17
PROVIDERS: ATTEND Radiology Diagnostic Radiology
DX: I70.203 Unspecified atherosclerosis of native arteries of extremities, bilateral legs (principal)

== ENCOUNTER 2024-05-22 11:47 | Emergency (ER) | payer MEDICARE, MEDICAID ==
[~2024-05-22] VITALS: Ht 195.6 cm; Wt 95.7 kg
[2024-05-22 12:06] VITALS: TEMP 98.2
[2024-05-22 13:50] LABS: HEMATOCRIT 37.8 % (42.0-52.0); HEMOGLOBIN 11.5 g/dl (13.5-17.5); MEAN CORPUSCULAR HEMOGLOBIN 24.3 pg (27.0-33.0); MEAN CORPUSCULAR HGB CONC 30.4 g/dl (32.0-36.5); MEAN CORPUSCULAR VOLUME 79.7 fl (80.0-96.0); PLATELET COUNT, AUTOMATED 398 10^3/uL (150-450); RED BLOOD COUNT 4.74 10^6/uL (4.30-6.10); WHITE BLOOD COUNT 8.6 10^3/uL (4.0-10.0)
[2024-05-22 14:23] LABS: ALKALINE PHOSPHATASE 98 U/L (40-129); ALT/SGPT < 9 U/L (7.0-40); AST/SGOT < 8 U/L (<34); BILIRUBIN,TOTAL 0.3 MG/DL (0.3-1.2); BLOOD UREA NITROGEN 84 MG/DL (9-23); CALCIUM LEVEL 9.5 MG/DL (8.3-10.6); CARBON DIOXIDE LEVEL 19 MMOL/L (20-31); CHLORIDE LEVEL 104 MMOL/L (98-107); CREATININE FOR GFR 13.53 MG/DL (0.70-1.30); GLUCOSE, FASTING 88 MG/DL (74-106); POTASSIUM SERUM 5.3 MMOL/L (3.5-5.1); SODIUM LEVEL 140 MMOL/L (136-145); TOTAL PROTEIN 5.8 G/DL (5.7-8.2)
[2024-05-22] MEDS ORDERED: HEPARIN 1,000UNITS/ML 10ML VIAL (FOR RADIOLOGY & DIALYSIS ONLY) XX SCH (14:25)
[2024-05-22] MEDS ORDERED: SODIUM CHLORIDE 0.9% 1000 ML IV PRN (14:25)
[2024-05-22] MEDS ORDERED: HEPARIN 1,000UNITS/ML 10ML VIAL (FOR RADIOLOGY & DIALYSIS ONLY) IV PRN (14:25)
[2024-05-22 15:17] VITALS: O2SAT 98
[2024-05-22] MEDS ORDERED: PILL CUTTER 1 EACH XX ONE (15:57)
[2024-05-22] MEDS: CETIRIZINE (ZyrTEC) 10 MG TAB PO ONE (16:00)
[2024-05-22 16:11] VITALS: BP 168/90
[2024-05-22] MEDS ORDERED: CETI5TAB2 PO (16:30)
== END 2024-05-22 17:03 | disposition left against medical advice (07) ==
LOC: M ED 11:47 → EDBD 11:47 → M ED 17:03
DX: E87.70 Fluid overload, unspecified (principal); N18.6 End stage renal disease; Z99.2 Dependence on renal dialysis; Z91.158 Patient's noncompliance with renal dialysis for other reason; Z53.9 Procedure and treatment not carried out, unspecified reason; I12.0 Hypertensive chronic kidney disease with stage 5 chronic kidney disease or end stage renal disease; E78.5 Hyperlipidemia, unspecified; M10.9 Gout, unspecified; K21.9 Gastro-esophageal reflux disease without esophagitis; Z86.711 Personal history of pulmonary embolism; Z86.718 Personal history of other venous thrombosis and embolism; Z79.01 Long term (current) use of anticoagulants; Z79.899 Other long term (current) drug therapy; Z88.3 Allergy status to other anti-infective agents; Z91.89 Other specified personal risk factors, not elsewhere classified

== ENCOUNTER 2024-05-30 07:23 | Emergency (ER) | payer MEDICARE, MEDICAID ==
[~2024-05-30] VITALS: Ht 195.6 cm; Wt 90.0 kg
[~2024-05-30 07:23] MED LIST changes: +CETI5TAB2 PO
[2024-05-30 08:19] VITALS: TEMP 99.7; O2SAT 99
[2024-05-30 08:24] VITALS: BP 200/90
[2024-05-30] MEDS: methocarbamoL 750 MG TAB PO ONE (12:15)
[2024-05-30 13:51] LABS: APPEARANCE, URINE CLEAR (CLEAR); BACTERIA, URINE AUTO NEGATIVE (NEGATIVE); BILIRUBIN, URINE AUTO NEGATIVE (NEGATIVE); BLOOD, URINE BLOOD NEGATIVE (NEGATIVE); COLOR, URINE YELLOW (YELLOW); GLUCOSE, URINE (UA) AUTO 2+ mg/dL (NEGATIVE); KETONE, URINE AUTO NEGATIVE (NEGATIVE); LEUKOCYTE ESTERASE, URINE AUTO NEGATIVE (NEGATIVE); NITRITE, URINE AUTO NEGATIVE (NEGATIVE); PROTEIN, URINE AUTO 3+ mg/dL (NEGATIVE); RBC, URINE AUTO 3 /HPF (0-3); SPECIFIC GRAVITY URINE AUTO 1.012 (1.002-1.035); SQUAMOUS EPITHELIAL CELL UR AU 0 /HPF (0-6); UROBILINOGEN, URINE AUTO 0.2 mg/dL (0.0-2.0); WBC, URINE AUTO 2 /HPF (0-3)
[2024-05-30] MEDS ORDERED: ATOR40TA75 PO (16:33)
[2024-05-30] MEDS ORDERED: HOME MED LIST COMPLETE! XX SCH (16:35)
== END 2024-05-30 17:09 | disposition home or self-care (01) ==
LOC: M ED 07:23
DX: S22.080A Wedge compression fracture of T11-T12 vertebra, initial encounter for closed fracture (principal); M51.26 Other intervertebral disc displacement, lumbar region; M25.78 Osteophyte, vertebrae; N18.9 Chronic kidney disease, unspecified; C61 Malignant neoplasm of prostate; Z88.8 Allergy status to other drugs, medicaments and biological substances; Z91.048 Other nonmedicinal substance allergy status; Z79.899 Other long term (current) drug therapy; Z79.01 Long term (current) use of anticoagulants; Z79.02 Long term (current) use of antithrombotics/antiplatelets

== ENCOUNTER 2024-06-01 05:53 | Observation (INO) | payer MEDICARE, MEDICAID ==
[~2024-06-01] VITALS: Ht 195.6 cm; Wt 89.8 kg
[2024-06-01] MEDS: ACETAMINOPHEN 500 MG TAB PO ONE (07:53)
[2024-06-01] MEDS ORDERED: SEVE800T3 PO (08:29)
[2024-06-01] MEDS ORDERED: CETI5TAB5 PO (08:29)
[2024-06-01] MEDS ORDERED: HOME MED LIST COMPLETE! XX SCH (08:35)
[2024-06-01 09:16] LABS: HEMATOCRIT 37.2 % (42.0-52.0); HEMOGLOBIN 11.5 g/dl (13.5-17.5); MEAN CORPUSCULAR HEMOGLOBIN 24.4 pg (27.0-33.0); MEAN CORPUSCULAR HGB CONC 30.9 g/dl (32.0-36.5); MEAN CORPUSCULAR VOLUME 78.8 fl (80.0-96.0); PLATELET COUNT, AUTOMATED 417 10^3/uL (150-450); RED BLOOD COUNT 4.72 10^6/uL (4.30-6.10); WHITE BLOOD COUNT 12.6 10^3/uL (4.0-10.0)
[2024-06-01 09:40] LABS: CALCIUM LEVEL 7.6 MG/DL (8.3-10.6); CREATININE FOR GFR 11.14 MG/DL (0.70-1.30); POTASSIUM SERUM 5.3 MMOL/L (3.5-5.1)
[2024-06-01] MEDS: oxyCODONE 5MG TAB PO ONE (15:22)
[2024-06-01] MEDS ORDERED: MOM 30ML SUSPENSION UDC PO PRN (15:45)
[2024-06-01] MEDS: PATIROMER SORBITEX CALCIUM 8.4 GM POWDER PACKET (VELTASSA) PO ONE (16:00)
[2024-06-01 16:33] LABS: PROCALCITONIN 0.68 ng/ml
[2024-06-01] MEDS: MORPHINE 2 MG/ML 1ML VIAL IV PRN (18:27)
[2024-06-01] MEDS: hydrALAZINE 20MG/ML 1ML VIAL IV PRN (18:27)
[2024-06-01 20:17] VITALS: BP 208/112; TEMP 97.2; O2SAT 98
[2024-06-01] MEDS: hydrALAZINE 20MG/ML 1ML VIAL IV ONE (20:30)
[2024-06-01] MEDS: DOCUSATE SODIUM 100MG CAPSULE PO SCH (21:00)
[2024-06-01 21:32] VITALS: BP 194/84
[2024-06-01] MEDS: ACETAMINOPHEN *IV* 1,000 MG in IV 1 EA IV ONE (21:49)
[2024-06-01] MEDS: MAALOX 30 ML SUSP *UDC PO PRN (21:52)
[2024-06-01 23:01] VITALS: BP 180/88; TEMP 98.3; O2SAT 94
[2024-06-01] MEDS: diphenhydrAMINE 25MG CAP PO ONE (23:48)
[2024-06-02 04:11] VITALS: BP 126/87; TEMP 98.2; O2SAT 95
[2024-06-02] MEDS: oxyCODONE 5MG TAB PO ONE (06:12)
[2024-06-02 07:58] LABS: BASO # 0.1 10^3/uL (0.0-0.2); BASO % 0.7 % (0.0-1.0); EOS # 0.6 10^3/uL (0.0-0.5); EOS % 4.8 % (0.0-3.0); HEMATOCRIT 36.7 % (42.0-52.0); HEMOGLOBIN 11.8 g/dl (13.5-17.5); LYMPH # 0.6 10^3/uL (1.5-5.0); LYMPH % 4.7 % (24.0-44.0); MEAN CORPUSCULAR HEMOGLOBIN 25.3 pg (27.0-33.0); MEAN CORPUSCULAR HGB CONC 32.2 g/dl (32.0-36.5); MEAN CORPUSCULAR VOLUME 78.6 fl (80.0-96.0); MONO # 0.6 10^3/uL (0.0-0.8); MONO % 4.6 % (2.0-8.0); NEUTROPHILS # 10.1 10^3/uL (1.5-8.5); NEUTROPHILS % 83.9 % (36.0-66.0); PLATELET COUNT, AUTOMATED 430 10^3/uL (150-450); RED BLOOD COUNT 4.67 10^6/uL (4.30-6.10)
[2024-06-02 08:35] LABS: CALCIUM LEVEL 7.9 MG/DL (8.3-10.6); CREATININE FOR GFR 11.33 MG/DL (0.70-1.30); GLOMERULAR FILTRATION RATE 4.9 (>49); MAGNESIUM LEVEL 2.4 MG/DL (1.8-2.4); POTASSIUM SERUM 4.6 MMOL/L (3.5-5.1)
[2024-06-02] MEDS: (RENVELA) SEVELAMER **CARBONate** 800 MG TAB PO SCH (08:39)
[2024-06-02] MEDS: APIXABAN 5 MG TAB (ELIQUIS) PO SCH (08:39)
[2024-06-02] MEDS: TORSEMIDE (DEMADEX) 50 MG PER 1/2 TAB PO SCH (08:40)
[2024-06-02] MEDS: diphenhydrAMINE 25MG CAP PO PRN (08:40)
[2024-06-02] MEDS: OMEPRAZOLE 20MG CAP PO SCH (08:40)
[2024-06-02] MEDS: LIDOCAINE 5% (LIDODERM) PATCH TD SCH (08:40)
[2024-06-02 08:44] VITALS: BP 162/72; TEMP 98.7; O2SAT 95
[2024-06-02] MEDS ORDERED: SODIUM CHLORIDE 0.9% 1000 ML IV PRN (09:40)
[2024-06-02] MEDS ORDERED: HEPARIN 1,000UNITS/ML 10ML VIAL (FOR RADIOLOGY & DIALYSIS ONLY) IV PRN (09:40)
[2024-06-02] MEDS ORDERED: LIDOCAINE 1% SDV 5ML VIAL SC PRN (09:40)
[2024-06-02] MEDS: oxyCODONE 5MG TAB PO PRN (12:02)
[2024-06-02 12:03] VITALS: BP 201/100; TEMP 98.4; O2SAT 95
[2024-06-02] MEDS: HEPARIN 1,000UNITS/ML 10ML VIAL (FOR RADIOLOGY & DIALYSIS ONLY) XX SCH (14:24)
[2024-06-02 17:00] VITALS: BP 170/100; TEMP 98.6; O2SAT 95
[2024-06-02] MEDS: **hydrALAZINE** 50 MG TAB PO SCH (17:02)
[2024-06-02 18:07] VITALS: BP 127/73
[2024-06-02] MEDS ORDERED: PILL CUTTER 1 EACH XX PRN (18:20)
[2024-06-02 20:01] VITALS: BP 161/98; TEMP 98.1; O2SAT 100
[2024-06-02] MEDS: ATORVASTATIN 20 MG TAB PO SCH (20:18)
[2024-06-02] MEDS: **hydrALAZINE HCL** 25 MG TAB PO SCH (20:18)
[2024-06-03] VITALS (9 sets, daily range): BP systolic 122–198; BP diastolic 64–118; TEMP 97.7–98.8; O2SAT 94–98
[2024-06-03] MEDS: PERCOCET 5MG/325MG TAB PO ONE (04:13)
[2024-06-03] MEDS: CYCLOBENZAPRINE 5MG TABLET PO ONE (05:04)
[2024-06-03] MEDS ORDERED: SODIUM CHLORIDE 0.9% 1000 ML IV PRN (06:00)
[2024-06-03] MEDS ORDERED: LIDOCAINE 1% SDV 5ML VIAL SC PRN (06:00)
[2024-06-03] MEDS ORDERED: HEPARIN 1,000UNITS/ML 10ML VIAL (FOR RADIOLOGY & DIALYSIS ONLY) IV PRN (06:00)
[2024-06-03] MEDS ORDERED: HEPARIN 1,000UNITS/ML 10ML VIAL (FOR RADIOLOGY & DIALYSIS ONLY) As Ordered ONE (07:58)
[2024-06-03] MEDS ORDERED: LIDOCAINE 1% MDV 20ML VIAL As Ordered ONE (07:59)
[2024-06-03] MEDS ORDERED: ceFAZolin 2 GM/D5W 50 ML IV BAG As Ordered ONE (08:01)
[2024-06-03] MEDS ORDERED: NS (Normal Saline) 0.9% 1,000 ML IV SCH (08:05)
[2024-06-03] MEDS: ceFAZolin SOD 2 GM in IV 1 EA IV ONE (08:15)
[2024-06-03] MEDS ORDERED: MIDAZOLAM INJ 2MG/2ML VIAL As Ordered ONE (08:19)
[2024-06-03] MEDS ORDERED: fentaNYL 100 MCG/2 ML INJECTION As Ordered ONE (08:19)
[2024-06-03] MEDS ORDERED: diphenhydrAMINE 50MG/ML VIAL As Ordered ONE (08:41)
[2024-06-03] MEDS: **hydrALAZINE HCL** 25 MG TAB PO ONE (10:31)
[2024-06-03 10:59] LABS: BASO # 0.1 10^3/uL (0.0-0.2); BASO % 1.5 % (0.0-1.0); EOS # 0.5 10^3/uL (0.0-0.5); EOS % 5.5 % (0.0-3.0); HEMATOCRIT 39.8 % (42.0-52.0); HEMOGLOBIN 12.3 g/dl (13.5-17.5); LYMPH # 0.8 10^3/uL (1.5-5.0); LYMPH % 9.9 % (24.0-44.0); MEAN CORPUSCULAR HEMOGLOBIN 24.7 pg (27.0-33.0); MEAN CORPUSCULAR HGB CONC 30.9 g/dl (32.0-36.5); MEAN CORPUSCULAR VOLUME 80.1 fl (80.0-96.0); MONO # 0.5 10^3/uL (0.0-0.8); MONO % 5.7 % (2.0-8.0); NEUTROPHILS # 6.3 10^3/uL (1.5-8.5); NEUTROPHILS % 76.2 % (36.0-66.0); PLATELET COUNT, AUTOMATED 380 10^3/uL (150-450); RED BLOOD COUNT 4.97 10^6/uL (4.30-6.10); WHITE BLOOD COUNT 8.2 10^3/uL (4.0-10.0)
[2024-06-03 11:23] LABS: CREATININE FOR GFR 8.37 MG/DL (0.70-1.30); GLOMERULAR FILTRATION RATE 6.9 (>49); MAGNESIUM LEVEL 2.4 MG/DL (1.8-2.4); POTASSIUM SERUM 4.5 MMOL/L (3.5-5.1)
[2024-06-03] MEDS: HEPARIN 1,000UNITS/ML 10ML VIAL (FOR RADIOLOGY & DIALYSIS ONLY) XX SCH (13:35)
[2024-06-03] MEDS: CYCLOBENZAPRINE 5MG TABLET PO PRN (17:30)
[2024-06-03 23:17] LABS: APPEARANCE, URINE CLEAR (CLEAR); BACTERIA, URINE AUTO NEGATIVE (NEGATIVE); BILIRUBIN, URINE AUTO NEGATIVE (NEGATIVE); BLOOD, URINE BLOOD NEGATIVE (NEGATIVE); COLOR, URINE YELLOW (YELLOW); GLUCOSE, URINE (UA) AUTO 1+ mg/dL (NEGATIVE); KETONE, URINE AUTO NEGATIVE (NEGATIVE); LEUKOCYTE ESTERASE, URINE AUTO NEGATIVE (NEGATIVE); NITRITE, URINE AUTO NEGATIVE (NEGATIVE); PROTEIN, URINE AUTO 3+ mg/dL (NEGATIVE); RBC, URINE AUTO 0 /HPF (0-3); SQUAMOUS EPITHELIAL CELL UR AU 0 /HPF (0-6); UROBILINOGEN, URINE AUTO 0.2 mg/dL (0.0-2.0); WBC, URINE AUTO 0 /HPF (0-3)
[2024-06-04] MEDS: ACETAMINOPHEN 500 MG TAB PO ONE (04:30)
[2024-06-04 04:59] VITALS: BP 172/80; TEMP 97.2; O2SAT 99
[2024-06-04 08:00] VITALS: BP 181/109; TEMP 97.2; O2SAT 94
[2024-06-04] MEDS: HYDROMORPHONE HCL 0.5 MG/ 0.5 ML SYRINGE IV PRN (11:52)
[2024-06-04 12:00] VITALS: BP 132/86; TEMP 98.5; O2SAT 98
[2024-06-04] MEDS: HYDROMORPHONE HCL 0.5 MG/ 0.5 ML SYRINGE IV ONE (13:40)
[2024-06-04 16:00] VITALS: BP 172/112; TEMP 98.5; O2SAT 100
[2024-06-04 16:49] VITALS: BP 160/90
[2024-06-04] MEDS ORDERED: ISOVUE-370 76% 100ML VIAL As Ordered ONE (19:38)
[2024-06-04 21:19] VITALS: BP 160/86; TEMP 97; O2SAT 97
[2024-06-05 08:00] VITALS: BP 171/106; TEMP 98.2; O2SAT 98
[2024-06-05 11:46] VITALS: BP 182/97; TEMP 98.2; O2SAT 99
[2024-06-05 16:00] VITALS: BP 185/99; TEMP 98.9; O2SAT 90
[2024-06-05 20:02] VITALS: BP 193/91; TEMP 98.3; O2SAT 97
[2024-06-05 21:08] VITALS: BP 171/83
[2024-06-05] MEDS: amLODIPine 5 MG TAB PO ONE (22:21)
[2024-06-05] MEDS: ACETAMINOPHEN 325 MG TAB PO PRN (22:24)
[2024-06-05 23:32] VITALS: BP 192/95; O2SAT 97
[2024-06-06] MEDS: hydrALAZINE 20MG/ML 1ML VIAL IV ONE (00:41)
[2024-06-06 01:12] VITALS: BP 182/87
[2024-06-06 03:35] VITALS: BP 157/81; TEMP 97.8; O2SAT 98
[2024-06-06] MEDS ORDERED: SODIUM CHLORIDE 0.9% 1000 ML IV PRN (06:00)
[2024-06-06] MEDS ORDERED: HEPARIN 1,000UNITS/ML 10ML VIAL (FOR RADIOLOGY & DIALYSIS ONLY) IV PRN (06:00)
[2024-06-06 08:01] VITALS: BP 165/100; TEMP 97.9; O2SAT 94
[2024-06-06 08:04] VITALS: BP 165/100
[2024-06-06] MEDS: **hydrALAZINE** 50 MG TAB PO SCH (08:04)
[2024-06-06] MEDS: HEPARIN 1,000UNITS/ML 10ML VIAL (FOR RADIOLOGY & DIALYSIS ONLY) XX SCH (09:26)
== END 2024-06-06 14:50 | disposition left against medical advice (07) ==
LOC: EDBD 05:53 → M ED 05:53 → M ED INP 15:43 → M PCU 20:18
PROVIDERS: ADMIT Internal Medicine; ATTEND Internal Medicine
DX: S70.02XA Contusion of left hip, initial encounter (principal); N18.6 End stage renal disease; Z99.2 Dependence on renal dialysis; I12.0 Hypertensive chronic kidney disease with stage 5 chronic kidney disease or end stage renal disease; E78.5 Hyperlipidemia, unspecified; M10.9 Gout, unspecified; M54.9 Dorsalgia, unspecified; G89.29 Other chronic pain; K21.9 Gastro-esophageal reflux disease without esophagitis; W01.0XXA Fall on same level from slipping, tripping and stumbling without subsequent striking against object, initial encounter; Y92.010 Kitchen of single-family (private) house as the place of occurrence of the external cause; E87.5 Hyperkalemia; E11.22 Type 2 diabetes mellitus with diabetic chronic kidney disease; E11.51 Type 2 diabetes mellitus with diabetic peripheral angiopathy without gangrene; I73.9 Peripheral vascular disease, unspecified; E11.42 Type 2 diabetes mellitus with diabetic polyneuropathy; N43.3 Hydrocele, unspecified; R45.851 Suicidal ideations; D47.1 Chronic myeloproliferative disease; N25.81 Secondary hyperparathyroidism of renal origin; R10.30 Lower abdominal pain, unspecified; I16.0 Hypertensive urgency; B88.1 Tungiasis [sandflea infestation]; Z89.512 Acquired absence of left leg below knee; Z89.421 Acquired absence of other right toe(s); Z96.651 Presence of right artificial knee joint; Z86.711 Personal history of pulmonary embolism; Z86.718 Personal history of other venous thrombosis and embolism; Z79.01 Long term (current) use of anticoagulants; Z79.899 Other long term (current) drug therapy; Z88.8 Allergy status to other drugs, medicaments and biological substances; Z91.048 Other nonmedicinal substance allergy status; Z91.158 Patient's noncompliance with renal dialysis for other reason
CPT/HCPCS: 36415; 36581; 70450; 72110; 72125; 72131; 72193; 73502; 73700; 73721; 76870; 80048; 81001; 83735; 84145; 85025; 85027; 90935; 93005; 93976; 96374; 96375; 96376; 99152; 99153; 99285; C1750; G0257; G0378; J0131; J0360; J0690; J1171; J1200; J2250; J3010; Q9967

== ENCOUNTER 2024-06-30 18:27 | Inpatient (IN) | payer MEDICARE, MEDICAID ==
[~2024-06-30] VITALS: Ht 195.6 cm; Wt 93.4 kg
[~2024-06-30 18:27] MED LIST changes: +CETI5TAB5 PO
[2024-06-30 19:20] LABS: KETONE, URINE AUTO RFX NEGATIVE (NEGATIVE); LEUKOCYTE ESTERASE UR AUTO RFX NEGATIVE (NEGATIVE); NITRITE, URINE AUTO RFX NEGATIVE (NEGATIVE); RBC, URINE AUTO RFX 1 /HPF (0-3); SQUAM EPITHELIAL CELL UR AURFX 0 /HPF (0-6); WBC, URINE AUTO RFX 1 /HPF (0-3)
[2024-06-30 19:21] LABS: BASO # 0.1 10^3/uL (0.0-0.2); EOS # 0.4 10^3/uL (0.0-0.5); EOS % 4.3 % (0.0-3.0); HEMATOCRIT 34.3 % (42.0-52.0); HEMOGLOBIN 10.8 g/dl (13.5-17.5); LYMPH # 0.6 10^3/uL (1.5-5.0); LYMPH % 6.3 % (24.0-44.0); MEAN CORPUSCULAR HEMOGLOBIN 25.8 pg (27.0-33.0); MEAN CORPUSCULAR HGB CONC 31.5 g/dl (32.0-36.5); MEAN CORPUSCULAR VOLUME 82.1 fl (80.0-96.0); MONO # 0.4 10^3/uL (0.0-0.8); MONO % 4.4 % (2.0-8.0); NEUTROPHILS # 7.8 10^3/uL (1.5-8.5); NEUTROPHILS % 83.2 % (36.0-66.0); PLATELET COUNT, AUTOMATED 464 10^3/uL (150-450); RED BLOOD COUNT 4.18 10^6/uL (4.30-6.10); WHITE BLOOD COUNT 9.3 10^3/uL (4.0-10.0)
[2024-06-30 19:33] LABS: LIPASE 32 U/L (12-53)
[2024-06-30 19:42] LABS: ALBUMIN 3.1 G/DL (3.2-5.2); ALKALINE PHOSPHATASE 108 U/L (40-129); ALT/SGPT < 9 U/L (7.0-40); AST/SGOT < 8 U/L (<34); BILIRUBIN,DIRECT 0.2 MG/DL (<0.4); BILIRUBIN,TOTAL 0.4 MG/DL (0.3-1.2); BLOOD UREA NITROGEN 97 MG/DL (9-23); CALCIUM LEVEL 8.7 MG/DL (8.3-10.6); CARBON DIOXIDE LEVEL 21 MMOL/L (20-31); CHLORIDE LEVEL 102 MMOL/L (98-107); CREATININE FOR GFR 11.57 MG/DL (0.70-1.30); GLOMERULAR FILTRATION RATE 4.8 (>49); GLUCOSE, FASTING 132 MG/DL (74-106); POTASSIUM SERUM 5.6 MMOL/L (3.5-5.1); SODIUM LEVEL 140 MMOL/L (136-145); TOTAL PROTEIN 6.4 G/DL (5.7-8.2)
[2024-06-30] MEDS: CALCIUM GLUCONATE 1,000 MG in DEXTROSE 5% (D5W) MINI-BAG PLU 100 ML IV ONE (20:34)
[2024-06-30] MEDS: HumuLIN R (REGULAR) INSULIN (NovoLIN R) **100U/ML** PER UNIT IV ONE (20:35)
[2024-06-30] MEDS: DEXTROSE 50% 50ML SYRINGE IV STA ×2 (20:35→22:04)
[2024-06-30] MEDS: PATIROMER SORBITEX CALCIUM 8.4 GM POWDER PACKET (VELTASSA) PO ONE (22:40)
[2024-06-30] MEDS ORDERED: HOME MED LIST COMPLETE! XX SCH (23:45)
[2024-06-30] MEDS ORDERED: MOM 30ML SUSPENSION UDC PO PRN (23:55)
[2024-07-01] MEDS: **hydrALAZINE** 10 MG TAB PO ONE (00:03)
[2024-07-01] MEDS: ACETAMINOPHEN 325 MG TAB PO PRN (04:23)
[2024-07-01] MEDS: oxyCODONE 5MG TAB PO ONE (04:47)
[2024-07-01] MEDS: **hydrALAZINE** 10 MG TAB PO STA (06:21)
[2024-07-01 06:57] LABS: HEMATOCRIT 31.8 % (42.0-52.0); HEMOGLOBIN 9.8 g/dl (13.5-17.5); MEAN CORPUSCULAR HEMOGLOBIN 25.2 pg (27.0-33.0); MEAN CORPUSCULAR HGB CONC 30.8 g/dl (32.0-36.5); MEAN CORPUSCULAR VOLUME 81.7 fl (80.0-96.0); PLATELET COUNT, AUTOMATED 395 10^3/uL (150-450); RED BLOOD COUNT 3.89 10^6/uL (4.30-6.10); WHITE BLOOD COUNT 9.1 10^3/uL (4.0-10.0)
[2024-07-01 07:25] LABS: ALBUMIN 2.9 G/DL (3.2-5.2); ALKALINE PHOSPHATASE 102 U/L (40-129); ALT/SGPT < 9 U/L (7.0-40); AST/SGOT < 8 U/L (<34); BILIRUBIN,TOTAL 0.4 MG/DL (0.3-1.2); BLOOD UREA NITROGEN 102 MG/DL (9-23); CALCIUM LEVEL 8.5 MG/DL (8.3-10.6); CARBON DIOXIDE LEVEL 19 MMOL/L (20-31); CHLORIDE LEVEL 102 MMOL/L (98-107); CREATININE FOR GFR 11.51 MG/DL (0.70-1.30); GLOMERULAR FILTRATION RATE 4.8 (>49); GLUCOSE, FASTING 78 MG/DL (74-106); MAGNESIUM LEVEL 2.4 MG/DL (1.8-2.4); POTASSIUM SERUM 5.8 MMOL/L (3.5-5.1); SODIUM LEVEL 138 MMOL/L (136-145); TOTAL PROTEIN 5.8 G/DL (5.7-8.2)
[2024-07-01] MEDS: CALCIUM GLUCONATE 1,000 MG in DEXTROSE 5% (D5W) MINI-BAG PLU 100 ML IV ONE (07:52)
[2024-07-01] MEDS: PANTOPRAZOLE 40MG VIAL IV SCH (07:52)
[2024-07-01] MEDS: CETIRIZINE (ZyrTEC) 10 MG TAB PO SCH (07:53)
[2024-07-01] MEDS: DOCUSATE SODIUM 100MG CAPSULE PO SCH (07:53)
[2024-07-01] MEDS: APIXABAN 5 MG TAB (ELIQUIS) PO SCH (07:53)
[2024-07-01] MEDS: ATORVASTATIN 10 MG TAB PO SCH (07:54)
[2024-07-01] MEDS: TORSEMIDE (DEMADEX) 50 MG PER 1/2 TAB PO SCH (07:55)
[2024-07-01] MEDS: (RENVELA) SEVELAMER **CARBONate** 800 MG TAB PO SCH (07:55)
[2024-07-01] MEDS ORDERED: HEPARIN 1,000UNITS/ML 10ML VIAL (FOR RADIOLOGY & DIALYSIS ONLY) IV PRN (11:15)
[2024-07-01] MEDS ORDERED: SODIUM CHLORIDE 0.9% 1000 ML IV PRN (11:15)
[2024-07-01] MEDS ORDERED: LIDOCAINE 1% SDV 5ML VIAL SC PRN (11:15)
[2024-07-01 11:59] VITALS: TEMP 97.7; O2SAT 98
[2024-07-01 12:30] VITALS: BP 188/90
[2024-07-01] MEDS: oxyCODONE 5MG TAB PO PRN ×2 (13:11→20:00)
[2024-07-01] MEDS: HEPARIN 1,000UNITS/ML 10ML VIAL (FOR RADIOLOGY & DIALYSIS ONLY) XX SCH (15:00)
[2024-07-01 18:15] VITALS: BP 180/94; TEMP 98.3; O2SAT 99
[2024-07-01 20:23] VITALS: BP 176/92; TEMP 97.3; O2SAT 98
[2024-07-01] MEDS: diphenhydrAMINE 50MG/ML VIAL IV ONE (21:33)
[2024-07-01 23:38] VITALS: BP 170/82; TEMP 97.8; O2SAT 98
[2024-07-02] VITALS (7 sets, daily range): BP systolic 156–198; BP diastolic 78–98; TEMP 97.1–98.6; O2SAT 94–98
[2024-07-02] MEDS: diphenhydrAMINE 25MG CAP PO PRN (02:45)
[2024-07-02] MEDS ORDERED: HEPARIN 1,000UNITS/ML 10ML VIAL (FOR RADIOLOGY & DIALYSIS ONLY) IV PRN (06:35)
[2024-07-02] MEDS ORDERED: SODIUM CHLORIDE 0.9% 1000 ML IV PRN (06:35)
[2024-07-02] MEDS ORDERED: HEPARIN 1,000UNITS/ML 10ML VIAL (FOR RADIOLOGY & DIALYSIS ONLY) XX SCH (06:35)
[2024-07-02] MEDS ORDERED: LIDOCAINE 1% SDV 5ML VIAL SC PRN (06:35)
[2024-07-02 06:36] LABS: CALCIUM LEVEL 8.4 MG/DL (8.3-10.6); CREATININE FOR GFR 7.14 MG/DL (0.70-1.30); GLOMERULAR FILTRATION RATE 8.3 (>49); MAGNESIUM LEVEL 2.1 MG/DL (1.8-2.4); POTASSIUM SERUM 4.8 MMOL/L (3.5-5.1)
[2024-07-02 07:19] LABS: BASO # 0.1 10^3/uL (0.0-0.2); BASO % 0.9 % (0.0-1.0); EOS # 0.5 10^3/uL (0.0-0.5); EOS % 5.6 % (0.0-3.0); HEMATOCRIT 31.4 % (42.0-52.0); HEMOGLOBIN 9.8 g/dl (13.5-17.5); LYMPH # 0.8 10^3/uL (1.5-5.0); MEAN CORPUSCULAR HEMOGLOBIN 25.8 pg (27.0-33.0); MEAN CORPUSCULAR HGB CONC 31.2 g/dl (32.0-36.5); MEAN CORPUSCULAR VOLUME 82.6 fl (80.0-96.0); MONO # 0.5 10^3/uL (0.0-0.8); MONO % 5.7 % (2.0-8.0); NEUTROPHILS # 6.2 10^3/uL (1.5-8.5); NEUTROPHILS % 77.2 % (36.0-66.0); PLATELET COUNT, AUTOMATED 361 10^3/uL (150-450); WHITE BLOOD COUNT 8.1 10^3/uL (4.0-10.0)
[2024-07-02] MEDS ORDERED: PILL CUTTER 1 EACH XX PRN (11:00)
[2024-07-02] MEDS: amLODIPine 5 MG TAB PO SCH (12:38)
[2024-07-02] MEDS: LOSARTAN 25 MG TAB PO SCH (12:39)
[2024-07-02 14:42] LABS: CALCIUM LEVEL 8.4 MG/DL (8.3-10.6); CREATININE FOR GFR 4.29 MG/DL (0.70-1.30); POTASSIUM SERUM 4.3 MMOL/L (3.5-5.1)
[2024-07-02] MEDS: PANTOPRAZOLE 40MG TAB (PROTONIX) PO SCH (14:49)
[2024-07-02 19:07] LABS: ALBUMIN 2.8 G/DL (3.2-5.2); ALKALINE PHOSPHATASE 92 U/L (40-129); ALT/SGPT < 9 U/L (7.0-40); AST/SGOT < 8 U/L (<34); BILIRUBIN,TOTAL 0.4 MG/DL (0.3-1.2); BLOOD UREA NITROGEN 30 MG/DL (9-23); CALCIUM LEVEL 8.2 MG/DL (8.3-10.6); CARBON DIOXIDE LEVEL 25 MMOL/L (20-31); CHLORIDE LEVEL 104 MMOL/L (98-107); CREATININE FOR GFR 4.62 MG/DL (0.70-1.30); GLOMERULAR FILTRATION RATE 13.7 (>49); GLUCOSE, FASTING 87 MG/DL (74-106); POTASSIUM SERUM 4.8 MMOL/L (3.5-5.1); SODIUM LEVEL 139 MMOL/L (136-145); TOTAL PROTEIN 5.8 G/DL (5.7-8.2)
[2024-07-03] MEDS: MAALOX 30 ML SUSP *UDC PO PRN (02:58)
[2024-07-03] MEDS: CALCIUM CARBONATE 500 MG CHEW U/D PO ONE (04:12)
[2024-07-03 06:17] LABS: BASO # 0.1 10^3/uL (0.0-0.2); EOS # 0.5 10^3/uL (0.0-0.5); EOS % 5.5 % (0.0-3.0); HEMATOCRIT 32.8 % (42.0-52.0); HEMOGLOBIN 9.8 g/dl (13.5-17.5); LYMPH % 9.7 % (24.0-44.0); MEAN CORPUSCULAR HGB CONC 29.9 g/dl (32.0-36.5); MEAN CORPUSCULAR VOLUME 83.7 fl (80.0-96.0); MONO # 0.5 10^3/uL (0.0-0.8); MONO % 5.3 % (2.0-8.0); NEUTROPHILS # 7.6 10^3/uL (1.5-8.5); NEUTROPHILS % 77.8 % (36.0-66.0); PLATELET COUNT, AUTOMATED 373 10^3/uL (150-450); RED BLOOD COUNT 3.92 10^6/uL (4.30-6.10); WHITE BLOOD COUNT 9.8 10^3/uL (4.0-10.0)
[2024-07-03] MEDS ORDERED: MAALOX 30 ML SUSP *UDC PO PRN (09:25)
[2024-07-03] MEDS ORDERED: OMEPRAZOLE 20MG CAP PO ONE (10:00)
[2024-07-03] MEDS ORDERED: LOSA-527 PO (10:32)
[2024-07-03] MEDS ORDERED: NORV5TAB PO (10:32)
[2024-07-03] MEDS ORDERED: CEFD1CAP9 PO (10:33)
[2024-07-03] MEDS ORDERED: AZIT500T5 PO (10:33)
[2024-07-03] MEDS: AZITHROMYCIN 250MG TABLET PO ONE (12:16)
[2024-07-03] MEDS: VANICREAM MOISTURIZING SKIN CREAM 113GM TUBE TOP SCH (12:17)
[2024-07-03] MEDS ORDERED: METOCLOPRAMIDE INJ 10MG/2ML VIAL IV ONE (20:00)
[2024-07-03 20:11] VITALS: BP 141/109; TEMP 97.7; O2SAT 100
[2024-07-04 05:02] VITALS: BP 170/100; TEMP 97.7; O2SAT 98
[2024-07-04] MEDS: LOSARTAN 25 MG TAB PO SCH (07:45)
[2024-07-04] MEDS: OMEPRAZOLE 20MG CAP PO SCH (07:47)
[2024-07-04] MEDS: AZITHROMYCIN 250MG TABLET PO SCH (07:47)
[2024-07-04] MEDS: METOPROLOL SUCC *XL* 25MG TAB (TopROL *XL*) PO SCH (07:48)
[2024-07-04] MEDS ORDERED: SODIUM CHLORIDE 0.9% 1000 ML IV PRN (10:15)
[2024-07-04] MEDS ORDERED: HEPARIN 1,000UNITS/ML 10ML VIAL (FOR RADIOLOGY & DIALYSIS ONLY) IV PRN (10:15)
[2024-07-04 12:00] VITALS: BP 183/109; TEMP 97.9; O2SAT 96
[2024-07-04] MEDS: NITROGLYCERIN 0.4MG SUBL TABLET SL STA (13:11)
[2024-07-04] MEDS ORDERED: ISOVUE-370 76% 100ML VIAL As Ordered ONE (13:39)
[2024-07-04 14:29] VITALS: BP 180/107
[2024-07-04] MEDS: cefTRIAXone SOD 1 GM in DEXTROSE 5% (D5W) ADV/MINI-BAG 50 ML IV SCH (17:14)
[2024-07-04 20:00] VITALS: BP 137/83; TEMP 98.1; O2SAT 94
[2024-07-05] VITALS (7 sets, daily range): BP systolic 157–162; BP diastolic 92–99; TEMP 97.7–97.9; O2SAT 96–99
[2024-07-05] MEDS ORDERED: HEPARIN 1,000UNITS/ML 10ML VIAL (FOR RADIOLOGY & DIALYSIS ONLY) IV PRN (06:00)
[2024-07-05] MEDS ORDERED: SODIUM CHLORIDE 0.9% 1000 ML IV PRN (06:00)
[2024-07-05] MEDS ORDERED: HEPARIN 1,000UNITS/ML 10ML VIAL (FOR RADIOLOGY & DIALYSIS ONLY) XX SCH (06:00)
[2024-07-05 06:27] LABS: BASO # 0.1 10^3/uL (0.0-0.2); BASO % 0.9 % (0.0-1.0); EOS # 0.6 10^3/uL (0.0-0.5); EOS % 6.1 % (0.0-3.0); HEMATOCRIT 29.9 % (42.0-52.0); HEMOGLOBIN 9.3 g/dl (13.5-17.5); LYMPH % 9.6 % (24.0-44.0); MEAN CORPUSCULAR HEMOGLOBIN 26.2 pg (27.0-33.0); MEAN CORPUSCULAR HGB CONC 31.1 g/dl (32.0-36.5); MEAN CORPUSCULAR VOLUME 84.2 fl (80.0-96.0); MONO # 0.5 10^3/uL (0.0-0.8); MONO % 4.3 % (2.0-8.0); NEUTROPHILS # 8.2 10^3/uL (1.5-8.5); NEUTROPHILS % 78.5 % (36.0-66.0); PLATELET COUNT, AUTOMATED 356 10^3/uL (150-450); RED BLOOD COUNT 3.55 10^6/uL (4.30-6.10); WHITE BLOOD COUNT 10.5 10^3/uL (4.0-10.0)
[2024-07-05 07:04] LABS: ALKALINE PHOSPHATASE 91 U/L (40-129); ALT/SGPT < 9 U/L (7.0-40); AST/SGOT < 8 U/L (<34); BILIRUBIN,TOTAL 0.3 MG/DL (0.3-1.2); BLOOD UREA NITROGEN 64 MG/DL (9-23); CALCIUM LEVEL 9.2 MG/DL (8.3-10.6); CARBON DIOXIDE LEVEL 21 MMOL/L (20-31); CHLORIDE LEVEL 102 MMOL/L (98-107); CREATININE FOR GFR 7.56 MG/DL (0.70-1.30); GLOMERULAR FILTRATION RATE 7.8 (>49); GLUCOSE, FASTING 79 MG/DL (74-106); POTASSIUM SERUM 6.3 MMOL/L (3.5-5.1); SODIUM LEVEL 136 MMOL/L (136-145)
[2024-07-05] MEDS: HEPARIN 1,000UNITS/ML 10ML VIAL (FOR RADIOLOGY & DIALYSIS ONLY) XX SCH (09:58)
[2024-07-05] MEDS: DARBEPOETIN 100MCG/0.5ML *DIALYSIS* SYRINGE IV SCH (10:27)
[2024-07-05 14:42] LABS: CALCIUM LEVEL 8.9 MG/DL (8.3-10.6); CREATININE FOR GFR 4.76 MG/DL (0.70-1.30); GLOMERULAR FILTRATION RATE 13.3 (>49); POTASSIUM SERUM 4.2 MMOL/L (3.5-5.1)
[2024-07-05] MEDS: ALPRAZolam 0.25 MG TAB PO PRN (21:23)
[2024-07-06 05:54] LABS: BASO # 0.1 10^3/uL (0.0-0.2); BASO % 1.2 % (0.0-1.0); EOS # 0.6 10^3/uL (0.0-0.5); EOS % 7.5 % (0.0-3.0); HEMATOCRIT 28.6 % (42.0-52.0); HEMOGLOBIN 8.9 g/dl (13.5-17.5); LYMPH # 0.9 10^3/uL (1.5-5.0); LYMPH % 10.7 % (24.0-44.0); MEAN CORPUSCULAR HEMOGLOBIN 26.1 pg (27.0-33.0); MEAN CORPUSCULAR HGB CONC 31.1 g/dl (32.0-36.5); MEAN CORPUSCULAR VOLUME 83.9 fl (80.0-96.0); MONO # 0.4 10^3/uL (0.0-0.8); MONO % 4.4 % (2.0-8.0); NEUTROPHILS # 6.1 10^3/uL (1.5-8.5); NEUTROPHILS % 75.6 % (36.0-66.0); PLATELET COUNT, AUTOMATED 295 10^3/uL (150-450); RED BLOOD COUNT 3.41 10^6/uL (4.30-6.10)
[2024-07-06 06:19] VITALS: BP 162/93; TEMP 97.9; O2SAT 98
[2024-07-06 06:32] LABS: ALBUMIN 2.8 G/DL (3.2-5.2); ALKALINE PHOSPHATASE 88 U/L (40-129); ALT/SGPT < 9 U/L (7.0-40); AST/SGOT < 8 U/L (<34); BILIRUBIN,TOTAL 0.3 MG/DL (0.3-1.2); BLOOD UREA NITROGEN 47 MG/DL (9-23); CALCIUM LEVEL 8.6 MG/DL (8.3-10.6); CARBON DIOXIDE LEVEL 25 MMOL/L (20-31); CHLORIDE LEVEL 101 MMOL/L (98-107); CREATININE FOR GFR 5.83 MG/DL (0.70-1.30); GLOMERULAR FILTRATION RATE 10.5 (>49); GLUCOSE, FASTING 99 MG/DL (74-106); SODIUM LEVEL 139 MMOL/L (136-145); TOTAL PROTEIN 5.6 G/DL (5.7-8.2)
[2024-07-06] MEDS ORDERED: SODIUM CHLORIDE 0.9% 1000 ML IV PRN (07:55)
[2024-07-06] MEDS ORDERED: HEPARIN 1,000UNITS/ML 10ML VIAL (FOR RADIOLOGY & DIALYSIS ONLY) IV PRN (07:55)
[2024-07-06] MEDS: LOSARTAN 50MG TABLET PO SCH (10:23)
[2024-07-06 10:24] VITALS: BP 158/94
[2024-07-06] MEDS ORDERED: AMLO1TAB24 PO ×2 (11:43→14:39)
[2024-07-06] MEDS ORDERED: METO1TAB32 PO ×2 (11:43→14:39)
[2024-07-06] MEDS ORDERED: LOSA-528 PO (11:43)
[2024-07-06 12:00] VITALS: BP 159/93; TEMP 98.1; O2SAT 94
[2024-07-06] MEDS: HEPARIN 1,000UNITS/ML 10ML VIAL (FOR RADIOLOGY & DIALYSIS ONLY) XX SCH (13:42)
[2024-07-06 16:49] VITALS: O2SAT 96
== END 2024-07-06 17:05 | disposition home or self-care (01) | DRG 682 ==
LOC: EDBD 18:27 → M ED 18:27 → M ED INP 23:54 → M PCU 07-01 11:35 → M MSPAV 07-02 23:46
PROVIDERS: ADMIT Student in an Organized Health Care Education/Training Program; ATTEND Student in an Organized Health Care Education/Training Program
PROC: 5A1D70Z Performance of Urinary Filtration, Intermittent, Less than 6 Hours Per Day (ICD-10-PCS; principal; 2024-07-01)
DX: I12.0 Hypertensive chronic kidney disease with stage 5 chronic kidney disease or end stage renal disease (principal); N18.6 End stage renal disease; N25.81 Secondary hyperparathyroidism of renal origin; E78.5 Hyperlipidemia, unspecified; M10.9 Gout, unspecified; M54.9 Dorsalgia, unspecified; E87.5 Hyperkalemia; K21.9 Gastro-esophageal reflux disease without esophagitis; E11.51 Type 2 diabetes mellitus with diabetic peripheral angiopathy without gangrene; D45 Polycythemia vera; I16.0 Hypertensive urgency; G89.29 Other chronic pain; D63.1 Anemia in chronic kidney disease; F41.1 Generalized anxiety disorder; E11.22 Type 2 diabetes mellitus with diabetic chronic kidney disease; E11.65 Type 2 diabetes mellitus with hyperglycemia; E11.42 Type 2 diabetes mellitus with diabetic polyneuropathy; Z89.411 Acquired absence of right great toe; Z89.512 Acquired absence of left leg below knee; Z89.421 Acquired absence of other right toe(s); Z86.718 Personal history of other venous thrombosis and embolism; Z86.711 Personal history of pulmonary embolism; Z91.158 Patient's noncompliance with renal dialysis for other reason; Z79.01 Long term (current) use of anticoagulants; Z99.2 Dependence on renal dialysis; Z79.899 Other long term (current) drug therapy; Z88.8 Allergy status to other drugs, medicaments and biological substances; Z91.048 Other nonmedicinal substance allergy status

== ENCOUNTER 2024-07-13 07:01 | Inpatient (IN) | payer MEDICARE, MEDICAID ==
[~2024-07-13] VITALS: Ht 195.6 cm; Wt 99.6 kg
[~2024-07-13 07:01] MED LIST changes: +AZIT500T5 PO; +CEFD1CAP9 PO; +LOSA-527 PO; +LOSA-528 PO; +METO1TAB32 PO; +NORV5TAB PO
[2024-07-13 07:49] LABS: BASO # 0.1 10^3/uL (0.0-0.2); BASO % 0.9 % (0.0-1.0); EOS # 0.4 10^3/uL (0.0-0.5); EOS % 6.3 % (0.0-3.0); HEMATOCRIT 27.2 % (42.0-52.0); HEMOGLOBIN 8.4 g/dl (13.5-17.5); LYMPH # 0.5 10^3/uL (1.5-5.0); MEAN CORPUSCULAR HEMOGLOBIN 26.8 pg (27.0-33.0); MEAN CORPUSCULAR HGB CONC 30.9 g/dl (32.0-36.5); MEAN CORPUSCULAR VOLUME 86.9 fl (80.0-96.0); MONO # 0.3 10^3/uL (0.0-0.8); MONO % 4.9 % (2.0-8.0); NEUTROPHILS # 5.6 10^3/uL (1.5-8.5); NEUTROPHILS % 80.5 % (36.0-66.0); PLATELET COUNT, AUTOMATED 313 10^3/uL (150-450); RED BLOOD COUNT 3.13 10^6/uL (4.30-6.10)
[2024-07-13 08:13] LABS: ALKALINE PHOSPHATASE 107 U/L (40-129); ALT/SGPT 11 U/L (7.0-40); AST/SGOT < 8 U/L (<34); BILIRUBIN,DIRECT 0.1 MG/DL (<0.4); BILIRUBIN,TOTAL 0.4 MG/DL (0.3-1.2); BLOOD UREA NITROGEN 69 MG/DL (9-23); CALCIUM LEVEL 8.4 MG/DL (8.3-10.6); CARBON DIOXIDE LEVEL 20 MMOL/L (20-31); CHLORIDE LEVEL 110 MMOL/L (98-107); CREATININE FOR GFR 9.72 MG/DL (0.70-1.30); GLOMERULAR FILTRATION RATE 5.8 (>49); GLUCOSE, FASTING 78 MG/DL (74-106); POTASSIUM SERUM 6.6 MMOL/L (3.5-5.1); SODIUM LEVEL 143 MMOL/L (136-145); TOTAL PROTEIN 5.8 G/DL (5.7-8.2)
[2024-07-13] MEDS: APIXABAN 5 MG TAB (ELIQUIS) PO SCH (09:00)
[2024-07-13] MEDS: HumuLIN R (REGULAR) INSULIN (NovoLIN R) **100U/ML** PER UNIT IV ONE (09:03)
[2024-07-13] MEDS: CALCIUM GLUCONATE 1,000MG/10ML VIAL (100MG/ML) IV ONE (09:03)
[2024-07-13] MEDS: DEXTROSE 50% 50ML SYRINGE IV ONE (09:04)
[2024-07-13] MEDS: SODIUM BICARBONATE 8.4% INJ 50ML SYRINGE IV ONE (09:04)
[2024-07-13] MEDS ORDERED: HOME MED LIST COMPLETE! XX SCH (09:25)
[2024-07-13] MEDS ORDERED: LOSA25TA13 PO (09:25)
[2024-07-13] MEDS ORDERED: METO1TAB32 PO (09:25)
[2024-07-13] MEDS: DEXTROSE 50% 50ML SYRINGE IV STA ×2 (09:58→10:04)
[2024-07-13] MEDS: ALBUTEROL SULFATE 2.5MG/0.5ML INH NEB SOLN INH ONE (10:04)
[2024-07-13] MEDS: PATIROMER SORBITEX CALCIUM 8.4 GM POWDER PACKET (VELTASSA) PO ONE (10:04)
[2024-07-13 11:41] LABS: CALCIUM LEVEL 8.1 MG/DL (8.3-10.6); CREATININE FOR GFR 9.29 MG/DL (0.70-1.30); GLOMERULAR FILTRATION RATE 6.1 (>49); POTASSIUM SERUM 5.7 MMOL/L (3.5-5.1)
[2024-07-13] MEDS ORDERED: SODIUM CHLORIDE 0.9% 1000 ML IV PRN (11:55)
[2024-07-13] MEDS ORDERED: LIDOCAINE 1% SDV 5ML VIAL SC PRN (11:55)
[2024-07-13] MEDS ORDERED: diphenhydrAMINE 25MG CAP PO PRN (13:05)
[2024-07-13] MEDS ORDERED: PILL CUTTER 1 EACH XX PRN (13:15)
[2024-07-13 17:00] VITALS: BP 164/80; TEMP 97.7; O2SAT 96
[2024-07-13] MEDS: PANTOPRAZOLE 40MG TAB (PROTONIX) PO SCH (18:08)
[2024-07-13] MEDS: TORSEMIDE 100 MG TAB PO SCH (18:08)
[2024-07-13] MEDS: LOSARTAN 25 MG TAB PO SCH (18:09)
[2024-07-13] MEDS: amLODIPine 5 MG TAB PO SCH (18:10)
[2024-07-13] MEDS: (RENVELA) SEVELAMER **CARBONate** 800 MG TAB PO SCH (18:10)
[2024-07-13] MEDS: ATORVASTATIN 10 MG TAB PO SCH (18:10)
[2024-07-13] MEDS: ACETAMINOPHEN 500 MG TAB PO ONE (18:11)
[2024-07-13] MEDS: METOPROLOL SUCC *XL* 25MG TAB (TopROL *XL*) PO SCH (18:15)
[2024-07-13 20:01] VITALS: BP 157/80; TEMP 98.2; O2SAT 95
[2024-07-13] MEDS: LIDOCAINE 5% (LIDODERM) PATCH TD SCH (23:06)
[2024-07-13] MEDS: traMADol 50 MG TAB PO ONE (23:06)
[2024-07-13] MEDS: oxyCODONE 5MG TAB PO ONE (23:26)
[2024-07-14 04:09] VITALS: BP 154/78; TEMP 97.9; O2SAT 96
[2024-07-14] MEDS ORDERED: HEPARIN 1,000UNITS/ML 10ML VIAL (FOR RADIOLOGY & DIALYSIS ONLY) IV PRN (06:00)
[2024-07-14] MEDS ORDERED: LIDOCAINE 1% SDV 5ML VIAL SC PRN (06:00)
[2024-07-14] MEDS ORDERED: SODIUM CHLORIDE 0.9% 1000 ML IV PRN (06:00)
[2024-07-14] MEDS: ACETAMINOPHEN 500 MG TAB PO PRN (06:06)
[2024-07-14] MEDS: HEPARIN 1,000UNITS/ML 10ML VIAL (FOR RADIOLOGY & DIALYSIS ONLY) XX SCH (10:20)
[2024-07-14] MEDS: oxyCODONE 5MG TAB PO PRN (10:51)
[2024-07-14 13:09] VITALS: BP 162/82; TEMP 97.3; O2SAT 96
[2024-07-14] MEDS ORDERED: ACETAMINOPHEN 500 MG TAB PO ONE (16:00)
[2024-07-14 21:07] VITALS: BP 157/75; TEMP 97.9; O2SAT 98
[2024-07-15 05:01] VITALS: BP 183/100; TEMP 97.7; O2SAT 96
[2024-07-15] MEDS: LOSARTAN 50MG TABLET PO SCH (05:35)
[2024-07-15] MEDS ORDERED: LIDOCAINE 1% SDV 5ML VIAL SC PRN (06:00)
[2024-07-15] MEDS ORDERED: SODIUM CHLORIDE 0.9% 1000 ML IV PRN (06:00)
[2024-07-15] MEDS ORDERED: HEPARIN 1,000UNITS/ML 10ML VIAL (FOR RADIOLOGY & DIALYSIS ONLY) IV PRN (06:00)
[2024-07-15 06:45] VITALS: BP 162/82
[2024-07-15] MEDS ORDERED: LOSARTAN 25 MG TAB PO SCH (09:00)
[2024-07-15] MEDS: HEPARIN 1,000UNITS/ML 10ML VIAL (FOR RADIOLOGY & DIALYSIS ONLY) XX SCH (09:21)
[2024-07-15 12:10] VITALS: BP 167/98; TEMP 97.4; O2SAT 99
[2024-07-15] MEDS: AUGMENTIN 500MG TAB PO SCH (15:01)
[2024-07-15] MEDS ORDERED: ACETAMINOPHEN 500 MG TAB PO SCH (16:00)
[2024-07-15 20:00] VITALS: BP 163/92; TEMP 98; O2SAT 98
[2024-07-15] MEDS: PREGABALIN 25 MG CAP (LYRICA) PO ONE (22:03)
[2024-07-16 04:00] VITALS: BP 163/90; TEMP 97.5; O2SAT 97
[2024-07-16 08:49] LABS: HEMATOCRIT 28.6 % (42.0-52.0); HEMOGLOBIN 8.7 g/dl (13.5-17.5); MEAN CORPUSCULAR HEMOGLOBIN 26.5 pg (27.0-33.0); MEAN CORPUSCULAR HGB CONC 30.4 g/dl (32.0-36.5); MEAN CORPUSCULAR VOLUME 87.2 fl (80.0-96.0); PLATELET COUNT, AUTOMATED 261 10^3/uL (150-450); RED BLOOD COUNT 3.28 10^6/uL (4.30-6.10); WHITE BLOOD COUNT 6.5 10^3/uL (4.0-10.0)
[2024-07-16 09:21] LABS: CALCIUM LEVEL 8.5 MG/DL (8.3-10.6); CREATININE FOR GFR 4.22 MG/DL (0.70-1.30); GLOMERULAR FILTRATION RATE 15.3 (>49); POTASSIUM SERUM 4.5 MMOL/L (3.5-5.1)
[2024-07-16 12:00] VITALS: BP 159/89; TEMP 97.7; O2SAT 99
[2024-07-16 21:11] VITALS: BP 156/88; TEMP 97.5; O2SAT 99
[2024-07-16] MEDS: PANTOPRAZOLE 40MG TAB (PROTONIX) PO SCH (22:05)
[2024-07-16] MEDS: PREGABALIN 25 MG CAP (LYRICA) PO SCH (22:06)
[2024-07-17 04:09] VITALS: BP 158/89; TEMP 97.7; O2SAT 99
[2024-07-17 06:08] LABS: HEMATOCRIT 27.6 % (42.0-52.0); HEMOGLOBIN 8.2 g/dl (13.5-17.5); MEAN CORPUSCULAR HEMOGLOBIN 26.2 pg (27.0-33.0); MEAN CORPUSCULAR HGB CONC 29.7 g/dl (32.0-36.5); MEAN CORPUSCULAR VOLUME 88.2 fl (80.0-96.0); PLATELET COUNT, AUTOMATED 264 10^3/uL (150-450); RED BLOOD COUNT 3.13 10^6/uL (4.30-6.10); WHITE BLOOD COUNT 7.4 10^3/uL (4.0-10.0)
[2024-07-17 06:39] LABS: CALCIUM LEVEL 8.8 MG/DL (8.3-10.6); CREATININE FOR GFR 5.19 MG/DL (0.70-1.30); POTASSIUM SERUM 5.1 MMOL/L (3.5-5.1)
[2024-07-17 12:00] VITALS: TEMP 98.2; O2SAT 94
[2024-07-17 19:00] VITALS: BP 161/90
[2024-07-17 20:01] VITALS: BP 166/98; TEMP 97.7; O2SAT 98
[2024-07-18 03:58] VITALS: BP 155/92; TEMP 97.5; O2SAT 95
[2024-07-18 05:58] LABS: HEMATOCRIT 28.6 % (42.0-52.0); HEMOGLOBIN 8.6 g/dl (13.5-17.5); MEAN CORPUSCULAR HEMOGLOBIN 26.6 pg (27.0-33.0); MEAN CORPUSCULAR HGB CONC 30.1 g/dl (32.0-36.5); MEAN CORPUSCULAR VOLUME 88.5 fl (80.0-96.0); PLATELET COUNT, AUTOMATED 269 10^3/uL (150-450); RED BLOOD COUNT 3.23 10^6/uL (4.30-6.10); WHITE BLOOD COUNT 7.6 10^3/uL (4.0-10.0)
[2024-07-18] MEDS ORDERED: SODIUM CHLORIDE 0.9% 1000 ML IV PRN (06:00)
[2024-07-18] MEDS ORDERED: HEPARIN 1,000UNITS/ML 10ML VIAL (FOR RADIOLOGY & DIALYSIS ONLY) IV PRN (06:00)
[2024-07-18 06:25] LABS: CALCIUM LEVEL 8.9 MG/DL (8.3-10.6); CREATININE FOR GFR 6.33 MG/DL (0.70-1.30); GLOMERULAR FILTRATION RATE 9.6 (>49); POTASSIUM SERUM 5.3 MMOL/L (3.5-5.1)
[2024-07-18] MEDS: HEPARIN 1,000UNITS/ML 10ML VIAL (FOR RADIOLOGY & DIALYSIS ONLY) XX SCH (09:31)
[2024-07-18] MEDS: DARBEPOETIN 200MCG/0.4ML *DIALYSIS* SYRINGE IV SCH (09:32)
[2024-07-18 12:00] VITALS: BP 148/89; TEMP 97.5; O2SAT 95
[2024-07-18] MEDS ORDERED: PANT40TA29 PO (14:40)
[2024-07-18] MEDS ORDERED: PREG25CA PO (14:40)
[2024-07-18] MEDS ORDERED: TOPR50TA PO (14:43)
[2024-07-18 21:00] VITALS: BP 163/61; TEMP 97.7; O2SAT 99
[2024-07-19 05:42] VITALS: BP 151/89; TEMP 97.7; O2SAT 99
[2024-07-19 05:56] LABS: HEMATOCRIT 25.3 % (42.0-52.0); HEMOGLOBIN 7.6 g/dl (13.5-17.5); MEAN CORPUSCULAR HEMOGLOBIN 26.5 pg (27.0-33.0); MEAN CORPUSCULAR VOLUME 88.2 fl (80.0-96.0); PLATELET COUNT, AUTOMATED 251 10^3/uL (150-450); RED BLOOD COUNT 2.87 10^6/uL (4.30-6.10)
[2024-07-19 06:27] LABS: CALCIUM LEVEL 8.8 MG/DL (8.3-10.6); CREATININE FOR GFR 4.89 MG/DL (0.70-1.30); GLOMERULAR FILTRATION RATE 12.9 (>49); POTASSIUM SERUM 4.8 MMOL/L (3.5-5.1)
[2024-07-19 12:00] VITALS: BP 175/99; TEMP 97.7; O2SAT 99
[2024-07-19 18:55] VITALS: O2SAT 99
[2024-07-19 20:02] VITALS: BP 167/96; TEMP 97.9; O2SAT 98
[2024-07-20 05:30] VITALS: BP 162/95; TEMP 97.5; O2SAT 100
[2024-07-20] MEDS ORDERED: SODIUM CHLORIDE 0.9% 1000 ML IV PRN (06:00)
[2024-07-20] MEDS ORDERED: HEPARIN 1,000UNITS/ML 10ML VIAL (FOR RADIOLOGY & DIALYSIS ONLY) IV PRN (06:00)
[2024-07-20 06:19] LABS: HEMATOCRIT 25.1 % (42.0-52.0); HEMOGLOBIN 7.7 g/dl (13.5-17.5); MEAN CORPUSCULAR HEMOGLOBIN 27.4 pg (27.0-33.0); MEAN CORPUSCULAR HGB CONC 30.7 g/dl (32.0-36.5); MEAN CORPUSCULAR VOLUME 89.3 fl (80.0-96.0); PLATELET COUNT, AUTOMATED 268 10^3/uL (150-450); RED BLOOD COUNT 2.81 10^6/uL (4.30-6.10)
[2024-07-20 06:46] LABS: CALCIUM LEVEL 8.7 MG/DL (8.3-10.6); CREATININE FOR GFR 6.08 MG/DL (0.70-1.30); PHOSPHORUS LEVEL 6.7 MG/DL (2.4-5.1); POTASSIUM SERUM 5.2 MMOL/L (3.5-5.1)
[2024-07-20 08:16] LABS: PERCENT SATURATION 10.1 % (19.7-50.0)
[2024-07-20] MEDS: TORSEMIDE 100 MG TAB PO SCH (08:25)
[2024-07-20] MEDS: HEPARIN 1,000UNITS/ML 10ML VIAL (FOR RADIOLOGY & DIALYSIS ONLY) XX SCH (10:01)
[2024-07-20] MEDS: IRON SUCROSE 100MG 5ML VIAL IV SCH (10:02)
[2024-07-20 16:00] VITALS: BP 131/64; TEMP 97.7; O2SAT 97
[2024-07-21 05:36] VITALS: BP 159/97; TEMP 97.7; O2SAT 97
[2024-07-21 05:56] LABS: HEMATOCRIT 23.7 % (42.0-52.0); HEMOGLOBIN 7.2 g/dl (13.5-17.5); MEAN CORPUSCULAR HEMOGLOBIN 26.9 pg (27.0-33.0); MEAN CORPUSCULAR HGB CONC 30.4 g/dl (32.0-36.5); MEAN CORPUSCULAR VOLUME 88.4 fl (80.0-96.0); PLATELET COUNT, AUTOMATED 278 10^3/uL (150-450); RED BLOOD COUNT 2.68 10^6/uL (4.30-6.10); WHITE BLOOD COUNT 5.3 10^3/uL (4.0-10.0)
[2024-07-21 06:23] LABS: CALCIUM LEVEL 9.1 MG/DL (8.3-10.6); CREATININE FOR GFR 4.65 MG/DL (0.70-1.30); GLOMERULAR FILTRATION RATE 13.6 (>49); POTASSIUM SERUM 5.2 MMOL/L (3.5-5.1)
[2024-07-21 09:15] VITALS: BP 161/96
[2024-07-21 12:04] VITALS: BP 182/70; TEMP 97.7; O2SAT 94
[2024-07-21 12:19] VITALS: BP 184/72; TEMP 97.3; O2SAT 100
[2024-07-21] MEDS: PATIROMER SORBITEX CALCIUM 8.4 GM POWDER PACKET (VELTASSA) PO ONE (13:07)
[2024-07-21 13:09] VITALS: BP 177/75; TEMP 97.3; O2SAT 100
[2024-07-21 13:55] VITALS: BP 154/84; TEMP 97.4; O2SAT 97
[2024-07-21 15:42] LABS: FERRITIN 70.2 NG/ML (10.5-307.3)
== END 2024-07-21 14:45 | disposition home or self-care (01) | DRG 640 ==
LOC: EDBD 07:01 → M ED 08:38 → M ED INP 10:57 → M MSPAV 16:53
PROVIDERS: ADMIT Student in an Organized Health Care Education/Training Program; ATTEND Student in an Organized Health Care Education/Training Program
PROC: 5A1D70Z Performance of Urinary Filtration, Intermittent, Less than 6 Hours Per Day (ICD-10-PCS; 2024-07-15)
PROC: 30233N1 Transfusion of Nonautologous Red Blood Cells into Peripheral Vein, Percutaneous Approach (ICD-10-PCS; principal; 2024-07-21)
DX: E87.70 Fluid overload, unspecified (principal); N18.6 End stage renal disease; I12.0 Hypertensive chronic kidney disease with stage 5 chronic kidney disease or end stage renal disease; G89.29 Other chronic pain; E78.5 Hyperlipidemia, unspecified; M10.9 Gout, unspecified; K21.9 Gastro-esophageal reflux disease without esophagitis; Z96.651 Presence of right artificial knee joint; E87.5 Hyperkalemia; Z79.01 Long term (current) use of anticoagulants; Z79.899 Other long term (current) drug therapy; Z88.8 Allergy status to other drugs, medicaments and biological substances; Z91.048 Other nonmedicinal substance allergy status; Z99.2 Dependence on renal dialysis; Z89.421 Acquired absence of other right toe(s); Z95.818 Presence of other cardiac implants and grafts; Z89.512 Acquired absence of left leg below knee; M54.50 Low back pain, unspecified; Z91.158 Patient's noncompliance with renal dialysis for other reason; Z91.118 Patient's noncompliance with dietary regimen for other reason; D45 Polycythemia vera; E21.1 Secondary hyperparathyroidism, not elsewhere classified; E16.2 Hypoglycemia, unspecified; D63.1 Anemia in chronic kidney disease

== ENCOUNTER 2024-09-26 18:30 | Observation (INO) | payer MEDICARE, MEDICAID ==
[~2024-09-26] VITALS: Ht 195.6 cm; Wt 105.1 kg
[~2024-09-26 18:30] MED LIST changes: +BUPR150T15 PO; -BUPR1TAB53 PO; -GLUC1KIT IM; +GLUC1VIA14 IM; -HYDR500C PO; +HYDR500C20 PO; +LIDO1ADH93 TD; +LIDO1ADH93 TOP; -LIDO5DIS41 TD; -LIDO5DIS41 TOP; +LOSA25TA13 PO; +PREG25CA63 PO; -PREG50CA PO; +PREG50CA87 PO; +TOPR50TA PO
[2024-09-26 19:58] LABS: BASO # 0.1 10^3/uL (0.0-0.2); BASO % 0.7 % (0.0-1.0); EOS # 0.5 10^3/uL (0.0-0.5); HEMATOCRIT 31.4 % (42.0-52.0); HEMOGLOBIN 9.7 g/dl (13.5-17.5); LYMPH # 0.6 10^3/uL (1.5-5.0); LYMPH % 5.6 % (24.0-44.0); MEAN CORPUSCULAR HEMOGLOBIN 26.5 pg (27.0-33.0); MEAN CORPUSCULAR HGB CONC 30.9 g/dl (32.0-36.5); MEAN CORPUSCULAR VOLUME 85.8 fl (80.0-96.0); MONO # 0.5 10^3/uL (0.0-0.8); MONO % 5.1 % (2.0-8.0); NEUTROPHILS # 8.4 10^3/uL (1.5-8.5); NEUTROPHILS % 81.8 % (36.0-66.0); PLATELET COUNT, AUTOMATED 315 10^3/uL (150-450); RED BLOOD COUNT 3.66 10^6/uL (4.30-6.10); WHITE BLOOD COUNT 10.2 10^3/uL (4.0-10.0)
[2024-09-26] MEDS: HYDROMORPHONE HCL 0.5 MG/ 0.5 ML SYRINGE IV ONE (20:18)
[2024-09-26] MEDS: amLODIPine 5 MG TAB PO ONE (20:19)
[2024-09-26] MEDS ORDERED: PILL CUTTER 1 EACH XX ONE (21:42)
[2024-09-26] MEDS: HYDROmorphone 2 MG TAB PO ONE (21:44)
[2024-09-26 22:09] LABS: ALKALINE PHOSPHATASE 113 U/L (40-129); ALT/SGPT < 9 U/L (7.0-40); AST/SGOT 9 U/L (<34); BILIRUBIN,DIRECT 0.2 MG/DL (<0.4); BILIRUBIN,TOTAL 0.4 MG/DL (0.3-1.2); BLOOD UREA NITROGEN 63 MG/DL (9-23); CALCIUM LEVEL 8.8 MG/DL (8.3-10.6); CARBON DIOXIDE LEVEL 25 MMOL/L (20-31); CHLORIDE LEVEL 101 MMOL/L (98-107); GLOMERULAR FILTRATION RATE 5.6 (>49); GLUCOSE, FASTING 80 MG/DL (74-106); POTASSIUM SERUM 5.8 MMOL/L (3.5-5.1); SODIUM LEVEL 139 MMOL/L (136-145)
[2024-09-26] MEDS: diazePAM 10MG/2ML SYRINGE IV ONE (22:19)
[2024-09-26] MEDS: PATIROMER SORBITEX CALCIUM 8.4GM POWDER PACKET PO ONE (22:38)
[2024-09-26] MEDS: CALCIUM GLUCONATE 1,000 MG in DEXTROSE 5% (D5W) MINI-BAG PLU 100 ML IV ONE (22:38)
[2024-09-27 00:40] LABS: CALCIUM LEVEL 8.9 MG/DL (8.3-10.6); CREATININE FOR GFR 9.67 MG/DL (0.70-1.30); GLOMERULAR FILTRATION RATE 5.5 (>49); POTASSIUM SERUM 5.5 MMOL/L (3.5-5.1)
[2024-09-27] MEDS: HYDROmorphone 2 MG TAB PO ONE ×2 (02:10→06:15)
[2024-09-27] MEDS ORDERED: METO1TAB7 PO (03:25)
[2024-09-27] MEDS ORDERED: HOME MED LIST COMPLETE! XX SCH (03:25)
[2024-09-27] MEDS ORDERED: OXYC10TA12 PO (03:25)
[2024-09-27] MEDS ORDERED: CETI5TAB2 PO (03:25)
[2024-09-27] MEDS: oxyCODONE 5MG TAB PO PRN (07:58)
[2024-09-27] MEDS: METOPROLOL SUCC. 50MG *XL* TAB PO SCH (09:23)
[2024-09-27] MEDS: amLODIPine 5 MG TAB PO SCH (09:23)
[2024-09-27 09:53] VITALS: BP 198/96; TEMP 98; O2SAT 94
[2024-09-27] MEDS: APIXABAN 5 MG TAB PO SCH (10:43)
[2024-09-27] MEDS: CETIRIZINE 5 MG/5 ML UDC DYE FREE PO SCH (10:43)
[2024-09-27] MEDS: PANTOPRAZOLE 40MG TAB PO SCH (10:43)
[2024-09-27] MEDS: SEVELAMER *CARBONate* 800 MG TAB PO SCH (10:43)
[2024-09-27] MEDS: ATORVASTATIN 10 MG TAB PO SCH (10:47)
[2024-09-27] MEDS ORDERED: SODIUM CHLORIDE 0.9% 1000 ML IV PRN (10:50)
[2024-09-27] MEDS ORDERED: HEPARIN 1,000UNITS/ML 10ML VIAL (FOR RADIOLOGY & DIALYSIS ONLY) IV PRN (10:50)
[2024-09-27 11:06] VITALS: BP 163/95; TEMP 98; O2SAT 94
[2024-09-27] MEDS: HEPARIN 1,000UNITS/ML 10ML VIAL (FOR RADIOLOGY & DIALYSIS ONLY) XX SCH (13:00)
[2024-09-27 15:54] VITALS: BP 146/62; TEMP 97.4; O2SAT 94
[2024-09-27 19:58] VITALS: BP 179/86; TEMP 98.9; O2SAT 91
[2024-09-28] VITALS: BP 179/86; TEMP 98.9; O2SAT 91
[2024-09-28] MEDS: guaiFENesin SYRUP 200MG 10ML UDC PO ONE (01:43)
[2024-09-28 04:00] VITALS: BP 179/86; TEMP 99; O2SAT 91
[2024-09-28 04:13] VITALS: BP 192/103; TEMP 98; O2SAT 97
[2024-09-28] MEDS: ACETAMINOPHEN 325 MG TAB PO ONE (05:26)
[2024-09-28 06:14] LABS: ALBUMIN 2.9 G/DL (3.2-5.2); ALKALINE PHOSPHATASE 108 U/L (40-129); ALT/SGPT < 9 U/L (7.0-40); AST/SGOT 9 U/L (<34); BILIRUBIN,TOTAL 0.5 MG/DL (0.3-1.2); BLOOD UREA NITROGEN 42 MG/DL (9-23); CALCIUM LEVEL 8.6 MG/DL (8.3-10.6); CARBON DIOXIDE LEVEL 23 MMOL/L (20-31); CHLORIDE LEVEL 102 MMOL/L (98-107); CREATININE FOR GFR 6.68 MG/DL (0.70-1.30); GLOMERULAR FILTRATION RATE 8.6 (>49); GLUCOSE, FASTING 116 MG/DL (74-106); POTASSIUM SERUM 5.1 MMOL/L (3.5-5.1); SODIUM LEVEL 138 MMOL/L (136-145); TOTAL PROTEIN 5.8 G/DL (5.7-8.2)
[2024-09-28 07:52] VITALS: BP 168/84; TEMP 98.6; O2SAT 96
[2024-09-28 16:00] VITALS: BP 156/84; TEMP 98; O2SAT 96
[2024-09-28 20:30] VITALS: BP 158/62; TEMP 98.3; O2SAT 97
[2024-09-29] MEDS: guaiFENesin SYRUP 200MG 10ML UDC PO ONE (01:20)
[2024-09-29 03:17] VITALS: BP 158/78; TEMP 98.6; O2SAT 98
[2024-09-29 04:00] VITALS: BP 158/78; TEMP 98.6; O2SAT 98
[2024-09-29] MEDS ORDERED: SODIUM CHLORIDE 0.9% 1000 ML IV PRN (06:00)
[2024-09-29] MEDS ORDERED: HEPARIN 1,000UNITS/ML 10ML VIAL (FOR RADIOLOGY & DIALYSIS ONLY) XX SCH (06:00)
[2024-09-29 07:45] VITALS: BP 156/84; TEMP 98.2; O2SAT 99
[2024-09-29] MEDS: HEPARIN 1,000UNITS/ML 10ML VIAL (FOR RADIOLOGY & DIALYSIS ONLY) IV PRN (10:08)
[2024-09-29] MEDS: DARBEPOETIN 100MCG/0.5ML *DIALYSIS* SYRINGE IV SCH (11:54)
[2024-09-29 15:56] VITALS: BP 160/68; TEMP 97.6; O2SAT 97
[2024-09-29 20:06] VITALS: BP 160/80; TEMP 98.3; O2SAT 97
[2024-09-29 23:46] VITALS: BP 159/88; TEMP 98.3; O2SAT 98
[2024-09-30 03:38] VITALS: BP 160/85; TEMP 98.2; O2SAT 100
[2024-09-30 07:38] VITALS: BP 170/88; TEMP 98.9; O2SAT 100
[2024-09-30 08:39] VITALS: BP 170/88
== END 2024-09-30 11:30 | disposition home or self-care (01) ==
LOC: M ED 18:30 → EDBD 18:30 → M ED INP 09-27 07:32 → M PCU 09-27 09:35
PROVIDERS: ADMIT Student in an Organized Health Care Education/Training Program; ATTEND Student in an Organized Health Care Education/Training Program
DX: N18.6 End stage renal disease (principal); Z99.2 Dependence on renal dialysis; E87.5 Hyperkalemia; R79.89 Other specified abnormal findings of blood chemistry; N17.9 Acute kidney failure, unspecified; R29.6 Repeated falls; M79.606 Pain in leg, unspecified; R10.30 Lower abdominal pain, unspecified; E87.70 Fluid overload, unspecified; R06.2 Wheezing; J02.9 Acute pharyngitis, unspecified; J34.89 Other specified disorders of nose and nasal sinuses; B97.89 Other viral agents as the cause of diseases classified elsewhere; B97.10 Unspecified enterovirus as the cause of diseases classified elsewhere; D63.1 Anemia in chronic kidney disease; R60.0 Localized edema; Z89.512 Acquired absence of left leg below knee; Z89.431 Acquired absence of right foot; I10 Essential (primary) hypertension; E11.22 Type 2 diabetes mellitus with diabetic chronic kidney disease; E11.42 Type 2 diabetes mellitus with diabetic polyneuropathy; R21 Rash and other nonspecific skin eruption; G62.9 Polyneuropathy, unspecified; R56.9 Unspecified convulsions; L29.9 Pruritus, unspecified; M19.90 Unspecified osteoarthritis, unspecified site; M54.9 Dorsalgia, unspecified; G89.4 Chronic pain syndrome; R53.81 Other malaise; E78.5 Hyperlipidemia, unspecified; M47.812 Spondylosis without myelopathy or radiculopathy, cervical region; Z86.711 Personal history of pulmonary embolism; Z86.718 Personal history of other venous thrombosis and embolism; G47.33 Obstructive sleep apnea (adult) (pediatric); M10.9 Gout, unspecified; D47.1 Chronic myeloproliferative disease; D45 Polycythemia vera; K21.9 Gastro-esophageal reflux disease without esophagitis; Z96.651 Presence of right artificial knee joint; R07.9 Chest pain, unspecified; R00.2 Palpitations; Z91.048 Other nonmedicinal substance allergy status; Z88.8 Allergy status to other drugs, medicaments and biological substances; Z79.899 Other long term (current) drug therapy; Z79.01 Long term (current) use of anticoagulants
CPT/HCPCS: 36415; 70450; 71045; 71250; 72125; 73502; 74176; 80048; 80053; 82248; 85025; 87486; 87581; 87633; 87798; 93005; 96374; 96375; 99285; G0257; G0378; J0288; J0612; J1171; J3360

== ENCOUNTER 2025-02-28 11:23 | Observation (INO) | payer MEDICARE, MEDICAID ==
[~2025-02-28] VITALS: Ht 193 cm; Wt 104.9 kg
[~2025-02-28 11:23] MED LIST changes: +LISI40TA10 PO; -LISI40TA4 PO; +METO1TAB7 PO
[2025-02-28] MEDS ORDERED: HEPARIN 1,000 UNITS/ML 10 ML VIAL (FOR RADIOLOGY & DIALYSIS ONLY) IV PRN (13:10)
[2025-02-28] MEDS ORDERED: SODIUM CHLORIDE 0.9% 1000 ML IV PRN (13:10)
[2025-02-28] MEDS ORDERED: GABA-1171 PO (13:48)
[2025-02-28 14:24] LABS: BASO # 0.1 10^3/uL (0.0-0.2); BASO % 0.8 % (0.0-1.0); EOS # 0.7 10^3/uL (0.0-0.5); EOS % 8.7 % (0.0-3.0); LYMPH # 0.8 10^3/uL (1.5-5.0); LYMPH % 9.7 % (24.0-44.0); MONO # 0.4 10^3/uL (0.0-0.8); MONO % 4.5 % (2.0-8.0); NEUTROPHILS # 6.0 10^3/uL (1.5-8.5); NEUTROPHILS % 75.8 % (36.0-66.0); PLATELET COUNT, AUTOMATED 258 10^3/uL (150-450)
[2025-02-28] MEDS ORDERED: HOME MED LIST COMPLETE! XX SCH (14:30)
[2025-02-28 14:51] LABS: FREE T4 0.96 NG/DL (0.89-1.76)
[2025-02-28 14:54] LABS: CALCIUM LEVEL 8.4 MG/DL (8.3-10.6); CARBON DIOXIDE LEVEL 26.0 MMOL/L (20-31); CHLORIDE LEVEL 98.0 MMOL/L (98-107); CREATININE FOR GFR 10.64 MG/DL (0.70-1.30); GLOMERULAR FILTRATION RATE 4.9 (>49); MAGNESIUM LEVEL 2.6 MG/DL (1.8-2.4); POTASSIUM SERUM 4.8 MMOL/L (3.5-5.1); SODIUM LEVEL 137.0 MMOL/L (136-145)
[2025-02-28] MEDS ORDERED: PILL CUTTER 1 EACH XX PRN (16:50)
[2025-02-28] MEDS: cefTRIAXone SOD 1 GM in DEXTROSE 5% (D5W) ADV/MINI-BAG 50 ML IV ONE (17:12)
[2025-02-28] MEDS: DOXYCYCLINE HYCLATE 100 MG TABLET PO ONE (17:12)
[2025-02-28] MEDS: **hydrALAZINE HCL** 25 MG TAB PO PRN (17:12)
[2025-02-28] MEDS ORDERED: hydrALAZINE 20 MG/ML 1 ML VIAL IV ONE (17:35)
[2025-02-28 17:45] VITALS: BP 180/88; TEMP 97; O2SAT 96
[2025-02-28 18:03] LABS: C REACTIVE PROTEIN QUANTITATIV 0.83 MG/DL (<1.0)
[2025-02-28] MEDS: METOPROLOL SUCC. 50 MG *XL* TAB PO ONE (18:15)
[2025-02-28] MEDS: SEVELAMER *CARBONate* 800 MG TAB PO SCH (18:15)
[2025-02-28 19:03] VITALS: BP 158/70
[2025-02-28 20:00] VITALS: BP 147/73; TEMP 97.5; O2SAT 93
[2025-02-28] MEDS: APIXABAN 5 MG TAB PO SCH (20:15)
[2025-02-28] MEDS: GABAPENTIN 100 MG CAP PO SCH (20:15)
[2025-03-01 04:00] VITALS: BP 125/73; TEMP 97.3; O2SAT 95
[2025-03-01] MEDS ORDERED: HEPARIN 1,000 UNITS/ML 10 ML VIAL (FOR RADIOLOGY & DIALYSIS ONLY) XX SCH (06:00)
[2025-03-01] MEDS ORDERED: HEPARIN 1,000 UNITS/ML 10 ML VIAL (FOR RADIOLOGY & DIALYSIS ONLY) IV PRN (06:00)
[2025-03-01] MEDS ORDERED: SODIUM CHLORIDE 0.9% 1000 ML IV PRN (06:00)
[2025-03-01] MEDS: TORSEMIDE 50 MG PER 1/2 TAB PO SCH (06:02)
[2025-03-01] MEDS: amLODIPine 5 MG TAB PO SCH (06:03)
[2025-03-01] MEDS: LOSARTAN 25 MG TAB PO SCH (06:04)
[2025-03-01] MEDS: ATORVASTATIN 10 MG TAB PO SCH (06:04)
[2025-03-01] MEDS: CETIRIZINE 10 MG TAB PO SCH (06:05)
[2025-03-01 06:34] LABS: BASO # 0.1 10^3/uL (0.0-0.2); BASO % 0.8 % (0.0-1.0); EOS # 0.7 10^3/uL (0.0-0.5); EOS % 8.4 % (0.0-3.0); LYMPH # 0.8 10^3/uL (1.5-5.0); LYMPH % 9.9 % (24.0-44.0); MONO # 0.4 10^3/uL (0.0-0.8); MONO % 5.0 % (2.0-8.0); NEUTROPHILS # 6.0 10^3/uL (1.5-8.5); NEUTROPHILS % 75.3 % (36.0-66.0); PLATELET COUNT, AUTOMATED 288 10^3/uL (150-450)
[2025-03-01 07:39] LABS: CALCIUM LEVEL 8.8 MG/DL (8.3-10.6); CARBON DIOXIDE LEVEL 26.0 MMOL/L (20-31); CHLORIDE LEVEL 98.0 MMOL/L (98-107); CREATININE FOR GFR 11.48 MG/DL (0.70-1.30); GLOMERULAR FILTRATION RATE 4.5 (>49); POTASSIUM SERUM 4.9 MMOL/L (3.5-5.1); SODIUM LEVEL 138.0 MMOL/L (136-145)
[2025-03-01] MEDS: HEPARIN 1,000 UNITS/ML 10 ML VIAL (FOR RADIOLOGY & DIALYSIS ONLY) XX SCH (09:30)
[2025-03-01] MEDS: DARBEPOETIN 100 MCG/0.5 ML *DIALYSIS* SYRINGE IV SCH (09:31)
[2025-03-01] MEDS: METOPROLOL SUCC. 50 MG *XL* TAB PO SCH (13:35)
[2025-03-01 20:00] VITALS: BP 151/89; TEMP 97.5; O2SAT 96
[2025-03-02 04:00] VITALS: BP 158/85; TEMP 97.3; O2SAT 95
[2025-03-02] MEDS ORDERED: HEPARIN 1,000 UNITS/ML 10 ML VIAL (FOR RADIOLOGY & DIALYSIS ONLY) XX SCH (06:00)
[2025-03-02] MEDS ORDERED: SODIUM CHLORIDE 0.9% 1000 ML IV PRN (06:00)
[2025-03-02 06:09] VITALS: BP 158/85
[2025-03-02] MEDS: HEPARIN 1,000 UNITS/ML 10 ML VIAL (FOR RADIOLOGY & DIALYSIS ONLY) IV PRN (09:37)
[2025-03-02] MEDS ORDERED: LEVO1TAB39 PO (10:24)
[2025-03-02 11:45] LABS: HEPATITIS B SURFACE ANTIBODY POSITIVE (POSITIVE)
[2025-03-02 12:16] LABS: HEPATITIS C VIRUS ABY INDEX 0.02 INDEX (<0.8)
== END 2025-03-02 15:12 | disposition home or self-care (01) ==
LOC: EDBD 11:23 → M ED 11:23 → M ED INP 16:34 → INTOOBSV 16:34 → M MSPAV 17:43
PROVIDERS: ADMIT Internal Medicine; ATTEND Internal Medicine
DX: N18.6 End stage renal disease (principal); Z99.2 Dependence on renal dialysis; Z91.158 Patient's noncompliance with renal dialysis for other reason; R53.1 Weakness; R25.2 Cramp and spasm; R05.8 Other specified cough; D63.1 Anemia in chronic kidney disease; I12.0 Hypertensive chronic kidney disease with stage 5 chronic kidney disease or end stage renal disease; E78.5 Hyperlipidemia, unspecified; I73.9 Peripheral vascular disease, unspecified; Z89.512 Acquired absence of left leg below knee; G62.9 Polyneuropathy, unspecified; G89.4 Chronic pain syndrome; L29.9 Pruritus, unspecified; M10.9 Gout, unspecified; G47.33 Obstructive sleep apnea (adult) (pediatric); Z96.651 Presence of right artificial knee joint; Z89.431 Acquired absence of right foot; R26.2 Difficulty in walking, not elsewhere classified; Z86.718 Personal history of other venous thrombosis and embolism; Z86.711 Personal history of pulmonary embolism; Z86.14 Personal history of Methicillin resistant Staphylococcus aureus infection; Z83.3 Family history of diabetes mellitus; Z82.49 Family history of ischemic heart disease and other diseases of the circulatory system; Z84.19 Family history of other disorders of kidney and ureter; Z88.8 Allergy status to other drugs, medicaments and biological substances; Z91.048 Other nonmedicinal substance allergy status; Z79.899 Other long term (current) drug therapy; Z79.01 Long term (current) use of anticoagulants; Z11.59 Encounter for screening for other viral diseases
CPT/HCPCS: 36415; 71045; 80048; 83735; 84145; 84439; 84443; 85025; 86140; 86704; 86705; 86706; 86803; 87040; 87340; 87486; 87581; 87633; 87798; 90935; 93005; 93041; 94760; 96365; 96375; 99285; G0257; G0378; J0696; J0882

== ENCOUNTER 2025-03-27 14:15 | Outpatient (RCR) | payer MEDICARE, MEDICAID ==
[~2025-03-27 14:15] MED LIST changes: -HYDR500C20 PO; +HYDR500C23 PO
== END 2025-04-23 ==
LOC: M PT 14:15
PROVIDERS: ATTEND Family Medicine Addiction Medicine
DX: Z89.512 Acquired absence of left leg below knee (principal)